=== PATIENT | female | born 1960 | race Caucasian/White ===

== ENCOUNTER 2021-11-21 12:22 | Emergency (ER) | payer MEDICARE, BC, SELFPAY ==
[2021-11-21 12:34] VITALS: BP 110/63; PULSE 63; RESP 16; TEMP 36.3; O2SAT 98; BMI 22.2
--- NOTE | 2021-11-21 13:24 | CRLHL7_ITS ---
For Patients: As a result of the Century Cures Act, medical imaging exams and procedure reports are released immediately into your electronic medical record. You may view this report before your referring provider. If you have questions, please contact your health care provider. Indication: Trauma. Technique: Left foot, 3 views. Comparison: None. Findings: Bones: Nondisplaced oblique fracture through the proximal 4th phalanx. No apparent extension to the articular surfaces. Joint spaces: Unremarkable. Soft tissues: Soft tissue swelling surrounding the fracture site.. Impression: Oblique nondisplaced fracture of the 4th proximal phalanx. Dictated by Lela Edmond MD @ 11/21/2021 2:02:26 PM (Electronically Signed)
--- NOTE | 2021-11-21 13:29 | ED.GENADULT ---
HPI - General Adult General Time Seen by Provider: 13:30 Date Seen: 11/21/21 Chief complaint: Extremity Pain/Injury, Lower Stated complaint: poss broken left foot Time Seen by Provider: 11/21/21 12:24 Source: patient Mode of arrival: ambulatory Limitations: no limitations History of Present Illness HPI narrative: Patient is a 61-year-old female who ran in to a wheelchair wheel with her left foot. Has some pain in her toes 2nd 3rd and 4th, but mostly in her distal top of her foot. This happened a couple hours ago. Presents to the ED for evaluation. No other injuries. No history of foot injury Related Data Home Medications Medication Instructions Recorded Confirmed clobetasol 0.05 % topical ointment TOPICAL 11/21/21 diclofenac sodium 1 % topical gel TOPICAL 11/21/21 estradiol 0.01% (0.1 mg/gram) VAGINAL 11/21/21 vaginal cream estradiol 0.5 mg tablet mg 11/21/21 liothyronine 5 mcg tablet mcg 11/21/21 trazodone 50 mg tablet mg 11/21/21 Allergies Allergy/AdvReac Type Severity Reaction Status Date / Time goldshots Allergy Severe Anaphylaxis Uncoded 11/21/21 12:52 Review of Systems Status of ROS: Reports: other Narrative: Negative for foot injury, open wound, nonhealing, skin problems. PFSH PFSH Social History Smoking Status: Never smoker Do you use any of these nicotine containing products: None Second hand tobacco smoke exposure: No How often do you have a drink containing alcohol: monthly or less How many standard drinks containing alcohol do you have on a typical day: 1 or 2 How often do you have six or more drinks on one occasion: Never AUDIT-C Alcohol total score: 1 Non-prescribed substance use: denies use service: No Exam Narrative: Exam Narrative: Objective: Patient has some mild tenderness over 2nd 3rd and 4th toe on the left no open wounds no bruising some mild tenderness over the dorsum of her foot., range of motion of the ankle is normal Const: Vital Signs, click to edit/add: Vital Signs - 24 hr 11/21/21 12:34 Temperature 97.3 F L Pulse Rate [Left R adial] 63 Respiratory Rate 16 Blood Pressure [Le ft Upper Arm] 110/63 Pulse Oximetry 98 Course Course Hospital Course: X-ray left foot Vital Signs Vital signs: Initial Vital Signs Temperature 97.3 F L 11/21/21 12:34 Temperature Source Temporal Artery Scan 11/21/21 12:34 Pulse Rate 63 11/21/21 12:34 Pulse Rhythm 11/21/21 12:34 Respiratory Rate 16 11/21/21 12:34 Blood Pressure 110/63 11/21/21 12:34 Blood Pressure Mean 78 11/21/21 12:34 Blood Pressure Position Sitting 11/21/21 12:34 Pulse Oximetry 98 11/21/21 12:34 Oxygen Delivery Method 11/21/21 12:34 Vital Signs Temperature 97.3 F L 11/21/21 12:34 Pulse Rate 63 11/21/21 12:34 Respiratory Rate 16 11/21/21 12:34 Blood Pressure 110/63 11/21/21 12:34 Pulse Oximetry 98 11/21/21 12:34 Temperature 97.3 F L 11/21/21 12:34 Pulse Rate 63 11/21/21 12:34 Respiratory Rate 16 11/21/21 12:34 Blood Pressure 110/63 11/21/21 12:34 Pulse Oximetry 98 11/21/21 12:34 Medical Decision Making MDM Narrative Medical decision making narrative: The patient has an x-ray that by my read shows a 4th proximal phalangeal fracture oblique. Nondisplaced. Would recommend crutches, firm soled shoe, recheck with primary care within the next week. Ortho referral as needed. Advil and Tylenol as needed Discharge Plan Discharge Clinical Impression: Foot injury, Closed fracture of phalanx of foot Patient Disposition: Home, Self-Care Condition: Stable Instructions: Crutch Instructions (ED), Toe Fracture (ED) Additional Instructions: Crutch walking as necessary, icing the affected area 2 to 3 times a day, Advil and Tylenol as needed, recheck with primary care in the next 5-7 days Activity Level: Light activity and Use Crutches Discharge Diet: Regular Prescriptions: No Action trazodone 50 mg tablet 0RF liothyronine 5 mcg tablet 0RF estradiol 0.5 mg tablet 0RF clobetasol 0.05 % ointment TOPICAL 0RF estradiol 0.01 % (0.1 mg/gram) cream VAGINAL 0RF diclofenac sodium 1 % gel TOPICAL 0RF Follow Up/Referrals: Nivia Bruno MD [Primary Care Provider] - Stand Alone Forms: [place] [employer] Info Instructions
[2021-11-21 14:42] LABS: SARS PCR* Negative SARS-CoV-2 (Negative)
== END 2021-11-21 14:32 | disposition home or self-care (01) ==
PROVIDERS: Emergency Provider Family Medicine; PCP Family Medicine
DX: S92.515A Nondisplaced fracture of proximal phalanx of left lesser toe(s), initial encounter for closed fracture (principal); W31.89XA Contact with other specified machinery, initial encounter
CPT/HCPCS: 73630; 87635; 99283

== ENCOUNTER 2021-11-27 11:08 | Outpatient (CLI) | payer MEDICARE, BC, SELFPAY | END 2021-11-27 11:09 | disposition home or self-care (01) | PROVIDERS: PCP Family Medicine; Visit Provider Family Medicine | DX: M51.36 Other intervertebral disc degeneration, lumbar region (principal); M54.16 Radiculopathy, lumbar region | CPT/HCPCS: 62323; J0702; Q9966 ==

== ENCOUNTER 2021-12-07 17:05 | Inpatient (IN) | payer MEDICARE, BC, SELFPAY ==
[2021-12-07 17:17] VITALS: BP 107/68; PULSE 85; RESP 18; TEMP 36.1; O2SAT 100; BMI 22.2
--- NOTE | 2021-12-07 17:29 | ED_ITS ---
HPI - General Adult General Time Seen by Provider: 17:29 Date Seen: 12/07/21 Chief complaint: Nausea/Vomiting Stated complaint: weakness Time Seen by Provider: 12/07/21 17:10 Source: patient History of Present Illness HPI narrative: Juliette is a 61-year-old female past medical history includes depression anxiety, chronic pain syndrome, fibromyalgia, C diff and diverticulitis, constipation, rheumatoid arthritis presents emerged department via private car with nausea vomiting. Patient states that 2 nights ago she developed some increased diarrhea, 4-5 times, watery nonbloody, as well as left lower quadrant abdominal pain, pain is been constant nonradiating, her oral intake has decreased due to this and she has become more weak, she denies any urinary complaints. Denies any fevers or chills, no upper respiratory complaints. She did vomit an hour and a half ago. Pain is 5/10. Constant dull and feels like her diverticulitis in the past. He has not taken anything for it. Due to the worsening weakness she presents emerged department. Related Data Home Medications Medication Instructions Recorded Confirmed clobetasol 0.05 % topical ointment 1 applic topical .qod 11/21/21 12/07/21 estradiol 0.5 mg tablet 0.5 mg PO DAILY 11/21/21 12/07/21 liothyronine 5 mcg tablet 5 mcg PO .B.i.d. 11/21/21 12/07/21 trazodone 50 mg tablet 50 mg PO HS 11/21/21 12/07/21 lorazepam 0.5 mg tablet 0.5 mg PO Q12H PRN 12/08/21 12/08/21 melatonin 3 mg capsule 9 mg PO HS 12/08/21 12/08/21 sertraline 25 mg tablet 25 mg PO Q24H 12/08/21 12/08/21 Previous Rx's Medication Instructions Recorded Lactobacillus acidophilus 0.5 mg 1 tab PO TIDWM 90 days #90 tabs 12/10/21 (100 million cell) tablet hydromorphone 2 mg tablet 2 mg PO Q4H PRN 5 days #30 tabs 12/10/21 ondansetron 4 mg disintegrating 4 mg PO Q6H PRN nausea and 12/10/21 tablet vomiting #10 tabs Allergies Allergy/AdvReac Type Severity Reaction Status Date / Time auranofin Allergy Verified 11/27/21 11:42 cat dander Allergy Verified 11/27/21 11:42 Gadolinium-Containing Allergy Verified 11/27/21 11:43 Contrast Medi gluten Allergy Verified 11/27/21 11:42 gold keratinate Allergy Verified 11/27/21 11:42 gold sodium thiomalate Allergy Verified 11/27/21 11:42 lactose Allergy Verified 11/27/21 11:42 Opioids - Morphine Analogues Allergy Verified 11/27/21 11:42 goldshots Allergy Severe Anaphylaxis Uncoded 11/21/21 12:52 Review of Systems Status of ROS: Reports: 10 or more systems reviewed and unremarkable except as noted in History and below [facility] Medical History (Updated 12/18/21 @ 00:01 by ) Anxiety Chronic fatigue syndrome Depression Diverticulitis of intestine with abscess History of Clostridioides difficile colitis History of femur fracture Hypothyroidism Insomnia Juvenile rheumatoid arthritis Left elbow pain Migraines Osteoporosis Sarcoidosis Sensorineural hearing loss (SNHL) of both ears Sigmoid diverticulitis Surgical History (Updated 12/09/21 @ 10:53 by Patricia Myles MD) History of bilateral knee arthroplasty History of hysterectomy History of repair of rotator cuff History of tonsillectomy History of total hip arthroplasty S/P hammer toe correction Family History (Updated 12/09/21 @ 10:53 by Patricia Myles MD) Father High blood pressure Hyperlipidemia Mother High blood pressure Hyperlipidemia Sister Seizure disorder Social History (Updated 12/07/21 @ 23:34 by Regan Mo MD) Narrative: She lives alone in [place]. 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 She does not smoke. She drinks alcohol about once a month. She uses no recreational drugs. She does have a history of chemical dependency. Healthcare power of night monitor is her sister Denise. Code status is full. Highest level of school completed/degree received: Master's degree Smoking Status: Never smoker Do you use any of these nicotine containing products: None Second hand tobacco smoke exposure: No How often do you have a drink containing alcohol: monthly or less How many standard drinks containing alcohol do you have on a typical day: 1 or 2 How often do you have six or more drinks on one occasion: Never AUDIT-C Alcohol total score: 1 Non-prescribed substance use: denies use Caffeine: Yes (coffee 3x weekly) service: No Exam Narrative: Exam Narrative: General: Nontoxic in appearance, no apparent distress HEENT: Pupils equal round reactive to light, extraocular muscles intact Lungs: Clear to auscultation bilaterally Heart: S1-S2, normal sinus rhythm Abdomen: Soft, she has tenderness to palpation in the left lower quadrant, she has no rebound or guarding, bowel sounds normal Extremities: +5 strength upper and lower extremities Neuro: Alert awake and oriented x3 Const: Vital Signs, click to edit/add: Vital Signs - 24 hr 12/07/21 17:17 Temperature 96.9 F L Pulse Rate [Pulse Oximeter] 85 Respiratory Rate 18 Blood Pressure [Ri ght Upper Arm] 107/68 Pulse Oximetry 100 Course Course Hospital Course: 5:30PM: AIDET, vitals are stable at this time, workup will include IV peripheral, 0.9 normal saline bolus, 4 mg IV Zofran, 50 mg IV Toradol for her nausea and pain, will obtain CBC, CRP, CMP and lipase, will await lab results to see if further imaging will be obtained, patient was in agreement. Differential diagnosis include but not limited to viral gastroenteritis, COVID, food poisoning, gastritis, pancreatitis hepatitis diverticulitis, cholecystitis appendicitis diverticulitis, irritable bowel syndrome as well as other etiologies Reevaluation(s) Reevaluation #1: Patient updated on her lab results, COVID test negative, CBC did not show any leukocytosis however did show increased neutrophils 91.8% and neutrophil number 8.9, CRP elevated some 7.8, concerning for infection, metabolic panel otherwise within normal limits, lipase negative. Once CT results of C diff toxin will give her dose of ceftriaxone 1 g and 500 mg IV Flagyl for suspected diverticulitis based on exam and labs, may consider CT imaging. patient was in agreement, pain has been controlled. Time: 19:26 Reevaluation #2: Will obtain CT abdomen pelvis with IV contrast rule out diverticulitis, discussed risks involved, patient has had previous CT's, plan was to to empirically treat with oral antibiotics based on her previous history and lab findings. Pain has been controlled. Patient to receive 0.5 mg IV Dilaudid for her ongoing pain. Time: 20:18 Reevaluation #3: Patient updated on her imaging results: CT of the abdomen shows new prominent diverticulitis of the mid sigmoid colon with a 1.1 centimeter diverticular abscess projecting laterally. No sign of perforation of the abscess. Stable severe sigmoid diverticulosis with no additional diverticulitis. Again seen are changes of hysterectomy. CT of the abdomen shows resolution of the previously seen minimal residual inflammatory changes of diverticulitis previously seen involving the superior descending colon. No change in moderate diverticulosis of the left colon. New moderate T12 compression fracture. Due to findings and ongoing pain plan to admit for inpatient cares, patient was in agreement. Call made to Dr. Mo hospitalist on-call and he accepts care of the patient [facility] [place] [facility]. Vital Signs Vital signs: Initial Vital Signs Temperature 96.9 F L 12/07/21 17:17 Temperature Source Temporal Artery Scan 12/07/21 17:17 Pulse Rate 85 12/07/21 17:17 Respiratory Rate 18 12/07/21 17:17 Blood Pressure 107/68 12/07/21 17:17 Blood Pressure Mean 81 12/07/21 17:17 Blood Pressure Position Supine 12/07/21 17:17 Pulse Oximetry 100 12/07/21 17:17 Oxygen Delivery Method 12/07/21 17:17 Vital Signs Temperature 96.9 F L 12/07/21 17:17 Pulse Rate 85 12/07/21 17:17 Respiratory Rate 18 12/07/21 17:17 Blood Pressure 107/68 12/07/21 17:17 Pulse Oximetry 100 12/07/21 17:17 Oxygen Delivery Method 12/07/21 17:17 Temperature 98.2 F 12/10/21 15:00 Pulse Rate 78 12/10/21 15:00 Respiratory Rate 18 12/10/21 15:00 Blood Pressure 105/1 L 12/10/21 15:00 Pulse Oximetry 99 12/10/21 15:00 Oxygen Delivery Method 12/10/21 15:00 Medical Decision Making Lab Data Labs: Lab Results 12/07/21 12/07/21 12/07/21 Range/Units 18:05 18:05 18:05 WBC 9.70 (4.50-11.00) K/uL RBC 5.07 (4.00-5.20) m/uL Hgb 15.3 (12.0-16.0) gm/dL Hct 46.1 (33.0-51.0) % MCV 91 (80-100) fL MCH 30 (26-34) pg MCHC 33 (32-36) gm/dL RDW Coeff of Chuck 12.6 (11.5-15.5) % Plt Count 200 (140-440) K/uL Neut % (Auto) 91.8 H (42.0-72.0) % Lymph % (Auto) 4.4 L (20-44) % Hitchcock % (Auto) 2.9 (0.0-11.0) % Eos % (Auto) 0.6 (0.0-7.0) % Baso % (Auto) 0.1 (0.0-3.0) % Neut # (Auto) 8.90 H (1.7-7.0) K/uL Lymph # (Auto) 0.40 L (0.90-2.90) K/uL Hitchcock # (Auto) 0.30 (0.00-0.90) K/UL Eos # (Auto) 0.06 (0.00-0.50) K/uL Baso # (Auto) 0.01 (0.00-0.30) K/uL Abs Immat Gran (auto) 0.02 (0.00-0.30) K/uL Sodium 137 (135-149) mmol/L Potassium 3.7 (3.6-5.1) mmol/L Chloride 109 (96-114) mmol/L Carbon Dioxide 21 (20-32) mmol/L BUN 17 (7-30) mg/dL Creatinine 0.7 (0.5-1.5) mg/dL Estimated Creat Clear 60.96 Estimated GFR 98 ml/min Glucose 127 H (60-115) mg/dL Calcium 8.3 L (8.4-10.6) mg/dL Total Bilirubin 0.6 (0.1-1.5) mg/dL AST 27 (12-35) U/L ALT 22 (4-35) U/L Alkaline Phosphatase 81 (40-150) U/L C-Reactive Protein 7.8 H (0.5-1.0) mg/dL Total Protein 6.8 (6.0-8.3) g/dL Albumin 3.8 (3.3-5.0) g/dL Lipase 62 (23-300) U/L Stl C.difficile Tox PCR (Negative) St C. diff Tox Epid 027 (Negative) SARS-CoV-2 (PCR) Negative SARS-CoV-2 (Negative) 12/07/21 Range/Units 18:05 WBC (4.50-11.00) K/uL RBC (4.00-5.20) m/uL Hgb (12.0-16.0) gm/dL Hct (33.0-51.0) % MCV (80-100) fL MCH (26-34) pg MCHC (32-36) gm/dL RDW Coeff of Chuck (11.5-15.5) % Plt Count (140-440) K/uL Neut % (Auto) (42.0-72.0) % Lymph % (Auto) (20-44) % Hitchcock % (Auto) (0.0-11.0) % Eos % (Auto) (0.0-7.0) % Baso % (Auto) (0.0-3.0) % Neut # (Auto) (1.7-7.0) K/uL Lymph # (Auto) (0.90-2.90) K/uL Hitchcock # (Auto) (0.00-0.90) K/UL Eos # (Auto) (0.00-0.50) K/uL Baso # (Auto) (0.00-0.30) K/uL Abs Immat Gran (auto) (0.00-0.30) K/uL Sodium (135-149) mmol/L Potassium (3.6-5.1) mmol/L Chloride (96-114) mmol/L Carbon Dioxide (20-32) mmol/L BUN (7-30) mg/dL Creatinine (0.5-1.5) mg/dL Estimated Creat Clear Estimated GFR ml/min Glucose (60-115) mg/dL Calcium (8.4-10.6) mg/dL Total Bilirubin (0.1-1.5) mg/dL AST (12-35) U/L ALT (4-35) U/L Alkaline Phosphatase (40-150) U/L C-Reactive Protein (0.5-1.0) mg/dL Total Protein (6.0-8.3) g/dL Albumin (3.3-5.0) g/dL Lipase (23-300) U/L Stl C.difficile Tox PCR Negative (Negative) St C. diff Tox Epid 027 Presumptive Negative (Negative) SARS-CoV-2 (PCR) (Negative) Discharge Plan Discharge Clinical Impression: Diverticulitis of intestine with abscess, Closed T12 fracture Condition: Stable Activity Level: No Restrictions and Activity as Tolerated Discharge Diet: Low Fiber Diet Detail: For next 2 weeks, low fiber diet. 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 Prescriptions: New hydromorphone 2 mg Tablet 2 mg PO Q4H PRN5 Days Qty: 30 0RF Lactobacillus acidophilus 0.5 mg (100 million cell) Tablet 1 tab PO TIDWM 90 Days Qty: 90 0RF ondansetron 4 mg tablet,disintegrating 4 mg PO Q6H PRN (Reason: nausea and vomiting) Qty: 10 0RF Continued trazodone 50 mg tablet 50 mg PO HS liothyronine 5 mcg tablet 5 mcg PO .B.i.d. estradiol 0.5 mg tablet 0.5 mg PO DAILY clobetasol 0.05 % ointment 1 applic TOPICAL .qod lorazepam 0.5 mg tablet 0.5 mg PO Q12H PRN melatonin 3 mg capsule 9 mg PO HS sertraline 25 mg tablet 25 mg PO Q24H Follow Up/Referrals: Nivia Bruno MD [Primary Care Provider] -
[2021-12-07] MEDS: 0.9 % SODIUM CHLORIDE 1000 ml 1,000 ML IV (18:10)
[2021-12-07] MEDS: ONDANSETRON 2 MG/ML inj 4 MG IVP (18:11)
[2021-12-07] MEDS: KETOROLAC 15 MG/ML inj IVP (18:12)
[2021-12-07 18:20] LABS: Basophils Absolute Auto 0.01 K/uL (0.00-0.30); Basophils Percent Auto 0.1 % (0.0-3.0); Eosinophils Absolute Auto 0.06 K/uL (0.00-0.50); Eosinophils Percent Auto 0.6 % (0.0-7.0); Hematocrit 46.1 % (33.0-51.0); Hemoglobin* 15.3 gm/dL (12.0-16.0); Immature Granulocytes Abs Auto 0.02 K/uL (0.00-0.30); Lymphocytes Percent Auto 4.4 % (20-44); Mean Corpuscular HGB Conc 33 gm/dL (32-36); Mean Corpuscular Hemoglobin 30 pg (26-34); Mean Corpuscular Volume 91 fL (80-100); Monocytes Percent Auto 2.9 % (0.0-11.0); Neutrophils Percent Auto 91.8 % (42.0-72.0); Platelet Count* 200 K/uL (140-440); RDW Coefficient of Variation % 12.6 % (11.5-15.5); Red Blood Count 5.07 m/uL (4.00-5.20)
--- NOTE | 2021-12-07 18:28 | PC.NURSE ---
pt has had 2 foul smelling stools since arrival, no vomiting
[2021-12-07 18:29] LABS: Slide Review Reflex No
[2021-12-07 19:05] LABS: Albumin* 3.8 g/dL (3.3-5.0); Chloride* 109 mmol/L (96-114); Sodium* 137 mmol/L (135-149)
[2021-12-07 19:06] LABS: Potassium* 3.7 mmol/L (3.6-5.1)
[2021-12-07 19:07] LABS: Creatinine* 0.7 mg/dL (0.5-1.5); Est. Creatinine Clearance* 60.96; Estimated Glomerular Filt Rate 98 ml/min
[2021-12-07 19:08] LABS: Alanine Aminotransferase* 22 U/L (4-35); Alkaline Phosphatase* 81 U/L (40-150); Aspartate Amino Transferase* 27 U/L (12-35); Bilirubin Total* 0.6 mg/dL (0.1-1.5); Blood Urea Nitrogen* 17 mg/dL (7-30); Calcium* 8.3 mg/dL (8.4-10.6); Carbon Dioxide* 21 mmol/L (20-32); Glucose* 127 mg/dL (60-115); Lipase* 62 U/L (23-300); Total Protein* 6.8 g/dL (6.0-8.3)
[2021-12-07 19:11] LABS: C Reactive Protein* 7.8 mg/dL (0.5-1.0)
[2021-12-07 19:19] LABS: SARS PCR* Negative SARS-CoV-2 (Negative)
[2021-12-07] MEDS: metroNIDAZOLE 500 MG/100 ML PIGGYBACK IVPB (19:47)
[2021-12-07] MEDS: cefTRIAXone 1 GM in 0.9 % SODIUM CHLORIDE Mini-bag 100 ML IVPB (19:49)
--- NOTE | 2021-12-07 20:06 | CRLHL7_ITS ---
For Patients: As a result of the Century Cures Act, medical imaging exams and procedure reports are released immediately into your electronic medical record. You may view this report before your referring provider. If you have questions, please contact your health care provider. INDICATION: Left lower quadrant pain. COMPARISON: CT of the abdomen and pelvis from 06/09/2020. TECHNIQUE: CT examination of the abdomen and pelvis was performed with the uneventful intravenous administration of 74 cc of Isovue 370 while 3 mm thick axial sections were obtained from the lung bases through the pubic symphysis. Oral contrast was not administered. Please note that all CT scans at this facility use dose modulation, iterative reconstruction, and/or weight-based dosing when appropriate to reduce radiation dose to as low as reasonably achievable. FINDINGS: In the abdomen, the liver, spleen, pancreas, and adrenals are normal in appearance. Again seen is the 2.4 centimeters cyst in the lower pole of the left kidney. A few tiny cortical cysts are again seen in both kidneys. The kidneys are otherwise normal in appearance. The gallbladder is normal in appearance. The abdominal aorta is normal in caliber with no sign of dilatation. There is no sign of retroperitoneal mass or adenopathy. The stomach, loops of small bowel, and right colon in the abdomen are normal in appearance. There is stable moderate diverticulosis of the colon in the splenic flexure and of the descending colon. There is complete resolution of previously seen mild inflammatory changes of the superior descending colon from previously seen minimal residual diverticulitis. In the pelvis, the appendix is nonvisualized, but there is no sign of an inflammatory process in the area of the appendix. There is new prominent inflammatory stranding of the midportion of the sigmoid colon with a small abscess projecting laterally measuring 1.1 centimeters in diameter on axial image 112 series 2. This is consistent with severe diverticulitis with a small diverticular abscess. There is no sign free fluid or extraluminal gas to suggest more perforation. Again seen is severe diverticulosis of the sigmoid colon. The loops of small bowel and rectum in the pelvis are normal in appearance. Examination of the urinary bladder and inferior pelvis is limited by prominent streak artifacts from a right total hip prosthesis. The uterus is again seen to be absent and the adnexal regions are normal in appearance. The urinary bladder is normal in appearance. There is no sign of pelvic or inguinal mass or adenopathy. There is no sign of free air or free fluid in the abdomen or pelvis. There are small triangular areas of scarring from previous inflammatory disease in the anterior inferior right middle lobe and the lateral left lower lobe at the lung base. There is moderate scoliosis of the superior lumbar spine convex towards the right. There is a new moderate T12 compression fracture. Again seen is severe L4-5 disc degenerative disease related to the scoliosis. The components of a right total hip prosthesis remain in anatomic alignment with no sign of fracture, loosening, or dislocation. There is no sign of fracture of the [place] osseous structures. IMPRESSION: CT of the abdomen shows new prominent diverticulitis of the mid sigmoid colon with a 1.1 centimeter diverticular abscess projecting laterally. No sign of perforation of the abscess. Stable severe sigmoid diverticulosis with no additional diverticulitis. Again seen are changes of hysterectomy. CT of the abdomen shows resolution of the previously seen minimal residual inflammatory changes of diverticulitis previously seen involving the superior descending colon. No change in moderate diverticulosis of the left colon. New moderate T12 compression fracture. Please note that all CT scans at this facility use dose modulation, iterative reconstruction, and/or weight-based dosing when appropriate to reduce radiation dose to as low as reasonably achievable. Dictated by Franky Perrin MD @ 12/07/2021 9:28:12 PM (Electronically Signed)
[2021-12-07 20:56] LABS: C.Difficile Negative (Negative); CDIFFEPI 027 Presumptive Negative (Negative)
[2021-12-07] MEDS: HYDROmorphone 0.5 mg/0.5 ml inj IVP (21:28)
[2021-12-07 22:16] VITALS: BP 124/84; PULSE 85; RESP 18; O2SAT 98
--- NOTE | 2021-12-07 22:27 | W.PC.EDHO ---
Primary Language: Preferred Language: Orientation Status: [X] Alert & Oriented [] Slight Confusion [] Known Dx Dementia Transfers By: [X] Assist of 1 - independent [] Assist of 2 [] Lift Active Medications Generic Name Dose Route Start Last Admin Trade Name Freq PRN Reason Stop Dose Admin Ondansetron HCl 4 mg 12/07/21 17:28 12/07/21 18:11 Ondansetron 2 Mg/Ml Inj IVP 4 mg ONCE PRN Administration Discontinued Medications Generic Name Dose Route Start Last Admin Trade Name Freq PRN Reason Stop Dose Admin Hydromorphone HCl 0.5 mg 12/07/21 21:21 12/07/21 21:28 Hydromorphone 0.5 Mg/0.5 Ml Inj IVP 12/07/21 21:22 0.5 mg ONCE ONE Administration Sodium Chloride 1,000 mls @ 1,000 mls/hr 12/07/21 17:20 12/07/21 20:26 0.9 % Sodium Chloride 1000 Ml IV 12/07/21 18:19 Infused .Q1H SHANNA Infusion Ceftriaxone Sodium 1 gm/ 100 mls @ 200 mls/hr 12/07/21 19:25 12/07/21 20:26 Sodium Chloride IVPB 12/07/21 19:26 Infused ONCE ONE Infusion Ketorolac Tromethamine 15 mg 12/07/21 17:28 12/07/21 18:12 Ketorolac 15 Mg/Ml Inj IVP 12/07/21 17:29 15 mg ONCE ONE Administration Metronidazole 500 mg 12/07/21 19:25 12/07/21 19:47 Metronidazole 500 Mg/100 Ml Piggyback IVPB 12/07/21 19:26 500 mg ONCE ONE Administration Description of Symptoms ED Triage Present Problem c/o of feeling cold, then seating. vomitting and Description diarrhea. symptoms started yesterday. states feels similar to diverticulitis. Pain Pain Description [Left Lower Cramping Abdomen] Pain Intensity [Left Lower 6 Abdomen] Pain Intensity [Left Lower 7 Abdomen] Pain Intensity 3 Pain Intensity 7 Pain Intensity 7 Pain Intensity 4 Pain Intensity 6 Pain Intensity 6 Pain Scale Used [Left Lower Numeric (1 - 10) Abdomen] Pain Scale Used [Left Lower Numeric (1 - 10) Abdomen] Pain Scale Used Numeric (1 - 10) Pain Scale Used Numeric (1 - 10) Pain Scale Used Numeric (1 - 10) Pain Scale Used Numeric (1 - 10) Pain Scale Used Numeric (1 - 10) Pain Scale Used Numeric (1 - 10) IV Insertion/Site Date of IV Line Insertion [ 12/07/21 Right Antecubital] Oxygen Administration Pulse Oximetry 98 Pulse Oximetry 100 Oxygen Delivery Method Room Air Oxygen Delivery Method Room Air
--- NOTE | 2021-12-07 22:35 | PC.NURSE ---
Report to YASMIN Pinedo on M/S
[2021-12-07 23:00] VITALS: PULSE 82; RESP 16
[2021-12-07 23:16] VITALS: BP 119/71; PULSE 82; RESP 16; TEMP 36.9; O2SAT 99; BMI 23.0
[2021-12-07 23:22] VITALS: BP 119/71; PULSE 82; RESP 16; TEMP 36.9; O2SAT 99
--- NOTE | 2021-12-07 23:28 | P.IMHP_ITS ---
Hospitalist- H&P: HPI History of Present Illness Date Seen: 12/07/21 Chief complaint: weakness Narrative: Juliette Brown is a 61 year old female admitted through the emergency department with 2 day history of left lower quadrant abdominal pain. Patient has a history of recurrent sigmoid diverticulitis. She tells me she has had 7 episodes of sigmoid diverticulitis and 2 hospitalizations for sigmoid diverticulitis. Today CT scan shows that she has a 1.1 cm sigmoid abscess as well. No previous history of abscess with diverticulitis. She has not had a fever. She has had diarrhea. She did have 1 emesis this morning. She reports her appetite is markedly decreased. No urinary problems. CT scan incidentally showed a T12 compression fracture that appeared relatively recent. Patient is not had any recent injury and is not having any pain in that area. She has been diagnosed with osteopenia. Review of Systems Narrative: She reports she has otherwise been feeling well except for the last 2 days of illness as above. No other recent illness. No respiratory illness. No cardiac problems. She has had lifelong juvenile rheumatoid arthritis for which she is not currently on treatment. She has also been diagnosed with pulmonary sarcoidosis which is relatively quiescent and also not currently being treated. 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 [facility] Medical History (Updated 12/07/21 @ 23:38 by Regan Mo MD) Anxiety Chronic fatigue syndrome Depression History of Clostridioides difficile colitis History of femur fracture Hypothyroidism Insomnia Juvenile rheumatoid arthritis Left elbow pain Migraines Osteoporosis Sarcoidosis Sensorineural hearing loss (SNHL) of both ears Sigmoid diverticulitis Surgical History (Updated 12/07/21 @ 23:37 by Regan Mo MD) History of bilateral knee arthroplasty History of hysterectomy History of repair of rotator cuff History of tonsillectomy History of total hip arthroplasty Family History (Updated 12/07/21 @ 23:33 by Regan Mo MD) Father High blood pressure Hyperlipidemia Mother High blood pressure Hyperlipidemia Sister Seizure disorder Social History (Updated 12/07/21 @ 23:34 by Regan Mo MD) Narrative: She lives alone in [place]. 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 She does not smoke. She drinks alcohol about once a month. She uses no recreational drugs. She does have a history of chemical dependency. Healthcare power of deputy prosecuting attorney is her sister Denise. Code status is full. Smoking Status: Never smoker Do you use any of these nicotine containing products: None Second hand tobacco smoke exposure: No How often do you have a drink containing alcohol: monthly or less How many standard drinks containing alcohol do you have on a typical day: 1 or 2 How often do you have six or more drinks on one occasion: Never AUDIT-C Alcohol total score: 1 Non-prescribed substance use: denies use service: No Meds Home Medications and Allergies Home Medications Medication Instructions Recorded Confirmed Type clobetasol 0.05 % topical ointment 1 applic TOPICAL .qod 11/21/21 12/07/21 History diclofenac sodium 1 % topical gel TOPICAL 11/21/21 History estradiol 0.01% (0.1 mg/gram) VAGINAL 11/21/21 History vaginal cream estradiol 0.5 mg tablet 0.5 mg PO DAILY 11/21/21 12/07/21 History liothyronine 5 mcg tablet 5 mcg PO .B.i.d. 11/21/21 12/07/21 History trazodone 50 mg tablet 50 mg PO HS 11/21/21 12/07/21 History Allergies Allergy/AdvReac Type Severity Reaction Status Date / Time auranofin Allergy Verified 11/27/21 11:42 cat dander Allergy Verified 11/27/21 11:42 Gadolinium-Containing Allergy Verified 11/27/21 11:43 Contrast Medi gluten Allergy Verified 11/27/21 11:42 gold keratinate Allergy Verified 11/27/21 11:42 gold sodium thiomalate Allergy Verified 11/27/21 11:42 lactose Allergy Verified 11/27/21 11:42 Opioids - Morphine Analogues Allergy Verified 11/27/21 11:42 goldshots Allergy Severe Anaphylaxis Uncoded 11/21/21 12:52 Exam Narrative: Exam Narrative: She is alert and appears in no distress. Eyes are normal. Oropharynx is normal. Neck is supple without mass or adenopathy. Respirations are clear to auscultation. She has no tenderness with palpation or percussion over her T12 vertebrae. No evidence of trauma. Cardiovascular: S1, S2, regular rate and rhythm. No murmur gallop or rub. Abdomen: Bowel sounds active. Abdomen is soft. She has mild diffuse tenderness and moderate left lower quadrant tenderness. No peritonitis. No mass. External genitalia normal. Extremities with intact pulses and sensation. No edema. No rash. Const: Vital Signs, click to edit/add: Vital Signs - 24 hr 12/07/21 17:17 12/07/21 22:16 Temperature 96.9 F L Pulse Rate [Pulse Oximeter] 85 85 Respiratory Rate 18 18 Blood Pressure [Ri ght Upper Arm] 107/68 124/84 Pulse Oximetry 100 98 Documenting provider has reviewed patient's vital signs: yes Hospitalist - H&P: Result Labs Labs: Short CBC 12/07/21 Range/Units 18:05 WBC 9.70 (4.50-11.00) K/uL Hgb 15.3 (12.0-16.0) gm/dL Hct 46.1 (33.0-51.0) % Plt Count 200 (140-440) K/uL BMP 12/07/21 18:05 Sodium 137 Potassium 3.7 Chloride 109 Carbon Dioxide 21 BUN 17 Creatinine 0.7 Glucose 127 H Calcium 8.3 L Liver Function 12/07/21 Range/Units 18:05 Total Bilirubin 0.6 (0.1-1.5) mg/dL AST 27 (12-35) U/L ALT 22 (4-35) U/L Alkaline Phosphatase 81 (40-150) U/L Albumin 3.8 (3.3-5.0) g/dL Imaging CT scan - abdomen: Radiologist's impression: CT of abdomen and pelvis shows prominent findings of sigmoid diverticulitis with a small diverticular abscess of 1.1 cm. No free fluid. Incidentally noted is a new moderate T12 compression fracture. Assessment and Plan Assessment and plan (1) Diverticulitis of intestine with abscess: Problem comment: 7th episode of diverticulitis. Now with perforation and abscess. Surgical consult. With this many recurrences patient is likely to have ongoing recurrences. IV ertapenem inpatient followed by outpatient when clinically improved. Status: Acute (2) Closed T12 fracture: Status: Acute Assessment and Plan: Radiographically appears new but clinically not painful or with recent injury. Raises concerns about osteoporosis.
[2021-12-08] MEDS: TRAZODONE HCL 50 MG TABLET PO ×2 (00:30→21:10)
[2021-12-08] MEDS: MELATONIN 3 MG TABLET 9 MG PO ×2 (00:34→21:11)
[2021-12-08] MEDS: HYDROmorphone 2 MG TABLET PO ×4 (00:35→21:11)
[2021-12-08] MEDS: ERTAPENEM 1 GM in 0.9 % SODIUM CHLORIDE Mini-bag 100 ML IVPB ×2 (00:40→23:05)
[2021-12-08 03:10] VITALS: BP 116/55; PULSE 79; RESP 18; TEMP 37.2; O2SAT 95
--- NOTE | 2021-12-08 06:57 | PC.NURSE ---
END OF SHIFT NOTE: PT PLEASANT AND COOPERATIVE. AMBULATES INDEPENDENTLY. RIGHT AC IV DC?D. NEW #22 GAUGE IV START TO LEFT FOREARM. PT RATES LLQ PAIN 3-6/10 WITH RELIEF FROM?PRN DILAUDID. FIRST DOSE OF INVANZ ABX GIVEN. PT APPEARED ANXIOUS WITH HOSPITALIZATION ADMISSION AND WAS TEARFUL AT TIMES. THERAPEUTIC COMMUNICATION PROVIDED WITH PT. PT CALM AND THANKFUL. PT SLEPT WELL THROUGH NIGHT.
[2021-12-08 07:00] VITALS: BP 118/53; PULSE 71; RESP 18; TEMP 36.7; O2SAT 98
[2021-12-08 07:36] LABS: Basophils Percent Auto 0.2 % (0.0-3.0); Eosinophils Percent Auto 2.3 % (0.0-7.0); Hematocrit 35.6 % (33.0-51.0); Hemoglobin* 11.8 gm/dL (12.0-16.0); Immature Granulocytes Abs Auto 0.01 K/uL (0.00-0.30); Lymphocytes Percent Auto 13.8 % (20-44); Mean Corpuscular HGB Conc 33 gm/dL (32-36); Mean Corpuscular Hemoglobin 30 pg (26-34); Mean Corpuscular Volume 91 fL (80-100); Monocytes Percent Auto 6.3 % (0.0-11.0); Neutrophils Percent Auto 77.2 % (42.0-72.0); Platelet Count* 161 K/uL (140-440); Red Blood Count 3.92 m/uL (4.00-5.20); White Blood Count* 4.29 K/uL (4.50-11.00)
[2021-12-08 07:38] LABS: Slide Review Reflex No
[2021-12-08] MEDS: LACTOBACILLUS ACIDOPHILUS 1 TABLET 1 TAB PO ×3 (07:47→17:53)
[2021-12-08] MEDS: ONDANSETRON 2 MG/ML inj 4 MG IVP (07:48)
[2021-12-08] MEDS: SERTRALINE 50 MG TABLET 25 MG PO (07:48)
[2021-12-08 07:49] LABS: Chloride* 111 mmol/L (96-114)
[2021-12-08 07:50] LABS: Potassium* 3.6 mmol/L (3.6-5.1); Sodium* 137 mmol/L (135-149)
[2021-12-08 07:52] LABS: Creatinine* 0.7 mg/dL (0.5-1.5); Est. Creatinine Clearance* 60.96; Estimated Glomerular Filt Rate 98 ml/min
[2021-12-08 07:53] LABS: Blood Urea Nitrogen* 16 mg/dL (7-30); Calcium* 8.3 mg/dL (8.4-10.6); Carbon Dioxide* 22 mmol/L (20-32); Glucose* 109 mg/dL (60-115)
[2021-12-08 07:56] LABS: C Reactive Protein* 7.2 mg/dL (0.5-1.0)
[2021-12-08] MEDS: estradioL 1 MG TABLET 0.5 MG PO (09:47)
[2021-12-08] MEDS: LORazepam 0.5 MG TABLET PO (09:57)
[2021-12-08 11:00] VITALS: BP 124/60; PULSE 78; RESP 18; TEMP 36.6; O2SAT 96
[2021-12-08] MEDS: ACETAMINOPHEN 325 MG TABLET 650 MG PO (13:37)
[2021-12-08] MEDS: POTASSIUM BICARB 25 MEQ EFFERVESCENT TAB PO (13:50)
[2021-12-08] MEDS: 0.9 % SODIUM CHLORIDE 1000 ml 1,000 ML 125 ML IV (13:51)
--- NOTE | 2021-12-08 14:42 | PC.NURSE ---
Shift NOte: Pt a/o and able to verbalize her needs. Moving well independently. VSS and LS COA. Afebrile. Rates abdominal pain 4-6/10, Dilaudid PO given PRN. Pt also c/o of headache, PRN Tylenol given as well as aromatherapy patch, ice pack, and darkened room. Increased anxiety and ongoing nausea this morning despite Zofran IVP, PRN Ativan 0.5mg given PO. Pt has denied wretching or vomiting at this time. NS initiated 125ml/hr and pt encouraged to increase sips of clear fluids as tolerated.
[2021-12-08 15:00] VITALS: BP 118/79; PULSE 71; RESP 18; TEMP 36.9; O2SAT 97
--- NOTE | 2021-12-08 15:58 | P.IMPN_ITS ---
Progress Note: A&P Assessment and plan (1) Diverticulitis of intestine with abscess: Problem details: 7th episode of diverticulitis. Now with perforation and abscess. Surgical consult. With this many recurrences patient is likely to have ongoing recurrences. IV ertapenem inpatient followed by outpatient when clinically improved. Status: Acute Assessment and Plan: Continue with daily IV ertapenem. Continue with IV and oral opioid analgesics p.r.n.. I hesitate to add a nonsteroidal inflammatory medication at this time. Consider doing so for condition remains stable. Patient agreeable to eventual surgical treatment of this. She recumbent herself to the surgical intervention when it is feasible. (2) Closed T12 fracture: Status: Acute Assessment and Plan: Will need outpatient assessments and interventions per her primary care physician. (3) Anemia: Status: Acute Assessment and Plan: Continue to monitor for now. I suspect part of this is related to a dehydrated state on presentation has since improved. (4) Leukopenia: Status: Acute Assessment and Plan: Etiology not yet determined. Continue to monitor. (5) History of Clostridioides difficile colitis: Status: Acute Assessment and Plan: Continue with probiotic use while in hospital and likely for awhile hereafter. (6) Osteoporosis: Problem details: T12 compression fracture without injury November 2021 Status: Acute Assessment and Plan: Again will need to see primary care physician hereafter. (7) Sensorineural hearing loss (SNHL) of both ears: Problem details: Right ear deaf Status: Acute Assessment and Plan: Be mindful of this. I attempt to speak with her mainly on her left side. She appears to understand and interact appropriately. Plan Reviewed with patient. She expresses understanding. Answer questions satisfaction. Encourage her to ambulate. Time Spent With Patient Total time spent: 30 minutes. Subjective Time Seen by Provider: 08:30 Date Seen: 12/08/21 Interval history: Pain is only slightly improved. Still requiring IV opioids. Still has nausea but no longer has vomiting. Tolerating sips of clear liquids at best. No fever. Admittedly anxious. She tells me that she has been advised to have a partial colon resection in previously due to recurrent diverticulitis. She is fearful that this abscess may still perforate. She does not want to have an ostomy if at all possible. Denies back pain. Recalls falling about 6 weeks ago. No other injuries since then. Exam Narrative: Exam Narrative: Alert, oriented to self, place, time, situation. Articulate. Cooperative. Friendly. Mood and affect are congruent. Lungs are clear to auscultation. Heart tones with regular rhythm. Abdomen with active bowel sounds, soft, with subjective tenderness in the right lower quadrant. No rebound. No guarding. No CVA tenderness. Extremities with no obvious edema. Independent with transfers, station, and gait. No tremor, asterixis, or ataxia. Const: Vital Signs, click to edit/add: Vital Signs - 24 hr 12/07/21 17:17 12/07/21 22:16 12/07/21 23:00 Temperature 96.9 F L Pulse Rate [Pulse Oximeter] 85 85 82 Respiratory Rate 18 18 16 Blood Pressure [Ri ght Arm] Blood Pressure [Ri ght Upper Arm] 107/68 124/84 Pulse Oximetry 100 98 12/07/21 23:16 12/07/21 23:22 12/08/21 03:10 Temperature 98.4 F 98.4 F 98.9 F Pulse Rate [Pulse Oximeter] 82 82 79 Respiratory Rate 16 16 18 Blood Pressure [Ri ght Arm] 119/71 119/71 116/55 L Blood Pressure [Ri ght Upper Arm] Pulse Oximetry 99 99 95 12/08/21 07:00 12/08/21 11:00 Temperature 98.1 F 97.8 F Pulse Rate [Pulse Oximeter] 71 78 Respiratory Rate 18 18 Blood Pressure [Ri ght Arm] 118/53 L 124/60 Blood Pressure [Ri ght Upper Arm] Pulse Oximetry 98 96 Documenting provider has reviewed patient's vital signs: yes Labs Labs: Laboratory Results - last 24 hr 12/07/21 12/07/21 12/07/21 18:05 18:05 18:05 WBC 9.70 RBC 5.07 Hgb 15.3 Hct 46.1 MCV 91 MCH 30 MCHC 33 RDW Coeff of Chuck 12.6 Plt Count 200 Neut % (Auto) 91.8 H Lymph % (Auto) 4.4 L Mckenzie % (Auto) 2.9 Eos % (Auto) 0.6 Baso % (Auto) 0.1 Neut # (Auto) 8.90 H Lymph # (Auto) 0.40 L Mckenzie # (Auto) 0.30 Eos # (Auto) 0.06 Baso # (Auto) 0.01 Abs Immat Gran (auto) 0.02 Sodium 137 Potassium 3.7 Chloride 109 Carbon Dioxide 21 BUN 17 Creatinine 0.7 Estimated Creat Clear 60.96 Estimated GFR 98 Glucose 127 H Calcium 8.3 L Total Bilirubin 0.6 AST 27 ALT 22 Alkaline Phosphatase 81 C-Reactive Protein 7.8 H Total Protein 6.8 Albumin 3.8 Lipase 62 Stl C.difficile Tox PCR St C. diff Tox Epid 027 SARS-CoV-2 (PCR) Negative SARS-CoV-2 12/07/21 12/08/21 12/08/21 18:05 06:45 06:45 WBC 4.29 L RBC 3.92 L Hgb 11.8 L Hct 35.6 MCV 91 MCH 30 MCHC 33 RDW Coeff of Chuck 12.0 Plt Count 161 Neut % (Auto) 77.2 H Lymph % (Auto) 13.8 L Mckenzie % (Auto) 6.3 Eos % (Auto) 2.3 Baso % (Auto) 0.2 Neut # (Auto) 3.30 Lymph # (Auto) 0.60 L Mckenzie # (Auto) 0.30 Eos # (Auto) 0.10 Baso # (Auto) 0.00 Abs Immat Gran (auto) 0.01 Sodium 137 Potassium 3.6 Chloride 111 Carbon Dioxide 22 BUN 16 Creatinine 0.7 Estimated Creat Clear 60.96 Estimated GFR 98 Glucose 109 Calcium 8.3 L Total Bilirubin AST ALT Alkaline Phosphatase C-Reactive Protein 7.2 H Total Protein Albumin Lipase Stl C.difficile Tox PCR Negative St C. diff Tox Epid 027 Presumptive Negative SARS-CoV-2 (PCR)
[2021-12-08 19:45] VITALS: BP 127/53; PULSE 71; RESP 18; TEMP 36.7; O2SAT 98
[2021-12-08 23:00] VITALS: BP 111/48; PULSE 64; RESP 16; TEMP 36.8; O2SAT 96
[2021-12-09] VITALS (7 sets, daily range): BP systolic 104–126; BP diastolic 47–73; PULSE 61–74; RESP 12–18; TEMP 36.3–36.9; O2SAT 94–99
--- NOTE | 2021-12-09 06:23 | PC.NURSE ---
END OF SHIFT NOTE: PT PLEASANT AND COOPERATIVE. DENIES CHEST PAIN, SOB, N/V. PT HAS COMPLETE HEARING LOSS TO RIGHT EAR AND IS [place] TO LEFT. PT TENDS TO SLEEP ON THE LEFT SIDE COVERING LEFT EAR, REQUIRING A GENTLE SHAKE TO AROUSE. AMBULATES INDEPENDENTLY. USES CALL LIGHT APPROPRIATELY. A/O. PT REPORTS PAIN 0-2/10 TO LLQ.?2xBM THIS SHIFT.
[2021-12-09] MEDS: ACETAMINOPHEN 325 MG TABLET 650 MG PO (07:04)
[2021-12-09 07:17] LABS: Basophils Percent Auto 0.2 % (0.0-3.0); Eosinophils Percent Auto 3.6 % (0.0-7.0); Hematocrit 38.1 % (33.0-51.0); Hemoglobin* 12.5 gm/dL (12.0-16.0); Immature Granulocytes Abs Auto 0.01 K/uL (0.00-0.30); Lymphocytes Percent Auto 27.1 % (20-44); Mean Corpuscular HGB Conc 33 gm/dL (32-36); Mean Corpuscular Hemoglobin 30 pg (26-34); Mean Corpuscular Volume 91 fL (80-100); Monocytes Percent Auto 8.5 % (0.0-11.0); Neutrophils Percent Auto 60.4 % (42.0-72.0); Platelet Count* 191 K/uL (140-440); RDW Coefficient of Variation % 11.9 % (11.5-15.5); Red Blood Count 4.19 m/uL (4.00-5.20); White Blood Count* 4.13 K/uL (4.50-11.00)
[2021-12-09 07:18] LABS: Slide Review Reflex No
[2021-12-09 07:33] LABS: Immature Reticulocyte Fraction 5.8 % (3.0-15.9); Reticulocyte Hemoglobin Equivi 26.4 pg (29.0-35.0); Reticulocyte Percent 1.1 % (0.5-2.0); Reticulocytes Absolute 0.05 # (0.03-0.08)
[2021-12-09] MEDS: LORazepam 0.5 MG TABLET PO (07:38)
[2021-12-09] MEDS: LACTOBACILLUS ACIDOPHILUS 1 TABLET 1 TAB PO ×3 (07:38→17:49)
[2021-12-09 07:39] LABS: Albumin* 3.6 g/dL (3.3-5.0); Chloride* 107 mmol/L (96-114); Iron* 46 ug/dL (37-170); Sodium* 138 mmol/L (135-149)
[2021-12-09 07:40] LABS: Potassium* 3.9 mmol/L (3.6-5.1)
[2021-12-09 07:42] LABS: Creatinine* 0.7 mg/dL (0.5-1.5); Est. Creatinine Clearance* 60.96; Estimated Glomerular Filt Rate 98 ml/min
[2021-12-09 07:43] LABS: Alanine Aminotransferase* 27 U/L (4-35); Alkaline Phosphatase* 72 U/L (40-150); Aspartate Amino Transferase* 33 U/L (12-35); Bilirubin Direct* 0.1 mg/dL (0.0-0.5); Bilirubin Total* 0.1 mg/dL (0.1-1.5); Blood Urea Nitrogen* 10 mg/dL (7-30); Calcium* 8.7 mg/dL (8.4-10.6); Carbon Dioxide* 25 mmol/L (20-32); Glucose* 111 mg/dL (60-115); Total Protein* 6.6 g/dL (6.0-8.3)
[2021-12-09 07:46] LABS: C Reactive Protein* 4.1 mg/dL (0.5-1.0)
[2021-12-09 07:49] LABS: Percent Iron Saturation 17 % (20-50); Total Iron Binding Capacity 272 ug/dL (265-497)
[2021-12-09] MEDS: SERTRALINE 50 MG TABLET 25 MG PO (09:17)
[2021-12-09] MEDS: estradioL 1 MG TABLET 0.5 MG PO (09:18)
[2021-12-09] MEDS: ONDANSETRON 2 MG/ML inj 4 MG IVP (09:19)
--- NOTE | 2021-12-09 10:28 | CRLHL7_ITS ---
For Patients: As a result of the Cures Act, medical imaging exams and procedure reports are released immediately into your electronic medical record. You may view this report before your referring provider. If you have questions, please contact your health care provider. INDICATION: Line placement. IMPRESSION: Ultrasound imaging provided for the procedure performed by PICC nurse. Please see procedure notes for discussion. Right basilic PICC placement reported. Dictated by Facundo Jimenez MD @ 12/09/2021 2:05:23 PM (Electronically Signed)
--- NOTE | 2021-12-09 10:45 | PM.GSCN ---
History of Present Illness Consult details Consult date: 12/09/21 Narrative: The patient is a 61-year-old female who presented to the emergency department 2 nights ago with severe left lower quadrant pain. She has a history of multiple episodes of diverticulitis and she states that this is the worst episode she has had so far. She has not had a fever but she has had nausea and vomiting. No urinary symptoms such as dysuria or pneumaturia. She takes a fiber pill to have bowel movements daily. She did not have a bowel movement initially since the pain began however today she had 1. She has a history of diverticulitis episodes in our system 7 previous times ranging back as far as 2004. She did have a small perforation which was contained in 2019. She has had multiple CT scans per year for abdominal pain though not all have shown diverticulitis. She developed C difficile colitis after femur surgery I believe in 2018. Interestingly she had a couple of episodes of diverticulitis around that time though she states that the C diff came from the femur surgery. She has had colonoscopies multiple times. Her initial colonoscopy many years ago did show 1 polyp that she has had normal colonoscopies in 2012 2014 and 2018. She has previously seen a colorectal surgeon Dr. Ceron who advised her years ago to have surgery, however she is very afraid of the thought of a stoma and therefore has postpone surgery. She states that today she feels slightly worse than yesterday however she thinks it is because she did not get IV pain meds. n has been tolerating a clear diet. She states that her pain is worse with activity. She also had some nausea this morning and they had difficulty getting her Zofran because she had a difficult IV start. Review of Systems Status of ROS: Reports: 10 or more systems reviewed and unremarkable except as noted in History and below [facility] Medical History (Updated 12/08/21 @ 16:00 by Richi Seo MD) Anxiety Chronic fatigue syndrome Depression History of Clostridioides difficile colitis History of femur fracture Hypothyroidism Insomnia Juvenile rheumatoid arthritis Left elbow pain Migraines Osteoporosis Sarcoidosis Sensorineural hearing loss (SNHL) of both ears Sigmoid diverticulitis Surgical History (Updated 12/09/21 @ 10:53 by Patricia Myles MD) History of bilateral knee arthroplasty History of hysterectomy History of repair of rotator cuff History of tonsillectomy History of total hip arthroplasty S/P hammer toe correction Family History (Updated 12/09/21 @ 10:53 by Patricia Myles MD) Father High blood pressure Hyperlipidemia Mother High blood pressure Hyperlipidemia Sister Seizure disorder Social History (Updated 12/07/21 @ 23:34 by Regan Mo MD) Narrative: She lives alone in [place]. 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 She does not smoke. She drinks alcohol about once a month. She uses no recreational drugs. She does have a history of chemical dependency. Healthcare power of mergers and acquisitions attorney is her sister Denise. Code status is full. Highest level of school completed/degree received: Master's degree Smoking Status: Never smoker Do you use any of these nicotine containing products: None Second hand tobacco smoke exposure: No How often do you have a drink containing alcohol: monthly or less How many standard drinks containing alcohol do you have on a typical day: 1 or 2 How often do you have six or more drinks on one occasion: Never AUDIT-C Alcohol total score: 1 Non-prescribed substance use: denies use Caffeine: Yes (coffee 3x weekly) service: No Meds Home Medications and Allergies Home Medications Medication Instructions Recorded Confirmed Type clobetasol 0.05 % topical ointment 1 applic TOPICAL .qod 11/21/21 12/07/21 History estradiol 0.5 mg tablet 0.5 mg PO DAILY 11/21/21 12/07/21 History liothyronine 5 mcg tablet 5 mcg PO .B.i.d. 11/21/21 12/07/21 History trazodone 50 mg tablet 50 mg PO HS 11/21/21 12/07/21 History lorazepam 0.5 mg tablet 0.5 mg PO Q12H PRN 12/08/21 12/08/21 History melatonin 3 mg capsule 9 mg PO HS 12/08/21 12/08/21 History sertraline 25 mg tablet 25 mg PO Q24H 12/08/21 12/08/21 History Allergies Allergy/AdvReac Type Severity Reaction Status Date / Time auranofin Allergy Verified 11/27/21 11:42 cat dander Allergy Verified 11/27/21 11:42 Gadolinium-Containing Allergy Verified 11/27/21 11:43 Contrast Medi gluten Allergy Verified 11/27/21 11:42 gold keratinate Allergy Verified 11/27/21 11:42 gold sodium thiomalate Allergy Verified 11/27/21 11:42 lactose Allergy Verified 11/27/21 11:42 Opioids - Morphine Analogues Allergy Verified 11/27/21 11:42 goldshots Allergy Severe Anaphylaxis Uncoded 11/21/21 12:52 Exam Narrative: Exam Narrative: General appearance: Alert, cooperative, and in no distress Eyes: PERRLA, eye lids clear, and sclera white HENT Head: Normocephalic Ears: External ears normal Pulmonary: Breathing nonlabored on room air Cardiovascular Heart: Regular rate Extremities: warm and well perfused Gastrointestinal Abdominal: No scars. No hernias. Very mildly tender to palpation in the left lower quadrant without guarding or rebound. Musculoskeletal: Extremities: Upper: Both upper extremities have normal joint range of motion and intact strength. Skin: Normal skin color, texture, and turgor. No rashes or lesions. Neurologic: No focal deficits Psychiatric: Alert, oriented, cooperative, normal affect. Const: Vital Signs, click to edit/add: Vital Signs - 24 hr 12/08/21 11:00 12/08/21 15:00 12/08/21 19:45 Temperature 97.8 F 98.4 F 98.1 F Pulse Rate [Pulse Oximeter] 78 71 71 Respiratory Rate 18 18 18 Blood Pressure [Ri ght Arm] 124/60 118/79 127/53 L Pulse Oximetry 96 97 98 12/08/21 23:00 12/09/21 03:10 12/09/21 07:00 Temperature 98.3 F 98.3 F 97.9 F Pulse Rate [Pulse Oximeter] 64 61 61 Respiratory Rate 16 16 14 Blood Pressure [Ri ght Arm] 111/48 L 104/47 L 116/59 L Pulse Oximetry 96 94 97 Results Labs Labs: Abnormal lab results 12/09/21 12/09/21 12/09/21 Range/Units 06:52 06:52 06:52 WBC 4.13 L (4.50-11.00) K/uL Retic Hgb Equivalent 26.4 L (29.0-35.0) pg % Saturation (20-50) % C-Reactive Protein 4.1 H (0.5-1.0) mg/dL 12/09/21 Range/Units 06:52 WBC (4.50-11.00) K/uL Retic Hgb Equivalent (29.0-35.0) pg % Saturation 17 L (20-50) % C-Reactive Protein (0.5-1.0) mg/dL Diabetes panel 12/09/21 Range/Units 06:52 Sodium 138 (135-149) mmol/L Potassium 3.9 (3.6-5.1) mmol/L Chloride 107 (96-114) mmol/L Carbon Dioxide 25 (20-32) mmol/L BUN 10 (7-30) mg/dL Creatinine 0.7 (0.5-1.5) mg/dL Glucose 111 (60-115) mg/dL Calcium 8.7 (8.4-10.6) mg/dL AST 33 (12-35) U/L ALT 27 (4-35) U/L Alkaline Phosphatase 72 (40-150) U/L Total Protein 6.6 (6.0-8.3) g/dL Albumin 3.6 (3.3-5.0) g/dL Calcium panel 12/09/21 Range/Units 06:52 Calcium 8.7 (8.4-10.6) mg/dL Albumin 3.6 (3.3-5.0) g/dL Pituitary panel 12/09/21 Range/Units 06:52 Sodium 138 (135-149) mmol/L Potassium 3.9 (3.6-5.1) mmol/L Chloride 107 (96-114) mmol/L Carbon Dioxide 25 (20-32) mmol/L BUN 10 (7-30) mg/dL Creatinine 0.7 (0.5-1.5) mg/dL Glucose 111 (60-115) mg/dL Calcium 8.7 (8.4-10.6) mg/dL Adrenal panel 12/09/21 Range/Units 06:52 Sodium 138 (135-149) mmol/L Potassium 3.9 (3.6-5.1) mmol/L Chloride 107 (96-114) mmol/L Carbon Dioxide 25 (20-32) mmol/L BUN 10 (7-30) mg/dL Creatinine 0.7 (0.5-1.5) mg/dL Glucose 111 (60-115) mg/dL Calcium 8.7 (8.4-10.6) mg/dL Total Bilirubin 0.1 (0.1-1.5) mg/dL AST 33 (12-35) U/L ALT 27 (4-35) U/L Alkaline Phosphatase 72 (40-150) U/L Total Protein 6.6 (6.0-8.3) g/dL Albumin 3.6 (3.3-5.0) g/dL All other labs normal. Imaging CT scan - pelvis: report reviewed and image reviewed (Diagnostic Imaging Report Patient: Juliette Brown MMR#: [id number]: 9Acct:[id number]: EDService Date: 12/07/21Attending Dr: Ordering Physician: Noah Nix M.D. Date of Service: 12/07/21 Procedure(s): CT abdomen pelvis w con Accession Number(s): [id number] cc: Noah Nix) Assessment and Plan Assessment and plan (1) Diverticulitis of intestine with abscess: Problem comment: 7th episode of diverticulitis. Now with perforation and abscess. Surgical consult. With this many recurrences patient is likely to have ongoing recurrences. IV ertapenem inpatient followed by outpatient when clinically improved. Status: Acute (2) Closed T12 fracture: Status: Acute (3) Anemia: Status: Acute (4) Leukopenia: Status: Acute (5) History of Clostridioides difficile colitis: Status: Acute (6) Osteoporosis: Problem comment: T12 compression fracture without injury November 2021 Status: Acute (7) Sensorineural hearing loss (SNHL) of both ears: Problem comment: Right ear deaf Status: Acute Plan The patient is a 61-year-old female with at least 8 episodes of diverticulitis, 2 of them perforated, now with a small abscess and also a history of Clostridium difficile colitis. Clinically she appears to be improving though she does state she has a bit more pain today. She has seen a colorectal surgeon who recommended surgery in the past. She and I discussed that I also recommended she undergo sigmoidectomy because of her history. We discussed that the goal is to avoid emergency surgery and stoma - and for this reason I recommend cooling down the colon with IV antibiotics and proceeding with elective surgery in 2-4 weeks depending on her symptoms and improvement. She has had multiple colonoscopies, most recently in 2019 which was normal. I think for this reason she does not necessarily need a repeat colonoscopy before undergoing surgery. She would prefer to return to see Dr. Ceron for surgery. I recommend that she follow up with him in 1-2 weeks after discharge. I also advised her to continue on a bland diet until her pain is completely gone. I told her that we do perform colon surgery here in [place] would be available to see her if she so desired. In the meantime, she will discharge home on IV ertapenem. A PICC line is going to be placed because of her history of difficult IV start. I explained that she is at risk for recurrent C diff infection which can complicate the situation, so this is all the more reason to remove the diseased portion of her colon. She is agreeable with this plan.
[2021-12-09] MEDS: HYDROCORTISONE 2.5% CREAM 1 APPLIC TOPICAL (12:11)
--- NOTE | 2021-12-09 13:31 | CRLHL7_ITS ---
For Patients: As a result of the Cures Act, medical imaging exams and procedure reports are released immediately into your electronic medical record. You may view this report before your referring provider. If you have questions, please contact your health care provider. INDICATION: PICC line placement. FINDINGS: A single portable chest x-ray shows a right-sided PICC line with the distal tip likely extending into the left brachiocephalic vein. Normal cardiac silhouette. Mildly tortuous aorta. The lungs show no focal pulmonary opacities. Sharp pleural margins. No pneumothorax. IMPRESSION: Right-sided PICC line with the distal tip likely extending into the left brachiocephalic vein. This should be retracted approximately 2-3 cm and a repeat chest x-ray performed to evaluate for more appropriate positioning. Dictated by Kameron David MD @ 12/09/2021 2:12:24 PM Dictated by: Kameron David MD @ 12/09/2021 14:12:34 (Electronically Signed)
--- NOTE | 2021-12-09 13:44 | CRLHL7_ITS ---
For Patients: As a result of the Cures Act, medical imaging exams and procedure reports are released immediately into your electronic medical record. You may view this report before your referring provider. If you have questions, please contact your health care provider. INDICATION: PICC line adjustment. COMPARISON: Chest x-ray dated 09 December 2021 at 1353 hours. FINDINGS: A single portable chest x-ray shows a right-sided PICC line with the distal tip overlying the RA-SVC junction. Normal cardiac silhouette. Mildly tortuous aorta. The lungs show no focal pulmonary opacities. Sharp pleural margins. No pneumothorax. IMPRESSION: Right-sided PICC line readjusted with the distal tip now located over the RA-SVC junction. Dictated by Kameron David MD @ 12/09/2021 2:17:08 PM Dictated by: Kameron David MD @ 12/09/2021 14:17:14 (Electronically Signed)
--- NOTE | 2021-12-09 14:39 | PC.NURSE ---
End of shift: Patient pleasant and cooperative. Patient vitally stable, lungs clear, BS WNL, Anesthesia inserted an IV in right forearm, then PICC nurse removed it. Valved-PICC inserted in right upper arm, C/D/I. Patient independent in room. Patient tolerating liquid diet, urinating, and has had 5 small loose stools. Patient given sitz bath and med for hemorrhoid pain. Zophran and ativan given once this shift. LLQ of abdomen is more firm then right.
[2021-12-09 19:38] LABS: C.Difficile Negative (Negative); CDIFFEPI 027 PRESUMPTIVE NEGATIVE (Negative)
--- NOTE | 2021-12-09 19:38 | PC.NURSE ---
End of shift-- Pt was pleasant and cooperative, alert and oriented. VSS and pt is afebrile. SPO2 maintained >90% on RA. She denied any pain aside from insertion site pain r/t Picc line. LS CTA. Pt has denied nausea and ate a clear liquid diet but has had several small liquid stools this evening. was notified and Cdiff sample was sent to lab. Pt c/o discomfort r/t hemorrhoids and was given a ryley bottle, aloe and tucks pads to try. Report to YASMIN Pinedo.
[2021-12-09] MEDS: TRAZODONE HCL 50 MG TABLET PO (21:58)
[2021-12-09] MEDS: MELATONIN 3 MG TABLET 9 MG PO (21:59)
[2021-12-09] MEDS: ERTAPENEM 1 GM in 0.9 % SODIUM CHLORIDE Mini-bag 100 ML IVPB (23:26)
[2021-12-10 03:00] VITALS: BP 100/52; PULSE 58; RESP 16; TEMP 36.9; O2SAT 98
[2021-12-10] MEDS: ACETAMINOPHEN 325 MG TABLET 650 MG PO (05:45)
[2021-12-10] MEDS: ONDANSETRON 2 MG/ML inj 4 MG IVP (05:45)
[2021-12-10 07:00] VITALS: BP 114/82; PULSE 64; RESP 18; TEMP 36.8; O2SAT 98
[2021-12-10 07:37] LABS: Basophils Percent Auto 0.2 % (0.0-3.0); Eosinophils Percent Auto 2.1 % (0.0-7.0); Hematocrit 35.9 % (33.0-51.0); Hemoglobin* 12.1 gm/dL (12.0-16.0); Immature Granulocytes Abs Auto 0.01 K/uL (0.00-0.30); Lymphocytes Percent Auto 23.3 % (20-44); Mean Corpuscular HGB Conc 34 gm/dL (32-36); Mean Corpuscular Hemoglobin 30 pg (26-34); Mean Corpuscular Volume 89 fL (80-100); Monocytes Percent Auto 6.6 % (0.0-11.0); Neutrophils Percent Auto 67.6 % (42.0-72.0); Platelet Count* 184 K/uL (140-440); RDW Coefficient of Variation % 11.6 % (11.5-15.5); Red Blood Count 4.02 m/uL (4.00-5.20); White Blood Count* 4.38 K/uL (4.50-11.00)
[2021-12-10 07:47] LABS: Slide Review Reflex No
[2021-12-10 07:49] LABS: Chloride* 107 mmol/L (96-114); Potassium* 3.9 mmol/L (3.6-5.1); Sodium* 136 mmol/L (135-149)
[2021-12-10 07:51] LABS: Creatinine* 0.7 mg/dL (0.5-1.5); Est. Creatinine Clearance* 60.96; Estimated Glomerular Filt Rate 98 ml/min
[2021-12-10 07:52] LABS: Blood Urea Nitrogen* 8 mg/dL (7-30); Carbon Dioxide* 27 mmol/L (20-32); Glucose* 116 mg/dL (60-115)
[2021-12-10 07:53] LABS: Calcium* 8.9 mg/dL (8.4-10.6)
[2021-12-10 07:55] LABS: C Reactive Protein* 2.1 mg/dL (0.5-1.0)
--- NOTE | 2021-12-10 08:22 | PC.NURSE ---
END OF SHIFT NOTE: PT PLEASANT AND COOPERATIVE. AMBULATES INDEPENDENTLY. VSS ON RA. PT DENIES CHEST PAIN AND SOB. PT RATED RECTUM DISCOMFORT (D/T MULTIPLE BM'S AND HEMORRHOID) 4/10 THAT WAS RELIEVED WITH A SITZ BATH. C DIFF RESULTS NEGATIVE. PT HAS COMPLETE LOSS OF HEARING IN RIGHT EAR AND IS TRIBE IN LEFT. PT C/O HEADACHE AND NAUSEA THIS AM THAT WAS RELIEVED WITH ACETAMINOPHEN AND ZOFRAN. LSCTA.
[2021-12-10] MEDS: SERTRALINE 50 MG TABLET 25 MG PO (09:01)
[2021-12-10] MEDS: estradioL 1 MG TABLET 0.5 MG PO (09:02)
[2021-12-10] MEDS: HYDROCORTISONE 2.5% CREAM 1 APPLIC TOPICAL (09:02)
[2021-12-10] MEDS: LACTOBACILLUS ACIDOPHILUS 1 TABLET 1 TAB PO ×2 (09:02→11:38)
[2021-12-10 11:00] VITALS: BP 121/71; PULSE 76; RESP 18; TEMP 36.7; O2SAT 99
--- NOTE | 2021-12-10 13:59 | NUTR.NU ---
RDN with verbal MD order for nutrition consult related to diverticulitis. Patient agreed to receive diet education related to diverticulitis without designated caregiver present. Per Patient, patient may be having surgery (possible sigmoidectomy) in the near future. She has seen a colorectal surgeon in the past. Patient was provided diet education on a low fiber diet. Discussed foods to include and foods to avoid until MD recommends advancing to high fiber diet. Recommended patient follow a low-fiber diet for 1-2 weeks until her follow-up appointment. Education also provided on gradually increasing fiber and following a high fiber diet (25-35 grams/day) long-term. Recommended patient to not advance diet to a high-fiber diet until a follow-up with her MD.? Verbal and written information as well as sample menus provided on both diets from AND [facility].?Patient verbalized understanding.? RDN's contact information was provided and patient was encouraged to contact RDN with questions.
[2021-12-10 15:00] VITALS: BP 105/1; PULSE 78; RESP 18; TEMP 36.8; O2SAT 99
[2021-12-10] MEDS: ERTAPENEM 1 GM in 0.9 % SODIUM CHLORIDE Mini-bag 100 ML IVPB (16:08)
--- NOTE | 2021-12-10 16:09 | P.DS_ITS ---
DS: Providers Provider Time Seen by Provider: 14:00 Date Seen: 12/10/21 Date of admission: 12/07/21 22:14 Primary care physician: Nivia Bruno MD Admitting Clinician: Noah Nix MD Consults: 12/07/21 23:22 Consult to Physician [CONS] Routine Comment: Consulting Provider: Patricia Myles Has provider been notified: No Attending Physician on discharge: Richi Seo MD Date of Discharge: 12/10/21 DS: Diagnosis Discharge Diagnosis (1) Abscess of sigmoid colon due to diverticulitis: Status: Acute (2) Diverticulitis of intestine with abscess: Status: Acute Problem details: 7th episode of diverticulitis. Now with perforation and abscess. Surgical consult. With this many recurrences patient is likely to have ongoing recurrences. IV ertapenem inpatient followed by outpatient when clinically improved. (3) Diverticulosis of colon: Status: Acute (4) Poor intravenous access: Status: Acute (5) PICC (peripherally inserted central catheter) in place: Status: Acute (6) Osteoporosis: Status: Acute Problem details: T12 compression fracture without injury November 2021 (7) Leukopenia: Status: Acute (8) Anemia: Status: Acute (9) Closed T12 fracture: Status: Acute (10) History of Clostridioides difficile colitis: Status: Acute (11) Sensorineural hearing loss (SNHL) of both ears: Status: Acute Problem details: Right ear deaf DS: Summary Hospital Course Hospital Course: Juliette Brown is a 61 year old female admitted through the emergency department with 2 day history of left lower quadrant abdominal pain.? Patient has a history of recurrent sigmoid diverticulitis.? She tells me she has had 7 episodes of sigmoid diverticulitis and 2 hospitalizations for sigmoid diverticulitis.? Today CT scan shows that she has a 1.1 cm sigmoid abscess as well.? No previous history of abscess with diverticulitis.? She has not had a fever.? She has had diarrhea.? She did have 1 emesis this morning.? She reports her appetite is markedly decreased.? No urinary problems. CT scan incidentally showed a T12 compression fracture that appeared relatively recent.? Patient is not had any recent injury and is not having any pain in that area.? She has been diagnosed with osteopenia. Treated with ertapenem 1 g IV daily while in hospital. For a while was on IV fluids with sips and chips orally only. Over time we were able to advance her diet. Had nausea and abdominal pain. Treated these with analgesics and antiemetics. For a while was not able to tolerate oral meds and thus gave IV meds. Over time we were able to transition over to oral meds. With supportive cares her ability to eat and drink improved. Pain improved. Status at Discharge Functional status at discharge: independent ambulation Overall status at discharge: patient is progressing back to baseline Time Spent with Patient Time attestation: Total time spent providing and/or coordinating discharge services: Time spent: Greater than 30 minutes Exam Narrative: Exam Narrative: Less anxious. Alert. Oriented to self, place, time, situation. Mood and affect are congruent. Lungs clear to auscultation. Heart tones with regular rhythm. Abdomen is benign. Active bowel sounds. Soft. Nontender. Extremities without edema. Independent transfers, station, and gait. No tremor, asterixis, or ataxia. Skin is warm, dry, intact. Const: Vital Signs, click to edit/add: Vital Signs - 24 hr 12/09/21 16:18 12/09/21 20:00 12/09/21 23:00 Temperature 98.4 F Pulse Rate [Pulse Oximeter] 70 64 62 Respiratory Rate 16 18 18 Blood Pressure [Ri t Arm] 116/55 L Pulse Oximetry 98 Oxygen Delivery Me thod Room Air 12/09/21 23:00 12/10/21 03:00 12/10/21 07:00 Temperature 98.0 F 98.4 F Pulse Rate [Pulse Oximeter] 62 58 L 64 Respiratory Rate 18 16 18 [facility] 121/73 100/52 L Pulse Oximetry 99 98 Oxygen Delivery Ut thod Room Air Room Air 12/10/21 07:00 12/10/21 11:00 12/10/21 15:00 Temperature 98.2 F 98.0 F Pulse Rate [Pulse Oximeter] 64 76 78 Respiratory Rate 18 18 18 Blood Pressure [facility]] 114/82 121/71 Pulse Oximetry 98 [facility] Room Air 12/10/21 15:00 Temperature 98.2 F Pulse Rate [Pulse Oximeter] 78 Respiratory Rate 18 Blood Pressure [Ri t Arm] 105/1 L Pulse Oximetry 99 Oxygen Delivery Me thod Room Air Documenting provider has reviewed patient's vital signs: yes DS: Data Data Completed and Pending Labs on day of discharge: Labs from last 24 hours 12/10/21 12/10/21 12/09/21 07:25 07:25 18:42 WBC 4.38 L RBC 4.02 Hgb 12.1 Hct 35.9 MCV 89 MCH 30 MCHC 34 RDW Coeff of Chuck 11.6 Plt Count 184 Neut % (Auto) 67.6 Lymph % (Auto) 23.3 [place] % (Auto) 6.6 Eos % (Auto) 2.1 Baso % (Auto) 0.2 Neut # (Auto) 3.00 Lymph # (Auto) 1.00 [place] # (Auto) 0.30 Eos # (Auto) 0.10 Baso # (Auto) 0.00 Abs Immat Gran (auto) 0.01 Sodium 136 Potassium 3.9 Chloride 107 Carbon Dioxide 27 BUN 8 Creatinine 0.7 Estimated Creat Clear 60.96 Estimated GFR 98 Glucose 116 H Calcium 8.9 C-Reactive Protein 2.1 H Stl C.difficile Tox PCR Negative St C. diff Tox Epid [address] scan - abdomen: Attestation: I have reviewed the pertinent imaging results. Radiologist's impression: CT of the abdomen shows new prominent diverticulitis of the mid sigmoid colon with a 1.1 centimeter diverticular abscess projecting laterally. No sign of perforation of the abscess. Stable severe sigmoid diverticulosis with no additional diverticulitis. Again seen are changes of hysterectomy. CT of the abdomen shows resolution of the previously seen minimal residual inflammatory changes of diverticulitis previously seen involving the superior descending colon. No change in moderate diverticulosis of the left colon. New moderate T12 compression fracture. Discharge Plan Discharge Disposition: Home, Self-Care Date of Admission: 12/07/21 22:14 Attending Provider on Discharge: Richi Seo Consulting Providers: Patricia Myles Primary Care Provider: Nivia Bruno Condition: Stable Anticipated Discharge Date/Time: 12/10/21 17:30 Discharge Medications: New hydromorphone 2 mg Tablet 2 mg PO Q4H PRN5 Days Qty: 30 0RF Lactobacillus acidophilus 0.5 mg (100 million cell) Tablet 1 tab PO TIDWM 90 Days Qty: 90 0RF ertapenem 1 gram recon soln 1 g IV DAILY 10 Days Qty: 10 0RF ondansetron 4 mg tablet,disintegrating 4 mg PO Q6H PRN (Reason: nausea and vomiting) Qty: 10 0RF Continued trazodone 50 mg tablet 50 mg PO HS liothyronine 5 mcg tablet 5 mcg PO .B.i.d. estradiol 0.5 mg tablet 0.5 mg PO DAILY clobetasol 0.05 % ointment 1 applic TOPICAL .qod lorazepam 0.5 mg tablet 0.5 mg PO Q12H PRN melatonin 3 mg capsule 9 mg PO HS sertraline 25 mg tablet 25 mg PO Q24H Discharge Orders: Discharge Order (Routine); Ordered 12/10/21 Ordered By: Richi Seo Patient Education: Hydromorphone (By mouth), Ondansetron (By mouth) (Zofran, Zofran ODT, Zuplenz), Ertapenem (By injection), Probiotic (By mouth) (Acidophilus Probiotic Blend, Culturelle,..., Diverticulitis Diet (GEN), Perforated Bowel (GEN), How to Care for Your PICC (Peripherally Inserted Central Catheter) (GEN) Activity Restrictions/Additional Instructions: 1. Daily infusion of ertapenem 1 gram IV; 2. PICC cares; 3. follow-up with primary care physician in next week, regarding diverticulitis and new T12 compression fracture; 4. follow-up with your colorectal surgeon in next 1-3 weeks - you need to set up this appointment; 5. Probiotic (need not be the lactobacillus acidophilus written for on your behalf, could be other brand but follow directions) for next 3 months minimum; Activity Level: No Restrictions and Activity as Tolerated Discharge Diet: Low Fiber Diet Detail: For next 2 weeks, low fiber diet. Work with senior technical specialist. Follow Up Appointments: Nivia Bruno MD [Primary Care Provider] - 12/18/21 12:45 am Forms: [employer] App Info Instructions
[2021-12-26 10:47] LABS: Adenovirus PCR Not Detected; Astrovirus PCR Not Detected; Campylobacter PCR Not Detected; Cdiff Toxin A/B PCR Not Detected; Cryptosporidium PCR Not Detected; Cyclospora cayetanensis PCR Not Detected; Entamoeba histolytica PCR Not Detected; Enteroaggregative E coli PCR Not Detected; Enteropathogenic E coli PCR Detected; Enterotoxigenic E coli PCR Not Detected; Giardia lamblia PCR Not Detected; Norovirus Gi/GII PCR Detected; Plesiomonas shig PCR Not Detected; Rotavirus A PCR Not Detected; Salmonella PCR Not Detected; Sapovirus PCR Not Detected; Shiga toxin E coli PCR Not Detected; Shigella/Enteroinvasive E coli Not Detected; Vibrio PCR Not Detected; Vibrio cholerae PCR Not Detected; Yersinia enterocolitica PCR Not Detected
== END 2021-12-10 16:45 | disposition home or self-care (01) | DRG 392 ==
LOC: ED 21:17 → MEDSURG 22:15
PROVIDERS: Family Medicine; Internal Medicine; Admitting Provider Student in an Organized Health Care Education/Training Program; Emergency Provider Student in an Organized Health Care Education/Training Program; PCP Family Medicine; Visit Provider Student in an Organized Health Care Education/Training Program
DX: K57.20 Diverticulitis of large intestine with perforation and abscess without bleeding (principal); M80.88XA Other osteoporosis with current pathological fracture, vertebra(e), initial encounter for fracture; F41.9 Anxiety disorder, unspecified; F32.A Depression, unspecified; E03.9 Hypothyroidism, unspecified; R53.82 Chronic fatigue, unspecified; D64.9 Anemia, unspecified; D72.819 Decreased white blood cell count, unspecified; E86.0 Dehydration; H91.91 Unspecified hearing loss, right ear
CPT/HCPCS: 36415; 36573; 74177; 76937; 80048; 80053; 80076; 83540; 83550; 83690; 85025; 85045; 86140; 87493; 87505; 87506; 87635; 99283; 99284; A9270; C1751; J0696; J1170; J1335; J1885; J2405; J7030; Q9967; S0030

== ENCOUNTER 2021-12-20 14:30 | Outpatient (RCR) | payer MEDICARE, BC, SELFPAY ==
[2021-12-11 15:11] VITALS: BP 94/59; PULSE 73; RESP 16; TEMP 36.5; O2SAT 96
[2021-12-11] MEDS: ERTAPENEM 1 GM inj IVPB (15:23)
[2021-12-12] MEDS: ERTAPENEM 1 GM inj IVPB (14:48)
[2021-12-12] MEDS: SODIUM CHLORIDE 0.9 % (FLUSH) 10 ML SYRINGE IVF (15:41)
[2021-12-12] MEDS: 0.9 % SODIUM CHLORIDE 250 ml IV (15:41)
[2021-12-13 14:51] VITALS: BP 106/69; PULSE 74; RESP 16; TEMP 36.8; O2SAT 99
[2021-12-13] MEDS: SODIUM CHLORIDE 0.9 % (FLUSH) 10 ML SYRINGE IVF (15:13)
[2021-12-13] MEDS: 0.9 % SODIUM CHLORIDE 250 ml IV (15:13)
[2021-12-13] MEDS: ERTAPENEM 1 GM inj IVPB (15:13)
[2021-12-14 14:49] VITALS: BP 107/67; PULSE 71; RESP 16; TEMP 36.3; O2SAT 96
[2021-12-14] MEDS: ERTAPENEM 1 GM inj IVPB (15:09)
--- NOTE | 2021-12-14 16:01 | ONC.NURNOTE ---
patient states lost wrist band in [place]. Ertepenum checked by Kameron HOFFMAN [facility]
[2021-12-15] MEDS: ERTAPENEM 1 GM inj IVPB (14:28)
[2021-12-15] MEDS: 0.9 % SODIUM CHLORIDE 250 ml IV (14:28)
[2021-12-16 14:15] VITALS: BP 116/60; PULSE 70; RESP 16; TEMP 36.6; O2SAT 99
[2021-12-16] MEDS: ERTAPENEM 1 GM inj IVPB (14:18)
[2021-12-16] MEDS: 0.9 % SODIUM CHLORIDE 250 ml IV (14:19)
[2021-12-16] MEDS: SODIUM CHLORIDE 0.9 % (FLUSH) 10 ML SYRINGE IVF ×2 (14:23→15:05)
[2021-12-17 14:45] VITALS: BP 101/67; PULSE 65; RESP 16; TEMP 36.1; O2SAT 97
[2021-12-17] MEDS: ERTAPENEM 1 GM in 0.9 % SODIUM CHLORIDE Mini-bag 100 ML IVPB (15:07)
[2021-12-18 14:45] VITALS: BP 107/66; PULSE 68; RESP 16; TEMP 36.2; O2SAT 99
[2021-12-18] MEDS: ERTAPENEM 1 GM in 0.9 % SODIUM CHLORIDE Mini-bag 100 ML IVPB (15:10)
[2021-12-18] MEDS: 0.9 % SODIUM CHLORIDE 250 ml IV (15:11)
[2021-12-19 15:50] VITALS: BP 113/72; PULSE 75; RESP 16; TEMP 36.4; O2SAT 98
[2021-12-19] MEDS: ERTAPENEM 1 GM in 0.9 % SODIUM CHLORIDE Mini-bag 100 ML IVPB (16:01)
[2021-12-19] MEDS: 0.9 % SODIUM CHLORIDE 250 ml IV (16:48)
[2021-12-19] MEDS: SODIUM CHLORIDE 0.9 % (FLUSH) 10 ML SYRINGE IVF (16:49)
[2021-12-20 15:44] VITALS: BP 111/64; PULSE 76; RESP 16; TEMP 37.1; O2SAT 98
[2021-12-20] MEDS: ERTAPENEM 1 GM in 0.9 % SODIUM CHLORIDE Mini-bag 100 ML IVPB (15:46)
[2021-12-20] MEDS: 0.9 % SODIUM CHLORIDE 250 ml IV (15:47)
[2021-12-20] MEDS: SODIUM CHLORIDE 0.9 % (FLUSH) 10 ML SYRINGE IVF (15:47)
--- NOTE | 2021-12-26 15:14 | ONC.NURNOTE ---
Patient here for PICC DC. Tolerated removal well and instructed on avoiding submersion of area, heavy lifting, and to keep dressing in place for next 24 hours. Patient understanding of this and what to do if site becomes red, swollen, or starts bleeding.
== END 2022-06-09 23:59 | disposition home or self-care (01) ==
LOC: CCIC 14:30
PROVIDERS: PCP Family Medicine; Referring Provider Internal Medicine; Visit Provider Internal Medicine
DX: K57.20 Diverticulitis of large intestine with perforation and abscess without bleeding (principal)
CPT/HCPCS: 36589; 96365; 96374; 97110; 97140; 97165; 97535; 99211; A4221; J1335; J7050

== ENCOUNTER 2022-01-17 12:26 | Emergency (ER) | payer MEDICARE, BC, SELFPAY ==
[2022-01-17 12:41] VITALS: BP 119/66; PULSE 91; RESP 16; TEMP 36.2; O2SAT 96; BMI 22.2
--- NOTE | 2022-01-17 13:07 | ED.GENADULT ---
HPI - General Adult General Time Seen by Provider: 13:08 Date Seen: 01/17/22 Chief complaint: Weakness Stated complaint: Fatigue, dizzy Time Seen by Provider: 01/17/22 12:46 Source: patient, RN notes reviewed and old records reviewed Mode of arrival: ambulatory Limitations: no limitations History of Present Illness HPI narrative: Patient is a very pleasant 61-year-old female coming and with concern of weakness and fatigue that has been present for almost a week now. She has had some mild generalized headache with it. No sore throat she has felt some generalized body aches. No cough or cold symptoms, no abdominal symptoms. No nausea vomiting or diarrhea. She does have a history of C difficile colitis but no abdominal symptoms supporting that with these current issues. She also had a recent episode of diverticulitis with perforation for which she was hospitalized earlier this summer. That has resolved in she will be getting her follow-up colonoscopy on the with a colorectal specialist out of the [facility]. Again she has had no abdominal pain. She has had no documented fevers but has felt chills at times. She had a follow-up CT scan showing resolution of the diverticulitis as well. She notes she had some mild anemia H she is concerned about that. She also is hypothyroid and is concerned that her thyroid level maybe off, endorses that thyroid levels have not been checked any time recently. She is worried about COVID. She does have lichen sclerosis and note some chronic irritation but no vaginal discharge. She did wonder if there could be yeast issues. She is having absolutely no vaginal discharge. I reviewed with her that yeast has a discharged with it and characteristic 1. She is using her topical steroid. No definite known ill contacts. She called the clinic to get in but could not get in for 6 days. She states that she has a lightheaded feeling like she is weak. Is not a spinning sensation. Related Data Home Medications Medication Instructions Recorded Confirmed clobetasol 0.05 % topical ointment 1 applic topical .qod 11/21/21 12/07/21 estradiol 0.5 mg tablet 0.5 mg PO DAILY 11/21/21 12/07/21 liothyronine 5 mcg tablet 5 mcg PO .B.i.d. 11/21/21 12/07/21 trazodone 50 mg tablet 50 mg PO HS 11/21/21 12/07/21 lorazepam 0.5 mg tablet 0.5 mg PO Q12H PRN 12/08/21 12/08/21 melatonin 3 mg capsule 9 mg PO HS 12/08/21 12/08/21 sertraline 25 mg tablet 25 mg PO Q24H 12/08/21 12/08/21 Previous Rx's Medication Instructions Recorded Lactobacillus acidophilus 0.5 mg 1 tab PO TIDWM 90 days #90 tabs 12/10/21 (100 million cell) tablet hydromorphone 2 mg tablet 2 mg PO Q4H PRN 5 days #30 tabs 12/10/21 ondansetron 4 mg disintegrating 4 mg PO Q6H PRN nausea and 12/10/21 tablet vomiting #10 tabs Allergies Allergy/AdvReac Type Severity Reaction Status Date / Time auranofin Allergy Verified 11/27/21 11:42 cat dander Allergy Verified 11/27/21 11:42 Gadolinium-Containing Allergy Verified 11/27/21 11:43 Contrast Medi gluten Allergy Verified 11/27/21 11:42 gold keratinate Allergy Verified 11/27/21 11:42 gold sodium thiomalate Allergy Verified 11/27/21 11:42 lactose Allergy Verified 11/27/21 11:42 Opioids - Morphine Analogues Allergy Verified 11/27/21 11:42 goldshots Allergy Severe Anaphylaxis Uncoded 11/21/21 12:52 Review of Systems Status of ROS: Reports: 10 or more systems reviewed and unremarkable except as noted in History and below PFSH PFSH Medical History Anxiety Chronic fatigue syndrome Depression Diverticulitis of intestine with abscess History of Clostridioides difficile colitis History of femur fracture Hypothyroidism Insomnia Juvenile rheumatoid arthritis Left elbow pain Migraines Osteoporosis Sarcoidosis Sensorineural hearing loss (SNHL) of both ears Sigmoid diverticulitis Surgical History History of bilateral knee arthroplasty History of hysterectomy History of repair of rotator cuff History of tonsillectomy History of total hip arthroplasty S/P hammer toe correction Family History Father High blood pressure Hyperlipidemia Mother High blood pressure Hyperlipidemia Sister Seizure disorder Social History Narrative: She lives alone in [place]. 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 She does not smoke. She drinks alcohol about once a month. She uses no recreational drugs. She does have a history of chemical dependency. Healthcare power of trade mark attorney is her sister Denise. Code status is full. Highest level of school completed/degree received: Master's degree Smoking Status: Never smoker Do you use any of these nicotine containing products: None Second hand tobacco smoke exposure: No How often do you have a drink containing alcohol: monthly or less How many standard drinks containing alcohol do you have on a typical day: 1 or 2 How often do you have six or more drinks on one occasion: Never AUDIT-C Alcohol total score: 1 Non-prescribed substance use: denies use Caffeine: Yes (coffee 3x weekly) service: No Exam Const: Vital Signs, click to edit/add: Vital Signs - 24 hr 01/17/22 12:41 Temperature 97.2 F L Pulse Rate [Pulse Oximeter] 91 Respiratory Rate 16 Blood Pressure [Ri ght Upper Arm] 119/66 Pulse Oximetry 96 Oxygen Delivery Me thod Room Air Documenting provider has reviewed patient's vital signs: yes Common normals: no apparent distress, average body habitus, oriented x3, no limitations, healthy appearing and alert General appearance: cooperative, comfortable, well kempt and anxious (Seems very mildly anxious but definitely pleasant) HENMT: Common normals: normocephalic, head/scalp atraumatic, hearing grossly normal bilaterally, external ears normal, EAC's normal, external nose normal, nasal mucous membranes and turbinates normal, moist oral mucous membranes, oropharynx normal, dentition normal and gingiva normal Head and scalp: normocephalic and atraumatic Nose: external nose normal and nasal mucous membranes and turbinates normal External ear: external ears normal External auditory canal: EAC's normal Eye: Common normals: PERRL, EOMs intact bilaterally, conjunctivae normal and no scleral icterus Conjunctiva: conjunctiva(e) normal Pupil: PERRL Neck & C-Spine: Common normals: full ROM, no lymphadenopathy, supple, no meningeal signs, no JVD and thyroid normal Thyroid: thyroid normal Resp: Common normals: normal respiratory effort, no retractions, no use of accessory muscles and clear to auscultation bilaterally Auscultation: clear to auscultation bilaterally Cardio: Common normals: no JVD, regular rate, regular rhythm, S1 normal heart sound, S2 normal heart sound, no gallops, no clicks, no murmurs and no rub Rate: regular rate Rhythm: regular rhythm Heart sounds: S1 normal and S2 normal GI: Common normals: Normal to inspection, nondistended, normoactive bowel sounds present, soft to palpation, non-tender, no hepatosplenomegaly, no masses and no bruits Palpation: soft and no hepatosplenomegaly Extremity: Common normals: normal to inspection, full ROM, normal capillary refill, no joint enlargement, no clubbing, cyanosis or edema, no calf tenderness and no pedal edema Other: As I was examining patient, she pointed out 3 small bruises along her lower medial tibia that were more yellowish to greenish in resolving. She states she did not know how she got those. She states she has maybe had some calf tenderness on that side. I note no swelling or edema. Neuro: Common normals: oriented x3, CN's II-XII intact bilaterally, moves all extremities, no focal motor deficits, no sensory deficits noted and gait normal Sensorium/orientation: alert Meningeal signs: no meningeal signs Speech: speech normal Psych: Appearance: well kempt Course Course Hospital Course: We will check full complement of labs including urinalysis. This time I do not see any indication for any imaging but will re-evaluate that pending the labs. Patient is hemodynamically stable. Certainly will test her for COVID as well. Reevaluation(s) Reevaluation #1: Reviewed that labs are essentially normal up to this point pending urinalysis and TSH with reflex to T4 if needed. Her C reactive protein and D-dimer normal. Her CBC and hemoglobin are normal. We reviewed that even did a troponin which was negative. She had a sodium of 133 which is just minimally low. Reviewed with her that this would not be enough to make her significantly symptomatic. She states she starting to feel a bit nauseated in requested some saline. She had told me she had been drinking quite well prior. We will initiate 500 mL normal saline and 4 mg IV Zofran. Time: 14:34 Vital Signs Vital signs: Initial Vital Signs Temperature 97.2 F L 01/17/22 12:41 Temperature Source Temporal Artery Scan 01/17/22 12:41 Pulse Rate 91 01/17/22 12:41 Pulse Rhythm 01/17/22 12:41 Respiratory Rate 16 01/17/22 12:41 Blood Pressure 119/66 01/17/22 12:41 Blood Pressure Mean 83 01/17/22 12:41 Pulse Oximetry 96 01/17/22 12:41 Oxygen Delivery Method 01/17/22 12:41 Vital Signs Temperature 97.2 F L 01/17/22 12:41 Pulse Rate 91 01/17/22 12:41 Respiratory Rate 16 01/17/22 12:41 Blood Pressure 119/66 01/17/22 12:41 Pulse Oximetry 96 01/17/22 12:41 Oxygen Delivery Method 01/17/22 12:41 Temperature 97.2 F L 01/17/22 12:41 Pulse Rate 91 01/17/22 12:41 Respiratory Rate 16 01/17/22 12:41 Blood Pressure 119/66 01/17/22 12:41 Pulse Oximetry 96 01/17/22 12:41 Oxygen Delivery Method 01/17/22 12:41 Medical Decision Making Lab Data Lab results reviewed: Yes I reviewed the patient's lab results Lab results narrative: Did review normal urinalysis and TSH prior to discharge. We will let her know if the urine culture does grow anything. Labs: Lab Results 01/17/22 01/17/22 01/17/22 Range/Units 13:10 13:25 13:25 WBC 5.40 (4.50-11.00) K/uL RBC 4.59 (4.00-5.20) m/uL Hgb 13.6 (12.0-16.0) gm/dL Hct 40.2 (33.0-51.0) % MCV 88 (80-100) fL MCH 30 (26-34) pg MCHC 34 (32-36) gm/dL RDW Coeff of Chuck 11.5 (11.5-15.5) % Plt Count 208 (140-440) K/uL Neut % (Auto) 71.4 (42.0-72.0) % Lymph % (Auto) 20.4 (20-44) % [place] % (Auto) 6.5 (0.0-11.0) % Eos % (Auto) 1.1 (0.0-7.0) % Baso % (Auto) 0.6 (0.0-3.0) % Neut # (Auto) 3.86 (1.7-7.0) K/uL Lymph # (Auto) 1.10 (0.90-2.90) K/uL [place] # (Auto) 0.40 (0.00-0.90) K/UL Eos # (Auto) 0.06 (0.00-0.50) K/uL Baso # (Auto) 0.03 (0.00-0.30) K/uL Abs Immat Gran (auto) 0.00 (0.00-0.30) K/uL D-Dimer Quant (PE/DVT) 0.28 (0.00-0.50) ug/ml Sodium (135-149) mmol/L Potassium (3.6-5.1) mmol/L Chloride (96-114) mmol/L Carbon Dioxide (20-32) mmol/L BUN (7-30) mg/dL Creatinine (0.5-1.5) mg/dL Estimated Creat Clear Estimated GFR ml/min Glucose (60-115) mg/dL Calcium (8.4-10.6) mg/dL Total Bilirubin (0.1-1.5) mg/dL AST (12-35) U/L ALT (4-35) U/L Alkaline Phosphatase (40-150) U/L Troponin I (0.01-0.04) ng/mL C-Reactive Protein (0.5-1.0) mg/dL Total Protein (6.0-8.3) g/dL Albumin (3.3-5.0) g/dL TSH (0.270-4.200) uIU/mL Urine Color Yellow (Yellow) Urine Appearance Clear (Clear) Urine pH 5.5 (5.0-8.5) Ur Specific [place] 1.015 (1.000-1.030) Urine Protein Negative (Negative) Urine Glucose (UA) Negative (Negative) Urine Ketones Negative (Negative) Urine Blood Negative (Negative) Urine Nitrite Negative (Negative) Urine Bilirubin Negative (Negative) Urine Urobilinogen 0.2 (0.2-1.0) Ur Leukocyte Esterase Trace A (Negative) Urine RBC 0-2 (0-2) Urine WBC 0-2 (0-5) Ur Squamous Epith Cells Few (None-Few) Urine Bacteria Few A (None) SARS-CoV-2 (PCR) (Negative) 01/17/22 01/17/22 01/17/22 Range/Units 13:25 13:25 13:25 WBC (4.50-11.00) K/uL RBC (4.00-5.20) m/uL Hgb (12.0-16.0) gm/dL Hct (33.0-51.0) % MCV (80-100) fL MCH (26-34) pg MCHC (32-36) gm/dL RDW Coeff of Chuck (11.5-15.5) % Plt Count (140-440) K/uL Neut % (Auto) (42.0-72.0) % Lymph % (Auto) (20-44) % [place] % (Auto) (0.0-11.0) % Eos % (Auto) (0.0-7.0) % Baso % (Auto) (0.0-3.0) % Neut # (Auto) (1.7-7.0) K/uL Lymph # (Auto) (0.90-2.90) K/uL [place] # (Auto) (0.00-0.90) K/UL Eos # (Auto) (0.00-0.50) K/uL Baso # (Auto) (0.00-0.30) K/uL Abs Immat Gran (auto) (0.00-0.30) K/uL D-Dimer Quant (PE/DVT) (0.00-0.50) ug/ml Sodium 133 L (135-149) mmol/L Potassium 4.3 (3.6-5.1) mmol/L Chloride 101 (96-114) mmol/L Carbon Dioxide 25 (20-32) mmol/L BUN 16 (7-30) mg/dL Creatinine 0.7 (0.5-1.5) mg/dL Estimated Creat Clear 60.96 Estimated GFR 98 ml/min Glucose 116 H (60-115) mg/dL Calcium 9.1 (8.4-10.6) mg/dL Total Bilirubin 0.3 (0.1-1.5) mg/dL AST 27 (12-35) U/L ALT 14 (4-35) U/L Alkaline Phosphatase 65 (40-150) U/L Troponin I < 0.01 L (0.01-0.04) ng/mL C-Reactive Protein < 0.5 L (0.5-1.0) mg/dL Total Protein 7.0 (6.0-8.3) g/dL Albumin 4.4 (3.3-5.0) g/dL TSH (0.270-4.200) uIU/mL Urine Color (Yellow) Urine Appearance (Clear) Urine pH (5.0-8.5) Ur Specific [place] (1.000-1.030) Urine Protein (Negative) Urine Glucose (UA) (Negative) Urine Ketones (Negative) Urine Blood (Negative) Urine Nitrite (Negative) Urine Bilirubin (Negative) Urine Urobilinogen (0.2-1.0) Ur Leukocyte Esterase (Negative) Urine RBC (0-2) Urine WBC (0-5) Ur Squamous Epith Cells (None-Few) Urine Bacteria (None) SARS-CoV-2 (PCR) Negative SARS-CoV-2 (Negative) 01/17/22 Range/Units 13:25 WBC (4.50-11.00) K/uL RBC (4.00-5.20) m/uL Hgb (12.0-16.0) gm/dL Hct (33.0-51.0) % MCV (80-100) fL MCH (26-34) pg MCHC (32-36) gm/dL RDW Coeff of Chuck (11.5-15.5) % Plt Count (140-440) K/uL Neut % (Auto) (42.0-72.0) % Lymph % (Auto) (20-44) % [place] % (Auto) (0.0-11.0) % Eos % (Auto) (0.0-7.0) % Baso % (Auto) (0.0-3.0) % Neut # (Auto) (1.7-7.0) K/uL Lymph # (Auto) (0.90-2.90) K/uL [place] # (Auto) (0.00-0.90) K/UL Eos # (Auto) (0.00-0.50) K/uL Baso # (Auto) (0.00-0.30) K/uL Abs Immat Gran (auto) (0.00-0.30) K/uL D-Dimer Quant (PE/DVT) (0.00-0.50) ug/ml Sodium (135-149) mmol/L Potassium (3.6-5.1) mmol/L Chloride (96-114) mmol/L Carbon Dioxide (20-32) mmol/L BUN (7-30) mg/dL Creatinine (0.5-1.5) mg/dL Estimated Creat Clear Estimated GFR ml/min Glucose (60-115) mg/dL Calcium (8.4-10.6) mg/dL Total Bilirubin (0.1-1.5) mg/dL AST (12-35) U/L ALT (4-35) U/L Alkaline Phosphatase (40-150) U/L Troponin I (0.01-0.04) ng/mL C-Reactive Protein (0.5-1.0) mg/dL Total Protein (6.0-8.3) g/dL Albumin (3.3-5.0) g/dL TSH 0.566 (0.270-4.200) uIU/mL Urine Color (Yellow) Urine Appearance (Clear) Urine pH (5.0-8.5) Ur Specific [place] (1.000-1.030) Urine Protein (Negative) Urine Glucose (UA) (Negative) Urine Ketones (Negative) Urine Blood (Negative) Urine Nitrite (Negative) Urine Bilirubin (Negative) Urine Urobilinogen (0.2-1.0) Ur Leukocyte Esterase (Negative) Urine RBC (0-2) Urine WBC (0-5) Ur Squamous Epith Cells (None-Few) Urine Bacteria (None) SARS-CoV-2 (PCR) (Negative) Discharge Plan Discharge Clinical Impression: Weakness Patient Disposition: Home, Self-Care Condition: Stable Instructions: Weakness (ED) Additional Instructions: We will contact you if the urine culture should grow any bacteria but the urinalysis does not definitively suggest any infection. Need to schedule follow-up with your primary care provider. I can find nothing clinically emergent to intervene upon at this time. If at any point you are worsening, develops specific concerning symptoms, do recommend re-evaluation. Activity Level: Activity as Tolerated Prescriptions: No Action trazodone 50 mg tablet 50 mg PO HS liothyronine 5 mcg tablet 5 mcg PO .B.i.d. estradiol 0.5 mg tablet 0.5 mg PO DAILY clobetasol 0.05 % ointment 1 applic TOPICAL .qod lorazepam 0.5 mg tablet 0.5 mg PO Q12H PRN melatonin 3 mg capsule 9 mg PO HS sertraline 25 mg tablet 25 mg PO Q24H hydromorphone 2 mg Tablet 2 mg PO Q4H PRN5 Days Qty: 30 0RF Lactobacillus acidophilus 0.5 mg (100 million cell) Tablet 1 tab PO TIDWM 90 Days Qty: 90 0RF ondansetron 4 mg tablet,disintegrating 4 mg PO Q6H PRN (Reason: nausea and vomiting) Qty: 10 0RF Follow Up/Referrals: Nivia Bruno MD [Primary Care Provider] - Stand Alone Forms: [facility] [place] Info Instructions
[2022-01-17 13:51] LABS: Basophils Absolute Auto 0.03 K/uL (0.00-0.30); Basophils Percent Auto 0.6 % (0.0-3.0); Eosinophils Absolute Auto 0.06 K/uL (0.00-0.50); Eosinophils Percent Auto 1.1 % (0.0-7.0); Hematocrit 40.2 % (33.0-51.0); Hemoglobin* 13.6 gm/dL (12.0-16.0); Lymphocytes Percent Auto 20.4 % (20-44); Mean Corpuscular HGB Conc 34 gm/dL (32-36); Mean Corpuscular Hemoglobin 30 pg (26-34); Mean Corpuscular Volume 88 fL (80-100); Monocytes Percent Auto 6.5 % (0.0-11.0); Neutrophils Absolute Auto 3.86 K/uL (1.7-7.0); Neutrophils Percent Auto 71.4 % (42.0-72.0); Platelet Count* 208 K/uL (140-440); RDW Coefficient of Variation % 11.5 % (11.5-15.5); Red Blood Count 4.59 m/uL (4.00-5.20)
[2022-01-17 13:58] LABS: Slide Review Reflex No
[2022-01-17 14:04] LABS: Appearance Urine Clear (Clear); Bilirubin Urine Negative (Negative); Blood Urine Negative (Negative); Color Urine Yellow (Yellow); Glucose Urine Negative (Negative); Ketones Urine Negative (Negative); Leukocyte Esterase Urine Trace (Negative); Nitrite Urine Negative (Negative); Protein Urine Negative (Negative); Specific Gravity Urine 1.015 (1.000-1.030); Urobilinogen Urine 0.2 (0.2-1.0); pH Urine 5.5 (5.0-8.5)
[2022-01-17 14:04] LABS: Albumin* 4.4 g/dL (3.3-5.0); Chloride* 101 mmol/L (96-114); Sodium* 133 mmol/L (135-149)
[2022-01-17 14:05] LABS: D Dimer Quantitative* 0.28 ug/ml (0.00-0.50); Potassium* 4.3 mmol/L (3.6-5.1)
[2022-01-17 14:06] LABS: Creatinine* 0.7 mg/dL (0.5-1.5); Est. Creatinine Clearance* 60.96; Estimated Glomerular Filt Rate 98 ml/min
[2022-01-17 14:07] LABS: Alanine Aminotransferase* 14 U/L (4-35); Alkaline Phosphatase* 65 U/L (40-150); Aspartate Amino Transferase* 27 U/L (12-35); Bilirubin Total* 0.3 mg/dL (0.1-1.5); Blood Urea Nitrogen* 16 mg/dL (7-30); Carbon Dioxide* 25 mmol/L (20-32)
[2022-01-17 14:08] LABS: Calcium* 9.1 mg/dL (8.4-10.6); Glucose* 116 mg/dL (60-115)
[2022-01-17 14:19] LABS: Troponin I* < 0.01 ng/mL (0.01-0.04)
[2022-01-17 14:20] LABS: C Reactive Protein* < 0.5 mg/dL (0.5-1.0)
[2022-01-17 14:21] LABS: SARS PCR* Negative SARS-CoV-2 (Negative)
[2022-01-17 14:42] LABS: RBC Urine 0-2 (0-2); WBC Urine 0-2 (0-5)
[2022-01-17 14:43] LABS: Bacteria Urine Few; Squamous Epithelial Cell Urine Few (None-Few)
[2022-01-17] MEDS: ONDANSETRON 2 MG/ML inj 4 MG IVP (14:51)
[2022-01-17] MEDS: 0.9 % SODIUM CHLORIDE 500 ML 500 ML IV (14:51)
[2022-01-17 15:28] LABS: TSH With Reflex to FT4* 0.566 uIU/mL (0.270-4.200)
== END 2022-01-17 16:17 | disposition home or self-care (01) ==
PROVIDERS: Emergency Provider Family Medicine; PCP Family Medicine
DX: R53.1 Weakness (principal)
CPT/HCPCS: 36415; 80053; 81001; 84443; 84484; 85025; 85379; 86140; 87086; 87635; 96374; 97140; 99284; J2405; J7120

== ENCOUNTER 2022-01-27 13:25 | Emergency (ER) | payer MEDICARE, BC, SELFPAY ==
[2022-01-27 13:42] VITALS: BP 99/62; PULSE 68; RESP 18; TEMP 35.8; O2SAT 97; BMI 21.4
--- NOTE | 2022-01-27 14:07 | ED_ITS ---
HPI - Abdominal Pain General Chief Complaint: Abdominal Pain Stated Complaint: GI problems Time Seen by Provider: 01/27/22 13:48 History of Present Illness HPI narrative: Juliette is a 61-year-old female patient with a recent (3wks prior) perforated bowel and subsequent abscess that presents to the emergency department for complaints of abdominal pain while completing her prep for colonoscopy. The patient states that for the last 4 days she has completed a low-fiber diet, as directed, and was to begin her actual GoLYTELY prep in the a.m.; however, she has developed increasing left-sided abdominal pain similar to her previous perforated bowel and she was advised by her primary care provider to present the emergency department for evaluation with CT. She describes the pain as stabbing and aching. The patient denies vomiting but reports nausea, denies diarrhea or constipation. She reports her last bowel movement was normal for her, and not soft or diarrhea. The patient denies chest pain, shortness a breath, or significant cough. The patient denies fever, chills, or sweats. She has taken no medications prior to arrival for abdominal pain. She has taken no medications for nausea prior to arrival. In addition, the patient reports left lower extremity cramping associated with recent prep. She denies numbness, tingling, or weakness. Related Data Home Medications Medication Instructions Recorded Confirmed clobetasol 0.05 % topical ointment 1 applic topical .qod 11/21/21 12/07/21 estradiol 0.5 mg tablet 0.5 mg PO DAILY 11/21/21 01/27/22 liothyronine 5 mcg tablet 5 mcg PO .B.i.d. 11/21/21 01/27/22 trazodone 50 mg tablet 50 mg PO HS 11/21/21 01/27/22 lorazepam 0.5 mg tablet 0.5 mg PO Q12H PRN 12/08/21 01/27/22 melatonin 3 mg capsule 9 mg PO HS 12/08/21 01/27/22 sertraline 25 mg tablet 25 mg PO Q24H 12/08/21 01/27/22 buspirone 10 mg tablet mg 01/27/22 fluconazole 150 mg tablet mg 01/27/22 prednisolone acetate 1 % eye drp 01/27/22 drops,suspension sertraline 50 mg tablet mg 01/27/22 Previous Rx's Medication Instructions Recorded Lactobacillus acidophilus 0.5 mg 1 tab PO TIDWM 90 days #90 tabs 12/10/21 (100 million cell) tablet hydromorphone 2 mg tablet 2 mg PO Q4H PRN 5 days #30 tabs 12/10/21 ondansetron 4 mg disintegrating 4 mg PO Q6H PRN nausea and 12/10/21 tablet vomiting #10 tabs cephalexin 500 mg capsule 500 mg PO TID #15 caps 01/27/22 Allergies Allergy/AdvReac Type Severity Reaction Status Date / Time auranofin Allergy Verified 01/27/22 13:52 cat dander Allergy Verified 01/27/22 13:52 Gadolinium-Containing Allergy Verified 01/27/22 13:52 Contrast Medi gluten Allergy Verified 01/27/22 13:52 gold keratinate Allergy Verified 01/27/22 13:52 gold sodium thiomalate Allergy Verified 01/27/22 13:52 lactose Allergy Verified 01/27/22 13:52 Opioids - Morphine Analogues Allergy Verified 01/27/22 13:52 goldshots Allergy Severe Anaphylaxis Uncoded 11/21/21 12:52 Review of Systems Const Denies: fever, chills, fatigue or malaise ENMT Denies: throat pain or difficulty swallowing Cardio Denies: chest pain or shortness of breath with exertion Resp Denies: shortness of breath or cough GI Reports: abdominal pain, nausea and bloating; Denies: vomiting, heartburn, diarrhea, constipation, belching, excessive passing of gas, difficulty swallowing, feeling full early, change in bowel habits or blood in stool Denies: painful urination, urinary frequency, urinary urgency or blood in urine Musculo Reports: muscle cramps Endo Denies: excessive urination or fatigue [facility] Medical History Anxiety Chronic fatigue syndrome Depression Diverticulitis of intestine with abscess History of Clostridioides difficile colitis History of femur fracture Hypothyroidism Insomnia Juvenile rheumatoid arthritis Left elbow pain Migraines Osteoporosis Sarcoidosis Sensorineural hearing loss (SNHL) of both ears Sigmoid diverticulitis Surgical History History of bilateral knee arthroplasty History of hysterectomy History of repair of rotator cuff History of tonsillectomy History of total hip arthroplasty S/P hammer toe correction Family History Father High blood pressure Hyperlipidemia Mother High blood pressure Hyperlipidemia Sister Seizure disorder Social History Narrative: She lives alone in [place]. 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 She does not smoke. She drinks alcohol about once a month. She uses no recreational drugs. She does have a history of chemical dependency. Healthcare power of criminal defense attorney is her sister Denise. Code status is full. Highest level of school completed/degree received: Master's degree Smoking Status: Never smoker Do you use any of these nicotine containing products: None Second hand tobacco smoke exposure: No How often do you have a drink containing alcohol: monthly or less How many standard drinks containing alcohol do you have on a typical day: 1 or 2 How often do you have six or more drinks on one occasion: Never AUDIT-C Alcohol total score: 1 Non-prescribed substance use: denies use Caffeine: Yes (coffee 3x weekly) service: No Exam Const: Vital Signs, click to edit/add: Vital Signs - 24 hr 01/27/22 13:42 01/27/22 16:08 Temperature 96.5 F L Pulse Rate [Right Pulse Oximeter] 68 61 Respiratory Rate 18 18 Blood Pressure [Ri ght Upper Arm] 99/62 104/57 L Pulse Oximetry 97 99 Oxygen Delivery Me thod Room Air Room Air Documenting provider has reviewed patient's vital signs: yes Common normals: no apparent distress, oriented x3, no limitations, healthy appearing, alert and well nourished General appearance: cooperative, comfortable and well developed; not in distress Orientation/consciousness: Yes awake, Yes oriented to person, Yes oriented to place and Yes oriented to time HENMT: Common normals: normocephalic and head/scalp atraumatic Head and scalp: normocephalic and atraumatic Face and sinus: normal facial exam (limited by masking) Eye: Common normals: EOMs intact bilaterally General eye: normal appearance of both eyes Resp: Common normals: normal respiratory effort, no retractions, no use of accessory muscles and clear to auscultation bilaterally Effort & inspection: able to speak in complete sentences Auscultation: clear to auscultation bilaterally Cardio: Common normals: regular rate, regular rhythm, S1 normal heart sound, S2 normal heart sound, no gallops, no clicks and no murmurs Rate: regular rate Rhythm: regular rhythm Heart sounds: S1 normal and S2 normal GI: Common normals: Normal to inspection, nondistended, normoactive bowel sounds present and soft to palpation Palpation: soft and tender (diffusely, worse on left abdomen) : Common normals: no CVA tenderness Bladder/kidney exam: no CVA tenderness Back & Pelvis: Common normals: no CVA tenderness Extremity: Common normals: normal to inspection, full ROM and no clubbing, cyanosis or edema Neuro: Common normals: oriented x3, CN's II-XII intact bilaterally, moves all extremities, no focal motor deficits and no sensory deficits noted Sensorium/orientation: awake, alert, oriented to person, oriented to place and oriented to time Gait (neuro): normal gait Sensory exam: double simultaneous stimulation for sensation normal Motor exam: no movement abnormalities noted Psych: Common normals: mental status grossly normal, thought process normal and speech normal Appearance: grossly normal Attitude: calm Speech: normal speech Thought process: normal thought process Thought content: normal thought content Attention/concentration: attention grossly intact Memory/cognition: memory grossly intact Insight: insight good Judgement: judgment good Skin: Common normals: no rashes or lesions noted General skin exam: no rashes or lesions noted Course Course Hospital Course: Juliette presented to the ED for abdominal pain while preparing for a colonoscopy in light of the recent perforated bowel and subsequent abscess. She denied fever, chills, or sweats. Her vital signs were normal on arrival. While uncomfortable appearing, she did not appear toxic. Laboratory studies and imaging were ordered. The patient was offered Toradol for pain and Zofran for nausea. She reported improvement in symptoms with this treatment. She was also offered 1 L of IV fluid to assist with hydration. Reevaluation(s) Reevaluation #1: Patient reports no significant change in symptoms. Patient's vital signs have remained stable. The results were discussed, and the patient verbalized understanding. Antibiotics have been offered to the patient and sent to the pharmacy on her behalf. Time: 16:10 Vital Signs Vital signs: Initial Vital Signs Temperature 96.5 F L 01/27/22 13:42 Temperature Source Temporal Artery Scan 01/27/22 13:42 Pulse Rate 68 01/27/22 13:42 Respiratory Rate 18 01/27/22 13:42 Blood Pressure 99/62 01/27/22 13:42 Blood Pressure Mean 74 01/27/22 13:42 Blood Pressure Position Sitting 01/27/22 13:42 Pulse Oximetry 97 01/27/22 13:42 Oxygen Delivery Method 01/27/22 13:42 Vital Signs Temperature 96.5 F L 01/27/22 13:42 Pulse Rate 68 01/27/22 13:42 Respiratory Rate 18 01/27/22 13:42 Blood Pressure 99/62 01/27/22 13:42 Pulse Oximetry 97 01/27/22 13:42 Oxygen Delivery Method 01/27/22 13:42 Temperature 96.5 F L 01/27/22 13:42 Pulse Rate 61 01/27/22 16:08 Respiratory Rate 18 01/27/22 16:08 Blood Pressure 104/57 L 01/27/22 16:08 Pulse Oximetry 99 01/27/22 16:08 Oxygen Delivery Method 01/27/22 16:08 MDM - Abdominal Pain MDM Narrative Medical decision making narrative: During the evaluation of this patient consider multiple differential diagnosis considerations. The life-threatening differential diagnoses considered include: Appendicitis, aortic aneurysm, mesenteric ischemia, bowel perforation, volv ulus, and bowel obstruction. Other differential diagnoses include but are not limited to: Inflammatory bowel disease, cholecystitis, pancreatitis, hepatitis, gastritis, GERD, diverticulitis, peptic ulcer disease, pyelonephritis/UTI, renal colic/stone, diseases of the genitourinary system and reproductive system, as well as the other etiologies. Medical Records Attestation: I reviewed the patient's medical records. Lab Data Attestation: I reviewed the patient's lab results. Labs: Lab Results 01/27/22 01/27/22 01/27/22 Range/Units 14:35 14:35 14:35 WBC 4.72 (4.50-11.00) K/uL RBC 4.67 (4.00-5.20) m/uL Hgb 13.9 (12.0-16.0) gm/dL Hct 41.1 (33.0-51.0) % MCV 88 (80-100) fL MCH 30 (26-34) pg MCHC 34 (32-36) gm/dL RDW Coeff of Chuck 11.6 (11.5-15.5) % Plt Count 212 (140-440) K/uL Neut % (Auto) 70.6 (42.0-72.0) % Lymph % (Auto) 21.6 (20-44) % Saunders % (Auto) 6.4 (0.0-11.0) % Eos % (Auto) 0.6 (0.0-7.0) % Baso % (Auto) 0.4 (0.0-3.0) % Neut # (Auto) 3.33 (1.7-7.0) K/uL Lymph # (Auto) 1.02 (0.90-2.90) K/uL Saunders # (Auto) 0.30 (0.00-0.90) K/UL Eos # (Auto) 0.03 (0.00-0.50) K/uL Baso # (Auto) 0.02 (0.00-0.30) K/uL Abs Immat Gran (auto) 0.02 (0.00-0.30) K/uL Sodium 136 (135-149) mmol/L Potassium 4.6 (3.6-5.1) mmol/L Chloride 102 (96-114) mmol/L Carbon Dioxide 24 (20-32) mmol/L BUN 13 (7-30) mg/dL Creatinine 0.7 (0.5-1.5) mg/dL Estimated Creat Clear 60.56 Estimated GFR 98 ml/min Glucose 111 (60-115) mg/dL Lactate (0.5-1.9) mmol/L Calcium 9.4 (8.4-10.6) mg/dL Magnesium 2.0 (1.5-2.6) mg/dL Total Bilirubin 0.4 (0.1-1.5) mg/dL AST 25 (12-35) U/L ALT 17 (4-35) U/L Alkaline Phosphatase 68 (40-150) U/L Total Protein 7.5 (6.0-8.3) g/dL Albumin 4.6 (3.3-5.0) g/dL Urine Color Yellow (Yellow) Urine Appearance Clear (Clear) Urine pH 6.0 (5.0-8.5) Ur Specific [place] 1.020 (1.000-1.030) Urine Protein Negative (Negative) Urine Glucose (UA) Negative (Negative) Urine Ketones 3+ A (Negative) Urine Blood Trace-intact A (Negative) Urine Nitrite Negative (Negative) Urine Bilirubin Negative (Negative) Urine Urobilinogen 0.2 (0.2-1.0) Ur Leukocyte Esterase 2+ A (Negative) Urine RBC 0-2 (0-2) Urine WBC 0-2 (0-5) Urine WBC Clumps None (None) Ur Squamous Epith Cells Moderate A (None-Few) Urine Bacteria Few A (None) 01/27/22 Range/Units 14:35 WBC (4.50-11.00) K/uL RBC (4.00-5.20) m/uL Hgb (12.0-16.0) gm/dL Hct (33.0-51.0) % MCV (80-100) fL MCH (26-34) pg MCHC (32-36) gm/dL RDW Coeff of Chuck (11.5-15.5) % Plt Count (140-440) K/uL Neut % (Auto) (42.0-72.0) % Lymph % (Auto) (20-44) % Saunders % (Auto) (0.0-11.0) % Eos % (Auto) (0.0-7.0) % Baso % (Auto) (0.0-3.0) % Neut # (Auto) (1.7-7.0) K/uL Lymph # (Auto) (0.90-2.90) K/uL Saunders # (Auto) (0.00-0.90) K/UL Eos # (Auto) (0.00-0.50) K/uL Baso # (Auto) (0.00-0.30) K/uL Abs Immat Gran (auto) (0.00-0.30) K/uL Sodium (135-149) mmol/L Potassium (3.6-5.1) mmol/L Chloride (96-114) mmol/L Carbon Dioxide (20-32) mmol/L BUN (7-30) mg/dL Creatinine (0.5-1.5) mg/dL Estimated Creat Clear Estimated GFR ml/min Glucose (60-115) mg/dL Lactate 1.4 (0.5-1.9) mmol/L Calcium (8.4-10.6) mg/dL Magnesium (1.5-2.6) mg/dL Total Bilirubin (0.1-1.5) mg/dL AST (12-35) U/L ALT (4-35) U/L Alkaline Phosphatase (40-150) U/L Total Protein (6.0-8.3) g/dL Albumin (3.3-5.0) g/dL Urine Color (Yellow) Urine Appearance (Clear) Urine pH (5.0-8.5) Ur Specific [place] (1.000-1.030) Urine Protein (Negative) Urine Glucose (UA) (Negative) Urine Ketones (Negative) Urine Blood (Negative) Urine Nitrite (Negative) Urine Bilirubin (Negative) Urine Urobilinogen (0.2-1.0) Ur Leukocyte Esterase (Negative) Urine RBC (0-2) Urine WBC (0-5) Urine WBC Clumps (None) Ur Squamous Epith Cells (None-Few) Urine Bacteria (None) Imaging Data CT scan - abdomen: Attestation: I have reviewed the pertinent imaging results. Radiologist's impression: Colonic diverticulosis. No evidence for acute diverticulitis. Previously seen diverticular abscess has resolved. No obstruction. No sign of mass or inflammation. Discharge Plan Discharge Clinical Impression: Diverticulosis of colon, Asymptomatic bacteriuria Condition: Stable Instructions: Diverticulosis (ED) Additional Instructions: Thank you for choosing [facility] for your care today. Allow perineum to air as tolerated, (ex. nothing at bedtime). Take antibiotic as prescribed. See orders. Consider cranberry juice or cranberry supplement to assist with symptom control and recurrent UTIs. Consider OTC AZO or Urogesic Blue to assist with symptoms. I recommend calling primary care for follow-up in the next 7-10 days. Continue colonoscopy prep, as tolerated. If new or worsening symptoms develop or you have any concerns in the meantime, please call your primary care clinic or return to the ER for re-evaluation. Activity Level: No Restrictions and Activity as Tolerated Discharge Diet: Regular Diet Detail: Increase clear fluids and electrolyte replacement while colon prepping. Prescriptions: New cephalexin 500 mg capsule 500 mg PO TID Qty: 15 0RF No Action trazodone 50 mg tablet 50 mg PO HS liothyronine 5 mcg tablet 5 mcg PO .B.i.d. estradiol 0.5 mg tablet 0.5 mg PO DAILY clobetasol 0.05 % ointment 1 applic TOPICAL .qod lorazepam 0.5 mg tablet 0.5 mg PO Q12H PRN melatonin 3 mg capsule 9 mg PO HS sertraline 25 mg tablet 25 mg PO Q24H hydromorphone 2 mg Tablet 2 mg PO Q4H PRN5 Days Qty: 30 0RF Lactobacillus acidophilus 0.5 mg (100 million cell) Tablet 1 tab PO TIDWM 90 Days Qty: 90 0RF ondansetron 4 mg tablet,disintegrating 4 mg PO Q6H PRN (Reason: nausea and vomiting) Qty: 10 0RF fluconazole 150 mg tablet prednisolone acetate 1 % drops,suspension buspirone 10 mg tablet sertraline 50 mg tablet Follow Up/Referrals: Nivia Bruno MD [Primary Care Provider] - Stand Alone Forms: [facility] Info Instructions
--- NOTE | 2022-01-27 14:12 | CRLHL7_ITS ---
For Patients: As a result of the Century Cures Act, medical imaging exams and procedure reports are released immediately into your electronic medical record. You may view this report before your referring provider. If you have questions, please contact your health care provider. INDICATION: Abdominal pain, recent perf TECHNIQUE: CT abdomen and pelvis acquired with 71 mL Isovue 370 IV contrast. COMPARISON: 12/07/[address], 05/22/[address] FINDINGS: Lower chest: Several bilateral lung nodules are unchanged from 2018. Liver: Unremarkable. Normal in size and attenuation. No masses. Gallbladder and bile ducts: Unremarkable. No stones or inflammation. No biliary dilatation. Pancreas: Unremarkable. No mass or inflammation. Spleen: Unremarkable. Normal in size. No masses. Adrenal glands: Unremarkable. No nodules. Kidneys: Bilateral cysts. No solid masses, stones, or hydronephrosis. GI tract: Colonic diverticulosis. No evidence for acute diverticulitis. Previously seen diverticular abscess has resolved. No obstruction. No sign of mass or inflammation. Vasculature: Unremarkable. Mesenteric arteries are patent. Lymph nodes: No lymphadenopathy. Omentum/Peritoneum/Abdominal Wall: Unremarkable. No sign of mass or infiltration. No free air or significant free fluid. Pelvis: Partially obscured by beam hardening artifact but otherwise unremarkable. Bones: Right total hip arthroplasty. Chronic T12 compression fracture. IMPRESSION: No acute findings. Dictated by Tavo Cobos MD @ 01/27/2022 3:24:41 PM Please note that all CT scans at this facility use dose modulation, iterative reconstruction, and/or weight-based dosing when appropriate to reduce radiation dose to as low as reasonably achievable. Dictated by: Tavo Cobos MD @ 01/27/2022 15:24:47 (Electronically Signed)
[2022-01-27 14:46] LABS: Basophils Absolute Auto 0.02 K/uL (0.00-0.30); Basophils Percent Auto 0.4 % (0.0-3.0); Eosinophils Absolute Auto 0.03 K/uL (0.00-0.50); Eosinophils Percent Auto 0.6 % (0.0-7.0); Hematocrit 41.1 % (33.0-51.0); Hemoglobin* 13.9 gm/dL (12.0-16.0); Immature Granulocytes Abs Auto 0.02 K/uL (0.00-0.30); Lactate* 1.4 mmol/L (0.5-1.9); Lymphocytes Absolute Auto 1.02 K/uL (0.90-2.90); Lymphocytes Percent Auto 21.6 % (20-44); Mean Corpuscular HGB Conc 34 gm/dL (32-36); Mean Corpuscular Hemoglobin 30 pg (26-34); Mean Corpuscular Volume 88 fL (80-100); Monocytes Percent Auto 6.4 % (0.0-11.0); Neutrophils Absolute Auto 3.33 K/uL (1.7-7.0); Neutrophils Percent Auto 70.6 % (42.0-72.0); Platelet Count* 212 K/uL (140-440); RDW Coefficient of Variation % 11.6 % (11.5-15.5); Red Blood Count 4.67 m/uL (4.00-5.20); White Blood Count* 4.72 K/uL (4.50-11.00)
[2022-01-27 14:51] LABS: Appearance Urine Clear (Clear); Bilirubin Urine Negative (Negative); Blood Urine Trace-intact (Negative); Color Urine Yellow (Yellow); Glucose Urine Negative (Negative); Ketones Urine 3+ (Negative); Leukocyte Esterase Urine 2+ (Negative); Nitrite Urine Negative (Negative); Protein Urine Negative (Negative); Urobilinogen Urine 0.2 (0.2-1.0)
[2022-01-27 15:01] LABS: Slide Review Reflex No
[2022-01-27 15:04] LABS: Albumin* 4.6 g/dL (3.3-5.0); Chloride* 102 mmol/L (96-114)
[2022-01-27 15:05] LABS: Potassium* 4.6 mmol/L (3.6-5.1); Sodium* 136 mmol/L (135-149)
[2022-01-27 15:07] LABS: Alkaline Phosphatase* 68 U/L (40-150); Aspartate Amino Transferase* 25 U/L (12-35); Bilirubin Total* 0.4 mg/dL (0.1-1.5); Blood Urea Nitrogen* 13 mg/dL (7-30); Carbon Dioxide* 24 mmol/L (20-32); Creatinine* 0.7 mg/dL (0.5-1.5); Est. Creatinine Clearance* 60.56; Estimated Glomerular Filt Rate 98 ml/min; Total Protein* 7.5 g/dL (6.0-8.3)
[2022-01-27 15:08] LABS: Alanine Aminotransferase* 17 U/L (4-35); Calcium* 9.4 mg/dL (8.4-10.6); Glucose* 111 mg/dL (60-115)
[2022-01-27 15:15] LABS: RBC Urine 0-2 (0-2); WBC Urine 0-2 (0-5)
[2022-01-27 15:16] LABS: Bacteria Urine Few; Squamous Epithelial Cell Urine Moderate (None-Few)
[2022-01-27] MEDS: 0.9 % SODIUM CHLORIDE 1000 ml 1,000 ML IV (16:01)
[2022-01-27] MEDS: KETOROLAC 15 MG/ML inj IVP (16:04)
[2022-01-27] MEDS: ONDANSETRON 2 MG/ML inj 4 MG IVP (16:06)
[2022-01-27 16:08] VITALS: BP 104/57; PULSE 61; RESP 18; O2SAT 99
[2022-01-27] MEDS: cephALEXin 500 MG CAPSULE PO (17:31)
--- NOTE | 2022-01-27 18:09 | ED.NURSE ---
dr antoine did speak to emani about plan. she answered all of sara' questions.
== END 2022-01-27 17:35 | disposition home or self-care (01) ==
PROVIDERS: Emergency Provider Family Medicine; PCP Family Medicine
DX: K57.92 Diverticulitis of intestine, part unspecified, without perforation or abscess without bleeding (principal); R82.71 Bacteriuria
CPT/HCPCS: 36415; 74177; 80053; 81003; 81015; 83605; 83735; 85025; 87086; 96374; 96375; 99284; 99285; A9270; J1885; J2405; J7030; Q9967

== ENCOUNTER 2022-03-16 13:32 | Outpatient (CLI) | payer MEDICARE, BC, SELFPAY ==
[2022-03-17 15:00] LABS: Chlamydia DNA Amplified* NOT DETECTED (No Detected); GC DNA Amplified* NOT DETECTED (No Detected)
== END 2022-03-16 13:33 | disposition home or self-care (01) ==
PROVIDERS: PCP Family Medicine; Visit Provider Registered Nurse
DX: N89.8 Other specified noninflammatory disorders of vagina (principal); R35.0 Frequency of micturition
CPT/HCPCS: 87086; 87186; 87491; 87591

== ENCOUNTER 2022-03-22 10:00 | Outpatient (RCR) | payer MEDICARE, BC, SELFPAY | END 2022-07-03 13:48 | disposition home or self-care (01) | PROVIDERS: PCP Family Medicine; Visit Provider Family Medicine | DX: M79.604 Pain in right leg (principal); Z51.89 Encounter for other specified aftercare | CPT/HCPCS: 97035; 97110; 97140; 97165; 97535 ==

== ENCOUNTER 2022-06-10 13:03 | Outpatient (CLI) | payer MEDICARE, BC, SELFPAY | END 2022-06-10 13:04 | disposition home or self-care (01) | PROVIDERS: PCP Family Medicine; Visit Provider Obstetrics & Gynecology | DX: R39.15 Urgency of urination (principal); N89.8 Other specified noninflammatory disorders of vagina; R10.9 Unspecified abdominal pain | CPT/HCPCS: 87086 ==

== ENCOUNTER 2022-06-24 16:52 | Emergency (ER) | payer MEDICARE, BC, SELFPAY ==
[2022-06-24 16:56] VITALS: BP 114/60; PULSE 82; RESP 16; TEMP 36; O2SAT 96; BMI 19.5
--- NOTE | 2022-06-24 18:12 | ED_ITS ---
HPI - General Adult General Date Seen: 06/24/22 Chief complaint: Abdominal Pain Stated complaint: Sore Throat, Abdominal Pain Time Seen by Provider: 06/24/22 17:55 Source: patient Mode of arrival: ambulatory Limitations: no limitations History of Present Illness HPI narrative: Patient is a 62-year-old female who presents here with multiple complaints including mild abdominal discomfort, sore throat, overall achiness, weakness, fatigue, live in ongoing for the past few days, she tells me that she has the big date tomorrow, would like to be well for this. She has been exposed to COVID also strep throat. Also requesting to have her thyroid levels checked. Denies a fevers chills nausea vomiting she has recently undergone surgery for diverticulitis with robotic laparoscopic assisted surgery up in the [facility]. She has recovered well from that. Not taking any current medications, no nausea vomiting, no diarrhea, maybe a little bit of dysuria frequency. Treatments prior to arrival: none Related Data Home Medications Medication Instructions Recorded Confirmed clobetasol 0.05 % topical ointment 1 applic topical .qod 11/21/21 06/10/22 estradiol 0.5 mg tablet 0.5 mg PO DAILY 11/21/21 06/10/22 liothyronine 5 mcg tablet 5 mcg PO .B.i.d. 11/21/21 06/10/22 trazodone 50 mg tablet 50 mg PO HS 11/21/21 06/10/22 lorazepam 0.5 mg tablet 0.5 mg PO Q12H PRN 12/08/21 06/10/22 melatonin 3 mg capsule 9 mg PO HS 12/08/21 06/10/22 buspirone 10 mg tablet mg 01/27/22 06/10/22 fluconazole 150 mg tablet mg 01/27/22 03/16/22 prednisolone acetate 1 % eye drp 01/27/22 06/10/22 drops,suspension sertraline 25 mg tablet 100 mg PO Q24H 06/10/22 06/10/22 Previous Rx's Medication Instructions Recorded Lactobacillus acidophilus 0.5 mg 1 tab PO TIDWM 90 days #90 tabs 12/10/21 (100 million cell) tablet hydromorphone 2 mg tablet 2 mg PO Q4H PRN 5 days #30 tabs 12/10/21 ondansetron 4 mg disintegrating 4 mg PO Q6H PRN nausea and 12/10/21 tablet vomiting #10 tabs fluconazole 150 mg tablet 150 mg PO Q3D 2 doses #2 tabs 03/16/22 clobetasol 0.05 % topical ointment 1 applic topical ONCE #15 grams 06/10/22 estradiol 10 mcg vaginal tablet 10 mcg vaginal 2XW #24 tabs 06/10/22 (Yuvafem) Allergies Allergy/AdvReac Type Severity Reaction Status Date / Time auranofin Allergy Verified 06/24/22 16:59 cat dander Allergy Verified 06/24/22 16:59 Gadolinium-Containing Allergy Verified 06/24/22 16:59 Contrast Medi gluten Allergy Verified 06/24/22 16:59 gold keratinate Allergy Verified 06/24/22 16:59 gold sodium thiomalate Allergy Verified 06/24/22 16:59 lactose Allergy Verified 06/24/22 16:59 Opioids - Morphine Analogues Allergy Verified 06/24/22 16:59 goldshots Allergy Severe Anaphylaxis Uncoded 06/10/22 12:56 Review of Systems Status of ROS: Reports: 10 or more systems reviewed and unremarkable except as noted in History and below [facility] Medical History Abscess of sigmoid colon due to diverticulitis Anxiety Chronic fatigue syndrome Depression Diverticulitis of intestine with abscess History of Clostridioides difficile colitis History of Clostridioides difficile infection History of diverticulitis of colon (05/09/11) History of femur fracture History of hypothyroidism Hypothyroidism Insomnia Juvenile rheumatoid arthritis Left elbow pain Migraines Osteoporosis Sarcoidosis Sensorineural hearing loss (SNHL) of both ears Sigmoid diverticulitis Surgical History History of bilateral knee arthroplasty History of repair of rotator cuff History of tonsillectomy History of total hip arthroplasty History of total knee replacement S/P hammer toe correction Family History Father High blood pressure Hyperlipidemia Mother High blood pressure Hyperlipidemia Sister Seizure disorder Social History Narrative: She lives alone in [place]. 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 She does not smoke. She drinks alcohol about once a month. She uses no recreational drugs. She does have a history of chemical dependency. Healthcare power of personal injury attorney is her sister Denise. Code status is full. Are you following a special diet: Yes (no gluten, lactose intolerent) Highest level of school completed/degree received: Master's degree Smoking Status: Never smoker Do you use any of these nicotine containing products: None Second hand tobacco smoke exposure: No How often do you have a drink containing alcohol: never How often do you have six or more drinks on one occasion: Never AUDIT-C Alcohol total score: 0 Non-prescribed substance use: denies use Caffeine: Yes (coffee 3x weekly) Are you now , , , , never or living with a partner: Social isolation score (0-1 are the most socially isolated patients): 0 Are you currently sexually active: No service: No Exam Narrative: Exam Narrative: Patient is seen in room 4 she is in no apparent distress, Patient is speaking normally, no problem with slurring words, oriented x3. Head eyes ears nose and throat exam show equal pupils, no scleral icterus, extraocular muscles are normal, no facial droop, speech is normal, trachea normal and midline. Throat shows mild redness, no tonsillar enlargement however. Thyroid normal midline palpable not enlarged. Chest shows symmetrical rise bilaterally, normal auscultation with no wheezes, no increased work of breathing, no overt bruising or lesions seen, no tenderness is noted on auscultation. Heart sounds normal with no S3-S4 no murmurs clicks or gallops. Abdomen shows no obvious masses or hepatosplenomegaly, no organomegaly, bowel sounds are normal in all quadrants. No tenderness is noted also in all quadrants. Upper and lower extremities show normal power, normal range of motion, pulses are normal, sensations normal, fine motor movements are normal, pelvis is stable to rocking. Cervical spine shows normal range of motion, and palpably not tender. Thoracic spine shows normal range of motion, and palpably not tender, lumbar spine shows no tenderness to palpation percussion and is otherwise normal range of motion. Skin shows no rashes, petechiae or eccymosis. Const: Vital Signs, click to edit/add: Vital Signs - 24 hr 06/24/22 16:56 Temperature 96.8 F L Pulse Rate [Pulse Oximeter] 82 Respiratory Rate 16 Blood Pressure [Ri ght Upper Arm] 114/60 Pulse Oximetry 96 Oxygen Delivery Me thod Room Air Documenting provider has reviewed patient's vital signs: yes Course Course Hospital Course: I went back in and discussed with the patient that her lab tests were all normal, she does not have a UTI in her triple screen and strep test were negative, she is very happy with this Vital Signs Vital signs: Initial Vital Signs Temperature 96.8 F L 06/24/22 16:56 Temperature Source Temporal Artery Scan 06/24/22 16:56 Pulse Rate 82 06/24/22 16:56 Pulse Rhythm 06/24/22 16:56 Pulse Strength 3+ Normal 06/24/22 16:56 Respiratory Rate 16 06/24/22 16:56 Blood Pressure 114/60 06/24/22 16:56 Blood Pressure Mean 78 06/24/22 16:56 Blood Pressure Position Sitting 06/24/22 16:56 Pulse Oximetry 96 06/24/22 16:56 Oxygen Delivery Method 06/24/22 16:56 Vital Signs Temperature 96.8 F L 06/24/22 16:56 Pulse Rate 82 06/24/22 16:56 Respiratory Rate 16 06/24/22 16:56 Blood Pressure 114/60 06/24/22 16:56 Pulse Oximetry 96 06/24/22 16:56 Oxygen Delivery Method 06/24/22 16:56 Temperature 96.8 F L 06/24/22 16:56 Pulse Rate 82 06/24/22 16:56 Respiratory Rate 16 06/24/22 16:56 Blood Pressure 114/60 06/24/22 16:56 Pulse Oximetry 96 06/24/22 16:56 Oxygen Delivery Method 06/24/22 16:56 Medical Decision Making MDM Narrative Medical decision making narrative: Life-threatening differential diagnosis considered include stroke, coronary artery disease, pneumonia, and heart failure. Other differential diagnosis include but are not limited to electrolyte imbalances, anemia, medication reactions, and urinary tract infection We will go ahead do UA, strep swab, and triple screen, she asked me to do thyroid studies explained to her that I do not have expertise in the thyroid studies that is not an emergent evaluation here in the ER. I recommend she see primary care for this. Lab Data Lab results reviewed: Yes I reviewed the patient's lab results Labs: Lab Results 06/24/22 06/24/22 06/24/22 Range/Units 17:54 18:06 18:06 Urine Color Yellow (Yellow) Urine Appearance Clear (Clear) Urine pH 5.0 (5.0-8.5) Ur Specific [place] 1.015 (1.000-1.030) Urine Protein Negative (Negative) Urine Glucose (UA) Negative (Negative) Urine Ketones Negative (Negative) Urine Blood Negative (Negative) Urine Nitrite Negative (Negative) Urine Bilirubin Negative (Negative) Urine Urobilinogen 0.2 (0.2-1.0) Ur Leukocyte Esterase Negative (Negative) Urine RBC 0-2 (0-2) Urine WBC 0-2 (0-5) Ur Squamous Epith Cells None (None-Few) Urine Bacteria None (None) SARS-CoV-2 (PCR) Negative SARS-CoV-2 (Negative) Influenza Type A (PCR) Negative PCR FLU A (Negative) Influenza Type B (PCR) Negative PCR FLU B (Negative) RSV (PCR) Negative PCR RSV (Negative) Group A Strep DNA NOT DETECTED (Not Detectd) Discharge Plan Discharge Clinical Impression: Acute sore throat, Abdominal pain Patient Disposition: Home, Self-Care Condition: Stable Instructions: Upper Respiratory Infection (DC), Abdominal Pain (ED) Additional Instructions: Continue to monitor, your test results are all negative, this is reassuring, increasing fever abdominal pain nausea vomiting should come back and be seen, Prescriptions: No Action fluconazole 150 mg tablet 150 mg PO Q3D Qty: 2 0RF Rx Instructions: may repeat second dose 72 hrs after first dose if symptoms persist estradiol [Yuvafem] 10 mcg tablet 10 mcg vaginal 2XW Qty: 24 3RF clobetasol 0.05 % ointment 1 applic topical ONCE Qty: 15 3RF Rx Instructions: Apply as needed to affected area trazodone 50 mg tablet 50 mg PO HS liothyronine 5 mcg tablet 5 mcg PO .B.i.d. estradiol 0.5 mg tablet 0.5 mg PO DAILY clobetasol 0.05 % ointment 1 applic TOPICAL .qod lorazepam 0.5 mg tablet 0.5 mg PO Q12H PRN melatonin 3 mg capsule 9 mg PO HS hydromorphone 2 mg Tablet 2 mg PO Q4H PRN5 Days Qty: 30 0RF Lactobacillus acidophilus 0.5 mg (100 million cell) Tablet 1 tab PO TIDWM 90 Days Qty: 90 0RF ondansetron 4 mg tablet,disintegrating 4 mg PO Q6H PRN (Reason: nausea and vomiting) Qty: 10 0RF sertraline 25 mg tablet 100 mg PO Q24H fluconazole 150 mg tablet prednisolone acetate 1 % drops,suspension buspirone 10 mg tablet Follow Up/Referrals: Nivia Bruno MD [Primary Care Provider] - Stand Alone Forms: FoodText Info Instructions
[2022-06-24 18:18] LABS: Appearance Urine Clear (Clear); Bilirubin Urine Negative (Negative); Blood Urine Negative (Negative); Color Urine Yellow (Yellow); Glucose Urine Negative (Negative); Ketones Urine Negative (Negative); Leukocyte Esterase Urine Negative (Negative); Nitrite Urine Negative (Negative); Protein Urine Negative (Negative); Specific Gravity Urine 1.015 (1.000-1.030); Urobilinogen Urine 0.2 (0.2-1.0)
[2022-06-24 18:48] LABS: RBC Urine 0-2 (0-2); WBC Urine 0-2 (0-5)
[2022-06-24 18:59] LABS: Strep A DNA Probe* NOT DETECTED (Not Detectd)
[2022-06-24 19:09] LABS: PCR FLU A Negative PCR FLU A (Negative); PCR FLU B Negative PCR FLU B (Negative); PCR RSV Negative PCR RSV (Negative)
[2022-06-24 19:19] LABS: SARS PCR* Negative SARS-CoV-2 (Negative)
== END 2022-06-24 20:12 | disposition home or self-care (01) ==
PROVIDERS: Emergency Provider Family Medicine; PCP Family Medicine
DX: J02.9 Acute pharyngitis, unspecified (principal); R10.9 Unspecified abdominal pain
CPT/HCPCS: 81001; 87502; 87634; 87635; 87651; 99283; 99284

== ENCOUNTER 2022-07-09 13:38 | Emergency (ER) | payer MEDICARE, BC, SELFPAY ==
[2022-07-09 13:43] VITALS: BP 106/73; PULSE 68; RESP 20; TEMP 36.4; O2SAT 97; BMI 19.9
--- NOTE | 2022-07-09 13:54 | ED.GENADULT ---
HPI - General Adult General Time Seen by Provider: 13:54 Date Seen: 07/09/22 Chief complaint: Neck Injury/Pain Stated complaint: Fell , neck/pain pain Time Seen by Provider: 07/09/22 13:53 Source: patient and RN notes reviewed Mode of arrival: ambulatory Limitations: no limitations History of Present Illness HPI narrative: Juliette is a 62-year-old female coming into the ER with concern of a fall that happened last , today is Friday. She is complaining of neck pain, pain throughout her whole back, pain in her right femur area and a bruise below the left knee. She states the knee does feel a bit funny with walking, she has had a history of a knee replacement years ago. She has plating in her right femur. She has been able to walk. She notes she was initially moving a recliner to clean under it, lost her balance and fell. She complained of inner thigh pain bilaterally, she states she hurts through the chest in into both arms. She has a headache now. She notes that she had a fractured thoracic spine that sounds like it was compression fracture last year, did not know that that it happened until about 2 months later. She states she tried to call Dr. Mijares and left him a message. She thinks he might be here doing injections or might be at [place] at the [facility]. She is wondering if we can see if he has here. I did indeed talk to him. Staff in same-day was able to get a hold of him and he did call me back. I reviewed my plan regarding patient's care. He had no further concerns. Patient and I discussed her back complaints. Reviewed with her that there was nothing in her history that was indicating she needed an emergent MRI. Doing CT scans on all of these body parts is significant radiation in we did review that. She states she was unaware of the amount of radiation that CT scans imposed. I reviewed with her that we really needed to use CT judiciously. She really wants a CT of her neck. She does not feel that it is necessary on her lower back. I think that is reasonable given the history she has provided me. After I had seen patient, she did talk to nursing staff and request the viral triple swab. I am not aware of her being symptomatic, she did not bring this up to me at all. I will order this for her. Related Data Home Medications Medication Instructions Recorded Confirmed clobetasol 0.05 % topical ointment 1 applic topical .qod 11/21/21 07/09/22 estradiol 0.5 mg tablet 0.5 mg PO DAILY 11/21/21 07/09/22 liothyronine 5 mcg tablet 5 mcg PO .B.i.d. 11/21/21 07/09/22 trazodone 50 mg tablet 50 mg PO HS 11/21/21 07/09/22 lorazepam 0.5 mg tablet 0.5 mg PO Q12H PRN 12/08/21 07/09/22 melatonin 3 mg capsule 9 mg PO HS 12/08/21 07/09/22 buspirone 10 mg tablet mg 01/27/22 06/10/22 fluconazole 150 mg tablet mg 01/27/22 03/16/22 prednisolone acetate 1 % eye drp 01/27/22 06/10/22 drops,suspension sertraline 25 mg tablet 100 mg PO Q24H 06/10/22 07/09/22 Previous Rx's Medication Instructions Recorded Lactobacillus acidophilus 0.5 mg 1 tab PO TIDWM 90 days #90 tabs 12/10/21 (100 million cell) tablet hydromorphone 2 mg tablet 2 mg PO Q4H PRN 5 days #30 tabs 12/10/21 ondansetron 4 mg disintegrating 4 mg PO Q6H PRN nausea and 12/10/21 tablet vomiting #10 tabs fluconazole 150 mg tablet 150 mg PO Q3D 2 doses #2 tabs 03/16/22 clobetasol 0.05 % topical ointment 1 applic topical ONCE #15 grams 06/10/22 estradiol 10 mcg vaginal tablet 10 mcg vaginal 2XW #24 tabs 06/10/22 (Yuvafem) Allergies Allergy/AdvReac Type Severity Reaction Status Date / Time auranofin Allergy Verified 06/24/22 16:59 cat dander Allergy Verified 06/24/22 16:59 Gadolinium-Containing Allergy Verified 06/24/22 16:59 Contrast Medi gluten Allergy Verified 06/24/22 16:59 gold keratinate Allergy Verified 06/24/22 16:59 gold sodium thiomalate Allergy Verified 06/24/22 16:59 lactose Allergy Verified 06/24/22 16:59 Opioids - Morphine Analogues Allergy Verified 06/24/22 16:59 goldshots Allergy Severe Anaphylaxis Uncoded 06/10/22 12:56 Review of Systems Status of ROS: Reports: 6 or more systems reviewed and unremarkable except as noted in History and below [facility] Medical History Abscess of sigmoid colon due to diverticulitis Anxiety Chronic fatigue syndrome Depression Diverticulitis of intestine with abscess History of Clostridioides difficile colitis History of Clostridioides difficile infection History of diverticulitis of colon (05/09/11) History of femur fracture History of hypothyroidism Hypothyroidism Insomnia Juvenile rheumatoid arthritis Left elbow pain Migraines Osteoporosis Sarcoidosis Sensorineural hearing loss (SNHL) of both ears Sigmoid diverticulitis Surgical History History of bilateral knee arthroplasty History of repair of rotator cuff History of tonsillectomy History of total hip arthroplasty History of total knee replacement S/P hammer toe correction Family History Father High blood pressure Hyperlipidemia Mother High blood pressure Hyperlipidemia Sister Seizure disorder Social History Narrative: She lives alone in [place]. 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 She does not smoke. She drinks alcohol about once a month. She uses no recreational drugs. She does have a history of chemical dependency. Healthcare power of criminal attorney is her sister Denise. Code status is full. Are you following a special diet: Yes (no gluten, lactose intolerent) Highest level of school completed/degree received: Master's degree Smoking Status: Never smoker Do you use any of these nicotine containing products: None Second hand tobacco smoke exposure: No How often do you have a drink containing alcohol: never How often do you have six or more drinks on one occasion: Never AUDIT-C Alcohol total score: 0 Non-prescribed substance use: denies use Caffeine: Yes (coffee 3x weekly) Are you now , , , , never or living with a partner: Social isolation score (0-1 are the most socially isolated patients): 0 Are you currently sexually active: No service: No Exam Const: Vital Signs, click to edit/add: Vital Signs - 24 hr 02/28/23 13:43 Temperature 97.6 F Pulse Rate [Right Pulse Oximeter] 68 Respiratory Rate 20 Blood Pressure [Le ft Upper Arm] 106/73 Pulse Oximetry 97 Oxygen Delivery Me thod Room Air Documenting provider has reviewed patient's vital signs: yes Common normals: no apparent distress, average body habitus, oriented x3, no limitations, healthy appearing and alert General appearance: cooperative, comfortable, well kempt, well developed and anxious HENMT: Common normals: normocephalic, head/scalp atraumatic, hearing grossly normal bilaterally and external ears normal Head and scalp: normocephalic and atraumatic External ear: external ears normal Eye: Common normals: PERRL, EOMs intact bilaterally, conjunctivae normal and no scleral icterus Conjunctiva: conjunctiva(e) normal Pupil: PERRL Neck & C-Spine: Common normals: full ROM, no lymphadenopathy, supple, no meningeal signs, no JVD and thyroid normal Thyroid: thyroid normal Other: Neck is supple but patient complains of midline tenderness throughout her neck, paraspinous regions as well. She states it feels like whiplash. Chest: Common normals: inspection of chest normal and palpation of chest normal Resp: Common normals: normal respiratory effort, no retractions, no use of accessory muscles and clear to auscultation bilaterally Auscultation: clear to auscultation bilaterally Cardio: Common normals: no JVD, regular rate, regular rhythm, S1 normal heart sound, S2 normal heart sound, no gallops, no clicks and no murmurs Rate: regular rate Rhythm: regular rhythm Heart sounds: S1 normal and S2 normal GI: Common normals: Normal to inspection, nondistended, normoactive bowel sounds present, soft to palpation, non-tender, no hepatosplenomegaly and no masses Palpation: soft and no hepatosplenomegaly Back & Pelvis: Common normals: thoracic and lumbar spine normal to inspection and thoraco-lumbar ROM normal Other: Complains of pain midline throughout her whole spine. Extremity: Common normals: normal to inspection, full ROM, normal capillary refill, no clubbing, cyanosis or edema, no calf tenderness and no pedal edema Other: Has midline scar that is well healed over the left knee. Surgical scars over the right femur that are well healed. There is a bruise noted inferiorly and laterally just below the knee joint line on the left side. There may be some suprapatellar swelling but I do not feel any joint line swelling. Patient ambulated in. I do not see any ecchymosis or abnormality on exam of her right femur/thigh. Neuro: [place] Coma Scale: document GCS findings [place] coma scale eye opening: Spontaneous (4) [place] coma scale verbal response: Orientated (5) Filomena coma scale motor response: Obey commands (6) Filomena coma scale total score: 15 Common normals: oriented x3, CN's II-XII intact bilaterally, moves all extremities and no focal motor deficits Sensorium/orientation: alert Meningeal signs: no meningeal signs Speech: speech normal Psych: Appearance: well kempt Course Course Hospital Course: Have discussed imaging. Have settled on cervical spine CT with this patient. We will x-ray her left knee and her right femur. We are going to x-ray her spine for her with a thoracic and lumbar spine. There is nothing really to indicate a point tenderness over her back that would necessitate advanced imaging at this time. Again if had the discussion with her about imaging with CT and the radiation. I do feel that imaging with plain films would be sufficient but she is quite concerned about her neck, thus have acquiesced and will be ordering a CT of her neck. Will do the triple swab as she has requested. We have discussed compression fractures of the spine sometimes do not show up immediately and it actually can take time for the vertebral body to compress down, she is aware of this as it sounds like this happened to her with her prior compression fracture. At this time, patient is stable. Will await imaging results to rule out any fracture, update any needed imaging if we do find anything. Reevaluation(s) Reevaluation #1: Reviewed no acute findings on her imaging. There is certainly arthritis throughout her neck and spine. The knee is a contusion. No concern for any breakdown of her plating of her right femur. No fractures were noted. Time: 16:12 Vital Signs Vital signs: Initial Vital Signs Temperature 97.6 F 07/09/22 13:43 Temperature Source Temporal Artery Scan 07/09/22 13:43 Pulse Rate 68 07/09/22 13:43 Pulse Rhythm 07/09/22 13:43 Pulse Strength 2+ Slightly Diminished 07/09/22 13:43 Respiratory Rate 20 07/09/22 13:43 Blood Pressure 106/73 07/09/22 13:43 Blood Pressure Mean 84 07/09/22 13:43 Blood Pressure Position Sitting 07/09/22 13:43 Pulse Oximetry 97 07/09/22 13:43 Oxygen Delivery Method 07/09/22 13:43 Vital Signs Temperature 97.6 F 07/09/22 13:43 Pulse Rate 68 07/09/22 13:43 Respiratory Rate 20 07/09/22 13:43 Blood Pressure 106/73 07/09/22 13:43 Pulse Oximetry 97 07/09/22 13:43 Oxygen Delivery Method 07/09/22 13:43 Temperature 97.6 F 07/09/22 13:43 Pulse Rate 68 07/09/22 13:43 Respiratory Rate 20 07/09/22 13:43 Blood Pressure 106/73 07/09/22 13:43 Pulse Oximetry 97 07/09/22 13:43 Oxygen Delivery Method 07/09/22 13:43 Medical Decision Making Lab Data Labs: Lab Results 07/09/22 Range/Units 14:12 SARS-CoV-2 (PCR) Negative SARS-CoV-2 (Negative) Influenza Type A (PCR) Negative PCR FLU A (Negative) Influenza Type B (PCR) Negative PCR FLU B (Negative) RSV (PCR) Negative PCR RSV (Negative) Imaging Data CT cervical spine: Attestation: I have reviewed the pertinent imaging results. Radiologist's impression: Patient: JULIETTE CEJA Facility:?[facility] Patient ID:?[id number] Site Patient ID:?[id number]. Site :?1960 Study:?CT Spine Cervical W/O-07/09/2022 2:27:52 PM Ordering Physician:?Aileen Oakes Final Report: INDICATION: Trauma. TECHNIQUE: CT cervical spine without contrast. COMPARISON: None. FINDINGS: Vertebrae: Alignment is normal. There are no fractures or suspicious bony lesions. Discs and facet joints: There are diffuse degenerative changes in the disc spaces and facet joints. Extraspinal findings: Biapical scarring. Paraspinous soft tissues are unremarkable. IMPRESSION: 1. No sign of acute injury. 2. Multilevel degenerative spondylosis. Please note that all CT scans at this facility use dose modulation, iterative reconstruction, and/or weight-based dosing when appropriate to reduce radiation dose to as low as reasonably achievable. Dictated by Noah Dickson MD @ 07/09/2022 3:13:19 PM (Electronic Signature) X-ray thoracic spine: Attestation: I have reviewed the pertinent imaging results. Radiologist's impression: Patient: JULIETTE CEJA Facility:?[facility] Patient ID:?[id number] Site Patient ID:?[id number]. Site :?1960 Study:?XRay Spine Thoracic 2 VIEWS-07/09/2022 2:59:47 PM Ordering Physician:?Aileen Oakes Final Report: Indication: Injury Technique: Two views of the thoracic spine were acquired Comparison: None Findings: No traumatic appearing malalignment. Moderate degenerative changes diffusely. Shallow scoliosis. No visible acute fracture, dislocation or destructive process Impression: Moderate degenerative changes diffusely. Scoliosis. No visible acute fracture, dislocation or destructive process. Dictated by Booker Toth MD @ 07/09/2022 3:44:23 PM (Electronic Signature) X-ray lumbar spine: Attestation: I have reviewed the pertinent imaging results. Radiologist's impression: Patient: JULIETTE CEJA Facility:?[facility] Patient ID:?[id number] Site Patient ID:?[id number]. Site :?1960 Study:?XRay Spine Lumbar 2 VIEWS-07/09/2022 3:09:43 PM Ordering Physician:?Aileen Oakes Final Report: Indication: Fall, pain Comparison: None available. Technique: AP and lateral views lumbar spine were obtained. Findings: The lumbar vertebral body heights are grossly maintained with straightening of the normal cervical lordosis. There is no significant spondylolisthesis. There is S shaped scoliotic deformity of the AP alignment. There is moderate degenerative disc disease and moderate facet arthrosis. The soft tissues are unremarkable. Impression: Moderate degenerative changes of the lumbar spine without acute osseous abnormality. Dictated by Colt Scales MD @ 07/09/2022 3:58:47 PM (Electronic Signature) X-ray left knee: Attestation: I have reviewed the pertinent imaging results. My impression: No acute fracture my preliminary read. Radiologist's impression: Patient: JULIETTE CEJA Facility:?[facility] Patient ID:?[id number] Site Patient ID:?[id number]. Site :?1960 Study:?XRay Knee Left 2 VIEWS-07/09/2022 3:03:21 PM Ordering Physician:Ese Oakes Final Report: Indication: Trauma. Technique: Left knee, 2 views. Comparison: None. Findings/Impression: Bones: Alignment is normal. No fractures or bone lesions. No sign of acute injury. Joint spaces: Left knee arthroplasty without complication. Soft tissues: Unremarkable. Dictated by Noah Dickson MD @ 07/09/2022 3:44:01 PM (Electronic Signature) X-ray right femur: Attestation: I have reviewed the pertinent imaging results. My impression: No acute fracture on prelimary review. Radiologist's impression: Patient: JULIETTE CEJA Facility:?[facility] Patient ID:?[id number] Site Patient ID:?[id number]. Site :?1960 Study:?XRay Extremity Right 2 VIEWS FEMUR-07/09/2022 3:04:20 PM Ordering Physician:?Aileen Oakes Final Report: Indication: Trauma. Technique: Right femur, 5 views. Comparison: None. Findings/Impression: Bones: Alignment is normal. No fractures or bone lesions. No sign of acute injury. Joint spaces: Right hip arthroplasty with femoral plate and screw fixation and partial visualization of right knee arthroplasty without acute complication. Soft tissues: Unremarkable. Dictated by Noah Dickson MD @ 07/09/2022 3:45:44 PM (Electronic Signature) Critical Care Time Critical Care Time Critical Care Time: No Discharge Plan Discharge Clinical Impression: Back pain, Muscle strain of right thigh, Fall, Cervical strain, acute, Contusion of left knee Patient Disposition: Home, Self-Care Condition: Stable Instructions: Cervical Strain (ED), Contusion in Adults (ED), Back Pain (ED) Additional Instructions: Can follow-up with your primary or Dr. Mijares as needed. Tylenol and ibuprofen per bottle directions as needed for pain control. Prescriptions: No Action fluconazole 150 mg tablet 150 mg PO Q3D Qty: 2 0RF Rx Instructions: may repeat second dose 72 hrs after first dose if symptoms persist estradiol [Yuvafem] 10 mcg tablet 10 mcg vaginal 2XW Qty: 24 3RF clobetasol 0.05 % ointment 1 applic topical ONCE Qty: 15 3RF Rx Instructions: Apply as needed to affected area trazodone 50 mg tablet 50 mg PO HS liothyronine 5 mcg tablet 5 mcg PO .B.i.d. estradiol 0.5 mg tablet 0.5 mg PO DAILY clobetasol 0.05 % ointment 1 applic TOPICAL .qod lorazepam 0.5 mg tablet 0.5 mg PO Q12H PRN melatonin 3 mg capsule 9 mg PO HS hydromorphone 2 mg Tablet 2 mg PO Q4H PRN5 Days Qty: 30 0RF Lactobacillus acidophilus 0.5 mg (100 million cell) Tablet 1 tab PO TIDWM 90 Days Qty: 90 0RF ondansetron 4 mg tablet,disintegrating 4 mg PO Q6H PRN (Reason: nausea and vomiting) Qty: 10 0RF sertraline 25 mg tablet 100 mg PO Q24H fluconazole 150 mg tablet prednisolone acetate 1 % drops,suspension buspirone 10 mg tablet Follow Up/Referrals: Nivia Bruno MD [Primary Care Provider] - Stand Alone Forms: [facility] Info Instructions
--- NOTE | 2022-07-09 14:07 | CRLHL7_ITS ---
For Patients: As a result of the Cures Act, medical imaging exams and procedure reports are released immediately into your electronic medical record. You may view this report before your referring provider. If you have questions, please contact your health care provider. Indication: Injury Technique: Two views of the thoracic spine were acquired Comparison: None Findings: No traumatic appearing malalignment. Moderate degenerative changes diffusely. Shallow scoliosis. No visible acute fracture, dislocation or destructive process Impression: Moderate degenerative changes diffusely. Scoliosis. No visible acute fracture, dislocation or destructive process. Dictated by Booker Toth MD @ 07/09/2022 3:44:23 PM (Electronically Signed)
--- NOTE | 2022-07-09 14:07 | CRLHL7_ITS ---
For Patients: As a result of the Cures Act, medical imaging exams and procedure reports are released immediately into your electronic medical record. You may view this report before your referring provider. If you have questions, please contact your health care provider. INDICATION: Trauma. TECHNIQUE: CT cervical spine without contrast. COMPARISON: None. FINDINGS: Vertebrae: Alignment is normal. There are no fractures or suspicious bony lesions. Discs and facet joints: There are diffuse degenerative changes in the disc spaces and facet joints. Extraspinal findings: Biapical scarring. Paraspinous soft tissues are unremarkable. IMPRESSION: 1. No sign of acute injury. 2. Multilevel degenerative spondylosis. Please note that all CT scans at this facility use dose modulation, iterative reconstruction, and/or weight-based dosing when appropriate to reduce radiation dose to as low as reasonably achievable. Dictated by Noah Dickson MD @ 07/09/2022 3:13:19 PM (Electronically Signed)
--- NOTE | 2022-07-09 14:07 | CRLHL7_ITS ---
For Patients: As a result of the Cures Act, medical imaging exams and procedure reports are released immediately into your electronic medical record. You may view this report before your referring provider. If you have questions, please contact your health care provider. Indication: Trauma. Technique: Left knee, 2 views. Comparison: None. Findings/Impression: Bones: Alignment is normal. No fractures or bone lesions. No sign of acute injury. Joint spaces: Left knee arthroplasty without complication. Soft tissues: Unremarkable. Dictated by Noah Dickson MD @ 07/09/2022 3:44:01 PM (Electronically Signed)
--- NOTE | 2022-07-09 14:07 | CRLHL7_ITS ---
For Patients: As a result of the Century Cures Act, medical imaging exams and procedure reports are released immediately into your electronic medical record. You may view this report before your referring provider. If you have questions, please contact your health care provider. Indication: Fall, pain Comparison: None available. Technique: AP and lateral views lumbar spine were obtained. Findings: The lumbar vertebral body heights are grossly maintained with straightening of the normal cervical lordosis. There is no significant spondylolisthesis. There is S shaped scoliotic deformity of the AP alignment. There is moderate degenerative disc disease and moderate facet arthrosis. The soft tissues are unremarkable. Impression: Moderate degenerative changes of the lumbar spine without acute osseous abnormality. Dictated by Colt Scales MD @ 07/09/2022 3:58:47 PM (Electronically Signed)
--- NOTE | 2022-07-09 14:07 | CRLHL7_ITS ---
For Patients: As a result of the Cures Act, medical imaging exams and procedure reports are released immediately into your electronic medical record. You may view this report before your referring provider. If you have questions, please contact your health care provider. Indication: Trauma. Technique: Right femur, 5 views. Comparison: None. Findings/Impression: Bones: Alignment is normal. No fractures or bone lesions. No sign of acute injury. Joint spaces: Right hip arthroplasty with femoral plate and screw fixation and partial visualization of right knee arthroplasty without acute complication. Soft tissues: Unremarkable. Dictated by Noah Dickson MD @ 07/09/2022 3:45:44 PM (Electronically Signed)
[2022-07-09 14:57] LABS: PCR FLU A Negative PCR FLU A (Negative); PCR FLU B Negative PCR FLU B (Negative); PCR RSV Negative PCR RSV (Negative)
[2022-07-09 15:10] LABS: SARS PCR* Negative SARS-CoV-2 (Negative)
[2022-07-09] MEDS: KETOROLAC 30 MG/ML inj IM (15:43)
== END 2022-07-09 16:25 | disposition home or self-care (01) ==
PROVIDERS: Emergency Provider Family Medicine; PCP Family Medicine
DX: S76.919A Strain of unspecified muscles, fascia and tendons at thigh level, unspecified thigh, initial encounter (principal); S16.1XXA Strain of muscle, fascia and tendon at neck level, initial encounter; S80.02XA Contusion of left knee, initial encounter; M54.9 Dorsalgia, unspecified; W18.39XA Other fall on same level, initial encounter
CPT/HCPCS: 72070; 72100; 72125; 73552; 73560; 87502; 87634; 87635; 96372; 99284; 99285; J1885

== ENCOUNTER 2022-08-05 11:27 | Outpatient (CLI) | payer MEDICARE, BC, SELFPAY | END 2022-08-05 11:28 | disposition home or self-care (01) | PROVIDERS: PCP Family Medicine; Visit Provider Obstetrics & Gynecology | DX: R68.89 Other general symptoms and signs (principal); N89.8 Other specified noninflammatory disorders of vagina; D64.9 Anemia, unspecified | CPT/HCPCS: 84439; 84443; 84481 ==

== ENCOUNTER 2022-08-20 18:29 | Emergency (ER) | payer MEDICARE, BC, SELFPAY ==
[2022-08-20 18:33] VITALS: BP 113/71; PULSE 77; RESP 20; TEMP 36.7; O2SAT 97; BMI 21.4
--- NOTE | 2022-08-20 19:04 | CRLHL7_ITS ---
For Patients: As a result of the Century Cures Act, medical imaging exams and procedure reports are released immediately into your electronic medical record. You may view this report before your referring provider. If you have questions, please contact your health care provider. INDICATION: TECHNIQUE: Ultrasound venous duplex right lower extremity. COMPARISON: None. FINDINGS: The right common femoral, superficial femoral, deep femoral, popliteal, posterior tibial, and greater saphenous veins are fully compressible with normal waveforms. The contralateral left common femoral artery is fully compressible with normal waveform. No masses evident. IMPRESSION: Normal ultrasound of the right lower extremity veins. Dictated by: Walter Bill MD @ 08/20/2022 19:57:20 (Electronically Signed)
--- NOTE | 2022-08-20 19:05 | ED_ITS ---
HPI - General Adult General Chief complaint: Fever Stated complaint: Wants to be tested for covid Time Seen by Provider: 08/20/22 18:32 History of Present Illness HPI narrative: This 62-year-old female comes in reporting generalized malaise including fever, ear pain, congestion, and pain in her right calf. These symptoms started 2 days ago. She states that she wants to be tested for COVID. She does not report any cough or shortness of breath. She states that her temperature is normally 97 and she measured a temperature over 99. She reports a constant pain in her right calf but there is no sign of swelling. She does not have a prior history of DVT. She does have a remote history of femur fracture in that right leg that was repaired surgically. Related Data Home Medications Medication Instructions Recorded Confirmed clobetasol 0.05 % topical ointment 1 applic topical .qod 11/21/21 08/01/22 liothyronine 5 mcg tablet 5 mcg PO .B.i.d. 11/21/21 08/05/22 trazodone 50 mg tablet 50 mg PO HS 11/21/21 08/05/22 lorazepam 0.5 mg tablet 0.5 mg PO Q12H PRN 12/08/21 08/05/22 melatonin 3 mg capsule 9 mg PO HS 12/08/21 08/05/22 buspirone 10 mg tablet mg 01/27/22 08/05/22 sertraline 25 mg tablet 100 mg PO Q24H 06/10/22 08/05/22 Previous Rx's Medication Instructions Recorded Lactobacillus acidophilus 0.5 mg 1 tab PO TIDWM 90 days #90 tabs 12/10/21 (100 million cell) tablet hydromorphone 2 mg tablet 2 mg PO Q4H PRN 5 days #30 tabs 12/10/21 ondansetron 4 mg disintegrating 4 mg PO Q6H PRN nausea and 12/10/21 tablet vomiting #10 tabs clobetasol 0.05 % topical ointment 1 applic topical ONCE #15 grams 06/10/22 estradiol 10 mcg vaginal tablet 10 mcg vaginal 2XW #24 tabs 06/10/22 (Yuvafem) ondansetron 4 mg oral soluble film 4 mg PO Q6H PRN nausea and 08/01/22 vomiting #30 ea fluconazole 200 mg tablet 200 mg PO Q3D #2 tabs 08/04/22 (Diflucan) ketorolac 10 mg tablet 10 mg PO Q8H 5 days #15 tabs 08/20/22 Allergies Allergy/AdvReac Type Severity Reaction Status Date / Time auranofin Allergy Verified 08/01/22 13:04 cat dander Allergy Verified 08/01/22 13:04 Gadolinium-Containing Allergy Verified 08/01/22 13:04 Contrast Medi gluten Allergy Verified 08/01/22 13:04 gold keratinate Allergy Verified 08/01/22 13:04 gold sodium thiomalate Allergy Verified 08/01/22 13:04 lactose Allergy Verified 08/01/22 13:04 Opioids - Morphine Analogues Allergy Verified 08/01/22 13:04 goldshots Allergy Severe Anaphylaxis Uncoded 08/01/22 13:04 Review of Systems Status of ROS: Reports: 10 or more systems reviewed and unremarkable except as noted in History and below Narrative: Constitutional: No fevers, no weight gain or loss. Eyes: No discharge. No vision changes. HENT: She reports bilateral ear pain and states that she has had some surgeries to her ears in the past. Cardiovascular: No chest pain, no palpitations. Respiratory: No shortness of breath, no wheezes, no cough. Gastrointestinal: No abdominal pain, no vomiting. She has had some diarrhea. Genitourinary: No dysuria, no hematuria. Musculoskeletal: Normal range of motion. Skin: No rashes, no pruritis. Neurological: No dizziness, weakness, sensory change, speech change. Endo/Heme/Allergies: No bruising or bleeding. No polydipsia. Pysch: no suicidality, no anxiety, no insomnia. All other systems reviewed and are negative. [facility] Medical History (Updated 08/20/22 @ 20:19 by Adam Josue MD) Abscess of sigmoid colon due to diverticulitis ?K57.20 - Diverticulitis of large intestine with perforation and abscess without bleeding (ICD-10) Anxiety ?F41.9 - Anxiety disorder, unspecified (ICD-10) AOM (acute otitis media) ?H66.90 - Otitis media, unspecified, unspecified ear (ICD-10) Chronic fatigue syndrome ?R53.82 - Chronic fatigue, unspecified (ICD-10) Depression ?F32.A - Depression, unspecified (ICD-10) Diverticulitis of intestine with abscess ?K57.80 - Diverticulitis of intestine, part unspecified, with perforation and abscess without bleeding (ICD-10) History of Clostridioides difficile colitis ?Z86.19 - Personal history of other infectious and parasitic diseases (ICD- 10) History of Clostridioides difficile infection ?Z86.19 - Personal history of other infectious and parasitic diseases (ICD- 10) History of diverticulitis of colon (05/09/11) ?Z87.19 - Personal history of other diseases of the digestive system (ICD-10) History of femur fracture ?Z87.81 - Personal history of (healed) traumatic fracture (ICD-10) History of hypothyroidism ?Z86.39 - Personal history of other endocrine, nutritional and metabolic disease (ICD-10) Hypothyroidism ?E03.9 - Hypothyroidism, unspecified (ICD-10) Insomnia ?G47.00 - Insomnia, unspecified (ICD-10) 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 - Unspecified juvenile rheumatoid arthritis of unspecified site (ICD- 10) Left elbow pain ?M25.522 - Pain in left elbow (ICD-10) Migraines ?G43.909 - Migraine, unspecified, not intractable, without status migrainosus (ICD-10) Nausea ?R11.0 - Nausea (ICD-10) Osteoporosis ?M81.0 - Age-related osteoporosis without current pathological fracture (ICD- 10) Sarcoidosis ?D86.9 - Sarcoidosis, unspecified (ICD-10) Sensorineural hearing loss (SNHL) of both ears ?H90.3 - Sensorineural hearing loss, bilateral (ICD-10) Sigmoid diverticulitis ?K57.32 - Diverticulitis of large intestine without perforation or abscess without bleeding (ICD-10) UTI (urinary tract infection) ?N39.0 - Urinary tract infection, site not specified (ICD-10) Yeast infection ?B37.9 - Candidiasis, unspecified (ICD-10) Surgical History History of bilateral knee arthroplasty ?Z96.653 - Presence of artificial knee joint, bilateral (ICD-10) History of repair of rotator cuff ?Z98.890 - Other specified postprocedural states (ICD-10) History of tonsillectomy ?Z90.89 - Acquired absence of other organs (ICD-10) History of total hip arthroplasty ?Z96.649 - Presence of unspecified artificial hip joint (ICD-10) History of total knee replacement ?Z96.659 - Presence of unspecified artificial knee joint (ICD-10) S/P hammer toe correction ?Z98.890 - Other specified postprocedural states (ICD-10) ?Z87.39 - Personal history of other diseases of the musculoskeletal system and connective tissue (ICD-10) Family History Father High blood pressure Hyperlipidemia Mother High blood pressure Hyperlipidemia Sister Seizure disorder Social History Narrative: She lives alone in [place]. 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 She does not smoke. She drinks alcohol about once a month. She uses no recreational drugs. She does have a history of chemical dependency. Healthcare power of nuclear radiologist is her sister Denise. Code status is full. Are you following a special diet: Yes (no gluten, lactose intolerent) Highest level of school completed/degree received: Master's degree Smoking Status: Former smoker Do you use any of these nicotine containing products: None Second hand tobacco smoke exposure: No How often do you have a drink containing alcohol: never How often do you have six or more drinks on one occasion: Never AUDIT-C Alcohol total score: 0 Non-prescribed substance use: denies use Caffeine: Yes (coffee 3x weekly) Are you now , , , , never or living with a partner: Social isolation score (0-1 are the most socially isolated patients): 0 Are you currently sexually active: No service: No Exam Narrative: Exam Narrative: Constitutional: Well-developed, well-nourished, no acute distress. HEENT: Normocephalic, atraumatic. Neck: Normal range of motion. Nontender. Supple. Heart: Regular. No murmurs. Normal rate. Intact distal pulses. Lungs: Clear to auscultation. No chest discomfort. No wheezes, rhonchi, or rales. Abdomen: Normal bowel sounds. Nontender. No rebound tenderness. Genitalia: Deferred. Back: No midline tenderness. Normal range of motion. Extremities: Normal range of motion. No injury. Pain in the right calf without sign of erythema or swelling. Skin: Intact. No rash. Warm. No erythema or pallor. Neurologic: No altered sensation. No weakness. Alert and oriented. Psychiatric: No suicidality. No anxiety or depression. No insomnia. Nursing notes and vitals signs are reviewed. Const: Vital Signs, click to edit/add: Vital Signs - 24 hr 08/20/22 18:33 Temperature 98.0 F Pulse Rate [Right Pulse Oximeter] 77 Respiratory Rate 20 Blood Pressure [Ri ght Upper Arm] 113/71 Pulse Oximetry 97 Oxygen Delivery Me thod Room Air Course Vital Signs Vital signs: Initial Vital Signs Temperature 98.0 F 08/20/22 18:33 Temperature Source Temporal Artery Scan 08/20/22 18:33 Pulse Rate 77 08/20/22 18:33 Respiratory Rate 20 08/20/22 18:33 Blood Pressure 113/71 08/20/22 18:33 Blood Pressure Mean 85 08/20/22 18:33 Blood Pressure Position Sitting 08/20/22 18:33 Pulse Oximetry 97 08/20/22 18:33 Oxygen Delivery Method Room Air 08/20/22 18:33 Vital Signs Temperature 98.0 F 08/20/22 18:33 Pulse Rate 77 08/20/22 18:33 Respiratory Rate 20 08/20/22 18:33 Blood Pressure 113/71 08/20/22 18:33 Pulse Oximetry 97 08/20/22 18:33 Oxygen Delivery Method Room Air 08/20/22 18:33 Temperature 98.0 F 08/20/22 18:33 Pulse Rate 77 08/20/22 18:33 Respiratory Rate 20 08/20/22 18:33 Blood Pressure 113/71 08/20/22 18:33 Pulse Oximetry 97 08/20/22 18:33 Oxygen Delivery Method Room Air 08/20/22 18:33 Medical Decision Making MDM Narrative Medical decision making narrative: This patient comes in with a stated concern of having COVID. A nasal swab re turns negative for COVID, influenza, and RSV. Additionally she was reporting pain in her right calf region. An ultrasound of the right lower extremity shows no sign of DVT. This was also very reassuring to the patient. She is okay to be discharged home. She did receive an intramuscular injection of Toradol 30 mg. Prescription for Toradol as also provided to her pharmacy. Lab Data Labs: Lab Results 08/20/22 Range/Units 18:37 SARS-CoV-2 (PCR) Negative SARS-CoV-2 (Negative) Influenza Type A (PCR) Negative PCR FLU A (Negative) Influenza Type B (PCR) Negative PCR FLU B (Negative) RSV (PCR) Negative PCR RSV (Negative) Discharge Plan Discharge Clinical Impression: Acute leg pain, Diarrhea Patient Disposition: Home, Self-Care Condition: Stable Additional Instructions: Take medication as needed and indicated. Follow up with MD or return if worsening. Prescriptions: New ketorolac 10 mg tablet 10 mg PO Q8H 5 Days Qty: 15 0RF No Action estradiol [Yuvafem] 10 mcg tablet 10 mcg vaginal 2XW Qty: 24 3RF clobetasol 0.05 % ointment 1 applic topical ONCE Qty: 15 3RF Rx Instructions: Apply as needed to affected area trazodone 50 mg tablet 50 mg PO HS liothyronine 5 mcg tablet 5 mcg PO .B.i.d. clobetasol 0.05 % ointment 1 applic TOPICAL .qod lorazepam 0.5 mg tablet 0.5 mg PO Q12H PRN melatonin 3 mg capsule 9 mg PO HS hydromorphone 2 mg Tablet 2 mg PO Q4H PRN5 Days Qty: 30 0RF Lactobacillus acidophilus 0.5 mg (100 million cell) Tablet 1 tab PO TIDWM 90 Days Qty: 90 0RF ondansetron 4 mg tablet,disintegrating 4 mg PO Q6H PRN (Reason: nausea and vomiting) Qty: 10 0RF sertraline 25 mg tablet 100 mg PO Q24H buspirone 10 mg tablet ondansetron 4 mg film 4 mg PO Q6H PRN (Reason: nausea and vomiting) Qty: 30 0RF fluconazole [Diflucan] 200 mg tablet 200 mg PO Q3D Qty: 2 0RF Follow Up/Referrals: Nivia Bruno MD [Primary Care Provider] - Stand Alone Forms: [facility] Info Instructions
--- OUTSIDE RECORDS SUMMARY | 2022-08-20 19:14 | XMS_ITS | Continuity of Care Document ---
Author Name Unknown Organization [facility] Address [address] [address] [place] [address] Care Team Providers Care Civil Engineer Land Development Name Role Phone [place], [place] Unavailable Unav ailable Procedures Procedure Date Colono Pt Doc Pt W/o Advance Directives Directive Yes / No Effective Date File Name No Information Encounters Encounter Description Practice Location Reason(s) For Visit Diagnoses Date Provider Providers Copied on Encounter [facility], [address] [address], [place], [place], [id number], [facility] No Information [facility]. [address] [address], [place], [place], [id number], . tel:[phone] Referring Provider: Dav Farnsworth MD P, [address] [facility] [address], [place], [address]. tel:[phone] Family History Family Member Type Diagnosis Age At Onset No Information Payers Payer name Insurance type Covered libertarian ID Authoriza tion(s) No Information Social History Type Description Quantity Date Captured Comments Sex Female Smoking Status No Information Chief Complaint And Reason For Visit No Information Reason For Referral Reason For Referral No Information Plan Of Treatment Date Type Action Status No Information History Of Present Illness Encounter Date Complaint History Of Prese nt Illness No Information Functional Status Date Functional Assessmen t No Information Instructions Date Instruction Additional Infor mation No Information Assessments Type Assessment Date No Information Patient Care Teams Name Effective Dates (start - stop) Status Members No Information
--- OUTSIDE RECORDS SUMMARY | 2022-08-20 19:14 | XMS_ITS | Continuity of Care Document ---
Author Name Unknown Organization [facility] rosa maria Address [address] [place] [address] Phone Care Team Providers Care Personal Chef Name Role Phone Will MD LARSON, Leif Unavailable Unavailabl e Allergies, Adverse Reactions, Alerts Substance Reaction Status Criticality GOLD TRIBROMIDE Active No Informati on Medications Medication Instructions Dosage Effective Dates (start - stop) Status Comments MyoCalm 25 mg-50 mg-20 mg tablet - Active melatonin 10 mg tablet - Active Tylenol 325 mg tablet take 2 tablet by o ral route every 6 hours as needed 650 MG - Active Dilaudid 2 mg tablet take 1 tablet prn. - Active Estrace 0.01% (0.1 mg/gram) vaginal cream insert (1G) by vaginal route every week 1 G - Active clobetasol 0.05 % topical cream apply by topical route 2 times every day a thin layer to the affected area(s) 0.00 - Active buspirone 10 mg tablet take 1 tablet by oral route 2 times every day 10 MG - Active trazodone 50 mg tablet - Active Procedures Procedure Date Drug Urine Toxology With Chromatography OFFICE/OUTPATIENT VISIT, NEW PT-FOCUSED HLTH RISK ASSMT OFFICE/OUTPATIENT VISIT, NEW Advance Directives Directive Yes / No Effective Date File Name No Information Encounters Encounter Description Practice Location Reason(s) For Visit Diagnoses Date Provider Providers Copied on Encounter [facility], [address] [place] [address], [id number] , [place] tel:[phone] [facility] No Information 2 Will Leif. [address] [place], [id number] , [place]. tel:[phone] [facility], [address] [place] [address] [place], [id number] , [place] tel:[phone] [facility] [place] No Information 1 Nolan Gilberto. [address] [place], [id number] , [place]. tel:[phone] OFFICE/OUTPA TIENT VISIT, [facility], [address] [place], [place] [address], [id number] , [place] tel:[phone] [facility] Leg Pain (chief complaint) Encounter for therapeutic drug level monitoringLong term (current) use of opiate analgesicLow back pain, unspecifiedPain in left shoulderEncounter for screening for other disorderCausalgia of right lower limb 1 Nolan Gilberto. [address] [place], [id number] , [place]. tel:[phone] Referring Provider: Leif Walsh, [address] [place] [address] [place], [address] . tel:[phone] OFFICE/OUTPA TIENT VISIT, [facility], [address] [place], [place] [address], [id number] , [place] [phone] [facility] back and hip pain (chief complaint) LumbagoCervicalgia -201 [address] [place] [address] [place] [place], [id number] , [place]. tel:[phone] Referring Provider: Leif Walsh, [address] [place] [address] [place], [address] . tel:[phone] Family History Family Member Type Diagnosis Age At Onset Father Problem (finding) back issues Payers Payer name Insurance type Covered constitution party ID Maci hampton(s) Medicare MB [id number] Social History Type Description Quantity Date Captured Comments Alcohol Use Details Unknown Caffeine Use Details Unknown Tobacco Use Status No Information Smoking Status No Information Sex Female Chief Complaint And Reason For Visit No Information Reason For Referral Reason For Referral No Information Plan Of Treatment Date Type Action Status Goal ALT (SGPT). Due on due Goal UDT. Due on due Goal OARS. Due on due Goal Review Allergy List. Due on due Goal PHQ-9. Due on du e Goal Update Social History. Due o n due Goal Medication Reconciliation. D ue on due Goal Height. Due on d ue Goal BARGAIN TABLE CLERK Paperwork. Due on due Goal Order Annual PT. Due on due Goal FLEET SALES ASSOCIATE Scanned. Due on due Goal Creatinine. Due on 15 due Goal AST (SGOT). Due on due Goal Weight. Due on d ue Goal Tobacco Use. Due on due Goal AST (SGOT). Due on 15 due Goal Creatinine. Due on due Goal FLEET SALES ASSOCIATE Scanned. Due on due Goal Order Annual PT. Due on due Goal BARGAIN TABLE CLERK Paperwork. Due on due Goal ALT (SGPT). Due on 15 due Goal UDT. Due on due Goal OARS. Due on due Goal AST (SGOT). Due on due Goal OARS. Due on due Goal Creatinine. Due on due Goal BARGAIN TABLE CLERK Paperwork. Due on due Goal FLEET SALES ASSOCIATE Scanned. Due on due Goal ALT (SGPT). Due on due Goal UDT. Due on due Goal Order Annual PT. Due on due Goal Tobacco Use. Due on due Goal Weight. Due on d ue Goal Height. Due on d ue Goal Medication Reconciliation. D ue on due Goal Update Social History. Due o n due Goal PHQ-9. Due on du e Goal Review Allergy List. Due on due Goal Review Allergy List. Due on due Goal PHQ-9. Due on du e Goal Update Social History. Due o n due Goal Medication Reconciliation. D ue on due Goal Height. Due on d ue Goal Weight. Due on d ue Goal Tobacco Use. Due on due History Of Present Illness Encounter Date Complaint History Of Prese nt Illness Leg Pain (comments) Mrs. Brown is a pleasant 60 y/o woman here for initial consult for right thigh and hip pain referred by Dr. Tobias Martin through [facility]. This pain began after falling on ice and fracturing her R femur in 2018. [facility] did her initial trauma surgery at the time. Dr. Martin then completed bone grafting on her right femur recently and believes that her new femur hardware may be irritating her R hip hardware from a hip replacement in 1995. Denies any leg numbness or tingling and endorses swelling in her R thigh. She is following up at [place] when she is able to schedule. Pain is described as aching and stiff. Pain averages 7/10.In addition, she c/o neck and lower back pain that she believes is linked to a difference in leg lengths. Denies any lower back surgeries. 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 She has tried PT for her right hip without relief in the past. Lumbar ESIs have provided her with 2 weeks of pain relief before. She has never had an RFA. Long hx of other MSK issues, including BL TKA's and left shoulder surgery.Currently managed on Lorazepam 0.5mg and last filled a Dilaudid 2mg QID RX on 05/08/[address] Mijares at [facility]. She takes 1-2 Dilaudid per month.Mrs. Brown is interested in pain management and medical cannabis certification through [facility]. No other concerns today. Leg Pain Duration: chroni c. Severity level is 7. It occurs constantly. Location: right thigh and hip. The pain is aching. The pain is aggravated by bending, lifting, movement, sitting, walking, standing, housework, stairs and running. The pain is relieved by heat, ice, massage, pain/RX meds, physical therapy, rest and stretching. Functional Status Date Functional Assessmen t No Information Instructions Date Instruction Additional Infor mation Continue current medication Reviewed medications New medication is prescribed Follow exercise program Depression Screen Oswestry Score Assessments Type Assessment Date No Information Patient Care Teams Name Effective Dates (start - stop) Status Members No Information
--- OUTSIDE RECORDS SUMMARY | 2022-08-20 19:14 | XMS_ITS | Continuity of Care Document ---
Author Name Unknown Organization [facility] Address [address] [address] [place] [address] Phone Care Team Providers Care Host Hostess Name Role Phone Tavia Horne Unavailable Unavailable [...] CRS Charges Telephone E&M III 21-30 Min MD SUSU CRS Charges CRS Charges Ugi Endo; W/bx 1/mx Level Iv-surg Path Gross/micro 14 Level Iv-surg Path Gross/micro 14 Offic/outpt E&m Estab Mod-hi 2 14 1036F [id number] Colonoscopy Flex; Dx (jan Pro) 13 CRS Charges Colonoscopy Flex; Dx (jan) 08 Colon W/submucosal Inject Colonoscopy Flex; W/remov Offic Cons New/estab Mod- Advance Directives Directive Yes / No Effective Date File Name No Information Encounters Encounter Description Practice Location Reason(s) For Visit Diagnoses Date Provider Providers Copied on Encounter [facility] JENNIFER GUERRERO [address] [address], [place], [id number], [place] tel:[phone] [facility] No Information Edstrchantal Squires. [address] [facility], [facility] [address], [place], [place], [id number], [place]. tel:[phone] [facility] CES[place] [address] [address], [place], [id number], [place] tel:[phone] [facility] Diverticulosis of colon (without mention of hemorrhage)Dvr tclos of lg int w/o perforation or abscess w/o bleeding No Information Referring Provider: Referral Self. [facility] JENNIFER GUERRERO [address] [address], [place], [id number], [place] tel:[phone] [facility] No Information Aug-2 5-202 2 No Information Telephone E&M III 21-30 Min SUSU [facility], [address] [address], [place], [id number], [place] tel:[phone] [facility] GI Symptoms or Concerns (chief complaint) Diverticulitis 2 Edstrom [facility] Squires. [address] [facility], [facility] [address], [place], [id number], [place]. tel:[phone] Referring Provider: Referral Self. [facility], [address] [address], [place], [address], [place] tel:[phone] [facility] No Information 2 Link MD Null. [address] [facility] [address], [place], [place], [address], [place]. tel:[phone] [facility], [address] [address], [place], [address], [place] tel:[phone] [facility] Diverticulosis of colon (without mention of hemorrhage)Per pinky history of colonic polypsDvtrcli of lg int w/o perforation or abscess w/o bleedingDvrtcl os of lg int w/o perforation or abscess w/o bleedingPerson al history of colonic polyps 0 9 No Information Referring Provider: Nivia Bruno MD, [address] [place] [address], [address]. tel:[phone] [facility], [address] [address], [facility] [place], [address], [place] tel:[phone] [facility] History of colon polypsDivertic ular disease of large intestineDvtrc li of lg int w/o perforation or abscess w/o bleedingDvrtcl os of lg int w/o perforation or abscess w/o bleedingPerson al history of colonic polyps 5 Javad Demarco. [address] [facility], [address], [place], [address], [place]. tel:[phone] Referring Provider: Heladio Martins MD, [address] [place] [address], [address]. tel:[phone] [facility], [address] [address], [place], [address], [place] tel:[phone] [facility] 4 Tatiana Ray. [address] [place] [address], [place] [address], [place], [place], [id number], [place]. tel:[phone] [facility], [address] [address], [place], [address], [place] tel:[phone] [facility] Hiatal HerniaPolyp-in chalo/rect/stom- unc BehLUQ PainGastric Polyp-benignGa stric Polyp-benignLU Q PainHiatal Hernia 4 Nelson Ferris. [address] [place] [address], [id number], [place]. tel:[phone] Referring Provider: Heladio Martins MD, [address] [place] [address], [address]. tel:[phone] [facility], [address] [address], [place], [address], [place] tel:[phone] [facility] Pain 4 Tatiana Ray. [address] [place] [address], [id number], [place]. tel:[phone] Referring Provider: Heladio Martins MD, [address] [place] [address], [address]. tel:[phone] Offic/outpt E&m Estab Mod-hi 2 [facility], [address] [address], [place], [address], [place] tel:[phone] [facility] LUQ PainDiarrhea 4 Tatiana Ray. [address] [place] [address], [id number], [place]. tel:[phone] Referring Provider: Heladio Martins MD, [address] [place] [address], [address]. tel:[phone] [facility], [address] [address], [place], [id number], [place] tel:[phone] [facility] Diverticulosis Of ColonHx Of Digest Disease NecDiverticulo sis Of ColonHx Of Digest Disease Nec 3 No Information Referring Provider: Heladio Martins MD, [address] [place] [address], [place], [address]. tel:[phone] [facility], [address] [address], [place], [id number], [place] tel:[phone] [facility] Diverticulosis Of ColonDiverticu litis Of ColonDiverticu litis Of Colon 2 No Information Referring Provider: Heladio Martins MD, [address] [place] [address], [place], [address]. tel:[phone] [facility], [address] [address], [place], [id number], [place] tel:[phone] [facility] Colon Cancer ScreeningPerso nal History Colon PolypsDivertic ulosis Of Colon 8 No Information Referring Provider: Daniel Griffin, [address] [place] [address], [place], [address]. tel:[phone] [facility], [address] [address], [place], [id number], [place] tel:[phone] [facility] Personal history colon polyps 6 No Information Offic Cons New/estab [facility], [address] [address], [place], [address], [place] tel:[phone] [facility] Diverticulosis Of ColonPolyp-int es/rect/stom-u nc beh 6 [...] Covered libertarian ID Authoriza tion(s) Medicare NGS MB [id number] [facility] Medicare Supplement BL [id number] Social History Type Description Quantity Date Captured [...] Present Illness Encounter Date Complaint History Of Preschuckie nt Illness GI Symptoms or Concerns This [...] 5 years ago, she was hospitalized at [facility] at which time there was evidence of [...] CT findings and fairly recent colonoscopy in 2019. Related to Diverticulitis Diverticulosis/Diverticulitis Re lated to [...]
[2022-08-20 19:56] LABS: PCR FLU A Negative PCR FLU A (Negative); PCR FLU B Negative PCR FLU B (Negative); PCR RSV Negative PCR RSV (Negative)
[2022-08-20 19:58] LABS: SARS PCR* Negative SARS-CoV-2 (Negative)
[2022-08-20] MEDS: KETOROLAC 30 MG/ML inj IM (20:58)
== END 2022-08-20 22:05 | disposition home or self-care (01) ==
PROVIDERS: Emergency Provider Emergency Medicine Emergency Medical Services; PCP Family Medicine
DX: R50.9 Fever, unspecified (principal); M79.661 Pain in right lower leg; R19.7 Diarrhea, unspecified
CPT/HCPCS: 87631; 93971; 96372; 99284; J1885

== ENCOUNTER 2022-10-10 10:17 | Outpatient (RCR) | payer OTHER, SELFPAY | END 2023-10-10 16:18 | disposition home or self-care (01) | LOC: MOW 10:17 | PROVIDERS: PCP Family Medicine; Visit Provider Family Medicine | DX: Z76.0 Encounter for issue of repeat prescription (principal) | CPT/HCPCS: S5170 ==

== ENCOUNTER 2022-11-19 17:46 | Emergency (ER) | payer MEDICARE, BC, SELFPAY ==
[2022-11-19 17:50] VITALS: BP 121/75; PULSE 67; RESP 16; TEMP 36.8; O2SAT 97; BMI 20.7
[2022-11-19 18:20] LABS: Appearance Urine Slightly Cloudy (Clear); Bilirubin Urine Negative (Negative); Blood Urine Negative (Negative); Color Urine Yellow (Yellow); Glucose Urine Negative (Negative); Ketones Urine Negative (Negative); Leukocyte Esterase Urine Trace (Negative); Nitrite Urine Negative (Negative); Protein Urine Negative (Negative); Specific Gravity Urine 1.025 (1.000-1.030); Urobilinogen Urine 0.2 (0.2-1.0)
[2022-11-19 18:47] LABS: Squamous Epithelial Cell Urine Few (None-Few)
--- NOTE | 2022-11-19 20:20 | ED.GENADULT ---
HPI - General Adult General Date Seen: 11/19/22 Chief complaint: Urogenital Problems, Female Stated complaint: Possible UTI Time Seen by Provider: 11/19/22 18:52 Source: patient Mode of arrival: ambulatory Limitations: no limitations History of Present Illness HPI narrative: Patient is a 62-year-old female who comes in with a two or three day history of dysuria, feeling of incomplete emptying, and urinary frequency. She tried to get into the clinic and was told that there is no one who can see her at the [facility] this week. She has a history of urinary tract infections, lichen sclerosis of the vulva, and frequent yeast infections. She has had minimal vaginal discharge and has chronic itching. No fevers or chills. No nausea, vomiting. Related Data Home Medications Medication Instructions Recorded Confirmed clobetasol 0.05 % topical ointment 1 applic topical .qod 11/21/21 09/17/22 liothyronine 5 mcg tablet 5 mcg PO .B.i.d. 11/21/21 11/19/22 trazodone 50 mg tablet 50 mg PO HS 11/21/21 11/19/22 lorazepam 0.5 mg tablet 0.5 mg PO Q12H PRN 12/08/21 11/19/22 melatonin 3 mg capsule 9 mg PO HS 12/08/21 11/19/22 buspirone 10 mg tablet 10 mg 01/27/22 09/17/22 escitalopram oxalate 10 mg tablet 10 mg PO DAILY 11/19/22 11/19/22 (Lexapro) Previous Rx's Medication Instructions Recorded Lactobacillus acidophilus 0.5 mg 1 tab PO TIDWM 90 days #90 tabs 12/10/21 (100 million cell) tablet hydromorphone 2 mg tablet 2 mg PO Q4H PRN 5 days #30 tabs 12/10/21 ondansetron 4 mg disintegrating 4 mg PO Q6H PRN nausea and 12/10/21 tablet vomiting #10 tabs clobetasol 0.05 % topical ointment 1 applic topical ONCE #15 grams 06/10/22 estradiol 10 mcg vaginal tablet 10 mcg vaginal 2XW #24 tabs 06/10/22 (Yuvafem) ondansetron 4 mg oral soluble film 4 mg PO Q6H PRN nausea and 08/01/22 vomiting #30 ea fluconazole 200 mg tablet 200 mg PO Q3D #2 tabs 08/04/22 (Diflucan) fluconazole 200 mg tablet 200 mg PO Q72H #2 tabs 09/14/22 (Diflucan) fluconazole 150 mg tablet 150 mg PO Q3D 2 doses #2 tabs 11/19/22 (Diflucan) sulfamethoxazole 800 1 tab PO BID #14 tabs 11/19/22 mg-trimethoprim 160 mg tablet (Bactrim DS) Allergies Allergy/AdvReac Type Severity Reaction Status Date / Time auranofin Allergy Verified 11/19/22 17:56 cat dander Allergy Verified 11/19/22 17:56 Gadolinium-Containing Allergy Verified 11/19/22 17:56 Contrast Medi gluten Allergy Verified 11/19/22 17:56 gold keratinate Allergy Verified 11/19/22 17:56 gold sodium thiomalate Allergy Verified 11/19/22 17:56 lactose Allergy Verified 11/19/22 17:56 Opioids - Morphine Analogues Allergy Verified 11/19/22 17:56 goldshots Allergy Severe Anaphylaxis Uncoded 09/17/22 14:35 Review of Systems Narrative: Review of systems is outlined above otherwise noted to be negative. [facility] Medical History (Updated 11/19/22 @ 19:23 by Walter Hargrove MD) History of Clostridioides difficile colitis ?Z86.19 - Personal history of other infectious and parasitic diseases (ICD-10) Yeast infection ?B37.9 - Candidiasis, unspecified (ICD-10) History of hypothyroidism ?Z86.39 - Personal history of other endocrine, nutritional and metabolic disease (ICD-10) History of diverticulitis of colon (05/09/11) ?Z87.19 - Personal history of other diseases of the digestive system (ICD-10) History of Clostridioides difficile infection ?Z86.19 - Personal history of other infectious and parasitic diseases (ICD-10) Abscess of sigmoid colon due to diverticulitis ?K57.20 - Diverticulitis of large intestine with perforation and abscess without bleeding (ICD-10) Osteoporosis ?M81.0 - Age-related osteoporosis without current pathological fracture (ICD-10) Sigmoid diverticulitis ?K57.32 - Diverticulitis of large intestine without perforation or abscess without bleeding (ICD-10) History of femur fracture ?Z87.81 - Personal history of (healed) traumatic fracture (ICD-10) Insomnia ?G47.00 - Insomnia, unspecified (ICD-10) Anxiety ?F41.9 - Anxiety disorder, unspecified (ICD-10) Sarcoidosis ?D86.9 - Sarcoidosis, unspecified (ICD-10) Hypothyroidism ?E03.9 - Hypothyroidism, unspecified (ICD-10) Sensorineural hearing loss (SNHL) of both ears ?H90.3 - Sensorineural hearing loss, bilateral (ICD-10) Depression ?F32.A - Depression, unspecified (ICD-10) Chronic fatigue syndrome ?R53.82 - Chronic fatigue, unspecified (ICD-10) 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 - Unspecified juvenile rheumatoid arthritis of unspecified site (ICD-10) Migraines ?G43.909 - Migraine, unspecified, not intractable, without status migrainosus (ICD-10) Diverticulitis of intestine with abscess ?K57.80 - Diverticulitis of intestine, part unspecified, with perforation and abscess without bleeding (ICD-10) Surgical History History of total knee replacement ?Z96.659 - Presence of unspecified artificial knee joint (ICD-10) S/P hammer toe correction ?Z98.890 - Other specified postprocedural states (ICD-10) ?Z87.39 - Personal history of other diseases of the musculoskeletal system and connective tissue (ICD-10) History of repair of rotator cuff ?Z98.890 - Other specified postprocedural states (ICD-10) History of tonsillectomy ?Z90.89 - Acquired absence of other organs (ICD-10) History of total hip arthroplasty ?Z96.649 - Presence of unspecified artificial hip joint (ICD-10) History of bilateral knee arthroplasty ?Z96.653 - Presence of artificial knee joint, bilateral (ICD-10) Family History Father High blood pressure Hyperlipidemia Mother High blood pressure Hyperlipidemia Sister Seizure disorder Social History Narrative: She lives alone in [place]. 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 She does not smoke. She drinks alcohol about once a month. She uses no recreational drugs. She does have a history of chemical dependency. Healthcare power of real estate attorney is her sister Denise. Code status is full. Are you following a special diet: Yes (no gluten, lactose intolerent) Highest level of school completed/degree received: Master's degree Smoking Status: Never smoker Do you use any of these nicotine containing products: None Second hand tobacco smoke exposure: No How often do you have a drink containing alcohol: never How often do you have six or more drinks on one occasion: Never AUDIT-C Alcohol total score: 0 Non-prescribed substance use: denies use Caffeine: Yes (coffee 3x weekly) Are you now , , , , never or living with a partner: Social isolation score (0-1 are the most socially isolated patients): 0 Are you currently sexually active: No service: No Exam Narrative: Exam Narrative: Vitals noted. HEENT: Conjunctiva clear. Neck is supple without adenopathy. Lungs: Clear to auscultation in all palmer. No wheezes, rales, rhonchi. Heart: Regular rate and rhythm without murmur. Abdomen: Soft and nontender. No guarding, rigidity, rebound. Bowel sounds are normal. No palpable masses. No CVA or suprapubic tenderness. Extremities: No cyanosis or edema. Good distal pulses. Neurologic: Awake, alert, fully oriented. Neurologic exam is nonfocal. Const: Vital Signs, click to edit/add: Vital Signs - 24 hr 11/19/22 17:50 Temperature 98.3 F Pulse Rate [Pulse Oximeter] 67 Respiratory Rate 16 Blood Pressure [Ri ght Upper Arm] 121/75 Pulse Oximetry 97 Oxygen Delivery Me thod Room Air Course Course Hospital Course: Patient was seen and examined. Her urinalysis was done prior to me seeing her. She specifically requested Dr. Layne and was disappointed that her shift had ended. She declines pelvic exam and I do not believe she really needs one with her history. Her UA is mildly positive with 2-5 red cells and 5-10 white cells. Culture is pending. I chose to treat her. Vital Signs Vital signs: Initial Vital Signs Temperature 98.3 F 11/19/22 17:50 Temperature Source Temporal Artery Scan 11/19/22 17:50 Pulse Rate 67 11/19/22 17:50 Pulse Rhythm Regular 07/11/23 17:50 Pulse Strength 3+ Normal 11/19/22 17:50 Respiratory Rate 16 11/19/22 17:50 Blood Pressure 121/75 11/19/22 17:50 Blood Pressure Mean 90 11/19/22 17:50 Blood Pressure Position Sitting 11/19/22 17:50 Pulse Oximetry 97 11/19/22 17:50 Oxygen Delivery Method Room Air 11/19/22 17:50 Vital Signs Temperature 98.3 F 11/19/22 17:50 Pulse Rate 67 11/19/22 17:50 Respiratory Rate 16 11/19/22 17:50 Blood Pressure 121/75 11/19/22 17:50 Pulse Oximetry 97 11/19/22 17:50 Oxygen Delivery Method Room Air 11/19/22 17:50 Temperature 98.3 F 11/19/22 17:50 Pulse Rate 67 11/19/22 17:50 Respiratory Rate 16 11/19/22 17:50 Blood Pressure 121/75 11/19/22 17:50 Pulse Oximetry 97 11/19/22 17:50 Oxygen Delivery Method Room Air 11/19/22 17:50 Medical Decision Making Lab Data Labs: Lab Results 11/19/22 Range/Units 17:59 Urine Color Yellow (Yellow) Urine Appearance Slightly Cloudy A (Clear) Urine pH 5.0 (5.0-8.5) Ur Specific [place] 1.025 (1.000-1.030) Urine Protein Negative (Negative) Urine Glucose (UA) Negative (Negative) Urine Ketones Negative (Negative) Urine Blood Negative (Negative) Urine Nitrite Negative (Negative) Urine Bilirubin Negative (Negative) Urine Urobilinogen 0.2 (0.2-1.0) Ur Leukocyte Esterase Trace A (Negative) Urine RBC 2-5 A (0-2) Urine WBC 5-10 A (0-5) Ur Squamous Epith Cells Few (None-Few) Urine Bacteria None (None) Discharge Plan Discharge Clinical Impression: Urinary tract infection, Lichen sclerosus et atrophicus of the vulva, Yeast infection Patient Disposition: Home, Self-Care Condition: Stable Additional Instructions: Push fluids, Bactrim DS one tablet twice daily for seven days. Take Diflucan 150 mg on Friday and repeat after antibiotics are completed. Follow-up in the clinic if worsening or not improving. Prescriptions: New fluconazole [Diflucan] 150 mg tablet 150 mg PO Q3D Qty: 2 0RF sulfamethoxazole-trimethoprim [Bactrim DS] 800-160 mg tablet 1 tab PO BID Qty: 14 0RF No Action estradiol [Yuvafem] 10 mcg tablet 10 mcg vaginal 2XW Qty: 24 3RF clobetasol 0.05 % ointment 1 applic topical ONCE Qty: 15 3RF Rx Instructions: Apply as needed to affected area fluconazole [Diflucan] 200 mg tablet 200 mg PO Q72H Qty: 2 0RF trazodone 50 mg tablet 50 mg PO HS liothyronine 5 mcg tablet 5 mcg PO .B.i.d. clobetasol 0.05 % ointment 1 applic TOPICAL .qod lorazepam 0.5 mg tablet 0.5 mg PO Q12H PRN melatonin 3 mg capsule 9 mg PO HS hydromorphone 2 mg Tablet 2 mg PO Q4H PRN5 Days Qty: 30 0RF Lactobacillus acidophilus 0.5 mg (100 million cell) Tablet 1 tab PO TIDWM 90 Days Qty: 90 0RF ondansetron 4 mg tablet,disintegrating 4 mg PO Q6H PRN (Reason: nausea and vomiting) Qty: 10 0RF buspirone 10 mg tablet 10 mg escitalopram oxalate [Lexapro] 10 mg tablet 10 mg PO DAILY ondansetron 4 mg film 4 mg PO Q6H PRN (Reason: nausea and vomiting) Qty: 30 0RF fluconazole [Diflucan] 200 mg tablet 200 mg PO Q3D Qty: 2 0RF Follow Up/Referrals: Nivia Bruno MD [Primary Care Provider] - Stand Alone Forms: [facility] Info Instructions
== END 2022-11-19 19:44 | disposition home or self-care (01) ==
LOC: ED 19:38
PROVIDERS: Emergency Provider Family Medicine; PCP Family Medicine
DX: L90.0 Lichen sclerosus et atrophicus (principal); N39.0 Urinary tract infection, site not specified; B37.9 Candidiasis, unspecified
CPT/HCPCS: 81003; 81015; 87086; 99282; 99283; A9270

== ENCOUNTER 2022-12-07 15:21 | Emergency (ER) | payer MEDICARE, BC, SELFPAY ==
[2022-12-07 15:35] VITALS: BP 103/75; PULSE 75; RESP 18; TEMP 36.3; O2SAT 97; BMI 20.7
--- OUTSIDE RECORDS SUMMARY | 2022-12-07 16:05 | XMS_ITS | Continuity of Care Document ---
Author Name Unknown Organization [facility] Address [address] [address] [place] [address] Care Team Providers Care Director Sanitation Bureau Name Role Phone [place], [place] Unavailable Unav ailable Procedures Procedure Date Colono Pt Doc Pt W/o Advance Directives Directive Yes / No Effective Date File Name No Information Encounters Encounter Description Practice Location Reason(s) For Visit Diagnoses Date Provider Providers Copied on Encounter [facility], [address] [address], [place], [place], [id number], [facility] No Information [facility]. [address] [address], [place], [place], [address], . tel:[phone] Referring Provider: [place], [address] [facility] [address], [place], [address]. tel:[phone] Family History Family Member Type Diagnosis Age At Onset No Information Payers Payer name Insurance type Covered alliance party ID Authoriza tion(s) No Information Social [...]
--- OUTSIDE RECORDS SUMMARY | 2022-12-07 16:05 | XMS_ITS | Continuity of Care Document ---
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 [address] [facility], [facility] [address], [place], [place], [id number], [place]. tel:[phone] [facility] [employer] [facility] CESAR [address] [address], [place], [id number], [place] tel:[phone] [facility] Diverticulosis of colon (without mention of hemorrhage)Dvr tclos of lg int w/o perforation or abscess w/o bleeding No Information Referring Provider: Referral Self. [facility] [employer] [facility] JENNIFER GUERRERO [address] [address], [place], [id number], [place] tel:[phone] [facility] No Information Aug-2 5-202 2 No Information Telephone E&M III 21-30 Min SUSU [facility], [address] [address], [place], [id number], [place] tel:[phone] [facility] GI Symptoms or Concerns (chief complaint) Diverticulitis 2 Edstrom [facility] Squires. [address] [facility], [facility] [address], [place], [id number], [place]. tel:[phone] Referring Provider: Referral Self. [facility], [address] [address], [place], [id number], [place] tel:[phone] [facility] No Information 2 Link MD Null. [address] [facility] [address], [place], [place], [id number], [place]. tel:[phone] [facility], [address] [address], [place], [id number], [place] tel:[phone] [facility] Diverticulosis of colon (without mention of hemorrhage)Per pinky history of colonic polypsDvtrcli of lg int w/o perforation or abscess w/o bleedingDvrtcl os of lg int w/o perforation or abscess w/o bleedingPerson al history of colonic polyps 0 9 No Information Referring Provider: Nivia Bruno MD, [address] [place] [address], [address]. tel:[phone] [facility], [address] [address], [facility] [place], [id number], [place] tel:[phone] [facility] History of colon polypsDivertic ular disease of large intestineDvtrc li of lg int w/o perforation or abscess w/o bleedingDvrtcl os of lg int w/o perforation or abscess w/o bleedingPerson al history of colonic polyps 5 Javad Demarco. [address] [facility], [address], [place], [address], [place]. tel:[phone] Referring Provider: Heladio Martins MD, [address] [place] [address], [address]. tel:[phone] [facility], [address] [address], [place], [id number], [place] tel:[phone] [facility] LUQ Pain 4 Tatiana Ray. [address] [place] [address], [place] [address], [place], [place], [id number], [place]. tel:[phone] [facility], [address] [address], [place], [id number], [place] tel:[phone] [facility] Hiatal HerniaPolyp-in chalo/rect/stom- unc BehLUQ PainGastric Polyp-benignGa stric Polyp-benignLU Q PainHiatal Hernia 4 Nelson Ferris. [address] [place] [address], [id number], [place]. tel:[phone] Referring Provider: Heladio Martins MD, [address] [place] [address], [address]. tel:[phone] [facility], [address] [address], [place], [id number], [place] tel:[phone] [facility] Pain 4 Tatiana Ray. [address] [place] [address], [id number], [place]. tel:[phone] Referring Provider: Heladio Martins MD, [address] [place] [address], [address]. tel:[phone] Offic/outpt E&m Estab Mod-hi 2 [facility], [address] [address], [place], [id number], [place] tel:[phone] [facility] LUQ PainDiarrhea 4 Tatiana Ray. [address] [place] [address], [id number], [place]. tel:[phone] Referring Provider: Heladio Martins MD, [address] [place] [address], [address]. tel:[phone] [facility], [address] [address], [place], [id number], [place] tel:[phone] [facility] Diverticulosis Of ColonHx Of Digest Disease NecDiverticulo sis Of ColonHx Of Digest Disease Nec 3 No Information Referring Provider: Heladio Martins MD, [address] [place] [address], [place], [address]. tel:[phone] [facility], [address] [address], [place], [id number], [place] tel:[phone] [facility] Diverticulosis Of ColonDiverticu litis Of ColonDiverticu litis Of Colon 2 No Information Referring Provider: Heladio Martins MD, [address] [place] [address], [place], [address]. tel:[phone] [facility], [address] [address], [place], [id number], [place] tel:[phone] [facility] Colon Cancer ScreeningPerso nal History Colon PolypsDivertic ulosis Of Colon 8 No Information Referring Provider: Daniel Griffin, [address] [place] [address], [place], [address]. tel:[phone] [facility], [address] [address], [place], [id number], [place] tel:[phone] [facility] Personal history colon polyps 6 No Information Offic Cons New/estab [facility], [address] [address], [place], [id number], [place] tel:[phone] [facility] Diverticulosis Of ColonPolyp-int es/rect/stom-u nc beh 6 [...] Registry Payers Payer name Insurance type Covered democrat ID Authoriza tion(s) Medicare NGS MB [id number] [facility] Medicare Supplement BL [id number] Social History Type Description Quantity Date Captured [...] 5 years ago, she was hospitalized at [facility] at which time there was evidence [...]
--- OUTSIDE RECORDS SUMMARY | 2022-12-07 16:05 | XMS_ITS | Continuity of Care Document ---
Author Name Unknown Organization [facility] rosa maria Address [address] [place] [address] Phone Care Team Providers Care Ratings Analyst Name Role Phone Will MD LARSON, Leif Unavailable Unavailabl e Allergies, Adverse Reactions, Alerts Substance Reaction Status Criticality GOLD TRIBROMIDE Active No Informati on Medications Medication Instructions Dosage Effective Dates (start - stop) Status Comments buspirone 10 mg tablet take 1 tablet by oral route 2 times every day 10 MG - Active clobetasol 0.05 % topical cream apply by topical route 2 times every day a thin layer to the affected area(s) 0.00 - Active Estrace 0.01% (0.1 mg/gram) vaginal cream insert (1G) by vaginal route every week 1 G - Active Dilaudid 2 mg tablet take 1 tablet prn. - Active Tylenol 325 mg tablet take 2 tablet by o ral route every 6 hours as needed 650 MG - Active melatonin 10 mg tablet - Active MyoCalm 25 mg-50 mg-20 mg tablet - Active trazodone 50 mg tablet - Active Procedures Procedure Date Drug Urine Toxology With Chromatography OFFICE/OUTPATIENT VISIT, NEW PT-FOCUSED HLTH RISK ASSMT OFFICE/OUTPATIENT VISIT, NEW Advance Directives Directive Yes / No Effective Date File Name No Information Encounters Encounter Description Practice Location Reason(s) For Visit Diagnoses Date Provider Providers Copied on Encounter [facility], [address] [place] [address] [place], [place], [id number] , [place] tel:[phone] [facility] No Information 2 Will Leif. [address] [place], [id number] , [place]. tel:[phone] [facility], [address] [place] [address] [place], [place], [id number] , [place] tel: [phone] [facility] [place] No Information 1 Nolan Gilberto. [facility], [address], [place], [address], [place]. tel:[phone] OFFICE/OUTPA TIENT VISIT, [facility], [address] [place] [address] [place], [place], [id number] , [place] tel: [phone] [facility] Leg Pain (chief complaint) Encounter for therapeutic drug level monitoringLong term (current) use of opiate analgesicLow back pain, unspecifiedPain in left shoulderEncounter for screening for other disorderCausalgia of right lower limb 1 Nolan Gilberto. [facility], [address], [place], [address], [place]. tel:[phone] Referring Provider: Leif Walsh, [address] [place] [address] [place], [address] . tel:[phone] OFFICE/OUTPA TIENT VISIT, [facility], [address] [place] [address] [place], [place], [id number] , [place] [phone] [facility] back and hip pain (chief complaint) LumbagoCervicalgia -201 4 Scout Ortiz. [address] [place] [address] [place], [id number] , [place]. [phone] Referring Provider: Leif Walsh, [address] [place] [address] [place], [address] . tel:[phone] Family History Family Member Type Diagnosis Age At Onset Father Problem (finding) back issues Payers Payer name Insurance type Covered democrat ID Maci hampton(s) Medicare MB [id number] Social History Type Description Quantity Date Captured Comments Alcohol Use Details Unknown Caffeine Use Details Unknown Tobacco Use Status No Information Smoking Status No Information Sex Female Chief Complaint And Reason For Visit No Information Reason For Referral Reason For Referral No Information Plan Of Treatment Date Type Action Status Goal AST (SGOT). Due on due Goal Creatinine. Due on due Goal COMMUNITY RELATIONS MANAGER Scanned. Due on due Goal Order Annual PT. Due on due Goal CIGAR PATCHER Paperwork. Due on due Goal ALT (SGPT). [...] Goal AST (SGOT). Due on due Goal Creatinine. Due on due Goal COMMUNITY RELATIONS MANAGER Scanned. Due on due Goal Order Annual PT. Due on due Goal CIGAR PATCHER Paperwork. Due on due Goal ALT (SGPT). Due on due Goal UDT. Due on due Goal OARS. Due on due Goal Order Annual PT. Due on due Goal UDT. Due on due Goal ALT (SGPT). Due on due Goal COMMUNITY RELATIONS MANAGER Scanned. Due on due Goal CIGAR PATCHER Paperwork. Due on due Goal Creatinine. Due on due Goal OARS. Due on due Goal AST (SGOT). Due on due Goal Review Allergy List. Due on due Goal PHQ-9. Due on du e Goal Update Social History. Due o n due Goal Medication Reconciliation. D ue on due Goal Height. Due on d ue Goal Weight. Due on d ue Goal Tobacco Use. Due on due Goal Review Allergy List. Due on due Goal PHQ-9. Due on du e Goal Update Social History. Due o n due Goal Medication Reconciliation. D ue on due Goal Height. Due on d ue Goal Weight. Due on d ue Goal Tobacco Use. Due on due History Of Present Illness Encounter Date Complaint History Of Prese nt Illness Leg Pain Duration: chroni c. Severity level is 7. It occurs constantly. Location: right thigh and hip. The pain is aching. The pain is aggravated by bending, lifting, movement, sitting, walking, standing, housework, stairs and running. The pain is relieved by heat, ice, massage, pain/RX meds, physical therapy, rest and stretching. Leg Pain (comments) Mrs. Brown is a pleasant 60 y/o woman here for initial consult for right thigh and hip pain referred by Dr. Tobias Martin through [facility]. This pain began after falling on ice and fracturing her R femur in 2018. [facility] did her initial trauma surgery at the time. Dr. Martin then completed bone grafting on her right femur recently and believes that her new femur hardware may be irritating her R hip hardware from a hip replacement in 1995. Denies any leg numbness or tingling and endorses swelling in her R thigh. She is following up at [facility] when she is able to schedule. Pain is described as aching and stiff. Pain averages 7/10.In addition, she c/o neck and lower back pain that she believes is linked to a difference in leg lengths. Denies any lower back surgeries. Further carries a fdc dx of fibromyalgia. She has tried PT [...] RX on 05/08/[address] Mijares at [facility]. She takes 1-2 Dilaudid per month.Mrs. Brown is interested in pain management and medical cannabis certification through [facility]. No other concerns today. Functional Status Date Functional Assessmen t No Information Instructions Date Instruction Additional Infor mation Continue current medication Reviewed medications New medication is prescribed Follow exercise program Depression Screen Oswestry Score Assessments Type Assessment Date No Information Patient Care Teams Name Effective Dates (start - stop) Status Members No Information
--- NOTE | 2022-12-07 16:16 | ED_ITS ---
HPI - Nausea/Vomiting/Diarrhea General Date Seen: 12/07/22 Chief complaint: Diarrhea Stated complaint: Possible C Diff Time Seen by Provider: 12/07/22 15:39 Source: patient Mode of arrival: ambulatory Limitations: no limitations History of Present Illness HPI Narrative: Patient is a very nice 62-year-old female who presents here with diarrhea, she has had approximately 8 episodes today of diarrhea, she has a little bit of left upper abdominal tenderness, gurgling feeling throughout her abdomen. She notes that she is nauseous but has not vomited, this does feel and smell like her previous C diff she has had in the past. She was on antibiotics for UTI a few weeks ago. Denies any blood in her stool, she has had no fevers or chills, has a normal temperature. MD elicited complaint: nausea Onset (ago): day(s) Description of diarrhea: watery and loose Associated nausea: Yes Associated abdominal pain: Yes Location of pain: LUQ Radiation: does not radiate Pain consistency: colicky Severity: moderate Quality: cramping Relieving factors: bowel movement Context: recent antibiotic use Treatment prior to arrival: none Related Data Home Medications Medication Instructions Recorded Confirmed clobetasol 0.05 % topical ointment 1 applic topical .qod 11/21/21 11/21/22 liothyronine 5 mcg tablet 5 mcg PO .B.i.d. 11/21/21 11/21/22 trazodone 50 mg tablet 50 mg PO HS 11/21/21 11/21/22 lorazepam 0.5 mg tablet 0.5 mg PO Q12H PRN 12/08/21 11/21/22 melatonin 3 mg capsule 9 mg PO HS 12/08/21 11/21/22 buspirone 10 mg tablet 10 mg 01/27/22 11/21/22 escitalopram oxalate 10 mg tablet 10 mg PO DAILY 11/19/22 11/21/22 (Lexapro) Previous Rx's Medication Instructions Recorded Lactobacillus acidophilus 0.5 mg 1 tab PO TIDWM 90 days #90 tabs 12/10/21 (100 million cell) tablet hydromorphone 2 mg tablet 2 mg PO Q4H PRN 5 days #30 tabs 12/10/21 ondansetron 4 mg disintegrating 4 mg PO Q6H PRN nausea and 12/10/21 tablet vomiting #10 tabs clobetasol 0.05 % topical ointment 1 applic topical ONCE #15 grams 06/10/22 estradiol 10 mcg vaginal tablet 10 mcg vaginal 2XW #24 tabs 06/10/22 (Yuvafem) ondansetron 4 mg oral soluble film 4 mg PO Q6H PRN nausea and 08/01/22 vomiting #30 ea fluconazole 200 mg tablet 200 mg PO Q3D #2 tabs 08/04/22 (Diflucan) fluconazole 200 mg tablet 200 mg PO Q72H #2 tabs 09/14/22 (Diflucan) fluconazole 150 mg tablet 150 mg PO Q3D 2 doses #2 tabs 11/19/22 (Diflucan) sulfamethoxazole 800 1 tab PO BID #14 tabs 11/19/22 mg-trimethoprim 160 mg tablet (Bactrim DS) Allergies Allergy/AdvReac Type Severity Reaction Status Date / Time auranofin Allergy Verified 11/21/22 17:24 cat dander Allergy Verified 11/21/22 17:24 Gadolinium-Containing Allergy Verified 11/21/22 17:24 Contrast Medi gluten Allergy Verified 11/21/22 17:24 gold keratinate Allergy Verified 11/21/22 17:24 gold sodium thiomalate Allergy Verified 11/21/22 17:24 lactose Allergy Verified 11/21/22 17:24 Opioids - Morphine Analogues Allergy Verified 11/21/22 17:24 goldshots Allergy Severe Anaphylaxis Uncoded 11/21/22 17:24 Review of Systems Status of ROS: Reports: 10 or more systems reviewed and unremarkable except as noted in History and below GI: Reports: nausea PFSH PFSH Medical History Vulvovaginitis ?N76.0 - Acute vaginitis (ICD-10) History of Clostridioides difficile colitis ?Z86.19 - Personal history of other infectious and parasitic diseases (ICD- 10) Yeast infection ?B37.9 - Candidiasis, unspecified (ICD-10) History of hypothyroidism ?Z86.39 - Personal history of other endocrine, nutritional and metabolic disease (ICD-10) History of diverticulitis of colon (05/09/11) ?Z87.19 - Personal history of other diseases of the digestive system (ICD-10) History of Clostridioides difficile infection ?Z86.19 - Personal history of other infectious and parasitic diseases (ICD- 10) Abscess of sigmoid colon due to diverticulitis ?K57.20 - Diverticulitis of large intestine with perforation and abscess without bleeding (ICD-10) Osteoporosis ?M81.0 - Age-related osteoporosis without current pathological fracture (ICD- 10) Sigmoid diverticulitis ?K57.32 - Diverticulitis of large intestine without perforation or abscess without bleeding (ICD-10) History of femur fracture ?Z87.81 - Personal history of (healed) traumatic fracture (ICD-10) Insomnia ?G47.00 - Insomnia, unspecified (ICD-10) Anxiety ?F41.9 - Anxiety disorder, unspecified (ICD-10) Sarcoidosis ?D86.9 - Sarcoidosis, unspecified (ICD-10) Hypothyroidism ?E03.9 - Hypothyroidism, unspecified (ICD-10) Sensorineural hearing loss (SNHL) of both ears ?H90.3 - Sensorineural hearing loss, bilateral (ICD-10) Depression ?F32.A - Depression, unspecified (ICD-10) Chronic fatigue syndrome ?R53.82 - Chronic fatigue, unspecified (ICD-10) 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 - Unspecified juvenile rheumatoid arthritis of unspecified site (ICD- 10) Migraines ?G43.909 - Migraine, unspecified, not intractable, without status migrainosus (ICD-10) Diverticulitis of intestine with abscess ?K57.80 - Diverticulitis of intestine, part unspecified, with perforation and abscess without bleeding (ICD-10) Surgical History History of total knee replacement ?Z96.659 - Presence of unspecified artificial knee joint (ICD-10) S/P hammer toe correction ?Z98.890 - Other specified postprocedural states (ICD-10) ?Z87.39 - Personal history of other diseases of the musculoskeletal system and connective tissue (ICD-10) History of repair of rotator cuff ?Z98.890 - Other specified postprocedural states (ICD-10) History of tonsillectomy ?Z90.89 - Acquired absence of other organs (ICD-10) History of total hip arthroplasty ?Z96.649 - Presence of unspecified artificial hip joint (ICD-10) History of bilateral knee arthroplasty ?Z96.653 - Presence of artificial knee joint, bilateral (ICD-10) Family History Father High blood pressure Hyperlipidemia Mother High blood pressure Hyperlipidemia Sister Seizure disorder Social History Narrative: She lives alone in [place]. 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 She does not smoke. She drinks alcohol about once a month. She uses no recreational drugs. She does have a history of chemical dependency. Healthcare power of privacy attorney is her sister Denise. Code status is full. Are you following a special diet: Yes (no gluten, lactose intolerent) Highest level of school completed/degree received: Master's degree Smoking Status: Never smoker Do you use any of these nicotine containing products: None Second hand tobacco smoke exposure: No How often do you have a drink containing alcohol: never How often do you have six or more drinks on one occasion: Never AUDIT-C Alcohol total score: 0 Non-prescribed substance use: denies use Caffeine: Yes (coffee 3x weekly) Are you now , , , , never or living with a partner: Social isolation score (0-1 are the most socially isolated patients): 0 Are you currently sexually active: No service: No Exam Narrative: Exam Narrative: Patient is seen in room 6 she appears to be in no apparent distress, moving her extremities normally. Pupils equal round reactive to light, little bit pale, oropharynx is slightly dry, neck is supple, no meningismus. Chest is good air entry bilaterally with no wheezing crackles noted, heart sounds are normal, her abdomen is soft, with these bowel sounds throughout all, there is no peritoneal signs no CVA tenderness, skin reveals no petechiae rashes neurologically intact moving all extremities independently and well. Const: Vital Signs, click to edit/add: Vital Signs - 24 hr 12/07/22 15:35 Temperature 97.4 F L Pulse Rate [Right Pulse Oximeter] 75 Respiratory Rate 18 Blood Pressure [Ri ght Upper Arm] 103/75 Pulse Oximetry 97 Oxygen Delivery Me thod Room Air Course Course Hospital Course: Discussed with the patient, I would use Pepto-Bismol also, rest fluids and brat diet, Zofran, we will culture the the diarrhea, increasing fevers chills abdominal pain or vomiting should prompt re-evaluation, or a hematochezia. I reviewed her laboratory tests, I do note that in the past she has been mildly leukopenic in the past, Vital Signs Vital signs: Initial Vital Signs Temperature 97.4 F L 12/07/22 15:35 Temperature Source Temporal Artery Scan 12/07/22 15:35 Pulse Rate 75 12/07/22 15:35 Respiratory Rate 18 12/07/22 15:35 Blood Pressure 103/75 12/07/22 15:35 Blood Pressure Mean 84 12/07/22 15:35 Blood Pressure Position Sitting 12/07/22 15:35 Pulse Oximetry 97 12/07/22 15:35 Oxygen Delivery Method Room Air 12/07/22 15:35 Vital Signs Temperature 97.4 F L 12/07/22 15:35 Pulse Rate 75 12/07/22 15:35 Respiratory Rate 18 12/07/22 15:35 Blood Pressure 103/75 12/07/22 15:35 Pulse Oximetry 97 12/07/22 15:35 Oxygen Delivery Method Room Air 12/07/22 15:35 Temperature 97.4 F L 12/07/22 15:35 Pulse Rate 75 12/07/22 15:35 Respiratory Rate 18 12/07/22 15:35 Blood Pressure 103/75 12/07/22 15:35 Pulse Oximetry 97 12/07/22 15:35 Oxygen Delivery Method Room Air 12/07/22 15:35 MDM - Nausea/Vomiting/Diarrhea MDM Narrative Medical decision making narrative: During the evaluation of this patient I considered multiple differential nicolas gnosis including life-threatening differentials which are appendicitis, aortic aneurysm, mesenteric ischemia, bowel perforation, ectopic , volvulus and bowel obstruction, other differential diagnosis include but are not limited to inflammatory bowel disease, cholecystitis, pancreatitis, hepatitis, gastritis, GERD, diverticulitis, peptic ulcer disease, pyelonephritis/UTI, renal colic/stone, pelvic inflammatory disease, cervicitis, endometritis, intrauterine , dysfunctional uterine bleeding, ovarian cyst/torsion, spontaneous as well as other etiologies Differential Diagnosis Differential diagnosis: Likely traveler's diarrhea, food poisoning, gastroenteritis, clostridium difficile infection, drug-induced nausea and vomiting and dehydration Medical Records Attestation: I reviewed the patient's medical records. Lab Data Attestation: I reviewed the patient's lab results. Labs: Lab Results 12/07/22 12/07/22 Range/Units 16:10 16:29 WBC 3.32 L (4.50-11.00) K/uL RBC 4.36 (4.00-5.20) m/uL Hgb 13.3 (12.0-16.0) gm/dL Hct 39.7 (33.0-51.0) % MCV 91 (80-100) fL MCH 31 (26-34) pg MCHC 34 (32-36) gm/dL RDW Coeff of Chuck 11.7 (11.5-15.5) % Plt Count 171 (140-440) K/uL Neut % (Auto) 64.8 (42.0-72.0) % Lymph % (Auto) 22.3 (20-44) % Pacific % (Auto) 9.6 (0.0-11.0) % Eos % (Auto) 2.7 (0.0-7.0) % Baso % (Auto) 0.3 (0.0-3.0) % Neut # (Auto) 2.20 (1.7-7.0) K/uL Lymph # (Auto) 0.70 L (0.90-2.90) K/uL Pacific # (Auto) 0.30 (0.00-0.90) K/UL Eos # (Auto) 0.10 (0.00-0.50) K/uL Baso # (Auto) 0.00 (0.00-0.30) K/uL Abs Immat Gran (auto) 0.00 (0.00-0.30) K/uL Imm/Tot Granulo (auto) 0.3 % Sodium 136 (135-149) mmol/L Potassium 3.9 (3.6-5.1) mmol/L Chloride 104 (96-114) mmol/L Carbon Dioxide 22 (20-32) mmol/L BUN 10 (7-30) mg/dL Creatinine 0.7 (0.5-1.5) mg/dL Estimated Creat Clear 57.73 Estimated GFR 97 ml/min Glucose 113 (60-115) mg/dL Lactate 1.2 (0.5-1.9) mmol/L Calcium 8.4 (8.4-10.6) mg/dL Stl C. diff Tox B Gene Negative (Negative) Stl C. diff [id number] PRESUMPTIVE NEGATIVE (Negative) Discharge Plan Discharge Clinical Impression: Gastroenteritis, Leukocytopenia, unspecified Patient Disposition: Home, Self-Care Condition: Improved Instructions: Gastroenteritis (ED), Acute Diarrhea (ED), Enteritis (ED) Additional Instructions: Home rest use of fluids, Zofran for nausea and this as the nice side effective decreasing your stools. Also suggest Pepto-Bismol, 3 times a day, this will also help it, is the treatment of choice in the developing world. Return here if blood in her stools, worsening abdominal pain fevers, we will do a culture of your stool. Continue with brat diet Activity Level: Light activity Prescriptions: No Action estradiol [Yuvafem] 10 mcg tablet 10 mcg vaginal 2XW Qty: 24 3RF clobetasol 0.05 % ointment 1 applic topical ONCE Qty: 15 3RF Rx Instructions: Apply as needed to affected area fluconazole [Diflucan] 200 mg tablet 200 mg PO Q72H Qty: 2 0RF trazodone 50 mg tablet 50 mg PO HS liothyronine 5 mcg tablet 5 mcg PO .B.i.d. clobetasol 0.05 % ointment 1 applic TOPICAL .qod lorazepam 0.5 mg tablet 0.5 mg PO Q12H PRN melatonin 3 mg capsule 9 mg PO HS hydromorphone 2 mg Tablet 2 mg PO Q4H PRN5 Days Qty: 30 0RF Lactobacillus acidophilus 0.5 mg (100 million cell) Tablet 1 tab PO TIDWM 90 Days Qty: 90 0RF ondansetron 4 mg tablet,disintegrating 4 mg PO Q6H PRN (Reason: nausea and vomiting) Qty: 10 0RF buspirone 10 mg tablet 10 mg escitalopram oxalate [Lexapro] 10 mg tablet 10 mg PO DAILY fluconazole [Diflucan] 150 mg tablet 150 mg PO Q3D Qty: 2 0RF sulfamethoxazole-trimethoprim [Bactrim DS] 800-160 mg tablet 1 tab PO BID Qty: 14 0RF ondansetron 4 mg film 4 mg PO Q6H PRN (Reason: nausea and vomiting) Qty: 30 0RF fluconazole [Diflucan] 200 mg tablet 200 mg PO Q3D Qty: 2 0RF Follow Up/Referrals: Nivia Bruno MD [Primary Care Provider] - Stand Alone Forms: Parental Health Info Instructions
[2022-12-07] MEDS: 0.9 % SODIUM CHLORIDE 1000 ml 1,000 ML IV (16:30)
[2022-12-07] MEDS: ONDANSETRON 2 MG/ML inj 4 MG IVP (16:30)
[2022-12-07 16:34] LABS: Lactate* 1.2 mmol/L (0.5-1.9)
[2022-12-07 16:35] LABS: Basophils Percent Auto 0.3 % (0.0-3.0); Eosinophils Percent Auto 2.7 % (0.0-7.0); Hematocrit 39.7 % (33.0-51.0); Hemoglobin* 13.3 gm/dL (12.0-16.0); Immature Granulocytes Pct Auto 0.3 %; Lymphocytes Percent Auto 22.3 % (20-44); Mean Corpuscular HGB Conc 34 gm/dL (32-36); Mean Corpuscular Hemoglobin 31 pg (26-34); Mean Corpuscular Volume 91 fL (80-100); Monocytes Percent Auto 9.6 % (0.0-11.0); Neutrophils Percent Auto 64.8 % (42.0-72.0); Platelet Count* 171 K/uL (140-440); RDW Coefficient of Variation % 11.7 % (11.5-15.5); Red Blood Count 4.36 m/uL (4.00-5.20); White Blood Count* 3.32 K/uL (4.50-11.00)
[2022-12-07 16:41] LABS: Slide Review Reflex No
[2022-12-07 16:48] LABS: Chloride* 104 mmol/L (96-114); Potassium* 3.9 mmol/L (3.6-5.1); Sodium* 136 mmol/L (135-149)
[2022-12-07 16:51] LABS: Blood Urea Nitrogen* 10 mg/dL (7-30); Calcium* 8.4 mg/dL (8.4-10.6); Carbon Dioxide* 22 mmol/L (20-32); Creatinine* 0.7 mg/dL (0.5-1.5); Est. Creatinine Clearance* 57.73; Estimated Glomerular Filt Rate 97 ml/min; Glucose* 113 mg/dL (60-115)
[2022-12-07] MEDS: KETOROLAC 30 MG/ML inj 15 MG IVP (17:09)
[2022-12-07] MEDS: LORazepam 2 MG/ML inj 0.5 MG IVP (17:09)
[2022-12-07 17:20] LABS: C.Difficile Negative (Negative); CDIFFEPI 027 PRESUMPTIVE NEGATIVE (Negative)
== END 2022-12-07 18:25 | disposition home or self-care (01) ==
PROVIDERS: Emergency Provider Family Medicine; PCP Family Medicine
DX: K52.9 Noninfective gastroenteritis and colitis, unspecified (principal); D72.819 Decreased white blood cell count, unspecified
CPT/HCPCS: 36415; 80048; 83605; 85025; 87045; 87046; 87427; 87493; 96374; 96375; 99283; 99284; J1885; J2060; J2405; J7030

== ENCOUNTER 2022-12-12 18:28 | Emergency (ER) | payer MEDICARE, BC, SELFPAY ==
[2022-12-12 18:33] VITALS: BP 125/69; PULSE 74; RESP 18; TEMP 36.4; O2SAT 98; BMI 20.7
[2022-12-12 19:02] LABS: Basophils Absolute Auto 0.02 K/uL (0.00-0.30); Basophils Percent Auto 0.3 % (0.0-3.0); Eosinophils Absolute Auto 0.06 K/uL (0.00-0.50); Hematocrit 40.1 % (33.0-51.0); Hemoglobin* 13.6 gm/dL (12.0-16.0); Immature Granulocytes Abs Auto 0.01 K/uL (0.00-0.30); Immature Granulocytes Pct Auto 0.2 %; Lymphocytes Absolute Auto 1.66 K/uL (0.90-2.90); Lymphocytes Percent Auto 27.3 % (20-44); Mean Corpuscular HGB Conc 34 gm/dL (32-36); Mean Corpuscular Hemoglobin 31 pg (26-34); Mean Corpuscular Volume 90 fL (80-100); Monocytes Percent Auto 5.6 % (0.0-11.0); Neutrophils Absolute Auto 3.99 K/uL (1.7-7.0); Neutrophils Percent Auto 65.6 % (42.0-72.0); Platelet Count* 239 K/uL (140-440); RDW Coefficient of Variation % 11.8 % (11.5-15.5); Red Blood Count 4.46 m/uL (4.00-5.20); White Blood Count* 6.08 K/uL (4.50-11.00)
--- NOTE | 2022-12-12 19:03 | ED_ITS ---
HPI - General Adult General Date Seen: 12/12/22 Chief complaint: Diarrhea Stated complaint: diarrhea Time Seen by Provider: 12/12/22 18:33 Source: patient Mode of arrival: ambulatory Limitations: no limitations History of Present Illness HPI narrative: Patient is a 62-year-old woman who was seen here 4 days ago with diarrhea, labs were unremarkable and she was diagnosed with gastroenteritis. She did have stool studies sent at that time and those all returned and are all negative including C diff. she reports ongoing difficulty with diarrhea. She says she had a formed stool earlier but then had 4 bouts of watery stools. No blood. She has some crampy left upper quadrant pain. No fevers or chills. No urinary symptoms. She has a history multiple episodes of diverticulitis, most recently last November the which time she had a small abscess. She tells me that she had 10 in of bowel removed in April. Related Data Home Medications Medication Instructions Recorded Confirmed clobetasol 0.05 % topical ointment 1 applic topical .qod 11/21/21 11/21/22 liothyronine 5 mcg tablet 5 mcg PO .B.i.d. 11/21/21 11/21/22 trazodone 50 mg tablet 50 mg PO HS 11/21/21 11/21/22 lorazepam 0.5 mg tablet 0.5 mg PO Q12H PRN 12/08/21 11/21/22 melatonin 3 mg capsule 9 mg PO HS 12/08/21 11/21/22 buspirone 10 mg tablet 10 mg 01/27/22 11/21/22 escitalopram oxalate 10 mg tablet 10 mg PO DAILY 11/19/22 11/21/22 (Lexapro) Previous Rx's Medication Instructions Recorded Lactobacillus acidophilus 0.5 mg 1 tab PO TIDWM 90 days #90 tabs 12/10/21 (100 million cell) tablet hydromorphone 2 mg tablet 2 mg PO Q4H PRN 5 days #30 tabs 12/10/21 ondansetron 4 mg disintegrating 4 mg PO Q6H PRN nausea and 12/10/21 tablet vomiting #10 tabs clobetasol 0.05 % topical ointment 1 applic topical ONCE #15 grams 06/10/22 estradiol 10 mcg vaginal tablet 10 mcg vaginal 2XW #24 tabs 06/10/22 (Yuvafem) ondansetron 4 mg oral soluble film 4 mg PO Q6H PRN nausea and 08/01/22 vomiting #30 ea fluconazole 200 mg tablet 200 mg PO Q3D #2 tabs 08/04/22 (Diflucan) fluconazole 200 mg tablet 200 mg PO Q72H #2 tabs 09/14/22 (Diflucan) fluconazole 150 mg tablet 150 mg PO Q3D 2 doses #2 tabs 11/19/22 (Diflucan) sulfamethoxazole 800 1 tab PO BID #14 tabs 11/19/22 mg-trimethoprim 160 mg tablet (Bactrim DS) diphenoxylate-atropine 2.5 1 tab PO DAILY #7 tabs 12/12/22 mg-0.025 mg tablet (Lomotil) Allergies Allergy/AdvReac Type Severity Reaction Status Date / Time auranofin Allergy Verified 12/12/22 19:49 cat dander Allergy Verified 12/12/22 19:49 Gadolinium-Containing Allergy Verified 12/12/22 19:49 Contrast Medi gluten Allergy Verified 12/12/22 19:49 gold keratinate Allergy Verified 12/12/22 19:49 gold sodium thiomalate Allergy Verified 12/12/22 19:49 lactose Allergy Verified 12/12/22 19:49 Opioids - Morphine Analogues Allergy Verified 12/12/22 19:49 goldshots Allergy Severe Anaphylaxis Uncoded 12/12/22 19:49 Review of Systems Status of ROS: Reports: 10 or more systems reviewed and unremarkable except as noted in History and below [facility] Medical History Vulvovaginitis ?N76.0 - Acute vaginitis (ICD-10) History of Clostridioides difficile colitis ?Z86.19 - Personal history of other infectious and parasitic diseases (ICD- 10) Yeast infection ?B37.9 - Candidiasis, unspecified (ICD-10) History of hypothyroidism ?Z86.39 - Personal history of other endocrine, nutritional and metabolic disease (ICD-10) History of diverticulitis of colon (05/09/11) ?Z87.19 - Personal history of other diseases of the digestive system (ICD-10) History of Clostridioides difficile infection ?Z86.19 - Personal history of other infectious and parasitic diseases (ICD- 10) Abscess of sigmoid colon due to diverticulitis ?K57.20 - Diverticulitis of large intestine with perforation and abscess without bleeding (ICD-10) Osteoporosis ?M81.0 - Age-related osteoporosis without current pathological fracture (ICD- 10) Sigmoid diverticulitis ?K57.32 - Diverticulitis of large intestine without perforation or abscess without bleeding (ICD-10) History of femur fracture ?Z87.81 - Personal history of (healed) traumatic fracture (ICD-10) Insomnia ?G47.00 - Insomnia, unspecified (ICD-10) Anxiety ?F41.9 - Anxiety disorder, unspecified (ICD-10) Sarcoidosis ?D86.9 - Sarcoidosis, unspecified (ICD-10) Hypothyroidism ?E03.9 - Hypothyroidism, unspecified (ICD-10) Sensorineural hearing loss (SNHL) of both ears ?H90.3 - Sensorineural hearing loss, bilateral (ICD-10) Depression ?F32.A - Depression, unspecified (ICD-10) Chronic fatigue syndrome ?R53.82 - Chronic fatigue, unspecified (ICD-10) 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 - Unspecified juvenile rheumatoid arthritis of unspecified site (ICD- 10) Migraines ?G43.909 - Migraine, unspecified, not intractable, without status migrainosus (ICD-10) Diverticulitis of intestine with abscess ?K57.80 - Diverticulitis of intestine, part unspecified, with perforation and abscess without bleeding (ICD-10) Surgical History History of total knee replacement ?Z96.659 - Presence of unspecified artificial knee joint (ICD-10) S/P hammer toe correction ?Z98.890 - Other specified postprocedural states (ICD-10) ?Z87.39 - Personal history of other diseases of the musculoskeletal system and connective tissue (ICD-10) History of repair of rotator cuff ?Z98.890 - Other specified postprocedural states (ICD-10) History of tonsillectomy ?Z90.89 - Acquired absence of other organs (ICD-10) History of total hip arthroplasty ?Z96.649 - Presence of unspecified artificial hip joint (ICD-10) History of bilateral knee arthroplasty ?Z96.653 - Presence of artificial knee joint, bilateral (ICD-10) Family History Father High blood pressure Hyperlipidemia Mother High blood pressure Hyperlipidemia Sister Seizure disorder Social History Narrative: She lives alone in [place]. 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 She does not smoke. She drinks alcohol about once a month. She uses no recreational drugs. She does have a history of chemical dependency. Healthcare power of traffic law attorney is her sister Denise. Code status is full. Are you following a special diet: Yes (no gluten, lactose intolerent) Highest level of school completed/degree received: Master's degree Smoking Status: Never smoker Do you use any of these nicotine containing products: None Second hand tobacco smoke exposure: No How often do you have a drink containing alcohol: never How often do you have six or more drinks on one occasion: Never AUDIT-C Alcohol total score: 0 Non-prescribed substance use: denies use Caffeine: Yes (coffee 3x weekly) Are you now , , , , never or living with a partner: Social isolation score (0-1 are the most socially isolated patients): 0 Are you currently sexually active: No service: No Exam Narrative: Exam Narrative: Vital signs as noted above. In general, an alert, well-appearing patient. Head: Normocephalic, atraumatic. Eyes: Pupils are equal reactive. Extraocular movements are full. Conjunctivae are normal. ENT: Mucous membranes are moist. Throat is normal. Neck: Supple without lymphadenopathy. Heart: Regular rate and rhythm. No murmur or rub. Lungs: Clear bilaterally. No increased work of breathing, crackles or wheezes. Abdomen: Soft and nondistended. Mild left-sided tenderness without rebound guarding or rigidity. Extremities: Well perfused. No edema. No calf tenderness. Pulses intact. Neurologic: Patient is alert and oriented to person and place. Speech is fluent. Face is symmetric. Moves all extremities equally. Affect: Anxious Skin: Warm and dry. Well perfused. Const: Vital Signs, click to edit/add: Vital Signs - 24 hr 12/12/22 18:33 Temperature 97.5 F L Pulse Rate [Right Pulse Oximeter] 74 Respiratory Rate 18 Blood Pressure [Ri ght Upper Arm] 125/69 Pulse Oximetry 98 Oxygen Delivery Me thod Room Air Documenting provider has reviewed patient's vital signs: yes Course Course Hospital Course: My initial plan was to check labs, given nonbloody watery diarrhea for 4 days without significant progression, I thought that if her labs looked okay she probably did not warrant imaging. However, review of her records shows that her labs really were all normal a year ago when she had diverticulitis with an abscess. Her risk for diverticulitis should be lowered status post her surgery, but I think in the interest of completeness will do a CT scan to make sure there are no changes suggestive of diverticulitis with complication. Otherwise, I have reviewed most of her visits over the past year as well as previous imaging and labs. Labs were normal 4 days ago and remain normal today with a CBC showing white count of 6 and hemoglobin of 13.6, sodium 135, potassium 3.9. COVID is pending. COVID negative, CT of the abdomen and pelvis by my review did not show any obvious diverticulitis. Final radiology read is a postsurgical changes of partial sigmoidectomy but no obstruction, diverticulitis or other acute findings. She has some chronic findings such as renal cysts. She did request something for anxiety here, had 0.5 mg of Ativan IV. She takes Ativan at home. I have prescribed Lomotil, recommend primary care follow-up and consideration of GI if not improving by next week. For acute worsening, bloody stools, fever, vomiting etcetera return to the emergency department. Vital Signs Vital signs: Initial Vital Signs Temperature 97.5 F L 12/12/22 18:33 Temperature Source Temporal Artery Scan 12/12/22 18:33 Pulse Rate 74 12/12/22 18:33 Respiratory Rate 18 12/12/22 18:33 Blood Pressure 125/69 12/12/22 18:33 Blood Pressure Mean 87 12/12/22 18:33 Blood Pressure Position Sitting 12/12/22 18:33 Pulse Oximetry 98 12/12/22 18:33 Oxygen Delivery Method Room Air 12/12/22 18:33 Vital Signs Temperature 97.5 F L 12/12/22 18:33 Pulse Rate 74 12/12/22 18:33 Respiratory Rate 18 12/12/22 18:33 Blood Pressure 125/69 12/12/22 18:33 Pulse Oximetry 98 12/12/22 18:33 Oxygen Delivery Method Room Air 12/12/22 18:33 Temperature 97.5 F L 12/12/22 18:33 Pulse Rate 74 12/12/22 18:33 Respiratory Rate 18 12/12/22 18:33 Blood Pressure 125/69 12/12/22 18:33 Pulse Oximetry 98 12/12/22 18:33 Oxygen Delivery Method Room Air 12/12/22 18:33 Medical Decision Making Lab Data Labs: Lab Results 12/12/22 12/12/22 Range/Units 18:55 18:56 WBC 6.08 (4.50-11.00) K/uL RBC 4.46 (4.00-5.20) m/uL Hgb 13.6 (12.0-16.0) gm/dL Hct 40.1 (33.0-51.0) % MCV 90 (80-100) fL MCH 31 (26-34) pg MCHC 34 (32-36) gm/dL RDW Coeff of Chuck 11.8 (11.5-15.5) % Plt Count 239 (140-440) K/uL Neut % (Auto) 65.6 (42.0-72.0) % Lymph % (Auto) 27.3 (20-44) % [place] % (Auto) 5.6 (0.0-11.0) % Eos % (Auto) 1.0 (0.0-7.0) % Baso % (Auto) 0.3 (0.0-3.0) % Neut # (Auto) 3.99 (1.7-7.0) K/uL Lymph # (Auto) 1.66 (0.90-2.90) K/uL [place] # (Auto) 0.30 (0.00-0.90) K/UL Eos # (Auto) 0.06 (0.00-0.50) K/uL Baso # (Auto) 0.02 (0.00-0.30) K/uL Abs Immat Gran (auto) 0.01 (0.00-0.30) K/uL Imm/Tot Granulo (auto) 0.2 % Sodium 135 (135-149) mmol/L Potassium 3.9 (3.6-5.1) mmol/L Chloride 100 (96-114) mmol/L Carbon Dioxide 27 (20-32) mmol/L BUN 19 (7-30) mg/dL Creatinine 0.8 (0.5-1.5) mg/dL Estimated Creat Clear 57.73 Estimated GFR 83 ml/min Glucose 106 (60-115) mg/dL Calcium 9.3 (8.4-10.6) mg/dL SARS-CoV-2 (PCR) Negative SARS-CoV-2 (Negative) Discharge Plan Discharge Clinical Impression: Diarrhea Patient Disposition: Home, Self-Care Condition: Stable Instructions: Acute Diarrhea (ED) Additional Instructions: Lomotil as prescribed. [place] diet, ibuprofen or Tylenol if needed. Primary care follow-up next week if symptoms do not resolve. All of your stool testing is in fact back and negative, including the stool culture that was sent to [place]. Prescriptions: New diphenoxylate-atropine [Lomotil] 2.5-0.025 mg tablet 1 tab PO DAILY Qty: 7 0RF No Action estradiol [Yuvafem] 10 mcg tablet 10 mcg vaginal 2XW Qty: 24 3RF clobetasol 0.05 % ointment 1 applic topical ONCE Qty: 15 3RF Rx Instructions: Apply as needed to affected area fluconazole [Diflucan] 200 mg tablet 200 mg PO Q72H Qty: 2 0RF trazodone 50 mg tablet 50 mg PO HS liothyronine 5 mcg tablet 5 mcg PO .B.i.d. clobetasol 0.05 % ointment 1 applic TOPICAL .qod lorazepam 0.5 mg tablet 0.5 mg PO Q12H PRN melatonin 3 mg capsule 9 mg PO HS hydromorphone 2 mg Tablet 2 mg PO Q4H PRN5 Days Qty: 30 0RF Lactobacillus acidophilus 0.5 mg (100 million cell) Tablet 1 tab PO TIDWM 90 Days Qty: 90 0RF ondansetron 4 mg tablet,disintegrating 4 mg PO Q6H PRN (Reason: nausea and vomiting) Qty: 10 0RF buspirone 10 mg tablet 10 mg escitalopram oxalate [Lexapro] 10 mg tablet 10 mg PO DAILY fluconazole [Diflucan] 150 mg tablet 150 mg PO Q3D Qty: 2 0RF sulfamethoxazole-trimethoprim [Bactrim DS] 800-160 mg tablet 1 tab PO BID Qty: 14 0RF ondansetron 4 mg film 4 mg PO Q6H PRN (Reason: nausea and vomiting) Qty: 30 0RF fluconazole [Diflucan] 200 mg tablet 200 mg PO Q3D Qty: 2 0RF Follow Up/Referrals: Nivia [place] MD [Primary Care Provider] - Stand Alone Forms: [facility] Info Instructions
[2022-12-12 19:06] LABS: Slide Review Reflex No
--- NOTE | 2022-12-12 19:09 | CRLHL7_ITS ---
For Patients: As a result of the Century Cures Act, medical imaging exams and procedure reports are released immediately into your electronic medical record. You may view this report before your referring provider. If you have questions, please contact your health care provider. INDICATION: Abdominal pain. Diarrhea. TECHNIQUE: CT abdomen and pelvis acquired with 69 mL Isovue 370 contrast. COMPARISON: Multiple priors, most recent CT abdomen/pelvis dated 01/27/2022 FINDINGS: Lower chest: Subcentimeter calcified granuloma in the right middle lobe, unchanged. Stable 0.4 cm slightly spiculated perifissural nodule along the right lower lobe. No focal consolidation. Liver: No suspicious focal hepatic lesion. Gallbladder and bile ducts: Unremarkable. Pancreas: Unremarkable. Spleen: Unremarkable. Adrenal glands: Unremarkable. Kidneys: Kidneys enhance symmetrically, without hydronephrosis. Stable left renal cyst. Addition too small to characterize hypodense bilateral renal lesions are noted. Retroperitoneum: No lymphadenopathy. Bowel and mesentery: Postsurgical changes of partial sigmoidectomy. Bowel is not obstructed. Scattered colonic diverticulosis, without evidence of acute diverticulitis. No significant ascites. No definite pneumoperitoneum. Bladder: Grossly unremarkable. Reproductive organs: Not well seen secondary to extensive streak artifact. No large adnexal mass. Pelvic lymph nodes: No definite lymphadenopathy. Vessels: Few scattered atherosclerotic calcifications. Abdominal wall: No acute abdominal wall abnormality. Bones: Right hip arthroplasty. Multilevel degenerative changes of the spine. No suspicious/aggressive focal osseous lesion. IMPRESSION: 1. Postsurgical changes of partial sigmoidectomy. No evidence of bowel obstruction. Scattered colonic diverticulosis, without evidence of acute diverticulitis. 2. Numerous stable incidental findings as above. Please note that all CT scans at this facility use dose modulation, iterative reconstruction, and/or weight-based dosing when appropriate to reduce radiation dose to as low as reasonably achievable. Dictated by Christian Mas MD @ 12/12/2022 9:24:03 PM (Electronically Signed)
[2022-12-12] MEDS: DIPHENOXYLATE-ATROP 2.5-0.025 TABLET 1 TAB PO (19:13)
[2022-12-12 19:19] LABS: Chloride* 100 mmol/L (96-114); Potassium* 3.9 mmol/L (3.6-5.1); Sodium* 135 mmol/L (135-149)
[2022-12-12 19:22] LABS: Blood Urea Nitrogen* 19 mg/dL (7-30); Calcium* 9.3 mg/dL (8.4-10.6); Carbon Dioxide* 27 mmol/L (20-32); Creatinine* 0.8 mg/dL (0.5-1.5); Est. Creatinine Clearance* 57.73; Estimated Glomerular Filt Rate 83 ml/min; Glucose* 106 mg/dL (60-115)
[2022-12-12 19:34] LABS: SARS PCR* Negative SARS-CoV-2 (Negative)
[2022-12-12] MEDS: 0.9 % SODIUM CHLORIDE 1000 ml 1,000 ML IV (20:01)
[2022-12-12] MEDS: LORazepam 2 MG/ML inj 0.5 MG IVP (20:32)
[2022-12-12 21:42] VITALS: BP 118/73; PULSE 69; RESP 16; TEMP 36.7; O2SAT 98
== END 2022-12-12 21:43 | disposition home or self-care (01) ==
PROVIDERS: Emergency Provider Emergency Medicine; PCP Family Medicine
DX: R19.7 Diarrhea, unspecified (principal)
CPT/HCPCS: 36415; 74177; 80048; 85025; 87635; 96374; 99284; A9270; J2060; J7030; Q9967

== ENCOUNTER 2023-01-17 13:44 | Outpatient (CLI) | payer MEDICARE, BC, SELFPAY ==
--- NOTE | 2023-01-17 13:45 | MR_ITS ---
[address] [address] Phone:?[phone] Fax:?[phone] Referring Physician Information: Facundo Mijares M.D. [address] [facility] [address] Phone:?[phone] Fax:?[phone] Patient:Sophia Brown D.O.B:?1960 Sex:?Female Phone:?[phone] [facility] MRN:?[id number] Exam Date:?01/17/2023 EXAM: MRI of the RIGHT SHOULDER, without contrast CLINICAL: Chronic right shoulder pain. COMPARISONS: None available. TECHNICAL: Multiplanar multisequence MRI of the right shoulder was obtained. SEDATION: None. CONTRAST: None. FINDINGS: Rotator cuff: Supraspinatus/Infraspinatus: There is full-thickness tearing throughout the entire distal supraspinatus tendon extending into the anterior distal infraspinatus tendon with retraction of torn tendon fibers to the level of the glenoid. Mild to moderate fatty atrophy of the retracted supraspinatus muscle belly. Minimal fatty atrophy of the infraspinatus muscle. Teres minor: No tendinosis, tear or atrophy. Subscapularis: Mild to moderate tendinosis of the distal tendon without significant tendon tear. No significant fatty atrophy of the muscle belly. Bursae: Subacromial-subdeltoid: No significant bursal fluid. Subcoracoid: No significant bursal fluid. Coracoacromial arch: Acromion morphology: Type II. No os acromiale. Acromiohumeral space: Markedly narrowed with superior humeral head migration. Coracohumeral space: Within normal limits. Biceps tendon, long head: Mild tendinosis of the intra-articular tendon. No significant tendon tear or displacement. Glenohumeral joint: Physiologic volume of joint fluid. Articular cartilage: There is high-grade/full-thickness chondral loss involving the inferomedial humeral head with a small segment of high-grade/full-thickness chondral loss involving the anterosuperior glenoid. Capsule: No convincing evidence of capsular thickening or injury. Labrum: Attenuation and degenerative changes throughout the glenoid labrum. No perilabral cyst identified. Bones: No suspicious marrow signal alteration, fracture or dislocation. There is mild degenerative peripheral marginal spurring involving the glenohumeral joint with mild subchondral cystic change involving the inferomedial humeral head. Acromioclavicular joint: Mild changes of arthrosis. No AC joint injury/widening. IMPRESSION: 1. Full-thickness tearing throughout the entire distal supraspinatus tendon extending into the anterior distal infraspinatus tendon with retraction of torn tendon fibers to the level of the glenoid. Mild to moderate fatty atrophy of the retracted supraspinatus muscle belly. 2. Mild to moderate tendinosis of the distal subscapularis tendon. 3. Mild tendinosis of the intra-articular long head biceps tendon. 4. Attenuation and degenerative changes throughout the glenoid labrum. 5. High-grade/full-thickness chondral loss involving the inferomedial humeral head with a small segment of high-grade/full-thickness chondral loss involving the anterosuperior glenoid. Mild osseous changes of glenohumeral osteoarthritis 6. Mild AC joint arthrosis. [facility] Electronically signed on 01/17/2023 5:15:00 PM by Volodymyr Springer D.O.
--- OUTSIDE RECORDS SUMMARY | 2023-01-17 13:47 | XMS_ITS | Continuity of Care Document ---
Author Name Unknown Organization [facility] rosa maria Address [address] [place] [address] Phone Care Team Providers Care Monkey Breeder Name Role Phone Will MD LARSON, Leif [...] Diagnoses Date Provider Providers Copied on Encounter [facility], [address] [place] [address] [place], [place], [id number] , [place] tel:[phone] [facility] No Information 2 Will Leif. [address] [place], [id number] , [place]. tel:[phone] [facility], [address] [place] [address] [place], [place], [id number] , [place] tel: [phone] [facility] [place] No Information 1 Nolan Gilberto. [facility], [address], [place], [address], [place]. tel:[phone] OFFICE/OUTPA TIENT VISIT, [facility], [address] [place] [address] [place], [place], [id number] , [place] tel: [phone] [facility] Leg Pain (chief complaint) Encounter for therapeutic drug level monitoringLong term (current) use of opiate analgesicLow back pain, unspecifiedPain in left shoulderEncounter for screening for other disorderCausalgia of right lower limb 1 Nolan Gilberto. [facility], [address], [place], [address], [place]. tel:[phone] Referring Provider: Leif Walsh, [address] [place] [address] [place], [address] . tel:[phone] OFFICE/OUTPA TIENT VISIT, [facility], [address] [place] [address] [place], [place], [id number] , [place] [phone] [facility] back and hip pain (chief complaint) LumbagoCervicalgia -201 4 Scout Ortiz. [address] [place] [address] [place], [id number] , [place]. [phone] Referring Provider: Leif Walsh, [address] [place] [address] [place], [address] . tel:[phone] Family History Family Member Type Diagnosis Age At Onset Father Problem (finding) back issues Payers Payer name Insurance type Covered constitution party ID Maci hampton(s) Medicare MB [id number] Social History Type Description Quantity Date Captured [...] Goal Height. Due on d ue Goal CARTON MARKER MACHINE Paperwork. Due on due Goal Order Annual PT. Due on due Goal RELIABILITY ENGINEER Scanned. Due on due Goal Creatinine. Due on due Goal AST (SGOT). Due on due Goal Weight. Due on d ue Goal Tobacco Use. Due on due Goal AST (SGOT). Due on due Goal Creatinine. Due on due Goal RELIABILITY ENGINEER Scanned. Due on due Goal Order Annual PT. Due on due Goal CARTON MARKER MACHINE Paperwork. Due on due Goal ALT (SGPT). Due on due Goal UDT. Due on due Goal OARS. Due on due Goal AST (SGOT). Due on due Goal OARS. Due on due Goal Creatinine. Due on due Goal CARTON MARKER MACHINE Paperwork. Due on due Goal RELIABILITY ENGINEER Scanned. Due on due Goal ALT (SGPT). [...] pain referred by Dr. Tobias Martin through [facility]. This pain began after falling on ice and fracturing her R femur in 2018. [facility] did her initial trauma surgery at the time. Dr. Martin then completed bone grafting on her right femur recently and believes that her new femur hardware may be irritating her R hip hardware from a hip replacement in 1995. Denies any leg numbness or tingling and endorses swelling in her R thigh. She is following up at [place] when she is able to schedule. Pain is described as aching and stiff. Pain averages 7/10.In addition, she c/o neck and lower back pain that she believes is linked to a difference in leg lengths. Denies any lower back surgeries. Further carries a buttermaker dx of fibromyalgia. She has tried PT [...]
== END 2023-01-17 13:45 | disposition home or self-care (01) ==
LOC: MRI 13:45
PROVIDERS: PCP Family Medicine; Visit Provider Family Medicine
DX: M25.511 Pain in right shoulder (principal); M75.51 Bursitis of right shoulder; M75.101 Unspecified rotator cuff tear or rupture of right shoulder, not specified as traumatic; M19.011 Primary osteoarthritis, right shoulder
CPT/HCPCS: 73221

== ENCOUNTER 2023-02-11 08:13 | Outpatient (CLI) | payer MEDICARE, BC, SELFPAY | END 2023-02-11 08:14 | disposition home or self-care (01) | LOC: INJ CL 08:14 | PROVIDERS: PCP Family Medicine; Visit Provider Family Medicine | DX: M54.16 Radiculopathy, lumbar region (principal); M51.36 Other intervertebral disc degeneration, lumbar region | CPT/HCPCS: 62323; J1100; Q9966 ==

== ENCOUNTER 2023-02-17 14:08 | Outpatient (CLI) | payer MEDICARE, BC, SELFPAY | END 2023-02-17 14:09 | disposition home or self-care (01) | LOC: NFLDREF 02-19 12:52 | PROVIDERS: PCP Family Medicine; Referring Provider Family Medicine; Visit Provider Nurse Practitioner Family | DX: R30.0 Dysuria (principal); N39.0 Urinary tract infection, site not specified | CPT/HCPCS: 87086; 87186 ==

== ENCOUNTER 2023-02-21 14:51 | Outpatient (CLI) | payer MEDICARE, BC, SELFPAY ==
--- OUTSIDE RECORDS SUMMARY | 2023-02-22 03:44 | XMS_ITS | Continuity of Care Document ---
Author Name Unknown Organization [facility] Address [address] [address] [place] [address] Care Team Providers Care Rope Tier Name Role Phone [place], [place] Unavailable Unav ailable Procedures Procedure Date Colono Pt Doc Pt W/o Advance Directives Directive Yes / No Effective Date File Name No Information Encounters Encounter Description Practice Location Reason(s) For Visit Diagnoses Date Provider Providers Copied on Encounter [facility], [address] [address], [place], [place], [id number], [facility] No Information [facility]. [address] [address], [place], [place], [id number], . tel:[phone] Referring Provider: Dav Farnsworth MD [address], [address] [facility] [address], [place], [address]. tel:[phone] Family History Family Member Type Diagnosis Age [...]
--- OUTSIDE RECORDS SUMMARY | 2023-02-22 03:44 | XMS_ITS | Continuity of Care Document ---
Author Name Unknown Organization [facility] rosa maria Address [address] [place] [address] Phone Care Team Providers Care Senior Windows Systems Engineer Name Role Phone Will MD LARSON, Leif [...] Diagnoses Date Provider Providers Copied on Encounter [facility], [address] [place] [address] [place], [place], [id number] , [place] tel:[phone] [facility] No Information 2 Will Leif. [address] [place], [id number] , [place]. tel:[phone] [facility], [address] [place] [address] [place], [place], [id number] , [place] tel: [phone] [facility] [place] No Information 1 Nolan Gilberto. [facility], [address], [place], [address], [place]. tel:[phone] OFFICE/OUTPA TIENT VISIT, [facility], [address] [place] [address] [place], [place], [id number] , [place] tel: [phone] [facility] Leg Pain (chief complaint) Encounter for therapeutic drug level monitoringLong term (current) use of opiate analgesicLow back pain, unspecifiedPain in left shoulderEncounter for screening for other disorderCausalgia of right lower limb 1 Nolan Gilberto. [facility], [address], [place], [address], [place]. tel:[phone] Referring Provider: Leif Walsh, [address] [place] [address] [place], [address] . tel:[phone] OFFICE/OUTPA TIENT VISIT, [facility], [address] [place] [address] [place], [id number] , [place] [phone] [facility] back and hip pain (chief complaint) LumbagoCervicalgia -201 4 Scout Ortiz. [address] [place] [address] [place], [id number] , [place]. [phone] Referring Provider: Leif Walsh, [address] [place] [address] [place], [address] . tel:[phone] Family History Family Member Type Diagnosis Age At Onset Father Problem (finding) back issues Payers Payer name Insurance type Covered constitution party ID Maci hampton(s) Medicare MB [id number] Social History Type Description Quantity Date Captured Comments Alcohol Use Details Unknown Caffeine Use Details Unknown Tobacco Use Status No Information Smoking Status No Information Sex Female Chief Complaint And Reason For Visit No Information Reason For Referral Reason For Referral No Information Plan Of Treatment Date Type Action Status Goal AST (SGOT). Due on due Goal Creatinine. Due on due Goal RECREATION INSTRUCTOR Scanned. Due on due Goal Order Annual PT. Due on due Goal FISHER TERRAPIN Paperwork. Due on due Goal ALT (SGPT). [...] due Goal Creatinine. Due on due Goal RECREATION INSTRUCTOR Scanned. Due on due Goal Order Annual PT. Due on due Goal FISHER TERRAPIN Paperwork. Due on due Goal ALT (SGPT). Due on due Goal UDT. Due on due Goal OARS. Due on due Goal Order Annual PT. Due on due Goal UDT. Due on due Goal ALT (SGPT). Due on due Goal RECREATION INSTRUCTOR Scanned. Due on due Goal FISHER TERRAPIN Paperwork. Due on due Goal Creatinine. Due [...] pain referred by Dr. Tobias Martin through [facility]. This pain began after falling on ice and fracturing her R femur in 2018. [facility] did her initial trauma surgery at the time. Dr. Martin then completed bone grafting on her right femur recently and believes that her new femur hardware may be irritating her R hip hardware from a hip replacement in 1995. Denies any leg numbness or tingling and endorses swelling in her R thigh. She is following up at [place] when she is able to schedule. Pain is described as aching and stiff. Pain averages 7/10.In addition, she c/o neck and lower back pain that she believes is linked to a difference in leg lengths. Denies any lower back surgeries. Further carries a mcc dx of fibromyalgia. She has tried PT [...] RX on 05/08/[address] Mijares at [facility]. She takes 1-2 Dilaudid per month.Mrs. Brown is interested in pain management and medical cannabis certification through [facility]. No other concerns today. Functional Status Date Functional Assessmen t No Information Instructions Date Instruction Additional Infor mation Continue current medication Reviewed medications New medication is prescribed Follow exercise program Depression Screen Oswestry Score Assessments Type Assessment Date No Information Patient Care Teams Name Effective Dates (start - stop) Status Members No Information
--- OUTSIDE RECORDS SUMMARY | 2023-02-22 03:44 | XMS_ITS | Continuity of Care Document ---
Author Name Unknown Organization [facility] Address [address] [address] [place] [address] Phone Care Team Providers Care Vessel Liner Name Role Phone Tavia Horne Unavailable Unavailable [...] Diagnoses Date Provider Providers Copied on Encounter [facility] [address] [address], [place], [id number], [place] tel:[phone] [facility] No Information Edstrchantal Squires. [address] [facility], [facility] [address], [place], [place], [id number], [place]. tel:[phone] [facility] [address] [address], [place], [id number], [place] tel:[phone] [facility] Diverticulosis of colon (without mention of hemorrhage)Dvr tclos of lg int w/o perforation or abscess w/o bleeding No Information Referring Provider: Referral Self. [facility] [address] [address], [place], [id number], [place] tel:[phone] [facility] No Information Aug-2 5-202 2 No Information Telephone E&M III 21-30 Min SUSU [facility], [address] [address], [place], [id number], [place] tel:[phone] [facility] GI Symptoms or Concerns (chief complaint) Diverticulitis 2 Edstrom [facility] Squires. [address] [facility], [facility] [address], [place], [id number], [place]. tel:[phone] Referring Provider: Referral Self. [facility], [address] [address], [place], [address], [place] tel:[phone] [facility] No Information 2 Link MD Null. [address] [facility] [address], [place], [place], [id number], [place]. tel:[phone] [facility], [address] [address], [place], [address], [place] tel:[phone] [facility] Diverticulosis of colon (without mention of hemorrhage)Per pinky history of colonic polypsDvtrcli of lg int w/o perforation or abscess w/o bleedingDvrtcl os of lg int w/o perforation or abscess w/o bleedingPerson al history of colonic polyps 0 9 No Information Referring Provider: Nivia Bruno MD, [address] [place] [address], [address]. tel:[phone] [facility], [address] [address], [place], [address], [place] tel:[phone] [facility] History of colon polypsDivertic ular disease of large intestineDvtrc li of lg int w/o perforation or abscess w/o bleedingDvrtcl os of lg int w/o perforation or abscess w/o bleedingPerson al history of colonic polyps 5 Javad Demarco. [address] [facility], [address], [place], [address], [place]. tel:[phone] Referring Provider: Heladio Martins MD, [address] [place] [address], [address]. tel:[phone] [facility], [address] [address], [place], [id number], [place] tel:[phone] [facility] Pain 4 Tatiana Ray. [address] [place] [address], [place] [address], [place], [place], [id number], [place]. tel:[phone] [facility], [address] [address], [place], [id number], [place] tel:[phone] [facility] Hiatal HerniaPolyp-in chalo/rect/stom- unc BehLUQ PainGastric Polyp-benignGa stric Polyp-benignLU Q PainHiatal Hernia 4 Nelson Ferris. [address] [place] [address], [id number], [place]. tel:[phone] Referring Provider: Heladio Martins MD, [address] [place] [address], [address]. tel:[phone] [facility], [address] [address], [place], [id number], [place] tel:[phone] [facility] Pain 4 Tatiana Ray. [address] [place] [address], [id number], [place]. tel:[phone] Referring Provider: Heladio Martins MD, [address] [place] [address], [address]. tel:[phone] Offic/outpt E&m Estab Mod-hi 2 [facility], [address] [address], [place], [id number], [place] tel:[phone] [facility] LUQ PainDiarrhea 4 Tatiana Ray. [address] [place] [address], [id number], [place]. tel:[phone] Referring Provider: Heladio Martins MD, [address] [place] [address], [address]. tel:[phone] [facility], [address] [address], [place], [id number], [place] tel:[phone] [facility] Diverticulosis Of ColonHx Of Digest Disease NecDiverticulo sis Of ColonHx Of Digest Disease Nec 3 No Information Referring Provider: Heladio Martins MD, [address] [place] [address], [place], [address]. tel:[phone] [facility], [address] [address], [place], [id number], [place] tel:[phone] [facility] Diverticulosis Of ColonDiverticu litis Of ColonDiverticu litis Of Colon 2 No Information Referring Provider: Heladio Martins MD, [address] [place] [address], [place], [address]. tel:[phone] [facility], [address] [address], [place], [id number], [place] tel:[phone] [facility] Colon Cancer ScreeningPerso nal History Colon PolypsDivertic ulosis Of Colon 8 No Information Referring Provider: Daniel Griffin, [address] [place] [address], [place], [address]. tel:[phone] [facility], [address] [address], [place], [address], [place] tel:[phone] [facility] Personal history colon polyps 6 No Information Offic Cons New/estab [facility], [address] [address], [place], [address], [place] tel:[phone] [facility] Diverticulosis Of ColonPolyp-int es/rect/stom-u nc beh 6 [...] libertarian ID Authoriza tion(s) Medicare NGS MB [id number] [facility] Medicare Supplement BL [id number] Social History Type Description Quantity Date Captured [...] Present Illness Encounter Date Complaint History Of Suzanne nt Illness GI Symptoms or Concerns This [...] 5 years ago, she was hospitalized at [facility] at which time there was evidence of [...] recent colonoscopy in 2019. Related to Diverticulitis Colon Cancer Prevention Related to Diverticulosis of colon (without mention of hemorrhage) High Fiber Diet Related to Diver ticulosis of colon (without mention of hemorrhage) Diverticulosis/Diverticulitis Re lated to Diverticulosis of colon [...]
== END 2023-02-21 14:52 | disposition home or self-care (01) ==
LOC: NFLDREF 02-22 03:42
PROVIDERS: PCP Family Medicine; Referring Provider Family Medicine; Visit Provider Physician Assistant
DX: R30.0 Dysuria (principal); J06.9 Acute upper respiratory infection, unspecified; N39.0 Urinary tract infection, site not specified
CPT/HCPCS: 87086

== ENCOUNTER 2023-04-04 12:03 | Outpatient (CLI) | payer MEDICARE, BC, SELFPAY | END 2023-04-04 12:04 | disposition home or self-care (01) | LOC: NFLDREF 04-06 06:51 | PROVIDERS: PCP Family Medicine; Referring Provider Family Medicine; Visit Provider Nurse Practitioner Family | DX: R39.15 Urgency of urination (principal) | CPT/HCPCS: 87086 ==

== ENCOUNTER 2023-04-07 14:05 | Emergency (ER) | payer MEDICARE, BC, SELFPAY ==
[2023-04-07 14:54] VITALS: BP 114/69; PULSE 75; RESP 16; TEMP 36.6; O2SAT 97; BMI 22.8
[2023-04-07 15:31] LABS: Appearance Urine Clear (Clear); Bilirubin Urine Negative (Negative); Blood Urine Negative (Negative); Color Urine Yellow (Yellow); Glucose Urine Negative (Negative); Ketones Urine Negative (Negative); Leukocyte Esterase Urine Trace (Negative); Nitrite Urine Negative (Negative); Protein Urine Negative (Negative); Specific Gravity Urine 1.015 (1.000-1.030); Urobilinogen Urine 0.2 (0.2-1.0); pH Urine 7.5 (5.0-8.5)
[2023-04-07 15:49] LABS: Amorphous Sediment Urine Few; Bacteria Urine Few; Squamous Epithelial Cell Urine Few (None-Few)
[2023-04-07 15:55] LABS: Strep A DNA Probe* NOT DETECTED (Not Detectd)
[2023-04-07 15:59] LABS: PCR FLU A Negative PCR FLU A (Negative); PCR FLU B Negative PCR FLU B (Negative); PCR RSV Negative PCR RSV (Negative)
[2023-04-07 16:14] LABS: SARS PCR* Negative SARS-CoV-2 (Negative)
--- NOTE | 2023-04-07 16:47 | ED_ITS ---
HPI - General Adult General Chief complaint: Unspecified Complaint, Adult Stated complaint: influenza, sore throat Time Seen by Provider: 04/07/23 16:14 History of Present Illness HPI narrative: This 62-year-old female comes in reporting sore throat and dysuria symptoms. She states that she was seen in urgent care 3 days ago at which time testing was positive for influenza B. She has been taking Tamiflu as prescribed. At that time she also had a urinalysis done and a culture returned with greater than 100,000 colonies of mixed beckie gram-positive organism. She continues to have dysuria symptoms. She does report a productive cough occasionally. She states that she has history of pulmonary sarcoidosis but does not report any shortness of breath. She arrives with normal vital signs. Related Data Home Medications Medication Instructions Recorded Confirmed clobetasol 0.05 % topical ointment 1 applic topical .qod 11/21/21 04/04/23 liothyronine 5 mcg tablet 5 mcg PO .B.i.d. 11/21/21 04/04/23 lorazepam 0.5 mg tablet 0.5 mg PO Q12H PRN 12/08/21 04/04/23 melatonin 3 mg capsule 9 mg PO HS 12/08/21 04/04/23 trazodone 50 mg tablet 100 mg PO QHS PRN 01/17/23 04/04/23 buspirone 15 mg tablet 15 mg PO BID 03/25/23 04/04/23 cyclosporine 0.05 % eye drops in a drp ophthalmic (eye) 03/25/23 04/04/23 dropperette escitalopram oxalate 10 mg tablet 15 mg PO DAILY 03/25/23 04/04/23 (Lexapro) lidocaine HCl 2 % mucosal solution PO 03/25/23 04/04/23 (Lidocaine Viscous) propranolol 20 mg tablet 20 mg PO BID 03/25/23 04/04/23 tretinoin 0.025 % topical cream 1 applic topical QPM 03/25/23 04/04/23 valacyclovir 1 gram tablet 1,000 mg PO 3XD 03/25/23 04/04/23 varenicline 0.03 mg/spray nasal intranasal 03/25/23 04/04/23 spray (Tyrvaya) Previous Rx's Medication Instructions Recorded Lactobacillus acidophilus 0.5 mg 1 tab PO TIDWM 90 days #90 tabs 08/01/22 (100 million cell) tablet hydromorphone 2 mg tablet 2 mg PO Q4H PRN 5 days #30 tabs 12/10/21 ondansetron 4 mg disintegrating 4 mg PO Q6H PRN nausea and 12/10/21 tablet vomiting #10 tabs estradiol 10 mcg vaginal tablet 10 mcg vaginal 2XW #24 tabs 06/10/22 (Yuvafem) Magic Mouthwash 5 ml PO Q4-6H #120 mL 01/17/23 (Lidocaine/Benadryl/Maalox) 120 mL suspension albuterol sulfate 90 mcg/actuation 2 puff inhalation Q4-6H PRN 03/05/23 aerosol inhaler shortness of breath or wheezing #8.5 grams triamcinolone acetonide 0.025 % 1 applic topical BID #15 grams 03/25/23 topical cream oseltamivir 75 mg capsule 75 mg PO BID 5 days #10 caps 04/04/23 cephalexin 500 mg capsule 500 mg PO TID 7 days #21 caps 04/07/23 Allergies Allergy/AdvReac Type Severity Reaction Status Date / Time auranofin Allergy Verified 04/04/23 14:32 cat dander Allergy Verified 04/04/23 14:32 Gadolinium-Containing Allergy Verified 04/04/23 14:32 Contrast Medi gluten Allergy Verified 04/04/23 14:32 gold keratinate Allergy Verified 04/04/23 14:32 gold sodium thiomalate Allergy Verified 04/04/23 14:32 lactose Allergy Verified 04/04/23 14:32 Opioids - Morphine Analogues Allergy Verified 04/04/23 14:32 goldshots Allergy Severe Anaphylaxis Uncoded 04/04/23 14:32 Review of Systems Status of ROS: Reports: 10 or more systems reviewed and unremarkable except as noted in History and below Narrative: Constitutional: No fevers, no weight gain or loss. Eyes: No discharge. No vision changes. HENT: No congestion, no ear pain. She reports a sore throat. Cardiovascular: No chest pain, no palpitations. Respiratory: No shortness of breath, no wheezes. Cough which is occasionally productive. Gastrointestinal: No abdominal pain, no vomiting, no diarrhea. Genitourinary: She reports darker colored odorous urine. Musculoskeletal: Normal range of motion. Skin: No rashes, no pruritis. Neurological: No dizziness, weakness, sensory change, speech change. Endo/Heme/Allergies: No bruising or bleeding. No polydipsia. Pysch: no suicidality, no anxiety, no insomnia. All other systems reviewed and are negative. [facility] Medical History (Updated 04/07/23 @ 16:52 by Adam Josue MD) Herpes zoster ?B02.9 - Zoster without complications (ICD-10) Diverticulitis ?K57.92 - Diverticulitis of intestine, part unspecified, without perforation or abscess without bleeding (ICD-10) Closed T12 fracture ?S22.089A - Unspecified fracture of T11-T12 vertebra, initial encounter for closed fracture (ICD-10) History of Clostridioides difficile colitis ?Z86.19 - Personal history of other infectious and parasitic diseases (ICD- 10) History of hypothyroidism ?Z86.39 - Personal history of other endocrine, nutritional and metabolic disease (ICD-10) History of diverticulitis of colon (05/09/11) ?Z87.19 - Personal history of other diseases of the digestive system (ICD-10) History of Clostridioides difficile infection ?Z86.19 - Personal history of other infectious and parasitic diseases (ICD-1 0) Abscess of sigmoid colon due to diverticulitis ?K57.20 - Diverticulitis of large intestine with perforation and abscess without bleeding (ICD-10) Osteoporosis ?M81.0 - Age-related osteoporosis without current pathological fracture (ICD- 10) Sigmoid diverticulitis ?K57.32 - Diverticulitis of large intestine without perforation or abscess without bleeding (ICD-10) History of femur fracture ?Z87.81 - Personal history of (healed) traumatic fracture (ICD-10) Insomnia ?G47.00 - Insomnia, unspecified (ICD-10) Anxiety ?F41.9 - Anxiety disorder, unspecified (ICD-10) Sarcoidosis ?D86.9 - Sarcoidosis, unspecified (ICD-10) Hypothyroidism ?E03.9 - Hypothyroidism, unspecified (ICD-10) Sensorineural hearing loss (SNHL) of both ears ?H90.3 - Sensorineural hearing loss, bilateral (ICD-10) Depression ?F32.A - Depression, unspecified (ICD-10) Chronic fatigue syndrome ?R53.82 - Chronic fatigue, unspecified (ICD-10) 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 - Unspecified juvenile rheumatoid arthritis of unspecified site (ICD- 10) Migraines ?G43.909 - Migraine, unspecified, not intractable, without status migrainosus (ICD-10) Diverticulitis of intestine with abscess ?K57.80 - Diverticulitis of intestine, part unspecified, with perforation and abscess without bleeding (ICD-10) Surgical History History of total knee replacement ?Z96.659 - Presence of unspecified artificial knee joint (ICD-10) S/P hammer toe correction ?Z98.890 - Other specified postprocedural states (ICD-10) ?Z87.39 - Personal history of other diseases of the musculoskeletal system and connective tissue (ICD-10) History of repair of rotator cuff ?Z98.890 - Other specified postprocedural states (ICD-10) History of tonsillectomy ?Z90.89 - Acquired absence of other organs (ICD-10) History of total hip arthroplasty ?Z96.649 - Presence of unspecified artificial hip joint (ICD-10) History of bilateral knee arthroplasty ?Z96.653 - Presence of artificial knee joint, bilateral (ICD-10) Family History Father High blood pressure Hyperlipidemia Mother High blood pressure Hyperlipidemia Sister Seizure disorder Social History Narrative: She lives alone in [place]. 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 She does not smoke. She drinks alcohol about once a month. She uses no recreational drugs. She does have a history of chemical dependency. Healthcare power of city attorney is her sister Denise. Code status is full. Are you following a special diet: Yes (no gluten, lactose intolerent) Highest level of school completed/degree received: Master's degree Smoking Status: Never smoker Do you use any of these nicotine containing products: None Second hand tobacco smoke exposure: No How often do you have a drink containing alcohol: never How often do you have six or more drinks on one occasion: Never AUDIT-C Alcohol total score: 0 Non-prescribed substance use: denies use Caffeine: Yes (coffee 3x weekly) Are you now , , , , never or living with a partner: Social isolation score (0-1 are the most socially isolated patients): 0 Are you currently sexually active: No service: No Exam Narrative: Exam Narrative: Constitutional: Well-developed, well-nourished, no acute distress. HEENT: Normocephalic, atraumatic. Oropharynx has erythema without exudate or tonsillar hypertrophy. Tympanic membranes appear normal bilaterally. Neck: Normal range of motion. Nontender. Supple. Heart: Regular. No murmurs. Normal rate. Intact distal pulses. Lungs: Clear to auscultation. No chest discomfort. No wheezes, rhonchi, or rales. Abdomen: Normal bowel sounds. Nontender. No rebound tenderness. Genitalia: Deferred. Back: No midline tenderness. Normal range of motion. Extremities: Normal range of motion. No injury. Skin: Intact. No rash. Warm. No erythema or pallor. Neurologic: No altered sensation. No weakness. Alert and oriented. Psychiatric: No suicidality. No anxiety or depression. No insomnia. Nursing notes and vitals signs are reviewed. Const: Vital Signs, click to edit/add: Vital Signs - 24 hr 04/07/23 14:54 Temperature 97.9 F Pulse Rate [Right Pulse Oximeter] 75 Respiratory Rate 16 Blood Pressure [Ri ght Upper Arm] 114/69 Pulse Oximetry 97 Oxygen Delivery Me thod Room Air Course Vital Signs Vital signs: Initial Vital Signs Temperature 97.9 F 04/07/23 14:54 Temperature Source Temporal Artery Scan 04/07/23 14:54 Pulse Rate 75 04/07/23 14:54 Pulse Rhythm Regular 04/07/23 14:54 Respiratory Rate 16 04/07/23 14:54 Blood Pressure 114/69 04/07/23 14:54 Blood Pressure Mean 84 04/07/23 14:54 Blood Pressure Position Sitting 04/07/23 14:54 Pulse Oximetry 97 04/07/23 14:54 Oxygen Delivery Method Room Air 04/07/23 14:54 Vital Signs Temperature 97.9 F 04/07/23 14:54 Pulse Rate 75 04/07/23 14:54 Respiratory Rate 16 04/07/23 14:54 Blood Pressure 114/69 04/07/23 14:54 Pulse Oximetry 97 04/07/23 14:54 Oxygen Delivery Method Room Air 04/07/23 14:54 Temperature 97.9 F 04/07/23 14:54 Pulse Rate 75 04/07/23 14:54 Respiratory Rate 16 04/07/23 14:54 Blood Pressure 114/69 04/07/23 14:54 Pulse Oximetry 97 04/07/23 14:54 Oxygen Delivery Method Room Air 04/07/23 14:54 Medical Decision Making MDM Narrative Medical decision making narrative: This patient is a 62-year-old woman who to comes in with the above-stated symptoms. Nasal pharyngeal swab returns negative for COVID, influenza, and RSV. She was positive for influenza B 3 days ago at urgent care and is currently taking Tamiflu. Urinalysis today does show evidence of urinary tract infection. Her lungs sound normal and her vital signs are all in normal range. I did discuss lab and imaging options which the patient declined in a process of shared decision making. She did receive an intramuscular injection of dexamethasone 10 mg and a prescription for Keflex. Lab Data Labs: Lab Results 04/07/23 04/07/23 04/07/23 Range/Units 14:44 14:45 14:50 Urine Color Yellow (Yellow) Urine Appearance Clear (Clear) Urine pH 7.5 (5.0-8.5) Ur Specific Ophelia 1.015 (1.000-1.030) Urine Protein Negative (Negative) Urine Glucose (UA) Negative (Negative) Urine Ketones Negative (Negative) Urine Blood Negative (Negative) Urine Nitrite Negative (Negative) Urine Bilirubin Negative (Negative) Urine Urobilinogen 0.2 (0.2-1.0) Ur Leukocyte Esterase Trace A (Negative) Urine RBC 2-5 A (0-2) Urine WBC 10-25 A (0-5) Ur Squamous Epith Cells Few (None-Few) Amorphous Sediment Few A (None) Urine Bacteria Few A (None) SARS-CoV-2 (PCR) Negative SARS-CoV-2 (Negative) Influenza Type A (PCR) Negative PCR FLU A (Negative) Influenza Type B (PCR) Negative PCR FLU B (Negative) RSV (PCR) Negative PCR RSV (Negative) Group A Strep DNA NOT DETECTED (Not Detectd) Discharge Plan Discharge Clinical Impression: Urinary tract infection, Acute upper respiratory infection Patient Disposition: Home, Self-Care Condition: Stable Additional Instructions: Take medication as prescribed. Follow up with MD return if worsening symptoms happen. Prescriptions: New cephalexin 500 mg capsule 500 mg PO TID 7 Days Qty: 21 0RF No Action estradiol [Yuvafem] 10 mcg tablet 10 mcg vaginal 2XW Qty: 24 3RF trazodone 50 mg tablet 100 mg PO QHS PRN Magic Mouthwash (Lidocaine/Benadryl/Maalox) 120 mL suspension 5 ml PO Q4-6H Qty: 120 0RF Rx Instructions: Lidocaine Viscous 2 % mucosal solution 40 mL; Maalox 200 mg-200 mg-20 mg/5 mL oral suspension 40 mL; Benadryl 12.5 mg/5 mL oral elixir 40 mL; Per 120 mL SWISH AND SPIT. MAY COMPOUND IF FIRST PRODUCT IS NOT AVAILABLE. Tyrvaya 0.03 mg/spray spray, metered, non-aerosol intranasal Patient Comments: [NO ORIGINAL SIG] cyclosporine 0.05 % dropperette ophthalmic (eye) lidocaine HCl [Lidocaine Viscous] 2 % solution PO tretinoin 0.025 % cream 1 applic topical QPM buspirone 15 mg tablet 15 mg PO BID propranolol 20 mg tablet 20 mg PO BID valacyclovir 1 gram tablet 1,000 mg PO 3XD triamcinolone acetonide 0.025 % cream 1 applic topical BID Qty: 15 0RF Rx Instructions: Apply small amount to affected area albuterol sulfate 90 mcg/actuation HFA aerosol inhaler 2 puff inhalation Q4-6H PRN (Reason: shortness of breath or wheezing) Qty: 8.5 0RF oseltamivir 75 mg capsule 75 mg PO BID 5 Days Qty: 10 0RF liothyronine 5 mcg tablet 5 mcg PO .B.i.d. clobetasol 0.05 % ointment 1 applic TOPICAL .qod lorazepam 0.5 mg tablet 0.5 mg PO Q12H PRN melatonin 3 mg capsule 9 mg PO HS hydromorphone 2 mg Tablet 2 mg PO Q4H PRN5 Days Qty: 30 0RF Lactobacillus acidophilus 0.5 mg (100 million cell) Tablet 1 tab PO TIDWM 90 Days Qty: 90 0RF ondansetron 4 mg tablet,disintegrating 4 mg PO Q6H PRN (Reason: nausea and vomiting) Qty: 10 0RF escitalopram oxalate [Lexapro] 10 mg tablet 15 mg PO DAILY Follow Up/Referrals: Nivia Bruno MD [Primary Care Provider] - Stand Alone Forms: [facility] Info Instructions
[2023-04-07] MEDS: dexAMETHasone 10 MG/ML inj IM (16:53)
--- OUTSIDE RECORDS SUMMARY | 2023-04-07 17:02 | XMS_ITS | Continuity of Care Document ---
Author Name Unknown Organization [facility] Address [address] [place] [address] Phone Care Team Providers Care Exercise Instruct Name Role Phone Sanchez Lay MD Unavailable Unavailable Advance Directives Directive Yes / No Effective Date File Name No Information Encounters Encounter Description Practice Location Reason(s) For Visit Diagnoses Date Provider Providers Copied on Encounter [facility], [address], [place], [address], [place] tel:[phone] [facility], No Information Rosanne Bradford. [facility] [address], [place], [address], [place]. tel:[phone] Family History Family Member Type Diagnosis Age [...]
[2023-04-07 17:08] VITALS: BP 114/69; PULSE 75; RESP 16; TEMP 36.6
== END 2023-04-07 17:09 | disposition home or self-care (01) ==
LOC: ED 16:59
PROVIDERS: Emergency Provider Emergency Medicine Emergency Medical Services; PCP Family Medicine
DX: J06.9 Acute upper respiratory infection, unspecified (principal); N39.0 Urinary tract infection, site not specified
CPT/HCPCS: 81001; 87086; 87631; 87651; 96372; 99283; 99284; J1100

== ENCOUNTER 2023-08-18 13:04 | Outpatient (CLI) | payer MEDICARE, BC, SELFPAY ==
--- NOTE | 2023-08-18 | MR_ITS ---
Patient: JULITA CEJA Facility:?[facility] Patient ID:?[id number] Site Patient ID:?[id number]. Site :?1960 Study:?MRI-Neck Angio MRA W/O-08/18/2023 4:48:55 PM Ordering Physician:LINDA BINGHAM Final Report: Indication: Facial twitching Technique: Hdor-ha-rlybpi MRA of the neck with 3D MIP reconstructions provided. All measurements are based on NASCET criteria. Comparison: No prior studies available for comparison at this institution. Findings: The origins of the cervical arteries were not imaged. The remainder of the visualized cervical carotids and vertebral arteries are unremarkable. Specifically, no evidence of high grade stenosis, proximal occlusion, aneurysm, dissection, or vascular malformation. Impression: Unremarkable MRA of the neck as far as visualized. Dictated by Walter Verma MD @ 08/19/2023 11:22:10 AM Signed by:?Walter Verma MD @08/19/2023 11:22:10 AM (Electronic Signature)
--- NOTE | 2023-08-18 13:00 | MR_ITS ---
Patient: JULITA CEJA Facility:?[facility] Patient ID:?[id number] Site Patient ID:?[id number]. Site :?1960 Study:?MRI-Head MRA W/O-08/18/2023 4:47:27 PM Ordering Physician:?LINDA WOLFE Final Report: Indication: Facial twitching Technique: 3D [id number] MR angiogram of the [id number] with 3-dimensional MIP projections were submitted. Comparison: No prior studies available for comparison at this institution. Findings: The visualized first and second order intracranial vessels are unremarkable. No occlusion/filling defect or acquired arterial stenosis identified. No aneurysm or vascular malformation seen. Impression: No evidence of proximal arterial occlusion, aneurysm, dissection, or vascular malformation. Dictated by Walter Verma MD @ 08/19/2023 11:18:53 AM Signed by:?Walter Verma MD @08/19/2023 11:18:53 AM (Electronic Signature)
--- NOTE | 2023-08-18 14:30 | MR_ITS ---
Patient: JULITA CEJA Facility:?[facility] Patient ID:?[id number] Site Patient ID:?[id number]. Site :?1960 Study:?MRI-TMJ-08/18/2023 4:49:51 PM Ordering Physician:LINDA BINGHAM Final Report: INDICATION: Facial twitching. COMPARISON: None. TECHNIQUE: Obliques sagittal open and closed mouth views, oblique coronal and axial localizers of the temporomandibular joints. FINDINGS: Right: Somewhat flattened gracile spurred mandibular condyle with anterior displaced fibro cartilaginous disc in the closed mouth position. There may be some partial tearing in the undersurface at the anterior meniscal homologue. No effusion. Normal anterior excursion with open mouth view. Disc remains anteriorly dislocated. Left: Normal mandibular condyle. Somewhat indistinct and small fibro cartilaginous disc appropriately opposed between condyle and eminence in both the open and closed mouth view. No effusion. IMPRESSION: Chronic moderately prominent right TMJ osteoarthritis. Anterior dislocation of disc in open and closed mouth position. No significant abnormality left joint. Dictated by Facundo Jimenez MD @ 08/19/2023 11:33:23 AM Signed by:?Facundo Jimenez MD @08/19/2023 11:33:23 AM (Electronic Signature)
--- NOTE | 2023-08-18 14:30 | MR_ITS ---
Patient: JULITA CEJA Facility:?[facility] Patient ID:?[id number] Site Patient ID:?[id number]. Site :?1960 Study:?MRI-Head W/O-08/18/2023 4:46:02 PM Ordering Physician:?LINDA WOLFE Final Report: Indication: Facial twitching. Technique: Noncontrast sagittal T1 weighted, axial FLAIR, axial T2 weighted, and axial diffusion weighted sequences are provided. Comparison: MRI 10/15/2022 Findings: The ventricles, sulci and gyri are normal size, shape and contour for age. The midline structures are centrally located with no evidence of shift. There are no suspicious intra or extra-axial fluid collections. No region of restricted diffusion. Expected flow voids in the cavernous carotids and basilar artery. Impression: Unremarkable noncontrast MRI of the head. No significant changes compared to the 10/15/2022 exam. Dictated by Walter Verma MD @ 08/19/2023 11:16:40 AM Signed by:?Walter Verma MD @08/19/2023 11:16:40 AM (Electronic Signature)
== END 2023-08-18 13:05 | disposition home or self-care (01) ==
PROVIDERS: PCP Family Medicine; Visit Provider Psychiatry & Neurology Neurology
DX: G51.4 Facial myokymia (principal); M19.09 Primary osteoarthritis, other specified site; M26.601 Right temporomandibular joint disorder, unspecified; G47.61 Periodic limb movement disorder; G47.9 Sleep disorder, unspecified; M08.00 Unspecified juvenile rheumatoid arthritis of unspecified site; M62.838 Other muscle spasm; R53.83 Other fatigue
CPT/HCPCS: 70336; 70544; 70547; 70551

== ENCOUNTER 2023-08-18 15:06 | Outpatient (CLI) | payer MEDICARE, BC, SELFPAY ==
--- OUTSIDE RECORDS SUMMARY | 2023-08-18 15:11 | XMS_ITS | Clinical Summary ---
Author Name Unknown Organization [facility] Address [address] [place] [address] Care Team Providers Care Animal Park Code Enforcement Officer Name Role Phone Needs Pcp, Assignment Primary Care Provider [phone] Source Comments You are receiving this document as you are listed as the primary care provider,follow-up provider, or the patient has been referred to you for consultation.This is in compliance with the Medicare and[facility] EHR Incentive Program,which states Providers who transition their patient to another setting of careor provider of care or refers their patient to another provider of care shouldprovide summary care record for each transition of care or referral. [facility]1RP Media Allergies Active Allergy Reactions Criticality Noted Date Comments Auranofin 12/10/1999 PN: LW Reaction: gold shots-hives Gadolinium Other, see comments 12/10/1999 Other reaction(s): Other (see comments) PN: LW CM1: CONTRAST- nka Reaction : PN: LW CM1: CONTRAST- nka Reaction : Other Anaphylaxis High 12/10/1999 PN: LW Other1: -nka Allergy to Gold Shots Review Food Intolerance 12/10/1999 Gluten sensitive not, intolerant. Medications Medication Sig Dispensed Refills Start Date End Date Status omega-3 fatty acids (FISH OIL) 1000 MG capsuleIndications :supplement Take 1 Capsule by mouth daily. Indications: supplement 90 capsule 0 10/24/2011 Active aspirin 325 MG tabletIndications: clot prevention Take 325 mg by mouth daily. Indications: clot prevention Active busPIRone (BUSPAR) 10 MG tabletIndications: Anxiety Disorder Take 20 mg by mouth two times a day. Indications: Anxiety Disorder Active ALBUterol 1.25 mg/3 mL (ACCUNEB) 1.25 MG/3ML nebulizer solutionIndication s:lung health Inhale 1.25 mg every 6 hours as needed for Wheezing. Indications: lung health Active ALBUterol sulfate HFA 108 (90 Base) MCG/ACT inhaler Inhale 1-2 Puffs every 4 hours as needed for Wheezing. Active Multiple Minerals-Vitamins (CALCIUM-MAGNESIUM -ZINC-D3) TABSIndications:simental pplement Take 1 Tablet by mouth daily. Indications: supplement Active cholecalciferol (VITAMIN D3) 25 MCG (1000 UT) tabletIndications: supplement Take 1,000 Units by mouth daily. Indications: supplement Active DULoxetine (CYMBALTA) 60 MG capsuleIndications :Generalized Anxiety Disorder Take 60 mg by mouth two times a day. Indications: Generalized Anxiety Disorder Active ferrous sulfate 325 (65 Fe) MG tabletIndications: Iron Deficiency Anemia Take 325 mg by mouth daily with breakfast. Indications: Anemia From Inadequate Iron in the Body Active multivitamin with minerals tabletIndications: supplement Take 1 Tablet by mouth daily. Indications: supplement Active traZODone (DESYREL) 50 MG tabletIndications: Insomnia Take 100 mg by mouth daily at bedtime. Indications: Trouble Sleeping Active melatonin 5 MG tabletIndications: Insomnia Take 10 mg by mouth daily at bedtime. Indications: Trouble Sleeping Active sodium chloride (OCEAN) 0.65 % nasal solution Place 1 [place] into both nostrils every 2 hours as needed for Congestion. Active bacitracin-polymyx in b (POLYSPORIN) [id number] UNIT/GM ointmentIndication s:dry nose Apply topically two times a day. To nares Indications: dry nose Active tretinoin (RETIN-A) 0.025 % creamIndications:s kin damage Apply topically daily at bedtime. Indications: skin damage Active lidocaine (ASPERCREAM) 4 % patch Apply 2 Patches to skin daily. Leave on for up to 12 hours in a 24 hour period, then remove. 07/10/2019 Active Abaloparatide (TYMLOS) 3120 MCG/1.56ML SOPN Inject 80 mcg subcutaneously daily. This medication is on HOLD. 3 Pen 3 07/18/2019 Active acetaminophen (TYLENOL) 325 MG tablet Take 2 Tablets by mouth every 6 hours as needed for Pain. Maximum acetaminophen dose is 4000 mg in 24 hours 07/18/2019 Active HYDROmorphone (DILAUDID) 2 MG tablet Take 1 Tablet by mouth every 4 hours as needed for Pain. 20 Tablet 07/18/2019 Active lactobacillus (FLORANEX) PACK packetIndications: gut health Take 1 Packet by mouth three times a day with meals. Or similar probiotic Indications: gut health 07/18/2019 Active LORazepam (ATIVAN) 0.5 MG tabletIndications: Anxiety Take 1 Tablet by mouth every 6 hours as needed for Anxiety. Indications: Feeling Anxious 10 Tablet 07/18/2019 Active polyethylene glycol (MIRALAX) packet Take 1 Packet by mouth daily as needed for Constipation. 07/18/2019 Active psyllium powder (METAMUCIL) 58.12 % packetIndications: regularity Take 1 Packet by mouth daily. Indications: regularity 07/19/2019 Active senna (SENOKOT) 8.6 MG tabletIndications: Constipation Take 1 Tablet by mouth two times daily as needed for Constipation. Indications: Constipation 30 Tablet 07/18/2019 Active TYMLOS 3120 MCG/1.56ML SOPN Inject 80mcg subcutaneously once daily 3 Pen 3 06/15/2020 Active testosterone 0.2 % in aquaphor Apply to affected area qhs 30 g 3 06/28/2020 Active betamethasone dipropionate (DIPROLENE AF) 0.05 % AUGMENTED ointment Apply to affected area q am 50 g 2 06/28/2020 Active Active Problems Problem Noted Date Diagnosed Date Clostridium difficile colitis 07/16/2019 Chronic fatigue syndrome 07/07/2019 Fibromyalgia 07/07/2019 Drug dependence, in remission 07/07/2019 Hyperlipidemia 07/07/2019 Migraine without intractable migraine 07/07/2019 Temporomandibular joint disorder 07/07/2019 Plantar fascial fibromatosis 07/07/2019 Sensorineural hearing loss, bilateral 07/07/2019 S/P bone graft 07/07/2019 Overview: S/p bone grafting to a 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 Overview: LW Onset: 1970s ; Arthritis Juvenile Rheumatoid Chronic Resolved Problems Problem Noted Date Diagnosed Date Resolved Date Diarrhea 07/15/2019 07/17/2019 Immunizations Name Administration Dates Next Due Flu Vac Preserv Free (3+yrs) 02/18/2007 Influenza, Unspecified Formulation 02/22/2003 Social History Tobacco Use Types Packs/Day Years Used Date Smoking Tobacco: Former Smokeless Tobacco: Never Alcohol Use Standard Drinks/Week Comments No 0 (1 standard drink = 0.6 oz pur e alcohol) Sex and Gender Information Value Date Recorded Sex Assigned at Not on file Gender Identity Not on file Sexual Orientation Not on file Last Filed Vital Signs Vital Sign Reading Time Taken Comments Blood Pressure 121/55 07/20/2019 8:09 AM CDT Pulse 65 07/20/2019 8:09 AM CDT Temperature 36.6 ??C (97.8 ??F) 07/20/2019 8:09 AM CD T Respiratory Rate 18 07/20/2019 8:09 AM CDT Oxygen Saturation 96% 07/20/2019 8:09 AM CDT Inhaled Oxygen Concentration - - Weight 66.1 kg (145 lb 12.8 oz) 07/16/2019 9:00 PM CABLE BRAIDER Height 172.7 cm (5' 8) 07/15/2019 9:30 PM CABLE BRAIDER Body Mass Index 22.17 07/15/2019 9:30 PM CABLE BRAIDER Plan of Treatment Health Maintenance Due Date Last Done Comments Cervical Cancer Screening Due 1959 Colon Cancer Screening Plan Due 1960 Medicare Annual Wellness Visit 1960 Cholesterol 2004 Mammogram 05/09/2021 05/09/2020, 08/11, 10/27/2007, Additional history exists COVID-19 Vaccine ( season) 2023 02/21/2021, 08/09/2020, 07/19/2020 Influenza (#1) 2023 02/24/2020, 01/11, 05/21/2012, Additional history exists DTaP/Tdap/Td (5 - Tdap) 05/31/2026 05/31/19, 09/30/2005, 09/30/2005, Additional history exists HepA Aged Out 04/27/2008 No longer eligi ble based on patient's age to complete this topic Pneumococcal Aged Out 07/11/2009, 03/12, 12/10/2001 No longer eligible based on patient's age to complete this topic HIV Screening (Preventive Services) Completed 08/25/2018, 06/01/2018 Hep C Screening (Preventive Services) Completed 08/25/2018 Zoster/Shingles Completed 08/28/2020, 05/11/2020 HepB Aged Out No longer eligi ble based on patient's age to complete this topic Hib Aged Out No longer eligi ble based on patient's age to complete this topic IPV (Polio) Aged Out No longer eligi ble based on patient's age to complete this topic MCV4 Aged Out No longer eligi ble based on patient's age to complete this topic Medical Devices Implanted Type Area Ed Teacher Device Identifier Shelf Expiration Date Model / Serial / Lot Chip Canc Crouton 30cc - [id number] Implanted:Qty: 1 on 07/07/2019 by Tobias Martin MD at [facility] DEVICE Right: LEG [employer] - [employer] 06/30/2023 [id number] / [id number] / [id number] Chip Canc Crouton 30cc - [id number] Implanted:Qty: 1 on 07/07/2019 by Tobias Martin MD at [facility] DEVICE Right: LEG Medtronic - [employer] 06/30/2023 [id number] / [id number] / [id number] Procedures Procedure Name Priority Date/Time Associated Diagnosis Comments HIV 1/2 AG/AB 4TH GEN Routine 08/25/2018 11:24 AM CDT Multiple joint pain HEPATITIS C ANTIBODY, WITH REFLEX Routine 08/25/2018 11:24 AM CDT Multiple joint pain RADEX FNGR MINIMUM 2 VIEWS 11/18/1995 12:00 AM CDT Finger Injury Nos Fx Phalanx, Hand Nos-Close from Last 3 Months or Most Recently Relevant to Health Maintenance Results * HIV 1/2 Ag/Ab 4th Generation (08/25/2018 11:24 AM CDT) HIV 1/2 Antigen/Antib jorje (4th generation) Negative (Non Reactive) Negative (Non Reactive) 08/25/2018 4:34 PM CDT [facility] Comment:HIV-1 p24 Antigen an d HIV-1/HIV-2 Antibody not detected Blood Venipuncture / Unknown 08/25/2018 11:24 AM CDT 08/25/2018 11:24 AM CDT Carin Rainey MD [facility] [address] * HCAB - Hepatitis C Virus Paula with Reflex In-House (08/25/2018 11:24 AM CDT) Hepatitis C Antibody Negative (Non Reactive) Negative (Non Reactive) 08/25/2018 4:34 PM CDT [facility] Comment:Antibodies to HCV no t detected. Does not exclude the possiblity of exposure to HCV. 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
--- OUTSIDE RECORDS SUMMARY | 2023-08-18 15:11 | XMS_ITS | Continuity of Care Document ---
Author Name Unknown Address [address] [place] [address] Phone [phone] Organization [facility] Address [address] [place] [address] Assessment No assessment recorded. Plan of Treatment Reminders Order Date Submit Date Provider Last Modified By Organization Details Last Modified Time Details Appointments None recorded. Lab urinalysi s, dipstick 2023 024 [facility], [address], [place], [address], 13:07:01 Referral pelvic floor therapy referral 2023 024 [facility], [address], [place], [address], 08:14:59 Procedures None recorded. Surgeries None recorded. Imaging None recorded. Medication Orders None recorded. Patient TargetsNo targets recorded. Patient InstructionsNo instructions recorded. Reason for Referral Pelvic Floor Therapy Referra l for Urgent desire to urinate Referring Physician: Nancy Troncoso, Urology, Encounter Date: 06/17/2023 Results Created Date Observation Date Name Description Value Unit Range Abnormal Flag LastModifiedBy Organization Detail LastModifiedTime 06/17/1906/17/2023 urina lysis , dipst ick Color-Status Yellow Not Available [facility] [address], [place], [address], 06/17/2023 12:42:43 06/17/19 24 06/17/2023 urina lysis , dipst ick Clarity-Stat us Clear Not Available [facility] [address], [place], [address], 06/17/2023 12:42:43 06/17/19 24 06/17/2023 urina lysis , dipst ick Glucose-Stat us Negati ve Not Available [facility] [address], [place], [address], 06/17/2023 12:42:43 06/17/19 24 06/17/2023 urina lysis , dipst ick Bilirubin-St atus Negati ve Not Available [facility] [address], [place], [address], 06/17/2023 12:42:43 06/17/19 24 06/17/2023 urina lysis , dipst ick Ketones-Stat us Negati ve Not Available [facility] [address], [place], [address], 06/17/2023 12:42:43 06/17/19 24 06/17/2023 urina lysis , dipst ick Sp [place]-Stat us 1.020 Not Available [facility] [address], [place], [address], 06/17/2023 12:42:43 06/17/19 24 06/17/2023 urina lysis , dipst ick pH-Status 5.5 Not Available [facility] [address], [place], [address], 06/17/2023 12:42:43 06/17/19 24 06/17/2023 urina lysis , dipst ick Urobilinogen -Status 0.2 Not Available [facility] [address], [place], [address], 06/17/2023 12:42:43 06/17/19 24 06/17/2023 urina lysis , dipst ick Nitrates-Sta tus negati ve Not Available [facility] [address], [place], [address], 06/17/2023 12:42:43 06/17/19 24 06/17/2023 urina lysis , dipst ick Blood-Status Negati ve Not Available [facility] [address], [place], [address], 06/17/2023 12:42:43 06/17/19 24 06/17/2023 urina lysis , dipst ick Leuko-Status Trace Not Available [facility] [address], [place], [address], 06/17/2023 12:42:43 06/17/19 24 06/17/2023 urina lysis , dipst ick Specimen Type Voided Not Available [facility] [address], [place], [address], 06/17/2023 12:42:43 06/17/19 24 06/17/2023 urina lysis , dipst ick Performed by Nelli Al RN Not Available [facility] [address], [place], [address], 06/17/2023 12:42:43 Result Notes None recorded. Procedures Surgical History Date Name Laterality Status Provider Name and Address Organization Details Recorded Time 06/17/19 24 CystoscopyFemale completed David Rowland PA-C [address] [place] [address],[address], [place], [address], [facility] 06/17/2023 13:01:47 06/17/19 24 Bladder Scan completed Nelli silva [facility] 06/17/2023 12:47:55 Imaging Results None recorded. Procedure Notes None recorded. Medical Equipment None Reported. Allergies Allergen ID Allergen Name Allergen Category Reaction Reaction Severity Criticality Documentation Date Start Date Code Code System Note Provider Name and Address Organization Details Recorded Time 704307 auranofin medicatio n Not available Not available Not available 06/17/2023 1227 RxNorm Nelli silva [facility] 4 12:24:03 993810 cat dander environme nt Not available Not available Not available 06/17/2023 Nelli silva [facility] 4 12:24:08 812567 Gadoliniu m compound (substanc e) medicatio n Not available Not available Not available 06/17/2023 79401 5005 SNOMED Nelli silva [facility] 4 12:24:19 672439 wheat gluten extract food Not available Not available Not available 06/17/2023 96484 81 RxNorm Nelli silva [facility] 4 12:24:26 373577 gold keratinat e Not available Not available Not available Not available 06/17/2023 39194 RxNorm Nelli silva [facility] 4 12:24:36 017284 Substance with morphinan structure and opioid receptor agonist mechanism of action (substanc e) medicatio n Not available Not available Not available 06/17/2023 87741 9000 SNOMED Nelli silva [facility] 4 12:24:43 Medications Name Sig Start Date Stop Date Status Note LastModified by Organization Details LastModified Time amoxicillin 500 mg capsule active Not Available Not Available Not Available fluconazole 100 mg tablet active Not Available Not Availabl e Not Available trazodone 50 mg tablet Take 1 tablet every day by oral route. active Not Available Not Available No t Available fosfomycin tromethamine 3 gram oral packet active Not Available Not Available Not Available Lidocaine Viscous 2 % mucosal solution active Not Available Not Available Not Available fluconazole 150 mg tablet active Not Available Not Availabl e Not Available valacyclovir 1 gram tablet active Not Available Not Availabl e Not Available tretinoin 0.025 % topical cream active Not Available Not Availabl e Not Available fluconazole 200 mg tablet active Not Available Not Availabl e Not Available sumatriptan 25 mg tablet active Not Available Not Available Not Available sertraline 100 mg tablet active Not Available Not Availabl e Not Available diphenoxylate -atropine 2.5 mg-0.025 mg tablet active Not Available Not Available Not Available sulfamethoxaz ole 800 mg-trimethopr im 160 mg tablet active Not Available Not Available Not Available liothyronine 5 mcg tablet active Not Available Not Available Not Available triamcinolone acetonide 0.1 % topical cream active Not Available Not Available Not Available hydromorphone 2 mg tablet active Not Available Not Available Not Available lorazepam 0.5 mg tablet active Not Available Not Available No t Available triamcinolone acetonide 0.025 % topical cream active Not Available Not Availabl e Not Available cephalexin 500 mg capsule active Not Available Not Available Not Available erythromycin 5 mg/gram (0.5 %) eye ointment APPLY TOPICALLY TO EACH EYE AT BEDTIME DIRECTED FOR 1 MONTH* active Not Available Not Available No t Available oseltamivir 75 mg capsule active Not Available Not Availabl e Not Available neomycin-poly myxin-dexamet h 3.5 mg/mL-10,000 unit/mL-0.1% eye drops active Not Available Not Available No t Available lidocaine 5 % topical patch active Not Available Not Availabl e Not Available polymyxin B sulfate 10,000 unit-trimetho prim 1 mg/mL eye drops active Not Available Not Available No t Available hydrocortison e 2.5 % topical cream active Not Available Not Availabl e Not Available mupirocin 2 % topical ointment active Not Available Not Available Not Available clobetasol 0.05 % topical ointment active Not Available Not Available Not Available albuterol sulfate HFA 90 mcg/actuation aerosol inhaler active Not Available Not Available Not Available propranolol 20 mg tablet active Not Available Not Available Not Available ondansetron 4 mg disintegratin g tablet active Not Available Not Available Not Available fluticasone propionate 50 mcg/actuation nasal spray,suspens ion active Not Available Not Available Not Available buspirone 15 mg tablet active Not Available Not Available No t Available tobramycin 0.3 %-dexamethaso ne 0.1 % eye drops,suspens ion active Not Available Not Available Not Available Estrace 0.01% (0.1 mg/gram) vaginal cream Insert by vaginal route. active Not Available Not Available No t Available escitalopram 10 mg tablet active Not Available Not Available Not Available cyclosporine 0.05 % eye drops in a dropperette active Not Available Not Available Not Available sertraline active Not Available Not Av ailable Not Available melatonin active Not Available Not [place] ilable Not Available liothyronine active Not Available Not Available Not Available buspirone active Not Available Not [place] ilable Not Available ondansetron active Not Available Not A vailable Not Available lactobacillus acido-bifido- globulin protein 15 billion cell-170 mg cap Take by oral route. active Not Available Not Available No t Available Yuvafem 10 mcg vaginal tablet active Not Available Not Available Not Available clobetasol 0.05 % foam-emollien t combo no.65 cream, topical pack active Not Available Not Available Not Available Tyrvaya 0.03 mg/spray nasal spray active Not Available Not Available Not Available Paxlovid 300 mg (150 mg x 2)-100 mg tablets in a dose pack active Not Available Not Available No t Available Vitals Date Recorded Body height Body mass index (BMI) Body weight Provider Name and Address Organization Details Last Updated DateTime 06/17/2023 172.72 cm 20.4 kg/m2 68604.38 g GAGAN[facility]EP S[facility] 06/17/2023 12:26:06 Social History None recorded. Functional Status None recorded. Mental Status None recorded. Family History Nothing Reported. Medical History No medical history recorded. Gynecological HistoryNo gynecological history recorded. Obstetrics History GPAL:G 0 P 0 0 0 0 Past Encounters Encounter ID Performer Location Encounter Start Date Encounter Closed Date Diagnosis/Indication Diagnosis SNOMED-CT Code [id number] Nancy Troncoso MD [facility] [address] [address] 06/17/2023 11:59:35 06/18/2023 10:35:23 Urgent desire to urinate 11536299 Recurrent urinary tract infection 982691690 Vaginal dryness 55673661 Health Concerns Section Related Observation LastModified by Organization Detai ls LastModified Time None Recorded Concern Status LastModified by Organization Details LastModified Time None Recorded Payers Encounter Date Sequence Insurance Name Policy Number Policy Duval Covered Member ID Duval Member ID Guarantor Name 06/17/2023 1 [place]: [employer] Juliette Brown [id number] Juliette Brown 06/17/2023 2 [place] [id number] Juliette Brown [id number] Juliette Brown Notes Date Note Type Note Provider Name and Address Organization Details Recorded Time 06/17/2023 text/html HPI Notes: 63 YO F here to establish care for lichens sclerosis, OAB Previously followed by PF for OAB. She has tried: -Oxybutynin- minimal improvement -Myrbetriq- side effect of dry eyes -urethral dilation She notes that feels feels likes she has to void all the time. She has urgency to go the the bathroom. She has had her urine tested several times in the past couple of months, typically with mixed urogenital growth. She has been noting some vaginal burning and worse with voiding. Patient is currently prescribed estrace and clobetasol, just recently started these. She has a lot PMHx: depression, C-Diff, chronic fatigue, diverticulitis, ulcerative colitis, vaginal candidiasis, polyarticular juvenile RA, HLD UC: 04/07/22: Mitchell S E.coli >100k 02/19/23: enterobacter >100k R tp cefazolin treated with fosfomycin- then bactrim DS for 10 days 02/23/23: <50k mixed 04/06/23: 100k mixed gram positive beckie 04/09/23: <50k mixed 11/21/22 <50k mixed gram positive beckie 02/2023: Enterococcus UA: Without signs of infection PVR: 3 cc Pelvic: Vaginal dryness and atrophy, some skin changes around the vaginal introitus that could be consistent with lichen sclerosis, no POP Cysto: Normal Nancy Troncoso MD [address] [place] [address],[address], [place], [address], [facility] 06/17/2023 13:59:27 OBGyn Episode No OBEpisode recorded.
--- OUTSIDE RECORDS SUMMARY | 2023-08-18 15:11 | XMS_ITS | Encounter Summary ---
Author Name Unknown Organization [place] Address [facility]ly [facility] [address] Care Team Providers Care Sole Splitter Name Role Phone Heladio Martins MD Primary Care Provider Kelsi Glez MD Unavailable [phone] Nivia Bruno MD Primary Care Provider [phone] Encounter Details Date Type Department Care Team (Latest Contact Info) Description 03/06/2021 [facility] Treatment Plan [facility] [address] [place] [phone] Dav Tierney MD [address] [place] [address] Megan Ruiz, SHANNON Major depressive disorder, recurrent episode, severe (H) (Primary Dx) Social History Tobacco Use Types Packs/Day Years Used Date Smoking Tobacco: Never Smokeless Tobacco: Never Alcohol Use Standard Drinks/Week Comments No 0 (1 standard drink = 0.6 oz pur e alcohol) PHQ-2 Answer Date Recorded PHQ-2 Score 6 03/06/2021 Sex and Gender Information Value Date Recorded Sex Assigned at Not on file Gender Identity Not on file Sexual Orientation Not on file COVID-19 Exposure Response Date Recorded In the last month, have you been in contact with someone who was confirmed or suspected to have Coronavirus / COVID-19? No / Unsure 02/15/2021 1:08 PM CDT documented as of this encounter Plan of Treatment Not on file documented as of this encounter Visit Diagnoses Diagnosis Major depressive disorder, recurrent episode, severe (H)- Primary Major depressive disorder, recurrent episode, severe, without mention of psychotic behavior documented in this encounter Additional Health Concerns Assessment Noted Time PHQ-9 Depression Total Score: 21 021 12:28 PM CDT documented as of this encounter Care Teams Sole Splitter Relationship Specialty Start Date End Date Heladio Martins MD PCP - General Internal Medicine 03/05/16 03/21/21 Nivia Bruno MD [address] [place] [address] PCP - General 03/22/21 Kelsi Handy MD [address] [place] [address] Assigned OBGYN Provider 04/23/20 3 documented as of this encounter
--- OUTSIDE RECORDS SUMMARY | 2023-08-18 15:11 | XMS_ITS | Encounter Summary ---
Author Name Unknown Organization [facility] Address [address] [place] [address] Care Team Providers Care Portfolio Architect Name Role Phone Needs Pcp, Assignment Primary Care Provider [phone] Encounter Details Date Type Department Care Team (Late st Contact Info) Description 07/16/2019 Lab Requisition [facility] [address] [facility]. [place], [place] [id number] Lul Hunter MD [address] [place], [place] [id number] Encounter for surgical aftercare following surgery on the sense organs Social History Tobacco Use Types Packs/Day Years Used Date Smoking Tobacco: Former Smokeless Tobacco: Never Alcohol Use Standard Drinks/Week Comments No 0 (1 standard drink = 0.6 oz pur e alcohol) Sex and Gender Information Value Date Recorded Sex Assigned at Not on file Gender Identity Not on file Sexual Orientation Not on file documented as of this encounter Plan of Treatment Not on file documented as of this encounter Visit Diagnoses Diagnosis Encounter for surgical aftercare following surgery on the sense organs documented in this encounter Care Teams Portfolio Architect Relationship Specialty Start Date End Date Needs Pcp, Bertha DE PAZ [place], [place] [address] PCP - General 02/28/21 documented as of this encounter
--- OUTSIDE RECORDS SUMMARY | 2023-08-18 15:11 | XMS_ITS | Encounter Summary ---
Author Name Unknown Organization [place] Address [address] [place] [address] Care Team Providers Care Ash Conveyor Operator Name Role Phone Kelsi Handy MD Unavailable [phone] Nivia Bruno MD Primary Care Provider [phone] Encounter Details Date Type Department Care Team ([facility] st Contact Info) Description 06/13/2021 Telephone [facility] Intake [address] [place] [address] Generic, Behavioral Intake, Social History Tobacco Use Types Packs/Day Years Used Date Smoking Tobacco: Never Smokeless Tobacco: Never Alcohol Use Standard Drinks/Week Comments No 0 (1 standard drink = 0.6 oz pur e alcohol) PHQ-2 Answer Date Recorded PHQ-2 Score 2 06/13/2021 Sex and Gender Information Value Date Recorded Sex Assigned at Not on file Gender Identity Not on file Sexual Orientation Not on file documented as of this encounter Miscellaneous Notes * Telephone Encounter - Rafael Cota - 06/29/2021 12:06 PM CST ----- Message from KETTY Lynn sent at 06/29/2021 11:41 AM GREENS LABORER ----- Regarding: new start Clinic 1 on 07/05 Scheduling Request Patient Name: Juliette Brown Location of programmin+ Start Date: June Group: Clinic 1 on at 1:00 to 3:00PM Attending Provider (MD): 12 Number of visits to be scheduled: 12 Duration of Appointment in minutes: 120 min Visit Type: Zoom - [id number] Additional notes: NS LABORER * Telephone Encounter - Jen Serrano - 06/13/2021 9:38 AM CST ----- Message from SHANNON Warner sent at 06/13/2021 9:12 AM GREENS LABORER ----- Regarding: add appointment Scheduling Request Patient Name: ?? Location of programming: [facility] 55+ Start Date:06/13/21 Group ([facility]xxxx[facility] on #days of the week# at #start time to end time#): 55+ B1 M,W,F 1-4pm Provider (name of MD): Niall Number of visits to be scheduled: 1 Duration of Appointment in minutes: 180 mins Visit Type (Robert - 5692 / Zoom - 3957 / In-person or Treatment - 870) :2657-zoom Additional notes: NS LABORER documented in this encounter Plan of Treatment Not on file documented as of this encounter Visit Diagnoses Not on filedocumented in this encounter Additional Health Concerns Assessment Noted Time PHQ-9 Depression Total Score: 7 06/14/19 22 10:59 AM GREENS LABORER documented as of this encounter Care Teams Ash Conveyor Operator Relationship Specialty Start Date End Date Nivia Bruno MD [address] [place] [address] PCP - General 03/22/21 Kelsi Handy MD [address] [address] Assigned OBGYN Provider 04/23/20 3 documented as of this encounter
--- OUTSIDE RECORDS SUMMARY | 2023-08-18 15:11 | XMS_ITS | Encounter Summary ---
Author Name Unknown Organization [place] Address [facility] [place] [address] Care Team Providers Care Backhoe Operator Name Role Phone Heladio Martins MD Primary Care Provider UnaKelsi Hummel MD Unavailable [phone] Nivia Bruno MD Primary Care Provider [phone] Reason for Visit * Reason Onset Date Comments MH/CD Inpatient 04/15/2016 Encounter Details Date Type Department Care Team ([facility] st Contact Info) Description 04/15/2016 Telephone [facility] Intake [address] [place] [address] Generic, Behavioral Intake, MD MH/CD Inpatient Social History Tobacco Use Types Packs/Day Years Used Date Smoking Tobacco: Never Assessed Sex and Gender Information Value Date Recorded Sex Assigned at Not on file Gender Identity Not on file Sexual Orientation Not on file documented as of this encounter Miscellaneous Notes * Telephone Encounter - Andressa Fine - 04/15/2016 8:22 PM CST S: Dr. Clark called with report; requesting admit on pt referred in by OP therapist due to fleetingSI with thoughts to jump off of a bridge or stab self B: hx dx of depression and anxiety; per ED physician, pt denies hx of suicide attempts; pt was reportedly referred in by OP therapist due to increasing thoughts of self harm; pt states she has visions of ways to harm herself and describes the visions to be either herself jumping off of a bridge or stabbing self; pt states that she has had sleep difficulty, decreased appetite and has not been leaving the house due to increased anxiety and panic; pt has an OP therapist, but states the therapy has not been helping recently due to her increase in symptoms; pt denies use of substances A: pt currently in ED, awaiting labs for medical clearance; per ED physician, pt has hx of hypothyroidism, rheumatoid arthritis and issues with her joints; voluntary/cooperative-pt agrees to sign self in; utox negative for all substances R: intake awaiting a call back from Dr. Clark/ED with medical clearance Per Dr. Clark, pt has been medically cleared for admission (Dr. Clark will write orders, as it is after 10pm); unit notified ICATION DESIGNER documented in this encounter Plan of Treatment Not on file documented as of this encounter Visit Diagnoses Not on filedocumented in this encounter Care Teams Backhoe Operator Relationship Specialty Start Date End Date Heladio Martins MD PCP - General Internal Medicine 03/05/16 03/21/21 Nivia Bruno MD [address] [place] [address] PCP - General 03/22/21 Kelsi Handy MD [address] [place] [address] Assigned OBGYN Provider 04/23/20 3 documented as of this encounter
--- OUTSIDE RECORDS SUMMARY | 2023-08-18 15:11 | XMS_ITS | Referral Summary ---
Author Name Unknown Organization [facility] Address [address] [place] [address] Care Team Providers Care Artificial Pearl Maker Name Role Phone Nivia Bruno MD Primary Care Provider [phone] Allergies Active Allergy Reactions Criticality Noted Date Comments Gold Anaphylaxis High 04/15/2016 As treatment for RA Medications Medication Sig Dispensed Refills Start Date End Date Status cholecalciferol (VITAMIN D-[address]) 1000 UNITS TABS Take 1,000 Units by mouth 0 06/10/2011 Active lidocaine (LIDODERM) 5 % Patch 1 patch 0 10/17/2015 Active melatonin 3 MG tablet Take 3 mg by mouth 0 Active Multiple Vitamin (MULTI-VITAMINS) TABS Take 1 tablet by mouth 0 07/22/2014 Active Quentin-3 1000 MG CAPS 0 04/02/2016 Acti ve Saline (SODIUM CHLORIDE) 0.65 % SOLN Morris 1 spray in nostril 0 01/28/2015 Active traZODone (DESYREL) 50 MG tablet Take 50 mg by mouth 0 04/02/2016 Active clobetasol (TEMOVATE) 0.05 % external ointmentIndications: Lichen sclerosus Apply a thin layer to affected area twice a week. 60 g 1 02/15/2021 Active estradiol (ESTRACE VAGINAL) 0.1 MG/GM vaginal creamIndications:Atr ophic vaginitis 1 gm pv nightly at bedtime for 2 weeks, then twice a week at bedtime for maintenance. 42.5 g 6 02/15/2021 Active busPIRone (BUSPAR) 10 MG tablet Take 10 mg by mouth 2 times daily 0 07/05/2020 Active 5-Hydroxytryptophan (5-HTP) 100 MG CAPS Take 100 mg by mouth 2 times daily 0 Active sertraline (ZOLOFT) 50 MG tablet Take 50 mg by mouth daily 0 Active LORazepam (ATIVAN) 0.5 MG tabletIndications:Se pelletier episode of recurrent major depressive disorder, without psychotic features (H),Anxiety Take 1 tablet (0.5 mg) by mouth 2 times daily as needed for anxiety 30 tablet 1 05/14/2021 Active melatonin 5 MG tablet Take 10 mg by mouth 0 Active Active Problems Problem Noted Date Diagnosed Date Major depressive disorder, recurrent episode, se liyah 03/21/2021 Chronic fatigue syndrome 09/07/2016 Drug dependence, in remission 09/07/2016 Severe episode of recurrent major depressive disorder, without psychotic features 09/07/2016 Migraine without status migrainosus, not intract able 09/07/2016 Osteoarthritis 09/07/2016 Plantar fascial fibromatosis 09/07/2016 Sensorineural hearing loss (SNHL) of both ears 0 09/07/2016 Temporomandibular joint disorder 09/07/2016 Generalized anxiety disorder 06/12/2016 Hearing loss 06/12/2016 Depression 04/16/2016 Degeneration of intervertebral disc of lumbosacr al region 05/26/2014 Lichen sclerosus et atrophicus of the vulva 02/09 Multiple pulmonary nodules 01/18/2013 Conjunctivitis 06/06/2011 Leukopenia 06/30/2009 Vitamin D deficiency 06/30/2009 Candidiasis of vagina 03/07/2009 Hypothyroidism 12/01/2008 Major depressive disorder with single episode Muscle pain 02/18/2007 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 Overview: Overview: LW Onset: 1970s Social History Tobacco Use Types Packs/Day Years Used Date Smoking Tobacco: Never Smokeless Tobacco: Never Tobacco Cessation:Counseling Given: No Alcohol Use Standard Drinks/Week Comments No 0 (1 standard drink = 0.6 oz pur e alcohol) PHQ-2 Answer Date Recorded PHQ-2 Score 2 06/13/2021 Adolescent Education Answer Date Record ed Getting School Help Needed Not on file 02/02 Sex and Gender Information Value Date Recorded Sex Assigned at Not on file Gender Identity Not on file Sexual Orientation Not on file Last Filed Vital Signs Vital Sign Reading Time Taken Comments Blood Pressure 122/64 02/15/2021 1:17 PM CDT Pulse 69 09/07/2016 3:44 PM CDT Temperature 36.8 ??C (98.2 ??F) 02/15/2021 1:17 PM CD T Respiratory Rate 16 09/07/2016 3:44 PM CDT Oxygen Saturation 99% 09/07/2016 3:44 PM CDT Inhaled Oxygen Concentration - - Weight 64.4 kg (142 lb) 02/15/2021 1:17 PM CDT Height 175.3 cm (5' 9) 02/15/2021 1:17 PM CDT Body Mass Index 20.97 02/15/2021 1:17 PM CDT Plan of Treatment Not on file Advance Directives For more information, please contact: [phone] Latest Code Status on File Code Status Date Activated Date Inactivated Comments Full Code 04/16/2016 1:58 AM 04/22/2016 3:55 PM Care Teams Artificial Pearl Maker Relationship Specialty Start Date End Date Nivia Bruno MD PCP - General 03/22/21
--- OUTSIDE RECORDS SUMMARY | 2023-08-18 15:11 | XMS_ITS | Clinical Summary ---
Author Name Unknown Organization [facility] Address [place], [place] [address] Care Team Providers Care Well Cleaner Name Role Phone Nivia Bruno MD Primary Care Provider Lisa Thakur RN Unavailable [phone] Judie Carreno PharmD Unavailable [phone] Allergies Active Allergy Reactions Criticality Noted Date Comments Auranofin *Unknown High 12/10/1999 PN: LW Reaction: ??gold shots-hives Other reaction(s): hives Cat Dander *Unknown - Childhood Rxn 12/10/1999 Gluten sensitive not, intolerant. Gadolinium-Containing Contrast Media *Unknown 12/10/1999 PN: LW CM1: CONTRAST- nka Reaction : Gluten GI Upset 10/22/2019 Gold Keratinate Anaphylaxis High 04/15/2016 As treatment for RA Gold Sodium Thiomalate Anaphylaxis High 06/28/2011 gold shot Lactose GI Upset High 12/10/1999 Gluten sensitive not, intolerant. Other reaction(s): GI upset Opioids - Morphine Analogues Anaphylaxis High 12/10/1999 PN: LW Other1: -nka Allergy to Gold Shots Unlisted Allergen (Include Detail In Comments) Anaphylaxis High Allergy to Gold Shots Tramadol *Unknown 03/26/2022 Medications Medication Sig Dispensed Refills Start Date End Date Status albuterol HFA 90 mcg/actuation inhaler Inhale 2 Puffs by mouth every 4 hours if needed. 0 07/29/19 20 Active clobetasol 0.05% (TEMOVATE 0.05% OINTMENT) 0.05 % ointmentIndication s:Lichen sclerosus Apply topically to affected area(s) two times daily. As needed to lichen sclerosus in vaginal area. 120 g 1 06/26/19 23 Active lidocaine 5 % topical patchIndications:L umbar radiculopathy Apply on dry, clean, hairless skin. Apply 1 patch to painful area of skin for up to to 12 hours within 24 hour period. 30 Patch 1 02/12/20 23 Active LORazepam (ATIVAN) 0.5 mg tabIndications:KATY (generalized anxiety disorder) Take 1 Tablet (0.5 mg) by mouth 2 times daily if needed for Anxiety. 90 day supply provided, will not fill early. 180 Tablet 1 04/11/20 23 Active valACYclovir (VALTREX) 1 gram tabletIndications: Genital herpes simplex, unspecified site Take 1 Tablet (1 g) by mouth three times daily. Tid X 7 Days 21 Tablet 04/17/20 23 Active HYDROmorphone (DILAUDID) 2 mg tabletIndications: Acute postoperative pain Take 0.5 Tablets (1 mg) by mouth every 6 hours if needed for Pain. 12 Tablet 05/15/19 24 Active hydrocortisone 2.5% creamIndications:H emorrhoids, external Apply topically to affected area(s) two times daily. 30 g 05/29/19 24 Active acetaminophen SR (Tylenol Arthritis Pain) 650 mg Extended-Release tabletIndications: Chronic polyarticular juvenile rheumatoid arthritis (HC) Take 1 Tablet (650 mg) by mouth every 8 hours. Max acetaminophen dose: 4000mg in 24 hrs. 270 Tablet 3 05/29/19 24 Active Additional Information Patient taking differently:650 mg Oral Q 8H,Max acetaminophen dose: 4000mg in 24 hrs. 1 in morning and 1 at night, Reported on 06/25/2023 naloxone (Narcan) 4 mg/actuation nasal sprayIndications:A t risk for injury due to substance overdose Inhale 1 [place] into affected nostril(s) each time if needed for Patient Diff To Arouse or Resp Rate < 8 / min. Additional doses may be given every 2 to 3 minutes until emergency medical assistance arrives. 2 Each 05/29/19 24 Active tobramycin-dexAMET Hasone (TOBRADEX) 0.3%-0.1% opthalmic suspensionIndicati ons:Myokymia Place 1 Drop into both eyes four times daily. 05/29/19 24 Active estradioL (VAGIFEM) 10 mcg tab vaginal tabletIndications: Vaginal candidiasis Insert 1 Tablet (10 mcg) into the vagina every Friday and . 05/29/19 24 Active progesterone micronized (PROMETRIUM) 100 mg capsuleIndications :Vaginal candidiasis Take 1 Capsule (100 mg) by mouth at bedtime. 05/29/19 24 Active Shower ChairIndications:C hronic polyarticular juvenile rheumatoid arthritis (HC) For home use. 1 Each 06/04/19 24 Active escitalopram oxalate (LEXAPRO) 20 mg tabletIndications: KATY (generalized anxiety disorder),Severe episode of recurrent major depressive disorder, without psychotic features (HC) Take 1 Tablet (20 mg) by mouth every morning. 90 Tablet 06/24/19 24 Active medication order composerIndication s:Fibromyalgia [facility] Calcium Citrate, 250 mg 1x/day Metagenics, Magnesium L-Threonate, 1-2x/day Natural Factor, Activated Charcoal, PRN Nik, NAC, 500 mg 2x/day Nik Boswelia Phytosome, 350 mg 1-2x/day Estefania, Reservatrol 150 mg, 3x/day Orthomollecular, Fiber Plus Capsules, 3-4x/week Pure Encapsulations, Probio Mood, 1 at bedtime Orthomolecular Ortho biotic - daytime Theralac Pro (blend of lacto / bifido probiotic) Pure Encaps, PureGenomics Multivitamin, 1x/day Pure Encaps, Circumasorb, 2x/day Vital Nutrienets, Melatonin 10 mg, 1 at bedtime Vitamin D w/ k2 5000 IUs daily Quicksilver, Liposomal NANNETTE, PRN Dos Bio, Anxious, PRN (homeopathic remedy) Enzymedica, Apple Cider Vinegar - temporarily ran out [place] 3 fatty acids (brand unknown) Body Balance BodyBio Enzymedica Digest Gold - 1 capsule prior to meals Nik NAC - 1 capsule twice a day 06/25/19 24 Active liothyronine (CYTOMEL) 5 mcg tabletIndications: Hypothyroidism, unspecified type Take 1 tablet (5 mcg) by mouth two times daily. 180 Tablet 1 07/09/19 24 Active rosuvastatin (CRESTOR) 10 mg tabletIndications: Hyperlipidemia, unspecified hyperlipidemia type Take 1 Tablet (10 mg) by mouth at bedtime. 90 Tablet 3 07/22/19 24 Active busPIRone (BUSPAR) 15 mg tabletIndications: KATY (generalized anxiety disorder) Take 1.3333 Tablets (20 mg) by mouth two times daily. 241 Tablet 1 07/29/19 24 Active rOPINIRole (REQUIP) 0.25 mg tabletIndications: Restless leg syndrome Take 0.25mg by mouth 2-3 hours before bedtime. 30 Tablet 08/06/19 24 Active traZODone (DESYREL) 50 mg tabletIndications: Primary insomnia TAKE 1 TO 2 TABLETS (50-100 MG) BY MOUTH AT BEDTIME NEEDED FOR SLEEP 180 Tablet 08/11/19 24 Active traZODone (DESYREL) 50 mg tabletIndications: Primary insomnia Take 1-2 Tablets (50-100 mg) by mouth at bedtime if needed for Sleep. 180 Tablet 1 07/04/19 23 024 Discontinued busPIRone (BUSPAR) 15 mg tabletIndications: KATY (generalized anxiety disorder) Take 1 Tablet (15 mg) by mouth two times daily. 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 difficile colitis 07/21/2019 Femur fracture, right 07/21/2019 Sarcoidosis, lung 06/01/2019 Closed supracondylar fracture of right femur Pulmonary nodules 05/23/2017 Overview: On [facility] at [facility] . Recommend follow up. Stable on chest CT 05/2019 Degeneration of lumbar or lumbosacral interverte bral disc 05/26/2014 Lichen sclerosus et atrophicus of the vulva 02/09 Vitamin D deficiency 06/30/2009 Vaginal candidiasis 03/07/2009 Diverticulitis of Colon 03/07/2009 Unspecified hypothyroidism 12/01/2008 Migraine NOS/not intrcbl Polyarticular juvenile rheum atoid arthritis, chronic or unspecified Osteoarth NOS-unspec Major depressive disorder, recurrent episode, mo derate Sensorineural Hearing Loss, Bilateral Temporomandibular joint disorders, unspecified Chronic fatigue syndrome Other and unspecified hyperlipidemia Plantar fascial fibromatosis KATY (generalized anxiety disorder) Severe episode of recurrent major depressive disorder, without psychotic features Resolved Problems Problem Noted Date Diagnosed Date Resolved Date Controlled substance agreement signed 10/11/2016 04/22/2022 Overview: Signed 04/23/16 Dr. 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 3 Dysthymic disorder 11/26/2007 6 Unspecified drug dependence, in remission 01/25/2022 Encounters Date Type Department Care Team Description 08/15/2023 2:00 PM CDT Procedure Only [facility] [address] [place] [address] Tyler Parson L Ac Acupuncture 08/15/2023 Telephone [facility] [address] [place] [address] Nivia Bruno MD LETTER REQUEST (Massage ) 08/15/2023 Travel 08/15/2023 Telephone [facility] [address] [address] Norberto Pretty MD Referral (For MRA neck and MRI for Head) 08/14/2023 Patient Outreach [facility] [address] [place] [address] Judie Carreno, Zoraida Pharmacist Medication Management (Statin reaction) 08/14/2023 Telephone [facility] [place] [facility] [address] [place] [address] Norberto Pretty MD Medication Management (gadolinium/) 08/14/2023 Telephone [facility] [address] [place] [address] Regan Urias MD Questions (Gadolinium Allergy) 08/12/2023 1:00 PM CDT Phone Office Visit [facility] [address] [place] [phone] Keiko Downs, [facility] Individual Therapy; Phone Visit 08/12/2023 Orders Only [address] [address] Nivia Bruno MD Outside Order (Ordered by Booker Jewell ) 08/12/2023 Patient Outreach [facility] Care Management - Advanced Care Team [address] [place] [address] Lisa Thakur, leather tacker Management (Care Coordination) 08/12/2023 Travel 08/11/2023 Telephone [facility] [address] [place] [address] Freda Serrano MD Medication Management 08/11/[address] [address] Freda Serrano MD Refill Request (Trazodone) 08/08/2023 1:30 PM CDT Procedure Only [address] [address] Tyler Parson L Ac Acupuncture 08/08/2023 Travel 08/06/2023 11:30 AM CDT Pharmacist Medication Management [facility] [address] [place] [address] Judie Carreno PharmD Pharmacist Medication Management (CMR follow-up - ACT patient - drowsiness) 08/06/2023 Travel 08/05/2023 2:00 PM CDT Patient Outreach [facility] Care Management - Advanced Care Team [address] [place] [address] Lisa Thakur RN Complex Care Management (Follow up Outreach) 08/01/2023 3:20 PM CDT Ancillary Procedure [facility] [address] [facility] [place] [address] 08/01/2023 2:00 PM CDT Procedure Only [facility] [address] [facility] [place] [address] Tyler Parson L Ac Acupuncture 08/01/2023 Travel 07/30/2023 1:00 PM CDT Office Visit [facility] [place] [facility] [address] [place] [address] Norberto Pretty MD Consult (Facial twitching Ref: Dr. Bruno /Labs 05/16/23) 07/30/2023 Travel 07/29/2023 11:30 AM CDT Phone Office Visit [facility] [address] [facility] [place] [phone] Keiko Downs LICSW Individual Therapy; Phone Visit 07/29/2023 10:15 AM CDT Phone Office Visit [address] [place] [address] Freda Serrano MD Telehealth; Medication Management 07/29/2023 Telephone [facility] [address] [facility] [place] [address] Freda Serrano MD Error-please disregard 07/29/2023 Travel 07/25/2023 1:30 PM CDT Procedure [place] [address] [place] [address] Tyler Parson L Ac Acupuncture 07/25/2023 Travel 07/22/[address] [place] [phone] Keiko Downs LICSW Questions (Pt looking to speak with Provider directly.) 07/22/[address] [place] [address] Nivia Bruno MD Error-please disregard 07/22/2023 Travel 07/18/2023 2:00 PM BENCH LATHE OPERATOR Procedure Only [facility] [address] [facility] [place] [address] Tyler Parson L Ac Acupuncture 07/18/2023 Travel 07/17/2023 2:00 PM BENCH LATHE OPERATOR Patient Outreach [facility] Care Management - Advanced Care Team [facility] [place] [address] Lisa Thakur leather tacker Management (Follow up Outreach) 07/17/2023 Telephone [facility] [address] [facility] [place] [address] Nivia Bruno MD Medication Management 07/15/2023 1:00 PM BENCH LATHE OPERATOR Phone Office Visit [facility] [address] [facility] [place] [address] Keiko Downs AUTOMATIC CAR WASH ATTENDANT Individual Therapy; Phone Visit 07/15/2023 Travel 07/11/2023 1:00 PM BENCH LATHE OPERATOR Procedure Only [facility] [address] [place] [address] Tyler Parson L Ac Acupuncture 07/11/2023 Travel 07/09/2023 Orders Only [facility] [address] [facility] [place] [address] Jyoti Sellers PA <No scans attached> 07/08/2023 1:00 PM BENCH LATHE OPERATOR Phone Office Visit [facility] [address] [place] [address] Keiko Downs [employer] W[employer] ATTENDANT Individual Therapy; Phone Visit 07/08/2023 11:45 AM BENCH LATHE OPERATOR Orders Only [facility] [address] [facility] [place] [address] Lab, [facility] 07/08/2023 10:25 AM BENCH LATHE OPERATOR Office Visit [facility] [address] [facility] [place] [address] Nivia Bruno MD Eye Problem (twitching) 07/08/2023 Travel 07/04/2023 2:30 PM BENCH LATHE OPERATOR Patient Outreach [facility] Care Management - Advanced Care Team [address] [place] [address] Lisa Thakur, leather tacker Management (Follow up Outreach) 07/02/2023 Telephone [facility] [address] [place] [address] Nivia Bruno MD Questions (appointment ) 07/02/2023 Telephone [facility] [address] [place] [address] Nivia Bruno MD Lab (Orders for complete metabolic panel) 07/01/2023 11:15 AM BENCH LATHE OPERATOR Phone Office Visit [facility] [address] [place] [address] Keiko Downs, [facility] Individual Therapy; Phone Visit 07/01/2023 Telephone [facility] [address] [place] [address] Nivia Bruno MD RETURNING CALL (UNABLE TO REACH CLINICAL STAFF) 07/01/2023 Travel 06/27/2023 3:00 PM BENCH LATHE OPERATOR Pharmacist Medication Management [facility] [address] [place] [address] Judie Carreno PharmD Pharmacist Medication Management (CMR follow-up - ACT patient - medication questions) 06/27/2023 1:30 PM BENCH LATHE OPERATOR Procedure Only [facility] [address] [place] [address] Tyler Parson L Ac Acupuncture 06/27/2023 Travel 06/26/2023 1:30 PM BENCH LATHE OPERATOR Patient Outreach [facility] Care Management - Advanced Care Team [address] [place] [address] Tosha Mcguire LSW Complex Care Management (SW f/u) 06/25/2023 11:00 AM BENCH LATHE OPERATOR Office Visit [facility] [address] [place] [address] Jyoti Sellers PA Follow Up 06/25/2023 Travel 06/24/2023 11:15 AM BENCH LATHE OPERATOR Phone Office Visit [facility] [address] [place] [address] Keiko Downs, [facility] Individual Therapy; Phone Visit 06/24/2023 10:15 AM BENCH LATHE OPERATOR Phone Office Visit [facility] [address] [place] [address] Freda Serrano MD Medication Management; Telehealth 06/24/2023 Travel 06/23/2023 Refill [facility] [address] [place] [address] Freda Serrano MD Refill Request (busPIRone (BUSPAR) 15 mg tablet) 06/19/2023 1:30 PM BENCH LATHE OPERATOR Patient Outreach [facility] Care Management - Advanced Care Team [address] [place] [address] Lisa Thakur, leather tacker Management (Follow Up Outreach) 06/18/2023 Patient Outreach [facility] [address] [place] [address] Judie Carreno, Zoraida Pharmacist Medication Management (Patient call - unknown reason) 06/18/[address] [address] Nivia Bruno MD Refill Request (LIOTHYRONINE SODIUM 5MCG TABS) 06/14/[address] [address] Nivia Bruno MD Appointment Request 06/13/2023 1:30 PM BENCH LATHE OPERATOR Pharmacist Medication Management [address] [address] Judie Carreno PharmD Pharmacist Medication Management (CMR follow-up - ACT patient - pain/MH) 06/13/2023 Travel 06/12/2023 1:30 PM BENCH LATHE OPERATOR Patient Outreach [facility] Care Management - Advanced Care Team [address] [place] [phone] Tosha Mcguire LSW Complex Care Management (SW f/u) 06/11/2023 Telephone [facility] [address] [place] [address] Facundo Mijares MD Questions (COVID-19 shot today?) 06/10/2023 11:15 AM BENCH LATHE OPERATOR Phone Office Visit [facility] [address] [place] [address] Keiko Downs, [facility] Individual Therapy; Phone Visit 06/10/2023 Travel 06/09/2023 Telephone [facility] [address] [place] [address] Nivia Bruno MD Results 06/06/2023 2:00 PM BENCH LATHE OPERATOR Procedure Only [facility] [address] [place] [address] Tyler Parson L Ac 06/06/2023 1:10 PM BENCH LATHE OPERATOR Office Visit [address] [address] Nivia Bruno MD Follow Up (Facial twitching - continues x1 month) 06/06/2023 Travel 06/02/2023 1:00 PM BENCH LATHE OPERATOR Patient Outreach [facility] Care [facility] - Advanced Care Team [address] [place] [address] Tosha Mcguire LSW Complex Care Management (SW f/u) 05/30/2023 9:00 AM BENCH LATHE OPERATOR Procedure Only [facility] [address] [place] [address] Facundo Mijares MD Procedure (Ultrasound guided left elbow in... 05/30/2023 Travel 05/28/2023 2:00 PM BENCH LATHE OPERATOR Pharmacist Medication Management [facility] [address] [place] [address] Judie Carreno, Zoraida Pharmacist Medication Management (CMR initial - ACT patient) 05/28/2023 Patient Outreach [facility] Care [facility] - Advanced Care Team [address] [place] [address] Lisa Thakur, leather tacker Management (Care Coordination) 05/27/2023 11:15 AM BENCH LATHE OPERATOR Phone Office Visit [facility] [address] [place] [phone] Keiko Downs [facility] Individual Therapy; Phone Visit 05/27/2023 Telephone [facility] [place] [facility] [address] [facility] [place] [address] Norberto Pretty MD Referral 05/27/2023 Travel 05/26/2023 Telephone [facility] [address] [place] [address] Nivia Bruno MD Letter 05/22/2023 Patient Outreach [facility] Care Management - Advanced Care Team [facility] [place], [place] [phone] Lisa Thakur leather tacker Management (Engagement Outreach) 05/20/2023 11:15 AM BENCH LATHE OPERATOR Phone Office Visit [facility] [address] [place] [phone] Keiko Downs [facility] Individual Therapy; Phone Visit 05/20/2023 Travel from Last 3 Months Immunizations Name Administration Dates Next Due COVID-19 vaccine (Pfizer-Bio NTech 30mcg/0.3mL) 12YO+ TOMER-SUCROSE PF MDV 08/21/2021 COVID-19 vaccine (Pfizer-Bio NTech 30mcg/0.3mL) PFMDV 08/09/2020,07/19/2020 DTaP 09/30/2005 Hepatitis A (Adult) 04/27/2008 Hepatitis B (Adult) 03/03/2002,08/11/2001,2001 Influenza Virus, Unspecified 02/18/2007,02/23/20 03 Influenza, IIV3 (Age 6-35 mos) 02/07/2014,2010 Influenza, IIV3 (Age >=3 years) 05/21/19 13,04/28/2010,01/30/2009,2007,09/30/2005,03/11/2005,02/23/2004 Influenza, IIV4 03/16/2022,03/27/2021,02/24/2020 MMR 09/24/1999 Pneumococcal Poly,23-Valent (Pneumovax) 03/25/2017,07/11/2009,03/25/2007,2001 Tdap 05/31/2016,09/30/2005 Tuberculin (PPD) 12/16/2008 Typhoid (injectable) 04/27/2008 Zoster (Shingrix-RZV, recombinant) 08/28/2020, Family History Medical History Relation Name Comments Good Health Brother 6 Good Health Brother 7 Hyperlipidemia Father Hypertension Father Cancer-breast Maternal Aunt Hyperlipidemia Mother Hypertension Mother Cancer-breast Paternal Aunt Seizures Sister 4 Good Health Sister 5 Anesthesia Malignant Hyperthermia No Family History Blood Disease No Family History Cancer-ovarian No Family History Relation Name Status Comments Brother 1 Alive Brother 2 Alive Brother 3 Alive Brother 4 Alive Brother 5 (Age 26) suicide Brother 6 Brother 7 Father Alive Maternal Aunt Mother Alive Paternal Aunt Sister 1 Alive Sister 2 Alive Sister 3 Alive Sister 4 Sister 5 Social History Tobacco Use Types Packs/Day Years Used Date Smoking Tobacco: Never Smokeless Tobacco: Never Tobacco Cessation:Counseling Given: Yes Alcohol Use Standard Drinks/Week Comments No 0 (1 standard drink = 0.6 oz pur e alcohol) hx chemical dependency PHQ-2 Answer Date Recorded PHQ-2 TOTAL SCORE 5 07/29/2023 Social Connections Answer Date Recorded Frequency of Communication with Friends and Fami ly 4 01/27/2023 Financial Resource Strain Answer Date R ecorded Difficulty of Paying Living Expenses 3 01/27/2023 Difficulty of Paying Living Expenses Not on file 01/27/2023 Food Insecurity Answer Date Recorded Worried About Running Out of Food in the Last Ye ar 2 01/27/2023 Transportation Needs Answer Date Record ed Lack of Transportation (Medical) 1 01/27/2023 Housing Stability Answer Date Recorded Unable to Pay for Housing in the Last Year 1 01/27/2023 Sex and Gender Information Value Date Recorded Sex Assigned at Not on file Gender Identity Not on file Sexual Orientation Not on file Obstetrics History Para Term AB IAB SAB Ectopic Multiple Livin g Live Births 2 0 Date Outcome GA Total Labor Labor/2nd/3rd Weight Sex Delivery Anes PTL Venita A1 A5 Name Cl in Last Filed Vital Signs Vital Sign Reading Time Taken Comments Blood Pressure 107/72 07/30/2023 1:06 PM CDT Pulse 71 07/30/2023 1:06 PM CDT Temperature 36.8 ??C (98.2 ??F) 05/30/2023 9:06 AM CS T Respiratory Rate 16 04/01/2022 3:21 PM BENCH LATHE OPERATOR Oxygen Saturation 98% 07/30/2023 1:06 PM CDT Inhaled Oxygen Concentration - - Weight 70.1 kg (154 lb 8 oz) 07/30/2023 1:06 PM CDT Height 174 cm (5' 8.5) 04/14/2023 2:10 PM BENCH LATHE OPERATOR Body Mass Index 23.15 04/14/2023 2:10 PM BENCH LATHE OPERATOR Plan of Treatment Upcoming Encounters Date Type Department Care Team (Late st Contact Info) Description 08/19/2023 1:00 PM CDT Phone Office Visit [facility] [address] [place] [phone] Keiko Downs LICSW [address] [place] [address] 08/20/2023 1:00 PM CDT Pharmacist Medication Management [address] [address] Judie Carreno, PharmD [address] [place] [address] 08/21/2023 3:40 PM CDT Office Visit [address] [address] Nivia Bruno MD [address] [place] [address] 08/22/2023 2:00 PM CDT Procedure Only [facility] [address] [place] [address] Tyler Parson L Ac [address] [place] [address] 08/27/2023 1:00 PM CDT Office Visit [facility] [address] [place] [address] Jyoti Sellers PA [address] [place] [address] 08/28/2023 3:00 PM CDT Patient Outreach [facility] Care Management - Advanced Care Team [address] [place] [address] Lisa Thakur, RN [address] [place] [address] 08/29/2023 2:00 PM CDT Procedure Only [facility] [address] [place] [address] yTler Parson L Ac [address] [place] [address] 09/02/2023 1:00 PM CDT Phone Office Visit [facility] [address] [place] [phone] Keiko Downs [facility] [address] [place] [address] 09/09/2023 1:00 PM CDT Phone Office Visit [facility] [address] [place] [phone] Keiko Downs [facility] [address] [place] [address] 09/15/2023 12:45 PM CDT Telemedicine [facility] [address] [place] [address] Freda Serrano MD [address] [place] [address] 09/16/2023 1:00 PM CDT Phone Office Visit [facility] [address] [facility] [place] [address] Keiko Downs LICSW [address] [place] [address] 09/16/2023 3:40 PM CDT Office Visit [facility] [place] [facility] [address] [place] [address] Norberto Pretty MD [address] [place] [address] 09/23/2023 1:00 PM CDT Phone Office Visit [facility] [address] [place] [address] Keiko Downs LICSW [address] [place] [address] 09/30/2023 11:30 AM CDT Phone Office Visit [facility] [address] [place] [address] Keiko Downs LICSW [address] [place] [address] 10/07/2023 1:00 PM CDT Phone Office Visit [facility] [address] [place] [address] Keiko Downs LICSW [address] [place] [address] 10/14/2023 1:00 PM CDT Phone Office Visit [facility] [address] [place] [phone] Keiko Downs LICSW [address] [place] [address] 10/21/2023 1:00 PM CDT Phone Office Visit [facility] [address] [facility] [place] [phone] Keiko Downs [employer]OMATIC CAR WASH ATTENDANT [address] [facility] [place] [address] 10/22/2023 1:00 PM CDT Office Visit [facility] [address] [place] [address] Jyoti Sellers PA [address] [place] [address] 10/28/2023 11:30 AM CDT Phone Office Visit [facility] [address] [facility] [place] [phone] Keiko Downs AUTOMATIC CAR WASH ATTENDANT [address] [place] [address] 11/04/2023 1:00 PM CDT Phone Office Visit [facility] [address] [facility] [place] [address] Keiko Downs [facility] [address] [place] [address] 11/11/2023 1:00 PM CDT Phone Office Visit [facility] [address] [place] [address] Keiko Downs AUTOMATIC CAR WASH ATTENDANT [address] [place] [address] 11/18/2023 1:00 PM CDT Phone Office Visit [facility] [address] [place] [address] Keiko Downs LICSW [address] [place] [address] 11/25/2023 11:30 AM CDT Phone Office Visit [facility] [address] [facility] [place] [phone] Keiko Downs [facility] [address] [facility] [place] [address] 12/02/2023 1:00 PM CDT Phone Office Visit [facility] [address] [place] [phone] Keiko Downs [facility] [address] [place] [address] 12/03/2023 1:00 PM CDT Office Visit [facility] [address] [place] [address] Jyoti Sellers PA [address] [place] [address] 12/09/2023 1:00 PM CDT Phone Office Visit [facility] [address] [place] [phone] Keiko Downs [facility] [address] [place] [address] Health Maintenance Due Date Last Done Comments Influenza for age 50-64 01/11/2024 03/16/20, 03/27/2021, 02/24/2020, Additional history exists BMI (ht and wt on same day) for age 18+ 04/14/2024 04/14/2023, 06/06/2022, 03/26/2022, Additional history exists Depression screening for age 12+ 07/31/2024 08/01/2023, 07/30/2023, 07/29/2023, Additional history exists Mammogram for age 45-75 07/31/2024 08/01/19, 05/13/2022, 05/10/2021, Additional history exists Pap test for age 21-65 10/04/2025 3, 10/04/2022, 09/30/2017, Additional history exists Tetanus booster 05/31/2026 05/31/2016, 09/30/2005 Lipids for age 45-75 07/08/2028 07/08/2023, 09/04/2021, 02/24/2020, Additional history exists Colonoscopy through age 75 01/29/203201/28, 08/12/2018, 08/12/2018, Additional history exists Tdap Completed 05/31/2016, 09/30/2005 Pneumococcal series for age 6-64 Aged Out 03/25/2017, 07/11/2009, 03/25/2007, Additional history exists No longer eligible based on patient's age to complete this topic Hepatitis C screening for age 18-79 Completed 09/30/2017, 04/02/2016 HIV for age 15-65 Completed 06/01/2018, , 08/28/2015, Additional history exists Zoster (shingles) series for age 50+ Completed 08/28/2020, 05/11/2020 COVID-19 vaccine series Completed 06/11/19 24, 08/21/2021, 02/21/2021, Additional history exists Procedures Procedure Name Priority Date/Time Associated Diagnosis Comments ACUPUNCTURE PLAN OF CARE Routine 08/15/2023 2:54 PM CDT Other low back pain ACUPUNCTURE PLAN OF CARE Routine 08/11/2023 2:54 PM CDT Other low back pain XR MAMMO EVA BILAT SCREEN Routine 08/01/2023 3:29 PM CDT Visit for screening mammogram ACUPUNCTURE PLAN OF CARE Routine 08/01/2023 3:22 PM CDT Other low back pain ACUPUNCTURE PLAN OF CARE Routine 07/25/2023 3:29 PM CDT Other low back pain ACUPUNCTURE PLAN OF CARE Routine 07/18/2023 2:32 PM BENCH LATHE OPERATOR Other low back pain ACUPUNCTURE PLAN OF CARE Routine 07/11/2023 3:12 PM BENCH LATHE OPERATOR Other low back pain LIPID PANEL W REFLEX MEASURED LDL Routine 07/08/2023 12:07 PM BENCH LATHE OPERATOR Hyperlipidemia, unspecified hyperlipidemia type COMP METABOLIC PANEL Routine 07/08/2023 12:07 PM BENCH LATHE OPERATOR Facial twitching TSH Routine 07/08/2023 12:07 PM BENCH LATHE OPERATOR History of hypothyroidism T4,FREE Routine 07/08/2023 12:07 PM BENCH LATHE OPERATOR History of hypothyroidism T3,FREE Routine 07/08/2023 12:07 PM BENCH LATHE OPERATOR History of hypothyroidism ACUPUNCTURE PLAN OF CARE Routine 06/27/2023 3:05 PM BENCH LATHE OPERATOR Other low back pain ACUPUNCTURE PLAN OF CARE Routine 06/06/2023 3:05 PM BENCH LATHE OPERATOR Other low back pain TRICHOMONAS, CARMELO, AND BACTERIAL VAGINOSIS BY JUAN Routine 06/06/2023 1:32 PM BENCH LATHE OPERATOR Dysuria UA W/ SEDIMENT EXAM REFLEXED PER CRITERIA Routine 06/06/2023 1:32 PM BENCH LATHE OPERATOR Dysuria BEDSIDE US STUDY ARCHIVE Routine 05/30/2023 11:54 AM BENCH LATHE OPERATOR Chronic polyarticular juvenile rheumatoid arthritis (HC) Effusion of elbow joint, left Left elbow pain HPV THIN PREP Routine 10/04/2022 1:31 PM CDT Pap smear for cervical cancer screening SCAN-COLONOSCOPY 01/28/2022 1:00 PM CDT ANTI HIV 1/2 Routine 06/01/2018 4:02 PM BENCH LATHE OPERATOR Exposure to STD ANTI HCV Routine 09/30/2017 5:38 PM CDT STD exposure from Last 3 Months or Most Recently Relevant to Health Maintenance Results * XR MAMMO EVA BILAT SCREEN (08/01/2023 3:29 PM CDT) Anatomical Region Laterality Modality BREASTS, Breast Left, Breast Right Bilateral Mammography Impressions 08/04/2023 12:37 PM CDT ??There is no radiographic evidence for malignancy. ??Recommend annual mammograms. MAMMOGRAM ASSESSMENT: ??ACR 1 Negative PATIENTS: You will also receive a letter with your examination results in an easy to read format. ??If you have questions about your results, please contact your referring provider. Narrative 08/04/2023 12:37 PM CDT For Patients: As a result of the 21st Century Cures Act, medical imaging exams and procedure reports are released immediately into your electronic medical record. You may view this report before your referring provider. If you have questions, please contact your health care provider. XR MAMMO EVA BILAT SCREEN [[id number]] CLINICAL HISTORY: ??This is an asymptomatic 63 y.o. patient. INDICATION FOR EXAM: Mammogram Screening. TECHNIQUE: CC & MLO views were obtained. ??This study was evaluated with the assistance of Computer-Aided Detection. Breast Tomosynthesis was used in interpretation. COMPARISON FILM: Yes 05/13/22 [facility] 05/10/21 [facility] FINDINGS: ??The breasts have scattered areas of fibroglandular density. There are no dominant masses, suspicious micro calcifications or areas of architectural distortion. Nivia Bruno MD MAMMO * (ABNORMAL) LIPID PANEL W REFLEX MEASURED LDL (07/08/2023 12:07 PM BENCH LATHE OPERATOR) CHOLESTEROL,TOTAL 285(H) 100 - 199 mg/dL 07/08/2023 9:55 PM [facility] Comment: Cholesterol, Total Reference Ranges Desirable <200 mg/dL Borderline 200-239 mg/dL High >=240 mg/dL TRIGLYCERIDES 97 <150 mg/dL 07/08/2023 9:55 PM [facility] HDL CHOLESTEROL 76 >40 mg/dL 9:55 PM BENCH LATHE OPERATOR [facility] NON-HDL CHOLESTEROL 209(H) <145 mg/dl 07/08/2023 9:55 PM [facility] CHOL/HDL RATIO 3.75 <4.50 07/08/2023 9:55 PM [facility] LDL CHOLESTEROL 190(H) <=130 mg/dL 07/08/2023 9:55 PM [facility] VLDL CHOLESTEROL 19 <=30 mg/dL 07/08/2023 9:55 PM [facility] PROVIDER ORDERED STATUS RANDOM 07/08/2023 9:55 PM BENCH LATHE OPERATOR [facility] Blood BLOOD SPECIMEN / Unknown Venipuncture / Unknown 07/08/2023 12:07 PM BENCH LATHE OPERATOR 07/08/2023 12:07 PM BENCH LATHE OPERATOR Nivia Bruno MD CHEMISTRY Performing Organization Address [facility] Co de Phone Number [facility] [address] [address], [place] * TSH (07/08/2023 12:07 PM BENCH LATHE OPERATOR) TSH 1.26 0.27 - 4.20 uIU/mL 07/08/2023 9:55 PM BENCH LATHE OPERATOR [facility] Blood BLOOD SPECIMEN / Unknown Venipuncture / Unknown 07/08/2023 12:07 PM BENCH LATHE OPERATOR 07/08/2023 12:07 PM BENCH LATHE OPERATOR Narrative [facility] - 07/08/2023 9:55 PM BENCH LATHE OPERATOR In Adults, TSH values between 5.00 and 10.00 uIU/ml do not necessarily indicate the presence of Hypothyroidism. Correlation with clinical findings such as presence of goiter and/or Thyroperoxidase (TPO) Antibody may be helpful. For more information please refer to DAVID 2004; 291: 228-238. Jyoti GUERRERO CHEMISTRY Performing Organization Address [facility] Co de Phone Number [facility] [address] [phone], [place] * T3,FREE (07/08/2023 12:07 PM BENCH LATHE OPERATOR) T3,FREE 3.32 2.00 - 4.40 pg/mL 07/08/2023 9:55 PM BENCH LATHE OPERATOR [facility] Blood BLOOD SPECIMEN / Unknown Venipuncture / Unknown 07/08/2023 12:07 PM BENCH LATHE OPERATOR 07/08/2023 12:07 PM BENCH LATHE OPERATOR Jyoti GUERRERO CHEMISTRY Performing Organization Address City/[facility]/ZIP Co de Phone Number [facility] [address] [place] [phone], [place] * T4,FREE (07/08/2023 12:07 PM BENCH LATHE OPERATOR) T4,FREE 1.17 0.93 - 1.70 ng/dL 07/08/2023 9:55 PM BENCH LATHE OPERATOR [facility] Blood BLOOD SPECIMEN / Unknown Venipuncture / Unknown 07/08/2023 12:07 PM BENCH LATHE OPERATOR 07/08/2023 12:07 PM BENCH LATHE OPERATOR Jyoti GUERRERO CHEMISTRY [facility] [address] [place] [address], [place] * (ABNORMAL) COMP METABOLIC PANEL (07/08/2023 12:07 PM BENCH LATHE OPERATOR) SODIUM 138 136 - 145 mmol/L 07/08/2023 9:55 PM [facility] POTASSIUM 4.4 3.5 - 5.1 mmol/L 07/08/2023 9:55 PM [facility] CHLORIDE 101 98 - 107 mmol/L 07/08/2023 9:55 PM [facility] CO2,TOTAL 26 22 - 29 mmol/L 07/08/2023 9:55 PM [facility] ANION GAP 11 5 - 18 07/08/2023 9:55 PM [facility] GLUCOSE 100(H) 70 - 99 mg/dL 07/08/2023 9:55 PM [facility] CALCIUM 9.5 8.8 - 10.2 mg/dL 07/08/2023 9:55 PM [facility] BUN 18 8 - 23 mg/dL 07/08/2023 9:55 PM [facility] CREATININE 0.83 0.50 - 0.90 mg/dL 07/08/2023 9:55 PM [facility] BUN/CREAT RATIO 22(H) 10 - 20 9:55 PM BENCH LATHE OPERATOR [facility] eGFR 79(L) >90 mL/min/1.7 3m2 07/08/2023 9:55 PM BENCH LATHE OPERATOR [facility] Comment:As of 2021, eG FR is calculated by the CKD-EPI creatinine equation without race adjustment. ??eGFR can be influenced by muscle mass, exercise, and diet. ??The reported eGFR is an estimation only and is only applicable if the renal function is stable. ALBUMIN 4.7 4.0 - 4.9 g/dL 07/08/2023 9:55 PM BENCH LATHE OPERATOR [facility] PROTEIN,TOTAL 6.9 6.0 - 8.0 g/dL 07/08/2023 9:55 PM BENCH LATHE OPERATOR [facility] BILIRUBIN,TOTAL 0.4 0.0 - 1.2 mg/dL 07/08/2023 9:55 PM BENCH LATHE OPERATOR [facility] ALK PHOSPHATASE 60 35 - 104 IU/L 07/08/2023 9:55 PM BENCH LATHE OPERATOR [facility] ALT (SGPT) 25 10 - 35 IU/L 07/08/2023 9:55 PM BENCH LATHE OPERATOR [facility] AST (SGOT) 27 10 - 35 IU/L 07/08/2023 9:55 PM [facility] Blood BLOOD SPECIMEN / Unknown Venipuncture / Unknown 07/08/2023 12:07 PM BENCH LATHE OPERATOR 07/08/2023 12:07 PM BENCH LATHE OPERATOR Nivia Bruno MD CHEMISTRY [facility] [address] [place] [address], * TRICHOMONAS, CARMELO, AND BACTERIAL VAGINOSIS BY JUAN (06/06/2023 1:32 PM BENCH LATHE OPERATOR) CARMELO SPECIES Negative Negative 10:34 AM BENCH LATHE OPERATOR [facility] CARMELO GLABRATA Negative Negative 06/07/2023 10:34 AM BENCH LATHE OPERATOR [facility] TRICHOMONAS VVA Negative Negative 10:34 AM BENCH LATHE OPERATOR [facility] BACTERIAL VAGINOSIS Negative Negative 06/07/2023 10:34 AM BENCH LATHE OPERATOR [facility] Other VAGINAL SWAB / Unknown Non-Blood / Unknown 06/06/2023 1:32 PM BENCH LATHE OPERATOR 06/06/2023 2:13 PM BENCH LATHE OPERATOR Nivia Bruno MD [facility]Y [facility] [address] [place] [address], [place] * (ABNORMAL) UA W/ SEDIMENT EXAM REFLEXED PER CRITERIA (06/06/2023 1:32 PM BENCH LATHE OPERATOR) COLOR Yellow Yellow Color 06/06/2023 2:17 PM BENCH LATHE OPERATOR [facility] CLARITY Clear Clear Clarity 06/06/2023 2:17 PM BENCH LATHE OPERATOR [facility] SPECIFIC GRAVITY,URINE 1.020 1.010, 1.015, 1.020, 1.025 06/06/2023 2:17 PM BENCH LATHE OPERATOR [facility] PH,URINE 5.5 6.0, 7.0, 8.0, 5.5, 6.5, 7.5, 8.5 06/06/2023 2:17 PM BENCH LATHE OPERATOR [facility] UROBILINOGEN, QUALITATIVE Normal Normal EU/dl 06/06/2023 2:17 PM BENCH LATHE OPERATOR [facility] PROTEIN, URINE Negative Negative mg/dL 06/06/2023 2:17 PM BENCH LATHE OPERATOR [facility] GLUCOSE, URINE Negative Negative mg/dL 06/06/2023 2:17 PM BENCH LATHE OPERATOR [facility] KETONES,URINE Trace(A) Negative mg/dL 06/06/2023 2:17 PM BENCH LATHE OPERATOR [facility] BILIRUBIN,URI NE Negative Negative 06/06/2023 2:17 PM BENCH LATHE OPERATOR [facility] OCCULT BLOOD,URINE Negative Negative 06/06/2023 2:17 PM BENCH LATHE OPERATOR [facility] NITRITE Negative Negative 06/06/2023 2:17 PM BENCH LATHE OPERATOR [facility] LEUKOCYTE ESTERASE Negative Negative 06/06/2023 2:17 PM BENCH LATHE OPERATOR [facility] Urine URINE SPECIMEN / Unknown Non-Blood / Unknown 06/06/2023 1:32 PM BENCH LATHE OPERATOR 06/06/2023 2:13 PM BENCH LATHE OPERATOR Nivia Bruno MD URINE [facility] [address] [place] [address], [place] [phone] * BEDSIDE US STUDY ARCHIVE (05/30/2023 11:54 AM BENCH LATHE OPERATOR) Narrative Maureen Martinez - 05/30/2023 11:54 AM BENCH LATHE OPERATOR The patient was seen for ultrasound guided injection by Dr. Facundo Mijares. Ultrasound was not used for diagnostic purposes, but to guide the needle placement and document the position of the injection. ?? See patient's EPIC encounter for the detail of the procedure; see SUSANNA for saved images of the injection. Facundo Mijares MD PROCEDURE ORD * HPV HIGH RISK (10/04/2022 1:31 PM CDT) TYPE 16 Negative Negative 10/10/2022 4:40 PM CDT [facility] TYPE 18 Negative Negative 10/10/2022 4:40 PM CDT [facility] OTHER HIGH RISK TYPES Negative Negative 10/10/2022 4:40 PM CDT [facility] Other (Cervical) Non-Blood / Unknown 10/04/2022 1:31 PM CDT 10/08/2022 2:11 PM CDT Narrative [facility] - 10/10/2022 4:40 PM CDT HPV types 16, 18, 31, 33, 35, 39, 45, 51, 52, 56, 58, 59, 66 and 68 DNA were undetectable or below the pre-set threshold. Methodology: [employer] [facility] 4800 HPV Test Nivia Bruno MD MICROBIOLOGY [facility] [address] [place] [address], [place] * SCAN-COLONOSCOPY (01/28/2022 1:00 PM CDT) Narrative Procedure Note Edison Ceron MD - 01/28/2022 12:02 PM CDT [facility] [address], [address], [place] [address] Patient Name: Juliette Brown Gender: Female Exam Date: 01/28/2022 Visit Number: [id number] Age: 61 Years 9 Months Date of : 1960 Attending MD: Edison Ceron MD Medical Record#: [id number] ----- Procedure: Colonoscopy Indications: Recent history of diverticulitis Referring MD: Referral Self Primary MD: Nivia Bruno MD Medications: Intra Procedure Medications: Patient received monitored anesthesia care. Complications: No immediate complications Procedure: An examination of the heart and lungs was performed and found to be withinacceptable limits. The patient was therefore deemed a reasonablecandidate for endoscopy and monitored anesthesia care. The risks and benefits of the procedure were explained to the patient.After obtaining informed consent, the patient received monitoredanesthesia care and I passed the scope without difficulty via the rectum to the cecum. The appendiceal orificeand ic valve were identified. The scope was retroflexed during theexamination The quality of the prep was excellent (Miralax/Gatorade/2tablets Bisacodyl/Magnesium Citrate). This was a complete examination throughout the entire colon. WDT=6 Findings: Diverticulosis. Location: - descending colon. Description: moderate.Size: medium. Quantity: many. No inflammation present. Remainder of the exam is normal. Impression: Diverticulosis of colon (without mention of hemorrhage) Plan Recommendation Comments: Will go forward with plans for surgery Electronically signed by: Edison Ceron MD 01/28/2022 Medications: Medication Dose Sig Description PRN Status PRN Reason Comments CALCIUM & MAGNESIUM CARBONATE UNKNOWN take 2 tablet by oral route asneeded or as directed. Not to exceed 24 tablets in 24hrs N taking asdirected buspirone 5 mg tablet 5 mg take 2 tablet by oral route every day Ntaking as directed buspirone 7.5 mg tablet 7.5 mg take 1 tablet by oral route every day Ntaking as directed cephalexin UNKNOWN take 1 capsule by oral route every 6 hours N takingas directed estradiol 0.5 mg tablet 0.5 mg take 1 tablet by oral route every day days1-21 N taking as directed liothyronine 5 mcg tablet 5 mcg take 2 tablet by oral route 2 times everyday N taking as directed lorazepam 0.5 mg tablet 0.5 mg take 1 tablet by ORAL route every day asneeded as needed Y taking as directed OMEGA-3 FISH OIL UNKNOWN take 1 - 2 Tablet by Oral route every day Ntaking as directed sertraline 25 mg tablet 25 mg take 1 Tablet by oral route every day Ntaking as directed trazodone 50 mg tablet 50 mg take 1 Tablet by oral route every day atbedtime N taking as directed Vitamin D-3 1,000 unit Chewable Tab 25 mcg (1,000 unit) take 1 Tablet byOral route every day N taking as directed fiber 2 gram chewable tablet 2 gram take as directed N taking as directed Allergies: Medication Name Ingredient Reaction Comment Unknown Medication Anaphylactic shock Gold Shots- rheumatoid arthritismed Vital Signs: Date Time Systolic Diastolic Height Weight BMI 01/28/2022 1236 PM 120 57 68 in 144.01 21.90 Race: White Ethnicity: Not or Preferred Language: [place] Rican cc: Nivia Bruno MD [facility] [phone] Edison Ceron MD OTHER * ANTI HIV 1/2 (06/01/2018 4:02 PM BENCH LATHE OPERATOR) HIV-1/HIV-2 ANTIBODY Non-Reacti ve Non-Reacti ve 06/01/2018 8:08 PM BENCH LATHE OPERATOR [facility] Comment:HIV-1 p24 and HIV-1/ HIV-2 Ab not detected. Blood BLOOD SPECIMEN / Unknown Venipuncture / Unknown 06/01/2018 4:02 PM BENCH LATHE OPERATOR 06/01/2018 4:02 PM BENCH LATHE OPERATOR Nivia Bruno MD [facility] [address] * ANTI HCV (09/30/2017 5:38 PM CDT) HEPATITIS C ANTIBODY Non-React mathieu Non-React mathieu 10/01/2017 2:41 PM CDT [facility] Comment:Antibodies to HCV no t detected; does not exclude the possibility of exposure to HCV. Blood BLOOD SPECIMEN / Unknown Venipuncture / Unknown 09/30/2017 5:38 PM CDT 09/30/2017 5:38 PM CDT Kourtney GUERRERO [facility]S [facility] [address] from Last 3 Months or Most Recently Relevant to Health Maintenance Advance Directives Documents on File Type Date Recorded Patient Packaging Line Attendant Expl anation Healthcare Directive 04/01/2022 022 * Full Code (Latest Code Status on File) Date Activated Date Inactivated Comments 03/29/2022 6:19 AM 04/01/2022 6:39 PM Question Answer Comments Code Status Discussion: Reviewed Preferences * Full Code Date Activated Date Inactivated Comments 03/28/2022 10:24 AM 03/29/2022 6:19 AM Question Answer Comments Code Status Discussion: Unable to Assess Preferences, Provider to review later * Full Code Date Activated Date Inactivated Comments 01/23/2015 11:48 PM 01/28/2015 4:41 PM * Full Code Date Activated Date Inactivated Comments 03/23/2014 11:22 PM 03/25/2014 5:29 PM * Full Code Date Activated Date Inactivated Comments 06/04/2011 6:43 PM 06/10/2011 6:41 PM Care Teams Well Cleaner Relationship Specialty Start Date End Date Nivia Bruno MD [address] [place] [address] PCP - General Family Practice 07/01/19 Lisa Thakur, RN [address] [place] [address] Complex Care Management Registered Nurse 05/20/23 Judie Carreno, PharmD [address] [place] [address] Pharmacist Medication Management Pharmacology 05/28/23 05/28/25
--- OUTSIDE RECORDS SUMMARY | 2023-08-18 15:11 | XMS_ITS | Clinical Summary ---
Author Name Unknown Organization [facility] Address [address] [place] [address] Care Team Providers Care Credit Collections Rep Name Role Phone Nivia Bruno MD Primary Care Provider [phone] Allergies Active Allergy Reactions Criticality Noted Date [...] 1 tablet by mouth 0 07/22/2014 Active Scio-3 1000 MG CAPS 0 04/02/2016 Acti ve Saline (SODIUM CHLORIDE) 0.65 % SOLN Forgan 1 spray in nostril 0 01/28/2015 Active [...] 02/15/2021 1:17 PM CDT Plan of Treatment Health Maintenance Due Date Last Done Comments ADVANCE CARE PLANNING 1960 ANNUAL REVIEW OF HM ORDERS 1960 CT COLONOGRAPHY 1960 DEPRESSION ACTION PLAN 1960 FIT 1960 FLEX SIG 1960 sDNA (Cologuard) 1960 COLONOSCOPY 1969 COLORECTAL CANCER SCREENING 1969 HIV SCREENING 1974 HEPATITIS C SCREENING 1977 MEDICARE ANNUAL WELLNESS VISIT 1977 PAP 1980 LIPID 1999 HEPATITIS A IMMUNIZATION (2 of 2 - Risk 2-dose series) 10/26/2008 04/27/2008 RSV VACCINE ( & 60+) (1 - 1-dose 60+ series) 2019 GLUCOSE 06/23/2020 06/23/2017, 04/15/2016 PHQ-9 12/11/2021 06/13/2021, 12/0 10/2020, 03/21/2021, Additional history exists COVID-19 Vaccine ( - 2022-24 season) 2023 02/21/2021, 08/09/2020, 07/19/2020 INFLUENZA VACCINE (#1) 2023 , 02/24/2020, 02/07/2014, Additional history exists MAMMO SCREENING 05/10/2023 05/10/2021 DTAP/TDAP/TD IMMUNIZATION (6 - Td or Tdap) 05/31/2026 05/31/2016, 05/31/2016, 09/30/2005, Additional history exists Pneumococcal Vaccine: Pediatrics (0 to 5 Years) and At-Risk Patients (6 to 64 Years) Aged Out 07/11/2009, 03/25/2007, 12/10/2001 No longer eligible based on patient's age to complete this topic ZOSTER IMMUNIZATION Completed 08/28/2020, 0 HPV IMMUNIZATION Aged Out No longer e ligible based on patient's age to complete this topic IPV IMMUNIZATION Aged Out No longer e ligible based on patient's age to complete this topic MENINGITIS IMMUNIZATION Aged Out No l onger eligible based on patient's age to complete this topic RSV MONOCLONAL ANTIBODY Aged Out No l onger eligible based on patient's age to complete this topic Advance Directives For more information, please contact: [phone] Latest Code Status on File Code Status Date Activated Date Inactivated Comments Full Code 04/16/2016 1:58 AM 04/22/2016 3:55 PM Care Teams Credit Collections Rep Relationship Specialty Start Date End Date Nivia Bruno MD PCP - General 03/22/21
--- OUTSIDE RECORDS SUMMARY | 2023-08-18 15:11 | XMS_ITS | Encounter Summary ---
Author Name Unknown Organization [facility] Address [address], [place] [address] Care Team Providers Care Cinema Operator Name Role Phone Needs Pcp, Assignment Primary Care Provider [phone] Reason for Visit * Auth/Cert Specialty Diagnoses / Procedures Referred By Contac t Referred To Contact Diagnoses Diarrhea of presumed infectious origin Fibromyalgia Diarrhea of presumed infectious origin Fibromyalgia Diarrhea of presumed infectious origin Fibromyalgia Referral ID Status Reason Start Date Expiration Date Visits Re quested Visits Authorized [id number] 1 1 Encounter Details Date Type Department Care Team (Latest Contact Info) Description 07/15/2019 Lab Requisition [facility] [address] [facility] [place] [address] Lul Hunter MD [address] [place] [address] Enterocolitis due to Clostridium difficile, not specified as recurrent Social History Tobacco Use Types Packs/Day Years [...] on file documented as of this encounter Procedures Procedure Name Priority Date/Time Associated Diagnosis Comments C.DIFFICILE TOXIN,MOLECULAR DETECTION Routine 07/15/2019 10:00 PM BALANCER SCALE Enterocolitis due to Clostridium difficile, not specified as recurrent documented in this encounter Results * (ABNORMAL) C.Difficile Toxin,Molecular Detection, (07/15/2019 10:00 PM BALANCER SCALE) C.difficile by PCR Detected( A) Not Detected 07/15/2019 11:30 PM BALANCER SCALE [facility] Stool Non-blood Collection / Unknown 07/15/2019 10:00 PM BALANCER SCALE 07/15/2019 10:24 PM BALANCER SCALE Narrative [facility] - 07/15/2019 11:30 PM BALANCER SCALE Methodology: Qualitative real-time PCR assay to detect the Clostridium difficile toxin B gene. Lul Hunter MD LAB_1 [facility] [address] [place], [place] [address] documented in this encounter Visit Diagnoses Diagnosis Enterocolitis due to Clostridium difficile, not specified as recurrent documented in this encounter Care Teams Cinema Operator Relationship Specialty Start Date End Date Needs Pcp, [place] [address] PCP - General 02/28/21 documented as of this encounter
--- OUTSIDE RECORDS SUMMARY | 2023-08-18 15:11 | XMS_ITS | Encounter Summary ---
Author Name Unknown Organization [facility] Address [address], [place] [address] Care Team Providers Care Flash Developer Name Role Phone Needs Pcp, Assignment Primary Care Provider [phone] Encounter Details Date Type Department Care Team (Late st Contact Info) Description 07/12/2019 Lab Requisition [facility] [address] [place] [address] Lul Hunter MD [address] [place] [place], [place] [id number] Encounter for surgical aftercare following surgery on the nervous system Social History Tobacco Use Types Packs/Day Years [...] Procedure Name Priority Date/Time Associated Diagnosis Comments BASIC METABOLIC PANEL Routine 07/13/2019 7:00 AM PHLEBOTOMY COORDINATOR Encounter for surgical aftercare following surgery on the nervous system COMPLETE BLOOD COUNT-NO DIFF Routine 07/13/2019 7:00 AM PHLEBOTOMY COORDINATOR Encounter for surgical aftercare following surgery on the nervous system documented in this encounter Results * (ABNORMAL) Basic Metabolic Panel (07/13/2019 7:00 AM PHLEBOTOMY COORDINATOR) Sodium 136 136 - 145 mmol/L 07/13/2019 12:35 PM PHLEBOTOMY COORDINATOR [facility] Potassium 4.7 3.5 - 5.1 mmol/L 07/13/2019 12:35 PM PHLEBOTOMY COORDINATOR [facility] Chloride 100 98 - 109 mmol/L 07/13/2019 12:35 PM PHLEBOTOMY COORDINATOR [facility] CO2 27 20 - 29 mmol/L 07/13/2019 12:35 PM PHLEBOTOMY COORDINATOR [facility] Anion Gap 9 7 - 16 mmol/L 07/13/2019 12:35 PM PHLEBOTOMY COORDINATOR [facility] Calcium 9.2 8.4 - 10.4 mg/dL 07/13/2019 12:35 PM PHLEBOTOMY COORDINATOR [facility] BUN 18 7 - 26 mg/dL 07/13/2019 12:35 PM PHLEBOTOMY COORDINATOR [facility] Creatinine 0.76 0.55 - 1.02 mg/dL 07/13/2019 12:35 PM PHLEBOTOMY COORDINATOR [facility] GFR, Estimated >60 >60 mL/min/1.7 3m2 07/13/2019 12:35 PM PHLEBOTOMY COORDINATOR [facility] GFR, Est If >60 >60 mL/min/1.7 3m2 07/13/2019 12:35 PM PHLEBOTOMY COORDINATOR [facility] Glucose 105(H) 70 - 100 mg/dL 07/13/2019 12:35 PM PHLEBOTOMY COORDINATOR [facility] Comment:The given reference range is for the fasting state. Non-fasting reference range for glucose is 70 - 180 mg/dL. Hours Fasting Unknown 07/13/2019 12:35 PM PHLEBOTOMY COORDINATOR [facility] Blood Venipuncture / Unknown 07/13/2019 7:00 AM PHLEBOTOMY COORDINATOR 07/13/2019 10:40 AM PHLEBOTOMY COORDINATOR Lul Hunter MD LAB_1 [facility] [address] * (ABNORMAL) Complete Blood Count-No Diff (07/13/2019 7:00 AM PHLEBOTOMY COORDINATOR) Pathologist [facility] WBC 4.7 3.5 - 10.5 x10(9)/L 07/13/2019 11:17 AM PHLEBOTOMY COORDINATOR [facility] RBC 3.19(L) 3.90 - 5.03 x10(12)/L 07/13/2019 11:17 AM PHLEBOTOMY COORDINATOR [facility] Hemoglobin 10.1(L) 12.0 - 15.5 g/dL 07/13/2019 11:17 AM PHLEBOTOMY COORDINATOR [facility] HCT 31.2(L) 34.9 - 44.5 % 07/13/2019 11:17 AM PHLEBOTOMY COORDINATOR [facility] MCV 97.8 80.0 - 100.0 fL 07/13/2019 11:17 AM PHLEBOTOMY COORDINATOR [facility] MCH 31.7 27.6 - 33.3 pg 07/13/2019 11:17 AM PHLEBOTOMY COORDINATOR [facility] MCHC 32.4 31.5 - 35.2 g/dL 07/13/2019 11:17 AM PHLEBOTOMY COORDINATOR [facility] RDW 11.7(L) 11.9 - 15.5 % 07/13/2019 11:17 AM PHLEBOTOMY COORDINATOR [facility] Platelets 221 150 - 450 x10(9)/L 07/13/2019 11:17 AM PHLEBOTOMY COORDINATOR [facility] Automated NRBC 0 <=0 /100 WBC 07/13/2019 11:17 AM PHLEBOTOMY COORDINATOR [facility] Blood Venipuncture / Unknown 07/13/2019 7:00 AM PHLEBOTOMY COORDINATOR 07/13/2019 10:44 AM PHLEBOTOMY COORDINATOR Lul Hunter MD LAB_1 Performing Organization Address City/State/[facility] Co de Phone Number [facility] [address] documented in this encounter Visit Diagnoses Diagnosis Encounter for surgical aftercare following surgery on the nervous system documented in this encounter Care Teams Flash Developer Relationship Specialty Start Date [place] [address] PCP - General 02/28/21 documented as of this encounter
--- OUTSIDE RECORDS SUMMARY | 2023-08-18 15:11 | XMS_ITS | Encounter Summary ---
Author Name Unknown Organization [facility] Address [facility] [facility] [place] [address] Care Team Providers Care After School Program Assistant Name Role Phone Kelsi Handy MD Unavailable [phone] Nivia Bruno MD Primary Care Provider [phone] Encounter Details Date Type Department Care Team ([facility] Contact Info) Description 09/25/2021 Telephone [facility] Intake [address] [place] [phone] Generic, Behavioral Intake, Social History Tobacco Use [...] * Telephone Encounter - Rafael Cota - 09/25/2021 12:00 PM CDT ----- Message from SHANNON Warner sent at 09/25/2021 11:03 AM CDT ----- Regarding: add appointment Scheduling Request Patient Name: ?? Location of programming: [facility] Start Date: 09/27/21 Group (BHxxxxx on #days of the week# at #start time to end time#): 55+ clinic 1 Provider (name of MD):krery Number of visits to be scheduled: 1 Duration of Appointment in minutes: 120 mins Visit Type (Robert - 7281 / Zoom - 4225 / In-person or Treatment - 870) :zoom 2657 Additional notes: documented in this encounter Plan of Treatment Not on file documented as of this encounter Visit Diagnoses Not on filedocumented in this encounter Additional Health Concerns Assessment Noted Time PHQ-9 Depression Total Score: 7 06/14/19 22 10:59 AM INPUT OUTPUT CLERK documented as of this encounter Care Teams After School Program Assistant Relationship Specialty Start Date End Date Nivia Bruno MD [address] [place] [address] PCP - General 03/22/21 Kelsi Handy MD [address] [place] [address] Assigned OBGYN Provider 04/23/20 3 documented as of this encounter
--- OUTSIDE RECORDS SUMMARY | 2023-08-18 15:11 | XMS_ITS | Encounter Summary ---
Author Name Unknown Organization [facility] Address [address] [place] [address] Care Team Providers Care Perch Machine Inspector Name Role Phone Heladio Martins MD Primary Care Provider UnaKelsi Hummel MD Unavailable [phone] Nivia Bruno MD Primary Care Provider [phone] Encounter Details Date Type Department Care Team ([facility] Contact Info) Description 03/07/2021 [facility] Health Intake [address] [place] [phone] Generic, Behavioral Intake, Social History Tobacco Use [...] PM CDT documented as of this encounter Miscellaneous Notes * Telephone Encounter - Jen Serrano - 03/08/2021 11:44 AM CDT ----- Message from KETTY Lynn sent at 03/08/2021 11:29 AM CDT ----- Regarding: RE: Schedule for PHP on Friday Scheduling Request - Please remove appts for PHP program (below request). Will be starting in 55+ program instead. Patient Name: Juliette Brown Location of programmin= Start Date: March Group: BH b1 on Friday, Friday, and Friday at 1:00 to 4:00 Attending Provider (): kerry Number of visits to be scheduled: 36 Duration of Appointment in minutes: 180 min Visit Type: Zoom - 2657 Additional notes: ----- Message ----- From: Hanna Koenig LICSW Sent: 03/06/2021 7:37 PM CDT To: Cheyanne Santana [facility], Quentin Hagan, # Subject: Schedule for PHP on Friday Scheduling Request Patient Name: Juliette Brown Location of programming: [facility] Start Date: 03/12 Group: [id number] 9am to 3pm Attending Provider (MD): Trent Number of visits to be scheduled: 50 Duration of Appointment in minutes: 360 Visit Type: Zoom - 2654 Additional notes: Patient is currently in PHP at [facility]. She has Medicare and BCBS. Please check ifinsurance will cover another PHP program. Patient was given [employer] phone number. * Telephone Encounter - Jen Serrano - 03/07/2021 7:50 AM CDT ----- Message from KETTY Rollins sent at 03/06/2021 7:37 PM CDT ----- Regarding: Schedule for PHP on Friday Scheduling Request Patient Name: Juliette Brown Location of programming: [facility] Start Date: 03/12 Group: [id number] 9am to 3pm Attending Provider (): Vine Number of visits to be scheduled: 50 Duration of Appointment in minutes: 360 Visit Type: Zoom - 2657 Additional notes: Patient is currently in PHP at [facility]. She has Medicare and BCBS. Please check ifinsurance will cover another PHP program. Patient was given [employer] phone number. documented in this encounter Plan of Treatment Not on file documented as of this encounter Visit Diagnoses Not on filedocumented in this encounter Additional Health Concerns Assessment Noted Time PHQ-9 Depression Total Score: 21 021 12:28 PM CDT documented as of this encounter Care Teams Perch Machine Inspector Relationship Specialty Start Date End Date Heladio Martins MD PCP - General Internal Medicine 03/05/16 03/21/21 Nivia Bruno MD [address] [place] [address] PCP - General 03/22/21 Kelsi Handy MD [address] [place] [address] Assigned OBGYN Provider 04/23/20 3 documented as of this encounter
[2023-08-18 15:30] LABS: Basophils Percent Auto 0.4 % (0.0-3.0); Eosinophils Percent Auto 0.8 % (0.0-7.0); Hematocrit 42.3 % (33.0-51.0); Immature Granulocytes Pct Auto 0.2 %; Lymphocytes Percent Auto 17.6 % (20-44); Mean Corpuscular HGB Conc 33 gm/dL (32-36); Mean Corpuscular Hemoglobin 31 pg (26-34); Mean Corpuscular Volume 93 fL (80-100); Monocytes Percent Auto 5.5 % (0.0-11.0); Neutrophils Percent Auto 75.5 % (42.0-72.0); Platelet Count* 233 K/uL (140-440); Red Blood Count 4.56 m/uL (4.00-5.20); White Blood Count* 8.92 K/uL (4.50-11.00)
[2023-08-18 15:31] LABS: Basophils Absolute Auto 0.04 K/uL (0.00-0.30); Eosinophils Absolute Auto 0.07 K/uL (0.00-0.50); Immature Granulocytes Abs Auto 0.02 K/uL (0.00-0.30)
[2023-08-18 15:45] LABS: Slide Review Reflex No
[2023-08-18 16:24] LABS: Aspartate Amino Transferase* 28 U/L (12-35); Creatinine* 0.8 mg/dL (0.5-1.5); Estimated Glomerular Filt Rate 82 ml/min
[2023-08-18 16:53] LABS: C Reactive Protein* < 0.5 mg/dL (0.5-1.0)
[2023-08-18 17:22] LABS: Erythrocyte SedimentationRate* 8 mm/hr (2-20)
== END 2023-08-18 15:07 | disposition home or self-care (01) ==
PROVIDERS: PCP Family Medicine; Visit Provider Physician Assistant
DX: M08.00 Unspecified juvenile rheumatoid arthritis of unspecified site (principal)
CPT/HCPCS: 36415; 82565; 84450; 85025; 85651; 86140

== ENCOUNTER 2023-09-14 15:55 | Emergency (ER) | payer MEDICARE, BC, SELFPAY ==
[2023-09-14 16:00] VITALS: BP 109/65; PULSE 81; RESP 18; TEMP 36.4; O2SAT 97; BMI 22.2
--- NOTE | 2023-09-14 17:48 | XR_ITS ---
Patient: JULITA CJEA Facility:?[facility] Patient ID:?[id number] Site Patient ID:?[id number]. Site :?[id number] Study:?XRay-Extremity Left Foot-09/14/2023 6:39:59 PM Ordering Physician:?Dav Chaves Final Report: Indication: Trauma. Technique: Left foot, 3 views. Comparison: None. Findings/Impression: Bones: Alignment is normal. No displaced fractures or bone lesions. Joint spaces: Unremarkable. Soft tissues: Unremarkable. Dictated by Noah Dickson MD @ 09/14/2023 6:55:03 PM Signed by:?Noah Dickson MD @09/14/2023 6:55:03 PM (Electronic Signature)
--- NOTE | 2023-09-14 19:31 | ED.GENADULT ---
HPI - General Adult General Date Seen: 09/14/23 Chief complaint: Extremity Pain/Injury, Lower Stated complaint: pain in L foot Time Seen by Provider: 09/14/23 19:24 History of Present Illness HPI narrative: Pleasant 63-year-old female presenting to the ER today for left foot pain and concerned that she may have broken her foot yesterday. She is doing some exercise yesterday including heel raises where she pushes off from the ground on her toes to lift her heels up. No other injury or fall. After that she went to go [facility], her grandson is a musician. She was there to attend [employer]. She had do a lot of brisk walking around the campus and noted a lot of pain at the base of the 5th metatarsal on the lateral side of her left foot yesterday. She was worried it was broken because it was so painful. It is still painful today. No bruising or swelling. No associated numbness or tingling. Because of the amount of pain she is having she came to the ER to make sure was not broken. Related Data Home Medications Medication Instructions Recorded Confirmed clobetasol 0.05 % topical ointment 1 applic topical .qod 11/21/21 08/29/23 liothyronine 5 mcg tablet 5 mcg PO .B.i.d. 11/21/21 08/29/23 lorazepam 0.5 mg tablet 0.5 mg PO Q12H PRN 12/08/21 08/29/23 melatonin 3 mg capsule 9 mg PO HS 12/08/21 08/29/23 trazodone 50 mg tablet 100 mg PO QHS PRN 01/17/23 08/29/23 buspirone 15 mg tablet 15 mg PO BID 03/25/23 08/29/23 cyclosporine 0.05 % eye drops in a drp ophthalmic (eye) 03/25/23 08/29/23 dropperette escitalopram oxalate 10 mg tablet 15 mg PO DAILY 03/25/23 08/29/23 (Lexapro) lidocaine HCl 2 % mucosal solution PO 03/25/23 08/29/23 (Lidocaine Viscous) propranolol 20 mg tablet 20 mg PO BID 03/25/23 08/29/23 tretinoin 0.025 % topical cream 1 applic topical QPM 03/25/23 08/29/23 valacyclovir 1 gram tablet 1,000 mg PO 3XD 03/25/23 08/29/23 varenicline 0.03 mg/spray nasal intranasal 03/25/23 08/29/23 spray (Tyrvaya) Magic Mouthwash 5 ml PO Q4-6H PRN 08/29/23 (Lidocaine/Benadryl/Maalox) 120 mL suspension Previous Rx's Medication Instructions Recorded Lactobacillus acidophilus 0.5 mg 1 tab PO TIDWM 90 days #90 tabs 12/10/21 (100 million cell) tablet hydromorphone 2 mg tablet 2 mg PO Q4H PRN 5 days #30 tabs 12/10/21 ondansetron 4 mg disintegrating 4 mg PO Q6H PRN nausea and 12/10/21 tablet vomiting #10 tabs albuterol sulfate 90 mcg/actuation 2 puff inhalation Q4-6H PRN 03/05/23 aerosol inhaler shortness of breath or wheezing #8.5 grams triamcinolone acetonide 0.025 % 1 applic topical BID #15 grams 03/25/23 topical cream estradiol 10 mcg vaginal tablet 10 mcg vaginal 2XW #24 tabs 09/10/23 (Yuvafem) Allergies Allergy/AdvReac Type Severity Reaction Status Date / Time auranofin Allergy Verified 08/29/23 14:51 cat dander Allergy Verified 08/29/23 14:51 Gadolinium-Containing Allergy Verified 08/29/23 14:51 Contrast Medi gluten Allergy Verified 08/29/23 14:51 gold keratinate Allergy Verified 08/29/23 14:51 gold sodium thiomalate Allergy Verified 08/29/23 14:51 lactose Allergy Verified 08/29/23 14:51 Opioids - Morphine Analogues Allergy Verified 08/29/23 14:51 goldshots Allergy Severe Anaphylaxis Uncoded 08/29/23 14:51 PFS PFSH Medical History Herpes zoster ?B02.9 - Zoster without complications (ICD-10) Diverticulitis ?K57.92 - Diverticulitis of intestine, part unspecified, without perforation or abscess without bleeding (ICD-10) Closed T12 fracture ?S22.089A - Unspecified fracture of T11-T12 vertebra, initial encounter for closed fracture (ICD-10) History of Clostridioides difficile colitis ?Z86.19 - Personal history of other infectious and parasitic diseases (ICD-10) History of hypothyroidism ?Z86.39 - Personal history of other endocrine, nutritional and metabolic disease (ICD-10) History of diverticulitis of colon (05/09/11) ?Z87.19 - Personal history of other diseases of the digestive system (ICD-10) History of Clostridioides difficile infection ?Z86.19 - Personal history of other infectious and parasitic diseases (ICD-10) Abscess of sigmoid colon due to diverticulitis ?K57.20 - Diverticulitis of large intestine with perforation and abscess without bleeding (ICD-10) Osteoporosis ?M81.0 - Age-related osteoporosis without current pathological fracture (ICD-10) Sigmoid diverticulitis ?K57.32 - Diverticulitis of large intestine without perforation or abscess without bleeding (ICD-10) History of femur fracture ?Z87.81 - Personal history of (healed) traumatic fracture (ICD-10) Insomnia ?G47.00 - Insomnia, unspecified (ICD-10) Anxiety ?F41.9 - Anxiety disorder, unspecified (ICD-10) Sarcoidosis ?D86.9 - Sarcoidosis, unspecified (ICD-10) Hypothyroidism ?E03.9 - Hypothyroidism, unspecified (ICD-10) Sensorineural hearing loss (SNHL) of both ears ?H90.3 - Sensorineural hearing loss, bilateral (ICD-10) Depression ?F32.A - Depression, unspecified (ICD-10) Chronic fatigue syndrome ?R53.82 - Chronic fatigue, unspecified (ICD-10) 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 - Unspecified juvenile rheumatoid arthritis of unspecified site (ICD-10) Migraines ?G43.909 - Migraine, unspecified, not intractable, without status migrainosus (ICD-10) Diverticulitis of intestine with abscess ?K57.80 - Diverticulitis of intestine, part unspecified, with perforation and abscess without bleeding (ICD-10) Surgical History History of total knee replacement ?Z96.659 - Presence of unspecified artificial knee joint (ICD-10) S/P hammer toe correction ?Z98.890 - Other specified postprocedural states (ICD-10) ?Z87.39 - Personal history of other diseases of the musculoskeletal system and connective tissue (ICD-10) History of repair of rotator cuff ?Z98.890 - Other specified postprocedural states (ICD-10) History of tonsillectomy ?Z90.89 - Acquired absence of other organs (ICD-10) History of total hip arthroplasty ?Z96.649 - Presence of unspecified artificial hip joint (ICD-10) History of bilateral knee arthroplasty ?Z96.653 - Presence of artificial knee joint, bilateral (ICD-10) Family History Father High blood pressure Hyperlipidemia Mother High blood pressure Hyperlipidemia Sister Seizure disorder Social History Narrative: She lives alone in [place]. 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 She does not smoke. She drinks alcohol about once a month. She uses no recreational drugs. She does have a history of chemical dependency. Healthcare power of cylinder sander operator is her sister Denise. Code status is full. Are you following a special diet: Yes (no gluten, lactose intolerent) Highest level of school completed/degree received: Master's degree Smoking Status: Never smoker Do you use any of these nicotine containing products: None Second hand tobacco smoke exposure: No How often do you have a drink containing alcohol: never How often do you have six or more drinks on one occasion: Never AUDIT-C Alcohol total score: 0 Non-prescribed substance use: denies use Caffeine: Yes (coffee 3x weekly) Are you now , , , , never or living with a partner: Social isolation score (0-1 are the most socially isolated patients): 0 Are you currently sexually active: No service: No Exam Narrative: Exam Narrative: Constitutional: Appears well-developed and well-nourished. Polite. Non-toxic appearing. HENT: Head: Atraumatic. No signs of injury. Nose: No nasal discharge. Mouth/Throat: Mucous membranes are moist. Pharynx is normal. Tonsils symmetric. Uvula midline. Airway patent. Eyes: Conjunctivae normal and EOM are normal. Pupils are equal, round, and reactive to light. Right eye exhibits no discharge. Left eye exhibits no discharge. No icterus. Neck: Normal range of motion. Neck supple. No adenopathy. No stridor. Cardiovascular: Normal rate and regular rhythm. No murmur heard. No murmurs, rubs, or gallops. Brisk capillary refill Pulmonary/Chest: Effort normal. No stridor. No respiratory distress. No wheezes.No rhonchi. No rales. No retractions. Abdominal: Soft. Bowel sounds are normal. No distension. No mass. There is no tenderness. There is no rebound and no guarding. Musculoskeletal: Upper extremities and right lower extremity are normal. Left lower extremity: Hip, thigh, knee, lower leg, tibia, fibula are nontender. Ankle medial malleolus and lateral malleolus are nontender. Foot: Normal inspection. No tenderness of the heel calcaneus or hindfoot. She is tender over the 5th metatarsal in particular the proximal and. No tenderness over the medial aspect of the midfoot or over the arch. Forefoot and toes are nontender. Neurological: Alert. Normal strength. No cranial nerve deficit or sensory deficit. Coordination normal. GCS eye subscore is 4. GCS verbal subscore is 5. GCS motor subscore is 6. Skin: Skin is warm. No rash noted. Const: Vital Signs, click to edit/add: Vital Signs - 24 hr 09/14/23 16:00 09/14/23 20:09 09/14/23 20:11 Temperature 97.6 F 97.6 F 97.6 F Pulse Rate [Right Pulse Oximeter] 81 85 85 Respiratory Rate 18 18 18 Blood Pressure [Ri t Upper Arm] 109/65 115/68 115/68 Pulse Oximetry 97 97 Oxygen Delivery Me thod Room Air Room Air Course Vital Signs Vital signs: Initial Vital Signs Temperature 97.6 F 09/14/23 16:00 Temperature Source Temporal Artery Scan 09/14/23 16:00 Pulse Rate 81 09/14/23 16:00 Pulse Rhythm Regular 09/14/23 16:00 Pulse Strength 3+ Normal 09/14/23 16:00 Respiratory Rate 18 09/14/23 16:00 Blood Pressure 109/65 09/14/23 16:00 Blood Pressure Mean 79 09/14/23 16:00 Blood Pressure Position Sitting 09/14/23 16:00 Pulse Oximetry 97 09/14/23 16:00 Oxygen Delivery Method Room Air 09/14/23 16:00 Vital Signs Temperature 97.6 F 09/14/23 16:00 Pulse Rate 81 09/14/23 16:00 Respiratory Rate 18 09/14/23 16:00 Blood Pressure 109/65 09/14/23 16:00 Pulse Oximetry 97 09/14/23 16:00 Oxygen Delivery Method Room Air 09/14/23 16:00 Temperature 97.6 F 09/14/23 20:11 Pulse Rate 85 09/14/23 20:11 Respiratory Rate 18 09/14/23 20:11 Blood Pressure 115/68 09/14/23 20:11 Pulse Oximetry 97 09/14/23 20:09 Oxygen Delivery Method Room Air 09/14/23 20:09 Medical Decision Making MDM Narrative Medical decision making narrative: Pleasant 63-year-old female presenting to the ER today today for left foot pain affecting her lateral foot at the base of the 5th metatarsal that began yesterday if she did exercises with he heel raises up on her toes and got worse while she was walking briskly yesterday afternoon. She was concern for fracture. X-rays are obtained and are fortunately negative for any fracture. No evidence for Dominguez or dancer fracture at this time. No evidence for Lisfranc joint injury. She is neurovascularly intact in the foot. Discussed with the patient that is this is possibly a soft tissue injury such as to the tendons or ligaments attaching to her 5th metatarsal. Will place into a cam boot and put her on crutches to mobilize and give that foot a chance to rest. She will arrange close outpatient follow-up with the orthopedic clinic within 2-3 days. Precautions for return to the ER reviewed. Questions answered. She will treat the pain with [id number] medications. Fortunately no other injuries on the remainder of her exam. Imaging Data X-ray left foot: Attestation: I have reviewed the pertinent imaging results. Radiologist's impression: Findings/Impression: Bones: Alignment is normal. No displaced fractures or bone lesions. Joint spaces: Unremarkable. Soft tissues: Unremarkable. Discharge Plan Discharge Clinical Impression: Acute pain of left foot Patient Disposition: Home, Self-Care Condition: Stable Instructions: Foot Sprain (ED) Additional Instructions: As we discussed, please use Tylenol or ibuprofen if needed for pain. Try to keep your foot elevated at the level of your heart when possible. Use an ice pack for 20 minutes every 2-3 hours for the next couple of days (but not at night while you are sleeping). Where the foot braces/boot and use crutches to help keep weight off of your left foot to keep it from bending when you walk. Please follow-up with the [facility] for re-evaluation within the next 3-4 days. You can call [phone] tomorrow to arrange an ER follow-up appointment. If you have any problems, please come back to the ER right away to be rechecked. Prescriptions: No Action trazodone 50 mg tablet 100 mg PO QHS PRN Tyrvaya 0.03 mg/spray spray, metered, non-aerosol intranasal Patient Comments: [NO ORIGINAL SIG] cyclosporine 0.05 % dropperette ophthalmic (eye) lidocaine HCl [Lidocaine Viscous] 2 % solution PO tretinoin 0.025 % cream 1 applic topical QPM buspirone 15 mg tablet 15 mg PO BID propranolol 20 mg tablet 20 mg PO BID valacyclovir 1 gram tablet 1,000 mg PO 3XD triamcinolone acetonide 0.025 % cream 1 applic topical BID Qty: 15 0RF Rx Instructions: Apply small amount to affected area albuterol sulfate 90 mcg/actuation HFA aerosol inhaler 2 puff inhalation Q4-6H PRN (Reason: shortness of breath or wheezing) Qty: 8.5 0RF Magic Mouthwash (Lidocaine/Benadryl/Maalox) 120 mL suspension 5 ml PO Q4-6H PRN Rx Instructions: Lidocaine Viscous 2 % mucosal solution 40 mL; Maalox 200 mg-200 mg-20 mg/5 mL oral suspension 40 mL; Benadryl 12.5 mg/5 mL oral elixir 40 mL; Per 120 mL SWISH AND SPIT. MAY COMPOUND IF FIRST PRODUCT IS NOT AVAILABLE. liothyronine 5 mcg tablet 5 mcg PO .B.i.d. clobetasol 0.05 % ointment 1 applic TOPICAL .qod lorazepam 0.5 mg tablet 0.5 mg PO Q12H PRN melatonin 3 mg capsule 9 mg PO HS hydromorphone 2 mg Tablet 2 mg PO Q4H PRN5 Days Qty: 30 0RF Lactobacillus acidophilus 0.5 mg (100 million cell) Tablet 1 tab PO TIDWM 90 Days Qty: 90 0RF ondansetron 4 mg tablet,disintegrating 4 mg PO Q6H PRN (Reason: nausea and vomiting) Qty: 10 0RF escitalopram oxalate [Lexapro] 10 mg tablet 15 mg PO DAILY estradiol [Yuvafem] 10 mcg tablet 10 mcg vaginal 2XW Qty: 24 3RF Follow Up/Referrals: Nivia Bruno MD [Primary Care Provider] - Stand Alone Forms: Happy Inspector Info Instructions
--- OUTSIDE RECORDS SUMMARY | 2023-09-14 19:58 | XMS_ITS | Continuity of Care Document ---
Author Name Unknown Organization [facility] Address [address] [address] [place] [address] Phone Care Team Providers Care Research Methodologist Name Role Phone Tavia Horne Unavailable Unavailable [...] Provider Providers Copied on Encounter [facility] JENNIFER GUERRERO [address] [address], [place], [id number], [place] tel:[phone] [facility] No Information Edstrchantal Squires. [address] [facility], [facility] [address], [place], [place], [id number], [place]. tel:[phone] [facility] CESAR [address] [address], [place], [id number], [place] tel:[phone] [facility] Diverticulosis of colon (without mention of hemorrhage)Dvr tclos of lg int w/o perforation or abscess w/o bleeding No Information Referring Provider: Referral Self, USE FOR SELF REFERRALS. [facility] CES[place] [address] [address], [place], [id number], [place] tel:[phone] [facility] No Information 2 No Information Telephone E&M III 21-30 Min SUSU [facility], [address] [address], [place], [place], [id number], [place] tel:[phone] [facility] GI Symptoms or Concerns (chief complaint) Diverticulitis 2 Edstrom CESAR Squires. [address] [facility], [facility] [address], [place], [id number], [place]. tel:[phone] Referring Provider: Referral Self, USE FOR SELF REFERRALS. [facility], [address] [address], [place], [place], [id number], [place] tel:[phone] [facility] No Information 2 Link MD Null. [address] [facility] [address], [place], [id number], [place]. tel:[phone] [facility], [address] [address], [place], [id number], [place] tel:[phone] [facility] Diverticulosis of colon (without mention of hemorrhage)Per pinky history of colonic polypsDvtrcli of lg int w/o perforation or abscess w/o bleedingDvrtcl os of lg int w/o perforation or abscess w/o bleedingPerson al history of colonic polyps Aug-0 9 No Information Referring Provider: Nivia Bruno MD, [address] [place] [address], [address]. tel:[phone] [facility], [address] [address], [place], [id number], [place] tel:[phone] [facility] History of colon polypsDivertic ular disease of large intestineDvtrc li of lg int w/o perforation or abscess w/o bleedingDvrtcl os of lg int w/o perforation or abscess w/o bleedingPerson al history of colonic polyps - 5 No Information Referring Provider: Heladio Martins MD, [address] [place] [address], [address]. tel:[phone] [facility] Ind[facility], [address] [address], [place], [id number], [place] tel:[phone] [facility] LUQ Pain 4 Tatiana Ray. [address] [place] [address], [id number], [place]. tel:[phone] [facility], [address] [address], [place], [id number], [place] tel:[phone] [facility] Hiatal HerniaPolyp-in chalo/rect/stom- unc BehLUQ PainGastric Polyp-benignGa stric Polyp-benignLU Q PainHiatal Hernia 4 Nelson Ferris. [address] [place] [address], [id number], [place]. tel:[phone] Referring Provider: Heladio Martins MD, [address] [place] [address], [address]. tel:[phone] [facility], [address] [address], [facility] [place], [id number], [place] tel:[phone] [facility] LUQ Pain 4 Tatiana Ray. [address] [place] [address], [id number], [place]. tel:[phone] Referring Provider: Heladio Martins MD, [address] [place] [address], [address]. tel:[phone] Offic/outpt E&m Estab Mod-hi 2 [facility], [address] [address], [place], [place], [id number], [place] tel:[phone] [facility] LUQ PainDiarrhea 4 Tatiana Ray. [address] [place] [address], [id number], [place]. tel:[phone] Referring Provider: Heladio Martins MD, [address] [place] [address], [address]. tel:[phone] [facility] [place], [address] [address], [place], [id number], [place] tel:[phone] [facility] Diverticulosis Of ColonHx Of Digest Disease NecDiverticulo sis Of ColonHx Of Digest Disease Nec 3 No Information Referring Provider: Heladio Martins MD, [address] [place] [address], [place], [address]. tel:[phone] [facility], [address] [address], [place], [id number], [place] tel:[phone] [facility] Diverticulosis Of ColonDiverticu litis Of ColonDiverticu litis Of Colon 2 No Information Referring Provider: Heladio Martins MD, [address] [place] [address], [place], [address]. tel:[phone] [facility] CESAR, [address] [address], [place], [id number], [place] tel:[phone] [facility] Colon Cancer ScreeningPerso nal History Colon PolypsDivertic ulosis Of Colon 8 No Information Referring Provider: Daniel Griffin, [address] [place] [address], [place], [address]. tel:[phone] [facility], [address] [address], [place], [id number], [place] tel:[phone] [facility] Personal history colon polyps 6 No Information Offic Cons [facility], [address] [address], [place], [id number], [place] tel:[phone] [facility] Diverticulosis Of ColonPolyp-int es/rect/stom-u nc beh 6 [...] Registry Payers Payer name Insurance type Covered alliance party ID Authoriza tion(s) Medicare [facility] [id number] Blue Cross Medicare Supplement [id number] Social History Type Description Quantity Date Captured [...] 5 years ago, she was hospitalized at [facility] at which time there was evidence [...]
--- OUTSIDE RECORDS SUMMARY | 2023-09-14 19:58 | XMS_ITS | Continuity of Care Document ---
Author Name Unknown Organization [facility] Address [address] [place] [address] Phone Care Team Providers Care Sheep Sorter Name Role Phone Sanchez Lay MD Unavailable Unavailable Advance Directives Directive Yes / No Effective Date File Name No Information Encounters Encounter Description Practice Location Reason(s) For Visit Diagnoses Date Provider Providers Copied on Encounter [facility], [address], [place], [address], [place] tel:[phone] [facility], No Information Rosanne Bradford. [facility] [address], [place], [address], [place]. tel:[phone] Family History Family Member Type Diagnosis Age [...]
--- OUTSIDE RECORDS SUMMARY | 2023-09-14 19:58 | XMS_ITS | Continuity of Care Document ---
Author Name Unknown Organization [facility] rosa maria Address [address] [facility] [place] [address] Phone Care Team Providers Care Ecommerce Marketing Specialist Name Role Phone Will MD LARSON, Leif [...] Provider Providers Copied on Encounter [facility], [address] [place], [place] [address], [place], [id number] , [place] tel:[phone] [facility] No Information 2 Will Leif. [address] [place], [id number] , [place]. tel:[phone] [facility], [address] [place] [address] [place], [place], [id number] , [place] tel: [phone] [facility] No Information 1 Nolan Gilberto. [facility], [address], [place], [address], [place]. tel:[phone] OFFICE/OUTPA TIENT VISIT, [facility], [address] [place] [address] [place], [place], [id number] , [place] tel: [phone] [facility] Leg Pain (chief complaint) Encounter for therapeutic drug level monitoringLong term (current) use of opiate analgesicLow back pain, unspecifiedPain in left shoulderEncounter for screening for other disorderCausalgia of right lower limb 1 Nolan Gilberto. [facility], [address], [place], [address], [place]. tel:[phone] Referring Provider: Leif Walsh, [address] [place] [address] [place], [address] . tel:[phone] OFFICE/OUTPA TIENT VISIT, [facility], [address] [place] [address] [place], [place], [id number] , [place] [phone] [facility] back and hip pain (chief complaint) LumbagoCervicalgia -201 4 Scout Ortiz. [address] [place] [address] [address] [place], [id number] , [place]. [phone] Referring Provider: Leif Walsh, [address] [place] [address] [place], [address] . tel:[phone] Family History Family Member Type Diagnosis Age At Onset Father Problem (finding) back issues Payers Payer name Insurance type Covered libertarian ID Maci hampton(s) Medicare MB [id number] Social History Type Description Quantity Date Captured Comments Alcohol Use Details Unknown Caffeine Use Details Unknown Tobacco Use Status No Information Smoking Status No Information Sex Female Chief Complaint And Reason For Visit No Information Reason For Referral Reason For Referral No Information Plan Of Treatment Date Type Action Status Goal Order Annual PT. Due on due Goal Update Social History. Due o n due Goal ALT (SGPT). Due on due Goal OARS. Due on due Goal AST (SGOT). Due on due Goal Medication Reconciliation. D ue on due Goal PHQ-9. Due on du e Goal Height. Due on d ue Goal UDT. Due on due Goal LINING CLEANER Scanned. Due on due Goal Review Allergy List. Due on due Goal Creatinine. Due on due Goal CLAMP OPERATOR Paperwork. Due on due Goal Weight. Due on d ue Goal Tobacco Use. Due on due Goal AST (SGOT). Due on due Goal Creatinine. Due on due Goal LINING CLEANER Scanned. Due on due Goal Order Annual PT. Due on due Goal CLAMP OPERATOR Paperwork. Due on due Goal ALT (SGPT). Due on due Goal UDT. Due on due Goal OARS. Due on due Goal Order Annual PT. Due on due Goal UDT. Due on due Goal ALT (SGPT). Due on due Goal LINING CLEANER Scanned. Due on due Goal CLAMP OPERATOR Paperwork. Due on due Goal Creatinine. Due on due Goal OARS. Due on due Goal AST (SGOT). Due on due Goal Weight. Due on d ue Goal Height. Due on d ue Goal Tobacco Use. Due on due Goal PHQ-9. Due on du e Goal Update Social History. Due o n due Goal Medication Reconciliation. D ue on due Goal Review Allergy List. Due [...] pain referred by Dr. Tobias Martin through [facility]. This pain began after falling on ice and fracturing her R femur in 2018. [facility] did her initial trauma surgery at the time. Dr. Martin then completed bone grafting on her right femur recently and believes that her new femur hardware may be irritating her R hip hardware from a hip replacement in 1995. Denies any leg numbness or tingling and endorses swelling in her R thigh. She is following up at [place] when she is able to schedule. Pain is described as aching and stiff. Pain averages 7/10.In addition, she c/o neck and lower back pain that she believes is linked to a difference in leg lengths. Denies any lower back surgeries. Further carries a retirement dx of fibromyalgia. She has tried PT [...] RX on 05/08/[address] Mijares at [facility]. She takes 1-2 Dilaudid per month.Mrs. Brown is interested in pain management and medical cannabis certification through [facility]. No other concerns today. Functional Status Date Functional Assessmen t No Information Instructions Date Instruction Additional Infor mation Continue current medication Reviewed medications New medication is prescribed Follow exercise program Depression Screen Oswestry Score Assessments Type Assessment Date No Information Patient Care Teams Name Effective Dates (start - stop) Status Members No Information
--- OUTSIDE RECORDS SUMMARY | 2023-09-14 19:58 | XMS_ITS | Continuity of Care Document ---
Author Name Unknown Organization [facility] Address [address] [address] [place] [address] Care Team Providers Care Wool Fleece Grader Name Role Phone [place], [place] Unavailable Unav ailable Procedures Procedure Date Colono Pt Doc Pt W/o Advance Directives Directive Yes / No Effective Date File Name No Information Encounters Encounter Description Practice Location Reason(s) For Visit Diagnoses Date Provider Providers Copied on Encounter [facility], [address] [address], [place], [place], [id number], [facility] No Information [facility]. [address] [address], [place], [place], [id number], . tel:[phone] Family History Family Member Type Diagnosis Age [...]
--- OUTSIDE RECORDS SUMMARY | 2023-09-14 19:59 | XMS_ITS | Encounter Summary ---
Author Name Unknown Organization [facility] Address [facility] [place] [address] Care Team Providers Care Project Scheduler Name Role Phone Heladio Martins MD Primary Care Provider Kelsi Glez MD Unavailable [phone] Nivia Bruno MD Primary Care Provider [phone] Encounter Details Date Type Department Care Team (Latest Contact Info) Description 03/06/2021 [facility] Treatment Plan [facility] [address] [place] [phone] Dav Tiereny MD [address] [place] [address] Megan Ruiz, SHANNON Major depressive [...] documented as of this encounter Care Teams Project Scheduler Relationship Specialty Start Date End Date Heladio Martins MD PCP - General Internal Medicine 03/05/16 03/21/21 Nivia Bruno MD [address] [place] [address] PCP - General 03/22/21 Kelsi Handy MD [address] [place] [address] Assigned OBGYN Provider 04/23/20 3 documented as of this encounter
--- OUTSIDE RECORDS SUMMARY | 2023-09-14 19:59 | XMS_ITS | Encounter Summary ---
Author Name Unknown Organization [place] Address [facility] [place] [address] Care Team Providers Care Mandarin Tutor Name Role Phone Kelsi Handy MD Unavailable [phone] Nivia Bruno MD Primary Care Provider [phone] Encounter Details Date Type Department Care Team ([facility] Contact Info) Description 09/25/2021 Telephone [facility] Behavioral Health Intake [address] [place] [phone] Generic, Behavioral Intake, Social History Tobacco Use [...] Patient Name: ?? Location of programming: [facility] Start Date: 09/27/21 Group (BHxxxxx on #days of the week# at #start time to end time#): 55+ clinic 1 Provider (name of MD):kerry Number of visits to be scheduled: 1 Duration of Appointment in minutes: 120 mins Visit Type (Robert - 8254 / Zoom - 3024 / In-person or Treatment - 870) :zoom 2657 Additional notes: documented in this encounter Plan of Treatment Not on file documented as of this encounter Visit Diagnoses Not on filedocumented in this encounter Additional Health Concerns Assessment Noted Time PHQ-9 Depression Total Score: 7 06/14/19 22 10:59 AM ORTHODONTIST ASSISTANT documented as of this encounter Care Teams Mandarin Tutor Relationship Specialty Start Date End Date Nivia Bruno MD [address] [place] [address] PCP - General 03/22/21 Kelsi Handy MD [address] [place] [address] Assigned OBGYN Provider 04/23/20 3 documented as of this encounter
--- OUTSIDE RECORDS SUMMARY | 2023-09-14 19:59 | XMS_ITS | Encounter Summary ---
Author Name Unknown Organization [facility] Address [address] [address] Care Team Providers Care Tool Grinder Set Up Operator Gear Name Role Phone Needs Pcp, Assignment Primary Care Provider [phone] Encounter Details Date Type Department Care Team (Late st Contact Info) Description 07/12/2019 Lab Requisition [facility] [address] [place] [place] [address] Lul Hunter MD [address] [place] [address] Encounter for surgical aftercare following surgery on [...] as of this encounter Plan of Treatment Upcoming Encounters Date Type Department Care Team (Late st Contact Info) Description 09/24/2023 12:45 PM CDT Appointment [facility] [address] [place] [address] Leif Stewart PA-C [address] [facility] [place] [address] documented as of this encounter Procedures Procedure Name Priority Date/Time Associated Diagnosis Comments BASIC METABOLIC PANEL Routine 07/13/2019 7:00 AM BEVELING AND EDGING MACHINE OPERATOR Encounter for surgical aftercare following surgery on the nervous system COMPLETE BLOOD COUNT-NO DIFF Routine 07/13/2019 7:00 AM BEVELING AND EDGING MACHINE OPERATOR Encounter for surgical aftercare following surgery on the nervous system documented in this encounter Results * (ABNORMAL) Basic Metabolic Panel (07/13/2019 7:00 AM BEVELING AND EDGING MACHINE OPERATOR) Sodium 136 136 - 145 mmol/L 07/13/2019 12:35 PM BEVELING AND EDGING MACHINE OPERATOR [facility] Potassium 4.7 3.5 - 5.1 mmol/L 07/13/2019 12:35 PM BEVELING AND EDGING MACHINE OPERATOR [facility] Chloride 100 98 - 109 mmol/L 07/13/2019 12:35 PM BEVELING AND EDGING MACHINE OPERATOR [facility] CO2 27 20 - 29 mmol/L 07/13/2019 12:35 PM BEVELING AND EDGING MACHINE OPERATOR [facility] Anion Gap 9 7 - 16 mmol/L 07/13/2019 12:35 PM BEVELING AND EDGING MACHINE OPERATOR [facility] Calcium 9.2 8.4 - 10.4 mg/dL 07/13/2019 12:35 PM BEVELING AND EDGING MACHINE OPERATOR [facility] BUN 18 7 - 26 mg/dL 07/13/2019 12:35 PM BEVELING AND EDGING MACHINE OPERATOR [facility] Creatinine 0.76 0.55 - 1.02 mg/dL 07/13/2019 12:35 PM BEVELING AND EDGING MACHINE OPERATOR [facility] GFR, Estimated >60 >60 mL/min/1.7 3m2 07/13/2019 12:35 PM BEVELING AND EDGING MACHINE OPERATOR [facility] GFR, Est If >60 >60 mL/min/1.7 3m2 07/13/2019 12:35 PM BEVELING AND EDGING MACHINE OPERATOR [facility] Glucose 105(H) 70 - 100 mg/dL 07/13/2019 12:35 PM BEVELING AND EDGING MACHINE OPERATOR [facility] Comment:The given reference range is for the fasting state. Non-fasting reference range for glucose is 70 - 180 mg/dL. Hours Fasting Unknown 07/13/2019 12:35 PM BEVELING AND EDGING MACHINE OPERATOR [facility] Blood Venipuncture / Unknown 07/13/2019 7:00 AM BEVELING AND EDGING MACHINE OPERATOR 07/13/2019 10:40 AM BEVELING AND EDGING MACHINE OPERATOR Lul Hunter MD [facility] [address] [place], [place] [address] * (ABNORMAL) Complete Blood Count-No Diff (07/13/2019 7:00 AM BEVELING AND EDGING MACHINE OPERATOR) WBC 4.7 3.5 - 10.5 x10(9)/L 07/13/2019 11:17 AM BEVELING AND EDGING MACHINE OPERATOR [facility] RBC 3.19(L) 3.90 - 5.03 x10(12)/L 07/13/2019 11:17 AM BEVELING AND EDGING MACHINE OPERATOR [facility] Hemoglobin 10.1(L) 12.0 - 15.5 g/dL 07/13/2019 11:17 AM BEVELING AND EDGING MACHINE OPERATOR [facility] HCT 31.2(L) 34.9 - 44.5 % 07/13/2019 11:17 AM BEVELING AND EDGING MACHINE OPERATOR [facility] MCV 97.8 80.0 - 100.0 fL 07/13/2019 11:17 AM BEVELING AND EDGING MACHINE OPERATOR [facility] MCH 31.7 27.6 - 33.3 pg 07/13/2019 11:17 AM BEVELING AND EDGING MACHINE OPERATOR [facility] MCHC 32.4 31.5 - 35.2 g/dL 07/13/2019 11:17 AM BEVELING AND EDGING MACHINE OPERATOR [facility] RDW 11.7(L) 11.9 - 15.5 % 07/13/2019 11:17 AM BEVELING AND EDGING MACHINE OPERATOR [facility] Platelets 221 150 - 450 x10(9)/L 07/13/2019 11:17 AM BEVELING AND EDGING MACHINE OPERATOR [facility] Automated NRBC 0 <=0 /100 WBC 07/13/2019 11:17 AM BEVELING AND EDGING MACHINE OPERATOR [facility] Blood Venipuncture / Unknown 07/13/2019 7:00 AM BEVELING AND EDGING MACHINE OPERATOR 07/13/2019 10:44 AM BEVELING AND EDGING MACHINE OPERATOR Lul Hunter MD [facility] [address] [place] [address], [facility] documented in this encounter Visit Diagnoses Diagnosis Encounter for surgical aftercare following surgery on the nervous system documented in this encounter Care Teams Tool Grinder Set Up Operator Gear Relationship Specialty Start Date End Date [place] [address] PCP - General 02/28/21 documented as of this encounter
--- OUTSIDE RECORDS SUMMARY | 2023-09-14 19:59 | XMS_ITS | Encounter Summary ---
Author Name Unknown Organization [facility] Address [address] [place] [address] Care Team Providers Care Repairer Shoe Sticks Name Role Phone Needs Pcp, Assignment Primary Care Provider [phone] Reason for Visit * Auth/Cert Specialty Diagnoses / Procedures Referred By Contac t Referred To Contact Diagnoses Diarrhea of presumed infectious origin Fibromyalgia Diarrhea of presumed infectious origin Fibromyalgia Diarrhea of presumed infectious origin Fibromyalgia Referral ID Status Reason Start Date Expiration Date Visits Re quested Visits Authorized [id number] 1 1 Encounter Details Date Type Department Care Team (Latest Contact Info) Description 07/15/2019 Lab Requisition [facility] [address] [facility] [place] [address] Lul Hunter MD [address] [place] [address] Enterocolitis due to Clostridium difficile, not specified [...] Info) Description 09/24/2023 12:45 PM CDT Appointment [facility] [address] [place] [address] Leif Stewart PA-C [address] [facility] [place], [place] [address] documented as of this encounter Procedures Procedure Name Priority Date/Time Associated Diagnosis Comments C.DIFFICILE TOXIN,MOLECULAR DETECTION Routine 07/15/2019 10:00 PM NEGATIVE CHECKER Enterocolitis due to Clostridium difficile, not specified as recurrent documented in this encounter Results * (ABNORMAL) C.Difficile Toxin,Molecular Detection, (07/15/2019 10:00 PM NEGATIVE CHECKER) C.difficile by PCR Detected( A) Not Detected 07/15/2019 11:30 PM NEGATIVE CHECKER [facility] Stool Non-blood Collection / Unknown 07/15/2019 10:00 PM NEGATIVE CHECKER 07/15/2019 10:24 PM NEGATIVE CHECKER Narrative [facility] - 07/15/2019 11:30 PM NEGATIVE CHECKER Methodology: Qualitative real-time PCR assay to detect the Clostridium difficile toxin B gene. Lul Hunter MD LAB[facility]1 [facility] [address] [place] [address], [facility] documented in this encounter Visit Diagnoses Diagnosis Enterocolitis due to Clostridium difficile, not specified as recurrent documented in this encounter Care Teams Repairer Shoe Sticks Relationship Specialty Start Date End Date Needs PcpBertha [facility] [place] [address] PCP - General 02/28/21 documented as of this encounter
--- OUTSIDE RECORDS SUMMARY | 2023-09-14 19:59 | XMS_ITS | Encounter Summary ---
Author Name Unknown Organization [facility] Address [address] [place] [address] Care Team Providers Care Weather Observer Name Role Phone Kelsi Handy MD Unavailable [phone] Nivia Bruno MD Primary Care Provider [phone] Encounter Details Date Type Department Care Team ([facility] st Contact Info) Description 06/13/2021 Telephone [facility] Behavioral Health Intake [address] [place] [phone] Generic, Behavioral Intake, Social History Tobacco Use [...] KETTY Lynn sent at 06/29/2021 11:41 AM METAL BURNISHER ----- Regarding: new start Clinic 1 on 07/05 Scheduling Request Patient Name: Juliette Brown Location of programmin+ Start Date: June Group: Clinic 1 on at 1:00 to 3:00PM Attending Provider (MD): 12 Number of visits to be scheduled: 12 Duration of Appointment in minutes: 120 min Visit Type: Zoom - 2657 Additional notes: L BURNISHER * Telephone Encounter - Jen Serrano - 06/13/2021 9:38 AM CST ----- Message from SHANNON Warner sent at 06/13/2021 9:12 AM METAL BURNISHER ----- Regarding: add appointment Scheduling Request Patient Name: ?? Location of programming: [facility] 55+ Start Date:06/13/21 Group (BHxxxxx on #days of the week# at #start time to end time#): 55+ B1 M,W,F 1-4pm Provider (name of MD): Niall Number of visits to be scheduled: 1 Duration of Appointment in minutes: 180 mins Visit Type (Robert - 6292 / Zoom - 8967 / In-person or Treatment - 870) :2657-zoom Additional notes: L BURNISHER documented in this encounter Plan of Treatment Not on file documented as of this encounter Visit Diagnoses Not on filedocumented in this encounter Additional Health Concerns Assessment Noted Time PHQ-9 Depression Total Score: 7 06/14/19 22 10:59 AM METAL BURNISHER documented as of this encounter Care Teams Weather Observer Relationship Specialty Start Date End Date Nivia Bruno MD [address] [place] [address] PCP - General 03/22/21 Kelsi Handy MD [address] [place] [address] Assigned OBGYN Provider 04/23/20 3 documented as of this encounter
--- OUTSIDE RECORDS SUMMARY | 2023-09-14 19:59 | XMS_ITS | Encounter Summary ---
Author Name Unknown Organization [facility] Address [address] [place] [address] Care Team Providers Care Asphalt Plant Operator Name Role Phone Needs Pcp, Assignment Primary Care Provider [phone] Reason for Visit * Reason Comments QUESTIONS, GENERAL Encounter Details Date Type Department Care Team (Late st Contact Info) Description 09/03/2023 Telephone [facility] [address] [facility] [place] [address] Leif Stewart PA-C [address] [facility] [address] [place] [id number] QUESTIONS, GENERAL Social History Tobacco Use Types Packs/Day Years Used Date Smoking Tobacco: Former Smokeless Tobacco: Never Alcohol Use Standard Drinks/Week Comments No 0 (1 standard drink = 0.6 oz pur e alcohol) Sex and Gender Information Value Date Recorded Sex Assigned at Not on file Gender Identity Not on file Sexual Orientation Not on file documented as of this encounter Nursing Notes * Veronica Espinoza RN - 09/04/2023 1:13 PM CDT Spoke to patient. She was unable to have her DEXA scan as it has not been two years. She is rescheduled for 09/21. Moved appointment to 09/23 and she will have imaging pushed. No further questions. * Veronica Espinoza RN - 09/03/2023 12:33 PM CDT Last office 06/14/2019. 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 She is having a DEXA scan completed on 09/02 which she will have pushed over. She also had a steroid injection into her shoulder this morning, and wants to know if that will skew the results of the DEXA or if itis recommended that she reschedule. Consult scheduled with Lief for 09/09. Will route to Leif regarding DEXA/steroid question. * Amy Mckeon - 09/03/2023 11:53 AM CDT GENERAL QUESTIONS How may we help you today? Patient requesting a call back from providers care team. Describe your symptoms/concerns: Patient would like a call back to discuss DEXA scan orders, and ifpatient is able to receive orders or if they will need to reestablish care. No additional information was provided to health science writer. Please advise. Have you been seen for this recently?: No If we are unable to reach you can we leave a detailed message on your voicemail? Yes If we are unable to reach you can we send you a message in [email or web address]? Yes [Accounting Support Specialist/Manager Inside: Relay to patient; We make every effort to get back to you sameday, however it may take 1-2 business days depending on the nature of the communication.] documented in this encounter Plan of Treatment Upcoming Encounters Date Type Department Care Team (Late st Contact Info) Description 09/24/2023 12:45 PM CDT Appointment [facility] [address] [place], [place] [address] Leif Stewart PA-C [address] [facility] [place] [id number] documented as of this encounter Visit Diagnoses Not on filedocumented in this encounter Care Teams Asphalt Plant Operator Relationship Specialty Start Date End Date Needs Pcp, [place] [address] PCP - General 02/28/21 documented as of this encounter
--- OUTSIDE RECORDS SUMMARY | 2023-09-14 19:59 | XMS_ITS | Clinical Summary ---
Author Name Unknown Organization [place] Address [address] [place] [id number] Care Team Providers Care Organ Pipe Finisher Name Role Phone Nivia Bruno MD Primary Care Provider [phone] Allergies Active Allergy Reactions Criticality Noted Date Comments Gold Anaphylaxis High 04/15/2016 As treatment for RA Medications Medication Sig Dispensed Refills Start Date End Date Status cholecalciferol (VITAMIN D-[address]) 1000 UNITS TABS Take 1,000 Units by mouth 06/10/2011 Active lidocaine (LIDODERM) 5 % Patch 1 patch 10/17/2015 Active melatonin 3 MG tablet Take 3 mg by mouth Active Multiple Vitamin (MULTI-VITAMINS) TABS Take 1 tablet by mouth 07/22/2014 Active Raymond-3 1000 MG CAPS 04/02/2016 Acti ve Saline (SODIUM CHLORIDE) 0.65 % SOLN [place] 1 spray in nostril 01/28/2015 Active traZODone (DESYREL) 50 MG tablet Take 50 mg by mouth 04/02/2016 Active clobetasol (TEMOVATE) 0.05 % external [...] 10 mg by mouth 2 times daily 07/05/2020 Active 5-Hydroxytryptophan (5-HTP) 100 MG CAPS Take 100 mg by mouth 2 times daily Active sertraline (ZOLOFT) 50 MG tablet Take 50 mg by mouth daily Active LORazepam (ATIVAN) 0.5 MG tabletIndications:Se liyah episode of recurrent major depressive disorder, without psychotic features (H),Anxiety Take 1 tablet (0.5 mg) by mouth 2 times daily as needed for anxiety 30 tablet 1 05/14/2021 Active melatonin 5 MG tablet Take 10 mg by mouth Active Active Problems Problem Noted Date Diagnosed [...] 03/21/2021, Additional history exists COVID-19 Vaccine ( season) 2023 02/21/2021, 08/09/2020, 07/19/2020 MAMMO SCREENING 05/10/2023 05/10/2021 INFLUENZA VACCINE (Season Ended) 2024 03/27/2021, 02/24/2020, 02/07/2014, Additional history exists DTAP/TDAP/TD IMMUNIZATION (6 - Td or Tdap) [...] on patient's age to complete this topic Procedures Procedure Name Priority Date/Time Associated Diagnosis Comments BASIC METABOLIC PANEL Routine 06/23/2017 6:00 AM [facility] AFF HEMOGRAM/PLATELET Routine 01/08/1999 1:14 PM CDT Clifford Prince Temporal Lobe (H) Chemotherapy Session from Last 3 Months or Most Recently Relevant to Health Maintenance Results * Basic metabolic panel (06/23/2017 6:00 AM [facility]) Sodium 139 136 - 145 mmol/L 06/23/2017 10:13 AM [facility] Potassium 4.2 3.5 - 5.0 mmol/L 06/23/2017 10:13 AM [facility] Chloride 103 98 - 107 mmol/L 06/23/2017 10:13 AM [facility] Carbon Dioxide (CO2) 29 22 - 31 mmol/L 06/23/2017 10:13 AM [facility] Anion Gap 7 5 - 18 mmol/L 06/23/2017 10:13 AM [facility] Glucose 105 70 - 125 mg/dL 06/23/2017 10:13 AM [facility] Calcium 9.4 8.5 - 10.5 mg/dL 06/23/2017 10:13 AM [facility] Urea Nitrogen 16 8 - 22 mg/dL 06/23/2017 10:13 AM [facility] Creatinine 0.69 0.60 - 1.10 mg/dL 06/23/2017 10:13 AM [facility] GFR Estimate If Black >60 >60 mL/min/1.7 3m2 06/23/2017 10:13 AM [facility] GFR Estimate >60 >60 mL/min/1.7 2 06/23/2017 10:13 AM [facility] Blood specimen (specimen) STRUCTURE OF LEFT UPPER LIMB / Unknown Venipuncture / Unknown 06/23/2017 6:00 AM [facility] 06/23/2017 9:50 AM [facility] Narrative [facility] - 06/23/2017 10:13 AM [facility] Fasting Glucose reference range is 70-99 mg/dL per [place] [employer] (ADA) guidelines. Rosmery Simpson MD LAB - BLOOD ORDER KAYLEN Performing Organization Address [facility] Co de Phone Number [facility] [id number] [place] [address] LABORATORY [address] [address] * (ABNORMAL) HEMOGRAM W/ PLATELET COUNT (01/08/1999 1:14 PM CDT) WBC 2.6(A) 4.3 - 11 Thousand/CU. MM [facility] RBC Count 4.14(A) 4.2 - 5.4 Thousand/CU. MM [facility] Hemoglobin 12.5 12 - 16 G/DL [facility] Hematocrit 36.3(A) 38 - 47 Percent [facility] MCV 87.7 82 - 100 FL [facility] MCH 30.2 26 - 33 PG [facility] MCHC 34.4 31 - 36 PERCENT [facility] Platelet Count 79.0(A) 150 - 375 Thousand/CU. MM [facility] Whole blood specimen (specimen) 01/08/1999 1:14 PM CDT Mar Reyes MD LABORATORY Performing Organization Address City/[facility]/ZIP Co de Phone Number [facility] from Last 3 Months or Most Recently Relevant to Health Maintenance Advance Directives For more information, please contact: [phone] * Full Code (Latest Code Status on File) Date Activated Date Inactivated Comments 04/16/2016 1:58 AM 04/22/2016 3:55 PM Care Teams Organ Pipe Finisher Relationship Specialty Start Date End Date Nivia Bruno MD PCP - General 03/22/21
--- OUTSIDE RECORDS SUMMARY | 2023-09-14 19:59 | XMS_ITS | Clinical Summary ---
Author Name Unknown Organization [employer] Address [place], [place] [address] Care Team Providers Care Day Care Assistant Name Role Phone Nivia Bruno MD Primary Care Provider Lisa Thakur RN Unavailable [phone] Judie Carreno PharmD Unavailable [phone] Allergies Active Allergy Reactions Criticality Noted Date [...] hours if needed. 0 07/29/19 20 Active lidocaine 5 % topical patchIndications:L umbar [...] injury due to substance overdose Inhale 1 [place] into affected nostril(s) each time if needed [...] Apple Cider Vinegar - temporarily ran out [place] 3 fatty acids (brand unknown) Body Balance [...] daily. 241 Tablet 1 07/29/19 24 Active traZODone (DESYREL) 50 mg tabletIndications: Primary insomnia TAKE 1 TO 2 TABLETS (50-100 MG) BY MOUTH AT BEDTIME NEEDED FOR SLEEP 180 Tablet 08/11/19 24 Active cyclobenzaprine (FLEXERIL) 5 mg tablet Take 2.5 mg by mouth at bedtime if needed for Muscle Spasm. 08/11/19 24 Active clobetasol 0.05% (TEMOVATE 0.05% OINTMENT) 0.05 % ointmentIndication s:Lichen sclerosus APPLY TOPICALLY TO AFFECTED AREA(S)TWO TIMES DAILY NEEDED TO LICHEN SCLEROSUS IN VAGINAL AREA. 60 g 08/25/19 24 Active clobetasol 0.05% (TEMOVATE 0.05% OINTMENT) 0.05 % ointmentIndication s:Lichen sclerosus Apply topically to affected area(s) two times daily. As needed to lichen sclerosus in vaginal area. 120 g 1 06/26/19 23 024 Discontinued rOPINIRole (REQUIP) 0.25 mg tabletIndications: Restless leg syndrome Take 0.25mg by mouth 2-3 hours before bedtime. 30 Tablet 08/06/19 24 024 Discontinued(*M ed complete/Regime n complete/Level of care change) Hospital, Clinic, or Other Facility Administered Medication Ordered Dose Route Frequency Start Date End Date Status betamethasone acet,sod phos 12 mg injection (CELESTONE SOLUSPAN)Indications:Chron ic right shoulder pain,Bursitis of right shoulder,Nontraumatic complete tear of right rotator cuff 12 mg IArtic ONE TIME 09/03/2023 09/03/2023 Ended Active Problems Problem Noted Date Diagnosed Date [...] Pulmonary nodules 05/23/2017 Overview: On CT at hospital . Recommend follow up. Stable on chest [...] Encounters Date Type Department Care Team Description 09/12/2023 2:00 PM CDT Procedure Only [facility] [address] [facility] [place] [address] Tyler Parson L Ac Acupuncture 09/12/2023 Travel 09/09/2023 1:00 PM CDT Phone Office Visit [facility] [place] [address] Keiko Downs, AGRICULTURAL EXTENSION SPECIALIST Individual Therapy; Phone Visit 09/09/2023 Travel 09/05/2023 1:30 PM CDT Procedure Only [facility] [address] [place] [address] Tyler Parson L Ac Acupuncture 09/05/2023 Travel 09/04/2023 Patient Outreach [facility] - Advanced Care Team [address] [place] [address] Lisa Thakur, algology teacher Management (Care Coordination) 09/03/2023 8:10 AM CDT Procedure Only [facility] [address] [place] [address] Facundo Mijares MD Procedure (Right shoulder subacromial and ... 09/03/2023 Telephone [facility] [address] [place] [address] Nivia Bruno MD Questions (RECLASSIFYING DXA SCAN) 09/03/2023 Patient Outreach [address] [address] Judie Carreno PharmD Pharmacist Medication Management (Returning Call/Voicemail) 09/03/2023 Travel 09/02/2023 1:00 PM CDT Phone Office Visit [facility] [address] [place] [address] Keiko Downs, AGRICULTURAL EXTENSION SPECIALIST Individual Therapy; Phone Visit 09/02/2023 Telephone [facility] [address] [place] [phone] Booker Lloyd MD CALL BACK 09/02/2023 Telephone [facility] [address] [place] [phone] Booker Lloyd MD Questions 09/02/2023 Telephone [facility] [address] [place] [address] Facundo Mijares MD Questions 09/01/2023 11:30 AM CDT Pharmacist Medication Management [address] [address] Judie Carreno PharmD Pharmacist Medication Management (CMR follow-up - [facility] patient - RLS/Mood) 09/01/2023 Travel 08/29/2023 2:00 PM CDT Procedure Only [facility] [address] [facility] [place] [address] Tyler Parson L Ac Acupuncture (NO TREATMENT TODAY. ) 08/29/2023 Travel 08/29/2023 Patient Outreach [facility] [address] [place] [address] Judie Carreno PharmD Pharmacist Medication Management (Lexapro questions - reschedule appointment) 08/28/2023 3:00 PM CDT Patient Outreach [facility] - Advanced Care Team [address] [place] [address] Lisa Thakur algology teacher Management (Follow up Outreach) 08/27/2023 Telephone [facility] [address] [place] [address] Facundo Mijares MD CALL BACK (right shoulder cortisone injection) 08/22/2023 2:00 PM CDT Procedure Only [facility] [address] [place] [address] Tyler Parson L Ac Acupuncture 08/22/2023 Orders Only [facility] Scanner 1 scan: (1-Ord) INCOMING RECORDS-MRI, [facility], 08/22/2023 08/22/2023 Refill [facility] [address] [place] [address] Nivia Bruno MD Refill Request (Clobetasol 0.05%) 08/22/2023 Travel 08/22/2023 Orders Only [facility] [place] [address] [place] [phone] Nivia Bruno MD 2 scans: (2-Ord) [place], HEAD/BRAIN WO CONTRAST, 08/18/2023 08/21/2023 3:40 PM CDT Office Visit [facility] [address] [place] [address] Nivia Bruno MD Urinary Problem (Urgency and frequency, 3 days); Referral 08/20/2023 1:00 PM CDT Pharmacist Medication Management [facility] [address] [place] [address] Judie Carreno PharmD Pharmacist Medication Management (CMR follow-up - [facility] patient - neuro) 08/20/2023 Travel 08/19/2023 1:00 PM CDT Phone Office Visit [facility] [address] [place] [address] Keiko Downs, [facility] Individual Therapy; Phone Visit; Trmt Plan 08/19/2023 Travel 08/18/2023 Orders Only [facility] Scanner 1 scan: (1-Ord) [facility], ANGIO NECK WO CON, 08/18/2023 08/18/2023 Orders Only [facility] Scanner 1 scan: (1-Ord) [place], TMJ WO CONTRAST, 08/18/2023 08/15/2023 2:00 PM CDT Procedure Only [facility] [address] [place] [address] Tyler Parson L Ac Acupuncture 08/15/2023 Telephone [facility] [address] [place] [address] Nivia Bruno MD LETTER REQUEST (Massage ) 08/15/2023 Travel 08/15/2023 Telephone [facility] [place] [address] [phone] Norberto Pretty MD Referral (For MRA neck and MRI for Head) 08/14/2023 Patient Outreach [place] [address] [place] [address] Judie Carreno PharmD Pharmacist Medication Management (Statin reaction) 08/14/2023 Telephone [facility] [place] [facility] [address] [place] [address] Norberto Pretty MD Medication Management (gadolinium/) 08/14/2023 Telephone [facility] [address] [place] [address] Regan Urias MD Questions (Gadolinium Allergy) 08/12/2023 1:00 PM CDT Phone Office Visit [facility] [address] [place] [address] Keiko Downs, [facility] Individual Therapy; Phone Visit 08/12/2023 Orders Only [address] [address] Nivia Bruno MD Outside Order (Ordered by Booker Jewell ) 08/12/2023 Patient Outreach [facility] - [facility] Care Team [address] [place] [address] Lisa Thakur algology teacher Management (Care Coordination) 08/12/2023 Travel 08/11/[address] [address] Freda Serrano MD Medication Management 08/11/[address] [address] Freda Serrano MD Refill Request (Trazodone) 08/08/2023 1:30 PM CDT Procedure Only [address] [address] Tyler Parson L Ac Acupuncture 08/08/2023 Travel 08/06/2023 11:30 AM CDT Pharmacist Medication Management [facility] [address] [place] [address] Judie Carreno PharmD Pharmacist Medication Management (CMR follow-up - [facility] patient - drowsiness) 08/06/2023 Travel 08/05/2023 2:00 PM CDT Patient Outreach [facility] Care Team [address] [place] [address] Lisa Thakur algology teacher Management (Follow up Outreach) 08/01/2023 3:20 PM CDT Ancillary Procedure [facility] [address] [place] [address] 08/01/2023 2:00 PM CDT Procedure Only [facility] [address] [place] [address] yTler Parson L Ac Acupuncture 08/01/2023 Travel 07/30/2023 1:00 PM CDT Office Visit [facility] [place] [facility] [address] [facility] [address] Norberto Pretty MD Consult (Facial twitching Ref: Dr. Bruno /Labs 05/16/23) 07/30/2023 Travel 07/29/2023 11:30 AM CDT Phone Office Visit [facility] [place] [phone] Keiko Downs [facility] Individual Therapy; Phone Visit 07/29/2023 10:15 AM CDT Phone Office Visit [facility] [place] [address] Freda Serrano MD Telehealth; Medication Management 07/29/2023 Telephone [place] [address] [facility] [place] [address] Freda Serrano MD Error-please disregard 07/29/2023 Travel 07/25/2023 1:30 PM CDT Procedure Only [facility] [address] [facility] [place] [address] Tyler Parson L Ac Acupuncture 07/25/2023 Travel 07/22/2023 Telephone [facility] [address] [facility] [place] [phone] Keiko Downs [facility] Questions (Pt looking to speak with Provider directly.) 07/22/2023 Telephone [facility] [place] [address] Nivia Bruno MD Error-please disregard 07/22/2023 Travel 07/18/2023 2:00 PM AG SERVICE MANAGER Procedure Only [facility] [address] [facility] [address] Tyler Parson L Ac Acupuncture 07/18/2023 Travel 07/17/2023 2:00 PM AG SERVICE MANAGER Patient Outreach [facility] - Advanced Care Team [address] [place] [address] Lisa Thakur, algology teacher Management (Follow up Outreach) 07/17/2023 Telephone [facility] [address] [facility] [address] Nivia Bruno MD Medication Management 07/15/2023 1:00 PM AG SERVICE MANAGER Phone Office Visit [facility] [address] [facility] [phone] Keiko Downs AGRICULTURAL EXTENSION SPECIALIST Individual Therapy; Phone Visit 07/15/2023 Travel 07/11/2023 1:00 PM AG SERVICE MANAGER Procedure Only [facility] [address] [facility] [address] Tyler Parson L Ac Acupuncture 07/11/2023 Travel 07/09/2023 Orders Only [facility] [address] [place] [address] Jyoti Sellers PA <No scans attached> 07/08/2023 1:00 PM AG SERVICE MANAGER Phone Office Visit [facility] [address] [facility] [phone] Keiko Downs AGRICULTURAL EXTENSION SPECIALIST Individual Therapy; Phone Visit 07/08/2023 11:45 AM AG SERVICE MANAGER Orders Only [facility] [address] [facility] [address] Lab, [facility] 07/08/2023 10:25 AM AG SERVICE MANAGER Office Visit [facility] [address] [facility] [address] Nivia Bruno MD Eye Problem (twitching) 07/08/2023 Travel 07/04/2023 2:30 PM AG SERVICE MANAGER Patient Outreach [facility] - Advanced Care Team [address] [place] [address] Lisa Thakur, algology teacher Management (Follow up Outreach) 07/02/2023 Telephone [facility] [address] [place] [address] Nivia Bruno MD Questions (appointment ) 07/02/2023 Telephone [facility] [address] [place] [address] Nivia Bruno MD Lab (Orders for complete metabolic panel) 07/01/2023 11:15 AM AG SERVICE MANAGER Phone Office Visit [address] [phone] Keiko Downs, [facility] Individual Therapy; Phone Visit 07/01/2023 Telephone [facility] [address] [place] [address] Nivia Bruno MD RETURNING CALL (UNABLE TO REACH CLINICAL STAFF) 07/01/2023 Travel 06/27/2023 3:00 PM AG SERVICE MANAGER Pharmacist Medication Management [address] [address] Judie Carreno, Zoraida Pharmacist Medication Management (CMR follow-up - ACT patient - medication questions) 06/27/2023 1:30 PM AG SERVICE MANAGER Procedure Only [address] [address] Tyler Parson L Ac Acupuncture 06/27/2023 Travel 06/26/2023 1:30 PM AG SERVICE MANAGER Patient Outreach [facility] - [facility] Care Team [address] [place] [address] Tosha Mcguire LSW Complex Care Management (SW f/u) 06/25/2023 11:00 AM AG SERVICE MANAGER Office Visit [address] [address] Jyoti Sellers PA Follow Up 06/25/2023 Travel 06/24/2023 11:15 AM AG SERVICE MANAGER Phone Office Visit [address] [phone] Keiko Downs, [facility] Individual Therapy; Phone Visit 06/24/2023 10:15 AM AG SERVICE MANAGER Phone Office Visit [facility] [address] [place] [address] Freda Serrano MD Medication Management; Telehealth 06/24/2023 Travel 06/23/2023 Refill [facility] [address] [place] [address] Freda Serrano MD Refill Request (busPIRone (BUSPAR) 15 mg tablet) 06/19/2023 1:30 PM AG SERVICE MANAGER Patient Outreach [facility] - [facility] Care Team [address] [place] [address] Lisa Thakur, algology teacher Management (Follow Up Outreach) 06/18/2023 Patient Outreach [facility] [address] [place] [address] Judie Carreno, PharmD Pharmacist Medication Management (Patient call - unknown reason) 06/18/2023 Refill [facility] [address] [place] [address] Nivia Bruno MD Refill Request (LIOTHYRONINE SODIUM 5MCG TABS) from Last 3 Months Immunizations Name Administration Dates Next Due COVID-19 vaccine (Pfizer-Bio NTech 30mcg/0.3mL) 12YO+ TOMER-SUCROSE PF, MDV 08/21/2021 COVID-19 vaccine (Pfizer-Bio NTech 30mcg/0.3mL) PF, MDV 08/09/2020,07/19/2020 DTaP 09/30/2005 Hepatitis A (Adult) 04/27/2008 [...] Sign Reading Time Taken Comments Blood Pressure 101/66 09/03/2023 8:33 AM CDT Pulse 95 09/03/2023 8:33 AM CDT Temperature 36.4 ??C (97.6 ??F) 09/03/2023 8:33 AM CD T Respiratory Rate 16 04/01/2022 3:21 PM AG SERVICE MANAGER Oxygen Saturation 99% 09/03/2023 8:33 AM CDT Inhaled Oxygen Concentration - - Weight 70.6 kg (155 lb 9.6 oz) 08/21/2023 3:55 P M CDT Height 174 cm (5' 8.5) 04/14/2023 2:10 PM AG SERVICE MANAGER Body Mass Index 23.31 04/14/2023 2:10 PM AG SERVICE MANAGER Plan of Treatment Upcoming Encounters Date Type Department Care Team (Late st Contact Info) Description 09/15/2023 12:45 PM CDT Telemedicine [facility] [address] [place] [address] Freda Serrano MD [address] [place] [address] 09/16/2023 1:00 PM CDT Phone Office Visit [facility] [address] [place] [phone] Keiko Downs, [facility] [address] [place] [address] 09/16/2023 3:40 PM CDT Office Visit [facility] [place] [facility] [address] [place] [address] Norberto Pretty MD [address] [place] [address] 09/18/2023 1:00 PM CDT Patient Outreach [facility] - [facility] Team [address] [place] [phone] Lisa Thakur, RN [address] [place] [address] 09/19/2023 2:00 PM CDT Procedure Only [facility] [address] [facility] [place] [address] Tyler Parson L Ac [address] [place] [address] 09/22/2023 11:30 AM CDT Ancillary Procedure [facility] [address] [place] [address] 09/22/2023 2:00 PM CDT Pharmacist Medication Management [address] [address] Judie Carreno PharmD [address] [place] [address] 09/23/2023 1:00 PM CDT Phone Office Visit [facility] [address] [place] [phone] Keiko Downs LICSW [address] [place] [address] 09/25/2023 2:00 PM CDT Procedure Only [facility] [address] [place] [address] Tyler Parson L Ac [address] [place] [address] 09/30/2023 11:30 AM CDT Phone Office Visit [facility] [address] [place] [phone] Keiko Downs LICSW [address] [place] [address] 10/03/2023 2:00 PM CDT Procedure Only [facility] [address] [facility] [place] [address] Tyler Parson L Ac [address] [place] [address] 10/07/2023 1:00 PM CDT Phone Office Visit [facility] [address] [place] [phone] Keiko Downs LICSW [address] [place] [address] 10/10/2023 2:00 PM CDT Procedure Only [facility] [address] [place] [address] Tyler Parson L Ac [address] [place] [address] 10/14/2023 1:00 PM CDT Phone Office Visit [facility] [address] [place] [phone] Keiko Downs AGRICULTURAL EXTENSION SPECIALIST [address] [place] [address] 10/21/2023 11:30 AM CDT Phone Office Visit [facility] [address] [place] [address] Keiko Downs AGRICULTURAL EXTENSION SPECIALIST [address] [place] [address] 10/22/2023 1:00 PM CDT Office Visit [facility] [address] [place] [address] Jyoti Sellers PA [address] [place] [address] 10/28/2023 11:30 AM CDT Phone Office Visit [facility] [address] [facility] [place] [address] Keiko Downs LICSW [address] [place] [address] 11/04/2023 1:00 PM CDT Phone Office Visit [facility] [address] [place] [address] Keiko Downs LICSW [address] [place] [address] 11/10/2023 11:00 AM CDT Office Visit [facility] [address] [place] [address] Jyoti Sellers PA [address] [place] [address] 11/11/2023 1:00 PM CDT Phone Office Visit [facility] [address] [place] [address] Keiko Downs LICSW [address] [place] [address] 11/18/2023 1:00 PM CDT Phone Office Visit [facility] [address] [place] [address] Keiko Downs LICSW [address] [place] [address] 11/25/2023 11:30 AM CDT Phone Office Visit [facility] [address] [place] [address] Keiko Downs LICSW [address] [place] [address] 12/02/2023 1:00 PM CDT Phone Office Visit [facility] [address] [place] [phone] Keiko Downs [facility] [address] [place] [address] 12/03/2023 1:00 PM CDT Office Visit [facility] [address] [place] [address] Jyoti Sellers PA [address] [place] [address] 12/09/2023 1:00 PM CDT Phone Office Visit [facility] [address] [place] [phone] Keiko Downs [facility] [address] [place] [address] Health Maintenance Due Date Last Done Comments Influenza for age 50-64 01/11/2024 03/16/20, 03/27/2021, 02/24/2020, Additional history exists BMI (ht and wt on same day) for age 18+ 04/14/2024 04/14/2023, 06/06/2022, 03/26/2022, Additional history exists Depression screening for age 12+ 07/31/2024 08/01/2023, 07/30/2023, 07/29/2023, Additional history exists Mammogram for age 45-75 07/31/2024 08/01/19 24, 05/13/2022, 05/10/2021, Additional history exists Pap test for age 21-65 10/04/2025 , 10/04/2022, 09/30/2017, Additional history exists Tetanus booster [...] Completed 08/28/2020, 05/11/2020 COVID-19 vaccine series Completed 06/11/19, 08/21/2021, 02/21/2021, Additional history exists Procedures Procedure Name Priority Date/Time Associated Diagnosis Comments ACUPUNCTURE PLAN OF CARE Routine 09/12/2023 2:29 PM CDT Other low back pain ACUPUNCTURE PLAN OF CARE Routine 09/12/2023 12:34 PM CDT Other low back pain BEDSIDE US STUDY ARCHIVE Routine 09/03/2023 2:23 PM CDT Chronic right shoulder pain Bursitis of right shoulder Nontraumatic complete tear of right rotator cuff ACUPUNCTURE PLAN OF CARE Routine 08/22/2023 3:34 PM CDT Other low back pain SCAN CORRESP-IMAGING 08/22/2023 12:00 AM CDT URINE CULTURE Add On 08/21/2023 3:53 PM CDT Pain with urination URINALYSIS MICROSCOPIC Routine 3:53 PM CDT Pain with urination UA W/ SEDIMENT EXAM REFLEXED PER CRITERIA Routine 08/21/2023 3:53 PM CDT Pain with urination SCAN-ANGIOGRAM 08/18/2023 12:00 AM CDT SCAN-MRI INTERPRETATION 08/18/2023 12:00 AM CDT MR ANGIO STROKE HEAD WO AND NECK WO AND MR BRAIN WO Routine 08/18/2023 12:00 AM CDT Facial twitching ACUPUNCTURE PLAN OF CARE Routine 08/15/2023 2:54 [...] PLAN OF CARE Routine 07/18/2023 2:32 PM AG SERVICE MANAGER Other low back pain ACUPUNCTURE PLAN OF CARE Routine 07/11/2023 3:12 PM AG SERVICE MANAGER Other low back pain LIPID PANEL W REFLEX MEASURED LDL Routine 07/08/2023 12:07 PM AG SERVICE MANAGER Hyperlipidemia, unspecified hyperlipidemia type COMP METABOLIC PANEL Routine 07/08/2023 12:07 PM AG SERVICE MANAGER Facial twitching TSH Routine 07/08/2023 12:07 PM AG SERVICE MANAGER History of hypothyroidism T4,FREE Routine 07/08/2023 12:07 PM AG SERVICE MANAGER History of hypothyroidism T3,FREE Routine 07/08/2023 12:07 PM AG SERVICE MANAGER History of hypothyroidism ACUPUNCTURE PLAN OF CARE Routine 06/27/2023 3:05 PM AG SERVICE MANAGER Other low back pain HPV THIN PREP Routine 10/04/2022 1:31 PM CDT Pap smear for cervical cancer screening SCAN-COLONOSCOPY 01/28/2022 1:00 PM CDT ANTI HIV 1/2 Routine 06/01/2018 4:02 PM AG SERVICE MANAGER Exposure to STD ANTI HCV Routine 09/30/2017 5:38 PM CDT STD exposure from Last 3 Months or Most Recently Relevant to Health Maintenance Results * [facility] STUDY ARCHIVE (09/03/2023 2:23 PM CDT) Narrative [place] - 09/03/2023 2:23 PM CDT The patient was seen for ultrasound guided injection by Dr. Facundo Mijares. Ultrasound was not used for diagnostic purposes, but to guide the needle placement and document the position of the injection. ?? See patient's EPIC encounter for the detail of the procedure; see SUSANNA for saved images of the injection. Facundo Mijares MD PROCEDURE ORD * SCAN CORRESP-IMAGING (08/22/2023 12:00 AM CDT) Anatomical Region Laterality Modality Other Scanner OTHER * URINALYSIS MICROSCOPIC (08/21/2023 3:53 PM CDT) RBC None Seen 0-2, None Seen /HPF 08/21/2023 3:58 PM CDT [facility] WBC 0-2 0-2, 3-5, None Seen /HPF 08/21/2023 3:58 PM CDT [facility] BACTERIA Few None Seen, Rare, Few Bacteria/ HPF 08/21/2023 3:58 PM CDT [facility] EPITHELIAL CELLS Few None Seen, Few Epi/HPF 08/21/2023 3:58 PM CDT [facility] Urine URINE SPECIMEN / Unknown Non-Blood / Unknown 08/21/2023 3:53 PM CDT 08/21/2023 3:53 PM CDT Nivia Bruno MD URINE [facility] [address] [place] [address], [place] [phone] * URINE CULTURE (08/21/2023 3:53 PM CDT) CULTURE 10-50,000 CFU/mL of multiple organisms, probable contaminants 08/23/2023 1:34 PM CDT [facility] Urine URINE SPECIMEN / Unknown Non-Blood / Unknown 08/21/2023 3:53 PM CDT 08/21/2023 3:53 PM CDT Nivia Bruno MD MICROBIOLOGY [facility] [address] [place] [address], [place] * (ABNORMAL) UA W/ SEDIMENT EXAM REFLEXED PER CRITERIA (08/21/2023 3:53 PM CDT) COLOR Yellow Yellow Color 08/21/2023 3:58 PM CDT [facility] CLARITY Clear Clear Clarity 08/21/2023 3:58 PM CDT [facility] SPECIFIC GRAVITY,URINE 1.015 1.010, 1.015, 1.020, 1.025 08/21/2023 3:58 PM CDT [facility] PH,URINE 5.0(A) 6.0, 7.0, 8.0, 5.5, 6.5, 7.5, 8.5 08/21/2023 3:58 PM CDT [facility] UROBILINOGEN, QUALITATIVE Normal Normal EU/dl 08/21/2023 3:58 PM CDT [facility] PROTEIN, URINE Negative Negative mg/dL 08/21/2023 3:58 PM CDT [facility] GLUCOSE, URINE Negative Negative mg/dL 08/21/2023 3:58 PM CDT [facility] KETONES,URINE Negative Negative mg/dL 08/21/2023 3:58 PM CDT [facility] BILIRUBIN,URI NE Negative Negative 08/21/2023 3:58 PM CDT [facility] OCCULT BLOOD,URINE Negative Negative 08/21/2023 3:58 PM CDT [facility] NITRITE Negative Negative 08/21/2023 3:58 PM CDT [facility] LEUKOCYTE ESTERASE Trace(A) Negative 08/21/2023 3:58 PM CDT [facility] Urine URINE SPECIMEN / Unknown Non-Blood / Unknown 08/21/2023 3:53 PM CDT 08/21/2023 3:53 PM CDT Nivia Bruno MD URINE [facility] [address] [place] [address], * MR ANGIO STROKE HEAD WO AND NECK WO AND MR BRAIN WO (08/18/2023 12:00 AM CDT) Anatomical Region Laterality Modality BRAIN, HEAD Magnetic Resonan ce Nivia Bruno MD MR * SCAN-ANGIOGRAM (08/18/2023 12:00 AM CDT) Anatomical Region Laterality Modality Other Scanner OTHER * SCAN-MRI INTERPRETATION (08/18/2023 12:00 AM CDT) Anatomical Region Laterality Modality Other Scanner OTHER * XR MAMMO EVA BILAT SCREEN (08/01/2023 [...] For Patients: As a result of the Century Cures Act, medical imaging exams and procedure reports are released immediately into your electronic medical record. You may view this report before your referring provider. If you have questions, please contact your health care provider. XR MAMMO EVA BILAT SCREEN [[id number]] CLINICAL HISTORY: ??This is an asymptomatic 63 y.o. patient. INDICATION FOR EXAM: Mammogram Screening. TECHNIQUE: CC & MLO views were obtained. ??This study was evaluated with the assistance of Computer-Aided Detection. Breast Tomosynthesis was used in interpretation. COMPARISON FILM: Yes 05/13/22 [facility] 05/10/21 [facility] FINDINGS: ??The breasts have scattered areas of fibroglandular density. There are no dominant masses, suspicious micro calcifications or areas of architectural distortion. Nivia Bruno MD MAMMO * (ABNORMAL) LIPID PANEL W REFLEX MEASURED LDL (07/08/2023 12:07 PM AG SERVICE MANAGER) CHOLESTEROL,TOTAL 285(H) 100 - 199 mg/dL 07/08/2023 9:55 PM AG SERVICE MANAGER [facility] Comment: Cholesterol, Total Reference Ranges Desirable <200 mg/dL Borderline 200-239 mg/dL High >=240 mg/dL TRIGLYCERIDES 97 <150 mg/dL 07/08/2023 9:55 PM AG SERVICE MANAGER [facility] HDL CHOLESTEROL 76 >40 mg/dL 9:55 PM AG SERVICE MANAGER [facility] NON-HDL CHOLESTEROL 209(H) <145 mg/dl 07/08/2023 9:55 PM AG SERVICE MANAGER [facility] CHOL/HDL RATIO 3.75 <4.50 07/08/2023 9:55 PM AG SERVICE MANAGER [facility] LDL CHOLESTEROL 190(H) <=130 mg/dL 07/08/2023 9:55 PM AG SERVICE MANAGER [facility] VLDL CHOLESTEROL 19 <=30 mg/dL 07/08/2023 9:55 PM AG SERVICE MANAGER [facility] PROVIDER ORDERED STATUS RANDOM 07/08/2023 9:55 PM [facility] Blood BLOOD SPECIMEN / Unknown Venipuncture / Unknown 07/08/2023 12:07 PM AG SERVICE MANAGER 07/08/2023 12:07 PM AG SERVICE MANAGER Nivia Bruno MD CHEMISTRY [facility] [address] [place] [address], * TSH (07/08/2023 12:07 PM AG SERVICE MANAGER) TSH 1.26 0.27 - 4.20 uIU/mL 07/08/2023 9:55 PM AG SERVICE MANAGER [facility] Blood BLOOD SPECIMEN / Unknown Venipuncture / Unknown 07/08/2023 12:07 PM AG SERVICE MANAGER 07/08/2023 12:07 PM AG SERVICE MANAGER Narrative [facility] - 07/08/2023 9:55 PM AG SERVICE MANAGER In Adults, TSH values between 5.00 and 10.00 uIU/ml do not necessarily indicate the presence of Hypothyroidism. Correlation with clinical findings such as presence of goiter and/or Thyroperoxidase (TPO) Antibody may be helpful. For more information please refer to DAVID 2004; 291: 228-238. Jyoti GUERRERO CHEMISTRY Performing Organization Address City/[facility]/ZIP Co de Phone Number [facility] [address] [place] [address], * T3,FREE (07/08/2023 12:07 PM AG SERVICE MANAGER) T3,FREE 3.32 2.00 - 4.40 pg/mL 07/08/2023 9:55 PM AG SERVICE MANAGER [facility] Blood BLOOD SPECIMEN / Unknown Venipuncture / Unknown 07/08/2023 12:07 PM AG SERVICE MANAGER 07/08/2023 12:07 PM AG SERVICE MANAGER Jyoti GUERRERO CHEMISTRY Performing Organization Address [facility] Co de Phone Number [facility] [address] [place] [address], [place] * T4,FREE (07/08/2023 12:07 PM AG SERVICE MANAGER) T4,FREE 1.17 0.93 - 1.70 ng/dL 07/08/2023 9:55 PM AG SERVICE MANAGER [facility] Blood BLOOD SPECIMEN / Unknown Venipuncture / Unknown 07/08/2023 12:07 PM AG SERVICE MANAGER 07/08/2023 12:07 PM AG SERVICE MANAGER Jyoti GUERRERO CHEMISTRY Performing Organization Address [facility] Co de Phone Number [facility] [address] [place] [address], [place] * (ABNORMAL) COMP METABOLIC PANEL (07/08/2023 12:07 PM [facility]) SODIUM 138 136 - 145 mmol/L 07/08/2023 9:55 PM [facility] POTASSIUM 4.4 3.5 - 5.1 mmol/L 07/08/2023 9:55 PM [facility] CHLORIDE 101 98 - 107 mmol/L 07/08/2023 9:55 PM [facility] CO2,TOTAL 26 22 - 29 mmol/L 07/08/2023 9:55 PM [facility] ANION GAP 11 5 - 18 07/08/2023 9:55 PM [facility] GLUCOSE 100(H) 70 - 99 mg/dL 07/08/2023 9:55 PM [facility] CALCIUM 9.5 8.8 - 10.2 mg/dL 07/08/2023 9:55 PM [facility] BUN 18 8 - 23 mg/dL 07/08/2023 9:55 PM [facility] CREATININE 0.83 0.50 - 0.90 mg/dL 07/08/2023 9:55 PM [facility] BUN/CREAT RATIO 22(H) 10 - 20 9:55 PM [facility] eGFR 79(L) >90 mL/min/1.7 3m2 07/08/2023 9:55 PM [facility] Comment:As of 2021, eG FR is calculated by the CKD-EPI creatinine equation without race adjustment. ??eGFR can be influenced by muscle mass, exercise, and diet. ??The reported eGFR is an estimation only and is only applicable if the renal function is stable. ALBUMIN 4.7 4.0 - 4.9 g/dL 07/08/2023 9:55 PM [facility] PROTEIN,TOTAL 6.9 6.0 - 8.0 g/dL 07/08/2023 9:55 PM [facility] BILIRUBIN,TOTAL 0.4 0.0 - 1.2 mg/dL 07/08/2023 9:55 PM AG SERVICE MANAGER [facility] ALK PHOSPHATASE 60 35 - 104 IU/L 07/08/2023 9:55 PM AG SERVICE MANAGER [facility] ALT (SGPT) 25 10 - 35 IU/L 07/08/2023 9:55 PM AG SERVICE MANAGER [facility] AST (SGOT) 27 10 - 35 IU/L 07/08/2023 9:55 PM AG SERVICE MANAGER [facility] Blood BLOOD SPECIMEN / Unknown Venipuncture / Unknown 07/08/2023 12:07 PM AG SERVICE MANAGER 07/08/2023 12:07 PM AG SERVICE MANAGER Nivia Bruno MD CHEMISTRY Performing Organization Address [facility]/ZIP Co de Phone Number [facility] [address] [place] [address], [place] * HPV HIGH RISK (10/04/2022 1:31 PM CDT) TYPE 16 Negative Negative 10/10/2022 4:40 PM CDT [facility] TYPE 18 Negative Negative 10/10/2022 4:40 PM CDT [facility] OTHER HIGH RISK TYPES Negative Negative 10/10/2022 4:40 PM CDT [facility] Other (Cervical) Non-Blood / Unknown 10/04/2022 1:31 PM CDT 10/08/2022 2:11 PM CDT Narrative [facility] - 10/10/2022 4:40 PM CDT HPV types 16, 18, 31, 33, 35, 39, 45, 51, 52, 56, 58, 59, 66 and 68 DNA were undetectable or below the pre-set threshold. Methodology: [employer] 4800 HPV Test Nivia Bruno MD MICROBIOLOGY Performing Organization Address City/[facility]/ZIP Co de Phone Number [facility] [address] [place] [address], [place] * SCAN-COLONOSCOPY (01/28/2022 1:00 PM CDT) Narrative Procedure Note Edison Ceron MD - 01/28/2022 12:02 PM CDT [facility] [address], [address], [place] [address] Patient Name: Juliette Brown Gender: Female Exam Date: 01/28/2022 Visit Number: [id number] Age: 61 Years 9 Months Date of : 1960 Attending MD: Edison Ceron MD Medical Record#: [id number] ----- Procedure: Colonoscopy Indications: Recent history of [...] Race: White Ethnicity: Not or Preferred Language: Azeri cc: Nivia Bruno MD [facility] [phone] Edison Ceron MD OTHER * ANTI HIV 1/2 (06/01/2018 4:02 PM AG SERVICE MANAGER) HIV-1/HIV-2 ANTIBODY Non-Reacti ve Non-Reacti ve 06/01/2018 8:08 PM AG SERVICE MANAGER [facility] Comment:HIV-1 p24 and HIV-1/ HIV-2 Ab not detected. Blood BLOOD SPECIMEN / Unknown Venipuncture / Unknown 06/01/2018 4:02 PM AG SERVICE MANAGER 06/01/2018 4:02 PM AG SERVICE MANAGER Nivia Bruno MD [facility] [address] * ANTI HCV (09/30/2017 5:38 PM CDT) HEPATITIS C ANTIBODY Non-React mathieu Non-React mathieu 10/01/2017 2:41 PM CDT [facility] Comment:Antibodies to HCV no t detected; does not exclude the possibility of exposure to HCV. Blood BLOOD SPECIMEN / Unknown Venipuncture / Unknown 09/30/2017 5:38 PM CDT 09/30/2017 5:38 PM CDT Kourtney GUERRERO SEND OUTS [facility] [address] from Last 3 Months or Most Recently Relevant to Health Maintenance Advance Directives Documents on File Type Date Recorded Patient Hospital Monitor Expl anation Healthcare Directive 04/01/2022 022 * [...] 6:43 PM 06/10/2011 6:41 PM Care Teams Day Care Assistant Relationship Specialty Start Date End Date Nivia Bruno MD [address] [place] [address] PCP - General Family Practice 07/01/19 Lisa Thakur, RN [address] [place] [address] Complex Care Management Registered Nurse 05/20/23 Judie Carreno, AugustaD [address] [place] [address] Pharmacist Medication Management Pharmacology 05/28/23 05/28/25
--- OUTSIDE RECORDS SUMMARY | 2023-09-14 19:59 | XMS_ITS | Encounter Summary ---
Author Name Unknown Organization [place] Address [address] [place] [address] Care Team Providers Care Sales And Marketing Vice President Name Role Phone Heladio Martins MD Primary Care Provider UnaKelsi Hummel MD Unavailable [phone] Nivia Bruno MD Primary Care Provider Encounter Details Date Type Department Care Team ([facility] Contact Info) Description 03/07/2021 [facility] Behavioral Health Intake [address] [place] [phone] Generic, Behavioral Intake, Social History Tobacco Use [...] 03/06/2021 7:37 PM CDT To: Cheyanne Santana [facility], Quentin Hagan, # Subject: Schedule for PHP on Friday Scheduling Request Patient Name: Juliette Brown Location of programming: [facility] Start Date: 03/12 Group: [id number] 9am to 3pm Attending Provider (MD): Trent Number of visits to be scheduled: 50 Duration of Appointment in minutes: 360 Visit Type: Zoom - [phone] Additional notes: Patient is currently in PHP at [facility]. She has Medicare and BCBS. Please check ifinsurance will cover another PHP program. Patient was given [employer] phone number. * Telephone Encounter - Jen Serrano - 03/07/2021 7:50 AM CDT ----- Message from KETTY Rollins sent at 03/06/2021 7:37 PM CDT ----- Regarding: Schedule for PHP on Friday Scheduling Request Patient Name: Juliette Brown Location of programming: [facility] Start Date: 03/12 Group: [id number] 9am to 3pm Attending Provider (): Vine Number of visits to be scheduled: 50 Duration of Appointment in minutes: 360 Visit Type: Zoom - [phone] Additional notes: Patient is currently in PHP at [facility]. She has Medicare and BCBS. Please check ifinsurance will cover another PHP program. Patient was given [employer] phone number. documented in this encounter Plan of Treatment Not on file documented as of this encounter Visit Diagnoses Not on filedocumented in this encounter Additional Health Concerns Assessment Noted Time PHQ-9 Depression Total Score: 21 021 12:28 PM CDT documented as of this encounter Care Teams Sales And Marketing Vice President Relationship Specialty Start Date End Date Heladio Martins MD PCP - General Internal Medicine 03/05/16 03/21/21 Nivia Bruno MD [address] [place] [address] PCP - General 03/22/21 Kelsi Handy MD [address] [place] [address] Assigned OBGYN Provider 04/23/20 3 documented as of this encounter
--- OUTSIDE RECORDS SUMMARY | 2023-09-14 19:59 | XMS_ITS | Referral Summary ---
Author Name Unknown Organization [place] Address [address] [place] [address] Care Team Providers Care Conveyor Operator Name Role Phone Nivia Bruno MD Primary Care Provider Allergies Active Allergy Reactions Criticality Noted Date [...] Take 1 tablet by mouth 07/22/2014 Active [place]-3 1000 MG CAPS 04/02/2016 Acti ve Saline (SODIUM CHLORIDE) 0.65 % SOLN [place] 1 spray in nostril 01/28/2015 Active traZODone [...] CDT Plan of Treatment Not on file Procedures Procedure Name Priority Date/Time Associated Diagnosis Comments BASIC METABOLIC PANEL Routine 06/23/2017 6:00 AM TITLE OFFICER ZZCL AFF HEMOGRAM/PLATELET Routine 01/08/1999 1:14 PM CDT Mal[facility] Prince Temporal Lobe (H) Chemotherapy Session from Last 3 Months or Most Recently Relevant to Health Maintenance Results * Basic metabolic panel (06/23/2017 6:00 AM TITLE OFFICER) Sodium 139 136 - 145 mmol/L 06/23/2017 10:13 AM [facility] Potassium 4.2 3.5 - 5.0 mmol/L 06/23/2017 10:13 AM [facility] Chloride 103 98 - 107 mmol/L 06/23/2017 10:13 AM [facility] Carbon Dioxide (CO2) 29 22 - 31 mmol/L 06/23/2017 10:13 AM [facility] Anion Gap 7 5 - 18 mmol/L 06/23/2017 10:13 AM [facility] Glucose 105 70 - 125 mg/dL 06/23/2017 10:13 AM [facility] Calcium 9.4 8.5 - 10.5 mg/dL 06/23/2017 10:13 AM [facility] Urea Nitrogen 16 8 - 22 mg/dL 06/23/2017 10:13 AM TITLE OFFICER [facility] Creatinine 0.69 0.60 - 1.10 mg/dL 06/23/2017 10:13 AM TITLE OFFICER [facility] GFR Estimate If Black >60 >60 mL/min/1.7 3m2 06/23/2017 10:13 AM [facility] GFR Estimate >60 >60 mL/min/1.7 3m2 06/23/2017 10:13 AM [facility] Blood specimen (specimen) STRUCTURE OF LEFT UPPER LIMB / Unknown Venipuncture / Unknown 06/23/2017 6:00 AM TITLE OFFICER 06/23/2017 9:50 AM TITLE OFFICER Narrative [facility] - 06/23/2017 10:13 AM TITLE OFFICER Fasting Glucose reference range is 70-99 mg/dL per Citizen [place] Diabetes Association (ADA) guidelines. Rosmery Simpson MD LAB - BLOOD ORDER KAYLEN Performing Organization Address [facility] Co de Phone Number [facility] [id number] [place] [address] LAB[address] [address] * (ABNORMAL) HEMOGRAM W/ PLATELET COUNT (01/08/1999 [...] Mar Reyes MD LABORATORY Performing Organization Address City/[facility]/ZIP Co de Phone Number [facility] from Last 3 Months or Most Recently Relevant to Health Maintenance Advance Directives For more information, please contact: [phone] * Full Code (Latest Code Status on File) Date Activated Date Inactivated Comments 04/16/2016 1:58 AM 04/22/2016 3:55 PM Care Teams Conveyor Operator Relationship Specialty Start Date End Date Nivia Bruno MD PCP - General 03/22/21
--- OUTSIDE RECORDS SUMMARY | 2023-09-14 19:59 | XMS_ITS | Encounter Summary ---
Author Name Unknown Organization [facility] Address [address] [address] Care Team Providers Care Distance Learning Program Coordinator Name Role Phone Needs Pcp, Assignment Primary Care Provider [phone] Encounter Details Date Type Department Care Team (Late st Contact Info) Description 07/16/2019 Lab Requisition [facility] [address] [facility] [place] [address] Lul Hunter MD [address] [place], [place] [id number] Encounter for surgical aftercare following surgery on [...] PM CDT Appointment [facility] [address] [place] [address] Leif Stewart PA-C [address] [facility] [place] [address] documented as of this encounter Visit Diagnoses Diagnosis Encounter for surgical aftercare following surgery on the sense organs documented in this encounter Care Teams Distance Learning Program Coordinator Relationship Specialty Start Date End Date Needs Pcp, [place] [address] PCP - General 02/28/21 documented as of this encounter
--- OUTSIDE RECORDS SUMMARY | 2023-09-14 19:59 | XMS_ITS | Encounter Summary ---
Author Name Unknown Organization [place] Address [facility] [place] [address] Care Team Providers Care Channel Worker Name Role Phone Heladio Martins MD Primary Care Provider UnaKelsi Hummel MD Unavailable [phone] Nivia Bruno MD Primary Care Provider [phone] Reason for Visit * Reason Onset Date Comments MH/CD Inpatient 04/15/2016 Encounter Details Date Type Department Care Team ([facility] st Contact Info) Description 04/15/2016 Telephone [facility] Behavioral Health Intake [address] [place] [address] Generic, Behavioral Intake, MD MH/CD Inpatient Social [...] has been medically cleared for admission (Dr. lCark will write orders, as it is after 10pm); unit notified OMETALLURGICAL ENGINEER documented in this encounter Plan of Treatment Not on file documented as of this encounter Visit Diagnoses Not on filedocumented in this encounter Care Teams Channel Worker Relationship Specialty Start Date End Date Heladio Martins MD PCP - General Internal Medicine 03/05/16 03/21/21 Nivia Bruno MD [address] [place] [address] PCP - General 03/22/21 Kelsi Handy MD [address] [place] [address] Assigned OBGYN Provider 04/23/20 3 documented as of this encounter
--- OUTSIDE RECORDS SUMMARY | 2023-09-14 19:59 | XMS_ITS | Clinical Summary ---
Author Name Unknown Organization [facility] Address [address] [place] [address] Care Team Providers Care Chemical Weigher Name Role Phone Needs Pcp, Assignment Primary Care Provider [phone] Source Comments You are receiving this document as you are listed as the primary care provider,follow-up provider, or the patient has been referred to you for consultation.This is in compliance with the Medicare andRegional Medical Centercaid EHR Incentive Program,which states Providers who transition their patient to another setting of careor provider of care or refers their patient to another provider of care shouldprovide summary care record for each transition of care or referral. [facility] [employer] Allergies Active Allergy Reactions Criticality Noted [...] (OCEAN) 0.65 % nasal solution Place 1 Lambert into both nostrils every 2 hours as needed for Congestion. Active bacitracin-polymyx in b (POLYSPORIN) [id number] UNIT/GM ointmentIndication s:dry nose Apply topically two [...] Overview: Added automatically from request for surgery [id number] Sarcoidosis, lung 06/01/2019 Recurrent major depressive disorder [...] Diagnosed Date Resolved Date Diarrhea 07/15/2019 07/17/2019 Encounters Date Type Department Care Team Description 09/03/2023 Telephone [facility] [address] [place] [address] Leif Stewart PA-C QUESTIONS, GENERAL from Last 3 Months Immunizations Name Administration Dates Next Due Flu [...] (145 lb 12.8 oz) 07/16/2019 9:00 PM SAMPLE FINISHER Height 172.7 cm (5' 8) 07/15/2019 9:30 PM SAMPLE FINISHER Body Mass Index 22.17 07/15/2019 9:30 PM SAMPLE FINISHER Plan of Treatment Upcoming Encounters Date Type Department Care Team (Late st Contact Info) Description 09/24/2023 12:45 PM CDT Appointment [facility] [address] [facility] [place] [address] Leif Stewart PA-C [address] [facility] [place] [address] Health Maintenance Due Date Last Done Comments Cervical Cancer Screening Due 1960 Colon Cancer Screening Plan Due 1960 Medicare Annual Wellness Visit 1960 Cholesterol 2004 Mammogram 05/09/2021 05/09/2020, 08/11, 10/27/2007, Additional history exists COVID-19 Vaccine ( season) 2023 02/21/2021, 08/09/2020, 07/19/2020 Influenza (Season Ended) 2024 020, 02/07/2014, 05/21/2012, Additional history exists DTaP/Tdap/Td (5 - Tdap) 05/31/2026 05/31/19 17, 09/30/2005, 09/30/2005, Additional history exists HepA Aged [...] this topic Medical Devices Implanted Type Area Travel Registered Nurse Pacu Device Identifier Shelf Expiration Date Model / Serial / Lot Chip Canc Crouton 30cc - [id number] Implanted:Qty: 1 on 07/07/2019 by Tobias Martin MD at [facility] DEVICE Right: LEG [employer] - [employer] 06/30/2023 [id number] / [id number] / [id number] Chip Canc Crouton 30cc - [id number] Implanted:Qty: 1 on 07/07/2019 by Tobias Martin MD at [facility] DEVICE Right: LEG [employer] - [employer] 06/30/2023 [id number] / [id number] / [id number] Procedures Procedure Name Priority Date/Time [...] Negative (Non Reactive) 08/25/2018 4:34 PM CDT [facility] Comment:HIV-1 p24 Antigen an d HIV-1/HIV-2 Antibody not detected Blood Venipuncture / Unknown 08/25/2018 11:24 AM CDT 08/25/2018 11:24 AM CDT Carin Rainey MD LAB_1 Performing Organization Address City/[facility]/ZIP Co de Phone Number [facility] [address] [place], [place] [address] * HCAB - Hepatitis C Virus Paula with Reflex In-House (08/25/2018 11:24 AM CDT) Hepatitis C Antibody Negative (Non Reactive) Negative (Non Reactive) 08/25/2018 4:34 PM CDT [facility] Comment:Antibodies to HCV no t detected. Does not exclude the possiblity of exposure to HCV. Blood Venipuncture / Unknown 08/25/2018 11:24 AM CDT 08/25/2018 11:24 AM CDT Carin Rainey MD LAB_1 Performing Organization Address [facility] Co de Phone Number [facility] [address] [place], [place] [address] from Last 3 Months or Most Recently Relevant to Health Maintenance Advance Directives Documents on File Type Date Recorded Patient Assembly Technician Expl anation HEALTHCARE DIRECTIVE 07/10/2019 ADVANCE D DIRECTIVE 07/10/2019 * Full Code (Latest Code Status on File) Date Activated Date Inactivated Comments 07/15/2019 9:18 PM 07/20/2019 4:20 PM * Full Code Date Activated Date Inactivated Comments 07/07/2019 4:33 PM 07/10/2019 6:22 PM Care Teams Chemical Weigher Relationship Specialty Start Date End Date Needs Pcp, [place] [address] PCP - General 02/28/21
--- OUTSIDE RECORDS SUMMARY | 2023-09-14 20:00 | XMS_ITS | Continuity of Care Document ---
Author Name Unknown Address [address] [place] [address] Phone [phone] Organization [facility] Address [address] [place] [address] Assessment No assessment recorded. Plan of Treatment Reminders Order Date Submit Date Provider Last Modified By Organization Details Last Modified Time Details Appointments None recorded. Lab urinalysi s, dipstick 2023 024 [facility], [address], [place], [address], 13:07:01 Referral pelvic floor therapy referral 2023 024 [facility], [address], [place], [address], 08:14:59 Procedures None recorded. Surgeries None recorded. [...] Available [facility] [address], [place], [address], 06/17/2023 12:42:43 06/17/19 24 06/17/2023 urina lysis , dipst ick Clarity-Stat us Clear Not Available [facility] [address], [place], [address], 06/17/2023 12:42:43 06/17/19 24 06/17/2023 urina lysis , dipst ick Glucose-Stat us Negati ve Not Available [facility] [address], [place], [address], 06/17/2023 12:42:43 06/17/19 24 06/17/2023 urina lysis , dipst ick Bilirubin-St atus Negati ve Not Available [facility] [address], [place], [address], 06/17/2023 12:42:43 06/17/19 24 06/17/2023 urina lysis , dipst ick Ketones-Stat us Negati ve Not Available [facility] [address], [place], [address], 06/17/2023 12:42:43 06/17/19 24 06/17/2023 urina lysis , dipst ick Sp [place]-Stat us 1.020 Not Available [facility] [address], [place], [address], 06/17/2023 12:42:43 06/17/19 24 06/17/2023 urina lysis , dipst ick pH-Status 5.5 Not Available [facility] [address], [place], [address], 06/17/2023 12:42:43 06/17/19 24 06/17/2023 urina lysis , dipst ick Urobilinogen -Status 0.2 Not Available [facility] [address], [place], [address], 06/17/2023 12:42:43 06/17/19 24 06/17/2023 urina lysis , dipst ick Nitrates-Sta tus negati ve Not Available [facility] [address], [place], [address], 06/17/2023 12:42:43 06/17/19 24 06/17/2023 urina lysis , dipst ick Blood-Status Negati ve Not Available [facility] [address], [place], [address], 06/17/2023 12:42:43 06/17/19 24 06/17/2023 urina lysis , dipst ick Leuko-Status Trace Not Available [facility] [address], [place], [address], 06/17/2023 12:42:43 06/17/19 24 06/17/2023 urina lysis , dipst ick Specimen Type Voided Not Available [facility] [address], [place], [address], 06/17/2023 12:42:43 06/17/19 24 06/17/2023 urina lysis , dipst ick Performed by Nelli Al RN Not Available [facility] [address], [place], [address], 06/17/2023 12:42:43 Result Notes None recorded. Procedures Surgical History Date Name Laterality Status Provider Name and Address Organization Details Recorded Time 06/17/19 24 CystoscopyFemale completed David Rowland PA-C [address] [place] [address],[address], [place], [address], [facility] 06/17/2023 13:01:47 06/17/19 24 Bladder Scan completed Nelli silva [facility] 06/17/2023 12:47:55 Imaging Results None recorded. Procedure Notes None recorded. Medical Equipment None Reported. Allergies Allergen ID Allergen Name Allergen Category Reaction Reaction Severity Criticality Documentation Date Start Date Code Code System Note Provider Name and Address Organization Details Recorded Time 428680 auranofin medicatio n Not available Not available Not available 06/17/2023 1227 RxNorm Nelli silva [facility] 4 12:24:03 673208 cat dander environme nt Not available Not available Not available 06/17/2023 Nelli silva [facility] 4 12:24:08 415944 Gadoliniu m compound (substanc e) medicatio n Not available Not available Not available 06/17/2023 60064 5005 SNOMED Nelli silva [facility] 4 12:24:19 025729 wheat gluten extract food Not available Not available Not available 06/17/2023 25957 81 RxNorm Nelli silva [facility] 4 12:24:26 154474 gold keratinat e Not available Not available Not available Not available 06/17/2023 47115 RxNorm Nelli silva [facility] 4 12:24:36 368342 Substance with morphinan structure and opioid receptor agonist mechanism of action (substanc e) medicatio n Not available Not available Not available 06/17/2023 65554 9000 SNOMED Nelli silva [facility] 4 12:24:43 Medications Name Sig [...] Updated DateTime 06/17/2023 172.72 cm 20.4 kg/m2 03365.38 g GAGANDEEP [facility] 06/17/2023 12:26:06 Social History None recorded. Functional Status None recorded. Mental Status None recorded. Family History Nothing Reported. Medical History No medical history recorded. Gynecological HistoryNo gynecological history recorded. Obstetrics History GPAL:G 0 P 0 0 0 0 Past Encounters Encounter ID Performer Location Encounter Start Date Encounter Closed Date Diagnosis/Indication Diagnosis SNOMED-CT Code [id number] Nancy Troncoso MD [facility] [address] [facility] [place] [address] 06/17/2023 11:59:35 06/18/2023 10:35:23 Urgent desire to urinate 36766050 Recurrent urinary tract infection 191539352 Vaginal dryness 61039568 Health Concerns Section Related Observation LastModified by Organization Detai ls LastModified Time None Recorded Concern Status LastModified by Organization Details LastModified Time None Recorded Payers Encounter Date Sequence Insurance Name Policy Number Policy Duval Covered Member ID Duval Member ID Guarantor Name 06/17/2023 1 [place] [employer] Juliette Brown [id number] Juliette Brown 06/17/2023 2 [place] [id number] Juliette Brown [id number] Juliette Brown Notes Date Note Type Note [...] no POP Cysto: Normal Nancy Troncoso MD [address] [place] [address],[address], [place], [address], [facility] 06/17/2023 13:59:27 OBGyn Episode No OBEpisode recorded.
[2023-09-14 20:09] VITALS: BP 115/68; PULSE 85; RESP 18; TEMP 36.4; O2SAT 97
[2023-09-14 20:11] VITALS: BP 115/68; PULSE 85; RESP 18; TEMP 36.4
== END 2023-09-14 20:11 | disposition home or self-care (01) ==
LOC: ED 19:56
PROVIDERS: Emergency Provider Emergency Medicine; PCP Family Medicine
DX: M79.672 Pain in left foot (principal)
CPT/HCPCS: 73630; 99282; 99283

== ENCOUNTER 2023-10-11 14:37 | Outpatient (RCR) | payer OTHER, SELFPAY | END 2024-10-10 10:20 | disposition home or self-care (01) | LOC: MOW 14:37 | PROVIDERS: PCP Family Medicine; Visit Provider Family Medicine | DX: Z76.0 Encounter for issue of repeat prescription (principal) | CPT/HCPCS: S5170 ==

== ENCOUNTER 2023-11-04 15:51 | Outpatient (CLI) | payer MEDICARE, BC, SELFPAY ==
--- OUTSIDE RECORDS SUMMARY | 2023-11-04 15:55 | XMS_ITS | Continuity of Care Document ---
Author Organization [facility] Address [address] [place] [address] Phone Care Team Providers Care Diathermy Equipment Repairer Name Role Phone Sanchez Lay MD Unavailable Unavailable Advance Directives Directive Yes / No Effective Date File Name No Information Encounters Encounter Description Practice Location Reason(s) For Visit Diagnoses Date Provider Providers Copied on Encounter [facility], [address], [place], [address], [place] tel:[phone] [facility], No Information Rosanne Bradford. [facility] [address], [place], [address], [place]. tel:[phone] Family History Family Member Type Diagnosis Age [...]
--- OUTSIDE RECORDS SUMMARY | 2023-11-04 15:57 | XMS_ITS | Encounter Summary ---
Author Organization [facility] Address [address] [place] [address] Care Team Providers Care Gas Well Drilling Manager Name Role Phone Needs Pcp, Assignment Primary Care Provider [phone] Reason for Visit * Reason Comments Follow-up, NOS Entered automaticall y based on patient selection in [facility]. Encounter Details Date Type Department Care Team (Late st Contact Info) Description 10/08/2023 2:15 PM CDT E-Visit [facility] [address] [place] [address] Leif Stewart PA-C [address] [place] [address] [place] [address] Chief Comp: Follow-up, NOS Social History Tobacco Use Types Packs/Day Years Used Date Smoking Tobacco: Former Smokeless Tobacco: Never Alcohol Use Standard Drinks/Week Comments No 0 (1 standard drink = 0.6 oz pur e alcohol) Sex and Gender Information Value Date Recorded Sex Assigned at Not on file Gender Identity Not on file Sexual Orientation Not on file documented as of this encounter Nursing Notes * Padmini Hancock RN - 10/09/2023 4:14 PM CDT Sending to Leif to address one of patient's mychart questions: Please let me know which of the 2 options would build my bone faster, (especially where I need it most; did you say my spine?), Prolia or Reclast? Also, can I have the infusion at the [facility]? Their telephone # is . Thank you for your time. Kind Regards, Juliette documented in this encounter Plan of Treatment Not on file documented as of this encounter Visit Diagnoses Not on filedocumented in this encounter Care Teams Gas Well Drilling Manager Relationship Specialty Start Date End Date Needs Pcp, [place] [address] PCP - General 02/28/21 documented as of this encounter
--- OUTSIDE RECORDS SUMMARY | 2023-11-04 15:57 | XMS_ITS | Clinical Summary ---
Author Organization [facility] Address [address] [place] [address] Care Team Providers Care Wheelchair Rental Clerk Name Role Phone Nivia Bruno MD Primary [...] Take 1 tablet by mouth 07/22/2014 Active [place]-3 1000 MG CAPS 04/02/2016 Acti ve Saline (SODIUM CHLORIDE) 0.65 % SOLN [place] 1 spray in nostril 01/28/2015 Active traZODone [...] BASIC METABOLIC PANEL Routine 06/23/2017 6:00 AM LICENSED PESTICIDE APPLICATOR from Last 3 Months or Most Recently Relevant to Health Maintenance Results * Basic metabolic panel (06/23/2017 6:00 AM LICENSED PESTICIDE APPLICATOR) Sodium 139 136 - 145 mmol/L 06/23/2017 10:13 AM [facility] Potassium 4.2 3.5 - 5.0 mmol/L 06/23/2017 10:13 AM [facility] Chloride 103 98 - 107 mmol/L 06/23/2017 10:13 AM [facility] Carbon Dioxide (CO2) 29 22 - 31 mmol/L 06/23/2017 10:13 AM [facility] Anion Gap 7 5 - 18 mmol/L 06/23/2017 10:13 AM [facility] Glucose 105 70 - 125 mg/dL 06/23/2017 10:13 AM [facility] Calcium 9.4 8.5 - 10.5 mg/dL 06/23/2017 10:13 AM [facility] Urea Nitrogen 16 8 - 22 mg/dL 06/23/2017 10:13 AM [facility] Creatinine 0.69 0.60 - 1.10 mg/dL 06/23/2017 10:13 AM [facility] GFR Estimate If Black >60 >60 mL/min/1.7 3m2 06/23/2017 10:13 AM LICENSED PESTICIDE APPLICATOR [facility] GFR Estimate >60 >60 mL/min/1.7 [facility] 06/23/2017 10:13 AM [facility] Blood specimen (specimen) STRUCTURE OF LEFT UPPER LIMB / Unknown Venipuncture / Unknown 06/23/2017 6:00 AM LICENSED PESTICIDE APPLICATOR 06/23/2017 9:50 AM LICENSED PESTICIDE APPLICATOR Narrative [facility] - 06/23/2017 10:13 AM LICENSED PESTICIDE APPLICATOR Fasting Glucose reference range is 70-99 mg/dL per [place] Diabetes [employer] (ADA) guidelines. Rosmery Simpson MD LAB - BLOOD ORDER [facility] [address] [address], [facility] [address] [address] from Last 3 Months or Most Recently Relevant to Health Maintenance Advance Directives For more information, please contact: [phone] * Full Code (Latest Code Status on File) Date Activated Date Inactivated Comments 04/16/2016 1:58 AM 04/22/2016 3:55 PM Care Teams Wheelchair Rental Clerk Relationship Specialty Start Date End Date Nivia Bruno MD [facility] - General 03/22/21
--- OUTSIDE RECORDS SUMMARY | 2023-11-04 15:57 | XMS_ITS | Encounter Summary ---
Author Organization [facility] Address [address] [place] [address] Care Team Providers Care Shot Grinder Operator Name Role Phone Needs Pcp, Assignment Primary Care Provider [phone] Encounter Details Date Type Department Care Team (Latest Contact Info) Description 10/08/2023 Orders Only HIM DEPARTMENT Provider, [place] [address] Social History Tobacco Use Types Packs/Day Years [...] Procedure Name Priority Date/Time Associated Diagnosis Comments BONE DENSITY 10/08/2023 documented in this encounter Results * BONE DENSITY (10/08/2023) Anatomical Region Laterality Modality Other Interface Provider DUMMY/OTHER/AR documented in this encounter Visit Diagnoses Not on filedocumented in this encounter Care Teams Shot Grinder Operator Relationship Specialty Start Date End Date Needs Pcp, [place] [address] PCP - General 02/28/21 documented as of this encounter
--- OUTSIDE RECORDS SUMMARY | 2023-11-04 15:57 | XMS_ITS | Clinical Summary ---
Author Organization [employer] [facility] Address [place], [place] [address] Care Team Providers Care Cleat Layer Name Role Phone Nivia Bruno MD Primary Care Provider Judie Carreno PharmD Unavailable [phone] Allergies Active Allergy Reactions Criticality Noted Date Comments Auranofin *Unknown,Other - Describe In Comment Field High 12/10/1999 PN: LW Reaction: ??gold shots-hives Other reaction(s): hives Cat Dander *Unknown - Childhood Rxn,Other - Describe In Comment Field 12/10/1999 Gluten sensitive not, intolerant. Gadolinium-Containing Contrast Media *Unknown,Other - Describe In Comment Field 12/10/1999 PN: LW CM1: CONTRAST- nka Reaction : Gluten GI Upset,Other - Describe In Comment Field 10/22/2019 Gold Keratinate Anaphylaxis,Other - Describe In Comment Field High 04/15/2016 As treatment for RA Gold Sodium Thiomalate Anaphylaxis High 06/28/2011 gold shot Lactose GI Upset High 12/10/1999 Gluten sensitive not, intolerant. Other reaction(s): GI upset Opioids - Morphine Analogues Anaphylaxis,Other - Describe In Comment Field High 12/10/1999 PN: LW Other1: -nka Allergy to Gold Shots Tramadol *Unknown 03/26/2022 Unlisted Allergen (Include Detail In Comments) Anaphylaxis High 04/04/2023 Allergy to Gold Shots Medications Medication Sig Dispensed Refills Start Date End Date Status albuterol HFA 90 mcg/actuation inhaler Inhale 2 Puffs by mouth every 4 hours if needed. 0 07/29/19 Active lidocaine 5 % topical patchIndications:L umbar radiculopathy Apply on dry, clean, hairless skin. Apply 1 patch to painful area of skin for up to to 12 hours within 24 hour period. 30 Patch 1 02/12/20 Active LORazepam (ATIVAN) 0.5 mg tabIndications:KATY (generalized anxiety disorder) Take 1 Tablet (0.5 mg) by mouth 2 times daily if needed for Anxiety. 90 day supply provided, will not fill early. 180 Tablet 1 04/11/20 Active Additional Information Patient taking differently:0.5 mg Oral BID PRN, Anxiety, 90 day supply provided, will not fill early.Pt stated tapering off of medication, Reported on 10/24/2023 valACYclovir (VALTREX) 1 gram tabletIndications: Genital herpes simplex, unspecified site Take 1 Tablet (1 g) by mouth three times daily. Tid X 7 Days 21 Tablet 04/17/20 Active hydrocortisone 2.5% creamIndications:H emorrhoids, external Apply topically to affected area(s) two times daily. 30 g 05/29/19 24 Active acetaminophen SR (Tylenol Arthritis Pain) 650 mg Extended-Release tabletIndications: Chronic polyarticular juvenile rheumatoid arthritis (HC) Take 1 Tablet (650 mg) by mouth every 8 hours. Max acetaminophen dose: 4000mg in 24 hrs. 270 Tablet 3 05/29/19 Active Additional Information Patient taking differently:650 mg Oral Q 8H,Max acetaminophen dose: 4000mg in 24 hrs. 1 in morning and 1 at night, Reported on 06/25/2023 naloxone (Narcan) 4 mg/actuation nasal sprayIndications:A t risk for injury due to substance overdose Inhale 1 [place] into affected nostril(s) each time if needed [...] every Friday and . 05/29/19 24 Active Shower ChairIndications:C hronic polyarticular juvenile rheumatoid arthritis (HC) For home use. 1 Each 06/04/19 24 Active Additional Information Patient not taking.Reported on 11/04/2023 rosuvastatin (CRESTOR) 10 mg tabletIndications: Hyperlipidemia, unspecified hyperlipidemia type Take 1 Tablet (10 mg) by mouth at bedtime. 90 Tablet 3 07/22/19 24 Active cyclobenzaprine (FLEXERIL) 5 mg tablet Take 5 mg by mouth at bedtime if needed for Muscle Spasm. 08/11/19 24 Active clobetasol 0.05% (TEMOVATE 0.05% OINTMENT) 0.05 % ointmentIndication s:Lichen sclerosus APPLY TOPICALLY TO AFFECTED AREA(S)TWO TIMES DAILY NEEDED TO LICHEN SCLEROSUS IN VAGINAL AREA. 60 g 08/25/19 24 Active busPIRone (BUSPAR) 15 mg tabletIndications: KATY (generalized anxiety disorder) Take 1 Tablet (15 mg) by mouth two times daily. 180 Tablet 1 09/15/19 24 Active meloxicam 15 mg tabletIndications: Osteoarthritis, unspecified osteoarthritis type, unspecified site Take 1 Tablet (15 mg) by mouth once daily. 30 Tablet 09/26/19 24 Active liothyronine (CYTOMEL) 5 mcg tabletIndications: Hypothyroidism, unspecified type Take 1 tablet (5 mcg) by mouth two times daily. 180 Tablet 1 10/08/19 24 Active progesterone micronized (PROMETRIUM) 100 mg capsuleIndications :Postmenopausal,Ho rmone replacement therapy Take 1 Capsule (100 mg) by mouth at bedtime. 90 Capsule 10/13/19 24 Active HYDROmorphone (DILAUDID) 2 mg tabletIndications: Blunt trauma of right thigh, initial encounter Take 0.5 Tablets (1 mg) by mouth every 6 hours if needed for Pain. 12 Tablet 10/15/19 24 Active medication order composerIndication s:Fibromyalgia [facility] Calcium Citrate, 250 mg 1x/day Metagenics, Magnesium L-Threonate, 1-2x/day Natural Factor, Activated Charcoal, PRN Nik, NAC, 500 mg 2x/day Nik Boswelia Phytosome, 350 mg 1-2x/day Estefania, Reservatrol 150 mg, 2x/day Orthomolecular, Fiber Plus Capsules, 3-4x/week Pure Encapsulations, Probio Mood, 1 capsules HS Pure Encaps, PureGenomics Multivitamin, 1x/day Pure Encaps, Circumasorb, 2x/day Vital Nutrients, Melatonin 10 mg HS Quicksilver, Liposomal NANNETTE, PRN Dos Bio, Anxious, PRN (homeopathic remedy) Dos Bio, Headache PRN (homeopathic remedy) Enzymedica, Apple Cider Vinegar - PRN NN Ultimate Peebles-3 - daily Body Bio Balance Oil (omega-3/omega-6 blend) - 2 capsules daily Body Bio PC - daily BodyBio Tudca - daily 10/22/19 24 Active vilazodone (VIIBRYD) 10 mg tabletIndications: Severe episode of recurrent major depressive disorder, without psychotic features (HC),KATY (generalized anxiety disorder) Take 1 Tablet (10 mg) by mouth once daily. Take for 7 days, then increase to 20 mg tablet. 7 Tablet 10/24/19 24 Active vilazodone 20 mg tabletIndications: Severe episode of recurrent major depressive disorder, without psychotic features (HC),KATY (generalized anxiety disorder) Take 1 Tablet (20 mg) by mouth once daily. 30 Tablet 10/24/19 24 Active triamcinolone 0.1% (KENALOG IN ORABASE) 0.1 % pasteIndications:S ore of lip Apply small amount to the upper lip once a day before bed for the next few weeks. 5 g 10/30/19 24 Active traZODone (DESYREL) 50 mg tabletIndications: Primary insomnia TAKE 1 TO 2 TABLETS (50-100 MG) BY MOUTH AT BEDTIME NEEDED FOR SLEEP 180 Tablet 11/04/19 24 Active HYDROmorphone (DILAUDID) 2 mg tabletIndications: Acute postoperative pain Take 0.5 Tablets (1 mg) by mouth every 6 hours if needed for Pain. 12 Tablet 05/15/19 24 024 Discontinued(Re order (E-cancel not sent)) progesterone micronized (PROMETRIUM) 100 mg capsuleIndications :Vaginal candidiasis Take 1 Capsule (100 mg) by mouth at bedtime. 05/29/19 24 024 Discontinued(Re order (E-cancel not sent)) escitalopram oxalate (LEXAPRO) 20 mg tabletIndications: KATY (generalized anxiety disorder),Severe episode of recurrent major depressive disorder, without psychotic features (HC) Take 1 Tablet (20 mg) by mouth every morning. 90 Tablet 06/24/19 24 024 Discontinued medication order composerIndication s:Fibromyalgia [facility] Calcium [...] Apple Cider Vinegar - temporarily ran out Peebles 3 fatty acids (brand unknown) Body Balance BodyBio Enzymedica Digest Gold - 1 capsule prior to meals Nik NAC - 1 capsule twice a day 06/25/19 24 024 Discontinued(*M edication adjustment) liothyronine (CYTOMEL) 5 mcg tabletIndications: Hypothyroidism, unspecified type Take 1 tablet (5 mcg) by mouth two times daily. 180 Tablet 1 07/09/19 24 024 Discontinued(Re order (E-cancel not sent)) traZODone (DESYREL) 50 mg tabletIndications: Primary insomnia TAKE 1 TO 2 TABLETS (50-100 MG) BY MOUTH AT BEDTIME NEEDED FOR SLEEP 180 Tablet 08/11/19 024 Discontinued(Re order (E-cancel not sent)) escitalopram oxalate (LEXAPRO) 20 mg tabletIndications: KATY (generalized anxiety disorder),Severe episode of recurrent major depressive disorder, without psychotic features (HC) TAKE ONE TABLET BY MOUTH EVERY MORNING 30 Tablet 10/18/19 24 024 Discontinued(*M ed complete/Regime n complete/Level of care change) Active Problems Problem Noted Date Diagnosed Date Other specified disorders of carbohydrate metabo lism [...] Problem Noted Date Diagnosed Date Resolved Date 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 3 Dysthymic disorder 11/26/2007 6 Unspecified drug dependence, in remission 01/25/2022 Encounters Date Type Department Care Team Description 11/04/2023 1:00 PM CDT Phone Office Visit [facility] [address] [place] [address] Keiko Downs [facility] Individual Therapy; Phone Visit 11/04/2023 11:15 AM CDT Phone Office Visit [facility] [address] [place] [address] Freda Serrano MD Phone Visit; Follow Up 11/04/2023 Travel 10/31/2023 Travel 10/30/2023 10:40 AM CDT Office Visit [facility] [address] [place] [phone] Tomas Mckeon MD Consult (Sore on inside on mouth. upper lips. Nasal congestion. Deviated septum) 10/29/2023 3:30 PM CDT Pharmacist Medication Management [facility] [address] [place] [address] Judie Carreno PharmD Pharmacist Medication Management ([facility] follow-up - [facility] patient - pain/MH) 10/29/2023 Travel 10/28/2023 11:30 AM CDT Phone Office Visit [facility] [address] [place] [address] Keiko Downs [facility] Individual Therapy; Phone Visit 10/28/2023 Travel 10/24/2023 11:15 AM CDT Phone Office Visit [facility] [address] [place] [address] Freda Serrano MD Follow Up; Phone Visit 10/24/2023 Travel 10/22/2023 11:05 AM CDT Office Visit [facility] [address] [place] [address] Kourtney Cherry PA Mouth/Lip Problem 10/22/2023 10:00 AM CDT Phone Office Visit [facility] [address] [place] [address] Jyoti Sellers PA Phone Visit; Follow Up (Labs, medication ) 10/22/2023 Travel 10/22/[address] [address] Jyoti Sellers PA Appointment (Cancellation note per patient) 10/21/2023 11:30 AM CDT Phone Office Visit [address] [phone] Keiko Downs, [facility] Individual Therapy; Phone Visit 10/21/2023 Travel 10/17/2023 2:30 PM CDT Procedure Only [address] [address] Tyler Parson L Ac Acupuncture 10/17/2023 10:30 AM CDT Pharmacist Medication Management [address] [address] Judie Carreno PharmD Pharmacist Medication Management ([facility] follow-up - [facility] patient - phone visit) 10/17/2023 Patient Outreach [address] [address] Aubree Nuñez, RN Primary RN Care Management (FCM referral ) 10/16/[address] [address] Judie Carreno PharmD Medication Management 10/16/2023 Travel 10/16/[address] [address] Freda Serrano MD Refill Request (Escitalopram Oxalate) 10/15/2023 1:45 PM CDT Ancillary Procedure [address] [address] 10/15/2023 1:00 PM CDT Office Visit [address] [address] Facundo Mijares MD Follow Up (Fell a week ago-pain right shoulder and right leg pain) 10/14/2023 1:00 PM CDT Phone Office Visit [facility] [address] [place] [phone] Kieko Downs LICSW Individual Therapy; Phone Visit 10/14/2023 Travel 10/13/2023 Telephone [facility] [address] [place] [address] Facundo Mijares MD Error-please disregard (as soon as possible); Appointment Request 10/10/2023 2:00 PM CDT Procedure Only [facility] [address] [place] [address] Tyler Parson L Ac Acupuncture 10/10/2023 Travel 10/09/2023 Refill [facility] [address] [place] [address] Nivia Bruno MD Refill Request 10/09/2023 Patient Outreach [facility] Management - Care Management Navigation/[facility] [address] [place] [address] Kulwant Palmer Care Management Intake (Engagement Outreach/) 10/08/2023 Patient Outreach [facility] [address] [place] [address] Judie Carreno, Zoraida Pharmacist Medication Management (Medication refills) 10/07/2023 2:30 PM CDT Patient Outreach [facility] Care Management - Advanced Care Team [address] [place] [address] Lisa Thakur, clinical psychiatrist Management (Transition) 10/07/2023 1:00 PM CDT Phone Office Visit [facility] [address] [place] [address] Keiko Downs LICSW Individual Therapy; Phone Visit 10/07/2023 Travel 10/03/2023 3:32 PM CDT - 10/03/2023 11:59 PM CDT Hospital Encounter [facility] [address] [place] [address] Nivia Burno MD Pain in left lower leg 10/03/2023 2:00 PM CDT Procedure Only [facility] [address] [place] [address] Tyler Parson L Ac 10/03/2023 11:15 AM CDT Office Visit [facility] [address] [place] [address] Nivia Bruno MD Ankle Injury (hurt ankle - wondering about the veins/worried about DVT); Derm Problem (itchy under breasts/) 10/03/2023 Telephone [facility] [address] [place] [address] Nivia Bruno MD Results (no DVT in leg) 10/03/2023 Travel 10/01/2023 Telephone [facility] [address] [place] [address] Freda Serrano MD DONNY 10/01/2023 Telephone [facility] [address] [place] [address] Nivia Bruno MD Appointment (PROLIA SHOT ) 09/30/2023 11:30 AM CDT Phone Office Visit [facility] [address] [place] [address] Keiko Downs, [facility] Individual Therapy; Phone Visit 09/30/2023 Nurse Triage [address] [address] Nivia Bruno MD Results (DEXA) 09/30/2023 Telephone [facility] [address] [place] [address] Nivia Bruno MD Imaging (RESULTS) 09/30/2023 Travel 09/26/2023 11:30 AM CDT Pharmacist Medication Management [facility] [address] [place] [address] Judie Carreno PharmD Pharmacist Medication Management ([facility] follow-up - [facility] patient - pain) 09/26/2023 9:00 AM CDT Office Visit [facility] [address] [facility] [address] Facundo Mijares MD Consult (Left ankle pain started 09/13/2023 after doing pool heel raises/) 09/26/2023 Travel 09/25/2023 2:00 PM CDT Procedure Only [facility] [address] [facility] [place] [address] Tyler Parson L Ac Acupuncture 09/24/2023 2:00 PM CDT Ancillary Procedure [facility] [address] [place] [address] 09/24/2023 Patient Outreach [facility] Care Management - Advanced Care Team [address] [place] [address] Dana Benitez Medication Management (R/S NO SHOW CMR) 09/24/2023 Travel 09/23/2023 1:00 PM CDT Phone Office Visit [facility] [address] [place] [phone] Keiko Downs ATTENDING PATHOLOGIST Individual Therapy; Phone Visit 09/23/2023 Travel 09/19/2023 2:00 PM CDT Procedure Only [facility] [address] [place] [address] Tyler Parson L Ac Acupuncture 09/19/2023 Travel 09/18/2023 1:00 PM CDT Patient Outreach [facility] - Advanced Care Team [address] [place] [address] Lisa Thakur, clinical psychiatrist Management (Follow up Outreach/JUDITH) 09/16/2023 3:40 PM CDT Office Visit [facility] [place] [facility] [address] [facility] [place] [address] Norberto Pretty MD Follow Up (Follow up after MRI ) 09/16/2023 1:00 PM CDT Phone Office Visit [facility] [address] [place] [phone] Keiko Downs ATTENDING PATHOLOGIST Individual Therapy; Phone Visit 09/15/2023 12:45 PM CDT Phone Office Visit [facility] [address] [place] [address] Freda Serrano MD Medication Management (Things are going okay, always cold wants to discuss); Phone Visit 09/15/2023 Telephone [facility] [address] [place] [address] Nivia Bruno MD Concerns 09/15/2023 Telephone [facility] [address] [place] [address] Facundo Mijares MD Questions 09/15/2023 Travel 09/15/2023 Telephone [facility] [address] [place] [address] Freda Serrano MD Appointment 09/14/2023 Orders Only [facility] Scanner 1 scan: (1-Ord) [facility], 09/14/2023 09/12/2023 2:00 PM CDT Procedure Only [facility] [address] [place] [address] Tyler Parson L Ac Acupuncture 09/12/2023 Travel 09/09/2023 1:00 PM CDT Phone Office Visit [facility] [place] [address] Keiko Downs [facility] Individual Therapy; Phone Visit 09/09/2023 Travel 09/05/2023 1:30 PM CDT Procedure Only [facility] [address] [place] [address] Tyler Parson L Ac Acupuncture 09/05/2023 Travel 09/04/2023 Patient Outreach [facility] Care Management - Advanced Care Team [facility] [place], [place] [phone] Lisa Thakur, clinical psychiatrist Management (Care Coordination) 09/03/2023 8:10 AM CDT Procedure Only [facility] [address] [place] [address] Facundo Mijares MD Procedure (Right shoulder subacromial and ... 09/03/2023 Telephone [facility] [address] [place] [address] Nivia Bruno MD Questions (RECLASSIFYING DXA SCAN) 09/03/2023 Patient Outreach [address] [address] Judie Carreno PharmD Pharmacist Medication Management (Returning Call/Voicemail) 09/03/2023 Travel 09/02/2023 1:00 PM CDT Phone Office Visit [facility] [address] [place] [address] Keiko Downs, [facility] Individual Therapy; Phone Visit 09/02/2023 Telephone [facility] [address] [place] [address] Booker Lloyd MD CALL BACK 09/02/2023 Telephone [facility] [address] [place] [address] Booker Lloyd MD Questions 09/02/2023 Telephone [facility] [address] [place] [address] Facundo Mijares MD Questions 09/01/2023 11:30 AM CDT Pharmacist Medication Management [address] [address] Judie Carreno, Zoraida Pharmacist Medication Management ([facility] follow-up - [facility] patient - RLS/Mood) 09/01/2023 Travel 08/29/2023 2:00 PM CDT Procedure Only [facility] [address] [place] [address] Tyler Parson L Ac Acupuncture (NO TREATMENT TODAY. ) 08/29/2023 Travel 08/29/2023 Patient Outreach [address] [address] Judie Carreno PharmD Pharmacist Medication Management (Lexapro questions - reschedule appointment) 08/28/2023 3:00 PM CDT Patient Outreach [facility] Care Management - Advanced Care Team [address] [place] [address] Lisa Thakur clinical psychiatrist Management (Follow up Outreach) 08/27/[address] [address] Facundo Mijares MD CALL BACK (right shoulder cortisone injection) 08/22/2023 2:00 PM CDT Procedure Only [address] [address] Tyler Parson L Ac Acupuncture 08/22/2023 Orders Only [facility] Scanner 1 scan: (1-Ord) INCOMING RECORDS-MRI, [facility], 08/22/2023 08/22/[address] [address] Nivia Bruno MD Refill Request (Clobetasol 0.05%) 08/22/2023 Travel 08/22/2023 Orders Only [facility] [place] [address] [facility] [address] [place] [address] Nivia Bruno MD 2 scans: (2-Ord) [place], HEAD/BRAIN WO CONTRAST, 08/18/2023 08/21/2023 3:40 PM CDT Office Visit [facility] [address] [place] [address] Nivia Bruno MD Urinary Problem (Urgency and frequency, 3 days); Referral 08/20/2023 1:00 PM CDT Pharmacist Medication Management [address] [address] Judie Carreno PharmD Pharmacist Medication Management ([facility] follow-up - [facility] patient - neuro) 08/20/2023 Travel 08/19/2023 1:00 PM CDT Phone Office Visit [facility] [address] [place] [address] Keiko Downs [facility] Individual Therapy; Phone Visit; Trmt Plan 08/19/2023 Travel 08/18/2023 Orders Only [facility] Scanner 1 scan: (1-Ord) [facility], ANGIO NECK WO CON, 08/18/2023 08/18/2023 Orders Only [facility] Scanner 1 scan: (1-Ord) [place], TMJ WO CONTRAST, 08/18/2023 08/15/2023 2:00 PM CDT Procedure Only [facility] [address] [place] [address] Tyler Parson L Ac Acupuncture 08/15/2023 Telephone [facility] [address] [place] [address] Nivia Bruno MD LETTER REQUEST (Massage ) 08/15/2023 Travel 08/15/2023 Telephone [facility] [place] [address] [phone] Norberto Pretty MD Referral (For MRA neck and MRI for Head) 08/14/2023 Patient Outreach [facility] [address] [place] [address] Judie Carreno, Zoraida Pharmacist Medication Management (Statin reaction) 08/14/2023 Telephone [facility] [place] [facility] [address] [place] [address] Norberto Pretty MD Medication Management (gadolinium/) 08/14/2023 Telephone [facility] [address] [place], [place] [phone] Regan Urias MD Questions (Gadolinium Allergy) 08/12/2023 1:00 PM CDT Phone Office Visit [facility] [address] [place] [phone] Keiko Downs [facility] Individual Therapy; Phone Visit 08/12/2023 Orders Only [facility] [address] [place] [address] Nivia Bruno MD Outside Order (Ordered by Booker Jewell ) 08/12/2023 Patient Outreach [facility] Care Management - Advanced Care Team [address] [place] [address] Lisa Thakur, clinical psychiatrist Management (Care Coordination) 08/12/2023 Travel 08/11/2023 Telephone [facility] [address] [place] [address] Freda Serrano MD Medication Management 08/11/2023 Refill [facility] [address] [place] [address] Freda Serrano MD Refill Request (Trazodone) 08/08/2023 1:30 PM CDT Procedure Only [facility] [address] [place] [address] Tyler Parson L Ac Acupuncture 08/08/2023 Travel 08/06/2023 11:30 AM CDT Pharmacist Medication Management [facility] [address] [place] [address] Judie Carreno, Zoraida Pharmacist Medication Management ([facility] follow-up - [facility] patient - drowsiness) 08/06/2023 Travel 08/05/2023 2:00 PM CDT Patient Outreach [facility] - Advanced Care Team [address] [place] [id number] Lisa Thakur, clinical psychiatrist Management (Follow up Outreach) from Last 3 Months Immunizations Name Administration [...] PHQ-2 Answer Date Recorded PHQ-2 TOTAL SCORE 4 11/04/2023 Social Connections Answer Date Recorded Frequency of [...] Outcome GA Total Labor Labor/2nd/3rd Weight Sex Type Anes PTL Venita A1 A5 Name Clin Last Filed Vital Signs Vital Sign Reading Time Taken Comments Blood Pressure 139/80 10/22/2023 11:16 AM CDT Pulse 117 10/22/2023 11:16 AM CDT Temperature 36.4 ??C (97.6 ??F) 09/03/2023 8:33 AM CD T Respiratory Rate 16 04/01/2022 3:21 PM [facility] Oxygen Saturation 95% 10/22/2023 11:16 AM CDT Inhaled Oxygen Concentration - - Weight 73.5 kg (162 lb) 10/03/2023 11:27 AM CDT Height 174 cm (5' 8.5) 04/14/2023 2:10 PM [facility] Body Mass Index 24.27 04/14/2023 2:10 PM [facility] Plan of Treatment Upcoming Encounters Date Type Department Care Team (Late st Contact Info) Description 11/07/2023 1:00 PM CDT Procedure Only [facility] [address] [place] [address] Tyler Parson L Ac [address] [place] [address] 11/10/2023 11:00 AM CDT Office Visit [facility] [address] [place] [address] Jyoti Sellers PA [address] [place] [address] 11/11/2023 1:00 PM CDT Phone Office Visit [facility] [address] [place] [phone] Keiko Downs LICSW [address] [place] [address] 11/17/2023 1:45 PM CDT Phone Office Visit [facility] [address] [place] [address] Freda Serrano MD [address] [place] [address] 11/18/2023 1:00 PM CDT Phone Office Visit [facility] [address] [place] [phone] Keiko Downs ATTENDING PATHOLOGIST [address] [place] [address] 11/19/2023 2:00 PM CDT Pharmacist Medication Management [facility] [address] [place] [address] Judie Carreno, PharmD [address] [place] [address] 11/21/2023 1:00 PM CDT Procedure Only [facility] [address] [place] [address] Tyler Parson L Ac [address] [place] [address] 11/25/2023 11:30 AM CDT Phone Office Visit [facility] [address] [place] [phone] Keiko Downs ATTENDING PATHOLOGIST [address] [place] [address] 11/28/2023 2:30 PM CDT Procedure Only [facility] [address] [place] [address] Tyler Parson L Ac [address] [place] [address] 12/02/2023 1:00 PM CDT Phone Office Visit [facility] [address] [place] [phone] Keiko Downs ATTENDING PATHOLOGIST [address] [place] [address] 12/03/2023 1:00 PM CDT Office Visit [facility] [address] [place] [address] Jyoti Sellers PA [address] [place] [address] 12/05/2023 1:00 PM CDT Procedure Only [facility] [address] [place] [address] Tyler Parson L Ac [address] [place] [address] 12/09/2023 1:00 PM CDT Phone Office Visit [facility] [address] [place] [phone] Keiko Downs ATTENDING PATHOLOGIST [address] [place] [address] 12/12/2023 2:00 PM CDT Procedure Only [facility] [address] [place] [address] Tyler Parson L Ac [address] [place] [address] 12/18/2023 2:00 PM CDT Procedure Only [facility] [address] [place] [address] Tyler Parson L Ac [address] [place] [address] 12/26/2023 2:00 PM CDT Procedure Only [facility] [address] [place] [address] Tyler Parson, L Ac [address] [place] [address] 01/02/2024 2:00 PM CDT Procedure Only [facility] [address] [place] [address] Tyler Parson L Ac [address] [place] [address] 01/09/2024 1:00 PM CDT Procedure Only [facility] [address] [place], [place] [address] Tyler Parson, [place] Ac [address] [place] [address] Health Maintenance Due Date Last Done Comments Influenza for age 50-64 01/11/2024 03/16/20, 03/27/2021, 02/24/2020, Additional history exists BMI (ht and wt on same day) for age 18+ 04/14/2024 04/14/2023, 06/06/2022, 03/26/2022, Additional history exists Mammogram for age 45-75 07/31/2024 08/01/19, 05/13/2022, 05/10/2021, Additional history exists Depression screening for age 12+ 11/03/2024 11/04/2023, 11/04/2023, 10/24/2023, Additional history exists Pap test for age [...] Diagnosis Comments ACUPUNCTURE PLAN OF CARE Routine 10/17/2023 3:18 PM CDT Other low back pain XR FEMUR 2 VIEWS RIGHT Routine 2:15 PM CDT Blunt trauma of right thigh, initial encounter SCAN CORRESP-LABORATORY RESULTS 10/14/2023 6:49 AM CDT ACUPUNCTURE PLAN OF CARE Routine 10/10/2023 2:55 PM CDT Other low back pain US VENOUS LOWER EXTREMITY LEFT STAT 10/03/2023 4:35 PM CDT Pain in left lower leg ACUPUNCTURE PLAN OF CARE Routine 10/03/2023 3:22 PM CDT Other low back pain ACUPUNCTURE PLAN OF CARE Routine 09/25/2023 4:07 PM CDT Other low back pain XR DXA BONE DENSITY 2 SITES AXIAL Routine 09/24/2023 2:28 PM CDT Osteopenia, unspecified location Menopause ACUPUNCTURE PLAN OF CARE Routine 09/19/2023 3:20 PM CDT Other low back pain SCAN-RADIOLOGY REPORT 09/14/2023 12:00 AM CDT ACUPUNCTURE PLAN OF CARE Routine 09/12/2023 2:29 [...] 3:29 PM CDT Visit for screening mammogram LIPID PANEL W REFLEX MEASURED LDL Routine 07/08/2023 12:07 PM [employer] Hyperlipidemia, unspecified hyperlipidemia type HPV THIN PREP Routine 10/04/2022 1:31 PM CDT Pap smear for cervical cancer screening SCAN-COLONOSCOPY 01/28/2022 1:00 PM CDT ANTI HIV 1/2 Routine 06/01/2018 4:02 PM [employer] Exposure to STD ANTI HCV Routine 09/30/2017 5:38 PM CDT STD exposure from Last 3 Months or Most Recently Relevant to Health Maintenance Results * XR FEMUR 2 VIEWS RIGHT (10/15/2023 2:15 PM CDT) Anatomical Region Laterality Modality FEMURS, FEMUR R Computed Radiogr aphy 10/16/2023 2:54 PM CDT Narrative 10/16/2023 2:54 PM CDT For Patients: ??As a result of the Cures Act, medical imaging exams and procedure reports are released immediately into your electronic medical record. ??You may view this report before your referring provider. ??If you have questions, please contact your health care provider. Indication: Trauma Technique: Two views right femur Comparison: None Findings: Right femoral hardware intact including right total hip arthroplasty hardware and right total knee arthroplasty hardware. Long fixation plate hardware along the femoral cortex also appears intact. No dislocation or acute fracture. Cerclage wire about the proximal femur is intact. Impression: No sign of acute injury. Dictated by Walter Haji MD @ 10/16/2023 2:54:18 PM (Electronically Signed) Procedure Note Walter Haji MD - 10/16/2023 For Patients: As a result of the Cures Act, medical imagingexams and procedure reports are released immediately into your electronicmedical record. You may view this report before your referring provider.If you have questions, please contact your health care provider. Indication: Trauma Technique: Two views right femur Comparison: None Findings: Right femoral hardware intact including right total hip arthroplastyhardware and right total knee arthroplasty hardware. Long fixation platehardware along the femoral cortex also appears intact. No dislocation oracute fracture. Cerclage wire about the proximal femur is intact. Impression: No sign of acute injury. Dictated by Walter Haji MD @ 10/16/2023 2:54:18 PM (Electronically Signed) Facundo Mijares MD GENERAL IMAGING * SCAN CORRESP-LABORATORY RESULTS (10/14/2023 6:49 AM CDT) Narrative 10/14/2023 6:49 AM CDT Ordered by an unspecified provider. Other Clinical Staff OTHER * US VENOUS LOWER EXTREMITY LEFT (10/03/2023 4:35 PM CDT) Anatomical Region Laterality Modality LEGS, LEG L, Abdomen Ultrasound 10/03/2023 4:52 PM CDT Narrative 10/03/2023 4:52 PM CDT For Patients: ??As a result of the Cures Act, medical imaging exams and procedure reports are released immediately into your electronic medical record. ??You may view this report before your referring provider. ??If you have questions, please contact your health care provider. Indication: Left leg pain Technique: Ultrasound venous lower extremity left utilizing grayscale, color flow and duplex Doppler techniques Comparison: None Findings: Sonographic evaluation of the venous system of the left lower extremity from the common femoral through the greater saphenous, femoral, popliteal and calf veins demonstrates no echogenic debris, normal color flow, normal duplex Doppler augmented waveforms and normal compressibility. No popliteal cyst. Two images of the left ankle at the area of pain demonstrates no superficial cysts or masses. Impression: Negative study. Dictated by Power Aleman MD @ 10/03/2023 4:52:56 PM (Electronically Signed) Procedure Note Power Aleman MD - 10/03/2023 For Patients: As a result of the Cures Act, medical imagingexams and procedure reports are released immediately into your electronicmedical record. You may view this report before your referring provider.If you have questions, please contact your health care provider. Indication: Left leg pain Technique: Ultrasound venous lower extremity left utilizing grayscale, color flow andduplex Doppler techniques Comparison: None Findings: Sonographic evaluation of the venous system of the left lower extremityfrom the common femoral through the greater saphenous, femoral, poplitealand calf veins demonstrates no echogenic debris, normal color flow, normalduplex Doppler augmented waveforms and normal compressibility. Nopopliteal cyst. Two images of the left ankle at the area of paindemonstrates no superficial cysts or masses. Impression: Negative study. Dictated by Power Aleman MD @ 10/03/2023 4:52:56 PM (Electronically Signed) Nivia Bruno MD [place] * (ABNORMAL) XR DXA BONE DENSITY 2 SITES AXIAL (09/24/2023 2:28 PM CDT) Anatomical Region Laterality Modality Spine, HIPS, HIPL, HIPR Other Impressions 09/30/2023 1:49 PM CDT Osteopenia. RECOMMENDATIONS: The National Osteoporosis Foundation recommends pharmacologic treatment for patients with T-scores of -2.5 or less, patients with prior history of fragility fractures, or patients with 10-year probability of greater than 3% at hips or greater than 20% of suffering major osteoporotic fractures. Recommend continued optimization of calcium and vitamin D intake through dietary means and/or supplementation and regular exercise. Consider pharmacologic therapy for osteopenia with increased fracture risk. Follow-up bone density reading in 2 years if therapy initiated to assess therapeutic efficacy. Ann Jay PA-C [facility] 09/30/2023 Narrative 09/30/2023 1:49 PM CDT For Patients: Results are automatically released to your [employer] account once available, in compliance with federal regulations. This means that you may see your results before your provider has had a chance to review them. Please allow 2-3 business days for your provider to comment on the results. XR DXA Bone Mineral Density (BMD) EXAM LOCATION: [address] [address] PATIENT NAME: Juliette Brown DATE OF : 1960 EXAM DATE: 09/24/2023 REQUESTING PROVIDER: Nivia Bruno MD GENDER AT : female HEIGHT: 5' 8.5 (04/14/2023) WEIGHT: ??158 lb 14.4 oz (09/16/2023) MENOPAUSAL STATUS: Postmenopausal RACE/ETHNICITY: White RISK FACTORS: Family History of Osteoporosis, Family History of Hip Fracture (parental), History of Fragility Fracture (at a major site), Rheumatoid Arthritis, and White Race CURRENT MEDICATION FOR BONE LOSS: NONE INDICATION: Follow-up of existing osteopenia and Menopause COMPARISON DATE(S): 2021 DXA scans are compared to prior studies for a patient only when the two (or more) studies were performed on the same scanner. It is not possible to compare data generated on one scanner to data from another because there are not standards in DXA equipment. This applies even if the two scanners are made by the same car pick up driver. PROCEDURE: Dual-energy x-ray absorptiometry performed with routine technique. Reporting is completed in the form of a T-score. The T-score represents the standard deviation from peak bone mass based on young healthy adult. A Z-score is used for diagnosis in premenopausal women, and for men under the age of 50. FINDINGS: RESULT LUMBAR SPINE L1 - L4 BMD: 0.990 g/cm2 T-Score: - 1.6 Z-Score: - 0.3 Change from prior in 2021: ??Decrease 0.1%. RESULTS FEMUR Left femoral neck BMD: 0.860 g/cm2 T-Score: - 1.3 Z-Score: + 0.0 Change from prior in 2021: ??Increase 1.5%. Left hip BMD: 0.778 g/cm2 T-Score: - 1.8 Z-Score: - 0.9 Change from prior in 2021: ??Increase 1.6%. WHO criteria: Normal: T-score at or above -1 SD Osteopenia: T-score between -1.1 and -2.4 SD Osteoporosis: T-score at or below -2.5 SD FRAX RISK CALCULATION (USED FOR OSTEOPENIA ONLY): 10-year probability of major osteoporotic fracture: 26.7%. 10-year probability of hip fracture: 3.2%. Nivia Bruno MD DEXA * SCAN-RADIOLOGY REPORT (09/14/2023 12:00 AM CDT) Anatomical Region Laterality Modality Other Scanner OTHER * BEDSIDE US STUDY ARCHIVE (09/03/2023 2:23 PM CDT) Narrative [...] None Seen /HPF 08/21/2023 3:58 PM CDT [facility] WBC 0-2 0-2, 3-5, None Seen /HPF 08/21/2023 3:58 PM CDT [facility] BACTERIA Few None Seen, Rare, Few Bacteria/ HPF 08/21/2023 3:58 PM CDT [facility] EPITHELIAL CELLS Few None Seen, Few Epi/HPF 08/21/2023 3:58 PM CDT [facility] Urine URINE SPECIMEN / Unknown Non-Blood / Unknown 08/21/2023 3:53 PM CDT 08/21/2023 3:53 PM CDT Nivia Bruno MD URINE Performing Organization Address City/[facility]/ZIP Co de Phone Number [facility] [address] [place] [address], * URINE CULTURE (08/21/2023 3:53 PM CDT) CULTURE 10-50,000 CFU/mL of multiple organisms, probable contaminants 08/23/2023 1:34 PM CDT [facility] Urine URINE SPECIMEN / Unknown Non-Blood / Unknown 08/21/2023 3:53 PM CDT 08/21/2023 3:53 PM CDT Nivia Bruno MD MICROBIOLOGY [facility] [address] [place] [address], [place] * (ABNORMAL) UA W/ SEDIMENT EXAM REFLEXED PER CRITERIA (08/21/2023 3:53 PM CDT) COLOR Yellow Yellow Color 08/21/2023 3:58 PM CDT [facility] CLARITY Clear Clear Clarity 08/21/2023 3:58 PM CDT [facility] SPECIFIC GRAVITY,URINE 1.015 1.010, 1.015, 1.020, 1.025 08/21/2023 3:58 PM CDT [facility] PH,URINE 5.0(A) 6.0, 7.0, 8.0, 5.5, 6.5, 7.5, 8.5 08/21/2023 3:58 PM CDT [facility] UROBILINOGEN, QUALITATIVE Normal Normal EU/dl 08/21/2023 3:58 PM CDT [facility] PROTEIN, URINE Negative Negative mg/dL 08/21/2023 3:58 PM CDT [facility] GLUCOSE, URINE Negative Negative mg/dL 08/21/2023 3:58 PM CDT [facility] KETONES,URINE Negative Negative mg/dL 08/21/2023 3:58 PM CDT [facility] BILIRUBIN,URI NE Negative Negative 08/21/2023 3:58 PM CDT [facility] OCCULT BLOOD,URINE Negative Negative 08/21/2023 3:58 PM CDT [facility] NITRITE Negative Negative 08/21/2023 3:58 PM CDT [facility] LEUKOCYTE ESTERASE Trace(A) Negative 08/21/2023 3:58 PM CDT [facility] Urine URINE SPECIMEN / Unknown Non-Blood / Unknown 08/21/2023 3:53 PM CDT 08/21/2023 3:53 PM CDT Nivia Bruno MD URINE [facility] [address] [place] [address], [place] [phone] * MR ANGIO STROKE HEAD WO AND [...] care provider. XR MAMMO EVA BILAT SCREEN [[id number]] CLINICAL HISTORY: ??This is an asymptomatic 63 y.o. patient. INDICATION FOR EXAM: Mammogram Screening. TECHNIQUE: CC & MLO views were obtained. ??This study was evaluated with the assistance of Computer-Aided Detection. Breast Tomosynthesis was used in interpretation. COMPARISON FILM: Yes 05/13/22 [facility] 05/10/21 [facility] FINDINGS: ??The breasts have scattered areas of fibroglandular density. There are no dominant masses, suspicious micro calcifications or areas of architectural distortion. Nivia Bruno MD MAMMO * (ABNORMAL) LIPID PANEL W REFLEX MEASURED LDL (07/08/2023 12:07 PM [employer] [facility]) CHOLESTEROL,TOTAL 285(H) 100 - 199 mg/dL 07/08/2023 9:55 PM [employer] [facility] Comment: Cholesterol, Total Reference Ranges Desirable <200 mg/dL Borderline 200-239 mg/dL High >=240 mg/dL TRIGLYCERIDES 97 <150 mg/dL 07/08/2023 9:55 PM [employer] [employer] [facility] HDL CHOLESTEROL 76 >40 mg/dL 9:55 PM [employer] NON-HDL CHOLESTEROL 209(H) <145 mg/dl 07/08/2023 9:55 PM [employer] CHOL/HDL RATIO 3.75 <4.50 07/08/2023 9:55 PM [employer] LDL CHOLESTEROL 190(H) <=130 mg/dL 07/08/2023 9:55 PM [employer] VLDL CHOLESTEROL 19 <=30 mg/dL 07/08/2023 9:55 PM [employer] PROVIDER ORDERED STATUS RANDOM 07/08/2023 9:55 PM [employer] Blood BLOOD SPECIMEN / Unknown Venipuncture / Unknown 07/08/2023 12:07 PM [employer] 07/08/2023 12:07 PM [employer] Nivia Bruon MD CHEMISTRY [facility] [address] [place] [id number] * HPV HIGH RISK (10/04/2022 1:31 PM CDT) TYPE 16 Negative Negative 10/10/2022 4:40 PM CDT [facility] TYPE 18 Negative Negative 10/10/2022 4:40 PM CDT [facility] OTHER HIGH RISK TYPES Negative Negative 10/10/2022 4:40 PM CDT [facility] Other (Cervical) Non-Blood / Unknown 10/04/2022 1:31 PM CDT 10/08/2022 2:11 PM CDT Narrative [facility] - 10/10/2022 4:40 PM CDT HPV types 16, 18, 31, 33, 35, 39, 45, 51, 52, 56, 58, 59, 66 and 68 DNA were undetectable or below the pre-set threshold. Methodology: Jacek Karen 4800 HPV Test Nivia Bruno MD MICROBIOLOGY [facility] [address] [place] [address], [place] * SCAN-COLONOSCOPY (01/28/2022 1:00 PM CDT) Narrative Procedure Note Edison Ceron MD - 01/28/2022 12:02 PM CDT [facility] [address], [address], [place] [address] Patient Name: Juliette Brown Gender: Female Exam Date: 01/28/2022 Visit Number: [id number] Age: 61 Years 9 Months Date of : 1960 Attending MD: Edison Ceron MD Medical Record#: [id number] ----- Procedure: Colonoscopy Indications: Recent history of [...] Race: White Ethnicity: Not or Preferred Language: South African cc: Nivia Bruno MD [facility] [phone] Edison Ceron MD OTHER * ANTI HIV 1/2 (06/01/2018 4:02 PM [employer]) HIV-1/HIV-2 ANTIBODY Non-Reacti ve Non-Reacti ve 06/01/2018 8:08 PM [employer] Comment:HIV-1 p24 and HIV-1/ HIV-2 Ab not detected. Blood BLOOD SPECIMEN / Unknown Venipuncture / Unknown 06/01/2018 4:02 PM [employer] 06/01/2018 4:02 PM [employer] Nivia Bruno MD SEND [facility]S [facility] [address] [place] [address], * ANTI HCV (09/30/2017 5:38 PM CDT) HEPATITIS C ANTIBODY Non-React mathieu Non-React mathieu 10/01/2017 2:41 PM CDT [facility] Comment:Antibodies to HCV no t detected; does not exclude the possibility of exposure to HCV. Blood BLOOD SPECIMEN / Unknown Venipuncture / Unknown 09/30/2017 5:38 PM CDT 09/30/2017 5:38 PM CDT Kourtney GUERRERO [facility] 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
--- OUTSIDE RECORDS SUMMARY | 2023-11-04 15:57 | XMS_ITS | Encounter Summary ---
Author Organization [facility] Address [address] [place] [address]. [place] [address] Care Team Providers Care Database Administration Manager Name Role Phone Kelsi Handy MD Unavailable [phone] Nivia Bruno MD Primary Care Provider [phone] Encounter Details Date Type Department Care Team ([facility] Contact Info) Description 09/25/2021 Telephone [facility] Intake [address] [place] [address] Generic, Behavioral Intake, Social History [...] Patient Name: ?? Location of programming: [facility] Start Date: 09/27/21 Group (BHxxxxx on #days of the week# at #start time to end time#): 55+ clinic 1 Provider (name of MD):kerry Number of visits to be scheduled: 1 Duration of Appointment in minutes: 120 mins Visit Type (Robert - [phone] / Zoom - [phone] / In-person or Treatment - 870) :zoom [phone] Additional notes: documented in this encounter Plan of Treatment Not on file documented as of this encounter Visit Diagnoses Not on filedocumented in this encounter Additional Health Concerns Assessment Noted Time PHQ-9 Depression Total Score: 7 06/14/19 22 10:59 AM SOFTWARE 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
--- OUTSIDE RECORDS SUMMARY | 2023-11-04 15:57 | XMS_ITS | Clinical Summary ---
Author Organization [facility] Address [address] [place] [address] Care Team Providers Care Home Based Assistant Name Role Phone Needs Pcp, Assignment Primary Care Provider [phone] Source Comments You are receiving this document as you are listed as the primary care provider,follow-up provider, or the patient has been referred to you for consultation.This is in compliance with the Medicare and[facility] EHR Incentive Program,which states Providers who transition their patient to another setting of careor provider of care or refers their patient to another provider of care shouldprovide summary care record for each transition of care or referral. Channel Intellect Allergies Active Allergy Reactions Criticality Noted Date [...] (OCEAN) 0.65 % nasal solution Place 1 Haynes into both nostrils every 2 hours as needed for Congestion. Active bacitracin-polymyx in b (POLYSPORIN) [id number] UNIT/GM ointmentIndication s:dry nose Apply topically two [...] Overview: Added automatically from request for surgery [id number] Sarcoidosis, lung 06/01/2019 Recurrent major depressive disorder [...] Encounters Date Type Department Care Team Description 10/08/2023 2:15 PM CDT E-Visit [address] [address] Leif Stewart PA-C Chief Comp: Follow-up, NOS 10/08/2023 Orders Only HIM DEPARTMENT Provider, MD Kane 10/01/2023 12:45 PM CDT Office Visit [address] [address] Leif Stewart PA-C Age-related osteoporosis without current pathological fracture (HRC) (Primary Dx) 09/03/[address] [address] Leif Stewart PA-C QUESTIONS, GENERAL from Last [...] (145 lb 12.8 oz) 07/16/2019 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 Height 172.7 cm (5' 8) 07/15/2019 9:30 PM 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 Body Mass Index 22.17 07/15/2019 9:30 PM 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 Plan of Treatment Health Maintenance Due Date Last Done Comments Cervical Cancer Screening Due 1959 Colon Cancer Screening Plan Due 1960 Medicare Annual Wellness Visit 1960 Cholesterol 2004 Influenza (Season Ended) 2024 022, 03/27/2021, 02/24/2020, Additional history exists Mammogram 07/31/2024 08/01/2023, 06/2022, 05/10/2021, Additional history exists DTaP/Tdap/Td (4 - Tdap) 05/31/2026 05/31/19 17, 09/30/2005, 09/30/2005 HepA Aged Out 04/27/2008 No longer eligi ble based on patient's age to complete this topic Pneumococcal Aged Out 03/25/2017, 06/2009, 07/11/2009, Additional history exists No longer eligible based on patient's age to complete this topic HIV Screening (Preventive Services) Completed 08/25/2018, 06/01/2018 Hep C Screening (Preventive Services) Completed 08/25/2018 Zoster/Shingles Completed 08/28/2020, 05/11/2020 COVID-19 Vaccine Completed 06/11/2023, 04/2022, 02/21/2021, Additional history exists HepB Aged Out No longer eligi ble [...] this topic Medical Devices Implanted Type Area Central Lab Technician Device Identifier Shelf Expiration Date Model / Serial / Lot Chip Canc Crouton 30cc - [id number] Implanted:Qty: 1 on 07/07/2019 by Tobias Martin MD at [facility] DEVICE Right: LEG [employer] - [employer] 06/30/2023 [id number] / [id number] / [id number] Chip Canc Crouton 30cc - [id number] Implanted:Qty: 1 on 07/07/2019 by Tobias Martin MD at [facility] DEVICE Right: LEG [employer] - [employer] 06/30/2023 [id number] / [id number] / [id number] Procedures Procedure Name Priority Date/Time Associated Diagnosis Comments BONE DENSITY 10/08/2023 MM MAMMOGRAM SCREENING BILAT W 3D EVA W CAD Routine 08/01/2023 3:29 PM CDT HIV 1/2 AG/AB 4TH GEN Routine 08/25/2018 11:24 AM CDT Multiple joint pain HEPATITIS C ANTIBODY, WITH REFLEX Routine 08/25/2018 11:24 AM CDT Multiple joint pain from Last 3 Months or Most Recently Relevant to Health Maintenance Results * BONE DENSITY (10/08/2023) Anatomical Region Laterality Modality Other Interface Provider DUMMY/OTHER/AR * HIV 1/2 Ag/Ab 4th Generation (08/25/2018 11:24 AM CDT) HIV 1/2 Antigen/Antib jorje (4th generation) Negative (Non Reactive) Negative (Non Reactive) 08/25/2018 4:34 PM CDT [facility] Comment:HIV-1 p24 Antigen an d HIV-1/HIV-2 Antibody not detected Blood Venipuncture / Unknown 08/25/2018 11:24 AM CDT 08/25/2018 11:24 AM CDT Carin Rainey MD LAB_1 Performing Organization Address City/[facility] Co de Phone Number [facility] [place], [place] [phone] [place] [address] * HCAB - Hepatitis C Virus Paula with Reflex In-House (08/25/2018 11:24 AM CDT) Hepatitis C Antibody Negative (Non Reactive) Negative (Non Reactive) 08/25/2018 4:34 PM CDT [facility] Comment:Antibodies to HCV no t detected. Does not exclude the possiblity of exposure to HCV. Blood Venipuncture / Unknown 08/25/2018 11:24 AM CDT 08/25/2018 11:24 AM CDT Carin Rainey MD LAB_1 Performing Organization Address 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
--- OUTSIDE RECORDS SUMMARY | 2023-11-04 15:57 | XMS_ITS | Encounter Summary ---
Author Organization [place] Address [facility] [place] [address] Care Team Providers Care Manager Store Name Role Phone Heladio Martins MD Primary Care Provider Kelsi Glez MD Unavailable [phone] Nivia Bruno MD Primary Care Provider [phone] Encounter Details Date Type Department Care Team (Latest Contact Info) Description 03/06/2021 [facility] Treatment Plan [facility] [address] [place] [phone] Dav Tierney MD [address] [place] [address] Megan Ruiz, SHANNON Major depressive [...] documented as of this encounter Care Teams Manager Store Relationship Specialty Start Date End Date Heladio Martins MD PCP - General Internal Medicine 03/05/16 03/21/21 Nivia Bruno MD [address] [facility] [place] [address] PCP - General 03/22/21 Kelsi Handy MD [address] [place] [address] Assigned OBGYN Provider 04/23/20 3 documented as of this encounter
--- OUTSIDE RECORDS SUMMARY | 2023-11-04 15:57 | XMS_ITS | Encounter Summary ---
Author Organization [employer] Address [address] [place] [address] Care Team Providers Care Dimensional Inspector Name Role Phone Heladio Martins MD Primary Care Provider Kelsi Glez MD Unavailable [phone] Nivia Bruno MD Primary Care Provider [phone] Encounter Details Date Type Department Care Team ([facility] Contact Info) Description 03/07/2021 [facility] Health Intake [address] [place] [phone] Generic, Behavioral Intake, Social History Tobacco Use [...] program (below request). Will be starting in + program instead. Patient Name: Juliette Brown Location [...] 03/06/2021 7:37 PM CDT To: Cheyanne Santana [facility], Quentin Hagan, # Subject: Schedule for PHP on Friday Scheduling Request Patient Name: Juliette Brown Location of programming: [facility] Start Date: 03/12 Group: [id number] 9am to 3pm Attending Provider (): Trent Number of visits to be scheduled: 50 Duration of Appointment in minutes: 360 Visit Type: Zoom - 2651 Additional notes: Patient is currently in PHP at [facility]. She has Medicare and BCBS. Please check ifinsurance will cover another PHP program. Patient was given [employer] phone number. * Telephone Encounter - Jen Serrano - 03/07/2021 7:50 AM CDT ----- Message from KETTY Rollins sent at 03/06/2021 7:37 PM CDT ----- Regarding: Schedule for PHP on Friday Scheduling Request Patient Name: Juliette Brown Location of programming: [facility] Start Date: 03/12 Group: [id number] 9am to 3pm Attending Provider (): Cristianoe Number of visits to be scheduled: 50 Duration of Appointment in minutes: 360 Visit Type: Zoom - 2657 Additional notes: Patient is currently in PHP at [facility]. She has Medicare and BCBS. Please check ifinsurance will cover another PHP program. Patient was given [employer] phone number. documented in this encounter Plan of Treatment Not on file documented as of this encounter Visit Diagnoses Not on filedocumented in this encounter Additional Health Concerns Assessment Noted Time PHQ-9 Depression Total Score: 21 021 12:28 PM CDT documented as of this encounter Care Teams Dimensional Inspector Relationship Specialty Start Date End Date Heladio Martins MD PCP - General Internal Medicine 03/05/16 03/21/21 Nivia Bruno MD [address] [facility] [place] [address] PCP - General 03/22/21 Kelsi Handy MD [address] [place] [address] Assigned OBGYN Provider 04/23/20 3 documented as of this encounter
--- OUTSIDE RECORDS SUMMARY | 2023-11-04 15:57 | XMS_ITS | Referral Summary ---
Author Organization [place] Address [address] [place] [address] Care Team Providers Care Print Shop Stenographer Name Role Phone Nivia Bruno MD Primary Care Provider [phone] Allergies Active Allergy Reactions Criticality Noted Date [...] Take 1 tablet by mouth 07/22/2014 Active Mozelle-3 1000 MG CAPS 04/02/2016 Acti ve Saline (SODIUM CHLORIDE) 0.65 % SOLN [place] 1 spray in nostril 01/28/2015 Active traZODone [...] BASIC METABOLIC PANEL Routine 06/23/2017 6:00 AM TRAINING AND DEVELOPMENT OFFICER from Last 3 Months or Most Recently Relevant to Health Maintenance Results * Basic metabolic panel (06/23/2017 6:00 AM TRAINING AND DEVELOPMENT OFFICER) Sodium 139 136 - 145 mmol/L 06/23/2017 10:13 AM [facility] Potassium 4.2 3.5 - 5.0 mmol/L 06/23/2017 10:13 AM [facility] Chloride 103 98 - 107 mmol/L 06/23/2017 10:13 AM [facility] Carbon Dioxide (CO2) 29 22 - 31 mmol/L 06/23/2017 10:13 AM [facility] Anion Gap 7 5 - 18 mmol/L 06/23/2017 10:13 AM [facility] Glucose 105 70 - 125 mg/dL 06/23/2017 10:13 AM [facility] Calcium 9.4 8.5 - 10.5 mg/dL 06/23/2017 10:13 AM [facility] Urea Nitrogen 16 8 - 22 mg/dL 06/23/2017 10:13 AM [facility] Creatinine 0.69 0.60 - 1.10 mg/dL 06/23/2017 10:13 AM [facility] GFR Estimate If Black >60 >60 mL/min/1.7 3m2 06/23/2017 10:13 AM TRAINING AND DEVELOPMENT OFFICER [facility] GFR Estimate >60 >60 mL/min/1.7 2 06/23/2017 10:13 AM [facility] Blood specimen (specimen) STRUCTURE OF LEFT UPPER LIMB / Unknown Venipuncture / Unknown 06/23/2017 6:00 AM TRAINING AND DEVELOPMENT OFFICER 06/23/2017 9:50 AM TRAINING AND DEVELOPMENT OFFICER Narrative [facility] - 06/23/2017 10:13 AM TRAINING AND DEVELOPMENT OFFICER Fasting Glucose reference range is 70-99 mg/dL per [place] Diabetes Association (ADA) guidelines. Rosmery Simpson MD LAB - BLOOD ORDER [facility] [address] [address], [facility] [address] [address] from Last 3 Months or Most Recently Relevant to Health Maintenance Advance Directives For more information, please contact: [phone] * Full Code (Latest Code Status on File) Date Activated Date Inactivated Comments 04/16/2016 1:58 AM 04/22/2016 3:55 PM Care Teams Print Shop Stenographer Relationship Specialty Start Date End Date Nivia Bruno MD [facility] - General 03/22/21
--- OUTSIDE RECORDS SUMMARY | 2023-11-04 15:57 | XMS_ITS | Encounter Summary ---
Author Organization [place] Address [address] [place] [address] Care Team Providers Care Elevator Operator Service Name Role Phone Kelsi Handy MD Unavailable [phone] Nivia Bruno MD Primary Care Provider [phone] Encounter Details Date Type Department Care Team ([facility] Contact Info) Description 06/13/2021 Telephone [facility] Behavioral Health Intake [address] [place] [address] Generic, Behavioral Intake, Social History [...] KETTY Lynn sent at 06/29/2021 11:41 AM AGRICULTURE INSTRUCTOR ----- Regarding: new start Clinic 1 on 07/05 Scheduling Request Patient Name: Juliette Brown Location of programmin+ Start Date: June Group: Clinic 1 on at 1:00 to 3:00PM Attending Provider (MD): 12 Number of visits to be scheduled: 12 Duration of Appointment in minutes: 120 min Visit Type: Zoom - 2657 Additional notes: CULTURE INSTRUCTOR * Telephone Encounter - Jen Serrano - 06/13/2021 9:38 AM CST ----- Message from SHANNON Warner sent at 06/13/2021 9:12 AM AGRICULTURE INSTRUCTOR ----- Regarding: add appointment Scheduling Request Patient Name: ?? Location of programming: [facility] 55+ Start Date:06/13/21 Group (BHxxxxx on #days of the week# at #start time to end time#): 55+ B1 M,W,F 1-4pm Provider (name of MD): iNall Number of visits to be scheduled: 1 Duration of Appointment in minutes: 180 mins Visit Type (Robert - 2922 / Zoom - 0817 / In-person or Treatment - 870) :2657-zoom Additional notes: CULTURE INSTRUCTOR documented in this encounter Plan of Treatment Not on file documented as of this encounter Visit Diagnoses Not on filedocumented in this encounter Additional Health Concerns Assessment Noted Time PHQ-9 Depression Total Score: 7 06/14/19 22 10:59 AM AGRICULTURE INSTRUCTOR documented as of this encounter Care Teams Elevator Operator Service Relationship Specialty Start Date End Date Nivia Bruno MD [address] [place] [address] PCP - General 03/22/21 Kelsi Handy MD [address] [place] [address] Assigned OBGYN Provider 04/23/20 3 documented as of this encounter
--- OUTSIDE RECORDS SUMMARY | 2023-11-04 15:57 | XMS_ITS | Encounter Summary ---
Author Organization [place] Address [address] [place] [address] Care Team Providers Care [facility] Name Role Phone Heladio Martins MD Primary Care Provider Klesi Glez MD Unavailable [phone] Nivia Bruno MD Primary Care Provider [phone] Reason for Visit * Reason Onset Date Comments MH/CD Inpatient 04/15/2016 Encounter Details Date Type Department Care Team ([facility] Contact Info) Description 04/15/2016 Telephone [facility] Behavioral Health Intake [address] [place] [address] Generic, Behavioral Intake, MD MH/CD Inpatient Social [...] as it is after 10pm); unit notified USE PLANNER documented in this encounter Plan of Treatment Not on file documented as of this encounter Visit Diagnoses Not on filedocumented in this encounter Care Teams [facility] Relationship Specialty Start Date End Date Heladio Martins MD PCP - General Internal Medicine 03/05/16 03/21/21 Nivia Bruno MD [address] [place] [address] PCP - General 03/22/21 Kelsi Handy MD [address] [place] [address] Assigned OBGYN Provider 04/23/20 3 documented as of this encounter
--- OUTSIDE RECORDS SUMMARY | 2023-11-04 15:58 | XMS_ITS | Encounter Summary ---
Author Organization [employer] Address [address], [place] [address] Care Team Providers Care Park Attendant Name Role Phone Needs Pcp, Assignment Primary Care Provider [phone] Reason for Visit * Reason Comments QUESTIONS, GENERAL Encounter Details Date Type Department Care Team (Late st Contact Info) Description 09/03/2023 Telephone [facility] [address] [place] [address] Leif Stewart PA-C [address] [facility] [place] [address] QUESTIONS, GENERAL Social History Tobacco Use Types [...] recommended that she reschedule. Consult scheduled with Leif for 09/09. Will route to Leif regarding [...] care. No additional information was provided to property underwriter. Please advise. Have you been seen for this recently?: No If we are unable to reach you can we leave a detailed message on your voicemail? Yes If we are unable to reach you can we send you a message in Meda[place]? Yes [Sew Out Operator/Whey Department Operator: Relay to patient; We make every effort to get back to you sameday, however it may take 1-2 business days depending on the nature of the communication.] documented in this encounter Plan of Treatment Not on file documented as of this encounter Visit Diagnoses Not on filedocumented in this encounter Care Teams Park Attendant Relationship Specialty Start Date End Date Needs Pcp, [place] [address] PCP - General 02/28/21 documented as of this encounter
--- OUTSIDE RECORDS SUMMARY | 2023-11-04 15:58 | XMS_ITS | Encounter Summary ---
Author Organization [facility] Address [address] [place] [address] Care Team Providers Care Sole Tacker Name Role Phone Needs Pcp, Assignment Primary Care Provider [phone] Encounter Details Date Type Department Care Team (Late st Contact Info) Description 07/16/2019 Lab Requisition [facility] [address] [facility] [place], [place] [address] Lul Hunter MD [address] [place], [place] [id number] Encounter for surgical aftercare following surgery on [...] organs documented in this encounter Care Teams Sole Tacker Relationship Specialty Start Date End Date Needs Pcp, Bertha [facility] [place] [address] PCP - General 02/28/21 documented as of this encounter
--- OUTSIDE RECORDS SUMMARY | 2023-11-04 15:58 | XMS_ITS | Encounter Summary ---
Author Organization [employer] Address [address] [address] Care Team Providers Care Shower Screen Installer Name Role Phone Needs Pcp, Assignment Primary Care Provider [phone] Encounter Details Date Type Department Care Team (Late st Contact Info) Description 07/12/2019 Lab Requisition [facility] [address] [facility] [place] [address] Lul Hunter MD [address] [place], [place] [id number] Encounter for surgical aftercare following surgery on [...] BASIC METABOLIC PANEL Routine 07/13/2019 7:00 AM SURVEY RESEARCH PROFESSOR Encounter for surgical aftercare following surgery on the nervous system COMPLETE BLOOD COUNT-NO DIFF Routine 07/13/2019 7:00 AM SURVEY RESEARCH PROFESSOR Encounter for surgical aftercare following surgery on the nervous system documented in this encounter Results * (ABNORMAL) Basic Metabolic Panel (07/13/2019 7:00 AM SURVEY RESEARCH PROFESSOR) Sodium 136 136 - 145 mmol/L 07/13/2019 12:35 PM SURVEY RESEARCH PROFESSOR [facility] Potassium 4.7 3.5 - 5.1 mmol/L 07/13/2019 12:35 PM SURVEY RESEARCH PROFESSOR [facility] Chloride 100 98 - 109 mmol/L 07/13/2019 12:35 PM SURVEY RESEARCH PROFESSOR [facility] CO2 27 20 - 29 mmol/L 07/13/2019 12:35 PM SURVEY RESEARCH PROFESSOR [facility] Anion Gap 9 7 - 16 mmol/L 07/13/2019 12:35 PM SURVEY RESEARCH PROFESSOR [facility] Calcium 9.2 8.4 - 10.4 mg/dL 07/13/2019 12:35 PM SURVEY RESEARCH PROFESSOR [facility] BUN 18 7 - 26 mg/dL 07/13/2019 12:35 PM SURVEY RESEARCH PROFESSOR [facility] Creatinine 0.76 0.55 - 1.02 mg/dL 07/13/2019 12:35 PM SURVEY RESEARCH PROFESSOR [facility] GFR, Estimated >60 >60 mL/min/1.7 3m2 07/13/2019 12:35 PM SURVEY RESEARCH PROFESSOR [facility] GFR, Est If >60 >60 mL/min/1.7 3m2 07/13/2019 12:35 PM SURVEY RESEARCH PROFESSOR [facility] Glucose 105(H) 70 - 100 mg/dL 07/13/2019 12:35 PM SURVEY RESEARCH PROFESSOR [facility] Comment:The given reference range is for the fasting state. Non-fasting reference range for glucose is 70 - 180 mg/dL. Hours Fasting Unknown 07/13/2019 12:35 PM SURVEY RESEARCH PROFESSOR [facility] Blood Venipuncture / Unknown 07/13/2019 7:00 AM SURVEY RESEARCH PROFESSOR 07/13/2019 10:40 AM SURVEY RESEARCH PROFESSOR Lul Hunter MD LAB_1 [facility] [address] * (ABNORMAL) Complete Blood Count-No Diff (07/13/2019 7:00 AM SURVEY RESEARCH PROFESSOR) WBC 4.7 3.5 - 10.5 x10(9)/L 07/13/2019 11:17 AM SURVEY RESEARCH PROFESSOR [facility] RBC 3.19(L) 3.90 - 5.03 x10(12)/L 07/13/2019 11:17 AM SURVEY RESEARCH PROFESSOR [facility] Hemoglobin 10.1(L) 12.0 - 15.5 g/dL 07/13/2019 11:17 AM SURVEY RESEARCH PROFESSOR [facility] HCT 31.2(L) 34.9 - 44.5 % 07/13/2019 11:17 AM SURVEY RESEARCH PROFESSOR [facility] MCV 97.8 80.0 - 100.0 fL 07/13/2019 11:17 AM SURVEY RESEARCH PROFESSOR [facility] MCH 31.7 27.6 - 33.3 pg 07/13/2019 11:17 AM SURVEY RESEARCH PROFESSOR [facility] MCHC 32.4 31.5 - 35.2 g/dL 07/13/2019 11:17 AM SURVEY RESEARCH PROFESSOR [facility] RDW 11.7(L) 11.9 - 15.5 % 07/13/2019 11:17 AM SURVEY RESEARCH PROFESSOR [facility] Platelets 221 150 - 450 x10(9)/L 07/13/2019 11:17 AM SURVEY RESEARCH PROFESSOR [facility] Automated NRBC 0 <=0 /100 WBC 07/13/2019 11:17 AM SURVEY RESEARCH PROFESSOR [facility] Blood Venipuncture / Unknown 07/13/2019 7:00 AM SURVEY RESEARCH PROFESSOR 07/13/2019 10:44 AM SURVEY RESEARCH PROFESSOR Lul Hunter MD LAB_1 Performing Organization Address City/State/[facility] Co de Phone Number [facility] [address] [place] [address], [facility] documented in this encounter Visit Diagnoses Diagnosis Encounter for surgical aftercare following surgery on the nervous system documented in this encounter Care Teams Shower Screen Installer Relationship Specialty Start Date End [place] [address] PCP - General 02/28/21 documented as of this encounter
--- OUTSIDE RECORDS SUMMARY | 2023-11-04 15:58 | XMS_ITS | Encounter Summary ---
Author Organization [facility] Address [address], [place] [address] Care Team Providers Care Library Circulation Department Chief Name Role Phone Needs Pcp, Assignment Primary Care Provider [phone] Reason for Visit * Auth/Cert Specialty Diagnoses / Procedures Referred By Contac t Referred To Contact Diagnoses Diarrhea of presumed infectious origin Fibromyalgia Diarrhea of presumed infectious origin Fibromyalgia Diarrhea of presumed infectious origin Fibromyalgia Referral ID Status Reason Start Date Expiration Date Visits Re quested Visits Authorized [id number] 1 1 Encounter Details Date Type Department Care Team (Latest Contact Info) Description 07/15/2019 Lab Requisition [facility] [address] [facility] [place] [address] Lul Hunter MD [address] [place], [place] [id number] Enterocolitis due to Clostridium difficile, not specified [...] C.DIFFICILE TOXIN,MOLECULAR DETECTION Routine 07/15/2019 10:00 PM [facility] Enterocolitis due to Clostridium difficile, not specified as recurrent documented in this encounter Results * (ABNORMAL) C.Difficile Toxin,Molecular Detection, (07/15/2019 10:00 PM SP[facility] TR[facility]) C.difficile by PCR Detected( A) Not Detected 07/15/2019 11:30 PM [facility] Stool Non-blood Collection / Unknown 07/15/2019 10:00 PM [facility] 07/15/2019 10:24 PM [facility] Narrative [facility] - 07/15/2019 11:30 PM [facility] Methodology: Qualitative real-time PCR assay to detect the Clostridium difficile toxin B gene. Lul Hunter MD LAB_1 [facility] [address] [place], [place] [id number] [place] [address] documented in this encounter Visit Diagnoses Diagnosis Enterocolitis due to Clostridium difficile, not specified as recurrent documented in this encounter Care Teams Library Circulation Department Chief Relationship Specialty Start Date End Date Needs Pcp, [place] [address] PCP - General 02/28/21 documented as of this encounter
--- OUTSIDE RECORDS SUMMARY | 2023-11-04 15:58 | XMS_ITS | Encounter Summary ---
Author Organization [email or web address] Address [address] [place] [id number] Care Team Providers Care Motion Picture Printer Name Role Phone Needs Pcp, Assignment Primary Care Provider [phone] Reason for Visit * Reason Comments CONSULT Encounter Details Date Type Department Care Team (Late st Contact Info) Description 10/01/2023 12:45 PM CDT Office Visit [facility] [address] [place] [address] Leif Stewart PA-C [address] [place], [place] [address] [address] Age-related osteoporosis without current pathological fracture (HRC) (Primary Dx) Social History Tobacco Use Types Packs/Day Years Used Date Smoking Tobacco: Former Smokeless Tobacco: Never Alcohol Use Standard Drinks/Week Comments No 0 (1 standard drink = 0.6 oz pur e alcohol) Sex and Gender Information Value Date Recorded Sex Assigned at Not on file Gender Identity Not on file Sexual Orientation Not on file documented as of this encounter Patient Instructions * Patient Instructions* Leif Stewart PA-C - 10/01/2023 12:45 PM CDT Bisphosphonate Treatment Protocol What are Bisphosphonates and how do they work? Bisphosphonates are a common group of medications used to treat osteoporosis. They come in many forms, including a once-weekly pill (Fosamax, Boniva, Actonel), once-monthly pill (Boniva), or a once-yearly IV infusion (Reclast). To understand how bisphosphonates work, remember that bone is a living tissue that undergoes a continual process of breakdown and repair. As we age, our bones are broken down at a faster rate than they can be rebuilt. This causes bone to weaken. Bisphosphonates slow the action of your bone breakdown cells (called osteoclasts). This allows yourbone building cells (called osteoblasts) to build stronger bones over time. How Effective are Bisphosphonates at Building Bone Density and Preventing Broken Bones? Bone Density Average 3-year bone density improvement while taking oral and IV bisphosphonates is between +6 to +8% at the spine and +4 to +6% at the hip. Fracture Prevention Oral bisphosphonates (Fosamax) lower your risk of spine fractures by approximately 50% and hip fractures by 30-40%. IV bisphosphonates (Reclast) lower your risk of spine fractures by 70% and hip fractures by 41%. Possible Side Effects Associated with Bisphosphonates Oral Bisphosphonates (Fosamax, Actonel, Boniva) The overall number of reported side effects in those taking oral bisphosphonates was comparable to those taking placebo (calcium and vitamin D only) in clinical trials. Possible side effects include GI upset, muscle or body aches, and low calcium levels (hypocalcemia). Atypical femur fractures (AFF) have been reported in those taking bisphosphonates. The risk is exceptionally rare but will increase with longer use of the medication. Risk factors which predispose toAFF include limb deformity (bowed legs), rheumatoid arthritis, taking oral steroids, and ethnicity. Your risk of an AFF while on treatment is: Less than 2 years of medication: 1-2 per 100,000 More than 8 years of medication: 113 per 100,000 Osteonecrosis of the jaw (ONJ) has also been reported in those taking bisphosphonates. Risk factorsinclude a history of radiation therapy to the neck/jaw region and dental extractions/jaw surgery while on treatment. The risk of ONJ is estimated to be between 1 in 10,000 to 1 in 100,000 while taking oral bisphosphonates. IV Bisphosphonates (Reclast) Reclast has been linked to body aches and flu-like symptoms for 1-2 days following the first infusion. I recommend taking 500mg - 1000mg of acetaminophen (Tylenol) three times per day on the day before your infusion, the day of your infusion, and the day after your infusion. This will reduce your risk of this possible side effect. After your Initial Visit Insurance Prior Authorization Most insurance companies do not require prior authorization for bisphosphonates which come in pill form, including Fosamax, Boniva, and Actonel. Your insurance company may require prior authorization for the once-yearly IV infusion called Reclast. An order for Reclast will be sent to a local infusion center and the prior authorization processwill be completed by infusion center staff. You will be contacted by infusion center staff to schedule your infusion once the medication is approved. I recommend that you contact your insurance to verify your [id number] expense for all medications, as it may vary between insurance providers. Bone Density I recommend that you have an up-to-date bone density (DXA) scan prior to starting a bisphosphonate.This will serve as your baseline bone density and it will be used for comparison in the future to determine how effective the medication is working. Nutrition I recommend that you consume a well-balanced diet that is rich in whole foods. You should limit processed foods, caffeine, and carbonated beverages. Calcium: 1200mg daily through food and supplements. Vitamin D: 8301-7619 IU daily Exercise Aerobic Exercise: Work your way up to 2-3 hours of moderate intensity aerobic exercise each week. Balance Exercise: Incorporate 10-15 minutes of balance exercises several days per week. Consider standing on one foot while brushing your teeth or washing dishes. You can close your eyes to make the exercise more challenging. Yoga and Randy Chi are also great for balance. Weightbearing Exercise: Progressive resistance strength training is the most effective type of exercise to preserve bone strength. I recommend a free program sponsored by [facility] called Too Fit to Fracture. You can access their recommendations in written and video format online. Infusion Day Diet, Supplements, and Medications You do not need to adjust your daily routine on the day of your infusion. Feel free to eat a regular diet and take your usual medications and nutritional supplements. I recommend taking 500mg - 1000mg of acetaminophen (Tylenol) three times per day on the day before your infusion, the day of your infusion, and the day after your infusion. This will reduce your riskof side effects associated with the infusion. Clothing Since Reclast is administered via an IV in your arm, be sure to wear loose fitting clothing that allows for easy access. Activity Following the Injection You will not have any activity restrictions following your infusion. You may experience soreness atthe infusion site for the 1-2 days following the infusion. Consider placing an ice pack on the infusion site or taking [id number] pain relievers such as acetaminophen as detailed above. Long-Term Care While Taking Bisphosphonates Office Visits 3 Months: You should schedule your first follow up office visit 3 months after starting a new bisphosphonate medication. At this visit, we will update your medical history, discuss your tolerance of the medication, and order updated blood tests. Yearly: You should follow up once yearly while taking a bisphosphonate. At these visits, we will review your medical history, discuss any recent injuries or falls, discuss your tolerance of the medication, and place an order for updated labs and/or bone density scans. Lab Tests 5-7 days: If you have stage 4 or 5 kidney disease, I recommend rechecking certain labs 5-7 days after you start the medication. 3 months: I recommend that everyone taking a bisphosphonate gets updated blood tests 3 months afterstarting a bisphosphonate. Typical lab tests will include a basic metabolic panel (BMP) and vitaminD. Other lab tests may be needed depending on your medical history. Yearly: I recommend that everyone taking a bisphosphonate gets updated blood tests once-yearly to monitor your tolerance of the medication. Typical lab tests will include a basic metabolic panel (BMP) and vitamin D. Other lab tests may be needed depending on your medical history. Bone Density Scans 1 year: I recommend that you get an updated bone density scan 1 year after starting a new medication. A successful outcome for this scan would be stable or improved bone density numbers. If there is a significant decline in your bone density, we may consider different treatment options. Every 1-2 years: After your initial follow up bone density scan, you will have a bone density scan every 1-2 years while on long-term treatment with a bisphosphonate to monitor your progress. Discontinuation of Bisphosphonates Research indicates that bisphosphonates are safe and effective when taken for a defined period of time. I recommend taking oral bisphosphonates (Fosamax) for 3- 5 years and IV bisphosphonates (Reclast) for 3 years. Taking the medication for longer periods is unlikely to add any additional benefit and may increase your risk of developing side effects. You may be able to stop taking the medication sooner if you significantly lower your risk of suffering a broken bone. Common treatment goals include no fractures over a 3-year period while taking themedication and a bone density T- score greater than -2.0 at all skeletal sites. It is safe to stop taking your medication abruptly. The medication will continue to protect your bones even after it is discontinued, and your bone density should remain stable for several years. It is important to continue to follow up once yearly after you discontinue the medication for re-evaluation. If you have a significant decline in bone density or have a broken bone, treatment may need to be restarted. documented in this encounter Progress Notes * Leif Stewart PA-C - 10/01/2023 12:45 PM CDT Images from the original note were not included. [facility]- Follow-Up Note Leif Stewart PA-C History of Present Illness Juliette Brown is a 63 y.o. old female who returns for re-evaluation of their bone health. - Last evaluated on 06/14/19 Treatment History Past Treatment: -- Boniva x 3 months -- Abaloparatide: briefly in 2020 -- Prolia x 2 years ([id number]) managed through [facility] Current Treatment: -- Prolia Treatment Duration: 2021-current Tolerance to Medication: No reported side effects Fracture History: hip (ryley-prosthetic), supracondylar femur Current Level of Activity and Fall Risk Current Level of Physical Activity/Weight Bearing Exercise: Not active (walking less than a mile a day). Falls Since Last Visit: None Use of Ambulatory Aid: No Assistive Device Nutrition Calcium Intake: At least 1200 mg daily Vitamin D Intake: At least 800IU daily Relevant Medical History: Juvenile RA Thyroid disease Relevant Medications: SSRI Prednisone-- 5 years 10mg daily Additional Osteoporosis Risk Factors: Social History Tobacco Use Smoking status: Former Smokeless tobacco: Never Substance Use Topics Alcohol use: No Medical History: Patient Active Problem List Diagnosis Major depressive disorder, single episode (HRC) Myalgia Chronic polyarticular juvenile rheumatoid arthritis (HRC) Multiple pulmonary nodules Hearing loss Anxiety (HRC) 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 Chronic fatigue syndrome Controlled substance agreement signed Degeneration of lumbar or lumbosacral intervertebral disc (HRC) Depression Diverticulitis of colon Fibromyalgia Drug dependence, in remission (HRC) Hyperlipidemia (HRC) Leukopenia (HRC) Lichen sclerosus et atrophicus of the vulva Migraine without intractable migraine Temporomandibular joint disorder Osteopenia Plantar fascial fibromatosis Sarcoidosis, lung (HRC) Sensorineural hearing loss, bilateral Hypothyroidism (HRC) Vitamin D deficiency (HRC) Recurrent major depressive disorder (HRC) S/P bone graft Clostridium difficile colitis Medications: Outpatient Medications Prior to Visit Medication Sig Dispense Refill Abaloparatide (TYMLOS) 3120 MCG/1.56ML SOPN Inject 80 mcg subcutaneously daily. This medication is on HOLD. 3 Pen 3 acetaminophen (TYLENOL) 325 MG tablet Take 2 Tablets by mouth every 6 hours as needed for Pain. Maximum acetaminophen dose is 4000 mg in 24 hours ALBUterol 1.25 mg/3 mL (ACCUNEB) 1.25 MG/3ML nebulizer solution Inhale 1.25 mg every 6 hours as needed for Wheezing. Indications: lung health ALBUterol sulfate HFA 108 (90 Base) MCG/ACT inhaler Inhale 1-2 Puffs every 4 hours as needed for Wheezing. aspirin 325 MG tablet Take 325 mg by mouth daily. Indications: clot prevention bacitracin-polymyxin b (POLYSPORIN) [id number] UNIT/GM ointment Apply topically two times a day. To nares Indications: dry nose betamethasone dipropionate (DIPROLENE AF) 0.05 % AUGMENTED ointment Apply to affected area q am 50 g 2 busPIRone (BUSPAR) 10 MG tablet Take 20 mg by mouth two times a day. Indications: Anxiety Disorder cholecalciferol (VITAMIN D3) 25 MCG (1000 UT) tablet Take 1,000 Units by mouth daily. Indications: supplement DULoxetine (CYMBALTA) 60 MG capsule Take 60 mg by mouth two times a day. Indications: Generalized Anxiety Disorder ferrous sulfate 325 (65 Fe) MG tablet Take 325 mg by mouth daily with breakfast. Indications: Anemia From Inadequate Iron in the Body HYDROmorphone (DILAUDID) 2 MG tablet Take 1 Tablet by mouth every 4 hours as needed for Pain. 20 Tablet 0 lactobacillus (FLORANEX) PACK packet Take 1 Packet by mouth three times a day with meals. Or similar probiotic Indications: gut health lidocaine (ASPERCREAM) 4 % patch Apply 2 Patches to skin daily. Leave on for up to 12 hours in a 24hour period, then remove. LORazepam (ATIVAN) 0.5 MG tablet Take 1 Tablet by mouth every 6 hours as needed for Anxiety. Indications: Feeling Anxious 10 Tablet 0 melatonin 5 MG tablet Take 10 mg by mouth daily at bedtime. Indications: Trouble Sleeping Multiple Minerals-Vitamins (LOJLVFL-WEHSBXCTZ-DSIE-D3) TABS Take 1 Tablet by mouth daily. Indications: supplement multivitamin with minerals tablet Take 1 Tablet by mouth daily. Indications: supplement omega-3 fatty acids (FISH OIL) 1000 MG capsule Take 1 Capsule by mouth daily. Indications: supplement 90 capsule 0 polyethylene glycol (MIRALAX) packet Take 1 Packet by mouth daily as needed for Constipation. psyllium powder (METAMUCIL) 58.12 % packet Take 1 Packet by mouth daily. Indications: regularity senna (SENOKOT) 8.6 MG tablet Take 1 Tablet by mouth two times daily as needed for Constipation. Indications: Constipation 30 Tablet 0 sodium chloride (OCEAN) 0.65 % nasal solution Place 1 [place] into both nostrils every 2 hours as needed for Congestion. testosterone 0.2 % in aquaphor Apply to affected area qhs 30 g 3 traZODone (DESYREL) 50 MG tablet Take 100 mg by mouth daily at bedtime. Indications: Trouble Sleeping tretinoin (RETIN-A) 0.025 % cream Apply topically daily at bedtime. Indications: skin damage TYMLOS 3120 MCG/1.56ML SOPN Inject 80mcg subcutaneously once daily 3 Pen 3 No facility-administered medications prior to visit. Review of Systems A complete review of systems was performed and is negative except as state above in the HPI. Physical Examination There were no vitals taken for this visit. GENERAL APPEARANCE: Alert and cooperative, appears the stated age. No acute distress. HEAD: Normocephalic. EYES: Vision intact to the written word. EARS: Hearing intact to the spoken word. CARDIAC: All 4 extremities appear warm and well perfused. LUNGS: No respiratory distress, no audible wheezing. NEUROLOGICAL: No focal nerve deficit. SKIN: Skin normal color, texture and turgor with no lesions. PSYCHIATRIC: Mood and affect are within normal limits. MUSCULOSKELETAL: -- No joint erythema. -- Ambulates with slow gait, uses no assistive device. -- Lower extremity deformity: none -- Spine alignment: Normal. Fall Risk Assessment Timed Up and Go: Not performed Imaging & Laboratory DXA Results (09/24/23) RESULT LUMBAR SPINE L1 - L4 BMD: 0.990 g/cm2 T-Score: - 1.6 Z-Score: - 0.3 Change from prior in 2021: Decrease 0.1%. RESULTS FEMUR Left femoral neck BMD: 0.860 g/cm2 T-Score: - 1.3 Z-Score: + 0.0 Change from prior in 2021: Increase 1.5%. Left hip BMD: 0.778 g/cm2 T-Score: - 1.8 Z-Score: - 0.9 Change from prior in 2021: Increase 1.6%. FRAX RISK CALCULATION (USED FOR OSTEOPENIA ONLY): 10-year probability of major osteoporotic fracture: 26.7%. 10-year probability of hip fracture: 3.2%. DXA Results- 11/2017 Lumbar T-score: -1.8 Total Hip T-score: -1.8 FRAX score: 21.4%/1.5% TBS: 1.313 (partially degraded) Pertinent Lab Results: Vitamin D, 25-OH, Total Date Value Ref Range Status 06/14/2019 91 (H) 30 - 80 ng/mL Final Intact PTH Date Value Ref Range Status 06/14/2019 48 10 - 100 pg/mL Final Calcium Date Value Ref Range Status 07/17/2019 8.5 8.4 - 10.4 mg/dL Final Hemoglobin Date Value Ref Range Status 07/15/2019 10.1 (L) 12.0 - 15.5 g/dL Final Creatinine Date Value Ref Range Status 07/18/2019 0.79 0.55 - 1.02 mg/dL Final GFR, Estimated Date Value Ref Range Status 07/18/2019 >60 >60 mL/min/1.73m2 Final GFR, Est If Date Value Ref Range Status 07/18/2019 >60 >60 mL/min/1.73m2 Final TSH, Reflex Date Value Ref Range Status 06/14/2019 0.65 0.30 - 4.50 uIU/mL Final Alkaline Phosphatase Date Value Ref Range Status 06/14/2019 66 40 - 150 U/L Final Procedure Report No procedure performed. Assessment & Plan 1) Clinical osteoporosis We reviewed the results of her most recent bone density scan. Bone density is stable compared to 2021. She has been on Prolia since that time. She has no longer taking oral steroids. No recent fractures. We discussed her treatment plan moving forward. We could either continue with Prolia or consider transitioning to Reclast for consolidation of bone mass. If she were to consider Reclast, I would recommend yearly bone density scans and monitoring bone turnover markers throughout that timeframe to ensure stability of bone mass. She will confirm when her last Prolia injection was and we will plan future treatments once that information is available. General recommendations for healthy bones and fracture prevention: Regular physical activity-- including aerobic, strengthening, and balance exercises. Calcium (1200mg daily) and Vitamin D (2000 IU daily) through diet and/or supplements. Avoid tobacco Moderation of alcohol consumption (not to exceed 2 alcoholic beverages daily) Orders entered at this office visit Lab(s): none- CTX when we transition to Reclast Imaging: reviewed DXA Medication(s): Prolia vs. Reclast Follow-Up: 3 months Leif Stewart PA-C 09/28/2023, 4:07 PM (This note was created using speech-recognition software and may contain unintended word substitutions) documented in this encounter Plan of Treatment Not on file documented as of this encounter Visit Diagnoses Diagnosis Age-related osteoporosis without current pathological fracture (HRC)- Primary Senile osteoporosis documented in this encounter Care Teams Motion Picture Printer Relationship Specialty Start Date End Date Needs Pcp, [place] [address] PCP - General 02/28/21 documented as of this encounter
[2023-11-04 22:27] LABS: Chlamydia DNA Amplified* NOT DETECTED (No Detected); GC DNA Amplified* NOT DETECTED (No Detected)
== END 2023-11-04 15:52 | disposition home or self-care (01) ==
PROVIDERS: PCP Family Medicine; Visit Provider Obstetrics & Gynecology
DX: A60.00 Herpesviral infection of urogenital system, unspecified (principal); Z11.3 Encounter for screening for infections with a predominantly sexual mode of transmission; E03.9 Hypothyroidism, unspecified
CPT/HCPCS: 84443; 86592; 86703; 86706; 86803; 87340; 87491; 87591

== ENCOUNTER 2023-11-11 18:57 | Emergency (ER) | payer MEDICARE, BC, SELFPAY ==
[2023-11-11 19:03] VITALS: BP 112/72; PULSE 79; RESP 20; TEMP 36.4; O2SAT 97; BMI 23.9
--- NOTE | 2023-11-11 19:19 | ED_ITS ---
HPI - General Adult General Chief complaint: Weakness Stated complaint: Diarrhea x3 days, black stools, feels unwell Time Seen by Provider: 11/11/23 19:00 History of Present Illness HPI narrative: This 63-year-old female comes in reporting 3 days of watery diarrhea. She has not had any fevers, or vomiting. She does report a headache. She states that she feels some generalized weakness and fatigue but not any lightheadedness. She states that the diarrhea was brown colored until today when it turned more black colored. She states that she did take Pepto-Bismol last night. She reports some brief episodes of crampy abdominal pain but nothing significant. She has not been on any recent antibiotic treatment and has not had any recent travel or exposure to infection. Related Data Home Medications ?Medication ?Instructions ?Recorded ?Confirmed clobetasol 0.05 % topical ointment 1 applic topical .qod 11/21/21 11/10/23 liothyronine 5 mcg tablet 5 mcg PO .B.i.d. 11/21/21 11/10/23 lorazepam 0.5 mg tablet 0.5 mg PO Q12H PRN 12/08/21 11/10/23 melatonin 3 mg capsule 9 mg PO HS 12/08/21 11/10/23 trazodone 50 mg tablet 100 mg PO QHS PRN 01/17/23 11/10/23 buspirone 15 mg tablet 15 mg PO BID 03/25/23 11/10/23 cyclosporine 0.05 % eye drops in a drp ophthalmic (eye) 03/25/23 11/10/23 dropperette escitalopram oxalate 10 mg tablet 15 mg PO DAILY 03/25/23 11/10/23 (Lexapro) lidocaine HCl 2 % mucosal solution PO 03/25/23 11/10/23 (Lidocaine Viscous) tretinoin 0.025 % topical cream 1 applic topical QPM 03/25/23 11/10/23 valacyclovir 1 gram tablet 1,000 mg PO 3XD 03/25/23 11/10/23 varenicline 0.03 mg/spray nasal intranasal 03/25/23 11/10/23 spray (Tyrvaya) cyclobenzaprine 5 mg tablet 5 mg PO QPM PRN 09/17/23 11/10/23 vilazodone 10 mg tablet 10 mg PO DAILY 11/04/23 11/10/23 vilazodone 20 mg tablet 20 mg PO DAILY 11/10/23 11/10/23 Previous Rx's ?Medication ?Instructions ?Recorded Lactobacillus acidophilus 0.5 mg 1 tab PO TIDWM 90 days #90 tabs 12/10/21 (100 million cell) tablet hydromorphone 2 mg tablet 2 mg PO Q4H PRN 5 days #30 tabs 12/10/21 ondansetron 4 mg disintegrating 4 mg PO Q6H PRN nausea and 12/10/21 tablet vomiting #10 tabs albuterol sulfate 90 mcg/actuation 2 puff inhalation Q4-6H PRN 03/05/23 aerosol inhaler shortness of breath or wheezing #8.5 grams triamcinolone acetonide 0.025 % 1 applic topical BID #15 grams 03/25/23 topical cream estradiol 10 mcg vaginal tablet 10 mcg vaginal 2XW #24 tabs 11/04/23 (Yuvafem) estradiol 1 mg tablet 0.5 mg (1/2 x 1 mg) PO QDAY #45 11/05/23 tabs diphenoxylate-atropine 2.5 1 tab PO DAILY #10 tabs 11/11/23 mg-0.025 mg tablet (Lomotil) ketorolac 10 mg tablet 10 mg PO Q8H 5 days #15 tabs 11/11/23 ondansetron HCl 4 mg tablet 4 mg PO Q6H #10 tabs 11/11/23 Allergies Allergy/AdvReac Type Severity Reaction Status Date / Time auranofin Allergy Verified 11/10/23 14:49 cat dander Allergy Verified 11/10/23 14:49 Gadolinium-Containing Allergy Verified 11/10/23 14:49 Contrast Medi gluten Allergy Verified 11/10/23 14:49 gold keratinate Allergy Verified 11/10/23 14:49 gold sodium thiomalate Allergy Verified 11/10/23 14:49 lactose Allergy Verified 11/10/23 14:49 Opioids - Morphine Analogues Allergy Verified 11/10/23 14:49 goldshots Allergy Severe Anaphylaxis Uncoded 11/10/23 14:49 Review of Systems Status of ROS: Reports: 10 or more systems reviewed and unremarkable except as noted in History and below Narrative: Constitutional: No fevers, no weight gain or loss. Eyes: No discharge. No vision changes. HENT: No congestion, no sore throat, no ear pain. Cardiovascular: No chest pain, no palpitations. Respiratory: No shortness of breath, no wheezes, no cough. Gastrointestinal: Diarrhea with nausea but no vomiting. Occasions of abdominal discomfort. Genitourinary: No dysuria, no hematuria. Musculoskeletal: Normal range of motion. Skin: No rashes, no pruritis. Neurological: No dizziness, weakness, sensory change, speech change. Endo/Heme/Allergies: No bruising or bleeding. No polydipsia. Pysch: no suicidality, no anxiety, no insomnia. All other systems reviewed and are negative. [facility] Medical History Herpes zoster ?B02.9 - Zoster without complications (ICD-10) Diverticulitis ?K57.92 - Diverticulitis of intestine, part unspecified, without perforation or abscess without bleeding (ICD-10) Closed T12 fracture ?S22.089A - Unspecified fracture of T11-T12 vertebra, initial encounter for closed fracture (ICD-10) History of Clostridioides difficile colitis ?Z86.19 - Personal history of other infectious and parasitic diseases (ICD- 10) History of hypothyroidism ?Z86.39 - Personal history of other endocrine, nutritional and metabolic disease (ICD-10) History of diverticulitis of colon (05/09/11) ?Z87.19 - Personal history of other diseases of the digestive system (ICD-10) History of Clostridioides difficile infection ?Z86.19 - Personal history of other infectious and parasitic diseases (ICD- 10) Abscess of sigmoid colon due to diverticulitis ?K57.20 - Diverticulitis of large intestine with perforation and abscess without bleeding (ICD-10) Osteoporosis ?M81.0 - Age-related osteoporosis without current pathological fracture (ICD- 10) Sigmoid diverticulitis ?K57.32 - Diverticulitis of large intestine without perforation or abscess without bleeding (ICD-10) History of femur fracture ?Z87.81 - Personal history of (healed) traumatic fracture (ICD-10) Insomnia ?G47.00 - Insomnia, unspecified (ICD-10) Anxiety ?F41.9 - Anxiety disorder, unspecified (ICD-10) Sarcoidosis ?D86.9 - Sarcoidosis, unspecified (ICD-10) Hypothyroidism ?E03.9 - Hypothyroidism, unspecified (ICD-10) Sensorineural hearing loss (SNHL) of both ears ?H90.3 - Sensorineural hearing loss, bilateral (ICD-10) Depression ?F32.A - Depression, unspecified (ICD-10) Chronic fatigue syndrome ?R53.82 - Chronic fatigue, unspecified (ICD-10) 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 - Unspecified juvenile rheumatoid arthritis of unspecified site (ICD- 10) Migraines ?G43.909 - Migraine, unspecified, not intractable, without status migrainosus (ICD-10) Diverticulitis of intestine with abscess ?K57.80 - Diverticulitis of intestine, part unspecified, with perforation and abscess without bleeding (ICD-10) Surgical History History of total knee replacement ?Z96.659 - Presence of unspecified artificial knee joint (ICD-10) S/P hammer toe correction ?Z98.890 - Other specified postprocedural states (ICD-10) ?Z87.39 - Personal history of other diseases of the musculoskeletal system and connective tissue (ICD-10) History of repair of rotator cuff ?Z98.890 - Other specified postprocedural states (ICD-10) History of tonsillectomy ?Z90.89 - Acquired absence of other organs (ICD-10) History of total hip arthroplasty ?Z96.649 - Presence of unspecified artificial hip joint (ICD-10) History of bilateral knee arthroplasty ?Z96.653 - Presence of artificial knee joint, bilateral (ICD-10) Family History Father High blood pressure Hyperlipidemia Mother High blood pressure Hyperlipidemia Sister Seizure disorder Social History Narrative: She lives alone in [place]. 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 She does not smoke. She drinks alcohol about once a month. She uses no recreational drugs. She does have a history of chemical dependency. Healthcare power of staff attorney is her sister Denise. Code status is full. Are you following a special diet: Yes (no gluten, lactose intolerent) Highest level of school completed/degree received: Master's degree Smoking Status: Never smoker Do you use any of these nicotine containing products: None Second hand tobacco smoke exposure: No How often do you have a drink containing alcohol: never How often do you have six or more drinks on one occasion: Never AUDIT-C Alcohol total score: 0 Non-prescribed substance use: denies use Caffeine: Yes (coffee 3x weekly) Are you now , , , , never or living with a partner: Social isolation score (0-1 are the most socially isolated patients): 0 Are you currently sexually active: No service: No Exam Narrative: Exam Narrative: Constitutional: Well-developed, well-nourished, no acute distress. HEENT: Normocephalic, atraumatic. Neck: Normal range of motion. Nontender. Supple. Heart: Regular. No murmurs. Normal rate. Intact distal pulses. Lungs: Clear to auscultation. No chest discomfort. No wheezes, rhonchi, or rales. Abdomen: Normal bowel sounds. Mild tenderness in the lower abdomen. No rebound tenderness. Genitalia: Deferred. Back: No midline tenderness. Normal range of motion. Extremities: Normal range of motion. No injury. Skin: Intact. No rash. Warm. No erythema or pallor. Neurologic: No altered sensation. No weakness. Alert and oriented. Psychiatric: No suicidality. No anxiety or depression. No insomnia. Nursing notes and vitals signs are reviewed. Const: Vital Signs, click to edit/add: Vital Signs - 24 hr 11/11/23 19:03 Temperature 97.6 F Pulse Rate [Pulse Oximeter] 79 Respiratory Rate 20 Blood Pressure [Ri ght Upper Arm] 112/72 Pulse Oximetry 97 Oxygen Delivery Me thod Room Air Course Vital Signs Vital signs: Initial Vital Signs Temperature 97.6 F 11/11/23 19:03 Temperature Source Temporal Artery Scan 11/11/23 19:03 Pulse Rate 79 11/11/23 19:03 Pulse Rhythm Regular 11/11/23 19:03 Respiratory Rate 20 11/11/23 19:03 Blood Pressure 112/72 11/11/23 19:03 Blood Pressure Mean 85 11/11/23 19:03 Blood Pressure Position Sitting 11/11/23 19:03 Pulse Oximetry 97 11/11/23 19:03 Oxygen Delivery Method Room Air 11/11/23 19:03 Vital Signs Temperature 97.6 F 11/11/23 19:03 Pulse Rate 79 11/11/23 19:03 Respiratory Rate 20 11/11/23 19:03 Blood Pressure 112/72 11/11/23 19:03 Pulse Oximetry 97 11/11/23 19:03 Oxygen Delivery Method Room Air 11/11/23 19:03 Temperature 97.6 F 11/11/23 19:03 Pulse Rate 79 11/11/23 19:03 Respiratory Rate 20 11/11/23 19:03 Blood Pressure 112/72 11/11/23 19:03 Pulse Oximetry 97 11/11/23 19:03 Oxygen Delivery Method Room Air 11/11/23 19:03 Medications Administered Medications: Discontinued Medications Generic Name Dose Route Start Last Admin Trade Name Freq PRN Reason Stop Dose Admin Sodium Chloride 1,000 mls @ 1,000 mls/hr 11/11/23 19:30 11/11/23 19:34 0.9 % Sodium Chloride 1000 Ml IV 11/11/23 20:29 1,000 mls/hr .Q1H SHANNA Administration Ketorolac Tromethamine 15 mg 11/11/23 19:26 11/11/23 19:34 Ketorolac 15 Mg/Ml Inj IVP 11/11/23 19:27 15 mg ONCE ONE Administration Ondansetron HCl 4 mg 11/11/23 19:22 11/11/23 19:34 Ondansetron 2 Mg/Ml Inj IVP 11/11/23 19:23 4 mg ONCE ONE Administration Medical Decision Making [facility] Narrative Medical decision making narrative: This patient comes in room with diarrhea for 3 days and reports feeling of being weak. An IV was established where she received a L of normal saline, Zofran 4 mg, and Toradol 15 mg. She is feeling better with these treatments. Labs returned with normal results. This was reassuring to the patient. She is okay to be discharged home. She did receive a dose of Imodium here and I did provide prescriptions for Lomotil, Zofran, and Toradol. Lab Data Labs: Lab Results 11/11/23 Range/Units 19:31 WBC 4.62 (4.50-11.00) K/uL RBC 4.17 (4.00-5.20) m/uL Hgb 12.9 (12.0-16.0) gm/dL Hct 38.4 (33.0-51.0) % MCV 92 (80-100) fL MCH 31 (26-34) pg MCHC 34 (32-36) gm/dL RDW Coeff of Chuck 11.2 L (11.5-15.5) % Plt Count 210 (140-440) K/uL Neut % (Auto) 62.6 (42.0-72.0) % Lymph % (Auto) 26.2 (20-44) % [place] % (Auto) 7.1 (0.0-11.0) % Eos % (Auto) 3.5 (0.0-7.0) % Baso % (Auto) 0.6 (0.0-3.0) % Neut # (Auto) 2.89 (1.7-7.0) K/uL Lymph # (Auto) 1.21 (0.90-2.90) K/uL [place] # (Auto) 0.30 (0.00-0.90) K/UL Eos # (Auto) 0.16 (0.00-0.50) K/uL Baso # (Auto) 0.03 (0.00-0.30) K/uL Abs Immat Gran (auto) 0.00 (0.00-0.30) K/uL Imm/Tot Granulo (auto) 0.0 % Sodium 135 (135-149) mmol/L Potassium 3.9 (3.6-5.1) mmol/L Chloride 106 (96-114) mmol/L Carbon Dioxide 20 (20-32) mmol/L Anion Gap 9 (7-15) mEq/L BUN 20 (7-30) mg/dL Creatinine 0.8 (0.5-1.5) mg/dL Estimated Creat Clear 59.40 Estimated GFR 82 ml/min Glucose 106 (60-115) mg/dL Calcium 8.8 (8.4-10.6) mg/dL C-Reactive Protein 0.5 (0.5-1.0) mg/dL Discharge Plan Discharge Clinical Impression: Gastroenteritis Patient Disposition: Home, Self-Care Condition: Stable Additional Instructions: And take fluids and increase diet as tolerated. Use medicines as needed and directed. Follow up with MD return if worsening. Prescriptions: New diphenoxylate-atropine [Lomotil] 2.5-0.025 mg tablet 1 tab PO DAILY Qty: 10 0RF ketorolac 10 mg tablet 10 mg PO Q8H 5 Days Qty: 15 0RF ondansetron HCl 4 mg tablet 4 mg PO Q6H Qty: 10 0RF No Action trazodone 50 mg tablet 100 mg PO QHS PRN Tyrvaya 0.03 mg/spray spray, metered, non-aerosol intranasal Patient Comments: [NO ORIGINAL SIG] cyclosporine 0.05 % dropperette ophthalmic (eye) lidocaine HCl [Lidocaine Viscous] 2 % solution PO tretinoin 0.025 % cream 1 applic topical QPM buspirone 15 mg tablet 15 mg PO BID valacyclovir 1 gram tablet 1,000 mg PO 3XD triamcinolone acetonide 0.025 % cream 1 applic topical BID Qty: 15 0RF Rx Instructions: Apply small amount to affected area cyclobenzaprine 5 mg tablet 5 mg PO QPM PRN vilazodone 20 mg tablet 20 mg PO DAILY albuterol sulfate 90 mcg/actuation HFA aerosol inhaler 2 puff inhalation Q4-6H PRN (Reason: shortness of breath or wheezing) Qty: 8.5 0RF vilazodone 10 mg tablet 10 mg PO DAILY estradiol [Yuvafem] 10 mcg tablet 10 mcg vaginal 2XW Qty: 24 3RF liothyronine 5 mcg tablet 5 mcg PO .B.i.d. clobetasol 0.05 % ointment 1 applic TOPICAL .qod lorazepam 0.5 mg tablet 0.5 mg PO Q12H PRN melatonin 3 mg capsule 9 mg PO HS hydromorphone 2 mg Tablet 2 mg PO Q4H PRN5 Days Qty: 30 0RF Lactobacillus acidophilus 0.5 mg (100 million cell) Tablet 1 tab PO TIDWM 90 Days Qty: 90 0RF ondansetron 4 mg tablet,disintegrating 4 mg PO Q6H PRN (Reason: nausea and vomiting) Qty: 10 0RF escitalopram oxalate [Lexapro] 10 mg tablet 15 mg PO DAILY estradiol 1 mg tablet 0.5 mg PO QDAY Qty: 45 3RF Rx Instructions: Take 1/2 tab (0.5 mg) daily. Follow Up/Referrals: Nivia Bruno MD [Primary Care Provider] - Stand Alone Forms: [facility] Info Instructions
--- OUTSIDE RECORDS SUMMARY | 2023-11-11 19:29 | XMS_ITS | Continuity of Care Document ---
Author Organization [facility] Address [address] [address] [place] [address] Care Team Providers Care Joy Loader Name Role Phone [place], [place] Unavailable Unav ailable Procedures Procedure Date Colono Pt Doc Pt W/o Advance Directives Directive Yes / No Effective Date File Name No Information Encounters Encounter Description Practice Location Reason(s) For Visit Diagnoses Date Provider Providers Copied on Encounter [facility], [address] [address], [place], [place], [id number], [facility] [place] No Information [facility]. [address] [address], [place], [place], [id number], . tel:[phone] Family History Family Member Type Diagnosis Age [...]
--- OUTSIDE RECORDS SUMMARY | 2023-11-11 19:29 | XMS_ITS | Continuity of Care Document ---
Author Organization [facility] Address [address] [place] [address] Phone Care Team Providers Care Paper Mill Supervisor Name Role Phone Sanchez Lay MD Unavailable Unavailable Advance Directives Directive Yes / No Effective Date File Name No Information Encounters Encounter Description Practice Location Reason(s) For Visit Diagnoses Date Provider Providers Copied on Encounter [facility], [address], [place], [address], [place] tel:[phone] [facility], No Information Rosanne Bradford. [facility] [address], [place], [address], [place]. tel:[phone] Family History Family Member Type Diagnosis Age [...]
--- OUTSIDE RECORDS SUMMARY | 2023-11-11 19:29 | XMS_ITS | Continuity of Care Document ---
Author Organization [facility] Address [address] [address] [place] [address] Phone Care Team Providers Care Shoe Salesman Name Role Phone Tavia Horne Unavailable Unavailable [...] Diagnoses Date Provider Providers Copied on Encounter [facility] [facility] [address] [address], [place], [id number], [place] tel:[phone] [facility] No Information Edstrchantal Squires. [address] [facility] [facility] [address], [place], [place], [id number], [place]. tel:[phone] [facility] [employer] CESAR [address] [address], [place], [id number], [place] tel:[phone] [facility] Diverticulosis of colon (without mention of hemorrhage)Dvr tclos of lg int w/o perforation or abscess w/o bleeding No Information Referring Provider: Referral Self, USE FOR SELF REFERRALS. [facility] [employer] JENN[address]ER GUERR[address] [address], [place], [id number], [place] tel:[phone] [facility] No Information 2 No Information Telephone E&M III 21-30 Min SUSU [facility], [address] [address], [place], [place], [id number], [place] tel:[phone] [facility] GI Symptoms or Concerns (chief complaint) Diverticulitis 2 Edstrom [facility] Squires. [address] [facility] [address], [place], [id number], [place]. tel:[phone] Referring Provider: Referral Self, USE FOR SELF REFERRALS. [facility], [address] [address], [place], [place], [address], [place] tel:[phone] [facility] No Information 2 Link MD Null. [address] [facility] [address], [place], [id number], [place]. tel:[phone] [facility], [address] [address], [place], [id number], [place] tel:[phone] [facility] Diverticulosis of colon (without mention of hemorrhage)Per pinky history of colonic polypsDvtrcli of lg int w/o perforation or abscess w/o bleedingDvrtcl os of lg int w/o perforation or abscess w/o bleedingPerson al history of colonic polyps Aug-0 9 No Information Referring Provider: Nivia Bruno MD, [address] [place] [address], [address]. tel:[phone] [facility], [address] [address], [place], [id number], [place] tel:[phone] [facility] History of colon polypsDivertic ular disease of large intestineDvtrc li of lg int w/o perforation or abscess w/o bleedingDvrtcl os of lg int w/o perforation or abscess w/o bleedingPerson al history of colonic polyps - 5 No Information Referring Provider: Heladio Martins MD, [address] [place] [address], [address]. tel:[phone] [facility] [employer] [facility], [address] [address], [place], [address], [place] tel:[phone] [facility] LUQ Pain 4 Tatiana Ray. [address] [place] [address], [id number], [place]. tel:[phone] [facility], [address] [address], [place], [id number], [place] tel:[phone] [facility] Hiatal HerniaPolyp-in chalo/rect/stom- unc BehLUQ PainGastric Polyp-benignGa stric Polyp-benignLU Q PainHiatal Hernia 4 Nelson Ferris. [address] [place] [address], [id number], [place]. tel:[phone] Referring Provider: Heladio Martins MD, [address] [place] [address], [address]. tel:[phone] [facility], [address] [address], [facility] [place], [id number], [place] tel:[phone] [facility] LUQ Pain 4 Tatiana Ray. [address] [place] [address], [id number], [place]. tel:[phone] Referring Provider: Heladio Martins MD, [address] [place] [address], [address]. tel:[phone] Offic/outpt E&m Estab Mod-hi 2 [facility], [address] [address], [facility] [place], [address], [place] tel:[phone] [facility] LUQ PainDiarrhea 4 Tatiana Ray. [address] [place] [address], [id number], [place]. tel:[phone] Referring Provider: Heladio Martins MD, [address] [place] [address], [address]. tel:[phone] [facility], [address] [address], [facility] [place], [id number], [place] tel:[phone] [facility] Diverticulosis Of ColonHx Of Digest Disease NecDiverticulo sis Of ColonHx Of Digest Disease Nec 3 No Information Referring Provider: Heladio Martins MD, [address] [place] [address], [place], [address]. tel:[phone] [facility], [address] [address], [place], [id number], [place] tel:[phone] [facility] Diverticulosis Of ColonDiverticu litis Of ColonDiverticu litis Of Colon 2 No Information Referring Provider: Heladio Martins MD, [address] [place] [address], [place], [address]. tel:[phone] [facility], [address] [address], [place], [id number], [place] tel:[phone] [facility] Colon Cancer ScreeningPerso nal History Colon PolypsDivertic ulosis Of Colon 8 No Information Referring Provider: Daniel Griffin, [address] [place] [address], [place], [address]. tel:[phone] [facility], [address] [address], [place], [address], [place] tel:[phone] [facility] Personal history colon polyps 6 No Information Offic Cons New/estab [facility], [address] [address], [place], [id number], [place] tel:[phone] [facility] Diverticulosis Of ColonPolyp-int [...] Registry Payers Payer name Insurance type Covered republican ID Authoriza tion(s) Medicare NGS [id number] Blue Cross Medicare Supplement [id number] Social History Type Description Quantity Date Captured [...] years ago, she was hospitalized at [facility] at which time there was evidence [...]
--- OUTSIDE RECORDS SUMMARY | 2023-11-11 19:30 | XMS_ITS | Encounter Summary ---
Author Organization [facility] Address [address] [place] [address] Care Team Providers Care Operations Systems Specialist Name Role Phone Heladio Martins MD Primary Care Provider Kelsi Glez MD Unavailable [phone] Nivia Bruno MD Primary Care Provider [phone] Encounter Details Date Type Department Care Team ([facility] Contact Info) Description 03/07/2021 [facility] Intake [address] [place] [id number] Generic, Behavioral Intake, Social History Tobacco Use [...] 03/06/2021 7:37 PM CDT To: Cheyanne Santana [facility], Quentin Hagan, # Subject: Schedule for PHP on Friday Scheduling Request Patient Name: Juliette Brown Location of programming: [facility] Start Date: 03/12 Group: [id number] 9am to 3pm Attending Provider (): Trent Number of visits to be scheduled: 50 Duration of Appointment in minutes: 360 Visit Type: Zoom - 2650 Additional notes: Patient is currently in PHP at [facility]. She has Medicare and BCBS. Please check ifinsurance will cover another PHP program. Patient was given [employer] phone number. * Telephone Encounter - Jen Serrano - 03/07/2021 7:50 AM CDT ----- Message from KETTY Rollins sent at 03/06/2021 7:37 PM CDT ----- Regarding: Schedule for PHP on Friday Scheduling Request Patient Name: Juliette Brown Location of programming: [facility] Start Date: 03/12 Group: [id number] 9am to 3pm Attending Provider (): Cristianoe Number of visits to be scheduled: 50 Duration of Appointment in minutes: 360 Visit Type: Zoom - 2657 Additional notes: Patient is currently in PHP at [facility]. She has Medicare and BCBS. Please check ifinsurance will cover another PHP program. Patient was given [employer] phone number. documented in this encounter Plan of Treatment Not on file documented as of this encounter Visit Diagnoses Not on filedocumented in this encounter Additional Health Concerns Assessment Noted Time PHQ-9 Depression Total Score: 21 021 12:28 PM CDT documented as of this encounter Care Teams Operations Systems Specialist Relationship Specialty Start Date End Date Heladio Martins MD PCP - General Internal Medicine 03/05/16 03/21/21 Nivia Bruno MD [address] [facility] [place] [address] PCP - General 03/22/21 Kelsi Handy MD [address] [place] [address] Assigned OBGYN Provider 04/23/20 3 documented as of this encounter
--- OUTSIDE RECORDS SUMMARY | 2023-11-11 19:30 | XMS_ITS | Encounter Summary ---
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 Location of programming: [facility] 55+ Start Date:06/13/21 Group ([facility] on #days of the week# at #start time to end time#): 55+ B1 M,W,F 1-4pm Provider (name of MD): Niall Number of visits to be scheduled: 1 Duration of Appointment in minutes: 180 mins Visit Type (Robert - 9462 / Zoom - 6587 / In-person or Treatment - 870) :2657-zoom Additional notes: TRUCK OPERATOR documented in this encounter Plan of Treatment Not on file documented as of this encounter Visit Diagnoses Not on filedocumented in this encounter Additional Health Concerns Assessment Noted Time PHQ-9 Depression Total Score: 7 06/14/19 22 10:59 AM LIVE TRUCK OPERATOR documented as of this encounter Care Teams Residence Life Director Relationship Specialty Start Date End Date Nivia Bruno MD [address] [place] [address] PCP - General 03/22/21 Kelsi Handy MD [address] [place] [address] Assigned OBGYN Provider 04/23/20 3 documented as of this encounter
--- OUTSIDE RECORDS SUMMARY | 2023-11-11 19:30 | XMS_ITS | Encounter Summary ---
Author Organization [facility] Address [address], [place] [address] Care Team Providers Care Hot Plate Plywood Press Feeder Name Role Phone Needs Pcp, Assignment Primary Care Provider [phone] Reason for Visit * Reason Comments QUESTIONS, GENERAL Encounter Details Date Type Department Care Team (Late st Contact Info) Description 09/03/2023 Telephone [facility] [address] [place] [address] Leif Stewart PA-C [address] [place] [address] QUESTIONS, GENERAL Social History Tobacco Use Types [...] care. No additional information was provided to global technical writer. Please advise. Have you been seen for this recently?: No If we are unable to reach you can we leave a detailed message on your voicemail? Yes If we are unable to reach you can we send you a message in [employer]? Yes [Guitar Repair Technician/Ct Technician: Relay to patient; We make every effort to get back to you sameday, however it may take 1-2 business days depending on the nature of the communication.] documented in this encounter Plan of Treatment Not on file documented as of this encounter Visit Diagnoses Not on filedocumented in this encounter Care Teams Hot Plate Plywood Press Feeder Relationship Specialty Start Date End Date Needs Pcp, [place] [address] PCP - General 02/28/21 documented as of this encounter
--- OUTSIDE RECORDS SUMMARY | 2023-11-11 19:30 | XMS_ITS | Clinical Summary ---
Author Organization [employer] [facility] [employer] [facility] Address [place], [place] [address] Care Team Providers Care Hands Hanger Name Role Phone Nivia Bruno MD Primary Care Provider [phone] Judie Carreno PharmD Unavailable [phone] Allergies Active Allergy Reactions Criticality Noted Date [...] injury due to substance overdose Inhale 1 Maria Stein into affected nostril(s) each time if needed [...] home use. 1 Each 06/04/19 24 Active rosuvastatin (CRESTOR) 10 mg tabletIndications: [...] for Pain. 12 Tablet 10/15/19 24 Active vilazodone 20 mg tabletIndications: Severe [...] FOR SLEEP 180 Tablet 11/04/19 24 Active medication order composerIndication s:Fibromyalgia [facility] Calcium Citrate, 250 mg 1x/day Metagenics, Magnesium L-Threonate, 1-2x/day Natural Factor, Activated Charcoal, PRN Nik, NAC, 500 mg 2x/day Nik Boswelia Phytosome, 350 mg 1-2x/day Estefania, Reservatrol 150 mg, 2x/day Orthomolecular, Fiber Plus Capsules, 3-4x/week Pure Encapsulations, Probio Mood, 1 capsules HS Pure Encaps, PureGenomics Multivitamin - not currently taking Pure Encaps, Circumasorb, 2x/day Vital Nutrients, Melatonin 10 mg - not currently taking Quicksilver, Liposomal NANNETTE, PRN Dos Bio, Anxious, PRN (homeopathic remedy) Dos Bio, Headache PRN (homeopathic remedy) Enzymedica, Apple Cider Vinegar - PRN NN Ultimate Denton-3 - daily Body Bio Balance Oil (omega-3/omega-6 blend) - 2 capsules daily Body Bio PC - daily BodyBio Tudca - daily 11/10/19 24 Active HYDROmorphone (DILAUDID) 2 mg tabletIndications: [...] Apple Cider Vinegar - temporarily ran out Denton 3 fatty acids (brand unknown) Body Balance BodyBio Enzymedica Digest Gold - 1 capsule prior to meals Nik NAC - 1 capsule twice a day 06/25/19 24 024 Discontinued(*M edication adjustment) traZODone (DESYREL) 50 mg tabletIndications: Primary insomnia TAKE 1 TO 2 TABLETS (50-100 MG) BY MOUTH AT BEDTIME NEEDED FOR SLEEP 180 Tablet 08/11/19 24 024 Discontinued(Re order (E-cancel not sent)) escitalopram oxalate (LEXAPRO) 20 mg tabletIndications: KATY (generalized anxiety disorder),Severe episode of recurrent major depressive disorder, without psychotic features (HC) TAKE ONE TABLET BY MOUTH EVERY MORNING 30 Tablet 10/18/19 24 024 Discontinued(*M ed complete/Regime n complete/Level of care change) medication order composerIndication s:Fibromyalgia [facility] Calcium [...] Apple Cider Vinegar - PRN NN Ultimate Denton-3 - daily Body Bio Balance Oil (omega-3/omega-6 blend) - 2 capsules daily Body Bio PC - daily BodyBio Tudca - daily 10/22/19 24 024 Discontinued(*M edication adjustment) vilazodone (VIIBRYD) 10 mg tabletIndications: Severe episode of recurrent major depressive disorder, without psychotic features (HC),KATY (generalized anxiety disorder) Take 1 Tablet (10 mg) by mouth once daily. Take for 7 days, then increase to 20 mg tablet. 7 Tablet 10/24/19 24 024 Discontinued(*P atient states no longer taking) Active Problems Problem Noted Date Diagnosed Date [...] Encounters Date Type Department Care Team Description 11/11/2023 1:00 PM CDT Phone Office Visit [facility] [address] [place] [phone] Keiko Downs, [facility] Individual Therapy; Phone Visit 11/10/2023 11:00 AM CDT Office Visit [facility] [address] [place] [address] Jyoti Sellers PA Follow Up (UTI, new plan) 11/10/2023 Travel 11/07/2023 1:00 PM CDT Procedure Only [facility] [address] [place] [address] Tyler Parson L Ac Acupuncture 11/07/2023 Travel 11/05/2023 Lab Requisition [facility] [phone] Corine Guillaume MD 11/04/2023 1:00 PM CDT Phone Office Visit [facility] [address] [place] [phone] Keiko Downs [facility] Individual Therapy; Phone Visit 11/04/2023 11:15 AM CDT Phone Office Visit [facility] [address] [place] [address] Freda Serrano MD Phone Visit; Follow Up 11/04/2023 Travel 10/31/2023 2:30 PM CDT Procedure Only [facility] [address] [place] [address] Tyler Parson L Ac Acupuncture 10/31/2023 Travel 10/30/2023 10:40 AM CDT Office Visit [facility] [address] [place] [phone] Tomas Mckeon MD Consult (Sore on inside on mouth. upper lips. Nasal congestion. Deviated septum) 10/29/2023 3:30 PM CDT Pharmacist Medication Management [address] [address] Judie Carreno PharmD Pharmacist Medication Management ([facility] follow-up - [facility] patient - pain/MH) 10/29/2023 Travel 10/28/2023 11:30 AM CDT Phone Office Visit [facility] [address] [place] [address] Keiko Downs, [facility] Individual Therapy; Phone Visit 10/28/2023 Travel 10/24/2023 11:15 AM CDT Phone Office Visit [facility] [address] [place] [address] Freda Serrano MD Follow Up; Phone Visit 10/24/2023 Travel 10/22/2023 11:05 AM CDT Office Visit [facility] [address] [place] [address] Kourtney Cherry PA Mouth/Lip Problem 10/22/2023 10:00 AM CDT Phone Office Visit [address] [address] Jyoti Sellers PA Phone Visit; Follow Up (Labs, medication ) 10/22/2023 Travel 10/22/[address] [address] Jyoti Sellers PA Appointment (Cancellation note per patient) 10/21/2023 11:30 AM CDT Phone Office Visit [facility] [address] [facility] [phone] Keiko Downs [facility] Individual Therapy; Phone Visit 10/21/2023 Travel 10/17/2023 2:30 PM CDT Procedure Only [address] [address] Tyler Parson L Ac Acupuncture 10/17/2023 10:30 AM CDT Pharmacist Medication Management [address] [address] Judie Carreno PharmD Pharmacist Medication Management ([facility] follow-up - [facility] patient - phone visit) 10/17/2023 Patient Outreach [address] [address] Aubree Nuñez, YASMIN Primary RN Care Management (FCM referral ) 10/16/[address] [address] Judie Carreno PharmD Medication Management 10/16/2023 Travel 10/16/[address] [address] Freda Serrano MD Refill Request (Escitalopram Oxalate) 10/15/2023 1:45 PM CDT Ancillary Procedure [address] [address] 10/15/2023 1:00 PM CDT Office Visit [address] [address] Facundo Mijares MD Follow Up (Fell a week ago-pain right shoulder and right leg pain) 10/14/2023 1:00 PM CDT Phone Office Visit [address] [phone] Keiko Downs [facility] Individual Therapy; Phone Visit 10/14/2023 Travel 10/13/2023 Telephone [facility] [address] [place] [address] Facundo Mijares MD Error-please disregard (as soon as possible); Appointment Request 10/10/2023 2:00 PM CDT Procedure Only [facility] [address] [place] [address] Tyler Parson L Ac Acupuncture 10/10/2023 Travel 10/09/2023 Refill [facility] [address] [place] [address] Nivia Bruno MD Refill Request 10/09/2023 Patient Outreach [facility] - Care Management Navigation/[facility] [address] [place] [address] Kulwant Palmer Care Management Intake (Engagement Outreach/) 10/08/2023 Patient Outreach [facility] [address] [place] [address] Judie Carreno PharmD Pharmacist Medication Management (Medication refills) 10/07/2023 2:30 PM CDT Patient Outreach [facility] Care [facility] - Advanced Care Team [address] [place] [address] Lisa Thakur, mule spinner Management (Transition) 10/07/2023 1:00 PM CDT Phone Office Visit [facility] [address] [place] [address] eKiko Downs, [employer] Individual Therapy; Phone Visit 10/07/2023 Travel 10/03/2023 3:32 PM CDT - 10/03/2023 11:59 PM CDT Hospital Encounter [facility] [address] [place] [address] Nivia Bruno MD Pain in left lower leg 10/03/2023 2:00 PM CDT Procedure Only [facility] [address] [place] [address] Tyler Parson L Ac 10/03/2023 11:15 AM CDT Office Visit [facility] [address] [place] [address] Nivia Bruno MD Ankle Injury (hurt ankle - wondering about the veins/worried about DVT); Derm Problem (itchy under breasts/) 10/03/2023 Telephone [facility] [address] [place] [address] Nivia Bruno MD Results (no DVT in leg) 10/03/2023 Travel 10/01/2023 Telephone [facility] [address] [place] [address] Freda Serrano MD DONNY 10/01/2023 Telephone [facility] [address] [place] [address] Nivia Bruno MD Appointment (PROLIA SHOT ) 09/30/2023 11:30 AM CDT Phone Office Visit [address] [phone] Keiko Downs, [facility] Individual Therapy; Phone Visit 09/30/2023 Nurse Triage [address] [address] Nivia Bruno MD Results (DEXA) 09/30/[address] [address] Nivia Bruno MD Imaging (RESULTS) 09/30/2023 Travel 09/26/2023 11:30 AM CDT Pharmacist Medication Management [address] [address] Judie Carreno, Zoraida Pharmacist Medication Management ([facility] follow-up - [facility] patient - pain) 09/26/2023 9:00 AM CDT Office Visit [facility] [address] [place] [address] Facundo Mijares MD Consult (Left ankle pain started 09/13/2023 after doing pool heel raises/) 09/26/2023 Travel 09/25/2023 2:00 PM CDT Procedure Only [facility] [address] [place] [address] Tyler Parson L Ac Acupuncture 09/24/2023 2:00 PM CDT Ancillary Procedure [facility] [address] [place] [address] 09/24/2023 Patient Outreach [facility] - Advanced Care Team [address] [place] [address] Dana Benitez Medication Management (R/S NO SHOW CMR) 09/24/2023 Travel 09/23/2023 1:00 PM CDT Phone Office Visit [facility] [address] [place] [phone] Keiko Downs, [employer] SOFTWARE ENGINE[employer] Individual Therapy; Phone Visit 09/23/2023 Travel 09/19/2023 2:00 PM CDT Procedure Only [facility] [address] [place] [address] Tyler Parson L Ac Acupuncture 09/19/2023 Travel 09/18/2023 1:00 PM CDT Patient Outreach [facility] - Advanced Care Team [address] [place] [address] Lisa Thakur, mule spinner Management (Follow up Outreach/JUDITH) 09/16/2023 3:40 PM CDT Office Visit [facility] [place] [facility] [address] [place] [address] Norberto Pretty MD Follow Up (Follow up after MRI ) 09/16/2023 1:00 PM CDT Phone Office Visit [facility] [address] [place] [phone] Keiko Downs [employer] Individual Therapy; Phone Visit 09/15/2023 12:45 PM CDT Phone Office Visit [facility] [address] [place] [address] Freda Serrano MD Medication Management (Things are going okay, always cold wants to discuss); Phone Visit 09/15/2023 Telephone [facility] [address] [place] [address] Nivia Bruno MD Concerns 09/15/2023 Telephone [facility] [address] [place] [address] Facundo Mijares MD Questions 09/15/2023 Travel 09/15/2023 Telephone [facility] [address] [place] [address] Freda Serrano MD Appointment 09/14/2023 Orders Only [facility] Scanner 1 scan: (1-Ord) [facility], 09/14/2023 09/12/2023 2:00 PM CDT Procedure Only [facility] [address] [place] [address] Tyler Parson L Ac Acupuncture 09/12/2023 Travel 09/09/2023 1:00 PM CDT Phone Office Visit [facility] [address] [place] [address] Keiko Downs, [facility] Individual Therapy; Phone Visit 09/09/2023 Travel 09/05/2023 1:30 PM CDT Procedure Only [facility] [address] [place] [address] Tyler Parson L Ac Acupuncture 09/05/2023 Travel 09/04/2023 Patient Outreach [facility] Care Management - Advanced Care Team [address] [place] [address] Lisa Thakur, mule spinner Management (Care Coordination) 09/03/2023 8:10 AM CDT Procedure Only [facility] [address] [place] [address] Facundo Mijares MD Procedure (Right shoulder subacromial and ... 09/03/2023 Telephone [facility] [address] [place] [address] Nivia Bruno MD Questions (RECLASSIFYING DXA SCAN) 09/03/2023 Patient Outreach [address] [address] Judie Carreno PharmD Pharmacist Medication Management (Returning Call/Voicemail) 09/03/2023 Travel 09/02/2023 1:00 PM CDT Phone Office Visit [facility] [address] [place] [address] Keiko Downs, [facility] Individual Therapy; Phone Visit 09/02/2023 Telephone [facility] [address] [phone] Booker Lloyd MD CALL BACK 09/02/2023 Telephone [facility] [address] [phone] Booker Lloyd MD Questions 09/02/2023 Telephone [facility] [address] [place] [address] Facundo Mijares MD Questions 09/01/2023 11:30 AM CDT Pharmacist Medication Management [address] [address] Judie Carreno PharmD Pharmacist Medication Management ([facility] follow-up - [facility] patient - RLS/Mood) 09/01/2023 Travel 08/29/2023 2:00 PM CDT Procedure Only [facility] [address] [place] [address] Tyler Parson L Ac Acupuncture (NO TREATMENT TODAY. ) 08/29/2023 Travel 08/29/2023 Patient Outreach [address] [address] Judie Carreno, Zoraida Pharmacist Medication Management (Lexapro questions - reschedule appointment) 08/28/2023 3:00 PM CDT Patient Outreach [facility] Care Management - Advanced Care Team [address] [place] [address] Lisa Thakur, mule spinner Management (Follow up Outreach) 08/27/[address] [address] Facundo Mijares MD CALL BACK (right shoulder cortisone injection) 08/22/2023 2:00 PM CDT Procedure Only [address] [address] Tyler Parson L Ac Acupuncture 08/22/2023 Orders Only [facility] Scanner 1 scan: (1-Ord) INCOMING RECORDS-MRI, [facility], 08/22/2023 08/22/[address] [address] Nivia Bruno MD Refill Request (Clobetasol 0.05%) 08/22/2023 Travel 08/22/2023 Orders Only [facility] [place] [address] [place] [address] Nivia Bruno MD 2 scans: (2-Ord) [place], HEAD/BRAIN WO CONTRAST, 08/18/2023 08/21/2023 3:40 PM CDT Office Visit [address] [address] Nivia Bruno MD Urinary Problem (Urgency and frequency, 3 days); Referral 08/20/2023 1:00 PM CDT Pharmacist Medication Management [address] [address] Judie Carreno PharmD Pharmacist Medication Management ([facility] follow-up - [facility] patient - neuro) 08/20/2023 Travel 08/19/2023 1:00 PM CDT Phone Office Visit [facility] [address] [place] [address] Keiko Downs [facility] Individual Therapy; Phone Visit; Trmt Plan 08/19/2023 Travel 08/18/2023 Orders Only [facility] Scanner 1 scan: (1-Ord) [facility], ANGIO NECK WO CON, 08/18/2023 08/18/2023 Orders Only [facility] Scanner 1 scan: (1-Ord) [place], TMJ WO CONTRAST, 08/18/2023 08/15/2023 2:00 PM CDT Procedure Only [facility] [address] [place] [address] Tyler Parson L Ac Acupuncture 08/15/2023 Telephone [facility] [address] [place] [address] Nivia Bruno MD LETTER REQUEST (Massage ) 08/15/2023 Travel 08/15/2023 Telephone [facility] [address] [phone] Norberto Pretty MD Referral (For MRA neck and MRI for Head) 08/14/2023 Patient Outreach [facility] [address] [place] [address] Judie Carreno, AugustaD Pharmacist Medication Management (Statin reaction) 08/14/2023 Telephone [facility] [address] [place] [address] Norberto Pretty MD Medication Management (gadolinium/) 08/14/2023 Telephone [facility] [address] [place], [place] [phone] Regan Urias MD Questions (Gadolinium Allergy) 08/12/2023 1:00 PM CDT Phone Office Visit [facility] [address] [place] [phone] Keiko Downs, [facility] Individual Therapy; Phone Visit 08/12/2023 Orders Only [facility] [address] [place] [address] Nivia Bruno MD Outside Order (Ordered by Booker Jewell ) 08/12/2023 Patient Out[address] [facility] Care Management - Advanced Care Team [address] [place] [address] Lisa Thakur mule spinner Management (Care Coordination) 08/12/2023 Travel from Last 3 Months Immunizations Name [...] Sign Reading Time Taken Comments Blood Pressure 100/70 11/10/2023 11:17 AM CDT Pulse 80 11/10/2023 11:17 AM CDT Temperature 36.4 ??C (97.6 ??F) 09/03/2023 8:33 AM CD T Respiratory Rate 16 04/01/2022 3:21 PM CREDIT RISK ASSOCIATE Oxygen Saturation 95% 10/22/2023 11:16 AM CDT Inhaled Oxygen Concentration - - Weight 73.5 kg (162 lb) 10/03/2023 11:27 AM CDT Height 174 cm (5' 8.5) 04/14/2023 2:10 PM CREDIT RISK ASSOCIATE Body Mass Index 24.27 04/14/2023 2:10 PM CREDIT RISK ASSOCIATE Plan of Treatment Upcoming Encounters Date Type Department Care Team (Late st Contact Info) Description 11/17/2023 1:45 PM CDT Phone Office Visit [facility] [address] [facility] [address] Freda Serrano MD [address] [facility] [address] 11/18/2023 1:00 PM CDT Phone Office Visit [facility] [address] [facility] [phone] Keiko Downs [facility] [address] [place] [address] 11/19/2023 2:00 PM CDT Pharmacist Medication Management [address] [address] Judie Carreno, AugustaD [address] [place] [address] [place] [address] 11/19/2023 3:00 PM CDT Office Visit [facility] [address] [place] [address] Jyoti Sellers PA [address] [place] [address] 11/21/2023 1:00 PM CDT Procedure Only [address] [address] Tyler Parson L Ac [address] [place] [address] 11/25/2023 11:30 AM CDT Phone Office Visit [facility] [address] [place] [phone] Keiko Downs [facility] [address] [place] [address] 11/28/2023 2:30 PM CDT Procedure Only [facility] [address] [place] [address] Tyler Parson L Ac [address] [place] [address] 12/02/2023 1:00 PM CDT Phone Office Visit [facility] [address] [facility] [address] Keiko Downs LICSW [address] [facility] [address] 12/03/2023 1:00 PM CDT Office Visit [facility] [address] [facility] [address] Jyoti Sellers PA [address] [place] [address] 12/05/2023 1:00 PM CDT Procedure Only [facility] [address] [place] [address] Tyler Parson L Ac [address] [place] [address] 12/09/2023 1:00 PM CDT Phone Office Visit [facility] [address] [facility] [place] [phone] Keiko Downs LICSW [address] [place] [address] 12/12/2023 2:00 PM CDT Procedure Only [facility] [address] [place] [address] Tyler Parson L Ac [address] [place] [address] 12/18/2023 2:00 PM CDT Procedure Only [facility] [address] [place] [address] Tyler Parson L Ac [address] [place] [address] 12/26/2023 2:00 PM CDT Procedure Only [facility] [address] [place] [address] Tyler Parson L Ac [address] [place] [address] 01/02/2024 2:00 PM CDT Procedure Only [facility] [address] [place] [address] Tyler Parson L Ac [address] [place] [address] 01/09/2024 1:00 PM CDT Procedure Only [facility] [address] [place] [address] Tyler Parson L Ac [address] [place] [address] Health Maintenance Due Date Last Done Comments Influenza for age 50-64 01/11/2024 03/16/20, 03/27/2021, 02/24/2020, Additional history exists BMI (ht and wt on same day) for age 18+ 04/14/2024 04/14/2023, 06/06/2022, 03/26/2022, Additional history exists Mammogram for age 45-75 07/31/2024 08/01/19 24, 05/13/2022, 05/10/2021, Additional history exists Depression screening for age 12+ 11/09/2024 11/10/2023, 11/07/2023, 11/04/2023, Additional history exists Tetanus booster 05/31/2026 05/31/2016, 09/30/2005 Pap test for age 21-65 11/03/2026 , 10/04/2022, 10/04/2022, Additional history exists Lipids for age 45-75 07/08/2028 07/08/2023, 09/04/2021, [...] Diagnosis Comments ACUPUNCTURE PLAN OF CARE Routine 11/07/2023 1:27 PM CDT Other low back pain ACUPUNCTURE PLAN OF CARE Routine 11/06/2023 4:24 PM CDT Other low back pain LAB TRACKING EVENT Routine 11/04/2023 3: 50 PM CDT HPV THIN PREP Routine 11/04/2023 3:50 PM CDT ACUPUNCTURE PLAN OF CARE Routine 10/17/2023 3:18 [...] REFLEX MEASURED LDL Routine 07/08/2023 12:07 PM CREDIT RISK ASSOCIATE Hyperlipidemia, unspecified hyperlipidemia type SCAN-COLONOSCOPY 01/28/2022 1:00 PM CDT ANTI HIV 1/2 Routine 06/01/2018 4:02 PM CREDIT RISK ASSOCIATE Exposure to STD ANTI HCV Routine 09/30/2017 5:38 PM CDT STD exposure from Last 3 Months or Most Recently Relevant to Health Maintenance Results * LAB TRACKING EVENT (11/04/2023 3:50 PM CDT) Other (Other) Client Collect / Unknown 11/04/2023 3:50 PM CDT 11/05/2023 4:31 PM CDT Corine Guillaume MD LAB BILL ONLY Performing Organization Address [facility] Co de Phone Number [facility] [address] [place] [address], * HPV HIGH RISK (11/04/2023 3:50 PM CDT) TYPE 16 Negative Negative 11/07/2023 4:00 PM CDT [facility] TYPE 18 Negative Negative 11/07/2023 4:00 PM CDT [facility] OTHER HIGH RISK TYPES Negative Negative 11/07/2023 4:00 PM CDT [facility] Other (Cervical) 11/04/2023 3:50 PM CDT 11/06/2023 9:26 AM CDT Narrative [facility] - 11/07/2023 4:00 PM CDT HPV types 16, 18, 31, 33, 35, 39, 45, 51, 52, 56, 58, 59, 66 and 68 DNA were undetectable or below the pre-set threshold. Methodology: Jacek Karen 4800 HPV Test Corine Guillaume MD MICROBIOLOGY Performing Organization Address [facility] Co de Phone Number [facility] [address] [place] [address], * XR FEMUR 2 VIEWS RIGHT (10/15/2023 [...] 4:52:56 PM (Electronically Signed) Nivia Bruno MD * (ABNORMAL) XR DXA BONE DENSITY 2 [...] to assess therapeutic efficacy. Ann Jay PA-C [facility] 09/30/2023 Narrative 09/30/2023 1:49 PM CDT For Patients: Results are automatically released to your [facility] ([employer]) account once available, in compliance with federal regulations. This means that you may see your results before your provider has had a chance to review them. Please allow 2-3 business days for your provider to comment on the results. XR DXA Bone Mineral Density (BMD) EXAM LOCATION: [address] [address] PATIENT NAME: Juliette Brown DATE OF : [...] two scanners are made by the same informatica mdm developer. PROCEDURE: Dual-energy x-ray absorptiometry performed with routine [...] (09/03/2023 2:23 PM CDT) Narrative [facility] [place] [facility] - 09/03/2023 2:23 PM CDT The patient [...] None Seen /HPF 08/21/2023 3:58 PM CDT [facility] WBC 0-2 0-2, 3-5, None Seen /HPF 08/21/2023 3:58 PM CDT [facility] BACTERIA Few None Seen, Rare, Few Bacteria/ HPF 08/21/2023 3:58 PM CDT [facility] EPITHELIAL CELLS Few None Seen, Few Epi/HPF 08/21/2023 3:58 PM CDT [facility] Urine URINE SPECIMEN / Unknown Non-Blood / Unknown 08/21/2023 3:53 PM CDT 08/21/2023 3:53 PM CDT Nivia Bruno MD URINE Performing Organization Address [facility]/ZIP Co de Phone Number [facility] [address] [place] [address], [place] [phone] * URINE CULTURE (08/21/2023 3:53 PM CDT) CULTURE 10-50,000 CFU/mL of multiple organisms, probable contaminants 08/23/2023 1:34 PM CDT [facility] Urine URINE SPECIMEN / Unknown Non-Blood / Unknown 08/21/2023 3:53 PM CDT 08/21/2023 3:53 PM CDT Nivia Bruno MD MICRO[facility]OLOGY [facility] [address] [place] [address], [place] * (ABNORMAL) UA W/ SEDIMENT EXAM REFLEXED PER CRITERIA (08/21/2023 3:53 PM CDT) COLOR Yellow Yellow Color 08/21/2023 3:58 PM CDT [facility] CLARITY Clear Clear Clarity 08/21/2023 3:58 PM CDT [facility] SPECIFIC GRAVITY,URINE 1.015 1.010, 1.015, 1.020, 1.025 08/21/2023 3:58 PM CDT [facility] PH,URINE 5.0(A) 6.0, 7.0, 8.0, 5.5, 6.5, 7.5, 8.5 08/21/2023 3:58 PM CDT [facility] UROBILINOGEN, QUALITATIVE Normal Normal EU/dl 08/21/2023 3:58 PM CDT [facility] PROTEIN, URINE Negative Negative mg/dL 08/21/2023 3:58 PM CDT [facility] GLUCOSE, URINE Negative Negative mg/dL 08/21/2023 3:58 PM CDT [facility] KETONES,URINE Negative Negative mg/dL 08/21/2023 3:58 PM CDT [facility] BILIRUBIN,URI NE Negative Negative 08/21/2023 3:58 PM CDT [facility] OCCULT BLOOD,URINE Negative Negative 08/21/2023 3:58 PM CDT [facility] NITRITE Negative Negative 08/21/2023 3:58 PM CDT [facility] LEUKOCYTE ESTERASE Trace(A) Negative 08/21/2023 3:58 PM CDT [facility] Urine URINE SPECIMEN / Unknown Non-Blood / Unknown 08/21/2023 3:53 PM CDT 08/21/2023 3:53 PM CDT Nivia Bruno MD URINE [facility] [address] [place] [address], * MR ANGIO STROKE HEAD WO AND [...] care provider. XR MAMMO EVA BILAT SCREEN [[id number]] CLINICAL HISTORY: ??This is an asymptomatic 63 y.o. patient. INDICATION FOR EXAM: Mammogram Screening. TECHNIQUE: CC & MLO views were obtained. ??This study was evaluated with the assistance of Computer-Aided Detection. Breast Tomosynthesis was used in interpretation. COMPARISON FILM: Yes 05/13/22 [employer] 05/10/21 [employer] FINDINGS: ??The breasts have scattered areas of fibroglandular density. There are no dominant masses, suspicious micro calcifications or areas of architectural distortion. Nivia Bruno MD MAMMO * (ABNORMAL) LIPID PANEL W REFLEX MEASURED LDL (07/08/2023 12:07 PM CREDIT RISK ASSOCIATE) CHOLESTEROL,TOTAL 285(H) 100 - 199 mg/dL 07/08/2023 9:55 PM CREDIT RISK ASSOCIATE [facility] Comment: Cholesterol, Total Reference Ranges Desirable <200 mg/dL Borderline 200-239 mg/dL High >=240 mg/dL TRIGLYCERIDES 97 <150 mg/dL 07/08/2023 9:55 PM CREDIT RISK ASSOCIATE [facility] HDL CHOLESTEROL 76 >40 mg/dL 9:55 PM [facility] NON-HDL CHOLESTEROL 209(H) <145 mg/dl 07/08/2023 9:55 PM [facility] CHOL/HDL RATIO 3.75 <4.50 07/08/2023 9:55 PM [facility] LDL CHOLESTEROL 190(H) <=130 mg/dL 07/08/2023 9:55 PM [facility] VLDL CHOLESTEROL 19 <=30 mg/dL 07/08/2023 9:55 PM [facility] PROVIDER ORDERED STATUS RANDOM 07/08/2023 9:55 PM [facility] Blood BLOOD SPECIMEN / Unknown Venipuncture / Unknown 07/08/2023 12:07 PM CREDIT RISK ASSOCIATE 07/08/2023 12:07 PM CREDIT RISK ASSOCIATE Nivia Bruno MD CHEMISTRY [facility] [address] [place] [address], * SCAN-COLONOSCOPY (01/28/2022 1:00 PM CDT) Narrative Procedure Note Edison Ceron MD - 01/28/2022 12:02 PM CDT [facility] [address], [address], [place] [address] Patient Name: Juliette Brown Gender: Female Exam Date: 01/28/2022 Visit Number: [id number] Age: 61 Years 9 Months Date of : 1960 Attending MD: Edison Ceron MD Medical Record#: [id number] ----- Procedure: Colonoscopy Indications: Recent history of [...] Race: White Ethnicity: Not or Preferred Language: Sami cc: Nivia Bruno MD [facility] [phone] Edison Ceron MD OTHER * ANTI HIV 1/2 (06/01/2018 4:02 PM CREDIT RISK ASSOCIATE) Pathologist [facility] HIV-1/HIV-2 ANTIBODY Non-Reacti ve Non-Reacti ve 06/01/2018 8:08 PM CREDIT RISK ASSOCIATE [facility] Comment:HIV-1 p24 and HIV-1/ HIV-2 Ab not detected. Blood BLOOD SPECIMEN / Unknown Venipuncture / Unknown 06/01/2018 4:02 PM CREDIT RISK ASSOCIATE 06/01/2018 4:02 PM CREDIT RISK ASSOCIATE Nivia Bruno MD [facility] [address] [place] [address], * ANTI HCV (09/30/2017 5:38 PM CDT) Pathologist [facility] HEPATITIS C ANTIBODY Non-React mathieu Non-React mathieu 10/01/2017 2:41 PM CDT [facility] Comment:Antibodies to HCV no t detected; does not exclude the possibility of exposure to HCV. Blood BLOOD SPECIMEN / Unknown Venipuncture / Unknown 09/30/2017 5:38 PM CDT 09/30/2017 5:38 PM CDT Kourtney GUERRERO [facility] [address] [place] [address], from Last 3 Months or Most Recently Relevant to Health Maintenance Advance Directives Documents on File Type Date Recorded Patient Manager Fixed Income Expl anation Healthcare Directive 04/01/2022 022 * [...] 6:43 PM 06/10/2011 6:41 PM Care Teams Hands Hanger Relationship Specialty Start Date End Date Nivia Bruno MD [address] [place] [address] PCP - General Family Practice 07/01/19 Judie Carreno, AugustaD [address] [place] [address] Pharmacist Medication Management Pharmacology 05/28/23 05/28/25
--- OUTSIDE RECORDS SUMMARY | 2023-11-11 19:30 | XMS_ITS | Encounter Summary ---
Author Organization [facility] Address [address] [place] [address] Care Team Providers Care Belt Notcher Name Role Phone Needs Pcp, Assignment Primary Care Provider [phone] Encounter Details Date Type Department Care Team (Late st Contact Info) Description 07/16/2019 Lab Requisition [facility] [address] [facility]. [place], [place] [address] Lul Hunter MD [address] [place], [place] [id number] Encounter for surgical aftercare following surgery on [...] organs documented in this encounter Care Teams Belt Notcher Relationship Specialty Start Date End Date Needs Pcp, Bertha DE [facility]Z [facility] [place], [place] [address] PCP - General 02/28/21 documented as of this encounter
--- OUTSIDE RECORDS SUMMARY | 2023-11-11 19:30 | XMS_ITS | Encounter Summary ---
Author Organization [place] Address [facility] [place] [address] Care Team Providers Care Waste Handling Technician Name Role Phone Heladio Martins MD Primary Care Provider Kelsi Glez MD Unavailable [phone] Nivia Bruno MD Primary Care Provider [phone] Encounter Details Date Type Department Care Team (Latest Contact Info) Description 03/06/2021 [facility] Treatment Plan [facility] [address] [place] [phone] Dav Tierney MD [address] [place] [address] Megan Ruiz, SHANNON Major depressive [...] documented as of this encounter Care Teams Waste Handling Technician Relationship Specialty Start Date End Date Heladio Martins MD PCP - General Internal Medicine 03/05/16 03/21/21 Nivia Bruno MD [address] [facility] [place] [address] PCP - General 03/22/21 Kelsi Handy MD [address] [place] [address] Assigned OBGYN Provider 04/23/20 3 documented as of this encounter
--- OUTSIDE RECORDS SUMMARY | 2023-11-11 19:30 | XMS_ITS | Referral Summary ---
Author Organization [place] Address [address] [place] [address] Care Team Providers Care Glass Handler Name Role Phone Nivia Bruno MD Primary Care Provider [phone] Allergies Active Allergy Reactions Criticality Noted Date [...] Take 1 tablet by mouth 07/22/2014 Active [place]-3 1000 MG CAPS 04/02/2016 Acti ve Saline (SODIUM CHLORIDE) 0.65 % SOLN [place] 1 spray in nostril 01/28/2015 Active traZODone [...] BASIC METABOLIC PANEL Routine 06/23/2017 6:00 AM SENIOR IT BUSINESS ANALYST from Last 3 Months or Most Recently Relevant to Health Maintenance Results * Basic metabolic panel (06/23/2017 6:00 AM SENIOR IT BUSINESS ANALYST) Sodium 139 136 - 145 mmol/L 06/23/2017 10:13 AM [facility] Potassium 4.2 3.5 - 5.0 mmol/L 06/23/2017 10:13 AM [facility] Chloride 103 98 - 107 mmol/L 06/23/2017 10:13 AM [facility] Carbon Dioxide (CO2) 29 22 - 31 mmol/L 06/23/2017 10:13 AM [facility] Anion Gap 7 5 - 18 mmol/L 06/23/2017 10:13 AM [facility] Glucose 105 70 - 125 mg/dL 06/23/2017 10:13 AM [facility] Calcium 9.4 8.5 - 10.5 mg/dL 06/23/2017 10:[address] [facility] Urea Nitrogen 16 8 - 22 mg/dL 06/23/2017 10:13 AM [facility] Creatinine 0.69 0.60 - 1.10 mg/dL 06/23/2017 10:13 AM [facility] GFR Estimate If Black >60 >60 mL/min/1.7 3m2 06/23/2017 10:13 AM SENIOR IT BUSINESS ANALYST [facility] GFR Estimate >60 >60 mL/min/1.7 2 06/23/2017 10:13 AM [facility] Blood specimen (specimen) STRUCTURE OF LEFT UPPER LIMB / Unknown Venipuncture / Unknown 06/23/2017 6:00 AM SENIOR IT BUSINESS ANALYST 06/23/2017 9:50 AM SENIOR IT BUSINESS ANALYST Narrative [facility] - 06/23/2017 10:13 AM SENIOR IT BUSINESS ANALYST Fasting Glucose reference range is 70-99 mg/dL per [place] Diabetes Association (ADA) guidelines. Rosmery Simpson MD LAB - BLOOD ORDER [facility] [address] [address], [facility] [address] [address] from Last 3 Months or Most Recently Relevant to Health Maintenance Advance Directives For more information, please contact: [phone] * Full Code (Latest Code Status on File) Date Activated Date Inactivated Comments 04/16/2016 1:58 AM 04/22/2016 3:55 PM Care Teams Glass Handler Relationship Specialty Start Date End Date Nivia Bruno MD [facility] - General 03/22/21
--- OUTSIDE RECORDS SUMMARY | 2023-11-11 19:30 | XMS_ITS | Encounter Summary ---
Author Organization [employer] Address [address] [place] [address] Care Team Providers Care Commission Sales Associate Name Role Phone Needs Pcp, Assignment Primary Care Provider [phone] Reason for Visit * Reason Comments Follow-up, NOS Entered automaticall y based on patient selection in [facility]. Encounter Details Date Type Department Care Team (Late st Contact Info) Description 10/08/2023 2:15 PM CDT E-Visit [facility] [address] [place] [address] Leif Stewart PA-C [address] [place] [address] [place] [address] Chief Comp: Follow-up, NOS Social History Tobacco [...] can I have the infusion at the [facility]? Their telephone # is . Thank you for your time. Kind Regards, Juliette documented in this encounter Plan of Treatment Not on file documented as of this encounter Visit Diagnoses Not on filedocumented in this encounter Care Teams Commission Sales Associate Relationship Specialty Start Date End Date Needs Pcp, [place] [address] PCP - General 02/28/21 documented as of this encounter
--- OUTSIDE RECORDS SUMMARY | 2023-11-11 19:30 | XMS_ITS | Encounter Summary ---
Author Organization [place] Address [address] [place] [address] Care Team Providers Care Fourdrinier Machine Tender Name Role Phone Heladio Martins MD Primary Care Provider Kelsi Glez MD Unavailable [phone] Nivia Bruno MD Primary Care Provider [phone] Reason for Visit * Reason Onset Date Comments MH/CD Inpatient 04/15/2016 Encounter Details Date Type Department Care Team ([facility] Contact Info) Description 04/15/2016 Telephone [facility] Behavioral Health Intake [address] [place] [address] Generic, Behavioral Intake, MD MH/CD Inpatient Social History Tobacco Use Types Packs/Day Years Used Date Smoking Tobacco: Never Assessed Sex and Gender Information Value Date Recorded Sex Assigned at Not on file Gender Identity Not on file Sexual Orientation Not on file documented as of this encounter Miscellaneous Notes * Telephone Encounter - nAdressa Fine - 04/15/2016 8:22 PM CST S: [...] as it is after 10pm); unit notified HANA ARCHITECT documented in this encounter Plan of Treatment Not on file documented as of this encounter Visit Diagnoses Not on filedocumented in this encounter Care Teams Fourdrinier Machine Tender Relationship Specialty Start Date End Date Heladio Martins MD PCP - General Internal Medicine 03/05/16 03/21/21 Nivia Bruno MD [address] [place] [address] PCP - General 03/22/21 Kelsi Handy MD [address] [place] [place] [address] Assigned OBGYN Provider 04/23/20 3 documented as of this encounter
--- OUTSIDE RECORDS SUMMARY | 2023-11-11 19:30 | XMS_ITS | Encounter Summary ---
Author Organization [place] Address [address] [place] [address]. [place] [address] Care Team Providers Care Carton Wrapper Name Role Phone Kelsi Handy MD Unavailable [phone] Nivia Bruno MD Primary Care Provider [phone] Encounter Details Date Type Department Care Team ([facility] Contact Info) Description 09/25/2021 Telephone [facility] Behavioral Health Intake [address] [place] [address] Generic, Behavioral Intake, Social History [...] Patient Name: ?? Location of programming: [facility] Start Date: 09/27/21 Group (BHxxxxx on #days of the week# at #start time to end time#): 55+ clinic 1 Provider (name of MD):kerry Number of visits to be scheduled: 1 Duration of Appointment in minutes: 120 mins Visit Type (Robert - 4001 / Zoom - 2650 / In-person or Treatment - 870) :zoom 2657 Additional notes: documented in this encounter Plan of Treatment Not on file documented as of this encounter Visit Diagnoses Not on filedocumented in this encounter Additional Health Concerns Assessment Noted Time PHQ-9 Depression Total Score: 7 06/14/19 22 10:59 AM [facility] TEACHER documented as of this encounter Care Teams Carton Wrapper Relationship Specialty Start Date End Date Nivia Bruno MD [address] [place] [address] PCP - General 03/22/21 Kelsi Handy MD [address] [place] [address] Assigned OBGYN Provider 04/23/20 3 documented as of this encounter
--- OUTSIDE RECORDS SUMMARY | 2023-11-11 19:30 | XMS_ITS | Encounter Summary ---
Author Organization [employer] Address [address] [place] [address] Care Team Providers Care Loom Repairer Name Role Phone Needs Pcp, Assignment Primary Care Provider [phone] Reason for Visit * Reason Comments CONSULT Encounter Details Date Type Department Care Team (Late st Contact Info) Description 10/01/2023 12:45 PM CDT Office Visit [facility] [address] [place] [address] Leif Stewart PA-C [address] [place], [place] [address] [address] Age-related osteoporosis without current pathological fracture (HRC) [...] you contact your insurance to verify your vip-qk-jrxbzp expense for all medications, as it may [...] daily through food and supplements. Vitamin D: 6335-3649 IU daily Exercise Aerobic Exercise: Work your [...] pack on the infusion site or taking fkae-bgh-ydlpkxk pain relievers such as acetaminophen as detailed [...] in 2020 -- Prolia x 2 years ([id number]) managed through [facility] Current Treatment: -- Prolia Treatment Duration: 2021-current [...] daily. Indications: clot prevention bacitracin-polymyxin b (POLYSPORIN) 500-22182 UNIT/GM ointment Apply topically two times a [...] at bedtime. Indications: Trouble Sleeping Multiple Minerals-Vitamins ([id number]) TABS Take 1 Tablet by mouth daily. [...] (OCEAN) 0.65 % nasal solution Place 1 Mark into both nostrils every 2 hours as [...] osteoporosis documented in this encounter Care Teams Loom Repairer Relationship Specialty Start Date End Date Needs Pcp, [place] [address] PCP - General 02/28/21 documented as of this encounter
--- OUTSIDE RECORDS SUMMARY | 2023-11-11 19:30 | XMS_ITS | Clinical Summary ---
Author Organization [facility] Address [address] [place] [address] Care Team Providers Care Mailroom Personnel Name Role Phone Needs Pcp, Assignment Primary Care Provider [phone] Source Comments You are receiving this document as you are listed as the primary care provider,follow-up provider, or the patient has been referred to you for consultation.This is in compliance with the Medicare andHigh[facility] District Hospitalcaid EHR Incentive Program,which states Providers who transition their patient to another setting of careor provider of care or refers their patient to another provider of care shouldprovide summary care record for each transition of care or referral. [employer] Allergies Active Allergy Reactions Criticality Noted Date [...] (OCEAN) 0.65 % nasal solution Place 1 [place] into both nostrils every 2 hours as needed for Congestion. Active bacitracin-polymyx in b (POLYSPORIN) 500-52719 UNIT/GM ointmentIndication s:dry nose Apply topically two [...] Overview: Added automatically from request for surgery [id number] Sarcoidosis, lung 06/01/2019 Recurrent major depressive disorder [...] Team Description 10/08/2023 2:15 PM CDT E-Visit [address] [address] Leif Stewart PA-C Chief Comp: Follow-up, NOS 10/08/2023 Orders Only HIM DEPARTMENT Provider, MD [place] 10/01/2023 12:45 PM CDT Office Visit [address] [address] Leif Stewart PA-C Age-related osteoporosis without current pathological fracture (HRC) (Primary Dx) 09/03/[address] [address] Leif Stewart PA-C QUESTIONS, GENERAL from Last [...] (145 lb 12.8 oz) 07/16/2019 9:00 PM INVOICE MACHINE OPERATOR Height 172.7 cm (5' 8) 07/15/2019 9:30 PM INVOICE MACHINE OPERATOR Body Mass Index 22.17 07/15/2019 9:30 PM INVOICE MACHINE OPERATOR Plan of Treatment Health Maintenance [...] this topic Medical Devices Implanted Type Area Flexo Press Operator Device Identifier Shelf Expiration Date Model / Serial / Lot Chip Canc Crouton 30cc - [id number] Implanted:Qty: 1 on 07/07/2019 by Tobias Martin MD at [facility] DEVICE Right: LEG [employer] 06/30/2023 [id number] / [id number] / [id number] Chip Canc Crouton 30cc - [id number] Implanted:Qty: 1 on 07/07/2019 by Tobias Martin MD at [facility] DEVICE Right: LEG [employer] 06/30/2023 [id number] / [id number] / [id number] Procedures Procedure Name Priority Date/Time [...] Negative (Non Reactive) 08/25/2018 4:34 PM CDT [facility] Comment:HIV-1 p24 Antigen an d HIV-1/HIV-2 Antibody not detected Blood Venipuncture / Unknown 08/25/2018 11:24 AM CDT 08/25/2018 11:24 AM CDT Carin Rainey MD LAB_1 Performing Organization Address City/[facility] Co de Phone Number [facility] [place], [place] [phone] [place] [address] * HCAB - Hepatitis C Virus Paula with Reflex In-House (08/25/2018 11:24 AM CDT) Hepatitis C Antibody Negative (Non Reactive) Negative (Non Reactive) 08/25/2018 4:34 PM CDT [facility] Comment:Antibodies to HCV no t detected. Does not exclude the possiblity of exposure to HCV. Blood Venipuncture / Unknown 08/25/2018 11:24 AM CDT 08/25/2018 11:24 AM CDT Carin Rainey MD LAB_1 Performing Organization Address [facility] de Phone Number [facility] [address] [place] [phone] [place] [address] from Last 3 Months or Most Recently Relevant to Health Maintenance Advance Directives Documents on File Type Date Recorded Patient Front Office Manager Expl anation HEALTHCARE DIRECTIVE 07/10/2019 ADVANCE D DIRECTIVE 07/10/2019 * Full Code (Latest Code Status on File) Date Activated Date Inactivated Comments 07/15/2019 9:18 PM 07/20/2019 4:20 PM * Full Code Date Activated Date Inactivated Comments 07/07/2019 4:33 PM 07/10/2019 6:22 PM Care Teams Mailroom Personnel Relationship Specialty Start Date End Date Needs Pcp, [place] [address] PCP - General 02/28/21
--- OUTSIDE RECORDS SUMMARY | 2023-11-11 19:30 | XMS_ITS | Encounter Summary ---
Author Organization [facility] Address [address], [place] [address] Care Team Providers Care Hurricane Tracker Name Role Phone Needs Pcp, Assignment Primary Care Provider [phone] Encounter Details Date Type Department Care Team (Late st Contact Info) Description 07/12/2019 Lab Requisition [facility] [address] [facility] [place] [address] Lul Hunter MD [address] [place], [place] [id number] Encounter for surgical aftercare following surgery on [...] BASIC METABOLIC PANEL Routine 07/13/2019 7:00 AM EMPLOYEE ADVISER Encounter for surgical aftercare following surgery on the nervous system COMPLETE BLOOD COUNT-NO DIFF Routine 07/13/2019 7:00 AM EMPLOYEE ADVISER Encounter for surgical aftercare following surgery on the nervous system documented in this encounter Results * (ABNORMAL) Basic Metabolic Panel (07/13/2019 7:00 AM EMPLOYEE ADVISER) Sodium 136 136 - 145 mmol/L 07/13/2019 12:35 PM EMPLOYEE ADVISER [facility] Potassium 4.7 3.5 - 5.1 mmol/L 07/13/2019 12:35 PM EMPLOYEE ADVISER [facility] Chloride 100 98 - 109 mmol/L 07/13/2019 12:35 PM EMPLOYEE ADVISER [facility] CO2 27 20 - 29 mmol/L 07/13/2019 12:35 PM EMPLOYEE ADVISER [facility] Anion Gap 9 7 - 16 mmol/L 07/13/2019 12:35 PM EMPLOYEE ADVISER [facility] Calcium 9.2 8.4 - 10.4 mg/dL 07/13/2019 12:35 PM EMPLOYEE ADVISER [facility] BUN 18 7 - 26 mg/dL 07/13/2019 12:35 PM EMPLOYEE ADVISER [facility] Creatinine 0.76 0.55 - 1.02 mg/dL 07/13/2019 12:35 PM EMPLOYEE ADVISER [facility] GFR, Estimated >60 >60 mL/min/1.7 3m2 07/13/2019 12:35 PM EMPLOYEE ADVISER [facility] GFR, Est If >60 >60 mL/min/1.7 3m2 07/13/2019 12:35 PM EMPLOYEE ADVISER [facility] Glucose 105(H) 70 - 100 mg/dL 07/13/2019 12:35 PM EMPLOYEE ADVISER [facility] Comment:The given reference range is for the fasting state. Non-fasting reference range for glucose is 70 - 180 mg/dL. Hours Fasting Unknown 07/13/2019 12:35 PM EMPLOYEE ADVISER [facility] Blood Venipuncture / Unknown 07/13/2019 7:00 AM EMPLOYEE ADVISER 07/13/2019 10:40 AM EMPLOYEE ADVISER Lul Hunter MD LAB_1 [facility] [address] * (ABNORMAL) Complete Blood Count-No Diff (07/13/2019 7:00 AM EMPLOYEE ADVISER) WBC 4.7 3.5 - 10.5 x10(9)/L 07/13/2019 11:17 AM EMPLOYEE ADVISER [facility] RBC 3.19(L) 3.90 - 5.03 x10(12)/L 07/13/2019 11:17 AM EMPLOYEE ADVISER [facility] Hemoglobin 10.1(L) 12.0 - 15.5 g/dL 07/13/2019 11:17 AM EMPLOYEE ADVISER [facility] HCT 31.2(L) 34.9 - 44.5 % 07/13/2019 11:17 AM EMPLOYEE ADVISER [facility] MCV 97.8 80.0 - 100.0 fL 07/13/2019 11:17 AM EMPLOYEE ADVISER [facility] MCH 31.7 27.6 - 33.3 pg 07/13/2019 11:17 AM EMPLOYEE ADVISER [facility] MCHC 32.4 31.5 - 35.2 g/dL 07/13/2019 11:17 AM EMPLOYEE ADVISER [facility] RDW 11.7(L) 11.9 - 15.5 % 07/13/2019 11:17 AM EMPLOYEE ADVISER [facility] Platelets 221 150 - 450 x10(9)/L 07/13/2019 11:17 AM EMPLOYEE ADVISER [facility] Automated NRBC 0 <=0 /100 WBC 07/13/2019 11:17 AM EMPLOYEE ADVISER [facility] Blood Venipuncture / Unknown 07/13/2019 7:00 AM EMPLOYEE ADVISER 07/13/2019 10:44 AM EMPLOYEE ADVISER Lul Hunter MD LAB_1 Performing Organization Address City/State/[facility] Co de Phone Number [facility] [address] [place] [address], [facility] documented in this encounter Visit Diagnoses Diagnosis Encounter for surgical aftercare following surgery on the nervous system documented in this encounter Care Teams Hurricane Tracker Relationship Specialty Start Date End [place] [address] PCP - General 02/28/21 documented as of this encounter
--- OUTSIDE RECORDS SUMMARY | 2023-11-11 19:30 | XMS_ITS | Clinical Summary ---
Author Organization [place] [facility] Address [address] [place] [address] Care Team Providers Care Waste Water Or Water Plant Operator Name Role Phone Nivia Bruno MD Primary Care Provider [phone] Allergies Active Allergy Reactions Criticality Noted Date [...] Take 1 tablet by mouth 07/22/2014 Active [place]-3 1000 MG CAPS 04/02/2016 Acti ve Saline (SODIUM CHLORIDE) 0.65 % SOLN Bloomingrose 1 spray in nostril 01/28/2015 Active traZODone [...] 10/2020, 03/21/2021, Additional history exists COVID-19 Vaccine (2022- season) 2023 02/21/2021, 08/09/2020, 07/19/2020 MAMMO SCREENING 05/10/2023 05/10/2021 INFLUENZA VACCINE (#1) 2024 , 02/24/2020, 02/07/2014, Additional history exists DTAP/TDAP/TD IMMUNIZATION [...] METABOLIC PANEL Routine 06/23/2017 6:00 AM SENIOR DESIGN ENGINEERING SPECIALIST from Last 3 Months or Most Recently Relevant to Health Maintenance Results * Basic metabolic panel (06/23/2017 6:00 AM SENIOR DESIGN ENGINEERING SPECIALIST) Sodium 139 136 - 145 mmol/L 06/23/2017 10:13 AM [facility] Potassium 4.2 3.5 - 5.0 mmol/L 06/23/2017 10:13 AM [facility] Chloride 103 98 - 107 mmol/L 06/23/2017 10:13 AM [facility] Carbon Dioxide (CO2) 29 22 - 31 mmol/L 06/23/2017 10:13 AM [facility] Anion Gap 7 5 - 18 mmol/L 06/23/2017 10:13 AM [facility] Glucose 105 70 - 125 mg/dL 06/23/2017 10:13 AM [facility] Calcium 9.4 8.5 - 10.5 mg/dL 06/23/2017 10:13 AM [facility] Urea Nitrogen 16 8 - 22 mg/dL 06/23/2017 10:13 AM [facility] Creatinine 0.69 0.60 - 1.10 mg/dL 06/23/2017 10:13 AM [facility] GFR Estimate If Black >60 >60 mL/min/1.7 3m2 06/23/2017 10:13 AM SENIOR DESIGN ENGINEERING SPECIALIST [facility] GFR Estimate >60 >60 mL/min/1.7 [facility] 06/23/2017 10:13 AM [facility] Blood specimen (specimen) STRUCTURE OF LEFT UPPER LIMB / Unknown Venipuncture / Unknown 06/23/2017 6:00 AM SENIOR DESIGN ENGINEERING SPECIALIST 06/23/2017 9:50 AM SENIOR DESIGN ENGINEERING SPECIALIST Narrative [facility] - 06/23/2017 10:13 AM SENIOR DESIGN ENGINEERING SPECIALIST Fasting Glucose reference range is 70-99 mg/dL per [place] Diabetes Association (ADA) guidelines. Rosmery Simpson MD LAB - BLOOD ORDER [facility] [address] [address], [facility] [address] [address] from Last 3 Months or Most Recently Relevant to Health Maintenance Advance Directives For more information, please contact: [phone] * Full Code (Latest Code Status on File) Date Activated Date Inactivated Comments 04/16/2016 1:58 AM 04/22/2016 3:55 PM Care Teams Waste Water Or Water Plant Operator Relationship Specialty Start Date End Date Nivia Bruno MD [facility] - General 03/22/21
--- OUTSIDE RECORDS SUMMARY | 2023-11-11 19:30 | XMS_ITS | Encounter Summary ---
Author [facility] Address [address] [address] Care Team Providers Care Director Of Strategic Programs Name Role Phone Needs Pcp, Assignment Primary Care Provider [phone] Reason for Visit * Auth/Cert Specialty Diagnoses / Procedures Referred By Contac t Referred To Contact Diagnoses Diarrhea of presumed infectious origin Fibromyalgia Diarrhea of presumed infectious origin Fibromyalgia Diarrhea of presumed infectious origin Fibromyalgia Referral ID Status Reason Start Date Expiration Date Visits Re quested Visits Authorized [id number] 1 1 Encounter Details Date Type Department Care Team (Latest Contact Info) Description 07/15/2019 Lab Requisition [facility] [address] [place] [address] Lul Hunter MD [address] [place], [place] [id number] Enterocolitis due to Clostridium difficile, not specified [...] C.DIFFICILE TOXIN,MOLECULAR DETECTION Routine 07/15/2019 10:00 PM DOUBLER HELPER Enterocolitis due to Clostridium difficile, not specified as recurrent documented in this encounter Results * (ABNORMAL) C.Difficile Toxin,Molecular Detection, (07/15/2019 10:00 PM DOUBLER HELPER) C.difficile by PCR Detected( A) Not Detected 07/15/2019 11:30 PM DOUBLER HELPER [facility] Stool Non-blood Collection / Unknown 07/15/2019 10:00 PM DOUBLER HELPER 07/15/2019 10:24 PM DOUBLER HELPER Narrative [facility] - 07/15/2019 11:30 PM DOUBLER HELPER Methodology: Qualitative real-time PCR assay to detect the Clostridium difficile toxin B gene. Lul Hunter MD LAB_1 [facility] [address] [place], [place] [id number] [place] [address] documented in this encounter Visit Diagnoses Diagnosis Enterocolitis due to Clostridium difficile, not specified as recurrent documented in this encounter Care Teams Director Of Strategic Programs Relationship Specialty Start Date End Date Needs Pcp, [place] [address] PCP - General 02/28/21 documented as of this encounter
--- OUTSIDE RECORDS SUMMARY | 2023-11-11 19:30 | XMS_ITS | Encounter Summary ---
Author Organization [facility] Address [address] [place] [address] Care Team Providers Care Prism Inspector Name Role Phone Needs Pcp, Assignment Primary Care Provider [phone] Encounter Details Date Type Department Care Team (Latest Contact Info) Description 10/08/2023 Orders Only HIM DEPARTMENT Provider, [place] [address] Social History Tobacco Use Types Packs/Day Years [...] on filedocumented in this encounter Care Teams Prism Inspector Relationship Specialty Start Date End Date Needs Pcp, [place] [address] PCP - General 02/28/21 documented as of this encounter
[2023-11-11] MEDS: ONDANSETRON 2 MG/ML inj 4 MG IVP (19:34)
[2023-11-11] MEDS: KETOROLAC 15 MG/ML inj IVP (19:34)
[2023-11-11] MEDS: 0.9 % SODIUM CHLORIDE 1000 ml 1,000 ML IV (19:34)
[2023-11-11 19:54] LABS: Basophils Absolute Auto 0.03 K/uL (0.00-0.30); Basophils Percent Auto 0.6 % (0.0-3.0); Eosinophils Absolute Auto 0.16 K/uL (0.00-0.50); Eosinophils Percent Auto 3.5 % (0.0-7.0); Hematocrit 38.4 % (33.0-51.0); Hemoglobin* 12.9 gm/dL (12.0-16.0); Lymphocytes Absolute Auto 1.21 K/uL (0.90-2.90); Lymphocytes Percent Auto 26.2 % (20-44); Mean Corpuscular HGB Conc 34 gm/dL (32-36); Mean Corpuscular Hemoglobin 31 pg (26-34); Mean Corpuscular Volume 92 fL (80-100); Monocytes Percent Auto 7.1 % (0.0-11.0); Neutrophils Absolute Auto 2.89 K/uL (1.7-7.0); Neutrophils Percent Auto 62.6 % (42.0-72.0); Platelet Count* 210 K/uL (140-440); RDW Coefficient of Variation % 11.2 % (11.5-15.5); Red Blood Count 4.17 m/uL (4.00-5.20); White Blood Count* 4.62 K/uL (4.50-11.00)
[2023-11-11 20:08] LABS: Slide Review Reflex No
[2023-11-11 20:14] LABS: Chloride* 106 mmol/L (96-114); Sodium* 135 mmol/L (135-149)
[2023-11-11 20:15] LABS: Potassium* 3.9 mmol/L (3.6-5.1)
[2023-11-11 20:17] LABS: Creatinine* 0.8 mg/dL (0.5-1.5); Estimated Glomerular Filt Rate 82 ml/min
[2023-11-11 20:18] LABS: Anion Gap 9 mEq/L (7-15); Blood Urea Nitrogen* 20 mg/dL (7-30); Calcium* 8.8 mg/dL (8.4-10.6); Carbon Dioxide* 20 mmol/L (20-32); Glucose* 106 mg/dL (60-115)
[2023-11-11 20:21] LABS: C Reactive Protein* 0.5 mg/dL (0.5-1.0)
[2023-11-11] MEDS: LOPERAMIDE HCL 2 MG CAPSULE 4 MG PO (20:43)
== END 2023-11-11 20:50 | disposition home or self-care (01) ==
PROVIDERS: Emergency Provider Emergency Medicine Emergency Medical Services; PCP Family Medicine
DX: K52.9 Noninfective gastroenteritis and colitis, unspecified (principal)
CPT/HCPCS: 36415; 80048; 85025; 86140; 96374; 96375; 99284; A9270; J1885; J2405; J7030

== ENCOUNTER 2023-11-28 13:00 | Outpatient (RCR) | payer MEDICARE, BC, SELFPAY | END 2024-03-27 23:59 | disposition home or self-care (01) | PROVIDERS: PCP Family Medicine; Visit Provider Physician Assistant | DX: R39.15 Urgency of urination (principal); R10.2 Pelvic and perineal pain; R27.8 Other lack of coordination; Z51.89 Encounter for other specified aftercare | CPT/HCPCS: 97140; 97163; 97535 ==

== ENCOUNTER 2023-12-04 08:32 | Outpatient (CLI) | payer MEDICARE, BC, SELFPAY ==
--- NOTE | 2023-12-04 08:30 | CRLHL7_ITS ---
For Patients: As a result of the Century Cures Act, medical imaging exams and procedure reports are released immediately into your electronic medical record. You may view this report before your referring provider. If you have questions, please contact your health care provider. Indication: Trauma, right total hip arthroplasty Technique: Three-phase nuclear medicine bone scan of the hips per protocol after the intravenous administration of 25.7 millicuries technetium 99 M MDP Comparison: Right femoral radiographs October 15, 2023 Findings: Flow: Prompt and symmetric bilaterally. Blood pool: No abnormal focal uptake. Delayed: Minimal increased cortical uptake throughout the visualized right femur. Degenerative type uptake within the left hip. Relative photopenia within bilateral knees/bilateral knee arthroplasties with increased uptake within the right patella. Impression: Negative three-phase bone scan to the right hip. Dictated by Power Aleman MD @ 12/09/2023 4:03:11 PM (Electronically Signed)
--- OUTSIDE RECORDS SUMMARY | 2023-12-04 08:35 | XMS_ITS | Continuity of Care Document ---
Author Organization [facility] Address [address] [place] [address] Phone Care Team Providers Care Head Chopper Name Role Phone Sanchez Lay MD Unavailable Unavailable Advance Directives Directive Yes / No Effective Date File Name No Information Encounters Encounter Description Practice Location Reason(s) For Visit Diagnoses Date Provider Providers Copied on Encounter [facility], [address], [place], [address], [place] tel:[phone] [facility], No Information Rosanne Bradford. [facility] [address], [place], [address], [place]. tel:[phone] Family History Family Member Type Diagnosis Age [...]
--- OUTSIDE RECORDS SUMMARY | 2023-12-04 08:35 | XMS_ITS | Continuity of Care Document ---
Author Organization [facility] rosa maria Address [address] [facility] [place] [address] Phone Care Team Providers Care Food Mobile Driver Name Role Phone Will MD LARSON, Leif [...] Diagnoses Date Provider Providers Copied on Encounter [facility], [address] [place] [address] Keyona [place], [id number] , [place] tel:[phone] [facility] No Information 2 Will Leif. [address] [facility] [place], [id number] , [place]. tel:[phone] [facility], [address] [facility] [place]ona [place], [id number] , [place] tel:[phone] [facility] [place] No Information 1 Nolan Gilberto. [facility], [address], [place], [address], [place]. [phone] OFFICE/OUTPA TIENT VISIT, [facility], [address] [facility] [place]ona [place], [id number] , [place] tel:[phone] [facility] Leg Pain (chief complaint) Encounter for therapeutic drug level monitoringLong term (current) use of opiate analgesicLow back pain, unspecifiedPain in left shoulderEncounter for screening for other disorderCausalgia of right lower limb 1 Nolan Gilberto. [employer], [address], [place], [address], [place]. [phone] Referring Provider: Leif Walsh, [address] [facility] [place], [address] . tel:[phone] OFFICE/OUTPA TIENT VISIT, [facility], [address] [place] [address] Keyona [place], [id number] , [place] [phone] [facility] back and hip pain (chief complaint) LumbagoCervicalgia [address]. [address] [facility] [place], [id number] , [place]. [phone] Referring Provider: Leif Walsh, [address] [facility] [place], [address] . tel:[phone] Family History Family Member Type Diagnosis Age At Onset Father Problem (finding) back issues Payers Payer name Insurance type Covered democrat ID Authorlisa hampton(s) Medicare MB [id number] Social History Type Description Quantity Date Captured [...] Goal Height. Due on d ue Goal MANAGER FUNCTIONAL Paperwork. Due on due Goal Order Annual PT. Due on due Goal PLACEMENT OFFICER Scanned. Due on due Goal Creatinine. Due on 15 due Goal AST (SGOT). Due on due Goal Weight. Due on d ue Goal Tobacco Use. Due on due Goal AST (SGOT). Due on 15 due Goal Creatinine. Due on due Goal PLACEMENT OFFICER Scanned. Due on due Goal Order Annual PT. Due on due Goal MANAGER FUNCTIONAL Paperwork. Due on due Goal ALT (SGPT). Due on 15 due Goal UDT. Due on due Goal OARS. Due on due Goal AST (SGOT). Due on due Goal OARS. Due on due Goal Creatinine. Due on due Goal MANAGER FUNCTIONAL Paperwork. Due on due Goal PLACEMENT OFFICER Scanned. Due on due Goal ALT (SGPT). [...] pain referred by Dr. Tobias Martin through [facility]. This pain began after falling on ice and fracturing her R femur in 2017. [facility] did her initial trauma surgery at the time. Dr. Martin then completed bone grafting on her right femur recently and believes that her new femur hardware may be irritating her R hip hardware from a hip replacement in 1995. Denies any leg numbness or tingling and endorses swelling in her R thigh. She is following up at [facility] when she is able to schedule. Pain is described as aching and stiff. Pain averages 7/10.In addition, she c/o neck and lower back pain that she believes is linked to a difference in leg lengths. Denies any lower back surgeries. Further carries a correction dx of fibromyalgia. She has tried PT [...] RX on 05/08/[address] Mijares at [facility]. She takes 1-2 Dilaudid per month.Mrs. Brown is interested in pain management and medical cannabis certification through [facility]. No other concerns today. Leg Pain Duration: [...]
--- OUTSIDE RECORDS SUMMARY | 2023-12-04 08:37 | XMS_ITS | Encounter Summary ---
Author Organization [facility] Address [address] [place] [address] Care Team Providers Care Photonics Technician Name Role Phone Needs Pcp, Assignment Primary Care Provider [phone] Encounter Details Date Type Department Care Team (Latest Contact Info) Description 10/08/2023 Orders Only HIM DEPARTMENT Provider, [place] [address] Social History Tobacco Use Types Packs/Day Years [...] on filedocumented in this encounter Care Teams Photonics Technician Relationship Specialty Start Date End Date Needs Pcp, [place] [address] PCP - General 02/28/21 documented as of this encounter
--- OUTSIDE RECORDS SUMMARY | 2023-12-04 08:37 | XMS_ITS | Clinical Summary ---
Author Organization [employer] [facility] [employer] Address [place], [place] [address] Care Team Providers Care Fluid Jet Cutter Operator Name Role Phone Nivia Bruno MD Primary Care Provider Judie Carreno PharmD Unavailable Allergies Active Allergy Reactions Criticality Noted Date [...] mouth every 4 hours if needed. 0 0 Active LORazepam (ATIVAN) 0.5 mg tabIndications:KATY (generalized anxiety disorder) Take 1 Tablet (0.5 mg) by mouth 2 times daily if needed for Anxiety. 90 day supply provided, will not fill early. 180 Tablet 1 3 Active Additional Information Patient taking differently:0.5 mg Oral BID PRN, Anxiety, 90 day supply provided, will not fill early.Pt stated tapering off of medication, Reported on 10/24/2023 valACYclovir (VALTREX) 1 gram tabletIndications:G enital herpes simplex, unspecified site Take 1 Tablet (1 g) by mouth three times daily. Tid X 7 Days 21 Tablet 3 Active hydrocortisone 2.5% creamIndications:He morrhoids, external Apply topically to affected area(s) two times daily. 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 Max acetaminophen dose: 4000mg in 24 hrs. 270 Tablet 3 4 Active Additional Information Patient taking differently:650 mg Oral Q 8H,Max acetaminophen dose: 4000mg in 24 hrs. 1 in morning and 1 at night, Reported on 06/25/2023 naloxone (Narcan) 4 mg/actuation nasal sprayIndications:At risk for injury due to substance overdose Inhale 1 Weldon into affected nostril(s) each time if needed for Patient Diff To Arouse or Resp Rate < 8 / min. Additional doses may be given every 2 to 3 minutes until emergency medical assistance arrives. 2 Each 4 Active tobramycin-dexAMETH asone (TOBRADEX) 0.3%-0.1% opthalmic suspensionIndicatio ns:Myokymia Place 1 Drop into both eyes four times daily. 4 Active estradioL (VAGIFEM) 10 mcg tab vaginal tabletIndications:V aginal candidiasis Insert 1 Tablet (10 mcg) into the vagina every Friday and . 4 Active Shower ChairIndications:Ch ronic polyarticular juvenile rheumatoid arthritis (HC) For home use. 1 Each 4 Active rosuvastatin (CRESTOR) 10 mg tabletIndications:H yperlipidemia, unspecified hyperlipidemia type Take 1 Tablet (10 mg) by mouth at bedtime. 90 Tablet 3 4 Active cyclobenzaprine (FLEXERIL) 5 mg tablet Take 5 mg by mouth at bedtime if needed for Muscle Spasm. 4 Active clobetasol 0.05% (TEMOVATE 0.05% OINTMENT) 0.05 % ointmentIndications :Lichen sclerosus APPLY TOPICALLY TO AFFECTED AREA(S)TWO TIMES DAILY NEEDED TO LICHEN SCLEROSUS IN VAGINAL AREA. 60 g 4 Active busPIRone (BUSPAR) 15 mg tabletIndications:G AD (generalized anxiety disorder) Take 1 Tablet (15 mg) by mouth two times daily. 180 Tablet 1 4 Active meloxicam 15 mg tabletIndications:O steoarthritis, unspecified osteoarthritis type, unspecified site Take 1 Tablet (15 mg) by mouth once daily. 30 Tablet 4 Active liothyronine (CYTOMEL) 5 mcg tabletIndications:H ypothyroidism, unspecified type Take 1 tablet (5 mcg) by mouth two times daily. 180 Tablet 1 4 Active progesterone micronized (PROMETRIUM) 100 mg capsuleIndications: Postmenopausal,Horm one replacement therapy Take 1 Capsule (100 mg) by mouth at bedtime. 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 30 Tablet 4 Active triamcinolone 0.1% (KENALOG IN ORABASE) 0.1 % pasteIndications:So re of lip Apply small amount to the upper lip once a day before bed for the next few weeks. 5 g 4 Active traZODone (DESYREL) 50 mg tabletIndications:P rimary insomnia TAKE 1 TO 2 TABLETS (50-100 MG) BY MOUTH AT BEDTIME NEEDED FOR SLEEP 180 Tablet 4 Active medication order composerIndications :Fibromyalgia [facility] Calcium Citrate, 250 mg 1x/day [...] Apple Cider Vinegar - PRN NN Ultimate Naples-3 - daily Body Bio Balance Oil (omega-3/omega-6 blend) - 2 capsules daily Body Bio PC - daily BodyBio Tudca - daily 4 Active HYDROmorphone (DILAUDID) 2 mg tabletIndications:B mc trauma of right thigh, subsequent encounter Take 0.5 Tablets (1 mg) by mouth every 6 hours if needed for Pain. 12 Tablet 4 Active lidocaine 5 % topical patchIndications:Kylie mbar radiculopathy Apply on dry, clean, hairless skin. Apply 1 patch to painful area of skin for up to to 12 hours within 24 hour period. 30 Patch 1 4 Active lidocaine 5 % topical patchIndications:Kylie mbar radiculopathy Apply on dry, clean, hairless skin. Apply 1 patch to painful area of skin for up to to 12 hours within 24 hour period. 30 Patch 1 3 11/19/19 24 Discontinu ed(Reorder (E-cancel not sent)) HYDROmorphone (DILAUDID) 2 mg tabletIndications:B mc trauma of right thigh, initial encounter Take 0.5 Tablets (1 mg) by mouth every 6 hours if needed for Pain. 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 Take for 7 days, then increase to 20 mg tablet. 7 Tablet 4 11/10/19 24 Discontinu ed(*Patien t states no longer taking) Active Problems Problem [...] Encounters Date Type Department Care Team Description 12/02/2023 1:00 PM CDT Phone Office Visit [facility] [address] [place] [address] Keiko Downs, [facility] Individual Therapy; Phone Visit 12/02/2023 Travel 12/01/2023 Telephone [facility] [address] [place] [address] Facundo Mijares MD FYI 11/28/2023 2:00 PM CDT Procedure Only [facility] [address] [place] [address] Tyler Parson L Ac Acupuncture 11/27/2023 11:05 AM CDT Office Visit [facility] [address] [place] [address] Kourtney Cherry PA UTI (Or Yeast Infection) 11/27/2023 Telephone [facility] [address] [place] [address] Facundo Mijares MD Questions 11/27/2023 Travel 11/25/2023 11:30 AM CDT Phone Office Visit [facility] [address] [address] Keiko Downs EXECUTIVE BUSINESS COACH Individual Therapy; Phone Visit 11/25/2023 Travel 11/24/2023 Telephone [facility] [address] [place] [address] Facundo Mijares MD Prior Authorization (lidocaine 5 % topical patch (APPROVED 11/24/2023- Until Further Notice)) 11/19/2023 4:00 PM CDT Office Visit [facility] [address] [place] [address] Facundo Mijares MD Musculoskeletal Problem (Follow Up Right Leg Pain ) 11/19/2023 2:00 PM CDT Pharmacist Medication Management [address] [place] [address] Judie Carreno, AugustaD Pharmacist Medication Management ([facility] follow-up - [facility] patient - pain/depression treatment) 11/19/2023 Travel 11/18/2023 1:00 PM CDT Phone Office Visit [facility] [address] [place] [phone] Keiko Downs EXECUTIVE BUSINESS COACH Individual Therapy; Phone Visit 11/18/[address] [address] Facundo Mijares MD Appointment Request 11/17/2023 1:45 PM CDT Phone Office Visit [address] [address] Freda Serrano MD Phone Visit; Medication Management (Not doing very well today, Has MONTALVO, ) 11/17/2023 Travel 11/11/2023 1:00 PM CDT Phone Office Visit [address] [address] Keiko Downs [facility] Individual Therapy; Phone Visit 11/10/2023 11:00 AM CDT Office Visit [facility] [address] [place] [address] Jyoti Sellers PA Follow Up (UTI, new plan) 11/10/2023 Travel 11/07/2023 1:00 PM CDT Procedure Only [facility] [address] [place] [address] Tyler Parson L Ac Acupuncture 11/07/2023 Travel 11/05/2023 Lab Requisition [facility] [phone] Corine Guillaume MD 11/04/2023 1:00 PM CDT Phone Office Visit [facility] [address] [place] [address] Keiko Downs [facility] Individual Therapy; Phone Visit 11/04/2023 11:15 AM CDT Phone Office Visit [facility] [address] [place] [address] Freda Serrano MD Phone Visit; Follow Up 11/04/2023 Travel 10/31/2023 2:30 PM CDT Procedure Only [facility] [address] [place] [address] Tyler Parson L Ac Acupuncture 10/31/2023 Travel 10/30/2023 10:40 AM CDT Office Visit [facility] [address] [place] [phone] Tomas Mckeon MD Consult (Sore on inside on mouth. upper lips. Nasal congestion. Deviated septum) 10/29/2023 3:30 PM CDT Pharmacist Medication Management [facility] [address] [place] [address] Judie Carreno PharmD Pharmacist Medication Management ([facility] follow-up - [facility] patient - pain/MH) 10/29/2023 Travel 10/28/2023 11:30 AM CDT Phone Office Visit [facility] [address] [place] [address] Keiko Downs [facility] Individual Therapy; Phone Visit 10/28/2023 Travel 10/24/2023 11:15 AM CDT Phone Office Visit [facility] [address] [place] [address] Freda Serrano MD Follow Up; Phone Visit 10/24/2023 Travel 10/22/2023 11:05 AM CDT Office Visit [facility] [address] [place] [address] Kourtney Cherry PA Mouth/Lip Problem 10/22/2023 10:00 AM CDT Phone Office [place] [address] Jyoti Sellers PA Phone Visit; Follow Up (Labs, medication ) 10/22/2023 Travel 10/22/2023 Telephone [facility] [address] [place] [address] Jyoti Sellers PA Appointment (Cancellation note per patient) 10/21/2023 11:30 AM CDT Phone Office [place] [address] Keiko Downs [facility] Individual Therapy; Phone Visit 10/21/2023 Travel 10/17/2023 2:30 PM CDT Procedure Only [facility] [address] [place] [address] Tyler Parson L Ac Acupuncture 10/17/2023 10:30 AM CDT Pharmacist Medication Management [address] [address] Judie Carreno PharmD Pharmacist Medication Management ([facility] follow-up - [facility] patient - phone visit) 10/17/2023 Patient Outreach [facility] [address] [place] [address] Aubree Nuñez, RN Primary RN Care Management (FCM referral ) 10/16/[address] [address] Judie Carreno, AugustaD Medication Management 10/16/2023 Travel 10/16/2023 Refill [facility] [address] [place] [address] Freda Serrano MD Refill Request (Escitalopram Oxalate) 10/15/2023 1:45 PM CDT Ancillary Procedure [facility] [address] [place] [address] 10/15/2023 1:00 PM CDT Office Visit [facility] [address] [place] [address] Facundo Mijares MD Follow Up (Fell a week ago-pain right shoulder and right leg pain) 10/14/2023 1:00 PM CDT Phone Office Visit [facility] [address] [place] [address] Keiko Downs, [facility] Individual Therapy; Phone Visit 10/14/2023 Travel 10/13/2023 Telephone [facility] [address] [place] [address] Facundo Mijares MD Error-please disregard (as soon as possible); Appointment Request 10/10/2023 2:00 PM CDT Procedure Only [facility] [address] [place] [address] Tyler Parson L Ac Acupuncture 10/10/2023 Travel 10/09/2023 Refill [facility] [address] [place] [address] Nivia Bruno MD Refill Request 10/09/2023 Patient Outreach [facility] Care Management - Care Management Navigation/[facility] [address] [place], [place] [phone] Kulwant Palmer Care Management Intake (Engagement Outreach/) 10/08/2023 Patient Outreach [address] [place] [address] Judie Carreno PharmD Pharmacist Medication Management (Medication refills) 10/07/2023 2:30 PM CDT Patient Outreach [facility] Care Management - Advanced Care Team [address] [place] [address] Lisa Thakur, environmental health officer Management (Transition) 10/07/2023 1:00 PM CDT Phone Office Visit [facility] [address] [place] [address] Keiko Downs, [facility] Individual Therapy; Phone Visit 10/07/2023 Travel 10/03/2023 3:32 PM CDT - 10/03/2023 11:59 PM CDT Hospital Encounter [facility] [address] [place] [address] Nivia Bruno MD Pain in left lower leg 10/03/2023 2:00 PM CDT Procedure Only [facility] [address] [place] [address] Tyler Parson L Ac 10/03/2023 11:15 AM CDT Office Visit [facility] [address] [place] [address] Nivia Bruno MD Ankle Injury (hurt ankle - wondering about the veins/worried about DVT); Derm Problem (itchy under breasts/) 10/03/2023 Telephone [facility] [address] [place] [address] Nivia Bruno MD Results (no DVT in leg) 10/03/2023 Travel 10/01/2023 Telephone [facility] [address] [place] [address] Freda Serrano MD DONNY 10/01/2023 Telephone [facility] [address] [place] [address] Nivia Bruno MD Appointment (PROLIA SHOT ) 09/30/2023 11:30 AM CDT Phone Office Visit [facility] [address] [facility] [phone] Keiko Downs LICSW Individual Therapy; Phone Visit 09/30/2023 Nurse Triage [facility] [address] [facility] [address] Nivia Bruno MD Results (DEXA) 09/30/2023 Telephone [facility] [address] [place] [address] Nivia Bruno MD Imaging (RESULTS) 09/30/2023 Travel 09/26/2023 11:30 AM CDT Pharmacist Medication Management [facility] [address] [place] [address] Judie Carreno PharmD Pharmacist Medication Management ([facility] follow-up - [facility] patient - pain) 09/26/2023 9:00 AM CDT Office Visit [facility] [address] [place] [address] Facundo Mijares MD Consult (Left ankle pain started 09/13/2023 after doing pool heel raises/) 09/26/2023 Travel 09/25/2023 2:00 PM CDT Procedure Only [facility] [address] [place] [address] Tyler Parson L Ac Acupuncture 09/24/2023 2:00 PM CDT Ancillary Procedure [facility] [address] [place] [address] 09/24/2023 Patient Outreach [facility] Care Management - Advanced Care Team [address] [place], [place] [id number] Dana Benitez Medication Management (R/S NO SHOW CMR) 09/24/2023 Travel 09/23/2023 1:00 PM CDT Phone Office Visit [facility] [address] [facility] [address] Keiko Downs LICSW Individual Therapy; Phone Visit 09/23/2023 Travel 09/19/2023 2:00 PM CDT Procedure Only [facility] [address] [place] [address] Tyler Parson L Ac Acupuncture 09/19/2023 Travel 09/18/2023 1:00 PM CDT Patient Outreach [facility] Care Management - Advanced Care Team [address] [place] [address] Lisa Thakur, environmental health officer Management (Follow up Outreach/JUDITH) 09/16/2023 3:40 PM CDT Office Visit [facility] [address] [facility] [address] [place] [address] Norberto Pretty MD Follow Up (Follow up after MRI ) 09/16/2023 1:00 PM CDT Phone Office Visit [facility] [address] [place] [address] Keiko Downs, [facility] Individual Therapy; Phone Visit 09/15/2023 12:45 PM CDT Phone Office Visit [facility] [address] [place] [address] Freda Serrano MD Medication Management (Things are going okay, always cold wants to discuss); Phone Visit 09/15/2023 Telephone [facility] [address] [place] [address] Nivia Bruno MD Concerns 09/15/2023 Telephone [facility] [address] [place] [address] Facundo Mijares MD Questions 09/15/2023 Travel 09/15/2023 Telephone [facility] [address] [place] [address] Freda Serrano MD Appointment 09/14/2023 Orders Only [facility] Scanner 1 scan: (1-Ord) ZENIA AVILA , 09/14/2023 09/12/2023 2:00 PM CDT Procedure Only [facility] [address] [place] [address] Tyler Parson L Ac Acupuncture 09/12/2023 Travel 09/09/2023 1:00 PM CDT Phone Office Visit [facility] [address] [place] [address] Keiko Downs, [facility] Individual Therapy; Phone Visit 09/09/2023 Travel 09/05/2023 1:30 PM CDT Procedure Only [facility] [address] [place] [address] Tyler Parson L Ac Acupuncture 09/05/2023 Travel 09/04/2023 Patient Outreach [facility] Care Management - Advanced Care Team [address] [place] [address] Lisa Thakur, environmental health officer Management (Care Coordination) from Last 3 Months Immunizations Name Administration [...] Answer Date Recorded PHQ-2 TOTAL SCORE 4 11/17/2023 Social Connections Answer Date Recorded Frequency of [...] Sign Reading Time Taken Comments Blood Pressure 107/74 11/27/2023 11:21 AM CDT Pulse 89 11/27/2023 11:21 AM CDT Temperature 36.7 ??C (98.1 ??F) 11/27/2023 11:22 AM C DT Respiratory Rate 16 04/01/2022 3:21 PM LOSS CONTROL REPRESENTATIVE Oxygen Saturation 97% 11/27/2023 11:21 AM CDT Inhaled Oxygen Concentration - - Weight 74.6 kg (164 lb 8 oz) 11/19/2023 4:05 PM CDT Height 174 cm (5' 8.5) 04/14/2023 2:10 PM LOSS CONTROL REPRESENTATIVE Body Mass Index 24.65 04/14/2023 2:10 PM LOSS CONTROL REPRESENTATIVE Plan of Treatment Upcoming Encounters Date Type Department Care Team (Late st Contact Info) Description 12/05/2023 1:00 PM CDT Procedure Only [facility] [address] [place] [address] Tyler Parson L Ac [address] [place] [address] 12/09/2023 1:00 PM CDT Phone Office Visit [facility] [address] [place] [address] Keiko Downs EXECUTIVE BUSINESS COACH [address] [place] [address] 12/12/2023 11:15 AM CDT Phone Office Visit [facility] [address] [place] [address] Freda Serrano MD [address] [place] [address] 12/12/2023 2:00 PM CDT Procedure Only [facility] [address] [place] [address] Tyler Parson L Ac [address] [place] [address] 12/17/2023 9:00 AM CDT Procedure Only [facility] [address] [place] [address] Facundo Mijares MD [address] [place] [address] 12/17/2023 2:30 PM CDT Pharmacist Medication Management [facility] [address] [place] [address] Judie Carreno, PharmD [address] [facility] [place]ae [address] 12/18/2023 2:00 PM CDT Procedure Only [facility] [address] [place] [address] Tyler Parson L Ac [address] [place] [address] 12/26/2023 2:00 PM CDT Procedure Only [facility] [address] [place] [address] Tyler Parson L Ac [address] [place] [address] 01/02/2024 2:00 PM CDT Procedure Only [facility] [address] [place] [address] Tyler Parson L Ac [address] [place] [address] 01/09/2024 1:00 PM CDT Procedure Only [address] [address] Tyler Parson L Ac [address] [place] [address] Health Maintenance Due Date Last Done Comments Influenza for age 50-64 01/11/2024 03/16/20, 03/27/2021, 02/24/2020, Additional history exists BMI (ht and wt on same day) for age 18+ 04/14/2024 04/14/2023, 06/06/2022, 03/26/2022, Additional history exists Mammogram for age 45-75 07/31/2024 08/01/19 24, 05/13/2022, 05/10/2021, Additional history exists Depression screening for age 12+ 11/18/2024 11/19/2023, 11/19/2023, 11/19/2023, Additional history exists Tetanus booster 05/31/2026 05/31/2016, 09/30/2005 Pap test for age 21-65 11/03/2026 , 11/04/2023, 10/04/2022, Additional history exists Lipids for age [...] Diagnosis Comments ACUPUNCTURE PLAN OF CARE Routine 11/28/2023 3:20 PM CDT Other low back pain TRICHOMONAS, CARMELO, AND BACTERIAL VAGINOSIS BY JUAN Routine 11/27/2023 11:30 AM CDT Vaginal irritation UA W/ SEDIMENT EXAM REFLEXED PER CRITERIA Routine 11/27/2023 11:15 AM CDT Vaginal irritation ACUPUNCTURE PLAN OF CARE Routine 11/07/2023 1:27 PM CDT Other low back pain ACUPUNCTURE PLAN OF CARE Routine 11/06/2023 4:24 PM CDT Other low back pain LAB TRACKING EVENT Routine 11/04/2023 3: 50 PM CDT GENERAL PRODUCTION WORKER THIN PREP PAP SCREEN IMAGED Routine 11/04/2023 3:50 PM CDT HPV THIN PREP Routine 11/04/2023 3:50 PM CDT ACUPUNCTURE PLAN OF CARE Routine 10/17/2023 3:18 PM CDT Other low back pain XR FEMUR 2 VIEWS RIGHT Routine 10/15/2023 2:15 PM CDT Blunt trauma of right [...] 12:34 PM CDT Other low back pain XR MAMMO EVA BILAT SCREEN Routine 08/01/2023 3:29 PM CDT Visit for screening mammogram LIPID PANEL W REFLEX MEASURED LDL Routine 07/08/2023 12:07 PM LOSS CONTROL REPRESENTATIVE Hyperlipidemia, unspecified hyperlipidemia type SCAN-COLONOSCOPY 01/28/2022 1:00 PM CDT ANTI HIV 1/2 Routine 06/01/2018 4:02 PM LOSS CONTROL REPRESENTATIVE Exposure to STD ANTI HCV Routine 09/30/2017 5:38 PM CDT STD exposure from Last 3 Months or Most Recently Relevant to Health Maintenance Results * TRICHOMONAS, CARMELO, AND BACTERIAL VAGINOSIS BY JUAN (11/27/2023 11:30 AM CDT) CARMELO SPECIES Negative Negative 3:30 AM CDT [facility] TRAL [facility]ORAT[facility] CARMELO GLABRATA Negative Negative 11/28/2023 3:30 AM CDT [facility] TRA LABORATORY TRICHOMONAS VVA Negative Negative 4 3:30 AM CDT [facility] BACTERIAL VAGINOSIS Negative Negative 11/28/2023 3:30 AM CDT [facility] Other VAGINAL SWAB / Unknown Non-Blood / Unknown 11/27/2023 11:30 AM CDT 11/27/2023 1:35 PM CDT [facility] [address] [place] [address], * (ABNORMAL) UA W/ SEDIMENT EXAM REFLEXED PER CRITERIA (11/27/2023 11:15 AM CDT) COLOR Yellow Yellow Color 11/27/2023 11:23 AM CDT [facility] CLARITY Clear Clear Clarity 11/27/2023 11:23 AM CDT [facility] SPECIFIC GRAVITY,URINE 1.015 1.010, 1.015, 1.020, 1.025 11/27/2023 11:23 AM CDT [facility] PH,URINE 5.0(A) 6.0, 7.0, 8.0, 5.5, 6.5, 7.5, 8.5 11/27/2023 11:23 AM CDT [facility] UROBILINOGEN, QUALITATIVE Normal Normal EU/dl 11/27/2023 11:23 AM CDT [facility] PROTEIN, URINE Negative Negative mg/dL 11/27/2023 11:23 AM CDT [facility] GLUCOSE, URINE Negative Negative mg/dL 11/27/2023 11:23 AM CDT [facility] KETONES,URINE Negative Negative mg/dL 11/27/2023 11:23 AM CDT [facility] BILIRUBIN,URI NE Negative Negative 11/27/2023 11:23 AM CDT [facility] OCCULT BLOOD,URINE Negative Negative 11/27/2023 11:23 AM CDT [facility] NITRITE Negative Negative 11/27/2023 11:23 AM CDT [facility] LEUKOCYTE ESTERASE Negative Negative 11/27/2023 11:23 AM CDT [facility] Urine URINE SPECIMEN / Unknown Non-Blood / Unknown 11/27/2023 11:15 AM CDT 11/27/2023 11:20 AM CDT Kourtney GUERRERO URINE Performing Organization Address [facility]/ZIP Co de Phone Number [facility] [address] [place] [address], * LAB TRACKING EVENT (11/04/2023 3:50 PM CDT) Other (Other) Client Collect / Unknown 11/04/2023 3:50 PM CDT 11/05/2023 4:31 PM CDT Corine Guillaume MD LAB BILL ONLY Performing Organization Address City/[facility]/ZIP Co de Phone Number [facility] [address] [place] [address], * GENERAL PRODUCTION WORKER THIN PREP PAP SCREEN IMAGED (11/04/2023 3:50 PM CDT) Case Report Gynecologic Cytology Report ? Case: [id number] ? Authorizing Provider: ??Corine Guillaume MD ?Collected: ? 11/04/2023 1550 ? Ordering Location: ? [facility] ?Received: ?11/06/2023 0926 ? First Screen: ?Kathy Stephens ? Specimen: ?GENERAL PRODUCTION WORKER ThinPrep Vial Screening, Cervical ? 11/12/2023 1:05 PM CDT [facility] [employer] [facility] ENTRAL LABORATORY INTERPRETATION/ RESULT NEGATIVE FOR INTRAEPITHELIAL LESION OR MALIGNANCY (NIL) (none) 11/12/2023 1:05 PM CDT [facility] ENTRMA LABORATORY IMEN ADEQUACY Satisfactory for evaluation Endocervical component present 11/12/2023 1:05 PM CDT [facility] ENTRAL LABORATORY HPV REQUEST HPV and PAP 11/12/2023 1:05 PM CDT [facility] ENTRAL [facility] Last Pap Date 11/12/2023 1:05 PM CDT [facility] Comment:09/2017 Last Pap Result NIL 1:05 PM CDT [facility] EN[facility] Abnormal Pap or [place] Bx in last 5 years No 11/12/2023 1:05 PM CDT [facility] ENTRAL LABORATORY Menstrual Status Postmenopausal 11/12/2023 1:05 PM CDT [facility] ENTRAL LABORATORY [place] Bx Done Today No 11/12/2023 1:05 PM CDT [facility] Additional Information 11/12/2023 1:05 PM CDT [facility] Comment: Interpreted at [facility] - [address] [facility] [address], [place] [address] Automated Review Successful 11/12/2023 1:05 PM CDT [facility] Comment:Specimen processed s uccessfully by automated java application developer device, ThinPrep Imaging System, [employer] ANCILLARY TESTING GENERAL PRODUCTION WORKER HPV Ordered, Please see separate report 11/12/2023 1:05 PM CDT [facility] Note The pap test is a screening technique, not a diagnostic procedure. It is used primarily to screen for squamous cancers and precursor lesions. Published studies have shown that it is subject to both false negative and false positive results. The pap test should not be used as the sole means to diagnose or exclude pre-malignant and malignant lesions. 11/12/2023 1:05 PM CDT [facility] Other (Cervical) 11/04/2023 3:50 PM CDT 11/06/2023 9:26 AM CDT Corine Guillaume MD PATHOLOGY/CYTOLOGY [facility] [address] [place] [address], * HPV HIGH RISK (11/04/2023 3:50 PM CDT) TYPE 16 Negative Negative 11/07/2023 4:00 PM CDT [facility] TRAL LABORATORY TYPE 18 Negative Negative 11/07/2023 4:00 PM CDT [facility] TRAL LABORATORY OTHER HIGH RISK TYPES Negative Negative 11/07/2023 4:00 PM CDT [facility] Other (Cervical) 11/04/2023 3:50 PM CDT 11/06/2023 9:[address] [facility] - 11/07/2023 4:00 PM CDT HPV types 16, 18, 31, 33, 35, 39, 45, 51, 52, 56, 58, 59, 66 and 68 DNA were undetectable or below the pre-set threshold. Methodology: Jacek Karen 4800 HPV Test Corine Guillaume MD MICROBIOLOGY [facility]TRAL LABORATORY [address] [place] [address], [place] * XR FEMUR 2 VIEWS RIGHT (10/15/2023 [...] to assess therapeutic efficacy. Ann Jay PA-C [facility] 09/30/2023 Narrative 09/30/2023 1:49 PM CDT For Patients: Results are automatically released to your [facility] account once available, in compliance with federal regulations. This means that you may see your results before your provider has had a chance to review them. Please allow 2-3 business days for your provider to comment on the results. XR DXA Bone Mineral Density (BMD) EXAM LOCATION: [address] [address] PATIENT NAME: Juliette Brown DATE OF : [...] two scanners are made by the same magazine worker. PROCEDURE: Dual-energy x-ray absorptiometry performed with routine [...] care provider. XR MAMMO EVA BILAT SCREEN [[id number]] CLINICAL HISTORY: ??This is an asymptomatic 63 y.o. patient. INDICATION FOR EXAM: Mammogram Screening. TECHNIQUE: CC & MLO views were obtained. ??This study was evaluated with the assistance of Computer-Aided Detection. Breast Tomosynthesis was used in interpretation. COMPARISON FILM: Yes 05/13/22 [facility] 05/10/21 [facility] FINDINGS: ??The breasts have scattered areas of fibroglandular density. There are no dominant masses, suspicious micro calcifications or areas of architectural distortion. Nivia Bruno MD MAMMO * (ABNORMAL) LIPID PANEL W REFLEX MEASURED LDL (07/08/2023 12:07 PM LOSS CONTROL REPRESENTATIVE) CHOLESTEROL,TOTAL 285(H) 100 - 199 mg/dL 07/08/2023 9:55 PM [facility] TRAL LABORATORY Comment: Cholesterol, Total Reference Ranges Desirable <200 mg/dL Borderline 200-239 mg/dL High >=240 mg/dL TRIGLYCERIDES 97 <150 mg/dL 07/08/2023 9:55 PM LOSS CONTROL REPRESENTATIVE [facility] HDL CHOLESTEROL 76 >40 mg/dL 9:55 PM [facility] TRAL LABORATORY NON-HDL CHOLESTEROL 209(H) <145 mg/dl 07/08/2023 9:55 PM [facility] TRAL LABORATORY CHOL/HDL RATIO 3.75 <4.50 07/08/2023 9:55 PM [facility] TRAL LABORATORY LDL CHOLESTEROL 190(H) <=130 mg/dL 07/08/2023 9:55 PM [facility] TRAL LABORATORY VLDL CHOLESTEROL 19 <=30 mg/dL 07/08/2023 9:55 PM LOSS CONTROL REPRESENTATIVE [facility] TRAL LABORATORY PROVIDER ORDERED STATUS RANDOM 07/08/2023 9:55 PM LOSS CONTROL REPRESENTATIVE [facility] TRAL LABORATORY Blood BLOOD SPECIMEN / Unknown Venipuncture / Unknown 07/08/2023 12:07 PM LOSS CONTROL REPRESENTATIVE 07/08/2023 12:07 PM LOSS CONTROL REPRESENTATIVE Nivia Bruno MD CHEMISTRY [facility] [address] [place] [address], * SCAN-COLONOSCOPY (01/28/2022 1:00 PM CDT) Narrative Procedure Note Edison Ceron MD - 01/28/2022 12:02 PM CDT [facility] [address], [address], [place] [address] Patient Name: Juliette Brown Gender: Female Exam Date: 01/28/2022 Visit Number: [id number] Age: 61 Years 9 Months Date of : 1960 Attending MD: Edison Ceron MD Medical Record#: [id number] ----- Procedure: Colonoscopy Indications: Recent history of [...] Race: White Ethnicity: Not or Preferred Language: Malay cc: Nivia Bruno MD [facility] [phone] Edison Ceron MD OTHER * ANTI HIV 1/2 (06/01/2018 4:02 PM LOSS CONTROL REPRESENTATIVE) HIV-1/HIV-2 ANTIBODY Non-Reacti ve Non-Reacti ve 06/01/2018 8:08 PM LOSS CONTROL REPRESENTATIVE [facility] TRAL LABORATORY Comment:HIV-1 p24 and HIV-1/ HIV-2 Ab not detected. Blood BLOOD SPECIMEN / Unknown Venipuncture / Unknown 06/01/2018 4:02 PM LOSS CONTROL REPRESENTATIVE 06/01/2018 4:02 PM LOSS CONTROL REPRESENTATIVE Nivia Bruno MD SEND OUTS Performing Organization Address City/State/[facility] Co de Phone Number [facility] [address] [place] [address], * ANTI HCV (09/30/2017 5:38 PM CDT) HEPATITIS C ANTIBODY Non-React mathieu Non-React mathieu 10/01/2017 2:41 PM CDT [facility] TRAL LABORATORY Comment:Antibodies to HCV no t detected; does not exclude the possibility of exposure to HCV. Blood BLOOD SPECIMEN / Unknown Venipuncture / Unknown 09/30/2017 5:38 PM CDT 09/30/2017 5:38 PM CDT Kourtney GUERRERO SEND OUTS [facility] [address] [place] [address], from Last 3 Months or Most Recently Relevant to Health Maintenance Advance Directives Documents on File Type Date Recorded Patient Drapery Cutter Expl anation Healthcare Directive 04/01/2022 022 * [...] 6:43 PM 06/10/2011 6:41 PM Care Teams Fluid Jet Cutter Operator Relationship Specialty Start Date End Date [place] [address] PCP - General Family Practice 07/01/19 Judie Carreno PharmD [address] [place] [address] [place] [address] Pharmacist Medication Management Pharmacology 05/28/23 05/28/25
--- OUTSIDE RECORDS SUMMARY | 2023-12-04 08:37 | XMS_ITS | Encounter Summary ---
Author Organization [employer] Address [address] [place] [address] Care Team Providers Care Sales Advisory Manager Name Role Phone Needs Pcp, Assignment Primary Care Provider [phone] Reason for Visit * Reason Comments CONSULT Encounter Details Date Type Department Care Team (Late st Contact Info) Description 10/01/2023 12:45 PM CDT Office Visit [facility] [address] [place] [address] Leif Stewart PA-C [address] [place], [place] [address] [address] Age-related osteoporosis without current pathological fracture (HRC) [...] you contact your insurance to verify your dja-vo-jbltra expense for all medications, as it may [...] daily through food and supplements. Vitamin D: 8108-0472 IU daily Exercise Aerobic Exercise: Work your [...] pack on the infusion site or taking ofit-zwf-ugqefos pain relievers such as acetaminophen as detailed [...] in 2020 -- Prolia x 2 years ([id number]) managed through [facility] Current Treatment: -- Prolia Treatment Duration: 2021-current [...] daily. Indications: clot prevention bacitracin-polymyxin b (POLYSPORIN) [id number] UNIT/GM ointment Apply topically two times a [...] at bedtime. Indications: Trouble Sleeping Multiple Minerals-Vitamins (FOOEDSR-NESVQVSOM-VTFZ-D3) TABS Take 1 Tablet by mouth daily. [...] (OCEAN) 0.65 % nasal solution Place [address] [place] into both nostrils every 2 hours as [...] osteoporosis documented in this encounter Care Teams Sales Advisory Manager Relationship Specialty Start Date End Date Needs Pcp, [place] [address] PCP - General 02/28/21 documented as of this encounter
--- OUTSIDE RECORDS SUMMARY | 2023-12-04 08:37 | XMS_ITS | Referral Summary ---
Author Organization [employer] Address [address] [place] [address] Care Team Providers Care Cranberry Sorter Name Role Phone Nivia Bruno MD Primary Care Provider [phone] Allergies Active Allergy Reactions Criticality Noted Date [...] Take 1 tablet by mouth 07/22/2014 Active [place]-3 1000 MG CAPS 04/02/2016 Acti ve Saline (SODIUM CHLORIDE) 0.65 % SOLN [place] 1 spray in nostril 01/28/2015 Active traZODone [...] BASIC METABOLIC PANEL Routine 06/23/2017 6:00 AM COMBO WELDER from Last 3 Months or Most Recently Relevant to Health Maintenance Results * Basic metabolic panel (06/23/2017 6:00 AM COMBO WELDER) Sodium 139 136 - 145 mmol/L 06/23/2017 10:13 AM [facility] Potassium 4.2 3.5 - 5.0 mmol/L 06/23/2017 10:13 AM [facility] Chloride 103 98 - 107 mmol/L 06/23/2017 10:13 AM [facility] Carbon Dioxide (CO2) 29 22 - 31 mmol/L 06/23/2017 10:13 AM [facility] Anion Gap 7 5 - 18 mmol/L 06/23/2017 10:13 AM [facility] Glucose 105 70 - 125 mg/dL 06/23/2017 10:13 AM [facility] Calcium 9.4 8.5 - 10.5 mg/dL 06/23/2017 10:[address] [facility] Urea Nitrogen 16 8 - 22 mg/dL 06/23/2017 10:13 AM [facility] Creatinine 0.69 0.60 - 1.10 mg/dL 06/23/2017 10:13 AM [facility] GFR Estimate If Black >60 >60 mL/min/1.7 3m2 06/23/2017 10:13 AM COMBO WELDER [facility] GFR Estimate >60 >60 mL/min/1.7 2 06/23/2017 10:13 AM [facility] Blood specimen (specimen) STRUCTURE OF LEFT UPPER LIMB / Unknown Venipuncture / Unknown 06/23/2017 6:00 AM COMBO WELDER 06/23/2017 9:50 AM COMBO WELDER Narrative [facility] - 06/23/2017 10:13 AM COMBO WELDER Fasting Glucose reference range is 70-99 mg/dL per [place] Diabetes Association (ADA) guidelines. Rosmery Simpson MD LAB - BLOOD ORDER [facility] [address] [address], [facility] [address] [address] from Last 3 Months or Most Recently Relevant to Health Maintenance Advance Directives For more information, please contact: [phone] * Full Code (Latest Code Status on File) Date Activated Date Inactivated Comments 04/16/2016 1:58 AM 04/22/2016 3:55 PM Care Teams Cranberry Sorter Relationship Specialty Start Date End Date Nivia Bruno MD [facility] - General 03/22/21
--- OUTSIDE RECORDS SUMMARY | 2023-12-04 08:37 | XMS_ITS | Clinical Summary ---
Author Organization [facility] Address [address] [place] [address] Care Team Providers Care Test Center Administrator Name Role Phone Needs Pcp, Assignment Primary Care Provider [phone] Source Comments You are receiving this document as you are listed as the primary care provider,follow-up provider, or the patient has been referred to you for consultation.This is in compliance with the Medicare andSt. [facility] Hospital[facility] EHR Incentive Program,which states Providers who transition their patient to another setting of careor provider of care or refers their patient to another provider of care shouldprovide summary care record for each transition of care or referral. [employer] Allergies Active Allergy Reactions Criticality Noted Date [...] (OCEAN) 0.65 % nasal solution Place 1 [place] into both nostrils every 2 hours as needed for Congestion. Active bacitracin-polymyx in b (POLYSPORIN) [id number] UNIT/GM ointmentIndication s:dry nose Apply topically two [...] Overview: Added automatically from request for surgery [id number] Sarcoidosis, lung 06/01/2019 Recurrent major depressive disorder 06/05/2018 Osteopenia 11/20/2017 Overview: Right periprosthetic femur fracture 2018 Controlled substance agreement signed 10/11/2016 Overview: Overview: Signed 04/23/16 Dr. Freda Serrano / psychiatry/hc Hearing loss 06/12/2016 Anxiety 06/12/2016 Depression 04/16/2016 [...] Team Description 10/08/2023 2:15 PM CDT E-Visit [address] [address] Leif Stewart PA-C Chief Comp: Follow-up, NOS 10/08/2023 Orders Only HIM DEPARTMENT Provider, MD Kane 10/01/2023 12:45 PM CDT Office Visit [address] [address] Leif Stewart PA-C Age-related osteoporosis without current pathological fracture (HRC) (Primary Dx) from Last 3 Months Immunizations Name Administration [...] (145 lb 12.8 oz) 07/16/2019 9:00 PM GEODETIC SURVEYOR Height 172.7 cm (5' 8) 07/15/2019 9:30 PM GEODETIC SURVEYOR Body Mass Index 22.17 07/15/2019 9:30 PM GEODETIC SURVEYOR Plan of Treatment Health Maintenance Due Date Last Done Comments Cervical Cancer Screening Due 1960 Colon Cancer Screening Plan Due 1960 Medicare Annual Wellness Visit 1960 Cholesterol 2004 Influenza (#1) 2024 03/16/2022, 03/12, 02/24/2020, Additional history exists Mammogram 07/31/2024 08/01/2023, [...] this topic Medical Devices Implanted Type Area Drafter Directional Survey Device Identifier Shelf Expiration Date Model / Serial / Lot Chip Canc Crouton 30cc - [id number] Implanted:Qty: 1 on 07/07/2019 by Tobias Martin MD at [facility] DEVICE Right: LEG [employer] - [employer] 06/30/2023 [id number] / [id number] / [id number] Chip Canc Crouton 30cc - [id number] Implanted:Qty: 1 on 07/07/2019 by Tobias Martin MD at [facility] [employer] DEVICE Right: LEG [employer] - [employer] 06/30/2023 [id number] / [id number] / [id number] Procedures Procedure Name Priority Date/Time [...] Negative (Non Reactive) 08/25/2018 4:34 PM CDT [facility] Comment:HIV-1 p24 Antigen an d HIV-1/HIV-2 Antibody not detected Blood Venipuncture / Unknown 08/25/2018 11:24 AM CDT 08/25/2018 11:24 AM CDT aCrin Rainey MD LAB_1 [facility] [address] [place], [place] [address] * HCAB - Hepatitis C Virus Paula with Reflex In-House (08/25/2018 11:24 AM CDT) Pathologist [facility] Hepatitis C Antibody Negative (Non Reactive) Negative (Non Reactive) 08/25/2018 4:34 PM CDT [facility] Comment:Antibodies to HCV no t detected. Does not exclude the possiblity of exposure to HCV. Blood Venipuncture / Unknown 08/25/2018 11:24 AM CDT 08/25/2018 11:24 AM CDT Carin Rainey MD LAB_1 Performing Organization Address [facility] de Phone Number [facility] [address] [place], [place] [address] from Last 3 Months or Most Recently Relevant to Health Maintenance Advance Directives Documents on File Type Date Recorded Patient Driver Expl anation HEALTHCARE DIRECTIVE 07/10/2019 ADVANCE D DIRECTIVE 07/10/2019 * Full Code (Latest Code Status on File) Date Activated Date Inactivated Comments 07/15/2019 9:18 PM 07/20/2019 4:20 PM * Full Code Date Activated Date Inactivated Comments 07/07/2019 4:33 PM 07/10/2019 6:22 PM Care Teams Test Center Administrator Relationship Specialty Start Date End Date Needs Pcp, [place] [address] PCP - General 02/28/21
--- OUTSIDE RECORDS SUMMARY | 2023-12-04 08:37 | XMS_ITS | Encounter Summary ---
Author Organization [employer] Address [address], [place] [address] Care Team Providers Care Transit Coach Operator Name Role Phone Needs Pcp, Assignment Primary Care Provider [phone] Reason for Visit * Reason Comments QUESTIONS, GENERAL Encounter Details Date Type Department Care Team (Late st Contact Info) Description 09/03/2023 Telephone [facility] [address] [place] [address] Leif Stewart PA-C [address] [facility] [place] [address] QUESTIONS, GENERAL Social History Tobacco Use Types [...] care. No additional information was provided to scientific writer. Please advise. Have you been seen for this recently?: No If we are unable to reach you can we leave a detailed message on your voicemail? Yes If we are unable to reach you can we send you a message in [employer] - Financial Reconciliation? Yes [Audio Tape Librarian/Patent Examiner: Relay to patient; We make every effort to get back to you sameday, however it may take 1-2 business days depending on the nature of the communication.] documented in this encounter Plan of Treatment Not on file documented as of this encounter Visit Diagnoses Not on filedocumented in this encounter Care Teams Transit Coach Operator Relationship Specialty Start Date End Date Needs Pcp, [place] [address] PCP - General 02/28/21 documented as of this encounter
--- OUTSIDE RECORDS SUMMARY | 2023-12-04 08:37 | XMS_ITS | Encounter Summary ---
Author Organization [place] Address [facility] [place] [address] Care Team Providers Care Ortho Rn Name Role Phone Heladio Martins MD Primary Care Provider Kelsi Glez MD Unavailable [phone] Nivia Bruno MD Primary Care Provider Encounter Details Date Type Department Care Team (Latest Contact Info) Description 03/06/2021 [facility] Treatment Plan [facility] [address] [place] [phone] Dav Tierney MD [address] [place] [address] Megan Ruiz, SHANNON Major depressive [...] documented as of this encounter Care Teams Ortho Rn Relationship Specialty Start Date End Date Heladio Martins MD PCP - General Internal Medicine 03/05/16 03/21/21 Nivia Bruno MD [address] [facility] [place] [address] PCP - General 03/22/21 Kelsi Handy MD [address] [place] [address] Assigned OBGYN Provider 04/23/20 3 documented as of this encounter
--- OUTSIDE RECORDS SUMMARY | 2023-12-04 08:37 | XMS_ITS | Encounter Summary ---
Author Organization [place] Address [address] [place] [address]. [place] [address] Care Team Providers Care Acoustical Installer Name Role Phone Kelsi Handy MD Unavailable [phone] Nivia Bruno MD Primary Care Provider [phone] Encounter Details Date Type Department Care Team ([facility] Contact Info) Description 09/25/2021 Telephone [facility] Behavioral Health Intake [address] [place] [address] Generic, Behavioral Intake, Social History [...] Patient Name: ?? Location of programming: [facility] Start Date: 09/27/21 Group (BHxxxxx on #days of the week# at #start time to end time#): 55+ clinic 1 Provider (name of MD):kerry Number of visits to be scheduled: 1 Duration of Appointment in minutes: 120 mins Visit Type (Robert - 0580 / Zoom - 2659 / In-person or Treatment - 870) :zoom 2657 Additional notes: documented in this encounter Plan of Treatment Not on file documented as of this encounter Visit Diagnoses Not on filedocumented in this encounter Additional Health Concerns Assessment Noted Time PHQ-9 Depression Total Score: 7 06/14/19 22 10:59 AM WEB SERVICES MANAGER documented as of this encounter Care Teams Acoustical Installer Relationship Specialty Start Date End Date Nivia Bruno MD [address] [place] [address] PCP - General 03/22/21 Kelsi Handy MD [address] [place] [address] Assigned OBGYN Provider 04/23/20 3 documented as of this encounter
--- OUTSIDE RECORDS SUMMARY | 2023-12-04 08:37 | XMS_ITS | Encounter Summary ---
Author Organization [employer] Address [address] [place] [address] Care Team Providers Care Steward/Stewardess Tourist Class Name Role Phone Needs Pcp, Assignment Primary Care Provider [phone] Reason for Visit * Reason Comments Follow-up, NOS Entered automaticall y based on patient selection in [employer]. Encounter Details Date Type Department Care Team (Late st Contact Info) Description 10/08/2023 2:15 PM CDT E-Visit [facility] [address] [place] [address] Leif Stewart PA-C [address] [place] [address] [place] [address] Chief Comp: Follow-up, NOS Social History Tobacco [...] can I have the infusion at the [facility]? Their telephone # is . Thank you for your time. Kind Regards, Juliette documented in this encounter Plan of Treatment Not on file documented as of this encounter Visit Diagnoses Not on filedocumented in this encounter Care Teams Steward/Stewardess Tourist Class Relationship Specialty Start Date End Date Needs Pcp, [place] [address] PCP - General 02/28/21 documented as of this encounter
--- OUTSIDE RECORDS SUMMARY | 2023-12-04 08:37 | XMS_ITS | Encounter Summary ---
Author Organization [facility] Address [address] [place] [address] Care Team Providers Care Medical Clerical Assistant Name Role Phone Needs Pcp, Assignment Primary Care Provider [phone] Encounter Details Date Type Department Care Team (Late st Contact Info) Description 07/16/2019 Lab Requisition [facility] [address] [facility] [place], [place] [address] Lul Hunter MD [address] [place], [place] [id number] Encounter for surgical aftercare following surgery on [...] organs documented in this encounter Care Teams Medical Clerical Assistant Relationship Specialty Start Date End Date Needs Pcp, [facility] [place] [place] [address] PCP - General 02/28/21 documented as of this encounter
--- OUTSIDE RECORDS SUMMARY | 2023-12-04 08:37 | XMS_ITS | Encounter Summary ---
Author Organization [employer] Address [address] [place] [address] Care Team Providers Care Network Operations Center Engineer Name Role Phone Heladio Martins MD Primary Care Provider Kelsi Glez MD Unavailable [phone] Nivia Bruno MD Primary Care Provider [phone] Reason for Visit * Reason Onset Date Comments MH/CD Inpatient 04/15/2016 Encounter Details Date Type Department Care Team ([facility] Contact Info) Description 04/15/2016 Telephone [facility] Behavioral Health Intake [address] [place] [address] Generic, Behavioral Intake, MD MH/CD Inpatient Social [...] as it is after 10pm); unit notified DAMAGE APPRAISER documented in this encounter Plan of Treatment Not on file documented as of this encounter Visit Diagnoses Not on filedocumented in this encounter Care Teams Network Operations Center Engineer Relationship Specialty Start Date End Date Heladio Martins MD PCP - General Internal Medicine 03/05/16 03/21/21 Nivia Bruno MD [address] [place] [address] PCP - General 03/22/21 Kelsi Handy MD [address] [place] [address] Assigned OBGYN Provider 04/23/20 3 documented as of this encounter
--- OUTSIDE RECORDS SUMMARY | 2023-12-04 08:37 | XMS_ITS | Encounter Summary ---
Author Organization [facility] Address [address] [address] Care Team Providers Care Tile Designer Name Role Phone Needs Pcp, Assignment Primary Care Provider [phone] Encounter Details Date Type Department Care Team (Late st Contact Info) Description 07/12/2019 Lab Requisition [facility] [address] [facility] [place] [address] Lul Hunter MD [address] [place], [place] [id number] Encounter for surgical aftercare following surgery on [...] BASIC METABOLIC PANEL Routine 07/13/2019 7:00 AM MANAGER OF PRODUCT Encounter for surgical aftercare following surgery on the nervous system COMPLETE BLOOD COUNT-NO DIFF Routine 07/13/2019 7:00 AM MANAGER OF PRODUCT Encounter for surgical aftercare following surgery on the nervous system documented in this encounter Results * (ABNORMAL) Basic Metabolic Panel (07/13/2019 7:00 AM MANAGER OF PRODUCT) Sodium 136 136 - 145 mmol/L 07/13/2019 12:35 PM MANAGER OF PRODUCT [facility] Potassium 4.7 3.5 - 5.1 mmol/L 07/13/2019 12:35 PM MANAGER OF PRODUCT [facility] Chloride 100 98 - 109 mmol/L 07/13/2019 12:35 PM MANAGER OF PRODUCT [facility] CO2 27 20 - 29 mmol/L 07/13/2019 12:35 PM MANAGER OF PRODUCT [facility] Anion Gap 9 7 - 16 mmol/L 07/13/2019 12:35 PM MANAGER OF PRODUCT [facility] Calcium 9.2 8.4 - 10.4 mg/dL 07/13/2019 12:35 PM MANAGER OF PRODUCT [facility] BUN 18 7 - 26 mg/dL 07/13/2019 12:35 PM MANAGER OF PRODUCT [facility] Creatinine 0.76 0.55 - 1.02 mg/dL 07/13/2019 12:35 PM MANAGER OF PRODUCT [facility] GFR, Estimated >60 >60 mL/min/1.7 3m2 07/13/2019 12:35 PM MANAGER OF PRODUCT [facility] GFR, Est If >60 >60 mL/min/1.7 3m2 07/13/2019 12:35 PM MANAGER OF PRODUCT [facility] Glucose 105(H) 70 - 100 mg/dL 07/13/2019 12:35 PM MANAGER OF PRODUCT [facility] Comment:The given reference range is for the fasting state. Non-fasting reference range for glucose is 70 - 180 mg/dL. Hours Fasting Unknown 07/13/2019 12:35 PM MANAGER OF PRODUCT [facility] Blood Venipuncture / Unknown 07/13/2019 7:00 AM MANAGER OF PRODUCT 07/13/2019 10:40 AM MANAGER OF PRODUCT Lul Hunter MD LAB_1 [facility] [address] * (ABNORMAL) Complete Blood Count-No Diff (07/13/2019 7:00 AM MANAGER OF PRODUCT) WBC 4.7 3.5 - 10.5 x10(9)/L 07/13/2019 11:17 AM MANAGER OF PRODUCT [facility] RBC 3.19(L) 3.90 - 5.03 x10(12)/L 07/13/2019 11:17 AM MANAGER OF PRODUCT [facility] Hemoglobin 10.1(L) 12.0 - 15.5 g/dL 07/13/2019 11:17 AM MANAGER OF PRODUCT [facility] HCT 31.2(L) 34.9 - 44.5 % 07/13/2019 11:17 AM MANAGER OF PRODUCT [facility] MCV 97.8 80.0 - 100.0 fL 07/13/2019 11:17 AM MANAGER OF PRODUCT [facility] MCH 31.7 27.6 - 33.3 pg 07/13/2019 11:17 AM MANAGER OF PRODUCT [facility] MCHC 32.4 31.5 - 35.2 g/dL 07/13/2019 11:17 AM MANAGER OF PRODUCT [facility] RDW 11.7(L) 11.9 - 15.5 % 07/13/2019 11:17 AM MANAGER OF PRODUCT [facility] Platelets 221 150 - 450 x10(9)/L 07/13/2019 11:17 AM MANAGER OF PRODUCT [facility] Automated NRBC 0 <=0 /100 WBC 07/13/2019 11:17 AM MANAGER OF PRODUCT [facility] Blood Venipuncture / Unknown 07/13/2019 7:00 AM MANAGER OF PRODUCT 07/13/2019 10:44 AM MANAGER OF PRODUCT Lul Hunter MD LAB_1 Performing Organization Address City/State/[facility] Co de Phone Number [facility] [address] [place] [address], [facility] documented in this encounter Visit Diagnoses Diagnosis Encounter for surgical aftercare following surgery on the nervous system documented in this encounter Care Teams Tile Designer Relationship Specialty Start Date [place] [address] PCP - General 02/28/21 documented as of this encounter
--- OUTSIDE RECORDS SUMMARY | 2023-12-04 08:37 | XMS_ITS | Encounter Summary ---
Author Organization [facility] Address [address] [address] Care Team Providers Care Parts Cataloger Name Role Phone Needs Pcp, Assignment Primary Care Provider [phone] Reason for Visit * Auth/Cert Specialty Diagnoses / Procedures Referred By Contac t Referred To Contact Diagnoses Diarrhea of presumed infectious origin Fibromyalgia Diarrhea of presumed infectious origin Fibromyalgia Diarrhea of presumed infectious origin Fibromyalgia Referral ID Status Reason Start Date Expiration Date Visits Re quested Visits Authorized [id number] 1 1 Encounter Details Date Type Department Care Team (Latest Contact Info) Description 07/15/2019 Lab Requisition [facility] [address] [facility] [place] [address] Lul Hunter MD [address] [place], [place] [id number] Enterocolitis due to Clostridium difficile, not specified [...] C.DIFFICILE TOXIN,MOLECULAR DETECTION Routine 07/15/2019 10:00 PM MANAGER COMMUNITY DEVELOPMENT Enterocolitis due to Clostridium difficile, not specified as recurrent documented in this encounter Results * (ABNORMAL) C.Difficile Toxin,Molecular Detection, (07/15/2019 10:00 PM MANAGER COMMUNITY DEVELOPMENT) C.difficile by PCR Detected( A) Not Detected 07/15/2019 11:30 PM MANAGER COMMUNITY DEVELOPMENT [facility] Stool Non-blood Collection / Unknown 07/15/2019 10:00 PM MANAGER COMMUNITY DEVELOPMENT 07/15/2019 10:24 PM MANAGER COMMUNITY DEVELOPMENT Narrative [facility] - 07/15/2019 11:30 PM MANAGER COMMUNITY DEVELOPMENT Methodology: Qualitative real-time PCR assay to detect the Clostridium difficile toxin B gene. Lul Hunter MD LAB_1 [facility] [address] [place], [place] [address] [place] [address] documented in this encounter Visit Diagnoses Diagnosis Enterocolitis due to Clostridium difficile, not specified as recurrent documented in this encounter Care Teams Parts Cataloger Relationship Specialty Start Date End Date Needs Pcp, [place] [address] PCP - General 02/28/21 documented as of this encounter
--- OUTSIDE RECORDS SUMMARY | 2023-12-04 08:37 | XMS_ITS | Encounter Summary ---
Author Organization [facility] Address [address] [place] [address] Care Team Providers Care Color Room Attendant Name Role Phone Kelsi Handy MD Unavailable [phone] Nivia Bruno MD Primary Care Provider [phone] Encounter Details Date Type Department Care Team ([facility] Contact Info) Description 06/13/2021 Telephone [facility] Behavioral Health Intake [address] [place] [address] Generic, Behavioral Intake, Social History [...] KETTY Lynn sent at 06/29/2021 11:41 AM RADIO TECHNICIAN ----- Regarding: new start Clinic 1 on 07/05 Scheduling Request Patient Name: Juliette Brown Location of programmin+ Start Date: June Group: Clinic 1 on at 1:00 to 3:00PM Attending Provider (MD): 12 Number of visits to be scheduled: 12 Duration of Appointment in minutes: 120 min Visit Type: Zoom - [id number] Additional notes: O TECHNICIAN * Telephone Encounter - Jen Serrano - 06/13/2021 9:38 AM CST ----- Message from SHANNON Warner sent at 06/13/2021 9:12 AM RADIO TECHNICIAN ----- Regarding: add appointment Scheduling Request Patient Name: ?? Location of programming: [facility] 55+ Start Date:06/13/21 Group (BHxxxxx on #days of the week# at #start time to end time#): 55+ B1 M,W,F 1-4pm Provider (name of MD): Niall Number of visits to be scheduled: 1 Duration of Appointment in minutes: 180 mins Visit Type (Robert - 1242 / Zoom - 7147 / In-person or Treatment - 870) :2657-zoom Additional notes: O TECHNICIAN documented in this encounter Plan of Treatment Not on file documented as of this encounter Visit Diagnoses Not on filedocumented in this encounter Additional Health Concerns Assessment Noted Time PHQ-9 Depression Total Score: 7 06/14/19 22 10:59 AM RADIO TECHNICIAN documented as of this encounter Care Teams Color Room Attendant Relationship Specialty Start Date End Date Nivia Bruno MD [address] [place] [address] PCP - General 03/22/21 Kelsi Handy MD [address] [place] [address] Assigned OBGYN Provider 04/23/20 3 documented as of this encounter
--- OUTSIDE RECORDS SUMMARY | 2023-12-04 08:37 | XMS_ITS | Clinical Summary ---
Author Organization [facility] Address [address] [place] [address] Care Team Providers Care Veneer Sheet Repairer Name Role Phone Nivia Bruno MD Primary Care Provider [phone] Allergies Active Allergy Reactions Criticality Noted Date [...] Take 1 tablet by mouth 07/22/2014 Active [place]-3 1000 MG CAPS 04/02/2016 Acti ve Saline (SODIUM CHLORIDE) 0.65 % SOLN [place] 1 spray in nostril 01/28/2015 Active traZODone [...] BASIC METABOLIC PANEL Routine 06/23/2017 6:00 AM AUDIO/VISUAL MANAGER from Last 3 Months or Most Recently Relevant to Health Maintenance Results * Basic metabolic panel (06/23/2017 6:00 AM AUDIO/VISUAL MANAGER) Sodium 139 136 - 145 mmol/L 06/23/2017 10:13 AM [facility] Potassium 4.2 3.5 - 5.0 mmol/L 06/23/2017 10:13 AM [facility] Chloride 103 98 - 107 mmol/L 06/23/2017 10:13 AM [facility] Carbon Dioxide (CO2) 29 22 - 31 mmol/L 06/23/2017 10:13 AM [facility] Anion Gap 7 5 - 18 mmol/L 06/23/2017 10:13 AM [facility] Glucose 105 70 - 125 mg/dL 06/23/2017 10:13 AM [facility] Calcium 9.4 8.5 - 10.5 mg/dL 06/23/2017 10:13 AM [facility] Urea Nitrogen 16 8 - 22 mg/dL 06/23/2017 10:13 AM [facility] Creatinine 0.69 0.60 - 1.10 mg/dL 06/23/2017 10:13 AM [facility] GFR Estimate If Black >60 >60 mL/min/1.7 3m2 06/23/2017 10:13 AM AUDIO/VISUAL MANAGER [facility] GFR Estimate >60 >60 mL/min/1.7 [facility] [place] 06/23/2017 10:13 AM [facility] Blood specimen (specimen) STRUCTURE OF LEFT UPPER LIMB / Unknown Venipuncture / Unknown 06/23/2017 6:00 AM AUDIO/VISUAL MANAGER 06/23/2017 9:50 AM AUDIO/VISUAL MANAGER Narrative [facility] - 06/23/2017 10:13 AM AUDIO/VISUAL MANAGER Fasting Glucose reference range is 70-99 mg/dL per [place] [employer] Diabetes Association (ADA) guidelines. Rosmery Simpson MD LAB - BLOOD ORDER [facility] [address] [address], [facility] [address] [address] from Last 3 Months or Most Recently Relevant to Health Maintenance Advance Directives For more information, please contact: [phone] * Full Code (Latest Code Status on File) Date Activated Date Inactivated Comments 04/16/2016 1:58 AM 04/22/2016 3:55 PM Care Teams Veneer Sheet Repairer Relationship Specialty Start Date End Date Nivia Bruno MD [facility] - General 03/22/21
--- OUTSIDE RECORDS SUMMARY | 2023-12-04 08:37 | XMS_ITS | Encounter Summary ---
Author Organization [facility] Address [address] [place] [address] Care Team Providers Care Pulmonary Disease Specialist Name Role Phone Heladio Martins MD Primary Care Provider Kelsi Glez MD Unavailable [phone] Nivia Bruno MD Primary Care Provider Encounter Details Date Type Department Care Team ([facility] Contact Info) Description 03/07/2021 [facility] Behavioral Health Intake [address] [place] [phone] Generic, Behavioral Intake, Social History Tobacco Use [...] PM CDT To: Cheyanne Santana [facility], Quentin Hagan, # Subject: Schedule for PHP on Friday Scheduling Request Patient Name: Juliette Brown Location of programming: [facility] Start Date: 03/12 Group: [id number] 9am to 3pm Attending Provider (): Trent Number of visits to be scheduled: 50 Duration of Appointment in minutes: 360 Visit Type: Zoom - 2650 Additional notes: Patient is currently in PHP at [facility]. She has Medicare and BCBS. Please check ifinsurance will cover another PHP program. Patient was given [employer] phone number. * Telephone Encounter - Jen Serrano - 03/07/2021 7:50 AM CDT ----- Message from KETTY Rollins sent at 03/06/2021 7:37 PM CDT ----- Regarding: Schedule for PHP on Friday Scheduling Request Patient Name: Juliette Brown Location of programming: [facility] Start Date: 03/12 Group: [id number] 9am to 3pm Attending Provider (): Cristianoe Number of visits to be scheduled: 50 Duration of Appointment in minutes: 360 Visit Type: Zoom - 2657 Additional notes: Patient is currently in PHP at [facility]. She has Medicare and BCBS. Please check ifinsurance will cover another PHP program. Patient was given [employer] phone number. documented in this encounter Plan of Treatment Not on file documented as of this encounter Visit Diagnoses Not on filedocumented in this encounter Additional Health Concerns Assessment Noted Time PHQ-9 Depression Total Score: 21 021 12:28 PM CDT documented as of this encounter Care Teams Pulmonary Disease Specialist Relationship Specialty Start Date End Date Heladio Martins MD PCP - General Internal Medicine 03/05/16 03/21/21 Nivia Bruno MD [address] [facility] [place] [address] PCP - General 03/22/21 Kelsi Handy MD [address] [place] [address] Assigned OBGYN Provider 04/23/20 3 documented as of this encounter
== END 2023-12-04 08:33 | disposition home or self-care (01) ==
LOC: NM 08:33
PROVIDERS: PCP Family Medicine; Visit Provider Family Medicine
DX: M79.651 Pain in right thigh (principal); S79.821A Other specified injuries of right thigh, initial encounter; Z96.649 Presence of unspecified artificial hip joint; Z96.651 Presence of right artificial knee joint
CPT/HCPCS: 78315; A9503

== ENCOUNTER 2023-12-26 20:31 | Emergency (ER) | payer MEDICARE, BC, SELFPAY ==
--- OUTSIDE RECORDS SUMMARY | 2023-12-26 20:34 | XMS_ITS | Encounter Summary ---
Author Organization [facility] Address [address] [place] [address] Care Team Providers Care Recreation Teacher Name Role Phone Heladio Martins MD Primary Care Provider Kelsi Glez MD Unavailable [phone] Nivia Bruno MD Primary Care Provider [phone] Reason for Visit * Reason Onset Date Comments MH/CD Inpatient 04/15/2016 Encounter Details Date Type Department Care Team ([facility] Contact Info) Description 04/15/2016 Telephone [facility] Behavioral Health Intake [address] [place] [address] Generic, Behavioral Intake, MD MH/CD Inpatient Social [...] as it is after 10pm); unit notified [facility] [facility] documented in this encounter Plan of Treatment Not on file documented as of this encounter Visit Diagnoses Not on filedocumented in this encounter Care Teams Recreation Teacher Relationship Specialty Start Date End Date Heladio Martins MD PCP - General Internal Medicine 03/05/16 03/21/21 Nivia Bruno MD [address] [place] [address] PCP - General 03/22/21 Kelsi Handy MD [address] [place] [address] Assigned OBGYN Provider 04/23/20 3 documented as of this encounter
--- OUTSIDE RECORDS SUMMARY | 2023-12-26 20:34 | XMS_ITS | Clinical Summary ---
Author Organization [facility] Address [place], [place] [address] Care Team Providers Care Farmworker Rice Name Role Phone Nivia Bruno MD Primary Care Provider [phone] Judie Carreno PharmD Unavailable [phone] Allergies Active Allergy Reactions Criticality Noted Date [...] hours if needed. 0 07/29/19 20 Active LORazepam (ATIVAN) 0.5 mg tabIndications:KATY (generalized anxiety disorder) Take 1 Tablet (0.5 mg) by mouth 2 times daily if needed for Anxiety. 90 day supply provided, will not fill early. 180 Tablet 1 04/11/20 23 Active Additional Information Patient taking differently:0.5 mg Oral BID PRN, Anxiety, 90 day supply provided, will not fill early.Pt stated tapering off of medication, Reported on 10/24/2023 valACYclovir (VALTREX) 1 gram tabletIndications: Genital herpes simplex, unspecified site Take 1 Tablet (1 g) by mouth three times daily. Tid X 7 Days 21 Tablet 04/17/20 23 Active hydrocortisone 2.5% creamIndications:H emorrhoids, external Apply [...] injury due to substance overdose Inhale 1 [place] into affected nostril(s) each time if needed for Patient Diff To Arouse or Resp Rate < 8 / min. Additional doses may be given every 2 to 3 minutes until emergency medical assistance arrives. 2 Each 05/29/19 24 Active estradioL (VAGIFEM) 10 mcg tab vaginal tabletIndications: Vaginal candidiasis Insert 1 Tablet (10 mcg) into the vagina every Friday and . 05/29/19 24 Active cyclobenzaprine (FLEXERIL) 5 mg tablet [...] daily. 180 Tablet 1 09/15/19 24 Active liothyronine (CYTOMEL) 5 mcg tabletIndications: Hypothyroidism, unspecified type Take 1 tablet (5 mcg) by mouth two times daily. 180 Tablet 1 10/08/19 24 Active progesterone micronized (PROMETRIUM) 100 mg capsuleIndications :Postmenopausal,Ho rmone replacement therapy Take 1 Capsule (100 mg) by mouth at bedtime. 90 Capsule 10/13/19 24 Active triamcinolone 0.1% (KENALOG IN ORABASE) [...] Apple Cider Vinegar - PRN NN Ultimate Sawyer-3 - daily Body Bio Balance Oil (omega-3/omega-6 blend) - 2 capsules daily Body Bio PC - daily BodyBio Tudca - daily 11/10/19 24 Active HYDROmorphone (DILAUDID) 2 mg tabletIndications: Blunt trauma of right thigh, subsequent encounter Take 0.5 Tablets (1 mg) by mouth every 6 hours if needed for Pain. 12 Tablet 11/19/19 24 Active lidocaine 5 % topical patchIndications:L umbar radiculopathy Apply on dry, clean, hairless skin. Apply 1 patch to painful area of skin for up to to 12 hours within 24 hour period. 30 Patch 1 11/19/19 24 Active vilazodone 20 mg tabletIndications: Severe episode of recurrent major depressive disorder, without psychotic features (HC),KATY (generalized anxiety disorder) TAKE 1 TABLET (20 MG) BY MOUTH ONCE DAILY. 90 Tablet 12/11/19 24 Active tobramycin-dexAMET Hasone (TOBRADEX) 0.3%-0.1% opthalmic suspensionIndicati ons:Myokymia Place 1 Drop into both eyes four times daily. Not taking. 05/29/19 24 024 Discontinued(*M ed complete/Regime n complete/Level of care change) Shower ChairIndications:C hronic polyarticular juvenile rheumatoid arthritis (HC) For home use. 1 Each 06/04/19 24 024 Discontinued(*M ed complete/Regime n complete/Level of care change) rosuvastatin (CRESTOR) 10 mg tabletIndications: Hyperlipidemia, unspecified hyperlipidemia type Take 1 Tablet (10 mg) by mouth at bedtime. 90 Tablet 3 07/22/19 24 024 Discontinued(*M ed complete/Regime n complete/Level of care change) meloxicam 15 mg tabletIndications: Osteoarthritis, unspecified osteoarthritis type, unspecified site Take 1 Tablet (15 mg) by mouth once daily. 30 Tablet 09/26/19 24 024 Discontinued(*M ed complete/Regime n complete/Level of care change) vilazodone 20 mg tabletIndications: Severe episode of recurrent major depressive disorder, without psychotic features (HC),KATY (generalized anxiety disorder) Take 1 Tablet (20 mg) by mouth once daily. 30 Tablet 10/24/19 24 024 Discontinued Hospital, Clinic, or Other Facility Administered Medication Ordered Dose Route Frequency Start Date End Date Status triamcinolone acetonide (KENALOG) injection 80 mgIndications:Effusion of elbow joint, left,Left elbow pain 80 mg IArtic ONE TIME 12/17/2023 12/17/2023 Ended ketorolac 30 mg injection (TORADOL)Indications:Effus ion of elbow joint, left,Left elbow pain 30 mg IArtic ONE TIME 12/17/2023 12/17/2023 Ende d Active Problems Problem Noted Date Diagnosed Date [...] Encounters Date Type Department Care Team Description 12/26/2023 2:00 PM CDT Procedure Only [facility] [address] [facility] [place] [address] Tyler Parson L Ac Acupuncture 12/26/2023 Travel 12/23/2023 1:00 PM CDT Phone Office Visit [facility] [address] [place] [address] Keiko Downs [employer] Individual Therapy; Phone Visit 12/23/2023 Travel 12/17/2023 2:30 PM CDT Pharmacist Medication Management [facility] [address] [place] [address] Judie Carreno PharmD Pharmacist Medication Management ([facility] follow-up - [facility] patient - depression/pain) 12/17/2023 9:00 AM CDT Procedure Only [facility] [address] [place] [address] Facundo Mijares MD Procedure (Ultrasound guided injection lef... 12/16/2023 1:00 PM CDT Phone Office Visit [facility] [address] [facility] [address] Keiko Downs [employer] Individual Therapy; Phone Visit 12/16/2023 Travel 12/12/2023 2:00 PM CDT Procedure Only [facility] [address] [place] [address] Tyler Parson L Ac Acupuncture 12/12/2023 11:15 AM CDT Phone Office Visit [address] [address] Freda Serrano MD Follow Up 12/12/2023 Travel 12/10/2023 Refill [facility] [address] [place] [address] Freda Serrano MD Refill Request (Vilazodone) 12/10/2023 Orders Only [facility] [address] [place] [address] Facundo Mijares MD 1 scan: (1-Ord) [facility] BONE 3 PHASE, 12/04/2023 12/09/2023 1:00 PM CDT Phone Office Visit [facility] [place] [address] Keiko Downs, [facility] Individual Therapy; Phone Visit 12/09/2023 Telephone [facility] [place] [address] Facundo Mijares MD Questions 12/09/2023 Travel 12/02/2023 1:00 PM CDT Phone Office Visit [facility] [place] [address] Keiko Downs [facility] Individual Therapy; Phone Visit 12/02/2023 Travel 12/01/2023 Telephone [facility] [place] [address] Facundo Mijares MD FYI 11/28/2023 2:00 PM CDT Procedure Only [facility] [address] [place] [address] Tyler Parson L Ac Acupuncture 11/27/2023 11:05 AM CDT Office Visit [facility] [place] [address] Kourtney Cherry PA UTI (Or Yeast Infection) 11/27/2023 Telephone [facility] [place] [address] Facundo Mijares MD Questions 11/27/2023 Travel 11/25/2023 11:30 AM CDT Phone Office Visit [facility] [address] [place] [address] Keiko Downs [facility] Individual Therapy; Phone Visit 11/25/2023 Travel 11/24/2023 Telephone [facility] [address] [place] [address] Facundo Mijares MD Prior Authorization (lidocaine 5 % topical patch (APPROVED 11/24/2023- Until Further Notice)) 11/19/2023 4:00 PM CDT Office Visit [facility] [address] [place] [address] Facundo Mijares MD Musculoskeletal Problem (Follow Up Right Leg Pain ) 11/19/2023 2:00 PM CDT Pharmacist Medication Management [facility] [address] [place] [address] Judie Carreno, AugustaD Pharmacist Medication Management ([facility] follow-up - [facility] patient - pain/depression treatment) 11/19/2023 Travel 11/18/2023 1:00 PM CDT Phone Office Visit [address] [phone] Keiko Downs [facility] Individual Therapy; Phone Visit 11/18/[address] [address] Facundo Mijares MD Appointment Request 11/17/2023 1:45 PM CDT Phone Office Visit [address] [address] Freda Serrano MD Phone Visit; Medication Management (Not doing very well today, Has MONTALVO, ) 11/17/2023 Travel 11/11/2023 1:00 PM CDT Phone Office Visit [address] [address] Keiko Downs [employer] Individual Therapy; Phone Visit 11/10/2023 11:00 AM CDT Office Visit [address] [address] Jyoti Sellers PA Follow Up (UTI, new plan) 11/10/2023 Travel 11/07/2023 1:00 PM CDT Procedure Only [address] [place] [address] Tyler Parson L Ac Acupuncture 11/07/2023 Travel 11/05/2023 Lab Requisition [facility] [phone] Corine Guillaume MD 11/04/2023 1:00 PM CDT Phone Office Visit [facility] [address] [place] [address] Keiko Downs [facility] Individual Therapy; Phone Visit 11/04/2023 11:15 AM CDT Phone Office Visit [facility] [address] [place] [address] Freda Serrano MD Phone Visit; Follow Up 11/04/2023 Travel 10/31/2023 2:30 PM CDT Procedure Only [facility] [address] [place] [address] Tyler Parson L Ac Acupuncture 10/31/2023 Travel 10/30/2023 10:40 AM CDT Office Visit [facility] [address] [place] [phone] Tomas Mckeon MD Consult (Sore on inside on mouth. upper lips. Nasal congestion. Deviated septum) 10/29/2023 3:30 PM CDT Pharmacist Medication Management [facility] [address] [place] [address] Judie Carreno PharmD Pharmacist Medication Management ([facility] follow-up - [facility] patient - pain/MH) 10/29/2023 Travel 10/28/2023 11:30 AM CDT Phone Office Visit [facility] [address] [place] [phone] Keiko Downs [facility] Individual Therapy; Phone Visit 10/28/2023 Travel 10/24/2023 11:15 AM CDT Phone Office Visit [facility] [address] [place] [address] Freda Serrano MD Follow Up; Phone Visit 10/24/2023 Travel 10/22/2023 11:05 AM CDT Office Visit [facility] [address] [place] [address] Kourtney Cherry PA Mouth/Lip Problem 10/22/2023 10:00 AM CDT Phone Office Visit [facility] [address] [place] [address] Jyoti Sellers PA Phone Visit; Follow Up (Labs, medication ) 10/22/2023 Travel 10/22/[address] [address] Jyoti Sellers PA Appointment (Cancellation note per patient) 10/21/2023 11:30 AM CDT Phone Office Visit [address] [address] Keiko Downs, [facility] Individual Therapy; Phone Visit 10/21/2023 Travel 10/17/2023 2:30 PM CDT Procedure Only [address] [address] Tyler Parson L Ac Acupuncture 10/17/2023 10:30 AM CDT Pharmacist Medication Management [address] [address] Judie Carreno PharmD Pharmacist Medication Management ([facility] follow-up - [facility] patient - phone visit) 10/17/2023 Patient Outreach [address] [address] Aubree Nuñez, YASMIN Primary RN Care Management (FCM referral ) 10/16/[address] [address] Judie Carreno PharmD Medication Management 10/16/2023 Travel 10/16/[address] [address] Freda Serrano MD Refill Request (Escitalopram Oxalate) 10/15/2023 1:45 PM CDT Ancillary Procedure [facility] [address] [place] [address] 10/15/2023 1:00 PM CDT Office Visit [facility] [address] [place] [address] Facundo Mijares MD Follow Up (Fell a week ago-pain right shoulder and right leg pain) 10/14/2023 1:00 PM CDT Phone Office Visit [facility] [address] [place] [address] Keiko Downs, [employer] Individual Therapy; Phone Visit 10/14/2023 Travel 10/13/2023 Telephone [facility] [address] [place] [address] Facundo Mijares MD Error-please disregard (as soon as possible); Appointment Request 10/10/2023 2:00 PM CDT Procedure Only [facility] [address] [place] [address] Tyler Parson L Ac Acupuncture 10/10/2023 Travel 10/09/2023 Refill [facility] [address] [place] [address] Nivia Bruno MD Refill Request 10/09/2023 Patient Outreach [facility] - Care Management Navigation/[facility] [address] [place] [address] Kulwant Palmer Care Management Intake (Engagement Outreach/) 10/08/2023 Patient Outreach [facility] [address] [place] [address] Judie Carreno, AugustaD Pharmacist Medication Management (Medication refills) 10/07/2023 2:30 PM CDT Patient Outreach [facility] Care Management - Advanced Care Team [address] [place] [address] Lisa Thakur, claims consultant Management (Transition) 10/07/2023 1:00 PM CDT Phone Office Visit [facility] [address] [place] [address] Keiko Downs [facility] Individual Therapy; Phone Visit 10/07/2023 Travel 10/03/2023 3:32 PM CDT - 10/03/2023 11:59 PM CDT Hospital Encounter [facility] [address] [place] [address] Nivia Bruno MD Pain in left lower leg 10/03/2023 2:00 PM CDT Procedure Only [facility] [address] [place] [address] Tyler Parson L Ac 10/03/2023 11:15 AM CDT Office Visit [facility] [address] [place] [address] Nivia Bruno MD Ankle Injury (hurt ankle - wondering about the veins/worried about DVT); Derm Problem (itchy under breasts/) 10/03/2023 Telephone [facility] [address] [place] [address] Nivia Bruno MD Results (no DVT in leg) 10/03/2023 Travel 10/01/2023 Telephone [facility] [address] [place] [address] Freda Serrano MD DONNY 10/01/2023 Telephone [facility] [address] [place] [address] Nivia Bruno MD Appointment (PROLIA SHOT ) 09/30/2023 11:30 AM CDT Phone Office Visit [facility] [address] [place] [phone] Keiko Downs [facility] Individual Therapy; Phone Visit 09/30/2023 Nurse Triage [facility] [address] [place] [address] Nivia Bruno MD Results (DEXA) 09/30/2023 Telephone [facility] [address] [place] [address] Nivia Bruno MD Imaging (RESULTS) 09/30/2023 Travel 09/26/2023 11:30 AM CDT Pharmacist Medication Management [facility] [address] [place] [address] Judie Carreno PharmD Pharmacist Medication Management ([facility] follow-up - [facility] patient - pain) 09/26/2023 9:00 AM CDT Office Visit [facility] [address] [place] [address] Facundo Mijares MD Consult (Left ankle pain started 09/13/2023 after doing pool heel raises/) 09/26/2023 Travel 09/25/2023 2:00 PM CDT Procedure Only [facility] [address] [place] [address] Tyler Parson L Ac Acupuncture from Last 3 Months Immunizations Name Administration [...] PHQ-2 Answer Date Recorded PHQ-2 TOTAL SCORE 2 12/12/2023 Social Connections Answer Date Recorded Frequency of [...] Sign Reading Time Taken Comments Blood Pressure 93/67 12/17/2023 9:09 AM CDT Pulse 68 12/17/2023 9:09 AM CDT Temperature 36.7 ??C (98.1 ??F) 12/17/2023 9:09 AM CD T Respiratory Rate 16 04/01/2022 3:21 PM UNDER TRIMMER Oxygen Saturation 97% 12/17/2023 9:09 AM CDT Inhaled Oxygen Concentration - - Weight 74.6 kg (164 lb 8 oz) 11/19/2023 4:05 PM CDT Height 174 cm (5' 8.5) 04/14/2023 2:10 PM UNDER TRIMMER Body Mass Index 24.65 04/14/2023 2:10 PM UNDER TRIMMER Plan of Treatment Upcoming Encounters Date Type Department Care Team (Late st Contact Info) Description 01/06/2024 1:00 PM CDT Phone Office Visit [facility] [address] [place] [phone] Keiko Downs LICSW [address] [place] [address] 01/16/2024 1:00 PM CDT Procedure Only [address] [address] Tyler Parson L Ac [address] [place] [address] 01/21/2024 2:00 PM CDT Pharmacist Medication Management [address] [address] Judie Carreno, PharmD [address] [place] [address] 01/23/2024 1:00 PM CDT Procedure Only [address] [address] Tyler Parson L Ac [address] [place] [address] 01/30/2024 1:00 PM CDT Procedure Only [facility] [address] [place] [address] Tyler Parson L Ac [address] [facility] [place] [address] 02/06/2024 11:00 AM CDT Procedure Only [facility] [address] [place] [address] Tyler Parson L Ac [address] [facility] [place] [address] 02/13/2024 1:00 PM CDT Procedure Only [facility] [address] [place] [address] Tyler Parson L Ac [address] [facility] [place] [address] 02/27/2024 1:00 PM CDT Procedure Only [facility] [address] [place] [address] Tyler Parson L Ac [address] [facility] [place] [address] 03/05/2024 11:00 AM CDT Procedure Only [facility] [address] [place] [address] Tyler Parson L Ac [address] [place] [address] 03/12/2024 11:15 AM CDT Phone Office Visit [facility] [address] [place] [address] Freda Serrano MD [address] [place] [address] 03/12/2024 1:00 PM CDT Procedure Only [facility] [address] [place] [address] Tyler Parson L Ac [address] [facility] [place] [address] 03/19/2024 10:30 AM UNDER TRIMMER Procedure Only [facility] [address] [place] [address] Tyler Parson, [place] Ac [address] [facility] [place] [address] 03/26/2024 1:00 PM UNDER TRIMMER Procedure Only [facility] [address] [place] [address] Tyler Parson L Ac [address] [facility] [place] [address] 04/02/2024 1:00 PM UNDER TRIMMER Procedure Only [facility] [address] [place] [address] Tyler Parson L Ac [address] [facility] [place] [address] 04/07/2024 10:00 AM UNDER TRIMMER Procedure Only [facility] [address] [place] [address] Tyler Parson L Ac [address] [facility] [place] [address] 04/12/2024 2:00 PM UNDER TRIMMER Procedure Only [facility] [address] [place] [address] Tyler Parson L Ac [address] [facility] [place] [address] 04/23/2024 1:00 PM UNDER TRIMMER Procedure Only [facility] [address] [place] [address] Tyler Parson L Ac [address] [place] [address] 04/30/2024 1:00 PM UNDER TRIMMER Procedure Only [facility] [address] [place] [address] Tyler Parson L Ac [address] [place] [address] 05/07/2024 1:00 PM UNDER TRIMMER Procedure Only [facility] [address] [place] [address] Tyler Parson L Ac [address] [place] [place] [address] Health Maintenance Due Date Last Done Comments Influenza for age 50-64 01/11/2024 03/16/20, 03/27/2021, 02/24/2020, Additional history exists BMI (ht and wt on same day) for age 18+ 04/14/2024 04/14/2023, 06/06/2022, 03/26/2022, Additional history exists Mammogram for age 45-75 07/31/2024 08/01/19 24, 05/13/2022, 05/10/2021, Additional history exists Depression screening for age 12+ 12/11/2024 12/12/2023, 12/12/2023, 11/19/2023, Additional history exists Tetanus booster 05/31/2026 05/31/2016, 09/30/2005 Pap test for age 21-65 11/03/2026 4, 11/04/2023, 10/04/2022, Additional history exists Lipids for [...] Diagnosis Comments ACUPUNCTURE PLAN OF CARE Routine 12/26/2023 2:15 PM CDT Other low back pain BEDSIDE US STUDY ARCHIVE Routine 12/17/2023 10:43 AM CDT Effusion of elbow joint, left Left elbow pain ACUPUNCTURE PLAN OF CARE Routine 12/12/2023 2:02 PM CDT Other low back pain ACUPUNCTURE PLAN OF CARE Routine 12/05/2023 9:45 AM CDT Other low back pain ACUPUNCTURE PLAN OF CARE Routine 12/05/2023 9:45 AM CDT Other low back pain ACUPUNCTURE PLAN OF CARE Routine 12/05/2023 9:45 AM CDT Other low back pain ACUPUNCTURE PLAN OF CARE Routine 12/05/2023 9:45 AM CDT Other low back pain ACUPUNCTURE PLAN OF CARE Routine 12/05/2023 9:45 AM CDT Other low back pain ACUPUNCTURE PLAN OF CARE Routine 12/05/2023 9:45 AM CDT Other low back pain ACUPUNCTURE PLAN OF CARE Routine 12/05/2023 9:45 AM CDT Other low back pain ACUPUNCTURE PLAN OF CARE Routine 12/05/2023 9:45 AM CDT Other low back pain ACUPUNCTURE PLAN OF CARE Routine 12/05/2023 9:45 AM CDT Other low back pain ACUPUNCTURE PLAN OF CARE Routine 12/05/2023 9:45 AM CDT Other low back pain ACUPUNCTURE PLAN OF CARE Routine 12/05/2023 9:45 AM CDT Other low back pain ACUPUNCTURE PLAN OF CARE Routine 12/05/2023 9:45 AM CDT Other low back pain ACUPUNCTURE PLAN OF CARE Routine 12/05/2023 9:45 AM CDT Other low back pain ACUPUNCTURE PLAN OF CARE Routine 12/05/2023 9:45 AM CDT Other low back pain ACUPUNCTURE PLAN OF CARE Routine 12/05/2023 9:45 AM CDT Other low back pain ACUPUNCTURE PLAN OF CARE Routine 12/05/2023 9:45 AM CDT Other low back pain ACUPUNCTURE PLAN OF CARE Routine 12/05/2023 9:45 AM CDT Other low back pain ACUPUNCTURE PLAN OF CARE Routine 12/05/2023 9:45 AM CDT Other low back pain ACUPUNCTURE PLAN OF CARE Routine 12/05/2023 9:45 AM CDT Other low back pain ACUPUNCTURE PLAN OF CARE Routine 12/05/2023 9:45 AM CDT Other low back pain ACUPUNCTURE PLAN OF CARE Routine 12/05/2023 9:45 AM CDT Other low back pain NM BONE SCAN 3 PHASE Routine 12/04/2023 12:00 AM CDT Blunt trauma of right thigh, subsequent encounter Right thigh pain 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 ACUPUNCTURE PLAN OF CARE Routine 11/28/2023 3:20 [...] EVENT Routine 11/04/2023 3: 50 PM CDT ADDRESSING MACHINE OPERATOR THIN PREP PAP SCREEN IMAGED Routine 11/04/2023 [...] REFLEX MEASURED LDL Routine 07/08/2023 12:07 PM UNDER TRIMMER Hyperlipidemia, unspecified hyperlipidemia type SCAN-COLONOSCOPY 01/28/2022 1:00 PM CDT ANTI HIV 1/2 Routine 06/01/2018 4:02 PM UNDER TRIMMER Exposure to STD ANTI HCV Routine 09/30/2017 5:38 PM CDT STD exposure from Last 3 Months or Most Recently Relevant to Health Maintenance Results * BEDSIDE US STUDY ARCHIVE (12/17/2023 10:43 AM CDT) Narrative Maureen Martinez - 12/17/2023 10:43 AM CDT The patient was seen for ultrasound guided injection by Dr. Facundo Mijares. Ultrasound was not used for diagnostic purposes, but to guide the needle placement and document the position of the injection. ?? See patient's EPIC encounter for the detail of the procedure; see SUSANNA for saved images of the injection. Facundo Mijares MD PROCEDURE ORD * NM BONE SCAN 3 PHASE (12/04/2023 12:00 AM CDT) Anatomical Region Laterality Modality SKELETON Other Facundo Mijares MD NM * TRICHOMONAS, CARMELO, AND BACTERIAL VAGINOSIS BY JUAN (11/27/2023 11:30 AM CDT) CARMELO SPECIES Negative Negative 4 3:30 AM CDT [facility] CARMELO GLABRATA Negative Negative 11/28/2023 3:30 AM CDT [facility] TRICHOMONAS VVA Negative Negative 4 3:30 AM CDT [facility] BACTERIAL VAGINOSIS Negative Negative 11/28/2023 3:30 AM CDT [facility] Other VAGINAL SWAB / Unknown Non-Blood / Unknown 11/27/2023 11:30 AM CDT 11/27/2023 1:35 PM CDT Kourtney GUERRERO MICROBIOLOGY [facility] [address] [place] [address], [place] * (ABNORMAL) UA W/ SEDIMENT EXAM REFLEXED PER CRITERIA (11/27/2023 11:15 AM CDT) COLOR Yellow Yellow Color 11/27/2023 11:23 AM CDT [facility] CLARITY Clear Clear Clarity 11/27/2023 11:23 AM CDT [facility] SPECIFIC GRAVITY,URINE 1.015 1.010, 1.015, 1.020, 1.025 11/27/2023 11:23 AM CDT [facility] PH,URINE 5.0(A) 6.0, 7.0, 8.0, 5.5, 6.5, 7.5, 8.5 11/27/2023 11:23 AM CDT [facility] UROBILINOGEN, QUALITATIVE Normal Normal EU/dl 11/27/2023 11:23 AM CDT [facility] PROTEIN, URINE Negative Negative mg/dL 11/27/2023 11:23 AM CDT [facility] GLUCOSE, URINE Negative Negative mg/dL 11/27/2023 11:23 AM CDT [facility] KETONES,URINE Negative Negative mg/dL 11/27/2023 11:23 AM CDT [facility] BILIRUBIN,URI NE Negative Negative 11/27/2023 11:23 AM CDT [facility] OCCULT BLOOD,URINE Negative Negative 11/27/2023 11:23 AM CDT [facility] NITRITE Negative Negative 11/27/2023 11:23 AM CDT [facility] LEUKOCYTE ESTERASE Negative Negative 11/27/2023 11:23 AM CDT [facility] Urine URINE SPECIMEN / Unknown Non-Blood / Unknown 11/27/2023 11:15 AM CDT 11/27/2023 11:20 AM CDT Kourtney GUERRERO URINE [facility] [address] [place] [address], * LAB TRACKING EVENT (11/04/2023 3:50 PM CDT) Other (Other) Client Collect / Unknown 11/04/2023 3:50 PM CDT 11/05/2023 4:31 PM CDT Corine Guillaume MD LAB BILL ONLY [facility] [address] [place] [address], * ADDRESSING MACHINE OPERATOR THIN PREP PAP SCREEN IMAGED (11/04/2023 3:50 PM CDT) Case Report Gynecologic Cytology Report ? Case: [id number] ? Authorizing Provider: ??Corine Guillaume MD ?Collected: ? 11/04/2023 1550 ? Ordering Location: ? [facility] ?Received: ?11/06/2023 0926 ? First Screen: ?Kathy Stephens ? Specimen: ?ADDRESSING MACHINE OPERATOR ThinPrep Vial Screening, Cervical ? 11/12/2023 1:05 PM CDT [facility] INTERPRETATION/ RESULT NEGATIVE FOR INTRAEPITHELIAL LESION OR MALIGNANCY (NIL) (none) 11/12/2023 1:05 PM CDT [facility] IMEN ADEQUACY Satisfactory for evaluation Endocervical component present 11/12/2023 1:05 PM CDT [facility] HPV REQUEST HPV and PAP 11/12/2023 1:05 PM CDT [facility] Last Pap Date 11/12/2023 1:05 PM CDT [facility] Comment:09/2017 Last Pap Result NIL 1:05 PM CDT [facility] Abnormal Pap or Hubert Bx in last 5 years No 11/12/2023 1:05 PM CDT [facility] Menstrual Status Postmenopausal 11/12/2023 1:05 PM CDT [facility] Hubert Bx Done Today No 11/12/2023 1:05 PM CDT [facility] Additional Information 11/12/2023 1:05 PM CDT [facility] Comment: Interpreted at [facility] - [address], [place] [address] Automated Review Successful 11/12/2023 1:05 PM CDT [facility] Comment:Specimen processed s uccessfully by automated marine structural welder device, ThinPrep Imaging System, [employer] ANCILLARY TESTING ADDRESSING MACHINE OPERATOR HPV Ordered, Please see separate report 11/12/2023 1:05 PM CDT [facility] Note The pap test is a [...] and malignant lesions. 11/12/2023 1:05 PM CDT [facility] Other (Cervical) 11/04/2023 3:50 PM CDT 11/06/2023 9:26 AM CDT Corine Guillaume MD PATHOLOGY/CYTOLOGY Performing Organization Address [facility] Co de Phone Number [facility] [address] [place] [address], [place] * HPV HIGH RISK (11/04/2023 3:50 PM CDT) TYPE 16 Negative Negative 11/07/2023 4:00 PM CDT [facility] TYPE 18 Negative Negative 11/07/2023 4:00 PM CDT [facility] OTHER HIGH RISK TYPES Negative Negative 11/07/2023 4:00 PM CDT [facility] Other (Cervical) 11/04/2023 3:50 PM CDT 11/06/2023 9:26 AM CDT Narrative [facility] - 11/07/2023 4:00 PM CDT HPV types 16, 18, 31, 33, 35, 39, 45, 51, 52, 56, 58, 59, 66 and 68 DNA were undetectable or below the pre-set threshold. Methodology: Jacek Karen 4800 HPV Test Corine Guillaume MD MICROBIOLOGY Performing Organization Address [facility] Co de Phone Number [facility] [address] [address], [place] * XR FEMUR 2 VIEWS RIGHT [...] (Electronically Signed) Nivia Bruno MD [place] * XR MAMMO EVA BILAT SCREEN (08/01/2023 [...] contact your health care provider. XR MAMMO EAV BILAT SCREEN [[id number]] CLINICAL HISTORY: ??This is an asymptomatic 63 y.o. patient. INDICATION FOR EXAM: Mammogram Screening. TECHNIQUE: CC & MLO views were obtained. ??This study was evaluated with the assistance of Computer-Aided Detection. Breast Tomosynthesis was used in interpretation. COMPARISON FILM: Yes 05/13/22 [facility] 05/10/21 [facility] FINDINGS: ??The breasts have scattered areas of fibroglandular density. There are no dominant masses, suspicious micro calcifications or areas of architectural distortion. Nivia Bruno MD MAMMO * (ABNORMAL) LIPID PANEL W REFLEX MEASURED LDL (07/08/2023 12:07 PM UNDER TRIMMER) CHOLESTEROL,TOTAL 285(H) 100 - 199 mg/dL 07/08/2023 9:55 PM UNDER TRIMMER [facility] Comment: Cholesterol, Total Reference Ranges Desirable <200 mg/dL Borderline 200-239 mg/dL High >=240 mg/dL TRIGLYCERIDES 97 <150 mg/dL 07/08/2023 9:55 PM UNDER TRIMMER [facility] HDL CHOLESTEROL 76 >40 mg/dL 9:55 PM UNDER TRIMMER [facility] NON-HDL CHOLESTEROL 209(H) <145 mg/dl 07/08/2023 9:55 PM UNDER TRIMMER [facility] CHOL/HDL RATIO 3.75 <4.50 07/08/2023 9:55 PM UNDER TRIMMER [facility] LDL CHOLESTEROL 190(H) <=130 mg/dL 07/08/2023 9:55 PM [facility] VLDL CHOLESTEROL 19 <=30 mg/dL 07/08/2023 9:55 PM [facility] PROVIDER ORDERED STATUS RANDOM 07/08/2023 9:55 PM [facility] Blood BLOOD SPECIMEN / Unknown Venipuncture / Unknown 07/08/2023 12:07 PM UNDER TRIMMER 07/08/2023 12:07 PM [facility] Nivia Bruno MD CHEMISTRY [facility] [address] [place] [address], [place] * SCAN-COLONOSCOPY (01/28/2022 1:00 PM CDT) Narrative Procedure Note Edison Ceron MD - 01/28/2022 12:02 PM CDT [facility] [address], [address], [place] [address] Patient Name: Juliette Brown Gender: Female Exam Date: 01/28/2022 Visit Number: [id number] Age: 61 Years 9 Months Date of : 1960 Attending MD: Edison Ceron MD Medical Record#: [id number] ----- Procedure: Colonoscopy Indications: Recent history of [...] Race: White Ethnicity: Not or Preferred Language: Salvadorean cc: Nivia Bruno MD [facility] [phone] Edison Ceron MD OTHER * ANTI HIV 1/2 (06/01/2018 4:02 PM UNDER TRIMMER) HIV-1/HIV-2 ANTIBODY Non-Reacti ve Non-Reacti ve 06/01/2018 8:08 PM UNDER TRIMMER [facility] Comment:HIV-1 p24 and HIV-1/ HIV-2 Ab not detected. Blood BLOOD SPECIMEN / Unknown Venipuncture / Unknown 06/01/2018 4:02 PM UNDER TRIMMER 06/01/2018 4:02 PM UNDER TRIMMER Nivia Bruno MD SEND OUTS [facility] [address] [place] [address], * ANTI HCV (09/30/2017 5:38 PM CDT) HEPATITIS C ANTIBODY Non-React mathieu Non-React mathieu 10/01/2017 2:41 PM CDT [facility] Comment:Antibodies to HCV no t detected; does not exclude the possibility of exposure to HCV. Blood BLOOD SPECIMEN / Unknown Venipuncture / Unknown 09/30/2017 5:38 PM CDT 09/30/2017 5:38 PM CDT Kourtney GUERRERO SEND OUTS [facility] [address] [place] [address], from Last 3 Months or Most Recently Relevant to Health Maintenance Advance Directives Documents on File Type Date Recorded Patient Lay Up Operator Expl anation Healthcare Directive 04/01/2022 022 * [...] 6:43 PM 06/10/2011 6:41 PM Care Teams Farmworker Rice Relationship Specialty Start Date End Date Nivia Bruno MD [address] [place] [address] PCP - General Family Practice 07/01/19 Judie Carreno, Zoraida [address] [place] [address] [address] [address] Pharmacist Medication Management Pharmacology 05/28/23 05/28/25
--- OUTSIDE RECORDS SUMMARY | 2023-12-26 20:34 | XMS_ITS | Clinical Summary ---
Author Organization [employer] [facility] [facility] Address [address] [place] [address] Care Team Providers Care Tile Ditcher Name Role Phone Needs Pcp, Assignment Primary Care Provider [phone] Source Comments You are receiving this document as you are listed as the primary care provider,follow-up provider, or the patient has been referred to you for consultation.This is in compliance with the Medicare andOhiohealth Hardin Memorial Hospitalcaid EHR Incentive Program,which states Providers who transition their patient to another setting of careor provider of care or refers their patient to another provider of care shouldprovide summary care record for each transition of care or referral. [employer] Allergies Active Allergy Reactions Criticality Noted Date [...] (OCEAN) 0.65 % nasal solution Place 1 [place] into both nostrils every 2 hours as needed for Congestion. 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 Overview (01/01/2017): LW Onset: 1970s ; Arthritis Juvenile Rheumatoid Chronic Resolved Problems Problem Noted Date Diagnosed Date Resolved Date Diarrhea 07/15/2019 07/17/2019 Encounters Date Type Department Care Team Description 10/08/2023 2:15 PM CDT E-Visit [address] [address] Leif Stewart PA-C Chief Comp: Follow-up, NOS 10/08/2023 Orders Only HIM DEPARTMENT Provider, MD Kane 10/01/2023 12:45 PM CDT Office Visit [address] [address] Leif Stewart PA-C Age-related osteoporosis without current [...] (145 lb 12.8 oz) 07/16/2019 9:00 PM KETTLE FIRER Height 172.7 cm (5' 8) 07/15/2019 9:30 PM KETTLE FIRER Body Mass Index 22.17 07/15/2019 9:30 PM KETTLE FIRER Plan of Treatment Health Maintenance Due Date [...] this topic Medical Devices Implanted Type Area Catering Administrative Assistant Device Identifier Shelf Expiration Date Model / Serial / Lot Chip Canc Crouton 30cc - [id number] Implanted:Qty: 1 on 07/07/2019 by Tobias Martin MD at [facility] DEVICE Right: LEG [employer] - [employer] 06/30/2023 [id number] / [id number] / [id number] Chip Canc Crouton 30cc - [id number] Implanted:Qty: 1 on 07/07/2019 by Tobias Martin MD at [facility] DEVICE Right: LEG [employer] - [employer] 06/30/2023 [id number] / [id number] / [id number] Procedures Procedure Name Priority Date/Time Associated Diagnosis Comments BONE DENSITY 10/08/2023 HIV 1/2 AG/AB 4TH GEN Routine 08/25/2018 11:24 AM CDT Multiple joint pain HEPATITIS C ANTIBODY, WITH REFLEX Routine 08/25/2018 11:24 AM CDT Multiple joint pain MM MAMMOGRAM SCREENING BILAT W CAD Routine 10/27/2007 2:51 PM CDT from Last 3 Months or Most Recently Relevant to Health Maintenance Results * BONE DENSITY (10/08/2023) Anatomical Region Laterality Modality Other Interface Provider DUMMY/OTHER/AR * HIV 1/2 Ag/Ab 4th Generation (08/25/2018 11:24 AM CDT) HIV 1/2 Antigen/Antib jorje (4th generation) Negative (Non Reactive) Negative (Non Reactive) 08/25/2018 4:34 PM CDT [facility] Comment:HIV-1 p24 Antigen an d HIV-1/HIV-2 Antibody not detected Blood Venipuncture / Unknown 08/25/2018 11:24 AM CDT 08/25/2018 11:24 AM CDT Carin Rainey MD LAB_1 Performing Organization Address [facility] Co de Phone Number [facility] [address] * HCAB - Hepatitis C Virus Paula with Reflex In-House (08/25/2018 11:24 AM CDT) Hepatitis C Antibody Negative (Non Reactive) Negative (Non Reactive) 08/25/2018 4:34 PM CDT [facility] Comment:Antibodies to HCV no t detected. Does not exclude the possiblity of exposure to HCV. Blood Venipuncture / Unknown 08/25/2018 11:24 AM CDT 08/25/2018 11:24 AM CDT Carin Rainey MD LAB_1 Performing Organization Address [facility] de Phone Number [facility] [address] [place] [address] * MM Mammogram Screening Bilat W CAD (10/27/2007 2:51 PM CDT) Anatomical Region Laterality Modality Breast Bilateral Mammography Impressions 10/29/2007 3:15 PM CDT : BILATERAL BREASTS - Category 1 Negative, no evidence of malignancy. Normal interval follow-up is recommended in 12 months. OVERALL ASSESSMENT - NEGATIVE END OF IMPRESSION Dictating LUL BRADY MD Narrative 10/29/2007 3:15 PM CDT Comparison is made to films from 07/27/2005 (bilateral). ??There is no significant interval change. Bilateral Breast Findings: The breasts are heterogeneously dense. This may lower the sensitivity of mammography. ??No significant masses, calcifications or other abnormalities are seen. Procedure Note Lul Monteiro - 07/19/2016 Comparison is made to films from 07/27/2005 (bilateral). There is no significant interval change. Bilateral Breast Findings: The breasts are heterogeneously dense. This may lower the sensitivity of mammography. No significant masses, calcifications or other abnormalities are seen. IMPRESSION : BILATERAL BREASTS - Category 1 Negative, no evidence of malignancy. Normal interval follow-up is recommended in 12 months. OVERALL ASSESSMENT - NEGATIVE END OF IMPRESSION Dictating LUL BRADY MD Lizzy Chun DO RAD [facility] from Last 3 Months or Most Recently Relevant to Health Maintenance Advance Directives Documents on File Type Date Recorded Patient Solidworks Drafter Expl anation HEALTHCARE DIRECTIVE 07/10/2019 ADVANCE D DIRECTIVE 07/10/2019 * Full Code (Latest Code Status on File) Date Activated Date Inactivated Comments 07/15/2019 9:18 PM 07/20/2019 4:20 PM * Full Code Date Activated Date Inactivated Comments 07/07/2019 4:33 PM 07/10/2019 6:22 PM Care Teams Tile Ditcher Relationship Specialty Start Date End Date Needs Pcp, [place] [address] PCP - General 02/28/21
--- OUTSIDE RECORDS SUMMARY | 2023-12-26 20:34 | XMS_ITS | Encounter Summary ---
Author Organization [facility] Address [address] [place] [address]. [place] [address] Care Team Providers Care Manager Surgical Name Role Phone Kelsi Handy MD Unavailable [phone] Nivia Bruno MD Primary Care Provider [phone] Encounter Details Date Type Department Care Team ([facility] Contact Info) Description 09/25/2021 Telephone [facility] Behavior[facility] Health Intake [address] [place] [address] Generic, Behavioral Intake, Social History [...] Patient Name: ?? Location of programming: [facility] Start Date: 09/27/21 Group (BHxxxxx on #days of the week# at #start time to end time#): 55+ clinic 1 Provider (name of MD):kerry Number of visits to be scheduled: 1 Duration of Appointment in minutes: 120 mins Visit Type (Robert - 0411 / Zoom - 2652 / In-person or Treatment - 870) :zoom 2657 Additional notes: documented in this encounter Plan of Treatment Not on file documented as of this encounter Visit Diagnoses Not on filedocumented in this encounter Additional Health Concerns Assessment Noted Time PHQ-9 Depression Total Score: 7 06/14/19 22 10:59 AM MEDICAL RECORDS ASSISTANT documented as of this encounter Care Teams Manager Surgical Relationship Specialty Start Date End Date Nivia Bruno MD [address] [place] [address] PCP - General 03/22/21 Kelsi Handy MD [address] [place] [address] Assigned OBGYN Provider 04/23/20 3 documented as of this encounter
--- OUTSIDE RECORDS SUMMARY | 2023-12-26 20:34 | XMS_ITS | Encounter Summary ---
Author Organization [employer] Address [address] [address] Care Team Providers Care Instructional Technology Coach Name Role Phone Needs Pcp, Assignment Primary Care Provider [phone] Encounter Details Date Type Department Care Team (Late st Contact Info) Description 07/12/2019 Lab Requisition [facility] [address] [facility] [place] [place] [address] Lul Hunter MD [address] [place], [place] [id number] Encounter for surgical aftercare following surgery on [...] BASIC METABOLIC PANEL Routine 07/13/2019 7:00 AM REMELTER Encounter for surgical aftercare following surgery on the nervous system COMPLETE BLOOD COUNT-NO DIFF Routine 07/13/2019 7:00 AM REMELTER Encounter for surgical aftercare following surgery on the nervous system documented in this encounter Results * (ABNORMAL) Basic Metabolic Panel (07/13/2019 7:00 AM REMELTER) Sodium 136 136 - 145 mmol/L 07/13/2019 12:35 PM REMELTER [facility] Potassium 4.7 3.5 - 5.1 mmol/L 07/13/2019 12:35 PM REMELTER [facility] Chloride 100 98 - 109 mmol/L 07/13/2019 12:35 PM REMELTER [facility] CO2 27 20 - 29 mmol/L 07/13/2019 12:35 PM REMELTER [facility] Anion Gap 9 7 - 16 mmol/L 07/13/2019 12:35 PM REMELTER [facility] Calcium 9.2 8.4 - 10.4 mg/dL 07/13/2019 12:35 PM REMELTER [facility] BUN 18 7 - 26 mg/dL 07/13/2019 12:35 PM REMELTER [facility] Creatinine 0.76 0.55 - 1.02 mg/dL 07/13/2019 12:35 PM REMELTER [facility] GFR, Estimated >60 >60 mL/min/1.7 3m2 07/13/2019 12:35 PM REMELTER [facility] GFR, Est If >60 >60 mL/min/1.7 3m2 07/13/2019 12:35 PM REMELTER [facility] Glucose 105(H) 70 - 100 mg/dL 07/13/2019 12:35 PM REMELTER [facility] Comment:The given reference range is for the fasting state. Non-fasting reference range for glucose is 70 - 180 mg/dL. Hours Fasting Unknown 07/13/2019 12:35 PM REMELTER [facility] Blood Venipuncture / Unknown 07/13/2019 7:00 AM REMELTER 07/13/2019 10:40 AM REMELTER Lul Hunter MD LAB_1 [facility] [address] * (ABNORMAL) Complete Blood Count-No Diff (07/13/2019 7:00 AM REMELTER) WBC 4.7 3.5 - 10.5 x10(9)/L 07/13/2019 11:17 AM REMELTER [facility] RBC 3.19(L) 3.90 - 5.03 x10(12)/L 07/13/2019 11:17 AM REMELTER [facility] Hemoglobin 10.1(L) 12.0 - 15.5 g/dL 07/13/2019 11:17 AM REMELTER [facility] HCT 31.2(L) 34.9 - 44.5 % 07/13/2019 11:17 AM REMELTER [facility] MCV 97.8 80.0 - 100.0 fL 07/13/2019 11:17 AM REMELTER [facility] MCH 31.7 27.6 - 33.3 pg 07/13/2019 11:17 AM REMELTER [facility] MCHC 32.4 31.5 - 35.2 g/dL 07/13/2019 11:17 AM REMELTER [facility] RDW 11.7(L) 11.9 - 15.5 % 07/13/2019 11:17 AM REMELTER [facility] Platelets 221 150 - 450 x10(9)/L 07/13/2019 11:17 AM REMELTER [facility] Automated NRBC 0 <=0 /100 WBC 07/13/2019 11:17 AM REMELTER [facility] Blood Venipuncture / Unknown 07/13/2019 7:00 AM REMELTER 07/13/2019 10:44 AM REMELTER Lul Hunter MD LAB_1 Performing Organization Address City/State/[facility] Co de Phone Number [facility] [address] [place] [address], [facility] documented in this encounter Visit Diagnoses Diagnosis Encounter for surgical aftercare following surgery on the nervous system documented in this encounter Care Teams Instructional Technology Coach Relationship Specialty Start Date End [place] [address] PCP - General 02/28/21 documented as of this encounter
--- OUTSIDE RECORDS SUMMARY | 2023-12-26 20:34 | XMS_ITS | Encounter Summary ---
Author Organization [facility] Address [address], [place] [address] Care Team Providers Care Home Health Caregiver Name Role Phone Needs Pcp, Assignment Primary Care Provider [phone] Reason for Visit * Auth/Cert Specialty Diagnoses / Procedures Referred By Contac t Referred To Contact Diagnoses Diarrhea of presumed infectious origin Fibromyalgia Diarrhea of presumed infectious origin Fibromyalgia Diarrhea of presumed infectious origin Fibromyalgia Referral ID Status Reason Start Date Expiration Date Visits Re quested Visits Authorized [id number] 1 1 Encounter Details Date Type Department Care Team (Latest Contact Info) Description 07/15/2019 Lab Requisition [facility] [address] [facility] [place] [address] Lul Hunter MD [address] [place], [place] [id number] Enterocolitis due to Clostridium difficile, not specified [...] C.DIFFICILE TOXIN,MOLECULAR DETECTION Routine 07/15/2019 10:00 PM WHARF TENDER HELPER Enterocolitis due to Clostridium difficile, not specified as recurrent documented in this encounter Results * (ABNORMAL) C.Difficile Toxin,Molecular Detection, (07/15/2019 10:00 PM WHARF TENDER HELPER) C.difficile by PCR Detected( A) Not Detected 07/15/2019 11:30 PM WHARF TENDER HELPER [facility] Stool Non-blood Collection / Unknown 07/15/2019 10:00 PM WHARF TENDER HELPER 07/15/2019 10:24 PM WHARF TENDER HELPER Narrative [facility] - 07/15/2019 11:30 PM WHARF TENDER HELPER Methodology: Qualitative real-time PCR assay to detect the Clostridium difficile toxin B gene. Lul Hunter MD LAB_1 [facility] [address] [place], [place] [address] [place] [address] documented in this encounter Visit Diagnoses Diagnosis Enterocolitis due to Clostridium difficile, not specified as recurrent documented in this encounter Care Teams Home Health Caregiver Relationship Specialty Start Date End Date Needs Pcp, [place] [address] PCP - General 02/28/21 documented as of this encounter
--- OUTSIDE RECORDS SUMMARY | 2023-12-26 20:34 | XMS_ITS | Encounter Summary ---
Author Organization [place] Address [facility] [place] [address] Care Team Providers Care Engineering Technician Parking Name Role Phone Heladio Martins MD Primary Care Provider Kelsi Glez MD Unavailable [phone] Nivia Bruno MD Primary Care Provider [phone] Encounter Details Date Type Department Care Team (Latest Contact Info) Description 03/06/2021 [facility] Treatment Plan [facility] [address] [place] [phone] Dav Tierney MD [address] [place] [address] Megan Ruiz, SHANNON Major depressive [...] documented as of this encounter Care Teams Engineering Technician Parking Relationship Specialty Start Date End Date Heladio Martins MD PCP - General Internal Medicine 03/05/16 03/21/21 Nivia Bruno MD [address] [facility] [place] [address] PCP - General 03/22/21 Kelsi Handy MD [address] [place] [address] Assigned OBGYN Provider 04/23/20 3 documented as of this encounter
--- OUTSIDE RECORDS SUMMARY | 2023-12-26 20:34 | XMS_ITS | Encounter Summary ---
Author Organization [facility] Address [address] [place] [address] Care Team Providers Care Underwater Roboticist Name Role Phone Needs Pcp, Assignment Primary Care Provider [phone] Encounter Details Date Type Department Care Team (Late st Contact Info) Description 07/16/2019 Lab Requisition [facility] [address] [facility]. [place], [place] [id number] Lul Hunter MD [address] [place], [place] [id number] Encounter for surgical aftercare following surgery on [...] organs documented in this encounter Care Teams Underwater Roboticist Relationship Specialty Start Date End Date Needs Pcp, Bretha [facility]Z [facility], [place] [address] PCP - General 02/28/21 documented as of this encounter
--- OUTSIDE RECORDS SUMMARY | 2023-12-26 20:34 | XMS_ITS | Clinical Summary ---
Author Organization [place] Address [address] [place] [address] Care Team Providers Care Shake Out Worker Name Role Phone Nivia Bruno MD Primary Care Provider [phone] Allergies Active Allergy Reactions Criticality Noted Date [...] Take 1 tablet by mouth 07/22/2014 Active [place]-3 1000 MG CAPS 04/02/2016 Acti ve Saline (SODIUM CHLORIDE) 0.65 % SOLN [place] 1 spray in nostril 01/28/2015 Active traZODone [...] BASIC METABOLIC PANEL Routine 06/23/2017 6:00 AM PIE FILLING MIXER from Last 3 Months or Most Recently Relevant to Health Maintenance Results * Basic metabolic panel (06/23/2017 6:00 AM PIE FILLING MIXER) Sodium 139 136 - 145 mmol/L 06/23/2017 10:13 AM [facility] Potassium 4.2 3.5 - 5.0 mmol/L 06/23/2017 10:13 AM [facility] Chloride 103 98 - 107 mmol/L 06/23/2017 10:13 AM [facility] Carbon Dioxide (CO2) 29 22 - 31 mmol/L 06/23/2017 10:13 AM [facility] Anion Gap 7 5 - 18 mmol/L 06/23/2017 10:13 AM [facility] Glucose 105 70 - 125 mg/dL 06/23/2017 10:13 AM [facility] Calcium 9.4 8.5 - 10.5 mg/dL 06/23/2017 10:13 AM [facility] Urea Nitrogen 16 8 - 22 mg/dL 06/23/2017 10:13 AM [facility] Creatinine 0.69 0.60 - 1.10 mg/dL 06/23/2017 10:13 AM [facility] GFR Estimate If Black >60 >60 mL/min/1.7 3m2 06/23/2017 10:13 AM PIE FILLING MIXER [facility] GFR Estimate >60 >60 mL/min/1.7 [facility] 06/23/2017 10:13 AM [facility] Blood specimen (specimen) STRUCTURE OF LEFT UPPER LIMB / Unknown Venipuncture / Unknown 06/23/2017 6:00 AM PIE FILLING MIXER 06/23/2017 9:50 AM PIE FILLING MIXER Narrative [facility] - 06/23/2017 10:13 AM PIE FILLING MIXER Fasting Glucose reference range is 70-99 mg/dL per [place] Diabetes Association (ADA) guidelines. Rosmery Simpson MD LAB - BLOOD ORDER [facility] [address] [place] [address], [facility] [address] [address] from Last 3 Months or Most Recently Relevant to Health Maintenance Advance Directives For more information, please contact: [phone] * Full Code (Latest Code Status on File) Date Activated Date Inactivated Comments 04/16/2016 1:58 AM 04/22/2016 3:55 PM Care Teams Shake Out Worker Relationship Specialty Start Date End Date Nivia Bruno MD [facility] - General 03/22/21
--- OUTSIDE RECORDS SUMMARY | 2023-12-26 20:34 | XMS_ITS | Referral Summary ---
Author Organization [place] Address [address] [place] [address] Care Team Providers Care Shipper Name Role Phone Nivia Bruno MD Primary Care Provider [phone] Allergies Active Allergy Reactions Criticality Noted Date [...] Take 1 tablet by mouth 07/22/2014 Active [place]-3 1000 MG CAPS 04/02/2016 Acti ve Saline (SODIUM CHLORIDE) 0.65 % SOLN [place] 1 spray in nostril 01/28/2015 Active traZODone [...] BASIC METABOLIC PANEL Routine 06/23/2017 6:00 AM HEALTH INSURANCE SALES AGENT from Last 3 Months or Most Recently Relevant to Health Maintenance Results * Basic metabolic panel (06/23/2017 6:00 AM HEALTH INSURANCE SALES AGENT) Sodium 139 136 - 145 mmol/L 06/23/2017 10:[address] [facility] Potassium 4.2 3.5 - 5.0 mmol/L 06/23/2017 10:[address] [facility] Chloride 103 98 - 107 mmol/L 06/23/2017 10:[address] [facility] Carbon Dioxide (CO2) 29 22 - 31 mmol/L 06/23/2017 10:[address] [facility] Anion Gap 7 5 - 18 mmol/L 06/23/2017 10:[address] [facility] Glucose 105 70 - 125 mg/dL 06/23/2017 10:[address] [facility] Calcium 9.4 8.5 - 10.5 mg/dL 06/23/2017 10:13 AM [facility] Urea Nitrogen 16 8 - 22 mg/dL 06/23/2017 10:[address] [facility] Creatinine 0.69 0.60 - 1.10 mg/dL 06/23/2017 10:[address] [facility] GFR Estimate If Black >60 >60 mL/min/1.7 3m2 06/23/2017 10:13 AM HEALTH INSURANCE SALES AGENT [facility] GFR Estimate >60 >60 mL/min/1.7 2 06/23/2017 10:[address] [facility] Blood specimen (specimen) STRUCTURE OF LEFT UPPER LIMB / Unknown Venipuncture / Unknown 06/23/2017 6:00 AM HEALTH INSURANCE SALES AGENT 06/23/2017 9:50 AM HEALTH INSURANCE SALES AGENT Narrative [facility] - 06/23/2017 10:13 AM HEALTH INSURANCE SALES AGENT Fasting Glucose reference range is 70-99 mg/dL per [place] Diabetes Association (ADA) guidelines. Rosmery Simpson MD LAB - BLOOD ORDER [facility] [address] [address], [facility] [address] [address] from Last 3 Months or Most Recently Relevant to Health Maintenance Advance Directives For more information, please contact: [phone] * Full Code (Latest Code Status on File) Date Activated Date Inactivated Comments 04/16/2016 1:58 AM 04/22/2016 3:55 PM Care Teams Shipper Relationship Specialty Start Date End Date Nivia Bruno MD PCP - General 03/22/21
--- OUTSIDE RECORDS SUMMARY | 2023-12-26 20:34 | XMS_ITS | Encounter Summary ---
Author Organization [place] Address [address] [place] [address] Care Team Providers Care Sql Consultant Name Role Phone Kelsi Handy MD Unavailable [phone] Nivia Bruno MD Primary Care Provider [phone] Encounter Details Date Type Department Care Team ([facility] Contact Info) Description 06/13/2021 Telephone [facility] Behavioral Health Intake [address] [place] [address] Generic, Behavioral Intake, Social History [...] KETTY Lynn sent at 06/29/2021 11:41 AM TOOL ANALYST ----- Regarding: new start Clinic 1 on 07/05 Scheduling Request Patient Name: Juliette Brown Location of programmin+ Start Date: June Group: Clinic 1 on at 1:00 to 3:00PM Attending Provider (MD): 12 Number of visits to be scheduled: 12 Duration of Appointment in minutes: 120 min Visit Type: Zoom - 2657 Additional notes: ANALYST * Telephone Encounter - Jen Serrano - 06/13/2021 9:38 AM CST ----- Message from SHANNON Warner sent at 06/13/2021 9:12 AM TOOL ANALYST ----- Regarding: add appointment Scheduling Request Patient Name: ?? Location of programming: [facility] 55+ Start Date:06/13/21 Group (BHxxxxx on #days of the week# at #start time to end time#): 55+ B1 M,W,F 1-4pm Provider (name of MD): Niall Number of visits to be scheduled: 1 Duration of Appointment in minutes: 180 mins Visit Type (Robert - 8552 / Zoom - 9787 / In-person or Treatment - 870) :2657-zoom Additional notes: ANALYST documented in this encounter Plan of Treatment Not on file documented as of this encounter Visit Diagnoses Not on filedocumented in this encounter Additional Health Concerns Assessment Noted Time PHQ-9 Depression Total Score: 7 06/14/19 22 10:59 AM TOOL ANALYST documented as of this encounter Care Teams Sql Consultant Relationship Specialty Start Date End Date Nivia Bruno MD [address] [place] [address] PCP - General 03/22/21 Kelsi Handy MD [address] [place] [address] Assigned OBGYN Provider 04/23/20 3 documented as of this encounter
--- OUTSIDE RECORDS SUMMARY | 2023-12-26 20:34 | XMS_ITS | Encounter Summary ---
Author Organization [place] Address [address] [place] [address] Care Team Providers Care Vacuum Drier Tender Name Role Phone Heladio Martins MD Primary Care Provider Kelsi Glez MD Unavailable [phone] Nivia Bruno MD Primary Care Provider [phone] Encounter Details Date Type Department Care Team ([facility] Contact Info) Description 03/07/2021 [facility] Behavioral Health Intake [address] [place] [phone] Generic, Behavioral Intake, Social History Tobacco Use [...] 03/06/2021 7:37 PM CDT To: Cheyanne Santana [facility], Quentin Hagan, # Subject: Schedule for PHP on Friday Scheduling Request Patient Name: Juliette Brown Location of programming: [facility] Start Date: 03/12 Group: [id number] 9am to 3pm Attending Provider (): Trent Number of visits to be scheduled: 50 Duration of Appointment in minutes: 360 Visit Type: Zoom - 2653 Additional notes: Patient is currently in PHP at [facility]. She has Medicare and BCBS. Please check ifinsurance will cover another PHP program. Patient was given [facility] phone number. * Telephone Encounter - Jen Serrano - 03/07/2021 7:50 AM CDT ----- Message from KETTY Rollins sent at 03/06/2021 7:37 PM CDT ----- Regarding: Schedule for PHP on Friday Scheduling Request Patient Name: Juliette Brown Location of programming: [facility] Start Date: 03/12 Group: [id number] 9am to 3pm Attending Provider (): Cristianoe Number of visits to be scheduled: 50 Duration of Appointment in minutes: 360 Visit Type: Zoom - 2657 Additional notes: Patient is currently in PHP at [facility]. She has Medicare and BCBS. Please check ifinsurance will cover another PHP program. Patient was given [facility] phone number. documented in this encounter Plan of Treatment Not on file documented as of this encounter Visit Diagnoses Not on filedocumented in this encounter Additional Health Concerns Assessment Noted Time PHQ-9 Depression Total Score: 21 021 12:28 PM CDT documented as of this encounter Care Teams Vacuum Drier Tender Relationship Specialty Start Date End Date Heladio Martins MD PCP - General Internal Medicine 03/05/16 03/21/21 Nivia Bruno MD [address] [facility] [place] [place] [address] PCP - General 03/22/21 Kelsi Handy MD [address] [place] [address] Assigned OBGYN Provider 04/23/20 3 documented as of this encounter
--- OUTSIDE RECORDS SUMMARY | 2023-12-26 20:34 | XMS_ITS | Encounter Summary ---
Author Organization [place] Address [address] [place] [address] Care Team Providers Care Shactor Name Role Phone Needs Pcp, Assignment Primary Care Provider [phone] Encounter Details Date Type Department Care Team (Latest Contact Info) Description 10/08/2023 Orders Only HIM DEPARTMENT Provider, [place] [address] Social History Tobacco Use Types Packs/Day Years [...] on filedocumented in this encounter Care Teams Shactor Relationship Specialty Start Date End Date Needs Pcp, [place] [address] PCP - General 02/28/21 documented as of this encounter
--- OUTSIDE RECORDS SUMMARY | 2023-12-26 20:34 | XMS_ITS | Encounter Summary ---
Author Organization [employer] Address [address] [place] [address] Care Team Providers Care Design Engineering Intern Name Role Phone Needs Pcp, Assignment Primary Care Provider [phone] Reason for Visit * Reason Comments Follow-up, NOS Entered automaticall y based on patient selection in [employer]. Encounter Details Date Type Department Care Team (Late st Contact Info) Description 10/08/2023 2:15 PM CDT E-Visit [facility] [address] [place] [address] Leif Stewart PA-C [address] [place] [address] [place] [address] Chief Comp: Follow-up, NOS Social History Tobacco [...] can I have the infusion at the [facility]? Their telephone # is . Thank you for your time. Kind Regards, Juliette documented in this encounter Plan of Treatment Not on file documented as of this encounter Visit Diagnoses Not on filedocumented in this encounter Care Teams Design Engineering Intern Relationship Specialty Start Date End Date Needs Pcp, [place] [address] PCP - General 02/28/21 documented as of this encounter
--- OUTSIDE RECORDS SUMMARY | 2023-12-26 20:34 | XMS_ITS | Encounter Summary ---
Author Organization [employer] Address [address] [address] Care Team Providers Care Pump Stitcher Name Role Phone Needs Pcp, Assignment Primary Care Provider [phone] Reason for Visit * Reason Comments CONSULT Encounter Details Date Type Department Care Team (Late st Contact Info) Description 10/01/2023 12:45 PM CDT Office Visit [facility] [address] [place] [address] Leif Stewart PA-C [address] [place], [place] [address] [address] Age-related osteoporosis without current pathological fracture (HRC) [...] you contact your insurance to verify your fdj-sm-vtudia expense for all medications, as it may [...] daily through food and supplements. Vitamin D: 3949-4557 IU daily Exercise Aerobic Exercise: Work your [...] pack on the infusion site or taking hicl-bsj-crjuvic pain relievers such as acetaminophen as detailed [...] in 2020 -- Prolia x 2 years (4236-1705) managed through [facility] Current Treatment: -- Prolia Treatment Duration: 2021-current [...] daily. Indications: clot prevention bacitracin-polymyxin b (POLYSPORIN) 500-13815 UNIT/GM ointment Apply topically two times a [...] at bedtime. Indications: Trouble Sleeping Multiple Minerals-Vitamins (FQMOZZG-WHPXXILER-PNEL-D3) TABS Take 1 Tablet by mouth daily. [...] (OCEAN) 0.65 % nasal solution Place 1 [place] into both nostrils every 2 hours as [...] osteoporosis documented in this encounter Care Teams Pump Stitcher Relationship Specialty Start Date End Date Needs Pcp, [place] [address] PCP - General 02/28/21 documented as of this encounter
[2023-12-26 20:35] VITALS: BP 133/76; PULSE 75; RESP 18; TEMP 36.2; O2SAT 97; BMI 23.6
--- NOTE | 2023-12-26 21:28 | CRLHL7_ITS ---
For Patients: As a result of the Century Cures Act, medical imaging exams and procedure reports are released immediately into your electronic medical record. You may view this report before your referring provider. If you have questions, please contact your health care provider. Indication: Left upper quadrant pain, previous partial colectomy Technique: CT through the abdomen and pelvis following 79 mL Isovue 370 IV contrast Comparison: CT abdomen pelvis dated 12/12/2022 Findings: Lower chest: No acute abnormality appreciated. Scattered small pulmonary nodules appear unchanged from prior examination. Bibasilar atelectasis and/or scarring. Hepatobiliary: No significant parenchymal abnormality is appreciated. Spleen: Unremarkable. Pancreas: No acute abnormality appreciated. Adrenal glands: No acute abnormality appreciated. Kidneys: No significant parenchymal abnormality appreciated. No visualized calculi. No hydronephrosis. Bowel: No obstruction. Postoperative changes from partial colectomy. No focal perienteric or pericolonic stranding is appreciated. Vascular: Calcified atherosclerotic plaque. Lymph nodes: No gross lymphadenopathy. Peritoneum: No free air. No free fluid. : No acute abnormality appreciated. Soft tissues: No acute abnormality appreciated. Bones: No acute fracture. No lytic or blastic lesion. Right hip replacement. Impression: No acute abnormality appreciated. Please note that all CT scans at this facility use dose modulation, iterative reconstruction, and/or weight-based dosing when appropriate to reduce radiation dose to as low as reasonably achievable. Dictated by Ra Dai MD @ 12/26/2023 11:25:40 PM (Electronically Signed)
--- NOTE | 2023-12-26 21:34 | ED.ABDPAIN ---
HPI - Abdominal Pain General Date Seen: 12/26/23 Chief Complaint: Abdominal Pain Stated Complaint: Upper L abdominal pain Time Seen by Provider: 12/26/23 21:22 Source: patient Mode of arrival: ambulatory Limitations: no limitations History of Present Illness HPI narrative: Patient is a 63-year-old female presenting to the emergency department for left upper quadrant abdominal pain. She states symptoms started today after she ate around noon. States she ate a normal lunch at that time. Has had some nausea but no vomiting. Did take Zofran prior to arrival in nausea since gone away. Describes as a sharp pain in left upper quadrant of her abdomen. Pain does not seem to radiate anywhere. Denies any flank pain at this time. Is concerned because she had a previous partial colectomy and is concerned she could have some new abdominal issues. The colectomy was due to diverticulitis. She also notes today she has been passing several things stools that are abnormal for her. Denies fevers, chest pain, shortness of breath, headache, lightheadedness, dysuria. Describes the pain as a sharp 8/10 pain. Related Data Home Medications ?Medication ?Instructions ?Recorded ?Confirmed clobetasol 0.05 % topical ointment 1 applic topical .qod 11/21/21 11/10/23 liothyronine 5 mcg tablet 5 mcg PO .B.i.d. 11/21/21 11/10/23 lorazepam 0.5 mg tablet 0.5 mg PO Q12H PRN 12/08/21 11/10/23 melatonin 3 mg capsule 9 mg PO HS 12/08/21 11/10/23 trazodone 50 mg tablet 100 mg PO QHS PRN 01/17/23 11/10/23 buspirone 15 mg tablet 15 mg PO BID 03/25/23 11/10/23 cyclosporine 0.05 % eye drops in a drp ophthalmic (eye) 03/25/23 11/10/23 dropperette escitalopram oxalate 10 mg tablet 15 mg PO DAILY 03/25/23 11/10/23 (Lexapro) lidocaine HCl 2 % mucosal solution PO 03/25/23 11/10/23 (Lidocaine Viscous) tretinoin 0.025 % topical cream 1 applic topical QPM 03/25/23 11/10/23 valacyclovir 1 gram tablet 1,000 mg PO 3XD 03/25/23 11/10/23 varenicline 0.03 mg/spray nasal intranasal 03/25/23 11/10/23 spray (Tyrvaya) cyclobenzaprine 5 mg tablet 5 mg PO QPM PRN 09/17/23 11/10/23 vilazodone 10 mg tablet 10 mg PO DAILY 11/04/23 11/10/23 vilazodone 20 mg tablet 20 mg PO DAILY 11/10/23 11/10/23 Previous Rx's ?Medication ?Instructions ?Recorded Lactobacillus acidophilus 0.5 mg 1 tab PO TIDWM 90 days #90 tabs 12/10/21 (100 million cell) tablet hydromorphone 2 mg tablet 2 mg PO Q4H PRN 5 days #30 tabs 12/10/21 ondansetron 4 mg disintegrating 4 mg PO Q6H PRN nausea and 12/10/21 tablet vomiting #10 tabs albuterol sulfate 90 mcg/actuation 2 puff inhalation Q4-6H PRN 03/05/23 aerosol inhaler shortness of breath or wheezing #8.5 grams triamcinolone acetonide 0.025 % 1 applic topical BID #15 grams 03/25/23 topical cream estradiol 10 mcg vaginal tablet 10 mcg vaginal 2XW #24 tabs 11/04/23 (Yuvafem) estradiol 1 mg tablet 0.5 mg (1/2 x 1 mg) PO QDAY #45 11/05/23 tabs diphenoxylate-atropine 2.5 1 tab PO DAILY #10 tabs 11/11/23 mg-0.025 mg tablet (Lomotil) ketorolac 10 mg tablet 10 mg PO Q8H 5 days #15 tabs 11/11/23 ondansetron HCl 4 mg tablet 4 mg PO Q6H #10 tabs 11/11/23 Allergies Allergy/AdvReac Type Severity Reaction Status Date / Time auranofin Allergy Verified 11/10/23 14:49 cat dander Allergy Verified 11/10/23 14:49 Gadolinium-Containing Allergy Verified 11/10/23 14:49 Contrast Medi gluten Allergy Verified 11/10/23 14:49 gold keratinate Allergy Verified 11/10/23 14:49 gold sodium thiomalate Allergy Verified 11/10/23 14:49 lactose Allergy Verified 11/10/23 14:49 Opioids - Morphine Analogues Allergy Verified 11/10/23 14:49 goldshots Allergy Severe Anaphylaxis Uncoded 11/10/23 14:49 Review of Systems Status of ROS Reports: 10 or more systems reviewed and unremarkable except as noted in History and below PFSH [facility] Medical History Herpes zoster ?B02.9 - Zoster without complications (ICD-10) Diverticulitis ?K57.92 - Diverticulitis of intestine, part unspecified, without perforation or abscess without bleeding (ICD-10) Closed T12 fracture ?S22.089A - Unspecified fracture of T11-T12 vertebra, initial encounter for closed fracture (ICD-10) History of Clostridioides difficile colitis ?Z86.19 - Personal history of other infectious and parasitic diseases (ICD-10) History of hypothyroidism ?Z86.39 - Personal history of other endocrine, nutritional and metabolic disease (ICD-10) History of diverticulitis of colon (05/09/11) ?Z87.19 - Personal history of other diseases of the digestive system (ICD-10) History of Clostridioides difficile infection ?Z86.19 - Personal history of other infectious and parasitic diseases (ICD-10) Abscess of sigmoid colon due to diverticulitis ?K57.20 - Diverticulitis of large intestine with perforation and abscess without bleeding (ICD-10) Osteoporosis ?M81.0 - Age-related osteoporosis without current pathological fracture (ICD-10) Sigmoid diverticulitis ?K57.32 - Diverticulitis of large intestine without perforation or abscess without bleeding (ICD-10) History of femur fracture ?Z87.81 - Personal history of (healed) traumatic fracture (ICD-10) Insomnia ?G47.00 - Insomnia, unspecified (ICD-10) Anxiety ?F41.9 - Anxiety disorder, unspecified (ICD-10) Sarcoidosis ?D86.9 - Sarcoidosis, unspecified (ICD-10) Hypothyroidism ?E03.9 - Hypothyroidism, unspecified (ICD-10) Sensorineural hearing loss (SNHL) of both ears ?H90.3 - Sensorineural hearing loss, bilateral (ICD-10) Depression ?F32.A - Depression, unspecified (ICD-10) Chronic fatigue syndrome ?R53.82 - Chronic fatigue, unspecified (ICD-10) 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 - Unspecified juvenile rheumatoid arthritis of unspecified site (ICD-10) Migraines ?G43.909 - Migraine, unspecified, not intractable, without status migrainosus (ICD-10) Diverticulitis of intestine with abscess ?K57.80 - Diverticulitis of intestine, part unspecified, with perforation and abscess without bleeding (ICD-10) Surgical History History of total knee replacement ?Z96.659 - Presence of unspecified artificial knee joint (ICD-10) S/P hammer toe correction ?Z98.890 - Other specified postprocedural states (ICD-10) ?Z87.39 - Personal history of other diseases of the musculoskeletal system and connective tissue (ICD-10) History of repair of rotator cuff ?Z98.890 - Other specified postprocedural states (ICD-10) History of tonsillectomy ?Z90.89 - Acquired absence of other organs (ICD-10) History of total hip arthroplasty ?Z96.649 - Presence of unspecified artificial hip joint (ICD-10) History of bilateral knee arthroplasty ?Z96.653 - Presence of artificial knee joint, bilateral (ICD-10) Family History Father High blood pressure Hyperlipidemia Mother High blood pressure Hyperlipidemia Sister Seizure disorder Social History Narrative: She lives alone in [place]. 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 She does not smoke. She drinks alcohol about once a month. She uses no recreational drugs. She does have a history of chemical dependency. Healthcare power of regulatory attorney is her sister Denise. Code status is full. Are you following a special diet: Yes (no gluten, lactose intolerent) Highest level of school completed/degree received: Master's degree Smoking Status: Never smoker Do you use any of these nicotine containing products: None Second hand tobacco smoke exposure: No How often do you have a drink containing alcohol: never How often do you have six or more drinks on one occasion: Never AUDIT-C Alcohol total score: 0 Non-prescribed substance use: denies use Caffeine: Yes (coffee 3x weekly) Are you now , , , , never or living with a partner: Social isolation score (0-1 are the most socially isolated patients): 0 Are you currently sexually active: No service: No Exam Narrative: Exam Narrative: Const: Well-nourished, Well-developed, in mild distress Eyes: PERRL, no conjunctival injection, and symmetrical lids HENT: Atraumatic external nose and ears. Moist mucous membranes. Neck: Symmetric, trachea midline, No thyromegaly. CVS: RRR, No murmurs or gallops. Peripheral pulses 2+ and equal in all extremities RESP: Unlabored respiratory effort. Clear to auscultation bilaterally. GI: Left upper quadrant abdominal tenderness, Nondistended, No rebound or guarding. No CVA tenderness MSK:Extremities w/o deformity, Normal Active ROM Skin: Warm, Dry. No rashes or lesions. Neuro: Normal Muscle tone, No focal neurological deficits. Psych: Awake, Alert, & Oriented x3. Appropriate mood and affect. Const: Vital Signs, click to edit/add: Vital Signs - 24 hr 12/26/23 20:35 Temperature 97.1 F L Pulse Rate [Right Pulse Oximeter] 75 Respiratory Rate 18 Blood Pressure [Ri ght Upper Arm] 133/76 Pulse Oximetry 97 Oxygen Delivery Me thod Room Air Course Vital Signs Vital signs: Initial Vital Signs Temperature 97.1 F L 12/26/23 20:35 Temperature Source Temporal Artery Scan 12/26/23 20:35 Pulse Rate 75 12/26/23 20:35 Pulse Rhythm Regular 12/26/23 20:35 Respiratory Rate 18 12/26/23 20:35 Blood Pressure 133/76 12/26/23 20:35 Blood Pressure Mean 95 12/26/23 20:35 Pulse Oximetry 97 12/26/23 20:35 Oxygen Delivery Method Room Air 12/26/23 20:35 Vital Signs Temperature 97.1 F L 12/26/23 20:35 Pulse Rate 75 12/26/23 20:35 Respiratory Rate 18 12/26/23 20:35 Blood Pressure 133/76 12/26/23 20:35 Pulse Oximetry 97 12/26/23 20:35 Oxygen Delivery Method Room Air 12/26/23 20:35 Temperature 97.1 F L 12/26/23 20:35 Pulse Rate 75 12/26/23 20:35 Respiratory Rate 18 12/26/23 20:35 Blood Pressure 133/76 12/26/23 20:35 Pulse Oximetry 97 12/26/23 20:35 Oxygen Delivery Method Room Air 12/26/23 20:35 Medications Administered Medications: Discontinued Medications Generic Name Dose Route Start Last Admin Trade Name [place] PRN Reason Stop Dose Admin Hydromorphone HCl 0.5 mg 12/26/23 22:49 12/26/23 23:18 Hydromorphone 0.5 Mg/0.5 Ml Inj IVP 12/26/23 22:50 0.5 mg ONCE ONE Administration Ketorolac Tromethamine 15 mg 12/26/23 21:28 12/26/23 22:20 Ketorolac 15 Mg/Ml Inj IVP 12/26/23 21:29 15 mg ONCE ONE Administration MDM - Abdominal Pain MDM Narrative Medical decision making narrative: Patient is 63-year-old female presenting for left upper quadrant abdominal tenderness. We do a CT scan to look for signs of splenic issues, nephrolithiasis, SBO, pancreatitis or other acute intra-abdominal issues. Will order a CBC, CMP, lipase, urinalysis, magnesium. Toradol given for pain. Lab work all returned showing no concerning abnormalities. Troponin EKG showed no concerning abnormalities. I do not believe a repeat troponin is necessary at this time. Did give her a barrier cream for her anal pain. She states it is from wiping so much. Also give her a dose of Dilaudid since that is when she takes at home for her chronic pain. She is feeling better after this lot it. CT scan reviewed myself the Yannick shows no concerning abnormalities. She does states she is feeling a little bit dehydrated though so I will give rate. Normal saline prior to discharge. Lipases tiny bit elevated at 3 away but is not we criteria pancreatitis. She is otherwise doing well I do not know exactly was causing her pain but I do not see any emergent issues. She will be discharged she is agreeable to this plan. Lab Data Labs: Lab Results 12/26/23 12/26/23 12/26/23 Range/Units 21:29 21:30 21:40 WBC 8.36 (4.50-11.00) K/uL RBC 4.44 (4.00-5.20) m/uL Hgb 13.5 (12.0-16.0) gm/dL Hct 40.7 (33.0-51.0) % MCV 92 (80-100) fL MCH 30 (26-34) pg MCHC 33 (32-36) gm/dL RDW Coeff of Chuck 11.4 L (11.5-15.5) % Plt Count 237 (140-440) K/uL Neut % (Auto) 74.6 H (42.0-72.0) % Lymph % (Auto) 17.9 L (20-44) % [place]as % (Auto) 6.7 (0.0-11.0) % Eos % (Auto) 0.4 (0.0-7.0) % Baso % (Auto) 0.0 (0.0-3.0) % Neut # (Auto) 6.20 (1.7-7.0) K/uL Lymph # (Auto) 1.50 (0.90-2.90) K/uL [place] # (Auto) 0.60 (0.00-0.90) K/UL Eos # (Auto) 0.03 (0.00-0.50) K/uL Baso # (Auto) 0.00 (0.00-0.30) K/uL Abs Immat Gran (auto) 0.03 (0.00-0.30) K/uL Imm/Tot Granulo (auto) 0.4 % Sodium 133 L (135-149) mmol/L Potassium 4.5 (3.6-5.1) mmol/L Chloride 104 (96-114) mmol/L Carbon Dioxide 23 (20-32) mmol/L Anion Gap 6 L (7-15) mEq/L BUN 22 (7-30) mg/dL Creatinine 0.8 (0.5-1.5) mg/dL Estimated Creat Clear 59.40 Estimated GFR 82 ml/min Glucose 115 (60-115) mg/dL Calcium 9.1 (8.4-10.6) mg/dL Magnesium 2.4 (1.5-2.6) mg/dL Total Bilirubin (0.1-1.5) mg/dL AST (12-35) U/L ALT (4-35) U/L Alkaline Phosphatase (40-150) U/L Total Protein (6.0-8.3) g/dL Albumin (3.3-5.0) g/dL Lipase (23-300) U/L Urine Color (Yellow) Urine Appearance (Clear) Urine pH (5.0-8.5) Ur Specific Greene (1.000-1.030) Urine Protein (Negative) Urine Glucose (UA) (Negative) Urine Ketones (Negative) Urine Blood (Negative) Urine Nitrite (Negative) Urine Bilirubin (Negative) Urine Urobilinogen (0.2-1.0) Ur Leukocyte Esterase (Negative) Urine RBC (0-2) Urine WBC (0-5) Ur Squamous Epith Cells (None-Few) Urine Bacteria (None) POC Creatinine 0.8 (0.6-1.3) mg/dl POC Troponin I 0.00 L (0.01-0.04) ng/ml 12/26/23 12/26/23 Range/Units 21:40 21:40 WBC (4.50-11.00) K/uL RBC (4.00-5.20) m/uL Hgb (12.0-16.0) gm/dL Hct (33.0-51.0) % MCV (80-100) fL MCH (26-34) pg MCHC (32-36) gm/dL RDW Coeff of Chuck (11.5-15.5) % Plt Count (140-440) K/uL Neut % (Auto) (42.0-72.0) % Lymph % (Auto) (20-44) % [place] % (Auto) (0.0-11.0) % Eos % (Auto) (0.0-7.0) % Baso % (Auto) (0.0-3.0) % Neut # (Auto) (1.7-7.0) K/uL Lymph # (Auto) (0.90-2.90) K/uL [place] # (Auto) (0.00-0.90) K/UL Eos # (Auto) (0.00-0.50) K/uL Baso # (Auto) (0.00-0.30) K/uL Abs Immat Gran (auto) (0.00-0.30) K/uL Imm/Tot Granulo (auto) % Sodium (135-149) mmol/L Potassium (3.6-5.1) mmol/L Chloride (96-114) mmol/L Carbon Dioxide (20-32) mmol/L Anion Gap (7-15) mEq/L BUN (7-30) mg/dL Creatinine (0.5-1.5) mg/dL Estimated Creat Clear Estimated GFR ml/min Glucose (60-115) mg/dL Calcium (8.4-10.6) mg/dL Magnesium Cancelled (1.5-2.6) mg/dL Total Bilirubin 0.4 (0.1-1.5) mg/dL AST 28 (12-35) U/L ALT 17 (4-35) U/L Alkaline Phosphatase 49 (40-150) U/L Total Protein 7.2 (6.0-8.3) g/dL Albumin 4.5 (3.3-5.0) g/dL Lipase 308 H Cancelled (23-300) U/L Urine Color Yellow (Yellow) Urine Appearance Clear (Clear) Urine pH 5.5 (5.0-8.5) Ur Specific Greene 1.020 (1.000-1.030) Urine Protein Negative (Negative) Urine Glucose (UA) Negative (Negative) Urine Ketones Negative (Negative) Urine Blood Negative (Negative) Urine Nitrite Negative (Negative) Urine Bilirubin Negative (Negative) Urine Urobilinogen 0.2 (0.2-1.0) Ur Leukocyte Esterase Negative (Negative) Urine RBC 0-2 (0-2) Urine WBC 2-5 (0-5) Ur Squamous Epith Cells Moderate A (None-Few) Urine Bacteria None (None) POC Creatinine (0.6-1.3) mg/dl POC Troponin I (0.01-0.04) ng/ml Imaging Data CT scan lumbar spine: Attestation: I have reviewed the pertinent imaging results. Radiologist's impression: No acute abnormality appreciated. Please note that all CT scans at this facility use dose modulation, iterative reconstruction, and/or weight-based dosing when appropriate to reduce radiation dose to as low as reasonably achievable. Dictated by Ra Dai MD @ 12/26/2023 11:25:40 PM ECG Data Attestation: I personally reviewed and interpreted this ECG as follows: Prior ECG tracings: not available for review Interpretation: Normal sinus rhythm with rate of 63 beats per minute, normal intervals, normal axis, no ST or T-wave abnormalities Discharge Plan Discharge Clinical Impression: Abdominal pain Qualifiers: Abdominal location: left upper quadrant Qualified Code(s): R10.12 - Left upper quadrant pain Patient Disposition: Home, Self-Care Condition: Improved Instructions: Abdominal Pain (ED) Additional Instructions: I am not sure what is causing abdominal pain at this time but is not appear to be any emergent issues. Continue take her home pain medication to return to emergency department for new worsening symptoms. Prescriptions: No Action trazodone 50 mg tablet 100 mg PO QHS PRN Tyrvaya 0.03 mg/spray spray, metered, non-aerosol intranasal Patient Comments: [NO ORIGINAL SIG] cyclosporine 0.05 % dropperette ophthalmic (eye) lidocaine HCl [Lidocaine Viscous] 2 % solution PO tretinoin 0.025 % cream 1 applic topical QPM buspirone 15 mg tablet 15 mg PO BID valacyclovir 1 gram tablet 1,000 mg PO 3XD triamcinolone acetonide 0.025 % cream 1 applic topical BID Qty: 15 0RF Rx Instructions: Apply small amount to affected area cyclobenzaprine 5 mg tablet 5 mg PO QPM PRN vilazodone 20 mg tablet 20 mg PO DAILY albuterol sulfate 90 mcg/actuation HFA aerosol inhaler 2 puff inhalation Q4-6H PRN (Reason: shortness of breath or wheezing) Qty: 8.5 0RF vilazodone 10 mg tablet 10 mg PO DAILY estradiol [Yuvafem] 10 mcg tablet 10 mcg vaginal 2XW Qty: 24 3RF diphenoxylate-atropine [Lomotil] 2.5-0.025 mg tablet 1 tab PO DAILY Qty: 10 0RF ketorolac 10 mg tablet 10 mg PO Q8H 5 Days Qty: 15 0RF ondansetron HCl 4 mg tablet 4 mg PO Q6H Qty: 10 0RF liothyronine 5 mcg tablet 5 mcg PO .B.i.d. clobetasol 0.05 % ointment 1 applic TOPICAL .qod lorazepam 0.5 mg tablet 0.5 mg PO Q12H PRN melatonin 3 mg capsule 9 mg PO HS hydromorphone 2 mg Tablet 2 mg PO Q4H PRN5 Days Qty: 30 0RF Lactobacillus acidophilus 0.5 mg (100 million cell) Tablet 1 tab PO TIDWM 90 Days Qty: 90 0RF ondansetron 4 mg tablet,disintegrating 4 mg PO Q6H PRN (Reason: nausea and vomiting) Qty: 10 0RF escitalopram oxalate [Lexapro] 10 mg tablet 15 mg PO DAILY estradiol 1 mg tablet 0.5 mg PO QDAY Qty: 45 3RF Rx Instructions: Take 1/2 tab (0.5 mg) daily. Follow Up/Referrals: Nivia Bruno MD [Primary Care Provider] - Stand Alone Forms: Home Leasing Info Instructions
--- OUTSIDE RECORDS SUMMARY | 2023-12-26 21:40 | XMS_ITS | Referral Summary ---
Author Organization [facility] Address [address] [place] [id number] Care Team Providers Care Radio Frequency Engineer Name Role Phone Nivia Bruno MD Primary Care Provider [phone] Allergies Active Allergy Reactions Criticality Noted Date [...] Take 1 tablet by mouth 07/22/2014 Active Olean-3 1000 MG CAPS 04/02/2016 Acti ve Saline (SODIUM CHLORIDE) 0.65 % SOLN Diamond 1 spray in nostril 01/28/2015 Active traZODone [...] BASIC METABOLIC PANEL Routine 06/23/2017 6:00 AM [facility] from Last 3 Months or Most Recently Relevant to Health Maintenance Results * Basic metabolic panel (06/23/2017 6:00 AM [facility]) Sodium 139 136 - 145 mmol/L 06/23/2017 10:13 AM [facility] Potassium 4.2 3.5 - 5.0 mmol/L 06/23/2017 10:13 AM [facility] Chloride 103 98 - 107 mmol/L 06/23/2017 10:13 AM [facility] Carbon Dioxide (CO2) 29 22 - 31 mmol/L 06/23/2017 10:13 AM [facility] Anion Gap 7 5 - 18 mmol/L 06/23/2017 10:13 AM [facility] Glucose 105 70 - 125 mg/dL 06/23/2017 10:13 AM [facility] Calcium 9.4 8.5 - 10.5 mg/dL 06/23/2017 10:13 AM [facility] Urea Nitrogen 16 8 - 22 mg/dL 06/23/2017 10:13 AM [facility] Creatinine 0.69 0.60 - 1.10 mg/dL 06/23/2017 10:13 AM [facility] GFR Estimate If Black >60 >60 mL/min/1.7 3m2 06/23/2017 10:13 AM [facility] GFR Estimate >60 >60 mL/min/1.7 2 06/23/2017 10:13 AM [facility] Blood specimen (specimen) STRUCTURE OF LEFT UPPER LIMB / Unknown Venipuncture / Unknown 06/23/2017 6:00 AM [facility] 06/23/2017 9:50 AM [facility] Narrative [facility] - 06/23/2017 10:13 AM [facility] Fasting Glucose reference range is 70-99 mg/dL per [place] [employer] (ADA) guidelines. Rosmery Simpson MD LAB - BLOOD ORDER [facility] [address] [address], [facility] [address] [address] from Last 3 Months or Most Recently Relevant to Health Maintenance Advance Directives For more information, please contact: [phone] * Full Code (Latest Code Status on File) Date Activated Date Inactivated Comments 04/16/2016 1:58 AM 04/22/2016 3:55 PM Care Teams Radio Frequency Engineer Relationship Specialty Start Date End Date Nivia Bruno MD PCP - General 03/22/21
--- OUTSIDE RECORDS SUMMARY | 2023-12-26 21:40 | XMS_ITS | Encounter Summary ---
Author Organization [facility] Address [address] [place] [address] Care Team Providers Care Information Security Associate Name Role Phone Kelsi Handy MD Unavailable [phone] Nivia Bruno MD Primary Care Provider Encounter Details Date Type Department Care Team ([facility] Contact Info) Description 06/13/2021 Telephone [facility] Intake [address] [place] [address] Generic, Behavioral Intake, Social History [...] KETTY Lynn sent at 06/29/2021 11:41 AM FRONT END APPLICATION DEVELOPER ----- Regarding: new start Clinic 1 on 07/05 Scheduling Request Patient Name: Juliette Brown Location of programmin[facility] Start Date: June Group: Clinic 1 on at 1:00 to 3:00PM Attending Provider (MD): 12 Number of visits to be scheduled: 12 Duration of Appointment in minutes: 120 min Visit Type: Zoom - [id number] Additional notes: T END APPLICATION DEVELOPER * Telephone Encounter - Jen Serrano - 06/13/2021 9:38 AM CST ----- Message from SHANNON Warner sent at 06/13/2021 9:12 AM FRONT END APPLICATION DEVELOPER ----- Regarding: add appointment Scheduling Request Patient Name: ?? Location of programming: [facility] 55+ Start Date:06/13/21 Group ([facility] on #days of the week# at #start time to end time#): 55+ B1 M,W,F 1-4pm Provider (name of MD): Niall Number of visits to be scheduled: 1 Duration of Appointment in minutes: 180 mins Visit Type (Robert - 1172 / Zoom - 2397 / In-person or Treatment - 870) :2657-zoom Additional notes: T END APPLICATION DEVELOPER documented in this encounter Plan of Treatment Not on file documented as of this encounter Visit Diagnoses Not on filedocumented in this encounter Additional Health Concerns Assessment Noted Time PHQ-9 Depression Total Score: 7 06/14/19 22 10:59 AM FRONT END APPLICATION DEVELOPER documented as of this encounter Care Teams Information Security Associate Relationship Specialty Start Date End Date Nivia Bruno MD [address] [place] [address] PCP - General 03/22/21 Kelsi Handy MD [address] [place] [address] Assigned OBGYN Provider 04/23/20 3 documented as of this encounter
--- OUTSIDE RECORDS SUMMARY | 2023-12-26 21:40 | XMS_ITS | Clinical Summary ---
Author Organization [facility] Address [place], [place] [address] Care Team Providers Care Religious Education Director Name Role Phone Nivia Bruno MD Primary Care Provider [phone] Judie Carreno PharmD Unavailable [phone] Allergies Active Allergy Reactions Criticality Noted Date [...] injury due to substance overdose Inhale 1 [place] into affected nostril(s) each time if needed [...] Apple Cider Vinegar - PRN NN Ultimate [place]-3 - daily Body Bio Balance Oil (omega-3/omega-6 [...] Description 12/26/2023 2:00 PM CDT Procedure Only [facility] [address] [facility] [place] [address] Tyler Parson L Ac Acupuncture 12/26/2023 Travel 12/23/2023 1:00 PM CDT Phone Office Visit [facility] [address] [place] [address] Keiko Downs [employer] Individual Therapy; Phone Visit 12/23/2023 Travel 12/17/2023 2:30 PM CDT Pharmacist Medication Management [facility] [place] [address] Judie Carreno PharmD Pharmacist Medication Management ([facility] follow-up - [facility] patient - depression/pain) 12/17/2023 9:00 AM CDT Procedure Only [facility] [address] [place] [address] Facundo Mijares MD Procedure (Ultrasound guided injection lef... 12/16/2023 1:00 PM CDT Phone Office Visit [facility] [address] [facility] [place] [address] Keiko Downs [employer] Individual Therapy; Phone Visit 12/16/2023 Travel 12/12/2023 2:00 PM CDT Procedure Only [facility] [address] [place] [address] Tyler Parson L Ac Acupuncture 12/12/2023 11:15 AM CDT Phone Office Visit [address] [address] Freda Serrano MD Follow Up 12/12/2023 Travel 12/10/2023 Refill [facility] [address] [place] [address] Freda Serrano MD Refill Request (Vilazodone) 12/10/2023 Orders Only [facility] [place] [facility] [address] Facundo Mijares MD 1 scan: (1-Ord) [facility] [place] BONE 3 PHASE, 12/04/2023 12/09/2023 1:00 PM CDT Phone Office Visit [facility] [place] [address] Keiko Downs, [facility] Individual Therapy; Phone Visit 12/09/2023 Telephone [facility] [place] [address] Facundo Mijares MD Questions 12/09/2023 Travel 12/02/2023 1:00 PM CDT Phone Office Visit [facility] [place] [address] Keiko Downs [facility] Individual Therapy; Phone Visit 12/02/2023 Travel 12/01/2023 Telephone [facility] [place] [address] Facundo Mijares MD FYI 11/28/2023 2:00 PM CDT Procedure Only [facility] [address] [facility] [place] [address] Tyler Parson L Ac Acupuncture 11/27/2023 11:05 AM CDT Office Visit [facility] [address] [place] [address] Kourtney Cherry PA UTI (Or Yeast Infection) 11/27/2023 Telephone [facility] [address] [facility] [place] [address] Facundo Mijares MD Questions 11/27/2023 Travel 11/25/2023 11:30 AM CDT Phone Office Visit [facility] [address] [facility] [place] [address] Keiko Downs [facility] Individual Therapy; Phone Visit 11/25/2023 Travel 11/24/2023 Telephone [facility] [address] [place] [address] Facundo Mijares MD Prior Authorization (lidocaine 5 % topical patch (APPROVED 11/24/2023- Until Further Notice)) 11/19/2023 4:00 PM CDT Office Visit [facility] [address] [place] [address] Facundo Mijares MD Musculoskeletal Problem (Follow Up Right Leg Pain ) 11/19/2023 2:00 PM CDT Pharmacist Medication Management [facility] [address] [place] [address] Judie Carreon, AugustaD Pharmacist Medication Management ([facility] follow-up - [facility] patient - pain/depression treatment) 11/19/2023 Travel 11/18/2023 1:00 PM CDT Phone Office Visit [address] [phone] Keiko Downs [facility] Individual Therapy; Phone Visit 11/18/[address] [address] Facundo Mijares MD Appointment Request 11/17/2023 1:45 PM CDT Phone Office Visit [address] [address] Freda Serrano MD Phone Visit; Medication Management (Not doing very well today, Has MONTALVO, ) 11/17/2023 Travel 11/11/2023 1:00 PM CDT Phone Office Visit [address] [phone] Keiko Downs [employer] Individual Therapy; Phone Visit 11/10/2023 11:00 AM CDT Office Visit [address] [address] Jyoti Sellers PA Follow Up (UTI, new plan) 11/10/2023 Travel 11/07/2023 1:00 PM CDT Procedure Only [address] [place] [address] Tyler Parson L Ac Acupuncture 11/07/2023 Travel 11/05/2023 Lab Requisition [facility] [phone] Corine Guillaume MD 11/04/2023 1:00 PM CDT Phone Office Visit [facility] [address] [place] [address] Keiko Downs [facility] Individual Therapy; Phone Visit 11/04/2023 11:15 AM CDT Phone Office Visit [facility] [address] [place] [address] Freda Serrano MD Phone Visit; Follow Up 11/04/2023 Travel 10/31/2023 2:30 PM CDT Procedure Only [facility] [address] [place] [address] Tyler Parson L Ac Acupuncture 10/31/2023 Travel 10/30/2023 10:40 AM CDT Office Visit [facility] [address] [place] [phone] Tomas Mckeon MD Consult (Sore on inside on mouth. upper lips. Nasal congestion. Deviated septum) 10/29/2023 3:30 PM CDT Pharmacist Medication Management [facility] [address] [place] [address] Judie Carreno PharmD Pharmacist Medication Management ([facility] follow-up - [facility] patient - pain/MH) 10/29/2023 Travel 10/28/2023 11:30 AM CDT Phone Office Visit [facility] [address] [place] [phone] Keiko Downs [facility] Individual Therapy; Phone Visit 10/28/2023 Travel 10/24/2023 11:15 AM CDT Phone Office Visit [facility] [address] [place] [address] Freda Serrano MD Follow Up; Phone Visit 10/24/2023 Travel 10/22/2023 11:05 AM CDT Office Visit [facility] [address] [place] [address] Kourtney Cherry PA Mouth/Lip Problem 10/22/2023 10:00 AM CDT Phone Office Visit [facility] [address] [place] [address] Jyoti Sellers PA Phone Visit; Follow Up (Labs, medication ) 10/22/2023 Travel 10/22/[address] [address] Jyoti Sellers PA Appointment (Cancellation note per patient) 10/21/2023 11:30 AM CDT Phone Office Visit [address] [address] Keiko Downs, [facility] Individual Therapy; Phone Visit 10/21/2023 Travel 10/17/2023 2:30 PM CDT Procedure Only [address] [address] Tyler Parson L Ac Acupuncture 10/17/2023 10:30 AM CDT Pharmacist Medication Management [address] [address] Judie Carreno PharmD Pharmacist Medication Management ([facility] follow-up - [facility] patient - phone visit) 10/17/2023 Patient Outreach [address] [address] Aubree Nuñez, YASMIN Primary RN Care Management (FCM referral ) 10/16/[address] [address] Judie Carreno PharmD Medication Management 10/16/2023 Travel 10/16/[address] [address] Freda Serrano MD Refill Request (Escitalopram Oxalate) 10/15/2023 1:45 PM CDT Ancillary Procedure [facility] [address] [place] [address] 10/15/2023 1:00 PM CDT Office Visit [facility] [address] [place] [address] Facundo Mijares MD Follow Up (Fell a week ago-pain right shoulder and right leg pain) 10/14/2023 1:00 PM CDT Phone Office Visit [facility] [address] [place] [address] Keiko Downs, [employer] Individual Therapy; Phone Visit 10/14/2023 Travel 10/13/2023 Telephone [facility] [address] [place] [address] Facundo Mijares MD Error-please disregard (as soon as possible); Appointment Request 10/10/2023 2:00 PM CDT Procedure Only [facility] [address] [place] [address] Tyler Parson L Ac Acupuncture 10/10/2023 Travel 10/09/2023 Refill [facility] [address] [place] [address] Nivia Bruno MD Refill Request 10/09/2023 Patient Outreach [facility] - Care Management Navigation/[facility] [address] [place] [address] Kulwant Palmer Care Management Intake (Engagement Outreach/) 10/08/[address] [facility] [address] [place] [address] Judie Carreno, AugustaD Pharmacist Medication Management (Medication refills) 10/07/2023 2:30 PM CDT Patient Outreach [facility] - Advanced Care Team [address] [place] [address] Lisa Thakur, leather grainer Management (Transition) 10/07/2023 1:00 PM CDT Phone Office Visit [facility] [address] [place] [address] Keiko Downs [facility] Individual Therapy; Phone Visit 10/07/2023 Travel 10/03/2023 3:32 PM CDT - 10/03/2023 11:59 PM CDT Hospital Encounter [facility] [address] [place] [address] Nivia Bruno MD Pain in left lower leg 10/03/2023 2:00 PM CDT Procedure Only [facility] [address] [place] [address] Tyler Parson L Ac 10/03/2023 11:15 AM CDT Office Visit [facility] [address] [place] [address] Nivia Bruno MD Ankle Injury (hurt ankle - wondering about the veins/worried about DVT); Derm Problem (itchy under breasts/) 10/03/2023 Telephone [facility] [address] [place] [address] Nivia Bruno MD Results (no DVT in leg) 10/03/2023 Travel 10/01/2023 Telephone [facility] [address] [place] [address] Freda Serrano MD DONNY 10/01/2023 Telephone [facility] [address] [place] [address] Nivia Bruno MD Appointment (PROLIA SHOT ) 09/30/2023 11:30 AM CDT Phone Office Visit [facility] [address] [place] [phone] Keiko Downs [facility] Individual Therapy; Phone Visit 09/30/2023 Nurse Triage [facility] [address] [place] [address] Nivia Bruno MD Results (DEXA) 09/30/2023 Telephone [facility] [address] [place] [address] Nivia Bruno MD Imaging (RESULTS) 09/30/2023 Travel 09/26/2023 11:30 AM CDT Pharmacist Medication Management [facility] [address] [place] [address] Judie Carreno PharmD Pharmacist Medication Management ([facility] follow-up - [facility] patient - pain) 09/26/2023 9:00 AM CDT Office Visit [facility] [address] [place] [address] Facundo Mijares MD Consult (Left ankle pain started 09/13/2023 after doing pool heel raises/) 09/26/2023 Travel 09/25/2023 2:00 PM CDT Procedure Only [facility] [address] [place] [address] Tyler Parson L Ac Acupuncture from Last [...] T Respiratory Rate 16 04/01/2022 3:21 PM WET FINISHER WOOL Oxygen Saturation 97% 12/17/2023 9:09 AM CDT Inhaled Oxygen Concentration - - Weight 74.6 kg (164 lb 8 oz) 11/19/2023 4:05 PM CDT Height 174 cm (5' 8.5) 04/14/2023 2:10 PM W[employer] FINISHER WOOL Body Mass Index 24.65 04/14/2023 2:10 PM W[employer] FINISHER WOOL Plan of Treatment Upcoming Encounters Date Type Department Care Team (Late st Contact Info) Description 01/06/2024 1:00 PM CDT Phone Office Visit [facility] [address] [place] [phone] Keiko Downs LICSW [address] [place] [address] 01/16/2024 1:00 PM CDT Procedure Only [address] [address] Tyler Parson L Ac [address] [place] [address] 01/21/2024 2:00 PM CDT Pharmacist Medication Management [address] [address] Judie Carreno, PharmD [address] [place] [address] 01/23/2024 1:00 PM CDT Procedure Only [address] [address] Tyler Parson L Ac [address] [place] [address] 01/30/2024 1:00 PM CDT Procedure Only [facility] [address] [place] [address] Tyler Parson L Ac [address] [facility] [address] 02/06/2024 11:00 AM CDT Procedure Only [facility] [place] [address] Tyler Parson L Ac [address] [facility] [address] 02/13/2024 1:00 PM CDT Procedure Only [facility] [address] [place] [address] Tyler Parson L Ac [address] [facility] [address] 02/27/2024 1:00 PM CDT Procedure Only [facility] [address] [place] [address] Tyler Parson L Ac [address] [facility] [place] [address] 03/05/2024 11:00 AM CDT Procedure Only [facility] [address] [place] [address] Tyler Parson L Ac [address] [place] [address] 03/12/2024 11:15 AM CDT Phone Office Visit [facility] [address] [place] [address] Fread Serrano MD [address] [place] [address] 03/12/2024 1:00 PM CDT Procedure Only [facility] [address] [place] [address] Tyler Parson L Ac [address] [facility] [place] [address] 03/19/2024 10:30 AM WET FINISHER WOOL Procedure Only [facility] [address] [facility] [place] [address] Tyler Parson, [place] Ac [address] [facility] [place] [address] 03/26/2024 1:00 PM WET FINISHER WOOL Procedure Only [facility] [address] [place] [address] Tyler Parson L Ac [address] [facility] [address] 04/02/2024 1:00 PM WET FINISHER WOOL Procedure Only [facility] [address] [place] [address] Tyler Parson L Ac [address] [facility] [place] [address] 04/07/2024 10:00 AM WET FINISHER WOOL Procedure Only [facility] [address] [place] [address] Tyler Parson L Ac [address] [facility] [place] [address] 04/12/2024 2:00 PM WET FINISHER WOOL Procedure Only [facility] [address] [place] [address] Tyler Parson L Ac [address] [facility] [place] [address] 04/23/2024 1:00 PM W[employer] FINISHER WOOL Procedure Only [facility] [address] [place] [address] Tyler Parson L Ac [address] [place] [address] 04/30/2024 1:00 PM WET FINISHER WOOL Procedure Only [facility] [address] [place] [address] Tyler Parson L Ac [address] [place] [address] 05/07/2024 1:00 PM WET FINISHER WOOL Procedure Only [facility] [address] [place] [address] Tyler Parson L Ac [address] [place] [address] Health Maintenance Due Date Last Done Comments [...] EVENT Routine 11/04/2023 3: 50 PM CDT INDUSTRIAL ENERGY ENGINEER THIN PREP PAP SCREEN IMAGED Routine 11/04/2023 [...] REFLEX MEASURED LDL Routine 07/08/2023 12:07 PM [employer] Hyperlipidemia, unspecified hyperlipidemia type SCAN-COLONOSCOPY 01/28/2022 1:00 PM CDT ANTI HIV 1/2 Routine 06/01/2018 4:02 PM [employer] Exposure to STD ANTI HCV Routine 09/30/2017 [...] SPECIES Negative Negative 4 3:30 AM CDT [facility] CARMELO GLABRATA Negative Negative 11/28/2023 3:30 AM CDT [facility] TRICHOMONAS VVA Negative Negative 4 3:30 AM CDT [facility] BACTERIAL VAGINOSIS Negative Negative 11/28/2023 3:[address] [facility] Other VAGINAL SWAB / Unknown Non-Blood / Unknown 11/27/2023 11:30 AM CDT 11/27/2023 1:35 PM CDT Kourtney GUERRERO MICROBIOLOGY [facility] [address] [place] [address], [place] * (ABNORMAL) UA W/ SEDIMENT EXAM REFLEXED PER CRITERIA (11/27/2023 11:15 AM CDT) COLOR Yellow Yellow Color 11/27/2023 11:23 AM CDT [facility] CLARITY Clear Clear Clarity 11/27/2023 11:23 AM CDT [facility] SPECIFIC GRAVITY,URINE 1.015 1.010, 1.015, 1.020, 1.025 11/27/2023 11:23 AM CDT [facility] PH,URINE 5.0(A) 6.0, 7.0, 8.0, 5.5, 6.5, 7.5, 8.5 11/27/2023 11:23 AM CDT [facility] UROBILINOGEN, QUALITATIVE Normal Normal EU/dl 11/27/2023 11:23 AM CDT [facility] PROTEIN, URINE Negative Negative mg/dL 11/27/2023 11:23 AM CDT [facility] GLUCOSE, URINE Negative Negative mg/dL 11/27/2023 11:23 AM CDT [facility] KETONES,URINE Negative Negative mg/dL 11/27/2023 11:23 AM CDT [facility] BILIRUBIN,URI NE Negative Negative 11/27/2023 11:23 AM CDT [facility] OCCULT BLOOD,URINE Negative Negative 11/27/2023 11:23 AM CDT [facility] NITRITE Negative Negative 11/27/2023 11:23 AM CDT [facility] LEUKOCYTE ESTERASE Negative Negative 11/27/2023 11:23 AM CDT [facility] Urine URINE SPECIMEN / Unknown Non-Blood / Unknown 11/27/2023 11:15 AM CDT 11/27/2023 11:20 AM CDT Kourtney GUERRERO URINE [facility] [address] [place] [address], * LAB TRACKING EVENT (11/04/2023 3:50 PM CDT) Other (Other) Client Collect / Unknown 11/04/2023 3:50 PM CDT 11/05/2023 4:31 PM CDT Corine Guillaume MD LAB BILL ONLY [facility] [address] [place] [address], * INDUSTRIAL ENERGY ENGINEER THIN PREP PAP SCREEN IMAGED (11/04/2023 3:50 PM CDT) Case Report Gynecologic Cytology Report ? Case: [id number] ? Authorizing Provider: ??Corine Guillaume MD ?Collected: ? 11/04/2023 1550 ? Ordering Location: ? [facility] ?Received: ?11/06/2023 0926 ? First Screen: ?Kathy Stephens ? Specimen: ?INDUSTRIAL ENERGY ENGINEER ThinPrep Vial Screening, Cervical ? 11/12/2023 1:05 PM CDT [facility] INTERPRETATION/ RESULT NEGATIVE FOR INTRAEPITHELIAL LESION OR MALIGNANCY (NIL) (none) 11/12/2023 1:05 PM CDT [facility] IMEN ADEQUACY Satisfactory for evaluation Endocervical component present 11/12/2023 1:05 PM CDT [facility] HPV REQUEST HPV and PAP 11/12/2023 1:05 PM CDT [facility] Last Pap Date 11/12/2023 1:05 PM CDT [facility] Comment:09/2017 Last Pap Result NIL 1:05 PM CDT [facility] Abnormal Pap or Hyden Bx in last 5 years No 11/12/2023 1:05 PM CDT [facility] Menstrual Status Postmenopausal 11/12/2023 1:05 PM CDT [facility] Hyden Bx Done Today No 11/12/2023 1:05 PM CDT [facility] Additional Information 11/12/2023 1:05 PM CDT [facility] Comment: Interpreted at [facility] Central Laboratory - [address], [place] [address] Automated Review Successful 11/12/2023 1:05 PM CDT [facility] Comment:Specimen processed s uccessfully by automated solidworks drafter device, ThinPrep Imaging System, [employer] ANCILLARY TESTING INDUSTRIAL ENERGY ENGINEER HPV Ordered, Please see separate report 11/12/2023 1:05 PM CDT [facility] Note The pap test is a [...] and malignant lesions. 11/12/2023 1:05 PM CDT [facility] Other (Cervical) 11/04/2023 3:50 PM CDT 11/06/2023 9:26 AM CDT Corine Guillaume MD PATHOLOGY/CYTOLOGY Performing Organization Address [facility] Co de Phone Number [facility] [address] [place] [address], [place] * HPV HIGH RISK (11/04/2023 3:50 PM CDT) TYPE 16 Negative Negative 11/07/2023 4:00 PM CDT [facility] TYPE 18 Negative Negative 11/07/2023 4:00 PM CDT [facility] OTHER HIGH RISK TYPES Negative Negative 11/07/2023 4:[address] [facility] Other (Cervical) 11/04/2023 3:50 PM CDT 11/06/2023 9:26 AM CDT Narrative [facility] - 11/07/2023 4:00 PM CDT HPV types 16, 18, 31, 33, 35, 39, 45, 51, 52, 56, 58, 59, 66 and 68 DNA were undetectable or below the pre-set threshold. Methodology: Jacek Karen 4800 HPV Test Corine Guillaume MD MICROBIOLOGY Performing Organization Address [facility] Co de Phone Number [facility] [address] [address], [place] * XR FEMUR 2 VIEWS RIGHT [...] care provider. XR MAMMO EVA BILAT SCREEN [[id number]] CLINICAL HISTORY: ??This is an asymptomatic 63 y.o. patient. INDICATION FOR EXAM: Mammogram Screening. TECHNIQUE: CC & MLO views were obtained. ??This study was evaluated with the assistance of Computer-Aided Detection. Breast Tomosynthesis was used in interpretation. COMPARISON FILM: Yes 05/13/22 [facility] 05/10/21 [facility] FINDINGS: ??The breasts have scattered areas of fibroglandular density. There are no dominant masses, suspicious micro calcifications or areas of architectural distortion. Nivia Bruno MD MAMMO * (ABNORMAL) LIPID PANEL W REFLEX MEASURED LDL (07/08/2023 12:07 PM WET FINISHER WOOL) CHOLESTEROL,TOTAL 285(H) 100 - 199 mg/dL 07/08/2023 9:55 PM WET FINISHER WOOL [facility] Comment: Cholesterol, Total Reference Ranges Desirable <200 mg/dL Borderline 200-239 mg/dL High >=240 mg/dL TRIGLYCERIDES 97 <150 mg/dL 07/08/2023 9:55 PM WET FINISHER WOOL [facility] HDL CHOLESTEROL 76 >40 mg/dL 9:55 PM WET FINISHER WOOL [facility] NON-HDL CHOLESTEROL 209(H) <145 mg/dl 07/08/2023 9:55 PM WET FINISHER WOOL [facility] CHOL/HDL RATIO 3.75 <4.50 07/08/2023 9:55 PM WET FINISHER WOOL [facility] LDL CHOLESTEROL 190(H) <=130 mg/dL 07/08/2023 9:55 PM [facility] VLDL CHOLESTEROL 19 <=30 mg/dL 07/08/2023 9:55 PM [facility] PROVIDER ORDERED STATUS RANDOM 07/08/2023 9:55 PM [facility] Blood BLOOD SPECIMEN / Unknown Venipuncture / Unknown 07/08/2023 12:07 PM WET FINISHER WOOL 07/08/2023 12:07 PM [email or web address] Nivia Bruno MD CHEMISTRY [facility] [address] [place] [address], [place] * SCAN-COLONOSCOPY (01/28/2022 1:00 PM CDT) Narrative Procedure Note Edison Ceron MD - 01/28/2022 12:02 PM CDT [facility] [address], [address], [place] [address] Patient Name: Juliette Brown Gender: Female Exam Date: 01/28/2022 Visit Number: [id number] Age: 61 Years 9 Months Date of : 1960 Attending MD: Edison Ceron MD Medical Record#: [id number] ----- Procedure: Colonoscopy Indications: Recent history of [...] Race: White Ethnicity: Not or Preferred Language: Greek cc: Nivia Bruno MD [facility] [phone] Edison Ceron MD OTHER * ANTI HIV 1/2 (06/01/2018 4:02 PM WET FINISHER WOOL) HIV-1/HIV-2 ANTIBODY Non-Reacti ve Non-Reacti ve 06/01/2018 8:08 PM WET FINISHER WOOL [facility] Comment:HIV-1 p24 and HIV-1/ HIV-2 Ab not detected. Blood BLOOD SPECIMEN / Unknown Venipuncture / Unknown 06/01/2018 4:02 PM WET FINISHER WOOL 06/01/2018 4:02 PM WET FINISHER WOOL Nivia Bruno MD SEND OUTS [facility] [address] [place] [address], * ANTI HCV (09/30/2017 5:38 PM CDT) HEPATITIS C ANTIBODY Non-React mathieu Non-React mathieu 10/01/2017 2:41 PM CDT [facility] Comment:Antibodies to HCV no t detected; does not exclude the possibility of exposure to HCV. Blood BLOOD SPECIMEN / Unknown Venipuncture / Unknown 09/30/2017 5:38 PM CDT 09/30/2017 5:38 PM CDT Kourtney GUERRERO SEND OUTS [facility] LAB[facility]ATORY [address] [place] [address], from Last 3 Months or Most Recently Relevant to Health Maintenance Advance Directives Documents on File Type Date Recorded Patient Fixed Route Operator Expl anation Healthcare Directive 04/01/2022 022 [...] 6:43 PM 06/10/2011 6:41 PM Care Teams Religious Education Director Relationship Specialty Start Date End Date Nivia Bruno MD [address] [place] [address] PCP - General Family Practice 07/01/19 Judie Carreno, Zoraida [address] [place] [address] [place] [address] Pharmacist Medication Management Pharmacology 05/28/23 05/28/25
--- OUTSIDE RECORDS SUMMARY | 2023-12-26 21:40 | XMS_ITS | Encounter Summary ---
Author Organization [facility] Address [address] [place] [address]. [place] [address] Care Team Providers Care Graphic Art Sales Representative Name Role Phone Kelsi Handy MD Unavailable [phone] Nivia Bruno MD Primary Care Provider [phone] Encounter Details Date Type Department Care Team ([facility] Contact Info) Description 09/25/2021 Telephone [facility] Behavioral Health Intake [address] [place] [address] Generic, Behavioral Intake, Social History [...] minutes: 120 mins Visit Type (Robert - 8280 / Zoom - 2656 / In-person or Treatment - 870) :zoom 2657 Additional notes: documented in this encounter Plan of Treatment Not on file documented as of this encounter Visit Diagnoses Not on filedocumented in this encounter Additional Health Concerns Assessment Noted Time PHQ-9 Depression Total Score: 7 06/14/19 22 10:59 AM COMPRESSOR HOUSE OPERATOR documented as of this encounter Care Teams Graphic Art Sales Representative Relationship Specialty Start Date End Date iNvia Bruno MD [address] [place] [address] PCP - General 03/22/21 Kelsi Handy MD [address] [place] [address] Assigned OBGYN Provider 04/23/20 3 documented as of this encounter
--- OUTSIDE RECORDS SUMMARY | 2023-12-26 21:40 | XMS_ITS | Clinical Summary ---
Author Organization [facility] Address [address] [place] [address] Care Team Providers Care Heat Set Operator Name Role Phone Nivia Bruno MD Primary Care Provider [phone] Allergies Active Allergy Reactions Criticality Noted Date [...] Take 1 tablet by mouth 07/22/2014 Active Queens[place]-3 1000 MG CAPS 04/02/2016 Acti ve Saline (SODIUM CHLORIDE) 0.65 % SOLN Wild Rose 1 spray in nostril 01/28/2015 Active traZODone [...] BASIC METABOLIC PANEL Routine 06/23/2017 6:00 AM PRACTICAL MINISTRIES PROFESSOR from Last 3 Months or Most Recently Relevant to Health Maintenance Results * Basic metabolic panel (06/23/2017 6:00 AM PRACTICAL MINISTRIES PROFESSOR) Sodium 139 136 - 145 mmol/L 06/23/2017 10:13 AM [facility] Potassium 4.2 3.5 - 5.0 mmol/L 06/23/2017 10:13 AM [facility] Chloride 103 98 - 107 mmol/L 06/23/2017 10:13 AM [facility] Carbon Dioxide (CO2) 29 22 - 31 mmol/L 06/23/2017 10:13 AM [facility] Anion Gap 7 5 - 18 mmol/L 06/23/2017 10:13 AM [facility] Glucose 105 70 - 125 mg/dL 06/23/2017 10:13 AM [facility] Calcium 9.4 8.5 - 10.5 mg/dL 06/23/2017 10:13 AM [facility] Urea Nitrogen 16 8 - 22 mg/dL 06/23/2017 10:13 AM [facility] Creatinine 0.69 0.60 - 1.10 mg/dL 06/23/2017 10:13 AM [facility] GFR Estimate If Black >60 >60 mL/min/1.7 3m2 06/23/2017 10:13 AM PRACTICAL MINISTRIES PROFESSOR [facility] GFR Estimate >60 >60 mL/min/1.7 [facility] 06/23/2017 10:13 AM [facility] Blood specimen (specimen) STRUCTURE OF LEFT UPPER LIMB / Unknown Venipuncture / Unknown 06/23/2017 6:00 AM PRACTICAL MINISTRIES PROFESSOR 06/23/2017 9:50 AM PRACTICAL MINISTRIES PROFESSOR Narrative [facility] - 06/23/2017 10:13 AM PRACTICAL MINISTRIES PROFESSOR Fasting Glucose reference range is 70-99 mg/dL per [place] Diabetes Association (ADA) guidelines. Rosmery Simpson MD LAB - BLOOD ORDER [facility] [address] [place] [address], [facility] [address] [address] from Last 3 Months or Most Recently Relevant to Health Maintenance Advance Directives For more information, please contact: [phone] * Full Code (Latest Code Status on File) Date Activated Date Inactivated Comments 04/16/2016 1:58 AM 04/22/2016 3:55 PM Care Teams Heat Set Operator Relationship Specialty Start Date End Date Nivia Bruno MD [facility] - General 03/22/21
--- OUTSIDE RECORDS SUMMARY | 2023-12-26 21:40 | XMS_ITS | Encounter Summary ---
Author Organization [facility] Address [address] [place] [address] Care Team Providers Care Freelance Photographer Name Role Phone Heladio Martins MD Primary Care Provider Kelsi Glez MD Unavailable [phone] Nivia Bruno MD Primary Care Provider [phone] Encounter Details Date Type Department Care Team ([facility] Contact Info) Description 03/07/2021 [facility] Behavioral Health Intake [address] [place] [phone] Generic, Behavioral Intake, Social History Tobacco Use [...] 03/06/2021 7:37 PM CDT To: Cheyanne Santana [facility], Quentin Hagan, # Subject: Schedule for PHP on Friday Scheduling Request Patient Name: Juliette Brown Location of programming: [facility] Start Date: 03/12 Group: [id number] 9am to 3pm Attending Provider (): Trent Number of visits to be scheduled: 50 Duration of Appointment in minutes: 360 Visit Type: Zoom - 2652 Additional notes: Patient is currently in PHP at [facility]. She has Medicare and BCBS. Please check ifinsurance will cover another PHP program. Patient was given [employer] phone number. * Telephone Encounter - Jen Serrano - 03/07/2021 7:50 AM CDT ----- Message from KETTY Rollins sent at 03/06/2021 7:37 PM CDT ----- Regarding: Schedule for PHP on Friday Scheduling Request Patient Name: Juliette Brown Location of programming: [facility] Start Date: 03/12 Group: [id number] 9am to 3pm Attending Provider (): Cristianoe Number of visits to be scheduled: 50 Duration of Appointment in minutes: 360 Visit Type: Zoom - 2657 Additional notes: Patient is currently in PHP at [facility]. She has Medicare and BCBS. Please check ifinsurance will cover another PHP program. Patient was given [employer] phone number. documented in this encounter Plan of Treatment Not on file documented as of this encounter Visit Diagnoses Not on filedocumented in this encounter Additional Health Concerns Assessment Noted Time PHQ-9 Depression Total Score: 21 021 12:28 PM CDT documented as of this encounter Care Teams Freelance Photographer Relationship Specialty Start Date End Date Heladio Martins MD PCP - General Internal Medicine 03/05/16 03/21/21 Nivia Bruno MD [address] [facility] [place] [address] PCP - General 03/22/21 Kelsi Handy MD [address] [place] [address] Assigned OBGYN Provider 04/23/20 3 documented as of this encounter
--- OUTSIDE RECORDS SUMMARY | 2023-12-26 21:41 | XMS_ITS | Encounter Summary ---
Author Organization [facility] Address [address], [place] [address] Care Team Providers Care Donor Technician Name Role Phone Needs Pcp, Assignment Primary Care Provider [phone] Encounter Details Date Type Department Care Team (Late st Contact Info) Description 07/12/2019 Lab Requisition [facility] [address] [place] [address] Lul Hunter MD [address] [place], [place] [id number] Encounter for surgical aftercare following surgery on [...] BASIC METABOLIC PANEL Routine 07/13/2019 7:00 AM COMMERCIAL HELICOPTER PILOT Encounter for surgical aftercare following surgery on the nervous system COMPLETE BLOOD COUNT-NO DIFF Routine 07/13/2019 7:00 AM COMMERCIAL HELICOPTER PILOT Encounter for surgical aftercare following surgery on the nervous system documented in this encounter Results * (ABNORMAL) Basic Metabolic Panel (07/13/2019 7:00 AM COMMERCIAL HELICOPTER PILOT) Sodium 136 136 - 145 mmol/L 07/13/2019 12:35 PM COMMERCIAL HELICOPTER PILOT [facility] Potassium 4.7 3.5 - 5.1 mmol/L 07/13/2019 12:35 PM COMMERCIAL HELICOPTER PILOT [facility] Chloride 100 98 - 109 mmol/L 07/13/2019 12:35 PM COMMERCIAL HELICOPTER PILOT [facility] CO2 27 20 - 29 mmol/L 07/13/2019 12:35 PM COMMERCIAL HELICOPTER PILOT [facility] Anion Gap 9 7 - 16 mmol/L 07/13/2019 12:35 PM COMMERCIAL HELICOPTER PILOT [facility] Calcium 9.2 8.4 - 10.4 mg/dL 07/13/2019 12:35 PM COMMERCIAL HELICOPTER PILOT [facility] BUN 18 7 - 26 mg/dL 07/13/2019 12:35 PM COMMERCIAL HELICOPTER PILOT [facility] Creatinine 0.76 0.55 - 1.02 mg/dL 07/13/2019 12:35 PM COMMERCIAL HELICOPTER PILOT [facility] GFR, Estimated >60 >60 mL/min/1.7 3m2 07/13/2019 12:35 PM COMMERCIAL HELICOPTER PILOT [facility] GFR, Est If >60 >60 mL/min/1.7 3m2 07/13/2019 12:35 PM COMMERCIAL HELICOPTER PILOT [facility] Glucose 105(H) 70 - 100 mg/dL 07/13/2019 12:35 PM COMMERCIAL HELICOPTER PILOT [facility] Comment:The given reference range is for the fasting state. Non-fasting reference range for glucose is 70 - 180 mg/dL. Hours Fasting Unknown 07/13/2019 12:35 PM COMMERCIAL HELICOPTER PILOT [facility] Blood Venipuncture / Unknown 07/13/2019 7:00 AM COMMERCIAL HELICOPTER PILOT 07/13/2019 10:40 AM COMMERCIAL HELICOPTER PILOT Lul Hunter MD LAB_1 [facility] [address] * (ABNORMAL) Complete Blood Count-No Diff (07/13/2019 7:00 AM COMMERCIAL HELICOPTER PILOT) WBC 4.7 3.5 - 10.5 x10(9)/L 07/13/2019 11:17 AM COMMERCIAL HELICOPTER PILOT [facility] RBC 3.19(L) 3.90 - 5.03 x10(12)/L 07/13/2019 11:17 AM COMMERCIAL HELICOPTER PILOT [facility] Hemoglobin 10.1(L) 12.0 - 15.5 g/dL 07/13/2019 11:17 AM COMMERCIAL HELICOPTER PILOT [facility] HCT 31.2(L) 34.9 - 44.5 % 07/13/2019 11:17 AM COMMERCIAL HELICOPTER PILOT [facility] MCV 97.8 80.0 - 100.0 fL 07/13/2019 11:17 AM COMMERCIAL HELICOPTER PILOT [facility] MCH 31.7 27.6 - 33.3 pg 07/13/2019 11:17 AM COMMERCIAL HELICOPTER PILOT [facility] MCHC 32.4 31.5 - 35.2 g/dL 07/13/2019 11:17 AM COMMERCIAL HELICOPTER PILOT [facility] RDW 11.7(L) 11.9 - 15.5 % 07/13/2019 11:17 AM COMMERCIAL HELICOPTER PILOT [facility] Platelets 221 150 - 450 x10(9)/L 07/13/2019 11:17 AM COMMERCIAL HELICOPTER PILOT [facility] Automated NRBC 0 <=0 /100 WBC 07/13/2019 11:17 AM COMMERCIAL HELICOPTER PILOT [facility] Blood Venipuncture / Unknown 07/13/2019 7:00 AM COMMERCIAL HELICOPTER PILOT 07/13/2019 10:44 AM COMMERCIAL HELICOPTER PILOT Lul Hunter MD LAB_1 Performing Organization Address City/State/[facility] Co de Phone Number [facility] [address] [place] [address], [facility] documented in this encounter Visit Diagnoses Diagnosis Encounter for surgical aftercare following surgery on the nervous system documented in this encounter Care Teams Donor Technician Relationship Specialty Start Date [place] [address] PCP - General 02/28/21 documented as of this encounter
--- OUTSIDE RECORDS SUMMARY | 2023-12-26 21:41 | XMS_ITS | Encounter Summary ---
Author Organization [facility] Address [address] [address] Care Team Providers Care Operating Room Scheduler Name Role Phone Needs Pcp, Assignment Primary Care Provider [phone] Reason for Visit * Reason Comments CONSULT Encounter Details Date Type Department Care Team (Late st Contact Info) Description 10/01/2023 12:45 PM CDT Office Visit [facility] [address] [place] [address] Leif Stewart PA-C [address] [place], [place] [address] [address] Age-related osteoporosis without current pathological fracture (HRC) [...] you contact your insurance to verify your [id number] expense for all medications, as it may [...] daily through food and supplements. Vitamin D: 4595-8597 IU daily Exercise Aerobic Exercise: Work your [...] pack on the infusion site or taking bowt-axe-sllpfuk pain relievers such as acetaminophen as detailed [...] documented in this encounter Progress Notes * eLif Stewart PA-C - 10/01/2023 12:45 PM CDT [...] in 2020 -- Prolia x 2 years (2535-8851) managed through [facility] Current Treatment: -- Prolia Treatment Duration: 2021-current [...] daily. Indications: clot prevention bacitracin-polymyxin b (POLYSPORIN) 500-49558 UNIT/GM ointment Apply topically two times a [...] at bedtime. Indications: Trouble Sleeping Multiple Minerals-Vitamins ([id number]-D3) TABS Take 1 Tablet by mouth daily. [...] (OCEAN) 0.65 % nasal solution Place 1 [place] into both nostrils every 2 hours as [...] osteoporosis documented in this encounter Care Teams Operating Room Scheduler Relationship Specialty Start Date End Date Needs Pcp, [place] [address] PCP - General 02/28/21 documented as of this encounter
--- OUTSIDE RECORDS SUMMARY | 2023-12-26 21:41 | XMS_ITS | Clinical Summary ---
Author Organization [facility] Address [address] [place] [address] Care Team Providers Care Link Fabric Machine Operator Name Role Phone Needs Pcp, Assignment Primary Care Provider [phone] Source Comments You are receiving this document as you are listed as the primary care provider,follow-up provider, or the patient has been referred to you for consultation.This is in compliance with the Medicare andGood Sam[facility] Hospitalcaid EHR Incentive Program,which states Providers who transition their patient to another setting of careor provider of care or refers their patient to another provider of care shouldprovide summary care record for each transition of care or referral. [facility] Allergies Active Allergy Reactions Criticality Noted Date [...] (OCEAN) 0.65 % nasal solution Place 1 [place] into both nostrils every 2 hours as needed for Congestion. Active bacitracin-polymyx in b (POLYSPORIN) 500-90870 UNIT/GM ointmentIndication s:dry nose Apply topically two [...] (06/14/2019): Added automatically from request for surgery [id number] Sarcoidosis, lung 06/01/2019 Recurrent major depressive disorder [...] Team Description 10/08/2023 2:15 PM CDT E-Visit [address] [address] Leif Stewart PA-C Chief Comp: Follow-up, NOS 10/08/2023 Orders Only HIM DEPARTMENT Provider, MD Kane 10/01/2023 12:45 PM CDT Office Visit [address] [address] Leif Stewart PA-C Age-related osteoporosis without current [...] (145 lb 12.8 oz) 07/16/2019 9:00 PM STRATEGIC ALLIANCES MANAGER Height 172.7 cm (5' 8) 07/15/2019 9:30 PM STRATEGIC ALLIANCES MANAGER Body Mass Index 22.17 07/15/2019 9:30 PM STRATEGIC ALLIANCES MANAGER Plan of Treatment Health Maintenance Due Date [...] this topic Medical Devices Implanted Type Area Event Planner Device Identifier Shelf Expiration Date Model / Serial / Lot Chip Canc Crouton 30cc - [id number] Implanted:Qty: 1 on 07/07/2019 by Tobias Martin MD at [facility] DEVICE Right: LEG [employer] - [employer] 06/30/2023 [id number] / [id number] / [id number] Chip Canc Crouton 30cc - [id number] Implanted:Qty: 1 on 07/07/2019 by Tobias Martin MD at [facility] DEVICE Right: LEG [employer] - [employer] 06/30/2023 [id number] / [id number] / [id number] Procedures Procedure Name Priority Date/Time [...] Negative (Non Reactive) 08/25/2018 4:34 PM CDT [facility] Comment:HIV-1 p24 Antigen an d HIV-1/HIV-2 Antibody not detected Blood Venipuncture / Unknown 08/25/2018 11:24 AM CDT 08/25/2018 11:24 AM CDT Carin Rainey MD LAB_1 Performing Organization Address [facility] Co de Phone Number [facility] [address] * HCAB - Hepatitis C Virus Paula with Reflex In-House (08/25/2018 11:24 AM CDT) Hepatitis C Antibody Negative (Non Reactive) Negative (Non Reactive) 08/25/2018 4:34 PM CDT [facility] Comment:Antibodies to HCV no t detected. Does not exclude the possiblity of exposure to HCV. Blood Venipuncture / Unknown 08/25/2018 11:24 AM CDT 08/25/2018 11:24 AM CDT Carin Rainey MD LAB_1 Performing Organization Address [facility] de Phone Number [facility] [address] [place] [address] * MM Mammogram Screening Bilat W CAD [...] Documents on File Type Date Recorded Patient Skilled Nursing Facilities Professional Expl anation HEALTHCARE DIRECTIVE 07/10/2019 ADVANCE D DIRECTIVE 07/10/2019 * Full Code (Latest Code Status on File) Date Activated Date Inactivated Comments 07/15/2019 9:18 PM 07/20/2019 4:20 PM * Full Code Date Activated Date Inactivated Comments 07/07/2019 4:33 PM 07/10/2019 6:22 PM Care Teams Link Fabric Machine Operator Relationship Specialty Start Date End Date Needs Pcp, [place] [address] PCP - General 02/28/21
--- OUTSIDE RECORDS SUMMARY | 2023-12-26 21:41 | XMS_ITS | Encounter Summary ---
Author Organization [facility] Address [address] [place] [address] Care Team Providers Care Hydraulic Punch Press Operator Name Role Phone Heladio Martins MD Primary Care Provider Kelsi Glez MD Unavailable [phone] Nivia Bruno MD Primary Care Provider [phone] Reason for Visit * Reason Onset Date Comments MH/CD Inpatient 04/15/2016 Encounter Details Date Type Department Care Team ([facility] Contact Info) Description 04/15/2016 Telephone [facility] Behavioral Health Intake [address] [place] [address] Generic, Behavioral Intake, MD MH/CD Inpatient Social [...] as it is after 10pm); unit notified A DECORATOR documented in this encounter Plan of Treatment Not on file documented as of this encounter Visit Diagnoses Not on filedocumented in this encounter Care Teams Hydraulic Punch Press Operator Relationship Specialty Start Date End Date Heladio Martins MD PCP - General Internal Medicine 03/05/16 03/21/21 Nivia Bruno MD [address] [place] [address] PCP - General 03/22/21 Kelsi Handy MD [address] [place] [address] Assigned OBGYN Provider 04/23/20 3 documented as of this encounter
--- OUTSIDE RECORDS SUMMARY | 2023-12-26 21:41 | XMS_ITS | Encounter Summary ---
Author Organization [facility] Address [address], [place] [address] Care Team Providers Care Debeaker Name Role Phone Needs Pcp, Assignment Primary Care Provider [phone] Reason for Visit * Auth/Cert Specialty Diagnoses / Procedures Referred By Contac t Referred To Contact Diagnoses Diarrhea of presumed infectious origin Fibromyalgia Diarrhea of presumed infectious origin Fibromyalgia Diarrhea of presumed infectious origin Fibromyalgia Referral ID Status Reason Start Date Expiration Date Visits Re quested Visits Authorized [id number] 1 1 Encounter Details Date Type Department Care Team (Latest Contact Info) Description 07/15/2019 Lab Requisition [facility] [address] [facility] [place] [address] Lul Hunter MD [address] [place], [place] [id number] Enterocolitis due to Clostridium difficile, not specified [...] C.DIFFICILE TOXIN,MOLECULAR DETECTION Routine 07/15/2019 10:00 PM ENERGY CROP FARMER Enterocolitis due to Clostridium difficile, not specified as recurrent documented in this encounter Results * (ABNORMAL) C.Difficile Toxin,Molecular Detection, (07/15/2019 10:00 PM ENERGY CROP FARMER) C.difficile by PCR Detected( A) Not Detected 07/15/2019 11:30 PM ENERGY CROP FARMER [facility] Stool Non-blood Collection / Unknown 07/15/2019 10:00 PM ENERGY CROP FARMER 07/15/2019 10:24 PM ENERGY CROP FARMER Narrative [facility] - 07/15/2019 11:30 PM ENERGY CROP FARMER Methodology: Qualitative real-time PCR assay to detect the Clostridium difficile toxin B gene. Lul Hunter MD LAB_1 [facility] [address] [place], [place] [address] [place] [address] documented in this encounter Visit Diagnoses Diagnosis Enterocolitis due to Clostridium difficile, not specified as recurrent documented in this encounter Care Teams Debeaker Relationship Specialty Start Date End Date Needs Pcp, [place] [address] PCP - General 02/28/21 documented as of this encounter
--- OUTSIDE RECORDS SUMMARY | 2023-12-26 21:41 | XMS_ITS | Encounter Summary ---
Author Organization [facility] Address [address] [place] [address] Care Team Providers Care Concrete Pipe Making Machine Operator Name Role Phone Needs Pcp, Assignment Primary Care Provider [phone] Encounter Details Date Type Department Care Team (Latest Contact Info) Description 10/08/2023 Orders Only HIM DEPARTMENT Provider, [place] [address] Social History Tobacco Use Types Packs/Day Years [...] on filedocumented in this encounter Care Teams Concrete Pipe Making Machine Operator Relationship Specialty Start Date End Date Needs Pcp, [place] [address] PCP - General 02/28/21 documented as of this encounter
--- OUTSIDE RECORDS SUMMARY | 2023-12-26 21:41 | XMS_ITS | Encounter Summary ---
Author Organization [facility] Address [facility] [place] [address] Care Team Providers Care Blasting Contract Man Name Role Phone Heladio Martins MD Primary Care Provider Kelsi Glez MD Unavailable [phone] Nivia Bruno MD Primary Care Provider [phone] Encounter Details Date Type Department Care Team (Latest Contact Info) Description 03/06/2021 [facility] Treatment Plan [facility] [address] [place] [phone] Dav Tierney MD [address] [place] [address] Megan uRiz, SHANNON Major depressive disorder, recurrent episode, severe [...] documented as of this encounter Care Teams Blasting Contract Man Relationship Specialty Start Date End Date Heladio Martins MD PCP - General Internal Medicine 03/05/16 03/21/21 Nivia Bruno MD [address] [facility] [address] PCP - General 03/22/21 Kelsi Handy MD [address] [place] [address] Assigned OBGYN Provider 04/23/20 3 documented as of this encounter
--- OUTSIDE RECORDS SUMMARY | 2023-12-26 21:41 | XMS_ITS | Encounter Summary ---
Author Organization [employer] Address [address] [place] [address] Care Team Providers Care Orthopedics Teacher Name Role Phone Needs Pcp, Assignment Primary Care Provider [phone] Reason for Visit * Reason Comments Follow-up, NOS Entered automaticall y based on patient selection in [facility] [employer]. Encounter Details Date Type Department Care Team (Late st Contact Info) Description 10/08/2023 2:15 PM CDT E-Visit [facility] [address] [place] [address] Leif Stewart PA-C [address] [place] [address] [place] [address] Chief Comp: Follow-up, NOS Social History Tobacco [...] can I have the infusion at the [facility]? Their telephone # is . Thank you for your time. Kind Regards, Juliette documented in this encounter Plan of Treatment Not on file documented as of this encounter Visit Diagnoses Not on filedocumented in this encounter Care Teams Orthopedics Teacher Relationship Specialty Start Date End Date Needs Pcp, [place] [address] PCP - General 02/28/21 documented as of this encounter
--- OUTSIDE RECORDS SUMMARY | 2023-12-26 21:41 | XMS_ITS | Encounter Summary ---
Author Organization [facility] Address [address] [place] [address] Care Team Providers Care Felt Hat Pouncing Operator Hand Name Role Phone Needs Pcp, Assignment Primary Care Provider [phone] Encounter Details Date Type Department Care Team (Late st Contact Info) Description 07/16/2019 Lab Requisition [facility] [address] [facility]. [place], [place] [id number] Lul Hunter MD [address] [place], [place] [id number] Encounter for surgical aftercare following surgery on [...] organs documented in this encounter Care Teams Felt Hat Pouncing Operator Hand Relationship Specialty Start Date End Date Needs Pcp, [facility] [place], [place] [id number] PCP - General 02/28/21 documented as of this encounter
[2023-12-26 21:51] LABS: Creatinine, Point-of-Care* 0.8 mg/dl (0.6-1.3)
[2023-12-26 21:52] LABS: Eosinophils Absolute Auto 0.03 K/uL (0.00-0.50); Eosinophils Percent Auto 0.4 % (0.0-7.0); Hematocrit 40.7 % (33.0-51.0); Hemoglobin* 13.5 gm/dL (12.0-16.0); Immature Granulocytes Abs Auto 0.03 K/uL (0.00-0.30); Immature Granulocytes Pct Auto 0.4 %; Lymphocytes Percent Auto 17.9 % (20-44); Mean Corpuscular HGB Conc 33 gm/dL (32-36); Mean Corpuscular Hemoglobin 30 pg (26-34); Mean Corpuscular Volume 92 fL (80-100); Monocytes Percent Auto 6.7 % (0.0-11.0); Neutrophils Percent Auto 74.6 % (42.0-72.0); Platelet Count* 237 K/uL (140-440); RDW Coefficient of Variation % 11.4 % (11.5-15.5); Red Blood Count 4.44 m/uL (4.00-5.20); White Blood Count* 8.36 K/uL (4.50-11.00)
[2023-12-26 21:54] LABS: Appearance Urine Clear (Clear); Bilirubin Urine Negative (Negative); Blood Urine Negative (Negative); Color Urine Yellow (Yellow); Glucose Urine Negative (Negative); Ketones Urine Negative (Negative); Leukocyte Esterase Urine Negative (Negative); Nitrite Urine Negative (Negative); Protein Urine Negative (Negative); Urobilinogen Urine 0.2 (0.2-1.0); pH Urine 5.5 (5.0-8.5)
[2023-12-26 21:55] LABS: Slide Review Reflex No
[2023-12-26 21:59] LABS: RBC Urine 0-2 (0-2); Squamous Epithelial Cell Urine Moderate (None-Few)
[2023-12-26 22:03] LABS: Albumin* 4.5 g/dL (3.3-5.0); Chloride* 104 mmol/L (96-114); Potassium* 4.5 mmol/L (3.6-5.1); Sodium* 133 mmol/L (135-149)
[2023-12-26 22:05] LABS: Anion Gap 6 mEq/L (7-15); Bilirubin Total* 0.4 mg/dL (0.1-1.5); Carbon Dioxide* 23 mmol/L (20-32); Creatinine* 0.8 mg/dL (0.5-1.5); Estimated Glomerular Filt Rate 82 ml/min
[2023-12-26 22:06] LABS: Alanine Aminotransferase* 17 U/L (4-35); Alkaline Phosphatase* 49 U/L (40-150); Aspartate Amino Transferase* 28 U/L (12-35); Blood Urea Nitrogen* 22 mg/dL (7-30); Calcium* 9.1 mg/dL (8.4-10.6); Glucose* 115 mg/dL (60-115); Lipase* 308 U/L (23-300); Magnesium* 2.4 mg/dL (1.5-2.6); Total Protein* 7.2 g/dL (6.0-8.3)
[2023-12-26] MEDS: KETOROLAC 15 MG/ML inj IVP (22:20)
[2023-12-26] MEDS: HYDROmorphone 0.5 mg/0.5 ml inj IVP (23:18)
[2023-12-26] MEDS: 0.9 % SODIUM CHLORIDE 1000 ml 1,000 ML IV (23:39)
== END 2023-12-27 00:30 | disposition home or self-care (01) ==
PROVIDERS: Emergency Provider Student in an Organized Health Care Education/Training Program; PCP Family Medicine
DX: R10.12 Left upper quadrant pain (principal)
CPT/HCPCS: 36415; 74177; 80053; 81001; 82565; 83690; 83735; 84484; 85025; 96374; 96375; 99283; 99284; A9270; J1170; J1885; J7030; Q9967

== ENCOUNTER 2024-01-04 14:34 | Outpatient (CLI) | payer MEDICARE, BC, SELFPAY ==
--- OUTSIDE RECORDS SUMMARY | 2024-01-09 00:08 | XMS_ITS | Clinical Summary ---
Author Organization [facility] Address [address] [place] [address] Care Team Providers Care Autocad Designer Name Role Phone Nivia Bruno MD Primary Care Provider [phone] Allergies Active Allergy Reactions Criticality Noted Date [...] Take 1 tablet by mouth 07/22/2014 Active Ames-3 1000 MG CAPS 04/02/2016 Acti ve Saline (SODIUM CHLORIDE) 0.65 % SOLN [place] 1 spray in nostril 01/28/2015 Active traZODone [...] Risk 2-dose series) 10/26/2008 04/27/2008 RSV VACCINE (1 - 1-dose 60+ series) 2019 GLUCOSE 06/23/2020 06/23/2017, 04/15/2016 PHQ-9 12/11/2021 06/13/2021, 12/10/2020, 03/21/2021, Additional history exists COVID-19 Vaccine ( [...] BASIC METABOLIC PANEL Routine 06/23/2017 6:00 AM CAN PILER from Last 3 Months or Most Recently Relevant to Health Maintenance Results * Basic metabolic panel (06/23/2017 6:00 AM CAN PILER) Sodium 139 136 - 145 mmol/L 06/23/2017 10:13 AM [facility] Potassium 4.2 3.5 - 5.0 mmol/L 06/23/2017 10:13 AM [facility] Chloride 103 98 - 107 mmol/L 06/23/2017 10:13 AM [facility] Carbon Dioxide (CO2) 29 22 - 31 mmol/L 06/23/2017 10:13 AM [facility] Anion Gap 7 5 - 18 mmol/L 06/23/2017 10:13 AM [facility] Glucose 105 70 - 125 mg/dL 06/23/2017 10:13 AM [facility] Calcium 9.4 8.5 - 10.5 mg/dL 06/23/2017 10:13 AM [facility] Urea Nitrogen 16 8 - 22 mg/dL 06/23/2017 10:13 AM [facility] Creatinine 0.69 0.60 - 1.10 mg/dL 06/23/2017 10:13 AM [facility] GFR Estimate If Black >60 >60 mL/min/1.7 3m2 06/23/2017 10:13 AM [facility] GFR Estimate >60 >60 mL/min/1.7 3m2 06/23/2017 10:13 AM [facility] Blood specimen (specimen) STRUCTURE OF LEFT UPPER LIMB / Unknown Venipuncture / Unknown 06/23/2017 6:00 AM [facility] PILER 06/23/2017 9:50 AM [facility] PILER Narrative [facility] - 06/23/2017 10:13 AM [facility] PILER Fasting Glucose reference range is 70-99 mg/dL per [place] Diabetes Association (ADA) guidelines. Rosmery Simpson MD LAB - BLOOD ORDER [facility] [address] [place] [id number], [facility] [address] [place] [phone] from Last 3 Months or Most Recently Relevant to Health Maintenance Advance Directives For more information, please contact: [phone] * Full Code (Latest Code Status on File) Date Activated Date Inactivated Comments 04/16/2016 1:58 AM 04/22/2016 3:55 PM Care Teams Autocad Designer Relationship Specialty Start Date End Date Nivia Bruno MD PCP - General 03/22/21
--- OUTSIDE RECORDS SUMMARY | 2024-01-09 00:08 | XMS_ITS | Encounter Summary ---
Author Organization [facility] Address [address] [place] [address]. [place] [address] Care Team Providers Care Spa Receptionist Name Role Phone Kelsi Handy MD Unavailable [phone] Nivia Bruno MD Primary Care Provider [phone] Encounter Details Date Type Department Care Team ([facility] Contact Info) Description 09/25/2021 Telephone [facility] Behavioral Health Intake [address] [place] [address] Generic, Behavioral Intake, Social History [...] Patient Name: ?? Location of programming: [facility] Start Date: 09/27/21 Group (BHxxxxx on #days of the week# at #start time to end time#): 55+ clinic 1 Provider (name of MD):kerry Number of visits to be scheduled: 1 Duration of Appointment in minutes: 120 mins Visit Type (Robert - 0414 / Zoom - 2656 / In-person or Treatment - 870) :zoom 2657 Additional notes: documented in this encounter Plan of Treatment Not on file documented as of this encounter Visit Diagnoses Not on filedocumented in this encounter Additional Health Concerns Assessment Noted Time PHQ-9 Depression Total Score: 7 06/14/19 22 10:59 AM PRINTED CIRCUIT DESIGNER documented as of this encounter Care Teams Spa Receptionist Relationship Specialty Start Date End Date Nivia Bruno MD [address] [place] [address] PCP - General 03/22/21 Kelsi Handy MD [address] [place] [address] Assigned OBGYN Provider 04/23/20 3 documented as of this encounter
--- OUTSIDE RECORDS SUMMARY | 2024-01-09 00:08 | XMS_ITS | Encounter Summary ---
Author Organization [facility] Address [address] [place] [address] Care Team Providers Care Entry Level Software Developer Name Role Phone Kelsi Handy MD Unavailable [phone] Nivia Bruno MD Primary Care Provider [phone] Encounter Details Date Type Department [facility] Description 06/13/2021 Telephone [facility] Behavioral Health Intake [address] [place] [address] Generic, Behavioral Intake, Social History [...] KETTY Lynn sent at 06/29/2021 11:41 AM LABELING MACHINE OPERATOR ----- Regarding: new start Clinic 1 on 07/05 Scheduling Request Patient Name: Juliette Brown Location of programmin+ Start Date: June Group: Clinic 1 on at 1:00 to 3:00PM Attending Provider (MD): 12 Number of visits to be scheduled: 12 Duration of Appointment in minutes: 120 min Visit Type: Zoom - 2657 Additional notes: LING MACHINE OPERATOR * Telephone Encounter - Jen Serrano - 06/13/2021 9:38 AM CST ----- Message from SHANNON Warner sent at 06/13/2021 9:12 AM LABELING MACHINE OPERATOR ----- Regarding: add appointment Scheduling Request Patient Name: ?? Location of programming: [facility] 55+ Start Date:06/13/21 Group (BHxxxxx on #days of the week# at #start time to end time#): 55+ B1 M,W,F 1-4pm Provider (name of MD): Niall Number of visits to be scheduled: 1 Duration of Appointment in minutes: 180 mins Visit Type (Robert - 6682 / Zoom - 5577 / In-person or Treatment - 870) :2657-zoom Additional notes: LING MACHINE OPERATOR documented in this encounter Plan of Treatment Not on file documented as of this encounter Visit Diagnoses Not on filedocumented in this encounter Additional Health Concerns Assessment Noted Time PHQ-9 Depression Total Score: 7 06/14/19 22 10:59 AM LABELING MACHINE OPERATOR documented as of this encounter Care Teams Entry Level Software Developer Relationship Specialty Start Date End Date Nivia Bruno MD [address] [place] [address] PCP - General 03/22/21 Kelsi Handy MD [address] [place] [address] Assigned OBGYN Provider 04/23/20 3 documented as of this encounter
--- OUTSIDE RECORDS SUMMARY | 2024-01-09 00:08 | XMS_ITS | Clinical Summary ---
Author Organization [facility] Address [place], [place] [address] Care Team Providers Care Research Group Director Name Role Phone Nivia Bruno MD Primary Care Provider Judie Carreno PharmD Unavailable [phone] Allergies Active Allergy Reactions Criticality Noted Date [...] injury due to substance overdose Inhale 1 [place] into affected nostril(s) each time if needed [...] Apple Cider Vinegar - PRN NN Ultimate [facility]-3 - daily Body Bio Balance Oil (omega-3/omega-6 [...] Encounters Date Type Department Care Team Description 01/06/2024 1:00 PM CDT Phone Office Visit [facility] [address] [place] [address] Keiko Downs LICSW Individual Therapy; Phone Visit 01/06/2024 Orders Only [facility] Scanner 1 scan: (1-Ord) SWITCH[place], PELVIC TRANSVAGINAL, 01/06/2024 01/06/2024 Travel 12/26/2023 2:00 PM CDT Procedure Only [facility] [address] [place] [address] Tyler Parson L Ac Acupuncture 12/26/2023 Orders Only [facility] Scanner 1 scan: (1-Ord) [facility], ABDOMEN AND PELVIS W/CONTRAST, 12/26/2023 12/26/2023 Travel 12/23/2023 1:00 PM CDT Phone Office Visit [facility] [address] [place] [address] Keiko Downs LICSW Individual Therapy; Phone Visit 12/23/2023 Travel 12/17/2023 2:30 PM CDT Pharmacist Medication Management [facility] [address] [place] [address] Judie Carreno, PharmD Pharmacist Medication Management ([facility] follow-up - [facility] patient - depression/pain) 12/17/2023 9:00 AM CDT Procedure Only [facility] [address] [place] [address] Facundo Mijares MD Procedure (Ultrasound guided injection lef... 12/16/2023 1:00 PM CDT Phone Office Visit [facility] [address] [place] [address] Keiko Downs LICSW Individual Therapy; Phone Visit 12/16/2023 Travel 12/12/2023 2:00 PM CDT Procedure Only [facility] [address] [place] [address] Tyler Parson L Ac Acupuncture 12/12/2023 11:15 AM CDT Phone Office Visit [facility] [address] [place] [address] Freda Serrano MD Follow Up 12/12/2023 Travel 12/10/2023 Refill [facility] [place] [address] Freda Serrano MD Refill Request (Vilazodone) 12/10/2023 Orders Only [facility] [place] [address] Facundo Mijares MD 1 scan: (1-Ord) [place], [place] BONE 3 PHASE, 12/04/2023 12/09/2023 1:00 PM CDT Phone Office Visit [facility] [place] [address] Keiko Downs [facility] Individual Therapy; Phone Visit 12/09/2023 Telephone [facility] [place] [address] Facundo Mijares MD Questions 12/09/2023 Travel 12/02/2023 1:00 PM CDT Phone Office Visit [facility] [place] [address] Keiko Downs [facility] Individual Therapy; Phone Visit 12/02/2023 Travel 12/01/2023 Telephone [facility] [place] [address] Facundo Mijares MD FYI 11/28/2023 2:00 PM CDT Procedure Only [facility] [address] [place] [address] Tyler Parson L Ac Acupuncture 11/27/2023 11:05 AM CDT Office Visit [facility] [place] [address] Kourtney Cherry PA UTI (Or Yeast Infection) 11/27/2023 Telephone [facility] [address] [place] [address] Facundo Mijares MD Questions 11/27/2023 Travel 11/25/2023 11:30 AM CDT Phone Office Visit [facility] [address] [place] [address] Keiko Downs [facility] Individual Therapy; Phone Visit 11/25/2023 Travel 11/24/[address] [address] Facundo Mijares MD Prior Authorization (lidocaine 5 % topical patch (APPROVED 11/24/2023- Until Further Notice)) 11/19/2023 4:00 PM CDT Office Visit [address] [address] Facundo Mijares MD Musculoskeletal Problem (Follow Up Right Leg Pain ) 11/19/2023 2:00 PM CDT Pharmacist Medication Management [address] [address] Judie Carreno, AugustaD Pharmacist Medication Management ([facility] follow-up - [facility] patient - pain/depression treatment) 11/19/2023 Travel 11/18/2023 1:00 PM CDT Phone Office Visit [address] [address] Keiko Downs [facility] Individual Therapy; Phone Visit 11/18/[address] [address] Facundo Mijares MD Appointment Request 11/17/2023 1:45 PM CDT Phone Office Visit [address] [address] Freda Serrano MD Phone Visit; Medication Management (Not doing very well today, Has MONTALVO, ) 11/17/2023 Travel 11/11/2023 1:00 PM CDT Phone Office Visit [facility] [address] [place] [address] Keiko Downs [facility] Individual Therapy; Phone Visit 11/10/2023 11:00 AM CDT Office Visit [facility] [address] [place] [address] Jyoti Sellers PA Follow Up (UTI, new plan) 11/10/2023 Travel 11/07/2023 1:00 PM CDT Procedure Only [facility] [address] [place] [address] Tyler Parson L Ac Acupuncture 11/07/2023 Travel 11/05/2023 Lab Requisition [facility] [phone] Corine Guillaume MD 11/04/2023 1:00 PM CDT Phone Office Visit [facility] [address] [place] [address] Keiko Downs [facility] Individual Therapy; Phone Visit 11/04/2023 11:15 AM CDT Phone Office Visit [facility] [address] [place] [address] Freda Serrano MD Phone Visit; Follow Up 11/04/2023 Travel 10/31/2023 2:30 PM CDT Procedure Only [facility] [address] [place] [address] Tyler Parson L Ac Acupuncture 10/31/2023 Travel 10/30/2023 10:40 AM CDT Office Visit [facility] [address] [address] [place] [phone] Tomas Mckeon MD Consult (Sore on inside on mouth. upper lips. Nasal congestion. Deviated septum) 10/29/2023 3:30 PM CDT Pharmacist Medication Management [facility] [address] [place] [address] Judie Carreno, Zoraida Pharmacist Medication Management ([facility] follow-up - [facility] patient - pain/MH) 10/29/2023 Travel 10/28/2023 11:30 AM CDT Phone Office Visit [facility] [address] [place] [address] Keiko Downs, [facility] Individual Therapy; Phone Visit 10/28/2023 Travel 10/24/2023 11:15 AM CDT Phone Office Visit [facility] [address] [place] [address] Freda Serrano MD Follow Up; Phone Visit 10/24/2023 Travel 10/22/2023 11:05 AM CDT Office Visit [facility] [address] [place] [address] Kourtney Cherry PA Mouth/Lip Problem 10/22/2023 10:00 AM CDT Phone Office Visit [facility] [address] [place] [address] Jyoti Sellers PA Phone Visit; Follow Up (Labs, medication ) 10/22/2023 Travel 10/22/2023 Telephone [facility] [address] [place] [address] Jyoti Sellers PA Appointment (Cancellation note per patient) 10/21/2023 11:30 AM CDT Phone Office Visit [facility] [address] [place] [address] Keiko Downs [facility] Individual Therapy; Phone Visit 10/21/2023 Travel 10/17/2023 2:30 PM CDT Procedure Only [facility] [address] [place] [address] Tyler Parson L Ac Acupuncture 10/17/2023 10:30 AM CDT Pharmacist Medication Management [facility] [address] [place] [address] Judie Carreno, Zoraida Pharmacist Medication Management ([facility] follow-up - [facility] patient - phone visit) 10/17/2023 Patient Outreach [facility] [address] [place] [address] Aubree Nuñez, RN Primary RN Care Management ([facility] referral ) 10/16/[address] [address] Judie Carreno PharmD Medication Management 10/16/2023 Travel 10/16/2023 Refill [facility] [address] [place] [address] Freda Serrano MD Refill Request (Escitalopram Oxalate) 10/15/2023 1:45 PM CDT Ancillary Procedure [address] [address] 10/15/2023 1:00 PM CDT Office Visit [address] [address] Facundo Mijares MD Follow Up (Fell a week ago-pain right shoulder and right leg pain) 10/14/2023 1:00 PM CDT Phone Office Visit [address] [phone] Keiko Downs, [facility] Individual Therapy; Phone Visit 10/14/2023 Travel 10/13/[address] [address] Facundo Mijares MD Error-please disregard (as soon as possible); Appointment Request 10/10/2023 2:00 PM CDT Procedure Only [address] [address] Tyler Parson L Ac Acupuncture 10/10/2023 Travel 10/09/2023 Refill [facility] [address] [place] [address] Nivia Bruno MD Refill Request 10/09/2023 Patient Outreach [facility] Care Management - Care Management Navigation/[facility] [place] [address] Kulwant Palmer Care Management Intake (Engagement Outreach/) from Last 3 Months Immunizations Name Administration Dates Next Due COVID-19 vaccine (Pfizer-Bio NTech 30mcg/0.3mL) 12YO+ TOMER-SUCROSE PF, MDV 08/21/2021 COVID-19 vaccine (Pfizer-Bio NTech 30mcg/0.3mL) PF, MDV 08/09/2020,07/19/2020 DTaP 09/30/2005 Hepatitis A (Adult) 04/27/2008 Hepatitis B (Adult) 03/03/2002,08/11/2001,2001 Influenza Virus, Unspecified 02/18/2007,02/23/20 Influenza, IIV3 (Age 6-35 mos) 02/07/2014,2010 Influenza, [...] T Respiratory Rate 16 04/01/2022 3:21 PM PROGRAM MANAGER SLP Oxygen Saturation 97% 12/17/2023 9:09 AM CDT Inhaled Oxygen Concentration - - Weight 74.6 kg (164 lb 8 oz) 11/19/2023 4:05 PM CDT Height 174 cm (5' 8.5) 04/14/2023 2:10 PM PROGRAM MANAGER SLP Body Mass Index 24.65 04/14/2023 2:10 PM PROGRAM MANAGER SLP Plan of Treatment Upcoming Encounters Date Type Department Care Team (Late st Contact Info) Description 01/13/2024 1:45 PM CDT Phone Office Visit [facility] [address] [place] [phone] Keiko Downs, [facility] [address] [place] [address] 01/16/2024 1:00 PM CDT Procedure Only [facility] [address] [place] [address] Tyler Parson L Ac [address] [facility] [place] [address] 01/21/2024 2:00 PM CDT Pharmacist Medication Management [facility] [address] [place] [address] Judie Carreno, PharmD [address] [place] [address] [place] [address] 01/23/2024 1:00 PM CDT Procedure Only [facility] [address] [place] [address] Tyler Parson L Ac [address] [place] [address] 01/30/2024 1:00 PM CDT Procedure Only [facility] [address] [place] [address] Tyler Parson L Ac [address] [place] [address] 02/06/2024 11:00 AM CDT Procedure Only [facility] [address] [place] [address] Tyler Parson L Ac [address] [place] [address] 02/13/2024 1:00 PM CDT Procedure Only [facility] [address] [place] [address] Tyler Parson L Ac [address] [place] [address] 02/27/2024 1:00 PM CDT Procedure Only [facility] [address] [place] [address] Tyler Parson L Ac [address] [facility] [place] [address] 03/05/2024 11:00 AM CDT Procedure Only [facility] [address] [place] [address] Tyler Parson L Ac [address] [facility] [place] [address] 03/12/2024 11:15 AM CDT Phone Office Visit [facility] [address] [place] [address] Freda Serrano MD [address] [place] [address] 03/12/2024 1:00 PM CDT Procedure Only [facility] [address] [place] [address] Tyler Parson L Ac [address] [facility] [place] [address] 03/19/2024 10:30 AM PROGRAM MANAGER SLP Procedure Only [facility] [address] [place] [address] Tyler Parson L Ac [address] [place] [address] 03/26/2024 1:00 PM PROGRAM MANAGER SLP Procedure Only [facility] [address] [place] [address] Tyler Parson L Ac [address] [place] [address] 04/02/2024 1:00 PM PROGRAM MANAGER SLP Procedure Only [facility] [address] [place] [address] Tyler Parson L Ac [address] [facility] [address] 04/07/2024 10:00 AM PROGRAM MANAGER SLP Procedure Only [facility] [address] [place] [address] Tyler Parson L Ac [address] [facility] [place] [address] 04/12/2024 2:00 PM PROGRAM MANAGER SLP Procedure Only [facility] [address] [place] [address] Tyler Parson L Ac [address] [facility] [place] [address] 04/23/2024 1:00 PM PROGRAM MANAGER SLP Procedure Only [facility] [address] [place] [address] Tyler Parson L Ac [address] [facility] [place] [address] 04/30/2024 1:00 PM PROGRAM MANAGER SLP Procedure Only [facility] [address] [place] [address] Tyler Parson L Ac [address] [place] [address] 05/07/2024 1:00 PM PROGRAM MANAGER SLP Procedure Only [facility] [address] [place] [address] Tyler Parson L Ac [address] [place] [address] Health Maintenance Due Date Last Done Comments Influenza for age 50-64 01/11/2024 03/16/20 22, 03/27/2021, 02/24/2020, Additional history exists BMI (ht [...] Procedure Name Priority Date/Time Associated Diagnosis Comments SCAN-ULTRASOUND REPORT 12:00 AM CDT ACUPUNCTURE PLAN OF CARE Routine 12/26/2023 2:15 PM CDT Other low back pain SCAN-CT INTERPRETATION 12:00 AM CDT BEDSIDE US STUDY ARCHIVE Routine 12/17/2023 10:43 [...] EVENT Routine 11/04/2023 3: 50 PM CDT STUD BEEF CATTLE 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 THIN PREP PAP SCREEN IMAGED Routine 11/04/2023 [...] 2:55 PM CDT Other low back pain XR MAMMO EVA BILAT SCREEN Routine 08/01/2023 3:29 PM CDT Visit for screening mammogram LIPID PANEL W REFLEX MEASURED LDL Routine 07/08/2023 12:07 PM PROGRAM MANAGER SLP Hyperlipidemia, unspecified hyperlipidemia type SCAN-COLONOSCOPY 01/28/2022 1:00 PM CDT ANTI HIV 1/2 Routine 06/01/2018 4:02 PM PROGRAM MANAGER SLP Exposure to STD ANTI HCV Routine 09/30/2017 5:38 PM CDT STD exposure from Last 3 Months or Most Recently Relevant to Health Maintenance Results * SCAN-ULTRASOUND REPORT (01/06/2024 12:00 AM CDT) Anatomical Region Laterality Modality Other Scanner OTHER * SCAN-CT INTERPRETATION (12/26/2023 12:00 AM CDT) Anatomical Region Laterality Modality Other Scanner OTHER * BEDSIDE US STUDY ARCHIVE (12/17/2023 10:43 AM CDT) Narrative Maureen Martinez David - 12/17/2023 10:43 AM CDT The patient [...] SPECIES Negative Negative 4 3:30 AM CDT [facility] CARMELO GLABRATA Negative Negative 11/28/2023 3:30 AM CDT [facility] [employer] TRICHOMONAS VVA Negative Negative 4 3:30 AM CDT [facility] BACTERIAL VAGINOSIS Negative Negative 11/28/2023 3:30 AM CDT [facility] Other VAGINAL SWAB / Unknown Non-Blood / Unknown 11/27/2023 11:30 AM CDT 11/27/2023 1:35 PM CDT Kourtney GUERRERO MICROBIOLOGY [facility] [address] [place] [address], * (ABNORMAL) UA W/ SEDIMENT EXAM REFLEXED PER CRITERIA (11/27/2023 11:15 AM CDT) COLOR Yellow Yellow Color 11/27/2023 11:23 AM CDT [facility] CLARITY Clear Clear Clarity 11/27/2023 11:23 AM CDT [facility] SPECIFIC GRAVITY,URINE 1.015 1.010, 1.015, 1.020, 1.025 11/27/2023 11:23 AM CDT [facility] PH,URINE 5.0(A) 6.0, 7.0, 8.0, 5.5, 6.5, 7.5, 8.5 11/27/2023 11:23 AM CDT [facility] UROBILINOGEN, QUALITATIVE Normal Normal EU/dl 11/27/2023 11:23 AM CDT [facility] PROTEIN, URINE Negative Negative mg/dL 11/27/2023 11:23 AM CDT [facility] GLUCOSE, URINE Negative Negative mg/dL 11/27/2023 11:23 AM CDT [facility] KETONES,URINE Negative Negative mg/dL 11/27/2023 11:23 AM CDT [facility] BILIRUBIN,URI NE Negative Negative 11/27/2023 11:23 AM CDT [facility] OCCULT BLOOD,URINE Negative Negative 11/27/2023 11:23 AM CDT [facility] NITRITE Negative Negative 11/27/2023 11:23 AM CDT [facility] LEUKOCYTE ESTERASE Negative Negative 11/27/2023 11:23 AM CDT [facility] Urine URINE SPECIMEN / Unknown Non-Blood / Unknown 11/27/2023 11:15 AM CDT 11/27/2023 11:20 AM CDT Kourtney Lisa Conway PA URINE [facility] [address] [place] [address], * LAB TRACKING EVENT (11/04/2023 3:50 PM CDT) Other (Other) Client Collect / Unknown 11/04/2023 3:50 PM CDT 11/05/2023 4:31 PM CDT Corine Guillaume MD LAB BILL ONLY [facility] [address] [place] [address], * STUD BEEF CATTLE FARMER THIN PREP PAP SCREEN IMAGED (11/04/2023 3:50 PM CDT) Case Report Gynecologic Cytology Report ? Case: [id number] ? Authorizing Provider: ??Corine Guillaume MD ?Collected: ? 11/04/2023 1550 ? Ordering Location: ? [facility] ?Received: ?11/06/2023 0926 ? First Screen: ?Kathy Stephens ? Specimen: ?STUD BEEF CATTLE FARMER ThinPrep Vial Screening, Cervical ? 11/12/2023 1:05 PM CDT [facility] INTERPRETATION/ RESULT NEGATIVE FOR INTRAEPITHELIAL LESION OR MALIGNANCY (NIL) (none) 11/12/2023 1:05 PM CDT [facility] IMEN ADEQUACY Satisfactory for evaluation Endocervical component present 11/12/2023 1:05 PM CDT [facility] HPV REQUEST HPV and PAP 11/12/2023 1:05 PM CDT [facility] Last Pap Date 11/12/2023 1:05 PM CDT [facility] Comment:09/2017 Last Pap Result NIL 1:05 PM CDT [facility] Abnormal Pap or [place] Bx in last 5 years No 11/12/2023 1:05 PM CDT [facility] Menstrual Status Postmenopausal 11/12/2023 1:05 PM CDT [facility] [place] Bx Done Today No 11/12/2023 1:05 PM CDT [facility] Additional Information 11/12/2023 1:05 PM CDT [facility] Comment: Interpreted at [facility] - [address], [place] [address] Automated Review Successful 11/12/2023 1:05 PM T [facility] Comment:Specimen processed s uccessfully by automated belt loop maker device, ThinPrep Imaging System, [employer] ANCILLARY TESTING STUD BEEF CATTLE FARMER HPV Ordered, Please see separate report 11/12/2023 1:05 PM CDT [facility] Note The pap test is [...] and malignant lesions. 11/12/2023 1:05 PM CDT [facility] Other (Cervical) 11/04/2023 3:50 PM CDT 11/06/2023 9:26 AM CDT Corine Guillaume MD PATHOLOGY/CYTOLOGY Performing Organization Address [facility] [employer] de Phone Number [facility] [address] [place] [address], * HPV HIGH RISK (11/04/2023 3:50 PM CDT) TYPE 16 Negative Negative 11/07/2023 4:00 PM CDT [facility] TYPE 18 Negative Negative 11/07/2023 4:00 PM CDT [facility] OTHER HIGH RISK TYPES Negative Negative 11/07/2023 4:00 PM CDT [facility] Other (Cervical) 11/04/2023 3:50 PM CDT 11/06/2023 9:26 AM CDT Narrative [facility] - 11/07/2023 4:00 PM CDT HPV types 16, 18, 31, 33, 35, 39, 45, 51, 52, 56, 58, 59, 66 and 68 DNA were undetectable or below the pre-set threshold. Methodology: Jacek Karen 4800 HPV Test Corine Guillaume MD MICROBIOLOGY Performing Organization Address [facility] [employer] de Phone Number [facility] [address] [place] [address], * XR FEMUR 2 VIEWS RIGHT (10/15/2023 [...] unspecified provider. Other Clinical Staff OTHER * XR MAMMO EVA BILAT SCREEN [...] care provider. XR MAMMO EVA BILAT SCREEN [[id number]] CLINICAL HISTORY: ??This is an asymptomatic 63 y.o. patient. INDICATION FOR EXAM: Mammogram Screening. TECHNIQUE: CC & MLO views were obtained. ??This study was evaluated with the assistance of Computer-Aided Detection. Breast Tomosynthesis was used in interpretation. COMPARISON FILM: Yes 05/13/22 [facility] 05/10/21 [facility] FINDINGS: ??The breasts have scattered areas of fibroglandular density. There are no dominant masses, suspicious micro calcifications or areas of architectural distortion. Nivia Bruno MD MAMMO * (ABNORMAL) LIPID PANEL W REFLEX MEASURED LDL (07/08/2023 12:07 PM PROGRAM MANAGER SLP) CHOLESTEROL,TOTAL 285(H) 100 - 199 mg/dL 07/08/2023 9:55 PM [facility] Comment: Cholesterol, Total Reference Ranges Desirable <200 mg/dL Borderline 200-239 mg/dL High >=240 mg/dL TRIGLYCERIDES 97 <150 mg/dL 07/08/2023 9:55 PM [facility] HDL CHOLESTEROL 76 >40 mg/dL 9:55 PM [facility] NON-HDL CHOLESTEROL 209(H) <145 mg/dl 07/08/2023 9:55 PM [facility] CHOL/HDL RATIO 3.75 <4.50 07/08/2023 9:55 PM [facility] LDL CHOLESTEROL 190(H) <=130 mg/dL 07/08/2023 9:55 PM [facility] VLDL CHOLESTEROL 19 <=30 mg/dL 07/08/2023 9:55 PM [facility] PROVIDER ORDERED STATUS RANDOM 07/08/2023 9:55 PM [facility] Blood BLOOD SPECIMEN / Unknown Venipuncture / Unknown 07/08/2023 12:07 PM PROGRAM MANAGER SLP 07/08/2023 12:07 PM PROGRAM MANAGER SLP Nivia Bruno MD [facility] [address] [place] [address], [place] * SCAN-COLONOSCOPY (01/28/2022 1:00 PM CDT) Narrative Procedure Note Edison Ceron MD - 01/28/2022 12:02 PM CDT [facility] [address], [address], [place] [address] Patient Name: Juliette Brown Gender: Female Exam Date: 01/28/2022 Visit Number: [id number] Age: 61 Years 9 Months Date of : 1960 Attending MD: Edison Ceron MD Medical Record#: [id number] ----- Procedure: Colonoscopy Indications: Recent history of [...] Race: White Ethnicity: Not or Preferred Language: Tajik cc: Nivia Bruno MD [facility] [phone] Edison Ceron MD OTHER * ANTI HIV 1/2 (06/01/2018 4:02 PM PROGRAM MANAGER SLP) HIV-1/HIV-2 ANTIBODY Non-Reacti ve Non-Reacti ve 06/01/2018 8:08 PM PROGRAM MANAGER SLP [facility] Comment:HIV-1 p24 and HIV-1/ HIV-2 Ab not detected. Blood BLOOD SPECIMEN / Unknown Venipuncture / Unknown 06/01/2018 4:02 PM PROGRAM MANAGER SLP 06/01/2018 4:02 PM PROGRAM MANAGER SLP Nivia Bruno MD [facility] [address] [place] [address], * ANTI HCV (09/30/2017 5:38 PM CDT) HEPATITIS C ANTIBODY Non-React mathieu Non-React mathieu 10/01/2017 2:41 PM CDT [facility] Comment:Antibodies to HCV no t detected; does not exclude the possibility of exposure to HCV. Blood BLOOD SPECIMEN / Unknown Venipuncture / Unknown 09/30/2017 5:38 PM CDT 09/30/2017 5:38 PM CDT Kourtney GUERRERO [facility] 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
--- OUTSIDE RECORDS SUMMARY | 2024-01-09 00:08 | XMS_ITS | Referral Summary ---
Author Organization [facility] Address [address] [place] [address] Care Team Providers Care Stuffed Casing Tier Name Role Phone Nivia Bruno MD Primary Care Provider [phone] Allergies Active Allergy Reactions Criticality Noted Date [...] Take 1 tablet by mouth 07/22/2014 Active [place]-3 1000 MG CAPS 04/02/2016 Acti ve Saline [...] BASIC METABOLIC PANEL Routine 06/23/2017 6:00 AM ADJUNCT FACULTY INSTRUCTOR from Last 3 Months or Most Recently Relevant to Health Maintenance Results * Basic metabolic panel (06/23/2017 6:00 AM ADJUNCT FACULTY INSTRUCTOR) Sodium 139 136 - 145 mmol/L 06/23/2017 10:13 AM [facility] Potassium 4.2 3.5 - 5.0 mmol/L 06/23/2017 10:13 AM [facility] Chloride 103 98 - 107 mmol/L 06/23/2017 10:13 AM [facility] Carbon Dioxide (CO2) 29 22 - 31 mmol/L 06/23/2017 10:13 AM [facility] Anion Gap 7 5 - 18 mmol/L 06/23/2017 10:13 AM [facility] Glucose 105 70 - 125 mg/dL 06/23/2017 10:13 AM [facility] Calcium 9.4 8.5 - 10.5 mg/dL 06/23/2017 10:13 AM [facility] Urea Nitrogen 16 8 - 22 mg/dL 06/23/2017 10:13 AM [facility] Creatinine 0.69 0.60 - 1.10 mg/dL 06/23/2017 10:13 AM [facility] GFR Estimate If Black >60 >60 mL/min/1.7 3m2 06/23/2017 10:13 AM ADJUNCT FACULTY INSTRUCTOR [facility] GFR Estimate >60 >60 mL/min/1.7 2 06/23/2017 10:13 AM [facility] Blood specimen (specimen) STRUCTURE OF LEFT UPPER LIMB / Unknown Venipuncture / Unknown 06/23/2017 6:00 AM ADJUNCT FACULTY INSTRUCTOR 06/23/2017 9:50 AM ADJUNCT FACULTY INSTRUCTOR Narrative [facility] - 06/23/2017 10:13 AM ADJUNCT FACULTY INSTRUCTOR Fasting Glucose reference range is 70-99 mg/dL per [place] Diabetes Association (ADA) guidelines. Rosmery Simpson MD LAB - BLOOD ORDER [facility] [address] [address], [facility] [address] [address] from Last 3 Months or Most Recently Relevant to Health Maintenance Advance Directives For more information, please contact: [phone] * Full Code (Latest Code Status on File) Date Activated Date Inactivated Comments 04/16/2016 1:58 AM 04/22/2016 3:55 PM Care Teams Stuffed Casing Tier Relationship Specialty Start Date End Date Nivia Bruno MD PCP - General 03/22/21
--- OUTSIDE RECORDS SUMMARY | 2024-01-09 00:09 | XMS_ITS | Encounter Summary ---
Author Organization [facility] Address [address] [address] Care Team Providers Care Quantitative Research Analyst Name Role Phone Needs Pcp, Assignment Primary Care Provider [phone] Encounter Details Date Type Department Care Team (Late st Contact Info) Description 07/12/2019 Lab Requisition [facility] [address] [facility] [place] [address] Lul Hunter MD [address] [place], [place] [id number] Encounter for surgical aftercare following surgery on [...] BASIC METABOLIC PANEL Routine 07/13/2019 7:00 AM PRODUCTION ASSOCIATE Encounter for surgical aftercare following surgery on the nervous system COMPLETE BLOOD COUNT-NO DIFF Routine 07/13/2019 7:00 AM PRODUCTION ASSOCIATE Encounter for surgical aftercare following surgery on the nervous system documented in this encounter Results * (ABNORMAL) Basic Metabolic Panel (07/13/2019 7:00 AM PRODUCTION ASSOCIATE) Sodium 136 136 - 145 mmol/L 07/13/2019 12:35 PM PRODUCTION ASSOCIATE [facility] Potassium 4.7 3.5 - 5.1 mmol/L 07/13/2019 12:35 PM PRODUCTION ASSOCIATE [facility] Chloride 100 98 - 109 mmol/L 07/13/2019 12:35 PM PRODUCTION ASSOCIATE [facility] CO2 27 20 - 29 mmol/L 07/13/2019 12:35 PM PRODUCTION ASSOCIATE [facility] Anion Gap 9 7 - 16 mmol/L 07/13/2019 12:35 PM PRODUCTION ASSOCIATE [facility] Calcium 9.2 8.4 - 10.4 mg/dL 07/13/2019 12:35 PM PRODUCTION ASSOCIATE [facility] BUN 18 7 - 26 mg/dL 07/13/2019 12:35 PM PRODUCTION ASSOCIATE [facility] Creatinine 0.76 0.55 - 1.02 mg/dL 07/13/2019 12:35 PM PRODUCTION ASSOCIATE [facility] GFR, Estimated >60 >60 mL/min/1.7 3m2 07/13/2019 12:35 PM PRODUCTION ASSOCIATE [facility] GFR, Est If >60 >60 mL/min/1.7 3m2 07/13/2019 12:35 PM PRODUCTION ASSOCIATE [facility] Glucose 105(H) 70 - 100 mg/dL 07/13/2019 12:35 PM PRODUCTION ASSOCIATE [facility] Comment:The given reference range is for the fasting state. Non-fasting reference range for glucose is 70 - 180 mg/dL. Hours Fasting Unknown 07/13/2019 12:35 PM PRODUCTION ASSOCIATE [facility] Blood Venipuncture / Unknown 07/13/2019 7:00 AM PRODUCTION ASSOCIATE 07/13/2019 10:40 AM PRODUCTION ASSOCIATE Lul Hunter MD LAB_1 [facility] [address] * (ABNORMAL) Complete Blood Count-No Diff (07/13/2019 7:00 AM PRODUCTION ASSOCIATE) WBC 4.7 3.5 - 10.5 x10(9)/L 07/13/2019 11:17 AM PRODUCTION ASSOCIATE [facility] RBC 3.19(L) 3.90 - 5.03 x10(12)/L 07/13/2019 11:17 AM PRODUCTION ASSOCIATE [facility] Hemoglobin 10.1(L) 12.0 - 15.5 g/dL 07/13/2019 11:17 AM PRODUCTION ASSOCIATE [facility] HCT 31.2(L) 34.9 - 44.5 % 07/13/2019 11:17 AM PRODUCTION ASSOCIATE [facility] MCV 97.8 80.0 - 100.0 fL 07/13/2019 11:17 AM PRODUCTION ASSOCIATE [facility] MCH 31.7 27.6 - 33.3 pg 07/13/2019 11:17 AM PRODUCTION ASSOCIATE [facility] MCHC 32.4 31.5 - 35.2 g/dL 07/13/2019 11:17 AM PRODUCTION ASSOCIATE [facility] RDW 11.7(L) 11.9 - 15.5 % 07/13/2019 11:17 AM PRODUCTION ASSOCIATE [facility] Platelets 221 150 - 450 x10(9)/L 07/13/2019 11:17 AM PRODUCTION ASSOCIATE [facility] Automated NRBC 0 <=0 /100 WBC 07/13/2019 11:17 AM PRODUCTION ASSOCIATE [facility] Blood Venipuncture / Unknown 07/13/2019 7:00 AM PRODUCTION ASSOCIATE 07/13/2019 10:44 AM PRODUCTION ASSOCIATE Lul Hunter MD LAB_1 Performing Organization Address City/State/[facility] Co de Phone Number [facility] [address] [place] [address], [facility] documented in this encounter Visit Diagnoses Diagnosis Encounter for surgical aftercare following surgery on the nervous system documented in this encounter Care Teams Quantitative Research Analyst Relationship Specialty Start Date End Date [place] [address] PCP - General 02/28/21 documented as of this encounter
--- OUTSIDE RECORDS SUMMARY | 2024-01-09 00:09 | XMS_ITS | Encounter Summary ---
Author Organization [facility] Address [address] [place] [address] Care Team Providers Care Paragliding Instructor Name Role Phone Needs Pcp, Assignment Primary Care Provider [phone] Reason for Visit * Reason Comments CONSULT Encounter Details Date Type Department Care Team (Late st Contact Info) Description 10/01/2023 12:45 PM CDT Office Visit [facility] [address] [place] [address] Leif Stewart PA-C [address] [place], [place] [address] [address] Age-related osteoporosis without current pathological fracture (HRC) [...] you contact your insurance to verify your rzq-gh-ipzbzu expense for all medications, as it may [...] daily through food and supplements. Vitamin D: 2912-4733 IU daily Exercise Aerobic Exercise: Work your [...] pack on the infusion site or taking hito-dvu-ebunzwx pain relievers such as acetaminophen as detailed [...] in 2020 -- Prolia x 2 years ([id number]) managed through [facility] Current Treatment: -- Prolia Treatment Duration: 2021-current [...] daily. Indications: clot prevention bacitracin-polymyxin b (POLYSPORIN) 500-82353 UNIT/GM ointment Apply topically two times a [...] at bedtime. Indications: Trouble Sleeping Multiple Minerals-Vitamins ([id number]) TABS Take 1 Tablet by mouth daily. [...] (OCEAN) 0.65 % nasal solution Place [address] [place] into both nostrils every 2 hours as [...] osteoporosis documented in this encounter Care Teams Paragliding Instructor Relationship Specialty Start Date End Date Needs Pcp, [place] [address] PCP - General 02/28/21 documented as of this encounter
--- OUTSIDE RECORDS SUMMARY | 2024-01-09 00:09 | XMS_ITS | Clinical Summary ---
Author Organization [facility] Address [address] [place] [address] Care Team Providers Care Health Professional Name Role Phone Needs Pcp, Assignment Primary Care Provider [phone] Source Comments You are receiving this document as you are listed as the primary care provider,follow-up provider, or the patient has been referred to you for consultation.This is in compliance with the Medicare and[facility] EHR Incentive Program,which states Providers who transition their patient to another setting of careor provider of care or refers their patient to another provider of care shouldprovide summary care record for each transition of care or referral. [id number] Allergies Active Allergy Reactions Criticality Noted Date [...] (OCEAN) 0.65 % nasal solution Place [address] [place] into both nostrils every 2 hours as needed for Congestion. Active bacitracin-polymyx in b (POLYSPORIN) 500-26661 UNIT/GM ointmentIndication s:dry nose Apply topically two [...] (06/14/2019): Added automatically from request for surgery [id number] Sarcoidosis, lung 06/01/2019 Recurrent major depressive disorder [...] (145 lb 12.8 oz) 07/16/2019 9:00 PM KITCHEN STEWARD Height 172.7 cm (5' 8) 07/15/2019 9:30 PM KITCHEN STEWARD Body Mass Index 22.17 07/15/2019 9:30 PM KITCHEN STEWARD Plan of Treatment Health Maintenance Due Date [...] this topic Medical Devices Implanted Type Area Mva Operator Device Identifier Shelf Expiration Date Model / Serial / Lot Chip Jesusita Faria 30cc - [id number] Implanted:Qty: 1 on 07/07/2019 by Tobias Martin MD at [facility] DEVICE Right: LEG [employer] - [employer] 06/30/2023 [id number] / [id number] / [id number] Chip Cankelvin Faria 30cc - [id number] Implanted:Qty: 1 on 07/07/2019 by Tobias Martin MD at [facility] DEVICE Right: LEG [employer] - [employer] 06/30/2023 [id number] / [id number] / [id number] Procedures Procedure Name Priority Date/Time [...] 11:24 AM CDT Carin Rainey MD [facility] [address] * HCAB - Hepatitis C Virus Paula with Reflex In-House (08/25/2018 11:24 AM CDT) Hepatitis C Antibody Negative (Non Reactive) Negative (Non Reactive) 08/25/2018 4:34 PM CDT [facility] Comment:Antibodies to HCV no t detected. Does not exclude the possiblity of exposure to HCV. Blood Venipuncture / Unknown 08/25/2018 11:24 AM CDT 08/25/2018 11:24 AM CDT Carin Rainey MD [facility] [address] [employer] [place], [place] [address] * MM Mammogram Screening Bilat W CAD [...] OF IMPRESSION Dictating LUL BRADY MD Lizzy MORENO CORNELIO from Last 3 Months or Most Recently Relevant to Health Maintenance Advance Directives Documents on File Type Date Recorded Patient Graphic Editor Expl anation HEALTHCARE DIRECTIVE 07/10/2019 ADVANCE D DIRECTIVE 07/10/2019 * Full Code (Latest Code Status on File) Date Activated Date Inactivated Comments 07/15/2019 9:18 PM 07/20/2019 4:20 PM * Full Code Date Activated Date Inactivated Comments 07/07/2019 4:33 PM 07/10/2019 6:22 PM Care Teams Health Professional Relationship Specialty Start Date End Date Needs Pcp, [place] [address] PCP - General 02/28/21
--- OUTSIDE RECORDS SUMMARY | 2024-01-09 00:09 | XMS_ITS | Encounter Summary ---
Author Organization [facility] Address [address] [place] [address] Care Team Providers Care Workforce Planning Analyst Name Role Phone Heladio Martins MD Primary Care Provider Kelsi Glez MD Unavailable [phone] Nivia Bruno MD Primary Care Provider [phone] Encounter Details Date Type Department Care Team ([facility] Contact Info) Description 03/07/2021 [facility] Behavioral Health Intake [address] [place] [id number] Generic, Behavioral Intake, Social History Tobacco Use [...] 03/06/2021 7:37 PM CDT To: Cheyanne Santana [facility], Quentin Hagan, # Subject: Schedule for PHP on Friday Scheduling Request Patient Name: Juliette Brown Location of programming: [facility] Start Date: 03/12 Group: [id number] 9am to 3pm Attending Provider (): Trent Number of visits to be scheduled: 50 Duration of Appointment in minutes: 360 Visit Type: Zoom - [phone] Additional notes: Patient is currently in PHP at [facility]. She has Medicare and BCBS. Please check ifinsurance will cover another PHP program. Patient was given [employer] phone number. * Telephone Encounter - Jen Serrano - 03/07/2021 7:50 AM CDT ----- Message from KETTY Rollins sent at 03/06/2021 7:37 PM CDT ----- Regarding: Schedule for PHP on Friday Scheduling Request Patient Name: Juliette Brown Location of programming: [facility] Start Date: 03/12 Group: [id number] 9am to 3pm Attending Provider (): Cristianoe Number of visits to be scheduled: 50 Duration of Appointment in minutes: 360 Visit Type: Zoom - 2657 Additional notes: Patient is currently in PHP at [facility]. She has Medicare and BCBS. Please check ifinsurance will cover another PHP program. Patient was given [employer] phone number. documented in this encounter Plan of Treatment Not on file documented as of this encounter Visit Diagnoses Not on filedocumented in this encounter Additional Health Concerns Assessment Noted Time PHQ-9 Depression Total Score: 21 021 12:28 PM CDT documented as of this encounter Care Teams Workforce Planning Analyst Relationship Specialty Start Date End Date Heladio Martins MD PCP - General Internal Medicine 03/05/16 03/21/21 Nivia Bruno MD [address] [facility] [place] [address] PCP - General 03/22/21 Kelsi Handy MD [address] [place] [address] Assigned OBGYN Provider 04/23/20 3 documented as of this encounter
--- OUTSIDE RECORDS SUMMARY | 2024-01-09 00:09 | XMS_ITS | Encounter Summary ---
Author Organization [facility] Address [address] [place] [address] Care Team Providers Care Transport Medic Name Role Phone Needs Pcp, Assignment Primary Care Provider [phone] Encounter Details Date Type Department Care Team (Late st Contact Info) Description 07/16/2019 Lab Requisition [facility] [address] [place] [facility]. [place], [place] [address] Lul Hunter MD [address] [place], [place] [id number] Encounter for surgical aftercare following surgery on [...] organs documented in this encounter Care Teams Transport Medic Relationship Specialty Start Date End Date Needs Pcp, [place]tha [place] [facility], [place] [address] PCP - General 02/28/21 documented as of this encounter
--- OUTSIDE RECORDS SUMMARY | 2024-01-09 00:09 | XMS_ITS | Encounter Summary ---
Author Organization [facility] Address [address] [place] [address] Care Team Providers Care Bus System Operator Name Role Phone Needs Pcp, Assignment Primary Care Provider [phone] Encounter Details Date Type Department Care Team (Latest Contact Info) Description 10/08/2023 Orders Only HIM DEPARTMENT Provider, [place] [address] Social History Tobacco Use Types Packs/Day Years [...] on filedocumented in this encounter Care Teams Bus System Operator Relationship Specialty Start Date End Date Needs Pcp, [place] [address] PCP - General 02/28/21 documented as of this encounter
--- OUTSIDE RECORDS SUMMARY | 2024-01-09 00:09 | XMS_ITS | Encounter Summary ---
Author Organization [facility] Address [address] [place] [address] Care Team Providers Care Fiber Worker Name Role Phone Needs Pcp, Assignment Primary Care Provider [phone] Reason for Visit * Reason Comments Follow-up, NOS Entered automaticall y based on patient selection in [facility] [employer]. Encounter Details Date Type Department Care Team (Late st Contact Info) Description 10/08/2023 2:15 PM CDT E-Visit [facility] [address] [place] [address] Leif Stewart PA-C [address] [place] [address] [place] [address] Chief Comp: Follow-up, NOS Social History Tobacco [...] can I have the infusion at the [facility]? Their telephone # is . Thank you for your time. Kind Regards, Juliette documented in this encounter Plan of Treatment Not on file documented as of this encounter Visit Diagnoses Not on filedocumented in this encounter Care Teams Fiber Worker Relationship Specialty Start Date End Date Needs Pcp, [place] [address] PCP - General 02/28/21 documented as of this encounter
--- OUTSIDE RECORDS SUMMARY | 2024-01-09 00:09 | XMS_ITS | Encounter Summary ---
Author Organization [email or web address] Address [address], [place] [address] Care Team Providers Care Patient Representative Name Role Phone Needs Pcp, Assignment Primary Care Provider [phone] Reason for Visit * Auth/Cert Specialty Diagnoses / Procedures Referred By Contac t Referred To Contact Diagnoses Diarrhea of presumed infectious origin Fibromyalgia Diarrhea of presumed infectious origin Fibromyalgia Diarrhea of presumed infectious origin Fibromyalgia Referral ID Status Reason Start Date Expiration Date Visits Re quested Visits Authorized [id number] 1 1 Encounter Details Date Type Department Care Team (Latest Contact Info) Description 07/15/2019 Lab Requisition [facility] [address] [facility] [address] Lul Hunter MD [address] [place], [place] [id number] Enterocolitis due to Clostridium difficile, not specified [...] C.DIFFICILE TOXIN,MOLECULAR DETECTION Routine 07/15/2019 10:00 PM SQL DATABASE ADMINISTRATOR Enterocolitis due to Clostridium difficile, not specified as recurrent documented in this encounter Results * (ABNORMAL) C.Difficile Toxin,Molecular Detection, (07/15/2019 10:00 PM SQL DATABASE ADMINISTRATOR) C.difficile by PCR Detected( A) Not Detected 07/15/2019 11:30 PM SQL DATABASE ADMINISTRATOR [facility] Stool Non-blood Collection / Unknown 07/15/2019 10:00 PM SQL DATABASE ADMINISTRATOR 07/15/2019 10:24 PM SQL DATABASE ADMINISTRATOR Narrative [facility] - 07/15/2019 11:30 PM SQL DATABASE ADMINISTRATOR Methodology: Qualitative real-time PCR assay to detect the Clostridium difficile toxin B gene. Lul Hunter MD LAB_1 [facility] [address] [place], [place] [address] [place] [address] documented in this encounter Visit Diagnoses Diagnosis Enterocolitis due to Clostridium difficile, not specified as recurrent documented in this encounter Care Teams Patient Representative Relationship Specialty Start Date End Date Needs Pcp, [place] [address] PCP - General 02/28/21 documented as of this encounter
--- OUTSIDE RECORDS SUMMARY | 2024-01-09 00:09 | XMS_ITS | Encounter Summary ---
Author Organization [facility] Address [address] [place] [address] Care Team Providers Care Steno Typist Name Role Phone Heladio Martins MD Primary Care Provider Kelsi Glez MD Unavailable [phone] Nivia Bruno MD Primary Care Provider [phone] Reason for Visit * Reason Onset Date Comments MH/CD Inpatient 04/15/2016 Encounter Details Date Type Department Care Team ([facility] Contact Info) Description 04/15/2016 Telephone [facility] Behavioral Health Intake [address] [place] [address] Generic, Behavioral Intake, MD MH/CD Inpatient Social [...] as it is after 10pm); unit notified CH ADJUSTER documented in this encounter Plan of Treatment Not on file documented as of this encounter Visit Diagnoses Not on filedocumented in this encounter Care Teams Steno Typist Relationship Specialty Start Date End Date Heladio Martins MD PCP - General Internal Medicine 03/05/16 03/21/21 Nivia Bruno MD [address] [place] [address] PCP - General 03/22/21 Kelsi Handy MD [address] [place] [place] [address] Assigned OBGYN Provider 04/23/20 3 documented as of this encounter
--- OUTSIDE RECORDS SUMMARY | 2024-01-09 00:09 | XMS_ITS | Encounter Summary ---
Author Organization [facility] Address [facility] [place] [address] Care Team Providers Care Uniform Room Attendant Name Role Phone Heladio Martins MD Primary Care Provider Kelsi Glez MD Unavailable [phone] Nivia Bruno MD Primary Care Provider [phone] Encounter Details Date Type Department Care Team (Latest Contact Info) Description 03/06/2021 [facility] Treatment Plan [facility] [address] [place] [phone] Dav Tierney MD [address] [place] [address] Megan Ruiz, SHANNON Major depressive [...] documented as of this encounter Care Teams Uniform Room Attendant Relationship Specialty Start Date End Date Heladio Martins MD PCP - General Internal Medicine 03/05/16 03/21/21 Nivia Bruno MD [address] [facility] [place] [address] PCP - General 03/22/21 Kelsi Handy MD [address] [place] [address] Assigned OBGYN Provider 04/23/20 3 documented as of this encounter
== END 2024-01-04 14:35 | disposition home or self-care (01) ==
LOC: NFLDREF 01-09 00:05
PROVIDERS: PCP Family Medicine; Referring Provider Family Medicine; Visit Provider Nurse Practitioner Family
DX: N93.9 Abnormal uterine and vaginal bleeding, unspecified (principal); Z20.822 Contact with and (suspected) exposure to COVID-19
CPT/HCPCS: 87086

== ENCOUNTER 2024-01-06 11:31 | Outpatient (CLI) | payer MEDICARE, BC, SELFPAY ==
--- NOTE | 2024-01-06 11:15 | CRLHL7_ITS ---
For Patients: As a result of the Century Cures Act, medical imaging exams and procedure reports are released immediately into your electronic medical record. You may view this report before your referring provider. If you have questions, please contact your health care provider. INDICATION: Post menopausal bleeding. TECHNIQUE: Transvaginal pelvic ultrasound. Grayscale and color Doppler images. FINDINGS: Uterus is anteverted and measures 5.6 x 2.1 x 3.6 cm. Endometrium measures approximately 4 mm in thickness. The margins of the endometrium are irregular and there is a tiny amount of fluid within the fundus. Right ovary appears normal. Left ovary is not visible. No adnexal mass or free fluid. IMPRESSION: Endometrial stripe thickness within normal limits however endometrial margin is somewhat irregular. Consider further evaluation with hysteroscopy and/or biopsy. Dictated by Tavo Cobos MD @ 01/07/2024 11:22:30 AM (Electronically Signed)
== END 2024-01-06 11:32 | disposition home or self-care (01) ==
LOC: US 11:31
PROVIDERS: PCP Family Medicine; Visit Provider Obstetrics & Gynecology
DX: N95.0 Postmenopausal bleeding (principal)
CPT/HCPCS: 76830

== ENCOUNTER 2024-02-04 13:47 | Emergency (ER) | payer MEDICARE, BC, SELFPAY ==
[2024-02-04] VITALS (7 sets, daily range): BP systolic 120–122; BP diastolic 61–69; PULSE 61–80; RESP 16–18; TEMP 36.4–36.8; O2SAT 97–100; BMI 23.6
--- NOTE | 2024-02-04 16:25 | ED_ITS ---
HPI - General Adult General Date Seen: 02/04/24 Chief complaint: Unspecified Complaint, Adult Stated complaint: muscle cramping in legs Time Seen by Provider: 02/04/24 15:53 Source: patient Mode of arrival: ambulatory Limitations: no limitations History of Present Illness HPI narrative: Patient is a 63-year-old woman who says she has body aches for the past 2 days. She says she [place] the zoo on [place] and ?over did it. She reports a history of rheumatoid arthritis, not currently under any treatment. She uses Tylenol, she also has her a narcotic medication at home that she takes as needed, Dilaudid according to her med list. She denies other systemic symptoms, has not had fevers or specific joint pains. No rashes, vomiting, diarrhea, a little bit of congestion, no cough or difficulty breathing. No chest pain or palpitations. She says that she has been taking Tylenol and Advil, she has also taken some of her Dilaudid, but continues to have diffuse body aches. She has not done a COVID test at home. She says that she was talking to the person who does her hair and they said that she should go get her lactic level checked. She is concerned about possible dehydration. Denies tobacco alcohol use, denies other substances. Other medical history and medications reviewed. Related Data Home Medications ?Medication ?Instructions ?Recorded ?Confirmed clobetasol 0.05 % topical ointment 1 applic topical .qod 11/21/21 02/04/24 liothyronine 5 mcg tablet 5 mcg PO .B.i.d. 11/21/21 02/04/24 lorazepam 0.5 mg tablet 0.5 mg PO Q12H PRN 12/08/21 02/04/24 melatonin 3 mg capsule 9 mg PO HS 12/08/21 02/04/24 trazodone 50 mg tablet 100 mg PO QHS PRN 01/17/23 02/04/24 buspirone 15 mg tablet 15 mg PO BID 03/25/23 02/04/24 cyclosporine 0.05 % eye drops in a drp ophthalmic (eye) 03/25/23 01/09/24 dropperette lidocaine HCl 2 % mucosal solution PO 03/25/23 01/09/24 (Lidocaine Viscous) tretinoin 0.025 % topical cream 1 applic topical QPM 03/25/23 02/04/24 valacyclovir 1 gram tablet 1,000 mg PO 3XD 03/25/23 02/04/24 varenicline 0.03 mg/spray nasal intranasal 03/25/23 01/09/24 spray (Tyrvaya) cyclobenzaprine 5 mg tablet 5 mg PO QPM PRN 09/17/23 02/04/24 vilazodone 20 mg tablet 20 mg PO DAILY 11/10/23 02/04/24 rosuvastatin 5 mg tablet 5 mg PO DAILY 02/04/24 02/04/24 Previous Rx's ?Medication ?Instructions ?Recorded Lactobacillus acidophilus 0.5 mg 1 tab PO TIDWM 90 days #90 tabs 12/10/21 (100 million cell) tablet hydromorphone 2 mg tablet 2 mg PO Q4H PRN 5 days #30 tabs 12/10/21 albuterol sulfate 90 mcg/actuation 2 puff inhalation Q4-6H PRN 03/05/23 aerosol inhaler shortness of breath or wheezing #8.5 grams triamcinolone acetonide 0.025 % 1 applic topical BID #15 grams 03/25/23 topical cream estradiol 10 mcg vaginal tablet 10 mcg vaginal 2XW #24 tabs 11/04/23 (Yuvafem) estradiol 1 mg tablet 0.5 mg (1/2 x 1 mg) PO QDAY #45 11/05/23 tabs diphenoxylate-atropine 2.5 1 tab PO DAILY #10 tabs 11/11/23 mg-0.025 mg tablet (Lomotil) ondansetron HCl 4 mg tablet 4 mg PO Q6H #10 tabs 11/11/23 Allergies Allergy/AdvReac Type Severity Reaction Status Date / Time auranofin Allergy Verified 01/09/24 11:25 cat dander Allergy Verified 01/09/24 11:25 Gadolinium-Containing Allergy Verified 01/09/24 11:25 Contrast Medi gluten Allergy Verified 01/09/24 11:25 gold keratinate Allergy Verified 01/09/24 11:25 gold sodium thiomalate Allergy Verified 01/09/24 11:25 lactose Allergy Verified 01/09/24 11:25 Opioids - Morphine Analogues Allergy Verified 01/09/24 11:25 goldshots Allergy Severe Anaphylaxis Uncoded 01/09/24 11:25 Review of Systems Status of ROS: Reports: 10 or more systems reviewed and unremarkable except as noted in History and below [facility] Medical History Herpes zoster ?B02.9 - Zoster without complications (ICD-10) Diverticulitis ?K57.92 - Diverticulitis of intestine, part unspecified, without perforation or abscess without bleeding (ICD-10) Closed T12 fracture ?S22.089A - Unspecified fracture of T11-T12 vertebra, initial encounter for closed fracture (ICD-10) History of Clostridioides difficile colitis ?Z86.19 - Personal history of other infectious and parasitic diseases (ICD- 10) History of hypothyroidism ?Z86.39 - Personal history of other endocrine, nutritional and metabolic disease (ICD-10) History of diverticulitis of colon (05/09/11) ?Z87.19 - Personal history of other diseases of the digestive system (ICD-10) History of Clostridioides difficile infection ?Z86.19 - Personal history of other infectious and parasitic diseases (ICD- 10) Abscess of sigmoid colon due to diverticulitis ?K57.20 - Diverticulitis of large intestine with perforation and abscess without bleeding (ICD-10) Osteoporosis ?M81.0 - Age-related osteoporosis without current pathological fracture (ICD-10) Sigmoid diverticulitis ?K57.32 - Diverticulitis of large intestine without perforation or abscess without bleeding (ICD-10) History of femur fracture ?Z87.81 - Personal history of (healed) traumatic fracture (ICD-10) Insomnia ?G47.00 - Insomnia, unspecified (ICD-10) Anxiety ?F41.9 - Anxiety disorder, unspecified (ICD-10) Sarcoidosis ?D86.9 - Sarcoidosis, unspecified (ICD-10) Hypothyroidism ?E03.9 - Hypothyroidism, unspecified (ICD-10) Sensorineural hearing loss (SNHL) of both ears ?H90.3 - Sensorineural hearing loss, bilateral (ICD-10) Depression ?F32.A - Depression, unspecified (ICD-10) Chronic fatigue syndrome ?R53.82 - Chronic fatigue, unspecified (ICD-10) 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 - Unspecified juvenile rheumatoid arthritis of unspecified site (ICD- 10) Migraines ?G43.909 - Migraine, unspecified, not intractable, without status migrainosus (ICD-10) Diverticulitis of intestine with abscess ?K57.80 - Diverticulitis of intestine, part unspecified, with perforation and abscess without bleeding (ICD-10) Surgical History History of total knee replacement ?Z96.659 - Presence of unspecified artificial knee joint (ICD-10) S/P hammer toe correction ?Z98.890 - Other specified postprocedural states (ICD-10) ?Z87.39 - Personal history of other diseases of the musculoskeletal system and connective tissue (ICD-10) History of repair of rotator cuff ?Z98.890 - Other specified postprocedural states (ICD-10) History of tonsillectomy ?Z90.89 - Acquired absence of other organs (ICD-10) History of total hip arthroplasty ?Z96.649 - Presence of unspecified artificial hip joint (ICD-10) History of bilateral knee arthroplasty ?Z96.653 - Presence of artificial knee joint, bilateral (ICD-10) Family History Father High blood pressure Hyperlipidemia Mother High blood pressure Hyperlipidemia Sister Seizure disorder Social History Narrative: She lives alone in [place]. 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 She does not smoke. She drinks alcohol about once a month. She uses no recreational drugs. She does have a history of chemical dependency. Healthcare power of tax associate attorney is her sister Denise. Code status is full. Are you following a special diet: Yes (no gluten, lactose intolerent) Highest level of school completed/degree received: Master's degree Smoking Status: Never smoker Do you use any of these nicotine containing products: None Second hand tobacco smoke exposure: No How often do you have a drink containing alcohol: never How often do you have six or more drinks on one occasion: Never AUDIT-C Alcohol total score: 0 Non-prescribed substance use: denies use Caffeine: Yes (coffee 3x weekly) Are you now , , , , never or living with a partner: Social isolation score (0-1 are the most socially isolated patients): 0 Are you currently sexually active: No service: No Exam Narrative: Exam Narrative: Vital signs as noted above. In general, an alert, well-appearing patient. Head: Normocephalic, atraumatic. Eyes: Pupils are equal reactive. Extraocular movements are full. Conjunctivae are normal. ENT: Mucous membranes are moist. Throat is normal. Neck: Supple without lymphadenopathy. Heart: Regular rate and rhythm. No murmur or rub. Lungs: Clear bilaterally. No increased work of breathing, crackles or wheezes. Abdomen: Soft and nontender. No organomegaly. Extremities: Well perfused. No edema. No calf tenderness. Pulses intact. Joints are normal without erythema or effusion. Neurologic: Patient is alert and oriented to person and place. Speech is fluent. Face is symmetric. Moves all extremities equally. Affect: Normal. Skin: Warm and dry. Well perfused. No rashes. Const: Vital Signs, click to edit/add: Vital Signs - 24 hr 02/04/24 14:19 Temperature 97.6 F Pulse Rate [Right Pulse Oximeter] 80 Respiratory Rate 18 Blood Pressure [Ri ght Upper Arm] 120/66 Pulse Oximetry 97 Oxygen Delivery Me thod Room Air Course Course ED Course: Patient presents with subjective body aches without any objective findings on exam. She does have a history of rheumatoid arthritis, by her report she sees a document processor at [place] annually, seen in the past month or 2 and no specific treatment regimen was recommended. I do not see any evidence of active joint inflammation today. Will check a COVID, check a CBC and inflammatory markers. She is very worried about her lactate level and dehydration, will give her some fluids, Toradol, and check a lactate. Does not appear significantly dehydrated on clinical assessment. Labs are reassuring. CBC, CRP, sed rate, lactate all normal. Metabolic panel is notable for a sodium of 134. Remainder normal. COVID, influenza and RSV are negative. She received 2 L normal saline here. Discussed that symptoms may be viral, no evidence of other acute process at this time based on exam and labs. Recommend supportive care, ibuprofen and/or Tylenol, hydration. Primary care follow-up if not improving over the next 7-10 days. Return any time for acute worsening or new symptoms. Vital Signs Vital signs: Initial Vital Signs Temperature 97.6 F 02/04/24 14:19 Temperature Source Temporal Artery Scan 02/04/24 14:19 Pulse Rate 80 02/04/24 14:19 Respiratory Rate 18 02/04/24 14:19 Blood Pressure 120/66 02/04/24 14:19 Blood Pressure Mean 84 02/04/24 14:19 Blood Pressure Position Sitting 02/04/24 14:19 Pulse Oximetry 97 02/04/24 14:19 Oxygen Delivery Method Room Air 02/04/24 14:19 Vital Signs Temperature 97.6 F 02/04/24 14:19 Pulse Rate 80 02/04/24 14:19 Respiratory Rate 18 02/04/24 14:19 Blood Pressure 120/66 02/04/24 14:19 Pulse Oximetry 97 02/04/24 14:19 Oxygen Delivery Method Room Air 02/04/24 14:19 Temperature 97.6 F 02/04/24 14:19 Pulse Rate 80 02/04/24 14:19 Respiratory Rate 18 02/04/24 14:19 Blood Pressure 120/66 02/04/24 14:19 Pulse Oximetry 97 02/04/24 14:19 Oxygen Delivery Method Room Air 02/04/24 14:19 Medications Administered Medications: Discontinued Medications Generic Name Dose Route Start Last Admin Trade Name Freq PRN Reason Stop Dose Admin Sodium Chloride 1,000 mls @ 1,000 mls/hr 02/04/24 16:15 02/04/24 16:50 0.9 % Sodium Chloride 1000 Ml IV 02/04/24 17:14 1,000 mls/hr .Q1H SHANNA Administration Ketorolac Tromethamine 15 mg 02/04/24 16:06 02/04/24 16:50 Ketorolac 15 Mg/Ml Inj IVP 02/04/24 16:07 15 mg ONCE ONE Administration Medical Decision Making Lab Data Labs: Lab Results 02/04/24 02/04/24 Range/Units 16:25 16:55 WBC 4.89 (4.50-11.00) K/uL RBC 4.18 (4.00-5.20) m/uL Hgb 12.9 (12.0-16.0) gm/dL Hct 38.9 (33.0-51.0) % MCV 93 (80-100) fL MCH 31 (26-34) pg MCHC 33 (32-36) gm/dL RDW Coeff of Chuck 11.8 (11.5-15.5) % Plt Count 198 (140-440) K/uL Neut % (Auto) 64.6 (42.0-72.0) % Lymph % (Auto) 26.6 (20-44) % Wilkes % (Auto) 7.0 (0.0-11.0) % Eos % (Auto) 1.4 (0.0-7.0) % Baso % (Auto) 0.2 (0.0-3.0) % Neut # (Auto) 3.16 (1.7-7.0) K/uL Lymph # (Auto) 1.30 (0.90-2.90) K/uL Wilkes # (Auto) 0.30 (0.00-0.90) K/UL Eos # (Auto) 0.07 (0.00-0.50) K/uL Baso # (Auto) 0.01 (0.00-0.30) K/uL Abs Immat Gran (auto) 0.01 (0.00-0.30) K/uL Imm/Tot Granulo (auto) 0.2 % ESR 8 (2-20) mm/hr Sodium 134 L (135-149) mmol/L Potassium 4.3 (3.6-5.1) mmol/L Chloride 102 (96-114) mmol/L Carbon Dioxide 27 (20-32) mmol/L Anion Gap 5 L (7-15) mEq/L BUN 20 (7-30) mg/dL Creatinine 0.8 (0.5-1.5) mg/dL Estimated Creat Clear 59.40 Estimated GFR 82 ml/min Glucose 107 (60-115) mg/dL Lactate 0.8 (0.5-1.9) mmol/L Calcium 9.0 (8.4-10.6) mg/dL C-Reactive Protein < 0.5 L (0.5-1.0) mg/dL SARS-CoV-2 (PCR) Negative SARS-CoV-2 (Negative) Influenza Type A (PCR) Negative PCR FLU A (Negative) Influenza Type B (PCR) Negative PCR FLU B (Negative) RSV (PCR) Negative PCR RSV (Negative) Discharge Plan Discharge Clinical Impression: Myalgia Patient Disposition: Home, Self-Care Condition: Stable Instructions: Musculoskeletal Pain (ED) Additional Instructions: Your lab work today is all normal including inflammatory markers and lactate as well as blood counts. Your viral swab does not show evidence of COVID, influenza, or Rsv, but it is possible that your muscle aches are related to a different viral syndrome. For now, would recommend that you continue your current medications, see your primary doctor if not improving over the next 7-10 days. Return any time for significant worsening. Prescriptions: No Action trazodone 50 mg tablet 100 mg PO QHS PRN Tyrvaya 0.03 mg/spray spray, metered, non-aerosol intranasal Patient Comments: [NO ORIGINAL SIG] cyclosporine 0.05 % dropperette ophthalmic (eye) lidocaine HCl [Lidocaine Viscous] 2 % solution PO tretinoin 0.025 % cream 1 applic topical QPM buspirone 15 mg tablet 15 mg PO BID valacyclovir 1 gram tablet 1,000 mg PO 3XD triamcinolone acetonide 0.025 % cream 1 applic topical BID Qty: 15 0RF Rx Instructions: Apply small amount to affected area cyclobenzaprine 5 mg tablet 5 mg PO QPM PRN vilazodone 20 mg tablet 20 mg PO DAILY albuterol sulfate 90 mcg/actuation HFA aerosol inhaler 2 puff inhalation Q4-6H PRN (Reason: shortness of breath or wheezing) Qty: 8.5 0RF estradiol [Yuvafem] 10 mcg tablet 10 mcg vaginal 2XW Qty: 24 3RF diphenoxylate-atropine [Lomotil] 2.5-0.025 mg tablet 1 tab PO DAILY Qty: 10 0RF ondansetron HCl 4 mg tablet 4 mg PO Q6H Qty: 10 0RF rosuvastatin 5 mg tablet 5 mg PO DAILY liothyronine 5 mcg tablet 5 mcg PO .B.i.d. clobetasol 0.05 % ointment 1 applic TOPICAL .qod lorazepam 0.5 mg tablet 0.5 mg PO Q12H PRN melatonin 3 mg capsule 9 mg PO HS hydromorphone 2 mg Tablet 2 mg PO Q4H PRN5 Days Qty: 30 0RF Lactobacillus acidophilus 0.5 mg (100 million cell) Tablet 1 tab PO TIDWM 90 Days Qty: 90 0RF estradiol 1 mg tablet 0.5 mg PO QDAY Qty: 45 3RF Rx Instructions: Take 1/2 tab (0.5 mg) daily. Follow Up/Referrals: Nivia Bruno MD [Primary Care Provider] - Stand Alone Forms: [employer] Info Instructions
[2024-02-04 16:29] LABS: Lactate Sepsis w/Reflex* 0.8 mmol/L (0.5-1.9)
[2024-02-04 16:38] LABS: Basophils Absolute Auto 0.01 K/uL (0.00-0.30); Basophils Percent Auto 0.2 % (0.0-3.0); Eosinophils Absolute Auto 0.07 K/uL (0.00-0.50); Eosinophils Percent Auto 1.4 % (0.0-7.0); Hematocrit 38.9 % (33.0-51.0); Hemoglobin* 12.9 gm/dL (12.0-16.0); Immature Granulocytes Abs Auto 0.01 K/uL (0.00-0.30); Immature Granulocytes Pct Auto 0.2 %; Lymphocytes Percent Auto 26.6 % (20-44); Mean Corpuscular HGB Conc 33 gm/dL (32-36); Mean Corpuscular Hemoglobin 31 pg (26-34); Mean Corpuscular Volume 93 fL (80-100); Neutrophils Absolute Auto 3.16 K/uL (1.7-7.0); Neutrophils Percent Auto 64.6 % (42.0-72.0); Platelet Count* 198 K/uL (140-440); RDW Coefficient of Variation % 11.8 % (11.5-15.5); Red Blood Count 4.18 m/uL (4.00-5.20); White Blood Count* 4.89 K/uL (4.50-11.00)
[2024-02-04 16:39] LABS: Slide Review Reflex No
[2024-02-04 16:49] LABS: Chloride* 102 mmol/L (96-114); Potassium* 4.3 mmol/L (3.6-5.1); Sodium* 134 mmol/L (135-149)
[2024-02-04] MEDS: 0.9 % SODIUM CHLORIDE 1000 ml 1,000 ML IV (16:50)
[2024-02-04] MEDS: KETOROLAC 15 MG/ML inj IVP (16:50)
[2024-02-04 16:51] LABS: Creatinine* 0.8 mg/dL (0.5-1.5); Estimated Glomerular Filt Rate 82 ml/min
[2024-02-04 16:52] LABS: Anion Gap 5 mEq/L (7-15); Blood Urea Nitrogen* 20 mg/dL (7-30); Carbon Dioxide* 27 mmol/L (20-32); Glucose* 107 mg/dL (60-115)
[2024-02-04 17:05] LABS: C Reactive Protein* < 0.5 mg/dL (0.5-1.0)
--- OUTSIDE RECORDS SUMMARY | 2024-02-04 17:21 | XMS_ITS | Continuity of Care Document ---
Author Organization [facility] Address [address] [address] [place] [address] Phone Care Team Providers Care Buggy Driver Name Role Phone Tavia Horne Unavailable Unavailable [...] Diagnoses Date Provider Providers Copied on Encounter [facility] J[address]ER [address] [address], [place], [id number], [place] tel:[phone] [facility] No Information Edstrchantal Squires. [address] [facility], [facility] [address], [place], [place], [id number], [place]. tel:[phone] [facility] CESAR [address] [address], [place], [id number], [place] tel:[phone] [facility] Diverticulosis of colon (without mention of hemorrhage)Dvr tclos of lg int w/o perforation or abscess w/o bleeding No Information Referring Provider: Referral Self, USE FOR SELF REFERRALS. [facility] JENN[address]ER [address] [address], [place], [id number], [place] tel:[phone] [facility] No Information 2 No Information Telephone E&M III 21-30 Min SUSU [facility], [address] [address], [place], [place], [id number], [place] tel:[phone] [facility] GI Symptoms or Concerns (chief complaint) Diverticulitis 2 Edstrom CESAR Squires. [address] [facility] [address], [place], [id number], [place]. tel:[phone] Referring Provider: Referral Self, USE FOR SELF REFERRALS. [facility], [address] [address], [place], [place], [id number], [place] tel:[phone] [facility] No Information 2 Link MD Null. [address] [facility] [address], [place], [id number], [place]. tel:[phone] [facility], [address] [address], [place], [address], [place] tel:[phone] [facility] Diverticulosis of colon (without mention of hemorrhage)Per pinky history of colonic polypsDvtrcli of lg int w/o perforation or abscess w/o bleedingDvrtcl os of lg int w/o perforation or abscess w/o bleedingPerson al history of colonic polyps Aug-0 9 No Information Referring Provider: Nivia Bruno MD, [address] [place] [address], [address]. tel:[phone] [facility], [address] [address], [place], [place], [id number], [place] tel:[phone] [facility] History of colon polypsDivertic ular disease of large intestineDvtrc li of lg int w/o perforation or abscess w/o bleedingDvrtcl os of lg int w/o perforation or abscess w/o bleedingPerson al history of colonic polyps - 5 No Information Referring Provider: Heladio Martins MD, [address] [place] [address], [address]. tel:[phone] [facility], [address] [address], [place], [id number], [place] tel:[phone] [facility] LUQ Pain 4 Tatiana Ray. [address] [place] [address], [id number], [place]. tel:[phone] [facility], [address] [address], [place], [id number], [place] tel:[phone] [facility] Hiatal HerniaPolyp-in chalo/rect/stom- unc BehLUQ PainGastric Polyp-benignGa stric Polyp-benignLU Q PainHiatal Hernia 4 Nelson Ferris. [address] [place] [address], [id number], [place]. tel:[phone] Referring Provider: Heladio Martins MD, [address] [place] [address], [address]. tel:[phone] [facility], [address] [address], [facility] [place], [id number], [place] tel:[phone] [facility] LUQ Pain 4 Tatiana Ray. [address] [place] [address], [id number], [place]. tel:[phone] Referring Provider: Heladio Martins MD, [address] [place] [address], [address]. tel:[phone] Offic/outpt E&m Estab Mod-hi 2 [facility], [address] [address], [facility], [address], [place] tel:[phone] [facility] LUQ PainDiarrhea 4 Tatiana Ray. [address] [place] [address], [id number], [place]. tel:[phone] Referring Provider: Heladio Martins MD, [address] [place] [address], [address]. tel:[phone] [facility], [address] [address], [facility], [id number], [place] tel:[phone] [facility] Diverticulosis Of ColonHx Of Digest Disease NecDiverticulo sis Of ColonHx Of Digest Disease Nec 3 No Information Referring Provider: Heladio Martins MD, [address] [place] [address], [place], [address]. tel:[phone] [facility], [address] [address], [place], [id number], [place] tel:[phone] [facility] Diverticulosis Of ColonDiverticu litis Of ColonDiverticu litis Of Colon 2 No Information Referring Provider: Heladio Martins MD, [address] [place] [address], [place], [address]. tel:[phone] [facility] CESAR, [address] [address], [place], [id number], [place] tel:[phone] [facility] Colon Cancer ScreeningPerso nal History Colon PolypsDivertic ulosis Of Colon 8 No Information Referring Provider: Daniel Griffin, [address] [place] [address], [place], [address]. tel:[phone] [facility], [address] [address], [place], [id number], [place] tel:[phone] [facility] Personal history colon polyps 6 No Information Offic Cons New/estab [facility], [address] [address], [place], [id number], [place] tel:[phone] [facility] Diverticulosis Of ColonPolyp-int es/rect/stom-u nc beh 6 [...] Covered republican ID Authoriza tion(s) Medicare NGS [id number] Blue Cross Medicare Supplement [id number] Social History Type Description Quantity Date Captured [...] years ago, she was hospitalized at [facility] at which time there was evidence [...]
--- OUTSIDE RECORDS SUMMARY | 2024-02-04 17:21 | XMS_ITS | Continuity of Care Document ---
Author Organization [facility] Address [address] [place] [address] Phone Care Team Providers Care Global Lead Name Role Phone Sanchez Lay MD Unavailable Unavailable Advance Directives Directive Yes / No Effective Date File Name No Information Encounters Encounter Description Practice Location Reason(s) For Visit Diagnoses Date Provider Providers Copied on Encounter [facility], [address], [place], [address], [place] tel:[phone] [facility], No Information Rosanne Bradford. [facility] [address], [place], [address], [place]. tel:[phone] Family History Family Member Type Diagnosis Age [...]
--- OUTSIDE RECORDS SUMMARY | 2024-02-04 17:21 | XMS_ITS | Continuity of Care Document ---
Author Organization [facility] Address [address] [address] [place] [address] Care Team Providers Care Home Aid Name Role Phone [place], [place] Unavailable Unav ailable Procedures Procedure Date Colono Pt Doc Pt W/o Advance Directives Directive Yes / No Effective Date File Name No Information Encounters Encounter Description Practice Location Reason(s) For Visit Diagnoses Date Provider Providers Copied on Encounter [facility], [address] [address], [place], [place], [id number], [facility] [place] [facility] No Information [facility]. [address] [address], [place], [place], [id number], . tel:[phone] Family History Family Member Type Diagnosis Age [...]
--- OUTSIDE RECORDS SUMMARY | 2024-02-04 17:22 | XMS_ITS | Encounter Summary ---
Author Organization [employer] Address [address] [place] [address] Care Team Providers Care Furnace Puncher Name Role Phone Heladio Martins MD Primary Care Provider Kelsi Glez MD Unavailable [phone] Nivia Bruno MD Primary Care Provider [phone] Encounter Details Date Type Department Care Team ([facility] Contact Info) Description 03/07/2021 [facility] Behavioral Health Intake [address] [place] [id number] Generic, Behavioral Intake, Social History Tobacco Use [...] 03/06/2021 7:37 PM CDT To: Cheyanne Santana [facility], Quentin Hagan, # Subject: Schedule for PHP on Friday Scheduling Request Patient Name: Juliette Brown Location of programming: [facility] Start Date: 03/12 Group: [id number] 9am to 3pm Attending Provider (): Trent Number of visits to be scheduled: 50 Duration of Appointment in minutes: 360 Visit Type: Zoom - [phone] Additional notes: Patient is currently in PHP at [facility]. She has Medicare and BCBS. Please check ifinsurance will cover another PHP program. Patient was given orangutrans phone number. * Telephone Encounter - Jen Serrano - 03/07/2021 7:50 AM CDT ----- Message from KETTY Rollins sent at 03/06/2021 7:37 PM CDT ----- Regarding: Schedule for PHP on Friday Scheduling Request Patient Name: Juliette Brown Location of programming: [facility] Start Date: 03/12 Group: [id number] 9am to 3pm Attending Provider (): Cristianoe Number of visits to be scheduled: 50 Duration of Appointment in minutes: 360 Visit Type: Zoom - [phone] Additional notes: Patient is currently in PHP at [facility]. She has Medicare and BCBS. Please check ifinsurance will cover another PHP program. Patient was given orangutrans phone number. documented in this encounter Plan of Treatment Not on file documented as of this encounter Visit Diagnoses Not on filedocumented in this encounter Additional Health Concerns Assessment Noted Time PHQ-9 Depression Total Score: 21 021 12:28 PM CDT documented as of this encounter Care Teams Furnace Puncher Relationship Specialty Start Date End Date Heladio Martins MD PCP - General Internal Medicine 03/05/16 03/21/21 Nivia Bruno MD [address] [facility] [place] [address] PCP - General 03/22/21 Kelsi Handy MD [address] [place] [address] Assigned OBGYN Provider 04/23/20 3 documented as of this encounter
--- OUTSIDE RECORDS SUMMARY | 2024-02-04 17:22 | XMS_ITS | Encounter Summary ---
Author Organization [employer] Address [address], [place] [address] Care Team Providers Care Money Laundering Investigator Name Role Phone Needs Pcp, Assignment Primary Care Provider [phone] Encounter Details Date Type Department Care Team (Late st Contact Info) Description 07/12/2019 [facility] [address] [place] [address] Lul Hunter MD [address] [place], [place] [id number] Encounter for surgical aftercare following surgery on [...] BASIC METABOLIC PANEL Routine 07/13/2019 7:00 AM CLINICAL LAB ASSISTANT Encounter for surgical aftercare following surgery on the nervous system COMPLETE BLOOD COUNT-NO DIFF Routine 07/13/2019 7:00 AM CLINICAL LAB ASSISTANT Encounter for surgical aftercare following surgery on the nervous system documented in this encounter Results * (ABNORMAL) Basic Metabolic Panel (07/13/2019 7:00 AM CLINICAL LAB ASSISTANT) Sodium 136 136 - 145 mmol/L 07/13/2019 12:35 PM CLINICAL LAB ASSISTANT [facility] Potassium 4.7 3.5 - 5.1 mmol/L 07/13/2019 12:35 PM CLINICAL LAB ASSISTANT [facility] Chloride 100 98 - 109 mmol/L 07/13/2019 12:35 PM CLINICAL LAB ASSISTANT [facility] CO2 27 20 - 29 mmol/L 07/13/2019 12:35 PM CLINICAL LAB ASSISTANT [facility] Anion Gap 9 7 - 16 mmol/L 07/13/2019 12:35 PM CLINICAL LAB ASSISTANT [facility] Calcium 9.2 8.4 - 10.4 mg/dL 07/13/2019 12:35 PM CLINICAL LAB ASSISTANT [facility] BUN 18 7 - 26 mg/dL 07/13/2019 12:35 PM CLINICAL LAB ASSISTANT [facility] Creatinine 0.76 0.55 - 1.02 mg/dL 07/13/2019 12:35 PM CLINICAL LAB ASSISTANT [facility] GFR, Estimated >60 >60 mL/min/1.7 3m2 07/13/2019 12:35 PM CLINICAL LAB ASSISTANT [facility] GFR, Est If >60 >60 mL/min/1.7 3m2 07/13/2019 12:35 PM CLINICAL LAB ASSISTANT [facility] Glucose 105(H) 70 - 100 mg/dL 07/13/2019 12:35 PM CLINICAL LAB ASSISTANT [facility] Comment:The given reference range is for the fasting state. Non-fasting reference range for glucose is 70 - 180 mg/dL. Hours Fasting Unknown 07/13/2019 12:35 PM CLINICAL LAB ASSISTANT [facility] Blood Venipuncture / Unknown 07/13/2019 7:00 AM CLINICAL LAB ASSISTANT 07/13/2019 10:40 AM CLINICAL LAB ASSISTANT Lul Hunter MD LAB_1 [facility] [address] * (ABNORMAL) Complete Blood Count-No Diff (07/13/2019 7:00 AM CLINICAL LAB ASSISTANT) WBC 4.7 3.5 - 10.5 x10(9)/L 07/13/2019 11:17 AM CLINICAL LAB ASSISTANT [facility] RBC 3.19(L) 3.90 - 5.03 x10(12)/L 07/13/2019 11:17 AM CLINICAL LAB ASSISTANT [facility] Hemoglobin 10.1(L) 12.0 - 15.5 g/dL 07/13/2019 11:17 AM CLINICAL LAB ASSISTANT [facility] HCT 31.2(L) 34.9 - 44.5 % 07/13/2019 11:17 AM CLINICAL LAB ASSISTANT [facility] MCV 97.8 80.0 - 100.0 fL 07/13/2019 11:17 AM CLINICAL LAB ASSISTANT [facility] MCH 31.7 27.6 - 33.3 pg 07/13/2019 11:17 AM CLINICAL LAB ASSISTANT [facility] MCHC 32.4 31.5 - 35.2 g/dL 07/13/2019 11:17 AM CLINICAL LAB ASSISTANT [facility] RDW 11.7(L) 11.9 - 15.5 % 07/13/2019 11:17 AM CLINICAL LAB ASSISTANT [facility] Platelets 221 150 - 450 x10(9)/L 07/13/2019 11:17 AM CLINICAL LAB ASSISTANT [facility] Automated NRBC 0 <=0 /100 WBC 07/13/2019 11:17 AM CLINICAL LAB ASSISTANT [facility] Blood Venipuncture / Unknown 07/13/2019 7:00 AM CLINICAL LAB ASSISTANT 07/13/2019 10:44 AM CLINICAL LAB ASSISTANT Lul Hunter MD LAB_1 Performing Organization Address City/State/[facility] Co de Phone Number [facility] [address] [place] [address], [facility] documented in this encounter Visit Diagnoses Diagnosis Encounter for surgical aftercare following surgery on the nervous system documented in this encounter Care Teams Money Laundering Investigator Relationship Specialty Start Date [place] [address] PCP - General 02/28/21 documented as of this encounter
--- OUTSIDE RECORDS SUMMARY | 2024-02-04 17:22 | XMS_ITS | Clinical Summary ---
Author Organization [facility] Address [address] [place] [address] Care Team Providers Care Army Senior Officer Name Role Phone Needs Pcp, Assignment Primary Care Provider [phone] Source Comments You are receiving this document as you are listed as the primary care provider,follow-up provider, or the patient has been referred to you for consultation.This is in compliance with the Medicare and[facility] EHR Incentive Program,which states Providers who transition their patient to another setting of careor provider of care or refers their patient to another provider of care shouldprovide summary care record for each transition of care or referral. [employer] Allergies Active Allergy Reactions Criticality Noted Date [...] (OCEAN) 0.65 % nasal solution Place 1 Newell into both nostrils every 2 hours as needed for Congestion. 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 [employer] Height 172.7 cm (5' 8) 07/15/2019 9:30 PM TOY ASSEMBLER [employer] Body Mass Index 22.17 07/15/2019 9:30 PM TOY ASSEMBLER WOOD Plan of Treatment Health Maintenance Due Date Last Done Comments Cervical Cancer Screening Due 1960 Colon Cancer Screening Plan Due 1960 Medicare Annual Wellness Visit 1960 Cholesterol 2004 COVID-19 Vaccine ( season) 2024 06/11/2023, 08/21/2021, 02/21/2021, Additional history exists Influenza (#1) 2024 03/16/2022, 03/12, 02/24/2020, Additional history exists Mammogram 07/31/2024 08/01/2023, 06/2022, 05/10/2021, Additional history exists DTaP/Tdap/Td (4 - Tdap) 05/31/2026 05/31/19 17, 09/30/2005, 09/30/2005 RSV (1 - 1-dose 75+ series) 2034 HepA Aged Out 04/27/2008 No longer eligi [...] this topic Medical Devices Implanted Type Area Showplace Manager Device Identifier Shelf Expiration Date Model / Serial / Lot Chip Canc Crouton 30cc - [id number] Implanted:Qty: 1 on 07/07/2019 by Tobias Martin MD at [facility] DEVICE Right: LEG [employer] - [employer] 06/30/2023 [id number] / [id number] / [id number] Chip Canc Crouton 30cc - [id number] Implanted:Qty: 1 on 07/07/2019 by Tobias Martin MD at [facility] DEVICE Right: LEG [employer] - [employer] 06/30/2023 [id number] / [id number] / [id number] Procedures Procedure Name Priority Date/Time [...] Ag/Ab 4th Generation (08/25/2018 11:24 AM CDT) Pathologist [facility] HIV 1/2 Antigen/Antib jorje (4th generation) Negative (Non Reactive) Negative (Non Reactive) 08/25/2018 4:34 PM CDT [facility] Comment:HIV-1 p24 Antigen an d HIV-1/HIV-2 Antibody not detected Blood Venipuncture / Unknown 08/25/2018 11:24 AM CDT 08/25/2018 11:24 AM CDT Carin Rainey MD LAB_1 [facility] [address] * HCAB - Hepatitis C Virus Paula with Reflex In-House (08/25/2018 11:24 AM CDT) Hepatitis C Antibody Negative (Non Reactive) Negative (Non Reactive) 08/25/2018 4:34 PM CDT [facility] Comment:Antibodies to HCV no t detected. Does not exclude the possiblity of exposure to HCV. Blood Venipuncture / Unknown 08/25/2018 11:24 AM CDT 08/25/2018 11:24 AM CDT Carin Rainey MD LAB_1 [facility] [address] * MM Mammogram Screening Bilat W CAD [...] Documents on File Type Date Recorded Patient Bioinformaticist Expl anation HEALTHCARE DIRECTIVE 07/10/2019 ADVANCE D DIRECTIVE 07/10/2019 * Full Code (Latest Code Status on File) Date Activated Date Inactivated Comments 07/15/2019 9:18 PM 07/20/2019 4:20 PM * Full Code Date Activated Date Inactivated Comments 07/07/2019 4:33 PM 07/10/2019 6:22 PM Care Teams Army Senior Officer Relationship Specialty Start Date [place] [address] PCP - General 02/28/21
--- OUTSIDE RECORDS SUMMARY | 2024-02-04 17:22 | XMS_ITS | Continuity of Care Document ---
Author Organization [facility] Address [address] [address] [place] [address] Care Team Providers Care River Guide Name Role Phone [place], [place] Unavailable Unav ailable Procedures Procedure Date Colono Pt Doc Pt W/o Advance Directives Directive Yes / No Effective Date File Name No Information Encounters Encounter Description Practice Location Reason(s) For Visit Diagnoses Date Provider Providers Copied on Encounter [facility], [address] [address], [place], [place], [id number], [facility] No Information [facility]. [address] [address], [place], [place], [id number], . tel:[phone] Family History Family Member Type Diagnosis Age [...]
--- OUTSIDE RECORDS SUMMARY | 2024-02-04 17:22 | XMS_ITS | Encounter Summary ---
Author Organization [facility] Address [address], [place] [address] Care Team Providers Care Smearer Name Role Phone Needs Pcp, Assignment Primary Care Provider [phone] Encounter Details Date Type Department Care Team (Late st Contact Info) Description 07/16/2019 Lab [facility] [address] [facility]. [place], [place] [address] Lul Hunter MD [address] [place], [place] [phone] Encounter for surgical aftercare following surgery on [...] organs documented in this encounter Care Teams Smearer Relationship Specialty Start Date End Date Needs Pcp, Bertha [facility] [place] [address] PCP - General 02/28/21 documented as of this encounter
--- OUTSIDE RECORDS SUMMARY | 2024-02-04 17:22 | XMS_ITS | Clinical Summary ---
Author Organization [facility] Address [place], [place] [address] Care Team Providers Care Patient Access Coordinator Name Role Phone Nivia Bruno MD Primary Care Provider Judie Carreno PharmD Unavailable [phone] Allergies Active Allergy Reactions Criticality Noted Date [...] X 7 Days 21 Tablet 3 Active acetaminophen SR (Tylenol Arthritis Pain) 650 [...] injury due to substance overdose Inhale 1 [place] into affected nostril(s) each time if needed for Patient Diff To Arouse or Resp Rate < 8 / min. Additional doses may be given every 2 to 3 minutes until emergency medical assistance arrives. 2 Each 4 Active estradioL (VAGIFEM) 10 mcg tab vaginal tabletIndications: Vaginal candidiasis Insert 1 Tablet (10 mcg) into the vagina every Friday and . 4 Active cyclobenzaprine (FLEXERIL) 5 mg tablet Take 5 mg by mouth at bedtime if needed for Muscle Spasm. 4 Active clobetasol 0.05% (TEMOVATE 0.05% OINTMENT) 0.05 % ointmentIndication s:Lichen sclerosus APPLY TOPICALLY TO AFFECTED AREA(S)TWO TIMES DAILY NEEDED TO LICHEN SCLEROSUS IN VAGINAL AREA. 60 g 4 Active busPIRone (BUSPAR) 15 mg tabletIndications: KATY (generalized anxiety disorder) Take 1 Tablet (15 mg) by mouth two times daily. 180 Tablet 1 4 Active liothyronine (CYTOMEL) 5 mcg tabletIndications: Hypothyroidism, unspecified type Take 1 tablet (5 mcg) by mouth two times daily. 180 Tablet 1 4 Active progesterone micronized (PROMETRIUM) 100 mg capsuleIndications :Postmenopausal,Ho rmone replacement therapy Take 1 Capsule (100 mg) by mouth at bedtime. 90 Capsule 4 Active triamcinolone 0.1% (KENALOG IN ORABASE) 0.1 % pasteIndications:S ore of lip Apply small amount to the upper lip once a day before bed for the next few weeks. 5 g 4 Active traZODone (DESYREL) 50 mg tabletIndications: Primary insomnia TAKE 1 TO 2 TABLETS (50-100 MG) BY MOUTH AT BEDTIME NEEDED FOR SLEEP 180 Tablet 4 Active medication order composerIndication s:Fibromyalgia Robb Labs [...] Apple Cider Vinegar - PRN NN Ultimate [place]-3 - daily Body Bio Balance Oil (omega-3/omega-6 blend) - 2 capsules daily Body Bio PC - daily BodyBio Tudca - daily 4 Active HYDROmorphone (DILAUDID) 2 mg tabletIndications: Blunt trauma of right thigh, subsequent encounter Take 0.5 Tablets (1 mg) by mouth every 6 hours if needed for Pain. 12 Tablet 4 Active lidocaine 5 % topical patchIndications:L umbar radiculopathy Apply on dry, clean, hairless skin. Apply 1 patch to painful area of skin for up to to 12 hours within 24 hour period. 30 Patch 1 4 Active vilazodone 20 mg tabletIndications: Severe episode of recurrent major depressive disorder, without psychotic features (HC),KATY (generalized anxiety disorder) TAKE 1 TABLET (20 MG) BY MOUTH ONCE DAILY. 90 Tablet 4 Active hydrocortisone 2.5 % creamIndications:H emorrhoids, external Apply topically to affected area(s) two times daily. 30 g 4 Active ketoconazole 2 % creamIndications:V aginal irritation Apply topically to affected area(s) two times daily. 60 g 4 Active nystatin 100,000 unit/gram creamIndications:Y east vaginitis Apply topically to affected area(s) two times daily. 30 g 4 Active doxycycline 100 mg capsule Take 100 mg by mouth two times daily. 4 Active estradioL (VAGIFEM) 10 mcg tab vaginal tablet As directed. 4 Active estradioL (ESTRACE) 1 mg tablet 4 Active SUMAtriptan (IMITREX) 25 mg tabletIndications: Hx of migraines Take 1 Tablet (25 mg) by mouth 2 times daily if needed for Migraine (Repeat in 2 hours prn, maximum of 2 doses in 1 day.). 9 Tablet 2 4 Active rosuvastatin (CRESTOR) 5 mg tabletIndications: Calcified atheromatous plaque Take 1 Tablet (5 mg) by mouth at bedtime. 90 Tablet 3 4 Active aspirin (ECOTRIN) 81 mg enteric coated tabletIndications: Calcified atheromatous plaque Take 1 Tablet (81 mg) by mouth once daily with a meal. 100 Tablet 3 4 Active hydrocortisone 2.5% creamIndications:H emorrhoids, external Apply topically to affected area(s) two times daily. 30 g 4 01/15/20 24 Discontinue d(Reorder (E-cancel not sent)) fluconazole (DIFLUCAN) 150 mg tabletIndications: Yeast vaginitis Take 1 Tablet (150 mg) by mouth one time for 1 dose. 1 Tablet 4 01/16/20 24 SUMAtriptan (IMITREX) 25 mg tablet Take 25 mg by mouth 2 times daily if needed for Migraine. 4 01/22/20 24 Discontinue d(Reorder (E-cancel not sent)) fluconazole (Diflucan) 150 mg tabletIndications: Yeast vaginitis Take 1 Tablet (150 mg) by mouth one time for 1 dose. 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 difficile colitis 07/21/2019 Femur fracture, right 07/21/2019 Sarcoidosis, lung 06/01/2019 Closed supracondylar fracture of right femur Pulmonary nodules 05/23/2017 Overview (02/24/2020): On CT at hospital . Recommend follow [...] 10/03/2023 Controlled substance agreement signed 10/11/2016 04/22/2022 Overview (10/11/2016): Signed 04/23/16 Dr. 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 3 Dysthymic disorder 11/26/2007 6 Unspecified drug dependence, in remission 01/25/2022 Encounters Date Type Department Care Team Description 01/30/2024 1:00 PM CDT Procedure Only [facility] [address] [place] [address] Tyler Parson L Ac Acupuncture 01/30/2024 Travel 01/27/2024 1:00 PM CDT Phone Office Visit [facility] [place] [phone] Keiko Downs, [facility] Individual Therapy; Phone Visit 01/27/2024 Travel 01/25/2024 Orders Only [facility] [address] [place] [address] Jyoti Sellers PA <No scans attached> 01/23/2024 1:00 PM CDT Procedure Only [facility] [address] [place] [address] Tyler Parson L Ac Acupuncture 01/22/2024 12:45 PM CDT Orders [place] [address] [place] [address] Lab, [place] Outside Order (Ordered by Amrita Jewell) 01/22/2024 10:25 AM CDT Office Visit [facility] [place] [address] Nivia Bruno MD Follow Up 01/22/2024 Orders Only [facility] [address] [place] [address] Nivia Bruno MD <No scans attached> 01/22/2024 Travel 01/21/2024 1:30 PM CDT Pharmacist Medication Management [facility] [address] [place] [address] Judie Carreno PharmD Pharmacist Medication Management ([facility] follow-up - [facility] patient - pain/depression management) 01/20/2024 1:45 PM CDT Phone Office Visit [facility] [address] [place] [phone] Keiko Downs, [facility] Individual Therapy; Phone Visit 01/20/2024 Telephone [facility] [address] [place] [address] Judie Carreno PharmD Questions (doxycycline) 01/20/2024 Travel 01/16/2024 1:00 PM CDT Procedure Only [facility] [address] [place] [address] Tyler Parson L Ac Acupuncture 01/15/2024 11:05 AM CDT Office Visit [facility] [address] [place] [address] Kourtney Cherry PA Vaginal Problem 01/15/2024 Telephone [facility] [address] [place] [address] Kourtney Cherry PA Results 01/15/2024 Travel 01/13/2024 1:45 PM CDT Phone Office Visit [facility] [address] [place] [phone] Keiko Downs, [facility] Individual Therapy; Phone Visit 01/13/2024 Travel 01/13/2024 Lab Requisition 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 Individual Therapy; Phone Visit 01/06/2024 Orders Only [facility] Scanner 1 scan: (1-Ord) [place], PELVIC TRANSVAGINAL, 01/06/2024 01/06/2024 Travel 12/26/2023 2:00 PM CDT Procedure Only [facility] [address] [place] [address] Tyler Parson L Ac Acupuncture 12/26/2023 Orders Only [facility] Scanner 1 scan: (1-Ord) [facility], ABDOMEN AND PELVIS W/CONTRAST, 12/26/2023 12/26/2023 Travel 12/23/2023 1:00 PM CDT Phone Office Visit [facility] [address] [place] [address] Keiko Downs 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 Individual Therapy; Phone Visit 12/16/2023 Travel 12/12/2023 2:00 PM CDT Procedure Only [facility] [address] [place] [address] Tyler Parson L Ac Acupuncture 12/12/2023 11:15 AM CDT Phone Office Visit [facility] [address] [place] [address] Freda Serrano MD Follow Up 12/12/2023 Travel 12/10/2023 Refill [facility] [address] [facility] [place] [address] Freda Serrano MD Refill Request (Vilazodone) 12/10/2023 Orders Only [facility] [address] [facility] [place] [address] Facundo Mijares MD 1 scan: (1-Ord) [facility], [place] BONE 3 PHASE, 12/04/2023 12/09/2023 1:00 PM CDT Phone Office Visit [facility] [address] Keiko Downs, [facility] Individual Therapy; Phone Visit 12/09/2023 Telephone [facility] [address] Facundo Mijares MD Questions 12/09/2023 Travel 12/02/2023 1:00 PM CDT Phone Office Visit [facility] [address] [facility] [place] [address] Keiko Downs, [facility] Individual Therapy; Phone Visit 12/02/2023 Travel 12/01/2023 Telephone [facility] [address] [place] [address] Facundo Mijares MD FYI 11/28/2023 2:00 PM CDT Procedure Only [facility] [address] [place] [address] Tyler Parson L Ac Acupuncture 11/27/2023 11:05 AM CDT Office Visit [facility] [address] [place] [address] Kourtney Cherry PA UTI (Or Yeast Infection) 11/27/2023 Telephone [facility] [address] [place] [address] Facundo Mijares MD Questions 11/27/2023 Travel 11/25/2023 11:30 AM CDT Phone Office Visit [facility] [address] [place] [address] Keiko Downs [facility] Individual Therapy; Phone Visit 11/25/2023 Travel 11/24/2023 Telephone [facility] [address] [place] [address] Facundo Mijares MD Prior Authorization (lidocaine 5 % topical patch (APPROVED 11/24/2023- Until Further Notice)) 11/19/2023 4:00 PM CDT Office Visit [facility] [address] [place] [address] Facundo Mijares MD Musculoskeletal Problem (Follow Up Right Leg Pain ) 11/19/2023 2:00 PM CDT Pharmacist Medication Management [facility] [address] [place] [address] Judie Carreno, Augusta[place] Pharmacist Medication Management ([facility] follow-up - [facility] patient - pain/depression treatment) 11/19/2023 Travel 11/18/2023 1:00 PM CDT Phone Office Visit [facility] [address] [place] [phone] Keiko Downs [facility] Individual Therapy; Phone Visit 11/18/2023 Telephone [facility] [address] [place] [address] Facundo Mijares MD Appointment Request 11/17/2023 1:45 PM CDT Phone Office Visit [facility] [address] [place] [address] Freda Serrano MD Phone Visit; Medication Management (Not doing very well today, Has MONTALVO, ) 11/17/2023 Travel 11/11/2023 1:00 PM CDT Phone Office Visit [facility] [address] [place] [address] Keiko Downs [facility] Individual Therapy; Phone Visit 11/10/2023 11:00 AM CDT Office Visit [facility] [address] [place] [address] Jyoti Sellers PA Follow Up (UTI, new plan) 11/10/2023 Travel 11/07/2023 1:00 PM CDT Procedure Only [facility] [address] [place] [address] Tyler Parson L Ac Acupuncture 11/07/2023 Travel 11/05/2023 Lab Requisition [facility] [phone] Corine Guillaume MD 11/04/2023 1:00 PM CDT Phone Office Visit [facility] [address] [place] [phone] Keiko Downs, [facility] Individual Therapy; Phone Visit 11/04/2023 11:15 AM CDT Phone Office Visit [facility] [address] [place] [address] Freda Serrano MD Phone Visit; Follow Up 11/04/2023 Travel from Last 3 Months Immunizations Name [...] Sign Reading Time Taken Comments Blood Pressure 120/82 01/22/2024 10:51 AM CDT Pulse 86 01/22/2024 10:51 AM CDT Temperature 36.9 ??C (98.4 ??F) 01/15/2024 11:11 AM C DT Respiratory Rate 16 04/01/2022 3:21 PM SALES PRODUCT SPECIALIST Oxygen Saturation 98% 01/22/2024 10:51 AM CDT Inhaled Oxygen Concentration - - Weight 74.1 kg (163 lb 6.4 oz) 01/22/2024 10:51 AM CDT Height 174 cm (5' 8.5) 04/14/2023 2:10 PM SALES PRODUCT SPECIALIST Body Mass Index 24.48 04/14/2023 2:10 PM SALES PRODUCT SPECIALIST Plan of Treatment Upcoming Encounters Date Type Department Care Team (Late st Contact Info) Description 02/06/2024 11:00 AM CDT Procedure Only [facility] [address] [place] [address] Tyler Parson L Ac [address] [place] [address] 02/10/2024 1:00 PM CDT Phone Office Visit [facility] [place] [phone] Keiko Downs LICSW [address] [facility] [address] 02/13/2024 10:15 AM CDT Orders Only [facility] [place] [address] Lab, [place] 02/13/2024 1:00 PM CDT Procedure Only [facility] [address] [place] [address] Tyler Parson L Ac [address] [place] [address] 02/17/2024 1:00 PM CDT Phone Office Visit [facility] [place] [phone] Keiko Dowsn LICSW [address] [place] [address] 02/25/2024 2:00 PM CDT Pharmacist Medication Management [facility] [address] [place] [address] Judie Carreno, PharmD [address] [facility] [place] [address] 02/27/2024 1:00 PM CDT Procedure Only [facility] [address] [place] [address] Tyler Parson L Ac [address] [place] [address] 03/02/2024 1:00 PM CDT Phone Office Visit [facility] [address] [place] [phone] Keiko Downs LICSW [address] [place] [address] 03/05/2024 11:00 AM CDT Procedure Only [facility] [address] [place] [address] Tyler Parson L Ac [address] [place] [address] 03/09/2024 1:00 PM CDT Phone Office Visit [facility] [address] [place] [phone] Keiko Downs LICSW [address] [place] [address] 03/12/2024 11:15 AM CDT Phone Office Visit [facility] [address] [place] [address] Freda Serrano MD [address] [place] [address] 03/12/2024 1:00 PM CDT Procedure Only [facility] [address] [facility] [address] Tyler Parson L Ac [address] [place] [address] 03/19/2024 10:30 AM SALES PRODUCT SPECIALIST Procedure Only [facility] [address] [place] [address] Tyler Parson L Ac [address] [facility] [address] 03/19/2024 11:30 AM SALES PRODUCT SPECIALIST Office Visit [facility] at [address] [phone] Walter Bourne MD [address] [address] 03/26/2024 1:00 PM SALES PRODUCT SPECIALIST Procedure Only [facility] [address] [facility] [place] [address] Tyler Parson L Ac [address] [place] [address] 04/02/2024 1:00 PM SALES PRODUCT SPECIALIST Procedure Only [facility] [address] [facility] [address] Tyler Parson L Ac [address] [place] [address] 04/07/2024 10:00 AM SALES PRODUCT SPECIALIST Procedure Only [facility] [address] [facility] [place] [address] Tyler Parson L Ac [address] [place] [address] 04/12/2024 2:00 PM SALES PRODUCT SPECIALIST Procedure Only [facility] [address] [place] [address] Tyler Parson, L Ac [address] [place] [address] 04/23/2024 1:00 PM SALES PRODUCT SPECIALIST Procedure Only [facility] [address] [place] [address] Tyler Parson, L Ac [address] [facility] [place] [address] 04/30/2024 1:00 PM SALES PRODUCT SPECIALIST Procedure Only [facility] [address] [place] [address] Tyler Parson, L Ac [address] [facility] [place] [address] 05/07/2024 1:00 PM SALES PRODUCT SPECIALIST Procedure Only [facility] [address] [place] [address] Tyler Parson, L Ac [address] [facility] [facility] [address] Health Maintenance Due Date Last Done Comments COVID-19 vaccine series (2023- season) 2024 06/11/2023, 08/21/2021, 02/21/2021, Additional history exists Influenza for age 50-64 01/11/2024 03/16/20, 03/27/2021, [...] series for age 50+ Completed 08/28/2020, 05/11/2020 Procedures Procedure Name Priority Date/Time Associated Diagnosis Comments ACUPUNCTURE PLAN OF CARE Routine 01/30/2024 1:07 PM CDT Other low back pain ACUPUNCTURE PLAN OF CARE Routine 01/23/2024 1:06 PM CDT Other low back pain CBC WITH AUTO DIFFERENTIAL Routine 01/22/2024 12:26 PM CDT Monoarticular juvenile rheumatoid arthritis (HC) SEDIMENTATION RATE Routine 01/22/2024 12 :26 PM CDT Monoarticular juvenile rheumatoid arthritis (HC) CREATININE Routine 01/22/2024 12:26 PM CDT Monoarticular juvenile rheumatoid arthritis (HC) C-REACTIVE PROTEIN Routine 01/22/2024 12 :26 PM CDT Monoarticular juvenile rheumatoid arthritis (HC) CBC WITH AUTO DIFFERENTIAL Routine 01/22/2024 12:26 PM CDT Monoarticular juvenile rheumatoid arthritis (HC) ACUPUNCTURE PLAN OF CARE Routine 01/16/2024 1:05 PM CDT Other low back pain UA W/ SEDIMENT EXAM REFLEXED PER CRITERIA Routine 01/15/2024 11:30 AM CDT Vaginal irritation TRICHOMONAS, CARMELO, AND BACTERIAL VAGINOSIS BY JUAN Routine 01/15/2024 11:25 AM CDT Vaginal irritation LAB TRACKING EVENT Routine 01/09/2024 12 :00 PM CDT PATH TISSUE EXAM Routine 01/09/2024 12:0 0 PM CDT SCAN-OPERATIVE/PROCEDU RE REPORT 01/09/2024 12:00 AM CDT SCAN-ULTRASOUND REPORT 12:00 AM CDT ACUPUNCTURE PLAN [...] EVENT Routine 11/04/2023 3: 50 PM CDT CONTACT WORKER LITHOGRAPHY THIN PREP PAP SCREEN IMAGED Routine 11/04/2023 3:50 PM CDT HPV HIGH RISK Routine 11/04/2023 3:50 PM CDT XR MAMMO EVA BILAT SCREEN Routine 08/01/2023 3:29 PM CDT Visit for screening mammogram LIPID PANEL W REFLEX MEASURED LDL Routine 07/08/2023 12:07 PM SALES PRODUCT SPECIALIST Hyperlipidemia, unspecified hyperlipidemia type SCAN-COLONOSCOPY 01/28/2022 1:00 PM CDT ANTI HIV 1/2 Routine 06/01/2018 4:02 PM SALES PRODUCT SPECIALIST Exposure to STD ANTI HCV Routine 09/30/2017 5:38 PM CDT STD exposure from Last 3 Months or Most Recently Relevant to Health Maintenance Results * SEDIMENTATION RATE (01/22/2024 12:26 PM CDT) SEDIMENTATION RATE 6 <30 mm/hr 2023 12:37 AM CDT [facility] Blood BLOOD SPECIMEN / Unknown Venipuncture / Unknown 01/22/2024 12:26 PM CDT 01/22/2024 12:27 PM CDT Nivia Bruno MD [facility] [address] [place] [id number], * CBC WITH AUTO DIFFERENTIAL (01/22/2024 12:26 PM CDT) WHITE BLOOD COUNT 5.0 4.5 - 11.0 thou/cu mm 01/22/2024 12:31 PM CDT [facility] RED BLOOD COUNT 4.73 4.00 - 5.20 mil/cu mm 01/22/2024 12:31 PM CDT [facility] HEMOGLOBIN 14.9 12.0 - 16.0 g/dL 01/22/2024 12:31 PM CDT [facility] HEMATOCRIT 44.0 33.0 - 51.0 % 01/22/2024 12:31 PM CDT [facility] MCV 93 80 - 100 fL 01/22/2024 12:31 PM CDT [facility] MCH 31.5 26.0 - 34.0 pg 01/22/2024 12:31 PM CDT [facility] MCHC 33.9 32.0 - 36.0 g/dL 01/22/2024 12:31 PM CDT [facility] RDW 12.3 11.5 - 15.5 % 01/22/2024 12:31 PM CDT [facility] PLATELET COUNT 260 140 - 440 thou/cu mm 01/22/2024 12:31 PM CDT [facility] MPV 9.4 6.5 - 11.0 fL 01/22/2024 12:31 PM CDT [facility] % NEUT 66.8 % 01/22/2024 12:31 PM CDT [facility] % LYMPH 24.2 % 01/22/2024 12:31 PM CDT [facility] % MONO 7.4 % 01/22/2024 12:31 PM CDT [facility] % EOS 1.2 % 01/22/2024 12:31 PM CDT [facility] % BASO 0.4 % 01/22/2024 12:31 PM CDT [facility] ABSOLUTE NEUTROPHILS 3.3 1.7 - 7.0 thou/cu mm 01/22/2024 12:31 PM CDT [facility] ABSOLUTE LYMPHOCYTES 1.2 0.9 - 2.9 thou/cu mm 01/22/2024 12:31 PM CDT [facility] ABSOLUTE MONOCYTES 0.4 <0.9 thou/cu mm 01/22/2024 12:31 PM CDT [facility] ABSOLUTE EOSINOPHILS 0.1 <0.5 thou/cu mm 01/22/2024 12:31 PM CDT [facility] ABSOLUTE BASOPHILS 0.0 <0.3 thou/cu mm 01/22/2024 12:31 PM CDT [facility] Blood BLOOD SPECIMEN / Unknown Venipuncture / Unknown 01/22/2024 12:26 PM CDT 01/22/2024 12:27 PM CDT Narrative [facility] - 01/22/2024 12:31 PM CDT This testing was ordered by an outside provider. The provider who placed this order has reviewed and approved it for completion by the lab, but is not involved in this patient's care related to the ordering of this lab. The lab will provide the testing results for CDF, CRP, Creat and ESR, to the outside ordering provider, Booker Jewell at fax number [phone], for that provider to inform and arrange appropriate follow up with the patient. Denise Pacheco MLT ([facility]).................... ??01/22/2024 ?? 12:24 PM Nivia Bruno MD HEMATOLOGY Performing Organization Address [facility] Co de Phone Number [facility] [address] [place] [address], * (ABNORMAL) CREATININE (01/22/2024 12:26 PM CDT) eGFR 77(L) >90 mL/min/1.7 3m2 01/23/2024 4:00 AM CDT [facility] Comment:As of 2021, eG FR is calculated by the CKD-EPI creatinine equation without race adjustment. ??eGFR can be influenced by muscle mass, exercise, and diet. ??The reported eGFR is an estimation only and is only applicable if the renal function is stable. CREATININE 0.85 0.50 - 0.90 mg/dL 01/23/2024 4:00 AM CDT [facility] Blood BLOOD SPECIMEN / Unknown Venipuncture / Unknown 01/22/2024 12:26 PM CDT 01/22/2024 12:27 PM CDT Nivia Bruno MD CHEMISTRY Performing Organization Address [facility]/ZIP Co de Phone Number [facility] [address] [place] [address], [place] * C-REACTIVE PROTEIN (01/22/2024 12:26 PM CDT) C-REACTIVE PROTEIN <0.3 <0.5 mg/dL 01/23/2024 4:01 AM CDT [facility] Blood BLOOD SPECIMEN / Unknown Venipuncture / Unknown 01/22/2024 12:26 PM CDT 01/22/2024 12:27 PM CDT Nivia Bruno MD CHEMISTRY [facility] [address] [place] [address], [place] * UA W/ SEDIMENT EXAM REFLEXED PER CRITERIA (01/15/2024 11:30 AM CDT) Only the most recent of2 resultswithin the time period is included. COLOR Yellow Yellow Color 01/15/2024 12:03 PM CDT [facility] CLARITY Clear Clear Clarity 01/15/2024 12:03 PM CDT [facility] SPECIFIC GRAVITY,URINE 1.020 1.010, 1.015, 1.020, 1.025 01/15/2024 12:03 PM CDT [facility] PH,URINE 6.0 6.0, 7.0, 8.0, 5.5, 6.5, 7.5, 8.5 01/15/2024 12:03 PM CDT [facility] UROBILINOGEN, QUALITATIVE Normal Normal EU/dl 01/15/2024 12:03 PM CDT [facility] PROTEIN, URINE Negative Negative mg/dL 01/15/2024 12:03 PM CDT [facility] GLUCOSE, URINE Negative Negative mg/dL 01/15/2024 12:03 PM CDT [facility] KETONES,URINE Negative Negative mg/dL 01/15/2024 12:03 PM CDT [facility] BILIRUBIN,URI NE Negative Negative 01/15/2024 12:03 PM CDT [facility] OCCULT BLOOD,URINE Negative Negative 01/15/2024 12:03 PM CDT [facility] NITRITE Negative Negative 01/15/2024 12:03 PM CDT [facility] LEUKOCYTE ESTERASE Negative Negative 01/15/2024 12:03 PM CDT [facility] Urine URINE SPECIMEN / Unknown Non-Blood / Unknown 01/15/2024 11:30 AM CDT 01/15/2024 12:00 PM CDT Kourtney GUERRERO URINE [facility] [address] [place] [address], * (ABNORMAL) TRICHOMONAS, CARMELO, AND BACTERIAL VAGINOSIS BY JUAN (01/15/2024 11:25 AM CDT) Only the most recent of2 resultswithin the time period is included. CARMELO SPECIES Positive(A) Negative 01/15/20 9:05 PM CDT [facility] CARMELO GLABRATA Negative Negative 01/15/2024 9:05 PM CDT [facility] TRICHOMONAS VVA Negative Negative 9:05 PM CDT [facility] BACTERIAL VAGINOSIS Negative Negative 01/15/2024 9:05 PM CDT [facility] Other VAGINAL SWAB / Unknown Non-Blood / Unknown 01/15/2024 11:25 AM CDT 01/15/2024 11:50 AM CDT Kourtney GUERRERO MICROBIOLOGY [facility] [address] [place] [address], * LAB TRACKING EVENT (01/09/2024 12:00 PM CDT) Only the most recent of2 resultswithin the time period is included. Other (Other) Client Collect / Unknown 01/09/2024 12:00 PM CDT 01/13/2024 3:27 PM CDT Quita Vance PA-C LAB BILL ONLY [facility] [address] [place] [address], * PATH TISSUE EXAM (01/09/2024 12:00 PM CDT) Case Report Pathology Report ?Case: [id number] ? Authorizing Provider: ??Quita Vance PA-C ?Collected: ? 01/09/2024 1200 ? Ordering Location: ? [facility] ?Received: ?01/13/2024 1656 ? Pathologist: ? Nelli Aj MD ? Specimen: ?Endometrial Biopsy ? 01/15/2024 10:18 AM CDT [facility] Final Diagnosis A) ENDOMETRIUM, BIOPSY: 1. Scant fragments of proliferative endometrium with chronic endometritis and focal breakdown 2. Negative for hyperplasia, atypia, and malignancy 3. See comment 01/15/2024 10:18 AM CDT [facility] Comment Chronic endometritis in a non-obstetric patient may be due to a variety of causes, including infections (Chlamydia trachomatis, Mycoplasma spp, CMV, HSV, and others), response to a foreign body (such as an intrauterine device), or pelvic radiotherapy. Chronic endometritis occasionally occurs in background endometrium of patients with submucosal leiomyomas or endometrial polyps; removal of the lesion usually resolves the inflammatory response. Despite the wide spectrum of etiologies, more than a third of cases of chronic endometritis are idiopathic. Additionally, the clinical history is listed as menorrhagia in a 63-year-old patient. ??Please correlate with menopausal status and any history of hormone replacement therapy. ??In a postmenopausal patient not taking estrogen replacement therapy, the presence of proliferative endometrium could indicate a hyperestrogenic state (such as due to peripheral estrogen production in obesity, rare ovarian conditions/neoplas ms, other causes). ?? 01/15/2024 10:18 AM T [facility] Clinical Information Menorrhagia 01/15/2024 10:18 AM T [facility] Hoods [facility] Gross Description A) Received in formalin, labeled with the patient's name and date of , is a 0.2 x 0.7 x 0.2 cm aggregate of pink-quigley mucosa admixed with clotted blood and mucous. The specimen is entirely submitted in 1 cassette. TLF 01/13/2024 01/15/2024 10:18 AM T [facility] Microscopic Description The final diagnosis is based on microscopic examination of appropriate sections of all specimens. 01/15/2024 10:18 AM T [facility] Additional Information Interpreted at [facility] [employer] [facility], Central Laboratory - [address] [address] 01/15/2024 10:18 AM T [facility] [employer]s [facility] Other (Endometrial Biopsy) 01/09/2024 12:00 PM CDT 01/13/2024 4:56 PM CDT Quita Vance PA-C PATHOLOGY/CYTOLOGY [facility] [address] [place] [address], [place] * SCAN-OPERATIVE/PROCEDURE REPORT (01/09/2024 12:00 AM CDT) Scanner OTHER * SCAN-ULTRASOUND REPORT (01/06/2024 12:00 AM CDT) [...] SKELETON Other Facundo Mijares MD [place] * CONTACT WORKER LITHOGRAPHY THIN PREP PAP SCREEN IMAGED (11/04/2023 3:50 PM CDT) Case Report Gynecologic Cytology Report ? Case: [id number] ? Authorizing Provider: ??Corine Guillaume MD ?Collected: ? 11/04/2023 1550 ? Ordering Location: ? [facility] ?Received: ?11/06/2023 0926 ? First Screen: ?Kathy Stephens ? Specimen: ?CONTACT WORKER LITHOGRAPHY ThinPrep Vial Screening, Cervical ? 11/12/2023 1:05 PM CDT [facility] INTERPRETATION/ RESULT NEGATIVE FOR INTRAEPITHELIAL LESION OR MALIGNANCY (NIL) (none) 11/12/2023 1:05 PM CDT [facility] IMEN ADEQUACY Satisfactory for evaluation Endocervical component present 11/12/2023 1:05 PM CDT [facility] HPV REQUEST HPV and PAP 11/12/2023 1:05 PM CDT [facility] Last Pap Date 11/12/2023 1:05 PM CDT [facility] Comment:09/2017 Last Pap Result NIL 1:05 PM CDT [facility] Abnormal Pap or [place] Bx in last 5 years No 11/12/2023 1:05 PM CDT [facility] Menstrual Status Postmenopausal 11/12/2023 1:05 PM CDT [facility] [place] Bx Done Today No 11/12/2023 1:05 PM CDT [facility] Additional Information 11/12/2023 1:05 PM CDT [facility] Comment: Interpreted at [facility], Central Laboratory - [address], [place] [address] Automated Review Successful 11/12/2023 1:05 PM CDT [facility] Comment:Specimen processed s uccessfully by automated machinist class b device, ThinPrep Imaging System, [employer] ANCILLARY TESTING CONTACT WORKER LITHOGRAPHY HPV Ordered, Please see separate report 11/12/2023 1:05 PM CDT [facility] Note The pap test is [...] and malignant lesions. 11/12/2023 1:05 PM CDT [facility] Other (Cervical) 11/04/2023 3:50 PM CDT 11/06/2023 9:26 AM CDT Corine Guillaume MD PATHOLOGY/CYTOLOGY [facility] [address] [place] [address], * HPV HIGH RISK (11/04/2023 3:50 PM CDT) TYPE 16 Negative Negative 11/07/2023 4:00 PM CDT [facility] TYPE 18 Negative Negative 11/07/2023 4:00 PM CDT [facility] OTHER HIGH RISK TYPES Negative Negative 11/07/2023 4:00 PM CDT [facility] Other (Cervical) 11/04/2023 3:50 PM CDT 11/06/2023 9:26 AM CDT Narrative [facility] - 11/07/2023 4:00 PM CDT HPV types 16, 18, 31, 33, 35, 39, 45, 51, 52, 56, 58, 59, 66 and 68 DNA were undetectable or below the pre-set threshold. Methodology: Jacek Karen 4800 HPV Test Corine Guillaume MD MICROBIOLOGY [facility] [address] [place] [address], [place] * XR MAMMO EVA BILAT SCREEN [...] care provider. XR MAMMO EVA BILAT SCREEN [[id number]] CLINICAL HISTORY: ??This is an asymptomatic 63 y.o. patient. INDICATION FOR EXAM: Mammogram Screening. TECHNIQUE: CC & MLO views were obtained. ??This study was evaluated with the assistance of Computer-Aided Detection. Breast Tomosynthesis was used in interpretation. COMPARISON FILM: Yes [facility]/13/22 [facility] 05[facility]10[facility]21 [facility] FINDINGS: ??The breasts have scattered areas of fibroglandular density. There are no dominant masses, suspicious micro calcifications or areas of architectural distortion. Nivia Bruno MD MAMMO * (ABNORMAL) LIPID PANEL W REFLEX MEASURED LDL (07/08/2023 12:07 PM SALES PRODUCT SPECIALIST) CHOLESTEROL,TOTAL 285(H) 100 - 199 mg/dL 07/08/2023 9:55 PM SALES PRODUCT SPECIALIST [facility] Comment: Cholesterol, Total Reference Ranges Desirable <200 mg/dL Borderline 200-239 mg/dL High >=240 mg/dL TRIGLYCERIDES 97 <150 mg/dL 07/08/2023 9:55 PM SALES PRODUCT SPECIALIST [facility] HDL CHOLESTEROL 76 >40 mg/dL 9:55 PM [facility] NON-HDL CHOLESTEROL 209(H) <145 mg/dl 07/08/2023 9:55 PM [facility] CHOL/HDL RATIO 3.75 <4.50 07/08/2023 9:55 PM [facility] LDL CHOLESTEROL 190(H) <=130 mg/dL 07/08/2023 9:55 PM [facility] VLDL CHOLESTEROL 19 <=30 mg/dL 07/08/2023 9:55 PM [facility] PROVIDER ORDERED STATUS RANDOM 07/08/2023 9:55 PM [facility] Blood BLOOD SPECIMEN / Unknown Venipuncture / Unknown 07/08/2023 12:07 PM SALES PRODUCT SPECIALIST 07/08/2023 12:07 PM SALES PRODUCT SPECIALIST Nivia Bruno MD CHEMISTRY [facility] [address] [place] [address], * SCAN-COLONOSCOPY (01/28/2022 1:00 PM CDT) Narrative Procedure Note Edison Ceron MD - 01/28/2022 12:02 PM CDT [facility] [address], [address], [place] [address] Patient Name: Juliette Brown Gender: Female Exam Date: 01/28/2022 Visit Number: [id number] Age: 61 Years 9 Months Date of : 1960 Attending MD: Edison Ceron MD Medical Record#: [id number] ----- Procedure: Colonoscopy Indications: Recent history of [...] Race: White Ethnicity: Not or Preferred Language: Finnish cc: Nivia Bruno MD [facility] [phone] Edison Ceron MD OTHER * ANTI HIV 1/2 (06/01/2018 4:02 PM SALES PRODUCT SPECIALIST) Pathologist [facility] HIV-1/HIV-2 ANTIBODY Non-Reacti ve Non-Reacti ve 06/01/2018 8:08 PM SALES PRODUCT SPECIALIST [facility] Comment:HIV-1 p24 and HIV-1/ HIV-2 Ab not detected. Blood BLOOD SPECIMEN / Unknown Venipuncture / Unknown 06/01/2018 4:02 PM SALES PRODUCT SPECIALIST 06/01/2018 4:02 PM SALES PRODUCT SPECIALIST Nivia Bruno MD [facility] [address] [place] [address], * ANTI HCV (09/30/2017 5:38 PM CDT) Pathologist [facility] HEPATITIS C ANTIBODY Non-React mathieu Non-React mathieu 10/01/2017 2:41 PM CDT [facility] Comment:Antibodies to HCV no t detected; does not exclude the possibility of exposure to HCV. Blood BLOOD SPECIMEN / Unknown Venipuncture / Unknown 09/30/2017 5:38 PM CDT 09/30/2017 5:38 PM CDT Kourtney GUERRERO SEND OUTS [facility] [address] [place] [address], from Last 3 Months or Most Recently Relevant to Health Maintenance Advance Directives Documents on File Type Date Recorded Patient [employer] Expl anation Healthcare Directive 04/01/2022 022 * [...] 6:43 PM 06/10/2011 6:41 PM Care Teams Patient Access Coordinator Relationship Specialty Start Date End Date Nivia Bruno MD [address] [place] [address] PCP - General Family Practice 07/01/19 Judie Carreno, Zoraida [address] [place], [place] [address] [address] Pharmacist Medication Management Pharmacology 05/28/23 05/28/25
--- OUTSIDE RECORDS SUMMARY | 2024-02-04 17:22 | XMS_ITS | Encounter Summary ---
Author Organization [facility] Address [address] [place] [address] Care Team Providers Care Professor Of Voice Name Role Phone Heladio Martins MD Primary Care Provider Kelsi Glez MD Unavailable [phone] Nivia Bruno MD Primary Care Provider [phone] Reason for Visit * Reason Onset Date Comments MH/CD Inpatient 04/15/2016 Encounter Details Date Type Department Care Team ([facility] Contact Info) Description 04/15/2016 Telephone [facility] Behavioral Health Intake [address] [place] [address] Generic, Behavioral Intake, MD MH/CD Inpatient Social [...] as it is after 10pm); unit notified E OILER documented in this encounter Plan of Treatment Not on file documented as of this encounter Visit Diagnoses Not on filedocumented in this encounter Care Teams Professor Of Voice Relationship Specialty Start Date End Date Heladio Martins MD PCP - General Internal Medicine 03/05/16 03/21/21 Nivia Bruno MD [address] [place] [address] PCP - General 03/22/21 Kelsi Handy MD [address] [place] [address] Assigned OBGYN Provider 04/23/20 3 documented as of this encounter
--- OUTSIDE RECORDS SUMMARY | 2024-02-04 17:22 | XMS_ITS | Encounter Summary ---
Author Organization [facility] Address [address] [place] [address] Care Team Providers Care Interlacer Name Role Phone Kelsi Handy MD Unavailable [phone] Nivia Bruno MD Primary Care Provider [phone] Encounter Details Date Type Department Care Team ([facility] Contact Info) Description 06/13/2021 Telephone [facility] Behavioral Health Intake [address] [place] [address] Generic, Behavioral Intake, Social History [...] KETTY Lynn sent at 06/29/2021 11:41 AM LEGAL BILLING ANALYST ----- Regarding: new start Clinic 1 on 07/05 Scheduling Request Patient Name: Juliette Brown Location of programmin+ Start Date: June Group: Clinic 1 on at 1:00 to 3:00PM Attending Provider (MD): 12 Number of visits to be scheduled: 12 Duration of Appointment in minutes: 120 min Visit Type: Zoom - [id number] Additional notes: L BILLING ANALYST * Telephone Encounter - Jen Serrano - 06/13/2021 9:38 AM CST ----- Message from SHANNON Warner sent at 06/13/2021 9:12 AM LEGAL BILLING ANALYST ----- Regarding: add appointment Scheduling Request Patient Name: ?? Location of programming: [facility] 55+ Start Date:06/13/21 Group (BHxxxxx on #days of the week# at #start time to end time#): 55+ B1 M,W,F 1-4pm Provider (name of MD): Niall Number of visits to be scheduled: 1 Duration of Appointment in minutes: 180 mins Visit Type (Robert - 4102 / Zoom - 6437 / In-person or Treatment - 870) :2657-zoom Additional notes: L BILLING ANALYST documented in this encounter Plan of Treatment Not on file documented as of this encounter Visit Diagnoses Not on filedocumented in this encounter Additional Health Concerns Assessment Noted Time PHQ-9 Depression Total Score: 7 06/14/19 22 10:59 AM LEGAL BILLING ANALYST documented as of this encounter Care Teams Interlacer Relationship Specialty Start Date End Date Nivia Bruno MD [address] [place] [address] PCP - General 03/22/21 Kelsi Handy MD [address] [place] [address] Assigned OBGYN Provider 04/23/20 3 documented as of this encounter
--- OUTSIDE RECORDS SUMMARY | 2024-02-04 17:22 | XMS_ITS | Encounter Summary ---
Author Organization [facility] Address [address] [place] [address] Care Team Providers Care Family And Consumer Sciences Professor Name Role Phone Needs Pcp, Assignment Primary Care Provider [phone] Reason for Visit * Auth/Cert Specialty Diagnoses / Procedures Referred By Contac t Referred To Contact Diagnoses Diarrhea of presumed infectious origin Fibromyalgia Diarrhea of presumed infectious origin Fibromyalgia Diarrhea of presumed infectious origin Fibromyalgia Referral ID Status Reason Start Date Expiration Date Visits Re quested Visits Authorized [id number] 1 1 Encounter Details Date Type Department Care Team (Latest Contact Info) Description 07/15/2019 Lab Requisition [facility] [address] [place] [address] Lul Hunter MD [address] [place], [place] [id number] Enterocolitis due to Clostridium difficile, not specified [...] C.DIFFICILE TOXIN,MOLECULAR DETECTION Routine 07/15/2019 10:00 PM BRAINER Enterocolitis due to Clostridium difficile, not specified as recurrent documented in this encounter Results * (ABNORMAL) C.Difficile Toxin,Molecular Detection, (07/15/2019 10:00 PM BRAINER) C.difficile by PCR Detected( A) Not Detected 07/15/2019 11:30 PM BRAINER [facility] Stool Non-blood Collection / Unknown 07/15/2019 10:00 PM BRAINER 07/15/2019 10:24 PM BRAINER Narrative [facility] - 07/15/2019 11:30 PM BRAINER Methodology: Qualitative real-time PCR assay to detect the Clostridium difficile toxin B gene. Lul Hunter MD LAB_1 [facility] [address] [place], [place] [address] [place] [address] documented in this encounter Visit Diagnoses Diagnosis Enterocolitis due to Clostridium difficile, not specified as recurrent documented in this encounter Care Teams Family And Consumer Sciences Professor Relationship Specialty Start Date End Date Needs Pcp, [place] [address] PCP - General 02/28/21 documented as of this encounter
--- OUTSIDE RECORDS SUMMARY | 2024-02-04 17:22 | XMS_ITS | Clinical Summary ---
Author Organization [facility] Address [address] [place] [address] Care Team Providers Care Business Objects Analyst Name Role Phone Nivia Bruno MD Primary Care Provider [phone] Allergies Active Allergy Reactions Criticality Noted Date [...] Take 1 tablet by mouth 07/22/2014 Active [place]-3 1000 MG CAPS 04/02/2016 Acti ve Saline (SODIUM CHLORIDE) 0.65 % SOLN Chloride 1 spray in nostril 01/28/2015 Active traZODone [...] of recurrent major depressive disorder, without psychotic features,Anxiety Take 1 tablet (0.5 mg) by mouth [...] 2 - Risk 2-dose series) 10/26/2008 04/27/2008 TSH W/FREE T4 REFLEX 06/23/2018 06/23/2017, 04/15/20 16 GLUCOSE 06/23/2020 06/23/2017, 04/15/2016 PHQ-9 12/11/2021 06/13/2021, 12/0 10/2020, 03/21/2021, Additional history exists MAMMO SCREENING 05/10/2023 05/10/2021 COVID-19 Vaccine ( season) 2024 02/21/2021, 08/09/2020, 07/19/2020 INFLUENZA VACCINE (#1) 2024 , 02/24/2020, 02/07/2014, Additional history exists DTAP/TDAP/TD IMMUNIZATION (6 - Td or Tdap) 05/31/2026 05/31/2016, 05/31/2016, 09/30/2005, Additional history exists RSV VACCINE (1 - 1-dose 75+ series) 2034 Pneumococcal Vaccine: Pediatrics (0 to 5 Years) [...] BASIC METABOLIC PANEL Routine 06/23/2017 6:00 AM RISK COMPLIANCE ANALYST TSH Routine 06/23/2017 6:00 AM RISK COMPLIANCE ANALYST from Last 3 Months or Most Recently Relevant to Health Maintenance Results * TSH (06/23/2017 6:00 AM RISK COMPLIANCE ANALYST) TSH 2.31 0.30 - 5.00 uIU/mL 06/23/2017 10:31 AM RISK COMPLIANCE ANALYST [facility] Blood specimen (specimen) STRUCTURE OF LEFT UPPER LIMB / Unknown Venipuncture / Unknown 06/23/2017 6:00 AM RISK COMPLIANCE ANALYST 06/23/2017 9:50 AM RISK COMPLIANCE ANALYST Rosmery Simpson MD LAB - BLOOD ORDER KAYLEN Performing Organization Address City/State/[facility] Co de Phone Number [facility] [address] [address], [facility] [address] [address] * Basic metabolic panel (06/23/2017 6:00 AM RISK COMPLIANCE ANALYST) Sodium 139 136 - 145 mmol/L 06/23/2017 10:13 AM RISK COMPLIANCE ANALYST [facility] Potassium 4.2 3.5 - 5.0 mmol/L 06/23/2017 10:13 AM RISK COMPLIANCE ANALYST [facility] Chloride 103 98 - 107 mmol/L 06/23/2017 10:13 AM RISK COMPLIANCE ANALYST [facility] Carbon Dioxide (CO2) 29 22 - 31 mmol/L 06/23/2017 10:13 AM [facility] Anion Gap 7 5 - 18 mmol/L 06/23/2017 10:13 AM [facility] Glucose 105 70 - 125 mg/dL 06/23/2017 10:13 AM [facility] Calcium 9.4 8.5 - 10.5 mg/dL 06/23/2017 10:13 AM [facility] Urea Nitrogen 16 8 - 22 mg/dL 06/23/2017 10:13 AM [facility] Creatinine 0.69 0.60 - 1.10 mg/dL 06/23/2017 10:13 AM [facility] GFR Estimate If Black >60 >60 mL/min/1.7 3m2 06/23/2017 10:13 AM [facility] GFR Estimate >60 >60 mL/min/1.7 3m2 06/23/2017 10:13 AM [facility] Blood specimen (specimen) STRUCTURE OF LEFT UPPER LIMB / Unknown Venipuncture / Unknown 06/23/2017 6:00 AM RISK COMPLIANCE ANALYST 06/23/2017 9:50 AM RISK COMPLIANCE ANALYST Narrative [facility] - 06/23/2017 10:13 AM [facility] Fasting Glucose reference range is 70-99 mg/dL per [place] Diabetes [employer] (ADA) guidelines. Rosmery Simpson MD LAB - BLOOD ORDER KAYLEN [facility] [address] [place] [address], [facility] [address] [place] [address] from Last 3 Months or Most Recently Relevant to Health Maintenance Advance Directives For more information, please contact: [phone] * Full Code (Latest Code Status on File) Date Activated Date Inactivated Comments 04/16/2016 1:58 AM 04/22/2016 3:55 PM Care Teams Business Objects Analyst Relationship Specialty Start Date End Date Nivia Bruno MD PCP - General 03/22/21
--- OUTSIDE RECORDS SUMMARY | 2024-02-04 17:22 | XMS_ITS | Encounter Summary ---
Author Organization [place] Address [address] [place] [address]. [place] [address] Care Team Providers Care Superintendent Ammunition Storage Name Role Phone Kelsi Handy MD Unavailable [phone] Nivia Bruno MD Primary Care Provider [phone] Encounter Details Date Type Department Care Team ([facility] Contact Info) Description 09/25/2021 Telephone [facility] Behavioral Health Intake [address] [place] [address] Generic, Behavioral Intake, Social History [...] Patient Name: ?? Location of programming: [facility] Start Date: 09/27/21 Group (BHxxxxx on #days of the week# at #start time to end time#): 55+ clinic 1 Provider (name of MD):kerry Number of visits to be scheduled: 1 Duration of Appointment in minutes: 120 mins Visit Type (Robert - 6239 / Zoom - 2651 / In-person or Treatment - 870) :zoom 2657 Additional notes: documented in this encounter Plan of Treatment Not on file documented as of this encounter Visit Diagnoses Not on filedocumented in this encounter Additional Health Concerns Assessment Noted Time PHQ-9 Depression Total Score: 7 06/14/19 22 10:59 AM MANAGER DATABASE documented as of this encounter Care Teams Superintendent Ammunition Storage Relationship Specialty Start Date End Date Nivia Bruno MD [address] [place] [address] PCP - General 03/22/21 Kelsi Handy MD [address] [place] [address] Assigned OBGYN Provider 04/23/20 3 documented as of this encounter
--- OUTSIDE RECORDS SUMMARY | 2024-02-04 17:22 | XMS_ITS | Encounter Summary ---
Author Organization [place] Address [facility] [place] [address] Care Team Providers Care Hog Cooler Name Role Phone Heladio Martins MD Primary Care Provider Kelsi Glez MD Unavailable [phone] Nivia Bruno MD Primary Care Provider [phone] Encounter Details Date Type Department Care Team (Latest Contact Info) Description 03/06/2021 [facility] Treatment Plan [facility] [address] [place] [phone] Dav Tierney MD [address] [place] [address] Megan Ruiz, SHANNON Major depressive [...] Diagnoses Diagnosis Major depressive disorder, recurrent episode, severe- Primary Major depressive disorder, recurrent episode, severe, without mention of psychotic behavior documented in this encounter Additional Health Concerns Assessment Noted Time PHQ-9 Depression Total Score: 21 021 12:28 PM CDT documented as of this encounter Care Teams Hog Cooler Relationship Specialty Start Date End Date Heladio Martins MD PCP - General Internal Medicine 03/05/16 03/21/21 Nivia Bruno MD [address] [place] [address] PCP - General 03/22/21 Kelsi Handy MD [address] [place] [address] Assigned OBGYN Provider 04/23/20 3 documented as of this encounter
--- OUTSIDE RECORDS SUMMARY | 2024-02-04 17:22 | XMS_ITS | Referral Summary ---
Author Organization [place] Address [address] [place] [address] Care Team Providers Care Acetone Recovery Worker Name Role Phone Nivia Bruno MD Primary Care Provider [phone] Allergies Active Allergy Reactions Criticality Noted Date [...] Take 1 tablet by mouth 07/22/2014 Active [place]-3 1000 MG CAPS 04/02/2016 Acti ve Saline (SODIUM CHLORIDE) 0.65 % SOLN [place] 1 spray in nostril 01/28/2015 Active traZODone [...] daily Active LORazepam (ATIVAN) 0.5 MG tabletIndications:Se ilyah episode of recurrent major depressive disorder, without [...] BASIC METABOLIC PANEL Routine 06/23/2017 6:00 AM ELECTION SUPERVISOR TSH Routine 06/23/2017 6:00 AM ELECTION SUPERVISOR from Last 3 Months or Most Recently Relevant to Health Maintenance Results * TSH (06/23/2017 6:00 AM ELECTION SUPERVISOR) TSH 2.31 0.30 - 5.00 uIU/mL 06/23/2017 10:31 AM ELECTION SUPERVISOR [facility] Blood specimen (specimen) STRUCTURE OF LEFT UPPER LIMB / Unknown Venipuncture / Unknown 06/23/2017 6:00 AM ELECTION SUPERVISOR 06/23/2017 9:50 AM ELECTION SUPERVISOR Rosmery Simpson MD LAB - BLOOD ORDER KAYLEN Performing Organization Address City/State/[facility] Co de Phone Number [facility] [address] [place] [address], [facility] [address] [address] * Basic metabolic panel (06/23/2017 6:00 AM ELECTION SUPERVISOR) Sodium 139 136 - 145 mmol/L 06/23/2017 10:13 AM ELECTION SUPERVISOR [facility] Potassium 4.2 3.5 - 5.0 mmol/L 06/23/2017 10:13 AM [facility] Chloride 103 98 - 107 mmol/L 06/23/2017 10:13 AM [facility] Carbon Dioxide (CO2) 29 22 - 31 mmol/L 06/23/2017 10:13 AM [facility] Anion Gap 7 5 - 18 mmol/L 06/23/2017 10:13 AM [facility] Glucose 105 70 - 125 mg/dL 06/23/2017 10:13 AM [facility] Calcium 9.4 8.5 - 10.5 mg/dL 06/23/2017 10:13 AM [facility] Urea Nitrogen 16 8 - 22 mg/dL 06/23/2017 10:13 AM [facility] Creatinine 0.69 0.60 - 1.10 mg/dL 06/23/2017 10:13 AM [facility] GFR Estimate If Black >60 >60 mL/min/1.7 3m2 06/23/2017 10:13 AM [facility] GFR Estimate >60 >60 mL/min/1.7 3m2 06/23/2017 10:13 AM [facility] Blood specimen (specimen) STRUCTURE OF LEFT UPPER LIMB / Unknown Venipuncture / Unknown 06/23/2017 6:00 AM ELECTION SUPERVISOR 06/23/2017 9:50 AM ELECTION SUPERVISOR Narrative [facility] - 06/23/2017 10:13 AM ELECTION SUPERVISOR Fasting Glucose reference range is 70-99 mg/dL per [place] [employer] (ADA) guidelines. Rosmery Simpson MD LAB - BLOOD ORDER KAYLEN [facility] [address] [place] [address], [facility] [address] [place] [address] from Last 3 Months or Most Recently Relevant to Health Maintenance Advance Directives For more information, please contact: [phone] * Full Code (Latest Code Status on File) Date Activated Date Inactivated Comments 04/16/2016 1:58 AM 04/22/2016 3:55 PM Care Teams Acetone Recovery Worker Relationship Specialty Start Date End Date Nivia Bruno MD PCP - General 03/22/21
--- OUTSIDE RECORDS SUMMARY | 2024-02-04 17:23 | XMS_ITS | Continuity of Care Document ---
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 [address] [facility], [facility] [address], [place], [place], [id number], [place]. tel:[phone] [facility] CESAR [address] [address], [place], [id number], [place] tel:[phone] [facility] Diverticulosis of colon (without mention of hemorrhage)Dvr tclos of lg int w/o perforation or abscess w/o bleeding No Information Referring Provider: Referral Self, USE FOR SELF REFERRALS. [facility] JENN[address]ER [address] [address], [place], [id number], [place] tel:[phone] [facility] No Information 2 No Information Telephone E&M III 21-30 Min SUSU [facility], [address] [address], [place], [id number], [place] tel:[phone] [facility] GI Symptoms or Concerns (chief complaint) Diverticulitis 2 [employer] CES[facility] Squires. [address] [facility] [address], [place], [id number], [place]. tel:[phone] Referring Provider: Referral Self, USE FOR SELF REFERRALS. [facility], [address] [address], [place], [place], [id number], [place] tel:[phone] [facility] No Information 2 Link MD Null. [address] [facility] [address], [place], [id number], [place]. tel:[phone] [facility], [address] [address], [place], [id number], [place] tel:[phone] [facility] Diverticulosis of colon (without mention of hemorrhage)Per pinky history of colonic polypsDvtrcli of lg int w/o perforation or abscess w/o bleedingDvrtcl os of lg int w/o perforation or abscess w/o bleedingPerson al history of colonic polyps Aug-0 9 No Information Referring Provider: Nivia Bruno MD, [address] [place] [address], [address]. tel:[phone] [facility], [address] [address], [place], [id number], [place] tel:[phone] [facility] History of colon polypsDivertic ular disease of large intestineDvtrc li of lg int w/o perforation or abscess w/o bleedingDvrtcl os of lg int w/o perforation or abscess w/o bleedingPerson al history of colonic polyps - 5 No Information Referring Provider: Heladio Martins MD, [address] [place] [address], [address]. tel:[phone] [facility] [employer] [facility], [address] [address], [place], [id number], [place] tel:[phone] [facility] LUQ Pain 4 Tatiana Ray. [address] [place] [address], [id number], [place]. tel:[phone] [facility], [address] [address], [place], [id number], [place] tel:[phone] [facility] Hiatal HerniaPolyp-in chalo/rect/stom- unc BehLUQ PainGastric Polyp-benignGa stric Polyp-benignLU Q PainHiatal Hernia 4 Nelson Ferris. [address] [place] [address], [id number], [place]. tel:[phone] Referring Provider: Heladio Martins MD, [address] [place] [address], [address]. tel:[phone] [facility], [address] [address], [facility], [place], [id number], [place] tel:[phone] [facility] LUQ Pain 4 Tatiana Ray. [address] [place] [address], [id number], [place]. tel:[phone] Referring Provider: Heladio Martins MD, [address] [place] [address], [address]. tel:[phone] Offic/outpt E&m Estab Mod-hi 2 [facility], [address] [address], [facility], [id number], [place] tel:[phone] [facility] LUQ PainDiarrhea 4 Tatiana Ray. [address] [place] [address], [id number], [place]. tel:[phone] Referring Provider: Heladio Martins MD, [address] [place] [address], [address]. tel:[phone] [facility], [address] [address], [facility], [id number], [place] tel:[phone] [facility] Diverticulosis Of ColonHx Of Digest Disease NecDiverticulo sis Of ColonHx Of Digest Disease Nec 3 No Information Referring Provider: Heladio Martins MD, [address] [place] [address], [place], [address]. tel:[phone] [facility], [address] [address], [place], [place], [id number], [place] tel:[phone] [facility] Diverticulosis Of ColonDiverticu litis Of ColonDiverticu litis Of Colon 2 No Information Referring Provider: Heladio Martins MD, [address] [place] [address], [place], [address]. tel:[phone] [facility] CESAR, [address] [address], [place], [id number], [place] tel:[phone] [facility] Colon Cancer ScreeningPerso nal History Colon PolypsDivertic ulosis Of Colon 8 No Information Referring Provider: Daniel Griffin, [address] [place] [address], [place], [address]. tel:[phone] [facility], [address] [address], [place], [id number], [place] tel:[phone] [facility] Personal history colon polyps 6 No Information Offic Cons New/estab [facility], [address] [address], [place], [id number], [place] tel:[phone] [facility] Diverticulosis Of ColonPolyp-int es/rect/stom-u nc [...] Covered democrat ID Authoriza tion(s) Medicare NGS [id number] Blue Cross Medicare Supplement [id number] Social History Type Description Quantity Date Captured [...] 5 years ago, she was hospitalized at [facility] at which time there was evidence [...]
--- OUTSIDE RECORDS SUMMARY | 2024-02-04 17:23 | XMS_ITS | Continuity of Care Document ---
Author Organization [facility] Address [address] [place] [address] Phone Care Team Providers Care Lawn And Garden Technician Name Role Phone Sanchez Lay MD Unavailable Unavailable Advance Directives Directive Yes / No Effective Date File Name No Information Encounters Encounter Description Practice Location Reason(s) For Visit Diagnoses Date Provider Providers Copied on Encounter [facility], [address], [place], [address], [place] tel:[phone] [facility], No Information Rosanne Bradford. [facility] [address], [place], [address], [place]. tel:[phone] Family History Family Member Type Diagnosis Age [...]
[2024-02-04 17:43] LABS: Erythrocyte SedimentationRate* 8 mm/hr (2-20)
[2024-02-04 17:49] LABS: PCR FLU A Negative PCR FLU A (Negative); PCR FLU B Negative PCR FLU B (Negative); PCR RSV Negative PCR RSV (Negative); SARS PCR* Negative SARS-CoV-2 (Negative)
== END 2024-02-04 18:17 | disposition home or self-care (01) ==
PROVIDERS: Emergency Provider Emergency Medicine; PCP Family Medicine
DX: M79.10 Myalgia, unspecified site (principal)
CPT/HCPCS: 36415; 80048; 83605; 85025; 85651; 86140; 87631; 96374; 99283; 99284; J1885; J7030

== ENCOUNTER 2024-04-10 17:00 | Emergency (ER) | payer MEDICARE, BC, SELFPAY ==
[2024-04-10 17:24] VITALS: BP 136/77; PULSE 87; RESP 18; TEMP 36.8; O2SAT 97; BMI 27.4
--- NOTE | 2024-04-10 17:26 | ED_ITS ---
HPI - General Adult General Chief complaint: Unspecified Complaint, Adult Stated complaint: accidental ingestion of plant insectcide Time Seen by Provider: 04/10/24 17:17 History of Present Illness HPI narrative: Patient had house insecticide in clear water bottle and she accidently drank a medium sip. Poision control was contacted who advise patient will be fine though may have stomach irritation. Recommend drinking milk and water to ease this. 64-year-old woman presenting to the emergency department following a concern of an ingestion of household insecticide. He had it in what looks to be a labeled water bottle and accidentally took a sip. Presenting here for for evaluation and advice. No shortness of breath. Feeling discomfort in her throat. Also nauseated. We have contacted poison controlled on arrival. Reviewing substance noting there are no concerns beyond mild stomach irritation. Related Data Home Medications ?Medication ?Instructions ?Recorded ?Confirmed clobetasol 0.05 % topical ointment 1 applic topical .qod 11/21/21 02/06/24 liothyronine 5 mcg tablet 5 mcg PO .B.i.d. 11/21/21 02/06/24 lorazepam 0.5 mg tablet 0.5 mg PO Q12H PRN 12/08/21 02/06/24 melatonin 3 mg capsule 9 mg PO HS 12/08/21 02/06/24 trazodone 50 mg tablet 100 mg PO QHS PRN 01/17/23 02/06/24 buspirone 15 mg tablet 15 mg PO BID 03/25/23 02/06/24 cyclosporine 0.05 % eye drops in a drp ophthalmic (eye) 03/25/23 02/06/24 dropperette lidocaine HCl 2 % mucosal solution PO 03/25/23 02/06/24 (Lidocaine Viscous) tretinoin 0.025 % topical cream 1 applic topical QPM 03/25/23 02/06/24 valacyclovir 1 gram tablet 1,000 mg PO 3XD 03/25/23 02/06/24 varenicline 0.03 mg/spray nasal intranasal 03/25/23 02/06/24 spray (Tyrvaya) cyclobenzaprine 5 mg tablet 5 mg PO QPM PRN 09/17/23 02/06/24 vilazodone 20 mg tablet 20 mg PO DAILY 11/10/23 02/06/24 rosuvastatin 5 mg tablet 5 mg PO DAILY 02/04/24 02/06/24 Previous Rx's ?Medication ?Instructions ?Recorded Lactobacillus acidophilus 0.5 mg 1 tab PO TIDWM 90 days #90 tabs 12/10/21 (100 million cell) tablet hydromorphone 2 mg tablet 2 mg PO Q4H PRN 5 days #30 tabs 12/10/21 albuterol sulfate 90 mcg/actuation 2 puff inhalation Q4-6H PRN 03/05/23 aerosol inhaler shortness of breath or wheezing #8.5 grams triamcinolone acetonide 0.025 % 1 applic topical BID #15 grams 03/25/23 topical cream estradiol 10 mcg vaginal tablet 10 mcg vaginal 2XW #24 tabs 11/04/23 (Yuvafem) estradiol 1 mg tablet 0.5 mg (1/2 x 1 mg) PO QDAY #45 11/05/23 tabs ondansetron HCl 4 mg tablet 4 mg PO Q6H #10 tabs 11/11/23 fluconazole 150 mg tablet 150 mg PO Q3D 2 doses #2 tabs 02/06/24 Allergies Allergy/AdvReac Type Severity Reaction Status Date / Time auranofin Allergy Verified 01/09/24 11:25 cat dander Allergy Verified 01/09/24 11:25 Gadolinium-Containing Allergy Verified 01/09/24 11:25 Contrast Medi gluten Allergy Verified 01/09/24 11:25 gold keratinate Allergy Verified 01/09/24 11:25 gold sodium thiomalate Allergy Verified 01/09/24 11:25 ketamine Allergy Verified 02/06/24 16:42 lactose Allergy Verified 01/09/24 11:25 Opioids - Morphine Analogues Allergy Verified 01/09/24 11:25 goldshots Allergy Severe Anaphylaxis Uncoded 01/09/24 11:25 Review of Systems Status of ROS: Reports: 6 or more systems reviewed and unremarkable except as noted in History and below [facility] Medical History Herpes zoster ?B02.9 - Zoster without complications (ICD-10) Diverticulitis ?K57.92 - Diverticulitis of intestine, part unspecified, without perforation or abscess without bleeding (ICD-10) Closed T12 fracture ?S22.089A - Unspecified fracture of T11-T12 vertebra, initial encounter for closed fracture (ICD-10) History of Clostridioides difficile colitis ?Z86.19 - Personal history of other infectious and parasitic diseases (ICD- 10) History of hypothyroidism ?Z86.39 - Personal history of other endocrine, nutritional and metabolic disease (ICD-10) History of diverticulitis of colon (05/09/11) ?Z87.19 - Personal history of other diseases of the digestive system (ICD-10) History of Clostridioides difficile infection ?Z86.19 - Personal history of other infectious and parasitic diseases (ICD- 10) Abscess of sigmoid colon due to diverticulitis ?K57.20 - Diverticulitis of large intestine with perforation and abscess without bleeding (ICD-10) Osteoporosis ?M81.0 - Age-related osteoporosis without current pathological fracture (ICD- 10) Sigmoid diverticulitis ?K57.32 - Diverticulitis of large intestine without perforation or abscess without bleeding (ICD-10) History of femur fracture ?Z87.81 - Personal history of (healed) traumatic fracture (ICD-10) Insomnia ?G47.00 - Insomnia, unspecified (ICD-10) Anxiety ?F41.9 - Anxiety disorder, unspecified (ICD-10) Sarcoidosis ?D86.9 - Sarcoidosis, unspecified (ICD-10) Hypothyroidism ?E03.9 - Hypothyroidism, unspecified (ICD-10) Sensorineural hearing loss (SNHL) of both ears ?H90.3 - Sensorineural hearing loss, bilateral (ICD-10) Depression ?F32.A - Depression, unspecified (ICD-10) Chronic fatigue syndrome ?R53.82 - Chronic fatigue, unspecified (ICD-10) 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 - Unspecified juvenile rheumatoid arthritis of unspecified site (ICD- 10) Migraines ?G43.909 - Migraine, unspecified, not intractable, without status migrainosus (ICD-10) Diverticulitis of intestine with abscess ?K57.80 - Diverticulitis of intestine, part unspecified, with perforation and abscess without bleeding (ICD-10) Surgical History History of total knee replacement ?Z96.659 - Presence of unspecified artificial knee joint (ICD-10) S/P hammer toe correction ?Z98.890 - Other specified postprocedural states (ICD-10) ?Z87.39 - Personal history of other diseases of the musculoskeletal system and connective tissue (ICD-10) History of repair of rotator cuff ?Z98.890 - Other specified postprocedural states (ICD-10) History of tonsillectomy ?Z90.89 - Acquired absence of other organs (ICD-10) History of total hip arthroplasty ?Z96.649 - Presence of unspecified artificial hip joint (ICD-10) History of bilateral knee arthroplasty ?Z96.653 - Presence of artificial knee joint, bilateral (ICD-10) Family History Father High blood pressure Hyperlipidemia Mother High blood pressure Hyperlipidemia Sister Seizure disorder Social History Narrative: She lives alone in [place]. 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 She does not smoke. She drinks alcohol about once a month. She uses no recreational drugs. She does have a history of chemical dependency. Healthcare power of gas operator is her sister Denise. Code status is full. Are you following a special diet: Yes (no gluten, lactose intolerent) Highest level of school completed/degree received: Master's degree Smoking Status: Never smoker Do you use any of these nicotine containing products: None Second hand tobacco smoke exposure: No How often do you have a drink containing alcohol: monthly or less AUDIT-C Alcohol total score: 1 Non-prescribed substance use: denies use Caffeine: Yes (coffee 3x weekly) Are you now , , , , never or living with a partner: Social isolation score (0-1 are the most socially isolated patients): 0 Are you currently sexually active: No service: No Exam Narrative: Exam Narrative: Pleasant. NAD other than appears moderately anxious. Breathing easily. There is no stridor. Oropharynx is without inflammatory change or any lesions. Lungs are clear. Heart in regular rate and rhythm. Abdomen soft and nontender. Const: Documenting provider has reviewed patient's vital signs: yes Course Vital Signs Vital signs: Initial Vital Signs Temperature 98.3 F 04/10/24 17:24 Temperature Source Temporal Artery Scan 04/10/24 17:24 Pulse Rate 87 04/10/24 17:24 Respiratory Rate 18 04/10/24 17:24 Blood Pressure 136/77 04/10/24 17:24 Blood Pressure Mean 96 04/10/24 17:24 Pulse Oximetry 97 04/10/24 17:24 Oxygen Delivery Method Room Air 04/10/24 17:24 Vital Signs Temperature 98.3 F 04/10/24 17:24 Pulse Rate 87 04/10/24 17:24 Respiratory Rate 18 04/10/24 17:24 Blood Pressure 136/77 04/10/24 17:24 Pulse Oximetry 97 04/10/24 17:24 Oxygen Delivery Method Room Air 04/10/24 17:24 Temperature 98.3 F 04/10/24 17:24 Pulse Rate 83 04/10/24 17:48 Respiratory Rate 16 04/10/24 17:48 Blood Pressure 136/77 04/10/24 17:24 Pulse Oximetry 100 04/10/24 17:48 Oxygen Delivery Method Room Air 04/10/24 17:48 Medications Administered Medications: Discontinued Medications Generic Name Dose Route Start Last Admin Trade Name Freq PRN Reason Stop Dose Admin Lidocaine/Aluminum/Magnesium/Simeth 30 ml 04/10/24 17:34 04/10/24 17:43 Gi Cocktail (Visc Lido/Antacid) 30 Ml PO 04/10/24 17:35 30 ml ONCE ONE Administration Ondansetron HCl 4 mg 04/10/24 18:06 04/10/24 18:24 Ondansetron Odt 4 Mg Tab PO 04/10/24 18:07 4 mg ONCE ONE Administration Medical Decision Making MDM Narrative Medical decision making narrative: As noted have consulted with poison Control. Does appear to be of mild effect. Ingested minimal. Did offer Zofran and GI cocktail. Stable to improved during the time of monitoring in the emergency department See patient discharge plan for further discussion Medical Records Medical records reviewed: Yes I reviewed the patient's medical records Discharge Plan Discharge Clinical Impression: Ingestion of toxin Patient Disposition: Home, Self-Care Condition: Stable Additional Instructions: focus on smaller frequent fluid intake. Would probably be good to eat something. For further irritation a would consider taking more liquid antacid/anti-gas or some milk. I do not think you need to worry about this. Of course return for increasing sensation of throat tightness, any indication of difficulty breathing Prescriptions: No Action trazodone 50 mg tablet 100 mg PO QHS PRN Tyrvaya 0.03 mg/spray spray, metered, non-aerosol intranasal Patient Comments: [NO ORIGINAL SIG] cyclosporine 0.05 % dropperette ophthalmic (eye) lidocaine HCl [Lidocaine Viscous] 2 % solution PO tretinoin 0.025 % cream 1 applic topical QPM buspirone 15 mg tablet 15 mg PO BID valacyclovir 1 gram tablet 1,000 mg PO 3XD triamcinolone acetonide 0.025 % cream 1 applic topical BID Qty: 15 0RF Rx Instructions: Apply small amount to affected area cyclobenzaprine 5 mg tablet 5 mg PO QPM PRN vilazodone 20 mg tablet 20 mg PO DAILY fluconazole 150 mg tablet 150 mg PO Q3D Qty: 2 0RF Rx Instructions: may repeat second dose 72 hrs after first dose if symptoms persist albuterol sulfate 90 mcg/actuation HFA aerosol inhaler 2 puff inhalation Q4-6H PRN (Reason: shortness of breath or wheezing) Qty: 8.5 0RF estradiol [Yuvafem] 10 mcg tablet 10 mcg vaginal 2XW Qty: 24 3RF ondansetron HCl 4 mg tablet 4 mg PO Q6H Qty: 10 0RF rosuvastatin 5 mg tablet 5 mg PO DAILY liothyronine 5 mcg tablet 5 mcg PO .B.i.d. clobetasol 0.05 % ointment 1 applic TOPICAL .qod lorazepam 0.5 mg tablet 0.5 mg PO Q12H PRN melatonin 3 mg capsule 9 mg PO HS hydromorphone 2 mg Tablet 2 mg PO Q4H PRN5 Days Qty: 30 0RF Lactobacillus acidophilus 0.5 mg (100 million cell) Tablet 1 tab PO TIDWM 90 Days Qty: 90 0RF estradiol 1 mg tablet 0.5 mg PO QDAY Qty: 45 3RF Rx Instructions: Take 1/2 tab (0.5 mg) daily. Follow Up/Referrals: Nivia Bruno MD [Primary Care Provider] - Stand Alone Forms: [facility] Info Instructions
[2024-04-10] MEDS: GI COCKTAIL (VISC LIDO/ANTACID) 30 ML PO (17:43)
--- OUTSIDE RECORDS SUMMARY | 2024-04-10 17:43 | XMS_ITS | Clinical Summary ---
Author Organization [facility] Address [place], [place] [address] Care Team Providers Care After School Coordinator Name Role Phone Nivia Bruno MD Primary Care Provider Judie Carreno PharmD Unavailable [phone] Allergies Active Allergy Reactions Criticality Noted Date Comments Auranofin *Unknown,Other - Describe In Comment Field High 12/10/1999 PN: LW Reaction: gold shots-hives Other reaction(s): hives Cat Dander *Unknown [...] mouth every 4 hours if needed. 0 07/29/2019 Active LORazepam (ATIVAN) 0.5 mg tabIndications:KATY (generalized anxiety disorder) Take 1 Tablet (0.5 mg) by mouth 2 times daily if needed for Anxiety. 90 day supply provided, will not fill early. 180 Tablet 1 2023 Active Additional Information Patient taking differently:0.5 mg Oral BID PRN, Anxiety, 90 day supply provided, will not fill early.Pt stated tapering off of medication, Reported on 10/24/2023 valACYclovir (VALTREX) 1 gram tabletIndications:G enital herpes simplex, unspecified site Take 1 Tablet (1 g) by mouth three times daily. 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 Max acetaminophen dose: 4000mg in 24 hrs. 270 Tablet 3 05/29/2023 Active Additional Information Patient taking differently:650 mg Oral Q 8H,Max acetaminophen dose: 4000mg in 24 hrs. 1 in morning and 1 at night, Reported on 06/25/2023 naloxone (Narcan) 4 mg/actuation nasal sprayIndications:At risk for injury due to substance overdose Inhale 1 Kenton into affected nostril(s) each time if needed for Patient Diff To Arouse or Resp Rate < 8 / min. Additional doses may be given every 2 to 3 minutes until emergency medical assistance arrives. 2 Each 05/29/2023 Active estradioL (VAGIFEM) 10 mcg tab vaginal tabletIndications:V aginal candidiasis Insert 1 Tablet (10 mcg) into the vagina every Friday and . 05/29/2023 Active cyclobenzaprine (FLEXERIL) 5 mg tablet Take 5 mg by mouth at bedtime if needed for Muscle Spasm. 08/11/2023 Active clobetasol 0.05% (TEMOVATE 0.05% OINTMENT) 0.05 % ointmentIndications :Lichen sclerosus APPLY TOPICALLY TO AFFECTED AREA(S)TWO TIMES DAILY NEEDED TO LICHEN SCLEROSUS IN VAGINAL AREA. 60 g 08/25/2023 Active busPIRone (BUSPAR) 15 mg tabletIndications:G AD (generalized anxiety disorder) Take 1 Tablet (15 mg) by mouth two times daily. 180 Tablet 1 09/15/2023 Active liothyronine (CYTOMEL) 5 mcg tabletIndications:H ypothyroidism, unspecified type Take 1 tablet (5 mcg) by mouth two times daily. 180 Tablet 1 10/08/2023 Active progesterone micronized (PROMETRIUM) 100 mg capsuleIndications: Postmenopausal,Horm one replacement therapy Take 1 Capsule (100 mg) by mouth at bedtime. 90 Capsule 10/13/2023 Active triamcinolone 0.1% (KENALOG IN ORABASE) 0.1 % pasteIndications:So re of lip Apply small amount to the upper lip once a day before bed for the next few weeks. 5 g 10/30/2023 Active medication order composerIndications :Fibromyalgia Robb Labs [...] Apple Cider Vinegar - PRN NN Ultimate Hondo-3 - daily Body Bio Balance Oil (omega-3/omega-6 blend) - 2 capsules daily Body Bio PC - daily BodyBio Tudca - daily 11/10/2023 Active HYDROmorphone (DILAUDID) 2 mg tabletIndications:B mc trauma of right thigh, subsequent encounter Take 0.5 Tablets (1 mg) by mouth every 6 hours if needed for Pain. 12 Tablet 11/19/2023 Active lidocaine 5 % topical patchIndications:Kylie brar radiculopathy Apply on dry, clean, hairless skin. Apply 1 patch to painful area of skin for up to to 12 hours within 24 hour period. 30 Patch 1 11/19/2023 Active hydrocortisone 2.5 % creamIndications:He morrhoids, external Apply topically to affected area(s) two times daily. 30 g 01/15/2024 Active ketoconazole 2 % creamIndications:Va ginal irritation Apply topically to affected area(s) two times daily. 60 g 01/15/2024 Active nystatin 100,000 unit/gram creamIndications:Ye ast vaginitis Apply topically to affected area(s) two times daily. 30 g 01/16/2024 Active doxycycline 100 mg capsule Take 100 mg by mouth two times daily. 01/16/2024 Active estradioL (VAGIFEM) 10 mcg tab vaginal tablet As directed. 11/04/2023 Active estradioL (ESTRACE) 1 mg tablet 11/05/2023 Active SUMAtriptan (IMITREX) 25 mg tabletIndications:H x of migraines Take 1 Tablet (25 mg) by mouth 2 times daily if needed for Migraine (Repeat in 2 hours prn, maximum of 2 doses in 1 day.). 9 Tablet 2 01/22/2024 Active rosuvastatin (CRESTOR) 5 mg tabletIndications:C alcified atheromatous plaque Take 1 Tablet (5 mg) by mouth at bedtime. 90 Tablet 3 01/22/2024 Active aspirin (ECOTRIN) 81 mg enteric coated tabletIndications:C alcified atheromatous plaque Take 1 Tablet (81 mg) by mouth once daily with a meal. 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 90 Tablet 02/20/2024 Active traZODone (DESYREL) 50 mg tabletIndications:P rimary insomnia TAKE 1 TO 2 TABLETS (50 - 100 MG) BY MOUTH AT BEDTIME NEEDED FOR SLEEP. 180 Tablet 02/20/2024 Active Hospital, Clinic, or Other Facility Administered Medication Ordered Dose Route Frequency Start Date End Date Status zoledronic acid in mannitol & water (RECLAST) 5 mg/100 mL pgbk 100 mLIndications:Osteopenia, unspecified location 100 mL IV ONE TIME 03/26/2024 03/27/2024 Ende d Active Problems Problem Noted Date [...] (10/11/2016): Signed 04/23/16 Dr. 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 3 Dysthymic disorder 11/26/2007 6 Unspecified drug dependence, in remission 01/25/2022 Encounters Date Type Department Care Team Description 04/06/2024 1:00 PM FOREIGN COLLECTION CLERK Phone Office Visit [facility] [address] [facility] [phone] Keiko Downs [facility] Individual Therapy; Phone Visit 04/06/2024 Travel 03/30/2024 2:00 PM FOREIGN COLLECTION CLERK Phone Office Visit [facility] [address] [facility] [phone] Keiko Downs [facility] Individual Therapy; Phone Visit 03/30/2024 Travel 03/29/2024 Telephone [facility] [address] [place] [address] Nivia Bruno MD Infusion Therapy 03/26/2024 1:00 PM FOREIGN COLLECTION CLERK Procedure Only [facility] [address] [facility] [place] [address] Tyler Parson L Ac Acupuncture 03/26/2024 Travel 03/24/2024 2:00 PM FOREIGN COLLECTION CLERK Pharmacist Medication Management [facility] [address] [facility] [place] [address] Judie Carreno PharmD Pharmacist Medication Management ([facility] follow-up - [facility] patient - pain/depression/ost eopenia treatment) 03/23/2024 1:00 PM FOREIGN COLLECTION CLERK Phone Office Visit [facility] [address] [facility] [phone] Keiko Downs [facility] Individual Therapy; Phone Visit 03/23/2024 Travel 03/19/2024 10:30 AM FOREIGN COLLECTION CLERK Procedure Only [facility] [address] [facility] [place] [address] Tyler Parson L Ac Acupuncture 03/19/[address] [place] [address] Walter Bourne MD Appointment Request 03/19/2024 Travel 03/16/2024 2:00 PM FOREIGN COLLECTION CLERK Phone Office Visit [facility] [address] [place] [phone] Keiko Downs [facility] Individual Therapy; Phone Visit 03/16/2024 Travel 03/12/2024 Telephone [facility] [address] [place] [address] Nivia Bruno MD Question for provider 03/09/2024 1:00 PM CDT Phone Office Visit [facility] [address] [place] [address] Keiko Downs [employer] Individual Therapy; Phone Visit 03/09/2024 Travel 03/02/2024 1:00 PM CDT Phone Office Visit [facility] [address] [place] [address] Keiko Downs [facility] Individual Therapy; [facility]/02/[facility]24 Travel 02/27/2024 1:00 PM CDT Procedure Only [facility] [address] [place] [address] Tyler Parson L Ac Acupuncture 02/27/2024 Travel 02/25/2024 2:00 PM CDT Pharmacist Medication Management [facility] [address] [place] [address] Judie Carreno, Zoraida Pharmacist Medication Management ([facility] follow-up - [facility] patient - pain/depression treatment) 02/25/2024 11:00 AM CDT Phone Office Visit [facility] [address] [place] [address] Keiko Downs [employer] Individual Therapy; Phone Visit 02/25/2024 Travel 02/20/2024 Refill [facility] [address] [place] [address] Freda Serrano MD Refill Request (Vilazodone, Trazodone) 02/17/2024 1:00 PM CDT Phone Office Visit [facility] [address] [place] [address] Keiko Downs [facility] Individual Therapy; Phone Visit 02/17/2024 Travel 02/13/2024 1:00 PM CDT Procedure Only [facility] [address] [facility] [place] [address] Tyler Parson L Ac Acupuncture 02/13/2024 Travel 02/11/2024 Telephone [facility] [address] [place] [address] Facundo Mijares MD RETURN CALL 02/10/2024 1:00 PM CDT Phone Office Visit [facility] [address] [place] [phone] Keiko Downs [facility] Individual Therapy; Phone Visit 02/10/2024 Travel 02/06/2024 11:00 AM CDT Procedure Only [facility] [address] [place] [address] Tyler Parson L Ac Acupuncture 02/06/2024 Telephone [facility] [address] [place] [address] Nivia Bruno MD Lab (ORDERS MAYBE NEEDED) 02/06/2024 Travel 01/30/2024 1:00 PM CDT Procedure Only [facility] [place] [address] Tyler Parson L Ac Acupuncture 01/30/2024 Travel 01/27/2024 1:00 PM CDT Phone Office Visit [facility] [address] [place] [address] Keiko Downs [facility] Individual Therapy; Phone Visit 01/27/2024 Travel 01/25/2024 Orders Only [facility] [place] [address] Jyoti Sellers PA <No scans attached> 01/23/2024 1:00 PM CDT Procedure Only [facility] [address] [place] [address] Tyler Parson L Ac Acupuncture 01/22/2024 12:45 PM CDT Orders Only [address] [address] Lab, [place] Outside Order (Ordered by Amrita Jewell) 01/22/2024 10:25 AM CDT Office Visit [address] [address] Nivia Bruno MD Follow Up 01/22/2024 Orders Only [address] [address] Nivia Bruno MD <No scans attached> 01/22/2024 Travel 01/21/2024 1:30 PM CDT Pharmacist Medication Management [address] [address] Judie Carreno PharmD Pharmacist Medication Management ([facility] follow-up - [facility] patient - pain/depression management) 01/20/2024 1:45 PM CDT Phone Office Visit [address] [phone] Keiko Downs, [facility] Individual Therapy; Phone Visit 01/20/[address] [address] Judie Carreno PharmD Questions (doxycycline) 01/20/2024 Travel 01/16/2024 1:00 PM CDT Procedure Only [address] [address] Tyler Parson L Ac Acupuncture 01/15/2024 11:05 AM CDT Office Visit [address] [address] Kourtney Cherry PA Vaginal Problem 01/15/[address] [address] Kourtney Cherry PA Results 01/15/2024 Travel 01/13/2024 1:45 PM CDT Phone Office Visit [address] [facility] [phone] Keiko Downs, [facility] Individual Therapy; Phone Visit 01/13/2024 Travel 01/13/2024 Lab Requisition [facility] [phone] Quita Vance PA-C 01/09/2024 Orders Only [facility] Scanner 1 scan: (1-Ord) [place], ENDOMETRIAL BIOPSY, 01/09/2024 from Last 3 Months Immunizations Name Administration [...] 2 12/12/2023 Social Connections Answer Date Recorded Do you often feel lonely or isolated from those around you? 4 06/04/2023 Financial Resource Strain Answer Date R ecorded Difficulty of Paying Living Expenses 3 01/27/2023 Difficulty of Paying Living Expenses Not on file 01/27/2023 Food Insecurity Answer Date Recorded Do you worry your food will run out before you are able to buy more? 2 06/04/2023 Transportation Needs Answer Date Record ed Does lack of transportation keep you from medica l appointments? 1 06/04/2023 Does lack of transportation keep you from work, meetings or getting things that you need? 1 06/04/2023 Housing Stability Answer Date Recorded What is your housing situation today? 1 06/04/2023 Sex and Gender Information Value Date Recorded [...] 86 01/22/2024 10:51 AM CDT Temperature 36.9 C (98.4 F) 01/15/2024 11:11 AM CDT Respiratory Rate 16 04/01/2022 3:21 PM FOREIGN COLLECTION CLERK Oxygen Saturation 98% 01/22/2024 10:51 AM CDT Inhaled Oxygen Concentration - - Weight 74.1 kg (163 lb 6.4 oz) 01/22/2024 10:51 AM CDT Height 174 cm (5' 8.5) 04/14/2023 2:10 PM FOREIGN COLLECTION CLERK Body Mass Index 24.48 04/14/2023 2:10 PM FOREIGN COLLECTION CLERK Plan of Treatment Upcoming Encounters Date Type Department Care Team (Late st Contact Info) Description 04/13/2024 1:00 PM FOREIGN COLLECTION CLERK Phone Office Visit [facility] [address] [place] [phone] Keiko Downs LICSW [address] [place] [address] 04/15/2024 2:00 PM FOREIGN COLLECTION CLERK Procedure Only [facility] [place] [address] Tyler Parson L Ac [address] [place] [address] 04/19/2024 2:00 PM FOREIGN COLLECTION CLERK Office Visit [facility] [place] [address] Jyoti Sellers PA [address] [place] [address] 04/20/2024 1:00 PM FOREIGN COLLECTION CLERK Phone Office Visit [facility] [address] [facility] [place] [phone] Keiko Downs [employer] [address] [place] [address] 04/28/2024 11:00 AM FOREIGN COLLECTION CLERK Nurse/Clinic Staff Only [address] [address] 04/30/2024 1:00 PM FOREIGN COLLECTION CLERK Procedure Only [address] [address] Tyler Parson L Ac [address] [place] [address] 05/10/2024 2:15 PM FOREIGN COLLECTION CLERK Phone Office Visit [facility] [address] [place] [address] Freda Serrano MD [address] [place] [address] 06/04/2024 11:30 AM FOREIGN COLLECTION CLERK Office Visit [facility] [address] [place] [address] [place] [address] [place] [address] [place] [address] Health Maintenance Due Date Last Done Comments COVID-19 vaccine series ( season) 2024 06/11/2023, 08/21/2021, 02/21/2021, Additional [...] Diagnosis Comments ACUPUNCTURE PLAN OF CARE Routine 03/26/2024 2:27 PM FOREIGN COLLECTION CLERK Other low back pain ACUPUNCTURE PLAN OF CARE Routine 03/19/2024 12:40 PM FOREIGN COLLECTION CLERK Other low back pain ACUPUNCTURE PLAN OF CARE Routine 02/27/2024 1:11 PM CDT Other low back pain ACUPUNCTURE PLAN OF CARE Routine 02/13/2024 1:06 PM CDT Other low back pain ACUPUNCTURE PLAN OF CARE Routine 02/06/2024 12:40 PM CDT Other low back pain ACUPUNCTURE PLAN OF CARE Routine 01/30/2024 1:07 [...] EXAM Routine 01/09/2024 12:0 0 PM CDT SCAN-OPERATIVE/PROCED URE REPORT 01/09/2024 12:00 AM CDT HPV HIGH RISK Routine 11/04/2023 3:50 PM CDT XR MAMMO EVA BILAT SCREEN Routine 08/01/2023 3:29 PM CDT Visit for screening mammogram LIPID PANEL W REFLEX MEASURED LDL Routine 07/08/2023 12:07 PM FOREIGN COLLECTION CLERK Hyperlipidemia, unspecified hyperlipidemia type SCAN-COLONOSCOPY 01/28/2022 1:00 PM CDT ANTI HIV 1/2 Routine 06/01/2018 4:02 PM FOREIGN COLLECTION CLERK Exposure to STD ANTI HCV Routine 09/30/2017 5:38 PM CDT STD exposure from Last 3 Months or Most Recently Relevant to Health Maintenance Results * SEDIMENTATION RATE (01/22/2024 12:26 PM CDT) SEDIMENTATION RATE 6 <30 mm/hr 2023 12:37 AM CDT [facility] Blood BLOOD SPECIMEN / Unknown Venipuncture / Unknown 01/22/2024 12:26 PM CDT 01/22/2024 12:27 PM CDT Nivia Bruno MD HEMATOLOGY [facility] [address] [place] [address], * CBC WITH AUTO DIFFERENTIAL (01/22/2024 12:26 PM CDT) [facility] WHITE BLOOD COUNT 5.0 4.5 - 11.0 thou/cu mm 01/22/2024 12:31 PM CDT [facility] RED BLOOD COUNT 4.73 4.00 - 5.20 mil/cu mm 01/22/2024 12:31 PM CDT [facility] HEMOGLOBIN 14.9 12.0 - 16.0 g/dL 01/22/2024 12:31 PM CDT [facility] HEMATOCRIT 44.0 33.0 - 51.0 % 01/22/2024 12:31 PM CDT [facility] MCV 93 80 - 100 fL 01/22/2024 12:31 PM CDT [facility] MCH 31.5 26.0 - 34.0 pg 01/22/2024 12:31 PM CDT [facility] MCHC 33.9 32.0 - 36.0 g/dL 01/22/2024 12:31 PM CDT [facility] RDW 12.3 11.5 - 15.5 % 01/22/2024 12:31 PM CDT [facility] PLATELET COUNT 260 140 - 440 thou/cu mm 01/22/2024 12:31 PM CDT [facility] MPV 9.4 6.5 - 11.0 fL 01/22/2024 12:31 PM CDT [facility] % NEUT 66.8 % 01/22/2024 12:31 PM CDT [facility] % LYMPH 24.2 % 01/22/2024 12:31 PM CDT [facility] % MONO 7.4 % 01/22/2024 12:31 PM CDT [facility] % EOS 1.2 % 01/22/2024 12:31 PM CDT [facility] % BASO 0.4 % 01/22/2024 12:31 PM CDT [facility] ABSOLUTE NEUTROPHILS 3.3 1.7 - 7.0 thou/cu mm 01/22/2024 12:31 PM CDT [facility] ABSOLUTE LYMPHOCYTES 1.2 0.9 - 2.9 thou/cu mm 01/22/2024 12:31 PM CDT [facility] ABSOLUTE MONOCYTES 0.4 <0.9 thou/cu mm 01/22/2024 12:31 PM CDT [facility] ABSOLUTE EOSINOPHILS 0.1 <0.5 thou/cu mm 01/22/2024 12:31 PM CDT [facility] ABSOLUTE BASOPHILS 0.0 <0.3 thou/cu mm 01/22/2024 12:31 PM CDT [facility] Blood BLOOD SPECIMEN / Unknown Venipuncture / Unknown 01/22/2024 12:26 PM CDT 01/22/2024 12:27 PM CDT Narrative [facility] - 01/22/2024 12:31 PM CDT This testing [...] ordering provider, Booker Jewell at fax number [phone], for that provider to inform and arrange appropriate follow up with the patient. CARMEN LauraT (ASCP).................... 01/22/2024 12:24 PM Nivia Bruno MD HEMATOLOGY [facility] [address] [place] [address], * (ABNORMAL) CREATININE (01/22/2024 12:26 PM CDT) eGFR 77(L) >90 mL/min/1.7 3m2 01/23/2024 4:00 AM CDT [facility] Comment:As of 2021, eG FR is calculated by the CKD-EPI creatinine equation without race adjustment. eGFR can be influenced by muscle mass, exercise, and diet. The reported eGFR is an estimation only and is only applicable if the renal function is stable. CREATININE 0.85 0.50 - 0.90 mg/dL 01/23/2024 4:00 AM CDT [facility] Blood BLOOD SPECIMEN / Unknown Venipuncture / Unknown 01/22/2024 12:26 PM CDT 01/22/2024 12:27 PM CDT Nivia Bruno MD CHEMISTRY Performing Organization Address [facility]/ZIP Co de Phone Number [facility] [address] [place] [address], * C-REACTIVE PROTEIN (01/22/2024 12:26 PM CDT) C-REACTIVE PROTEIN <0.3 <0.5 mg/dL 01/23/2024 4:01 AM CDT [facility] Blood BLOOD SPECIMEN / Unknown Venipuncture / Unknown 01/22/2024 12:26 PM CDT 01/22/2024 12:27 PM CDT Nivia Bruno MD CHEMISTRY Performing Organization Address [facility] Co de Phone Number [facility] [address] [place] [address], * UA W/ SEDIMENT EXAM REFLEXED PER CRITERIA (01/15/2024 11:30 AM CDT) COLOR Yellow Yellow Color 01/15/2024 12:03 PM CDT [facility] CLARITY Clear Clear Clarity 01/15/2024 12:03 PM CDT [facility] SPECIFIC GRAVITY,URINE 1.020 1.010, 1.015, 1.020, 1.025 01/15/2024 12:03 PM CDT [facility] PH,URINE 6.0 6.0, 7.0, 8.0, 5.5, 6.5, 7.5, 8.5 01/15/2024 12:03 PM CDT [facility] UROBILINOGEN, QUALITATIVE Normal Normal EU/dl 01/15/2024 12:03 PM CDT [facility] PROTEIN, URINE Negative Negative mg/dL 01/15/2024 12:03 PM CDT [facility] GLUCOSE, URINE Negative Negative mg/dL 01/15/2024 12:03 PM CDT [facility] KETONES,URINE Negative Negative mg/dL 01/15/2024 12:03 PM CDT [facility] BILIRUBIN,URI NE Negative Negative 01/15/2024 12:03 PM CDT [facility] OCCULT BLOOD,URINE Negative Negative 01/15/2024 12:03 PM CDT [facility] NITRITE Negative Negative 01/15/2024 12:03 PM CDT [facility] LEUKOCYTE ESTERASE Negative Negative 01/15/2024 12:03 PM CDT [facility] Urine URINE SPECIMEN / Unknown Non-Blood / Unknown 01/15/2024 11:30 AM CDT 01/15/2024 12:00 PM CDT Kourtney GUERRERO URINE Performing Organization Address City/[facility]/ZIP [place] [address], * (ABNORMAL) TRICHOMONAS, CARMELO, AND BACTERIAL VAGINOSIS BY JUAN (01/15/2024 11:25 AM CDT) CARMELO SPECIES Positive(A) Negative 01/15/20 9:05 PM CDT [facility] CARMELO GLABRATA Negative Negative 01/15/2024 9:05 PM CDT [facility] TRICHOMONAS VVA Negative Negative 9:05 PM CDT [facility] BACTERIAL VAGINOSIS Negative Negative 01/15/2024 9:05 PM CDT [facility] Other VAGINAL SWAB / Unknown Non-Blood / Unknown 01/15/2024 11:25 AM CDT 01/15/2024 11:50 AM CDT Kourtney GUERRERO MICROBIOLOGY [facility] [address] [place] [address], [place] * LAB TRACKING EVENT (01/09/2024 12:00 PM CDT) Other (Other) Client Collect / Unknown 01/09/2024 12:00 PM CDT 01/13/2024 3:27 PM CDT Quita Vance PA-C LAB BILL ONLY [facility] [address] [place] [address], [place] * PATH TISSUE EXAM (01/09/2024 12:00 PM CDT) Case Report Pathology Report Case: [id number] Authorizing Provider: Quita Vance PA-C Collected: 01/09/2024 1200 Ordering Location: [facility] Received: 01/13/2024 1650 Pathologist: Nelli Aj MD Specimen: Endometrial Biopsy 01/15/2024 10:18 AM CDT [facility] Final Diagnosis A) ENDOMETRIUM, BIOPSY: 1. Scant fragments of proliferative endometrium with chronic endometritis and focal breakdown 2. Negative for hyperplasia, atypia, and malignancy 3. See comment 01/15/2024 10:18 AM CDT [facility] [employer] ENTRAL LABORATORY Comment Chronic endometritis in a [...] listed as menorrhagia in a 63-year-old patient. Please correlate with menopausal status and any history of hormone replacement therapy. In a postmenopausal patient not taking estrogen replacement therapy, the presence of proliferative endometrium could indicate a hyperestrogenic state (such as due to peripheral estrogen production in obesity, rare ovarian conditions/neoplas ms, other causes). 01/15/2024 10:18 AM CDT [facility] Clinical Information Menorrhagia 01/15/2024 10:18 AM CDT [facility] Gross Description A) Received in formalin, labeled with the patient's name and date of , is a 0.2 x 0.7 x 0.2 cm aggregate of pink-quigley mucosa admixed with clotted blood and mucous. The specimen is entirely submitted in 1 cassette. TLF 01/13/2024 01/15/2024 10:18 AM CDT [facility] Microscopic Description The final diagnosis is based on microscopic examination of appropriate sections of all specimens. 01/15/2024 10:18 AM CDT [facility] Additional Information Interpreted at [facility] - [address] [facility] [address] [address] 01/15/2024 10:18 AM CDT [facility] Other (Endometrial Biopsy) 01/09/2024 12:00 PM CDT 01/13/2024 4:56 PM CDT Quita Vance PA-C PATHOLOGY/CYTOLOGY [facility] [address] [place] [address], * SCAN-OPERATIVE/PROCEDURE REPORT (01/09/2024 12:00 AM CDT) Scanner OTHER * HPV HIGH RISK (11/04/2023 3:50 PM CDT) TYPE 16 Negative Negative 11/07/2023 4:00 PM CDT [facility] TYPE 18 Negative Negative 11/07/2023 4:00 PM CDT [facility] OTHER HIGH RISK TYPES Negative Negative 11/07/2023 4:00 PM CDT [facility] Other (Cervical) 11/04/2023 3:50 PM CDT 11/06/2023 9:26 AM CDT Narrative [facility] - 11/07/2023 4:00 PM CDT HPV types 16, 18, 31, 33, 35, 39, 45, 51, 52, 56, 58, 59, 66 and 68 DNA were undetectable or below the pre-set threshold. Methodology: Jacek Karen 4800 HPV Test Corine Guillaume MD MICROBIOLOGY [facility] [address] [place] [address], * XR MAMMO EVA BILAT SCREEN (08/01/2023 3:29 PM CDT) Anatomical Region Laterality Modality BREASTS, Breast Left, Breast Right Bilateral Mammography Impressions 08/04/2023 12:37 PM CDT There is no radiographic evidence for malignancy. Recommend annual mammograms. MAMMOGRAM ASSESSMENT: ACR 1 Negative PATIENTS: You will also receive a letter with your examination results in an easy to read format. If you have questions about your results, please [...] care provider. XR MAMMO EVA BILAT SCREEN [[id number]] CLINICAL HISTORY: This is an asymptomatic 63 y.o. patient. INDICATION FOR EXAM: Mammogram Screening. TECHNIQUE: CC & MLO views were obtained. This study was evaluated with the assistance of Computer-Aided Detection. Breast Tomosynthesis was used in interpretation. COMPARISON FILM: Yes 05/13/22 [facility]10[facility]21 [facility] FINDINGS: The breasts have scattered areas of fibroglandular density. There are no dominant masses, suspicious micro calcifications or areas of architectural distortion. Nivia Bruno MD MAMMO * (ABNORMAL) LIPID PANEL W REFLEX MEASURED LDL (07/08/2023 12:07 PM FOREIGN COLLECTION CLERK) CHOLESTEROL,TOTAL 285(H) 100 - 199 mg/dL 07/08/2023 9:55 PM FOREIGN COLLECTION CLERK [facility] Comment: Cholesterol, Total Reference Ranges Desirable <200 mg/dL Borderline 200-239 mg/dL High >=240 mg/dL TRIGLYCERIDES 97 <150 mg/dL 07/08/2023 9:55 PM FOREIGN COLLECTION CLERK [facility] HDL CHOLESTEROL 76 >40 mg/dL 9:55 PM FOREIGN COLLECTION CLERK [facility] NON-HDL CHOLESTEROL 209(H) <145 mg/dl 07/08/2023 9:55 PM FOREIGN COLLECTION CLERK [facility] CHOL/HDL RATIO 3.75 <4.50 07/08/2023 9:55 PM FOREIGN COLLECTION CLERK [facility] LDL CHOLESTEROL 190(H) <=130 mg/dL 07/08/2023 9:55 PM FOREIGN COLLECTION CLERK [facility] VLDL CHOLESTEROL 19 <=30 mg/dL 07/08/2023 9:55 PM [facility] PROVIDER ORDERED STATUS RANDOM 07/08/2023 9:55 PM [facility] Blood BLOOD SPECIMEN / Unknown Venipuncture / Unknown 07/08/2023 12:07 PM FOREIGN COLLECTION CLERK 07/08/2023 12:07 PM FOREIGN COLLECTION CLERK Nivia Bruno MD CHEMISTRY [facility] [address] [place] [address], * SCAN-COLONOSCOPY (01/28/2022 1:00 PM CDT) Narrative Procedure Note Edison Ceron MD - 01/28/2022 12:02 PM CDT [facility] [address], [address], [place] [address] Patient Name: Juliette Brown Gender: Female Exam Date: 01/28/2022 Visit Number: [id number] Age: 61 Years 9 Months Date of : 1960 Attending MD: Edison Ceron MD Medical Record#: [id number] ----- Procedure: Colonoscopy Indications: Recent history of [...] Race: White Ethnicity: Not or Preferred Language: [place] Islander cc: Nivia Bruno MD [facility] [phone] Edison Ceron MD OTHER * ANTI HIV 1/2 (06/01/2018 4:02 PM FOREIGN COLLECTION CLERK) HIV-1/HIV-2 ANTIBODY Non-Reacti ve Non-Reacti ve 06/01/2018 8:08 PM FOREIGN COLLECTION CLERK [facility] Comment:HIV-1 p24 and HIV-1/ HIV-2 Ab not detected. Blood BLOOD SPECIMEN / Unknown Venipuncture / Unknown 06/01/2018 4:02 PM FOREIGN COLLECTION CLERK 06/01/2018 4:02 PM FOREIGN COLLECTION CLERK Nivia Bruno MD [email or web address] [address] [place] [address], * ANTI HCV (09/30/2017 5:38 PM CDT) HEPATITIS C ANTIBODY Non-React mathieu Non-React mathieu 10/01/2017 2:41 PM CDT [email or web address] Comment:Antibodies to HCV no t detected; does not exclude the possibility of exposure to HCV. Blood BLOOD SPECIMEN / Unknown Venipuncture / Unknown 09/30/2017 5:38 PM CDT 09/30/2017 5:38 PM CDT Kourtney GUERRERO [facility] [address] [place] [address], from Last 3 Months or Most Recently Relevant to Health Maintenance Advance Directives Documents on File Type Date Recorded Patient Mica Spreader Expl anation Healthcare Directive 04/01/2022 022 * [...] 6:43 PM 06/10/2011 6:41 PM Care Teams After School Coordinator Relationship Specialty Start Date End Date Nivia Bruno MD [address] [place] [address] PCP - General Family Practice 07/01/19 Judie Carreno PharmD [address] [place] [address] Pharmacist Medication Management Pharmacology 05/28/23 05/28/25
--- OUTSIDE RECORDS SUMMARY | 2024-04-10 17:43 | XMS_ITS | Referral Summary ---
Author Organization [facility] Address [address] [place] [address] Care Team Providers Care Purse Framer Name Role Phone Nivia Bruno MD Primary Care Provider [phone] Allergies Active Allergy Reactions Criticality Noted Date Comments Gold Anaphylaxis High 04/15/2016 As treatment for RA Medications * This document contains information received from the source organization and may not represent a complete record from that organization. cholecalciferol (VITAMIN D-[address]) 1000 UNITS TABS Take 1,000 Units by mouth 06/10/2011 Active lidocaine (LIDODERM) 5 % Patch 1 patch 10/17/2015 Active melatonin 3 MG tablet Take 3 mg by mouth Active Multiple Vitamin (MULTI-VITAMINS ) TABS Take 1 tablet by mouth 07/22/2014 Active [place]-3 1000 MG CAPS 04/02/2016 Active Saline (SODIUM CHLORIDE) 0.65 % SOLN [place] 1 spray in nostril 01/28/2015 Active traZODone (DESYREL) 50 MG tablet Take 50 mg by mouth 04/02/2016 Active clobetasol (TEMOVATE) 0.05 % external ointmentIndicat ions:Lichen sclerosus Apply a thin layer to affected area twice a week. 60 g 1 02/15/2021 Active estradiol (ESTRACE VAGINAL) 0.1 MG/GM vaginal creamIndication s:Atrophic vaginitis 1 gm pv nightly at bedtime for 2 weeks, then twice a week at bedtime for maintenance. 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 Overview (09/07/2016): Overview: LW Onset: Social History Tobacco Use Types Packs/Day Years Used Date Smoking Tobacco: Never Smokeless Tobacco: Never Tobacco Cessation:Counseling Given: No Alcohol Use Standard Drinks/Week Comments No 0 (1 standard drink = 0.6 oz pur e alcohol) PHQ-2 Answer Date Recorded PHQ-2 Score 2 06/13/2021 Adolescent Education Answer Date Record ed Getting School Help Needed Not on file 02/02 Comments No Sex and Gender Information Value Date Recorded Sex Assigned at Not on file Legal Sex Female 3:16 AM 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 Gender Identity Not on file Sexual Orientation Not on file Last Filed Vital Signs Vital Sign Reading Time Taken Comments Blood Pressure 122/64 02/15/2021 1:17 PM CDT Pulse 69 09/07/2016 3:44 PM CDT Temperature 36.8 C (98.2 F) 02/15/2021 1:17 PM CDT Respiratory Rate 16 09/07/2016 3:44 PM CDT [...] BASIC METABOLIC PANEL Routine 06/23/2017 6:00 AM 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 TSH Routine 06/23/2017 6:00 AM 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 from Last 3 Months or Most Recently Relevant to Health Maintenance Results * TSH (06/23/2017 6:00 AM 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) TSH 2.31 0.30 - 5.00 uIU/mL 06/23/2017 10:31 AM 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 [facility] Blood specimen (specimen) STRUCTURE OF LEFT UPPER LIMB / Unknown Venipuncture / Unknown 06/23/2017 6:00 AM 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 06/23/2017 9:50 AM 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 us Rosmery Simpson MD LAB - BLOOD ORDERABLES Fi nal Result [facility] [address] [place] [address], [facility] [address] [place] [address] * Basic metabolic panel (06/23/2017 6:00 AM 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) Sodium 139 136 - 145 mmol/L 06/23/2017 10:13 AM 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 [facility] Potassium 4.2 3.5 - 5.0 mmol/L 06/23/2017 10:13 AM [facility] Chloride 103 98 - 107 mmol/L 06/23/2017 10:13 AM [facility] Carbon Dioxide (CO2) 29 22 - 31 mmol/L 06/23/2017 10:13 AM [facility] Anion Gap 7 5 - 18 mmol/L 06/23/2017 10:13 AM [facility] Glucose 105 70 - 125 mg/dL 06/23/2017 10:13 AM [facility] Calcium 9.4 8.5 - 10.5 mg/dL 06/23/2017 10:13 AM [facility] Urea Nitrogen 16 8 - 22 mg/dL 06/23/2017 10:13 AM [facility] Creatinine 0.69 0.60 - 1.10 mg/dL 06/23/2017 10:13 AM [facility] GFR Estimate If Black >60 >60 mL/min/1.7 3m2 06/23/2017 10:13 AM [facility] GFR Estimate >60 >60 mL/min/1.7 3m2 06/23/2017 10:13 AM [facility] Blood specimen (specimen) STRUCTURE OF LEFT UPPER LIMB / Unknown Venipuncture / Unknown 06/23/2017 6:00 AM [facility] 06/23/2017 9:50 AM [facility] Narrative [facility] - 06/23/2017 10:13 AM [facility] Fasting Glucose reference range is 70-99 mg/dL per [place] Diabetes Association (ADA) guidelines. Rosmery Simpson MD LAB - BLOOD ORDERABLES Fi nal Result [facility] [address] [place] [address], [facility] [address] [place] [address] from Last 3 Months or Most Recently Relevant to [place] [address] [place] [address] [place] Advance Directives For more information, please contact: [phone] * Full Code (Latest Code Status on File) Date Activated Date Inactivated Comments 04/16/2016 1:58 AM 04/22/2016 3:55 PM Care Teams Purse Framer Relationship Specialty Start Date End Date Nivia Bruno MD PCP - General 03/22/21
--- OUTSIDE RECORDS SUMMARY | 2024-04-10 17:43 | XMS_ITS | Clinical Summary ---
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 Gender Identity Not on file Sexual Orientation [...] 12/11/2021 06/13/2021, 12/10/2020, 03/21/2021, Additional history exists MAMMO SCREENING 05/10/2023 [...] BASIC METABOLIC PANEL Routine 06/23/2017 6:00 AM SOFTWARE ARCHITECT TSH Routine 06/23/2017 6:00 AM SOFTWARE ARCHITECT from Last 3 Months or Most Recently Relevant to Health Maintenance Results * TSH (06/23/2017 6:00 AM SOFTWARE ARCHITECT) TSH 2.31 0.30 - 5.00 uIU/mL 06/23/2017 10:31 AM SOFTWARE ARCHITECT [facility] Blood specimen (specimen) STRUCTURE OF LEFT UPPER LIMB / Unknown Venipuncture / Unknown 06/23/2017 6:00 AM SOFTWARE ARCHITECT 06/23/2017 9:50 AM SOFTWARE ARCHITECT us Rosmery Simpson MD LAB - BLOOD ORDERABLES Fi nal Result [facility] [address] [place] [address], [facility] [address] [place] [address] * Basic metabolic panel (06/23/2017 6:00 AM SOFTWARE ARCHITECT) Sodium 139 136 - 145 mmol/L 06/23/2017 10:13 AM SOFTWARE ARCHITECT [facility] Potassium 4.2 3.5 - 5.0 mmol/L 06/23/2017 10:13 AM [facility] Chloride 103 98 - 107 mmol/L 06/23/2017 10:13 AM [facility] Carbon Dioxide (CO2) 29 22 - 31 mmol/L 06/23/2017 10:13 AM [facility] Anion Gap 7 5 - 18 mmol/L 06/23/2017 10:13 AM [facility] Glucose 105 70 - 125 mg/dL 06/23/2017 10:13 AM [facility] Calcium 9.4 8.5 - 10.5 mg/dL 06/23/2017 10:13 AM [facility] Urea Nitrogen 16 8 - 22 mg/dL 06/23/2017 10:13 AM [facility] Creatinine 0.69 0.60 - 1.10 mg/dL 06/23/2017 10:13 AM [facility] GFR Estimate If Black >60 >60 mL/min/1.7 3m2 06/23/2017 10:13 AM [facility] GFR Estimate >60 >60 mL/min/1.7 3m2 06/23/2017 10:13 AM [facility] Blood specimen (specimen) STRUCTURE OF LEFT UPPER LIMB / Unknown Venipuncture / Unknown 06/23/2017 6:00 AM SOFTWARE ARCHITECT 06/23/2017 9:50 AM SOFTWARE ARCHITECT Narrative [facility] - 06/23/2017 10:[address] [facility] Fasting Glucose reference range is 70-99 mg/dL per [place] Diabetes Association (ADA) guidelines. Rosmery Simpson MD LAB - BLOOD ORDERABLES Fi nal Result [facility] [address] [place] [address], [facility] [address] [place] [address] from Last 3 Months or Most Recently Relevant to [place] [address] [place] [address] [place] Advance Directives For more information, please contact: [phone] * Full Code (Latest Code Status on File) Date Activated Date Inactivated Comments 04/16/2016 1:58 AM 04/22/2016 3:55 PM Care Teams Clinical Program Manager Relationship Specialty Start Date End Date Nivia Bruno MD PCP - General 03/22/21
--- OUTSIDE RECORDS SUMMARY | 2024-04-10 17:44 | XMS_ITS | Encounter Summary ---
Author Organization [facility] Address [address], [place] [address] Care Team Providers Care Vending Supervisor Name Role Phone Needs Pcp, Assignment Primary Care Provider [phone] Reason for Visit * Auth/Cert Specialty Diagnoses / Procedures Referred By Contac t Referred To Contact Diagnoses Diarrhea of presumed infectious origin Fibromyalgia Diarrhea of presumed infectious origin Fibromyalgia Diarrhea of presumed infectious origin Fibromyalgia Referral ID Status Reason Start Date Expiration Date Visits Re quested Visits Authorized [id number] 1 1 Encounter Details Date Type Department Care Team (Latest Contact Info) Description 07/15/2019 Lab Requisition [facility] [address] [facility] [place] [address] Lul Hunter MD [address] [place], [place] [id number] Enterocolitis due to Clostridium difficile, not specified [...] C.DIFFICILE TOXIN,MOLECULAR DETECTION Routine 07/15/2019 10:00 PM BILINGUAL OPERATOR Enterocolitis due to Clostridium difficile, not specified as recurrent documented in this encounter Results * (ABNORMAL) C.Difficile Toxin,Molecular Detection, (07/15/2019 10:00 PM BILINGUAL OPERATOR) C.difficile by PCR Detected( A) Not Detected 07/15/2019 11:30 PM BILINGUAL OPERATOR [facility] Stool Non-blood Collection / Unknown 07/15/2019 10:00 PM BILINGUAL OPERATOR 07/15/2019 10:24 PM BILINGUAL OPERATOR Narrative [facility] - 07/15/2019 11:30 PM BILINGUAL OPERATOR Methodology: Qualitative real-time PCR assay to detect the Clostridium difficile toxin B gene. Lul Hunter MD LAB_1 [facility] [address] [place], [place] [address] [place] [address] documented in this encounter Visit Diagnoses Diagnosis Enterocolitis due to Clostridium difficile, not specified as recurrent documented in this encounter Care Teams Vending Supervisor Relationship Specialty Start Date End Date Needs Pcp, [place] [address] PCP - General 02/28/21 documented as of this encounter
--- OUTSIDE RECORDS SUMMARY | 2024-04-10 17:44 | XMS_ITS | Encounter Summary ---
Author Organization [facility] Address [address] [place] [address] Care Team Providers Care Fur Sewer Name Role Phone Heladio Martins MD Primary Care Provider Kelsi Glez MD Unavailable [phone] Nivia Bruno MD Primary Care Provider [phone] Reason for Visit * Reason Onset Date Comments MH/CD Inpatient 04/15/2016 Encounter Details Date Type Department Care Team ([facility] Contact Info) Description 04/15/2016 Telephone [facility] Intake [address] [place] [address] Generic, Behavioral Intake, MD MH/CD Inpatient Social History Tobacco Use Types Packs/Day Years Used Date Smoking Tobacco: Never Assessed Comments Unknown Sex and Gender Information Value Date Recorded Sex Assigned at Not on file Legal Sex Female 3:16 AM HEAD HOST/HOSTESS Gender Identity Not on file Sexual Orientation [...] as it is after 10pm); unit notified HOST/HOSTESS HOST/HOSTESS documented in this encounter Plan of Treatment Not on file documented as of this encounter Visit Diagnoses Not on filedocumented in this encounter Care Teams Fur Sewer Relationship Specialty Start Date End Date Heladio Martins MD PCP - General Internal Medicine 03/05/16 03/21/21 Nivia Bruno MD [address] [place] [address] PCP - General 03/22/21 Kelsi Handy MD [address] [place] [address] Assigned OBGYN Provider 04/23/20 3 documented as of this encounter
--- OUTSIDE RECORDS SUMMARY | 2024-04-10 17:44 | XMS_ITS | Encounter Summary ---
Author Organization [facility] Address [facility] [place] [place] [address] Care Team Providers Care Emergency Room Tech Name Role Phone Heladio Martins MD Primary Care Provider Kelsi Glez MD Unavailable [phone] Nivia Bruno MD Primary Care Provider Encounter Details Date Type Department Care Team (Latest Contact Info) Description 03/06/2021 [facility] Treatment Plan [facility] [address] [place] [phone] Dav Tierney MD [address] [place] [address] Megan Ruiz, SHANNON Major depressive disorder, recurrent episode, severe (H) (Primary Dx) Social History Tobacco Use Types Packs/Day Years Used Date Smoking Tobacco: Never Smokeless Tobacco: Never Alcohol Use Standard Drinks/Week Comments No 0 (1 standard drink = 0.6 oz pur e alcohol) PHQ-2 Answer Date Recorded PHQ-2 Score 6 03/06/2021 Comments No Sex and Gender Information Value Date Recorded Sex Assigned at Not on file Legal Sex Female 3:16 AM POKER PROP PLAYER Gender Identity Not on file Sexual Orientation [...] documented as of this encounter Care Teams Emergency Room Tech Relationship Specialty Start Date End Date Heladio Martins MD PCP - General Internal Medicine 03/05/16 03/21/21 Nivia Bruno MD [address] [facility] [place] [address] PCP - General 03/22/21 Kelsi Handy MD [address] [place] [facility] [place] [address] Assigned OBGYN Provider 04/23/20 3 documented as of this encounter
--- OUTSIDE RECORDS SUMMARY | 2024-04-10 17:44 | XMS_ITS | Encounter Summary ---
Author Organization [facility] Address [address] [place] [address] Care Team Providers Care Garnishment Specialist Name Role Phone Needs Pcp, Assignment Primary Care Provider [phone] Encounter Details Date Type Department Care Team (Late st Contact Info) Description 07/16/2019 Lab Requisition [facility] [address] [facility] [place], [place] [address] Lul Hunter MD [address] [place], [place] [id number] Encounter for surgical aftercare following surgery on [...] organs documented in this encounter Care Teams Garnishment Specialist Relationship Specialty Start Date End Date Needs Pcp, Bertha [facility] [place] [place] [address] PCP - General 02/28/21 documented as of this encounter
--- OUTSIDE RECORDS SUMMARY | 2024-04-10 17:44 | XMS_ITS | Encounter Summary ---
Author Organization [place] Address [address] [place] [address] Care Team Providers Care Bicycle Fitter Name Role Phone Heladio Martins MD Primary Care Provider Kelsi Glez MD Unavailable [phone] Nivia Bruno MD Primary Care Provider [phone] Encounter Details Date Type Department Care Team ([facility] Contact Info) Description 03/07/2021 [facility] Behavioral Health Intake [address] [place] [phone] Generic, Behavioral Intake, Social History Tobacco Use Types Packs/Day Years Used Date Smoking Tobacco: Never Smokeless Tobacco: Never Alcohol Use Standard Drinks/Week Comments No 0 (1 standard drink = 0.6 oz pur e alcohol) PHQ-2 Answer Date Recorded PHQ-2 Score 6 03/06/2021 Comments No Sex and Gender Information Value Date Recorded Sex Assigned at Not on file Legal 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 She has Medicare and BCBS. Please check ifinsurance will cover another PHP program. Patient was given [employer] phone number. * Telephone Encounter - Jen Serrano - 03/07/2021 7:50 AM CDT ----- Message from KETTY Rollins sent at 03/06/2021 7:37 PM CDT ----- Regarding: Schedule for PHP on Friday Scheduling Request Patient Name: Juliette Brown Location of programming: [facility] Start Date: 03/12 Group: [id number] 9am to 3pm Attending Provider (): Vine Number of visits to be scheduled: 50 Duration of Appointment in minutes: 360 Visit Type: Zoom - 2657 Additional notes: Patient is currently in PHP at [facility]. She has Medicare and BCBS. Please check ifinsurance will cover another PHP program. Patient was given [employer] phone number. documented in this encounter Plan of Treatment Not on file documented as of this encounter Visit Diagnoses Not on filedocumented in this encounter Additional Health Concerns Assessment Noted Time PHQ-9 Depression Total Score: 21 021 12:28 PM CDT documented as of this encounter Care Teams Bicycle Fitter Relationship Specialty Start Date End Date Heladio Martins MD PCP - General Internal Medicine 03/05/16 03/21/21 Nivia Bruno MD [address] [place] [address] PCP - General 03/22/21 Kelsi Handy MD [address] [place] [address] Assigned OBGYN Provider 04/23/20 3 documented as of this encounter
--- OUTSIDE RECORDS SUMMARY | 2024-04-10 17:44 | XMS_ITS | Encounter Summary ---
Author Organization [place] Address [address] [place] [address] Care Team Providers Care Call Center Nurse Name Role Phone Kelsi Handy MD Unavailable [phone] Nivia Bruno MD Primary Care Provider [phone] Encounter Details Date Type Department Care Team ([facility] Contact Info) Description 09/25/2021 Telephone [facility] Behavioral Health Intake [address] [place] [phone] Generic, Behavioral Intake, Social History Tobacco Use Types Packs/Day Years Used Date Smoking Tobacco: Never Smokeless Tobacco: Never Alcohol Use Standard Drinks/Week Comments No 0 (1 standard drink = 0.6 oz pur e alcohol) PHQ-2 Answer Date Recorded PHQ-2 Score 2 06/13/2021 Comments No Sex and Gender Information Value Date Recorded Sex Assigned at Not on file Legal Sex Female 3:16 AM CONDENSER OPERATOR Gender Identity Not on file Sexual Orientation Not on file documented as of this encounter Miscellaneous Notes * Telephone Encounter - Rafael Cota - 09/25/2021 12:00 PM CDT ----- Message from SHANNON Warner sent at 09/25/2021 11:03 AM CDT ----- Regarding: add appointment Scheduling Request Patient Name: ?? Location of programming: [facility] Start Date: 09/27/21 Group (BHxxxxx on #days of the week# at #start time to end time#): 55+ clinic 1 Provider (name of MD):kerry Number of visits to be scheduled: 1 Duration of Appointment in minutes: 120 mins Visit Type (Amwell - 0912 / Zoom - 2657 / In-person or Treatment - 870) :zoom 2657 Additional notes: documented in this encounter Plan of Treatment Not on file documented as of this encounter Visit Diagnoses Not on filedocumented in this encounter Additional Health Concerns Assessment Noted Time PHQ-9 Depression Total Score: 7 06/14/19 22 10:59 AM CONDENSER OPERATOR documented as of this encounter Care Teams Call Center Nurse Relationship Specialty Start Date End Date Nivia Bruno MD [address] [place] [address] PCP - General 03/22/21 Kelsi Handy MD [address] [place] [address] Assigned OBGYN Provider 04/23/20 3 documented as of this encounter
--- OUTSIDE RECORDS SUMMARY | 2024-04-10 17:44 | XMS_ITS | Encounter Summary ---
Author Organization [facility] Address [address] [address] Care Team Providers Care Consultative Sales Associate Name Role Phone Needs Pcp, Assignment Primary Care Provider [phone] Encounter Details Date Type Department Care Team (Late st Contact Info) Description 07/12/2019 Lab Requisition [facility] [address] [facility] [place] [address] Lul Hunter MD [address] [place], [place] [phone] Encounter for surgical aftercare following surgery on [...] BASIC METABOLIC PANEL Routine 07/13/2019 7:00 AM CREDIT COLLECTIONS MANAGER Encounter for surgical aftercare following surgery on the nervous system COMPLETE BLOOD COUNT-NO DIFF Routine 07/13/2019 7:00 AM CREDIT COLLECTIONS MANAGER Encounter for surgical aftercare following surgery on the nervous system documented in this encounter Results * (ABNORMAL) Basic Metabolic Panel (07/13/2019 7:00 AM CREDIT COLLECTIONS MANAGER) Sodium 136 136 - 145 mmol/L 07/13/2019 12:35 PM CREDIT COLLECTIONS MANAGER [facility] Potassium 4.7 3.5 - 5.1 mmol/L 07/13/2019 12:35 PM CREDIT COLLECTIONS MANAGER [facility] Chloride 100 98 - 109 mmol/L 07/13/2019 12:35 PM CREDIT COLLECTIONS MANAGER [facility] CO2 27 20 - 29 mmol/L 07/13/2019 12:35 PM CREDIT COLLECTIONS MANAGER [facility] Anion Gap 9 7 - 16 mmol/L 07/13/2019 12:35 PM CREDIT COLLECTIONS MANAGER [facility] Calcium 9.2 8.4 - 10.4 mg/dL 07/13/2019 12:35 PM CREDIT COLLECTIONS MANAGER [facility] BUN 18 7 - 26 mg/dL 07/13/2019 12:35 PM CREDIT COLLECTIONS MANAGER [facility] Creatinine 0.76 0.55 - 1.02 mg/dL 07/13/2019 12:35 PM CREDIT COLLECTIONS MANAGER [facility] GFR, Estimated >60 >60 mL/min/1.7 3m2 07/13/2019 12:35 PM CREDIT COLLECTIONS MANAGER [facility] GFR, Est If >60 >60 mL/min/1.7 3m2 07/13/2019 12:35 PM CREDIT COLLECTIONS MANAGER [facility] Glucose 105(H) 70 - 100 mg/dL 07/13/2019 12:35 PM CREDIT COLLECTIONS MANAGER [facility] Comment:The given reference range is for the fasting state. Non-fasting reference range for glucose is 70 - 180 mg/dL. Hours Fasting Unknown 07/13/2019 12:35 PM CREDIT COLLECTIONS MANAGER [facility] Blood Venipuncture / Unknown 07/13/2019 7:00 AM CREDIT COLLECTIONS MANAGER 07/13/2019 10:40 AM CREDIT COLLECTIONS MANAGER Lul Hunter MD LAB_1 [facility] [address] * (ABNORMAL) Complete Blood Count-No Diff (07/13/2019 7:00 AM CREDIT COLLECTIONS MANAGER) WBC 4.7 3.5 - 10.5 x10(9)/L 07/13/2019 11:17 AM CREDIT COLLECTIONS MANAGER [facility] RBC 3.19(L) 3.90 - 5.03 x10(12)/L 07/13/2019 11:17 AM CREDIT COLLECTIONS MANAGER [facility] Hemoglobin 10.1(L) 12.0 - 15.5 g/dL 07/13/2019 11:17 AM CREDIT COLLECTIONS MANAGER [facility] HCT 31.2(L) 34.9 - 44.5 % 07/13/2019 11:17 AM CREDIT COLLECTIONS MANAGER [facility] MCV 97.8 80.0 - 100.0 fL 07/13/2019 11:17 AM CREDIT COLLECTIONS MANAGER [facility] MCH 31.7 27.6 - 33.3 pg 07/13/2019 11:17 AM CREDIT COLLECTIONS MANAGER [facility] MCHC 32.4 31.5 - 35.2 g/dL 07/13/2019 11:17 AM CREDIT COLLECTIONS MANAGER [facility] RDW 11.7(L) 11.9 - 15.5 % 07/13/2019 11:17 AM CREDIT COLLECTIONS MANAGER [facility] Platelets 221 150 - 450 x10(9)/L 07/13/2019 11:17 AM CREDIT COLLECTIONS MANAGER [facility] Automated NRBC 0 <=0 /100 WBC 07/13/2019 11:17 AM CREDIT COLLECTIONS MANAGER [facility] Blood Venipuncture / Unknown 07/13/2019 7:00 AM CREDIT COLLECTIONS MANAGER 07/13/2019 10:44 AM CREDIT COLLECTIONS MANAGER Lul Hunter MD LAB_1 Performing Organization Address City/State/[facility] Co de Phone Number [facility] [address] [place] [address], [facility] documented in this encounter Visit Diagnoses Diagnosis Encounter for surgical aftercare following surgery on the nervous system documented in this encounter Care Teams Consultative Sales Associate Relationship Specialty Start Date End [place] [address] PCP - General 02/28/21 documented as of this encounter
--- OUTSIDE RECORDS SUMMARY | 2024-04-10 17:44 | XMS_ITS | Clinical Summary ---
Author Organization [email or web address] Address [address] [place] [address] Care Team Providers Care Child Support Case Officer Name Role Phone Needs Pcp, Assignment Primary Care Provider [phone] Source Comments You are receiving this document as you are listed as the primary care provider,follow-up provider, or the patient has been referred to you for consultation.This is in compliance with the Medicare and[facility] EHR Incentive Program,which states Providers who transition their patient to another setting of careor provider of care or refers their patient to another provider of care shouldprovide summary care record for each transition of care or referral. [employer] Allergies Active Allergy Reactions Criticality Noted Date [...] (OCEAN) 0.65 % nasal solution Place 1 Morgan into both nostrils every 2 hours as needed for Congestion. Active bacitracin-polymyx in b (POLYSPORIN) [id number] UNIT/GM ointmentIndication s:dry nose Apply topically two [...] (06/14/2019): Added automatically from request for surgery [id number] Sarcoidosis, lung 06/01/2019 Recurrent major depressive disorder [...] 65 07/20/2019 8:09 AM CDT Temperature 36.6 C (97.8 F) 07/20/2019 8:09 AM CDT Respiratory Rate 18 07/20/2019 8:09 AM CDT Oxygen Saturation 96% 07/20/2019 8:09 AM CDT Inhaled Oxygen Concentration - - Weight 66.1 kg (145 lb 12.8 oz) 07/16/2019 9:00 PM PHYSICIAN ASSISTANT CERTIFIED Height 172.7 cm (5' 8) 07/15/2019 9:30 PM PHYSICIAN ASSISTANT CERTIFIED Body Mass Index 22.17 07/15/2019 9:30 PM PHYSICIAN ASSISTANT CERTIFIED Plan of Treatment Health Maintenance Due Date [...] on patient's age to complete this topic Infant RSV Aged Out No longer eligi ble based on patient's age to complete this topic MCV4 Aged Out No longer eligi ble based on patient's age to complete this topic Medical Devices Implanted Type Area Milk And Cream Grader Device Identifier Shelf Expiration Date Model / Serial / Lot Chip Canc Dinor[place]on 30cc - [id number] Implanted:Qty: 1 on 07/07/2019 by Tobias Martin MD at [facility] DEVICE Right: LEG [employer] - [employer] 06/30/2023 [id number] / [id number] / [id number] Chip Canc Dinor[place]uton 30cc - [id number] Implanted:Qty: 1 on 07/07/2019 by Tobias Martin MD at [facility] DEVICE Right: LEG [employer] - [employer] 06/30/2023 [id number] / [id number] / [id number] Procedures Procedure Name Priority Date/Time [...] Negative (Non Reactive) 08/25/2018 4:34 PM CDT [facility] Comment:HIV-1 p24 Antigen an d HIV-1/HIV-2 Antibody not detected Blood Venipuncture / Unknown 08/25/2018 11:24 AM CDT 08/25/2018 11:24 AM CDT Carin Rainey MD LAB_1 [facility] [address] [place] [address], [facility] * HCAB - Hepatitis C Virus Paula with Reflex In-House (08/25/2018 11:24 AM CDT) Hepatitis C Antibody Negative (Non Reactive) Negative (Non Reactive) 08/25/2018 4:34 PM CDT [facility] Comment:Antibodies to HCV no t detected. Does not exclude the possiblity of exposure to HCV. 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
--- OUTSIDE RECORDS SUMMARY | 2024-04-10 17:44 | XMS_ITS | Encounter Summary ---
Author Organization [place] Address [address] [place] [address] Care Team Providers Care Director Marketing Analytics Name Role Phone Kelsi Handy MD Unavailable [phone] Nivia Bruno MD Primary Care Provider [phone] Encounter Details Date Type Department Care Team ([facility] Contact Info) Description 06/13/2021 Telephone [facility] Behavioral Health Intake [address] [place] [phone] Generic, Behavioral Intake, Social History Tobacco Use Types Packs/Day Years Used Date Smoking Tobacco: Never Smokeless Tobacco: Never Alcohol Use Standard Drinks/Week Comments No 0 (1 standard drink = 0.6 oz pur e alcohol) PHQ-2 Answer Date Recorded PHQ-2 Score 2 06/13/2021 Comments No Sex and Gender Information Value Date Recorded Sex Assigned at Not on file Legal Sex Female 3:16 AM EXPERIENCE PLANNING STRATEGIST Gender Identity Not on file Sexual Orientation Not on file documented as of this encounter Miscellaneous Notes * Telephone Encounter - Rafael Cota - 06/29/2021 12:06 PM CST ----- Message from KETTY Lynn sent at 06/29/2021 11:41 AM EXPERIENCE PLANNING STRATEGIST ----- Regarding: new start Clinic 1 on 07/05 Scheduling Request Patient Name: Juliette Brown Location of programmin+ Start Date: June Group: Clinic 1 on at 1:00 to 3:00PM Attending Provider (MD): 12 Number of visits to be scheduled: 12 Duration of Appointment in minutes: 120 min Visit Type: Zoom - 2657 Additional notes: RIENCE PLANNING STRATEGIST * Telephone Encounter - Jen Serrano - 06/13/2021 9:38 AM CST ----- Message from SHANNON Warner sent at 06/13/2021 9:12 AM EXPERIENCE PLANNING STRATEGIST ----- Regarding: add appointment Scheduling Request Patient Name: ?? Location of programming: [facility] 55+ Start Date:06/13/21 Group (BHxxxxx on #days of the week# at #start time to end time#): 55+ B1 M,W,F 1-4pm Provider (name of MD): Niall Number of visits to be scheduled: 1 Duration of Appointment in minutes: 180 mins Visit Type (Amwell - 2702 / Zoom - 2657 / In-person or Treatment - 870) :2657-zoom Additional notes: RIENCE PLANNING STRATEGIST documented in this encounter Plan of Treatment Not on file documented as of this encounter Visit Diagnoses Not on filedocumented in this encounter Additional Health Concerns Assessment Noted Time PHQ-9 Depression Total Score: 7 06/14/19 22 10:59 AM EXPERIENCE PLANNING STRATEGIST documented as of this encounter Care Teams Director Marketing Analytics Relationship Specialty Start Date End Date Nivia Bruno MD [address] [place] [address] PCP - General 03/22/21 Kelsi Handy MD [address] [place] [address] Assigned OBGYN Provider 04/23/20 3 documented as of this encounter
[2024-04-10 17:48] VITALS: PULSE 83; RESP 16; O2SAT 100
[2024-04-10] MEDS: ONDANSETRON ODT 4 MG TAB PO (18:24)
--- NOTE | 2024-04-10 18:41 | ED.NURSE ---
Pt left three necklaces under bed at time of discharge, one cross and two crystal. Fire Medic did call and number available did not connect with Pt. Necklaces are labeled with Pt name and left at ER clinical support nurse.
== END 2024-04-10 18:34 | disposition home or self-care (01) ==
PROVIDERS: Emergency Provider Family Medicine; PCP Family Medicine
DX: T60.91XA Toxic effect of unspecified pesticide, accidental (unintentional), initial encounter (principal)
CPT/HCPCS: 99283; 99284; A9270

== ENCOUNTER 2024-05-12 15:35 | Outpatient (REF) | payer MEDICARE, BC, SELFPAY ==
[2024-05-12 16:48] LABS: Chloride* 102 mmol/L (96-114); Potassium* 3.9 mmol/L (3.6-5.1); Sodium* 135 mmol/L (135-149)
[2024-05-12 16:51] LABS: Anion Gap 7 mEq/L (7-15); Blood Urea Nitrogen* 21 mg/dL (7-30); Carbon Dioxide* 26 mmol/L (20-32); Creatinine* 0.9 mg/dL (0.5-1.5); Estimated Glomerular Filt Rate 71 ml/min; Glucose* 90 mg/dL (60-115)
[2024-05-12 16:52] LABS: Calcium* 9.3 mg/dL (8.4-10.6)
== END 2024-05-12 15:36 | disposition home or self-care (01) ==
LOC: NPINS 15:35
PROVIDERS: PCP Family Medicine; Visit Provider Family Medicine
DX: N17.9 Acute kidney failure, unspecified (principal); M85.80 Other specified disorders of bone density and structure, unspecified site
CPT/HCPCS: 80048

== ENCOUNTER 2024-05-14 13:00 | Outpatient (RCR) | payer MEDICARE, BC, SELFPAY ==
--- OUTSIDE RECORDS SUMMARY | 2024-04-30 14:03 | XMS_ITS | Data Portability ---
Author Organization [place] [facility] [place] [facility], [facility] Address [address] [facility] [address] [place] [address] Assessment No assessment recorded. Plan of Treatment Reminders Order Date Submit Date Provider Last Modified By Organization Details Last Modified Time Details Appointments None recorded. Lab urinalysi s, dipstick 2023 024 [facility], [address], [place], [address], 13:07:01 Referral pelvic floor therapy referral 2023 024 [facility], [address], [place], [address], 08:14:59 Procedures None recorded. Surgeries None recorded. Imaging None recorded. Medication Orders None recorded. Patient TargetsNo targets recorded. Patient InstructionsNo instructions recorded. Reason for Referral Pelvic Floor Therapy Referra l for Urgent desire to urinate Referring Physician: Nancy Troncoso, Urology, Encounter Date: 06/17/2023 Results Created Date Observation Date Name Description Value Unit Range Abnormal Flag Note LastModifiedBy Organization Detail LastModifiedTime 06/17/1906/17/2023 urina lysis , dipst ick Color-Status Yellow Not Available [facility] [address], [place], [address], 06/17/2023 12:42:43 06/17/19 24 06/17/2023 urina lysis , dipst ick Clarity-Stat us Clear Not Available [facility] [address], [place], [address], 06/17/2023 12:42:43 06/17/19 24 06/17/2023 urina lysis , dipst ick Glucose-Stat us Negati ve Not Available [facility] [address], [place], [address], 06/17/2023 12:42:43 06/17/19 24 06/17/2023 urina lysis , dipst ick Bilirubin-St atus Negati ve Not Available [facility] [address], [place], [address], 06/17/2023 12:42:43 06/17/19 24 06/17/2023 urina lysis , dipst ick Ketones-Stat us Negati ve Not Available [facility] [address], [place], [address], 06/17/2023 12:42:43 06/17/19 24 06/17/2023 urina lysis , dipst ick Sp Morton-Stat us 1.020 Not Available [facility] [address], [place], [address], 06/17/2023 12:42:43 06/17/19 24 06/17/2023 urina lysis , dipst ick pH-Status 5.5 Not Available [facility] [address], [place], [address], 06/17/2023 12:42:43 06/17/19 24 06/17/2023 urina lysis , dipst ick Urobilinogen -Status 0.2 Not Available [facility] [address], [place], [address], 06/17/2023 12:42:43 06/17/19 24 06/17/2023 urina lysis , dipst ick Nitrates-Sta tus negati ve Not Available [facility] [address], [place], [address], 06/17/2023 12:42:43 06/17/19 24 06/17/2023 urina lysis , dipst ick Blood-Status Negati ve Not Available [facility] [address], [place], [address], 06/17/2023 12:42:43 06/17/19 24 06/17/2023 urina lysis , dipst ick Leuko-Status Trace Not Available [facility] [address], [place], [address], 06/17/2023 12:42:43 06/17/19 24 06/17/2023 urina lysis , dipst ick Specimen Type Voided Not Available [facility] [address], [place], [address], 06/17/2023 12:42:43 06/17/19 24 06/17/2023 urina lysis , dipst ick Performed by Nelli Al RN Not Available [facility] [address], [place], [address], 06/17/2023 12:42:43 Result Notes None recorded. Procedures Surgical History Date Name Laterality Status Provider Name and Address Organization Details Recorded Time 06/17/19 24 CystoscopyFemale completed David Rowland PA-C [address] [place] [address],[address], [address], [facility] 06/17/2023 13:01:47 06/17/19 24 Bladder Scan completed Nelli Al [facility] 06/17/2023 12:47:55 Imaging Results None recorded. Procedure Notes None recorded. Medical Equipment None Reported. Allergies Allergen ID Allergen Name Allergen Category Reaction Reaction Severity Criticality Documentation Date Start Date Code Code System Note Provider Name and Address Organization Details Recorded Time [id number] 5117381v2 2824e auranofin medicatio n Not available Not available Not available 06/17/2023 1227 RxNorm Not Available Not Available Not Available [id number] 397536480 1561739w4 2824e cat dander environme nt Not available Not available Not available 06/17/2023 35684 UNK Not Available Not Available Not Available [id number] 822792916 8911131c9 2824e Product containin g gadoliniu m and/or gadoliniu m compound (product) medicatio n Not available Not available Not available 06/17/2023 11450 3008 SNOMED Not Available Not Available Not Available [id number] 057965002 6147252w6 2824e wheat gluten extract food Not available Not available Not available 06/17/2023 87279 81 RxNorm Not Available Not Available Not Available [id number] 935866680 9329365w7 2824e gold keratinat e Not available Not available Not available Not available 06/17/2023 14924 RxNorm Not Available Not Available Not Available [id number] 753788806 9756519q6 2824e Substance with morphinan structure and opioid receptor agonist mechanism of action (substanc e) medicatio n Not available Not available Not available 06/17/2023 99626 9000 SNOMED Not Available Not Available Not Available Medications Name Sig Start Date Stop Date [...] Updated DateTime 06/17/2023 172.72 cm 20.4 kg/m2 60496.38 g Nelli Al [facility] 06/17/2023 12:26:06 Social History None recorded. Functional Status None recorded. Mental Status None recorded. Family History Nothing Reported. Medical History No medical history recorded. Gynecological HistoryNo gynecological history recorded. Obstetrics History GPAL:G 0 P 0 0 0 0 Past Encounters Encounter ID Performer Location Encounter Start Date Encounter Closed Date Diagnosis/Indication Diagnosis SNOMED-CT Code Diagnosis ICD10 Code [id number] Nancy Troncoso MD [facility] [address] [place] [address] 06/17/2023 11:59:35 06/18/2023 10:35:23 Urgent desire to urinate 55416631 R39.15 Recurrent urinary tract infection 817514530 N39.0 Vaginal dryness 87573621 N89.8 Health Concerns Section Related Observation LastModified by Organization Detai ls LastModified Time None Recorded Concern Status LastModified by Organization Details LastModified Time None Recorded Advance Directives Directive None Recorded Payers Encounter Date Sequence Insurance Name Policy Number Policy Duval Covered Member ID Duval Member ID Guarantor Name 06/17/2023 1 [place] [employer] Juliette Brown [id number] Juliette Brown 06/17/2023 2 [place] [id number] Juliette Brown [id number] Juliette Brown Notes Date Note Type Note Provider Name and Address Organization Details Recorded Time 06/17/2023 text/html 63 YO F here to establish care for lichens sclerosis, OAB Previously followed by PF for OAB. She has tried:-Oxybutynin- minimal improvement-Myrbetr iq- side effect of dry eyes-urethral dilation She notes that feels feels likes [...] colitis, vaginal candidiasis, polyarticular juvenile RA, HLD UC:04/07/22: [place] S E.coli >100k1: enterobacter >100k R tp cefazolin treated with fosfomycin- then bactrim DS for 10 days02/23/23: <50k mixed04/06/23: 100k mixed gram positive flora04/09/23: <50k mixed11/21/22 <50k mixed gram positive flora02/2023: Enterococcus UA: Without signs of infectionPVR: 3 ccPelvic: Vaginal dryness and atrophy, some skin changes around the vaginal introitus that could be consistent with lichen sclerosis, no POPCysto: Normal Nancy Troncoso MD [address] [place] [address],[address], [place], [address], [facility] 06/17/2023 13:59:27 OBGyn Episode No OBEpisode recorded.
== END 2024-09-11 23:59 | disposition home or self-care (01) ==
PROVIDERS: PCP Family Medicine; Visit Provider Family Medicine
DX: M08.3 Juvenile rheumatoid polyarthritis (seronegative) (principal); M25.511 Pain in right shoulder; M51.36 Other intervertebral disc degeneration, lumbar region; M76.891 Other specified enthesopathies of right lower limb, excluding foot; Z96.649 Presence of unspecified artificial hip joint; M76.31 Iliotibial band syndrome, right leg; Z51.89 Encounter for other specified aftercare
CPT/HCPCS: 97035; 97110; 97140; 97163; 97535

== ENCOUNTER 2024-06-23 09:57 | Outpatient (CLI) | payer MEDICARE, BC, SELFPAY | END 2024-06-23 09:58 | disposition home or self-care (01) | LOC: RAD 09:58 | PROVIDERS: PCP Family Medicine; Visit Provider Family Medicine | DX: R60.0 Localized edema (principal) | CPT/HCPCS: 93306 ==

== ENCOUNTER 2024-06-29 16:02 | Emergency (ER) | payer MEDICARE, BC, SELFPAY ==
--- OUTSIDE RECORDS SUMMARY | 2024-06-29 16:04 | XMS_ITS | Encounter Summary ---
Author Organization [facility] Address [address] [place] [address] Care Team Providers Care Regulatory Consultant Name Role Phone Heladio Martins MD Primary Care Provider Kelsi Glez MD Unavailable [phone] Nivia Bruno MD Primary Care Provider [phone] Encounter Details Date Type Department Care Team ([facility] Contact Info) Description 03/07/2021 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 She has Medicare and BCBS. Please check ifinsurance will cover another PHP program. Patient was given [employer] phone number. * Telephone Encounter - Jen Serrano - 03/07/2021 7:50 AM CDT ----- Message from KETTY Rollins sent at 03/06/2021 7:37 PM CDT ----- Regarding: Schedule for PHP on Friday Scheduling Request Patient Name: Juliette Brown Location of programming: [facility] Start Date: 03/12 Group: [id number] 9am to 3pm Attending Provider (): Vine Number of visits to be scheduled: 50 Duration of Appointment in minutes: 360 Visit Type: Zoom - 2657 Additional notes: Patient is currently in PHP at [facility]. She has Medicare and BCBS. Please check ifinsurance will cover another PHP program. Patient was given [employer] phone number. documented in this encounter Plan of Treatment Not on file documented as of this encounter Visit Diagnoses Not on filedocumented in this encounter Additional Health Concerns Assessment Noted Time PHQ-9 Depression Total Score: 21 021 12:28 PM CDT documented as of this encounter Care Teams Regulatory Consultant Relationship Specialty Start Date End Date Heladio Martins MD PCP - General Internal Medicine 03/05/16 03/21/21 Nivia Bruno MD [address] [place] [address] PCP - General 03/22/21 Kelsi Handy MD [address] [place] [address] Assigned OBGYN Provider 04/23/20 3 documented as of this encounter
--- OUTSIDE RECORDS SUMMARY | 2024-06-29 16:04 | XMS_ITS | Encounter Summary ---
Author Organization [facility] Address [address] [place] [address] Care Team Providers Care Pizzamaker Name Role Phone Heladio Martins MD Primary Care Provider Kelsi Glez MD Unavailable [phone] Nivia Bruno MD Primary Care Provider [phone] Reason for Visit * Reason Onset Date Comments MH/CD Inpatient 04/15/2016 Encounter Details Date Type Department Care Team ([facility] Contact Info) Description 04/15/2016 Telephone [facility] Behavioral Health Intake [address] [place] [address] Generic, Behavioral Intake, MD MH/CD Inpatient Social History Tobacco Use Types Packs/Day Years Used Date Smoking Tobacco: Never Assessed Comments Unknown Sex and Gender Information Value Date Recorded Sex Assigned at Not on file Legal 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
--- OUTSIDE RECORDS SUMMARY | 2024-06-29 16:04 | XMS_ITS | Encounter Summary ---
Author Organization [facility] Address [address] [place] [address] Care Team Providers Care Invasive Physician Name Role Phone Kelsi Handy MD Unavailable [phone] Nivia Bruno MD Primary Care Provider [phone] Encounter Details Date Type Department Care Team ([facility] Contact Info) Description 09/25/2021 Telephone [facility] Behavioral Health Intake [address] [place] [phone] Generic, Behavioral Intake, Social History Tobacco Use Types Packs/Day Years Used Date Smoking Tobacco: Never Smokeless Tobacco: Never Alcohol Use Standard Drinks/Week Comments No 0 (1 standard drink = 0.6 oz pur e alcohol) PHQ-2 Answer Date Recorded PHQ-2 Score 2 06/13/2021 Comments No Sex and Gender Information Value Date Recorded Sex Assigned at Not on file Legal Sex Female 3:16 AM CERTIFIED PHARMACY TECH Gender Identity Not on file Sexual Orientation Not on file documented as of this encounter Miscellaneous Notes * Telephone Encounter - Rafael Cota - 09/25/2021 12:00 PM CDT ----- Message from SHANNON Warner sent at 09/25/2021 11:03 AM CDT ----- Regarding: add appointment Scheduling Request Patient Name: ?? Location of programming: [facility] Start Date: 09/27/21 Group (BHxxxxx on #days of the week# at #start time to end time#): 55+ clinic 1 Provider (name of MD):kerry Number of visits to be scheduled: 1 Duration of Appointment in minutes: 120 mins Visit Type (Amwell - 9902 / Zoom - 2657 / In-person or Treatment - 870) :zoom 2657 Additional notes: documented in this encounter Plan of Treatment Not on file documented as of this encounter Visit Diagnoses Not on filedocumented in this encounter Additional Health Concerns Assessment Noted Time PHQ-9 Depression Total Score: 7 06/14/19 22 10:59 AM CERTIFIED PHARMACY TECH documented as of this encounter Care Teams Invasive Physician Relationship Specialty Start Date End Date Nivia Bruno MD [address] [place] [address] PCP - General 03/22/21 Kelsi Handy MD [address] [place] [address] Assigned OBGYN Provider 04/23/20 3 documented as of this encounter
--- OUTSIDE RECORDS SUMMARY | 2024-06-29 16:04 | XMS_ITS | Data Portability ---
Author Organization [place] [facility], [facility] Address [address] [place] [address] Assessment No assessment recorded. Plan of Treatment Reminders Order Date Submit Date Provider Last Modified By Organization Details Last Modified Time Details Appointments None recorded. Lab urinalysi s, dipstick 2023 024 [email or web address], [address], [place], [address], 13:07:01 Referral pelvic floor therapy referral 2023 024 [facility], [address], [place], [address], 08:14:59 Procedures None recorded. Surgeries None recorded. [...] Available [facility] [address], [place], [address], 06/17/2023 12:42:43 06/17/19 24 06/17/2023 urina lysis , dipst ick Clarity-Stat us Clear Not Available [facility] [address], [place], [address], 06/17/2023 12:42:43 06/17/19 24 06/17/2023 urina lysis , dipst ick Glucose-Stat us Negati ve Not Available [facility] [address], [place], [address], 06/17/2023 12:42:43 06/17/19 24 06/17/2023 urina lysis , dipst ick Bilirubin-St atus Negati ve Not Available [facility] [address], [place], [address], 06/17/2023 12:42:43 06/17/19 24 06/17/2023 urina lysis , dipst ick Ketones-Stat us Negati ve Not Available [facility] [address], [place], [address], 06/17/2023 12:42:43 06/17/19 24 06/17/2023 urina lysis , dipst ick Sp La Jose-Stat us 1.020 Not Available [facility] [address], [place], [address], 06/17/2023 12:42:43 06/17/19 24 06/17/2023 urina lysis , dipst ick pH-Status 5.5 Not Available [facility] [address], [place], [address], 06/17/2023 12:42:43 06/17/19 24 06/17/2023 urina lysis , dipst ick Urobilinogen -Status 0.2 Not Available [facility] [address], [place], [address], 06/17/2023 12:42:43 06/17/19 24 06/17/2023 urina lysis , dipst ick Nitrates-Sta tus negati ve Not Available [facility] [address], [place], [address], 06/17/2023 12:42:43 06/17/19 24 06/17/2023 urina lysis , dipst ick Blood-Status Negati ve Not Available [facility] [address], [place], [address], 06/17/2023 12:42:43 06/17/19 24 06/17/2023 urina lysis , dipst ick Leuko-Status Trace Not Available [facility] [address], [place], [address], 06/17/2023 12:42:43 06/17/19 24 06/17/2023 urina lysis , dipst ick Specimen Type Voided Not Available [facility] [address], [place], [address], 06/17/2023 12:42:43 06/17/19 24 06/17/2023 urina lysis , dipst ick Performed by Nelli Al RN Not Available [facility] [address], [place], [address], 06/17/2023 12:42:43 Result Notes None recorded. Procedures Surgical History Date Name Laterality Status Provider Name and Address Organization Details Recorded Time 06/17/19 24 CystoscopyFemale completed David Rowland PA-C [address] [place] [address],[address], [address], [facility] 06/17/2023 13:01:47 06/17/19 24 Bladder Scan completed Nelli Al [facility] 06/17/2023 12:47:55 Imaging Results None recorded. Procedure Notes None recorded. Medical Equipment None Reported. Allergies Allergen ID Allergen Name Allergen Category Reaction Reaction Severity Criticality Documentation Date Start Date Code Code System Note Provider Name and Address Organization Details Recorded Time 943930 auranofin medicatio n Not available Not available Not available 06/17/2023 1227 RxNorm Not Available Not Available Not Available 664482 cat dander environme nt Not available Not available Not available 06/17/2023 81453 UNK Not Available Not Available Not Available 907478 Product containin g gadoliniu m and/or gadoliniu m compound (product) medicatio n Not available Not available Not available 06/17/2023 56806 3008 SNOMED Not Available Not Available Not Available 351354 wheat gluten extract food Not available Not available Not available 06/17/2023 52591 81 RxNorm Not Available Not Available Not Available 824196 gold keratinat e Not available Not available Not available Not available 06/17/2023 67932 RxNorm Not Available Not Available Not Available 661201 Substance with morphinan structure and opioid receptor agonist mechanism of action (substanc e) medicatio n Not available Not available Not available 06/17/2023 51847 9000 SNOMED Not Available Not Available Not [...] Updated DateTime 06/17/2023 172.72 cm 20.4 kg/m2 01918.38 g Nelli Al [facility] 06/17/2023 12:26:06 Social History None recorded. Functional Status None recorded. Mental Status None recorded. Family History Nothing Reported. Medical History No medical history recorded. Gynecological HistoryNo gynecological history recorded. Obstetrics History GPAL:G 0 P 0 0 0 0 Past Encounters Encounter ID Performer Location Encounter Start Date Encounter Closed Date Diagnosis/Indication Diagnosis SNOMED-CT Code Diagnosis ICD10 Code Diagnosis Note [id number] Nancy Troncoso MD [facility] [address] [place] [address] 06/17/2023 11:59:35 06/18/2023 10:35:23 Urgent desire to urinate 24205597 R39.15 I went over treatment options for OAB including diet modificati on, biofeedbac k, medication s. We woudl start with diet modificati on and PT for incontinen ce. She has concerns about side effects of the medication s Recurrent urinary tract infection 839607690 N39.0 Last UTI was in the fall 2022; treat as they happen I stressed importance of obtaining UC at the time of UTI symptoms only to guide the correct Abx choice. Vaginal dryness 76596929 N89.8 continue clobetasol and estrogen vaginashe is following at [facility] for her lichen sclerosis Health Concerns Section Related Observation LastModified by Organization Detai ls LastModified Time None Recorded Concern Status LastModified by Organization Details LastModified Time None Recorded Advance Directives Directive None Recorded Payers Encounter Date Sequence Insurance Name Policy Number Policy Duval Covered Member ID Duval Member ID Guarantor Name 06/17/2023 1 [place] [employer] Juliette Brown [id number] Juliette Brown 06/17/2023 2 [place] [id number] Juliette Brown [id number] Juliette Brown Notes Date Note Type Note [...] sclerosis, no POPCysto: Normal Nancy Troncoso MD [address], [place], [address], [facility] 06/17/2023 13:59:27 OBGyn Episode No OBEpisode recorded.
--- OUTSIDE RECORDS SUMMARY | 2024-06-29 16:04 | XMS_ITS | Clinical Summary ---
Author Organization [place] Address [address] [place] [address] Care Team Providers Care Order Schedule Clerk Name Role Phone Nivia Bruno MD Primary Care Provider [phone] Allergies Active Allergy Reactions Criticality Noted Date [...] Take 1 tablet by mouth 07/22/2014 Active [place]-3 1000 MG CAPS 04/02/2016 Active Saline (SODIUM CHLORIDE) 0.65 % SOLN [place] 1 spray in nostril 01/28/2015 Active traZODone [...] on file Legal Sex Female 3:16 AM JUDGE Gender Identity Not on file Sexual Orientation [...] CT COLONOGRAPHY 1959 DEPRESSION ACTION PLAN 1959 DEXA 1959 FIT 1959 FLEX SIG 1959 sDNA (Cologuard) 1959 COLONOSCOPY 1969 COLORECTAL CANCER SCREENING 1969 HIV SCREENING 1974 HEPATITIS C SCREENING 1977 LIPID 1999 HEPATITIS A IMMUNIZATION (2 of 2 - Risk 2-dose series) 10/26/2008 04/27/2008 Pneumococcal Vaccine: 50+ Years (3 of 3 - PCV20 or PCV21) 07/11/2014 07/11/2009, 03/25/2007, 12/10/2001 TSH W/FREE T4 REFLEX 06/23/2018 06/23/2017, 04/15/20 16 GLUCOSE 06/23/2020 06/23/2017, 04/15/2016 PHQ-9 12/11/2021 06/13/2021, 12/0 10/2020, 03/21/2021, Additional history exists MAMMO SCREENING 05/10/2023 05/10/2021 COVID-19 Vaccine ( season) 2024 02/21/2021, 08/09/2020, 07/19/2020 INFLUENZA VACCINE (#1) 2024 , 02/24/2020, 02/07/2014, Additional history exists FALL RISK ASSESSMENT 2024 MEDICARE ANNUAL WELLNESS VISIT 2024 DTAP/TDAP/TD IMMUNIZATION (6 - Td or Tdap) 05/31/2026 05/31/2016, 05/31/2016, 09/30/2005, Additional history exists RSV VACCINE (1 - 1-dose 75+ series) 2034 ZOSTER IMMUNIZATION Completed 08/28/2020, 0 HPV IMMUNIZATION Aged Out No longer e ligible based on patient's age to complete this topic MENINGITIS IMMUNIZATION Aged Out No l onger eligible based on patient's age to complete this topic Procedures Procedure Name Priority Date/Time Associated Diagnosis Comments BASIC METABOLIC PANEL Routine 06/23/2017 6:00 AM JUDGE TSH Routine 06/23/2017 6:00 AM JUDGE from Last 3 Months or Most Recently Relevant to Health Maintenance Results * TSH (06/23/2017 6:00 AM JUDGE) TSH 2.31 0.30 - 5.00 uIU/mL 06/23/2017 10:31 AM JUDGE [facility] Blood specimen (specimen) STRUCTURE OF LEFT UPPER LIMB / Unknown Venipuncture / Unknown 06/23/2017 6:00 AM JUDGE 06/23/2017 9:50 AM JUDGE Rosmery Simpson MD LAB - BLOOD ORDERABLES Fi nal Result [facility] [address] [place] [address], [facility] [address] [place] [address] * Basic metabolic panel (06/23/2017 6:00 AM JUDGE) Sodium 139 136 - 145 mmol/L 06/23/2017 10:13 AM JUDGE [facility] Potassium 4.2 3.5 - 5.0 mmol/L 06/23/2017 10:13 AM JUDGE [facility] Chloride 103 98 - 107 mmol/L 06/23/2017 10:13 AM [facility] Carbon Dioxide (CO2) 29 22 - 31 mmol/L 06/23/2017 10:13 AM [facility] Anion Gap 7 5 - 18 mmol/L 06/23/2017 10:13 AM [facility] Glucose 105 70 - 125 mg/dL 06/23/2017 10:13 AM [facility] Calcium 9.4 8.5 - 10.5 mg/dL 06/23/2017 10:13 AM [facility] Urea Nitrogen 16 8 - 22 mg/dL 06/23/2017 10:13 AM [facility] Creatinine 0.69 0.60 - 1.10 mg/dL 06/23/2017 10:13 AM [facility] GFR Estimate If Black >60 >60 mL/min/1.7 3m2 06/23/2017 10:13 AM [facility] GFR Estimate >60 >60 mL/min/1.7 3m2 06/23/2017 10:13 AM [facility] Blood specimen (specimen) STRUCTURE OF LEFT UPPER LIMB / Unknown Venipuncture / Unknown 06/23/2017 6:00 AM [facility] 06/23/2017 9:50 AM [facility] Narrative [facility] - 06/23/2017 10:13 AM [facility] Fasting Glucose reference range is 70-99 mg/dL per [place] Diabetes [employer] (ADA) guidelines. Rosmery Simpson MD LAB - BLOOD ORDERABLES Fi nal Result [facility] [address] [place] [address], [facility] [address] [place] [address] from Last 3 Months or Most Recently Relevant to [place] [address] MEDICARE [place] [address] [place] [id number] [place] Advance Directives For more information, please contact: [phone] * Full Code (Latest Code Status on File) Date Activated Date Inactivated Comments 04/16/2016 1:58 AM 04/22/2016 3:55 PM Care Teams Order Schedule Clerk Relationship Specialty Start Date End Date Nivia Bruno MD PCP - General 03/22/21
--- OUTSIDE RECORDS SUMMARY | 2024-06-29 16:04 | XMS_ITS | Clinical Summary ---
Author Organization [facility] Address [address] [place] [address] , [address] [place] [address] Phone Care Team Providers Care Woolen Suiting Shrinker Name Role Phone [facility] [place] Unavailable Unava ilable Conditions or Problems Problem Name Problem Code Onset Date Status Entry Date Provider Comment Standard Description Annotate Myalgia of auxiliary muscles, head and neck 11834824 (SNOMED CT) 06/27 Active 06/27 Jina Johnson DNP,LONG DISTANCE OPERATOR,CN P Muscle pain Hemifacial spasm R 36349641 (SNOMED CT) 08/10 Active 08/10 Norberto Miller Jr, MD Hemifacial spasm Facial pain, atypical 99853808 (SNOMED CT) 08/10 Active 08/10 Norberto Miller Jr, MD Atypical facial pain 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), right 35502925 (SNOMED CT) 08/10 Active 08/10 Norberto Miller Jr, MD Arthritis of temporomandibul ar joint Cervical spasm 74838777 (SNOMED CT) 08/10 Active 08/10 Norberto Miller Jr, MD Muscle spasm of head and/or neck Juvenile rheumatoid arthritis 410928463 (SNOMED CT) 08/10 Active 08/10 Norberto Miller Jr, MD Juvenile idiopathic arthritis Sleep disturbance (mild UARS; AHI 0.2; RDI 6.1; jose 85%; supine related) G47.9 (ICD-10-CM ) 09/04 Resolved 09/04 Norberto Miller Jr, MD Sleep disorder, unspecified Periodic limb movement disorder (2020: moderate; 15/hr; most w/arousals- -->2022: 13/hr) G47.61 (ICD-10-CM ) 11/01 Active 11/03 Norberto Miller Jr, MD Periodic limb movement disorder Sleep disturbance (mild UARS; AHI 0.2; RDI 6.1; jose 85%; supine related) G47.9 (ICD-10-CM ) 09/04 Removed 09/04 Norberto Miller Jr, MD Sleep disorder, unspecified Periodic limb movement disorder (moderate; 15/hr; most w/arousals) 337525175 (SNOMED CT) 11/01 Inactive 11/03 Norberto Miller Jr, MD Periodic limb movement disorder 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 (ICD-10-CM ) 09/20 Active 09/20 Norberto Miller Jr, MD Sleep disorder, unspecified Fatigue 70971726 (SNOMED CT) 09/20 Active 09/20 Norberto Miller Jr, MD Fatigue Paresthesia of bilateral legs 98280853 (SNOMED CT) 11/10 Active 11/10 Regan Santiago MD Paresthesia Anxiety, generalized F41.1 (ICD-10-CM ) 01/17 Active 01/17 Jesika Diallo PhD Generalized anxiety disorder Restless leg syndrome (PLMS 15/hr) G25.81 (ICD-10-CM ) 09/04 Active 09/04 Norberto Miller Jr, MD Restless legs syndrome Sleep disturbance , nos 99543574 (SNOMED CT) 09/04 Inactive 09/04 Norberto Miller Jr, MD Dyssomnia 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 (ICD-10-CM ) 09/04 Active 09/04 Norberto Miller Jr, MD Insomnia, unspecified Snoring 25988148 (SNOMED CT) 09/04 Active 09/04 Norberto Miller Jr, MD Snoring Restless leg syndrome 58259518 (SNOMED CT) 09/04 Inactive 09/04 Norberto Miller Jr, MD Restless legs 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 (ICD-10-CM ) 09/04 Active 09/04 Norberto Miller Jr, MD Abnormal level of blood mineral traumatic brain injury, initial encounter S06.309A (ICD-10-CM ) 08/02 Active 08/07 Zuleyma Ly 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, initial encounter Hypothyroid ism 71127786 (SNOMED CT) 08/02 Active 08/07 Zuleyma Ly Hypothyroidism depression 11930977 (SNOMED CT) 08/02 Active 08/07 Zuleyma Ly Depressive disorder Memory problems R41.3 (ICD-10-CM ) 08/02 Active 08/07 Zuleyma Ly Other amnesia Medications Medication Instructions Start Date Stop Date Generic Name NDC Provider ESCITALOPRAM OXALATE 20 MG TABS 12/10 escitalopram oxalate 68117264605 Norberto Miller Jr, MD LORAZEPAM 0.5 MG TABS 12/10 lorazepam 96235982930 Norberto Miller Jr, MD TRETINOIN 0.025 % CREA 12/10 tretinoin 44948458502 Norberto Miller Jr, MD MELATONIN 10 MG TABS 1 by mouth every night 12/10 melatonin-lemon balm leaf extr 86698675404 Norberto Miller Jr, MD TRIAMCINOLONE ACETONIDE 0.1 % CREA 12/10 triamcinolone acetonide 15849760908 Norberto Miller Jr, MD SUMATRIPTAN SUCCINATE 25 MG TABS 12/10 sumatriptan succinate 56848494207 Norberto Miller Jr, MD BUSPIRONE HCL 15 MG TABS 12/10 buspirone 83661606804 Norberto Miller Jr, MD DIPHENOXYLATE-ATRO PINE 2.5-0.025 MG TABS 12/10 diphenoxylate-atr opine 53405430555 Norberto Miller Jr, MD TYRVAYA 0.03 MG/ACT SOLN 12/10 varenicline 64527555050 Norberto Miller Jr, MD ESCITALOPRAM OXALATE 10 MG TABS 12/10 escitalopram oxalate 76803122057 Norberto Miller Jr, MD LIDOCAINE VISCOUS HCL 2 % SOLN 12/10 lidocaine hcl 37233267079 Norberto Miller Jr, MD LIOTHYRONINE SODIUM 5 MCG TABS 12/10 liothyronine 38422065642 Norberto Miller Jr, MD HYDROMORPHONE HCL 2 MG TABS 12/10 hydromorphone 06017696393 Norberto Miller Jr, MD ROPINIROLE HCL 0.25 MG TABS 12/10 ropinirole 13991225103 Norberto Miller Jr, MD POLYMYXIN B-TRIMETHOPRIM 69615-3.1 UNIT/ML-% SOLN 12/10 polymyxin b sulf-trimethoprim 55586090391 Norberto Miller Jr, MD YUVAFEM 10 MCG TABS 12/10 estradiol 31656961104 Norberto Miller Jr, MD SULFAMETHOXAZOLE-T RIMETHOPRIM 800-160 MG TABS 12/10 sulfamethoxazole- trimethoprim 41414127447 Norberto Miller Jr, MD VALACYCLOVIR HCL 1 GM TABS 12/10 valacyclovir 89645637527 Norberto Miller Jr, MD LIDOCAINE 5 % PTCH lidocaine 06354966400 Norberto Miller Jr, MD TRIAMCINOLONE ACETONIDE 0.1 % PSTE triamcinolone acetonide 26484397166 Norberto Miller Jr, MD PROGESTERONE 100 MG CAPS TAKE ONE CAPSULE BY MOUTH AT BEDTIME* progesterone micronized 22868161163 Norberto Miller Jr, MD ESTRADIOL 1 MG TABS estradiol 03199291299 Norberto Miller Jr, MD DIPHENOXYLATE-ATRO PINE 2.5-0.025 MG TABS diphenoxylate-at r opine 10029170827 Norberto Miller Jr, MD LIOTHYRONINE SODIUM 5 MCG TABS liothyronine 02898918406 Norberto Miller Jr, MD MELOXICAM 15 MG TABS meloxicam 34253576874 Norberto Miller Jr, MD ONDANSETRON HCL 4 MG TABS ondansetron hcl 74709003045 Norberto Miller Jr, MD AMOXICILLIN 500 MG CAPS amoxicillin 25615033228 Norberto Miller Jr, MD HYDROMORPHONE HCL 2 MG TABS hydromorphone 94551534306 Norberto Miller Jr, MD YUVAFEM 10 MCG TABS estradiol 76272785099 Norberto Miller Jr, MD VILAZODONE HCL 20 MG TABS vilazodone 24424216286 Norberto Miller Jr, MD VILAZODONE HCL 10 MG TABS vilazodone 20335784585 Norberto Miller Jr, MD ESCITALOPRAM OXALATE 20 MG TABS escitalopram oxalate 03471063455 Norberto Miller Jr, MD BUSPIRONE HCL 15 MG TABS buspirone 54264032745 Norberto Miller Jr, MD TRAZODONE HCL 50 MG TABS trazodone 50030273828 Norberto Miller Jr, MD PREDNISONE 20 MG TABS prednisone 58361927392 Norberto Miller Jr, MD PROPRANOLOL HCL 20 MG TABS 08/10 propranolol 57212351273 Norberto Miller Jr, MD HYDROMORPHONE HCL 2 MG TABS 12/10 hydromorphone 79863302078 Norberto Miller Jr, MD ROPINIROLE HCL 0.25 MG TABS 12/10 ropinirole 33688722864 Norberto Miller Jr, MD ESCITALOPRAM OXALATE 20 MG TABS 12/10 escitalopram oxalate 41890862550 Norberto Miller Jr, MD TYRVAYA 0.03 MG/ACT SOLN 12/10 varenicline 56128495120 Norberto Miller Jr, MD YUVAFEM 10 MCG TABS 12/10 estradiol 92406521638 Norberto Miller Jr, MD CYCLOBENZAPRINE HCL 5 MG TABS Take 1/2-1 tablet by mouth every night at bedtime as directed start with 1/2 tab cyclobenzaprine 65605376742 Norberto Miller Jr, MD ESCITALOPRAM OXALATE 10 MG TABS 12/23 escitalopram oxalate 49845050925 Norberto Miller Jr, MD DULOXETINE HCL 30 MG CPEP 1 every morning 12/23 duloxetine 73100876233 Norberto Miller Jr, MD BUSPIRONE HCL 5 MG TABS 1 twice a day 12/23 buspirone 87874350323 Norberto Miller Jr, MD MELATONIN 10 MG TABS 1 by mouth every night 12/10 melatonin-lemon balm leaf extr 51089167740 Norberto Miller Jr, MD TRAZODONE HCL 50 MG TABS Prescribed by Family 12/23 TRAZODONE HCL Norberto Miller Jr, MD BUSPIRONE HCL 15 MG TABS 12/10 buspirone 64947918479 Norberto Miller Jr, MD ESCITALOPRAM OXALATE 10 MG TABS 12/10 escitalopram oxalate 78301590010 Norberto Miller Jr, MD LORAZEPAM 0.5 MG TABS 12/10 lorazepam 18952043761 Norberto Miller Jr, MD TRIAMCINOLONE ACETONIDE 0.1 % CREA 12/10 triamcinolone acetonide 19599896138 Norberto Miller Jr, MD SULFAMETHOXAZOLE-T RIMETHOPRIM 800-160 MG TABS 12/10 sulfamethoxazole- trimethoprim 53246082097 Norberto Miller Jr, MD PROPRANOLOL HCL 20 MG TABS 08/10 propranolol 22291190318 Norberto Miller Jr, MD LIOTHYRONINE SODIUM 5 MCG TABS 12/10 liothyronine 62377667812 Norberto Miller Jr, MD POLYMYXIN B-TRIMETHOPRIM 52710-0.1 UNIT/ML-% SOLN 12/10 polymyxin b sulf-trimethoprim 91524605567 Norberto Miller Jr, MD DIPHENOXYLATE-ATRO PINE 2.5-0.025 MG TABS 12/10 diphenoxylate-atr opine 23983926289 Norberto Miller Jr, MD LIDOCAINE VISCOUS HCL 2 % SOLN 12/10 lidocaine hcl 00350875783 Norberto Miller Jr, MD TRETINOIN 0.025 % CREA 12/10 tretinoin 41478902037 Norberto Miller Jr, MD SUMATRIPTAN SUCCINATE 25 MG TABS 12/10 sumatriptan succinate 28482578960 Norberto Miller Jr, MD VALACYCLOVIR HCL 1 GM TABS 12/10 valacyclovir 42014912940 Norberto Miller Jr, MD ESCITALOPRAM OXALATE 10 MG TABS 12/23 escitalopram oxalate 49938621567 Belle Jimenez PA-C MELATONIN 10 MG TABS 1 orally QHS 12/23 MELATONIN 32999746106 Norberto Miller Jr, MD CLOBETASOL PROPIONATE 0.05 % CREA Prescribed by Family SALAZAR 09/20 CLOBETASOL PROPIONATE 43592425903 Norberto Miller Jr, MD BETAMETHASONE VALERATE 0.1 % LOTN Prescribed by Family SALAZAR 09/20 BETAMETHASONE VALERATE 48852447167 Norberto Miller Jr, MD CEFUROXIME AXETIL 500 MG TABS Prescribed by Family SALAZAR 09/20 CEFUROXIME AXETIL 29416533470 Norberto Miller Jr, MD ARMOUR THYROID 30 MG TABS Prescribed by Family SALAZAR 09/20 THYROID 82791265223 Norberto Miller Jr, MD SERTRALINE HCL 100 MG TABS Prescribed by Family SALAZAR 09/20 SERTRALINE HCL 33219938569 Norberto Miller Jr, MD WELLBUTRIN XL 150 MG [id number] Prescribed by Family SALAZAR 09/20 BUPROPION HCL 21185159386 Norberto Miller Jr, MD DULOXETINE HCL 30 MG CPEP 1 QAM 12/23 DULOXETINE HCL 04407446084 Norberto Miller Jr, MD BUSPIRONE HCL 5 MG TABS 1 BID 12/23 BUSPIRONE HCL 87357772189 Norberto Miller Jr, MD GABAPENTIN 300 MG CAPS Prescribed by Family SALAZAR GABAPENTIN 51609795684 Norberto Miller Jr, MD CEFUROXIME AXETIL 500 MG TABS Prescribed by Family SALAZAR 08/24 CEFUROXIME AXETIL 99114309851 Zuleyma Cameron ARMOUR THYROID 30 MG TABS Prescribed by Family SALAZAR 09/20 THYROID 38545956114 Zuleyma Cameron GABAPENTIN 300 MG CAPS Prescribed by Family SALAZAR 08/24 GABAPENTIN 89424659661 Zuleyma Cameron SERTRALINE HCL 100 MG TABS Prescribed by Family SALAZAR 09/20 SERTRALINE HCL 50138958298 Zuleyma Cameron WELLBUTRIN XL 150 MG [id number] Prescribed by Family SALAZAR 09/20 BUPROPION HCL 87158078713 Zuleyma Cameron TRAZODONE HCL 50 MG TABS Prescribed by Family SALAZAR 12/23 TRAZODONE HCL 62710703506 Zuleyma Cameron BETAMETHASONE VALERATE 0.1 % LOTN Prescribed by Family SALAZAR 08/24 BETAMETHASONE VALERATE 81587293194 Zuleyma Ly CLOBETASOL PROPIONATE 0.05 % CREA Prescribed by Family SALAZAR 08/24 CLOBETASOL PROPIONATE 15161429047 Zuleyma Cameron Medications Administered No information available. Allergies, Adverse Reactions, Alerts Allergy Name Reaction Description Start Date Severity Statu s Provider GABAPENTIN Worse restlessness; sweats Severe Active Norberto Miller Jr, MD GOLD SALTS Critical Active Norberto wright Jr, MD Results Date Name Value Unit Range Flag Description Internal Other: Authorizatio n - OBS PTSTAUTHDT Done PT Ольга arvizu Authorization Date Lab Report: FERRITIN---44 FERRITIN 44 ng/mL 10-232 N Ferritin [Mass/volume] in Serum or Plasma Internal Other: Authorizatio n - 2016 - OBS HIECONSENT y N Consent To Release information to the [facility] ([facility]) Telemedicine: NTEL NSLE SMOK STATUS former smoker Tob acco smoking status Telemedicine: SUSU FTEL FSLE; MRI review; cont cyclobenz; TMJ eval;Rheum p fax MEDS REVIEW Done Documenta tion of current medications (procedure) Plan of Care Type Date Detail Referral Dental Device Re ferral Pending order Occipital Nerve Block and Trigger Point Injections Pending order Occipital Nerve Block and Trigger Point Injections Pending Order exclud ed from report: Pending order Follow up SUSU te lemedicine Pending Order exclud ed from report: Pending order Follow up SUSU te lemedicine Pending order Patient Instruct ions Pending order Insomnia Handout Pending order Sleep Hygiene Ti ps Handout Pending order Patient Instruct ions Pending order Patient Instruct ions Pending order Other Referral Pending order Instructions for Staff Pending order Other Radiology Pending order Occipital Nerve Block and Trigger Point Injections Pending order Follow up Extend ed telemedicine Pending order Patient Instruct ions Pending order Follow up Sleep SUSU telemedicine Pending order Insomnia Handout Pending order Sleep Hygiene Ti ps Handout Pending order Patient Instruct ions Pending order Pain Clinic Pending order Psychiatry Refer ral Pending order Other Referral Pending order Patient Instruct ions Pending order Lyme Total Ab w/ Reflex (reflex to Western Blot) Pending order TSH Pending order Vitamin B12 Pending order Vitamin D 25 Hyd slim Pending order Patient Instruct ions Pending order Other Referral Pending order Psychology Refer ral Pending order Overnight PSG - Sleep Study Overnight Pending order 2 weeks Actigrap hy Watch w/ Sleep Journals (Call Sleep Lab) Pending order Ferritin Serum Pending order Instructions for Staff Pending order Telemedicine Fol low up Pending order Other Handout Pending order Ferritin Serum Pending order Instructions for Staff Pending order Patient Instruct ions Pending order Patient Instruct ions Pending order Telemedicine Fol low up Pending order Sleep Study - AP NA Pending order Other Referral Pending order T4 Pending order TSH Pending order Vitamin B12 Pending order T3 Free Pending order ALT (SGPT) Pending order Ammonia Pending order KELLEY Pending order AST (SGOT) Pending order Basic Metabolic Panel (8) Pending order CBC no Diff/ Ivonne telet Pending order ESR (Sedimentati on Rate) Pending order Hemoglobin A1C Pending order Lyme Total Ab w/ Reflex (reflex to Western Blot) Pending order Rheumatoid (RA) Factor Pending order Sjogren's Ab - S SA/SSB (ANTI-Ro/ANTI-La) Pending order Vitamin B1 (Thia mine) Pending order Vitamin D 25 Hyd slim Pending order Ferritin Serum Pending order Vitamin B12 Pending order Other Test Pending order Patient Instruct ions Pending order Follow up Pending order Ferritin Serum Pending Order exclud ed from report: Pending order Follow up Pending Order exclud ed from report: Pending order Follow up Pending Order exclud ed from report: Pending order Follow up Pending order Other Test Pending order Patient Instruct ions Pending order Ferritin Serum Pending order Other Test Pending order Follow up Pending order Other Test Pending order Other Referral Pending order Follow up Pending order Other Referral Procedures Code Procedure Name Date Entry Date 57034/41208/39909&53 Occipital Nerve Blo ck and Trigger Point Injections CPT-81861 Trigger point inj (3+ musc) CPT-J1100 Dexamethasone -- 10 mg 04/26 ORDERS Follow up SUSU telemedicine 2 ORDERS Dental Device Referral 12/10 ORDERS Sleep Hygiene Tips Handout 2 ORDERS Insomnia Handout ORDERS Patient Instructions ORDERS Patient Instructions ORDERS Patient Instructions [id number]-[id number] Other Referral ORDERS Instructions for Staff 09/02 ORDERS Follow up Sleep [facility]USU telemedicine ORDERS Patient Instructions CPT-91144 Trigger point inj (3+ musc) CPT-J1100 Dexamethasone -- 10 mg 08/10 [id number] Other Radiology 94823/53874/12421&53 Occipital Nerve Blo ck and Trigger Point Injections ORDERS Follow up Extended telemedicine 1 ORDERS Patient Instructions SCT-[id number] Other Referral [facility]-[id number] Psychiatry Referral ORDERS Pain Clinic ORDERS Insomnia Handout ORDERS Sleep Hygiene Tips Handout 2 ORDERS Patient Instructions CPT-49697 PSG, 4+ parameters w / tech - 6yrs or older (26943) ORDERS Vitamin B12 ORDERS Vitamin D 25 Hydroxy ORDERS Patient Instructions SCT-[id number] Other Referral SCT-[id number] Psychology Referral ORDERS Instructions for Staff 11/28 ORDERS Lyme Total Ab w/Refl ex (reflex to Western Blot) ORDERS TSH ORDERS 2 weeks Actigraphy W atch w/ Sleep Journals (Call Sleep Lab) ORDERS Ferritin Serum ORDERS Overnight PSG - Sleep Study Overnight 07/17/19 ORDERS Telemedicine Follow up 11/08 ORDERS Ferritin Serum [facility]-[id number] Documentation of current medicatio ns ORDERS Other Handout ORDERS Patient Instructions ORDERS Patient Instructions ORDERS Instructions for Staff 11/08 ORDERS Telemedicine Follow up 09/20 CPT-27476 PSG, 4+ parameters w / tech - 6yrs or older (81167) ORDERS Sleep Study - APNA 2 SCT-[id number] Documentation of current medicatio ns ORDERS T4 SCT-[id number] Other Referral ORDERS Lyme Total Ab w/Refl ex (reflex to Western Blot) ORDERS Rheumatoid (RA) Factor 09/20 ORDERS Sjogren's Ab - SSA/SSB (ANTI-Ro/ANTI-La) ORDERS Vitamin B1 (Thiamine) 09/20 ORDERS Vitamin D 25 Hydroxy ORDERS ALT (SGPT) ORDERS Ammonia ORDERS KELLEY ORDERS AST (SGOT) ORDERS Basic Metabolic Panel (8) 20 30/09/11 ORDERS CBC no Diff/ Platelet 09/20 ORDERS ESR (Sedimentation Rate) 202 05/16/11 ORDERS Hemoglobin A1C ORDERS TSH ORDERS Vitamin B12 ORDERS T3 Free CPT-97560 Nerve Conduction 7-8 studies CPT-95280 EMG with NCS (5+ muscles) - 1 limb 11/10 SCT-[id number] Documentation of current medicatio ns ORDERS Ferritin Serum ORDERS Patient Instructions ORDERS Other Test ORDERS Follow up ORDERS Vitamin B12 CPT-00657 Neuropsych assmnt w/ prov 4 hr CPT-3251718 Neuropsych assmnt w/ tech 3 hr ORDERS Follow up ORDERS Patient Instructions SCT-[id number] Documentation of current medicatio ns ORDERS Follow up ORDERS Patient Instructions SCT-[id number] Other Test CPT-20416 PSG, 4+ parameters w / tech - 6yrs or older (42739) CPT-24741 MRI Brain W/O SCT-[id number] Documentation of current medicatio ns SCT-792324787 Other Test SCT-[id number] Documentation of current medicatio ns ORDERS Ferritin Serum SCT-697352216 Other Referral ORDERS Follow up SCT-625415759 Other Test SCT-870591865 Other Referral SCT-[id number] Documentation of current medicatio ns Vital Signs Date Name Value Unit Description Height 69 [in_us] height E&M BMI (Body Mass Index) 22.23 kg/m2 Bod y Mass Index (Ratio) Respiratory Rate 16 /min respirat ory rate E&M Weight Measured 150 [lb_av] weight E& M Weight Measured 68.18 kg weight in kilograms E&M BP Diastolic 70 mm[Hg] blood pressu re, diastolic BP Systolic 98 mm[Hg] blood pressur e, systolic Heart Rate 96 /min pulse rate Immunizations No information available. Advance Directives No information available.
--- OUTSIDE RECORDS SUMMARY | 2024-06-29 16:04 | XMS_ITS | Encounter Summary ---
Author Organization [place] Address [facility] [place] [address] Care Team Providers Care Candy Counter Clerk Name Role Phone Heladio Martins MD Primary Care Provider Kelsi Glez MD Unavailable [phone] Nivia Bruno MD Primary Care Provider [phone] Encounter Details Date Type Department Care Team (Latest Contact Info) Description 03/06/2021 [facility] Treatment Plan [facility] [address] [place] [phone] Dav Tierney MD [address] [place] [address] Megan Ruiz, SHANNON Major depressive [...] on file Legal Sex Female 3:16 AM CHEESE WEIGHER Gender Identity Not on file Sexual Orientation [...] documented as of this encounter Care Teams Candy Counter Clerk Relationship Specialty Start Date End Date Heladio Martins MD PCP - General Internal Medicine 03/05/16 03/21/21 Nivia Bruno MD [address] [facility] [place] [address] PCP - General 03/22/21 Kelsi Handy MD [address] [place] [address] Assigned OBGYN Provider 04/23/20 3 documented as of this encounter
--- OUTSIDE RECORDS SUMMARY | 2024-06-29 16:04 | XMS_ITS | Encounter Summary ---
Author Organization [facility] Address [address], [place] [address] Care Team Providers Care Assistant Professor Of Criminal Justice Name Role Phone Needs Pcp, Assignment Primary Care Provider [phone] Reason for Visit * Auth/Cert Specialty Diagnoses / Procedures Referred By Contac t Referred To Contact Diagnoses Diarrhea of presumed infectious origin Fibromyalgia Diarrhea of presumed infectious origin Fibromyalgia Diarrhea of presumed infectious origin Fibromyalgia Referral ID Status Reason Start Date Expiration Date Visits Re quested Visits Authorized [id number] 1 1 Encounter Details Date Type Department Care Team (Latest Contact Info) Description 07/15/2019 Lab Requisition [facility] [address] [place] [address] Lul Hunter MD [address] [place], [place] [id number] Enterocolitis due to Clostridium difficile, not specified as recurrent Social History Tobacco Use Types Packs/Day Years Used Date Smoking Tobacco: Former Smokeless Tobacco: Never Alcohol Use Standard Drinks/Week Comments No 0 (1 standard drink = 0.6 oz pur e alcohol) Comments No Sex and Gender Information Value Date Recorded Sex Assigned at Not on file Legal Sex Female 11:07 AM CDT Gender Identity Not on file Sexual Orientation Not on file documented as of this encounter Plan of Treatment Not on file documented as of this encounter Procedures Procedure Name Priority Date/Time Associated Diagnosis Comments C.DIFFICILE TOXIN,MOLECULAR DETECTION Routine 07/15/2019 10:00 PM ROUTE DELIVERY DRIVER Enterocolitis due to Clostridium difficile, not specified as recurrent documented in this encounter Results * (ABNORMAL) C.Difficile Toxin,Molecular Detection, (07/15/2019 10:00 PM ROUTE DELIVERY DRIVER) C.difficile Detected(A ) Not Detected 07/15/2019 11:30 PM ROUTE DELIVERY DRIVER [facility] Stool Non-blood Collection / Unknown 07/15/2019 10:00 PM ROUTE DELIVERY DRIVER 07/15/2019 10:24 PM ROUTE DELIVERY DRIVER Narrative [facility] - 07/15/2019 11:30 PM ROUTE DELIVERY DRIVER Methodology: Qualitative real-time PCR assay to detect the Clostridium difficile toxin B gene. us Lul Hunter MD LAB_1 Final Result [facility] [address] [place] [address], [facility] documented in this encounter Visit Diagnoses Diagnosis Enterocolitis due to Clostridium difficile, not specified as recurrent documented in this encounter Care Teams Assistant Professor Of Criminal Justice Relationship Specialty Start Date End Date Needs Pcp, [place] [address] PCP - General 02/28/21 documented as of this encounter
--- OUTSIDE RECORDS SUMMARY | 2024-06-29 16:04 | XMS_ITS | Encounter Summary ---
Author Organization [facility] Address [address] [place] [address] Care Team Providers Care Agricultural Specialist Name Role Phone Needs Pcp, Assignment Primary Care Provider [phone] Encounter Details Date Type Department Care Team (Late st Contact Info) Description 07/16/2019 Lab Requisition [facility] [address] [facility]. [place], [place] [address] Lul Hunter MD [address] [place], [place] [id number] Encounter for surgical aftercare following surgery on [...] organs documented in this encounter Care Teams Agricultural Specialist Relationship Specialty Start Date End Date Needs Pcp, [place] [address] PCP - General 02/28/21 documented as of this encounter
--- OUTSIDE RECORDS SUMMARY | 2024-06-29 16:04 | XMS_ITS | Encounter Summary ---
Author Organization [facility] Address [address] [place] [address] Care Team Providers Care Six Sigma Project Manager Name Role Phone Kelsi Handy MD Unavailable [phone] Nivia Bruno MD Primary Care Provider [phone] Encounter Details Date Type Department Care Team ([facility] Contact Info) Description 06/13/2021 Telephone [facility] Intake [address] [place] [id number] Generic, Behavioral Intake, Social History Tobacco Use Types Packs/Day Years Used Date Smoking Tobacco: Never Smokeless Tobacco: Never Alcohol Use Standard Drinks/Week Comments No 0 (1 standard drink = 0.6 oz pur e alcohol) PHQ-2 Answer Date Recorded PHQ-2 Score 2 06/13/2021 Comments No Sex and Gender Information Value Date Recorded Sex Assigned at Not on file Legal Sex Female 3:16 AM RAILWAY SIGNAL ELECTRICIAN Gender Identity Not on file Sexual Orientation Not on file documented as of this encounter Miscellaneous Notes * Telephone Encounter - Rafael Cota - 06/29/2021 12:06 PM CST ----- Message from KETTY Lynn sent at 06/29/2021 11:41 AM RAILWAY SIGNAL ELECTRICIAN ----- Regarding: new start Clinic 1 on 07/05 Scheduling Request Patient Name: Juliette Brown Location of programmin+ Start Date: June Group: Clinic 1 on at 1:00 to 3:00PM Attending Provider (MD): 12 Number of visits to be scheduled: 12 Duration of Appointment in minutes: 120 min Visit Type: Zoom - 2657 Additional notes: WAY SIGNAL ELECTRICIAN * Telephone Encounter - Jen Serrano - 06/13/2021 9:38 AM CST ----- Message from SHANNON Warner sent at 06/13/2021 9:12 AM RAILWAY SIGNAL ELECTRICIAN ----- Regarding: add appointment Scheduling Request Patient Name: ?? Location of programming: [facility] 55+ Start Date:06/13/21 Group (BHxxxxx on #days of the week# at #start time to end time#): 55+ B1 M,W,F 1-4pm Provider (name of MD): Niall Number of visits to be scheduled: 1 Duration of Appointment in minutes: 180 mins Visit Type (Amwell - 2702 / Zoom - 2657 / In-person or Treatment - 870) :2657-zoom Additional notes: WAY SIGNAL ELECTRICIAN documented in this encounter Plan of Treatment Not on file documented as of this encounter Visit Diagnoses Not on filedocumented in this encounter Additional Health Concerns Assessment Noted Time PHQ-9 Depression Total Score: 7 06/14/19 22 10:59 AM RAILWAY SIGNAL ELECTRICIAN documented as of this encounter Care Teams Six Sigma Project Manager Relationship Specialty Start Date End Date Nivia Bruno MD [address] [place] [address] PCP - General 03/22/21 Kelsi Handy MD [address] [place] [address] Assigned OBGYN Provider 04/23/20 3 documented as of this encounter
--- OUTSIDE RECORDS SUMMARY | 2024-06-29 16:04 | XMS_ITS | Encounter Summary ---
[facility] Address [address], [place] [address] Care Team Providers Care Marketing Proposal Coordinator Name Role Phone Needs Pcp, Assignment Primary Care Provider [phone] Encounter Details Date Type Department Care Team (Late st Contact Info) Description 07/12/2019 Lab Requisition [facility] [address] [facility] [place] [address] Lul Hunter MD [address] [place], [place] [id number] Encounter for surgical aftercare following surgery on [...] BASIC METABOLIC PANEL Routine 07/13/2019 7:00 AM BREAKER MACHINE OPERATOR Encounter for surgical aftercare following surgery on the nervous system COMPLETE BLOOD COUNT-NO DIFF Routine 07/13/2019 7:00 AM BREAKER MACHINE OPERATOR Encounter for surgical aftercare following surgery on the nervous system documented in this encounter Results * (ABNORMAL) Basic Metabolic Panel (07/13/2019 7:00 AM BREAKER MACHINE OPERATOR) Sodium 136 136 - 145 mmol/L 07/13/2019 12:35 PM BREAKER MACHINE OPERATOR [facility] Potassium 4.7 3.5 - 5.1 mmol/L 07/13/2019 12:35 PM BREAKER MACHINE OPERATOR [facility] Chloride 100 98 - 109 mmol/L 07/13/2019 12:35 PM BREAKER MACHINE OPERATOR [facility] CO2 27 20 - 29 mmol/L 07/13/2019 12:35 PM BREAKER MACHINE OPERATOR [facility] Anion Gap 9 7 - 16 mmol/L 07/13/2019 12:35 PM BREAKER MACHINE OPERATOR [facility] Calcium 9.2 8.4 - 10.4 mg/dL 07/13/2019 12:35 PM BREAKER MACHINE OPERATOR [facility] BUN 18 7 - 26 mg/dL 07/13/2019 12:35 PM BREAKER MACHINE OPERATOR [facility] Creatinine 0.76 0.55 - 1.02 mg/dL 07/13/2019 12:35 PM BREAKER MACHINE OPERATOR [facility] GFR, Estimated >60 >60 mL/min/1.7 3m2 07/13/2019 12:35 PM BREAKER MACHINE OPERATOR [facility] GFR, Est If >60 >60 mL/min/1.7 3m2 07/13/2019 12:35 PM BREAKER MACHINE OPERATOR [facility] Glucose 105(H) 70 - 100 mg/dL 07/13/2019 12:35 PM BREAKER MACHINE OPERATOR [facility] Comment:The given reference range is for the fasting state. Non-fasting reference range for glucose is 70 - 180 mg/dL. Hours Fasting Unknown 07/13/2019 12:35 PM BREAKER MACHINE OPERATOR [facility] Blood Venipuncture / Unknown 07/13/2019 7:00 AM BREAKER MACHINE OPERATOR 07/13/2019 10:40 AM BREAKER MACHINE OPERATOR us Lul Hunter MD LAB_1 Final Result [facility] [address] * (ABNORMAL) Complete Blood Count-No Diff (07/13/2019 7:00 AM BREAKER MACHINE OPERATOR) WBC 4.7 3.5 - 10.5 x10(9)/L 07/13/2019 11:17 AM BREAKER MACHINE OPERATOR [facility] RBC 3.19(L) 3.90 - 5.03 x10(12)/L 07/13/2019 11:17 AM BREAKER MACHINE OPERATOR [facility] Hemoglobin 10.1(L) 12.0 - 15.5 g/dL 07/13/2019 11:17 AM BREAKER MACHINE OPERATOR [facility] HCT 31.2(L) 34.9 - 44.5 % 07/13/2019 11:17 AM BREAKER MACHINE OPERATOR [facility] MCV 97.8 80.0 - 100.0 fL 07/13/2019 11:17 AM BREAKER MACHINE OPERATOR [facility] MCH 31.7 27.6 - 33.3 pg 07/13/2019 11:17 AM BREAKER MACHINE OPERATOR [facility] MCHC 32.4 31.5 - 35.2 g/dL 07/13/2019 11:17 AM BREAKER MACHINE OPERATOR [facility] RDW 11.7(L) 11.9 - 15.5 % 07/13/2019 11:17 AM BREAKER MACHINE OPERATOR [facility] Platelets 221 150 - 450 x10(9)/L 07/13/2019 11:17 AM BREAKER MACHINE OPERATOR [facility] Automated NRBC 0 <=0 /100 WBC 07/13/2019 11:17 AM BREAKER MACHINE OPERATOR [facility] Blood Venipuncture / Unknown 07/13/2019 7:00 AM BREAKER MACHINE OPERATOR 07/13/2019 10:44 AM BREAKER MACHINE OPERATOR us Lul Hunter MD LAB_1 Final Result Performing Organization Address City/State/[facility] Co de Phone Number [facility] [address] [place] [address], [facility] documented in this encounter Visit Diagnoses Diagnosis Encounter for surgical aftercare following surgery on the nervous system documented in this encounter Care Teams Marketing Proposal Coordinator Relationship Specialty Start Date End [place] [address] PCP - General 02/28/21 documented as of this encounter
--- OUTSIDE RECORDS SUMMARY | 2024-06-29 16:04 | XMS_ITS | Clinical Summary ---
Author Organization [facility] Address [address] [place] [address] Care Team Providers Care Remote Operations Producer Name Role Phone Needs Pcp, Assignment Primary Care Provider [phone] Source Comments You are receiving this document as you are listed as the primary care provider,follow-up provider, or the patient has been referred to you for consultation.This is in compliance with the Medicare and[facility] EHR Incentive Program,which states Providers who transition their patient to another setting of careor provider of care or refers their patient to another provider of care shouldprovide summary care record for each transition of care or referral. [facility] Allergies Active Allergy Reactions Criticality Noted Date Comments Auranofin 12/10/1999 PN: LW Reaction: gold shots-hives Gadolinium Other, see comments 12/10/1999 Other reaction(s): Other (see comments) PN: LW CM1: CONTRAST- nka Reaction : PN: LW CM1: CONTRAST- nka Reaction : Other Anaphylaxis High 12/10/1999 PN: LW Other1: -nka Allergy to Gold Shots Review Food Intolerance 12/10/1999 Gluten sensitive not, intolerant. Medications * This document contains information received from the source organization and may not represent a complete record from that organization. omega-3 fatty acids (FISH OIL) 1000 MG capsuleIndicatio ns:supplement Take 1 Capsule by mouth daily. Indications: supplement 90 capsule 0 10/24/19 12 Active aspirin 325 MG tabletIndication s:clot prevention Take 325 mg by mouth daily. Indications: clot prevention Active busPIRone (BUSPAR) 10 MG tabletIndication s:Anxiety Disorder Take 20 mg by mouth two times a day. Indications: Anxiety Disorder Active ALBUterol 1.25 mg/3 mL (ACCUNEB) 1.25 MG/3ML nebulizer solutionIndicati ons:lung health Inhale 1.25 mg every 6 hours as needed for Wheezing. Indications: lung health Active ALBUterol sulfate HFA 108 (90 Base) MCG/ACT inhaler Inhale 1-2 Puffs every 4 hours as needed for Wheezing. Active Multiple Minerals-Vitamin s (CALCIUM-MAGNESI UM-ZINC-D3) TABSIndications: supplement Take 1 Tablet by mouth daily. Indications: supplement Active cholecalciferol (VITAMIN D3) 25 MCG (1000 UT) tabletIndication s:supplement Take 1,000 Units by mouth daily. Indications: supplement Active DULoxetine (CYMBALTA) 60 MG capsuleIndicatio ns:Generalized Anxiety Disorder Take 60 mg by mouth two times a day. Indications: Generalized Anxiety Disorder Active ferrous sulfate 325 (65 Fe) MG tabletIndication s:Iron Deficiency Anemia Take 325 mg by mouth daily with breakfast. Indications: Anemia From Inadequate Iron in the Body Active multivitamin with minerals tabletIndication s:supplement Take 1 Tablet by mouth daily. Indications: supplement Active traZODone (DESYREL) 50 MG tabletIndication s:Insomnia Take 100 mg by mouth daily at bedtime. Indications: Trouble Sleeping Active melatonin 5 MG tabletIndication s:Insomnia Take 10 mg by mouth daily at bedtime. Indications: Trouble Sleeping Active sodium chloride (OCEAN) 0.65 % nasal solution Place 1 Ladd into both nostrils every 2 hours as needed for Congestion. Active bacitracin-polym yxin b (POLYSPORIN) [id number] UNIT/GM ointmentIndicati ons:dry nose Apply topically two times a day. To nares Indications: dry nose Active tretinoin (RETIN-A) 0.025 % creamIndications :skin damage Apply topically daily at bedtime. Indications: skin damage Active lidocaine (ASPERCREAM) 4 % patch Apply 2 Patches to skin daily. Leave on for up to 12 hours in a 24 hour period, then remove. 07/10/19 20 Active Abaloparatide (TYMLOS) 3120 MCG/1.56ML SOPN Inject 80 mcg subcutaneously daily. This medication is on HOLD. 3 Pen 3 07/18/19 20 Active acetaminophen (TYLENOL) 325 MG tablet Take 2 Tablets by mouth every 6 hours as needed for Pain. Maximum acetaminophen dose is 4000 mg in 24 hours 07/18/19 20 Active HYDROmorphone (DILAUDID) 2 MG tablet Take 1 Tablet by mouth every 4 hours as needed for Pain. 20 Tablet 07/18/19 20 Active lactobacillus (FLORANEX) PACK packetIndication s:gut health Take 1 Packet by mouth three times a day with meals. Or similar probiotic Indications: gut health 07/18/19 20 Active LORazepam (ATIVAN) 0.5 MG tabletIndication s:Anxiety Take 1 Tablet by mouth every 6 hours as needed for Anxiety. Indications: Feeling Anxious 10 Tablet 07/18/19 20 Active polyethylene glycol (MIRALAX) packet Take 1 Packet by mouth daily as needed for Constipation. 07/18/19 20 Active psyllium powder (METAMUCIL) 58.12 % packetIndication s:regularity Take 1 Packet by mouth daily. Indications: regularity 07/19/19 20 Active senna (SENOKOT) 8.6 MG tabletIndication s:Constipation Take 1 Tablet by mouth two times daily as needed for Constipation. Indications: Constipation 30 Tablet 07/18/19 20 Active TYMLOS 3120 MCG/1.56ML SOPN Inject 80mcg subcutaneously once daily 3 Pen 3 06/15/19 21 Active testosterone 0.2 % in aquaphor Apply to affected area qhs 30 g 3 06/28/19 21 Active betamethasone dipropionate (DIPROLENE AF) 0.05 % AUGMENTED ointment Apply to affected area q am 50 g 2 06/28/19 21 Active Active Problems Problem Noted Date Diagnosed [...] (06/14/2019): Added automatically from request for surgery [id number] Sarcoidosis, lung 06/01/2019 Recurrent major depressive disorder [...] Date Resolved Date Diarrhea 07/15/2019 07/17/2019 Immunizations Immunization Administration Dates Next Due Flu Vac Preserv [...] (145 lb 12.8 oz) 07/16/2019 9:00 PM EMERGENCY OPERATOR Height 172.7 cm (5' 8) 07/15/2019 9:30 PM EMERGENCY OPERATOR Body Mass Index 22.17 07/15/2019 9:30 PM EMERGENCY OPERATOR Plan of Treatment Health Maintenance Due Date Last Done Comments Cervical Cancer Screening Due 1960 Colon Cancer Screening Plan Due 1960 Medicare Annual Wellness Visit 1960 Cholesterol 2004 Pneumococcal 50+ Yrs (2 of 2 - PCV) 03/25/2018 03/25/2017, 07/11/2009, 07/11/2009, Additional history exists COVID-19 Vaccine ( season) 2024 06/11/2023, 08/21/2021, 02/21/2021, Additional history exists Influenza (#1) 2024 03/16/2022, 03/12, 02/24/2020, Additional history exists Mammogram 07/31/2024 08/01/2023, 06/2022, 05/10/2021, Additional history exists DTaP/Tdap/Td (4 - Tdap) 05/31/2026 05/31/19 17, 09/30/2005, 09/30/2005 RSV (1 - 1-dose 75+ series) 2034 HepA Aged Out 04/27/2008 No longer eligi ble based on patient's age to complete this topic Hep C Screening (Preventive Services) Completed 08/25/2018 [...] on patient's age to complete this topic Meningococcal B Aged Out No longer el igible based on patient's age to complete this topic Medical Devices Implanted Type Area Striker Out Device Identifier Shelf Expiration Date Model / Serial / Lot Chip Canc Crouton 30cc - [id number] Implanted:Qty: 1 on 07/07/2019 by Tobias Martin MD at [facility] DEVICE Right: LEG [employer] - [employer] 06/30/2023 [id number] / [id number] / [id number] Chip Canc Crouton 30cc - [id number] Implanted:Qty: 1 on 07/07/2019 by Tobias Martin MD at [facility] DEVICE Right: LEG [employer] - [employer] 06/30/2023 [id number] / [id number] / [id number] Procedures Procedure Name Priority Date/Time Associated Diagnosis Comments HEPATITIS C ANTIBODY, WITH REFLEX Routine 08/25/2018 11:24 AM CDT Multiple joint pain MM MAMMOGRAM SCREENING BILAT W CAD Routine 10/27/2007 2:51 PM CDT from Last 3 Months or Most Recently Relevant to Health Maintenance Results * HCAB - Hepatitis C Virus Paula with Reflex In-House (08/25/2018 11:24 AM CDT) Hepatitis C Antibody Negative (Non Reactive) Negative (Non Reactive) 08/25/2018 4:34 PM CDT [facility] Comment:Antibodies to HCV no t detected. Does not exclude the possiblity of exposure to HCV. Blood Venipuncture / Unknown 08/25/2018 11:24 AM CDT 08/25/2018 11:24 AM CDT us Carin Rianey MD LAB_1 Final Resul t [facility] [address] [place] [address], [place] * MM Mammogram Screening Bilat W CAD [...] BRADY MD Lizzy Chun DO RAD CORNELIO Final Resu lt from Last 3 Months or Most Recently Relevant to Health Maintenance Insurance [facility] [address] [facility] [place] [address] MEDICARE BCBS MEDICARE SUPPLEMENT [place] [id number] MEDICARE BCBS MEDICARE SUPPLEMENT Advance Directives Documents on File Type Date Recorded Patient Pinball Machine Repairer Expl anation HEALTHCARE DIRECTIVE 07/10/2019 ADVANCE D DIRECTIVE 07/10/2019 * Full Code (Latest Code Status on File) Date Activated Date Inactivated Comments 07/15/2019 9:18 PM 07/20/2019 4:20 PM * Full Code Date Activated Date Inactivated Comments 07/07/2019 4:33 PM 07/10/2019 6:22 PM Care Teams Remote Operations Producer Relationship Specialty Start Date End Date Needs Pcp, [place] [address] PCP - General 02/28/21
[2024-06-29 16:05] VITALS: BP 139/77; PULSE 89; RESP 18; TEMP 36.2; O2SAT 97; BMI 26.6
--- NOTE | 2024-06-29 17:18 | ED.PSYCH ---
HPI - Psych General Date Seen: 06/29/24 Chief Complaint: Psychiatric Problem/Disorder Stated Complaint: Thinks she has bugs inside her Time Seen by Provider: 06/29/24 16:04 Source: patient Mode of arrival: ambulatory Limitations: no limitations History of Present Illness HPI Narrative: patient is a 64-year-old female presenting to emergency department. Because she believe she has bugs throughout her body. She states she seeing bugs come out of her anus and has multiple pieces the tape that a covered in bugs. She also states she has she phoned worms and has multiple bug bites throughout her body. Is claiming that her pant legs are currently covered in bugs and she had a tick that was embedded in her right wrist that she had to dig out. States this happened after she got andrade from a local flower shop. She also states she ingested bugs from her coffee pot. Related Data Home Medications ?Medication ?Instructions ?Recorded ?Confirmed clobetasol 0.05 % topical ointment 1 applic topical .qod 11/21/21 02/06/24 liothyronine 5 mcg tablet 5 mcg PO .B.i.d. 11/21/21 02/06/24 lorazepam 0.5 mg tablet 0.5 mg PO Q12H PRN 12/08/21 02/06/24 melatonin 3 mg capsule 9 mg PO HS 12/08/21 02/06/24 trazodone 50 mg tablet 100 mg PO QHS PRN 01/17/23 02/06/24 buspirone 15 mg tablet 15 mg PO BID 03/25/23 02/06/24 cyclosporine 0.05 % eye drops in a drp ophthalmic (eye) 03/25/23 02/06/24 dropperette lidocaine HCl 2 % mucosal solution PO 03/25/23 02/06/24 (Lidocaine Viscous) tretinoin 0.025 % topical cream 1 applic topical QPM 03/25/23 02/06/24 valacyclovir 1 gram tablet 1,000 mg PO 3XD 03/25/23 02/06/24 varenicline tartrate 0.03 mg/spray intranasal 03/25/23 02/06/24 metered nasal spray (Tyrvaya) cyclobenzaprine 5 mg tablet 5 mg PO QPM PRN 09/17/23 02/06/24 vilazodone 20 mg tablet 20 mg PO DAILY 11/10/23 02/06/24 rosuvastatin 5 mg tablet 5 mg PO DAILY 02/04/24 02/06/24 Previous Rx's ?Medication ?Instructions ?Recorded Lactobacillus acidophilus 0.5 mg 1 tab PO TIDWM 90 days #90 tabs 12/10/21 (100 million cell) tablet hydromorphone 2 mg tablet 2 mg PO Q4H PRN 5 days #30 tabs 12/10/21 albuterol sulfate 90 mcg/actuation 2 puff inhalation Q4-6H PRN 03/05/23 aerosol inhaler shortness of breath or wheezing #8.5 grams triamcinolone acetonide 0.025 % 1 applic topical BID #15 grams 03/25/23 topical cream estradiol 10 mcg vaginal tablet 10 mcg vaginal 2XW #24 tabs 11/04/23 (Yuvafem) estradiol 1 mg tablet 0.5 mg (1/2 x 1 mg) PO QDAY #45 11/05/23 tabs ondansetron HCl 4 mg tablet 4 mg PO Q6H #10 tabs 11/11/23 fluconazole 150 mg tablet 150 mg PO Q3D 2 doses #2 tabs 02/06/24 progesterone micronized 100 mg 100 mg PO QHS #90 caps 04/27/24 capsule Allergies Allergy/AdvReac Type Severity Reaction Status Date / Time auranofin Allergy Verified 01/09/24 11:25 cat dander Allergy Verified 01/09/24 11:25 Gadolinium-Containing Allergy Verified 01/09/24 11:25 Contrast Medi gluten Allergy Verified 01/09/24 11:25 gold keratinate Allergy Verified 01/09/24 11:25 gold sodium thiomalate Allergy Verified 01/09/24 11:25 ketamine Allergy Verified 02/06/24 16:42 lactose Allergy Verified 01/09/24 11:25 Opioids - Morphine Analogues Allergy Verified 01/09/24 11:25 goldshots Allergy Severe Anaphylaxis Uncoded 01/09/24 11:25 Review of Systems Narrative: Pertinent systems reviewed and were negative unless stated in HPI PFSH PFS Medical History Herpes zoster ?B02.9 - Zoster without complications (ICD-10) Diverticulitis ?K57.92 - Diverticulitis of intestine, part unspecified, without perforation or abscess without bleeding (ICD-10) Closed T12 fracture ?S22.089A - Unspecified fracture of T11-T12 vertebra, initial encounter for closed fracture (ICD-10) History of Clostridioides difficile colitis ?Z86.19 - Personal history of other infectious and parasitic diseases (ICD-10) History of hypothyroidism ?Z86.39 - Personal history of other endocrine, nutritional and metabolic disease (ICD-10) History of diverticulitis of colon (05/09/11) ?Z87.19 - Personal history of other diseases of the digestive system (ICD-10) History of Clostridioides difficile infection ?Z86.19 - Personal history of other infectious and parasitic diseases (ICD-10) Abscess of sigmoid colon due to diverticulitis ?K57.20 - Diverticulitis of large intestine with perforation and abscess without bleeding (ICD-10) Osteoporosis ?M81.0 - Age-related osteoporosis without current pathological fracture (ICD-10) Sigmoid diverticulitis ?K57.32 - Diverticulitis of large intestine without perforation or abscess without bleeding (ICD-10) History of femur fracture ?Z87.81 - Personal history of (healed) traumatic fracture (ICD-10) Insomnia ?G47.00 - Insomnia, unspecified (ICD-10) Anxiety ?F41.9 - Anxiety disorder, unspecified (ICD-10) Sarcoidosis ?D86.9 - Sarcoidosis, unspecified (ICD-10) Hypothyroidism ?E03.9 - Hypothyroidism, unspecified (ICD-10) Sensorineural hearing loss (SNHL) of both ears ?H90.3 - Sensorineural hearing loss, bilateral (ICD-10) Depression ?F32.A - Depression, unspecified (ICD-10) Chronic fatigue syndrome ?R53.82 - Chronic fatigue, unspecified (ICD-10) 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 - Unspecified juvenile rheumatoid arthritis of unspecified site (ICD-10) Migraines ?G43.909 - Migraine, unspecified, not intractable, without status migrainosus (ICD-10) Diverticulitis of intestine with abscess ?K57.80 - Diverticulitis of intestine, part unspecified, with perforation and abscess without bleeding (ICD-10) Surgical History History of total knee replacement ?Z96.659 - Presence of unspecified artificial knee joint (ICD-10) S/P hammer toe correction ?Z98.890 - Other specified postprocedural states (ICD-10) ?Z87.39 - Personal history of other diseases of the musculoskeletal system and connective tissue (ICD-10) History of repair of rotator cuff ?Z98.890 - Other specified postprocedural states (ICD-10) History of tonsillectomy ?Z90.89 - Acquired absence of other organs (ICD-10) History of total hip arthroplasty ?Z96.649 - Presence of unspecified artificial hip joint (ICD-10) History of bilateral knee arthroplasty ?Z96.653 - Presence of artificial knee joint, bilateral (ICD-10) Family History Father High blood pressure Hyperlipidemia Mother High blood pressure Hyperlipidemia Sister Seizure disorder Social History Narrative: She lives alone in [place]. 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 She does not smoke. She drinks alcohol about once a month. She uses no recreational drugs. She does have a history of chemical dependency. Healthcare power of home performance consultant is her sister Denise. Code status is full. Are you following a special diet: Yes (no gluten, lactose intolerent) Highest level of school completed/degree received: Master's degree Smoking Status: Never smoker Do you use any of these nicotine containing products: None Second hand tobacco smoke exposure: No How often do you have a drink containing alcohol: monthly or less AUDIT-C Alcohol total score: 1 Non-prescribed substance use: denies use Caffeine: Yes (coffee 3x weekly) Are you now , , , , never or living with a partner: Social isolation score (0-1 are the most socially isolated patients): 0 Are you currently sexually active: No service: No Exam Narrative: Exam Narrative: Const: Well-nourished, Well-developed, in No distress Eyes: PERRL, no conjunctival injection, and symmetrical lids HENT: Atraumatic external nose and ears. Moist mucous membranes. Neck: Symmetric, trachea midline, No thyromegaly. CVS: RRR, No murmurs or gallops. Peripheral pulses 2+ and equal in all extremities RESP: Unlabored respiratory effort. Clear to auscultation bilaterally. GI: Nontender/Nondistended, No rebound or guarding. MSK:Extremities w/o deformity, Normal Active ROM Skin: has a lesion to right wrist that appears like she dug the skin out and a scratch to her left chest. Neuro: Normal Muscle tone, No focal neurological deficits. Psych: Awake, Alert, & Oriented x3. Const: Vital Signs, click to edit/add: Vital Signs - 24 hr 06/29/24 16:05 Temperature 97.2 F L Pulse Rate [Right Pulse Oximeter] 89 Respiratory Rate 18 Blood Pressure [Ri ght Upper Arm] 139/77 Pulse Oximetry 97 Oxygen Delivery Me thod Room Air Course Vital Signs Vital signs: Initial Vital Signs Temperature 97.2 F L 06/29/24 16:05 Temperature Source Temporal Artery Scan 06/29/24 16:05 Pulse Rate 89 06/29/24 16:05 Pulse Rhythm Regular 06/29/24 16:05 Pulse Strength 3+ Normal 06/29/24 16:05 Respiratory Rate 18 06/29/24 16:05 Blood Pressure 139/77 06/29/24 16:05 Blood Pressure Mean 97 06/29/24 16:05 Blood Pressure Position Sitting 06/29/24 16:05 Pulse Oximetry 97 06/29/24 16:05 Oxygen Delivery Method Room Air 06/29/24 16:05 Vital Signs Temperature 97.2 F L 06/29/24 16:05 Pulse Rate 89 06/29/24 16:05 Respiratory Rate 18 06/29/24 16:05 Blood Pressure 139/77 06/29/24 16:05 Pulse Oximetry 97 06/29/24 16:05 Oxygen Delivery Method Room Air 06/29/24 16:05 Temperature 97.2 F L 06/29/24 16:05 Pulse Rate 89 06/29/24 16:05 Respiratory Rate 18 06/29/24 16:05 Blood Pressure 139/77 06/29/24 16:05 Pulse Oximetry 97 06/29/24 16:05 Oxygen Delivery Method Room Air 06/29/24 16:05 MDM - Psych MDM Narrative Medical decision making narrative: patient is a 64-year-old female presenting for concerns that she has bugs throughout her body. She showed me a bagel with a worm which appears to be a small clear plastic tube. She also states she has buttocks on toilet paper she has. Me and nurse both did not see any bugs. Everything she is Saint is a but appears to just be dust. She states her pant legs are covered in white bugs currently but this appears to be just lint. I do believe this is most likely a psychiatric issue when I informed her of this she became very aggressive toward me and upset. She states she is not crazy and this is all bugs and she needs her stools tested. We will do a stool sample since she did provide 1 for us to look for ova and parasites but I informed her this will take a few days to return. At this time she is not open to speaking to Psychiatry Or to be started on medication. She is not appear to be a threat to herself or others I do not believe she is admittable. She will be discharged Discharge Plan Discharge Clinical Impression: Fear of parasites Patient Disposition: Home, Self-Care Condition: Stable Additional Instructions: the results of your stool sample will return in 2-3 days. We will call you back if the results are positive. Prescriptions: No Action trazodone 50 mg tablet 100 mg PO QHS PRN Tyrvaya 0.03 mg/spray spray, metered, non-aerosol intranasal Patient Comments: [NO ORIGINAL SIG] cyclosporine 0.05 % dropperette ophthalmic (eye) lidocaine HCl [Lidocaine Viscous] 2 % solution PO tretinoin 0.025 % cream 1 applic topical QPM buspirone 15 mg tablet 15 mg PO BID valacyclovir 1 gram tablet 1,000 mg PO 3XD triamcinolone acetonide 0.025 % cream 1 applic topical BID Qty: 15 0RF Rx Instructions: Apply small amount to affected area cyclobenzaprine 5 mg tablet 5 mg PO QPM PRN vilazodone 20 mg tablet 20 mg PO DAILY fluconazole 150 mg tablet 150 mg PO Q3D Qty: 2 0RF Rx Instructions: may repeat second dose 72 hrs after first dose if symptoms persist albuterol sulfate 90 mcg/actuation HFA aerosol inhaler 2 puff inhalation Q4-6H PRN (Reason: shortness of breath or wheezing) Qty: 8.5 0RF estradiol [Yuvafem] 10 mcg tablet 10 mcg vaginal 2XW Qty: 24 3RF ondansetron HCl 4 mg tablet 4 mg PO Q6H Qty: 10 0RF rosuvastatin 5 mg tablet 5 mg PO DAILY liothyronine 5 mcg tablet 5 mcg PO .B.i.d. clobetasol 0.05 % ointment 1 applic TOPICAL .qod lorazepam 0.5 mg tablet 0.5 mg PO Q12H PRN melatonin 3 mg capsule 9 mg PO HS hydromorphone 2 mg Tablet 2 mg PO Q4H PRN5 Days Qty: 30 0RF Lactobacillus acidophilus 0.5 mg (100 million cell) Tablet 1 tab PO TIDWM 90 Days Qty: 90 0RF estradiol 1 mg tablet 0.5 mg PO QDAY Qty: 45 3RF Rx Instructions: Take 1/2 tab (0.5 mg) daily. progesterone micronized 100 mg capsule 100 mg PO QHS Qty: 90 2RF Follow Up/Referrals: Nivia Bruno MD [Primary Care Provider] - Stand Alone Forms: MyHealth Info Instructions
--- OUTSIDE RECORDS SUMMARY | 2024-06-29 17:23 | XMS_ITS | Encounter Summary ---
Author Organization [facility] Address [address] [place] [id number] Care Team Providers Care Fine Arts Instructor Name Role Phone Kelsi Handy MD Unavailable [phone] Nivia Bruno MD Primary Care Provider [phone] Encounter Details Date Type Department Care Team ([facility] Contact Info) Description 09/25/2021 Telephone [facility] Behavioral Health Intake [address] [place] [phone] Generic, Behavioral Intake, Social History Tobacco Use Types Packs/Day Years Used Date Smoking Tobacco: Never Smokeless Tobacco: Never Alcohol Use Standard Drinks/Week Comments No 0 (1 standard drink = 0.6 oz pur e alcohol) PHQ-2 Answer Date Recorded PHQ-2 Score 2 06/13/2021 Comments No Sex and Gender Information Value Date Recorded Sex Assigned at Not on file Legal Sex Female 3:16 AM LIBRARY CUSTOMER SERVICE CLERK Gender Identity Not on file Sexual Orientation Not on file documented as of this encounter Miscellaneous Notes * Telephone Encounter - Rafael Cota - 09/25/2021 12:00 PM CDT ----- Message from SHANNON Warner sent at 09/25/2021 11:03 AM CDT ----- Regarding: add appointment Scheduling Request Patient Name: ?? Location of programming: [facility] Start Date: 09/27/21 Group (BHxxxxx on #days of the week# at #start time to end time#): 55+ clinic 1 Provider (name of MD):kerry Number of visits to be scheduled: 1 Duration of Appointment in minutes: 120 mins Visit Type (Amwell - 9152 / Zoom - 2657 / In-person or Treatment - 870) :zoom 2657 Additional notes: documented in this encounter Plan of Treatment Not on file documented as of this encounter Visit Diagnoses Not on filedocumented in this encounter Additional Health Concerns Assessment Noted Time PHQ-9 Depression Total Score: 7 06/14/19 22 10:59 AM LIBRARY CUSTOMER SERVICE CLERK documented as of this encounter Care Teams Fine Arts Instructor Relationship Specialty Start Date End Date Nivia Bruno MD [address] [place] [address] PCP - General 03/22/21 Kelsi Handy MD [address] [place] [address] Assigned OBGYN Provider 04/23/20 3 documented as of this encounter
--- OUTSIDE RECORDS SUMMARY | 2024-06-29 17:23 | XMS_ITS | Encounter Summary ---
Author Organization [facility] Address [address], [place] [address] Care Team Providers Care Rn Transitional Care Name Role Phone Needs Pcp, Assignment Primary Care Provider [phone] Encounter Details Date Type Department Care Team (Late st Contact Info) Description 07/12/2019 Lab Requisition [facility] [address] [facility] [place] [address] Lul Hunter MD [address] [place], [place] [id number] Encounter for surgical aftercare following surgery on [...] BASIC METABOLIC PANEL Routine 07/13/2019 7:00 AM SAND CASTER APPRENTICE Encounter for surgical aftercare following surgery on the nervous system COMPLETE BLOOD COUNT-NO DIFF Routine 07/13/2019 7:00 AM SAND CASTER APPRENTICE Encounter for surgical aftercare following surgery on the nervous system documented in this encounter Results * (ABNORMAL) Basic Metabolic Panel (07/13/2019 7:00 AM SAND CASTER APPRENTICE) Sodium 136 136 - 145 mmol/L 07/13/2019 12:35 PM SAND CASTER APPRENTICE [facility] Potassium 4.7 3.5 - 5.1 mmol/L 07/13/2019 12:35 PM SAND CASTER APPRENTICE [facility] Chloride 100 98 - 109 mmol/L 07/13/2019 12:35 PM SAND CASTER APPRENTICE [facility] CO2 27 20 - 29 mmol/L 07/13/2019 12:35 PM SAND CASTER APPRENTICE [facility] Anion Gap 9 7 - 16 mmol/L 07/13/2019 12:35 PM SAND CASTER APPRENTICE [facility] Calcium 9.2 8.4 - 10.4 mg/dL 07/13/2019 12:35 PM SAND CASTER APPRENTICE [facility] BUN 18 7 - 26 mg/dL 07/13/2019 12:35 PM SAND CASTER APPRENTICE [facility] Creatinine 0.76 0.55 - 1.02 mg/dL 07/13/2019 12:35 PM SAND CASTER APPRENTICE [facility] GFR, Estimated >60 >60 mL/min/1.7 3m2 07/13/2019 12:35 PM SAND CASTER APPRENTICE [facility] GFR, Est If >60 >60 mL/min/1.7 3m2 07/13/2019 12:35 PM SAND CASTER APPRENTICE [facility] Glucose 105(H) 70 - 100 mg/dL 07/13/2019 12:35 PM SAND CASTER APPRENTICE [facility] Comment:The given reference range is for the fasting state. Non-fasting reference range for glucose is 70 - 180 mg/dL. Hours Fasting Unknown 07/13/2019 12:35 PM SAND CASTER APPRENTICE [facility] Blood Venipuncture / Unknown 07/13/2019 7:00 AM SAND CASTER APPRENTICE 07/13/2019 10:40 AM SAND CASTER APPRENTICE us Lul Hunter MD LAB_1 Final Result [facility] [address] * (ABNORMAL) Complete Blood Count-No Diff (07/13/2019 7:00 AM SAND CASTER APPRENTICE) WBC 4.7 3.5 - 10.5 x10(9)/L 07/13/2019 11:17 AM SAND CASTER APPRENTICE [facility] RBC 3.19(L) 3.90 - 5.03 x10(12)/L 07/13/2019 11:17 AM SAND CASTER APPRENTICE [facility] Hemoglobin 10.1(L) 12.0 - 15.5 g/dL 07/13/2019 11:17 AM SAND CASTER APPRENTICE [facility] HCT 31.2(L) 34.9 - 44.5 % 07/13/2019 11:17 AM SAND CASTER APPRENTICE [facility] MCV 97.8 80.0 - 100.0 fL 07/13/2019 11:17 AM SAND CASTER APPRENTICE [facility] MCH 31.7 27.6 - 33.3 pg 07/13/2019 11:17 AM SAND CASTER APPRENTICE [facility] MCHC 32.4 31.5 - 35.2 g/dL 07/13/2019 11:17 AM SAND CASTER APPRENTICE [facility] RDW 11.7(L) 11.9 - 15.5 % 07/13/2019 11:17 AM SAND CASTER APPRENTICE [facility] Platelets 221 150 - 450 x10(9)/L 07/13/2019 11:17 AM SAND CASTER APPRENTICE [facility] Automated NRBC 0 <=0 /100 WBC 07/13/2019 11:17 AM SAND CASTER APPRENTICE [facility] Blood Venipuncture / Unknown 07/13/2019 7:00 AM SAND CASTER APPRENTICE 07/13/2019 10:44 AM SAND CASTER APPRENTICE us Lul Hunter MD LAB_1 Final Result Performing Organization Address City/State/[facility] Co de Phone Number [facility] [address] [place] [address], [facility] documented in this encounter Visit Diagnoses Diagnosis Encounter for surgical aftercare following surgery on the nervous system documented in this encounter Care Teams Rn Transitional Care Relationship Specialty Start Date End [place] [address] PCP - General 02/28/21 documented as of this encounter
--- OUTSIDE RECORDS SUMMARY | 2024-06-29 17:23 | XMS_ITS | Encounter Summary ---
Author Organization [facility] Address [address] [place] [address] Care Team Providers Care Data Entry Machine Operator Name Role Phone Kelsi Handy MD Unavailable [phone] Nivia Bruno MD Primary Care Provider [phone] Encounter Details Date Type Department Care Team ([facility] Contact Info) Description 06/13/2021 Telephone [facility] Behavioral Health Intake [address] [place] [phone] Generic, Behavioral Intake, Social History Tobacco Use Types Packs/Day Years Used Date Smoking Tobacco: Never Smokeless Tobacco: Never Alcohol Use Standard Drinks/Week Comments No 0 (1 standard drink = 0.6 oz pur e alcohol) PHQ-2 Answer Date Recorded PHQ-2 Score 2 06/13/2021 Comments No Sex and Gender Information Value Date Recorded Sex Assigned at Not on file Legal Sex Female 3:16 AM GLUE SPECIALTY SUPERVISOR Gender Identity Not on file Sexual Orientation Not on file documented as of this encounter Miscellaneous Notes * Telephone Encounter - Rafael Cota - 06/29/2021 12:06 PM CST ----- Message from KETTY Lynn sent at 06/29/2021 11:41 AM GLUE SPECIALTY SUPERVISOR ----- Regarding: new start Clinic 1 on 07/05 Scheduling Request Patient Name: Juliette Brown Location of programmin+ Start Date: June Group: Clinic 1 on at 1:00 to 3:00PM Attending Provider (MD): 12 Number of visits to be scheduled: 12 Duration of Appointment in minutes: 120 min Visit Type: Zoom - 2657 Additional notes: SPECIALTY SUPERVISOR * Telephone Encounter - Jen Serrano - 06/13/2021 9:38 AM CST ----- Message from SHANNON Warner sent at 06/13/2021 9:12 AM GLUE SPECIALTY SUPERVISOR ----- Regarding: add appointment Scheduling Request Patient Name: ?? Location of programming: [facility] 55+ Start Date:06/13/21 Group (BHxxxxx on #days of the week# at #start time to end time#): 55+ B1 M,W,F 1-4pm Provider (name of MD): Niall Number of visits to be scheduled: 1 Duration of Appointment in minutes: 180 mins Visit Type (Amwell - 2702 / Zoom - 2657 / In-person or Treatment - 870) :2657-zoom Additional notes: SPECIALTY SUPERVISOR documented in this encounter Plan of Treatment Not on file documented as of this encounter Visit Diagnoses Not on filedocumented in this encounter Additional Health Concerns Assessment Noted Time PHQ-9 Depression Total Score: 7 06/14/19 22 10:59 AM GLUE SPECIALTY SUPERVISOR documented as of this encounter Care Teams Data Entry Machine Operator Relationship Specialty Start Date End Date Nivia Bruno MD [address] [place] [address] PCP - General 03/22/21 Kelsi Handy MD [address] [place] [address] Assigned OBGYN Provider 04/23/20 3 documented as of this encounter
--- OUTSIDE RECORDS SUMMARY | 2024-06-29 17:23 | XMS_ITS | Clinical Summary ---
Author Organization [facility] Address [address] [place] [address] Care Team Providers Care Hospital Insurance Representative Name Role Phone Needs Pcp, Assignment Primary Care Provider [phone] Source Comments You are receiving this document as you are listed as the primary care provider,follow-up provider, or the patient has been referred to you for consultation.This is in compliance with the Medicare and[facility] EHR Incentive Program,which states Providers who transition their patient to another setting of careor provider of care or refers their patient to another provider of care shouldprovide summary care record for each transition of care or referral. [facility] Allergies Active Allergy Reactions Criticality Noted Date [...] (OCEAN) 0.65 % nasal solution Place 1 [place] into both nostrils every 2 hours as needed for Congestion. Active bacitracin-polym yxin b (POLYSPORIN) 500-12846 UNIT/GM ointmentIndicati ons:dry nose Apply topically two [...] (06/14/2019): Added automatically from request for surgery [id number] Sarcoidosis, lung 06/01/2019 Recurrent major depressive disorder [...] (145 lb 12.8 oz) 07/16/2019 9:00 PM TILE ERECTOR Height 172.7 cm (5' 8) 07/15/2019 9:30 PM TILE ERECTOR Body Mass Index 22.17 07/15/2019 9:30 PM TILE ERECTOR Plan of Treatment Health Maintenance Due Date [...] this topic Medical Devices Implanted Type Area Ring Sorter Device Identifier Shelf Expiration Date Model / Serial / Lot Chip Canc Crouton 30cc - [id number] Implanted:Qty: 1 on 07/07/2019 by Tobias Martin MD at [facility] DEVICE Right: LEG Medtronic - [employer] 06/30/2023 [id number] / [id number] / [id number] Chip Canc Crouton 30cc - [id number] Implanted:Qty: 1 on 07/07/2019 by Tobias Martin MD at [facility] DEVICE Right: LEG [employer]tr[employer] - [employer] 06/30/2023 [id number] / [id number] / [id number] Procedures Procedure Name Priority Date/Time [...] Negative (Non Reactive) 08/25/2018 4:34 PM CDT [facility] Comment:Antibodies to HCV no t detected. Does not exclude the possiblity of exposure to HCV. Blood Venipuncture / Unknown 08/25/2018 11:24 AM CDT 08/25/2018 11:24 AM CDT us Carin Raniey MD LAB_1 Final Resul t [facility] [address] [place] [address], [place] * MM Mammogram Screening Bilat W [...] Recently Relevant to Health Maintenance Insurance [facility] [place] [address] MEDICARE [facility] [place] [address] MEDICARE BCBS MEDICARE SUPPLEMENT [place] [address] MEDICARE BCBS MEDICARE SUPPLEMENT Advance Directives Documents on File Type Date Recorded Patient Airframe Design Engineer Expl anation HEALTHCARE DIRECTIVE 07/10/2019 ADVANCE D DIRECTIVE 07/10/2019 * Full Code (Latest Code Status on File) Date Activated Date Inactivated Comments 07/15/2019 9:18 PM 07/20/2019 4:20 PM * Full Code Date Activated Date Inactivated Comments 07/07/2019 4:33 PM 07/10/2019 6:22 PM Care Teams Hospital Insurance Representative Relationship Specialty Start Date End Date Needs Pcp, [place] [address] PCP - General 02/28/21
--- OUTSIDE RECORDS SUMMARY | 2024-06-29 17:23 | XMS_ITS | Clinical Summary ---
Author Organization [facility] Address [address] [place] [address] , [address] [place] [address] Phone Care Team Providers Care Boiler Setter Name Role Phone [facility] Unavailable Unava ilable Conditions or Problems Problem Name Problem Code Onset Date Status Entry Date Provider Comment Standard Description Annotate Myalgia of auxiliary muscles, head and neck 27643025 (SNOMED CT) 06/27 Active 06/27 Jina Johnson DNP,JACQUARD CARD CUTTER,CN P Muscle pain Hemifacial spasm R 91855707 (SNOMED CT) 08/10 Active 08/10 Norberto Miller Jr, MD Hemifacial spasm Facial pain, atypical 76667037 (SNOMED CT) 08/10 Active 08/10 Norberto Miller Jr, MD Atypical facial pain 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), right 13373003 (SNOMED CT) 08/10 Active 08/10 Norberto Miller Jr, MD Arthritis of temporomandibul ar joint Cervical spasm 84667464 (SNOMED CT) 08/10 Active 08/10 Norberto Miller Jr, MD Muscle spasm of head and/or neck Juvenile rheumatoid arthritis 856537771 (SNOMED CT) 08/10 Active 08/10 Norberto Miller [...] limb movement disorder (moderate; 15/hr; most w/arousals) 533175154 (SNOMED CT) 11/01 Inactive 11/03 Norberto Miller Jr, MD Periodic limb movement disorder 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 (ICD-10-CM ) 09/20 Active 09/20 Norberto Miller Jr, MD Sleep disorder, unspecified Fatigue 37277179 (SNOMED CT) 09/20 Active 09/20 Norberto Miller Jr, MD Fatigue Paresthesia of bilateral legs 55355765 (SNOMED CT) 11/10 Active 11/10 Regan Santiago MD Paresthesia Anxiety, generalized F41.1 (ICD-10-CM ) 01/17 Active 01/17 Jesika Diallo PhD Generalized anxiety disorder Restless leg syndrome (PLMS 15/hr) G25.81 (ICD-10-CM ) 09/04 Active 09/04 Norberto Miller Jr, MD Restless legs syndrome Sleep disturbance , nos 01499778 (SNOMED CT) 09/04 Inactive 09/04 Norberto Miller Jr, MD Dyssomnia 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 (ICD-10-CM ) 09/04 Active 09/04 Norberto Miller Jr, MD Insomnia, unspecified Snoring 79527408 (SNOMED CT) 09/04 Active 09/04 Norberto Miller Jr, MD Snoring Restless leg syndrome 16067967 (SNOMED CT) 09/04 Inactive 09/04 Norberto Miller Jr, MD Restless legs 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 (ICD-10-CM ) 09/04 Active 09/04 Norberto Miller Jr, MD Abnormal level of blood mineral traumatic brain injury, initial encounter S06.309A (ICD-10-CM ) 08/02 Active 08/07 Zuleyma Ly 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, initial encounter Hypothyroid ism 66498108 (SNOMED CT) 08/02 Active 08/07 Zuleyma Ly Hypothyroidism depression 53001211 (SNOMED CT) 08/02 Active 08/07 Zuleyma Ly Depressive disorder Memory problems R41.3 (ICD-10-CM ) 08/02 Active 08/07 Zuleyma Ly Other amnesia Medications Medication Instructions Start Date Stop Date Generic Name NDC Provider ESCITALOPRAM OXALATE 20 MG TABS 12/10 escitalopram oxalate 71964209709 Norberto Miller Jr, MD LORAZEPAM 0.5 MG TABS 12/10 lorazepam 22130754318 Norberto Miller Jr, MD TRETINOIN 0.025 % CREA 12/10 tretinoin 92120558709 Norberto Miller Jr, MD MELATONIN 10 MG TABS 1 by mouth every night 12/10 melatonin-lemon balm leaf extr 45455199952 Norberto Miller Jr, MD TRIAMCINOLONE ACETONIDE 0.1 % CREA 12/10 triamcinolone acetonide 79838171433 Norberto Miller Jr, MD SUMATRIPTAN SUCCINATE 25 MG TABS 12/10 sumatriptan succinate 50961361673 Norberto Miller Jr, MD BUSPIRONE HCL 15 MG TABS 12/10 buspirone 22439811046 Norberto Miller Jr, MD DIPHENOXYLATE-ATRO PINE 2.5-0.025 MG TABS 12/10 diphenoxylate-atr opine 98587987595 Norberto Miller Jr, MD TYRVAYA 0.03 MG/ACT SOLN 12/10 varenicline 79267134208 Norberto Miller Jr, MD ESCITALOPRAM OXALATE 10 MG TABS 12/10 escitalopram oxalate 27215990015 Norberto Miller Jr, MD LIDOCAINE VISCOUS HCL 2 % SOLN 12/10 lidocaine hcl 64550107946 Norberto Miller Jr, MD LIOTHYRONINE SODIUM 5 MCG TABS 12/10 liothyronine 04986838003 Norberto Miller Jr, MD HYDROMORPHONE HCL 2 MG TABS 12/10 hydromorphone 64252138704 Norberto Miller Jr, MD ROPINIROLE HCL 0.25 MG TABS 12/10 ropinirole 81497191557 Norberto Miller Jr, MD POLYMYXIN B-TRIMETHOPRIM 11962-0.1 UNIT/ML-% SOLN 12/10 polymyxin b sulf-trimethoprim 39873395339 Norberto Miller Jr, MD YUVAFEM 10 MCG TABS 12/10 estradiol 31925584196 Norberto Miller Jr, MD SULFAMETHOXAZOLE-T RIMETHOPRIM 800-160 MG TABS 12/10 sulfamethoxazole- trimethoprim 36227152496 Norberto Miller Jr, MD VALACYCLOVIR HCL 1 GM TABS 12/10 valacyclovir 62866958935 Norberto Miller Jr, MD LIDOCAINE 5 % PTCH lidocaine 63498314230 Norberto Miller Jr, MD TRIAMCINOLONE ACETONIDE 0.1 % PSTE triamcinolone acetonide 25441721774 Norberto Miller Jr, MD PROGESTERONE 100 MG CAPS TAKE ONE CAPSULE BY MOUTH AT BEDTIME* progesterone micronized 58061439285 Norberto Miller Jr, MD ESTRADIOL 1 MG TABS estradiol 79108847014 Norberto Miller Jr, MD DIPHENOXYLATE-ATRO PINE 2.5-0.025 MG TABS diphenoxylate-at r opine 02499657758 Norberto Miller Jr, MD LIOTHYRONINE SODIUM 5 MCG TABS liothyronine 65837687562 Norberto Miller Jr, MD MELOXICAM 15 MG TABS meloxicam 67074965402 Norberto Miller Jr, MD ONDANSETRON HCL 4 MG TABS ondansetron hcl 44599429218 Norberto Miller Jr, MD AMOXICILLIN 500 MG CAPS amoxicillin 40470014434 Norberto Miller Jr, MD HYDROMORPHONE HCL 2 MG TABS hydromorphone 32102637133 Norberto Miller Jr, MD YUVAFEM 10 MCG TABS estradiol 06452462661 Norberto Miller Jr, MD VILAZODONE HCL 20 MG TABS vilazodone 47435060781 Norberto Miller Jr, MD VILAZODONE HCL 10 MG TABS vilazodone 30230460698 Norberto Miller Jr, MD ESCITALOPRAM OXALATE 20 MG TABS escitalopram oxalate 19467293143 Norberto Miller Jr, MD BUSPIRONE HCL 15 MG TABS buspirone 45841851572 Norberto Miller Jr, MD TRAZODONE HCL 50 MG TABS trazodone 52843176529 Norberto Miller Jr, MD PREDNISONE 20 MG TABS prednisone 65389105790 Norberto Miller Jr, MD PROPRANOLOL HCL 20 MG TABS 08/10 propranolol 15218422936 Norberto Miller Jr, MD HYDROMORPHONE HCL 2 MG TABS 12/10 hydromorphone 67441193543 Norberto Miller Jr, MD ROPINIROLE HCL 0.25 MG TABS 12/10 ropinirole 25307072659 Norberto Miller Jr, MD ESCITALOPRAM OXALATE 20 MG TABS 12/10 escitalopram oxalate 60685823137 Norberto Miller Jr, MD TYRVAYA 0.03 MG/ACT SOLN 12/10 varenicline 25798540203 Norberto Miller Jr, MD YUVAFEM 10 MCG TABS 12/10 estradiol 13503784049 Norberto Miller Jr, MD CYCLOBENZAPRINE HCL 5 MG TABS Take 1/2-1 tablet by mouth every night at bedtime as directed start with 1/2 tab cyclobenzaprine 13062412154 Norberto Miller Jr, MD ESCITALOPRAM OXALATE 10 MG TABS 12/23 escitalopram oxalate 42791938833 Norberto Miller Jr, MD DULOXETINE HCL 30 MG CPEP 1 every morning 12/23 duloxetine 27775289061 Norberto Miller Jr, MD BUSPIRONE HCL 5 MG TABS 1 twice a day 12/23 buspirone 07496607333 Norberto Miller Jr, MD MELATONIN 10 MG TABS 1 by mouth every night 12/10 melatonin-lemon balm leaf extr 46825979189 Norberto Miller Jr, MD TRAZODONE HCL 50 MG TABS Prescribed by Family 12/23 TRAZODONE HCL Norberto Miller Jr, MD BUSPIRONE HCL 15 MG TABS 12/10 buspirone 95902446774 Norberto Miller Jr, MD ESCITALOPRAM OXALATE 10 MG TABS 12/10 escitalopram oxalate 77735719235 Norberto Miller Jr, MD LORAZEPAM 0.5 MG TABS 12/10 lorazepam 77653601131 Norberto Miller Jr, MD TRIAMCINOLONE ACETONIDE 0.1 % CREA 12/10 triamcinolone acetonide 99574524445 Norberto Miller Jr, MD SULFAMETHOXAZOLE-T RIMETHOPRIM 800-160 MG TABS 12/10 sulfamethoxazole- trimethoprim 45029888685 Norberto Miller Jr, MD PROPRANOLOL HCL 20 MG TABS 08/10 propranolol 67263901786 Norberto Miller Jr, MD LIOTHYRONINE SODIUM 5 MCG TABS 12/10 liothyronine 99234647786 Norberto Miller Jr, MD POLYMYXIN B-TRIMETHOPRIM 20425-8.1 UNIT/ML-% SOLN 12/10 polymyxin b sulf-trimethoprim 00586126702 Norberto Miller Jr, MD DIPHENOXYLATE-ATRO PINE 2.5-0.025 MG TABS 12/10 diphenoxylate-atr opine 27594934002 Norberto Miller Jr, MD LIDOCAINE VISCOUS HCL 2 % SOLN 12/10 lidocaine hcl 94873396358 Norberto Miller Jr, MD TRETINOIN 0.025 % CREA 12/10 tretinoin 42171938846 Norberto Miller Jr, MD SUMATRIPTAN SUCCINATE 25 MG TABS 12/10 sumatriptan succinate 26158004922 Norberto Miller Jr, MD VALACYCLOVIR HCL 1 GM TABS 12/10 valacyclovir 07479171423 Norberto Miller Jr, MD ESCITALOPRAM OXALATE 10 MG TABS 12/23 escitalopram oxalate 29162280139 Belle Jimenez PA-C MELATONIN 10 MG TABS 1 orally QHS 12/23 MELATONIN 39677945747 Norberto Miller Jr, MD CLOBETASOL PROPIONATE 0.05 % CREA Prescribed by Family SALAZAR 09/20 CLOBETASOL PROPIONATE 78399292706 Norberto Miller Jr, MD BETAMETHASONE VALERATE 0.1 % LOTN Prescribed by Family SALAZAR 09/20 BETAMETHASONE VALERATE 42694031919 Norberto Miller Jr, MD CEFUROXIME AXETIL 500 MG TABS Prescribed by Family SALAZAR 09/20 CEFUROXIME AXETIL 44757027144 Norberto Miller Jr, MD ARMOUR THYROID 30 MG TABS Prescribed by Family SALAZAR 09/20 THYROID 37537723724 Norberto Miller Jr, MD SERTRALINE HCL 100 MG TABS Prescribed by Family SALAZAR 09/20 SERTRALINE HCL 46061639627 Norberto Miller Jr, MD WELLBUTRIN XL 150 MG [id number] Prescribed by Family SALAZAR 09/20 BUPROPION HCL 00163324757 Norberto Miller Jr, MD DULOXETINE HCL 30 MG CPEP 1 QAM 12/23 DULOXETINE HCL 36274343039 Norberto Miller Jr, MD BUSPIRONE HCL 5 MG TABS 1 BID 12/23 BUSPIRONE HCL 40033751209 Norberto Miller Jr, MD GABAPENTIN 300 MG CAPS Prescribed by Family SALAZAR GABAPENTIN 34431801335 Norberto Miller Jr, MD CEFUROXIME AXETIL 500 MG TABS Prescribed by Family SALAZAR 08/24 CEFUROXIME AXETIL 15407464050 Zuleyma Cameron ARMOUR THYROID 30 MG TABS Prescribed by Family SALAZAR 09/20 THYROID 38315961641 Zuleyma Cameron GABAPENTIN 300 MG CAPS Prescribed by Family SALAZAR 08/24 GABAPENTIN 08556786404 Zuleyma Cameron SERTRALINE HCL 100 MG TABS Prescribed by Family SALAZAR 09/20 SERTRALINE HCL 11771687657 Zuleyma Cameron WELLBUTRIN XL 150 MG [id number] Prescribed by Family SALAZAR 09/20 BUPROPION HCL 52023143305 Zuleyma Cameron TRAZODONE HCL 50 MG TABS Prescribed by Family SALAZAR 12/23 TRAZODONE HCL 98850859369 Zuleyma Cameron BETAMETHASONE VALERATE 0.1 % LOTN Prescribed by Family SALAZAR 08/24 BETAMETHASONE VALERATE 26625372175 Zuleyma Ly CLOBETASOL PROPIONATE 0.05 % CREA Prescribed by Family SALAZAR 08/24 CLOBETASOL PROPIONATE 25768957663 Zuleyma Cameron Medications Administered No information available. [...] Procedures Code Procedure Name Date Entry Date 62534/32746/67338&53 Occipital Nerve Blo ck and Trigger Point Injections CPT-42486 Trigger point inj (3+ musc) CPT-J1100 Dexamethasone -- 10 mg 04/26 ORDERS Follow up [facility] telemedicine 2 ORDERS Dental Device Referral 12/10 ORDERS Sleep Hygiene Tips Handout 2 ORDERS Insomnia Handout ORDERS Patient Instructions ORDERS Patient Instructions ORDERS Patient Instructions SCT-[id number] Other Referral ORDERS Instructions for Staff 09/02 ORDERS Follow up Sleep [facility] telemedicine ORDERS Patient Instructions CPT-29803 Trigger point inj (3+ musc) CPT-J1100 Dexamethasone -- 10 mg 08/10 [id number] Other Radiology 62178/32225/62861&53 Occipital Nerve Blo ck and Trigger Point Injections ORDERS Follow up Extended telemedicine 1 ORDERS Patient Instructions SCT-[id number] Other Referral [facility]-[id number] Psychiatry Referral ORDERS Pain Clinic ORDERS Insomnia Handout ORDERS Sleep Hygiene Tips Handout 2 ORDERS Patient Instructions CPT-77526 PSG, 4+ parameters w / tech - 6yrs or older (18123) ORDERS Vitamin B12 ORDERS Vitamin D 25 Hydroxy ORDERS Patient Instructions SCT-[id number] Other Referral SCT-[id number] Psychology Referral ORDERS Instructions for Staff 11/28 ORDERS Lyme Total Ab w/Refl ex (reflex to Western Blot) ORDERS TSH ORDERS 2 weeks Actigraphy W atch w/ Sleep Journals (Call Sleep Lab) ORDERS Ferritin Serum ORDERS Overnight PSG - Sleep Study Overnight 07/17/19 ORDERS Telemedicine Follow up 11/08 ORDERS Ferritin Serum [facility]-[id number] Documentation of current medicatio ns ORDERS Other Handout ORDERS Patient Instructions ORDERS Patient Instructions ORDERS Instructions for Staff 11/08 ORDERS Telemedicine Follow up 09/20 CPT-27740 PSG, 4+ parameters w / tech - 6yrs or older (90102) ORDERS Sleep Study - [facility] 2 SCT-[id number] Documentation of current medicatio ns ORDERS T4 SCT-409534539 Other Referral ORDERS Lyme Total Ab w/Refl [...] TSH ORDERS Vitamin B12 ORDERS T3 Free CPT-11695 Nerve Conduction 7-8 studies CPT-18676 EMG with NCS (5+ muscles) - 1 limb 11/10 SCT-[id number] Documentation of current medicatio ns ORDERS Ferritin Serum ORDERS Patient Instructions ORDERS Other Test ORDERS Follow up ORDERS Vitamin B12 CPT-70045 Neuropsych assmnt w/ prov 4 hr CPT-0325784 Neuropsych assmnt w/ tech 3 hr ORDERS Follow up ORDERS Patient Instructions SCT-[id number] Documentation of current medicatio ns ORDERS Follow up ORDERS Patient Instructions SCT-[id number] Other Test CPT-51754 PSG, 4+ parameters w / tech - 6yrs or older (03350) CPT-95972 MRI Brain W/O SCT-[id number] Documentation of current medicatio ns SCT-439923632 Other Test SCT-[id number] Documentation of current medicatio ns ORDERS Ferritin Serum SCT-[id number] Other Referral ORDERS Follow up SCT-790432307 Other Test SCT-327868715 Other Referral SCT-[id number] Documentation of current medicatio ns Vital Signs [...]
--- OUTSIDE RECORDS SUMMARY | 2024-06-29 17:23 | XMS_ITS | Encounter Summary ---
Author Organization [facility] Address Formerly [facility], [facility] [place] [address] Care Team Providers Care Glove Presser Name Role Phone Heladio Martins MD Primary Care Provider Kelsi Glez MD Unavailable Nivia Bruno MD Primary Care Provider [phone] Encounter Details Date Type Department Care Team (Latest Contact Info) Description 03/06/2021 [facility] Treatment Plan [facility] [address] [place] [phone] Dav Tierney MD [address] [place] [address] Megan Ruiz, SHANNON Major depressive [...] on file Legal Sex Female 3:16 AM COMMERCIAL DESIGNER Gender Identity Not on file Sexual Orientation [...] documented as of this encounter Care Teams Glove Presser Relationship Specialty Start Date End Date Heladio Martins MD PCP - General Internal Medicine 03/05/16 03/21/21 Nivia Bruno MD [address] [place] [address] PCP - General 03/22/21 Kelsi Handy MD [address] [place] [address] Assigned OBGYN Provider 04/23/20 3 documented as of this encounter
--- OUTSIDE RECORDS SUMMARY | 2024-06-29 17:23 | XMS_ITS | Encounter Summary ---
Author Organization [facility] Address [address] [place] [address] Care Team Providers Care Paper Making Machine Operator Name Role Phone Heladio Martins MD Primary Care Provider Kelsi Glez MD Unavailable Nivia Bruno MD Primary Care Provider [phone] Encounter Details Date Type Department Care Team ([facility] Contact Info) Description 03/07/2021 [facility] Behavioral Health Intake [address] [place] [phone] Generic, Behavioral Intake, Social History Tobacco Use Types Packs/Day Years Used Date Smoking Tobacco: Never Smokeless Tobacco: Never Alcohol Use Standard Drinks/Week Comments No 0 (1 standard drink = 0.6 oz pur e alcohol) PHQ-2 Answer Date Recorded PHQ-2 Score 6 03/06/2021 Comments No Sex and Gender Information Value Date Recorded Sex Assigned at Not on file Legal Sex Female 3:16 AM PATIENT REGISTRATION REP Gender Identity Not on file Sexual Orientation [...] 03/06/2021 7:37 PM CDT To: Cheyanne Santana [facility], Quentin Hagan, # Subject: Schedule for PHP on Friday Scheduling Request Patient Name: Juliette Brown Location of programming: [facility] Start Date: 03/12 Group: [id number] 9am to 3pm Attending Provider (): Trent Number of visits to be scheduled: 50 Duration of Appointment in minutes: 360 Visit Type: Zoom - [phone] Additional notes: Patient is currently in PHP at [facility]. She has Medicare and BCBS. Please check ifinsurance will cover another PHP program. Patient was given [employer] phone number. * Telephone Encounter - Jen Serrano - 03/07/2021 7:50 AM CDT ----- Message from KETTY Rollins sent at 03/06/2021 7:37 PM CDT ----- Regarding: Schedule for PHP on Friday Scheduling Request Patient Name: Juliette Brown Location of programming: [facility] Start Date: 03/12 Group: [id number] 9am to 3pm Attending Provider (): Vine Number of visits to be scheduled: 50 Duration of Appointment in minutes: 360 Visit Type: Zoom - [phone] Additional notes: Patient is currently in PHP at [facility]. She has Medicare and BCBS. Please check ifinsurance will cover another PHP program. Patient was given [employer] phone number. documented in this encounter Plan of Treatment Not on file documented as of this encounter Visit Diagnoses Not on filedocumented in this encounter Additional Health Concerns Assessment Noted Time PHQ-9 Depression Total Score: 21 021 12:28 PM CDT documented as of this encounter Care Teams Paper Making Machine Operator Relationship Specialty Start Date End Date Heladio Martins MD PCP - General Internal Medicine 03/05/16 03/21/21 Nivia Bruno MD [address] [place] [address] PCP - General 03/22/21 Kelsi Handy MD [address] [place] [address] Assigned OBGYN Provider 04/23/20 3 documented as of this encounter
--- OUTSIDE RECORDS SUMMARY | 2024-06-29 17:23 | XMS_ITS | Clinical Summary ---
Author Organization [facility] Address [address] [place] [address] Care Team Providers Care Activities Director Scouting Name Role Phone Nivia Bruno MD Primary Care Provider [phone] Allergies Active Allergy Reactions Criticality Noted Date [...] Take 1 tablet by mouth 07/22/2014 Active [place]-3 1000 MG CAPS 04/02/2016 Active Saline (SODIUM CHLORIDE) 0.65 % SOLN [place] 1 spray in nostril 01/28/2015 Active traZODone [...] on file Legal Sex Female 3:16 AM ROUNDER AND BACKER Gender Identity Not on file Sexual Orientation [...] BASIC METABOLIC PANEL Routine 06/23/2017 6:00 AM ROUNDER AND BACKER TSH Routine 06/23/2017 6:00 AM ROUNDER AND BACKER from Last 3 Months or Most Recently Relevant to Health Maintenance Results * TSH (06/23/2017 6:00 AM ROUNDER AND BACKER) TSH 2.31 0.30 - 5.00 uIU/mL 06/23/2017 10:31 AM ROUNDER AND BACKER [facility] Blood specimen (specimen) STRUCTURE OF LEFT UPPER LIMB / Unknown Venipuncture / Unknown 06/23/2017 6:00 AM ROUNDER AND BACKER 06/23/2017 9:50 AM ROUNDER AND BACKER Rosmery Simpson MD LAB - BLOOD ORDERABLES Fi nal Result [facility] [address] [place] [address], [facility] [address] [place] [address] * Basic metabolic panel (06/23/2017 6:00 AM ROUNDER AND BACKER) Sodium 139 136 - 145 mmol/L 06/23/2017 10:13 AM ROUNDER AND BACKER [facility] Potassium 4.2 3.5 - 5.0 mmol/L 06/23/2017 10:13 AM ROUNDER AND BACKER [facility] Chloride 103 [...] 8.5 - 10.5 mg/dL 06/23/2017 10:13 AM [facility] Urea Nitrogen 16 8 - 22 mg/dL 06/23/2017 10:13 AM [facility] Creatinine 0.69 0.60 - 1.10 mg/dL 06/23/2017 10:13 AM [facility] GFR Estimate If Black >60 >60 mL/min/1.7 3m2 06/23/2017 10:13 AM [facility] GFR Estimate >60 >60 mL/min/1.7 3m2 06/23/2017 10:13 AM [facility] Blood specimen (specimen) STRUCTURE OF LEFT UPPER LIMB / Unknown Venipuncture / Unknown 06/23/2017 6:00 AM [facility] 06/23/2017 9:50 AM [facility] Narrative [facility] - 06/23/2017 10:13 AM [facility] Fasting Glucose reference range is 70-99 mg/dL per [place] Diabetes [employer] (ADA) guidelines. Rosmery Simpson MD LAB - BLOOD ORDERABLES Fi nal Result [facility] [address] [place] [address], [facility] [address] [place] [address] from Last 3 Months or Most Recently Relevant to Health [place] [id number] MEDICARE [place] [id number] [place] [id number] [place] [address] Advance Directives For more information, please contact: [phone] * Full Code (Latest Code Status on File) Date Activated Date Inactivated Comments 04/16/2016 1:58 AM 04/22/2016 3:55 PM Care Teams Activities Director Scouting Relationship Specialty Start Date End Date Nivia Bruno MD PCP - General 03/22/21
--- OUTSIDE RECORDS SUMMARY | 2024-06-29 17:23 | XMS_ITS | Encounter Summary ---
Author Organization [email or web address] Address [address], [place] [address] Care Team Providers Care Custodial Services Manager Name Role Phone Needs Pcp, Assignment Primary Care Provider [phone] Reason for Visit * Auth/Cert Specialty Diagnoses / Procedures Referred By Contac t Referred To Contact Diagnoses Diarrhea of presumed infectious origin Fibromyalgia Diarrhea of presumed infectious origin Fibromyalgia Diarrhea of presumed infectious origin Fibromyalgia Referral ID Status Reason Start Date Expiration Date Visits Re quested Visits Authorized [id number] 1 1 Encounter Details Date Type Department Care Team (Latest Contact Info) Description 07/15/2019 Lab Requisition [facility] [address] [facility] [place] [address] Lul Hunter MD [address], [place] [id number] Enterocolitis due to Clostridium difficile, not specified [...] C.DIFFICILE TOXIN,MOLECULAR DETECTION Routine 07/15/2019 10:00 PM BEAM BUILDER HELPER Enterocolitis due to Clostridium difficile, not specified as recurrent documented in this encounter Results * (ABNORMAL) C.Difficile Toxin,Molecular Detection, (07/15/2019 10:00 PM BEAM BUILDER HELPER) C.difficile Detected(A ) Not Detected 07/15/2019 11:30 PM BEAM BUILDER HELPER [facility] Stool Non-blood Collection / Unknown 07/15/2019 10:00 PM BEAM BUILDER HELPER 07/15/2019 10:24 PM BEAM BUILDER HELPER Narrative [facility] - 07/15/2019 11:30 PM BEAM BUILDER HELPER Methodology: Qualitative real-time PCR assay to detect the Clostridium difficile toxin B gene. us Lul Hunter MD LAB_1 Final Result [facility] [address] [place] [address], [facility] documented in this encounter Visit Diagnoses Diagnosis Enterocolitis due to Clostridium difficile, not specified as recurrent documented in this encounter Care Teams Custodial Services Manager Relationship Specialty Start Date End Date Needs Pcp, [place] [address] PCP - General 02/28/21 documented as of this encounter
--- OUTSIDE RECORDS SUMMARY | 2024-06-29 17:23 | XMS_ITS | Encounter Summary ---
Author Organization [facility] Address [address] [place] [address] Care Team Providers Care Financial Underwriter Name Role Phone Needs Pcp, Assignment Primary Care Provider [phone] Encounter Details Date Type Department Care Team (Late st Contact Info) Description 07/16/2019 Lab Requisition [facility] [address] [facility]. [place], [place] [id number] Lul Hunter MD [address] [place], [place] [id number] Encounter for surgical aftercare following surgery on [...] organs documented in this encounter Care Teams Financial Underwriter Relationship Specialty Start Date End Date Needs Pcp, [place] [address] PCP - General 02/28/21 documented as of this encounter
--- OUTSIDE RECORDS SUMMARY | 2024-06-29 17:23 | XMS_ITS | Encounter Summary ---
Author Organization [facility] Address [address] [place] [address] Care Team Providers Care Town Administrator Name Role Phone Heladio Martins MD Primary Care Provider Kelsi Glez MD Unavailable [phone] Nivia Bruno MD Primary Care Provider [phone] Reason for Visit * Reason Onset Date Comments MH/CD Inpatient 04/15/2016 Encounter Details Date Type Department Care Team ([facility] Contact Info) Description 04/15/2016 Telephone [facility] Behavioral Health Intake [address] [place] [address] Generic, Behavioral Intake, MD MH/CD Inpatient Social History Tobacco Use Types Packs/Day Years Used Date Smoking Tobacco: Never Assessed Comments Unknown Sex and Gender Information Value Date Recorded Sex Assigned at Not on file Legal 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
--- NOTE | 2024-06-29 18:39 | ED.NURSE ---
Patient returned to ED shortly after discharge. She had a lint roller in a ziplock bag and asked registration to alert the doctor. I went out and asked Juliette if I could help her. She showed me the bag with lint on lint roller. She reports she took this out of her dryer to show to the doctor and wants him to see if this would change his mind. I told patient that I saw no bugs and would not be getting the doctor unless she wanted to be seen again in ED. Tried to reassure her that tests would be completed on her stool and that her primary care doctor may be able to help her further. Patient did accept this and left ED.
[2024-07-06 21:15] LABS: Ova and Parasite, Fecal Negative (Negative)
== END 2024-06-29 17:30 | disposition home or self-care (01) ==
PROVIDERS: Emergency Provider Student in an Organized Health Care Education/Training Program; PCP Family Medicine
DX: F40.218 Other animal type phobia (principal)
CPT/HCPCS: 87177; 87209; 99282; 99283; 99284

== ENCOUNTER 2024-07-20 21:21 | Emergency (ER) | payer MEDICARE, BC, SELFPAY ==
--- OUTSIDE RECORDS SUMMARY | 2024-07-20 21:25 | XMS_ITS | Encounter Summary ---
Author Organization [facility] Address [address] [place] [address] Care Team Providers Care Muffler Mechanic Name Role Phone Kelsi Handy MD Unavailable [phone] Nivia Bruno MD Primary Care Provider [phone] Encounter Details Date Type Department Care Team ([facility] Contact Info) Description 06/13/2021 Telephone [facility] Behavioral Health Intake [address] [place] [phone] Generic, Behavioral Intake, Social History Tobacco Use Types Packs/Day Years Used Date Smoking Tobacco: Never Smokeless Tobacco: Never Alcohol Use Standard Drinks/Week Comments No 0 (1 standard drink = 0.6 oz pur e alcohol) PHQ-2 Answer Date Recorded PHQ-2 Score 2 06/13/2021 Comments No Sex and Gender Information Value Date Recorded Sex Assigned at Not on file Legal Sex Female 3:16 AM CLINICAL SCIENCE LIAISON Gender Identity Not on file Sexual Orientation Not on file documented as of this encounter Miscellaneous Notes * Telephone Encounter - Rafael Cota - 06/29/2021 12:06 PM CST ----- Message from KETTY Lynn sent at 06/29/2021 11:41 AM CLINICAL SCIENCE LIAISON ----- Regarding: new start Clinic 1 on 07/05 Scheduling Request Patient Name: Juliette Brown Location of programmin+ Start Date: June Group: Clinic 1 on at 1:00 to 3:00PM Attending Provider (MD): 12 Number of visits to be scheduled: 12 Duration of Appointment in minutes: 120 min Visit Type: Zoom - 2657 Additional notes: ICAL SCIENCE LIAISON * Telephone Encounter - Jen Serrano - 06/13/2021 9:38 AM CST ----- Message from SHANNON Warner sent at 06/13/2021 9:12 AM CLINICAL SCIENCE LIAISON ----- Regarding: add appointment Scheduling Request Patient Name: ?? Location of programming: [facility] 55+ Start Date:06/13/21 Group (BHxxxxx on #days of the week# at #start time to end time#): 55+ B1 M,W,F 1-4pm Provider (name of MD): Niall Number of visits to be scheduled: 1 Duration of Appointment in minutes: 180 mins Visit Type (Amwell - 2702 / Zoom - 2657 / In-person or Treatment - 870) :2657-zoom Additional notes: ICAL SCIENCE LIAISON documented in this encounter Plan of Treatment Not on file documented as of this encounter Visit Diagnoses Not on filedocumented in this encounter Additional Health Concerns Assessment Noted Time PHQ-9 Depression Total Score: 7 06/14/19 22 10:59 AM CLINICAL SCIENCE LIAISON documented as of this encounter Care Teams Muffler Mechanic Relationship Specialty Start Date End Date Nivia Bruno MD [address] [place] [address] PCP - General 03/22/21 Kelsi Handy MD [address] [place] [address] Assigned OBGYN Provider 04/23/20 3 documented as of this encounter
--- OUTSIDE RECORDS SUMMARY | 2024-07-20 21:25 | XMS_ITS | Encounter Summary ---
Author Organization [facility] Address [address] [place] [address] Care Team Providers Care Addictions Counselor Name Role Phone Heladio Martins MD Primary Care Provider Kelsi Glez MD Unavailable Nivia Bruno MD Primary Care Provider [phone] Reason for Visit * Reason Onset Date Comments MH/CD Inpatient 04/15/2016 Encounter Details Date Type Department Care Team ([facility] Contact Info) Description 04/15/2016 Telephone [facility] Behavioral Health Intake [address] [place] [address] Generic, Behavioral Intake, MD MH/CD Inpatient Social History Tobacco Use Types Packs/Day Years Used Date Smoking Tobacco: Never Assessed Comments Unknown Sex and Gender Information Value Date Recorded Sex Assigned at Not on file Legal Sex Female 3:16 AM INSPECTOR INTEGRATED CIRCUITS Gender Identity Not on file Sexual Orientation [...] as it is after 10pm); unit notified ECTOR INTEGRATED CIRCUITS ECTOR INTEGRATED CIRCUITS documented in this encounter Plan of Treatment Not on file documented as of this encounter Visit Diagnoses Not on filedocumented in this encounter Care Teams Addictions Counselor Relationship Specialty Start Date End Date Heladio Martins MD PCP - General Internal Medicine 03/05/16 03/21/21 Nivia Bruno MD [address] [place] [address] PCP - General 03/22/21 Kelsi Handy MD [address] [place] [address] Assigned OBGYN Provider 04/23/20 3 documented as of this encounter
--- OUTSIDE RECORDS SUMMARY | 2024-07-20 21:25 | XMS_ITS | Encounter Summary ---
Author Organization [facility] Address [address] [place] [address] Care Team Providers Care Maintenance Mechanic Name Role Phone Heladio Martins MD Primary Care Provider Kelsi Glez MD Unavailable [phone] Nivia Bruno MD Primary Care Provider [phone] Encounter Details Date Type Department Care Team ([facility] Contact Info) Description 03/07/2021 [facility] Behavioral Health Intake [address] [place] [phone] Generic, Behavioral Intake, Social History Tobacco Use Types Packs/Day Years Used Date Smoking Tobacco: Never Smokeless Tobacco: Never Alcohol Use Standard Drinks/Week Comments No 0 (1 standard drink = 0.6 oz pur e alcohol) PHQ-2 Answer Date Recorded PHQ-2 Score 6 03/06/2021 Comments No Sex and Gender Information Value Date Recorded Sex Assigned at Not on file Legal Sex Female 3:16 AM TEST BAKER Gender Identity Not on file Sexual Orientation [...] PM CDT To: Cheyanne Santana [facility], Quentin Hagan, # Subject: Schedule for PHP on Friday Scheduling Request Patient Name: Juliette Brown Location of programming: [facility] Start Date: 03/12 Group: [id number] 9am to 3pm Attending Provider (): Trent Number of visits to be scheduled: 50 Duration of Appointment in minutes: 360 Visit Type: Zoom - 2657 Additional notes: Patient is currently in PHP at [facility]. She has Medicare and BCBS. Please check ifinsurance will cover another PHP program. Patient was given [facility] phone number. * Telephone Encounter - Jen Serrano - 03/07/2021 7:50 AM CDT ----- Message from KETTY Rollins sent at 03/06/2021 7:37 PM CDT ----- Regarding: Schedule for PHP on Friday Scheduling Request Patient Name: Juliette Brown Location of programming: [facility] Start Date: 03/12 Group: [id number] 9am to 3pm Attending Provider (): Vine Number of visits to be scheduled: 50 Duration of Appointment in minutes: 360 Visit Type: Zoom - 2657 Additional notes: Patient is currently in PHP at [facility]. She has Medicare and BCBS. Please check ifinsurance will cover another PHP program. Patient was given [facility] phone number. documented in this encounter Plan of Treatment Not on file documented as of this encounter Visit Diagnoses Not on filedocumented in this encounter Additional Health Concerns Assessment Noted Time PHQ-9 Depression Total Score: 21 021 12:28 PM CDT documented as of this encounter Care Teams Maintenance Mechanic Relationship Specialty Start Date End Date Heladio Martins MD PCP - General Internal Medicine 03/05/16 03/21/21 Nivia Bruno MD [address] [place] [address] PCP - General 03/22/21 Kelsi Handy MD [address] [place] [address] Assigned OBGYN Provider 04/23/20 3 documented as of this encounter
--- OUTSIDE RECORDS SUMMARY | 2024-07-20 21:25 | XMS_ITS | Encounter Summary ---
Author Organization [place] Address [facility] [place] [address] Care Team Providers Care Extracorporeal Circulation Specialist Name Role Phone Heladio Martins MD Primary Care Provider Kelsi Glez MD Unavailable [phone] Nivia Bruno MD Primary Care Provider Encounter Details Date Type Department Care Team (Latest Contact Info) Description 03/06/2021 [facility] Treatment Plan [facility] [address] [place] [phone] Dav Tierney MD [address] [place] [address] Megan Ruiz, SHANNON Major depressive [...] on file Legal Sex Female 3:16 AM EVENTS INTERN Gender Identity Not on file Sexual Orientation [...] documented as of this encounter Care Teams Extracorporeal Circulation Specialist Relationship Specialty Start Date End Date Heladio Martins MD PCP - General Internal Medicine 03/05/16 03/21/21 Nivia Bruno MD [address] [facility] [place] [address] PCP - General 03/22/21 Kelsi Handy MD [address] [place] [address] Assigned OBGYN Provider 04/23/20 3 documented as of this encounter
--- OUTSIDE RECORDS SUMMARY | 2024-07-20 21:25 | XMS_ITS | Clinical Summary ---
Author Organization [facility] Address [address] [place] [id number] Care Team Providers Care Design Cell Engineer Name Role Phone Monica Bruno MD Primary Care Provider [phone] Judie Carreno PharmD Unavailable [phone] Allergies Active Allergy Reactions Criticality Noted Date Comments Allergenic Extracts Other - Describe In Comment Field 07/10/2019 Auranofin *Unknown,Other - Describe In Comment Field [...] Sodium Thiomalate Anaphylaxis High 06/28/2011 gold shot Ketamine Other - Describe In Comment Field 02/06/2024 Lactose GI Upset High 12/10/1999 Gluten sensitive not, intolerant. Other reaction(s): GI upset Opioids - Morphine Analogues Anaphylaxis,Other - Describe In Comment Field High 12/10/1999 PN: LW Other1: -nka Allergy to Gold Shots Tramadol *Unknown 03/26/2022 Unlisted Allergen (Include Detail In Comments) Anaphylaxis High 07/10/2019 Allergy to Gold Shots Medications albuterol HFA 90 mcg/actuation inhaler Inhale 2 Puffs by mouth every 4 hours if needed. 0 07/29/19 20 Active acetaminophen SR (Tylenol Arthritis Pain) 650 mg Extended-Release tabletIndication s:Chronic polyarticular juvenile rheumatoid arthritis (HC) Take 1 Tablet (650 mg) by mouth every 8 hours. Max acetaminophen dose: 4000mg in 24 hrs. 270 Tablet 3 05/29/19 24 Active Additional Information Patient taking differently:650 mg Oral Q 8H,Max acetaminophen dose: 4000mg in 24 hrs. 1 in morning and 1 at night, Reported on 07/16/2024 naloxone (Narcan) 4 mg/actuation nasal sprayIndications :At risk for injury due to substance overdose Inhale 1 [place] into affected nostril(s) each time if needed for Patient Diff To Arouse or Resp Rate < 8 / min. Additional doses may be given every 2 to 3 minutes until emergency medical assistance arrives. 2 Each 05/29/19 24 Active cyclobenzaprine (FLEXERIL) 5 mg tablet Take 5 mg by mouth at bedtime if needed for Muscle Spasm. 08/11/19 24 Active clobetasol 0.05% (TEMOVATE 0.05% OINTMENT) 0.05 % ointmentIndicati ons:Lichen sclerosus APPLY TOPICALLY TO AFFECTED AREA(S)TWO TIMES DAILY NEEDED TO LICHEN SCLEROSUS IN VAGINAL AREA. 60 g 08/25/19 24 Active liothyronine (CYTOMEL) 5 mcg tabletIndication s:Hypothyroidism , unspecified type Take 1 tablet (5 mcg) by mouth two times daily. 180 Tablet 1 10/08/19 24 Active progesterone micronized (PROMETRIUM) 100 mg capsuleIndicatio ns:Postmenopausa l,Hormone replacement therapy Take 1 Capsule (100 mg) by mouth at bedtime. 90 Capsule 10/13/19 24 Active medication order composerIndicati ons:Fibromyalgia [facility] Calcium Citrate, 250 mg 1x/day [...] Apple Cider Vinegar - PRN NN Ultimate [place]-3 - daily Body Bio Balance Oil (omega-3/omega-6 blend) - 2 capsules daily Body Bio PC - daily BodyBio Tudca - daily 11/10/19 24 Active lidocaine 5 % topical patchIndications :Lumbar radiculopathy Apply on dry, clean, hairless skin. Apply 1 patch to painful area of skin for up to to 12 hours within 24 hour period. 30 Patch 1 11/19/19 24 Active hydrocortisone 2.5 % creamIndications :Hemorrhoids, external Apply topically to affected area(s) two times daily. 30 g 01/15/20 24 Active ketoconazole 2 % creamIndications :Vaginal irritation Apply topically to affected area(s) two times daily. 60 g 01/15/20 24 Active estradioL (VAGIFEM) 10 mcg tab vaginal tablet As directed. 11/04/19 24 Active estradioL (ESTRACE) 1 mg tablet 11/05/19 24 Active SUMAtriptan (IMITREX) 25 mg tabletIndication s:Hx of migraines Take 1 Tablet (25 mg) by mouth 2 times daily if needed for Migraine (Repeat in 2 hours prn, maximum of 2 doses in 1 day.). 9 Tablet 2 01/22/20 24 Active aspirin (ECOTRIN) 81 mg enteric coated tabletIndication s:Calcified atheromatous plaque Take 1 Tablet (81 mg) by mouth once daily with a meal. 100 Tablet 3 01/22/20 24 Active traZODone (DESYREL) 100 mg tabletIndication s:Primary insomnia Take 1 Tablet (100 mg) by mouth at bedtime. 90 Tablet 1 05/10/20 24 Active busPIRone (BUSPAR) 15 mg tabletIndication s:KATY (generalized anxiety disorder) Take 1 Tablet (15 mg) by mouth two times daily. 180 Tablet 1 05/10/20 24 Active vilazodone 20 mg tabletIndication s:KATY (generalized anxiety disorder),Recurr ent major depressive disorder, in partial remission Take 1 Tablet (20 mg) by mouth once daily. 90 Tablet 05/10/20 24 Active valACYclovir (VALTREX) 1 gram tabletIndication s:Genital herpes simplex, unspecified site Take 1 Tablet (1 g) by mouth three times daily. Tid X 7 Days 21 Tablet 06/01/19 25 Active rosuvastatin (CRESTOR) 5 mg tabletIndication s:Calcified atheromatous plaque Take 1 Tablet (5 mg) by mouth at bedtime. 90 Tablet 3 06/10/19 25 Active triamcinolone 0.1 % lotionIndication s:Dermatitis Apply topically to affected area(s) three times daily. 60 mL 06/10/19 25 Active Graduated Compression StockingsIndicat ions:Bilateral leg edema For personal use. Length: calf Strength: 20-30 mmHg 1 Packet 06/10/19 25 Active HYDROmorphone 2 mg tabletIndication s:Blunt trauma of right thigh, subsequent encounter Take 0.5 Tablets (1 mg) by mouth every 6 hours if needed for Pain. 20 Tablet 06/25/19 25 Active LORazepam (ATIVAN) 0.5 mg tabIndications:G AD (generalized anxiety disorder) Take 1 Tablet (0.5 mg) by mouth 2 times daily if needed for Anxiety. 60 Tablet 07/05/19 25 Active alirocumab (Praluent Pen) 150 mg/mL pnij Inject 150 mg subcutaneous every 2 weeks. 2 mL 3 07/14/19 25 Active empty container (Sharps Container) misc As directed. 1 Each 07/14/19 25 Active HYDROmorphone (DILAUDID) 2 mg tabletIndication s:Blunt trauma of right thigh, subsequent encounter Take 0.5 Tablets (1 mg) by mouth every 6 hours if needed for Pain. 12 Tablet 11/19/19 24 025 Discontinu ed(Reorder (E-cancel not sent)) LORazepam (ATIVAN) 0.5 mg tabIndications:G AD (generalized anxiety disorder) TAKE ONE TABLET BY MOUTH TWICE DAILY NEEDED FOR ANXIETY 60 Tablet 06/09/19 25 025 Discontinu ed(Reorder (E-cancel not sent)) HYDROmorphone 2 mg tabletIndication s:Blunt trauma of right thigh, subsequent encounter Take 0.5 Tablets (1 mg) by mouth every 6 hours if needed for Pain. 12 Tablet 06/24/19 25 025 Discontinu ed(Reorder (E-cancel not sent)) alcohol swabs For home use. 100 Each 3 07/14/19 25 025 Hospital, Clinic, or Other Facility Administered Medication Ordered Dose Route Frequency Start Date End Date Status triamcinolone acetonide (KENALOG) injection 80 mgIndications:Chronic polyarticular juvenile rheumatoid arthritis (HC),Effusion of elbow joint, left,Left elbow pain 80 mg IArtic ONE TIME 07/16/2024 07/16/2024 Ended ketorolac 30 mg injection (TORADOL)Indications:Chron ic polyarticular juvenile rheumatoid arthritis (HC),Effusion of elbow joint, left,Left elbow pain 30 mg IArtic ONE TIME 07/16/2024 07/16/2024 Ended Active Problems Problem Noted Date Diagnosed [...] Encounters Date Type Department Care Team Description 07/20/2024 Telephone [facility] [address] [place] [address] Freda Serrano MD 07/19/2024 Telephone [facility] [address] [place] [address] Freda Serrano MD Parasites 07/19/2024 Telephone [facility] [address] [place] [address] Maria G Villavicencio DO Results 07/19/2024 Telephone [facility] [address] [place] [address] Maria G Villavicencio DO Results 07/16/2024 11:25 AM UNDER PRESSER Office Visit [facility] [address] [place] [address] Maria G Villavicencio DO Nose Problem (States she has worms in her nose-she states she has fresh samples brought in) 07/16/2024 9:00 AM UNDER PRESSER Ancillary Procedure [facility] [address] [place] [address] Arrived 07/16/2024 8:10 AM UNDER PRESSER Procedure Only [address] [place] [address] Facundo Mijares MD Procedure (Ultrasound guided injection lef... 07/16/2024 Telephone [facility] [address] [place] [address] Facundo Mijares MD Results (xray ) 07/15/2024 10:30 AM UNDER PRESSER Procedure Only [facility] [address] [place] [address] Tyler Parson L Ac Acupuncture 07/15/2024 Telephone [facility] [address] [place] [address] Kourtney Cherry PA appointment (Medication ) 07/15/2024 Telephone [facility] [address] [place] [address] Monica Bruno MD Error-please disregard 07/15/2024 Telephone [facility] [address] [place] [address] Monica Bruno MD Callback (Call the patient ) 07/15/2024 Travel 07/15/2024 Nurse Triage [facility] [address] [place] [address] Tomas Mckeon MD Error-please disregard 07/13/2024 1:00 PM UNDER PRESSER Phone Office Visit [address] [address] Keiko Downs, [facility] Individual Therapy; Phone Visit 07/13/2024 Nurse Triage [facility] [address] [place] [address] Monica Bruno MD Sinus Problem; Worms in nasal cavity 07/13/2024 Telephone [facility] [address] [place] [address] Monica Bruno MD Foreign Body (Worms coming out of nose) 07/13/2024 Travel 07/09/2024 3:30 PM UNDER PRESSER Office Visit [facility] [address] [place] [address] Mehran Norman MD Consult (Calcified atheromatous plaque, Edema in both legs per Dr. Bruno ) 07/09/2024 11:00 AM UNDER PRESSER Procedure Only [facility] [address] [place] [address] Tyler Parson L Ac Acupuncture 07/09/[address] [place] [address] Mehran Normna MD Follow Up (PCSK9 barrera check) 07/09/2024 Travel 07/08/2024 Telephone [facility] [address] [place] [address] Monica Bruno MD return call 07/08/2024 Orders Only [facility] Scanner 1 scan: (1-Ord) INCOMING RECORDS-LABS, [facility], 07/08/2024 07/08/2024 Telephone [facility] [address] [place] [address] Monica Bruno MD Results 07/07/2024 10:00 AM UNDER PRESSER Office Visit [facility] [address] [place] [address] Monica Bruno MD ER Follow up (06/29/2024, [facility]) 07/07/2024 Telephone [facility] [address] [place] [address] Monica Bruno MD Lab; Results 07/07/2024 Telephone [facility] [address] [place] [address] Freda Serrano MD 07/07/2024 Telephone [facility] [address] [place] [address] Monica Bruno MD Results 07/06/2024 1:00 PM UNDER PRESSER Phone Office Visit [facility] [address] [place] [phone] Keiko Downs [facility] Individual Therapy; Phone Visit 07/06/2024 Telephone [facility] [address] [place] [address] Monica Bruno MD Follow Up 07/06/2024 Travel 07/05/[address] [address] Freda Serrano MD Refill Request (LORazepam (ATIVAN) 0.5 mg tab/) 07/05/[address] [address] Freda Serrano MD Error-please disregard (error) 07/05/[address] [address] Monica Bruno MD Questions (result ) 07/01/2024 Nurse Triage [address] [address] Monica Bruno MD General Illness/Other (Worms.) 06/29/2024 1:00 PM UNDER PRESSER Phone Office Visit [address] [phone] Keiko Downs [facility] Individual Therapy; Phone Visit 06/29/2024 Orders Only [facility] Scanner 1 scan: (1-Ord) [facility], OVA AND PARASITE FECAL, 06/29/2024 06/29/2024 Travel 06/25/2024 Telephone [facility] [address] [place] [address] Facundo Mijares MD Medication Management (HYDROmorphone 2 mg tablet ) 06/24/2024 1:00 PM UNDER PRESSER Procedure Only [address] [address] Tyler Parson L Ac Acupuncture 06/24/2024 Travel 06/24/2024 Telephone [facility] [address] [place] [address] Monica Bruno MD Results (Ekg) 06/24/2024 Telephone [facility] [address] [place] [address] Facundo Mijares MD Appointment (Left elbow pain) 06/23/2024 10:00 AM UNDER PRESSER Ancillary Procedure [facility] [address] [place] [address] 06/22/2024 1:00 PM UNDER PRESSER Phone Office Visit [facility] [address] [place] [phone] Keiko Downs, [facility] Individual Therapy; Phone Visit 06/22/2024 Travel 06/21/2024 Nurse Triage [facility] [address] [place] [address] Monica Bruno MD Error-please disregard 06/21/2024 Telephone [facility] [address] [place] [address] Monica Bruno MD Referral (Echocardiogram ) 06/14/2024 2:00 PM UNDER PRESSER Procedure Only [facility] [address] [place] [address] Tyler Parson L Ac Acupuncture 06/14/2024 Travel 06/11/2024 Telephone [facility] [address] [place] [address] Monica Bruno MD Results 06/10/2024 2:00 PM UNDER PRESSER Procedure Only [facility] [address] [place] [address] Tyler Parson L Ac Acupuncture 06/10/2024 11:15 AM UNDER PRESSER Office Visit [facility] [address] [place] [address] Monica Bruno MD Medication Management; Derm Problem (Right arm); Leg Swelling (Bilateral legs, left > right); Immunization/Inject ion 06/10/2024 Travel 06/08/2024 1:00 PM UNDER PRESSER Phone Office Visit [facility] [address] [place] [address] Keiko Downs, [facility] Individual Therapy; Phone Visit 06/08/2024 Travel 06/04/2024 Refill [facility] [address] [place] [address] Freda Serrano MD Refill Request (Lorazepam) 06/01/2024 1:00 PM UNDER PRESSER Phone Office Visit [facility] [address] [place] [address] Keiko Downs [facility] Individual Therapy; Phone Visit 06/01/2024 Refill [facility] [address] [place] [address] Monica Bruno MD Refill Request (valACYclovir (VALTREX) 1 gram tablet) 05/31/2024 Travel 05/28/2024 1:00 PM UNDER PRESSER Procedure Only [facility] [address] [place] [address] Tyler Parson L Ac Acupuncture 05/28/2024 Travel 05/25/2024 1:00 PM UNDER PRESSER Phone Office Visit [facility] [address] [facility] [address] Keiko Downs [facility] Individual Therapy; Phone Visit 05/25/2024 Travel 05/18/2024 1:00 PM UNDER PRESSER Phone Office Visit [facility] [address] [place] [address] Keiko Downs [facility] Individual Therapy; Phone Visit 05/18/2024 Travel 05/14/2024 1:30 PM UNDER PRESSER Procedure Only [facility] [address] [place] [address] Tyler Parson L Ac Acupuncture 05/14/2024 Travel 05/12/2024 Orders Only [facility] Scanner 1 scan: (1-Ord) [facility], MULTIPLE LABS, 05/12/2024 05/11/2024 1:00 PM UNDER PRESSER Phone Office Visit [facility] [address] [place] [phone] Keiko Downs [facility] Individual Therapy; Phone Visit 05/10/2024 2:15 PM UNDER PRESSER Phone Office Visit [address] [address] Freda Serrano MD Telehealth; Medication Management (Things are not good. Hasn't been getting sleep) 05/10/2024 Travel 05/03/[address] [address] Freda Serrano MD Refill Request (Trazodone, Buspirone) 04/30/2024 1:00 PM UNDER PRESSER Procedure Only [address] [address] Tyler Parson L Ac Acupuncture 04/30/2024 Travel 04/27/2024 1:00 PM UNDER PRESSER Phone Office Visit [address] [phone] Keiko Downs [facility] Individual Therapy; Phone Visit 04/27/[address] [address] Monica Bruno MD TCU Orders (LABS Creatinine) 04/27/2024 Travel 04/26/[address] [address] Monica Bruno MD Results 04/23/2024 3:00 PM UNDER PRESSER Orders Only [address] [address] Lab, [facility] 04/23/2024 Travel from Last 3 Months Immunizations Immunization Administration Dates Next Due COVID-19 vaccine (Pfizer-Bio NTech 30mcg/0.3mL) 12YO+ TOMER-SUCROSE MD DIONNAV 08/21/2021 COVID-19 vaccine (Vidyard NTech 30mcg/0.3mL) PF, MDV 08/09/2020,07/19/2020 DTaP 09/30/2005 Dtap Unspecified Formulation 05/31/2016 Hepatitis A (Adult) 04/27/2008 Hepatitis B (Adult) 03/03/2002,08/11/2001,2001 Influenza Virus, Unspecified 02/18/2007,02/23/20 03 Influenza, High-dose Quadriv alent Inactivated 02/07/2014,03/08/2011,04/28/2010,2006,03/11/2005,02/23/2004 Influenza, IIV3 (Age 6-35 mos) 02/07/2014,2010 Influenza, IIV3 (Age >=3 years) 05/21/19 13,04/28/2010,01/30/2009,2007,09/30/2005,03/11/2005,02/23/2004 Influenza, IIV4 03/16/2022,03/27/2021,02/24/2020 Influenza, Inactivated IIV3 (Age 65+ Years) Preserv Free 06/10/2024 MMR 09/24/1999 Pneumococcal Poly,23-Valent (Pneumovax) 03/25/2017,07/11/2009,03/25/2007,2001 Td Adult (Tetanus And Diphth eria Toxoids, Not Adsorbed) 05/31/2016 Tdap 05/31/2016,09/30/2005 Tuberculin (PPD) 12/16/2008 Typhoid (injectable) [...] PHQ-2 Answer Date Recorded PHQ-2 TOTAL SCORE 1 05/31/2024 Social Connections Answer Date Recorded Do you [...] is your housing situation today? 1 06/04/2023 Utilities Answer Date Recorded Do you have trouble paying f or utilities (for example, heat, electricity, water, phone)? 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 Not on file Not on file Obstetrics History Para Term AB IAB SAB Ectopic Multiple Livin g Live Births 2 0 Date Outcome GA Total Labor Labor/2nd/3rd Weight Sex Type Anes PTL Venita A1 A5 Name Clin Last Filed Vital Signs Vital Sign Reading Time Taken Comments Blood Pressure 135/79 07/16/2024 9:20 AM UNDER PRESSER Pulse 83 07/16/2024 9:20 AM UNDER PRESSER Temperature 36.6 C (97.9 F) 07/16/2024 9:20 AM UNDER PRESSER Respiratory Rate 16 04/01/2022 3:21 PM UNDER PRESSER Oxygen Saturation 98% 07/16/2024 9:20 AM UNDER PRESSER Inhaled Oxygen Concentration - - Weight 83.4 kg (183 lb 12.8 oz) 07/16/2024 9:20 AM UNDER PRESSER Height 174 cm (5' 8.5) 04/14/2023 2:10 PM UNDER PRESSER Body Mass Index 27.54 04/14/2023 2:10 PM UNDER PRESSER Plan of Treatment Upcoming Encounters Date Type Department Care Team (Late st Contact Info) Description 07/22/2024 1:20 PM CDT Office Visit [facility] [address] [place] [address] Facundo Mijares MD [address] [place] [address] 07/22/2024 2:00 PM CDT Procedure Only [facility] [address] [place] [address] Tyler Parson L Ac [address] [place] [address] 07/27/2024 1:00 PM CDT Phone Office Visit [facility] [address] [place] [address] Keiko Downs LICSW [address] [place] [address] 07/29/2024 2:00 PM CDT Procedure Only [facility] [address] [place] [address] Tyler Parson L Ac [address] [place] [address] 08/03/2024 2:00 PM CDT Procedure Only [facility] [address] [place] [address] Tyler Parson L Ac [address] [place] [address] 08/09/2024 1:15 PM CDT Phone Office Visit [facility] [address] [place] [address] Freda Serrano MD [address] [place] [address] 08/10/2024 1:00 PM CDT Phone Office Visit [facility] [address] [place] [phone] Keiko Downs LICSW [address] [place] [address] 08/12/2024 2:00 PM CDT Procedure Only [facility] [address] [place] [address] Tyler Parson L Ac [address] [place] [address] 08/17/2024 1:00 PM CDT Phone Office Visit [facility] [address] [place] [phone] Keiko Downs LICSW [address] [place] [address] 08/19/2024 2:00 PM CDT Procedure Only [facility] [address] [place] [address] Tyler Parson L Ac [address] [place] [address] 08/24/2024 1:00 PM CDT Phone Office Visit [facility] [address] [place] [phone] Keiko Downs [employer] [address] [place] [address] 08/26/2024 1:00 PM CDT Procedure Only [facility] [address] [place] [address] Tyler Parson L Ac [address] [place] [address] 08/31/2024 1:00 PM CDT Phone Office Visit [facility] [address] [place] [phone] Keiko Downs LICSW [address] [place] [address] 09/02/2024 1:30 PM CDT Procedure Only [facility] [address] [place] [address] Tyler Parson L Ac [address] [place] [address] 09/07/2024 1:00 PM CDT Phone Office Visit [facility] [address] [place] [phone] Keiko Downs [facility] [address] [place] [address] 09/10/2024 2:00 PM CDT Procedure Only [facility] [address] [place] [address] Tyler Parson L Ac [address] [place] [address] 09/16/2024 2:00 PM CDT Procedure Only [facility] [address] [place] [address] Tyler Parson L Ac [address] [place] [address] 09/23/2024 2:00 PM CDT Procedure Only [facility] [address] [place] [address] Tyler Parson, L Ac [address] [place] [address] 09/30/2024 1:00 PM CDT Procedure Only [facility] [address] [place] [address] Tyler Parson, L Ac [address] [place] [address] 10/07/2024 2:00 PM CDT Procedure Only [facility] [address] [place] [address] Tyler Parson, [place] Ac [address] [place] [address] 10/14/2024 2:00 PM CDT Procedure Only [facility] [address] [place] [address] Tyler Parson, L Ac [address] [place] [address] 10/21/2024 2:00 PM CDT Procedure Only [facility] [address] [place] [address] Tyler Parson, [place] Ac [address] [place] [address] 10/28/2024 2:00 PM CDT Procedure Only [facility] [address] [place] [address] Tyler Parson, [place] Ac [address] [place] [address] 11/04/2024 1:00 PM CDT Procedure Only [facility] [address] [place] [address] Tyler Parson L Ac [address] [place] [address] Health Maintenance Due Date Last Done Comments Pneumococcal series for age 50+ (3 of 3 - PCV) 03/25/2018 03/25/2017, 07/11/2009, 03/25/2007, Additional history exists RSV vaccine for adults or (1 - Risk 60-74 years 1-dose series) 2019 COVID-19 vaccine series ( season) 2024 06/11/2023, 08/21/2021, 02/21/2021, Additional history exists DEXA/DXA scan for age 65+ 04/11/20242023 (Verified in Care Everywhere or Patient Record), 09/24/2023, 09/19/2021, Additional history exists Medicare Wellness for age 65+ 2024 06/01/2019 BMI (ht and wt on same day) for age 18+ 04/14/2024 04/14/2023, 06/06/2022, 03/26/2022, Additional history exists Mammogram for age 45-75 07/31/2024 08/01/19, 05/13/2022, 05/10/2021, Additional history exists Depression screening for age 12+ 06/04/2025 06/04/2024, 06/01/2024, 06/01/2024, Additional history exists Tetanus booster 05/31/2026 05/31/2016, 09/30/2005 Pap test for age 21-65 11/03/2026 , 11/04/2023, 10/04/2022, Additional history exists Lipids for age 45-75 07/08/2028 07/08/2023, 09/04/2021, 02/24/2020, Additional history exists Colonoscopy through age 75 01/29/203201/28, 08/12/2018, 08/12/2018, Additional history exists Tdap Completed 05/31/2016, 09/30/2005 Hepatitis C screening for ag e 18-79 Completed 09/30/2017, 04/02/2016 HIV for age 15-65 Completed 06/01/2018, , 08/28/2015, Additional history exists Zoster (shingles) series for age 50+ Completed 08/28/2020, 05/11/2020 Influenza Vaccine Completed 06/10/2024, , 03/27/2021, Additional history exists Procedures Procedure Name Priority Date/Time Associated Diagnosis Comments BEDSIDE US STUDY ARCHIVE Routine 07/16/2024 10:44 AM UNDER PRESSER Chronic polyarticular juvenile rheumatoid arthritis (HC) Effusion of elbow joint, left Left elbow pain PARASITE DIRECT EXAM Routine 07/16/2024 10:18 AM UNDER PRESSER XR FOOT 3 VIEWS LEFT Routine 07/16/2024 9:06 AM UNDER PRESSER Foot pain, left ACUPUNCTURE PLAN OF CARE Routine 07/15/2024 12:03 PM UNDER PRESSER Other low back pain ACUPUNCTURE PLAN OF CARE Routine 07/09/2024 3:39 PM UNDER PRESSER Other low back pain SCAN CORRESP-LABORATORY RESULTS 07/08/2024 12:00 AM UNDER PRESSER OVA + PARASITE EXAM Routine 07/07/2024 4 :03 PM UNDER PRESSER Change in stool TSH WITH REFLEX Routine 07/07/2024 3:15 PM UNDER PRESSER Hypothyroidism, unspecified type COMP METABOLIC PANEL Routine 07/07/2024 3:15 PM UNDER PRESSER Change in stool CBC WITH AUTO DIFFERENTIAL Routine 07/07/2024 3:15 PM UNDER PRESSER Change in stool FOLIC ACID Routine 07/07/2024 3:15 PM UNDER PRESSER Change in stool VITAMIN B12 Routine 07/07/2024 3:15 PM UNDER PRESSER Change in stool URINALYSIS MICROSCOPIC Routine 07/07/2024 11:16 AM UNDER PRESSER Vaginal itching URINALYSIS MACROSCOPIC - [facility] ONLY POC DIP ([facility]) Routine 07/07/2024 11:16 AM UNDER PRESSER Vaginal itching URINE CULTURE Routine 07/07/2024 10:45 AM UNDER PRESSER Abnormal urine SCAN-PATHOLOGY REPORT 06/29/2024 12:00 AM UNDER PRESSER ACUPUNCTURE PLAN OF CARE Routine 06/24/2024 4:03 PM UNDER PRESSER Other low back pain ECHO TTE COMPLETE WO CONTRAST Routine 06/23/2024 10:43 AM UNDER PRESSER Bilateral leg edema ACUPUNCTURE PLAN OF CARE Routine 06/14/2024 3:20 PM UNDER PRESSER Other low back pain ACUPUNCTURE PLAN OF CARE Routine 06/10/2024 3:30 PM UNDER PRESSER Other low back pain VITAMIN D 25 (DEFICIENCY) Routine 06/10/2024 1:40 PM UNDER PRESSER Osteopenia, unspecified location HEMOGLOBIN A1C Routine 06/10/2024 1:40 PM UNDER PRESSER Prediabetes CBC WITH AUTO DIFFERENTIAL Routine 06/10/2024 1:40 PM UNDER PRESSER Bilateral leg edema COMP METABOLIC PANEL Routine 06/10/2024 1:40 PM UNDER PRESSER Bilateral leg edema ACUPUNCTURE PLAN OF CARE Routine 05/28/2024 3:04 PM UNDER PRESSER Other low back pain SCAN-LABORATORY REPORT 05/12/2024 12:00 AM UNDER PRESSER ACUPUNCTURE PLAN OF CARE Routine 04/30/2024 1:03 PM UNDER PRESSER Other low back pain CREATININE Routine 04/23/2024 1:19 PM UNDER PRESSER Osteopenia, unspecified location HPV HIGH RISK Routine 11/04/2023 3:50 PM CDT XR DXA BONE DENSITY 2 SITES AXIAL Routine 09/24/2023 2:28 PM CDT Osteopenia, unspecified location Menopause XR MAMMO EVA BILAT SCREEN Routine 08/01/2023 3:29 PM CDT Visit for screening mammogram LIPID PANEL W REFLEX MEASURED LDL Routine 07/08/2023 12:07 PM UNDER PRESSER Hyperlipidemia, unspecified hyperlipidemia type SCAN-COLONOSCOPY 01/28/2022 1:00 PM CDT ANTI HIV 1/2 Routine 06/01/2018 4:02 PM UNDER PRESSER Exposure to STD ANTI HCV Routine 09/30/2017 5:38 PM CDT STD exposure from Last 3 Months or Most Recently Relevant to Health Maintenance Results * BEDSIDE US STUDY ARCHIVE (07/16/2024 10:44 AM UNDER PRESSER) Narrative Maureen Martinez - 07/16/2024 10:44 AM UNDER PRESSER The patient was seen for ultrasound guided injection by Dr. Facundo Mijares. Ultrasound was not used for diagnostic purposes, but to guide the needle placement and document the position of the injection. See patient's EPIC encounter for the detail of the procedure; see SUSANNA for saved images of the injection. us Facundo Mijares MD PROCEDURE ORD Final Resu lt * PARASITE DIRECT EXAM (07/16/2024 10:18 AM UNDER PRESSER) PARASITE IDENTIFICATION [facility], Comment: Specimen submitted is an artifact (not a worm). 07/16/2024 10:1 8 AM UNDER PRESSER 07/16/2024 10:18 AM UNDER PRESSER us Maria G Villavicencio DO MICROBIOLOGY Final Result [facility] [address] [place] [address], [facility], [address] [place] [address] * XR FOOT 3 VIEWS LEFT (07/16/2024 9:06 AM UNDER PRESSER) Anatomical Region Laterality Modality FEET, FOOT L Computed Radiogr aphy 07/16/2024 3:42 PM UNDER PRESSER Narrative 07/16/2024 3:42 PM UNDER PRESSER For Patients: As a result of the Cures Act, medical imaging exams and procedure reports are released immediately into your electronic medical record. You may view this report before your referring provider. If you have questions, please contact your health care provider. Indication: Left foot pain. Technique: Left foot 3 views Comparison: 02/24/2015 Findings: Similar appearance of the proximal phalanges of the 2nd, 3rd and 4th toes. Midfoot alignment is maintained. There is no acute fracture. Impression: Chronic changes 2 several proximal phalanges. Otherwise unremarkable. Dictated by Walter Haji MD @ 07/16/2024 3:42:40 PM (Electronically Signed) Procedure Note Walter Haji MD - 07/16/2024 For Patients: As a result of the Cures Act, medical imagingexams and procedure reports are released immediately into your electronicmedical record. You may view this report before your referring provider.If you have questions, please contact your health care provider. Indication: Left foot pain. Technique: Left foot 3 views Comparison: 02/24/2015 Findings: Similar appearance of the proximal phalanges of the 2nd, 3rd and 4th toes.Midfoot alignment is maintained. There is no acute fracture. Impression: Chronic changes 2 several proximal phalanges. Otherwise unremarkable. Dictated by Walter Haji MD @ 07/16/2024 3:42:40 PM (Electronically Signed) us Facundo Mijares MD GENERAL IMAGING Final Resu lt * SCAN CORRESP-LABORATORY RESULTS (07/08/2024 12:00 AM UNDER PRESSER) us Scanner OTHER Final Result * OVA + PARASITE EXAM (07/07/2024 4:03 PM UNDER PRESSER) OVA AND PARASITES, CONC AND PERM SMEAR SEE NOTE [facility] [place] Comment: OVA AND PARASITES, CONC AND PERM SMEAR Micro Number: [id number] Test Status: Final Specimen Source: Feces Specimen Quality: Adequate CONCENTRATION 1: No ova or parasites seen TRICHROME 1: No ova or parasites seen Routine Ova and Parasite exam may not detect some parasites that occasionally cause diarrheal illness. Cryptosporidium Antigen and/or Cyclospora and Isospora Exam may be ordered to detect these parasites. One negative sample does not necessarily rule out the presence of a parasitic infection. For additional information, please refer to [email or web address].[employer]/faq/CDA781 (This link is being provided for informational/ educational purposes only.) Stool STOOL SPECIMEN / Unknown 07/07/2024 4:03 PM UNDER PRESSER 07/07/2024 4:04 PM UNDER PRESSER Monica Bruno MD SEND OUTS Final Resul t Performing Organization Address City/[facility]/ZIP Co de Phone Number [email or web address] [facility] [address] [place] [address], [facility] [address] [place] [address] * TSH WITH REFLEX (07/07/2024 3:15 PM UNDER PRESSER) TSH W/REFLEX TO FT4 1.09 0.40 - 4.50 mIU/L [facility] Blood BLOOD SPECIMEN / Unknown 07/07/2024 3:15 PM UNDER PRESSER 07/07/2024 3:15 PM UNDER PRESSER Monica Bruno MD CHEMISTRY Final Resul t Performing Organization Address City/[facility]/ZIP Co de Phone Number [email or web address] [facility] [address] [place] [address], [place] [phone] [facility] [address] [place] [address] * CBC AND DIFFERENTIAL (07/07/2024 3:15 PM UNDER PRESSER) Only the most recent of2 resultswithin the time period is included. WHITE BLOOD CELL COUNT 5.6 3.8 - 10.8 Thousand/u L [facility] RED BLOOD CELL COUNT 4.23 3.80 - 5.10 Million/uL [facility] HEMOGLOBIN 13.1 11.7 - 15.5 g/dL [facility] HEMATOCRIT 39.8 35.0 - 45.0 % [facility] MCV 94.1 80.0 - 100.0 fL [facility] MCH 31.0 27.0 - 33.0 pg [facility] MCHC 32.9 32.0 - 36.0 g/dL [facility] Comment: For adults, a slight decrease in the calculated MCHC value (in the range of 30 to 32 g/dL) is most likely not clinically significant; however, it should be interpreted with caution in correlation with other red cell parameters and the patient's clinical condition. RDW 12.4 11.0 - 15.0 % [facility] PLATELET COUNT 271 140 - 400 Thousand/u L [facility] MPV 10.5 7.5 - 12.5 fL [facility] ABSOLUTE NEUTROPHILS 3,578 1,500 - 7,800 cells/uL [facility] ABSOLUTE LYMPHOCYTES 1,490 850 - 3,900 cells/uL [facility] ABSOLUTE MONOCYTES 431 200 - 950 cells/uL [facility] ABSOLUTE EOSINOPHILS 50 15 - 500 cells/uL [facility] ABSOLUTE BASOPHILS 50 0 - 200 cells/uL [facility] NEUTROPHILS 63.9 % [facility] LYMPHOCYTES 26.6 % [facility] MONOCYTES 7.7 % [facility] EOSINOPHILS 0.9 % [facility] BASOPHILS 0.9 % [facility] Blood BLOOD SPECIMEN / Unknown 07/07/2024 3:15 PM UNDER PRESSER 07/07/2024 3:15 PM UNDER PRESSER us Monica Bruno MD HEMATOLOGY Final Resul t [email or web address] [facility] [address] [place] [address], [facility] [address] [place] [address] * FOLIC ACID (07/07/2024 3:15 PM UNDER PRESSER) [facility] FOLATE, SERUM 23.6 ng/mL [facility] Comment: Reference Range Low: <3.4 Borderline: 3.4-5.4 Normal: >5.4 Blood BLOOD SPECIMEN / Unknown 07/07/2024 3:15 PM UNDER PRESSER 07/07/2024 3:15 PM UNDER PRESSER Monica Bruno MD CHEMISTRY Final Resul t [facility] [address] [address], [facility] [address] [place] [phone] * VITAMIN B12 (07/07/2024 3:15 PM UNDER PRESSER) [facility] VITAMIN B12 565 200 - 1,100 pg/mL [facility] [[email or web address]] [facility] [place] Blood BLOOD SPECIMEN / Unknown 07/07/2024 3:15 PM UNDER PRESSER 07/07/2024 3:15 PM UNDER PRESSER Monica Bruno MD CHEMISTRY Final Resul t [facility] [address] [address], [facility] [address] [place] [address] * (ABNORMAL) COMP METABOLIC PANEL (07/07/2024 3:15 PM UNDER PRESSER) Only the most recent of2 resultswithin the time period is included. [facility] GLUCOSE 141(H) 65 - 99 mg/dL [employer] [place] Comment: Fasting reference interval For someone without known diabetes, a glucose value >125 mg/dL indicates that they may have diabetes and this should be confirmed with a follow-up test. UREA NITROGEN (BUN) 23 7 - 25 mg/dL [facility] CREATININE 0.94 0.50 - 1.05 mg/dL [facility] EGFR 67 > OR = 60 mL/min/1. 73m2 [facility] BUN/CREATININE RATIO SEE NOTE: 6 - 22 (calc) [facility] Comment: Not Reported: BUN and Creatinine are within reference range. SODIUM 138 135 - 146 mmol/L [facility] POTASSIUM 4.2 3.5 - 5.3 mmol/L [facility] CHLORIDE 104 98 - 110 mmol/L [facility] CARBON DIOXIDE 23 20 - 32 mmol/L [facility] CALCIUM 9.7 8.6 - 10.4 mg/dL [facility] PROTEIN, TOTAL 7.1 6.1 - 8.1 g/dL [facility] ALBUMIN 4.5 3.6 - 5.1 g/dL [facility] GLOBULIN 2.6 1.9 - 3.7 g/dL (calc) [facility] ALBUMIN/GLOBULIN RATIO 1.7 1.0 - 2.5 (calc) [facility] BILIRUBIN, TOTAL 0.4 0.2 - 1.2 mg/dL [facility] ALKALINE PHOSPHATASE 62 37 - 153 U/L [facility] AST 25 10 - 35 U/L [facility] ALT 20 6 - 29 U/L [facility] Blood BLOOD SPECIMEN / Unknown 07/07/2024 3:15 PM UNDER PRESSER 07/07/2024 3:15 PM UNDER PRESSER us Monica Bruno MD CHEMISTRY Final Resul t [email or web address] [facility] [address] [place] [address], [facility] [address] [place] [address] * POCT Urinalysis Dipstick Only (07/07/2024 11:16 AM UNDER PRESSER) PH 6.0 5.0 - 8.0 [facility] SPECIFIC GRAVITY 1.020 1.001 - 1.035 [facility] GLUCOSE NEGATIVE NEGATIVE [facility] BILIRUBIN NEGATIVE NEGATIVE [facility] KETONES NEGATIVE NEGATIVE [facility] OCCULT BLOOD NEGATIVE NEGATIVE [facility] PROTEIN NEGATIVE NEGATIVE [facility] NITRITE NEGATIVE NEGATIVE [facility] LEUKOCYTE ESTERASE NEGATIVE NEGATIVE [facility] Urine URINE SPECIMEN / Unknown 07/07/2024 11:16 AM UNDER PRESSER 07/07/2024 11:17 AM UNDER PRESSER Monica Bruno MD URINE Final Resul t [facility] [address] [place] [address], [facility] [address] [place] [address] * (ABNORMAL) URINALYSIS MICROSCOPIC (07/07/2024 11:16 AM UNDER PRESSER) RBC 3-5(A) 0-2, None Seen /HPF 07/07/2024 4:10 PM UNDER PRESSER [facility] WBC 0-2 0-2, 3-5, None Seen /HPF 07/07/2024 4:10 PM UNDER PRESSER [facility] BACTERIA None Seen None Seen, Rare, Few Bacteria/ HPF 07/07/2024 4:10 PM UNDER PRESSER [facility] EPITHELIAL CELLS Moderate(A ) None Seen, Few Epi/HPF 07/07/2024 4:10 PM UNDER PRESSER [facility] HYALINE CASTS 0-2 0-2, 3-5 /LPF 07/07/2024 4:10 PM UNDER PRESSER [facility] CALCIUM OXALATE CRYSTALS Present(A) (none) 07/07/2024 4:10 PM UNDER PRESSER [facility] Urine URINE SPECIMEN / Unknown Non-Blood / Unknown 07/07/2024 11:16 AM UNDER PRESSER 07/07/2024 11:16 AM UNDER PRESSER us Monica Bruno MD URINE Final Resul t Performing Organization Address City/[facility]/ZIP Co de Phone Number [facility] [address] [place] [address], [place] * URINE CULTURE (07/07/2024 10:45 AM UNDER PRESSER) CULTURE <10,000 CFU/mL multiple organisms 07/09/2024 2:29 PM UNDER PRESSER [facility] Urine URINE SPECIMEN / Unknown Non-Blood / Unknown 07/07/2024 10:45 AM UNDER PRESSER 07/08/2024 8:24 AM UNDER PRESSER us Monica Bruno MD MICROBIOLOGY Final Resul t Performing Organization Address [facility] Co de Phone Number [facility] [address] [place] [address], [place] * SCAN-PATHOLOGY REPORT (06/29/2024 12:00 AM UNDER PRESSER) us Scanner OTHER Final Result * ECHO TTE COMPLETE WO CONTRAST (06/23/2024 10:43 AM UNDER PRESSER) AORTIC VALVE MEAN PG 6 mmHg EJECTION FRACTION 75 % PEAK TR VELOCITY 2.4 m/s LVEDD 4.2 cm EJECTION FRACTION 70 - 75% Anatomical Region Laterality Modality Ultrasound 06/23/2024 10:1 6 AM UNDER PRESSER Narrative 06/23/2024 11:09 AM UNDER PRESSER ECHOCARDIOGRAM JULITA CEJA : 1960 64 years Study Date: 06/23/2024 10:16:33 AM Gender: F BP: 114/70 mmHg Height: 173.00 cm BSA: 2.00 m Weight: 86.00 kg Tech: ROSANNE Referring MD: MONICA BRUNO Site: [facility] Reading Location: Mobile-OP Patient Location: Outpatient. Procedure: 2D, Color Doppler and Spectral Doppler. Indication for study: Biloateral leg edema Cardiac Rhythm: Regular.Study quality: Fair. Final Impressions: 1. Normal LV size, normal wall thickness, estimated EF of 70 - 75%. 2. Normal RV size and systolic function. 3. Normal diastolic function. 4. No valve disease. 5. Normal estimated PA and RA pressures. Chamber Sizes and Function Normal left ventricular size, normal wall thickness, hyperdynamic global systolic function with an estimated EF of 70 - 75%. No resting regional wall motion abnormality visualized. Left atrial size is normal. Right ventricular cavity size is normal, global systolic RV function is normal. The right atrium is normal. Right atrial volume index is 17 ml/m . Right atrial area is 16 cm . The pulmonary artery is not well visualized. The sinus of Valsalva is normal sized. The ascending aorta is normal sized. Valves, RV Pressures and Diastolic Function The aortic valve is normal in structure, no stenosis and no regurgitation. The mitral valve is normal in structure, trace mitral regurgitation. Normal diastolic function. The tricuspid valve is normal in structure. Tricuspid regurgitation is trace regurgitation. The tricuspid regurgitant velocity is 2.4 m/s, the estimated right ventricular systolic pressure is 23 mmHg plus right atrial pressure. The pulmonic valve is normal. Trace pulmonary regurgitation. Masses, Effusion, Shunts There is no pericardial effusion. The inferior vena cava is normal sized, respiratory size variation greater than 50%. No left to right shunting was detected by limited color flow Doppler interrogation of the interatrial septum. MEASUREMENTS AND CALCULATIONS 2-D Measurements and LV Function: LVID (d) 4.2 cm LV FS% (2D) 49 % LVID (s) 2.1 cm LVOT diameter 2.2 cm IVS (d) 1.2 cm HR 80 bpm LVPW (d) 1.0 cm LA Vol index 16 ml/m2 Ao Sinus 3.3 cm RA Vol index 17 ml/m2 Asc Ao 3.6 cm RA area 16 cm LA 3.8 cm RV Max 4C (d) 3.3 cm Diastology: Mitral Tissue Doppler E Peak 0.9 m/s e', Septum 0.08 m/s A Peak 1.0 m/s e', Lateral 0.09 m/s E/A 0.9 E/e' Average 10.16 DT 184 msec Aortic Valve: Vmax 1.7 m/s SHARI (V) 3.24 cm VTI 0.38 m SHARI (I) 2.94 cm LVOT V max 1.4 m/s Max PG 11 mmHg LVOT VTI 0.30 m Mean PG 6 mmHg SV 111 ml Dim Index 0.79 SV index 56 ml/m CO 8.9 l/min CI 4.4 l/min/m Mitral Valve: MVA 4.1 cm MV P 1/2 53 msec Tricuspid Valve and estimated PA pressures: TR Vmax 2.4 m/s TAPSE 2.4 cm TR maxG 23 mmHg . This study was interpreted by an [facility] accredited facility. CC: [facility] (med [facility]) [facility]. Final Procedure Note Geoffrey Coyne MD - 06/23/2024 ECHOCARDIOGRAM JULITA CEJA : 1960 64 years Study Date: 06/23/2024 10:16:33 AM Gender: F BP: 114/70 mmHg Height: 173.00 cm BSA: 2.00 m Weight: 86.00 kg Tech: [facility] Referring MD: MONICA BRUNO Site: [facility] Reading Location: Mobile-OP Patient Location: Outpatient. Procedure: 2D, Color Doppler and Spectral Doppler. Indication for study: Biloateral leg edema Cardiac Rhythm: Regular.Study quality: Fair. Final Impressions: 1. Normal LV size, normal wall thickness, estimated EF of 70 - 75%. 2. Normal RV size and systolic function. 3. Normal diastolic function. 4. No valve disease. 5. Normal estimated PA and RA pressures. Chamber Sizes and Function Normal left ventricular size, normal wall thickness, hyperdynamic globalsystolic function with an estimated EF of 70 - 75%. No resting regionalwall motion abnormality visualized. Left atrial size is normal. Rightventricular cavity size is normal, global systolic RV function is normal.The right atrium is normal. Right atrial volume index is 17 ml/m . Rightatrial area is 16 cm . The pulmonary artery is not well visualized. Thesinus of Valsalva is normal sized. The ascending aorta is normal sized. Valves, RV Pressures and Diastolic Function The aortic valve is normal in structure, no stenosis and no regurgitation.The mitral valve is normal in structure, trace mitral regurgitation.Normal diastolic function. The tricuspid valve is normal in structure.Tricuspid regurgitation is trace regurgitation. The tricuspid regurgitantvelocity is 2.4 m/s, the estimated right ventricular systolic pressure is23 mmHg plus right atrial pressure. The pulmonic valve is normal. Tracepulmonary regurgitation. Masses, Effusion, Shunts There is no pericardial effusion. The inferior vena cava is normal sized,respiratory size variation greater than 50%. No left to right shunting wasdetected by limited color flow Doppler interrogation of the interatrialseptum. MEASUREMENTS AND CALCULATIONS 2-D Measurements and LV Function: LVID (d) 4.2 cm LV FS% (2D) 49 % LVID (s) 2.1 cm LVOT diameter 2.2 cm IVS (d) 1.2 cm HR 80 bpm LVPW (d) 1.0 cm LA Vol index 16 ml/m2 Ao Sinus 3.3 cm RA Vol index 17 ml/m2 Asc Ao 3.6 cm RA area 16 cm LA 3.8 cm RV Max 4C (d) 3.3 cm Diastology: Mitral Tissue Doppler E Peak 0.9 m/s e', Septum 0.08 m/s A Peak 1.0 m/s e', Lateral 0.09 m/s E/A 0.9 E/e' Average 10.16 DT 184 msec Aortic Valve: Vmax 1.7 m/s SHARI (V) 3.24 cm VTI 0.38 m SHARI (I) 2.94 cm LVOT V max 1.4 m/s Max PG 11 mmHg LVOT VTI 0.30 m Mean PG 6 mmHg SV 111 ml Dim Index 0.79 SV index 56 ml/m CO 8.9 l/min CI 4.4 l/min/m Mitral Valve: MVA 4.1 cm MV P 1/2 53 msec Tricuspid Valve and estimated PA pressures: TR Vmax 2.4 m/s TAPSE 2.4 cm TR maxG 23 mmHg . This study was interpreted by an [facility] accredited facility. CC: [facility] (med records) [facility]. Final Monica Bruno MD ECHO ORD Final Resul t * (ABNORMAL) HEMOGLOBIN A1C (06/10/2024 1:40 PM UNDER PRESSER) HEMOGLOBIN A1C 5.9(H) <5.7 % of total Hgb [facility] Comment: For someone without known diabetes, a hemoglobin A1c value between 5.7% and 6.4% is consistent with prediabetes and should be confirmed with a follow-up test. For someone with known diabetes, a value <7% indicates that their diabetes is well controlled. A1c targets should be individualized based on duration of diabetes, age, comorbid conditions, and other considerations. This assay result is consistent with an increased risk of diabetes. Currently, no consensus exists regarding use of hemoglobin A1c for diagnosis of diabetes for children. Blood BLOOD SPECIMEN / Unknown 06/10/2024 1:40 PM UNDER PRESSER 06/10/2024 1:40 PM UNDER PRESSER Monica Bruno MD CHEMISTRY Final Resul t [email or web address] [facility] [address] [place] [address], [employer] [address] * VITAMIN D 25 (DEFICIENCY) (06/10/2024 1:40 PM UNDER PRESSER) VITAMIN D,25-OH,TOTAL,IA 45 30 - 100 ng/mL [facility] Comment: Vitamin D Status 25-OH Vitamin D: Deficiency: <20 ng/mL Insufficiency: 20 - 29 ng/mL Optimal: > or = 30 ng/mL For 25-OH Vitamin D testing on patients on D2-supplementation and patients for whom quantitation of D2 and D3 fractions is required, the QuestAssureD(TM) 25-OH VIT D, (D2,D3), LC/MS/MS is recommended: order code 80275 (patients >2yrs). See Note 1 Note 1 For additional information, please refer to http://education.Jimubox/faq/DWB983 (This link is being provided for informational/ educational purposes only.) Blood BLOOD SPECIMEN / Unknown 06/10/2024 1:40 PM UNDER PRESSER 06/10/2024 1:40 PM UNDER PRESSER Monica Bruno MD SEND OUTS Final Resul t [email or web address] [facility] [address] [facility] [place] [address], [facility] [address] [place] [address] * SCAN-LABORATORY REPORT (05/12/2024 12:00 AM UNDER PRESSER) Scanner OTHER Final Result * (ABNORMAL) CREATININE (04/23/2024 1:19 PM UNDER PRESSER) CREATININE 1.09(H) 0.50 - 1.05 mg/dL [facility] EGFR 56(L) > OR = 60 mL/min/1.73 m2 [facility] Blood BLOOD SPECIMEN / Unknown 04/23/2024 1:19 PM UNDER PRESSER 04/23/2024 1:20 PM UNDER PRESSER Monica Bruno MD CHEMISTRY Final Resul t [email or web address] [facility] [address] [facility] [place] [address], [facility] [address] [place] [address] * HPV HIGH RISK (11/04/2023 3:50 PM CDT) TYPE 16 Negative Negative 11/07/2023 4:00 PM CDT [facility] TYPE 18 Negative Negative 11/07/2023 4:00 PM CDT [facility] OTHER HIGH RISK TYPES Negative Negative 11/07/2023 4:00 PM CDT [facility] Other (Cervical) 11/04/2023 3:50 PM CDT 11/06/2023 9:26 AM CDT Narrative [facility] - 11/07/2023 4:00 PM CDT HPV types 16, 18, 31, 33, 35, 39, 45, 51, 52, 56, 58, 59, 66 and 68 DNA were undetectable or below the pre-set threshold. Methodology: Jacek Karen 4800 HPV Test us Corine Guillaume MD MICROBIOLOGY Final Resu lt [facility] [address] [place] [address], [place] * (ABNORMAL) XR DXA BONE DENSITY [...] to assess therapeutic efficacy. Ann Jay PA-C [employer] [facility] 09/30/2023 Narrative 09/30/2023 1:49 PM CDT For Patients: Results are automatically released to your [employer] ([employer]) account once available, in compliance with federal regulations. This means that you may see your results before your provider has had a chance to review them. Please allow 2-3 business days for your provider to comment on the results. XR DXA Bone Mineral Density (BMD) EXAM LOCATION: [facility] [address] [facility] [address] PATIENT NAME: Julita Ceja DATE OF : 1960 EXAM DATE: 09/24/2023 REQUESTING PROVIDER: Monica Bruno MD GENDER AT : female HEIGHT: 5' 8.5 (04/14/2023) WEIGHT: 158 lb 14.4 oz (09/16/2023) MENOPAUSAL STATUS: Postmenopausal [...] two scanners are made by the same gis programmer. PROCEDURE: Dual-energy x-ray absorptiometry performed with routine [...] Change from prior in 2021: Increase 1.6%. WHO criteria: Normal: T-score at or above -1 SD Osteopenia: T-score between -1.1 and -2.4 SD Osteoporosis: T-score at or below -2.5 SD FRAX RISK CALCULATION (USED FOR OSTEOPENIA ONLY): 10-year probability of major osteoporotic fracture: 26.7%. 10-year probability of hip fracture: 3.2%. Monica Bruno MD DEXA Final Resul t * XR MAMMO EVA BILAT SCREEN (08/01/2023 [...] care provider. XR MAMMO EVA BILAT SCREEN [[id number]] CLINICAL HISTORY: This is an asymptomatic 63 y.o. patient. INDICATION FOR EXAM: Mammogram Screening. TECHNIQUE: CC & MLO views were obtained. This study was evaluated with the assistance of Computer-Aided Detection. Breast Tomosynthesis was used in interpretation. COMPARISON FILM: Yes 05/13/22 [employer] 05/10/21 [employer] FINDINGS: The breasts have scattered areas of fibroglandular density. There are no dominant masses, suspicious micro calcifications or areas of architectural distortion. Monica Bruno MD MAMMO Final Resul t * (ABNORMAL) LIPID PANEL W REFLEX MEASURED LDL (07/08/2023 12:07 PM UNDER PRESSER) CHOLESTEROL,TOTAL 285(H) 100 - 199 mg/dL 07/08/2023 9:55 PM UNDER PRESSER [facility] Comment: Cholesterol, Total Reference Ranges Desirable <200 mg/dL Borderline 200-239 mg/dL High >=240 mg/dL TRIGLYCERIDES 97 <150 mg/dL 07/08/2023 9:55 PM UNDER PRESSER [employer] [facility] HDL CHOLESTEROL 76 >40 mg/dL 9:55 PM UNDER PRESSER [facility] NON-HDL CHOLESTEROL 209(H) <145 mg/dl 07/08/2023 9:55 PM UNDER PRESSER [facility] CHOL/HDL RATIO 3.75 <4.50 07/08/2023 9:55 PM UNDER PRESSER [facility] LDL CHOLESTEROL 190(H) <=130 mg/dL 07/08/2023 9:55 PM [facility] VLDL CHOLESTEROL 19 <=30 mg/dL 07/08/2023 9:55 PM [facility] PROVIDER ORDERED STATUS RANDOM 07/08/2023 9:55 PM [facility] Blood BLOOD SPECIMEN / Unknown Venipuncture / Unknown 07/08/2023 12:07 PM UNDER PRESSER 07/08/2023 12:07 PM UNDER PRESSER us Monica Bruno MD CHEMISTRY Final Resul t [facility] [address] [place] [address], * SCAN-COLONOSCOPY (01/28/2022 1:00 PM CDT) Narrative Procedure Note Edison Ceron MD - 01/28/2022 12:02 PM CDT [facility] [address], [address], [place] [address] Patient Name: Julita Ceja Gender: Female Exam Date: 01/28/2022 Visit Number: [id number] Age: 61 Years 9 Months Date of : 1960 Attending MD: Edison Ceron MD Medical Record#: [id number] ----- Procedure: Colonoscopy Indications: Recent history of diverticulitis Referring MD: Referral Self Primary MD: Monica Bruno MD Medications: Intra Procedure Medications: Patient [...] Race: White Ethnicity: Not or Preferred Language: Maltese cc: Monica Bruno MD [facility] [phone] us Edison Ceron MD OTHER Final Resu lt * ANTI HIV 1/2 (06/01/2018 4:02 PM UNDER PRESSER) [facility] HIV-1/HIV-2 ANTIBODY Non-Reacti ve Non-Reacti ve 06/01/2018 8:08 PM UNDER PRESSER [facility] Comment:HIV-1 p24 and HIV-1/ HIV-2 Ab not detected. Blood BLOOD SPECIMEN / Unknown Venipuncture / Unknown 06/01/2018 4:02 PM UNDER PRESSER 06/01/2018 4:02 PM UNDER PRESSER us Monica Bruno MD SEND OUTS Final Resul t [facility] [address] [place] [address], [place] * ANTI HCV (09/30/2017 5:38 PM CDT) Pathologist [facility] HEPATITIS C ANTIBODY Non-React mathieu Non-React mathieu 10/01/2017 2:41 PM CDT [facility] Comment:Antibodies to HCV no t detected; does not exclude the possibility of exposure to HCV. Blood BLOOD SPECIMEN / Unknown Venipuncture / Unknown 09/30/2017 5:38 PM CDT 09/30/2017 5:38 PM CDT Kourtney GUERRERO SEND OUTS Final Result [facility] [address] [place] [address], [place] from Last 3 Months or Most Recently Relevant to [place] [address] MEDICARE PB ONLY [facility] [place]: [place] [address] MEDICARE PART B HB ONLY MEDICARE PART A HB ONLY [facility] [address] MEDICARE PB ONLY [facility] MEDICARE PART B HB ONLY [facility] ATTN: [place] [address] [facility] MEDICARE PPS Advance Directives Documents on File Type Date Recorded Patient Supervisor Cutting Department Expl anation Healthcare Directive 04/01/2022 022 * [...] 6:43 PM 06/10/2011 6:41 PM Care Teams Design Cell Engineer Relationship Specialty Start Date End Date Monica Bruno MD [address] [place] [address] [phone] (work) PCP - General Family Practice 07/01/19 Judie Carreno, AugustaD [address] [place] [address] [place] [address] Pharmacist Medication Management Pharmacology 05/28/23 05/28/25
--- OUTSIDE RECORDS SUMMARY | 2024-07-20 21:25 | XMS_ITS | Data Portability ---
Author Organization [place] [facility] [place] [facility], [facility] Address [address] [place] [address] Assessment No assessment recorded. Plan of Treatment Reminders Order Date Submit Date Provider Last Modified By Organization Details Last Modified Time Details Appointments None recorded. Lab urinalysi s, dipstick 2023 024 abajewy [facility], [address], [place], [address], 13:07:01 Referral pelvic floor therapy referral 2023 024 [facility], [address], [place], [address], 08:14:59 Procedures None recorded. Surgeries None recorded. [...] Available [facility] [address], [place], [address], 06/17/2023 12:42:43 06/17/19 24 06/17/2023 urina lysis , dipst ick Clarity-Stat us Clear Not Available [facility] [address], [place], [address], 06/17/2023 12:42:43 06/17/19 24 06/17/2023 urina lysis , dipst ick Glucose-Stat us Negati ve Not Available [facility] [address], [place], [address], 06/17/2023 12:42:43 06/17/19 24 06/17/2023 urina lysis , dipst ick Bilirubin-St atus Negati ve Not Available [facility] [address], [place], [address], 06/17/2023 12:42:43 06/17/19 24 06/17/2023 urina lysis , dipst ick Ketones-Stat us Negati ve Not Available [facility] [address], [place], [address], 06/17/2023 12:42:43 06/17/19 24 06/17/2023 urina lysis , dipst ick Sp [place]-Stat us 1.020 Not Available [facility] [address], [place], [address], 06/17/2023 12:42:43 06/17/19 24 06/17/2023 urina lysis , dipst ick pH-Status 5.5 Not Available [facility] [address], [place], [address], 06/17/2023 12:42:43 06/17/19 24 06/17/2023 urina lysis , dipst ick Urobilinogen -Status 0.2 Not Available [facility] [address], [place], [address], 06/17/2023 12:42:43 06/17/19 24 06/17/2023 urina lysis , dipst ick Nitrates-Sta tus negati ve Not Available [facility] [address], [place], [address], 06/17/2023 12:42:43 06/17/19 24 06/17/2023 urina lysis , dipst ick Blood-Status Negati ve Not Available [facility] [address], [place], [address], 06/17/2023 12:42:43 06/17/19 24 06/17/2023 urina lysis , dipst ick Leuko-Status Trace Not Available [facility] [address], [place], [address], 06/17/2023 12:42:43 06/17/19 24 06/17/2023 urina lysis , dipst ick Specimen Type Voided Not Available [facility] [address], [place], [address], 06/17/2023 12:42:43 06/17/19 24 06/17/2023 urina lysis , dipst ick Performed by Nelli Al RN Not Available [facility] [address], [place], [address], 06/17/2023 12:42:43 Result Notes None recorded. Procedures Surgical History Date Name Laterality Status Provider Name and Address Organization Details Recorded Time 06/17/19 24 CystoscopyFemale completed David Rowland PA-C [address] [place] [address],[address], [place], [address], [facility] 06/17/2023 13:01:47 06/17/19 24 Bladder Scan completed Nelli Al [facility] 06/17/2023 12:47:55 Imaging Results None recorded. Procedure Notes None recorded. Medical Equipment None Reported. Allergies Allergen ID Allergen Name Allergen Category Reaction Reaction Severity Criticality Documentation Date Start Date Code Code System Note Provider Name and Address Organization Details Recorded Time 286945 auranofin medicatio n Not available Not available Not available 06/17/2023 1227 RxNorm Not Available Not Available Not Available 979903 cat dander environme nt Not available Not available Not available 06/17/2023 80719 UNK Not Available Not Available Not Available 129904 Product containin g gadoliniu m and/or gadoliniu m compound (product) medicatio n Not available Not available Not available 06/17/2023 02180 3008 SNOMED Not Available Not Available Not Available 101353 wheat gluten extract food Not available Not available Not available 06/17/2023 99210 81 RxNorm Not Available Not Available Not Available 909645 gold keratinat e Not available Not available Not available Not available 06/17/2023 57689 RxNorm Not Available Not Available Not Available 750623 Substance with morphinan structure and opioid receptor agonist mechanism of action (substanc e) medicatio n Not available Not available Not available 06/17/2023 27769 9000 SNOMED Not Available Not Available Not [...] Updated DateTime 06/17/2023 172.72 cm 20.4 kg/m2 68398.38 g Nelli Al [place] [facility] [place] [facility] 06/17/2023 12:26:06 Social History None recorded. Functional Status None recorded. Mental Status None recorded. Family History Nothing Reported. Medical History No medical history recorded. Gynecological HistoryNo gynecological history recorded. Obstetrics History GPAL:G 0 P 0 0 0 0 Past Encounters Encounter ID Performer Location Encounter Start Date Encounter Closed Date Diagnosis/Indication Diagnosis SNOMED-CT Code Diagnosis ICD10 Code Diagnosis Note [id number] Nancy Troncoso MD [facility] [address] [place] [address] 06/17/2023 11:59:35 06/18/2023 10:35:23 Urgent desire to urinate 85473941 R39.15 I went over treatment options for OAB including diet modificati on, biofeedbac k, medication s. We woudl start with diet modificati on and PT for incontinen ce. She has concerns about side effects of the medication s Recurrent urinary tract infection 271009368 N39.0 Last UTI was in the fall 2022; treat as they happen I stressed importance of obtaining UC at the time of UTI symptoms only to guide the correct Abx choice. Vaginal dryness 11914669 N89.8 continue clobetasol and estrogen vaginashe is following [place] lichen [place] Health Concerns Section Related Observation LastModified by Organization Detai ls LastModified Time None Recorded Concern Status LastModified by Organization Details LastModified Time None Recorded Advance Directives Directive None Recorded Payers Encounter Date Sequence Insurance Name Policy Number Policy Duval Covered Member ID Duval Member ID Guarantor Name 06/17/2023 2 [place] [id number] Juliette Brown [id number] Juliette Brown 06/17/2023 1 [place] [employer] [facility] Juliette Brown [id number] Juliette Brown Notes Date Note Type Note [...] sclerosis, no POPCysto: Normal Nancy Troncoso MD [address] [facility],[address], [place], [address], [facility] 06/17/2023 13:59:27 OBGyn Episode No OBEpisode recorded.
--- OUTSIDE RECORDS SUMMARY | 2024-07-20 21:25 | XMS_ITS ---
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, SNOMED CT) Severe 07/28/2019 active GOLD Keratinate Anaphylaxis (code- 78860856, SNOMED CT) Severe 07/28/2019 active Gadolinium Unknown 07/20/2019 active Cat dander Unknown 07/28/2019 active 1227 RXNORM Auranofin Unknown 07/20/2019 active Care Team Name Role Address Phone Organization Dates Alpa Keith Attending Physician [address] [place], [address], [place] (Office): : (Pager): [facility] 04/01/2022 - 04/15/2022 Immunizations Immunization Status Vaccine Details Vaccine Code CodeSystem Date Notes Influenza completed Influenza, high-dose, split virus, quadrivalent, injectable, preservative free 197 CVX created date: 2 administe red date: 2 TB 2 Step Mantoux Skin Test completed tuberculin skin test; unspecified formulation lotNumber: [id number] expiry: 10/10/2024 Mfg: [employer] San[employer]i Given 0.1 ml Right Forearm intradermally Step 1 of Multi-step with next step required 98 CVX created date: 2 consent date: 2 administe red date: 2 Educated by Nila Bates on 04/01/2022 TB 2 Step Mantoux Skin Test completed tuberculin skin test; unspecified formulation lotNumber: [id number] expiry: 07/09/2020 Mfg: par Given 0.1 ml Right Forearm intradermally Step 1 of Multi-step with next step required 98 CVX created date: 0 consent date: 0 administe red date: 0 Prevnar (PCV13) cancelled pneumococcal conjugate vaccine, 13 valent 133 CVX created date: 0 consent date: 0 Does not wish to receive recommended vaccination. Pneumovax (PPSV23) Dose 1 completed pneumococcal polysaccharide vaccine, 23 valent 33 CVX created date: 0 administe red date: 7 Pneumovax (PPSV23) Dose 2 cancelled pneumococcal polysaccharide vaccine, 23 valent 33 CVX created date: 0 consent date: 0 Does not wish to receive recommended vaccination. Tdap (Tetanus-Dipthe tha-Pertussis) completed diphtheria, tetanus toxoids and acellular pertussis vaccine, unspecified formulation 107 CVX created date: 0 administe red date: 7 SARS-COV-2 (COVID-19) completed SARS-COV-2 (COVID-19) vaccine, mRNA, spike protein, LNP, preservative free, 30 mcg/0.3mL dose, juice-sucrose formulation Given intramuscularly Step 2 of Multi-step with next step required 217 CVX created date: 2 administe red date: 2 SARS-COV-2 (COVID-19) completed SARS-COV-2 (COVID-19) vaccine, mRNA, spike protein, LNP, preservative free, 30 mcg/0.3mL dose Given intramuscularly Step 1 of Multi-step with next step required 208 CVX created date: 2 administe red date: 1 SARS-COV-2 (COVID-19) completed SARS-COV-2 (COVID-19) vaccine, mRNA, spike protein, LNP, preservative free, 30 mcg/0.3mL dose Given intramuscularly Step 2 of Multi-step with next step required 208 CVX created date: 2 administe red date: 1 SARS-COV-2 (COVID-19) completed SARS-COV-2 (COVID-19) vaccine, mRNA, spike protein, LNP, preservative free, 30 mcg/0.3mL dose Given intramuscularly Step 1 of Multi-step with next step required 208 CVX created date: 2 administe red date: 1 Medications Section Medication Name Status Code CodeSystem Dose Route Frequency Admin Type Sig Text Start Date End Date Estrace Tablet 0.5 MG active 406598 RXNORM 1 tablet Oral in the morning Routine Give 1 tablet by mouth in the mornin g for . 2021 - Ketoconazole Cream 2 % active 154639 RXNORM n/a n/a Topical as needed PRN Apply to affect ed area topica lly as needed for . once daily 2021 - Miconazole Nitrate Cream 2 % active 324710 RXNORM n/a n/a Topical two times a day Routine Apply to vulva, rectal area topica lly two times a day for candid al skin infect ion 2021 - Liothyronine Sodium Tablet 5 MCG active 560564 RXNORM 1 tablet Oral two times a day Routine Give 1 tablet by mouth two times a day for hypoth yroidi sm 2021 - Betamethasone Dipropionate Cream 0.05 % active 984953 RXNORM n/a n/a Topical in the afternoon Routine Apply to affect ed area topica lly in the aftern oon for lichen sclero reyna 2021 - Zofran ODT Tablet Disintegratin g 4 MG active 096071 RXNORM 4 mg Oral as needed PRN Give 4 mg by mouth every 8 hours as needed for nausea place on tongue 2021 - Tretinoin Cream 0.025 % active 755103 RXNORM n/a n/a Topical at bedtime Routine Apply to affect ed area topica lly at bedtim e for sun-da supriya skin 2021 - Melatonin Tablet 10 MG active 2992520 RXNORM 10 mg Oral at bedtime Routine Give 10 mg by mouth at bedtim e for insomn ia 2021 - Multivitamin Tablet active 1 tablet Oral in the morning Routine Give 1 tablet by mouth in the mornin g for supple ment 2021 - Hachita-3 Fatty Acids Capsule active 2000 mg Oral in the morning Routine Give 2000 mg by mouth in the mornin g for supple ment 2021 - Sodium Chloride Solution 0.65 % active 903674 RXNORM 1 spray Nasal as needed PRN 1 spray in both nostri ls every 2 hours as needed for hayfev er 2021 - Zoloft Tablet 50 MG active 663084 RXNORM 50 mg Oral in the morning Routine Give 50 mg by mouth in the mornin g for KATY 2021 - Prometrium Capsule 100 MG active 712880 RXNORM 100 mg Oral at bedtime Routine Give 100 mg by mouth at bedtim e for . 2021 - Albuterol Sulfate HFA Aerosol Solution 108 (90 Base) MCG/ACT active 8138363 RXNORM 2 puff Inhalat ion as needed PRN 2 puff inhale orally every 4 hours as needed for COPD 2021 - Tylenol Extra Strength Tablet 500 MG active 20930917 RXNORM 1000 mg Oral three times a day Routine Give 1000 mg by mouth three times a day for pain AND Give 500 mg by mouth as needed for pain bid prn 2021 - 20930917 RXNORM 500 mg Oral as needed PRN Give 1000 mg by mouth three times a day for pain AND Give 500 mg by mouth as needed for pain bid prn 2021 - Probiotic Daily Capsule active 2 capsul e Oral one time a day Routine Give 2 capsul e by mouth one time a day for supple ment 2021 - MiraLax Packet 17 GM active 902997 RXNORM 17 gram Oral in the evening Routine Give 17 gram by mouth in the evenin g for consti pation AND Give 17 gram by mouth as needed for consti pation qd prn 2021 - 383869 RXNORM 17 gram Oral as needed PRN Give 17 gram by mouth in the evenin g for consti pation AND Give 17 gram by mouth as needed for consti pation qd prn 2021 - busPIRone HCl Tablet 10 MG active 460844 RXNORM 10 mg Oral two times a day Routine Give 10 mg by mouth two times a day for depres lillie 2021 - Dilaudid Tablet 2 MG active 509713 RXNORM 1 mg Oral as needed PRN Give 1 mg by mouth as needed for pain tid prn 2021 - traZODone HCl Tablet 50 MG active 709526 RXNORM 1 tablet Oral as needed PRN Give 1 tablet by mouth as needed for insomn ia until 2021 23:59 can have if 1st dose not effect mathieu AND Give 1 tablet by mouth at bedtim e for insomn ia 04/24 706303 RXNORM 1 tablet Oral at bedtime Routine Give 1 tablet by mouth as needed for insomn ia until 2021 23:59 can have if 1st dose not effect mathieu AND Give 1 tablet by mouth at bedtim e for insomn ia 2021 - Senna Plus Tablet 8.6-50 MG active 111245 RXNORM 2 tablet Oral one time a day Routine Give 2 tablet by mouth one time a day for consti pation take until resolv ed 2021 - Mental Status Section Date Assessment Total Score Description 04/15/2022 BIMS 15 cognitively int act CAM 0 No delirium ind icated PHQ-9 03 minimal depress ion 04/05/2022 BIMS 15 cognitively int act CAM 0 No delirium ind icated PHQ-9 09 mild depression Problems Problem # Description Date of onset Resolved Date Code CodeSystem Concern Status 1 INSOMNIA, UNSPECIFIED 134974233 SNOMED CT active 2 CHRONIC FATIGUE, UNSPECIFIED 74954674 SNOMED CT active 3 DIFFICULTY IN WALKING, NOT ELSEWHERE CLASSIFIED 854007986 SNOMED CT active [address] active 5 MUSCLE WEAKNESS (GENERALIZED) 96820497 SNOMED CT active 6 ACUTE CANDIDIASIS OF VULVA AND VAGINA 440539873 SNOMED CT active 7 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 OR ABSCESS WITHOUT BLEEDING 45369286 SNOMED CT active [address] active 9 ENCOUNTER FOR SURGICAL AFTERCARE FOLLOWING SURGERY ON THE DIGESTIVE SYSTEM 311331188 SNOMED CT active 10 HYPOTHYROIDISM, UNSPECIFIED 02600050 SNOMED CT active 11 MAJOR DEPRESSIVE DISORDER, RECURRENT, MODERATE 83304411 SNOMED CT active 12 MIGRAINE, UNSPECIFIED, NOT INTRACTABLE, WITHOUT STATUS MIGRAINOSUS 94521236 SNOMED CT active 13 OTHER ABNORMAL GLUCOSE 559207985 SNOMED CT active 14 OTHER INTERVERTEBRAL DISC DEGENERATION, LUMBOSACRAL REGION 65756901 SNOMED CT active 15 OTHER NONSPECIFIC ABNORMAL FINDING OF LUNG FIELD 014920660 SNOMED CT active 16 PERSONAL HISTORY OF (HEALED) TRAUMATIC FRACTURE 190118806 SNOMED CT active 17 SENSORINEURAL HEARING LOSS, BILATERAL 000568400 SNOMED CT active 18 UNSPECIFIED OSTEOARTHRITIS, UNSPECIFIED SITE 493360556 SNOMED CT active 19 UNSPECIFIED TEMPOROMANDIBULAR JOINT DISORDER, UNSPECIFIED SIDE 80874083 SNOMED CT active 20 URGENCY OF URINATION 99260713 SNOMED CT active 21 URINARY TRACT INFECTION, SITE NOT SPECIFIED 72113212 SNOMED CT active 22 ANEMIA, UNSPECIFIED 04/01/[address] completed 23 ANXIETY DISORDER, UNSPECIFIED 086686344 SNOMED CT active 24 CHRONIC FATIGUE, UNSPECIFIED 04/01/[address] completed 25 DIFFICULTY IN WALKING, NOT ELSEWHERE CLASSIFIED 04/01/[address] completed 26 ENTEROCOLITIS DUE TO CLOSTRIDIUM DIFFICILE, NOT SPECIFIED RECURRENT 04/01/[address] completed 27 FIBROMYALGIA 04/01/[address] completed 28 HYPERLIPIDEMIA, UNSPECIFIED 04/01/[address] completed 29 MAJOR DEPRESSIVE DISORDER, RECURRENT, UNSPECIFIED 04/01/[address] completed 30 MUSCLE WEAKNESS (GENERALIZED) 04/01/[address] completed 31 OTHER SPECIFIED DISORDERS OF BONE DENSITY AND STRUCTURE, UNSPECIFIED SITE 04/01/[address] completed 32 RESISTANCE TO MULTIPLE ANTIBIOTICS 04/01/[address] completed 33 SARCOIDOSIS OF LUNG 04/01/[address] completed 34 UNSPECIFIED FRACTURE OF LOWER END OF RIGHT FEMUR, SUBSEQUENT ENCOUNTER FOR CLOSED FRACTURE WITH NONUNION 04/01/[address] completed Reason for Referral No Reasons for Referral Entered Social History Social History Observation Description Start Date End Date Code Code System Current Smoking Status Tobacco smoking consumption unknown 812564466 SNOMED CT Sex Assigned At Female 1960 55955-8 [facility] Vital Signs Code Code System Vitals Name Values and Units Timing Information 8462-4 [facility] Blood Pressure-Diastolic Value=71 Un its=mmHg 04/15/2022 8480-6 [facility] Blood Pressure-Systolic Lkycy=794 Un its=mmHg 04/15/2022 8310-5 [facility] Body Temperature Value=97.2 Units= F 04/15/2022 8867-4 [facility] Heart rate Value=99.0 Units=/min 09/2021 79848-8 [facility] O2 % BldC Oximetry Value=98.0 Units= % 04/15/2022 9279-1 [facility] Respiratory Rate Value=16.0 Units=/m in 04/14/2022 48536-5 [facility] Pain Level Value=0.0 04/14/2022 08507-4 [facility] Weight Wvwry=589.3 Units=Lbs 08/2021 8302-2 [facility] Height Value=68.0 Units=Inches 07/21/2019
--- OUTSIDE RECORDS SUMMARY | 2024-07-20 21:26 | XMS_ITS | Encounter Summary ---
Author Organization [facility] Address [address] [place] [address] Care Team Providers Care Bluing Oven Tender Name Role Phone Kelsi Handy MD Unavailable [phone] Nivia Bruno MD Primary Care Provider [phone] Encounter Details Date Type Department Care Team ([facility] Contact Info) Description 09/25/2021 Telephone [facility] Intake [address] [place] [phone] Generic, Behavioral Intake, Social History Tobacco Use Types Packs/Day Years Used Date Smoking Tobacco: Never Smokeless Tobacco: Never Alcohol Use Standard Drinks/Week Comments No 0 (1 standard drink = 0.6 oz pur e alcohol) PHQ-2 Answer Date Recorded PHQ-2 Score 2 06/13/2021 Comments No Sex and Gender Information Value Date Recorded Sex Assigned at Not on file 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 Location of programming: 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
--- OUTSIDE RECORDS SUMMARY | 2024-07-20 21:26 | XMS_ITS | Clinical Summary ---
Author Organization [facility] Address [address] [place] [address] , [address] [place] [address] Phone Care Team Providers Care Sap Bi Architect Name Role Phone [facility] Unavailable Unava ilable Conditions or Problems Problem Name Problem Code Onset Date Status Entry Date Provider Comment Standard Description Annotate Myalgia of auxiliary muscles, head and neck 86538354 (SNOMED CT) 06/27 Active 06/27 Jina Johnson DNP,REPORTING COORDINATOR,CN P Muscle pain Hemifacial spasm R 72537421 (SNOMED CT) 08/10 Active 08/10 Norberto Miller Jr, MD Hemifacial spasm Facial pain, atypical 75203174 (SNOMED CT) 08/10 Active 08/10 Norberto Miller Jr, MD Atypical facial pain 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), right 96693865 (SNOMED CT) 08/10 Active 08/10 Norberto Miller Jr, MD Arthritis of temporomandibul ar joint Cervical spasm 51346659 (SNOMED CT) 08/10 Active 08/10 Norberto Miller Jr, MD Muscle spasm of head and/or neck Juvenile rheumatoid arthritis 178491814 (SNOMED CT) 08/10 Active 08/10 Norberto Miller [...] limb movement disorder (moderate; 15/hr; most w/arousals) 132996623 (SNOMED CT) 11/01 Inactive 11/03 Norberto Miller Jr, MD Periodic limb movement disorder 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 (ICD-10-CM ) 09/20 Active 09/20 Norberto Miller Jr, MD Sleep disorder, unspecified Fatigue 29424163 (SNOMED CT) 09/20 Active 09/20 Norberto Miller Jr, MD Fatigue Paresthesia of bilateral legs 78108048 (SNOMED CT) 11/10 Active 11/10 Regan Santiago MD Paresthesia Anxiety, generalized F41.1 (ICD-10-CM ) 01/17 Active 01/17 Jesika Diallo PhD Generalized anxiety disorder Restless leg syndrome (PLMS 15/hr) G25.81 (ICD-10-CM ) 09/04 Active 09/04 Norberto Miller Jr, MD Restless legs syndrome Sleep disturbance , nos 30490962 (SNOMED CT) 09/04 Inactive 09/04 Norberto Miller Jr, MD Dyssomnia 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 (ICD-10-CM ) 09/04 Active 09/04 Norberto Miller Jr, MD Insomnia, unspecified Snoring 01092511 (SNOMED CT) 09/04 Active 09/04 Norberto Miller Jr, MD Snoring Restless leg syndrome 45693440 (SNOMED CT) 09/04 Inactive 09/04 Norberto Miller Jr, MD Restless legs 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 (ICD-10-CM ) 09/04 Active 09/04 Norberto Miller Jr, MD Abnormal level of blood mineral traumatic brain injury, initial encounter S06.309A (ICD-10-CM ) 08/02 Active 08/07 Zuleyma Ly 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, initial encounter Hypothyroid ism 02091349 (SNOMED CT) 08/02 Active 08/07 Zuleyma Ly Hypothyroidism depression 14289208 (SNOMED CT) 08/02 Active 08/07 Zuleyma Ly Depressive disorder Memory problems R41.3 (ICD-10-CM ) 08/02 Active 08/07 Zuleyma Ly Other amnesia Medications Medication Instructions Start Date Stop Date Generic Name NDC Provider ESCITALOPRAM OXALATE 20 MG TABS 12/10 escitalopram oxalate 40211314347 Norberto Miller Jr, MD LORAZEPAM 0.5 MG TABS 12/10 lorazepam 13528054529 Norberto Miller Jr, MD TRETINOIN 0.025 % CREA 12/10 tretinoin 81689846816 Norberto Miller Jr, MD MELATONIN 10 MG TABS 1 by mouth every night 12/10 melatonin-lemon balm leaf extr 14874469354 Norberto Miller Jr, MD TRIAMCINOLONE ACETONIDE 0.1 % CREA 12/10 triamcinolone acetonide 84760267012 Norberto Miller Jr, MD SUMATRIPTAN SUCCINATE 25 MG TABS 12/10 sumatriptan succinate 34828399140 Norberto Miller Jr, MD BUSPIRONE HCL 15 MG TABS 12/10 buspirone 59258541809 Norberto Miller Jr, MD DIPHENOXYLATE-ATRO PINE 2.5-0.025 MG TABS 12/10 diphenoxylate-atr opine 50622078406 Norberto Miller Jr, MD TYRVAYA 0.03 MG/ACT SOLN 12/10 varenicline 79851676319 Norberto Miller Jr, MD ESCITALOPRAM OXALATE 10 MG TABS 12/10 escitalopram oxalate 13495854611 Norberto Miller Jr, MD LIDOCAINE VISCOUS HCL 2 % SOLN 12/10 lidocaine hcl 71149332932 Norberto Miller Jr, MD LIOTHYRONINE SODIUM 5 MCG TABS 12/10 liothyronine 57782661545 Norberto Miller Jr, MD HYDROMORPHONE HCL 2 MG TABS 12/10 hydromorphone 73122959066 Norberto Miller Jr, MD ROPINIROLE HCL 0.25 MG TABS 12/10 ropinirole 65517956642 Norberto Miller Jr, MD POLYMYXIN B-TRIMETHOPRIM 38452-4.1 UNIT/ML-% SOLN 12/10 polymyxin b sulf-trimethoprim 97673991256 Norberto Miller Jr, MD YUVAFEM 10 MCG TABS 12/10 estradiol 87457371333 Norberto Miller Jr, MD SULFAMETHOXAZOLE-T RIMETHOPRIM 800-160 MG TABS 12/10 sulfamethoxazole- trimethoprim 41136723289 Norberto Miller Jr, MD VALACYCLOVIR HCL 1 GM TABS 12/10 valacyclovir 77331267834 Norberto Miller Jr, MD LIDOCAINE 5 % PTCH lidocaine 21513479725 Norberto Miller Jr, MD TRIAMCINOLONE ACETONIDE 0.1 % PSTE triamcinolone acetonide 64543262727 Norberto Miller Jr, MD PROGESTERONE 100 MG CAPS TAKE ONE CAPSULE BY MOUTH AT BEDTIME* progesterone micronized 33466843980 Norberto Miller Jr, MD ESTRADIOL 1 MG TABS estradiol 39798898269 Norberto Miller Jr, MD DIPHENOXYLATE-ATRO PINE 2.5-0.025 MG TABS diphenoxylate-at r opine 87897982371 Norberto Miller Jr, MD LIOTHYRONINE SODIUM 5 MCG TABS liothyronine 58897874395 Norberto Miller Jr, MD MELOXICAM 15 MG TABS meloxicam 10928787303 Norberto Miller Jr, MD ONDANSETRON HCL 4 MG TABS ondansetron hcl 71111863998 Norberto Miller Jr, MD AMOXICILLIN 500 MG CAPS amoxicillin 66759917642 Norberto Miller Jr, MD HYDROMORPHONE HCL 2 MG TABS hydromorphone 22565804419 Norberto Miller Jr, MD YUVAFEM 10 MCG TABS estradiol 19919563053 Norberto Miller Jr, MD VILAZODONE HCL 20 MG TABS vilazodone 26770629664 Norberto Miller Jr, MD VILAZODONE HCL 10 MG TABS vilazodone 51786966630 Norberto Miller Jr, MD ESCITALOPRAM OXALATE 20 MG TABS escitalopram oxalate 80181804258 Norberto Miller Jr, MD BUSPIRONE HCL 15 MG TABS buspirone 49548562386 Norberto Miller Jr, MD TRAZODONE HCL 50 MG TABS trazodone 42739120455 Norberto Miller Jr, MD PREDNISONE 20 MG TABS prednisone 53220813490 Norberto Miller Jr, MD PROPRANOLOL HCL 20 MG TABS 08/10 propranolol 48587546532 Norberto Miller Jr, MD HYDROMORPHONE HCL 2 MG TABS 12/10 hydromorphone 30474434475 Norberto Miller Jr, MD ROPINIROLE HCL 0.25 MG TABS 12/10 ropinirole 54397557374 Norberto Miller Jr, MD ESCITALOPRAM OXALATE 20 MG TABS 12/10 escitalopram oxalate 18214383232 Norberto Miller Jr, MD TYRVAYA 0.03 MG/ACT SOLN 12/10 varenicline 36614682819 Norberto Miller Jr, MD YUVAFEM 10 MCG TABS 12/10 estradiol 70756030400 Norberto Miller Jr, MD CYCLOBENZAPRINE HCL 5 MG TABS Take 1/2-1 tablet by mouth every night at bedtime as directed start with 1/2 tab cyclobenzaprine 61568191924 Norberto Miller Jr, MD ESCITALOPRAM OXALATE 10 MG TABS 12/23 escitalopram oxalate 22641309171 Norberto iMller Jr, MD DULOXETINE HCL 30 MG CPEP 1 every morning 12/23 duloxetine 74395899189 Norberto Miller Jr, MD BUSPIRONE HCL 5 MG TABS 1 twice a day 12/23 buspirone 21508055366 Norberto Miller Jr, MD MELATONIN 10 MG TABS 1 by mouth every night 12/10 melatonin-lemon balm leaf extr 94366417243 Norberto Miller Jr, MD TRAZODONE HCL 50 MG TABS Prescribed by Family 12/23 TRAZODONE HCL Norberto Miller Jr, MD BUSPIRONE HCL 15 MG TABS 12/10 buspirone 54479830923 Norberto Miller Jr, MD ESCITALOPRAM OXALATE 10 MG TABS 12/10 escitalopram oxalate 86217267586 Norberto Miller Jr, MD LORAZEPAM 0.5 MG TABS 12/10 lorazepam 64604209181 Norberto Miller Jr, MD TRIAMCINOLONE ACETONIDE 0.1 % CREA 12/10 triamcinolone acetonide 46549425901 Norberto Miller Jr, MD SULFAMETHOXAZOLE-T RIMETHOPRIM 800-160 MG TABS 12/10 sulfamethoxazole- trimethoprim 74115772314 Norberto Miller Jr, MD PROPRANOLOL HCL 20 MG TABS 08/10 propranolol 35427885212 Norberto Miller Jr, MD LIOTHYRONINE SODIUM 5 MCG TABS 12/10 liothyronine 50667771770 Norberto Miller Jr, MD POLYMYXIN B-TRIMETHOPRIM 96810-5.1 UNIT/ML-% SOLN 12/10 polymyxin b sulf-trimethoprim 84442369266 Norberto Miller Jr, MD DIPHENOXYLATE-ATRO PINE 2.5-0.025 MG TABS 12/10 diphenoxylate-atr opine 32322199477 Norberto Miller Jr, MD LIDOCAINE VISCOUS HCL 2 % SOLN 12/10 lidocaine hcl 25701373537 Norberto Miller Jr, MD TRETINOIN 0.025 % CREA 12/10 tretinoin 72863887880 Norberto Miller Jr, MD SUMATRIPTAN SUCCINATE 25 MG TABS 12/10 sumatriptan succinate 59674393653 Norberto Miller Jr, MD VALACYCLOVIR HCL 1 GM TABS 12/10 valacyclovir 79623355074 Norberto Miller Jr, MD ESCITALOPRAM OXALATE 10 MG TABS 12/23 escitalopram oxalate 30384700813 Belle Jimenez PA-C MELATONIN 10 MG TABS 1 orally QHS 12/23 MELATONIN 48621554070 Norberto Miller Jr, MD CLOBETASOL PROPIONATE 0.05 % CREA Prescribed by Family SALAZAR 09/20 CLOBETASOL PROPIONATE 95614118296 Norberto Miller Jr, MD BETAMETHASONE VALERATE 0.1 % LOTN Prescribed by Family SALAZAR 09/20 BETAMETHASONE VALERATE 47029232871 Norberto Miller Jr, MD CEFUROXIME AXETIL 500 MG TABS Prescribed by Family SALAZAR 09/20 CEFUROXIME AXETIL 71275421587 Norberto Miller Jr, MD ARMOUR THYROID 30 MG TABS Prescribed by Family SALAZAR 09/20 THYROID 69603793467 Norberto Miller Jr, MD SERTRALINE HCL 100 MG TABS Prescribed by Family SALAZAR 09/20 SERTRALINE HCL 51344344562 Norberto Miller Jr, MD WELLBUTRIN XL 150 MG [id number] Prescribed by Family SALAZAR 09/20 BUPROPION HCL 50500587291 Norberto Miller Jr, MD DULOXETINE HCL 30 MG CPEP 1 QAM 12/23 DULOXETINE HCL 03218065912 Norberto Miller Jr, MD BUSPIRONE HCL 5 MG TABS 1 BID 12/23 BUSPIRONE HCL 14458305139 Norberto Miller Jr, MD GABAPENTIN 300 MG CAPS Prescribed by Family SALAZAR GABAPENTIN 33917076646 Norberto Miller Jr, MD CEFUROXIME AXETIL 500 MG TABS Prescribed by Family SALAZAR 08/24 CEFUROXIME AXETIL 38224302244 Zuleyma Cameron ARMOUR THYROID 30 MG TABS Prescribed by Family SALAZAR 09/20 THYROID 49690144452 Zuleyma Cameron GABAPENTIN 300 MG CAPS Prescribed by Family SALAZAR 08/24 GABAPENTIN 74015642644 Zuleyma Cameron SERTRALINE HCL 100 MG TABS Prescribed by Family SALAZAR 09/20 SERTRALINE HCL 40668719914 Zuleyma Cameron WELLBUTRIN XL 150 MG [id number] Prescribed by Family SALAZAR 09/20 BUPROPION HCL 79024403968 Zuleyma Cameron TRAZODONE HCL 50 MG TABS Prescribed by Family SALAZAR 12/23 TRAZODONE HCL 77145278878 Zuleyma Cameron BETAMETHASONE VALERATE 0.1 % LOTN Prescribed by Family SALAZAR 08/24 BETAMETHASONE VALERATE 44909119810 Zuleyma Ly CLOBETASOL PROPIONATE 0.05 % CREA Prescribed by Family SALAZAR 08/24 CLOBETASOL PROPIONATE 42893239289 Zuleyma Cameron Medications Administered No information available. [...] Procedures Code Procedure Name Date Entry Date 97529/20522/64049&53 Occipital Nerve Blo ck and Trigger Point Injections CPT-12998 Trigger point inj (3+ musc) CPT-J1100 Dexamethasone -- 10 mg 04/26 ORDERS Follow up [facility] telemedicine 2 ORDERS Dental Device Referral 12/10 ORDERS Sleep Hygiene Tips Handout 2 ORDERS Insomnia Handout ORDERS Patient Instructions ORDERS Patient Instructions ORDERS Patient Instructions SCT-[id number] Other Referral ORDERS Instructions for Staff 09/02 ORDERS Follow up Sleep [facility] telemedicine ORDERS Patient Instructions CPT-42558 Trigger point inj (3+ musc) CPT-J1100 Dexamethasone -- 10 mg 08/10 [id number] Other Radiology 27495/45595/86230&53 Occipital Nerve Blo ck and Trigger Point Injections ORDERS Follow up Extended telemedicine 1 ORDERS Patient Instructions SCT-[id number] Other Referral [facility] [email or web address] Psychiatry Referral ORDERS Pain Clinic ORDERS Insomnia Handout ORDERS Sleep Hygiene Tips Handout 2 ORDERS Patient Instructions CPT-80600 PSG, 4+ parameters w / tech - 6yrs or older (27666) ORDERS Vitamin B12 ORDERS Vitamin D 25 Hydroxy ORDERS Patient Instructions SCT-[id number] Other Referral SCT-[id number] Psychology Referral ORDERS Instructions for Staff 11/28 ORDERS Lyme Total Ab w/Refl ex (reflex to Western Blot) ORDERS TSH ORDERS 2 weeks Actigraphy W atch w/ Sleep Journals (Call Sleep Lab) ORDERS Ferritin Serum ORDERS Overnight PSG - Sleep Study Overnight 07/17/19 ORDERS Telemedicine Follow up 11/08 ORDERS Ferritin Serum [facility] [email or web address] Documentation of current medicatio ns ORDERS Other Handout ORDERS Patient Instructions ORDERS Patient Instructions ORDERS Instructions for Staff 11/08 ORDERS Telemedicine Follow up 09/20 CPT-66612 PSG, 4+ parameters w / tech - 6yrs or older (92653) ORDERS Sleep Study - [facility] 2 SCT-[id number] Documentation of current medicatio ns ORDERS T4 SCT-244078650 Other Referral ORDERS Lyme Total Ab w/Refl [...] TSH ORDERS Vitamin B12 ORDERS T3 Free CPT-49308 Nerve Conduction 7-8 studies CPT-25278 EMG with NCS (5+ muscles) - 1 limb 11/10 SCT-[id number] Documentation of current medicatio ns ORDERS Ferritin Serum ORDERS Patient Instructions ORDERS Other Test ORDERS Follow up ORDERS Vitamin B12 CPT-25143 Neuropsych assmnt w/ prov 4 hr CPT-1160986 Neuropsych assmnt w/ tech 3 hr ORDERS Follow up ORDERS Patient Instructions SCT-[id number] Documentation of current medicatio ns ORDERS Follow up ORDERS Patient Instructions SCT-[id number] Other Test CPT-08828 PSG, 4+ parameters w / tech - 6yrs or older (63284) CPT-92306 MRI Brain W/O SCT-[id number] Documentation of current medicatio ns SCT-762678899 Other Test SCT-[id number] Documentation of current medicatio ns ORDERS Ferritin Serum SCT-277411227 Other Referral ORDERS Follow up SCT-669722294 Other Test SCT-354191499 Other Referral SCT-[id number] Documentation of current medicatio ns Vital Signs [...]
--- OUTSIDE RECORDS SUMMARY | 2024-07-20 21:26 | XMS_ITS | Encounter Summary ---
Author Organization [facility] Address [address] [address] Care Team Providers Care Vocational Nurse Name Role Phone Needs Pcp, Assignment Primary Care Provider [phone] Encounter Details Date Type Department Care Team (Late st Contact Info) Description 07/16/2019 Lab Requisition [facility] [address] [facility]. [place], [place] [address] Lul Hunter MD [address] [place], [place] [phone] Encounter for surgical aftercare following surgery on [...] organs documented in this encounter Care Teams Vocational Nurse Relationship Specialty Start Date End Date Needs Pcp, [place], [place] [address] PCP - General 02/28/21 documented as of this encounter
--- OUTSIDE RECORDS SUMMARY | 2024-07-20 21:26 | XMS_ITS ---
Author Organization [facility] Care Team Providers Care Machine Inspector Name Role Phone ^\\, ^\\ Unavailable Unavailable Orquidea Aleman Unavailable Unavailable Tobias Martin Unavailable Unavailable Lul Hunter Unavailable Unavailable Allergies and adverse reactions Code CodeSystem Substance Reaction Severity StartDate Concern Status Gadolinium Unknown 07/10/2019 active CAT HAIR EXTRACT Unknown 07/10/2019 acti ve 1227 RXNORM Auranofin Unknown 07/10/2019 active Care Team Name Role Address Phone Organization Dates Lul Hunter PCP [facility] [facility] [address], [place], [address], [place] (Office[facility] 07/10/2019 - 07/16/2019 ^\\ ^\\ Attending Physician [facility] 07/10/2019 - 07/16/2019 Orquidea Aleman Attending Physician [facility] [place], [address], [place] (Office): : (Pager): [facility] 07/10/2019 - 07/16/2019 Tobias Martin Attending Physician [address], [place], [address], [place] (Office): : [facility] 07/10/2019 - 07/16/2019 Immunizations Immunization Status Vaccine Details Vaccine Code CodeSystem Date Notes Pneumovax Dose 1 completed pneumococcal polysaccharide vaccine, 23 valent 33 CVX created date: 07/13/2019 administere d date: 03/25/2007 TB 2 Step Mantoux Skin Test completed tuberculin skin test; unspecified formulation lotNumber: [id number] expiry: 08/01/2021 Mfg: Turbogen Given 0.1 ml Right Forearm intradermally Step 1 of Multi-step with next step required 98 CVX created date: 07/12/2019 consent date: 07/11/2019 administere d date: 07/11/2019 Pneumovax Dose 2 completed pneumococcal polysaccharide vaccine, 23 valent 33 CVX created date: 07/13/2019 administere d date: 07/11/2009 TDap completed diphtheria, teta nus toxoids and acellular pertussis vaccine 20 CVX created date: 07/13/2019 administere d date: 09/30/2005 Mental Status Section Date Assessment Total Score Description 07/15/2019 CAM 0 No delirium ind icated 07/14/2019 BIMS 15 cognitively int act CAM 0 No delirium ind icated PHQ-9 11 moderate depres lillie Problems Problem # Description Date of onset Resolved Date Code CodeSystem Concern Status 1 ANXIETY DISORDER, UNSPECIFIED 310180989 SNOMED CT active 2 DECREASED WHITE BLOOD CELL COUNT, UNSPECIFIED [address] active 3 DIVERTICULITIS OF LARGE INTESTINE WITHOUT PERFORATION OR ABSCESS WITHOUT BLEEDING [address] active 4 FIBROMYALGIA [address] active 5 HYPERLIPIDEMIA, UNSPECIFIED [address] active 6 HYPOTHYROIDISM, UNSPECIFIED [address] active 7 JUVENILE RHEUMATOID POLYARTHRITIS (SERONEGATIVE) [address] active 8 LEUKOPLAKIA OF VULVA [address] active 9 MAJOR DEPRESSIVE DISORDER, RECURRENT, UNSPECIFIED [address] active 10 MIGRAINE WITHOUT AURA, NOT INTRACTABLE, WITHOUT STATUS MIGRAINOSUS [address] active 11 OTHER INTERVERTEBRAL DISC DEGENERATION, LUMBOSACRAL REGION 63766576 SNOMED CT active 12 OTHER PSYCHOACTIVE SUBSTANCE DEPENDENCE, IN REMISSION 5075194418 SNOMED CT active 13 OTHER SPECIFIED DISORDERS OF BONE DENSITY AND STRUCTURE, UNSPECIFIED SITE 01724214 SNOMED CT active 14 PERIPROSTHETIC FRACTURE AROUND INTERNAL PROSTHETIC RIGHT HIP JOINT, SUBSEQUENT ENCOUNTER 19044604549511974 SNOMED CT active 15 PLANTAR FASCIAL FIBROMATOSIS 47092050 SNOMED CT active 16 SARCOIDOSIS OF LUNG 58066307 SNOMED CT active 17 SENSORINEURAL HEARING LOSS, BILATERAL 548792259 SNOMED CT active 18 UNSPECIFIED FRACTURE OF LOWER END OF RIGHT FEMUR, SUBSEQUENT ENCOUNTER FOR CLOSED FRACTURE WITH NONUNION 181431084 SNOMED CT active 19 UNSPECIFIED TEMPOROMANDIBULAR JOINT DISORDER, UNSPECIFIED SIDE 61307522 SNOMED CT active 20 VITAMIN D DEFICIENCY, UNSPECIFIED 41872296 SNOMED CT active Reason for Referral No Reasons for Referral Entered Social History Social History Observation Description Start Date End Date Code Code System Current Smoking Status Tobacco smoking consumption unknown 204841767 SNOMED CT Sex Assigned At Female 1960 18218-[facility] Vital Signs Code Code System Vitals Name Values and Units Timing Information 89820-5 LOINC Pain Level Value=4.0 07/15/2019 9279-1 LOINC Respiratory Rate Value=16.0 Units=/m in 07/15/2019 8462-4 LOINC Blood Pressure-Diastolic Value=68 Un its=mmHg 07/15/2019 8480-6 LOINC Blood Pressure-Systolic Value=98 Uni ts=mmHg 07/15/2019 8310-5 LOINC Body Temperature Value=96.9 Units= F 07/15/2019 8867-4 LOINC Heart rate Value=91.0 Units=/min 09/2019 05908-9 LOINC O2 % BldC Oximetry Value=98.0 Units= % 07/15/2019 26237-9 LOINC Weight Prosj=599.9 Units=Lbs 07/2019 8302-2 LOINC Height Value=68.0 Units=Inches 07/10/2019
--- OUTSIDE RECORDS SUMMARY | 2024-07-20 21:26 | XMS_ITS | Clinical Summary ---
Author Organization [facility] Address [address] [place] [address] Care Team Providers Care Dental Appliance Fixer Name Role Phone Nivia Bruno MD Primary Care Provider [phone] Allergies Active Allergy Reactions Criticality Noted Date [...] Take 1 tablet by mouth 07/22/2014 Active [place]-3 1000 MG CAPS 04/02/2016 Active Saline (SODIUM CHLORIDE) 0.65 % SOLN [place] 1 spray in nostril 01/28/2015 Active traZODone [...] file Legal Sex Female 3:16 AM CERTIFIED ALCOHOL COUNSELOR Gender Identity Not on file Sexual Orientation [...] BASIC METABOLIC PANEL Routine 06/23/2017 6:00 AM CERTIFIED ALCOHOL COUNSELOR TSH Routine 06/23/2017 6:00 AM CERTIFIED ALCOHOL COUNSELOR from Last 3 Months or Most Recently Relevant to Health Maintenance Results * TSH (06/23/2017 6:00 AM CERTIFIED ALCOHOL COUNSELOR) TSH 2.31 0.30 - 5.00 uIU/mL 06/23/2017 10:31 AM CERTIFIED ALCOHOL COUNSELOR [facility] Blood specimen (specimen) STRUCTURE OF LEFT UPPER LIMB / Unknown Venipuncture / Unknown 06/23/2017 6:00 AM CERTIFIED ALCOHOL COUNSELOR 06/23/2017 9:50 AM CERTIFIED ALCOHOL COUNSELOR Rosmery Simpson MD LAB - BLOOD ORDERABLES Fi nal Result [facility] [address] [place] [address], [facility] [address] [place] [address] * Basic metabolic panel (06/23/2017 6:00 AM CERTIFIED ALCOHOL COUNSELOR) Sodium 139 136 - 145 mmol/L 06/23/2017 10:13 AM CERTIFIED ALCOHOL COUNSELOR [facility] Potassium 4.2 3.5 - 5.0 mmol/L 06/23/2017 10:13 AM CERTIFIED ALCOHOL COUNSELOR [facility] Chloride 103 98 - 107 mmol/L 06/23/2017 10:13 AM [facility] Carbon Dioxide (CO2) 29 22 - 31 mmol/L 06/23/2017 10:13 AM [facility] Anion Gap 7 5 - 18 mmol/L 06/23/2017 10:13 AM [facility] Glucose 105 70 - 125 mg/dL 06/23/2017 10:13 AM [facility] Calcium 9.4 8.5 - 10.5 mg/dL 06/23/2017 10:13 AM [facility] Urea Nitrogen 16 8 - 22 mg/dL 06/23/2017 10:13 AM [facility] Creatinine 0.69 0.60 - 1.10 mg/dL 06/23/2017 10:13 AM [facility] GFR Estimate If Black >60 >60 mL/min/1.7 3m2 06/23/2017 10:13 AM [facility] GFR Estimate >60 >60 mL/min/1.7 3m2 06/23/2017 10:13 AM [facility] Blood specimen (specimen) STRUCTURE OF LEFT UPPER LIMB / Unknown Venipuncture / Unknown 06/23/2017 6:00 AM [facility] 06/23/2017 9:50 AM [facility] Narrative [facility] - 06/23/2017 10:13 AM [facility] Fasting Glucose reference range is 70-99 mg/dL per [place] Diabetes Association (ADA) guidelines. Rosmery Simpson MD LAB - BLOOD ORDERABLES Fi nal Result [facility] [address] [place] [address], [facility] [address] [place] [address] from Last 3 Months or Most Recently Relevant to Health [place] [address] [place] [address] [place] [phone] [place] Advance Directives For more information, please contact: [phone] * Full Code (Latest Code Status on File) Date Activated Date Inactivated Comments 04/16/2016 1:58 AM 04/22/2016 3:55 PM Care Teams Dental Appliance Fixer Relationship Specialty Start Date End Date Nivia Bruno MD PCP - General 03/22/21
--- OUTSIDE RECORDS SUMMARY | 2024-07-20 21:26 | XMS_ITS | Encounter Summary ---
Author Organization [facility] Address [address], [place] [address] Care Team Providers Care Information Technology Security Analyst Name Role Phone Needs Pcp, Assignment Primary Care Provider Encounter Details Date Type Department Care Team (Late st Contact Info) Description 07/12/2019 Lab Requisition [facility] [address] [facility]. [place], [place] [id number] Lul Hunter MD [address] [place], [place] [id number] Encounter for surgical aftercare following surgery on [...] BASIC METABOLIC PANEL Routine 07/13/2019 7:00 AM THERAPEUTIC STRATEGY LEAD Encounter for surgical aftercare following surgery on the nervous system COMPLETE BLOOD COUNT-NO DIFF Routine 07/13/2019 7:00 AM THERAPEUTIC STRATEGY LEAD Encounter for surgical aftercare following surgery on the nervous system documented in this encounter Results * (ABNORMAL) Basic Metabolic Panel (07/13/2019 7:00 AM THERAPEUTIC STRATEGY LEAD) Sodium 136 136 - 145 mmol/L 07/13/2019 12:35 PM THERAPEUTIC STRATEGY LEAD [facility] Potassium 4.7 3.5 - 5.1 mmol/L 07/13/2019 12:35 PM THERAPEUTIC STRATEGY LEAD [facility] Chloride 100 98 - 109 mmol/L 07/13/2019 12:35 PM THERAPEUTIC STRATEGY LEAD [facility] CO2 27 20 - 29 mmol/L 07/13/2019 12:35 PM THERAPEUTIC STRATEGY LEAD [facility] Anion Gap 9 7 - 16 mmol/L 07/13/2019 12:35 PM THERAPEUTIC STRATEGY LEAD [facility] Calcium 9.2 8.4 - 10.4 mg/dL 07/13/2019 12:35 PM THERAPEUTIC STRATEGY LEAD [facility] BUN 18 7 - 26 mg/dL 07/13/2019 12:35 PM THERAPEUTIC STRATEGY LEAD [facility] Creatinine 0.76 0.55 - 1.02 mg/dL 07/13/2019 12:35 PM THERAPEUTIC STRATEGY LEAD [facility] GFR, Estimated >60 >60 mL/min/1.7 3m2 07/13/2019 12:35 PM THERAPEUTIC STRATEGY LEAD [facility] GFR, Est If >60 >60 mL/min/1.7 3m2 07/13/2019 12:35 PM THERAPEUTIC STRATEGY LEAD [facility] Glucose 105(H) 70 - 100 mg/dL 07/13/2019 12:35 PM THERAPEUTIC STRATEGY LEAD [facility] Comment:The given reference range is for the fasting state. Non-fasting reference range for glucose is 70 - 180 mg/dL. Hours Fasting Unknown 07/13/2019 12:35 PM THERAPEUTIC STRATEGY LEAD [facility] Blood Venipuncture / Unknown 07/13/2019 7:00 AM THERAPEUTIC STRATEGY LEAD 07/13/2019 10:40 AM THERAPEUTIC STRATEGY LEAD us Lul Hunter MD LAB_1 Final Result [facility] [address] * (ABNORMAL) Complete Blood Count-No Diff (07/13/2019 7:00 AM THERAPEUTIC STRATEGY LEAD) WBC 4.7 3.5 - 10.5 x10(9)/L 07/13/2019 11:17 AM THERAPEUTIC STRATEGY LEAD [facility] RBC 3.19(L) 3.90 - 5.03 x10(12)/L 07/13/2019 11:17 AM THERAPEUTIC STRATEGY LEAD [facility] Hemoglobin 10.1(L) 12.0 - 15.5 g/dL 07/13/2019 11:17 AM THERAPEUTIC STRATEGY LEAD [facility] HCT 31.2(L) 34.9 - 44.5 % 07/13/2019 11:17 AM THERAPEUTIC STRATEGY LEAD [facility] MCV 97.8 80.0 - 100.0 fL 07/13/2019 11:17 AM THERAPEUTIC STRATEGY LEAD [facility] MCH 31.7 27.6 - 33.3 pg 07/13/2019 11:17 AM THERAPEUTIC STRATEGY LEAD [facility] MCHC 32.4 31.5 - 35.2 g/dL 07/13/2019 11:17 AM THERAPEUTIC STRATEGY LEAD [facility] RDW 11.7(L) 11.9 - 15.5 % 07/13/2019 11:17 AM THERAPEUTIC STRATEGY LEAD [facility] Platelets 221 150 - 450 x10(9)/L 07/13/2019 11:17 AM THERAPEUTIC STRATEGY LEAD [facility] Automated NRBC 0 <=0 /100 WBC 07/13/2019 11:17 AM THERAPEUTIC STRATEGY LEAD [facility] Blood Venipuncture / Unknown 07/13/2019 7:00 AM THERAPEUTIC STRATEGY LEAD 07/13/2019 10:44 AM THERAPEUTIC STRATEGY LEAD us Lul Hunter MD LAB_1 Final Result Performing Organization Address City/State/[facility] Co de Phone Number [facility] [address] [place] [address], [facility] documented in this encounter Visit Diagnoses Diagnosis Encounter for surgical aftercare following surgery on the nervous system documented in this encounter Care Teams Information Technology Security Analyst Relationship Specialty Start Date End [place] [address] PCP - General 02/28/21 documented as of this encounter
--- OUTSIDE RECORDS SUMMARY | 2024-07-20 21:26 | XMS_ITS | Encounter Summary ---
Author Organization [facility] Address [address] [address] Care Team Providers Care Financial Institution Branch Manager Name Role Phone Needs Pcp, Assignment Primary Care Provider Reason for Visit * Auth/Cert Specialty Diagnoses / Procedures Referred By Contac t Referred To Contact Diagnoses Diarrhea of presumed infectious origin Fibromyalgia Diarrhea of presumed infectious origin Fibromyalgia Diarrhea of presumed infectious origin Fibromyalgia Referral ID Status Reason Start Date Expiration Date Visits Re quested Visits Authorized [id number] 1 1 Encounter Details Date Type Department Care Team (Latest Contact Info) Description 07/15/2019 Lab Requisition [facility] [address] [facility]. [place], [place] [address] Lul Hunter MD [address] [place], [place] [id number] Enterocolitis due to Clostridium difficile, not specified [...] C.DIFFICILE TOXIN,MOLECULAR DETECTION Routine 07/15/2019 10:00 PM FIRE ALARM TECHNICIAN Enterocolitis due to Clostridium difficile, not specified as recurrent documented in this encounter Results * (ABNORMAL) C.Difficile Toxin,Molecular Detection, (07/15/2019 10:00 PM FIRE ALARM TECHNICIAN) C.difficile Detected(A ) Not Detected 07/15/2019 11:30 PM FIRE ALARM TECHNICIAN [facility] Stool Non-blood Collection / Unknown 07/15/2019 10:00 PM FIRE ALARM TECHNICIAN 07/15/2019 10:24 PM FIRE ALARM TECHNICIAN Narrative [facility] - 07/15/2019 11:30 PM FIRE ALARM TECHNICIAN Methodology: Qualitative real-time PCR assay to detect the Clostridium difficile toxin B gene. us Lul Hunter MD LAB_1 Final Result [facility] [address] documented in this encounter Visit Diagnoses Diagnosis Enterocolitis due to Clostridium difficile, not specified as recurrent documented in this encounter Care Teams Financial Institution Branch Manager Relationship Specialty Start Date End Date Needs Pcp, [place] [address] PCP - General 02/28/21 documented as of this encounter
--- OUTSIDE RECORDS SUMMARY | 2024-07-20 21:26 | XMS_ITS ---
Author Organization [facility] Care Team Providers Care Wine Cellar Worker Name Role Phone Rosmery Simpson Unavailable Unavailable Kimberly Gutierrez Unavailable Unavailable Allergies and adverse reactions Code CodeSystem Substance Reaction Severity StartDate Concern Status 31265 RXNORM Tramadol Unknown Unknown active 92278 RXNORM Gold Sodium Thiomalate Unknown Unknown a ctive Care Team Name Role Address Phone Organization Dates Rosmery Simpson PCP [address] [place], [place], [facility], [place] (Office): : [facility] 06/26/2017 - 07/11/2017 Kimberly Gutierrez Attending Physician [address] [place], [place], [facility], [facility] (Office): : [facility] 06/26/2017 - 07/11/2017 Immunizations Immunization Status Vaccine Details Vaccine Code CodeSystem Date Notes Influenza cancelled Influenza, split virus, quadrivalent, injectable, contains preservative 158 CVX created date: 06/30/2017 consent date: 06/30/2017 Stated she did not receive the influenza vaccine for this year and stated to not want it. Influenza completed Influenza, split virus, quadrivalent, injectable, contains preservative 158 CVX created date: 06/27/2017 administer ed date: 02/07/2014 TB 2 Step Mantoux Skin Test cancelled tuberculin skin test; unspecified formulation 98 CVX created date: 07/08/2017 consent date: 07/08/2017 TB 2 Step Mantoux Skin Test cancelled tuberculin skin test; unspecified formulation 98 CVX created date: 07/07/2017 consent date: 07/06/2017 Res. refused mantoux as she received mantoux from previous facility. Nursing unable to obtain results and CXR done and negative for TB. Tdap completed tetanus toxoid, reduced diphtheria toxoid, and acellular pertussis vaccine, adsorbed 115 CVX created date: 06/27/2017 administer ed date: 05/31/2016 Td: Tetanus/Diphthe tha completed tetanus and diphtheria toxoids, adsorbed, preservative free, for adult use (2 Lf of tetanus toxoid and 2 Lf of diphtheria toxoid) 09 CVX created date: 06/27/2017 administer ed date: 05/31/2016 Pneumococcal 23 completed pneumococcal polysaccharide vaccine, 23 valent 33 CVX created date: 06/27/2017 administer ed date: 03/25/2017 Mental Status Section Date Assessment Total Score Description 07/11/2017 BIMS 15 cognitively int act CAM 0 No delirium ind icated PHQ-9 10 moderate depres lillie 07/10/2017 BIMS 15 cognitively int act CAM 0 No delirium ind icated PHQ-9 10 moderate depres lillie Problems Problem # Description Date of onset Resolved Date Code CodeSystem Concern Status 1 ACUTE POSTHEMORRHAGIC ANEMIA [address] active 2 ANXIETY DISORDER, UNSPECIFIED [address] active 3 COMPLICATION OF VEIN FOLLOWING A PROCEDURE, NOT ELSEWHERE CLASSIFIED, SUBSEQUENT ENCOUNTER 018 06/30/[address] completed 4 CONSTIPATION, UNSPECIFIED [address] active 5 FIBROMYALGIA [address] active 6 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 7 HYPOTENSION, UNSPECIFIED [address] active 8 INSOMNIA, UNSPECIFIED [address] active 9 MAJOR DEPRESSIVE DISORDER, RECURRENT SEVERE WITHOUT PSYCHOTIC FEATURES [address] active 10 MUSCLE WEAKNESS (GENERALIZED) [address] active 11 NASAL CONGESTION [address] active 12 NUTRITIONAL DEFICIENCY, UNSPECIFIED [address] active 13 OTHER ABNORMALITIES OF GAIT AND MOBILITY [address] active 14 OTHER CHRONIC PAIN [address] active 15 OTHER MALAISE [address] active 16 PERIPROSTHETIC FRACTURE AROUND INTERNAL PROSTHETIC LEFT HIP JOINT, SUBSEQUENT ENCOUNTER [address] active 17 RHEUMATOID ARTHRITIS, UNSPECIFIED [address] active Reason for Referral No Reasons for Referral Entered Social History Social History Observation Description Start Date End Date Code Code System Current Smoking Status Tobacco smoking consumption unknown 322110620 SNOMED CT Sex Assigned At Female 1960 33923-[address] [facility] Vital Signs Code Code System Vitals Name Values and Units Timing Information 9279-[address] [facility] Respiratory Rate Value=18.0 Units=/m in 07/11/2017 8462-[address] [facility] Blood Pressure-Diastolic Value=64 Un its=mmHg 07/11/2017 8480-[address] [facility] Blood Pressure-Systolic Value=97 Uni ts=mmHg 07/11/2017 8310-[address] [facility] Body Temperature Value=98.1 Units= F 07/11/2017 8867-[address] [facility] Heart rate Value=72.0 Units=/min 06/2017 90554-[address] [facility] O2 % BldC Oximetry Value=98.0 Units= % 07/11/2017 48923-[address] [facility] Pain Level Value=6.0 07/11/2017 38683-[address] [facility] Weight Uosid=386.2 Units=Lbs 05/2017 8302-[address] [facility] Height Value=69.0 Units=Inches 06/27/2017
--- OUTSIDE RECORDS SUMMARY | 2024-07-20 21:26 | XMS_ITS | Clinical Summary ---
Author Organization [facility] Address [address] [place] [address] Care Team Providers Care Crop Supervisor Name Role Phone Needs Pcp, Assignment Primary Care Provider [phone] Source Comments You are receiving this document as you are listed as the primary care provider,follow-up provider, or the patient has been referred to you for consultation.This is in compliance with the Medicare and[facility] EHR Incentive Program,which states Providers who transition their patient to another setting of careor provider of care or refers their patient to another provider of care shouldprovide summary care record for each transition of care or referral. [facility] Allergies Active Allergy Reactions Criticality Noted Date [...] (OCEAN) 0.65 % nasal solution Place 1 [place] into both nostrils every 2 hours as needed for Congestion. Active bacitracin-polym yxin b (POLYSPORIN) 500-68123 UNIT/GM ointmentIndicati ons:dry nose Apply topically two [...] (06/14/2019): Added automatically from request for surgery [id number] Sarcoidosis, lung 06/01/2019 Recurrent major depressive disorder [...] (145 lb 12.8 oz) 07/16/2019 9:00 PM MATERIAL PREPARATION WORKER Height 172.7 cm (5' 8) 07/15/2019 9:30 PM MATERIAL PREPARATION WORKER Body Mass Index 22.17 07/15/2019 9:30 PM MATERIAL PREPARATION WORKER Plan of Treatment Health Maintenance Due Date [...] this topic Medical Devices Implanted Type Area Product Analyst Device Identifier Shelf Expiration Date Model / Serial / Lot Chip Jesusita Faria 30cc - [id number] Implanted:Qty: 1 on 07/07/2019 by Tobias Martin MD at [facility] DEVICE Right: LEG [employer] - [employer] 06/30/2023 [id number] / [id number] / [id number] Chip Canc Giana 30cc - [id number] Implanted:Qty: 1 on 07/07/2019 by Tobias Martin MD at [facility] DEVICE Right: LEG [employer] - [employer] 06/30/2023 [id number] / [id number] / [id number] Procedures Procedure Name Priority Date/Time [...] Negative (Non Reactive) 08/25/2018 4:34 PM CDT [facility] Comment:Antibodies to HCV no t detected. Does not exclude the possiblity of exposure to HCV. Blood Venipuncture / Unknown 08/25/2018 11:24 AM CDT 08/25/2018 11:24 AM CDT us Carin Rainey MD LAB_1 Final Resul t [facility] [address] [place], [place] [address] * MM Mammogram Screening Bilat [...] Most Recently Relevant to Health [place] [address] MEDICARE [facility] MEDICARE SUPPLEMENT MEDICARE BCBS MEDICARE SUPPLEMENT [place] [id number] MEDICARE BCBS MEDICARE SUPPLEMENT Advance Directives Documents on File Type Date Recorded Patient Resource Room Special Education Teacher Expl anation HEALTHCARE DIRECTIVE 07/10/2019 ADVANCE D DIRECTIVE 07/10/2019 * Full Code (Latest Code Status on File) Date Activated Date Inactivated Comments 07/15/2019 9:18 PM 07/20/2019 4:20 PM * Full Code Date Activated Date Inactivated Comments 07/07/2019 4:33 PM 07/10/2019 6:22 PM Care Teams Crop Supervisor Relationship Specialty Start Date End Date Needs Pcp, [place], [place] [address] PCP - General 02/28/21
[2024-07-20 21:46] VITALS: BP 127/90; PULSE 90; RESP 16; TEMP 36.6; O2SAT 97; BMI 27.3
--- NOTE | 2024-07-21 | ED.FALL ---
HPI - Fall General Time Seen by Provider: 00:00 Date Seen: 07/21/24 Chief Complaint: Fall/Minor Trauma Stated Complaint: Fall, bleeding elbow, hit chest, trouble breathing Time Seen by Provider: 07/20/24 23:59 Source: patient, RN notes reviewed and old records reviewed Mode of arrival: ambulatory Limitations: no limitations History of Present Illness HPI Narrative: 64-year-old female who presents today after a fall, landed on her right side is complaining of pain in the right elbow in chest, hurts to breathe. Patient says she was walking and stepped on a speed bump that she did see. She landed on her right side, needs of right elbow pain and right chest wall pain. Pain with breathing. No head injury, no neck pain, no back pain. Ambulatory since injury. Related Data Home Medications ?Medication ?Instructions ?Recorded ?Confirmed clobetasol 0.05 % topical ointment 1 applic topical .qod 11/21/21 07/16/24 liothyronine 5 mcg tablet 5 mcg PO .B.i.d. 11/21/21 07/16/24 lorazepam 0.5 mg tablet 0.5 mg PO Q12H PRN 12/08/21 07/16/24 melatonin 3 mg capsule 9 mg PO HS 12/08/21 07/16/24 trazodone 50 mg tablet 100 mg PO QHS PRN 01/17/23 07/16/24 buspirone 15 mg tablet 15 mg PO BID 03/25/23 07/16/24 cyclosporine 0.05 % eye drops in a drp ophthalmic (eye) 03/25/23 07/16/24 dropperette lidocaine HCl 2 % mucosal solution PO 03/25/23 07/16/24 (Lidocaine Viscous) tretinoin 0.025 % topical cream 1 applic topical QPM 03/25/23 07/16/24 valacyclovir 1 gram tablet 1,000 mg PO 3XD 03/25/23 07/16/24 varenicline tartrate 0.03 mg/spray intranasal 03/25/23 07/16/24 metered nasal spray (Tyrvaya) cyclobenzaprine 5 mg tablet 5 mg PO QPM PRN 09/17/23 07/16/24 vilazodone 20 mg tablet 20 mg PO DAILY 11/10/23 07/16/24 rosuvastatin 5 mg tablet 5 mg PO DAILY 02/04/24 07/16/24 Previous Rx's ?Medication ?Instructions ?Recorded Lactobacillus acidophilus 0.5 mg 1 tab PO TIDWM 90 days #90 tabs 12/10/21 (100 million cell) tablet hydromorphone 2 mg tablet 2 mg PO Q4H PRN 5 days #30 tabs 12/10/21 albuterol sulfate 90 mcg/actuation 2 puff inhalation Q4-6H PRN 03/05/23 aerosol inhaler shortness of breath or wheezing #8.5 grams triamcinolone acetonide 0.025 % 1 applic topical BID #15 grams 03/25/23 topical cream estradiol 10 mcg vaginal tablet 10 mcg vaginal 2XW #24 tabs 11/04/23 (Yuvafem) estradiol 1 mg tablet 0.5 mg (1/2 x 1 mg) PO QDAY #45 11/05/23 tabs ondansetron HCl 4 mg tablet 4 mg PO Q6H #10 tabs 11/11/23 fluconazole 150 mg tablet 150 mg PO Q3D 2 doses #2 tabs 02/06/24 progesterone micronized 100 mg 100 mg PO QHS #90 caps 04/27/24 capsule hydromorphone 2 mg tablet 2 mg PO Q6H PRN pain #8 tabs 07/21/24 Allergies Allergy/AdvReac Type Severity Reaction Status Date / Time auranofin Allergy Verified 01/09/24 11:25 cat dander Allergy Verified 01/09/24 11:25 Gadolinium-Containing Allergy Verified 01/09/24 11:25 Contrast Medi gluten Allergy Verified 01/09/24 11:25 gold keratinate Allergy Verified 01/09/24 11:25 gold sodium thiomalate Allergy Verified 01/09/24 11:25 ketamine Allergy Verified 02/06/24 16:42 lactose Allergy Verified 01/09/24 11:25 Opioids - Morphine Analogues Allergy Verified 01/09/24 11:25 goldshots Allergy Severe Anaphylaxis Uncoded 01/09/24 11:25 [facility] Medical History Herpes zoster ?B02.9 - Zoster without complications (ICD-10) Diverticulitis ?K57.92 - Diverticulitis of intestine, part unspecified, without perforation or abscess without bleeding (ICD-10) Closed T12 fracture ?S22.089A - Unspecified fracture of T11-T12 vertebra, initial encounter for closed fracture (ICD-10) History of Clostridioides difficile colitis ?Z86.19 - Personal history of other infectious and parasitic diseases (ICD-10) History of hypothyroidism ?Z86.39 - Personal history of other endocrine, nutritional and metabolic disease (ICD-10) History of diverticulitis of colon (05/09/11) ?Z87.19 - Personal history of other diseases of the digestive system (ICD-10) History of Clostridioides difficile infection ?Z86.19 - Personal history of other infectious and parasitic diseases (ICD-10) Abscess of sigmoid colon due to diverticulitis ?K57.20 - Diverticulitis of large intestine with perforation and abscess without bleeding (ICD-10) Osteoporosis ?M81.0 - Age-related osteoporosis without current pathological fracture (ICD-10) Sigmoid diverticulitis ?K57.32 - Diverticulitis of large intestine without perforation or abscess without bleeding (ICD-10) History of femur fracture ?Z87.81 - Personal history of (healed) traumatic fracture (ICD-10) Insomnia ?G47.00 - Insomnia, unspecified (ICD-10) Anxiety ?F41.9 - Anxiety disorder, unspecified (ICD-10) Sarcoidosis ?D86.9 - Sarcoidosis, unspecified (ICD-10) Hypothyroidism ?E03.9 - Hypothyroidism, unspecified (ICD-10) Sensorineural hearing loss (SNHL) of both ears ?H90.3 - Sensorineural hearing loss, bilateral (ICD-10) Depression ?F32.A - Depression, unspecified (ICD-10) Chronic fatigue syndrome ?R53.82 - Chronic fatigue, unspecified (ICD-10) 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 - Unspecified juvenile rheumatoid arthritis of unspecified site (ICD-10) Migraines ?G43.909 - Migraine, unspecified, not intractable, without status migrainosus (ICD-10) Diverticulitis of intestine with abscess ?K57.80 - Diverticulitis of intestine, part unspecified, with perforation and abscess without bleeding (ICD-10) Surgical History History of total knee replacement ?Z96.659 - Presence of unspecified artificial knee joint (ICD-10) S/P hammer toe correction ?Z98.890 - Other specified postprocedural states (ICD-10) ?Z87.39 - Personal history of other diseases of the musculoskeletal system and connective tissue (ICD-10) History of repair of rotator cuff ?Z98.890 - Other specified postprocedural states (ICD-10) History of tonsillectomy ?Z90.89 - Acquired absence of other organs (ICD-10) History of total hip arthroplasty ?Z96.649 - Presence of unspecified artificial hip joint (ICD-10) History of bilateral knee arthroplasty ?Z96.653 - Presence of artificial knee joint, bilateral (ICD-10) Family History Father High blood pressure Hyperlipidemia Mother High blood pressure Hyperlipidemia Sister Seizure disorder Social History Narrative: She lives alone in [place]. 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 She does not smoke. She drinks alcohol about once a month. She uses no recreational drugs. She does have a history of chemical dependency. Healthcare power of deputy county attorney is her sister Denise. Code status is full. Are you following a special diet: Yes (no gluten, lactose intolerent) Highest level of school completed/degree received: Master's degree Smoking Status: Never smoker Do you use any of these nicotine containing products: None Second hand tobacco smoke exposure: No How often do you have a drink containing alcohol: monthly or less AUDIT-C Alcohol total score: 1 Non-prescribed substance use: denies use Caffeine: Yes (coffee 3x weekly) Are you now , , , , never or living with a partner: Social isolation score (0-1 are the most socially isolated patients): 0 Are you currently sexually active: No service: No Exam Narrative: Exam Narrative: General: Well-developed and well-nourished, no acute distress Head: Atraumatic and normocephalic Eyes: Pupils are equal reactive, extraocular motions intact, conjunctiva clear ENT: External nose and ears are normal, posterior pharynx without erythema or exudate Neck: No midline cervical tenderness, full spontaneous range of motion the neck, trachea midline, no adenopathy Heart: Regular rate and rhythm no murmurs or thrills Lungs: Clear to auscultation bilaterally without wheezes or crackles. Tenderness along the right sternal border and right floating ribs Abdomen: Soft, nontender, nondistended with active bowel sounds Musculoskeletal: Partial-thickness laceration of the right elbow with extensive bruising around this, full flexion extension of the elbow along with full supination and pronation. Bruising over the 4th and 5th metacarpals. Neurologic: Awake, alert, and oriented x3, no gross focal neurologic deficits, cranial nerves intact as tested Psych: Mood and affect are appropriate Skin: No rashes Const: Vital Signs, click to edit/add: Vital Signs - 24 hr 07/20/24 21:46 07/21/24 01:01 Temperature 97.8 F 97.6 F Pulse Rate [Pulse Oximeter] 90 97 Respiratory Rate 16 18 Blood Pressure [Ri ght Upper Arm] 127/90 H 135/74 Pulse Oximetry 97 98 Oxygen Delivery Me thod Room Air Room Air Course Course ED Course: Reviewed prior medical records with history diverticulitis, sarcoidosis, and anxiety as well as chronic fatigue. patient presents today after tripping falling, landing on her right side. No head injury, no loss of consciousness, patient is not on blood thinners, no indication for head CT. She has superficial laceration of the right elbow which will be repaired with Dermabond. Also abrasion bruising the right hand, x-ray ordered. Her predominant concern is pain in the chest that is worse with breathing. X-ray ordered, equal lung sounds bilaterally, suspect soft tissue injury, consider rib fractures as well. Reevaluation(s) Time of Reevaluation #1: 00:49 Reevaluation #1: X-ray of the right hand independently interpreted by me negative for acute findings. Chest x-ray independently interpreted by without acute displaced fracture, no pneumothorax or hemothorax. Time of Reevaluation #2: 01:04 Reevaluation #2: Reviewed radiology interpretation of chest x-ray with hazy bibasilar opacities, atelectasis versus pneumonia. Patient has no cough, no fever and was asymptomatic prior to her fall. This likely represents atelectasis due to poor respiratory effort secondary to pain. Patient will be discharged with pain medication and incentive spirometer. Vital Signs Vital signs: Initial Vital Signs Temperature 97.8 F 07/20/24 21:46 Temperature Source Temporal Artery Scan 07/20/24 21:46 Pulse Rate 90 07/20/24 21:46 Respiratory Rate 16 07/20/24 21:46 Blood Pressure 127/90 H 07/20/24 21:46 Blood Pressure Mean 102 07/20/24 21:46 Blood Pressure Position Sitting 07/20/24 21:46 Pulse Oximetry 97 07/20/24 21:46 Oxygen Delivery Method Room Air 07/20/24 21:46 Vital Signs Temperature 97.8 F 07/20/24 21:46 Pulse Rate 90 07/20/24 21:46 Respiratory Rate 16 07/20/24 21:46 Blood Pressure 127/90 H 07/20/24 21:46 Pulse Oximetry 97 07/20/24 21:46 Oxygen Delivery Method Room Air 07/20/24 21:46 Temperature 97.6 F 07/21/24 01:01 Pulse Rate 97 07/21/24 01:01 Respiratory Rate 18 07/21/24 01:01 Blood Pressure 135/74 07/21/24 01:01 Pulse Oximetry 98 07/21/24 01:01 Oxygen Delivery Method Room Air 07/21/24 01:01 Discharge Plan Discharge Clinical Impression: Contusion of hand, right, Contusion of elbow, right, Laceration of elbow, right, Chest wall contusion Patient Disposition: Home, Self-Care Condition: Stable Instructions: Contusion in Adults (ED), Skin Adhesive Care (ED), Rib Contusion (ED) Activity Level: Activity as Tolerated Prescriptions: New hydromorphone 2 mg tablet 2 mg PO Q6H PRN (Reason: pain) Qty: 8 0RF No Action trazodone 50 mg tablet 100 mg PO QHS PRN Tyrvaya 0.03 mg/spray spray, metered, non-aerosol intranasal Patient Comments: [NO ORIGINAL SIG] cyclosporine 0.05 % dropperette ophthalmic (eye) lidocaine HCl [Lidocaine Viscous] 2 % solution PO tretinoin 0.025 % cream 1 applic topical QPM buspirone 15 mg tablet 15 mg PO BID valacyclovir 1 gram tablet 1,000 mg PO 3XD triamcinolone acetonide 0.025 % cream 1 applic topical BID Qty: 15 0RF Rx Instructions: Apply small amount to affected area cyclobenzaprine 5 mg tablet 5 mg PO QPM PRN vilazodone 20 mg tablet 20 mg PO DAILY fluconazole 150 mg tablet 150 mg PO Q3D Qty: 2 0RF Rx Instructions: may repeat second dose 72 hrs after first dose if symptoms persist albuterol sulfate 90 mcg/actuation HFA aerosol inhaler 2 puff inhalation Q4-6H PRN (Reason: shortness of breath or wheezing) Qty: 8.5 0RF estradiol [Yuvafem] 10 mcg tablet 10 mcg vaginal 2XW Qty: 24 3RF ondansetron HCl 4 mg tablet 4 mg PO Q6H Qty: 10 0RF rosuvastatin 5 mg tablet 5 mg PO DAILY liothyronine 5 mcg tablet 5 mcg PO .B.i.d. clobetasol 0.05 % ointment 1 applic TOPICAL .qod lorazepam 0.5 mg tablet 0.5 mg PO Q12H PRN melatonin 3 mg capsule 9 mg PO HS hydromorphone 2 mg Tablet 2 mg PO Q4H PRN5 Days Qty: 30 0RF Lactobacillus acidophilus 0.5 mg (100 million cell) Tablet 1 tab PO TIDWM 90 Days Qty: 90 0RF estradiol 1 mg tablet 0.5 mg PO QDAY Qty: 45 3RF Rx Instructions: Take 1/2 tab (0.5 mg) daily. progesterone micronized 100 mg capsule 100 mg PO QHS Qty: 90 2RF Follow Up/Referrals: Nivia Bruno MD [Primary Care Provider] - Stand Alone Forms: [facility] Info Instructions
--- OUTSIDE RECORDS SUMMARY | 2024-07-21 00:25 | XMS_ITS | Encounter Summary ---
Author Organization [facility] Address [address] [place] [address] Care Team Providers Care Forensic Pathologist Name Role Phone Kelsi Handy MD Unavailable Nivia Bruno MD Primary Care Provider [phone] Encounter Details Date Type Department Care Team ([facility] Contact Info) Description 06/13/2021 Telephone [facility] Behavioral Health Intake [address] [place] [id number] Generic, Behavioral Intake, Social History Tobacco Use Types Packs/Day Years Used Date Smoking Tobacco: Never Smokeless Tobacco: Never Alcohol Use Standard Drinks/Week Comments No 0 (1 standard drink = 0.6 oz pur e alcohol) PHQ-2 Answer Date Recorded PHQ-2 Score 2 06/13/2021 Comments No Sex and Gender Information Value Date Recorded Sex Assigned at Not on file Legal Sex Female 3:16 AM [employer]ASHIER PAYMENTS RECEIVED Gender Identity Not on file Sexual Orientation Not on file documented as of this encounter Miscellaneous Notes * Telephone Encounter - Rafael Cota - 06/29/2021 12:06 PM CST ----- Message from KETTY Lynn sent at 06/29/2021 11:41 AM CASHIER PAYMENTS RECEIVED ----- Regarding: new start Clinic 1 on 07/05 Scheduling Request Patient Name: Juliette Brown Location of [facility] Start Date: June Group: Clinic 1 on at 1:00 to 3:00PM Attending Provider (MD): 12 Number of visits to be scheduled: 12 Duration of Appointment in minutes: 120 min Visit Type: Zoom - 2657 Additional notes: IER PAYMENTS RECEIVED * Telephone Encounter - Jen Serrano - 06/13/2021 9:38 AM CST ----- Message from SHANNON Warner sent at 06/13/2021 9:12 AM CASHIER PAYMENTS RECEIVED ----- Regarding: add appointment Scheduling Request Patient Name: ?? Location of programming: [facility] 55+ Start Date:06/13/21 Group ([facility] on #days of the week# at #start time to end time#): 55+ B1 M,W,F 1-4pm Provider (name of MD): Niall Number of visits to be scheduled: 1 Duration of Appointment in minutes: 180 mins Visit Type ([place] - 2702 / Zoom - 2657 / In-person or Treatment - 870) :2657-zoom Additional notes: IER PAYMENTS RECEIVED documented in this encounter Plan of Treatment Not on file documented as of this encounter Visit Diagnoses Not on filedocumented in this encounter Additional Health Concerns Assessment Noted Time PHQ-9 Depression Total Score: 7 06/14/19 22 10:59 AM C[employer]IER PAYMENTS RECEIVED documented as of this encounter Care Teams Forensic Pathologist Relationship Specialty Start Date End Date Nivia Bruno MD [address] [place] [address] PCP - General 03/22/21 Kelsi Handy MD [address] [place] [address] Assigned OBGYN Provider 04/23/20 3 documented as of this encounter
--- OUTSIDE RECORDS SUMMARY | 2024-07-21 00:25 | XMS_ITS ---
Author Organization [facility] Care Team Providers Care Cake Puller Name Role Phone Alpa Keith Unavailable Unavailable Allergies and adverse reactions Code CodeSystem Substance Reaction Severity StartDate Concern Status 33601 RXNORM traMADol Unknown 04/01/2022 active Opioids- Morphin e Analogues Unknown 04/01/2022 active 37053 RXNORM Gold Sodium Thiomalate Anaphylaxis (code- 47203118, SNOMED CT) Severe 07/28/2019 active GOLD Keratinate Anaphylaxis (code- 85731542, SNOMED CT) Severe 07/28/2019 active Gadolinium Unknown 07/20/2019 active Cat dander Unknown 07/28/2019 active 1227 RXNORM Auranofin Unknown 07/20/2019 active Care Team Name Role Address Phone Organization Dates Alpa Keith Attending Physician [address] [place], [address], [place] (Office): : (Pager): [facility] 04/01/2022 - 04/15/2022 Immunizations Immunization Status Vaccine Details Vaccine Code CodeSystem Date Notes Influenza completed Influenza, high-dose, split virus, quadrivalent, injectable, preservative free 197 CVX created date: 2 administe red date: 2 TB 2 Step Mantoux Skin Test completed tuberculin skin test; unspecified formulation lotNumber: [id number] expiry: 10/10/2024 Mfg: [employer] Given 0.1 ml Right Forearm intradermally Step 1 of Multi-step with next step required 98 CVX created date: 2 consent date: 2 administe red date: 2 Educated by Nila Bates on 04/01/2022 TB 2 Step Mantoux Skin Test completed tuberculin skin test; unspecified formulation lotNumber: [id number] expiry: 07/09/2020 Mfg: par Given 0.1 ml [...] End Date Estrace Tablet 0.5 MG active 714703 RXNORM 1 tablet Oral in the morning Routine Give 1 tablet by mouth in the mornin g for . 2021 - Ketoconazole Cream 2 % active 138131 RXNORM n/a n/a Topical as needed PRN Apply to affect ed area topica lly as needed for . once daily 2021 - Miconazole Nitrate Cream 2 % active 635917 RXNORM n/a n/a Topical two times a day Routine Apply to vulva, rectal area topica lly two times a day for candid al skin infect ion 2021 - Liothyronine Sodium Tablet 5 MCG active 458789 RXNORM 1 tablet Oral two times a day Routine Give 1 tablet by mouth two times a day for hypoth yroidi sm 2021 - Betamethasone Dipropionate Cream 0.05 % active 613921 RXNORM n/a n/a Topical in the afternoon Routine Apply to affect ed area topica lly in the aftern oon for lichen sclero reyna 2021 - Zofran ODT Tablet Disintegratin g 4 MG active 149540 RXNORM 4 mg Oral as needed PRN Give 4 mg by mouth every 8 hours as needed for nausea place on tongue 2021 - Tretinoin Cream 0.025 % active 415364 RXNORM n/a n/a Topical at bedtime Routine Apply to affect ed area topica lly at bedtim e for sun-da supriya skin 2021 - Melatonin Tablet 10 MG active 8564843 RXNORM 10 mg Oral at bedtime Routine Give 10 mg by mouth at bedtim e for insomn ia 2021 - Multivitamin Tablet active 1 tablet Oral in the morning Routine Give 1 tablet by mouth in the mornin g for supple ment 2021 - Wayland-3 Fatty Acids Capsule active 2000 mg Oral in the morning Routine Give 2000 mg by mouth in the mornin g for supple ment 2021 - Sodium Chloride Solution 0.65 % active 198867 RXNORM 1 spray Nasal as needed PRN 1 spray in both nostri ls every 2 hours as needed for hayfev er 2021 - Zoloft Tablet 50 MG active 246731 RXNORM 50 mg Oral in the morning Routine Give 50 mg by mouth in the mornin g for KATY 2021 - Prometrium Capsule 100 MG active 706889 RXNORM 100 mg Oral at bedtime Routine Give 100 mg by mouth at bedtim e for . 2021 - Albuterol Sulfate HFA Aerosol Solution 108 (90 Base) MCG/ACT active 2942279 RXNORM 2 puff Inhalat ion as needed [...] 2021 - MiraLax Packet 17 GM active 379680 RXNORM 17 gram Oral in the evening Routine Give 17 gram by mouth in the evenin g for consti pation AND Give 17 gram by mouth as needed for consti pation qd prn 2021 - 954817 RXNORM 17 gram Oral as needed PRN Give 17 gram by mouth in the evenin g for consti pation AND Give 17 gram by mouth as needed for consti pation qd prn 2021 - busPIRone HCl Tablet 10 MG active 731050 RXNORM 10 mg Oral two times a day Routine Give 10 mg by mouth two times a day for depres lillie 2021 - Dilaudid Tablet 2 MG active 566266 RXNORM 1 mg Oral as needed PRN Give 1 mg by mouth as needed for pain tid prn 2021 - traZODone HCl Tablet 50 MG active 557765 RXNORM 1 tablet Oral as needed PRN Give 1 tablet by mouth as needed for insomn ia until 2021 23:59 can have if 1st dose not effect mathieu AND Give 1 tablet by mouth at bedtim e for insomn ia 04/24 858876 RXNORM 1 tablet Oral at bedtime Routine Give 1 tablet by mouth as needed for insomn ia until 2021 23:59 can have if 1st dose not effect mathieu AND Give 1 tablet by mouth at bedtim e for insomn ia 2021 - Senna Plus Tablet 8.6-50 MG active 567385 RXNORM 2 tablet Oral one time a [...] Code CodeSystem Concern Status 1 INSOMNIA, UNSPECIFIED 604803024 SNOMED CT active 2 CHRONIC FATIGUE, UNSPECIFIED 61536989 SNOMED CT active 3 DIFFICULTY IN WALKING, NOT ELSEWHERE CLASSIFIED 993074089 SNOMED CT active [address] active 5 MUSCLE WEAKNESS (GENERALIZED) 84905963 SNOMED CT active 6 ACUTE CANDIDIASIS OF VULVA AND VAGINA 163481076 SNOMED CT active 7 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 OR ABSCESS WITHOUT BLEEDING 07437897 SNOMED CT active [address] active 9 ENCOUNTER FOR SURGICAL AFTERCARE FOLLOWING SURGERY ON THE DIGESTIVE SYSTEM 887331406 SNOMED CT active 10 HYPOTHYROIDISM, UNSPECIFIED 13225334 SNOMED CT active 11 MAJOR DEPRESSIVE DISORDER, RECURRENT, MODERATE 14522571 SNOMED CT active 12 MIGRAINE, UNSPECIFIED, NOT INTRACTABLE, WITHOUT STATUS MIGRAINOSUS 41757329 SNOMED CT active 13 OTHER ABNORMAL GLUCOSE 803182629 SNOMED CT active 14 OTHER INTERVERTEBRAL DISC DEGENERATION, LUMBOSACRAL REGION 74856860 SNOMED CT active 15 OTHER NONSPECIFIC ABNORMAL FINDING OF LUNG FIELD 156086259 SNOMED CT active 16 PERSONAL HISTORY OF (HEALED) TRAUMATIC FRACTURE 943362546 SNOMED CT active 17 SENSORINEURAL HEARING LOSS, BILATERAL 867303422 SNOMED CT active 18 UNSPECIFIED OSTEOARTHRITIS, UNSPECIFIED SITE 548675382 SNOMED CT active 19 UNSPECIFIED TEMPOROMANDIBULAR JOINT DISORDER, UNSPECIFIED SIDE 06971685 SNOMED CT active 20 URGENCY OF URINATION 46629569 SNOMED CT active 21 URINARY TRACT INFECTION, SITE NOT SPECIFIED 17490241 SNOMED CT active 22 ANEMIA, UNSPECIFIED 04/01/[address] completed 23 ANXIETY DISORDER, UNSPECIFIED 764896523 SNOMED CT active 24 CHRONIC FATIGUE, UNSPECIFIED 04/01/[address] completed 25 DIFFICULTY IN WALKING, NOT ELSEWHERE CLASSIFIED 04/01/[address] completed 26 ENTEROCOLITIS DUE TO CLOSTRIDIUM DIFFICILE, NOT SPECIFIED RECURRENT 04/01/[address] completed 27 FIBROMYALGIA 04/01/[address] completed 28 HYPERLIPIDEMIA, UNSPECIFIED 04/01/[address] completed 29 MAJOR DEPRESSIVE DISORDER, RECURRENT, UNSPECIFIED 04/01/[address] completed 30 MUSCLE WEAKNESS (GENERALIZED) 04/01/[address] completed 31 OTHER SPECIFIED DISORDERS OF BONE DENSITY AND STRUCTURE, UNSPECIFIED SITE 04/01/[address] completed 32 RESISTANCE TO MULTIPLE ANTIBIOTICS 04/01/[address] completed 33 SARCOIDOSIS OF LUNG 04/01/[address] completed 34 UNSPECIFIED FRACTURE OF LOWER END OF RIGHT FEMUR, SUBSEQUENT ENCOUNTER FOR CLOSED FRACTURE WITH NONUNION 04/01/[address] completed Reason for Referral No Reasons for Referral Entered Social History Social History Observation Description Start Date End Date Code Code System Current Smoking Status Tobacco smoking consumption unknown 473780754 SNOMED CT Sex Assigned At Female 1960 20474-5 [facility] Vital Signs Code Code System Vitals Name Values and Units Timing Information 8462-4 [facility] Blood Pressure-Diastolic Value=71 Un its=mmHg 04/15/2022 8480-6 [facility] Blood Pressure-Systolic Jseoi=067 Un its=mmHg 04/15/2022 8310-5 [facility] Body Temperature Value=97.2 Units= F 04/15/2022 8867-4 [facility] Heart rate Value=99.0 Units=/min 09/2021 34892-7 [facility] O2 % BldC Oximetry Value=98.0 Units= % 04/15/2022 9279-1 [facility] Respiratory Rate Value=16.0 Units=/m in 04/14/2022 51329-2 [facility] Pain Level Value=0.0 04/14/2022 34441-3 [facility] Weight Ohwrh=174.3 Units=Lbs 08/2021 8302-2 [facility] Height Value=68.0 Units=Inches 07/21/2019
--- OUTSIDE RECORDS SUMMARY | 2024-07-21 00:26 | XMS_ITS | Clinical Summary ---
Author Organization [facility] Address [address] [place] [address] , [address] [place] [address] Phone Care Team Providers Care Cmm Operator Name Role Phone [facility] Unavailable Unava ilable Conditions or Problems Problem Name Problem Code Onset Date Status Entry Date Provider Comment Standard Description Annotate Myalgia of auxiliary muscles, head and neck 52580833 (SNOMED CT) 06/27 Active 06/27 Jina Johnson DNP,[employer]ORATORY TECHNOLOGIST,CN P Muscle pain Hemifacial spasm R 04375257 (SNOMED CT) 08/10 Active 08/10 Norberto Miller Jr, MD Hemifacial spasm Facial pain, atypical 23153971 (SNOMED CT) 08/10 Active 08/10 Norberto Miller Jr, MD Atypical facial pain 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), right 93233574 (SNOMED CT) 08/10 Active 08/10 Norberto Miller Jr, MD Arthritis of temporomandibul ar joint Cervical spasm 06830911 (SNOMED CT) 08/10 Active 08/10 Norberto Miller Jr, MD Muscle spasm of head and/or neck Juvenile rheumatoid arthritis 407861632 (SNOMED CT) 08/10 Active 08/10 Norberto Miller [...] limb movement disorder (moderate; 15/hr; most w/arousals) 880029355 (SNOMED CT) 11/01 Inactive 11/03 Norberto Miller Jr, MD Periodic limb movement disorder 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 (ICD-10-CM ) 09/20 Active 09/20 Norberto Miller Jr, MD Sleep disorder, unspecified Fatigue 51028835 (SNOMED CT) 09/20 Active 09/20 Norberto Miller Jr, MD Fatigue Paresthesia of bilateral legs 30486532 (SNOMED CT) 11/10 Active 11/10 Regan Santiago MD Paresthesia Anxiety, generalized F41.1 (ICD-10-CM ) 01/17 Active 01/17 Jesika Diallo PhD Generalized anxiety disorder Restless leg syndrome (PLMS 15/hr) G25.81 (ICD-10-CM ) 09/04 Active 09/04 Norberto Miller Jr, MD Restless legs syndrome Sleep disturbance , nos 57154410 (SNOMED CT) 09/04 Inactive 09/04 Norberto Miller Jr, MD Dyssomnia 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 (ICD-10-CM ) 09/04 Active 09/04 Norberto Miller Jr, MD Insomnia, unspecified Snoring 47272293 (SNOMED CT) 09/04 Active 09/04 Norberto Miller Jr, MD Snoring Restless leg syndrome 27589184 (SNOMED CT) 09/04 Inactive 09/04 Norberto Miller Jr, MD Restless legs 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 (ICD-10-CM ) 09/04 Active 09/04 Norberto Miller Jr, MD Abnormal level of blood mineral traumatic brain injury, initial encounter S06.309A (ICD-10-CM ) 08/02 Active 08/07 Zuleyma Ly 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, initial encounter Hypothyroid ism 61906988 (SNOMED CT) 08/02 Active 08/07 Zuleyma Ly Hypothyroidism depression 91723173 (SNOMED CT) 08/02 Active 08/07 Zuleyma Ly Depressive disorder Memory problems R41.3 (ICD-10-CM ) 08/02 Active 08/07 Zuleyma Ly Other amnesia Medications Medication Instructions Start Date Stop Date Generic Name NDC Provider ESCITALOPRAM OXALATE 20 MG TABS 12/10 escitalopram oxalate 29367173560 Norberto Miller Jr, MD LORAZEPAM 0.5 MG TABS 12/10 lorazepam 66886539829 Norberto Miller Jr, MD TRETINOIN 0.025 % CREA 12/10 tretinoin 99725287154 Norberto Miller Jr, MD MELATONIN 10 MG TABS 1 by mouth every night 12/10 melatonin-lemon balm leaf extr 29065145880 Norberto Miller Jr, MD TRIAMCINOLONE ACETONIDE 0.1 % CREA 12/10 triamcinolone acetonide 24560347172 Norberto Miller Jr, MD SUMATRIPTAN SUCCINATE 25 MG TABS 12/10 sumatriptan succinate 31297543164 Norberto Miller Jr, MD BUSPIRONE HCL 15 MG TABS 12/10 buspirone 77288366493 Norberto Miller Jr, MD DIPHENOXYLATE-ATRO PINE 2.5-0.025 MG TABS 12/10 diphenoxylate-atr opine 22665192000 Norberto Miller Jr, MD TYRVAYA 0.03 MG/ACT SOLN 12/10 varenicline 51976707169 Norberto Miller Jr, MD ESCITALOPRAM OXALATE 10 MG TABS 12/10 escitalopram oxalate 29845187637 Norberto Miller Jr, MD LIDOCAINE VISCOUS HCL 2 % SOLN 12/10 lidocaine hcl 77982217916 Norberto Miller Jr, MD LIOTHYRONINE SODIUM 5 MCG TABS 12/10 liothyronine 35037914727 Norberto Miller Jr, MD HYDROMORPHONE HCL 2 MG TABS 12/10 hydromorphone 67439640974 Norberto Miller Jr, MD ROPINIROLE HCL 0.25 MG TABS 12/10 ropinirole 35896326910 Norberto Miller Jr, MD POLYMYXIN B-TRIMETHOPRIM 70008-4.1 UNIT/ML-% SOLN 12/10 polymyxin b sulf-trimethoprim 12859532640 Norberto Miller Jr, MD YUVAFEM 10 MCG TABS 12/10 estradiol 76059948712 Norberto Miller Jr, MD SULFAMETHOXAZOLE-T RIMETHOPRIM 800-160 MG TABS 12/10 sulfamethoxazole- trimethoprim 32935287187 Norberto Miller Jr, MD VALACYCLOVIR HCL 1 GM TABS 12/10 valacyclovir 50490508043 Norberto Miller Jr, MD LIDOCAINE 5 % PTCH lidocaine 80146906408 Norberto Miller Jr, MD TRIAMCINOLONE ACETONIDE 0.1 % PSTE triamcinolone acetonide 78715562823 Norberto Miller Jr, MD PROGESTERONE 100 MG CAPS TAKE ONE CAPSULE BY MOUTH AT BEDTIME* progesterone micronized 59141475087 Norberto Miller Jr, MD ESTRADIOL 1 MG TABS estradiol 72656649003 Norberto Miller Jr, MD DIPHENOXYLATE-ATRO PINE 2.5-0.025 MG TABS diphenoxylate-at r opine 53504458522 Norberto Miller Jr, MD LIOTHYRONINE SODIUM 5 MCG TABS liothyronine 19151794991 Norberto Miller Jr, MD MELOXICAM 15 MG TABS meloxicam 35887585432 Norberto Miller Jr, MD ONDANSETRON HCL 4 MG TABS ondansetron hcl 68301689242 Norberto Miller Jr, MD AMOXICILLIN 500 MG CAPS amoxicillin 02431456945 Norberto Miller Jr, MD HYDROMORPHONE HCL 2 MG TABS hydromorphone 15619872594 Norberto Miller Jr, MD YUVAFEM 10 MCG TABS estradiol 83204461466 Norberto Miller Jr, MD VILAZODONE HCL 20 MG TABS vilazodone 34479739713 Norberto Miller Jr, MD VILAZODONE HCL 10 MG TABS vilazodone 77909631504 Norberto Miller Jr, MD ESCITALOPRAM OXALATE 20 MG TABS escitalopram oxalate 08172292740 Norberto Miller Jr, MD BUSPIRONE HCL 15 MG TABS buspirone 34461658540 Norberto Miller Jr, MD TRAZODONE HCL 50 MG TABS trazodone 32046401058 Norberto Miller Jr, MD PREDNISONE 20 MG TABS prednisone 62496214638 Norberto Miller Jr, MD PROPRANOLOL HCL 20 MG TABS 08/10 propranolol 22411343794 Norberto Miller Jr, MD HYDROMORPHONE HCL 2 MG TABS 12/10 hydromorphone 89647717833 Norberto Miller Jr, MD ROPINIROLE HCL 0.25 MG TABS 12/10 ropinirole 96630316289 Norberto Miller Jr, MD ESCITALOPRAM OXALATE 20 MG TABS 12/10 escitalopram oxalate 62716517939 Norberto Miller Jr, MD TYRVAYA 0.03 MG/ACT SOLN 12/10 varenicline 68171206122 Norberto Miller Jr, MD YUVAFEM 10 MCG TABS 12/10 estradiol 92147784564 Norberto Miller Jr, MD CYCLOBENZAPRINE HCL 5 MG TABS Take 1/2-1 tablet by mouth every night at bedtime as directed start with 1/2 tab cyclobenzaprine 15772467366 Norberto Miller Jr, MD ESCITALOPRAM OXALATE 10 MG TABS 12/23 escitalopram oxalate 21387879052 Norberto Miller Jr, MD DULOXETINE HCL 30 MG CPEP 1 every morning 12/23 duloxetine 49520875511 Norberto Miller Jr, MD BUSPIRONE HCL 5 MG TABS 1 twice a day 12/23 buspirone 05035408863 Norberto Miller Jr, MD MELATONIN 10 MG TABS 1 by mouth every night 12/10 melatonin-lemon balm leaf extr 39820930516 Norberto Miller Jr, MD TRAZODONE HCL 50 MG TABS Prescribed by Family 12/23 TRAZODONE HCL Norberto Miller Jr, MD BUSPIRONE HCL 15 MG TABS 12/10 buspirone 24619070890 Norberto Miller Jr, MD ESCITALOPRAM OXALATE 10 MG TABS 12/10 escitalopram oxalate 97365581353 Norberto Miller Jr, MD LORAZEPAM 0.5 MG TABS 12/10 lorazepam 35951025811 Norberto Miller Jr, MD TRIAMCINOLONE ACETONIDE 0.1 % CREA 12/10 triamcinolone acetonide 94046386267 Norberto Miller Jr, MD SULFAMETHOXAZOLE-T RIMETHOPRIM 800-160 MG TABS 12/10 sulfamethoxazole- trimethoprim 40206355979 Norberto Miller Jr, MD PROPRANOLOL HCL 20 MG TABS 08/10 propranolol 72306576344 Norberto Miller Jr, MD LIOTHYRONINE SODIUM 5 MCG TABS 12/10 liothyronine 33595551260 Norberto Miller Jr, MD POLYMYXIN B-TRIMETHOPRIM 59262-7.1 UNIT/ML-% SOLN 12/10 polymyxin b sulf-trimethoprim 75468026120 Norberto Miller Jr, MD DIPHENOXYLATE-ATRO PINE 2.5-0.025 MG TABS 12/10 diphenoxylate-atr opine 81631196111 Norberto Miller Jr, MD LIDOCAINE VISCOUS HCL 2 % SOLN 12/10 lidocaine hcl 24287586849 Norberto Miller Jr, MD TRETINOIN 0.025 % CREA 12/10 tretinoin 58514999689 Norberto Miller Jr, MD SUMATRIPTAN SUCCINATE 25 MG TABS 12/10 sumatriptan succinate 73685348198 Norberto Miller Jr, MD VALACYCLOVIR HCL 1 GM TABS 12/10 valacyclovir 11689157419 Norberto Miller Jr, MD ESCITALOPRAM OXALATE 10 MG TABS 12/23 escitalopram oxalate 44110754175 Belle Jimenez PA-C MELATONIN 10 MG TABS 1 orally QHS 12/23 MELATONIN 55457833076 Norberto Miller Jr, MD CLOBETASOL PROPIONATE 0.05 % CREA Prescribed by Family SALAZAR 09/20 CLOBETASOL PROPIONATE 86513517781 Norberto Miller Jr, MD BETAMETHASONE VALERATE 0.1 % LOTN Prescribed by Family SALAZAR 09/20 BETAMETHASONE VALERATE 38354891198 Norberto Miller Jr, MD CEFUROXIME AXETIL 500 MG TABS Prescribed by Family SALAZAR 09/20 CEFUROXIME AXETIL 35830515859 Norberto Miller Jr, MD ARMOUR THYROID 30 MG TABS Prescribed by Family SALAZAR 09/20 THYROID 66860577890 Norberto Miller Jr, MD SERTRALINE HCL 100 MG TABS Prescribed by Family SALAZAR 09/20 SERTRALINE HCL 48682432964 Norberto Miller Jr, MD WELLBUTRIN XL 150 MG [id number] Prescribed by Family SALAZAR 09/20 BUPROPION HCL 27373117046 Norberto Miller Jr, MD DULOXETINE HCL 30 MG CPEP 1 QAM 12/23 DULOXETINE HCL 93806436845 Norberto Miller Jr, MD BUSPIRONE HCL 5 MG TABS 1 BID 12/23 BUSPIRONE HCL 31901661946 Norberto Miller Jr, MD GABAPENTIN 300 MG CAPS Prescribed by Family SALAZAR GABAPENTIN 24680726870 Norberto Miller Jr, MD CEFUROXIME AXETIL 500 MG TABS Prescribed by Family SALAZAR 08/24 CEFUROXIME AXETIL 27828740539 Zuleyma Cameron ARMOUR THYROID 30 MG TABS Prescribed by Family SALAZAR 09/20 THYROID 22633955200 Zuleyma Cameron GABAPENTIN 300 MG CAPS Prescribed by Family SALAZAR 08/24 GABAPENTIN 64771172681 Zuleyma Cameron SERTRALINE HCL 100 MG TABS Prescribed by Family SALAZAR 09/20 SERTRALINE HCL 53456647891 Zuleyma Cameron WELLBUTRIN XL 150 MG [id number] Prescribed by Family SALAZAR 09/20 BUPROPION HCL 47109605209 Zuleyma Cameron TRAZODONE HCL 50 MG TABS Prescribed by Family SALAZAR 12/23 TRAZODONE HCL 25379410214 Zuleyma Cameron BETAMETHASONE VALERATE 0.1 % LOTN Prescribed by Family SALAZAR 08/24 BETAMETHASONE VALERATE 18647709951 Zuleyma Ly CLOBETASOL PROPIONATE 0.05 % CREA Prescribed by Family SALAZAR 08/24 CLOBETASOL PROPIONATE 00856813520 Zuleyma Cameron Medications Administered No information available. [...] Procedures Code Procedure Name Date Entry Date 91104/41462/32902&53 Occipital Nerve Blo ck and Trigger Point Injections CPT-54320 Trigger point inj (3+ musc) CPT-J1100 Dexamethasone -- 10 mg 04/26 ORDERS Follow up [facility] telemedicine 2 ORDERS Dental Device Referral 12/10 ORDERS Sleep Hygiene Tips Handout 2 ORDERS Insomnia Handout ORDERS Patient Instructions ORDERS Patient Instructions ORDERS Patient Instructions SCT-[id number] Other Referral ORDERS Instructions for Staff 09/02 ORDERS Follow up Sleep [facility] telemedicine ORDERS Patient Instructions CPT-84310 Trigger point inj (3+ musc) CPT-J1100 Dexamethasone -- 10 mg 08/10 [id number] Other Radiology 03282/13937/17081&53 Occipital Nerve Blo ck and Trigger Point Injections ORDERS Follow up Extended telemedicine 1 ORDERS Patient Instructions SCT-[id number] Other Referral [facility]-[id number] Psychiatry Referral ORDERS Pain Clinic ORDERS Insomnia Handout ORDERS Sleep Hygiene Tips Handout 2 ORDERS Patient Instructions CPT-84106 PSG, 4+ parameters w / tech - 6yrs or older (47651) ORDERS Vitamin B12 ORDERS Vitamin D 25 Hydroxy ORDERS Patient Instructions SCT-[id number] Other Referral SCT-[id number] Psychology Referral ORDERS Instructions for Staff 11/28 ORDERS Lyme Total Ab w/Refl ex (reflex to Western Blot) ORDERS TSH ORDERS 2 weeks Actigraphy W atch w/ Sleep Journals (Call Sleep Lab) ORDERS Ferritin Serum ORDERS Overnight PSG - Sleep Study Overnight 07/17/19 ORDERS Telemedicine Follow up 11/08 ORDERS Ferritin Serum [facility]-[id number] Documentation of current medicatio ns ORDERS Other Handout ORDERS Patient Instructions ORDERS Patient Instructions ORDERS Instructions for Staff 11/08 ORDERS Telemedicine Follow up 09/20 CPT-88017 PSG, 4+ parameters w / tech - 6yrs or older (43186) ORDERS Sleep Study - [facility] 2 [facility]CT-[id number] Documentation of current medicatio ns ORDERS T4 SCT-[id number] Other Referral ORDERS Lyme Total Ab w/Refl [...] TSH ORDERS Vitamin B12 ORDERS T3 Free CPT-77142 Nerve Conduction 7-8 studies CPT-17289 EMG with NCS (5+ muscles) - 1 limb 11/10 SCT-[id number] Documentation of current medicatio ns ORDERS Ferritin Serum ORDERS Patient Instructions ORDERS Other Test ORDERS Follow up ORDERS Vitamin B12 CPT-14037 Neuropsych assmnt w/ prov 4 hr CPT-7993461 Neuropsych assmnt w/ tech 3 hr ORDERS Follow up ORDERS Patient Instructions SCT-[id number] Documentation of current medicatio ns ORDERS Follow up ORDERS Patient Instructions SCT-[id number] Other Test CPT-26245 PSG, 4+ parameters w / tech - 6yrs or older (70995) CPT-97740 MRI Brain W/O SCT-[id number] Documentation of current medicatio ns SCT-641397732 Other Test SCT-[id number] Documentation of current medicatio ns ORDERS Ferritin Serum SCT-[id number] Other Referral ORDERS Follow up SCT-026058391 Other Test SCT-516012899 Other Referral SCT-[id number] Documentation of current medicatio ns Vital Signs [...]
--- OUTSIDE RECORDS SUMMARY | 2024-07-21 00:26 | XMS_ITS | Clinical Summary ---
Author Organization [facility] Address [address] [place] [address] Care Team Providers Care Gauntlet Pairer Name Role Phone Needs Pcp, Assignment Primary Care Provider Source Comments You are receiving this document as you are listed as the primary care provider,follow-up provider, or the patient has been referred to you for consultation.This is in compliance with the Medicare and[facility] EHR Incentive Program,which states Providers who transition their patient to another setting of careor provider of care or refers their patient to another provider of care shouldprovide summary care record for each transition of care or referral. [facility] Allergies Active Allergy Reactions Criticality Noted Date [...] (OCEAN) 0.65 % nasal solution Place 1 [place] into both nostrils every 2 hours as needed for Congestion. Active bacitracin-polym yxin b (POLYSPORIN) 500-36524 UNIT/GM ointmentIndicati ons:dry nose Apply topically two [...] (06/14/2019): Added automatically from request for surgery [id number] Sarcoidosis, lung 06/01/2019 Recurrent major depressive disorder [...] (145 lb 12.8 oz) 07/16/2019 9:00 PM ELECTROPHYSIOLOGY TECHNICIAN Height 172.7 cm (5' 8) 07/15/2019 9:30 PM ELECTROPHYSIOLOGY TECHNICIAN Body Mass Index 22.17 07/15/2019 9:30 PM ELECTROPHYSIOLOGY TECHNICIAN Plan of Treatment Health Maintenance Due Date [...] this topic Medical Devices Implanted Type Area Fender Repairer Device Identifier Shelf Expiration Date Model / Serial / Lot Chip Jesusita Faria 30cc - [id number] Implanted:Qty: 1 on 07/07/2019 by Tobias Martin MD at [facility] DEVICE Right: LEG [employer] - [employer] 06/30/2023 [id number] / [id number] / [id number] Chip Canc Giana 30cc - [id number] Implanted:Qty: 1 on 07/07/2019 by Tobias Martin MD at [facility] DEVICE Right: LEG [employer] - [employer] 06/30/2023 [id number] / [id number] / [id number] Procedures Procedure Name Priority Date/Time [...] Negative (Non Reactive) 08/25/2018 4:34 PM CDT [facility] Comment:Antibodies to HCV no t detected. Does not exclude the possiblity of exposure to HCV. Blood Venipuncture / Unknown 08/25/2018 11:24 AM CDT 08/25/2018 11:24 AM CDT us Carin Rainey MD LAB_1 Final Resul t [facility] [address] [place], [place] [address] * MM Mammogram Screening Bilat W CAD [...] Most Recently Relevant [place] [address] MEDICARE [facility] MEDICARE SUPPLEMENT MEDICARE BCBS MEDICARE SUPPLEMENT [place] [id number] MEDICARE BCBS MEDICARE SUPPLEMENT Advance Directives Documents on File Type Date Recorded Patient Aerial Erector Expl anation HEALTHCARE DIRECTIVE 07/10/2019 ADVANCE D DIRECTIVE 07/10/2019 * Full Code (Latest Code Status on File) Date Activated Date Inactivated Comments 07/15/2019 9:18 PM 07/20/2019 4:20 PM * Full Code Date Activated Date Inactivated Comments 07/07/2019 4:33 PM 07/10/2019 6:22 PM Care Teams Gauntlet Pairer Relationship Specialty Start Date End Date Needs Pcp, [place], [place] [address] PCP - General 02/28/21
--- OUTSIDE RECORDS SUMMARY | 2024-07-21 00:26 | XMS_ITS | Encounter Summary ---
Author Organization [facility] Address [address] [place] [address] Care Team Providers Care Hooker Inspector Name Role Phone Heladio Martins MD Primary Care Provider Kelsi Glez MD Unavailable [phone] Nivia Bruno MD Primary Care Provider [phone] Encounter Details Date Type Department Care Team ([facility] Contact Info) Description 03/07/2021 [facility] Behavioral Health Intake [address] [place] [id number] Generic, Behavioral Intake, Social History Tobacco Use Types Packs/Day Years Used Date Smoking Tobacco: Never Smokeless Tobacco: Never Alcohol Use Standard Drinks/Week Comments No 0 (1 standard drink = 0.6 oz pur e alcohol) PHQ-2 Answer Date Recorded PHQ-2 Score 6 03/06/2021 Comments No Sex and Gender Information Value Date Recorded Sex Assigned at Not on file Legal Sex Female 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 She has Medicare and BCBS. Please check ifinsurance will cover another PHP program. Patient was given [employer] phone number. * Telephone Encounter - Jen Serrano - 03/07/2021 7:50 AM CDT ----- Message from KETTY Rollins sent at 03/06/2021 7:37 PM CDT ----- Regarding: Schedule for PHP on Friday Scheduling Request Patient Name: Juliette Brown Location of programming: [facility] Start Date: 03/12 Group: [id number] 9am to 3pm Attending Provider (): Vine Number of visits to be scheduled: 50 Duration of Appointment in minutes: 360 Visit Type: Zoom - [phone] Additional notes: Patient is currently in PHP at [facility]. She has Medicare and BCBS. Please check ifinsurance will cover another PHP program. Patient was given [employer] phone number. documented in this encounter Plan of Treatment Not on file documented as of this encounter Visit Diagnoses Not on filedocumented in this encounter Additional Health Concerns Assessment Noted Time PHQ-9 Depression Total Score: 21 021 12:28 PM CDT documented as of this encounter Care Teams Hooker Inspector Relationship Specialty Start Date End Date Heladio aMrtins MD PCP - General Internal Medicine 03/05/16 03/21/21 Nivia Bruno MD [address] [place] [address] PCP - General 03/22/21 Kelsi Handy MD [address] [place] [address] Assigned OBGYN Provider 04/23/20 3 documented as of this encounter
--- OUTSIDE RECORDS SUMMARY | 2024-07-21 00:26 | XMS_ITS | Encounter Summary ---
Author Organization [facility] Address [address], [place] [address] Care Team Providers Care Chief Service Dispatcher Name Role Phone Needs Pcp, Assignment Primary Care Provider Encounter Details Date Type Department Care Team (Late st Contact Info) Description 07/12/2019 Lab Requisition [facility] [address] [facility] [place], [place] [address] Lul Hunter MD [address] [place], [place] [id number] Encounter for surgical aftercare following surgery on [...] BASIC METABOLIC PANEL Routine 07/13/2019 7:00 AM MOLD MAKER PLASTIC MOLDS Encounter for surgical aftercare following surgery on the nervous system COMPLETE BLOOD COUNT-NO DIFF Routine 07/13/2019 7:00 AM MOLD MAKER PLASTIC MOLDS Encounter for surgical aftercare following surgery on the nervous system documented in this encounter Results * (ABNORMAL) Basic Metabolic Panel (07/13/2019 7:00 AM MOLD MAKER PLASTIC MOLDS) Sodium 136 136 - 145 mmol/L 07/13/2019 12:35 PM MOLD MAKER PLASTIC MOLDS [facility] Potassium 4.7 3.5 - 5.1 mmol/L 07/13/2019 12:35 PM MOLD MAKER PLASTIC MOLDS [facility] Chloride 100 98 - 109 mmol/L 07/13/2019 12:35 PM MOLD MAKER PLASTIC MOLDS [facility] CO2 27 20 - 29 mmol/L 07/13/2019 12:35 PM MOLD MAKER PLASTIC MOLDS [facility] Anion Gap 9 7 - 16 mmol/L 07/13/2019 12:35 PM MOLD MAKER PLASTIC MOLDS [facility] Calcium 9.2 8.4 - 10.4 mg/dL 07/13/2019 12:35 PM MOLD MAKER PLASTIC MOLDS [facility] BUN 18 7 - 26 mg/dL 07/13/2019 12:35 PM MOLD MAKER PLASTIC MOLDS [facility] Creatinine 0.76 0.55 - 1.02 mg/dL 07/13/2019 12:35 PM MOLD MAKER PLASTIC MOLDS [facility] GFR, Estimated >60 >60 mL/min/1.7 3m2 07/13/2019 12:35 PM MOLD MAKER PLASTIC MOLDS [facility] GFR, Est If >60 >60 mL/min/1.7 3m2 07/13/2019 12:35 PM MOLD MAKER PLASTIC MOLDS [facility] Glucose 105(H) 70 - 100 mg/dL 07/13/2019 12:35 PM MOLD MAKER PLASTIC MOLDS [facility] Comment:The given reference range is for the fasting state. Non-fasting reference range for glucose is 70 - 180 mg/dL. Hours Fasting Unknown 07/13/2019 12:35 PM MOLD MAKER PLASTIC MOLDS [facility] Blood Venipuncture / Unknown 07/13/2019 7:00 AM MOLD MAKER PLASTIC MOLDS 07/13/2019 10:40 AM MOLD MAKER PLASTIC MOLDS us Lul Hunter MD LAB_1 Final Result [facility] [address] * (ABNORMAL) Complete Blood Count-No Diff (07/13/2019 7:00 AM MOLD MAKER PLASTIC MOLDS) WBC 4.7 3.5 - 10.5 x10(9)/L 07/13/2019 11:17 AM MOLD MAKER PLASTIC MOLDS [facility] RBC 3.19(L) 3.90 - 5.03 x10(12)/L 07/13/2019 11:17 AM MOLD MAKER PLASTIC MOLDS [facility] Hemoglobin 10.1(L) 12.0 - 15.5 g/dL 07/13/2019 11:17 AM MOLD MAKER PLASTIC MOLDS [facility] HCT 31.2(L) 34.9 - 44.5 % 07/13/2019 11:17 AM MOLD MAKER PLASTIC MOLDS [facility] MCV 97.8 80.0 - 100.0 fL 07/13/2019 11:17 AM MOLD MAKER PLASTIC MOLDS [facility] MCH 31.7 27.6 - 33.3 pg 07/13/2019 11:17 AM MOLD MAKER PLASTIC MOLDS [facility] MCHC 32.4 31.5 - 35.2 g/dL 07/13/2019 11:17 AM MOLD MAKER PLASTIC MOLDS [facility] RDW 11.7(L) 11.9 - 15.5 % 07/13/2019 11:17 AM MOLD MAKER PLASTIC MOLDS [facility] Platelets 221 150 - 450 x10(9)/L 07/13/2019 11:17 AM MOLD MAKER PLASTIC MOLDS [facility] Automated NRBC 0 <=0 /100 WBC 07/13/2019 11:17 AM MOLD MAKER PLASTIC MOLDS [facility] Blood Venipuncture / Unknown 07/13/2019 7:00 AM MOLD MAKER PLASTIC MOLDS 07/13/2019 10:44 AM MOLD MAKER PLASTIC MOLDS us Lul Hunter MD LAB_1 Final Result Performing Organization Address City/State/[facility] Co de Phone Number [facility] [address] [place] [address], [facility] documented in this encounter Visit Diagnoses Diagnosis Encounter for surgical aftercare following surgery on the nervous system documented in this encounter Care Teams Chief Service Dispatcher Relationship Specialty Start Date [place] [address] PCP - General 02/28/21 documented as of this encounter
--- OUTSIDE RECORDS SUMMARY | 2024-07-21 00:26 | XMS_ITS | Encounter Summary ---
Author Organization [facility] Address [address] [address] Care Team Providers Care Pet Groomer Name Role Phone Needs Pcp, Assignment Primary Care Provider Reason for Visit * Auth/Cert Specialty Diagnoses / Procedures Referred By Contac t Referred To Contact Diagnoses Diarrhea of presumed infectious origin Fibromyalgia Diarrhea of presumed infectious origin Fibromyalgia Diarrhea of presumed infectious origin Fibromyalgia Referral ID Status Reason Start Date Expiration Date Visits Re quested Visits Authorized [id number] 1 1 Encounter Details Date Type Department Care Team (Latest Contact Info) Description 07/15/2019 Lab Requisition [facility] [address] [facility] [place], [place] [address] Lul Hunter MD [address] [place], [place] [phone] Enterocolitis due to Clostridium difficile, not specified [...] C.DIFFICILE TOXIN,MOLECULAR DETECTION Routine 07/15/2019 10:00 PM RETORT LOADER Enterocolitis due to Clostridium difficile, not specified as recurrent documented in this encounter Results * (ABNORMAL) C.Difficile Toxin,Molecular Detection, (07/15/2019 10:00 PM RETORT LOADER) C.difficile Detected(A ) Not Detected 07/15/2019 11:30 PM RETORT LOADER [facility] Stool Non-blood Collection / Unknown 07/15/2019 10:00 PM RETORT LOADER 07/15/2019 10:24 PM RETORT LOADER Narrative [facility] - 07/15/2019 11:30 PM RETORT LOADER Methodology: Qualitative real-time PCR assay to detect the Clostridium difficile toxin B gene. us Lul Hunter MD LAB_1 Final Result [facility] [address] documented in this encounter Visit Diagnoses Diagnosis Enterocolitis due to Clostridium difficile, not specified as recurrent documented in this encounter Care Teams Pet Groomer Relationship Specialty Start Date End Date Needs Pcp, [place] [address] PCP - General 02/28/21 documented as of this encounter
--- OUTSIDE RECORDS SUMMARY | 2024-07-21 00:26 | XMS_ITS ---
Author Organization [facility] Care Team Providers Care Pipe Covering Molder Name Role Phone Rosmery Simpson Unavailable Unavailable Kimberly Gutierrez Unavailable Unavailable Allergies and adverse reactions Code CodeSystem Substance Reaction Severity StartDate Concern Status 59636 RXNORM Tramadol Unknown Unknown active 19627 RXNORM Gold Sodium Thiomalate Unknown Unknown a ctive Care Team Name Role Address Phone Organization Dates Rosmery Simpson PCP [address] [place], [place], [facility], [place] States (Office): : [facility] 06/26/2017 - 07/11/2017 Kimberly Gutierrez Attending Physician [address] [place], [place], [facility], [facility] (Office): : [facility] 06/26/2017 - 07/11/2017 Immunizations Immunization Status Vaccine [...] Concern Status 1 ACUTE POSTHEMORRHAGIC ANEMIA [address] active 2 ANXIETY DISORDER, UNSPECIFIED [address] active 3 COMPLICATION OF VEIN FOLLOWING A PROCEDURE, NOT ELSEWHERE CLASSIFIED, SUBSEQUENT ENCOUNTER 018 06/30/[address] completed 4 CONSTIPATION, UNSPECIFIED [address] active 5 FIBROMYALGIA [address] active 6 HERPESVIRAL VULVOVAGINITIS [address] active 7 HYPOTENSION, UNSPECIFIED [address] active 8 INSOMNIA, UNSPECIFIED [address] active 9 MAJOR DEPRESSIVE DISORDER, RECURRENT SEVERE WITHOUT PSYCHOTIC FEATURES [address] active 10 MUSCLE WEAKNESS (GENERALIZED) [address] active 11 NASAL CONGESTION [address] active 12 NUTRITIONAL DEFICIENCY, UNSPECIFIED [address] active 13 OTHER ABNORMALITIES OF GAIT AND MOBILITY [address] active 14 OTHER CHRONIC PAIN [address] active 15 OTHER MALAISE [address] active 16 PERIPROSTHETIC FRACTURE AROUND INTERNAL PROSTHETIC LEFT HIP JOINT, SUBSEQUENT ENCOUNTER [address] active 17 RHEUMATOID ARTHRITIS, UNSPECIFIED [address] active Reason for Referral No Reasons for Referral Entered Social History Social History Observation Description Start Date End Date Code Code System Current Smoking Status Tobacco smoking consumption unknown 761709634 SNOMED CT Sex Assigned At Female 1960 35422-2 [facility] Vital Signs Code Code System Vitals Name Values and Units Timing Information 9279-1 [facility] Respiratory Rate Value=18.0 Units=/m in 07/11/2017 8462-4 [facility] Blood Pressure-Diastolic Value=64 Un its=mmHg 07/11/2017 8480-6 [facility] Blood Pressure-Systolic Value=97 Uni ts=mmHg 07/11/2017 8310-5 [facility] Body Temperature Value=98.1 Units= F 07/11/2017 8867-4 [facility] Heart rate Value=72.0 Units=/min 06/2017 18336-7 [facility] O2 % BldC Oximetry Value=98.0 Units= % 07/11/2017 06305-2 [facility] Pain Level Value=6.0 07/11/2017 32298-6 [facility] Weight Dgkiu=053.2 Units=Lbs 05/2017 8302-2 [facility] Height Value=69.0 Units=Inches 06/27/2017
--- OUTSIDE RECORDS SUMMARY | 2024-07-21 00:26 | XMS_ITS | Encounter Summary ---
Author Organization [facility] Address [address] [place] [address] Care Team Providers Care Lace Sewer Name Role Phone Kelsi Handy MD Unavailable [phone] Nivia Bruno MD Primary Care Provider [phone] Encounter Details Date Type Department Care Team ([facility] Contact Info) Description 09/25/2021 Telephone [facility] Behavioral Health Intake [address] [place] [phone] Generic, Behavioral Intake, Social History Tobacco Use Types Packs/Day Years Used Date Smoking Tobacco: Never Smokeless Tobacco: Never Alcohol Use Standard Drinks/Week Comments No 0 (1 standard drink = 0.6 oz pur e alcohol) PHQ-2 Answer Date Recorded PHQ-2 Score 2 06/13/2021 Comments No Sex and Gender Information Value Date Recorded Sex Assigned at Not on file Legal Sex Female 3:16 AM SCRIPT EDITOR Gender Identity Not on file Sexual Orientation Not on file documented as of this encounter Miscellaneous Notes * Telephone Encounter - Rafael Cota - 09/25/2021 12:00 PM CDT ----- Message from SHANNON Warner sent at 09/25/2021 11:03 AM CDT ----- Regarding: add appointment Scheduling Request Patient Name: ?? Location of programming: [facility] Start Date: 09/27/21 Group (BHxxxxx on #days of the week# at #start time to end time#): 55+ clinic 1 Provider (name of MD):kerry Number of visits to be scheduled: 1 Duration of Appointment in minutes: 120 mins Visit Type (Amwell - 8492 / Zoom - 2657 / In-person or Treatment - 870) :zoom 2657 Additional notes: documented in this encounter Plan of Treatment Not on file documented as of this encounter Visit Diagnoses Not on filedocumented in this encounter Additional Health Concerns Assessment Noted Time PHQ-9 Depression Total Score: 7 06/14/19 22 10:59 AM SCRIPT EDITOR documented as of this encounter Care Teams Lace Sewer Relationship Specialty Start Date End Date Nivia Bruno MD [address] [place] [address] PCP - General 03/22/21 Kelsi Handy MD [address] [place] [address] Assigned OBGYN Provider 04/23/20 3 documented as of this encounter
--- OUTSIDE RECORDS SUMMARY | 2024-07-21 00:26 | XMS_ITS ---
Author Organization [facility] Care Team Providers Care Layer Up Name Role Phone ^\\, ^\\ Unavailable Unavailable Orquidea Aleman Unavailable Unavailable Tobias Martin Unavailable Unavailable Lul Hunter Unavailable Unavailable Allergies and adverse reactions Code CodeSystem Substance Reaction Severity StartDate Concern Status Gadolinium Unknown 07/10/2019 active CAT HAIR EXTRACT Unknown 07/10/2019 acti ve 1227 RXNORM Auranofin Unknown 07/10/2019 active Care Team Name Role Address Phone Organization Dates Lul Hunter PCP [facility] [address], [place], [address], [place] (Office): [facility] 07/10/2019 - 07/16/2019 ^\\ ^\\ Attending Physician [facility] 07/10/2019 - 07/16/2019 Orquidea Aleman Attending Physician [facility] [place], [address], [place] (Office): : (Pager): [facility] 07/10/2019 - 07/16/2019 Tobias Martin Attending Physician [address], [place], [address], [place] (Office): : [facility] 07/10/2019 - 07/16/2019 Immunizations Immunization Status Vaccine Details Vaccine Code CodeSystem Date Notes Pneumovax Dose 1 completed pneumococcal polysaccharide vaccine, 23 valent 33 CVX created date: 07/13/2019 administere d date: 03/25/2007 TB 2 Step Mantoux Skin Test completed tuberculin skin test; unspecified formulation lotNumber: [id number] expiry: 08/01/2021 Mfg: YouFetch Given 0.1 ml Right Forearm intradermally Step [...] CodeSystem Concern Status 1 ANXIETY DISORDER, UNSPECIFIED 358994318 SNOMED CT active 2 DECREASED WHITE BLOOD CELL COUNT, UNSPECIFIED [address] active 3 DIVERTICULITIS OF LARGE INTESTINE WITHOUT PERFORATION OR ABSCESS WITHOUT BLEEDING [address] active 4 FIBROMYALGIA [address] active 5 HYPERLIPIDEMIA, UNSPECIFIED [address] active 6 HYPOTHYROIDISM, UNSPECIFIED [address] active 7 JUVENILE RHEUMATOID POLYARTHRITIS (SERONEGATIVE) [address] active 8 LEUKOPLAKIA OF VULVA [address] active 9 MAJOR DEPRESSIVE DISORDER, RECURRENT, UNSPECIFIED [address] active 10 MIGRAINE WITHOUT AURA, NOT INTRACTABLE, WITHOUT STATUS MIGRAINOSUS [address] active 11 OTHER INTERVERTEBRAL DISC DEGENERATION, LUMBOSACRAL REGION 15422825 SNOMED CT active 12 OTHER PSYCHOACTIVE SUBSTANCE DEPENDENCE, IN REMISSION 9816946729 SNOMED CT active 13 OTHER SPECIFIED DISORDERS OF BONE DENSITY AND STRUCTURE, UNSPECIFIED SITE 68083103 SNOMED CT active 14 PERIPROSTHETIC FRACTURE AROUND INTERNAL PROSTHETIC RIGHT HIP JOINT, SUBSEQUENT ENCOUNTER 93014968113724539 SNOMED CT active 15 PLANTAR FASCIAL FIBROMATOSIS 31157589 SNOMED CT active 16 SARCOIDOSIS OF LUNG 08615660 SNOMED CT active 17 SENSORINEURAL HEARING LOSS, BILATERAL 819277893 SNOMED CT active 18 UNSPECIFIED FRACTURE OF LOWER END OF RIGHT FEMUR, SUBSEQUENT ENCOUNTER FOR CLOSED FRACTURE WITH NONUNION 396179913 SNOMED CT active 19 UNSPECIFIED TEMPOROMANDIBULAR JOINT DISORDER, UNSPECIFIED SIDE 05370832 SNOMED CT active 20 VITAMIN D DEFICIENCY, UNSPECIFIED 75511110 SNOMED CT active Reason for Referral No Reasons for Referral Entered Social History Social History Observation Description Start Date End Date Code Code System Current Smoking Status Tobacco smoking consumption unknown 240695448 SNOMED CT Sex Assigned At Female 1960 [address]-7 [facility] Vital Signs Code Code System Vitals Name Values and Units Timing Information 59640-8 [facility] Pain Level Value=4.0 07/15/2019 9279-1 [facility] Respiratory Rate Value=16.0 Units=/m in 07/15/2019 8462-4 [facility] Blood Pressure-Diastolic Value=68 Un its=mmHg 07/15/2019 8480-6 [facility] Blood Pressure-Systolic Value=98 Uni ts=mmHg 07/15/2019 8310-5 [facility] Body Temperature Value=96.9 Units= F 07/15/2019 8867-4 [facility] Heart rate Value=91.0 Units=/min 09/2019 81023-1 [facility] O2 % BldC Oximetry Value=98.0 Units= % 07/15/2019 90288-1 [facility] Weight Hzroi=504.9 Units=Lbs 07/2019 8302-2 [facility] Height Value=68.0 Units=Inches 07/10/2019
--- OUTSIDE RECORDS SUMMARY | 2024-07-21 00:26 | XMS_ITS | Encounter Summary ---
Author Organization [facility] Address [address] [place] [address] Care Team Providers Care Massage Coordinator Name Role Phone Heladio Martisn MD Primary Care Provider Kelsi Glez MD Unavailable [phone] Nivia Bruno MD Primary Care Provider [phone] Reason for Visit * Reason Onset Date Comments MH/CD Inpatient 04/15/2016 Encounter Details Date Type Department Care Team ([facility] Contact Info) Description 04/15/2016 Telephone [facility] Behavioral Health Intake [address] [place] [address] Generic, Behavioral Intake, MD MH/CD Inpatient Social History Tobacco Use Types Packs/Day Years Used Date Smoking Tobacco: Never Assessed Comments Unknown Sex and Gender Information Value Date Recorded Sex Assigned at Not on file Legal Sex Female 3:16 AM BINGO ATTENDANT Gender Identity Not on file Sexual Orientation [...] as it is after 10pm); unit notified O ATTENDANT O ATTENDANT documented in this encounter Plan of Treatment Not on file documented as of this encounter Visit Diagnoses Not on filedocumented in this encounter Care Teams Massage Coordinator Relationship Specialty Start Date End Date Heladio Martins MD PCP - General Internal Medicine 03/05/16 03/21/21 Nivia Bruno MD [address] [place] [address] PCP - General 03/22/21 Kelsi Handy MD [address] [place] [address] Assigned OBGYN Provider 04/23/20 3 documented as of this encounter
--- OUTSIDE RECORDS SUMMARY | 2024-07-21 00:26 | XMS_ITS | Encounter Summary ---
Author Organization [facility] Address Formerly [facility] [place] [address] Care Team Providers Care Customs And Border Protection Officer Name Role Phone Heladio Martins MD Primary Care Provider Kelsi Glez MD Unavailable [phone] Nivia Bruno MD Primary Care Provider [phone] Encounter Details Date Type Department Care Team (Latest Contact Info) Description 03/06/2021 [facility] Treatment Plan [facility] [address] [place] [phone] Dav Tierney MD [address] [place] [address] Megan Ruiz, SHANNON Major depressive [...] on file Legal Sex Female 3:16 AM INSTRUCTOR OF EDUCATION Gender Identity Not on file Sexual Orientation [...] documented as of this encounter Care Teams Customs And Border Protection Officer Relationship Specialty Start Date End Date Heladio Martins MD PCP - General Internal Medicine 03/05/16 03/21/21 Nivia Bruno MD [address] [facility] [place] [address] PCP - General 03/22/21 Kelsi Handy MD [address] [place] [address] Assigned OBGYN Provider 04/23/20 3 documented as of this encounter
--- OUTSIDE RECORDS SUMMARY | 2024-07-21 00:26 | XMS_ITS | Clinical Summary ---
Author Organization [facility] Address [address] [place] [address] Care Team Providers Care Senior Technical Program Manager Name Role Phone Nivia Bruno MD Primary Care Provider [phone] Allergies Active Allergy Reactions Criticality Noted Date [...] Take 1 tablet by mouth 07/22/2014 Active [place]-3 1000 MG CAPS 04/02/2016 Active Saline (SODIUM CHLORIDE) 0.65 % SOLN [place] 1 spray in nostril 01/28/2015 Active traZODone [...] on file Legal Sex Female 3:16 AM TELEGRAPH REPEATER INSTALLER Gender Identity Not on file Sexual Orientation [...] BASIC METABOLIC PANEL Routine 06/23/2017 6:00 AM TELEGRAPH REPEATER INSTALLER TSH Routine 06/23/2017 6:00 AM TELEGRAPH REPEATER INSTALLER from Last 3 Months or Most Recently Relevant to Health Maintenance Results * TSH (06/23/2017 6:00 AM TELEGRAPH REPEATER INSTALLER) TSH 2.31 0.30 - 5.00 uIU/mL 06/23/2017 10:31 AM TELEGRAPH REPEATER INSTALLER [facility] Blood specimen (specimen) STRUCTURE OF LEFT UPPER LIMB / Unknown Venipuncture / Unknown 06/23/2017 6:00 AM TELEGRAPH REPEATER INSTALLER 06/23/2017 9:50 AM TELEGRAPH REPEATER INSTALLER Rosmery Simpson MD LAB - BLOOD ORDERABLES Fi nal Result [facility] [address] [place] [address], [facility] [address] [place] [address] * Basic metabolic panel (06/23/2017 6:00 AM TELEGRAPH REPEATER INSTALLER) Sodium 139 136 - 145 mmol/L 06/23/2017 10:13 AM TELEGRAPH REPEATER INSTALLER [facility] Potassium 4.2 3.5 - 5.0 mmol/L 06/23/2017 10:13 AM TELEGRAPH REPEATER INSTALLER [facility] Chloride 103 98 - 107 mmol/L [...] Unknown Venipuncture / Unknown 06/23/2017 6:00 AM [facility] 06/23/2017 9:50 AM [facility] Narrative [facility] - 06/23/2017 10:13 AM [facility] Fasting Glucose reference range is 70-99 mg/dL per [place] Diabetes [employer] (ADA) guidelines. Rosmery Simpson MD LAB - BLOOD ORDERABLES Fi nal Result [facility] [address] [place] [address], [facility] [address] [place] [address] from Last 3 Months or Most Recently Relevant to Health [place] [address] [place]ARE [place] [address] [place] [id number] [place] Advance Directives For more information, please contact: [phone] * Full Code (Latest Code Status on File) Date Activated Date Inactivated Comments 04/16/2016 1:58 AM 04/22/2016 3:55 PM Care Teams Senior Technical Program Manager Relationship Specialty Start Date End Date Nivia Bruno MD PCP - General 03/22/21
--- OUTSIDE RECORDS SUMMARY | 2024-07-21 00:27 | XMS_ITS | Encounter Summary ---
Author Organization [facility] Address [address], [place] [address] Care Team Providers Care Parimutuel Ticket Seller Name Role Phone Needs Pcp, Assignment Primary Care Provider [phone] Encounter Details Date Type Department Care Team (Late st Contact Info) Description 07/16/2019 Lab Requisition [facility] [address] [facility] [place], [place] [address] Lul Hunter MD [address] [place], [place] [phone] Encounter for surgical aftercare following surgery on [...] organs documented in this encounter Care Teams Parimutuel Ticket Seller Relationship Specialty Start Date End Date Needs Pcp, [place], [place] [address] PCP - General 02/28/21 documented as of this encounter
[2024-07-21 01:01] VITALS: BP 135/74; PULSE 97; RESP 18; TEMP 36.4; O2SAT 98
[2024-07-21] MEDS: HYDROmorphone 2 MG TABLET 1 MG PO (01:05)
== END 2024-07-21 01:38 | disposition home or self-care (01) ==
PROVIDERS: Emergency Provider Family Medicine; PCP Family Medicine
DX: S51.011A Laceration without foreign body of right elbow, initial encounter (principal); S20.211A Contusion of right front wall of thorax, initial encounter; S50.01XA Contusion of right elbow, initial encounter; S60.221A Contusion of right hand, initial encounter; W01.0XXA Fall on same level from slipping, tripping and stumbling without subsequent striking against object, initial encounter
CPT/HCPCS: 12001; 71101; 73130; 99282; 99283; 99284; A9270

== ENCOUNTER 2024-07-21 15:35 | Emergency (ER) | payer MEDICARE, BC, SELFPAY ==
--- OUTSIDE RECORDS SUMMARY | 2024-07-21 15:38 | XMS_ITS | Encounter Summary ---
Author Organization [facility] Address [address] [place] [address] Care Team Providers Care Dispensing And Measuring Optician Name Role Phone Kelsi Handy MD Unavailable [phone] Nivia Bruno MD Primary Care Provider [phone] Encounter Details Date Type Department Care Team ([facility] Contact Info) Description 06/13/2021 Telephone [facility] Behavioral Health Intake [address] [place] [phone] Generic, Behavioral Intake, Social History Tobacco Use Types Packs/Day Years Used Date Smoking Tobacco: Never Smokeless Tobacco: Never Alcohol Use Standard Drinks/Week Comments No 0 (1 standard drink = 0.6 oz pur e alcohol) PHQ-2 Answer Date Recorded PHQ-2 Score 2 06/13/2021 Comments No Sex and Gender Information Value Date Recorded Sex Assigned at Not on file Legal Sex Female 3:16 AM RELIEF DOCKING MASTER Gender Identity Not on file Sexual Orientation Not on file documented as of this encounter Miscellaneous Notes * Telephone Encounter - Rafael Cota - 06/29/2021 12:06 PM CST ----- Message from KETTY Lynn sent at 06/29/2021 11:41 AM RELIEF DOCKING MASTER ----- Regarding: new start Clinic 1 on 07/05 Scheduling Request Patient Name: Juliette Brown Location of programmin+ Start Date: June Group: Clinic 1 on at 1:00 to 3:00PM Attending Provider (MD): 12 Number of visits to be scheduled: 12 Duration of Appointment in minutes: 120 min Visit Type: Zoom - 2657 Additional notes: EF DOCKING MASTER * Telephone Encounter - Jen Serrano - 06/13/2021 9:38 AM CST ----- Message from SHANNON Warner sent at 06/13/2021 9:12 AM RELIEF DOCKING MASTER ----- Regarding: add appointment Scheduling Request Patient Name: ?? Location of programming: [facility] 55+ Start Date:06/13/21 Group (BHxxxxx on #days of the week# at #start time to end time#): 55+ B1 M,W,F 1-4pm Provider (name of MD): Niall Number of visits to be scheduled: 1 Duration of Appointment in minutes: 180 mins Visit Type (Amwell - 2702 / Zoom - 2657 / In-person or Treatment - 870) :2657-zoom Additional notes: EF DOCKING MASTER documented in this encounter Plan of Treatment Not on file documented as of this encounter Visit Diagnoses Not on filedocumented in this encounter Additional Health Concerns Assessment Noted Time PHQ-9 Depression Total Score: 7 06/14/19 22 10:59 AM RELIEF DOCKING MASTER documented as of this encounter Care Teams Dispensing And Measuring Optician Relationship Specialty Start Date End Date Nivia Bruno MD [address] [place] [address] PCP - General 03/22/21 Kelsi Handy MD [address] [place] [address] Assigned OBGYN Provider 04/23/20 3 documented as of this encounter
--- OUTSIDE RECORDS SUMMARY | 2024-07-21 15:38 | XMS_ITS ---
Author Organization [facility] Care Team Providers Care Computer Systems Integrator Name Role Phone Alpa Keith Unavailable Unavailable Allergies and adverse reactions Code CodeSystem Substance Reaction Severity StartDate Concern Status 97065 RXNORM traMADol Unknown 04/01/2022 active Opioids- Morphin e Analogues Unknown 04/01/2022 active 67671 RXNORM Gold Sodium Thiomalate Anaphylaxis (code- 93640571, SNOMED CT) Severe 07/28/2019 active GOLD Keratinate Anaphylaxis (code- 91185705, SNOMED CT) Severe 07/28/2019 active Gadolinium Unknown 07/20/2019 active Cat dander Unknown 07/28/2019 active 1227 RXNORM Auranofin Unknown 07/20/2019 active Care Team Name Role Address Phone Organization Dates Alpa Keith Attending Physician [address] [place], [address], [place] (Office): : (Pager): [facility] 04/01/2022 - 04/15/2022 Immunizations Immunization Status Vaccine Details Vaccine Code CodeSystem Date Notes Influenza completed Influenza, high-dose, split virus, quadrivalent, injectable, preservative free 197 CVX created date: 2 administe red date: 2 TB 2 Step Mantoux Skin Test completed tuberculin skin test; unspecified formulation lotNumber: [id number] expiry: 10/10/2024 Mfg: P[employer]ur [employer]i Given 0.1 ml Right Forearm intradermally Step 1 of Multi-step with next step required 98 CVX created date: 2 consent date: 2 administe red date: 2 Educated by Nila Bates on 04/01/2022 TB 2 Step Mantoux Skin Test completed tuberculin skin test; unspecified formulation lotNumber: [id number] expiry: 07/09/2020 Mfg: par Given 0.1 ml [...] End Date Estrace Tablet 0.5 MG active 099422 RXNORM 1 tablet Oral in the morning Routine Give 1 tablet by mouth in the mornin g for . 2021 - Ketoconazole Cream 2 % active 537352 RXNORM n/a n/a Topical as needed PRN Apply to affect ed area topica lly as needed for . once daily 2021 - Miconazole Nitrate Cream 2 % active 237426 RXNORM n/a n/a Topical two times a day Routine Apply to vulva, rectal area topica lly two times a day for candid al skin infect ion 2021 - Liothyronine Sodium Tablet 5 MCG active 013362 RXNORM 1 tablet Oral two times a day Routine Give 1 tablet by mouth two times a day for hypoth yroidi sm 2021 - Betamethasone Dipropionate Cream 0.05 % active 580112 RXNORM n/a n/a Topical in the afternoon Routine Apply to affect ed area topica lly in the aftern oon for lichen sclero reyna 2021 - Zofran ODT Tablet Disintegratin g 4 MG active 333411 RXNORM 4 mg Oral as needed PRN Give 4 mg by mouth every 8 hours as needed for nausea place on tongue 2021 - Tretinoin Cream 0.025 % active 333233 RXNORM n/a n/a Topical at bedtime Routine Apply to affect ed area topica lly at bedtim e for sun-da supriya skin 2021 - Melatonin Tablet 10 MG active 7997979 RXNORM 10 mg Oral at bedtime Routine Give 10 mg by mouth at bedtim e for insomn ia 2021 - Multivitamin Tablet active 1 tablet Oral in the morning Routine Give 1 tablet by mouth in the mornin g for supple ment 2021 - Burnett-3 Fatty Acids Capsule active 2000 mg Oral in the morning Routine Give 2000 mg by mouth in the mornin g for supple ment 2021 - Sodium Chloride Solution 0.65 % active 379442 RXNORM 1 spray Nasal as needed PRN 1 spray in both nostri ls every 2 hours as needed for hayfev er 2021 - Zoloft Tablet 50 MG active 168979 RXNORM 50 mg Oral in the morning Routine Give 50 mg by mouth in the mornin g for KATY 2021 - Prometrium Capsule 100 MG active 972051 RXNORM 100 mg Oral at bedtime Routine Give 100 mg by mouth at bedtim e for . 2021 - Albuterol Sulfate HFA Aerosol Solution 108 (90 Base) MCG/ACT active 7119143 RXNORM 2 puff Inhalat ion as needed [...] 2021 - MiraLax Packet 17 GM active 028950 RXNORM 17 gram Oral in the evening Routine Give 17 gram by mouth in the evenin g for consti pation AND Give 17 gram by mouth as needed for consti pation qd prn 2021 - 701038 RXNORM 17 gram Oral as needed PRN Give 17 gram by mouth in the evenin g for consti pation AND Give 17 gram by mouth as needed for consti pation qd prn 2021 - busPIRone HCl Tablet 10 MG active 329401 RXNORM 10 mg Oral two times a day Routine Give 10 mg by mouth two times a day for depres lillie 2021 - Dilaudid Tablet 2 MG active 084873 RXNORM 1 mg Oral as needed PRN Give 1 mg by mouth as needed for pain tid prn 2021 - traZODone HCl Tablet 50 MG active 862430 RXNORM 1 tablet Oral as needed PRN Give 1 tablet by mouth as needed for insomn ia until 2021 23:59 can have if 1st dose not effect mathieu AND Give 1 tablet by mouth at bedtim e for insomn ia 04/24 946793 RXNORM 1 tablet Oral at bedtime Routine Give 1 tablet by mouth as needed for insomn ia until 2021 23:59 can have if 1st dose not effect mathieu AND Give 1 tablet by mouth at bedtim e for insomn ia 2021 - Senna Plus Tablet 8.6-50 MG active 552558 RXNORM 2 tablet Oral one time a [...] Code CodeSystem Concern Status 1 INSOMNIA, UNSPECIFIED 389904705 SNOMED CT active 2 CHRONIC FATIGUE, UNSPECIFIED 39921983 SNOMED CT active 3 DIFFICULTY IN WALKING, NOT ELSEWHERE CLASSIFIED 607766085 SNOMED CT active [address] active 5 MUSCLE WEAKNESS (GENERALIZED) 21610632 SNOMED CT active 6 ACUTE CANDIDIASIS OF VULVA AND VAGINA 715366154 SNOMED CT active 7 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 OR ABSCESS WITHOUT BLEEDING 16820183 SNOMED CT active [address] active 9 ENCOUNTER FOR SURGICAL AFTERCARE FOLLOWING SURGERY ON THE DIGESTIVE SYSTEM 643870329 SNOMED CT active 10 HYPOTHYROIDISM, UNSPECIFIED 13405419 SNOMED CT active 11 MAJOR DEPRESSIVE DISORDER, RECURRENT, MODERATE 00616997 SNOMED CT active 12 MIGRAINE, UNSPECIFIED, NOT INTRACTABLE, WITHOUT STATUS MIGRAINOSUS 17382803 SNOMED CT active 13 OTHER ABNORMAL GLUCOSE 629177417 SNOMED CT active 14 OTHER INTERVERTEBRAL DISC DEGENERATION, LUMBOSACRAL REGION 47233878 SNOMED CT active 15 OTHER NONSPECIFIC ABNORMAL FINDING OF LUNG FIELD 563988173 SNOMED CT active 16 PERSONAL HISTORY OF (HEALED) TRAUMATIC FRACTURE 192086148 SNOMED CT active 17 SENSORINEURAL HEARING LOSS, BILATERAL 128960984 SNOMED CT active 18 UNSPECIFIED OSTEOARTHRITIS, UNSPECIFIED SITE 449687656 SNOMED CT active 19 UNSPECIFIED TEMPOROMANDIBULAR JOINT DISORDER, UNSPECIFIED SIDE 19445264 SNOMED CT active 20 URGENCY OF URINATION 15486874 SNOMED CT active 21 URINARY TRACT INFECTION, SITE NOT SPECIFIED 57936198 SNOMED CT active 22 ANEMIA, UNSPECIFIED 04/01/[address] completed 23 ANXIETY DISORDER, UNSPECIFIED 072881330 SNOMED CT active 24 CHRONIC FATIGUE, UNSPECIFIED 04/01/[address] completed 25 DIFFICULTY IN WALKING, NOT ELSEWHERE CLASSIFIED 04/01/[address] completed 26 ENTEROCOLITIS DUE TO CLOSTRIDIUM DIFFICILE, NOT SPECIFIED RECURRENT 04/01/[address] completed 27 FIBROMYALGIA 04/01/[address] completed 28 HYPERLIPIDEMIA, UNSPECIFIED 04/01/[address] completed 29 MAJOR DEPRESSIVE DISORDER, RECURRENT, UNSPECIFIED 04/01/[address] completed 30 MUSCLE WEAKNESS (GENERALIZED) 04/01/[address] completed 31 OTHER SPECIFIED DISORDERS OF BONE DENSITY AND STRUCTURE, UNSPECIFIED SITE 04/01/[address] completed 32 RESISTANCE TO MULTIPLE ANTIBIOTICS 04/01/[address] completed 33 SARCOIDOSIS OF LUNG 04/01/[address] completed 34 UNSPECIFIED FRACTURE OF LOWER END OF RIGHT FEMUR, SUBSEQUENT ENCOUNTER FOR CLOSED FRACTURE WITH NONUNION 04/01/[address] completed Reason for Referral No Reasons for Referral Entered Social History Social History Observation Description Start Date End Date Code Code System Current Smoking Status Tobacco smoking consumption unknown 890790741 SNOMED CT Sex Assigned At Female 1960 52709-9 [facility] Vital Signs Code Code System Vitals Name Values and Units Timing Information 8462-4 [facility] Blood Pressure-Diastolic Value=71 Un its=mmHg 04/15/2022 8480-6 [facility] Blood Pressure-Systolic Ohrdi=885 Un its=mmHg 04/15/2022 8310-5 [facility] Body Temperature Value=97.2 Units= F 04/15/2022 8867-4 [facility] Heart rate Value=99.0 Units=/min 09/2021 90543-6 [facility] O2 % BldC Oximetry Value=98.0 Units= % 04/15/2022 9279-1 [facility] Respiratory Rate Value=16.0 Units=/m in 04/14/2022 88467-9 [facility] Pain Level Value=0.0 04/14/2022 24704-8 [facility] Weight Fqzae=600.3 Units=Lbs 08/2021 8302-2 [facility] Height Value=68.0 Units=Inches 07/21/2019
--- OUTSIDE RECORDS SUMMARY | 2024-07-21 15:39 | XMS_ITS | Encounter Summary ---
Author Organization [place] Address [address] [place] [address] Care Team Providers Care Coater Smoking Pipe Name Role Phone Heladio Martins MD Primary Care Provider Kelsi Glez MD Unavailable [phone] Nivia Bruno MD Primary Care Provider [phone] Reason for Visit * Reason Onset Date Comments MH/CD Inpatient 04/15/2016 Encounter Details Date Type Department Care Team ([facility] Contact Info) Description 04/15/2016 Telephone [facility] Behavioral Health Intake [address] [place] [address] Generic, Behavioral Intake, MD MH/CD Inpatient Social History Tobacco Use Types Packs/Day Years Used Date Smoking Tobacco: Never Assessed Comments Unknown Sex and Gender Information Value Date Recorded Sex Assigned at Not on file Legal Sex Female 3:16 AM SECTION HAND HELPER Gender Identity Not on file Sexual Orientation [...] as it is after 10pm); unit notified ION HAND HELPER ION HAND HELPER documented in this encounter Plan of Treatment Not on file documented as of this encounter Visit Diagnoses Not on filedocumented in this encounter Care Teams Coater Smoking Pipe Relationship Specialty Start Date End Date Heladio Martins MD PCP - General Internal Medicine 03/05/16 03/21/21 Nivia Bruno MD [address] [place] [address] PCP - General 03/22/21 Kelsi Handy MD [address] [place] [address] Assigned OBGYN Provider 04/23/20 3 documented as of this encounter
--- OUTSIDE RECORDS SUMMARY | 2024-07-21 15:39 | XMS_ITS | Clinical Summary ---
Author Organization [facility] Address [address] [place] [address] Care Team Providers Care Spray Blender Name Role Phone Needs Pcp, Assignment Primary Care Provider Source Comments You are receiving this document as you are listed as the primary care provider,follow-up provider, or the patient has been referred to you for consultation.This is in compliance with the Medicare and[facility] EHR Incentive Program,which states Providers who transition their patient to another setting of careor provider of care or refers their patient to another provider of care shouldprovide summary care record for each transition of care or referral. [facility] Allergies Active Allergy Reactions Criticality Noted Date [...] (OCEAN) 0.65 % nasal solution Place 1 [place] into both nostrils every 2 hours as needed for Congestion. Active bacitracin-polym yxin b (POLYSPORIN) 500-56102 UNIT/GM ointmentIndicati ons:dry nose Apply topically two [...] (06/14/2019): Added automatically from request for surgery [id number] Sarcoidosis, lung 06/01/2019 Recurrent major depressive disorder [...] (145 lb 12.8 oz) 07/16/2019 9:00 PM HEALTH CARE CONSULTANT Height 172.7 cm (5' 8) 07/15/2019 9:30 PM HEALTH CARE CONSULTANT Body Mass Index 22.17 07/15/2019 9:30 PM HEALTH CARE CONSULTANT Plan of Treatment Health Maintenance Due Date [...] this topic Medical Devices Implanted Type Area Education Trainer Device Identifier Shelf Expiration Date Model / Serial / Lot Chip Jesusita Faria 30cc - [id number] Implanted:Qty: 1 on 07/07/2019 by Tobias Martin MD at [facility] DEVICE Right: LEG [employer] - [employer] 06/30/2023 [id number] / [id number] / [id number] Chip Canc Giana 30cc - [id number] Implanted:Qty: 1 on 07/07/2019 by Tobias Martin MD at [facility] DEVICE Right: LEG [employer] - [employer] 06/30/2023 [id number] / [id number] / [id number] Procedures Procedure Name Priority Date/Time [...] Negative (Non Reactive) 08/25/2018 4:34 PM CDT [facility] Comment:Antibodies to HCV no t detected. Does not exclude the possiblity of exposure to HCV. Blood Venipuncture / Unknown 08/25/2018 11:24 AM CDT 08/25/2018 11:24 AM CDT us Carin Rainey MD LAB_1 Final Resul t [facility] [address] [place], [place] [address] * MM Mammogram Screening Bilat W CAD [...] Most Recently Relevant to [place] [address] MEDICARE [facility] MEDICARE SUPPLEMENT MEDICARE BCBS MEDICARE SUPPLEMENT [place] [id number] MEDICARE BCBS MEDICARE SUPPLEMENT Advance Directives Documents on File Type Date Recorded Patient Project Design Engineer Expl anation HEALTHCARE DIRECTIVE 07/10/2019 ADVANCE D DIRECTIVE 07/10/2019 * Full Code (Latest Code Status on File) Date Activated Date Inactivated Comments 07/15/2019 9:18 PM 07/20/2019 4:20 PM * Full Code Date Activated Date Inactivated Comments 07/07/2019 4:33 PM 07/10/2019 6:22 PM Care Teams Spray Blender Relationship Specialty Start Date End Date Needs Pcp, [place], [place] [address] PCP - General 02/28/21
--- OUTSIDE RECORDS SUMMARY | 2024-07-21 15:39 | XMS_ITS ---
Author Organization [facility] Care Team Providers Care Roundhouse Supervisor Name Role Phone ^\\, ^\\ Unavailable Unavailable Orquidea Aleman Unavailable Unavailable Tobais Martin Unavailable Unavailable Lul Hunter Unavailable Unavailable Allergies and adverse reactions Code CodeSystem Substance Reaction Severity StartDate Concern Status Gadolinium Unknown 07/10/2019 active CAT HAIR EXTRACT Unknown 07/10/2019 acti ve 1227 RXNORM Auranofin Unknown 07/10/2019 active Care Team Name Role Address Phone Organization Dates Lul Hunter PCP [facility] [facility] [address], [place], [address], [place] States (Office): [facility] 07/10/2019 - 07/16/2019 ^\\ ^\\ Attending Physician [facility] 07/10/2019 - 07/16/2019 Orquidea Aleman Attending Physician [facility] [place], [address], [place] (Office): : (Pager): [facility] 07/10/2019 - 07/16/2019 Tobias Martin Attending Physician [address], [place], [address], [place] (Office): : [facility] 07/10/2019 - 07/16/2019 Immunizations Immunization Status Vaccine Details Vaccine Code CodeSystem Date Notes Pneumovax Dose 1 completed pneumococcal polysaccharide vaccine, 23 valent 33 CVX created date: 07/13/2019 administere d date: 03/25/2007 TB 2 Step Mantoux Skin Test completed tuberculin skin test; unspecified formulation lotNumber: [id number] expiry: 08/01/2021 Mfg: [employer] Given 0.1 ml Right Forearm intradermally Step [...] CodeSystem Concern Status 1 ANXIETY DISORDER, UNSPECIFIED 509859902 SNOMED CT active 2 DECREASED WHITE BLOOD CELL COUNT, UNSPECIFIED [address] active 3 DIVERTICULITIS OF LARGE INTESTINE WITHOUT PERFORATION OR ABSCESS WITHOUT BLEEDING [address] active 4 FIBROMYALGIA [address] active 5 HYPERLIPIDEMIA, UNSPECIFIED [address] active 6 HYPOTHYROIDISM, UNSPECIFIED [address] active 7 JUVENILE RHEUMATOID POLYARTHRITIS (SERONEGATIVE) [address] active 8 LEUKOPLAKIA OF VULVA [address] active 9 MAJOR DEPRESSIVE DISORDER, RECURRENT, UNSPECIFIED [address] active 10 MIGRAINE WITHOUT AURA, NOT INTRACTABLE, WITHOUT STATUS MIGRAINOSUS [address] active 11 OTHER INTERVERTEBRAL DISC DEGENERATION, LUMBOSACRAL REGION 16571651 SNOMED CT active 12 OTHER PSYCHOACTIVE SUBSTANCE DEPENDENCE, IN REMISSION 0408838413 SNOMED CT active 13 OTHER SPECIFIED DISORDERS OF BONE DENSITY AND STRUCTURE, UNSPECIFIED SITE 48379025 SNOMED CT active 14 PERIPROSTHETIC FRACTURE AROUND INTERNAL PROSTHETIC RIGHT HIP JOINT, SUBSEQUENT ENCOUNTER 64026457395351642 SNOMED CT active 15 PLANTAR FASCIAL FIBROMATOSIS 05028661 SNOMED CT active 16 SARCOIDOSIS OF LUNG 04208546 SNOMED CT active 17 SENSORINEURAL HEARING LOSS, BILATERAL 579032376 SNOMED CT active 18 UNSPECIFIED FRACTURE OF LOWER END OF RIGHT FEMUR, SUBSEQUENT ENCOUNTER FOR CLOSED FRACTURE WITH NONUNION 557809302 SNOMED CT active 19 UNSPECIFIED TEMPOROMANDIBULAR JOINT DISORDER, UNSPECIFIED SIDE 98134046 SNOMED CT active 20 VITAMIN D DEFICIENCY, UNSPECIFIED 30956540 SNOMED CT active Reason for Referral No Reasons for Referral Entered Social History Social History Observation Description Start Date End Date Code Code System Current Smoking Status Tobacco smoking consumption unknown 428688111 SNOMED CT Sex Assigned At Female 1960 47902-2 [facility] Vital Signs Code Code System Vitals Name Values and Units Timing Information 58481-2 [facility] Pain Level Value=4.0 07/15/2019 9279-1 [facility] Respiratory Rate Value=16.0 Units=/m in 07/15/2019 8462-4 [facility] Blood Pressure-Diastolic Value=68 Un its=mmHg 07/15/2019 8480-6 [facility] Blood Pressure-Systolic Value=98 Uni ts=mmHg 07/15/2019 8310-5 [facility] Body Temperature Value=96.9 Units= F 07/15/2019 8867-4 [facility] Heart rate Value=91.0 Units=/min 09/2019 67560-9 [facility] O2 % BldC Oximetry Value=98.0 Units= % 07/15/2019 88820-3 [facility] Weight Oguog=835.9 Units=Lbs 07/2019 8302-2 [facility] Height Value=68.0 Units=Inches 07/10/2019
--- OUTSIDE RECORDS SUMMARY | 2024-07-21 15:39 | XMS_ITS ---
Author Organization [facility] Care Team Providers Care Game Designer Name Role Phone Rosmery Simpson Unavailable Unavailable Kimberly Gutierrez Unavailable Unavailable Allergies and adverse reactions Code CodeSystem Substance Reaction Severity StartDate Concern Status 16900 RXNORM Tramadol Unknown Unknown active 57343 RXNORM Gold Sodium Thiomalate Unknown Unknown a ctive Care Team Name Role Address Phone Organization Dates Rosmery Simpson PCP [address] [place] [employer], [place], [facility], [place] (Office): : [facility] 06/26/2017 - 07/11/2017 Kimberly Gutierrez Attending Physician [address] [place] [employer], [place], [facility], [facility] (Office): : [facility] 06/26/2017 - 07/11/2017 Immunizations Immunization Status Vaccine [...] Concern Status 1 ACUTE POSTHEMORRHAGIC ANEMIA [address] active 2 ANXIETY DISORDER, UNSPECIFIED [address] active 3 COMPLICATION OF VEIN FOLLOWING A PROCEDURE, NOT ELSEWHERE CLASSIFIED, SUBSEQUENT ENCOUNTER 018 06/30/[address] completed 4 CONSTIPATION, UNSPECIFIED [address] active 5 FIBROMYALGIA [address] active 6 HERPESVIRAL VULVOVAGINITIS [address] active 7 HYPOTENSION, UNSPECIFIED [address] active 8 INSOMNIA, UNSPECIFIED [address] active 9 MAJOR DEPRESSIVE DISORDER, RECURRENT SEVERE WITHOUT PSYCHOTIC FEATURES [address] active 10 MUSCLE WEAKNESS (GENERALIZED) [address] active 11 NASAL CONGESTION [address] active 12 NUTRITIONAL DEFICIENCY, UNSPECIFIED [address] active 13 OTHER ABNORMALITIES OF GAIT AND MOBILITY [address] active 14 OTHER CHRONIC PAIN [address] active 15 OTHER MALAISE [address] active 16 PERIPROSTHETIC FRACTURE AROUND INTERNAL PROSTHETIC LEFT HIP JOINT, SUBSEQUENT ENCOUNTER [address] active 17 RHEUMATOID ARTHRITIS, UNSPECIFIED [address] active Reason for Referral No Reasons for Referral Entered Social History Social History Observation Description Start Date End Date Code Code System Current Smoking Status Tobacco smoking consumption unknown 001900847 SNOMED CT Sex Assigned At Female 1960 45442-3 [facility] Vital Signs Code Code System Vitals Name Values and Units Timing Information 9279-1 [facility] Respiratory Rate Value=18.0 Units=/m in 07/11/2017 8462-4 [facility] Blood Pressure-Diastolic Value=64 Un its=mmHg 07/11/2017 8480-6 [facility] Blood Pressure-Systolic Value=97 Uni ts=mmHg 07/11/2017 8310-5 [facility] Body Temperature Value=98.1 Units= F 07/11/2017 8867-4 [facility] Heart rate Value=72.0 Units=/min 06/2017 47356-5 [facility] O2 % BldC Oximetry Value=98.0 Units= % 07/11/2017 64877-0 [facility] Pain Level Value=6.0 07/11/2017 75745-0 [facility] Weight Gehkb=399.2 Units=Lbs 05/2017 8302-2 [facility] Height Value=69.0 Units=Inches 06/27/2017
--- OUTSIDE RECORDS SUMMARY | 2024-07-21 15:39 | XMS_ITS | Encounter Summary ---
Author Organization [place] Address Formerly [facility] [place] [address] Care Team Providers Care Equine Science Instructor Name Role Phone Heladio Martins MD Primary Care Provider Kelsi Glez MD Unavailable [phone] Nivia Bruno MD Primary Care Provider [phone] Encounter Details Date Type Department Care Team (Latest Contact Info) Description 03/06/2021 [facility] Treatment Plan [facility] [address] [place] [phone] Dav Tierney MD [address] [place] [address] Megan Ruiz, SHANNON Major depressive [...] on file Legal Sex Female 3:16 AM DOWNSTAIRS MAID Gender Identity Not on file Sexual Orientation [...] documented as of this encounter Care Teams Equine Science Instructor Relationship Specialty Start Date End Date Heladio Martins MD PCP - General Internal Medicine 03/05/16 03/21/21 Nivia Bruno MD [address] [facility] [place] [address] PCP - General 03/22/21 Kelsi Handy MD [address] [place] [address] Assigned OBGYN Provider 04/23/20 3 documented as of this encounter
--- OUTSIDE RECORDS SUMMARY | 2024-07-21 15:39 | XMS_ITS | Encounter Summary ---
Author Organization [facility] Address [address] [place] [address] Care Team Providers Care Vacuum Form Operator Name Role Phone Heladio Martins MD Primary Care Provider Kelsi Glez MD Unavailable [phone] Nivia Bruno MD Primary Care Provider [phone] Encounter Details Date Type Department Care Team ([facility] Contact Info) Description 03/07/2021 [facility] Behavioral Health Intake [address] [place] [id number] Generic, Behavioral Intake, Social History Tobacco Use Types Packs/Day Years Used Date Smoking Tobacco: Never Smokeless Tobacco: Never Alcohol Use Standard Drinks/Week Comments No 0 (1 standard drink = 0.6 oz pur e alcohol) PHQ-2 Answer Date Recorded PHQ-2 Score 6 03/06/2021 Comments No Sex and Gender Information Value Date Recorded Sex Assigned at Not on file Legal Sex Female 3:16 AM HAIR BLENDER Gender Identity Not on file Sexual Orientation [...] 03/06/2021 7:37 PM CDT To: Cheyanne Santana [facility], Quentin Hagan, # Subject: Schedule for PHP on Friday Scheduling Request Patient Name: Juliette Brown Location of programming: [facility] Start Date: 03/12 Group: [id number] 9am to 3pm Attending Provider (): Trent Number of visits to be scheduled: 50 Duration of Appointment in minutes: 360 Visit Type: Zoom - [phone] Additional notes: Patient is currently in PHP at [facility]. She has Medicare and BCBS. Please check ifinsurance will cover another PHP program. Patient was given [facility] [place] phone number. * Telephone Encounter - Jen Serrano - 03/07/2021 7:50 AM CDT ----- Message from KETTY Rollins sent at 03/06/2021 7:37 PM CDT ----- Regarding: Schedule for PHP on Friday Scheduling Request Patient Name: Juliette Brown Location of programming: [facility] Start Date: 03/12 Group: [id number] 9am to 3pm Attending Provider (): Vine Number of visits to be scheduled: 50 Duration of Appointment in minutes: 360 Visit Type: Zoom - [phone] Additional notes: Patient is currently in PHP at [facility]. She has Medicare and BCBS. Please check ifinsurance will cover another PHP program. Patient was given [facility] [facility] [place] phone number. documented in this encounter Plan of Treatment Not on file documented as of this encounter Visit Diagnoses Not on filedocumented in this encounter Additional Health Concerns Assessment Noted Time PHQ-9 Depression Total Score: 21 021 12:28 PM CDT documented as of this encounter Care Teams Vacuum Form Operator Relationship Specialty Start Date End Date Heladio Martins MD PCP - General Internal Medicine 03/05/16 03/21/21 Nivia Bruno MD [address] [place] [address] PCP - General 03/22/21 Kelsi Handy MD [address] [place] [address] Assigned OBGYN Provider 04/23/20 3 documented as of this encounter
--- OUTSIDE RECORDS SUMMARY | 2024-07-21 15:39 | XMS_ITS | Data Portability ---
Author Organization [place] [facility] [place] [facility], [facility] Address [address] [place] [id number] Assessment No assessment recorded. Plan of Treatment Reminders Order Date Submit Date Provider Last Modified By Organization Details Last Modified Time Details Appointments None recorded. Lab urinalysi s, dipstick 2023 024 [facility], [address], [place], [address], 13:07:01 Referral pelvic floor therapy referral [address] [facility], [address], [place], [address], 08:14:59 Procedures None recorded. Surgeries None recorded. [...] Available [facility] [address], [place], [address], 06/17/2023 12:42:43 06/17/19 24 06/17/2023 urina lysis , dipst ick Clarity-Stat us Clear Not Available [facility] [address], [place], [address], 06/17/2023 12:42:43 06/17/19 24 06/17/2023 urina lysis , dipst ick Glucose-Stat us Negati ve Not Available [facility] [address], [place], [address], 06/17/2023 12:42:43 06/17/19 24 06/17/2023 urina lysis , dipst ick Bilirubin-St atus Negati ve Not Available [facility] [address], [place], [address], 06/17/2023 12:42:43 06/17/19 24 06/17/2023 urina lysis , dipst ick Ketones-Stat us Negati ve Not Available [facility] [address], [place], [address], 06/17/2023 12:42:43 06/17/19 24 06/17/2023 urina lysis , dipst ick Sp Pioneer-Stat us 1.020 Not Available [facility] [address], [place], [address], 06/17/2023 12:42:43 06/17/19 24 06/17/2023 urina lysis , dipst ick pH-Status 5.5 Not Available [facility] [address], [place], [address], 06/17/2023 12:42:43 06/17/19 24 06/17/2023 urina lysis , dipst ick Urobilinogen -Status 0.2 Not Available [facility] [address], [place], [address], 06/17/2023 12:42:43 06/17/19 24 06/17/2023 urina lysis , dipst ick Nitrates-Sta tus negati ve Not Available [facility] [address], [place], [address], 06/17/2023 12:42:43 06/17/19 24 06/17/2023 urina lysis , dipst ick Blood-Status Negati ve Not Available [facility] [address], [place], [address], 06/17/2023 12:42:43 06/17/19 24 06/17/2023 urina lysis , dipst ick Leuko-Status Trace Not Available [facility] [address], [place], [address], 06/17/2023 12:42:43 06/17/19 24 06/17/2023 urina lysis , dipst ick Specimen Type Voided Not Available [facility] [address], [place], [address], 06/17/2023 12:42:43 06/17/19 24 06/17/2023 urina lysis , dipst ick Performed by Nelli Al RN Not Available [facility] [address], [place], [address], 06/17/2023 12:42:43 Result Notes None recorded. Procedures Surgical History Date Name Laterality Status Provider Name and Address Organization Details Recorded Time 06/17/19 24 CystoscopyFemale completed David Rowland PA-C [address] [place] [address],[address], [address], [facility] 06/17/2023 13:01:47 06/17/19 24 Bladder Scan completed Nelli Al [facility] 06/17/2023 12:47:55 Imaging Results None recorded. Procedure Notes None recorded. Medical Equipment None Reported. Allergies Allergen ID Allergen Name Allergen Category Reaction Reaction Severity Criticality Documentation Date Start Date Code Code System Note Provider Name and Address Organization Details Recorded Time 650573 auranofin medicatio n Not available Not available Not available 06/17/2023 1227 RxNorm Not Available Not Available Not Available 605378 cat dander environme nt Not available Not available Not available 06/17/2023 22688 UNK Not Available Not Available Not Available 190012 Product containin g gadoliniu m and/or gadoliniu m compound (product) medicatio n Not available Not available Not available 06/17/2023 85670 3008 SNOMED Not Available Not Available Not Available 579194 wheat gluten extract food Not available Not available Not available 06/17/2023 60128 81 RxNorm Not Available Not Available Not Available 663210 gold keratinat e Not available Not available Not available Not available 06/17/2023 16336 RxNorm Not Available Not Available Not Available 857809 Substance with morphinan structure and opioid receptor agonist mechanism of action (substanc e) medicatio n Not available Not available Not available 06/17/2023 53963 9000 SNOMED Not Available Not Available Not [...] Updated DateTime 06/17/2023 172.72 cm 20.4 kg/m2 51509.38 g Nelli Al [place] [facility] 06/17/2023 12:26:06 Social History None recorded. Functional Status None recorded. Mental Status None recorded. Family History Nothing Reported. Medical History No medical history recorded. Gynecological HistoryNo gynecological history recorded. Obstetrics History GPAL:G 0 P 0 0 0 0 Past Encounters Encounter ID Performer Location Encounter Start Date Encounter Closed Date Diagnosis/Indication Diagnosis SNOMED-CT Code Diagnosis ICD10 Code Diagnosis Note [id number] Nancy Troncoso MD [facility] [address] [place] [address] 06/17/2023 11:59:35 06/18/2023 10:35:23 Urgent desire to urinate 59041322 R39.15 I went over treatment options for OAB including diet modificati on, biofeedbac k, medication s. We woudl start with diet modificati on and PT for incontinen ce. She has concerns about side effects of the medication s Recurrent urinary tract infection 616913093 N39.0 Last UTI was in the fall 2022; treat as they happen I stressed importance of obtaining UC at the time of UTI symptoms only to guide the correct Abx choice. Vaginal dryness 34369315 N89.8 continue clobetasol and estrogen vaginashe is following at [facility] for her lichen sclerosis Health Concerns Section Related Observation LastModified by Organization Detai ls LastModified Time None Recorded Concern Status LastModified by Organization Details LastModified Time None Recorded Advance Directives Directive None Recorded Payers Encounter Date Sequence Insurance Name Policy Number Policy Duval Covered Member ID Duval Member ID Guarantor Name 06/17/2023 2 [place] [id number] Juliette Brown [id number] Juliette Brown 06/17/2023 1 [place] [employer] [facility] Juliette Brown [id number] Juliette Brown Notes Date Note Type [...] sclerosis, no POPCysto: Normal Nancy Troncoso MD [address], [place], [address], [facility] 06/17/2023 13:59:27 OBGyn Episode No OBEpisode recorded.
--- OUTSIDE RECORDS SUMMARY | 2024-07-21 15:39 | XMS_ITS | Clinical Summary ---
Author Organization [facility] Address [address] [place] [address] Care Team Providers Care Twist Tester Name Role Phone Nivia Bruno MD Primary Care Provider [phone] Allergies Active Allergy Reactions Criticality Noted Date [...] Take 1 tablet by mouth 07/22/2014 Active Table Rock-3 1000 MG CAPS 04/02/2016 Active Saline (SODIUM CHLORIDE) 0.65 % SOLN [place] 1 spray in nostril 01/28/2015 Active traZODone [...] on file Legal Sex Female 3:16 AM AU PAIR Gender Identity Not on file Sexual Orientation [...] BASIC METABOLIC PANEL Routine 06/23/2017 6:00 AM AU PAIR TSH Routine 06/23/2017 6:00 AM AU PAIR from Last 3 Months or Most Recently Relevant to Health Maintenance Results * TSH (06/23/2017 6:00 AM AU PAIR) TSH 2.31 0.30 - 5.00 uIU/mL 06/23/2017 10:31 AM AU PAIR [facility] Blood specimen (specimen) STRUCTURE OF LEFT UPPER LIMB / Unknown Venipuncture / Unknown 06/23/2017 6:00 AM AU PAIR 06/23/2017 9:50 AM AU PAIR Rosmery Simpson MD LAB - BLOOD ORDERABLES Fi nal Result [facility] [address] [place] [address], [facility] [address] [place] [address] * Basic metabolic panel (06/23/2017 6:00 AM AU PAIR) Sodium 139 136 - 145 mmol/L 06/23/2017 10:13 AM AU PAIR [facility] Potassium 4.2 3.5 - 5.0 mmol/L 06/23/2017 10:13 AM AU PAIR [facility] Chloride 103 98 - 107 mmol/L 06/23/2017 10:13 AM [facility] Carbon Dioxide (CO2) 29 22 - 31 mmol/L 06/23/2017 10:13 AM [facility] Anion Gap 7 5 - 18 mmol/L 06/23/2017 10:13 AM [facility] Glucose 105 70 - 125 mg/dL 06/23/2017 10:13 AM [facility] Calcium 9.4 8.5 - 10.5 mg/dL 06/23/2017 10:13 AM [facility] Urea Nitrogen 16 8 - 22 mg/dL 06/23/2017 10:13 AM [facility] Creatinine 0.69 0.60 - 1.10 mg/dL 06/23/2017 10:13 AM [facility] GFR Estimate If Black >60 >60 mL/min/1.7 3m2 06/23/2017 10:13 AM [facility] GFR Estimate >60 >60 mL/min/1.7 3m2 06/23/2017 10:13 AM [facility] Blood specimen (specimen) STRUCTURE OF LEFT UPPER LIMB / Unknown Venipuncture / Unknown 06/23/2017 6:00 AM [facility] 06/23/2017 9:50 AM [facility] Narrative [facility] - 06/23/2017 10:13 AM [facility] Fasting Glucose reference range is 70-99 mg/dL per [place] [employer] (ADA) guidelines. Rosmery Simpson MD LAB - BLOOD ORDERABLES Fi nal Result [facility] [address] [place] [address], [facility] [address] [place] [address] from Last 3 Months or Most Recently Relevant to [place] [address] [place]ARE [place] [address] [place] [phone] [place] Advance Directives For more information, please contact: [phone] * Full Code (Latest Code Status on File) Date Activated Date Inactivated Comments 04/16/2016 1:58 AM 04/22/2016 3:55 PM Care Teams Twist Tester Relationship Specialty Start Date End Date Nivia Bruno MD PCP - General 03/22/21
--- OUTSIDE RECORDS SUMMARY | 2024-07-21 15:39 | XMS_ITS | Clinical Summary ---
Author Organization [employer] [facility] [employer] [facility] Address [address] [place] [address] Care Team Providers Care Piccolo Mechanic Name Role Phone Monica Bruno MD Primary Care Provider Judie Carreno PharmD Unavailable [phone] Allergies Active Allergy Reactions Criticality Noted Date [...] injury due to substance overdose Inhale 1 [place] into affected nostril(s) each time if needed [...] Apple Cider Vinegar - PRN NN Ultimate [place]ady Side-3 - daily Body Bio Balance Oil (omega-3/omega-6 [...] Encounters Date Type Department Care Team Description 07/21/[address] [address] Facundo Mijares MD Appointment 07/21/[address] [facility] Scanner 1 scan: (1-Ord) [facility], XR RIBS R, W/ CXR, 07/21/2024 07/20/[address] [address] Freda Serrano MD 07/19/[address] [address] Freda Serrano MD Parasites 07/19/[address] [address] Maria G Villavicencio DO Results 07/19/[address] [address] Maria G Villavicencio DO Results 07/16/2024 11:25 AM AIR BAG CURER Office Visit [address] [address] Maria G Villavicencio, Nose Problem (States she has worms in her nose-she states she has fresh samples brought in) 07/16/2024 9:00 AM AIR BAG CURER Ancillary Procedure [facility] [address] [place] [address] Arrived 07/16/2024 8:10 AM AIR BAG CURER Procedure Only [facility] [address] [place] [address] Facundo Mijares MD Procedure (Ultrasound guided injection lef... 07/16/[address] [address] Facundo Mijares MD Results (xray ) 07/15/2024 10:30 AM AIR BAG CURER Procedure Only [facility] [address] [place] [address] Tyler Parson L Ac Acupuncture 07/15/[address] [address] Kourtney Cherry PA appointment (Medication ) 07/15/[address] [address] Monica Bruno MD Error-please disregard 07/15/2024 Telephone [facility] [address] [place] [address] Monica Bruno MD Callback (Call the patient ) 07/15/2024 Travel 07/15/2024 Nurse Triage [facility] [address] [place] [address] Tomas Mckeon MD Error-please disregard 07/13/2024 1:00 PM AIR BAG CURER Phone Office Visit [facility] [address] [place] [address] Keiko Downs, [facility] Individual Therapy; Phone Visit 07/13/2024 Nurse Triage [facility] [address] [place] [address] Monica Bruno MD Sinus Problem; Worms in nasal cavity 07/13/2024 Telephone [facility] [address] [place] [address] Monica Bruno MD Foreign Body (Worms coming out of nose) 07/13/2024 Travel 07/09/2024 3:30 PM AIR BAG CURER Office Visit [facility] [address] [place] [phone] Mehran Norman MD Consult (Calcified atheromatous plaque, Edema in both legs per Dr. Bruno ) 07/09/2024 11:00 AM AIR BAG CURER Procedure Only [facility] [address] [place] [address] Tyler Parson L Ac Acupuncture 07/09/2024 Telephone [facility] - [address] [place] [address] Mehran Norman MD Follow Up (PCSK9 barrera check) 07/09/2024 Travel 07/08/2024 Telephone [facility] [address] [place] [address] Monica Bruno MD return call 07/08/[address] [facility] Scanner 1 scan: (1-Ord) INCOMING RECORDS-LABS, [facility], 07/08/2024 07/08/2024 Telephone [facility] [address] [place] [address] Monica Bruno MD Results 07/07/2024 10:00 AM AIR BAG CURER Office Visit [facility] [address] [place] [address] Monica Bruno MD ER Follow up (06/29/2024, [facility]) 07/07/2024 Telephone [facility] [address] [place] [address] Monica Bruno MD Lab; Results 07/07/2024 Telephone [facility] [address] [place] [address] Freda Serrano MD 07/07/[address] [address] Monica Bruno MD Results 07/06/2024 1:00 PM AIR BAG CURER Phone Office Visit [address] [phone] Keiko Downs, [facility] Individual Therapy; Phone Visit 07/06/[address] [address] Monica Bruno MD Follow Up 07/06/2024 Travel 07/05/[address] [address] Freda Serrano MD Refill Request (LORazepam (ATIVAN) 0.5 mg tab/) 07/05/[address] [address] Freda Serrano MD Error-please disregard (error) 07/05/[address] [address] Monica Bruno MD Questions (result ) 07/01/2024 Nurse Triage [address] [address] Monica Bruno MD General Illness/Other (Worms.) 06/29/2024 1:00 PM AIR BAG CURER Phone Office Visit [address] [phone] Keiko Downs, [facility] Individual Therapy; Phone Visit 06/29/[address] [facility] Scanner 1 scan: (1-Ord) [facility], OVA AND PARASITE FECAL, 06/29/2024 06/29/2024 Travel 06/25/[address] [address] Facundo Mijares MD Medication Management (HYDROmorphone 2 mg tablet ) 06/24/2024 1:00 PM AIR BAG CURER Procedure Only [facility] [address] [place] [address] Tyler Parson L Ac Acupuncture 06/24/2024 Travel 06/24/2024 Telephone [facility] [address] [place] [address] Monica Bruno MD Results (Ekg) 06/24/[address] [address] Facundo Mijares MD Appointment (Left elbow pain) 06/23/2024 10:00 AM AIR BAG CURER Ancillary Procedure [facility] [address] [place] [address] 06/22/2024 1:00 PM AIR BAG CURER Phone Office Visit [address] [phone] Keiko Downs, [facility] Individual Therapy; Phone Visit 06/22/2024 Travel 06/21/2024 Nurse Triage [address] [address] Monica Bruno MD Error-please disregard 06/21/[address] [address] Monica Bruno MD Referral (Echocardiogram ) 06/14/2024 2:00 PM AIR BAG CURER Procedure Only [address] [address] Tyler Parson L Ac Acupuncture 06/14/2024 Travel 06/11/2024 Telephone [facility] [address] [place] [address] Monica Bruno MD Results 06/10/2024 2:00 PM AIR BAG CURER Procedure Only [address] [address] Tyler Parson L Ac Acupuncture 06/10/2024 11:15 AM AIR BAG CURER Office Visit [facility] [address] [place] [address] Monica Bruno MD Medication Management; Derm Problem (Right arm); Leg Swelling (Bilateral legs, left > right); Immunization/Inject ion 06/10/2024 Travel 06/08/2024 1:00 PM AIR BAG CURER Phone Office Visit [facility] [address] [place] [address] Keiko Downs, [facility] Individual Therapy; Phone Visit 06/08/2024 Travel 06/04/[address] [address] Freda Serrano MD Refill Request (Lorazepam) 06/01/2024 1:00 PM AIR BAG CURER Phone Office Visit [facility] [address] [place] [address] Keiko Downs, [facility] Individual Therapy; Phone Visit 06/01/2024 Refill [facility] [address] [place] [address] Monica Bruno MD Refill Request (valACYclovir (VALTREX) 1 gram tablet) 05/31/2024 Travel 05/28/2024 1:00 PM AIR BAG CURER Procedure Only [facility] [address] [place] [address] Tyler Parson L Ac Acupuncture 05/28/2024 Travel 05/25/2024 1:00 PM AIR BAG CURER Phone Office Visit [address] [phone] Keiko Downs [facility] Individual Therapy; Phone Visit 05/25/2024 Travel 05/18/2024 1:00 PM AIR BAG CURER Phone Office Visit [address] [phone] Keiko Downs HAND I TUBE BENDER Individual Therapy; Phone Visit 05/18/2024 Travel 05/14/2024 1:30 PM AIR BAG CURER Procedure Only [facility] [address] [place] [address] Tyler Parson L Ac Acupuncture 05/14/2024 Travel 05/12/[address] [facility] Scanner 1 scan: (1-Ord) [facility], MULTIPLE LABS, 05/12/2024 05/11/2024 1:00 PM AIR BAG CURER Phone Office Visit [facility] [address] [place] [address] Keiko Downs, [facility] Individual Therapy; Phone Visit 05/10/2024 2:15 PM AIR BAG CURER Phone Office Visit [address] [address] Freda Serrano MD Telehealth; Medication Management (Things are not good. Hasn't been getting sleep) 05/10/2024 Travel 05/03/2024 Refill [facility] [address] [place] [address] Freda Serrano MD Refill Request (Trazodone, Buspirone) 04/30/2024 1:00 PM AIR BAG CURER Procedure Only [facility] [address] [place] [address] Tyler Parson L Ac Acupuncture 04/30/2024 Travel 04/27/2024 1:00 PM AIR BAG CURER Phone Office Visit [address] [phone] Keiko Downs [facility] Individual Therapy; Phone Visit 04/27/[address] [address] Monica Bruno MD TCU Orders (LABS Creatinine) 04/27/2024 Travel 04/26/[address] [address] Monica Bruno MD Results 04/23/2024 3:00 PM AIR BAG CURER Orders Only [facility] [address] [place] [address] Lab, [facility] 04/23/2024 Travel from Last [...] on file Legal Sex Female 6:06 AM AIR BAG CURER Gender Identity Not on file Sexual Orientation [...] Comments Blood Pressure 135/79 07/16/2024 9:20 AM AIR BAG CURER Pulse 83 07/16/2024 9:20 AM AIR BAG CURER Temperature 36.6 C (97.9 F) 07/16/2024 9:20 AM AIR BAG CURER Respiratory Rate 16 04/01/2022 3:21 PM AIR BAG CURER Oxygen Saturation 98% 07/16/2024 9:20 AM AIR BAG CURER Inhaled Oxygen Concentration - - Weight 83.4 kg (183 lb 12.8 oz) 07/16/2024 9:20 AM AIR BAG CURER Height 174 cm (5' 8.5) 04/14/2023 2:10 PM AIR BAG CURER Body Mass Index 27.54 04/14/2023 2:10 PM AIR BAG CURER Plan of Treatment Upcoming Encounters Date Type Department Care Team (Late st Contact Info) Description 07/22/2024 1:20 PM CDT Office Visit [facility] [address] [place] [address] Facundo Mijares MD [address] [place] [address] 07/22/2024 2:00 PM CDT Procedure Only [facility] [address] [place] [address] Tyler Parson L Ac [address] [place] [address] 07/27/2024 1:00 PM CDT Phone Office Visit [facility] [address] [place] [phone] Keiko Downs [facility] [address] [place] [address] 07/29/2024 2:00 PM CDT Procedure Only [facility] [address] [place] [address] Tyler Parson L Ac [address] [place] [address] 08/03/2024 2:00 PM CDT Procedure Only [facility] [address] [place] [address] Tyler Parson L Ac [address] [facility] [place] [address] 08/09/2024 1:15 PM CDT Phone Office Visit [facility] [address] [place] [address] Freda Serrano MD [address] [place] [address] 08/10/2024 1:00 PM CDT Phone Office Visit [facility] [address] [place] [phone] Keiko Downs LICSW [address] [place] [address] 08/12/2024 2:00 PM CDT Procedure Only [facility] [address] [place] [address] Tyler Parson L Ac [address] [place] [address] 08/17/2024 1:00 PM CDT Phone Office Visit [facility] [address] [place] [phone] Keiko Downs LICSW [address] [place] [address] 08/19/2024 2:00 PM CDT Procedure Only [facility] [address] [place] [address] Tyler Parson L Ac [address] [place] [address] 08/24/2024 1:00 PM CDT Phone Office Visit [facility] [address] [place] [address] Keiko Downs HAND I TUBE BENDER [address] [facility] [place] [address] 08/26/2024 1:00 PM CDT Procedure Only [facility] [address] [place] [address] Tyler Parson L Ac [address] [facility] [place] [address] 08/31/2024 1:00 PM CDT Phone Office Visit [facility] [address] [facility] [place] [address] Keiko Downs HAND I TUBE BENDER [address] [facility] [place] [address] 09/02/2024 1:30 PM CDT Procedure Only [facility] [address] [place] [address] Tyler Parson L Ac [address] [facility] [place] [address] 09/07/2024 1:00 PM CDT Phone Office Visit [facility] [address] [place] [address] Keiko Downs HAND I TUBE BENDER [address] [facility] [place] [address] 09/10/2024 2:00 PM CDT Procedure Only [facility] [address] [place] [address] Tyler Parson L Ac [address] [facility] [place] [address] 09/16/2024 2:00 PM CDT Procedure Only [facility] [address] [place] [address] Tyler Parson, L Ac [address] [facility] [place] [address] 09/23/2024 2:00 PM CDT Procedure Only [facility] [address] [place] [address] Tyler Parson, L Ac [address] [facility] [place] [address] 09/30/2024 1:00 PM CDT Procedure Only [facility] [address] [place] [address] Tyler Parson, [place] Ac [address] [facility] [place] [address] 10/07/2024 2:00 PM CDT Procedure Only [facility] [address] [place] [address] Tyler Parson, L Ac [address] [facility] [place] [address] 10/14/2024 2:00 PM CDT Procedure Only [facility] [address] [place] [address] Tyler Parson L Ac [address] [facility] [place] [address] 10/21/2024 2:00 PM CDT Procedure Only [facility] [address] [place] [address] Tyler Parson, [place] Ac [address] [facility] [place] [address] 10/28/2024 2:00 PM CDT Procedure Only [facility] [address] [place] [address] Tyler Parson L Ac [address] [place] [address] 11/04/2024 1:00 PM CDT Procedure Only [facility] [address] [place] [address] Tyler Parson L Ac [address] [place] [address] Health Maintenance Due Date Last Done Comments [...] Procedure Name Priority Date/Time Associated Diagnosis Comments SCAN-RADIOLOGY REPORT 07/21/2024 12:00 AM CDT BEDSIDE US STUDY ARCHIVE Routine 07/16/2024 10:44 AM AIR BAG CURER Chronic polyarticular juvenile rheumatoid arthritis (HC) Effusion of elbow joint, left Left elbow pain PARASITE DIRECT EXAM Routine 07/16/2024 10:18 AM AIR BAG CURER XR FOOT 3 VIEWS LEFT Routine 07/16/2024 9:06 AM AIR BAG CURER Foot pain, left ACUPUNCTURE PLAN OF CARE Routine 07/15/2024 12:03 PM AIR BAG CURER Other low back pain ACUPUNCTURE PLAN OF CARE Routine 07/09/2024 3:39 PM AIR BAG CURER Other low back pain SCAN CORRESP-LABORATORY RESULTS 07/08/2024 12:00 AM AIR BAG CURER OVA + PARASITE EXAM Routine 07/07/2024 4 :03 PM AIR BAG CURER Change in stool TSH WITH REFLEX Routine 07/07/2024 3:15 PM AIR BAG CURER Hypothyroidism, unspecified type COMP METABOLIC PANEL Routine 07/07/2024 3:15 PM AIR BAG CURER Change in stool CBC WITH AUTO DIFFERENTIAL Routine 07/07/2024 3:15 PM AIR BAG CURER Change in stool FOLIC ACID Routine 07/07/2024 3:15 PM AIR BAG CURER Change in stool VITAMIN B12 Routine 07/07/2024 3:15 PM AIR BAG CURER Change in stool URINALYSIS MICROSCOPIC Routine 07/07/2024 11:16 AM AIR BAG CURER Vaginal itching URINALYSIS MACROSCOPIC - [facility] ONLY POC DIP ([facility]) Routine 07/07/2024 11:16 AM AIR BAG CURER Vaginal itching URINE CULTURE Routine 07/07/2024 10:45 AM AIR BAG CURER Abnormal urine SCAN-PATHOLOGY REPORT 06/29/2024 12:00 AM AIR BAG CURER ACUPUNCTURE PLAN OF CARE Routine 06/24/2024 4:03 PM AIR BAG CURER Other low back pain ECHO TTE COMPLETE WO CONTRAST Routine 06/23/2024 10:43 AM AIR BAG CURER Bilateral leg edema ACUPUNCTURE PLAN OF CARE Routine 06/14/2024 3:20 PM AIR BAG CURER Other low back pain ACUPUNCTURE PLAN OF CARE Routine 06/10/2024 3:30 PM AIR BAG CURER Other low back pain VITAMIN D 25 (DEFICIENCY) Routine 06/10/2024 1:40 PM AIR BAG CURER Osteopenia, unspecified location HEMOGLOBIN A1C Routine 06/10/2024 1:40 PM AIR BAG CURER Prediabetes CBC WITH AUTO DIFFERENTIAL Routine 06/10/2024 1:40 PM AIR BAG CURER Bilateral leg edema COMP METABOLIC PANEL Routine 06/10/2024 1:40 PM AIR BAG CURER Bilateral leg edema ACUPUNCTURE PLAN OF CARE Routine 05/28/2024 3:04 PM AIR BAG CURER Other low back pain SCAN-LABORATORY REPORT 05/12/2024 12:00 AM AIR BAG CURER ACUPUNCTURE PLAN OF CARE Routine 04/30/2024 1:03 PM AIR BAG CURER Other low back pain CREATININE Routine 04/23/2024 1:19 PM AIR BAG CURER Osteopenia, unspecified location HPV HIGH RISK Routine 11/04/2023 3:50 PM CDT XR DXA BONE DENSITY 2 SITES AXIAL Routine 09/24/2023 2:28 PM CDT Osteopenia, unspecified location Menopause XR MAMMO EVA BILAT SCREEN Routine 08/01/2023 3:29 PM CDT Visit for screening mammogram LIPID PANEL W REFLEX MEASURED LDL Routine 07/08/2023 12:07 PM AIR BAG CURER Hyperlipidemia, unspecified hyperlipidemia type SCAN-COLONOSCOPY 01/28/2022 1:00 PM CDT ANTI HIV 1/2 Routine 06/01/2018 4:02 PM AIR BAG CURER Exposure to STD ANTI HCV Routine 09/30/2017 5:38 PM CDT STD exposure from Last 3 Months or Most Recently Relevant to Health Maintenance Results * SCAN-RADIOLOGY REPORT (07/21/2024 12:00 AM CDT) Anatomical Region Laterality Modality Other us Scanner OTHER Final Result * BEDSIDE US STUDY ARCHIVE (07/16/2024 10:44 AM AIR BAG CURER) Narrative Maureen Martinez - 07/16/2024 10:44 AM AIR BAG CURER The patient was seen for ultrasound guided [...] * PARASITE DIRECT EXAM (07/16/2024 10:18 AM AIR BAG CURER) PARASITE IDENTIFICATION [facility], Comment: Specimen submitted is an artifact (not a worm). 07/16/2024 10:1 8 AM AIR BAG CURER 07/16/2024 10:18 AM AIR BAG CURER Maria G Villavicencio DO MICROBIOLOGY Final Result [facility] [address] [place] [address], [facility], [address] [place] [address] * XR FOOT 3 VIEWS LEFT (07/16/2024 9:06 AM AIR BAG CURER) Anatomical Region Laterality Modality FEET, FOOT L Computed Radiogr aphy 07/16/2024 3:42 PM AIR BAG CURER Narrative 07/16/2024 3:42 PM AIR BAG CURER For Patients: As a result of the [...] MD @ 07/16/2024 3:42:40 PM (Electronically Signed) Facundo Mijares MD GENERAL IMAGING Final Resu lt * SCAN CORRESP-LABORATORY RESULTS (07/08/2024 12:00 AM AIR BAG CURER) Scanner OTHER Final Result * OVA + PARASITE EXAM (07/07/2024 4:03 PM AIR BAG CURER) OVA AND PARASITES, CONC AND PERM SMEAR SEE NOTE [facility] [place] Comment: OVA AND PARASITES, CONC AND PERM SMEAR Micro Number: [id number] Test Status: Final Specimen Source: Feces Specimen [...] infection. For additional information, please refer to https://education.[employer]/faq/SVM101 (This link is being provided for informational/ educational purposes only.) Stool STOOL SPECIMEN / Unknown 07/07/2024 4:03 PM AIR BAG CURER 07/07/2024 4:04 PM AIR BAG CURER Monica Bruno MD SEND OUTS Final Resul t [facility] [address] [place] [address], [facility] [address] [place] [address] * TSH WITH REFLEX (07/07/2024 3:15 PM AIR BAG CURER) TSH W/REFLEX TO FT4 1.09 0.40 - 4.50 mIU/L [facility] [place] Blood BLOOD SPECIMEN / Unknown 07/07/2024 3:15 PM AIR BAG CURER 07/07/2024 3:15 PM AIR BAG CURER us Monica Bruno MD CHEMISTRY Final Resul t [facility] [address] [place] [address], [facility] [address] [place] [address] * CBC AND DIFFERENTIAL (07/07/2024 3:15 PM AIR BAG CURER) Only the most recent of2 resultswithin the time period is included. Pathologist [facility] WHITE BLOOD CELL COUNT 5.6 3.8 - 10.8 Thousand/u L [facility] [place] RED BLOOD CELL COUNT 4.23 3.80 - 5.10 Million/uL [employer] [place] HEMOGLOBIN 13.1 11.7 - 15.5 g/dL [facility] [place] HEMATOCRIT 39.8 35.0 - 45.0 % [employer] [facility] [place] MCV 94.1 80.0 - 100.0 fL [employer] [place] MCH 31.0 27.0 - 33.0 pg [facility] [place] MCHC 32.9 32.0 - 36.0 g/dL [employer] [place] Comment: For adults, a slight decrease in the calculated MCHC value (in the range of 30 to 32 g/dL) is most likely not clinically significant; however, it should be interpreted with caution in correlation with other red cell parameters and the patient's clinical condition. RDW 12.4 11.0 - 15.0 % [facility] [place] PLATELET COUNT 271 140 - 400 Thousand/u L [employer] [facility] [place] MPV 10.5 7.5 - 12.5 fL [employer] [place] ABSOLUTE NEUTROPHILS 3,578 1,500 - [...] [facility] [place] LYMPHOCYTES 26.6 % [facility] [place] MONOCYTES 7.7 % [facility] [place] EOSINOPHILS 0.9 % [facility] [place] BASOPHILS 0.9 % [facility] [place] Blood BLOOD SPECIMEN / Unknown 07/07/2024 3:15 PM AIR BAG CURER 07/07/2024 3:15 PM AIR BAG CURER Monica Bruno MD HEMATOLOGY Final Resul t [facility] [address] [place] [address], [place] [phone] [facility] [address] [place] [address] * FOLIC ACID (07/07/2024 3:15 PM AIR BAG CURER) FOLATE, SERUM 23.6 ng/mL [facility] [place] Comment: Reference Range Low: <3.4 Borderline: 3.4-5.4 Normal: >5.4 Blood BLOOD SPECIMEN / Unknown 07/07/2024 3:15 PM AIR BAG CURER 07/07/2024 3:15 PM AIR BAG CURER Monica Bruno MD CHEMISTRY Final Resul t Performing Organization Address City/[facility]/ZIP Co de Phone Number [employer] [facility] [address] [place] [address], [place] [phone] [facility] [address] [place] [address] * VITAMIN B12 (07/07/2024 3:15 PM AIR BAG CURER) VITAMIN B12 565 200 - 1,100 pg/mL [facility] [place] Blood BLOOD SPECIMEN / Unknown 07/07/2024 3:15 PM AIR BAG CURER 07/07/2024 3:15 PM AIR BAG CURER Monica Bruno MD CHEMISTRY Final Resul t [employer] [facility] [address] [place] [address], [facility] [address] [place] [address] * (ABNORMAL) COMP METABOLIC PANEL (07/07/2024 3:15 PM AIR BAG CURER) Only the most recent of2 resultswithin the time period is included. GLUCOSE 141(H) 65 - 99 mg/dL [employer] [facility] [place] Comment: Fasting reference interval For someone without known diabetes, a glucose value >125 mg/dL indicates that they may have diabetes and this should be confirmed with a follow-up test. UREA NITROGEN (BUN) 23 7 - 25 mg/dL [employer] [place] CREATININE 0.94 0.50 - 1.05 mg/dL [employer] [place] EGFR 67 > OR = 60 mL/min/1. 73m2 [employer] [facility] [place] BUN/CREATININE RATIO SEE NOTE: 6 - 22 (calc) [employer] [facility] [place] Comment: Not Reported: BUN and Creatinine are within reference range. SODIUM 138 135 - 146 mmol/L [facility] [place] POTASSIUM 4.2 3.5 - 5.3 mmol/L [facility] [place] CHLORIDE 104 98 - 110 mmol/L [facility] [place] CARBON DIOXIDE 23 20 - 32 mmol/L [facility] [place] CALCIUM 9.7 8.6 - 10.4 mg/dL [facility] [place] PROTEIN, TOTAL 7.1 6.1 - 8.1 g/dL [facility] [place] ALBUMIN 4.5 3.6 - 5.1 g/dL [facility] [place] GLOBULIN 2.6 1.9 - 3.7 g/dL (calc) [employer] ALBUMIN/GLOBULIN RATIO 1.7 1.0 - 2.5 (calc) [employer] BILIRUBIN, TOTAL 0.4 0.2 - 1.2 mg/dL [employer] ALKALINE PHOSPHATASE 62 37 - 153 U/L [employer] AST 25 10 - 35 U/L [employer] ALT 20 6 - 29 U/L [facility] Blood BLOOD SPECIMEN / Unknown 07/07/2024 3:15 PM AIR BAG CURER 07/07/2024 3:15 PM AIR BAG CURER Monica Bruno MD CHEMISTRY Final Resul t Performing Organization Address City/[facility]/ZIP Co de Phone Number [facility] [address] [place] [address], [place] [phone] [facility] [address] [place] [address] * POCT Urinalysis Dipstick Only (07/07/2024 11:16 AM AIR BAG CURER) PH 6.0 5.0 - 8.0 [facility] SPECIFIC GRAVITY 1.020 1.001 - 1.035 [facility] GLUCOSE NEGATIVE NEGATIVE [facility] BILIRUBIN NEGATIVE NEGATIVE [facility] KETONES NEGATIVE NEGATIVE [facility] OCCULT BLOOD NEGATIVE NEGATIVE [facility] PROTEIN NEGATIVE NEGATIVE [facility] NITRITE NEGATIVE NEGATIVE [facility] LEUKOCYTE ESTERASE NEGATIVE NEGATIVE [facility] Urine URINE SPECIMEN / Unknown 07/07/2024 11:16 AM AIR BAG CURER 07/07/2024 11:17 AM AIR BAG CURER Monica Bruno MD URINE Final Resul t Performing Organization Address City/[facility]/ZIP Co de Phone Number [facility] [address] [place] [address], [place] [phone] [facility] [address] [place] [address] * (ABNORMAL) URINALYSIS MICROSCOPIC (07/07/2024 11:16 AM AIR BAG CURER) RBC 3-5(A) 0-2, None Seen /HPF 07/07/2024 4:10 PM AIR BAG CURER [facility] WBC 0-2 0-2, 3-5, None Seen /HPF 07/07/2024 4:10 PM AIR BAG CURER [facility] BACTERIA None Seen None Seen, Rare, Few Bacteria/ HPF 07/07/2024 4:10 PM AIR BAG CURER [facility] EPITHELIAL CELLS Moderate(A ) None Seen, Few Epi/HPF 07/07/2024 4:10 PM AIR BAG CURER [facility] HYALINE CASTS 0-2 0-2, 3-5 /LPF 07/07/2024 4:10 PM AIR BAG CURER [facility] CALCIUM OXALATE CRYSTALS Present(A) (none) 07/07/2024 4:10 PM AIR BAG CURER [facility] Urine URINE SPECIMEN / Unknown Non-Blood / Unknown 07/07/2024 11:16 AM AIR BAG CURER 07/07/2024 11:16 AM AIR BAG CURER us Monica Bruno MD URINE Final Resul t Performing Organization Address [facility] Co de Phone Number [facility] [address] [place] [address], [place] * URINE CULTURE (07/07/2024 10:45 AM AIR BAG CURER) CULTURE <10,000 CFU/mL multiple organisms 07/09/2024 2:29 PM AIR BAG CURER [facility] Urine URINE SPECIMEN / Unknown Non-Blood / Unknown 07/07/2024 10:45 AM AIR BAG CURER 07/08/2024 8:24 AM AIR BAG CURER us Monica Bruno MD MICROBIOLOGY Final Resul t Performing Organization Address City/[facility]/ZIP Co de Phone Number [facility] [address] [place] [address], [place] * SCAN-PATHOLOGY REPORT (06/29/2024 12:00 AM AIR BAG CURER) us Scanner OTHER Final Result * ECHO TTE COMPLETE WO CONTRAST (06/23/2024 10:43 AM AIR BAG CURER) AORTIC VALVE MEAN PG 6 mmHg EJECTION FRACTION 75 % PEAK TR VELOCITY 2.4 m/s LVEDD 4.2 cm EJECTION FRACTION 70 - 75% Anatomical Region Laterality Modality Ultrasound 06/23/2024 10:1 6 AM AIR BAG CURER Narrative 06/23/2024 11:09 AM AIR BAG CURER ECHOCARDIOGRAM JULITA CEJA : 1960 64 years Study Date: 06/23/2024 10:16:33 AM Gender: F BP: 114/70 mmHg Height: 173.00 cm BSA: 2.00 m Weight: 86.00 kg Tech: ROSANNE Referring MD: MONICA BRUNO Site: [facility] Reading Location: Mobile-OP Patient Location: [...] . This study was interpreted by an [facility] accredited facility. CC: [facility] ([facility]) [facility]. Final Procedure Note Geoffrey Coyne MD - 06/23/2024 ECHOCARDIOGRAM JULITA CEJA : 1960 64 years Study Date: 06/23/2024 10:16:33 AM Gender: F BP: 114/70 mmHg Height: 173.00 cm BSA: 2.00 m Weight: 86.00 kg Tech: [facility] Referring MD: MONICA BRUNO Site: [facility] Reading Location: Mobile-OP Patient Location: [...] . This study was interpreted by an [facility] accredited facility. CC: [facility] (med records) [facility]. Final Monica Bruno MD ECHO ORD Final Resul t * (ABNORMAL) HEMOGLOBIN A1C (06/10/2024 1:40 PM AIR BAG CURER) HEMOGLOBIN A1C 5.9(H) <5.7 % of total Hgb [employer] Comment: For someone without known diabetes, [...] BLOOD SPECIMEN / Unknown 06/10/2024 1:40 PM AIR BAG CURER 06/10/2024 1:40 PM AIR BAG CURER Monica Bruno MD CHEMISTRY Final Resul t [facility] [address] [place] [address], [facility] [address] [place] [address] * VITAMIN D 25 (DEFICIENCY) (06/10/2024 1:40 PM AIR BAG CURER) VITAMIN D,25-OH,TOTAL,IA 45 30 - 100 ng/mL [employer] Comment: Vitamin D Status 25-OH Vitamin D: Deficiency: <20 ng/mL Insufficiency: 20 - 29 ng/mL Optimal: > or = 30 ng/mL For 25-OH Vitamin D testing on patients on D2-supplementation and patients for whom quantitation of D2 and D3 fractions is required, the QuestAssureD(TM) 25-OH VIT D, (D2,D3), LC/MS/MS is recommended: order code 58882 (patients >2yrs). See Note 1 Note 1 For additional information, please refer to http://education.SegmentFault/faq/VXJ066 (This link is being provided for informational/ educational purposes only.) Blood BLOOD SPECIMEN / Unknown 06/10/2024 1:40 PM AIR BAG CURER 06/10/2024 1:40 PM AIR BAG CURER us Monica Bruno MD SEND OUTS Final Resul t [employer] [facility] [address] [place] [address], [facility] [address] [place] [address] * SCAN-LABORATORY REPORT (05/12/2024 12:00 AM AIR BAG CURER) us Scanner OTHER Final Result * (ABNORMAL) CREATININE (04/23/2024 1:19 PM AIR BAG CURER) CREATININE 1.09(H) 0.50 - 1.05 mg/dL [employer] EGFR 56(L) > OR = 60 mL/min/1.73 m2 [employer] Blood BLOOD SPECIMEN / Unknown 04/23/2024 1:19 PM AIR BAG CURER 04/23/2024 1:20 PM AIR BAG CURER us Monica Bruno MD CHEMISTRY Final Resul t [employer] [facility] [address] [place] [address], [place] [phone] [facility] [address] [place] [address] * HPV HIGH RISK (11/04/2023 3:50 PM CDT) TYPE 16 Negative Negative 11/07/2023 4:00 PM CDT [facility] TYPE 18 Negative Negative 11/07/2023 4:00 PM CDT [facility] OTHER HIGH RISK TYPES Negative Negative 11/07/2023 4:00 PM CDT [facility] Other (Cervical) 11/04/2023 3:50 PM CDT 11/06/2023 9:26 AM CDT Narrative [facility] - 11/07/2023 4:00 PM CDT HPV types 16, 18, 31, 33, 35, 39, 45, 51, 52, 56, 58, 59, 66 and 68 DNA were undetectable or below the pre-set threshold. Methodology: [employer] Karen 4800 HPV Test us Corine Guillaume MD MICROBIOLOGY Final Resu lt [facility] [address] [place] [address], * (ABNORMAL) XR DXA BONE DENSITY 2 [...] to assess therapeutic efficacy. Ann Jay PA-C [facility] 09/30/2023 Narrative 09/30/2023 1:49 PM CDT For Patients: Results are automatically released to your [facility] ([employer]) account once available, in compliance with federal regulations. This means that you may see your results before your provider has had a chance to review them. Please allow 2-3 business days for your provider to comment on the results. XR DXA Bone Mineral Density (BMD) EXAM LOCATION: [address] [address] PATIENT NAME: Julita Ceja DATE OF : [...] two scanners are made by the same animal park code enforcement officer. PROCEDURE: Dual-energy x-ray absorptiometry performed with routine [...] care provider. XR MAMMO EVA BILAT SCREEN [[id number]] CLINICAL HISTORY: This is an asymptomatic 63 y.o. patient. INDICATION FOR EXAM: Mammogram Screening. TECHNIQUE: CC & MLO views were obtained. This study was evaluated with the assistance of Computer-Aided Detection. Breast Tomosynthesis was used in interpretation. COMPARISON FILM: Yes 05/13/22 [facility] 05/10/21 [facility] FINDINGS: The breasts have scattered areas of fibroglandular density. There are no dominant masses, suspicious micro calcifications or areas of architectural distortion. us Monica Bruno MD MAMMO Final Resul t * (ABNORMAL) LIPID PANEL W REFLEX MEASURED LDL (07/08/2023 12:07 PM AIR BAG CURER) CHOLESTEROL,TOTAL 285(H) 100 - 199 mg/dL 07/08/2023 9:55 PM AIR BAG CURER [facility] Comment: Cholesterol, Total Reference Ranges Desirable <200 mg/dL Borderline 200-239 mg/dL High >=240 mg/dL TRIGLYCERIDES 97 <150 mg/dL 07/08/2023 9:55 PM AIR BAG CURER [facility] HDL CHOLESTEROL 76 >40 mg/dL 9:55 PM AIR BAG CURER [facility] NON-HDL CHOLESTEROL 209(H) <145 mg/dl 07/08/2023 9:55 PM AIR BAG CURER [facility] CHOL/HDL RATIO 3.75 <4.50 07/08/2023 9:55 PM AIR BAG CURER [facility] LDL CHOLESTEROL 190(H) <=130 mg/dL 07/08/2023 9:55 PM AIR BAG CURER [facility] VLDL CHOLESTEROL 19 <=30 mg/dL 07/08/2023 9:55 PM AIR BAG CURER [facility] PROVIDER ORDERED STATUS RANDOM 07/08/2023 9:55 PM AIR BAG CURER [facility] Blood BLOOD SPECIMEN / Unknown Venipuncture / Unknown 07/08/2023 12:07 PM AIR BAG CURER 07/08/2023 12:07 PM AIR BAG CURER Monica Bruno MD CHEMISTRY Final Resul t [facility] [address] [place] [address], * SCAN-COLONOSCOPY (01/28/2022 1:00 PM CDT) Narrative Procedure Note Edison Ceron MD - 01/28/2022 12:02 PM CDT [facility] [address], [address], [place] [address] Patient Name: Julita Ceja Gender: Female Exam Date: 01/28/2022 Visit Number: [id number] Age: 61 Years 9 Months Date of : 1960 Attending MD: Edison Ceron MD Medical Record#: [id number] ----- Procedure: Colonoscopy Indications: Recent history of [...] Race: White Ethnicity: Not or Preferred Language: Swedish cc: Monica Bruno MD [facility] [phone] us Edison Ceron MD OTHER Final Resu lt * ANTI HIV 1/2 (06/01/2018 4:02 PM AIR BAG CURER) HIV-1/HIV-2 ANTIBODY Non-Reacti ve Non-Reacti ve 06/01/2018 8:08 PM AIR BAG CURER [facility] Comment:HIV-1 p24 and HIV-1/ HIV-2 Ab not detected. Blood BLOOD SPECIMEN / Unknown Venipuncture / Unknown 06/01/2018 4:02 PM AIR BAG CURER 06/01/2018 4:02 PM AIR BAG CURER us Monica Bruno MD SEND OUTS Final Resul t [facility] [address] [place] [address], * ANTI HCV (09/30/2017 5:38 PM CDT) HEPATITIS C ANTIBODY Non-React mathieu Non-React mathieu 10/01/2017 2:41 PM CDT [facility] Comment:Antibodies to HCV no t detected; does not exclude the possibility of exposure to HCV. Blood BLOOD SPECIMEN / Unknown Venipuncture / Unknown 09/30/2017 5:38 PM CDT 09/30/2017 5:38 PM CDT us Kourtney GUERRERO SEND OUTS Final Result Performing Organization Address City/[facility]/ZIP Co de Phone Number [facility] [address] [place] [address], from Last 3 Months or Most Recently Relevant to [place] [address] MEDICARE PB ONLY [facility] [place] [address] MEDICARE PART B HB ONLY MEDICARE PART A HB ONLY [facility] [address] [facility] [place] [address] MEDICARE PB ONLY [facility] [place], [place] [id number] [place] [address] MEDICARE PART B HB ONLY [facility] ATTN: [place] [address] [facility] MEDICARE PPS [facility] [place] [id number] Advance Directives Documents on File Type Date Recorded Patient Product Test Engineer Expl anation Healthcare Directive 04/01/2022 022 * [...] 6:43 PM 06/10/2011 6:41 PM Care Teams Piccolo Mechanic Relationship Specialty Start Date End Date Monica Bruno MD [address] [place] [address] PCP - General Family Practice 07/01/19 Judie Carreno, Zoraida [address] [place] [address] Pharmacist Medication Management Pharmacology 05/28/23 05/28/25
--- OUTSIDE RECORDS SUMMARY | 2024-07-21 15:40 | XMS_ITS | Encounter Summary ---
Author Organization [facility] Address [address] [address] Care Team Providers Care Quality Technician Name Role Phone Needs Pcp, Assignment Primary Care Provider [phone] Reason for Visit * Auth/Cert Specialty Diagnoses / Procedures Referred By Contac t Referred To Contact Diagnoses Diarrhea of presumed infectious origin Fibromyalgia Diarrhea of presumed infectious origin Fibromyalgia Diarrhea of presumed infectious origin Fibromyalgia Referral ID Status Reason Start Date Expiration Date Visits Re quested Visits Authorized [id number] 1 1 Encounter Details Date Type Department Care Team (Latest Contact Info) Description 07/15/2019 Lab Requisition [facility] [address] [facility] [place], [place] [address] Lul Hunter MD [address] [place], [place] [id number] Enterocolitis due to Clostridium difficile, not specified [...] C.DIFFICILE TOXIN,MOLECULAR DETECTION Routine 07/15/2019 10:00 PM PACKAGING MATERIALS INSPECTOR Enterocolitis due to Clostridium difficile, not specified as recurrent documented in this encounter Results * (ABNORMAL) C.Difficile Toxin,Molecular Detection, (07/15/2019 10:00 PM PACKAGING MATERIALS INSPECTOR) C.difficile Detected(A ) Not Detected 07/15/2019 11:30 PM PACKAGING MATERIALS INSPECTOR [facility] Stool Non-blood Collection / Unknown 07/15/2019 10:00 PM PACKAGING MATERIALS INSPECTOR 07/15/2019 10:24 PM PACKAGING MATERIALS INSPECTOR Narrative [facility] - 07/15/2019 11:30 PM PACKAGING MATERIALS INSPECTOR Methodology: Qualitative real-time PCR assay to detect the Clostridium difficile toxin B gene. us Lul Hunter MD LAB_1 Final Result [facility] [address] documented in this encounter Visit Diagnoses Diagnosis Enterocolitis due to Clostridium difficile, not specified as recurrent documented in this encounter Care Teams Quality Technician Relationship Specialty Start Date End Date Needs Pcp, [place] [address] PCP - General 02/28/21 documented as of this encounter
--- OUTSIDE RECORDS SUMMARY | 2024-07-21 15:40 | XMS_ITS | Clinical Summary ---
Author Organization [facility] Address [address] [place] [address] , [address] [place] [address] Phone Care Team Providers Care Tank Refinisher Name Role Phone [facility] Unavailable Unava ilable Conditions or Problems Problem Name Problem Code Onset Date Status Entry Date Provider Comment Standard Description Annotate Myalgia of auxiliary muscles, head and neck 47113427 (SNOMED CT) 06/27 Active 06/27 Jina Johnson DNP,ELECTRICAL ENGINEERING INTERN,[place] P Muscle pain Hemifacial spasm R 16146942 (SNOMED CT) 08/10 Active 08/10 Norberto Miller Jr, MD Hemifacial spasm Facial pain, atypical 57411095 (SNOMED CT) 08/10 Active 08/10 Norberto Miller Jr, MD Atypical facial pain 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), right 80696197 (SNOMED CT) 08/10 Active 08/10 Norberto Miller Jr, MD Arthritis of temporomandibul ar joint Cervical spasm 50478546 (SNOMED CT) 08/10 Active 08/10 Norberto Miller Jr, MD Muscle spasm of head and/or neck Juvenile rheumatoid arthritis 020508253 (SNOMED CT) 08/10 Active 08/10 Norberto Miller [...] limb movement disorder (moderate; 15/hr; most w/arousals) 370290793 (SNOMED CT) 11/01 Inactive 11/03 Norberto Miller Jr, MD Periodic limb movement disorder 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 (ICD-10-CM ) 09/20 Active 09/20 Norberto Miller Jr, MD Sleep disorder, unspecified Fatigue 74084329 (SNOMED CT) 09/20 Active 09/20 Norberto Miller Jr, MD Fatigue Paresthesia of bilateral legs 24878714 (SNOMED CT) 11/10 Active 11/10 Regan Santiago MD Paresthesia Anxiety, generalized F41.1 (ICD-10-CM ) 01/17 Active 01/17 Jesika Diallo PhD Generalized anxiety disorder Restless leg syndrome (PLMS 15/hr) G25.81 (ICD-10-CM ) 09/04 Active 09/04 Norberto Miller Jr, MD Restless legs syndrome Sleep disturbance , nos 51399342 (SNOMED CT) 09/04 Inactive 09/04 Norberto Miller Jr, MD Dyssomnia 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 (ICD-10-CM ) 09/04 Active 09/04 Norberto Miller Jr, MD Insomnia, unspecified Snoring 69171450 (SNOMED CT) 09/04 Active 09/04 Norberto Miller Jr, MD Snoring Restless leg syndrome 61301164 (SNOMED CT) 09/04 Inactive 09/04 Norberto Miller Jr, MD Restless legs 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 (ICD-10-CM ) 09/04 Active 09/04 Norberto Miller Jr, MD Abnormal level of blood mineral traumatic brain injury, initial encounter S06.309A (ICD-10-CM ) 08/02 Active 08/07 Zuleyma Ly 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, initial encounter Hypothyroid ism 51742025 (SNOMED CT) 08/02 Active 08/07 Zuleyma Ly Hypothyroidism depression 08611001 (SNOMED CT) 08/02 Active 08/07 Zuleyma Ly Depressive disorder Memory problems R41.3 (ICD-10-CM ) 08/02 Active 08/07 Zuleyma Ly Other amnesia Medications Medication Instructions Start Date Stop Date Generic Name NDC Provider ESCITALOPRAM OXALATE 20 MG TABS 12/10 escitalopram oxalate 34377185261 Norberto Miller Jr, MD LORAZEPAM 0.5 MG TABS 12/10 lorazepam 02689212429 Norberto Miller Jr, MD TRETINOIN 0.025 % CREA 12/10 tretinoin 40773515196 Norberto Miller Jr, MD MELATONIN 10 MG TABS 1 by mouth every night 12/10 melatonin-lemon balm leaf extr 92880090854 Norberto Miller Jr, MD TRIAMCINOLONE ACETONIDE 0.1 % CREA 12/10 triamcinolone acetonide 75730075521 Norberto Miller Jr, MD SUMATRIPTAN SUCCINATE 25 MG TABS 12/10 sumatriptan succinate 19125371018 Norberto Miller Jr, MD BUSPIRONE HCL 15 MG TABS 12/10 buspirone 64026165139 Norberto Miller Jr, MD DIPHENOXYLATE-ATRO PINE 2.5-0.025 MG TABS 12/10 diphenoxylate-atr opine 85190685487 Norberto Miller Jr, MD TYRVAYA 0.03 MG/ACT SOLN 12/10 varenicline 99329200151 Norberto Miller Jr, MD ESCITALOPRAM OXALATE 10 MG TABS 12/10 escitalopram oxalate 55966290548 Norberto Miller Jr, MD LIDOCAINE VISCOUS HCL 2 % SOLN 12/10 lidocaine hcl 65782648503 Norberto Miller Jr, MD LIOTHYRONINE SODIUM 5 MCG TABS 12/10 liothyronine 89964817452 Norberto Miller Jr, MD HYDROMORPHONE HCL 2 MG TABS 12/10 hydromorphone 19735284159 Norberto Miller Jr, MD ROPINIROLE HCL 0.25 MG TABS 12/10 ropinirole 90163842308 Norberto Miller Jr, MD POLYMYXIN B-TRIMETHOPRIM 94026-2.1 UNIT/ML-% SOLN 12/10 polymyxin b sulf-trimethoprim 84968602514 Norberto Miller Jr, MD YUVAFEM 10 MCG TABS 12/10 estradiol 53591187086 Norberto Miller Jr, MD SULFAMETHOXAZOLE-T RIMETHOPRIM 800-160 MG TABS 12/10 sulfamethoxazole- trimethoprim 89718704358 Norberto Miller Jr, MD VALACYCLOVIR HCL 1 GM TABS 12/10 valacyclovir 11973690388 Norberto Miller Jr, MD LIDOCAINE 5 % PTCH lidocaine 48376107124 Norberto Miller Jr, MD TRIAMCINOLONE ACETONIDE 0.1 % PSTE triamcinolone acetonide 38177687445 Norberto Miller Jr, MD PROGESTERONE 100 MG CAPS TAKE ONE CAPSULE BY MOUTH AT BEDTIME* progesterone micronized 85790543379 Norberto Miller Jr, MD ESTRADIOL 1 MG TABS estradiol 77560837796 Norberto Miller Jr, MD DIPHENOXYLATE-ATRO PINE 2.5-0.025 MG TABS diphenoxylate-at r opine 85853486475 Norberto Miller Jr, MD LIOTHYRONINE SODIUM 5 MCG TABS liothyronine 99160046144 Norberto Miller Jr, MD MELOXICAM 15 MG TABS meloxicam 86120807837 Norberto Miller Jr, MD ONDANSETRON HCL 4 MG TABS ondansetron hcl 10466408362 Norberto Miller Jr, MD AMOXICILLIN 500 MG CAPS amoxicillin 36076490002 Norberto Miller Jr, MD HYDROMORPHONE HCL 2 MG TABS hydromorphone 37049521386 Norberto Miller Jr, MD YUVAFEM 10 MCG TABS estradiol 30319591301 Norberto Miller Jr, MD VILAZODONE HCL 20 MG TABS vilazodone 45914393075 Norberto Miller Jr, MD VILAZODONE HCL 10 MG TABS vilazodone 16329694652 Norberto Miller Jr, MD ESCITALOPRAM OXALATE 20 MG TABS escitalopram oxalate 56793298715 Norberto Miller Jr, MD BUSPIRONE HCL 15 MG TABS buspirone 21323200058 Norberto Miller Jr, MD TRAZODONE HCL 50 MG TABS trazodone 68898257433 Norberto Miller Jr, MD PREDNISONE 20 MG TABS prednisone 63459551820 Norberto Miller Jr, MD PROPRANOLOL HCL 20 MG TABS 08/10 propranolol 62595072399 Norberto Miller Jr, MD HYDROMORPHONE HCL 2 MG TABS 12/10 hydromorphone 61109521456 Norberto Miller Jr, MD ROPINIROLE HCL 0.25 MG TABS 12/10 ropinirole 36929691139 Norberto Miller Jr, MD ESCITALOPRAM OXALATE 20 MG TABS 12/10 escitalopram oxalate 46447801745 Norberto Miller Jr, MD TYRVAYA 0.03 MG/ACT SOLN 12/10 varenicline 75901632523 Norberto Miller Jr, MD YUVAFEM 10 MCG TABS 12/10 estradiol 89507321879 Norberto Miller Jr, MD CYCLOBENZAPRINE HCL 5 MG TABS Take 1/2-1 tablet by mouth every night at bedtime as directed start with 1/2 tab cyclobenzaprine 34947786212 Norberto Miller Jr, MD ESCITALOPRAM OXALATE 10 MG TABS 12/23 escitalopram oxalate 74206547614 Norberto Miller Jr, MD DULOXETINE HCL 30 MG CPEP 1 every morning 12/23 duloxetine 62913344583 Norberto Miller Jr, MD BUSPIRONE HCL 5 MG TABS 1 twice a day 12/23 buspirone 79898916186 Norberto Miller Jr, MD MELATONIN 10 MG TABS 1 by mouth every night 12/10 melatonin-lemon balm leaf extr 04354314028 Norberto Miller Jr, MD TRAZODONE HCL 50 MG TABS Prescribed by Family 12/23 TRAZODONE HCL Norberto Miller Jr, MD BUSPIRONE HCL 15 MG TABS 12/10 buspirone 03660509320 Norberto Miller Jr, MD ESCITALOPRAM OXALATE 10 MG TABS 12/10 escitalopram oxalate 83259285240 Norberto Miller Jr, MD LORAZEPAM 0.5 MG TABS 12/10 lorazepam 94579330813 Norberto Miller Jr, MD TRIAMCINOLONE ACETONIDE 0.1 % CREA 12/10 triamcinolone acetonide 96144842400 Norberto Miller Jr, MD SULFAMETHOXAZOLE-T RIMETHOPRIM 800-160 MG TABS 12/10 sulfamethoxazole- trimethoprim 09671263731 Norberto Miller Jr, MD PROPRANOLOL HCL 20 MG TABS 08/10 propranolol 87522889966 Norberto Miller Jr, MD LIOTHYRONINE SODIUM 5 MCG TABS 12/10 liothyronine 30077972340 Norberto Miller Jr, MD POLYMYXIN B-TRIMETHOPRIM 32567-9.1 UNIT/ML-% SOLN 12/10 polymyxin b sulf-trimethoprim 28080766233 Norberto Miller Jr, MD DIPHENOXYLATE-ATRO PINE 2.5-0.025 MG TABS 12/10 diphenoxylate-atr opine 11621518992 Norberto Miller Jr, MD LIDOCAINE VISCOUS HCL 2 % SOLN 12/10 lidocaine hcl 31980834392 Norberto Miller Jr, MD TRETINOIN 0.025 % CREA 12/10 tretinoin 46029176838 Norberto Miller Jr, MD SUMATRIPTAN SUCCINATE 25 MG TABS 12/10 sumatriptan succinate 68864102229 Norberto Miller Jr, MD VALACYCLOVIR HCL 1 GM TABS 12/10 valacyclovir 59740577580 Norberto Miller Jr, MD ESCITALOPRAM OXALATE 10 MG TABS 12/23 escitalopram oxalate 78663646218 Belle Jimenez PA-C MELATONIN 10 MG TABS 1 orally QHS 12/23 MELATONIN 92180370765 Norberto Miller Jr, MD CLOBETASOL PROPIONATE 0.05 % CREA Prescribed by Family SALAZAR 09/20 CLOBETASOL PROPIONATE 23715443754 Norberto Miller Jr, MD BETAMETHASONE VALERATE 0.1 % LOTN Prescribed by Family SALAZAR 09/20 BETAMETHASONE VALERATE 42603214769 Norberto Miller Jr, MD CEFUROXIME AXETIL 500 MG TABS Prescribed by Family SALAZAR 09/20 CEFUROXIME AXETIL 11653174652 Norberto Miller Jr, MD ARMOUR THYROID 30 MG TABS Prescribed by Family SALAZAR 09/20 THYROID 85490698142 Norberto Miller Jr, MD SERTRALINE HCL 100 MG TABS Prescribed by Family SALAZAR 09/20 SERTRALINE HCL 04409743612 Norberto Miller Jr, MD WELLBUTRIN XL 150 MG [id number] Prescribed by Family SALAZAR 09/20 BUPROPION HCL 34524230997 Norberto Miller Jr, MD DULOXETINE HCL 30 MG CPEP 1 QAM 12/23 DULOXETINE HCL 51472045608 Norberto Miller Jr, MD BUSPIRONE HCL 5 MG TABS 1 BID 12/23 BUSPIRONE HCL 02840834854 Norberto Miller Jr, MD GABAPENTIN 300 MG CAPS Prescribed by Family SALAZAR GABAPENTIN 80838624927 Norberto Miller Jr, MD CEFUROXIME AXETIL 500 MG TABS Prescribed by Family SALAZAR 08/24 CEFUROXIME AXETIL 47644509495 Zuleyma Cameron ARMOUR THYROID 30 MG TABS Prescribed by Family SALAZAR 09/20 THYROID 11819058962 Zuleyma Cameron GABAPENTIN 300 MG CAPS Prescribed by Family SALAZAR 08/24 GABAPENTIN 19300489385 Zuleyma Cameron SERTRALINE HCL 100 MG TABS Prescribed by Family SALAZAR 09/20 SERTRALINE HCL 68652028480 Zuleyma Cameron WELLBUTRIN XL 150 MG [id number] Prescribed by Family SALAZAR 09/20 BUPROPION HCL 93627193806 Zuleyma Cameron TRAZODONE HCL 50 MG TABS Prescribed by Family SALAZAR 12/23 TRAZODONE HCL 20017471119 Zuleyma Cameron BETAMETHASONE VALERATE 0.1 % LOTN Prescribed by Family SALAZAR 08/24 BETAMETHASONE VALERATE 50683356398 Zuleyma Ly CLOBETASOL PROPIONATE 0.05 % CREA Prescribed by Family SALAZAR 08/24 CLOBETASOL PROPIONATE 10422542669 Zuleyma Cameron Medications Administered No information available. [...] Procedures Code Procedure Name Date Entry Date 96052/50821/48519&53 Occipital Nerve Blo ck and Trigger Point Injections CPT-66274 Trigger point inj (3+ musc) CPT-J1100 Dexamethasone -- 10 mg 04/26 ORDERS Follow up [facility] telemedicine 2 ORDERS Dental Device Referral 12/10 ORDERS Sleep Hygiene Tips Handout 2 ORDERS Insomnia Handout ORDERS Patient Instructions ORDERS Patient Instructions ORDERS Patient Instructions SCT-[id number] Other Referral ORDERS Instructions for Staff 09/02 ORDERS Follow up Sleep [facility] telemedicine ORDERS Patient Instructions CPT-30479 Trigger point inj (3+ musc) CPT-J1100 Dexamethasone -- 10 mg 08/10 [id number] Other Radiology 89804/59437/72462&53 Occipital Nerve Blo ck and Trigger Point Injections ORDERS Follow up Extended telemedicine 1 ORDERS Patient Instructions SCT-[id number] Other Referral [facility]-[id number] Psychiatry Referral ORDERS Pain Clinic ORDERS Insomnia Handout ORDERS Sleep Hygiene Tips Handout 2 ORDERS Patient Instructions CPT-42579 PSG, 4+ parameters w / tech - 6yrs or older (41669) ORDERS Vitamin B12 ORDERS Vitamin D 25 Hydroxy ORDERS Patient Instructions SCT-[id number] Other Referral SCT-[id number] Psychology Referral ORDERS Instructions for Staff 11/28 ORDERS Lyme Total Ab w/Refl ex (reflex to Western Blot) ORDERS TSH ORDERS 2 weeks Actigraphy W atch w/ Sleep Journals (Call Sleep Lab) ORDERS Ferritin Serum ORDERS Overnight PSG - Sleep Study Overnight 07/17/19 ORDERS Telemedicine Follow up 11/08 ORDERS Ferritin Serum [facility]-[id number] Documentation of current medicatio ns ORDERS Other Handout ORDERS Patient Instructions ORDERS Patient Instructions ORDERS Instructions for Staff 11/08 ORDERS Telemedicine Follow up 09/20 CPT-16352 PSG, 4+ parameters w / tech - 6yrs or older (95171) ORDERS Sleep Study - [facility] 2 SCT-[id number] Documentation of current medicatio ns ORDERS T4 SCT-[id number] Other Referral ORDERS Lyme Total Ab w/Refl [...] TSH ORDERS Vitamin B12 ORDERS T3 Free CPT-85201 Nerve Conduction 7-8 studies CPT-61240 EMG with NCS (5+ muscles) - 1 limb 11/10 SCT-[id number] Documentation of current medicatio ns ORDERS Ferritin Serum ORDERS Patient Instructions ORDERS Other Test ORDERS Follow up ORDERS Vitamin B12 CPT-38747 Neuropsych assmnt w/ prov 4 hr CPT-0584475 Neuropsych assmnt w/ tech 3 hr ORDERS Follow up ORDERS Patient Instructions SCT-[id number] Documentation of current medicatio ns ORDERS Follow up ORDERS Patient Instructions SCT-[id number] Other Test CPT-00069 PSG, 4+ parameters w / tech - 6yrs or older (26743) CPT-28810 MRI Brain W/O SCT-[id number] Documentation of current medicatio ns SCT-721613283 Other Test SCT-[id number] Documentation of current medicatio ns ORDERS Ferritin Serum SCT-842747291 Other Referral ORDERS Follow up SCT-909300458 Other Test SCT-238384964 Other Referral SCT-[id number] Documentation of current medicatio ns Vital Signs [...]
--- OUTSIDE RECORDS SUMMARY | 2024-07-21 15:40 | XMS_ITS | Encounter Summary ---
Author Organization [facility] Address [address] [place] [address] Care Team Providers Care Spanish Language Lecturer Name Role Phone Kelsi Handy MD Unavailable [phone] Nivia Bruno MD Primary Care Provider [phone] Encounter Details Date Type Department Care Team ([facility] Contact Info) Description 09/25/2021 Telephone [facility] Behavioral Health Intake [address] [place] [phone] Generic, Behavioral Intake, Social History Tobacco Use Types Packs/Day Years Used Date Smoking Tobacco: Never Smokeless Tobacco: Never Alcohol Use Standard Drinks/Week Comments No 0 (1 standard drink = 0.6 oz pur e alcohol) PHQ-2 Answer Date Recorded PHQ-2 Score 2 06/13/2021 Comments No Sex and Gender Information Value Date Recorded Sex Assigned at Not on file Legal Sex Female 3:16 AM TACTICAL/MOBILE WATCH OFFICER Gender Identity Not on file Sexual Orientation Not on file documented as of this encounter Miscellaneous Notes * Telephone Encounter - Rafael Cota - 09/25/2021 12:00 PM CDT ----- Message from SHANNON Warner sent at 09/25/2021 11:03 AM CDT ----- Regarding: add appointment Scheduling Request Patient Name: ?? Location of programming: [facility] Start Date: 09/27/21 Group (BHxxxxx on #days of the week# at #start time to end time#): 55+ clinic 1 Provider (name of MD):kerry Number of visits to be scheduled: 1 Duration of Appointment in minutes: 120 mins Visit Type (Amwell - 1122 / Zoom - 2657 / In-person or Treatment - 870) :zoom 2657 Additional notes: documented in this encounter Plan of Treatment Not on file documented as of this encounter Visit Diagnoses Not on filedocumented in this encounter Additional Health Concerns Assessment Noted Time PHQ-9 Depression Total Score: 7 06/14/19 22 10:59 AM TACTICAL/MOBILE WATCH OFFICER documented as of this encounter Care Teams Spanish Language Lecturer Relationship Specialty Start Date End Date Nivia Bruno MD [address] [place] [address] PCP - General 03/22/21 Kelsi Handy MD [address] [place] [address] Assigned OBGYN Provider 04/23/20 3 documented as of this encounter
--- OUTSIDE RECORDS SUMMARY | 2024-07-21 15:40 | XMS_ITS | Encounter Summary ---
Author Organization [facility] Address [address], [place] [address] Care Team Providers Care Cigarette Vendor Name Role Phone Needs Pcp, Assignment Primary Care Provider [phone] Encounter Details Date Type Department Care Team (Late st Contact Info) Description 07/12/2019 Lab Requisition [facility] [address] [facility]. [place], [place] [address] Lul Hunter MD [address] [place], [place] [phone] Encounter for surgical aftercare following surgery on [...] BASIC METABOLIC PANEL Routine 07/13/2019 7:00 AM CHIEF WHEELAGE CLERK Encounter for surgical aftercare following surgery on the nervous system COMPLETE BLOOD COUNT-NO DIFF Routine 07/13/2019 7:00 AM CHIEF WHEELAGE CLERK Encounter for surgical aftercare following surgery on the nervous system documented in this encounter Results * (ABNORMAL) Basic Metabolic Panel (07/13/2019 7:00 AM CHIEF WHEELAGE CLERK) Sodium 136 136 - 145 mmol/L 07/13/2019 12:35 PM CHIEF WHEELAGE CLERK [facility] Potassium 4.7 3.5 - 5.1 mmol/L 07/13/2019 12:35 PM CHIEF WHEELAGE CLERK [facility] Chloride 100 98 - 109 mmol/L 07/13/2019 12:35 PM CHIEF WHEELAGE CLERK [facility] CO2 27 20 - 29 mmol/L 07/13/2019 12:35 PM CHIEF WHEELAGE CLERK [facility] Anion Gap 9 7 - 16 mmol/L 07/13/2019 12:35 PM CHIEF WHEELAGE CLERK [facility] Calcium 9.2 8.4 - 10.4 mg/dL 07/13/2019 12:35 PM CHIEF WHEELAGE CLERK [facility] BUN 18 7 - 26 mg/dL 07/13/2019 12:35 PM CHIEF WHEELAGE CLERK [facility] Creatinine 0.76 0.55 - 1.02 mg/dL 07/13/2019 12:35 PM CHIEF WHEELAGE CLERK [facility] GFR, Estimated >60 >60 mL/min/1.7 3m2 07/13/2019 12:35 PM CHIEF WHEELAGE CLERK [facility] GFR, Est If >60 >60 mL/min/1.7 3m2 07/13/2019 12:35 PM CHIEF WHEELAGE CLERK [facility] Glucose 105(H) 70 - 100 mg/dL 07/13/2019 12:35 PM CHIEF WHEELAGE CLERK [facility] Comment:The given reference range is for the fasting state. Non-fasting reference range for glucose is 70 - 180 mg/dL. Hours Fasting Unknown 07/13/2019 12:35 PM CHIEF WHEELAGE CLERK [facility] Blood Venipuncture / Unknown 07/13/2019 7:00 AM CHIEF WHEELAGE CLERK 07/13/2019 10:40 AM CHIEF WHEELAGE CLERK us Lul Hunter MD LAB_1 Final Result [facility] [address] * (ABNORMAL) Complete Blood Count-No Diff (07/13/2019 7:00 AM CHIEF WHEELAGE CLERK) WBC 4.7 3.5 - 10.5 x10(9)/L 07/13/2019 11:17 AM CHIEF WHEELAGE CLERK [facility] RBC 3.19(L) 3.90 - 5.03 x10(12)/L 07/13/2019 11:17 AM CHIEF WHEELAGE CLERK [facility] Hemoglobin 10.1(L) 12.0 - 15.5 g/dL 07/13/2019 11:17 AM CHIEF WHEELAGE CLERK [facility] HCT 31.2(L) 34.9 - 44.5 % 07/13/2019 11:17 AM CHIEF WHEELAGE CLERK [facility] MCV 97.8 80.0 - 100.0 fL 07/13/2019 11:17 AM CHIEF WHEELAGE CLERK [facility] MCH 31.7 27.6 - 33.3 pg 07/13/2019 11:17 AM CHIEF WHEELAGE CLERK [facility] MCHC 32.4 31.5 - 35.2 g/dL 07/13/2019 11:17 AM CHIEF WHEELAGE CLERK [facility] RDW 11.7(L) 11.9 - 15.5 % 07/13/2019 11:17 AM CHIEF WHEELAGE CLERK [facility] Platelets 221 150 - 450 x10(9)/L 07/13/2019 11:17 AM CHIEF WHEELAGE CLERK [facility] Automated NRBC 0 <=0 /100 WBC 07/13/2019 11:17 AM CHIEF WHEELAGE CLERK [facility] Blood Venipuncture / Unknown 07/13/2019 7:00 AM CHIEF WHEELAGE CLERK 07/13/2019 10:44 AM CHIEF WHEELAGE CLERK us Lul Hunter MD LAB_1 Final Result Performing Organization Address City/State/[facility] Co de Phone Number [facility] [address] [place] [address], [facility] documented in this encounter Visit Diagnoses Diagnosis Encounter for surgical aftercare following surgery on the nervous system documented in this encounter Care Teams Cigarette Vendor Relationship Specialty Start Date [place] [address] PCP - General 02/28/21 documented as of this encounter
--- OUTSIDE RECORDS SUMMARY | 2024-07-21 15:40 | XMS_ITS | Encounter Summary ---
Author Organization [facility] Address [address], [place] [address] Care Team Providers Care Engraver Wood Name Role Phone Needs Pcp, Assignment Primary Care Provider [phone] Encounter Details Date Type Department Care Team (Late st Contact Info) Description 07/16/2019 Lab Requisition [facility] [address] [facility]. [place], [place] [phone] Lul Hunter MD [address] [place], [place] [phone] Encounter for surgical aftercare following surgery on [...] organs documented in this encounter Care Teams Engraver Wood Relationship Specialty Start Date End Date Needs Pcp, [place], [place] [address] PCP - General 02/28/21 documented as of this encounter
--- NOTE | 2024-07-21 15:50 | ED_ITS ---
HPI - General Adult General Time Seen by Provider: 15:50 Date Seen: 07/21/24 Chief complaint: Unspecified Complaint, Adult Stated complaint: R arm bandage coming off Time Seen by Provider: 07/21/24 15:49 Source: patient, RN notes reviewed and old records reviewed Mode of arrival: ambulatory Limitations: no limitations History of Present Illness HPI narrative: This 64-year-old female is coming in because her bandage on her left elbow is falling off. This was placed in the ER last night. Have reviewed that note. She states she cannot get the bandage to stay up. She states she was told to leave it on for few days. She was told to keep this on for few days and thus is coming in to get a bandage. Related Data Home Medications ?Medication ?Instructions ?Recorded ?Confirmed clobetasol 0.05 % topical ointment 1 applic topical .qod 11/21/21 07/16/24 liothyronine 5 mcg tablet 5 mcg PO .B.i.d. 11/21/21 07/16/24 lorazepam 0.5 mg tablet 0.5 mg PO Q12H PRN 12/08/21 07/16/24 melatonin 3 mg capsule 9 mg PO HS 12/08/21 07/16/24 trazodone 50 mg tablet 100 mg PO QHS PRN 01/17/23 07/16/24 buspirone 15 mg tablet 15 mg PO BID 03/25/23 07/16/24 cyclosporine 0.05 % eye drops in a drp ophthalmic (eye) 03/25/23 07/16/24 dropperette lidocaine HCl 2 % mucosal solution PO 03/25/23 07/16/24 (Lidocaine Viscous) tretinoin 0.025 % topical cream 1 applic topical QPM 03/25/23 07/16/24 valacyclovir 1 gram tablet 1,000 mg PO 3XD 03/25/23 07/16/24 varenicline tartrate 0.03 mg/spray intranasal 03/25/23 07/16/24 metered nasal spray (Tyrvaya) cyclobenzaprine 5 mg tablet 5 mg PO QPM PRN 09/17/23 07/16/24 vilazodone 20 mg tablet 20 mg PO DAILY 11/10/23 07/16/24 rosuvastatin 5 mg tablet 5 mg PO DAILY 02/04/24 07/16/24 Previous Rx's ?Medication ?Instructions ?Recorded Lactobacillus acidophilus 0.5 mg 1 tab PO TIDWM 90 days #90 tabs 12/10/21 (100 million cell) tablet hydromorphone 2 mg tablet 2 mg PO Q4H PRN 5 days #30 tabs 12/10/21 albuterol sulfate 90 mcg/actuation 2 puff inhalation Q4-6H PRN 03/05/23 aerosol inhaler shortness of breath or wheezing #8.5 grams triamcinolone acetonide 0.025 % 1 applic topical BID #15 grams 03/25/23 topical cream estradiol 10 mcg vaginal tablet 10 mcg vaginal 2XW #24 tabs 11/04/23 (Yuvafem) estradiol 1 mg tablet 0.5 mg (1/2 x 1 mg) PO QDAY #45 11/05/23 tabs ondansetron HCl 4 mg tablet 4 mg PO Q6H #10 tabs 11/11/23 fluconazole 150 mg tablet 150 mg PO Q3D 2 doses #2 tabs 02/06/24 progesterone micronized 100 mg 100 mg PO QHS #90 caps 04/27/24 capsule hydromorphone 2 mg tablet 2 mg PO Q6H PRN pain #8 tabs 07/21/24 Allergies Allergy/AdvReac Type Severity Reaction Status Date / Time auranofin Allergy Verified 01/09/24 11:25 cat dander Allergy Verified 01/09/24 11:25 Gadolinium-Containing Allergy Verified 01/09/24 11:25 Contrast Medi gluten Allergy Verified 01/09/24 11:25 gold keratinate Allergy Verified 01/09/24 11:25 gold sodium thiomalate Allergy Verified 01/09/24 11:25 ketamine Allergy Verified 02/06/24 16:42 lactose Allergy Verified 01/09/24 11:25 Opioids - Morphine Analogues Allergy Verified 01/09/24 11:25 goldshots Allergy Severe Anaphylaxis Uncoded 01/09/24 11:25 Review of Systems Narrative: As per HPI. [facility] Medical History Herpes zoster ?B02.9 - Zoster without complications (ICD-10) Diverticulitis ?K57.92 - Diverticulitis of intestine, part unspecified, without perforation or abscess without bleeding (ICD-10) Closed T12 fracture ?S22.089A - Unspecified fracture of T11-T12 vertebra, initial encounter for closed fracture (ICD-10) History of Clostridioides difficile colitis ?Z86.19 - Personal history of other infectious and parasitic diseases (ICD- 10) History of hypothyroidism ?Z86.39 - Personal history of other endocrine, nutritional and metabolic disease (ICD-10) History of diverticulitis of colon (05/09/11) ?Z87.19 - Personal history of other diseases of the digestive system (ICD-10) History of Clostridioides difficile infection ?Z86.19 - Personal history of other infectious and parasitic diseases (ICD- 10) Abscess of sigmoid colon due to diverticulitis ?K57.20 - Diverticulitis of large intestine with perforation and abscess without bleeding (ICD-10) Osteoporosis ?M81.0 - Age-related osteoporosis without current pathological fracture (ICD- 10) Sigmoid diverticulitis ?K57.32 - Diverticulitis of large intestine without perforation or abscess without bleeding (ICD-10) History of femur fracture ?Z87.81 - Personal history of (healed) traumatic fracture (ICD-10) Insomnia ?G47.00 - Insomnia, unspecified (ICD-10) Anxiety ?F41.9 - Anxiety disorder, unspecified (ICD-10) Sarcoidosis ?D86.9 - Sarcoidosis, unspecified (ICD-10) Hypothyroidism ?E03.9 - Hypothyroidism, unspecified (ICD-10) Sensorineural hearing loss (SNHL) of both ears ?H90.3 - Sensorineural hearing loss, bilateral (ICD-10) Depression ?F32.A - Depression, unspecified (ICD-10) Chronic fatigue syndrome ?R53.82 - Chronic fatigue, unspecified (ICD-10) 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 - Unspecified juvenile rheumatoid arthritis of unspecified site (ICD- 10) Migraines ?G43.909 - Migraine, unspecified, not intractable, without status migrainosus (ICD-10) Diverticulitis of intestine with abscess ?K57.80 - Diverticulitis of intestine, part unspecified, with perforation and abscess without bleeding (ICD-10) Surgical History History of total knee replacement ?Z96.659 - Presence of unspecified artificial knee joint (ICD-10) S/P hammer toe correction ?Z98.890 - Other specified postprocedural states (ICD-10) ?Z87.39 - Personal history of other diseases of the musculoskeletal system and connective tissue (ICD-10) History of repair of rotator cuff ?Z98.890 - Other specified postprocedural states (ICD-10) History of tonsillectomy ?Z90.89 - Acquired absence of other organs (ICD-10) History of total hip arthroplasty ?Z96.649 - Presence of unspecified artificial hip joint (ICD-10) History of bilateral knee arthroplasty ?Z96.653 - Presence of artificial knee joint, bilateral (ICD-10) Family History Father High blood pressure Hyperlipidemia Mother High blood pressure Hyperlipidemia Sister Seizure disorder Social History Narrative: She lives alone in [place]. 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 She does not smoke. She drinks alcohol about once a month. She uses no recreational drugs. She does have a history of chemical dependency. Healthcare power of traffic law attorney is her sister Denise. Code status is full. Are you following a special diet: Yes (no gluten, lactose intolerent) Highest level of school completed/degree received: Master's degree Smoking Status: Never smoker Do you use any of these nicotine containing products: None Second hand tobacco smoke exposure: No How often do you have a drink containing alcohol: monthly or less AUDIT-C Alcohol total score: 1 Non-prescribed substance use: denies use Caffeine: Yes (coffee 3x weekly) Are you now , , , , never or living with a partner: Social isolation score (0-1 are the most socially isolated patients): 0 Are you currently sexually active: No service: No Exam Const: Vital Signs, click to edit/add: Vital Signs - 24 hr 07/21/24 15:56 Temperature 98.5 F Pulse Rate [Pulse Oximeter] 79 Respiratory Rate 18 Blood Pressure [Ri ght Upper Arm] 157/79 H Pulse Oximetry 93 Oxygen Delivery Me thod Room Air Patient's gauze bandage is down around her forearm. She has ecchymosis and a non infected wound overlying the left outer elbow area. No concerns for infection at this time, seems to be mobilizing this well. Documenting provider has reviewed patient's vital signs: yes Course Course ED Course: We will apply a bandage. I think gauze as is going to continue to slipped down over this joint area. I do not see that she needs any other intervention. Vital Signs Vital signs: Initial Vital Signs Temperature 98.5 F 07/21/24 15:56 Temperature Source Temporal Artery Scan 07/21/24 15:56 Pulse Rate 79 07/21/24 15:56 Respiratory Rate 18 07/21/24 15:56 Blood Pressure 157/79 H 07/21/24 15:56 Blood Pressure Mean 105 07/21/24 15:56 Pulse Oximetry 93 07/21/24 15:56 Oxygen Delivery Method Room Air 07/21/24 15:56 Vital Signs Temperature 98.5 F 07/21/24 15:56 Pulse Rate 79 07/21/24 15:56 Respiratory Rate 18 07/21/24 15:56 Blood Pressure 157/79 H 07/21/24 15:56 Pulse Oximetry 93 07/21/24 15:56 Oxygen Delivery Method Room Air 07/21/24 15:56 Temperature 98.5 F 07/21/24 15:56 Pulse Rate 79 07/21/24 15:56 Respiratory Rate 18 07/21/24 15:56 Blood Pressure 157/79 H 07/21/24 15:56 Pulse Oximetry 93 07/21/24 15:56 Oxygen Delivery Method Room Air 07/21/24 15:56 Discharge Plan Discharge Clinical Impression: Elbow injury Patient Disposition: Home, Self-Care Condition: Stable Additional Instructions: Can apply bandages twice daily and if otherwise needed. Continue to follow wound care as outlined at your prior ED visit. If concerns for infection, seek re-evaluation. Prescriptions: No Action trazodone 50 mg tablet 100 mg PO QHS PRN Tyrvaya 0.03 mg/spray spray, metered, non-aerosol intranasal Patient Comments: [NO ORIGINAL SIG] cyclosporine 0.05 % dropperette ophthalmic (eye) lidocaine HCl [Lidocaine Viscous] 2 % solution PO tretinoin 0.025 % cream 1 applic topical QPM buspirone 15 mg tablet 15 mg PO BID valacyclovir 1 gram tablet 1,000 mg PO 3XD triamcinolone acetonide 0.025 % cream 1 applic topical BID Qty: 15 0RF Rx Instructions: Apply small amount to affected area cyclobenzaprine 5 mg tablet 5 mg PO QPM PRN vilazodone 20 mg tablet 20 mg PO DAILY fluconazole 150 mg tablet 150 mg PO Q3D Qty: 2 0RF Rx Instructions: may repeat second dose 72 hrs after first dose if symptoms persist albuterol sulfate 90 mcg/actuation HFA aerosol inhaler 2 puff inhalation Q4-6H PRN (Reason: shortness of breath or wheezing) Qty: 8.5 0RF estradiol [Yuvafem] 10 mcg tablet 10 mcg vaginal 2XW Qty: 24 3RF ondansetron HCl 4 mg tablet 4 mg PO Q6H Qty: 10 0RF rosuvastatin 5 mg tablet 5 mg PO DAILY hydromorphone 2 mg tablet 2 mg PO Q6H PRN (Reason: pain) Qty: 8 0RF liothyronine 5 mcg tablet 5 mcg PO .B.i.d. clobetasol 0.05 % ointment 1 applic TOPICAL .qod lorazepam 0.5 mg tablet 0.5 mg PO Q12H PRN melatonin 3 mg capsule 9 mg PO HS hydromorphone 2 mg Tablet 2 mg PO Q4H PRN5 Days Qty: 30 0RF Lactobacillus acidophilus 0.5 mg (100 million cell) Tablet 1 tab PO TIDWM 90 Days Qty: 90 0RF estradiol 1 mg tablet 0.5 mg PO QDAY Qty: 45 3RF Rx Instructions: Take 1/2 tab (0.5 mg) daily. progesterone micronized 100 mg capsule 100 mg PO QHS Qty: 90 2RF Follow Up/Referrals: Nivia Bruno MD [Primary Care Provider] - Stand Alone Forms: [facility] Info Instructions
[2024-07-21 15:56] VITALS: BP 157/79; PULSE 79; RESP 18; TEMP 36.9; O2SAT 93
--- OUTSIDE RECORDS SUMMARY | 2024-07-21 16:01 | XMS_ITS | Encounter Summary ---
Author Organization [facility] Address [address] [place] [address] Care Team Providers Care Underwear Cutter Name Role Phone Kelsi Handy MD Unavailable [phone] Nivia Bruno MD Primary Care Provider [phone] Encounter Details Date Type Department Care Team ([facility] Contact Info) Description 06/13/2021 Telephone [facility] Behavioral Health Intake [address] [place] [id number] Generic, Behavioral Intake, Social History Tobacco Use Types Packs/Day Years Used Date Smoking Tobacco: Never Smokeless Tobacco: Never Alcohol Use Standard Drinks/Week Comments No 0 (1 standard drink = 0.6 oz pur e alcohol) PHQ-2 Answer Date Recorded PHQ-2 Score 2 06/13/2021 Comments No Sex and Gender Information Value Date Recorded Sex Assigned at Not on file Legal Sex Female 3:16 AM SPEECH COACH Gender Identity Not on file Sexual Orientation Not on file documented as of this encounter Miscellaneous Notes * Telephone Encounter - Rafael Cota - 06/29/2021 12:06 PM CST ----- Message from KETTY Lynn sent at 06/29/2021 11:41 AM SPEECH COACH ----- Regarding: new start Clinic 1 on 07/05 Scheduling Request Patient Name: Juliette Brown Location of programmin[facility] Start Date: June Group: Clinic 1 on at 1:00 to 3:00PM Attending Provider (MD): 12 Number of visits to be scheduled: 12 Duration of Appointment in minutes: 120 min Visit Type: Zoom - 2657 Additional notes: CH COACH * Telephone Encounter - Jen Serrano - 06/13/2021 9:38 AM CST ----- Message from SHANNON Warner sent at 06/13/2021 9:12 AM SPEECH COACH ----- Regarding: add appointment Scheduling Request Patient Name: ?? Location of programming: [facility] 55+ Start Date:06/13/21 Group (BHxxxxx on #days of the week# at #start time to end time#): 55+ B1 M,W,F 1-4pm Provider (name of MD): Niall Number of visits to be scheduled: 1 Duration of Appointment in minutes: 180 mins Visit Type ([place]well - 2702 / Zoom - 2657 / In-person or Treatment - 870) :2657-zoom Additional notes: CH COACH documented in this encounter Plan of Treatment Not on file documented as of this encounter Visit Diagnoses Not on filedocumented in this encounter Additional Health Concerns Assessment Noted Time PHQ-9 Depression Total Score: 7 06/14/19 22 10:59 AM SPEECH COACH documented as of this encounter Care Teams Underwear Cutter Relationship Specialty Start Date End Date Nivia Bruno MD [address] [place] [address] PCP - General 03/22/21 Kelsi Handy MD [address] [place] [address] Assigned OBGYN Provider 04/23/20 3 documented as of this encounter
--- OUTSIDE RECORDS SUMMARY | 2024-07-21 16:01 | XMS_ITS ---
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, SNOMED CT) Severe 07/28/2019 active Gadolinium Unknown 07/20/2019 active Cat dander Unknown 07/28/2019 active 1227 RXNORM Auranofin Unknown 07/20/2019 active Care Team Name Role Address Phone Organization Dates Alpa Keith Attending Physician [address] [place], [address], [place] (Office): : (Pager): [facility] 04/01/2022 - 04/15/2022 Immunizations Immunization Status Vaccine Details Vaccine Code CodeSystem Date Notes Influenza completed Influenza, high-dose, split virus, quadrivalent, injectable, preservative free 197 CVX created date: 2 administe red date: 2 TB 2 Step Mantoux Skin Test completed tuberculin skin test; unspecified formulation lotNumber: [id number] expiry: 10/10/2024 Mfg: [employer]i Given 0.1 ml Right Forearm intradermally Step 1 of Multi-step with next step required 98 CVX created date: 2 consent date: 2 administe red date: 2 Educated by Nila Bates on 04/01/2022 TB 2 Step Mantoux Skin Test completed tuberculin skin test; unspecified formulation lotNumber: [id number] expiry: 07/09/2020 Mfg: par Given 0.1 ml [...] End Date Estrace Tablet 0.5 MG active 443651 RXNORM 1 tablet Oral in the morning Routine Give 1 tablet by mouth in the mornin g for . 2021 - Ketoconazole Cream 2 % active 496503 RXNORM n/a n/a Topical as needed PRN Apply to affect ed area topica lly as needed for . once daily 2021 - Miconazole Nitrate Cream 2 % active 000889 RXNORM n/a n/a Topical two times a day Routine Apply to vulva, rectal area topica lly two times a day for candid al skin infect ion 2021 - Liothyronine Sodium Tablet 5 MCG active 476526 RXNORM 1 tablet Oral two times a day Routine Give 1 tablet by mouth two times a day for hypoth yroidi sm 2021 - Betamethasone Dipropionate Cream 0.05 % active 875517 RXNORM n/a n/a Topical in the afternoon Routine Apply to affect ed area topica lly in the aftern oon for lichen sclero reyna 2021 - Zofran ODT Tablet Disintegratin g 4 MG active 391787 RXNORM 4 mg Oral as needed PRN Give 4 mg by mouth every 8 hours as needed for nausea place on tongue 2021 - Tretinoin Cream 0.025 % active 972259 RXNORM n/a n/a Topical at bedtime Routine Apply to affect ed area topica lly at bedtim e for sun-da supriya skin 2021 - Melatonin Tablet 10 MG active 1501224 RXNORM 10 mg Oral at bedtime Routine Give 10 mg by mouth at bedtim e for insomn ia 2021 - Multivitamin Tablet active 1 tablet Oral in the morning Routine Give 1 tablet by mouth in the mornin g for supple ment 2021 - Mosca-3 Fatty Acids Capsule active 2000 mg Oral in the morning Routine Give 2000 mg by mouth in the mornin g for supple ment 2021 - Sodium Chloride Solution 0.65 % active 784803 RXNORM 1 spray Nasal as needed PRN 1 spray in both nostri ls every 2 hours as needed for hayfev er 2021 - Zoloft Tablet 50 MG active 824024 RXNORM 50 mg Oral in the morning Routine Give 50 mg by mouth in the mornin g for KATY 2021 - Prometrium Capsule 100 MG active 909513 RXNORM 100 mg Oral at bedtime Routine Give 100 mg by mouth at bedtim e for . 2021 - Albuterol Sulfate HFA Aerosol Solution 108 (90 Base) MCG/ACT active 5702600 RXNORM 2 puff Inhalat ion as needed [...] 2021 - MiraLax Packet 17 GM active 926275 RXNORM 17 gram Oral in the evening Routine Give 17 gram by mouth in the evenin g for consti pation AND Give 17 gram by mouth as needed for consti pation qd prn 2021 - 518393 RXNORM 17 gram Oral as needed PRN Give 17 gram by mouth in the evenin g for consti pation AND Give 17 gram by mouth as needed for consti pation qd prn 2021 - busPIRone HCl Tablet 10 MG active 465025 RXNORM 10 mg Oral two times a day Routine Give 10 mg by mouth two times a day for depres lillie 2021 - Dilaudid Tablet 2 MG active 573979 RXNORM 1 mg Oral as needed PRN Give 1 mg by mouth as needed for pain tid prn 2021 - traZODone HCl Tablet 50 MG active 631994 RXNORM 1 tablet Oral as needed PRN Give 1 tablet by mouth as needed for insomn ia until 2021 23:59 can have if 1st dose not effect mathieu AND Give 1 tablet by mouth at bedtim e for insomn ia 04/24 387908 RXNORM 1 tablet Oral at bedtime Routine Give 1 tablet by mouth as needed for insomn ia until 2021 23:59 can have if 1st dose not effect mathieu AND Give 1 tablet by mouth at bedtim e for insomn ia 2021 - Senna Plus Tablet 8.6-50 MG active 301097 RXNORM 2 tablet Oral one time a [...] Code CodeSystem Concern Status 1 INSOMNIA, UNSPECIFIED 713362451 SNOMED CT active 2 CHRONIC FATIGUE, UNSPECIFIED 54037824 SNOMED CT active 3 DIFFICULTY IN WALKING, NOT ELSEWHERE CLASSIFIED 800716512 SNOMED CT active [address] active 5 MUSCLE WEAKNESS (GENERALIZED) 75615217 SNOMED CT active 6 ACUTE CANDIDIASIS OF VULVA AND VAGINA 148573791 SNOMED CT active 7 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 OR ABSCESS WITHOUT BLEEDING 27500112 SNOMED CT active [address] active 9 ENCOUNTER FOR SURGICAL AFTERCARE FOLLOWING SURGERY ON THE DIGESTIVE SYSTEM 993287475 SNOMED CT active 10 HYPOTHYROIDISM, UNSPECIFIED 65714969 SNOMED CT active 11 MAJOR DEPRESSIVE DISORDER, RECURRENT, MODERATE 98271783 SNOMED CT active 12 MIGRAINE, UNSPECIFIED, NOT INTRACTABLE, WITHOUT STATUS MIGRAINOSUS 78192798 SNOMED CT active 13 OTHER ABNORMAL GLUCOSE 802536630 SNOMED CT active 14 OTHER INTERVERTEBRAL DISC DEGENERATION, LUMBOSACRAL REGION 85389970 SNOMED CT active 15 OTHER NONSPECIFIC ABNORMAL FINDING OF LUNG FIELD 767995841 SNOMED CT active 16 PERSONAL HISTORY OF (HEALED) TRAUMATIC FRACTURE 545707997 SNOMED CT active 17 SENSORINEURAL HEARING LOSS, BILATERAL 462022188 SNOMED CT active 18 UNSPECIFIED OSTEOARTHRITIS, UNSPECIFIED SITE 428268722 SNOMED CT active 19 UNSPECIFIED TEMPOROMANDIBULAR JOINT DISORDER, UNSPECIFIED SIDE 68939215 SNOMED CT active 20 URGENCY OF URINATION 87713830 SNOMED CT active 21 URINARY TRACT INFECTION, SITE NOT SPECIFIED 16060153 SNOMED CT active 22 ANEMIA, UNSPECIFIED 04/01/[address] completed 23 ANXIETY DISORDER, UNSPECIFIED 277050449 SNOMED CT active 24 CHRONIC FATIGUE, UNSPECIFIED 04/01/[address] completed 25 DIFFICULTY IN WALKING, NOT ELSEWHERE CLASSIFIED 04/01/[address] completed 26 ENTEROCOLITIS DUE TO CLOSTRIDIUM DIFFICILE, NOT SPECIFIED RECURRENT 04/01/[address] completed 27 FIBROMYALGIA 04/01/[address] completed 28 HYPERLIPIDEMIA, UNSPECIFIED 04/01/[address] completed 29 MAJOR DEPRESSIVE DISORDER, RECURRENT, UNSPECIFIED 04/01/[address] completed 30 MUSCLE WEAKNESS (GENERALIZED) 04/01/[address] completed 31 OTHER SPECIFIED DISORDERS OF BONE DENSITY AND STRUCTURE, UNSPECIFIED SITE 04/01/[address] completed 32 RESISTANCE TO MULTIPLE ANTIBIOTICS 04/01/[address] completed 33 SARCOIDOSIS OF LUNG 04/01/[address] completed 34 UNSPECIFIED FRACTURE OF LOWER END OF RIGHT FEMUR, SUBSEQUENT ENCOUNTER FOR CLOSED FRACTURE WITH NONUNION 04/01/[address] completed Reason for Referral No Reasons for Referral Entered Social History Social History Observation Description Start Date End Date Code Code System Current Smoking Status Tobacco smoking consumption unknown 063748281 SNOMED CT Sex Assigned At Female 1960 46953-[address] [facility] Vital Signs Code Code System Vitals Name Values and Units Timing Information 8462-[address] [facility] Blood Pressure-Diastolic Value=71 Un its=mmHg 04/15/2022 8480-[address] [facility] Blood Pressure-Systolic Fhlwl=958 Un its=mmHg 04/15/2022 8310-[address] [facility] Body Temperature Value=97.2 Units= F 04/15/2022 8867-[address] [facility] Heart rate Value=99.0 Units=/min 09/2021 29385-[address] [facility] O2 % BldC Oximetry Value=98.0 Units= % 04/15/2022 9279-[address] [facility] Respiratory Rate Value=16.0 Units=/m in 04/14/2022 05235-[address] [facility] Pain Level Value=0.0 04/14/2022 26373-3 [facility] Weight Snhqn=659.3 Units=Lbs 08/2021 8302-2 [facility] Height Value=68.0 Units=Inches 07/21/2019
--- OUTSIDE RECORDS SUMMARY | 2024-07-21 16:02 | XMS_ITS | Clinical Summary ---
Author Organization [facility] Address [address] [place] [address] Care Team Providers Care Tax Services Intern Name Role Phone Monica Bruno MD Primary Care Provider [phone] Judie Carreno PharmD Unavailable [phone] Allergies Active Allergy Reactions Criticality Noted Date [...] injury due to substance overdose Inhale 1 Adena into affected nostril(s) each time if needed [...] Apple Cider Vinegar - PRN NN Ultimate Corrigan-3 - daily Body Bio Balance Oil (omega-3/omega-6 [...] 10/11/2016 04/22/2022 Overview (10/11/2016): Signed 04/23/16 Dr. 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 3 Dysthymic disorder 11/26/2007 6 Unspecified drug dependence, in remission 01/25/2022 Encounters Date Type Department Care Team Description 07/21/[address] [address] Facundo Mijares MD Appointment 07/21/2024 Orders Only [facility] SERVICES Scanner 1 scan: (1-Ord) [facility], XR RIBS R, W/ CXR, 07/21/2024 07/20/[address] [address] Freda Serrano MD Mental Health Issue 07/19/[address] [address] Freda Serrano MD Parasites 07/19/[address] [address] Maria G Villavicencio DO Results 07/19/[address] [address] Maria G Villavicencio DO Results 07/16/2024 11:25 AM LEATHER SKINNER Office Visit [address] [address] Maria G Villavicencio, Nose Problem (States she has worms in her nose-she states she has fresh samples brought in) 07/16/2024 9:00 AM LEATHER SKINNER Ancillary Procedure [facility] [address] [place] [address] Arrived 07/16/2024 8:10 AM LEATHER SKINNER Procedure Only [facility] [address] [place] [address] Facundo Mijares MD Procedure (Ultrasound guided injection lef... 07/16/[address] [address] Facundo Mijares MD Results (xray ) 07/15/2024 10:30 AM LEATHER SKINNER Procedure Only [address] [address] Tyler Parson L Ac Acupuncture 07/15/[address] [address] Kourtney Cherry PA appointment (Medication ) 07/15/[address] [address] Monica Bruno MD Error-please disregard 07/15/2024 Telephone [facility] [address] [place] [address] Monica Bruno MD Callback (Call the patient ) 07/15/2024 Travel 07/15/2024 Nurse Triage [facility] [address] [place] [address] Tomas Mckeon MD Error-please disregard 07/13/2024 1:00 PM LEATHER SKINNER Phone Office Visit [facility] [address] [place] [address] Keiko Downs, [facility] Individual Therapy; Phone Visit 07/13/2024 Nurse Triage [facility] [address] [place] [address] Monica Bruno MD Sinus Problem; Worms in nasal cavity 07/13/2024 Telephone [facility] [address] [place] [address] Monica Bruno MD Foreign Body (Worms coming out of nose) 07/13/2024 Travel 07/09/2024 3:30 PM LEATHER SKINNER Office Visit [facility] [address] [place] [phone] Mehran Norman MD Consult (Calcified atheromatous plaque, Edema in both legs per Dr. Bruno ) 07/09/2024 11:00 AM LEATHER SKINNER Procedure Only [facility] [address] [place] [address] Tyler Parson L Ac Acupuncture 07/09/2024 Telephone [facility] [address] [place] [address] Mehran Norman MD Follow Up (PCSK9 barrera check) 07/09/2024 Travel 07/08/2024 Telephone [facility] [address] [place] [address] Monica Bruno MD return call 07/08/2024 Orders Only [facility] HIM SERVICES Scanner 1 scan: (1-Ord) INCOMING RECORDS-LABS, [facility], 07/08/2024 07/08/2024 Telephone [facility] [address] [place] [address] Monica Bruno MD Results 07/07/2024 10:00 AM LEATHER SKINNER Office Visit [facility] [address] [place] [address] Monica Bruno MD ER Follow up (06/29/2024, [facility]) 07/07/2024 Telephone [facility] [address] [place] [address] Monica Bruno MD Lab; Results 07/07/2024 Telephone [facility] [address] [place] [address] Freda Serrano MD 07/07/[address] [address] Monica Bruno MD Results 07/06/2024 1:00 PM LEATHER SKINNER Phone Office Visit [address] [phone] Keiko Downs, [facility] Individual Therapy; Phone Visit 07/06/[address] [address] Monica Bruno MD Follow Up 07/06/2024 Travel 07/05/[address] [address] Freda Serrano MD Refill Request (LORazepam (ATIVAN) 0.5 mg tab/) 07/05/[address] [address] Freda Serrano MD Error-please disregard (error) 07/05/[address] [address] Monica Bruno MD Questions (result ) 07/01/2024 Nurse Triage [address] [address] Monica Bruno MD General Illness/Other (Worms.) 06/29/2024 1:00 PM LEATHER SKINNER Phone Office Visit [address] [phone] Keiko Downs, [facility] Individual Therapy; Phone Visit 06/29/2024 Orders Only [facility] HIM SERVICES Scanner 1 scan: (1-Ord) [facility], OVA AND PARASITE FECAL, 06/29/2024 06/29/2024 Travel 06/25/[address] [address] Facundo Mijares MD Medication Management (HYDROmorphone 2 mg tablet ) 06/24/2024 1:00 PM LEATHER SKINNER Procedure Only [facility] [address] [place] [address] Tyler Parson L Ac Acupuncture 06/24/2024 Travel 06/24/[address] [address] Monica Bruno MD Results (Ekg) 06/24/[address] [address] Facundo Mijares MD Appointment (Left elbow pain) 06/23/2024 10:00 AM LEATHER SKINNER Ancillary Procedure [facility] [address] [place] [address] 06/22/2024 1:00 PM LEATHER SKINNER Phone Office Visit [address] [phone] Keiko Downs, [facility] Individual Therapy; Phone Visit 06/22/2024 Travel 06/21/2024 Nurse Triage [address] [address] Monica Bruno MD Error-please disregard 06/21/[address] [address] Monica Bruno MD Referral (Echocardiogram ) 06/14/2024 2:00 PM LEATHER SKINNER Procedure Only [address] [address] Tyler Parson L Ac Acupuncture 06/14/2024 Travel 06/11/[address] [address] Monica Bruno MD Results 06/10/2024 2:00 PM LEATHER SKINNER Procedure Only [address] [address] Tyler Parson L Ac Acupuncture 06/10/2024 11:15 AM LEATHER SKINNER Office Visit [facility] [address] [place] [address] Monica Bruno MD Medication Management; Derm Problem (Right arm); Leg Swelling (Bilateral legs, left > right); Immunization/Inject ion 06/10/2024 Travel 06/08/2024 1:00 PM LEATHER SKINNER Phone Office Visit [facility] [address] [place] [address] Keiko Downs [facility] Individual Therapy; Phone Visit 06/08/2024 Travel 06/04/[address] [address] Freda Serrano MD Refill Request (Lorazepam) 06/01/2024 1:00 PM LEATHER SKINNER Phone Office Visit [address] [phone] Keiko Downs [facility] Individual Therapy; Phone Visit 06/01/2024 Refill [facility] [address] [place] [address] Monica Bruno MD Refill Request (valACYclovir (VALTREX) 1 gram tablet) 05/31/2024 Travel 05/28/2024 1:00 PM LEATHER SKINNER Procedure Only [facility] [address] [place] [address] Tyler Parson L Ac Acupuncture 05/28/2024 Travel 05/25/2024 1:00 PM LEATHER SKINNER Phone Office Visit [address] [phone] Keiko Downs [facility] Individual Therapy; Phone Visit 05/25/2024 Travel 05/18/2024 1:00 PM LEATHER SKINNER Phone Office Visit [address] [phone] Keiko Downs [facility] Individual Therapy; Phone Visit 05/18/2024 Travel 05/14/2024 1:30 PM LEATHER SKINNER Procedure Only [facility] [address] [place] [address] Tyler Parson L Ac Acupuncture 05/14/2024 Travel 05/12/2024 Orders Only [facility] HIM SERVICES Scanner 1 scan: (1-Ord) [facility], MULTIPLE LABS, 05/12/2024 05/11/2024 1:00 PM LEATHER SKINNER Phone Office Visit [facility] [address] [place] [address] Keiko Downs [facility] Individual Therapy; Phone Visit 05/10/2024 2:15 PM LEATHER SKINNER Phone Office Visit [address] [address] Freda Serrano MD Telehealth; Medication Management (Things are not good. Hasn't been getting sleep) 05/10/2024 Travel 05/03/2024 Refill [facility] [address] [place] [address] Freda Serrano MD Refill Request (Trazodone, Buspirone) 04/30/2024 1:00 PM LEATHER SKINNER Procedure Only [facility] [address] [place] [address] Tyler Parson L Ac Acupuncture 04/30/2024 Travel 04/27/2024 1:00 PM LEATHER SKINNER Phone Office Visit [address] [phone] Keiko Downs [facility] Individual Therapy; Phone Visit 04/27/[address] [address] Monica Bruno MD TCU Orders (LABS Creatinine) 04/27/2024 Travel 04/26/[address] [address] Monica Bruno MD Results 04/23/2024 3:00 PM LEATHER SKINNER Orders Only [facility] [address] [place] [address] Lab, [facility] 04/23/2024 Travel from Last [...] on file Legal Sex Female 6:06 AM LEATHER SKINNER Gender Identity Not on file Sexual Orientation [...] Comments Blood Pressure 135/79 07/16/2024 9:20 AM LEATHER SKINNER Pulse 83 07/16/2024 9:20 AM LEATHER SKINNER Temperature 36.6 C (97.9 F) 07/16/2024 9:20 AM LEATHER SKINNER Respiratory Rate 16 04/01/2022 3:21 PM LEATHER SKINNER Oxygen Saturation 98% 07/16/2024 9:20 AM LEATHER SKINNER Inhaled Oxygen Concentration - - Weight 83.4 kg (183 lb 12.8 oz) 07/16/2024 9:20 AM LEATHER SKINNER Height 174 cm (5' 8.5) 04/14/2023 2:10 PM LEATHER SKINNER Body Mass Index 27.54 04/14/2023 2:10 PM LEATHER SKINNER Plan of Treatment Upcoming Encounters Date Type Department Care Team (Late st Contact Info) Description 07/22/2024 1:20 PM CDT Office Visit [facility] [address] [place] [address] Facundo Mijares MD [address] [place] [address] 07/22/2024 2:00 PM CDT Procedure Only [facility] [address] [place] [address] Tyler Parson L Ac [address] [place] [address] 07/27/2024 1:00 PM CDT Phone Office Visit [facility] [address] [place] [address] Keiko Downs LICSW [address] [place] [address] 07/29/2024 2:00 PM CDT Procedure Only [facility] [address] [place] [address] Tyler Parson L Ac [address] [place] [address] 08/03/2024 2:00 PM CDT Procedure Only [facility] [address] [place] [address] Tyler Parson L Ac [address] [place] [address] 08/09/2024 1:15 PM CDT Phone Office Visit [facility] [address] [place] [address] Freda Serrano MD [address] [place] [address] 08/10/2024 1:00 PM CDT Phone Office Visit [facility] [address] [place] [phone] Keiko Downs LICSW [address] [place] [address] 08/12/2024 2:00 PM CDT Procedure Only [facility] [address] [place] [address] Tyler Parson L Ac [address] [place] [address] 08/17/2024 1:00 PM CDT Phone Office Visit [facility] [address] [place] [address] Keiko Downs [employer] [address] [place] [address] 08/19/2024 2:00 PM CDT Procedure Only [facility] [address] [place] [address] Tyler Parson L Ac [address] [place] [address] 08/24/2024 1:00 PM CDT Phone Office Visit [facility] [address] [place] [phone] Keiko Downs [facility] [address] [place] [address] 08/26/2024 1:00 PM CDT Procedure Only [facility] [address] [place] [address] Tyler Parson L Ac [address] [place] [address] 08/31/2024 1:00 PM CDT Phone Office Visit [facility] [address] [place] [phone] Keiko Downs [facility] [address] [place] [address] 09/02/2024 1:30 PM CDT Procedure Only [facility] [address] [place] [address] Tyler Parson L Ac [address] [place] [address] 09/07/2024 1:00 PM CDT Phone Office Visit [facility] [address] [place] [phone] Keiko Downs [facility] [address] [place] [address] 09/10/2024 2:00 PM CDT Procedure Only [facility] [address] [place] [address] Tyler Parson L Ac [address] [place] [address] 09/16/2024 2:00 PM CDT Procedure Only [facility] [address] [place] [address] Tyler Parson, L Ac [address] [place] [address] 09/23/2024 2:00 PM CDT Procedure Only [facility] [address] [place] [address] Tyler Parson, L Ac [address] [place] [address] 09/30/2024 1:00 PM CDT Procedure Only [facility] [address] [place] [address] Tyler Parson, [place] Ac [address] [place] [address] 10/07/2024 2:00 PM CDT Procedure Only [facility] [address] [place] [address] Tyler Parson, L Ac [address] [place] [address] 10/14/2024 2:00 PM CDT Procedure Only [facility] [address] [place] [address] Tyler Parson, [place] Ac [address] [place] [address] 10/21/2024 2:00 PM CDT Procedure Only [facility] [address] [place] [address] Tyler Parson, [place] Ac [address] [place] [address] 10/28/2024 2:00 PM CDT Procedure Only [facility] [address] [facility] [address] Tyler Parson L Ac [address] [place] [place] [address] 11/04/2024 1:00 PM CDT Procedure Only [facility] [address] [place] [address] Tyler Parson L Ac [address] [place] [address] Health Maintenance Due Date Last Done Comments [...] US STUDY ARCHIVE Routine 07/16/2024 10:44 AM LEATHER SKINNER Chronic polyarticular juvenile rheumatoid arthritis (HC) Effusion of elbow joint, left Left elbow pain PARASITE DIRECT EXAM Routine 07/16/2024 10:18 AM LEATHER SKINNER XR FOOT 3 VIEWS LEFT Routine 07/16/2024 9:06 AM LEATHER SKINNER Foot pain, left ACUPUNCTURE PLAN OF CARE Routine 07/15/2024 12:03 PM LEATHER SKINNER Other low back pain ACUPUNCTURE PLAN OF CARE Routine 07/09/2024 3:39 PM LEATHER SKINNER Other low back pain SCAN CORRESP-LABORATORY RESULTS 07/08/2024 12:00 AM LEATHER SKINNER OVA + PARASITE EXAM Routine 07/07/2024 4 :03 PM LEATHER SKINNER Change in stool TSH WITH REFLEX Routine 07/07/2024 3:15 PM LEATHER SKINNER Hypothyroidism, unspecified type COMP METABOLIC PANEL Routine 07/07/2024 3:15 PM LEATHER SKINNER Change in stool CBC WITH AUTO DIFFERENTIAL Routine 07/07/2024 3:15 PM LEATHER SKINNER Change in stool FOLIC ACID Routine 07/07/2024 3:15 PM LEATHER SKINNER Change in stool VITAMIN B12 Routine 07/07/2024 3:15 PM LEATHER SKINNER Change in stool URINALYSIS MICROSCOPIC Routine 07/07/2024 11:16 AM LEATHER SKINNER Vaginal itching URINALYSIS MACROSCOPIC - [facility] POC DIP ([facility]) Routine 07/07/2024 11:16 AM LEATHER SKINNER Vaginal itching URINE CULTURE Routine 07/07/2024 10:45 AM LEATHER SKINNER Abnormal urine SCAN-PATHOLOGY REPORT 06/29/2024 12:00 AM LEATHER SKINNER ACUPUNCTURE PLAN OF CARE Routine 06/24/2024 4:03 PM LEATHER SKINNER Other low back pain ECHO TTE COMPLETE WO CONTRAST Routine 06/23/2024 10:43 AM LEATHER SKINNER Bilateral leg edema ACUPUNCTURE PLAN OF CARE Routine 06/14/2024 3:20 PM LEATHER SKINNER Other low back pain ACUPUNCTURE PLAN OF CARE Routine 06/10/2024 3:30 PM LEATHER SKINNER Other low back pain VITAMIN D 25 (DEFICIENCY) Routine 06/10/2024 1:40 PM LEATHER SKINNER Osteopenia, unspecified location HEMOGLOBIN A1C Routine 06/10/2024 1:40 PM LEATHER SKINNER Prediabetes CBC WITH AUTO DIFFERENTIAL Routine 06/10/2024 1:40 PM LEATHER SKINNER Bilateral leg edema COMP METABOLIC PANEL Routine 06/10/2024 1:40 PM LEATHER SKINNER Bilateral leg edema ACUPUNCTURE PLAN OF CARE Routine 05/28/2024 3:04 PM LEATHER SKINNER Other low back pain SCAN-LABORATORY REPORT 05/12/2024 12:00 AM LEATHER SKINNER ACUPUNCTURE PLAN OF CARE Routine 04/30/2024 1:03 PM LEATHER SKINNER Other low back pain CREATININE Routine 04/23/2024 1:19 PM LEATHER SKINNER Osteopenia, unspecified location HPV HIGH RISK Routine 11/04/2023 3:50 PM CDT XR DXA BONE DENSITY 2 SITES AXIAL Routine 09/24/2023 2:28 PM CDT Osteopenia, unspecified location Menopause XR MAMMO EVA BILAT SCREEN Routine 08/01/2023 3:29 PM CDT Visit for screening mammogram LIPID PANEL W REFLEX MEASURED LDL Routine 07/08/2023 12:07 PM LEATHER SKINNER Hyperlipidemia, unspecified hyperlipidemia type SCAN-COLONOSCOPY 01/28/2022 1:00 PM CDT ANTI HIV 1/2 Routine 06/01/2018 4:02 PM LEATHER SKINNER Exposure to STD ANTI HCV Routine 09/30/2017 5:38 PM CDT STD exposure from Last 3 Months or Most Recently Relevant to Health Maintenance Results * SCAN-RADIOLOGY REPORT (07/21/2024 12:00 AM CDT) Anatomical Region Laterality Modality Other us Scanner OTHER Final Result * BEDSIDE US STUDY ARCHIVE (07/16/2024 10:44 AM LEATHER SKINNER) Narrative Maureen Martinez David - 07/16/2024 10:44 AM LEATHER SKINNER The patient was seen for ultrasound guided [...] * PARASITE DIRECT EXAM (07/16/2024 10:18 AM LEATHER SKINNER) PARASITE IDENTIFICATION [facility], Comment: Specimen submitted is an artifact (not a worm). 07/16/2024 10:1 8 AM LEATHER SKINNER 07/16/2024 10:18 AM LEATHER SKINNER Maria G Villavicencio DO MICROBIOLOGY Final Result [facility] [address] [place] [address], [facility], [address] [place] [address] * XR FOOT 3 VIEWS LEFT (07/16/2024 9:06 AM LEATHER SKINNER) Anatomical Region Laterality Modality FEET, FOOT L Computed Radiogr aphy 07/16/2024 3:42 PM LEATHER SKINNER Narrative 07/16/2024 3:42 PM LEATHER SKINNER For Patients: As a result of the [...] * SCAN CORRESP-LABORATORY RESULTS (07/08/2024 12:00 AM LEATHER SKINNER) us Scanner OTHER Final Result * OVA + PARASITE EXAM (07/07/2024 4:03 PM LEATHER SKINNER) OVA AND PARASITES, CONC AND PERM SMEAR SEE NOTE [facility] [place] Comment: OVA AND PARASITES, CONC AND PERM SMEAR Micro Number: [id number] Test Status: Final Specimen Source: Feces Specimen [...] infection. For additional information, please refer to https://education.[employer]/faq/IIO785 (This link is being provided for informational/ educational purposes only.) Stool STOOL SPECIMEN / Unknown 07/07/2024 4:03 PM LEATHER SKINNER 07/07/2024 4:04 PM LEATHER SKINNER Monica Bruno MD SEND OUTS Final Resul t [facility] [address] [place] [address], [facility] [address] [place] [address] * TSH WITH REFLEX (07/07/2024 3:15 PM LEATHER SKINNER) TSH W/REFLEX TO FT4 1.09 0.40 - 4.50 mIU/L [facility] [place] Blood BLOOD SPECIMEN / Unknown 07/07/2024 3:15 PM LEATHER SKINNER 07/07/2024 3:15 PM LEATHER SKINNER us Monica Bruno MD CHEMISTRY Final Resul t [facility] [employer] [facility] [address] [place] [address], [facility] [address] [place] [address] * CBC AND DIFFERENTIAL (07/07/2024 3:15 PM LEATHER SKINNER) Only the most recent of2 resultswithin the time period is included. Pathologist [facility] WHITE BLOOD CELL COUNT 5.6 3.8 - 10.8 Thousand/u L [facility] [place] RED BLOOD CELL COUNT 4.23 3.80 - 5.10 Million/uL [facility] [place] HEMOGLOBIN 13.1 11.7 - 15.5 g/dL [facility] [place] HEMATOCRIT 39.8 35.0 - 45.0 % [facility] [place] MCV 94.1 80.0 - 100.0 [...] Diagnostics[facility] [place] LYMPHOCYTES 26.6 % [facility] [place] MONOCYTES 7.7 % [facility] [place] EOSINOPHILS 0.9 % [facility] [place] BASOPHILS 0.9 % [facility] [place] Blood BLOOD SPECIMEN / Unknown 07/07/2024 3:15 PM LEATHER SKINNER 07/07/2024 3:15 PM LEATHER SKINNER Monica Bruno MD HEMATOLOGY Final Resul t [facility] [facility] [address] [place] [address], [place] [phone] [facility] [address] [place] [address] * FOLIC ACID (07/07/2024 3:15 PM LEATHER SKINNER) FOLATE, SERUM 23.6 ng/mL [facility] [place] Comment: Reference Range Low: <3.4 Borderline: 3.4-5.4 Normal: >5.4 Blood BLOOD SPECIMEN / Unknown 07/07/2024 3:15 PM LEATHER SKINNER 07/07/2024 3:15 PM LEATHER SKINNER Monica Bruno MD CHEMISTRY Final Resul t Performing Organization Address [facility]/ZIP Co de Phone Number [facility] [facility] [address] [facility] [place] [address], [place] [phone] [facility] [address] [facility] [place] [address] * VITAMIN B12 (07/07/2024 3:15 PM LEATHER SKINNER) VITAMIN B12 565 200 - 1,100 pg/mL [facility] [place] Blood BLOOD SPECIMEN / Unknown 07/07/2024 3:15 PM LEATHER SKINNER 07/07/2024 3:15 PM LEATHER SKINNER Monica Bruno MD CHEMISTRY Final Resul t [facility] [address] [place] [address], [facility] [address] [place] [address] * (ABNORMAL) COMP METABOLIC PANEL (07/07/2024 3:15 PM LEATHER SKINNER) Only the most recent of2 resultswithin the time period is included. GLUCOSE 141(H) 65 - 99 mg/dL [facility] [place] Comment: Fasting reference interval For someone without known diabetes, a glucose value >125 mg/dL indicates that they may have diabetes and this should be confirmed with a follow-up test. UREA NITROGEN (BUN) 23 7 - 25 mg/dL [facility] [facility] [place] CREATININE 0.94 0.50 - 1.05 mg/dL [facility] [facility] [place] EGFR 67 > OR = 60 mL/min/1. 73m2 [facility] [place] BUN/CREATININE RATIO SEE NOTE: 6 - 22 (calc) [facility] [place] Comment: Not Reported: BUN and Creatinine are within reference range. SODIUM 138 135 - 146 mmol/L [facility] [place] POTASSIUM 4.2 3.5 - 5.3 mmol/L [facility] [place] CHLORIDE 104 98 - 110 mmol/L [facility] [place] CARBON DIOXIDE 23 20 - 32 mmol/L [facility] [place] CALCIUM 9.7 8.6 - 10.4 mg/dL [facility] [place] PROTEIN, TOTAL 7.1 6.1 - 8.1 g/dL [facility] [place] ALBUMIN 4.5 3.6 - 5.1 g/dL [facility] [place] GLOBULIN 2.6 1.9 - 3.7 g/dL (calc) [facility] [place] ALBUMIN/GLOBULIN RATIO 1.7 1.0 - 2.5 (calc) [facility] [place] BILIRUBIN, TOTAL 0.4 0.2 - 1.2 mg/dL [facility] [place] ALKALINE PHOSPHATASE 62 37 - 153 U/L [facility] [place] AST 25 10 - 35 U/L [facility] [place] ALT 20 6 - 29 U/L [facility] [place] Blood BLOOD SPECIMEN / Unknown 07/07/2024 3:15 PM LEATHER SKINNER 07/07/2024 3:15 PM LEATHER SKINNER Monica Bruno MD CHEMISTRY Final Resul t Performing Organization Address City/[facility]/ZIP Co de Phone Number [facility] [address] [place] [address], [place] [phone] [facility] [address] [place] [address] * POCT Urinalysis Dipstick Only (07/07/2024 11:16 AM LEATHER SKINNER) PH 6.0 5.0 - 8.0 [facility] SPECIFIC GRAVITY 1.020 1.001 - 1.035 [facility] GLUCOSE NEGATIVE NEGATIVE [facility] BILIRUBIN NEGATIVE NEGATIVE [facility] KETONES NEGATIVE NEGATIVE [facility] OCCULT BLOOD NEGATIVE NEGATIVE [facility] PROTEIN NEGATIVE NEGATIVE [facility] NITRITE NEGATIVE NEGATIVE [facility] LEUKOCYTE ESTERASE NEGATIVE NEGATIVE [facility] Urine URINE SPECIMEN / Unknown 07/07/2024 11:16 AM LEATHER SKINNER 07/07/2024 11:17 AM LEATHER SKINNER Monica Bruno MD URINE Final Resul t Performing Organization Address City/[facility]/ZIP Co de Phone Number [facility] [address] [place] [address], [place] [phone] [facility] [address] [place] [address] * (ABNORMAL) URINALYSIS MICROSCOPIC (07/07/2024 11:16 AM LEATHER SKINNER) RBC 3-5(A) 0-2, None Seen /HPF 07/07/2024 4:10 PM LEATHER SKINNER [facility] WBC 0-2 0-2, 3-5, None Seen /HPF 07/07/2024 4:10 PM LEATHER SKINNER [facility] BACTERIA None Seen None Seen, Rare, Few Bacteria/ HPF 07/07/2024 4:10 PM LEATHER SKINNER [facility] EPITHELIAL CELLS Moderate(A ) None Seen, Few Epi/HPF 07/07/2024 4:10 PM LEATHER SKINNER [facility] HYALINE CASTS 0-2 0-2, 3-5 /LPF 07/07/2024 4:10 PM LEATHER SKINNER [facility] CALCIUM OXALATE CRYSTALS Present(A) (none) 07/07/2024 4:10 PM LEATHER SKINNER [facility] Urine URINE SPECIMEN / Unknown Non-Blood / Unknown 07/07/2024 11:16 AM LEATHER SKINNER 07/07/2024 11:16 AM LEATHER SKINNER us Monica Bruno MD URINE Final Resul t Performing Organization Address [facility] Co de Phone Number [facility] [address] [place] [address], [place] * URINE CULTURE (07/07/2024 10:45 AM LEATHER SKINNER) CULTURE <10,000 CFU/mL multiple organisms 07/09/2024 2:29 PM LEATHER SKINNER [facility] Urine URINE SPECIMEN / Unknown Non-Blood / Unknown 07/07/2024 10:45 AM LEATHER SKINNER 07/08/2024 8:24 AM LEATHER SKINNER us Monica Bruno MD MICROBIOLOGY Final Resul t Performing Organization Address City/[facility]/ZIP Co de Phone Number [facility] [address] [place] [address], [place] * SCAN-PATHOLOGY REPORT (06/29/2024 12:00 AM LEATHER SKINNER) us Scanner OTHER Final Result * ECHO TTE COMPLETE WO CONTRAST (06/23/2024 10:43 AM LEATHER SKINNER) AORTIC VALVE MEAN PG 6 mmHg EJECTION FRACTION 75 % PEAK TR VELOCITY 2.4 m/s LVEDD 4.2 cm EJECTION FRACTION 70 - 75% Anatomical Region Laterality Modality Ultrasound 06/23/2024 10:1 6 AM LEATHER SKINNER Narrative 06/23/2024 11:09 AM LEATHER SKINNER ECHOCARDIOGRAM JULITA CEJA : 1960 64 years Study Date: 06/23/2024 10:16:33 AM Gender: F BP: 114/70 mmHg Height: 173.00 cm BSA: 2.00 m Weight: 86.00 kg Tech: ROSANNE Referring MD: MONICA BRUNO Site: [facility] Reading Location: Mobile-OP Patient Location: [...] . This study was interpreted by an [facility] accredited facility. CC: [facility]. Final Procedure Note Geoffrey Coyne MD - 06/23/2024 ECHOCARDIOGRAM JULITA CEJA : 1960 64 years Study Date: 06/23/2024 10:16:33 AM Gender: F BP: 114/70 mmHg Height: 173.00 cm BSA: 2.00 m Weight: 86.00 kg Tech: [facility] Referring MD: MONICA BRUNO Site: [facility] Reading Location: Mobile-OP Patient Location: [...] . This study was interpreted by an [facility] accredited facility. CC: [facility] (med records) [facility]. Final Monica Bruno MD ECHO ORD Final Resul t * (ABNORMAL) HEMOGLOBIN A1C (06/10/2024 1:40 PM LEATHER SKINNER) HEMOGLOBIN A1C 5.9(H) <5.7 % of total Hgb [facility] Melton Comment: For someone without known diabetes, [...] BLOOD SPECIMEN / Unknown 06/10/2024 1:40 PM LEATHER SKINNER 06/10/2024 1:40 PM LEATHER SKINNER Monica Bruno MD CHEMISTRY Final Resul t [employer] [facility] [address] [facility] [place] [address], [facility] [address] [place] [address] * VITAMIN D 25 (DEFICIENCY) (06/10/2024 1:40 PM LEATHER SKINNER) VITAMIN D,25-OH,TOTAL,IA 45 30 - 100 ng/mL [facility]W em[facility] Geronimo Comment: Vitamin D Status 25-OH Vitamin D: Deficiency: <20 ng/mL Insufficiency: 20 - 29 ng/mL Optimal: > or = 30 ng/mL For 25-OH Vitamin D testing on patients on D2-supplementation and patients for whom quantitation of D2 and D3 fractions is required, the QuestAssureD(TM) 25-OH VIT D, (D2,D3), LC/MS/MS is recommended: order code 48367 (patients >2yrs). See Note 1 Note 1 For additional information, please refer to http://education.CyberDefender/faq/YYH339 (This link is being provided for informational/ educational purposes only.) Blood BLOOD SPECIMEN / Unknown 06/10/2024 1:40 PM LEATHER SKINNER 06/10/2024 1:40 PM LEATHER SKINNER us Monica Bruno MD SEND OUTS Final Resul t [employer] [facility] [address] [place] [address], [facility] [address] [place] [address] * SCAN-LABORATORY REPORT (05/12/2024 12:00 AM LEATHER SKINNER) us Scanner OTHER Final Result * (ABNORMAL) CREATININE (04/23/2024 1:19 PM LEATHER SKINNER) CREATININE 1.09(H) 0.50 - 1.05 mg/dL [facility] EGFR 56(L) > OR = 60 mL/min/1.73 m2 [facility] Blood BLOOD SPECIMEN / Unknown 04/23/2024 1:19 PM LEATHER SKINNER 04/23/2024 1:20 PM LEATHER SKINNER us Monica Bruno MD CHEMISTRY Final Resul t [employer] [facility] [address] [place] [address], [place] [phone] [facility] [address] [place] [address] * HPV HIGH RISK (11/04/2023 3:50 PM CDT) TYPE 16 Negative Negative 11/07/2023 4:00 PM CDT [facility] TYPE 18 Negative Negative 11/07/2023 4:00 PM CDT [facility] OTHER HIGH RISK TYPES Negative Negative 11/07/2023 4:00 PM CDT [facility] Other (Cervical) 11/04/2023 3:50 PM CDT 11/06/2023 9:26 AM CDT Narrative [facility] - 11/07/2023 4:00 PM CDT HPV types 16, 18, 31, 33, 35, 39, 45, 51, 52, 56, 58, 59, 66 and 68 DNA were undetectable or below the pre-set threshold. Methodology: Jacek Karen 4800 HPV Test us Corine Guillaume MD MICROBIOLOGY Final Resu lt [facility] [address] [place] [address], * (ABNORMAL) XR DXA BONE DENSITY 2 [...] to assess therapeutic efficacy. Ann Jay PA-C [facility] 09/30/2023 Narrative 09/30/2023 1:49 PM CDT For Patients: Results are automatically released to your [facility] ([employer]) account once available, in compliance with federal regulations. This means that you may see your results before your provider has had a chance to review them. Please allow 2-3 business days for your provider to comment on the results. XR DXA Bone Mineral Density (BMD) EXAM LOCATION: [address] [address] PATIENT NAME: Julita Ceja DATE OF : [...] two scanners are made by the same engine dynamometer tester. PROCEDURE: Dual-energy x-ray absorptiometry performed with routine [...] care provider. XR MAMMO EVA BILAT SCREEN [[id number]] CLINICAL HISTORY: This is an asymptomatic 63 y.o. patient. INDICATION FOR EXAM: Mammogram Screening. TECHNIQUE: CC & MLO views were obtained. This study was evaluated with the assistance of Computer-Aided Detection. Breast Tomosynthesis was used in interpretation. COMPARISON FILM: Yes 05/13/22 [employer] 05/10/21 [employer] FINDINGS: The breasts have scattered areas of fibroglandular density. There are no dominant masses, suspicious micro calcifications or areas of architectural distortion. Monica Bruno MD MAMMO Final Resul t * (ABNORMAL) LIPID PANEL W REFLEX MEASURED LDL (07/08/2023 12:07 PM LEATHER SKINNER) CHOLESTEROL,TOTAL 285(H) 100 - 199 mg/dL 07/08/2023 9:55 PM LEATHER SKINNER [facility] Comment: Cholesterol, Total Reference Ranges Desirable <200 mg/dL Borderline 200-239 mg/dL High >=240 mg/dL TRIGLYCERIDES 97 <150 mg/dL 07/08/2023 9:55 PM LEATHER SKINNER [facility] HDL CHOLESTEROL 76 >40 mg/dL 9:55 PM LEATHER SKINNER [facility] NON-HDL CHOLESTEROL 209(H) <145 mg/dl 07/08/2023 9:55 PM LEATHER SKINNER [facility] CHOL/HDL RATIO 3.75 <4.50 07/08/2023 9:55 PM LEATHER SKINNER [facility] LDL CHOLESTEROL 190(H) <=130 mg/dL 07/08/2023 9:55 PM LEATHER SKINNER [facility] VLDL CHOLESTEROL 19 <=30 mg/dL 07/08/2023 9:55 PM LEATHER SKINNER [facility] PROVIDER ORDERED STATUS RANDOM 07/08/2023 9:55 PM LEATHER SKINNER [facility] Blood BLOOD SPECIMEN / Unknown Venipuncture / Unknown 07/08/2023 12:07 PM LEATHER SKINNER 07/08/2023 12:07 PM LEATHER SKINNER Monica Bruno MD CHEMISTRY Final Resul t [facility] [address] [place] [address], * SCAN-COLONOSCOPY (01/28/2022 1:00 PM CDT) Narrative Procedure Note Edison Ceron MD - 01/28/2022 12:02 PM CDT [facility] [address], [address], [place] [address] Patient Name: Julita Ceja Gender: Female Exam Date: 01/28/2022 Visit Number: [id number] Age: 61 Years 9 Months Date of : 1960 Attending MD: Edison Ceron MD Medical Record#: [id number] ----- Procedure: Colonoscopy Indications: Recent history of [...] Race: White Ethnicity: Not or Preferred Language: Bahamian cc: Monica Bruno MD [facility] [phone] us Edison Ceron MD OTHER Final Resu lt * ANTI HIV 1/2 (06/01/2018 4:02 PM LEATHER SKINNER) HIV-1/HIV-2 ANTIBODY Non-Reacti ve Non-Reacti ve 06/01/2018 8:08 PM LEATHER SKINNER [facility] Comment:HIV-1 p24 and HIV-1/ HIV-2 Ab not detected. Blood BLOOD SPECIMEN / Unknown Venipuncture / Unknown 06/01/2018 4:02 PM LEATHER SKINNER 06/01/2018 4:02 PM LEATHER SKINNER us Monica Bruno MD SEND OUTS Final Resul t [facility] [address] [place] [address], * ANTI HCV (09/30/2017 5:38 PM CDT) HEPATITIS C ANTIBODY Non-React mathieu Non-React mathieu 10/01/2017 2:41 PM CDT [facility] Comment:Antibodies to HCV no t detected; does not exclude the possibility of exposure to HCV. Blood BLOOD SPECIMEN / Unknown Venipuncture / Unknown 09/30/2017 5:38 PM CDT 09/30/2017 5:38 PM CDT us Kourtney GUERRERO SEND OUTS Final Result [facility] [address] [place] [address], from Last 3 Months or Most Recently Relevant to [place] [address] MEDICARE PB ONLY [facility] ATTN: [place] [address] MEDICARE PART B HB ONLY MEDICARE PART A HB ONLY [facility] [place] [id number] MEDICARE PB ONLY [facility] [place], [place] [id number] [place] [address] MEDICARE PART B HB ONLY [facility] ATTN: [place] [address] [facility] HC MEDICARE PPS [facility] [place] [id number] Advance Directives Documents on File Type Date Recorded Patient Spray Technician Expl anation Healthcare Directive 04/01/2022 022 * [...] 6:43 PM 06/10/2011 6:41 PM Care Teams Tax Services Intern Relationship Specialty Start Date End Date Monica Bruno MD [address] [place] [address] PCP - General Family Practice 07/01/19 Judie Carreno, Zoraida [address] [place] [address] Pharmacist Medication Management Pharmacology 05/28/23 05/28/25
--- OUTSIDE RECORDS SUMMARY | 2024-07-21 16:02 | XMS_ITS | Encounter Summary ---
Author Organization [facility] Address On license of [facility] [place] [address] Care Team Providers Care Blue Prints Trimmer Name Role Phone Heladio Martins MD Primary Care Provider Kelsi Glez MD Unavailable [phone] Nivia Bruno MD Primary Care Provider [phone] Encounter Details Date Type Department Care Team (Latest Contact Info) Description 03/06/2021 [facility] Treatment Plan 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
--- OUTSIDE RECORDS SUMMARY | 2024-07-21 16:02 | XMS_ITS | Encounter Summary ---
Author Organization [place] Address [address] [place] [address] Care Team Providers Care Helminthologist Name Role Phone Kelsi Handy MD Unavailable [phone] Nivia Bruno MD Primary Care Provider [phone] Encounter Details Date Type Department Care Team ([facility] Contact Info) Description 09/25/2021 Telephone [facility] Behavioral Health Intake [address] [place] [phone] Generic, Behavioral Intake, Social History Tobacco Use Types Packs/Day Years Used Date Smoking Tobacco: Never Smokeless Tobacco: Never Alcohol Use Standard Drinks/Week Comments No 0 (1 standard drink = 0.6 oz pur e alcohol) PHQ-2 Answer Date Recorded PHQ-2 Score 2 06/13/2021 Comments No Sex and Gender Information Value Date Recorded Sex Assigned at Not on file Legal Sex Female 3:16 AM ESTHETICIAN/SKIN THERAPIST Gender Identity Not on file Sexual Orientation Not on file documented as of this encounter Miscellaneous Notes * Telephone Encounter - Rafael Cota - 09/25/2021 12:00 PM CDT ----- Message from SHANNON Warner sent at 09/25/2021 11:03 AM CDT ----- Regarding: add appointment Scheduling Request Patient Name: ?? Location of programming: [facility] Start Date: 09/27/21 Group (BHxxxxx on #days of the week# at #start time to end time#): 55+ clinic 1 Provider (name of MD):kerry Number of visits to be scheduled: 1 Duration of Appointment in minutes: 120 mins Visit Type (Amwell - 5682 / Zoom - 2657 / In-person or Treatment - 870) :zoom 2657 Additional notes: documented in this encounter Plan of Treatment Not on file documented as of this encounter Visit Diagnoses Not on filedocumented in this encounter Additional Health Concerns Assessment Noted Time PHQ-9 Depression Total Score: 7 06/14/19 22 10:59 AM ESTHETICIAN/SKIN THERAPIST documented as of this encounter Care Teams Helminthologist Relationship Specialty Start Date End Date Nivia Bruno MD [address] [place] [address] PCP - General 03/22/21 Kelsi Handy MD [address] [place] [address] Assigned OBGYN Provider 04/23/20 3 documented as of this encounter
--- OUTSIDE RECORDS SUMMARY | 2024-07-21 16:02 | XMS_ITS | Clinical Summary ---
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 Gender Identity Not on file [...] BASIC METABOLIC PANEL Routine 06/23/2017 6:00 AM CANCELING MACHINE OPERATOR TSH Routine 06/23/2017 6:00 AM CANCELING MACHINE OPERATOR from Last 3 Months or Most Recently Relevant to Health Maintenance Results * TSH (06/23/2017 6:00 AM CANCELING MACHINE OPERATOR) TSH 2.31 0.30 - 5.00 uIU/mL 06/23/2017 10:31 AM CANCELING MACHINE OPERATOR [facility] Blood specimen (specimen) STRUCTURE OF LEFT UPPER LIMB / Unknown Venipuncture / Unknown 06/23/2017 6:00 AM CANCELING MACHINE OPERATOR 06/23/2017 9:50 AM CANCELING MACHINE OPERATOR Rosmery Simpson MD LAB - BLOOD ORDERABLES Fi nal Result [facility] [address] [place] [address], [facility] [address] [place] [address] * Basic metabolic panel (06/23/2017 6:00 AM CANCELING MACHINE OPERATOR) Sodium 139 136 - 145 mmol/L 06/23/2017 10:13 AM CANCELING MACHINE OPERATOR [facility] Potassium 4.2 3.5 - 5.0 mmol/L 06/23/2017 10:13 AM CANCELING MACHINE OPERATOR [facility] Chloride 103 98 - 107 mmol/L 06/23/2017 10:13 AM [facility] Carbon Dioxide (CO2) 29 22 [...] Unknown Venipuncture / Unknown 06/23/2017 6:00 AM [facility] 06/23/2017 9:50 AM [facility] Narrative [facility] - 06/23/2017 10:13 AM [facility] Fasting Glucose reference range is 70-99 mg/dL per [place] Diabetes Association (ADA) guidelines. Rosmery Simpson MD LAB - BLOOD ORDERABLES Fi nal Result [facility] [address] [place] [address], [facility] [address] [place] [address] from Last 3 Months or Most Recently Relevant to [place] [address] MEDICARE BC[place] [address] [place] [phone] [place] Advance Directives For more information, please contact: [phone] * Full Code (Latest Code Status on File) Date Activated Date Inactivated Comments 04/16/2016 1:58 AM 04/22/2016 3:55 PM Care Teams Cafe Aide Relationship Specialty Start Date End Date Nivia Bruno MD PCP - General 03/22/21
--- OUTSIDE RECORDS SUMMARY | 2024-07-21 16:02 | XMS_ITS | Encounter Summary ---
Author Organization [place] Address [address] [place] [address] Care Team Providers Care Commercial Administrator Name Role Phone Heladio Martins MD Primary Care Provider Kelsi Glez MD Unavailable [phone] Nivia Bruno MD Primary Care Provider [phone] Encounter Details Date Type Department Care Team ([facility] Contact Info) Description 03/07/2021 [facility] Behavioral Health Intake [address] [place] [id number] Generic, Behavioral Intake, Social History Tobacco Use Types Packs/Day Years Used Date Smoking Tobacco: Never Smokeless Tobacco: Never Alcohol Use Standard Drinks/Week Comments No 0 (1 standard drink = 0.6 oz pur e alcohol) PHQ-2 Answer Date Recorded PHQ-2 Score 6 03/06/2021 Comments No Sex and Gender Information Value Date Recorded Sex Assigned at Not on file Legal Sex Female 3:16 AM RESIDENT IN DIAGNOSTIC RADIOLOGY Gender Identity Not on file Sexual Orientation [...] 7:37 PM CDT To: Cheyanne Santana [facility], Quentin Hagan, # Subject: Schedule for PHP on Friday Scheduling Request Patient Name: Juliette Brown Location of programming: [facility] Start Date: 03/12 Group: [id number] 9am to 3pm Attending Provider (): Trent Number of visits to be scheduled: 50 Duration of Appointment in minutes: 360 Visit Type: Zoom - [phone] Additional notes: Patient is currently in PHP at [facility]. She has Medicare and BCBS. Please check ifinsurance will cover another PHP program. Patient was given [employer] phone number. * Telephone Encounter - Jen Serrano - 03/07/2021 7:50 AM CDT ----- Message from KETTY Rollins sent at 03/06/2021 7:37 PM CDT ----- Regarding: Schedule for PHP on Friday Scheduling Request Patient Name: Juliette Brown Location of programming: [facility] Start Date: 03/12 Group: [id number] 9am to 3pm Attending Provider (): Vine Number of visits to be scheduled: 50 Duration of Appointment in minutes: 360 Visit Type: Zoom - [phone] Additional notes: Patient is currently in PHP at [facility]. She has Medicare and BCBS. Please check ifinsurance will cover another PHP program. Patient was given [employer] phone number. documented in this encounter Plan of Treatment Not on file documented as of this encounter Visit Diagnoses Not on filedocumented in this encounter Additional Health Concerns Assessment Noted Time PHQ-9 Depression Total Score: 21 021 12:28 PM CDT documented as of this encounter Care Teams Commercial Administrator Relationship Specialty Start Date End Date Heladio Martins MD PCP - General Internal Medicine 03/05/16 03/21/21 Nivia Bruno MD [address] [place] [address] PCP - General 03/22/21 Kelsi Handy MD [address] [place] [address] Assigned OBGYN Provider 04/23/20 3 documented as of this encounter
--- OUTSIDE RECORDS SUMMARY | 2024-07-21 16:02 | XMS_ITS ---
Author Organization [facility] Care Team Providers Care Scientific Glass Blower Name Role Phone Rosmery Simpson Unavailable Unavailable Kimberly Gutierrez Unavailable Unavailable Allergies and adverse reactions Code CodeSystem Substance Reaction Severity StartDate Concern Status 49624 RXNORM Tramadol Unknown Unknown active 34294 RXNORM Gold Sodium Thiomalate Unknown Unknown a ctive Care Team Name Role Address Phone Organization Dates Rosmery Simpson PCP [address] [place], [place], [facility], [place] (Office): : [facility] 06/26/2017 - 07/11/2017 Kimberly Gutierrez Attending Physician [address] [place], [place], [facility], [facility] (Office): : [facility] 06/26/2017 - 07/11/2017 Immunizations Immunization Status Vaccine [...] Concern Status 1 ACUTE POSTHEMORRHAGIC ANEMIA [address] active 2 ANXIETY DISORDER, UNSPECIFIED [address] active 3 COMPLICATION OF VEIN FOLLOWING A PROCEDURE, NOT ELSEWHERE CLASSIFIED, SUBSEQUENT ENCOUNTER 018 06/30/[address] completed 4 CONSTIPATION, UNSPECIFIED [address] active 5 FIBROMYALGIA [address] active 6 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 7 HYPOTENSION, UNSPECIFIED [address] active 8 INSOMNIA, UNSPECIFIED [address] active 9 MAJOR DEPRESSIVE DISORDER, RECURRENT SEVERE WITHOUT PSYCHOTIC FEATURES [address] active 10 MUSCLE WEAKNESS (GENERALIZED) [address] active 11 NASAL CONGESTION [address] active 12 NUTRITIONAL DEFICIENCY, UNSPECIFIED [address] active 13 OTHER ABNORMALITIES OF GAIT AND MOBILITY [address] active 14 OTHER CHRONIC PAIN [address] active 15 OTHER MALAISE [address] active 16 PERIPROSTHETIC FRACTURE AROUND INTERNAL PROSTHETIC LEFT HIP JOINT, SUBSEQUENT ENCOUNTER [id number] active 17 RHEUMATOID ARTHRITIS, UNSPECIFIED [address] active Reason for Referral No Reasons for Referral Entered Social History Social History Observation Description Start Date End Date Code Code System Current Smoking Status Tobacco smoking consumption unknown 437455246 SNOMED CT Sex Assigned At Female 1960 07841-4 [facility] Vital Signs Code Code System Vitals Name Values and Units Timing Information 9279-1 [facility] Respiratory Rate Value=18.0 Units=/m in 07/11/2017 8462-4 [facility] Blood Pressure-Diastolic Value=64 Un its=mmHg 07/11/2017 8480-6 [facility] Blood Pressure-Systolic Value=97 Uni ts=mmHg 07/11/2017 8310-5 [facility] Body Temperature Value=98.1 Units= F 07/11/2017 8867-4 [facility] Heart rate Value=72.0 Units=/min 06/2017 39807-2 [facility] O2 % BldC Oximetry Value=98.0 Units= % 07/11/2017 45883-6 [facility] Pain Level Value=6.0 07/11/2017 26457-4 [facility] Weight Gnxcf=825.2 Units=Lbs 05/2017 8302-2 [facility] Height Value=69.0 Units=Inches 06/27/2017
--- OUTSIDE RECORDS SUMMARY | 2024-07-21 16:02 | XMS_ITS | Clinical Summary ---
Author Organization [facility] Address [address] [place] [address] , [address] [place] [address] Phone Care Team Providers Care Conservation Policy Analyst Name Role Phone [facility] Unavailable Unava ilable Conditions or Problems Problem Name Problem Code Onset Date Status Entry Date Provider Comment Standard Description Annotate Myalgia of auxiliary muscles, head and neck 66223749 (SNOMED CT) 06/27 Active 06/27 Jina Johnson DNP,DIALS INSPECTOR,CN P Muscle pain Hemifacial spasm R 85755870 (SNOMED CT) 08/10 Active 08/10 Norberto Miller Jr, MD Hemifacial spasm Facial pain, atypical 01720122 (SNOMED CT) 08/10 Active 08/10 Norberto Miller Jr, MD Atypical facial pain 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), right 71284399 (SNOMED CT) 08/10 Active 08/10 Norberto Miller Jr, MD Arthritis of temporomandibul ar joint Cervical spasm 29941507 (SNOMED CT) 08/10 Active 08/10 Norberto Miller Jr, MD Muscle spasm of head and/or neck Juvenile rheumatoid arthritis 900834295 (SNOMED CT) 08/10 Active 08/10 Norberto Miller [...] limb movement disorder (moderate; 15/hr; most w/arousals) 070740723 (SNOMED CT) 11/01 Inactive 11/03 Norberto Miller Jr, MD Periodic limb movement disorder 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 (ICD-10-CM ) 09/20 Active 09/20 Norberto Miller Jr, MD Sleep disorder, unspecified Fatigue 33573163 (SNOMED CT) 09/20 Active 09/20 Norberto Miller Jr, MD Fatigue Paresthesia of bilateral legs 11446337 (SNOMED CT) 11/10 Active 11/10 Regan Santiago MD Paresthesia Anxiety, generalized F41.1 (ICD-10-CM ) 01/17 Active 01/17 Jesika Diallo PhD Generalized anxiety disorder Restless leg syndrome (PLMS 15/hr) G25.81 (ICD-10-CM ) 09/04 Active 09/04 Norberto Miller Jr, MD Restless legs syndrome Sleep disturbance , nos 39515723 (SNOMED CT) 09/04 Inactive 09/04 Norberto Miller Jr, MD Dyssomnia 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 (ICD-10-CM ) 09/04 Active 09/04 Norberto Miller Jr, MD Insomnia, unspecified Snoring 47262015 (SNOMED CT) 09/04 Active 09/04 Norberto Miller Jr, MD Snoring Restless leg syndrome 11181058 (SNOMED CT) 09/04 Inactive 09/04 Norberto Miller Jr, MD Restless legs 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 (ICD-10-CM ) 09/04 Active 09/04 Norberto Miller Jr, MD Abnormal level of blood mineral traumatic brain injury, initial encounter S06.309A (ICD-10-CM ) 08/02 Active 08/07 Zuleyma Ly 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, initial encounter Hypothyroid ism 93738381 (SNOMED CT) 08/02 Active 08/07 Zuleyma Ly Hypothyroidism depression 51754122 (SNOMED CT) 08/02 Active 08/07 Zuleyma Ly Depressive disorder Memory problems R41.3 (ICD-10-CM ) 08/02 Active 08/07 Zuleyma Ly Other amnesia Medications Medication Instructions Start Date Stop Date Generic Name NDC Provider ESCITALOPRAM OXALATE 20 MG TABS 12/10 escitalopram oxalate 39989616002 Norberto Miller Jr, MD LORAZEPAM 0.5 MG TABS 12/10 lorazepam 43426721873 Norberto Miller Jr, MD TRETINOIN 0.025 % CREA 12/10 tretinoin 03675183052 Norberto Miller Jr, MD MELATONIN 10 MG TABS 1 by mouth every night 12/10 melatonin-lemon balm leaf extr 85307313635 Norberto Miller Jr, MD TRIAMCINOLONE ACETONIDE 0.1 % CREA 12/10 triamcinolone acetonide 25990461043 Norberto Miller Jr, MD SUMATRIPTAN SUCCINATE 25 MG TABS 12/10 sumatriptan succinate 35903548453 Norberto Miller Jr, MD BUSPIRONE HCL 15 MG TABS 12/10 buspirone 34834052360 Norberto Miller Jr, MD DIPHENOXYLATE-ATRO PINE 2.5-0.025 MG TABS 12/10 diphenoxylate-atr opine 77025644376 Norberto Miller Jr, MD TYRVAYA 0.03 MG/ACT SOLN 12/10 varenicline 41075183762 Norberto Miller Jr, MD ESCITALOPRAM OXALATE 10 MG TABS 12/10 escitalopram oxalate 26542146153 Norberto Miller Jr, MD LIDOCAINE VISCOUS HCL 2 % SOLN 12/10 lidocaine hcl 71578616747 Norberto Miller Jr, MD LIOTHYRONINE SODIUM 5 MCG TABS 12/10 liothyronine 44070718328 Norberto Miller Jr, MD HYDROMORPHONE HCL 2 MG TABS 12/10 hydromorphone 96747332402 Norberto Miller Jr, MD ROPINIROLE HCL 0.25 MG TABS 12/10 ropinirole 64415549198 Norberto Miller Jr, MD POLYMYXIN B-TRIMETHOPRIM 89276-4.1 UNIT/ML-% SOLN 12/10 polymyxin b sulf-trimethoprim 97012588383 Norberto Miller Jr, MD YUVAFEM 10 MCG TABS 12/10 estradiol 32039774473 Norberto Miller Jr, MD SULFAMETHOXAZOLE-T RIMETHOPRIM 800-160 MG TABS 12/10 sulfamethoxazole- trimethoprim 80641114414 Norberto Miller Jr, MD VALACYCLOVIR HCL 1 GM TABS 12/10 valacyclovir 68614691351 Norberto Miller Jr, MD LIDOCAINE 5 % PTCH lidocaine 98372467414 Norberto Milelr Jr, MD TRIAMCINOLONE ACETONIDE 0.1 % PSTE triamcinolone acetonide 08595131210 Norberto Miller Jr, MD PROGESTERONE 100 MG CAPS TAKE ONE CAPSULE BY MOUTH AT BEDTIME* progesterone micronized 32354903551 Norberto Miller Jr, MD ESTRADIOL 1 MG TABS estradiol 86866053057 Norbreto Miller Jr, MD DIPHENOXYLATE-ATRO PINE 2.5-0.025 MG TABS diphenoxylate-at r opine 64077159054 Norberto Miller Jr, MD LIOTHYRONINE SODIUM 5 MCG TABS liothyronine 08913584115 Norberto Miller Jr, MD MELOXICAM 15 MG TABS meloxicam 15954168005 Norberto Miller Jr, MD ONDANSETRON HCL 4 MG TABS ondansetron hcl 75567386764 Norberto Miller Jr, MD AMOXICILLIN 500 MG CAPS amoxicillin 38914056754 Norberto Miller Jr, MD HYDROMORPHONE HCL 2 MG TABS hydromorphone 32138367711 Norberto Miller Jr, MD YUVAFEM 10 MCG TABS estradiol 57705583130 Norberto Miller Jr, MD VILAZODONE HCL 20 MG TABS vilazodone 15060447309 Norberto Miller Jr, MD VILAZODONE HCL 10 MG TABS vilazodone 42214618774 Norberto Miller Jr, MD ESCITALOPRAM OXALATE 20 MG TABS escitalopram oxalate 95931736698 Norberto Miller Jr, MD BUSPIRONE HCL 15 MG TABS buspirone 10324046181 Norberto Miller Jr, MD TRAZODONE HCL 50 MG TABS trazodone 37181182657 Norberto Miller Jr, MD PREDNISONE 20 MG TABS prednisone 27735210996 Norberto Miller Jr, MD PROPRANOLOL HCL 20 MG TABS 08/10 propranolol 02347140043 Norberto Miller Jr, MD HYDROMORPHONE HCL 2 MG TABS 12/10 hydromorphone 56489187909 Norberto Miller Jr, MD ROPINIROLE HCL 0.25 MG TABS 12/10 ropinirole 73095918410 Norberto Miller Jr, MD ESCITALOPRAM OXALATE 20 MG TABS 12/10 escitalopram oxalate 99204731104 Norberto Miller Jr, MD TYRVAYA 0.03 MG/ACT SOLN 12/10 varenicline 37858732392 Norberto Miller Jr, MD YUVAFEM 10 MCG TABS 12/10 estradiol 38445078512 Norberto Miller Jr, MD CYCLOBENZAPRINE HCL 5 MG TABS Take 1/2-1 tablet by mouth every night at bedtime as directed start with 1/2 tab cyclobenzaprine 29906067956 Norberto Miller Jr, MD ESCITALOPRAM OXALATE 10 MG TABS 12/23 escitalopram oxalate 14343751611 Norberto Miller Jr, MD DULOXETINE HCL 30 MG CPEP 1 every morning 12/23 duloxetine 86844010005 Norberto Miller Jr, MD BUSPIRONE HCL 5 MG TABS 1 twice a day 12/23 buspirone 51600211808 Norberto Miller Jr, MD MELATONIN 10 MG TABS 1 by mouth every night 12/10 melatonin-lemon balm leaf extr 95124796826 Norberto Miller Jr, MD TRAZODONE HCL 50 MG TABS Prescribed by Family 12/23 TRAZODONE HCL Norberto Miller Jr, MD BUSPIRONE HCL 15 MG TABS 12/10 buspirone 21850330181 Norberto Miller Jr, MD ESCITALOPRAM OXALATE 10 MG TABS 12/10 escitalopram oxalate 16449594310 Norberto Miller Jr, MD LORAZEPAM 0.5 MG TABS 12/10 lorazepam 69074320587 Norberto Miller Jr, MD TRIAMCINOLONE ACETONIDE 0.1 % CREA 12/10 triamcinolone acetonide 36526565835 Norberto Miller Jr, MD SULFAMETHOXAZOLE-T RIMETHOPRIM 800-160 MG TABS 12/10 sulfamethoxazole- trimethoprim 81009839133 Norberto Miller Jr, MD PROPRANOLOL HCL 20 MG TABS 08/10 propranolol 63293678349 Norberto Miller Jr, MD LIOTHYRONINE SODIUM 5 MCG TABS 12/10 liothyronine 56259891854 Norberto Miller Jr, MD POLYMYXIN B-TRIMETHOPRIM 99679-3.1 UNIT/ML-% SOLN 12/10 polymyxin b sulf-trimethoprim 97281646960 Norberto Miller Jr, MD DIPHENOXYLATE-ATRO PINE 2.5-0.025 MG TABS 12/10 diphenoxylate-atr opine 53147825850 Norberto Miller Jr, MD LIDOCAINE VISCOUS HCL 2 % SOLN 12/10 lidocaine hcl 92949512381 Norberto Miller Jr, MD TRETINOIN 0.025 % CREA 12/10 tretinoin 58397428555 Norberto Miller Jr, MD SUMATRIPTAN SUCCINATE 25 MG TABS 12/10 sumatriptan succinate 12983764485 Norberto Miller Jr, MD VALACYCLOVIR HCL 1 GM TABS 12/10 valacyclovir 21992998279 Norberto Miller Jr, MD ESCITALOPRAM OXALATE 10 MG TABS 12/23 escitalopram oxalate 80642263696 Belle Jimenez PA-C MELATONIN 10 MG TABS 1 orally QHS 12/23 MELATONIN 60992308172 Norberto Miller Jr, MD CLOBETASOL PROPIONATE 0.05 % CREA Prescribed by Family SALAZAR 09/20 CLOBETASOL PROPIONATE 82537161697 Norberto Miller Jr, MD BETAMETHASONE VALERATE 0.1 % LOTN Prescribed by Family SALAZAR 09/20 BETAMETHASONE VALERATE 04814966417 Norberto Miller Jr, MD CEFUROXIME AXETIL 500 MG TABS Prescribed by Family SALAZAR 09/20 CEFUROXIME AXETIL 22704162448 Norberto Miller Jr, MD ARMOUR THYROID 30 MG TABS Prescribed by Family SALAZAR 09/20 THYROID 65606265034 Norberto Miller Jr, MD SERTRALINE HCL 100 MG TABS Prescribed by Family SALAZAR 09/20 SERTRALINE HCL 17034823719 Norberto Miller Jr, MD WELLBUTRIN XL 150 MG [id number] Prescribed by Family SALAZAR 09/20 BUPROPION HCL 54659078055 Norberto Millre Jr, MD DULOXETINE HCL 30 MG CPEP 1 QAM 12/23 DULOXETINE HCL 78459624045 Norberto Miller Jr, MD BUSPIRONE HCL 5 MG TABS 1 BID 12/23 BUSPIRONE HCL 57394393869 Norberto Miller Jr, MD GABAPENTIN 300 MG CAPS Prescribed by Family SALAZAR GABAPENTIN 59577700109 Norberto Miller Jr, MD CEFUROXIME AXETIL 500 MG TABS Prescribed by Family SALAZAR 08/24 CEFUROXIME AXETIL 81142605168 Zuleyma Cameron ARMOUR THYROID 30 MG TABS Prescribed by Family SALAZAR 09/20 THYROID 69956595809 Zuleyma Cameron GABAPENTIN 300 MG CAPS Prescribed by Family SALAZAR 08/24 GABAPENTIN 33273367105 Zuleyma Cameron SERTRALINE HCL 100 MG TABS Prescribed by Family SALAZAR 09/20 SERTRALINE HCL 32703629422 Zuleyma Cameron WELLBUTRIN XL 150 MG [id number] Prescribed by Family SALAZAR 09/20 BUPROPION HCL 25213366888 Zuleyma Cameron TRAZODONE HCL 50 MG TABS Prescribed by Family SLAAZAR 12/23 TRAZODONE HCL 51998361292 Zuleyma Cameron BETAMETHASONE VALERATE 0.1 % LOTN Prescribed by Family SALAZAR 08/24 BETAMETHASONE VALERATE 79333996592 Zuleyma Ly CLOBETASOL PROPIONATE 0.05 % CREA Prescribed by Family SALAZAR 08/24 CLOBETASOL PROPIONATE 68003319313 Zuleyma Cameron Medications Administered No information available. [...] Procedures Code Procedure Name Date Entry Date 50479/67071/15728&53 Occipital Nerve Blo ck and Trigger Point Injections CPT-35442 Trigger point inj (3+ musc) CPT-J1100 Dexamethasone -- 10 mg 04/26 ORDERS Follow up [facility] telemedicine 2 ORDERS Dental Device Referral 12/10 ORDERS Sleep Hygiene Tips Handout 2 ORDERS Insomnia Handout ORDERS Patient Instructions ORDERS Patient Instructions ORDERS Patient Instructions SCT-[id number] Other Referral ORDERS Instructions for Staff 09/02 ORDERS Follow up Sleep [facility] telemedicine ORDERS Patient Instructions CPT-63670 Trigger point inj (3+ musc) CPT-J1100 Dexamethasone -- 10 mg 08/10 [id number] Other Radiology 75993/71212/04932&53 Occipital Nerve Blo ck and Trigger Point Injections ORDERS Follow up Extended telemedicine 1 ORDERS Patient Instructions SCT-440706003 Other Referral [facility]-[id number] Psychiatry Referral ORDERS Pain Clinic ORDERS Insomnia Handout ORDERS Sleep Hygiene Tips Handout 2 ORDERS Patient Instructions CPT-15841 PSG, 4+ parameters w / tech - 6yrs or older (07720) ORDERS Vitamin B12 ORDERS Vitamin D 25 Hydroxy ORDERS Patient Instructions SCT-[id number] Other Referral SCT-[id number] Psychology Referral ORDERS Instructions for Staff 11/28 ORDERS Lyme Total Ab w/Refl ex (reflex to Western Blot) ORDERS TSH ORDERS 2 weeks Actigraphy W atch w/ Sleep Journals (Call Sleep Lab) ORDERS Ferritin Serum ORDERS Overnight PSG - Sleep Study Overnight 07/17/19 ORDERS Telemedicine Follow up 11/08 ORDERS Ferritin Serum [facility]-[id number] Documentation of current medicatio ns ORDERS Other Handout ORDERS Patient Instructions ORDERS Patient Instructions ORDERS Instructions for Staff 11/08 ORDERS Telemedicine Follow up 09/20 CPT-03911 PSG, 4+ parameters w / tech - 6yrs or older (23583) ORDERS Sleep Study - [facility] 2 SCT-[id number] Documentation of current medicatio ns ORDERS T4 SCT-458067400 Other Referral ORDERS Lyme Total Ab w/Refl [...] TSH ORDERS Vitamin B12 ORDERS T3 Free CPT-34893 Nerve Conduction 7-8 studies CPT-65298 EMG with NCS (5+ muscles) - 1 limb 11/10 SCT-[id number] Documentation of current medicatio ns ORDERS Ferritin Serum ORDERS Patient Instructions ORDERS Other Test ORDERS Follow up ORDERS Vitamin B12 CPT-59741 Neuropsych assmnt w/ prov 4 hr CPT-6659125 Neuropsych assmnt w/ tech 3 hr ORDERS Follow up ORDERS Patient Instructions SCT-[id number] Documentation of current medicatio ns ORDERS Follow up ORDERS Patient Instructions SCT-737780171 Other Test CPT-09904 PSG, 4+ parameters w / tech - 6yrs or older (28732) CPT-56307 MRI Brain W/O SCT-[id number] Documentation of current medicatio ns SCT-073176785 Other Test SCT-[id number] Documentation of current medicatio ns ORDERS Ferritin Serum SCT-515027636 Other Referral ORDERS Follow up SCT-244076559 Other Test SCT-128423643 Other Referral SCT-[id number] Documentation of current medicatio ns Vital Signs [...]
--- OUTSIDE RECORDS SUMMARY | 2024-07-21 16:02 | XMS_ITS | Encounter Summary ---
Author Organization [facility] Address [address] [place] [address] Care Team Providers Care Projection Engineer Name Role Phone Heladio Martins MD Primary Care Provider Kelsi Glez MD Unavailable [phone] Nivia Bruno MD Primary Care Provider [phone] Reason for Visit * Reason Onset Date Comments MH/CD Inpatient 04/15/2016 Encounter Details Date Type Department Care Team ([facility] Contact Info) Description 04/15/2016 Telephone [facility] Behavioral Health Intake [address] [place] [address] Generic, Behavioral Intake, MD MH/CD Inpatient Social History Tobacco Use Types Packs/Day Years Used Date Smoking Tobacco: Never Assessed Comments Unknown Sex and Gender Information Value Date Recorded Sex Assigned at Not on file Legal Sex Female 3:16 AM PET CARE TECHNICIAN Gender Identity Not on file Sexual Orientation [...] as it is after 10pm); unit notified CARE TECHNICIAN CARE TECHNICIAN documented in this encounter Plan of Treatment Not on file documented as of this encounter Visit Diagnoses Not on filedocumented in this encounter Care Teams Projection Engineer Relationship Specialty Start Date End Date Heladio Martins MD PCP - General Internal Medicine 03/05/16 03/21/21 Nivia Bruno MD [address] [place] [address] PCP - General 03/22/21 Kelsi Handy MD [address] [place] [address] Assigned OBGYN Provider 04/23/20 3 documented as of this encounter
--- OUTSIDE RECORDS SUMMARY | 2024-07-21 16:02 | XMS_ITS | Clinical Summary ---
Author Organization [facility] Address [address] [place] [address] Care Team Providers Care Lean Manufacturing Leader Name Role Phone Needs Pcp, Assignment Primary Care Provider Source Comments You are receiving this document as you are listed as the primary care provider,follow-up provider, or the patient has been referred to you for consultation.This is in compliance with the Medicare and[facility] EHR Incentive Program,which states Providers who transition their patient to another setting of careor provider of care or refers their patient to another provider of care shouldprovide summary care record for each transition of care or referral. [facility] Allergies Active Allergy Reactions Criticality Noted Date [...] (OCEAN) 0.65 % nasal solution Place 1 [place] into both nostrils every 2 hours as needed for Congestion. Active bacitracin-polym yxin b (POLYSPORIN) 500-62410 UNIT/GM ointmentIndicati ons:dry nose Apply topically two [...] (06/14/2019): Added automatically from request for surgery [id number] Sarcoidosis, lung 06/01/2019 Recurrent major depressive disorder [...] (145 lb 12.8 oz) 07/16/2019 9:00 PM WASHER CUTTER Height 172.7 cm (5' 8) 07/15/2019 9:30 PM WASHER CUTTER Body Mass Index 22.17 07/15/2019 9:30 PM WASHER CUTTER Plan of Treatment Health Maintenance Due Date [...] this topic Medical Devices Implanted Type Area Shop Superintendent Device Identifier Shelf Expiration Date Model / Serial / Lot Chip Jesusita Faria 30cc - [id number] Implanted:Qty: 1 on 07/07/2019 by Tobias Martin MD at [facility] DEVICE Right: LEG [employer] - [employer] 06/30/2023 [id number] / [id number] / [id number] Chip Canc Giana 30cc - [id number] Implanted:Qty: 1 on 07/07/2019 by Tobias Martin MD at [facility] DEVICE Right: LEG [employer] - [employer] 06/30/2023 [id number] / [id number] / [id number] Procedures Procedure Name Priority Date/Time [...] Negative (Non Reactive) 08/25/2018 4:34 PM CDT [facility] Comment:Antibodies to HCV no t detected. Does not exclude the possiblity of exposure to HCV. Blood Venipuncture / Unknown 08/25/2018 11:24 AM CDT 08/25/2018 11:24 AM CDT us Carin Rainey MD LAB_1 Final Resul t [facility] [address] [place], [place] [address] * MM Mammogram Screening Bilat W CAD [...] Most Recently Relevant [place] [address] MEDICARE [facility] MEDICARE SUPPLEMENT MEDICARE BCBS MEDICARE SUPPLEMENT [place] [address] MEDICARE BCBS MEDICARE SUPPLEMENT Advance Directives Documents on File Type Date Recorded Patient Flight Surveyor Expl anation HEALTHCARE DIRECTIVE 07/10/2019 ADVANCE D DIRECTIVE 07/10/2019 * Full Code (Latest Code Status on File) Date Activated Date Inactivated Comments 07/15/2019 9:18 PM 07/20/2019 4:20 PM * Full Code Date Activated Date Inactivated Comments 07/07/2019 4:33 PM 07/10/2019 6:22 PM Care Teams Lean Manufacturing Leader Relationship Specialty Start Date End Date Needs Pcp, [place], [place] [address] PCP - General 02/28/21
--- OUTSIDE RECORDS SUMMARY | 2024-07-21 16:02 | XMS_ITS ---
Author Organization [facility] Care Team Providers Care Assistant Facility Manager Name Role Phone ^\\, ^\\ Unavailable Unavailable Orquidea Aleman Unavailable Unavailable Tboias Martin Unavailable Unavailable Lul Hunter Unavailable Unavailable Allergies and adverse reactions Code CodeSystem Substance Reaction Severity StartDate Concern Status Gadolinium Unknown 07/10/2019 active CAT HAIR EXTRACT Unknown 07/10/2019 acti ve 1227 RXNORM Auranofin Unknown 07/10/2019 active Care Team Name Role Address Phone Organization Dates Lul Hunter PCP [facility] [facility] [address], [place], [address], [place] (Office): [facility] [place] 07/10/2019 - 07/16/2019 ^\\ ^\\ Attending Physician [facility] 07/10/2019 - 07/16/2019 Orquidea Aleman Attending Physician [facility] [place], [address], [place] (Office[place] : (Pager): [facility] [place] 07/10/2019 - 07/16/2019 Tobias Martin Attending Physician [address], [place], [address], [place]Office[place] : [facility] [place] 07/10/2019 - 07/16/2019 Immunizations Immunization Status Vaccine Details Vaccine Code CodeSystem Date Notes Pneumovax Dose 1 completed pneumococcal polysaccharide vaccine, 23 valent 33 CVX created date: 07/13/2019 administere d date: 03/25/2007 TB 2 Step Mantoux Skin Test completed tuberculin skin test; unspecified formulation lotNumber: [id number] expiry: 08/01/2021 Mfg: [employer] Given 0.1 ml Right Forearm intradermally Step [...] CodeSystem Concern Status 1 ANXIETY DISORDER, UNSPECIFIED 749698632 SNOMED CT active 2 DECREASED WHITE BLOOD CELL COUNT, UNSPECIFIED [address] active 3 DIVERTICULITIS OF LARGE INTESTINE WITHOUT PERFORATION OR ABSCESS WITHOUT BLEEDING [address] active 4 FIBROMYALGIA [address] active 5 HYPERLIPIDEMIA, UNSPECIFIED [address] active 6 HYPOTHYROIDISM, UNSPECIFIED [address] active 7 JUVENILE RHEUMATOID POLYARTHRITIS (SERONEGATIVE) [address] active 8 LEUKOPLAKIA OF VULVA [address] active 9 MAJOR DEPRESSIVE DISORDER, RECURRENT, UNSPECIFIED [address] active 10 MIGRAINE WITHOUT AURA, NOT INTRACTABLE, WITHOUT STATUS MIGRAINOSUS [address] active 11 OTHER INTERVERTEBRAL DISC DEGENERATION, LUMBOSACRAL REGION 38439683 SNOMED CT active 12 OTHER PSYCHOACTIVE SUBSTANCE DEPENDENCE, IN REMISSION 7400849384 SNOMED CT active 13 OTHER SPECIFIED DISORDERS OF BONE DENSITY AND STRUCTURE, UNSPECIFIED SITE 66800507 SNOMED CT active 14 PERIPROSTHETIC FRACTURE AROUND INTERNAL PROSTHETIC RIGHT HIP JOINT, SUBSEQUENT ENCOUNTER 57026819871838531 SNOMED CT active 15 PLANTAR FASCIAL FIBROMATOSIS 28675190 SNOMED CT active 16 SARCOIDOSIS OF LUNG 71022604 SNOMED CT active 17 SENSORINEURAL HEARING LOSS, BILATERAL 928893339 SNOMED CT active 18 UNSPECIFIED FRACTURE OF LOWER END OF RIGHT FEMUR, SUBSEQUENT ENCOUNTER FOR CLOSED FRACTURE WITH NONUNION 109368990 SNOMED CT active 19 UNSPECIFIED TEMPOROMANDIBULAR JOINT DISORDER, UNSPECIFIED SIDE 94017651 SNOMED CT active 20 VITAMIN D DEFICIENCY, UNSPECIFIED 52249945 SNOMED CT active Reason for Referral No Reasons for Referral Entered Social History Social History Observation Description Start Date End Date Code Code System Current Smoking Status Tobacco smoking consumption unknown 925104074 SNOMED CT Sex Assigned At Female 1960 86971-7 [facility] Vital Signs Code Code System Vitals Name Values and Units Timing Information 81456-9 LOINC Pain Level Value=4.0 07/15/2019 9279-1 LOINC Respiratory Rate Value=16.0 Units=/m in 07/15/2019 8462-4 LOINC Blood Pressure-Diastolic Value=68 Un its=mmHg 07/15/2019 8480-6 LOINC Blood Pressure-Systolic Value=98 Uni ts=mmHg 07/15/2019 8310-5 LOINC Body Temperature Value=96.9 Units= F 07/15/2019 8867-4 LOINC Heart rate Value=91.0 Units=/min 09/2019 02751-0 LOINC O2 % BldC Oximetry Value=98.0 Units= % 07/15/2019 46941-6 LOINC Weight Gefog=649.9 Units=Lbs 07/2019 8302-2 LOINC Height Value=68.0 Units=Inches 07/10/2019
--- OUTSIDE RECORDS SUMMARY | 2024-07-21 16:03 | XMS_ITS | Encounter Summary ---
Author Organization [employer] Address [address], [place] [address] Care Team Providers Care Sales Service Rep Name Role Phone Needs Pcp, Assignment Primary Care Provider [phone] Encounter Details Date Type Department Care Team (Late st Contact Info) Description 07/16/2019 Lab Requisition [facility] [address] [facility] [place], [place] [address] Lul Hunter MD [address] [place], [place] [phone] Encounter for surgical aftercare following surgery on [...] organs documented in this encounter Care Teams Sales Service Rep Relationship Specialty Start Date End Date Needs Pcp, [place], [place] [address] PCP - General 02/28/21 documented as of this encounter
--- OUTSIDE RECORDS SUMMARY | 2024-07-21 16:03 | XMS_ITS | Encounter Summary ---
Author Organization [employer] Address [address] [address] Care Team Providers Care Shove Up Name Role Phone Needs Pcp, Assignment Primary Care Provider [phone] Reason for Visit * Auth/Cert Specialty Diagnoses / Procedures Referred By Contac t Referred To Contact Diagnoses Diarrhea of presumed infectious origin Fibromyalgia Diarrhea of presumed infectious origin Fibromyalgia Diarrhea of presumed infectious origin Fibromyalgia Referral ID Status Reason Start Date Expiration Date Visits Re quested Visits Authorized [id number] 1 1 Encounter Details Date Type Department Care Team (Latest Contact Info) Description 07/15/2019 Lab Requisition [facility] [address] [facility] [place], [place] [address] Lul Hunter MD [address] [place], [place] [phone] Enterocolitis due to Clostridium difficile, not specified [...] C.DIFFICILE TOXIN,MOLECULAR DETECTION Routine 07/15/2019 10:00 PM MI[employer]OSOFT NET DEVELOPER Enterocolitis due to Clostridium difficile, not specified as recurrent documented in this encounter Results * (ABNORMAL) C.Difficile Toxin,Molecular Detection, (07/15/2019 10:00 PM MICROS[employer]FT NET DEVELOPER) C.difficile Detected(A ) Not Detected 07/15/2019 11:30 PM MICROSOFT NET DEVELOPER [facility] Stool Non-blood Collection / Unknown 07/15/2019 10:00 PM MICROSOFT NET DEVELOPER 07/15/2019 10:24 PM MICROSOFT NET DEVELOPER Narrative [facility] - 07/15/2019 11:30 PM MI[employer]OS[employer]FT NET DEVELOPER Methodology: Qualitative real-time PCR assay to detect the Clostridium difficile toxin B gene. us Lul Hunter MD LAB_1 Final Result [facility] [address] documented in this encounter Visit Diagnoses Diagnosis Enterocolitis due to Clostridium difficile, not specified as recurrent documented in this encounter Care Teams Shove Up Relationship Specialty Start Date End Date Needs Pcp, [place] [address] PCP - General 02/28/21 documented as of this encounter
--- OUTSIDE RECORDS SUMMARY | 2024-07-21 16:03 | XMS_ITS | Encounter Summary ---
Author Organization [employer] Address [address], [place] [address] Care Team Providers Care Echo Vascular Technologist Name Role Phone Needs Pcp, Assignment Primary Care Provider Encounter Details Date Type Department Care Team (Late st Contact Info) Description 07/12/2019 Lab Requisition [facility] [address] [facility]. [place], [place] [address] Lul Hunter MD [address] [place], [place] [phone] Encounter for surgical aftercare following surgery on [...] BASIC METABOLIC PANEL Routine 07/13/2019 7:00 AM EDGER MACHINE OPERATOR Encounter for surgical aftercare following surgery on the nervous system COMPLETE BLOOD COUNT-NO DIFF Routine 07/13/2019 7:00 AM EDGER MACHINE OPERATOR Encounter for surgical aftercare following surgery on the nervous system documented in this encounter Results * (ABNORMAL) Basic Metabolic Panel (07/13/2019 7:00 AM EDGER MACHINE OPERATOR) Sodium 136 136 - 145 mmol/L 07/13/2019 12:35 PM EDGER MACHINE OPERATOR [facility] Potassium 4.7 3.5 - 5.1 mmol/L 07/13/2019 12:35 PM EDGER MACHINE OPERATOR [facility] Chloride 100 98 - 109 mmol/L 07/13/2019 12:35 PM EDGER MACHINE OPERATOR [facility] CO2 27 20 - 29 mmol/L 07/13/2019 12:35 PM EDGER MACHINE OPERATOR [facility] Anion Gap 9 7 - 16 mmol/L 07/13/2019 12:35 PM EDGER MACHINE OPERATOR [facility] Calcium 9.2 8.4 - 10.4 mg/dL 07/13/2019 12:35 PM EDGER MACHINE OPERATOR [facility] BUN 18 7 - 26 mg/dL 07/13/2019 12:35 PM EDGER MACHINE OPERATOR [facility] Creatinine 0.76 0.55 - 1.02 mg/dL 07/13/2019 12:35 PM EDGER MACHINE OPERATOR [facility] GFR, Estimated >60 >60 mL/min/1.7 3m2 07/13/2019 12:35 PM EDGER MACHINE OPERATOR [facility] GFR, Est If >60 >60 mL/min/1.7 3m2 07/13/2019 12:35 PM EDGER MACHINE OPERATOR [facility] Glucose 105(H) 70 - 100 mg/dL 07/13/2019 12:35 PM EDGER MACHINE OPERATOR [facility] Comment:The given reference range is for the fasting state. Non-fasting reference range for glucose is 70 - 180 mg/dL. Hours Fasting Unknown 07/13/2019 12:35 PM EDGER MACHINE OPERATOR [facility] Blood Venipuncture / Unknown 07/13/2019 7:00 AM EDGER MACHINE OPERATOR 07/13/2019 10:40 AM EDGER MACHINE OPERATOR us Lul Hunter MD LAB_1 Final Result [facility] [address] * (ABNORMAL) Complete Blood Count-No Diff (07/13/2019 7:00 AM EDGER MACHINE OPERATOR) WBC 4.7 3.5 - 10.5 x10(9)/L 07/13/2019 11:17 AM EDGER MACHINE OPERATOR [facility] RBC 3.19(L) 3.90 - 5.03 x10(12)/L 07/13/2019 11:17 AM EDGER MACHINE OPERATOR [facility] Hemoglobin 10.1(L) 12.0 - 15.5 g/dL 07/13/2019 11:17 AM EDGER MACHINE OPERATOR [facility] HCT 31.2(L) 34.9 - 44.5 % 07/13/2019 11:17 AM EDGER MACHINE OPERATOR [facility] MCV 97.8 80.0 - 100.0 fL 07/13/2019 11:17 AM EDGER MACHINE OPERATOR [facility] MCH 31.7 27.6 - 33.3 pg 07/13/2019 11:17 AM EDGER MACHINE OPERATOR [facility] MCHC 32.4 31.5 - 35.2 g/dL 07/13/2019 11:17 AM EDGER MACHINE OPERATOR [facility] RDW 11.7(L) 11.9 - 15.5 % 07/13/2019 11:17 AM EDGER MACHINE OPERATOR [facility] Platelets 221 150 - 450 x10(9)/L 07/13/2019 11:17 AM EDGER MACHINE OPERATOR [facility] Automated NRBC 0 <=0 /100 WBC 07/13/2019 11:17 AM EDGER MACHINE OPERATOR [facility] Blood Venipuncture / Unknown 07/13/2019 7:00 AM EDGER MACHINE OPERATOR 07/13/2019 10:44 AM EDGER MACHINE OPERATOR us Lul Hunter MD LAB_1 Final Result Performing Organization Address City/State/[facility] Co de Phone Number [facility] [address] [place] [address], [facility] documented in this encounter Visit Diagnoses Diagnosis Encounter for surgical aftercare following surgery on the nervous system documented in this encounter Care Teams Echo Vascular Technologist Relationship Specialty Start Date [place] [address] PCP - General 02/28/21 documented as of this encounter
== END 2024-07-21 16:08 | disposition home or self-care (01) ==
LOC: ED 15:59
PROVIDERS: Emergency Provider Family Medicine; PCP Family Medicine
DX: S51.002A Unspecified open wound of left elbow, initial encounter (principal)
CPT/HCPCS: 99282

== ENCOUNTER 2024-08-13 19:28 | Outpatient (CLI) | payer MEDICARE, BC, SELFPAY | END 2024-08-13 19:29 | disposition home or self-care (01) | LOC: NFLDREF 08-19 17:00 | PROVIDERS: PCP Family Medicine; Referring Provider Family Medicine | DX: R30.0 Dysuria (principal) | CPT/HCPCS: 87086 ==

== ENCOUNTER 2024-10-10 11:35 | Emergency (ER) | payer MEDICARE, BC, SELFPAY ==
--- OUTSIDE RECORDS SUMMARY | 2015-03-31 08:33 | XMS_ITS | Continuity of Care Document ---
Author Organization [facility] Address [address] [address] [place] [address] Care Team Providers Care Job Compositor Name Role Phone [place], [place] Unavailable Unav ailable Procedures Procedure Date Colono Pt Doc Pt W/o Advance Directives Directive Yes / No Effective Date File Name No Information Encounters Encounter Description Practice Location Reason(s) For Visit Diagnoses Date Provider Providers Copied on Encounter [facility], [address] [address], [place], [place], [id number], [facility] [place] No Information [facility]. [address] [address], [place], [place], [id number], . tel:[phone] Family History Family Member Type Diagnosis Age [...]
--- OUTSIDE RECORDS SUMMARY | 2015-03-31 08:33 | XMS_ITS | Continuity of Care Document ---
Author Organization [facility] Address [address] [address] [place] [address] Care Team Providers Care Surface Mount Technology Operator Name Role Phone [place], [place] Unavailable Unav ailable Procedures Procedure Date Colono Pt Doc Pt W/o Advance Directives Directive Yes / No Effective Date File Name No Information Encounters Encounter Description Practice Location Reason(s) For Visit Diagnoses Date Provider Providers Copied on Encounter [facility], [address] [address], [place], [place], [id number], [facility] [place] No Information [facility]. [address] [address], [place], [place], [id number], . tel:[phone] Family History Family Member Type Diagnosis Age At Onset No Information Payers Payer name Insurance type Covered green party ID Authoriza tion(s) No Information Social [...]
--- OUTSIDE RECORDS SUMMARY | 2022-02-11 08:00 | XMS_ITS | Continuity of Care Document ---
Author Organization [facility] Address [address] [address] [place] [address] Phone Care Team Providers Care Maintenance Foreman Name Role Phone Tavia Horne Unavailable Unavailable Medications Medication Instructions Dosage Effective Dates (start - stop) Status Comments lorazepam 0.5 mg tablet take 1 tablet by ORAL route every day as needed as needed 0.5 MG - Active CEPHALEXIN (unknown strength) take 1 capsule by oral route every 6 hours Not Available - Active trazodone 50 mg tablet take 1 Tablet by oral route every day at bedtime 50 MG - Active sertraline 25 mg tablet take 1 Tablet by oral route every day 25 MG - Active estradiol 0.5 mg tablet take 1 tablet by oral route every day days 1-21 0.5 MG - Active liothyronine 5 mcg tablet take 2 tablet by oral route 2 times every day 10 MCG - Active buspirone 5 mg tablet take 2 tablet by oral route every day 10 MG - Active buspirone 7.5 mg tablet take 1 tablet by oral route every day 7.5 MG - Active fiber 2 gram chewable tablet take as directed - Active Vitamin D-3 1,000 unit Chewable Tab take 1 Tablet by Oral route every day 1 Tablet - Active ANTACID (unknown strength) take 2 tablet by oral route as needed or as directed. Not to exceed 24 tablets in 24hrs Not Available - Active OMEGA-3 FISH OIL (unknown strength) take 1 - 2 Tablet by Oral route every day Not Available - Active Procedures Procedure Date CRS Charges Telephone E&M III 21-30 Min SUSU CRS Charges CRS Charges Ugi Endo; W/bx 1/mx Level Iv-surg Path Gross/micro 14 Level Iv-surg Path Gross/micro 14 Offic/outpt E&m Estab Mod-hi 2 14 [id number] G8420 Colonoscopy Flex; Dx (jan Pro) 13 CRS Charges Colonoscopy Flex; Dx (jan Pro) 08 Colon W/submucosal Inject Colonoscopy Flex; W/remov Offic Cons New/estab Mod- Advance Directives Directive Yes / No Effective Date File Name No Information Encounters Encounter Description Practice Location Reason(s) For Visit Diagnoses Date Provider Providers Copied on Encounter [email or web address] JENNIFER GUERRERO [address] [address], [place], [id number], [place] tel:[phone] [facility] No Information Edstrchantal Squires. [address] [facility] [address], [place], [place], [id number], [place]. tel:[phone] [email or web address] CESAR [address] [address], [place], [id number], [place] tel:[phone] [facility] Diverticulosis of colon (without mention of hemorrhage)Dvr tclos of lg int w/o perforation or abscess w/o bleeding No Information Referring Provider: Referral Self, USE FOR SELF REFERRALS. [email or web address] JENNIFER GUERRERO [address] [address], [place], [id number], [place] tel:[phone] [facility] No Information 2 No Information Telephone E&M III 21-30 Min SUSU [facility], [address] [address], [place], [address], [place] tel:[phone] [facility] GI Symptoms or Concerns (chief complaint) Diverticulitis 2 [employer] Squires. [address] [facility] [address], [place], [address], [place]. tel:[phone] Referring Provider: Referral Self, USE FOR SELF REFERRALS. [facility], [address] [address], [place], [address], [place] tel:[phone] [facility] No Information 2 Link MD Null. [address] [facility] [address], [place], [id number], [place]. tel:[phone] [facility], [address] [address], [place], [address], [place] tel:[phone] [facility] Diverticulosis of colon (without mention of hemorrhage)Per pinky history of colonic polypsDvtrcli of lg int w/o perforation or abscess w/o bleedingDvrtcl os of lg int w/o perforation or abscess w/o bleedingPerson al history of colonic polyps Aug-0 9 No Information Referring Provider: Nivia Bruno MD, [address] [place] [address], [address]. tel:[phone] [facility], [address] [address], [place], [id number], [place] tel:[phone] [facility] History of colon polypsDivertic ular disease of large intestineDvtrc li of lg int w/o perforation or abscess w/o bleedingDvrtcl os of lg int w/o perforation or abscess w/o bleedingPerson al history of colonic polyps - 5 No Information Referring Provider: Heladio Martins MD, [address] [place] [address], [address]. tel:[phone] [email or web address], [address] [address], [place], [address], [place] tel:[phone] [facility] LUQ Pain 4 Tatiana Ray. [address] [place] [address], [id number], [place]. tel:[phone] [facility], [address] [address], [place], [address], [place] tel:[phone] [facility] Hiatal HerniaPolyp-in chalo/rect/stom- unc BehLUQ PainGastric Polyp-benignGa stric Polyp-benignLU Q PainHiatal Hernia 4 Nelson Ferris. [address] [place] [address], [id number], [place]. tel:[phone] Referring Provider: Heladio Martins MD, [address] [place] [address], [address]. tel:[phone] [facility], [address] [address], [facility], [address], [place] tel:[phone] [facility] LUQ Pain 4 Tatiana Ray. [address] [place] [address], [id number], [place]. tel:[phone] Referring Provider: Heladio Martins MD, [address] [place] [address], [address]. tel:[phone] Offic/outpt E&m Estab Mod-hi 2 [facility], [address] [address], [place], [address], [place] tel:[phone] [facility] LUQ PainDiarrhea 4 Tatiana Ray. [address] [place] [address], [id number], [place]. tel:[phone] Referring Provider: Heladio Martins MD, [address] [place] [address], [address]. tel:[phone] [facility], [address] [address], [place] [facility] [place], [address], [place] tel:[phone] [facility] Diverticulosis Of ColonHx Of Digest Disease NecDiverticulo sis Of ColonHx Of Digest Disease Nec 3 No Information Referring Provider: Heladio Martins MD, [address] [place] [address], [place], [address]. tel:[phone] [facility], [address] [address], [place], [address], [place] tel:[phone] [facility] Diverticulosis Of ColonDiverticu litis Of ColonDiverticu litis Of Colon 2 No Information Referring Provider: Heladio Martins MD, [address] [place] [address], [place], [address]. tel:[phone] [facility], [address] [address], [place], [id number], [place] tel:[phone] [facility] Colon Cancer ScreeningPerso nal History Colon PolypsDivertic ulosis Of Colon 8 No Information Referring Provider: Daniel Griffin, [address] [place] [address], [place], [address]. tel:[phone] [facility], [address] [address], [place], [id number], [place] tel:[phone] [facility] Personal history colon polyps 6 No Information Offic Cons New/estab [facility], [address] [address], [place], [address], [place] tel:[phone] [facility] Diverticulosis Of ColonPolyp-int es/rect/stom-u nc beh 6 No Information Family History Family Member Type Diagnosis Age At Onset Father Problem (finding) Colon polyps Sister Problem (finding) Colon polyps Sister Problem (finding) gallbladder disease First degree family history Problem (finding) No Family history of No history of Colon Polyps Sister Problem (finding) diverticulitis of colon Mother Problem (finding) diverticulitis of colon First degree family history Problem (finding) No history of Cancer, colon First degree family history Problem (finding) No history of Ulcerative Colitis Mother Problem (finding) Colon polyps First degree family history Problem (finding) No history of Crohn's Immunizations Vaccine Date Status Comments SARS-COV-2 (COVID-19) vaccin e, mRNA, spike protein, LNP, preservative free, 30 mcg/0.3mL dose, juice-sucrose formulation administered Note: MII C bi- directional interface ; Source: Other Registry Afluria Qd administered Note: M IIC bi-directional interface ; Source: Other Registry SARS-COV-2 (COVID-19) vaccin e, mRNA, spike protein, LNP, preservative free, 30 mcg/0.3mL dose administered Note: MIIC bi-direct ional interface ; Source: Other Registry zoster vaccine recombinant administered N ote: [facility] bi-directional interface ; Source: Other Registry SARS-COV-2 (COVID-19) vaccin e, mRNA, spike protein, LNP, preservative free, 30 mcg/0.3mL dose administered Note: [facility]IC bi-direct ional interface ; Source: Other Registry SARS-COV-2 (COVID-19) vaccin e, mRNA, spike protein, LNP, preservative free, 30 mcg/0.3mL dose administered Note: MIIC bi-direct ional interface ; Source: Other Registry zoster vaccine recombinant administered N ote: MIIC bi-directional interface ; Source: Other Registry tetanus toxoid, reduced diphtheria toxoid, and acellular pertussis vaccine, adsorbed administered Note: [facility] b i-directional interface ; Source: Other Registry Influenza, seasonal, injecta ble, preservative free administered Note: [facility] bi-direct ional interface ; Source: Other Registry Influenza, seasonal, injectable administe red Note: [facility] bi- directional interface ; Source: Other Registry Influenza, seasonal, injecta ble, preservative free administered Note: [facility] bi-direct ional interface ; Source: Other Registry Influenza, seasonal, injectable administe red Note: [facility] bi- directional interface ; Source: Other Registry Influenza, seasonal, injectable administe red Note: MI[facility] bi- directional interface ; Source: Other Registry typhoid Vi capsular polysaccharide vaccine administered Note: [facility] bi-dir ectional interface ; Source: Other Registry Havrix administered Note: [facility] bi-d irectional interface ; Source: Other Registry Influenza, seasonal, injectable administe red Note: [facility] bi- directional interface ; Source: Other Registry Pneumovax 23 administered Note: [facility] bi-d irectional interface ; Source: Other Registry influenza virus vaccine, unspecified formulation administered Note: [facility]IC bi-di rectional interface ; Source: Other Registry tetanus toxoid, reduced diphtheria toxoid, and acellular pertussis vaccine, adsorbed administered Note: [facility] b i-directional interface ; Source: Other Registry Influenza, seasonal, injectable administe red Note: MI[facility] bi- directional interface ; Source: Other Registry Influenza, seasonal, injectable administe red Note: MI[facility] bi- directional interface ; Source: Other Registry influenza virus vaccine, unspecified formulation administered Note: [facility] bi-di rectional interface ; Source: Other Registry Payers Payer name Insurance type Covered constitution party ID Authoriza tion(s) Medicare NGS [id number] Blue Cross Medicare Supplement [id number] Social History Type Description Quantity Date Captured Comments Alcohol Use Details Unknown Caffeine Use Details Unknown Tobacco Use Status No Information Smoking Status No Information Sex Female Chief Complaint And Reason For Visit No Information Reason For Referral Reason For Referral No Information Plan Of Treatment Date Type Action Status Referral Ordered: referred to Nelli Ragland MD Colorectal Surgery Recurrent diverticulitis (related to Diverticulitis) ordered Referral Ordered: referred to Nelli Ragland MD Colorectal Surgery Recurrent diverticulitis ordered Referral Ordered: CT Abdomen And Pelvis WITH Contrast Appointment date/timeframe: 06/25/2021 ordered History Of Present Illness Encounter Date Complaint History Of Prese nt Illness GI Symptoms or Concerns This is a pleasant 61-year-old female with past medical history significant for juvenile rheumatoid arthritis, fibromyalgia, depression, migraines, anxiety, recurrent diverticulitis, osteoporosis, presenting via televisit for consultation regarding recurrent diverticulitis.The patient reports that she has had repeated bouts of diverticulitis over the past 10 years. She feels that she has an episode approximately every other year. She reports having multiple CT scans and have confirmed diverticulitis in the past. She states that about 5 years ago, she was hospitalized at [facility] at which time there was evidence of mini perforation, and she required IV antibiotics.She had recurrent left lower quadrant abdominal pain on May 18, at which time she had a CT abdomen and pelvis with IV contrast through her primary care provider. I was able to review those records. This showed wall thickening in the proximal descending colon with associated fat stranding consi Functional Status Date Functional Assessmen t No Information Instructions Date Instruction Additional Infor jose de jesus Diverticulosis/Diverticulitis Re lated to Diverticulosis of colon (without mention of hemorrhage) I recommended repeat ing CT scan given persistent pain following antibiotic treatment for CT findings of diverticulitis. If CT scan shows diverticulitis has resolved, I recommend treating constipation to see if symptoms improve with MiraLax and high-fiber diet. At that point, I recommend following up with Colorectal Surgery on recommendations for elective colon resection given her history of repeated bouts of diverticulitis. She asked to see a different colorectal surgeon for 2nd opinion, and therefore I did place a referral. Would defer colonoscopy at this point given low likelihood of malignancy as the cause for those CT findings and fairly recent colonoscopy in 2018. Related to Diverticulitis Diverticulosis/Diverticulitis Re lated to Diverticulosis of colon (without mention of hemorrhage) High Fiber Diet Related to Diver ticulosis of colon (without mention of hemorrhage) Colon Cancer Prevention Related to Diverticulosis of colon (without mention of hemorrhage) Colon Cancer Prevention Related to Diverticular disease of large intestine High Fiber Diet Related to Diver ticular disease of large intestine Diverticulosis/Diverticulitis Re lated to Diverticular disease of large intestine Assessments Type Assessment Date No Information Patient Care Teams Name Effective Dates (start - stop) Status Members No Information
--- OUTSIDE RECORDS SUMMARY | 2022-02-11 08:00 | XMS_ITS | Continuity of Care Document ---
Author Organization [facility] Address [address] [address] [place] [address] Phone Care Team Providers Care Molder Setter Name Role Phone Tavia Horne Unavailable Unavailable [...] Diagnoses Date Provider Providers Copied on Encounter [facility] JENNIFER GUERRERO [address] [address], [place], [id number], [place] tel:[phone] [facility] No Information Edstrchantal Squires. [address] [facility] [address], [place], [place], [id number], [place]. tel:[phone] [facility] CES[facility] [address] [address], [place], [id number], [place] tel:[phone] [facility] Diverticulosis of colon (without mention of hemorrhage)Dvr tclos of lg int w/o perforation or abscess w/o bleeding No Information Referring Provider: Referral Self, USE FOR SELF REFERRALS. [facility] JENNIFER GUERRERO [address] [address], [place], [id number], [place] tel:[phone] [facility] No Information 2 No Information Telephone E&M III 21-30 Min SUSU [facility], [address] [address], [place], [id number], [place] tel:[phone] [facility] GI Symptoms or Concerns (chief complaint) Diverticulitis 2 [employer] [facility]ES[facility] Squires. [address] [facility] [address], [place], [address], [place]. tel:[phone] Referring Provider: Referral Self, USE FOR SELF REFERRALS. [facility], [address] [address], [place], [address], [place] tel:[phone] [facility] [place] [facility] No Information 2 Link MD Null. [address] [facility] [address], [place], [id number], [place]. tel:[phone] [facility], [address] [address], [place], [address], [place] tel:[phone] [facility] Diverticulosis of colon (without mention of hemorrhage)Per pinky history of colonic polypsDvtrcli of lg int w/o perforation or abscess w/o bleedingDvrtcl os of lg int w/o perforation or abscess w/o bleedingPerson al history of colonic polyps Aug-0 9 No Information Referring Provider: Nivia Bruno MD, [address] [place] [address], [address]. tel:[phone] [facility], [address] [address], [place], [address], [place] tel:[phone] [facility] History of colon polypsDivertic ular disease of large intestineDvtrc li of lg int w/o perforation or abscess w/o bleedingDvrtcl os of lg int w/o perforation or abscess w/o bleedingPerson al history of colonic polyps - 5 No Information Referring Provider: Heladio Martins MD, [address] [place] [address], [address]. tel:[phone] [facility] [employer] [facility], [address] [address], [place], [address], [place] tel:[phone] [facility] LUQ Pain 4 Tatiana Ray. [address] [place] [address], [id number], [place]. tel:[phone] [facility], [address] [address], [place], [address], [place] tel:[phone] [facility] Hiatal HerniaPolyp-in chalo/rect/stom- unc BehLUQ PainGastric Polyp-benignGa stric Polyp-benignLU Q PainHiatal Hernia 4 Nelson Ferris. [address] [place] [address], [id number], [place]. tel:[phone] Referring Provider: Heladio Martins MD, [address] [place] [address], [address]. tel:[phone] [facility], [address] [address], [place] [facility], [place], [id number], [place] tel:[phone] [facility] LUQ Pain 4 Tatiana Ray. [address] [place] [address], [id number], [place]. tel:[phone] Referring Provider: Heladio Martins MD, [address] [place] [address], [address]. tel:[phone] Offic/outpt E&m Estab Mod-hi 2 [facility], [address] [address], [facility], [address], [place] tel:[phone] [facility] LUQ PainDiarrhea 4 Tatiana Ray. [address] [place] [address], [id number], [place]. tel:[phone] Referring Provider: Heladio Martins MD, [address] [place] [address], [address]. tel:[phone] [facility], [address] [address], [facility], [address], [place] tel:[phone] [facility] [place] [facility] Diverticulosis Of ColonHx Of Digest Disease NecDiverticulo sis Of ColonHx Of Digest Disease Nec 3 No Information Referring Provider: Heladio Martins MD, [address] [place] [address], [place], [address]. tel:[phone] [facility], [address] [address], [place], [address], [place] tel:[phone] [facility] Diverticulosis Of ColonDiverticu litis Of ColonDiverticu litis Of Colon 2 No Information Referring Provider: Heladio Martins MD, [address] [place] [address], [place], [address]. tel:[phone] [facility], [address] [address], [place], [id number], [place] tel:[phone] [facility] Colon Cancer ScreeningPerso nal History Colon PolypsDivertic ulosis Of Colon 8 No Information Referring Provider: Daniel Griffin, [address] [place] [address], [place], [address]. tel:[phone] [facility], [address] [address], [place], [address], [place] tel:[phone] [facility] Personal history colon polyps 6 No Information Offic Cons New/estab [facility]- [facility], [address] [address], [place], [address], [place] tel:[phone] [facility] Diverticulosis Of ColonPolyp-int es/rect/stom-u nc beh 6 [...] Registry Payers Payer name Insurance type Covered libertarian ID Authoriza tion(s) Medicare NGS [id number] Blue Cross Medicare Supplement [id number] Social History Type Description Quantity Date Captured [...] 5 years ago, she was hospitalized at [facility] at which time there was evidence of [...]
--- OUTSIDE RECORDS SUMMARY | 2023-03-18 10:01 | XMS_ITS | Continuity of Care Document ---
Author Organization [facility] Address [address] [place] [address] Phone Care Team Providers Care Control Clerk Head Name Role Phone Sanchez Lay MD Unavailable Unavailable Advance Directives Directive Yes / No Effective Date File Name No Information Encounters Encounter Description Practice Location Reason(s) For Visit Diagnoses Date Provider Providers Copied on Encounter [facility], [address], [place], [address], [place] tel:[phone] [facility], No Information Rosanne Bradford. [facility] [address], [place], [address], [place]. tel:[phone] Family History Family Member Type Diagnosis Age [...]
--- OUTSIDE RECORDS SUMMARY | 2023-03-18 10:01 | XMS_ITS | Continuity of Care Document ---
Author Organization [facility] Address [address] [place] [address] Phone Care Team Providers Care Plant Physiology Teacher Name Role Phone Sanchez Lay MD Unavailable Unavailable Advance Directives Directive Yes / No Effective Date File Name No Information Encounters Encounter Description Practice Location Reason(s) For Visit Diagnoses Date Provider Providers Copied on Encounter [facility], [address], [place], [address], [place] tel:[phone] [facility], No Information Rosanne Bradford. [facility] [address], [place], [address], [place]. tel:[phone] Family History Family Member Type Diagnosis Age [...]
--- OUTSIDE RECORDS SUMMARY | 2023-03-18 10:01 | XMS_ITS | Continuity of Care Document ---
Author Organization [facility] Address [address] [place] [address] Phone Care Team Providers Care Finance Admin Name Role Phone Sanchez Lay MD Unavailable Unavailable Advance Directives Directive Yes / No Effective Date File Name No Information Encounters Encounter Description Practice Location Reason(s) For Visit Diagnoses Date Provider Providers Copied on Encounter [facility], [address], [place], [address], [place] tel:[phone] [facility], No Information Rosanne Bradford. [facility] [address], [place], [address], [place]. tel:[phone] Family History Family Member Type Diagnosis Age At Onset No Information Payers Payer name Insurance type Covered democrat ID Authoriza tion(s) No Information Social History [...]
--- OUTSIDE RECORDS SUMMARY | 2024-09-16 10:04 | XMS_ITS | Continuity of Care Document ---
Author Organization [facility] rosa maria Address [address] [place] [address] Phone Care Team Providers Care Dental Mold Maker Name Role Phone Will Leif CARLTON Unavailable Unavailabl e Allergies, Adverse Reactions, Alerts Substance Reaction Status Criticality GOLD TRIBROMIDE Active No Informati on Medications Medication Instructions Dosage Effective Dates (start - stop) Status Comments acetaminophen ER 650 mg tablet,extended release take 2 tablet by oral route every 12 hours as needed swallowing whole with water. Do not break, crush, dissolve and/or chew. 1300 MG - Active buspirone 10 mg tablet take [...] mg tablet - Active Procedures Procedure Date OFFICE/OUTPATIENT VISIT, EST Drug Urine Toxology With Chromatography OFFICE/OUTPATIENT VISIT, NEW PT-FOCUSED HLTH RISK ASSMT OFFICE/OUTPATIENT VISIT, NEW Advance Directives Directive Yes / No Effective Date File Name No Information Encounters Encounter Description Practice Location Reason(s) For Visit Diagnoses Date Provider Providers Copied on Encounter [facility], [address] [place] [address], [id number] , [place] tel: [phone] [facility] No Information 5 Jaleel Yadav. [address] [place] [address] [place], [id number] , [place]. tel: [phone] OFFICE/OUTPA TIENT VISIT, [facility], [address] [place] [address] [place], [id number] , [place] tel: [phone] [facility] right LE pain (chief complaint) Causalgia of right lower limbLong term (current) use of opiate analgesicLow back pain, unspecifiedPain in left shoulder 4 Toribio Iraheta. [address] [place], [place] [address], [id number] , [place]. tel: [phone] Referring Provider: Leif Walsh, [address] [place], [place] [address] [place], [address] . tel:[phone] [facility], [address] [place] [address], [id number] , [place] tel: [phone] [facility] No Information Nolan Gilberto. [facility], [address], [place], [address], [place]. tel: [phone] OFFICE/OUTPA TIENT VISIT, [facility], [address] [place] [address], [id number] , [place] tel: [phone] [facility] Leg Pain (chief complaint) Encounter for therapeutic drug level monitoringLong term (current) use of opiate analgesicLow back pain, unspecifiedPain in left shoulderEncounter for screening for other disorderCausalgia of right lower limb 1 Nolan Gilberto. [employer], [address], [place], [address], [place]. tel: [phone] Referring Provider: Leif Walsh, [address] [place], [place] [address] [place], [address] . tel:[phone] OFFICE/OUTPA TIENT VISIT, [facility], [address] [facility] [place], [id number] , [place] tel:[phone] [facility] [place] back and hip pain (chief complaint) LumbagoCervicalgia [address] Scout [address]iz[address] [facility] [place], [id number] , [place]. tel: [phone] Referring Provider: Leif Walsh, [address] [facility] [place], [address] . tel:[phone] Family History Family Member Type Diagnosis Age At Onset Father Problem (finding) back issues Payers Payer name Insurance type Covered constitution party ID Maci hampton(s) Medicare MB [id number] Surveying And Mapping (SAM) Senior Gold Supp DON'TUSE BL [id number] Social History Type Description Quantity Date Captured Comments Alcohol Use Details Unknown Caffeine Use Details Unknown Tobacco Use Status No Information Smoking Status No Information Sex Female Chief Complaint And Reason For Visit No Information Reason For Referral Reason For Referral No Information Plan Of Treatment Date Type Action Status Goal UDT. Due on due Goal AST (SGOT). Due on due Goal Review Allergy List. Due on due Goal ALT (SGPT). Due on due Goal Order Annual PT. Due on due Goal Weight. Due on d ue Goal HEATING AND REFRIGERATION INSPECTOR Scanned. Due on 025 due Goal Height. Due on d ue Goal FIT-DNA. Due on due Goal Zoster vaccine (1st). Due on due Goal Tobacco screening. Due on Oc due Goal Tobacco Use. Due on 025 due Goal Hepatitis C screening. Due o n due Goal TOURIST AGENT Paperwork. Due on due Goal Creatinine. Due on [address]-Colonography. Due on due Goal PHQ-9. Due on du e Goal Unhealthy drug use screening . Due on due Goal HPV. Due on due Goal Update Social History. Due o n due Goal Medication Reconciliation. D ue on due Goal FIT. Due on due Goal OARS. Due on due Goal Height. Due on d ue Goal Review Allergy List. Due on due Goal ALT (SGPT). Due on 24 due Goal Zoster vaccine (1st). Due on due Goal Medication Reconciliation. D ue on due Goal Unhealthy drug use screening . Due on due Goal HEATING AND REFRIGERATION INSPECTOR Scanned. Due on 024 due Goal PHQ-9. Due on du e Goal HPV. Due on due Goal Weight. Due on d ue Goal Update Social History. Due o n due Goal FIT-DNA. Due on due Goal OARS. Due on due Goal Hepatitis C screening. Due o n due Goal TOURIST AGENT Paperwork. Due on due Goal FIT. Due on due Goal Lipid panel. Due on due Goal Creatinine. Due on due Goal Order Annual PT. Due on due Goal UDT. Due on due Goal CT-Colonography. Due on due Goal Tobacco Use. Due on due Goal AST (SGOT). Due on due Goal AST (SGOT). Due on due Goal Creatinine. Due on due Goal HEATING AND REFRIGERATION INSPECTOR Scanned. Due on due Goal Order Annual PT. Due on due Goal TOURIST AGENT Paperwork. Due on due Goal ALT (SGPT). Due on due Goal UDT. Due on due Goal OARS. Due on due Goal Order Annual PT. Due on due Goal UDT. Due on due Goal ALT (SGPT). Due on due Goal HEATING AND REFRIGERATION INSPECTOR Scanned. Due on due Goal TOURIST AGENT Paperwork. Due on due Goal Creatinine. Due on due Goal OARS. Due on due Goal AST (SGOT). Due on 21 due Goal Review Allergy List. Due on due Goal Medication Reconciliation. D ue on due Goal Update Social History. Due o n due Goal PHQ-9. Due on du e Goal Tobacco Use. Due on 021 due Goal Height. Due on d ue Goal Weight. Due on d ue Goal Review Allergy List. Due on due Goal PHQ-9. Due on du e Goal Update Social History. Due o n due Goal Medication Reconciliation. D ue on due Goal Height. Due on d ue Goal Weight. Due on d ue Goal Tobacco Use. 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 stable. 11/18. - Reports fracturing her R femur in 2018.- Chronic neck and BL shoulder pain. Stable. 11/18.-Also reports BL TKAs and BL shoulder replacements at [facility]. - Chronic left elbow pain. Stable. 09/18.- Ongoing low back pain. Stable. - Aware of the SCS trial. Pt not interested at this time. - Previously on medical cannabis. Notes she has tried Gummies recently with friends. Requesting to be re-certified for medical cannabis today. Denies any SEs with medical cannabis. No other concerns. right LE pain The symptoms are reported as being moderate. The symptoms occur constantly. Aggravating factors include bending backwards, reaching overhead, standing, sitting. Relieving factors include walking, Cannabis. The client states the symptoms are chronic. Leg Pain Duration: chroni c. Severity level [...] pain referred by Dr. Tobias Martin through [facility]. This pain began after falling on ice and fracturing her R femur in 2018. [facility] did her initial trauma surgery at the time. Dr. Martin then completed bone grafting on her right femur recently and believes that her new femur hardware may be irritating her R hip hardware from a hip replacement in 1995. Denies any leg numbness or tingling and endorses swelling in her R thigh. She is following up at [facility] when she is able to schedule. Pain is described as aching and stiff. Pain averages 7/10.In addition, she c/o neck and lower back pain that she believes is linked to a difference in leg lengths. Denies any lower back surgeries. Further carries a exterminator dx of fibromyalgia. She has tried [...] RX on 05/08/[address] Mijares at [facility]. She takes 1-2 Dilaudid per month.Mrs. Brown is interested in pain management and medical cannabis certification through [facility]. No other concerns today. Functional Status Date Functional Assessmen t No Information Instructions Date Instruction Additional Infor mation Continue current medication Reviewed medications New medication is prescribed Follow exercise program Depression Screen Oswestry Score Assessments Type Assessment Date No Information Patient Care Teams Name Effective Dates (start - stop) Status Members No Information
--- OUTSIDE RECORDS SUMMARY | 2024-09-16 10:04 | XMS_ITS | Continuity of Care Document ---
Author Organization [facility] rosa maria Address [address] [place] [address] Phone Care Team Providers Care Assistant Research Scientist Name Role Phone Will Leif CARLTON Unavailable [...] Diagnoses Date Provider Providers Copied on Encounter [facility], [address] [place] [address], [id number] , [place] tel: [phone] [facility] No Information 5 Jaleel Yadav. [address] [place] [address] [place], [id number] , [place]. tel: [phone] OFFICE/OUTPA TIENT VISIT, [facility], [address] [place] [address] [place], [id number] , [place] tel: [phone] [facility] right LE pain (chief complaint) Causalgia of right lower limbLong term (current) use of opiate analgesicLow back pain, unspecifiedPain in left shoulder 4 Toribio Iraheta. [address] [place], [place] [address], [id number] , [place]. tel: [phone] Referring Provider: Leif Walsh, [address] [place], [place] [address] [place], [address] . tel:[phone] [facility], [address] [place] [address], [id number] , [place] tel: [phone] [facility] No Information Nolan Gilberto. [place], [address], [place], [address], [place]. tel: [phone] OFFICE/OUTPA TIENT VISIT, [facility], [address] [place] [address], [id number] , [place] tel: [phone] [facility] Leg Pain (chief complaint) Encounter for therapeutic drug level monitoringLong term (current) use of opiate analgesicLow back pain, unspecifiedPain in left shoulderEncounter for screening for other disorderCausalgia of right lower limb 1 Nolan Gilberto. [place], [address], [place], [address], [place]. tel: [phone] Referring Provider: Leif Walsh, [address] [place], [place] [address] [place], [address] . tel:[phone] OFFICE/OUTPA TIENT VISIT, [facility], [address] [facility] [place], [id number] , [place] tel:[phone] [facility] [place] back and hip pain (chief complaint) LumbagoCervicalgia 4 Scout Ortiz. [address] [facility] [place], [id number] , [place]. tel: [phone] Referring Provider: Leif Walsh, [address] [facility] [place], [address] . tel:[phone] Family History Family Member Type Diagnosis Age At Onset Father Problem (finding) back issues Payers Payer name Insurance type Covered alliance party ID Maci hampton(s) Medicare MB [id number] [employer] Senior Gold Supp DON'TUSE BL [id number] Social History Type Description Quantity Date Captured [...] Goal Weight. Due on d ue Goal ROLLER HAND Scanned. Due on 025 due Goal Height. Due on d ue Goal FIT-DNA. Due on due Goal Zoster vaccine (1st). Due on due Goal Tobacco screening. Due on Oc due Goal Tobacco Use. Due on 025 due Goal Hepatitis C screening. Due o n due Goal BROOCH MAKER NOVELTY Paperwork. Due on due Goal Creatinine. Due [...] use screening . Due on due Goal ROLLER HAND Scanned. Due on 024 due Goal PHQ-9. Due on du e Goal HPV. Due on due Goal Weight. Due on d ue Goal Update Social History. Due o n due Goal FIT-DNA. Due on due Goal OARS. Due on due Goal Hepatitis C screening. Due o n due Goal BROOCH MAKER NOVELTY Paperwork. Due on due Goal FIT. Due on due Goal Lipid panel. Due on due Goal Creatinine. Due on due Goal Order Annual PT. Due on due Goal UDT. Due on due Goal CT-Colonography. Due on due Goal Tobacco Use. Due on due Goal AST (SGOT). Due on due Goal AST (SGOT). Due on due Goal Creatinine. Due on due Goal ROLLER HAND Scanned. Due on due Goal Order Annual PT. Due on due Goal BROOCH MAKER NOVELTY Paperwork. Due on due Goal ALT (SGPT). Due on due Goal UDT. Due on due Goal OARS. Due on due Goal Order Annual PT. Due on due Goal UDT. Due on due Goal ALT (SGPT). Due on due Goal ROLLER HAND Scanned. Due on due Goal BROOCH MAKER NOVELTY Paperwork. Due on due Goal Creatinine. 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 stable. 11/18. - Reports fracturing her R femur in 2018.- Chronic neck and BL shoulder pain. Stable. 11/18.-Also reports BL TKAs and BL shoulder replacements at [place]. - Chronic left elbow pain. Stable. 09/18.- [...] pain referred by Dr. Tobias Martin through [facility]. This pain began after falling on ice and fracturing her R femur in 2018. [facility] did her initial trauma surgery at the time. Dr. Martin then completed bone grafting on her right femur recently and believes that her new femur hardware may be irritating her R hip hardware from a hip replacement in 1995. Denies any leg numbness or tingling and endorses swelling in her R thigh. She is following up at [place] when she is able to schedule. Pain is described as aching and stiff. Pain averages 7/10.In addition, she c/o neck and lower back pain that she believes is linked to a difference in leg lengths. Denies any lower back surgeries. Further carries a acid adjuster dx of fibromyalgia. She has tried PT [...] RX on 05/08/[address] Mijares at [facility]. She takes 1-2 Dilaudid per month.Mrs. Brown is interested in pain management and medical cannabis certification through [facility]. No other concerns today. Functional Status Date Functional Assessmen t No Information Instructions Date Instruction Additional Infor mation Continue current medication Reviewed medications New medication is prescribed Follow exercise program Depression Screen Oswestry Score Assessments Type Assessment Date No Information Patient Care Teams Name Effective Dates (start - stop) Status Members No Information
--- OUTSIDE RECORDS SUMMARY | 2024-09-16 10:04 | XMS_ITS | Continuity of Care Document ---
Author Organization [facility] rosa maria Address [address] [place] [address] Phone Care Team Providers Care Emergency Management Specialist Name Role Phone Will Leif CARLTON Unavailable [...] Diagnoses Date Provider Providers Copied on Encounter [facility], [address] [place] [address], [id number] , [place] tel: [phone] [facility] No Information 5 Jaleel Yadav. [address] [place] [address] [place], [id number] , [place]. tel: [phone] OFFICE/OUTPA TIENT VISIT, [facility], [address] [place] [address] [place], [place], [id number] , [place] tel: [phone] [facility] right LE pain (chief complaint) Causalgia of right lower limbLong term (current) use of opiate analgesicLow back pain, unspecifiedPain in left shoulder 4 Toribio Iraheta. [address] [place], [place] [address], [place], [id number] , [place]. tel: [phone] Referring Provider: Leif Walsh, [address] [place], [place] [address] [place], [address] . tel:[phone] [facility], [address] [place] [address], [id number] , [place] tel: [phone] [facility] No Information Nolan Gilberto. [facility], [address], [place], [address], [place]. tel: [phone] OFFICE/OUTPA TIENT VISIT, [facility], [address] [place] [address], [id number] , [place] tel: [phone] [facility] Leg Pain (chief complaint) Encounter for therapeutic drug level monitoringLong term (current) use of opiate analgesicLow back pain, unspecifiedPain in left shoulderEncounter for screening for other disorderCausalgia of right lower limb 1 Nolan Gilberto. [facility], [address], [place], [address], [place]. tel: [phone] Referring Provider: Leif Walsh, [address] [place], [place] [address] [place], [address] . tel:[phone] OFFICE/OUTPA TIENT VISIT, [facility], [address] [facility] [place], [id number] , [place] tel:[phone] [facility] [place] back and hip pain (chief complaint) LumbagoCervicalgia 4 Scout Ortiz. [address] [facility] [place], [id number] , [place]. tel: [phone] Referring Provider: Leif Walsh, [address] [facility] [place], [address] . tel:[phone] Family History Family Member Type Diagnosis Age At Onset Father Problem (finding) back issues Payers Payer name Insurance type Covered alliance party ID Maci hampton(s) Medicare MB [id number] [employer] Senior Gold Supp DON'TUSE BL [id number] Social History Type Description Quantity Date Captured [...] Goal Weight. Due on d ue Goal INDUSTRIAL HEALTH AND SAFETY PROFESSOR Scanned. Due on 025 due Goal Height. Due on d ue Goal FIT-DNA. Due on due Goal Zoster vaccine (1st). Due on due Goal Tobacco screening. Due on Oc due Goal Tobacco Use. Due on 025 due Goal Hepatitis C screening. Due o n due Goal DETACHER Paperwork. Due on due Goal Creatinine. Due [...] use screening . Due on due Goal INDUSTRIAL HEALTH AND SAFETY PROFESSOR Scanned. Due on 024 due Goal PHQ-9. Due on du e Goal HPV. Due on due Goal Weight. Due on d ue Goal Update Social History. Due o n due Goal FIT-DNA. Due on due Goal OARS. Due on due Goal Hepatitis C screening. Due o n due Goal DETACHER Paperwork. Due on due Goal FIT. Due on due Goal Lipid panel. Due on due Goal Creatinine. Due on due Goal Order Annual PT. Due on due Goal UDT. Due on due Goal CT-Colonography. Due on due Goal Tobacco Use. Due on due Goal AST (SGOT). Due on due Goal AST (SGOT). Due on due Goal Creatinine. Due on due Goal INDUSTRIAL HEALTH AND SAFETY PROFESSOR Scanned. Due on due Goal Order Annual PT. Due on due Goal DETACHER Paperwork. Due on due Goal ALT (SGPT). Due on due Goal UDT. Due on due Goal OARS. Due on due Goal Order Annual PT. Due on due Goal UDT. Due on due Goal ALT (SGPT). Due on due Goal INDUSTRIAL HEALTH AND SAFETY PROFESSOR Scanned. Due on due Goal DETACHER Paperwork. Due on due Goal Creatinine. 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 stable. 11/18. - Reports fracturing her R femur in 2018.- Chronic neck and BL shoulder pain. Stable. 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 - Chronic left elbow pain. Stable. 09/18.- [...] pain referred by Dr. Tobias Martin through [facility]. This pain began after falling on ice and fracturing her R femur in 2018. [facility] did her initial trauma surgery at the time. Dr. Martin then completed bone grafting on her right femur recently and believes that her new femur hardware may be irritating her R hip hardware from a hip replacement in 1995. Denies any leg numbness or tingling and endorses swelling in her R thigh. She is following up at [place] when she is able to schedule. Pain is described as aching and stiff. Pain averages 7/10.In addition, she c/o neck and lower back pain that she believes is linked to a difference in leg lengths. Denies any lower back surgeries. 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 She has tried PT [...] RX on 05/08/[address] Mijares at [facility]. She takes 1-2 Dilaudid per month.Mrs. Brown is interested in pain management and medical cannabis certification through [facility]. No other concerns today. Functional Status Date Functional Assessmen t No Information Instructions Date Instruction Additional Infor mation Continue current medication Reviewed medications New medication is prescribed Follow exercise program Depression Screen Oswestry Score Assessments Type Assessment Date No Information Patient Care Teams Name Effective Dates (start - stop) Status Members No Information
--- OUTSIDE RECORDS SUMMARY | 2024-10-10 11:38 | XMS_ITS | Encounter Summary ---
Author Organization [place] Address [address] [place] [address] Care Team Providers Care Full Time Staff Interpreter Name Role Phone Kelsi Handy MD Unavailable [phone] Nivia Bruno MD Primary Care Provider [phone] Encounter Details Date Type Department Care Team ([facility] Contact Info) Description 06/13/2021 Telephone [facility] Behavioral Health Intake [address] [place] [address] Generic, Behavioral Intake, Social History [...] on file Legal Sex Female 3:16 AM KNUCKLER Gender Identity Not on file Sexual Orientation Not on file documented as of this encounter Miscellaneous Notes * Telephone Encounter - Rafael Cota - 06/29/2021 12:06 PM CST ----- Message from KETTY Lynn sent at 06/29/2021 11:41 AM KNUCKLER ----- Regarding: new start Clinic 1 on 07/05 Scheduling Request Patient Name: Juliette Brown Location of programmin+ Start Date: June Group: Clinic 1 on at 1:00 to 3:00PM Attending Provider (MD): 12 Number of visits to be scheduled: 12 Duration of Appointment in minutes: 120 min Visit Type: Zoom - 2657 Additional notes: KLER * Telephone Encounter - Jen Serrano - 06/13/2021 9:38 AM CST ----- Message from SHANNON Warner sent at 06/13/2021 9:12 AM KNUCKLER ----- Regarding: add appointment Scheduling Request Patient Name: ?? Location of programming: [facility] 55+ Start Date:06/13/21 Group (BHxxxxx on #days of the week# at #start time to end time#): 55+ B1 M,W,F 1-4pm Provider (name of MD): Niall Number of visits to be scheduled: 1 Duration of Appointment in minutes: 180 mins Visit Type (Robert - 2702 / Zoom - 2657 / In-person or Treatment - 870) :2657-zoom Additional notes: KLER documented in this encounter Plan of Treatment Not on file documented as of this encounter Visit Diagnoses Not on filedocumented in this encounter Additional Health Concerns Assessment Noted Time PHQ-9 Depression Total Score: 7 06/14/19 22 10:59 AM KNUCKLER documented as of this encounter Care Teams Full Time Staff Interpreter Relationship Specialty Start Date End Date Nivia Bruno MD [address] [place] [address] PCP - General 03/22/21 Kelsi Handy MD [address] [place] [address] Assigned OBGYN Provider 04/23/20 3 documented as of this encounter
--- OUTSIDE RECORDS SUMMARY | 2024-10-10 11:38 | XMS_ITS | Clinical Summary ---
Author Organization [employer] Address [address] [place] [address] Care Team Providers Care Handbell Choir Director Name Role Phone Needs Pcp, Assignment Primary Care Provider [phone] Source Comments You are receiving this document as you are listed as the primary care provider,follow-up provider, or the patient has been referred to you for consultation.This is in compliance with the Medicare andDoctors Hospitalcaid EHR Incentive Program,which states Providers who transition their patient to another setting of careor provider of care or refers their patient to another provider of care shouldprovide summary care record for each transition of care or referral. [employer] Allergies Active Allergy Reactions Criticality Noted Date [...] (OCEAN) 0.65 % nasal solution Place 1 [place] into both nostrils every 2 hours as needed for Congestion. Active bacitracin-polym yxin b (POLYSPORIN) [id number] UNIT/GM ointmentIndicati ons:dry nose Apply topically two [...] (06/14/2019): Added automatically from request for surgery [id number] Sarcoidosis, lung 06/01/2019 Recurrent major depressive disorder [...] Encounters Date Type Department Care Team Description 08/31/2024 Telephone [facility] 3808 Infectious Disease [address] [facility] [place], [place] [address] Alex Issa MD Provider Orders from Last 3 Months Immunizations Immunization Administration Dates Next Due Flu [...] (145 lb 12.8 oz) 07/16/2019 9:00 PM FIBERGLASS FINISHER Height 172.7 cm (5' 8) 07/15/2019 9:30 PM FIBERGLASS FINISHER Body Mass Index 22.17 07/15/2019 9:30 PM FIBERGLASS FINISHER Plan of Treatment Health Maintenance Due Date Last Done Comments Cervical Cancer Screening Due 1960 Colon Cancer Screening Plan Due 1960 Medicare Annual Wellness Visit 1960 Cholesterol 2004 Pneumococcal Vaccine 50+ Yrs (2 of 2 - PCV) 03/25/2018 03/25/2017, 07/11/2009, 07/11/2009, Additional history exists COVID-19 Vaccine (2023- season) 2024 06/11/2023, 08/21/2021, 02/21/2021, Additional history exists Mammogram 07/31/2024 08/01/2023, 06/2022, 05/10/2021, Additional history exists DTaP/Tdap/Td Vaccine (6 - Tdap) 05/31/2026 05/31/2016, 05/31/2016, 05/31/2016, Additional history exists RSV Vaccine (1 - 1-dose 75+ series) 2034 HepA Vaccine Aged Out 04/27/2008 No longer eligi ble based on patient's age to complete this topic Hep C Screening (Preventive Services) Completed 08/25/2018 Zoster/Shingles Vaccine Completed 08/28/2020, 05/11 Dexa Completed 10/08/2023, 09/09, 09/24/2023, Additional history exists Influenza Vaccine Completed 06/10/2024, , 03/27/2021, Additional history exists HepB Vaccine Aged Out No longer eligi ble based on patient's age to complete this topic Hib Vaccine Aged Out No longer eligi ble based on patient's age to complete this topic IPV (Polio) Vaccine Aged Out No longe r eligible based on patient's age to complete this topic MCV4 Vaccine Aged Out No longer eligi ble based on patient's age to complete this topic Meningococcal B Vaccine Aged Out No l onger eligible based on patient's age to complete this topic Medical Devices Implanted Type Area Bradley Linebacker Crewmember Device Identifier Shelf Expiration Date Model / Serial / Lot Chip Canc VitaSensisuton 30cc - [id number] Implanted:Qty: 1 on 07/07/2019 by Tobias Martin MD at [facility] DEVICE Right: LEG [employer] - [employer] 06/30/2023 [id number] / [id number] / [id number] Chip Canc Crouton 30cc - [id number] Implanted:Qty: 1 on 07/07/2019 by Tobias Martin MD at [facility] DEVICE Right: LEG [employer] - [employer] 06/30/2023 [id number] / [id number] / [id number] Procedures Procedure Name Priority Date/Time Associated Diagnosis Comments BONE DENSITY 10/08/2023 HEPATITIS C ANTIBODY, WITH REFLEX Routine 08/25/2018 11:24 AM CDT Multiple joint pain MM MAMMOGRAM SCREENING BILAT W CAD Routine 10/27/2007 2:51 PM CDT from Last 3 Months or Most Recently Relevant to Health Maintenance Results * BONE DENSITY (10/08/2023) Anatomical Region Laterality Modality Other us Interface Provider DUMMY/OTHER/AR Final Resu lt * HCAB - Hepatitis C Virus Paula with Reflex In-House (08/25/2018 11:24 AM CDT) Hepatitis C Antibody Negative (Non Reactive) Negative (Non Reactive) 08/25/2018 4:34 PM CDT [facility] Comment:Antibodies to HCV no t detected. Does not exclude the possiblity of exposure to HCV. Blood Venipuncture / Unknown 08/25/2018 11:24 AM CDT 08/25/2018 11:24 AM CDT Carin Rainey MD LAB_1 Final Resul t [facility] [address] [place] [address], [facility] * MM [...] Most Recently Relevant to Health Maintenance Insurance MEDICARE BCBS MEDICARE SUPPLEMENT GAGANDEEP De [place] Garza [id number] MEDICARE BCBS MEDICARE SUPPLEMENT GAGANDEEP De [place] [id number] MEDICARE [facility] MEDICARE SUPPLEMENT Advance Directives Documents on File Type Date Recorded Patient Director Of Sports Medicine Expl anation HEALTHCARE DIRECTIVE 07/10/2019 ADVANCE D DIRECTIVE 07/10/2019 * Full Code (Latest Code Status on File) Date Activated Date Inactivated Comments 07/15/2019 9:18 PM 07/20/2019 4:20 PM * Full Code Date Activated Date Inactivated Comments 07/07/2019 4:33 PM 07/10/2019 6:22 PM Care Teams Handbell Choir Director Relationship Specialty Start Date End Date Needs Pcp, [place] [address] PCP - General 02/28/21
--- OUTSIDE RECORDS SUMMARY | 2024-10-10 11:38 | XMS_ITS | Encounter Summary ---
Author Organization [place] Address [address] [place] [address] Care Team Providers Care Malt Loader Name Role Phone Heladio Martins MD Primary Care Provider Kelsi Glez MD Unavailable [phone] Nivia Bruno MD Primary Care Provider [phone] Reason for Visit * Reason Onset Date Comments MH/CD Inpatient 04/15/2016 Encounter Details Date Type Department Care Team ([facility] Contact Info) Description 04/15/2016 [facility] Behavioral Health Intake [address] [place] [address] Generic, Behavioral Intake, MD MH/CD Inpatient Social History Tobacco Use Types Packs/Day Years Used Date Smoking Tobacco: Never Assessed PHQ-2 Answer Date Recorded PHQ-2 Score 2 06/13/2021 Adolescent Education Answer Date Record ed Getting School Help Needed Not on file 02/02 Comments Unknown Sex and Gender Information Value Date Recorded Sex Assigned at Not on file Legal Sex Female 3:16 AM CERTIFIED MEDICATION TECHNICIAN Gender Identity Not on file Sexual [...] pt has been medically cleared for admission And (Dr. Clark will write orders, as it is after 10pm); unit notified IFIED MEDICATION TECHNICIAN IFIED MEDICATION TECHNICIAN documented in this encounter Plan of Treatment Not on file documented as of this encounter Visit Diagnoses Not on filedocumented in this encounter Care Teams Malt Loader Relationship Specialty Start Date End Date Heladio Martins MD PCP - General Internal Medicine 03/05/16 03/21/21 Nivia Bruno MD [address] [facility] [place] [address] PCP - General 03/22/21 Kelsi Handy MD [address] [place] [address] Assigned OBGYN Provider 04/23/20 3 documented as of this encounter
--- OUTSIDE RECORDS SUMMARY | 2024-10-10 11:38 | XMS_ITS | Data Portability ---
Author Organization [place] [facility] [place] [facility] Address [address] [facility] [address] [place] Campos [address] Assessment No assessment recorded. Plan of Treatment Reminders Order Date Submit Date Provider Last Modified By Organization Details Last Modified Time Details Appointments None recorded. Lab urinalysi s, dipstick 2023 024 [facility], [address], [place], [address], 13:07:01 Referral pelvic floor therapy referral 2023 024 [facility], [address], [place], [address], 08:14:59 Procedures None recorded. Surgeries None recorded. [...] Available [facility] [address], [place], [address], 06/17/2023 12:42:43 06/17/19 24 06/17/2023 urina lysis , dipst ick Clarity-Stat us Clear Not Available [facility] [address], [place], [address], 06/17/2023 12:42:43 06/17/19 24 06/17/2023 urina lysis , dipst ick Glucose-Stat us Negati ve Not Available [facility] [address], [place], [address], 06/17/2023 12:42:43 06/17/19 24 06/17/2023 urina lysis , dipst ick Bilirubin-St atus Negati ve Not Available [facility] [address], [place], [address], 06/17/2023 12:42:43 06/17/19 24 06/17/2023 urina lysis , dipst ick Ketones-Stat us Negati ve Not Available [facility] [address], [place], [address], 06/17/2023 12:42:43 06/17/19 24 06/17/2023 urina lysis , dipst ick Sp Dilley-Stat us 1.020 Not Available [facility] [address], [place], [address], 06/17/2023 12:42:43 06/17/19 24 06/17/2023 urina lysis , dipst ick pH-Status 5.5 Not Available [facility] [address], [place], [address], 06/17/2023 12:42:43 06/17/19 24 06/17/2023 urina lysis , dipst ick Urobilinogen -Status 0.2 Not Available [facility] [address], [place], [address], 06/17/2023 12:42:43 06/17/19 24 06/17/2023 urina lysis , dipst ick Nitrates-Sta tus negati ve Not Available [facility] [address], [place], [address], 06/17/2023 12:42:43 06/17/19 24 06/17/2023 urina lysis , dipst ick Blood-Status Negati ve Not Available [facility] [address], [place], [address], 06/17/2023 12:42:43 06/17/19 24 06/17/2023 urina lysis , dipst ick Leuko-Status Trace Not Available [facility] [address], [place], [address], 06/17/2023 12:42:43 06/17/19 24 06/17/2023 urina lysis , dipst ick Specimen Type Voided Not Available [facility] [address], [place], [address], 06/17/2023 12:42:43 06/17/19 24 06/17/2023 urina lysis , dipst ick Performed by Nelli Al RN Not Available [facility] [address], [place], [address], 06/17/2023 12:42:43 Result Notes None recorded. Procedures Surgical History Date Name Laterality Status Provider Name and Address Organization Details Recorded Time 06/17/19 24 CystoscopyFemale completed David Rowland PA-C [address] [place] [address],[address], [address], [facility] 06/17/2023 13:01:47 06/17/19 24 Bladder Scan completed Nelli Al [facility] 06/17/2023 12:47:55 Imaging Results None recorded. Procedure Notes None recorded. Medical Equipment None Reported. Allergies Allergen ID Allergen Name Allergen Category Reaction Reaction Severity Criticality Documentation Date Start Date Code Code System Note Provider Name and Address Organization Details Recorded Time 023446 auranofin medicatio n Not available Not available Not available 06/17/2023 1227 RxNorm Nelli silva [facility] 4 12:24:03 014646 cat dander environme nt Not available Not available Not available 06/17/2023 96066 UNK [facility] 12:24:08 133339 Product containin g gadoliniu m and/or gadoliniu m compound (product) medicatio n Not available Not available Not available 06/17/2023 30375 3008 SNOMED [facility] 12:24:19 128891 wheat gluten extract food Not available Not available Not available 06/17/2023 71956 81 RxNorm [facility] 4 12:24:26 250525 gold keratinat e Not available Not available Not available Not available 06/17/2023 14279 RxHarris [facility]Grand [facility] 4 12:24:36 130679 Substance with morphinan structure and opioid receptor agonist mechanism of action (substanc e) medicatio n Not available Not available Not available 06/17/2023 04797 9000 SNMINNIE [facility] 4 12:24:43 Medications Name Sig [...] Updated DateTime 06/17/2023 172.72 cm 20.4 kg/m2 79101.38 g Nelli Al [place] [facility] [place] [facility] 06/17/2023 12:26:06 Social History None recorded. Functional Status None recorded. Mental Status None recorded. Family History Nothing Reported. Medical History No medical history recorded. Gynecological HistoryNo gynecological history recorded. Obstetrics History GPAL:G 0 P 0 0 0 0 Past Encounters Encounter ID Performer Location Encounter Start Date Encounter Closed Date Diagnosis/Indication Diagnosis SNOMED-CT Code Diagnosis ICD10 Code Diagnosis Note [id number] Nancy Troncoso MD [facility] [address] [place] [address] 06/17/2023 11:59:35 06/18/2023 10:35:23 Urgent desire to urinate 94251924 R39.15 I went over treatment options for OAB including diet modificati on, biofeedbac k, medication s. We woudl start with diet modificati on and PT for incontinen ce. She has concerns about side effects of the medication s Recurrent urinary tract infection 844171742 N39.0 Last UTI was in the fall 2022; treat as they happen I stressed importance of obtaining UC at the time of UTI symptoms only to guide the correct Abx choice. Vaginal dryness 17340363 N89.8 continue clobetasol and estrogen vaginashe is [place] lichen sclerosis Health Concerns Section Related Observation LastModified by Organization Detai ls LastModified Time None Recorded Concern Status LastModified by Organization Details LastModified Time None Recorded Advance Directives Directive None Recorded Payers Insurance Date Sequence Insurance Name Policy Number Policy Duval Covered Member ID Duval Member ID Guarantor Name 06/24/2023 2 [place] [id number] Jluiette Brown [id number] Juliette Brown 06/14/2023 1 [place] [employer] Juliette Brown [id number] Juliette Brown Notes Date Note Type [...] sclerosis, no POPCysto: Normal Nancy Troncoso MD [address] [place] [address],[address], [place], [address], [facility] 06/17/2023 13:59:27 OBGyn Episode No OBEpisode recorded.
--- OUTSIDE RECORDS SUMMARY | 2024-10-10 11:38 | XMS_ITS | Continuity of Care Document ---
Author Organization [facility] Address [address] [place] [address] Assessment Encounter Date Assessment Date Assessment LastModified by Organization Details LastModified Time 08/30/2024 08/30/2024 ASSESSMENT: Patient is a good candidate for conservative care and the prognosis is for a favorable outcome that achieves the patients' goals. We discussed etiology, activity modifications, home care, and other treatment options. Initially, it is recommended that the patient receive in-office treatment 1 times per week for 8 weeks at which time a re-evaluation will be performed to determine an appropriate change in plan. Initially, treatment will focus on joint manipulation to restore range of motion and reduce pain. We will slowly progress to therapeutic exercises and activities to improve function, strength, and stability may also be used as warranted. If the patient is not responding as expected, more invasive procedures will be discussed along with a referral. All considerations above were discussed with the patient and questions answered to satisfaction. If the patient should have any additional questions, or should the condition evolve or worsen, the patient should not hesitate to contact our office. ASSESSMENT: Patient is a good candidate for conservative care and the prognosis is for a favorable outcome that achieves the patients' goals. We discussed etiology, activity modifications, home care, and other treatment options. Initially, it is recommended that the patient receive in-office treatment 1 times per week for 8 weeks at which time a re-evaluation will be performed to determine an appropriate change in plan. Initially, treatment will focus on joint manipulation to restore range of motion and reduce pain. We will slowly progress to therapeutic exercises and activities to improve function, strength, and stability may also be used as warranted. If the patient is not responding as expected, more invasive procedures will be discussed along with a referral. All considerations above were discussed with the patient and questions answered to satisfaction. If the patient should have any additional questions, or should the condition evolve or worsen, the patient should not hesitate to contact our office. ecram Not available 08/30/2024 17:44:12 Plan of Treatment Reminders Order Date Submit Date Provider Last Modified By Organization Details Last Modified Time Details Appointments DC Treatment 2024 03:15P M Ian Devine DC Not available Not available Not available Lab None recorded. Referral None recorded. Procedures None recorded. Surgeries None recorded. Imaging None recorded. Medication Orders None recorded. Patient TargetsNo targets recorded. Patient InstructionsNo instructions recorded. Reason for Referral None Reported. Problems Name Problem SNOMED Code Status Onset Date Resolution Date Notes Provider Name and Address Organization Details Recorded Time Low back pain 968714323 Active 2024 Ian Diaz Karljaci [address], [place], [address] , [facility] 5 15:44:22 Thoracic segmental dysfunction 070863215 Active 2024 Not Available [facility] 11:42:39 Lumbar segmental dysfunction 815540992 Active 2024 Ian Diaz Karljaci [address], [address] , [facility] 5 15:44:22 Somatic dysfunction of sacral spine 841419892 Active 2024 Ian Diaz Karljaci [place] [address], [place], [address] , [facility] 5 15:44:22 Neck pain 59672043 Active 2024 Ian Devine [address], [place], [address] , [facility] 5 15:44:25 Cervical segmental dysfunction 583740975 Active 2024 Ian Diaz Karljaci [address], [place], [address] , [facility] 5 15:44:25 Problem Notes None recorded. Procedures Surgical History Date Name Laterality Status Provider Name and Address Organization Details Recorded Time 5 14763: Spinal manipulation , 3 to 4 regions completed Ian Devine, PARISA [address], [place], [address], [place] [facility] 09/06/2024 16:07:02 5 59414: Spinal manipulation , 3 to 4 regions completed Ian Devine, DC [address], [place], [address], [place] [facility] 08/30/2024 17:44:12 5 26848: Spinal manipulation , 3 to 4 regions completed Ian Devine, PARISA [address], [place], [address], [place] [facility] 08/23/2024 18:25:17 5 35380: Spinal manipulation , 3 to 4 regions completed Ian Devine, PARISA [address], [place], [address], [place] [facility] 08/20/2024 13:11:10 5 92246: Spinal manipulation , 3 to 4 regions completed Ian Devine, PARISA [address], [place], [address], [place] [facility] 08/16/2024 17:33:05 5 10621: Spinal manipulation , 3 to 4 regions completed Ian Devine, PARISA [address], [place], [address], [place] [facility] 08/13/2024 12:38:16 5 10672: Spinal manipulation , 3 to 4 regions completed Ian Devine, PARISA [address], [place], [address], [place] [facility] 08/09/2024 13:06:12 5 18575: Spinal manipulation , 3 to 4 regions completed Ian Barajasm, DC [address], [place], [address], [place] [facility] 08/03/2024 22:27:35 5 55828: Spinal manipulation , 3 to 4 regions completed Ian Devine, PARISA [address], [place], [address], [facility] 07/23/2024 15:49:00 Imaging Results None recorded. Procedure Notes None recorded. Medical Equipment None Reported. Medications Name Sig Start Date Stop Date Status Note LastModified by Organization Details LastModified Time hydromorphone 2 mg tablet TAKE HALF TABLET BY MOUTH EVERY SIX HOURS NEEDED FOR PAIN* active Not Available Not Available No t Available alcohol swabs FOR HOME USE DIRECTED * active Not Available Not Available No t Available progesterone micronized 100 mg capsule TAKE ONE CAPSULE BY MOUTH AT BEDTIME* active Not Available Not Available No t Available Praluent Pen 150 mg/mL subcutaneous pen injector INJECT ONE PEN (150MG) UNDER THE SKIN EVERY 2 WEEKS* active Not Available Not Available No t Available Vitals None Recorded Social History None recorded. Functional Status None recorded. Mental Status None recorded. Family History Nothing Reported. Medical History No medical history recorded. Gynecological HistoryNo gynecological history recorded. Obstetrics History GPAL:G 0 P 0 0 0 0 Past Encounters Encounter ID Performer Location Encounter Start Date Encounter Closed Date Diagnosis/Indication Diagnosis SNOMED-CT Code Diagnosis ICD10 Code Diagnosis Note [id number] PARISA Gaxiola [facility] [address] [place] [address] 08/03/2024 20:57:35 08/04/2024 09:23:06 Lumbar segmental dysfunction 461632808 M99.03 Low back pain 759610998 M54.50 Somatic dy sfunction of sacral spine 537992312 M99.04 Thoracic s egmental dysfunction 645473316 M99.02 Cervical s egmental dysfunction 706646293 M99.01 Neck pain 05544202 M54.2 [id number] PARISA Gaxiola [facility] [address] [place] [address] 08/09/2024 13:02:25 08/09/2024 14:54:15 Lumbar segmental dysfunction 805570609 M99.03 Low back pain 126781780 M54.50 Somatic dy sfunction of sacral spine 196798482 M99.04 Thoracic s egmental dysfunction 051366272 M99.02 Cervical s egmental dysfunction 491732568 M99.01 Neck pain 85835358 M54.2 [id number] [facility] [address] [place] [address] 08/13/2024 12:25:43 08/13/2024 12:45:07 Lumbar segmental dysfunction 356172621 M99.03 Low back pain 098512298 M54.50 Somatic dy sfunction of sacral spine 633593935 M99.04 Thoracic s egmental dysfunction 586825759 M99.02 Cervical s egmental dysfunction 768383437 M99.01 Neck pain 83253000 M54.2 [id number] PARISA Gaxiola[address] [place] [address] 08/16/2024 17:13:23 08/16/2024 18:26:42 Lumbar segmental dysfunction 420182971 M99.03 Low back pain 950927616 M54.50 Somatic dy sfunction of sacral spine 072952114 M99.04 Thoracic s egmental dysfunction 075639176 M99.02 Cervical s egmental dysfunction 137713182 M99.01 Neck pain 49290950 M54.2 [id number] PARISA Gax[address] [place] [address] 08/20/2024 13:06:04 08/20/2024 15:42:23 Lumbar segmental dysfunction 827871177 M99.03 Low back pain 596660053 M54.50 Somatic dy sfunction of sacral spine 712320793 M99.04 Thoracic s egmental dysfunction 491984145 M99.02 Cervical s egmental dysfunction 196135360 M99.01 Neck pain 62709799 M54.2 [id number] [facility] [address] [place] [address] 08/23/2024 17:19:04 08/23/2024 18:34:43 Lumbar segmental dysfunction 000292221 M99.03 Low back pain 766580355 M54.50 Somatic dy sfunction of sacral spine 462742713 M99.04 Thoracic s egmental dysfunction 712727093 M99.02 Cervical s egmental dysfunction 053202450 M99.01 Neck pain 09793576 M54.2 [id number] PARISA Gaxiola [facility] [address] [facility] [place] [address] 08/30/2024 17:21:17 08/30/2024 17:46:58 Lumbar segmental dysfunction 358329256 M99.03 Low back pain 750064538 M54.50 Somatic dy sfunction of sacral spine 122443293 M99.04 Thoracic s egmental dysfunction 129885244 M99.02 Cervical s egmental dysfunction 140070804 M99.01 Neck pain 31297760 M54.2 Health Concerns Section Related Observation LastModified by Organization Detai ls LastModified Time None Recorded Concern Status LastModified by Organization Details LastModified Time None Recorded Payers Encounter Date Sequence Insurance Name Policy Number Policy Duval Covered Member ID Duval Member ID Guarantor Name 08/30/2024 2 [place] [id number] Juliette Brown [id number] Juliette Brown 08/30/2024 1 [place] [employer] Juliette Brown [id number] Juliette Brown Notes Date Note Type Note Provider Name and Address Organization Details Recorded Time 08/30/2024 text/html HPI - Cervical SpineReported bypatient.Location: right Quality:aching Severity:moderate Duration:4 days; weeks Timing:acute Context:fall Alleviating Factors:rest; ice Aggravating Factors:bending; twisting/turning Associated Symptoms:no numbness/tinglingHP I - Lumbar SpineReported bypatient.Location: right; With radiation to knee Quality:aching Severity:not changing; moderate Timing:date of onset: (07/19/2024) Duration:acute Context:fall Aggravating Factors:standing; walking; lifting; carrying; twisting; bending/squatting Alleviating Factors:ice; rest Ian Devine DC [address], [place], [address], [facility] 08/30/2024 17:45:02 OBGyn Episode No OBEpisode recorded.
--- OUTSIDE RECORDS SUMMARY | 2024-10-10 11:38 | XMS_ITS | Encounter Summary ---
Author Organization [facility] Address [facility] [place] [address] Care Team Providers Care Automotive Sales Specialist Name Role Phone Heladio Martins MD Primary Care Provider Kelsi Glez MD Unavailable [phone] Nivia Bruno MD Primary Care Provider [phone] Encounter Details Date Type Department Care Team (Latest Contact Info) Description 03/06/2021 [facility] Treatment Plan [facility] [address] [place] [phone] Dav Tierney MD [address] [place] [address] Megan Ruiz, SHANNON Major depressive [...] on file Legal Sex Female 3:16 AM TUTOR Gender Identity Not on file Sexual Orientation [...] documented as of this encounter Care Teams Automotive Sales Specialist Relationship Specialty Start Date End Date Heladio Martins MD PCP - General Internal Medicine 03/05/16 03/21/21 Nivia Bruno MD [address] [facility] [place] [address] PCP - General 03/22/21 Kelsi Handy MD [address] [place] [address] Assigned OBGYN Provider 04/23/20 3 documented as of this encounter
--- OUTSIDE RECORDS SUMMARY | 2024-10-10 11:38 | XMS_ITS | Clinical Summary ---
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 Gender Identity Not on file Sexual [...] C SCREENING 1977 LIPID 1999 HEPATITIS A VACCINE (2 of 2 - Risk 2-dose series) 10/26/2008 04/27/2008 PNEUMOCOCCAL VACCINE 50+ YEARS (3 of 3 - PCV20 or PCV21) 07/11/2014 07/11/2009, 03/25/2007, 12/10/2001 TSH W/FREE T4 REFLEX 06/23/2018 06/23/2017, 04/15/20 16 DIABETES SCREENING 06/23/2020 06/23/2017, 04/15/2016 PHQ-9 12/11/2021 06/13/2021, 12/0 10/2020, 03/21/2021, Additional history exists MAMMO SCREENING 05/10/2023 05/10/2021 COVID-19 VACCINE ( season) 2024 02/21/2021, 08/09/2020, 07/19/2020 FALL RISK ASSESSMENT 2024 MEDICARE ANNUAL WELLNESS VISIT 2024 INFLUENZA VACCINE (Season Ended) 2025 03/27/2021, 02/24/2020, 02/07/2014, Additional history exists DTAP/TDAP/TD VACCINE (6 - Td or Tdap) 05/31/2026 05/31/2016, 05/31/2016, 09/30/2005, Additional history exists RSV VACCINE (1 - 1-dose 75+ series) 2034 ZOSTER VACCINE Completed 08/28/2020, 05/11/2020 HPV VACCINE Aged Out No longer eligi ble based on patient's age to complete this topic MENINGITIS VACCINE Aged Out No longer eligible based on patient's age to complete this topic Procedures Procedure Name Priority Date/Time Associated Diagnosis Comments BASIC METABOLIC PANEL Routine 06/23/2017 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 TSH Routine 06/23/2017 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 from Last 3 Months or Most Recently Relevant to Health Maintenance Results * TSH (06/23/2017 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) Pathologist [facility] TSH 2.31 0.30 - 5.00 uIU/mL 06/23/2017 10:31 AM LABEL PRESS OPERATOR [facility] Blood specimen (specimen) STRUCTURE OF LEFT UPPER LIMB / Unknown Venipuncture / Unknown 06/23/2017 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 06/23/2017 9:50 AM LABEL PRESS OPERATOR Rosmery Simpson MD LAB - BLOOD ORDERABLES Fi nal Result Performing Organization Address City/State/[facility] Co de Phone Number [facility] [address] [place] [address], [facility] [address] [place] [address] * Basic metabolic panel (06/23/2017 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) Pathologist [facility] Sodium 139 136 - 145 mmol/L 06/23/2017 10:13 AM LABEL PRESS OPERATOR [facility] Potassium 4.2 3.5 - 5.0 mmol/L 06/23/2017 10:13 AM LABEL PRESS OPERATOR [facility] Chloride 103 98 - 107 mmol/L 06/23/2017 10:[address] [facility] Carbon Dioxide (CO2) 29 22 - 31 mmol/L 06/23/2017 10:[address] [facility] Anion Gap 7 5 - 18 mmol/L 06/23/2017 10:[address] [facility] Glucose 105 70 - 125 mg/dL 06/23/2017 10:[address] [facility] Calcium 9.4 8.5 - 10.5 mg/dL 06/23/2017 10:[address] [facility] Urea Nitrogen 16 8 - 22 mg/dL 06/23/2017 10:[address] [facility] Creatinine 0.69 0.60 - 1.10 mg/dL 06/23/2017 10:[address] [facility] GFR Estimate If Black >60 >60 mL/min/1.7 3m2 06/23/2017 10:[address] [facility] GFR Estimate >60 >60 mL/min/1.7 3m2 06/23/2017 10:[address] [facility] Blood specimen (specimen) STRUCTURE OF LEFT UPPER LIMB / Unknown Venipuncture / Unknown 06/23/2017 6:00 AM [facility] 06/23/2017 9:50 AM [facility] Narrative [facility] - 06/23/2017 10:13 AM [facility] Fasting Glucose reference range is 70-99 mg/dL per [place] Diabetes Association (ADA) guidelines. us Rosmery Simpson MD LAB - BLOOD ORDERABLES Fi nal Result [facility] [address] [place] [address], [facility] [address] [place] [address] from Last 3 Months or Most Recently Relevant to [place] [address] [place]ARE [place] [address] [place] Advance Directives For more information, please contact: [phone] * Full Code (Latest Code Status on File) Date Activated Date Inactivated Comments 04/16/2016 1:58 AM 04/22/2016 3:55 PM Care Teams Steel Die Engraver Relationship Specialty Start Date End Date Nivia Bruno MD PCP - General 03/22/21
--- OUTSIDE RECORDS SUMMARY | 2024-10-10 11:38 | XMS_ITS | Encounter Summary ---
[facility] [address] [address] Care Team Providers Care Mate Ship Name Role Phone Needs Pcp, Assignment Primary Care Provider [phone] Reason for Visit * Reason Comments Provider Orders Encounter Details Date Type Department Care Team (Late st Contact Info) Description 08/31/2024 Telephone [facility] [address] Infect[facility] [address] [place] [address] Alex Issa MD [address] [place] [address] Provider Orders Social History Tobacco Use Types Packs/Day Years [...] as of this encounter Nursing Notes * Deborah Harrington RN - 08/31/2024 1:06 PM CDT Received outside referral from [facility] on 08/13/2024 for Rash parasites P) [phone] reviewed records and stated: since patient has tested negative for parasites and had no improvement reported after treatment for parasites, No IFD consult indicated at this time documented in this encounter Plan of Treatment Not on file documented as of this encounter Visit Diagnoses Not on filedocumented in this encounter Care Teams Mate Ship Relationship Specialty Start Date End Date Needs Pcp, [place] [address] PCP - General 02/28/21 documented as of this encounter
--- OUTSIDE RECORDS SUMMARY | 2024-10-10 11:38 | XMS_ITS | Data Portability ---
Author Organization [place] - [facility], [facility] Address [address] [facility] [address] [place] [address] Assessment Encounter Date Assessment Date Assessment LastModified by Organization Details LastModified Time 08/16/2024 08/16/2024 ASSESSMENT: Patient is a good candidate for [...] to contact our office. ecram Not available 08/16/2024 17:33:05 08/20/2024 08/20/2024 ASSESSMENT: Patient is a good candidate for [...] to contact our office. ecram Not available 08/20/2024 13:11:10 08/23/2024 08/23/2024 ASSESSMENT: Patient is a good candidate for [...] to contact our office. ecram Not available 08/23/2024 18:25:17 08/30/2024 08/30/2024 ASSESSMENT: Patient is a good [...] our office. ecram Not available 08/30/2024 17:44:12 09/06/2024 09/06/2024 ASSESSMENT: Patient is a good candidate for [...] to contact our office. ecram Not available 09/06/2024 16:07:02 Plan of Treatment Reminders Order Date Submit Date Provider Last Modified By Organization Details Last Modified Time Details Appointments DC Treatment 2024 03:15P M Ian Devine PARISA Not available Not available Not available Lab None recorded. Referral None recorded. Procedures None recorded. Surgeries None recorded. Imaging None recorded. Medication Orders None recorded. Patient TargetsNo targets recorded. Patient InstructionsNo instructions recorded. Reason for Referral None Reported. Problems Name Problem SNOMED Code Status Onset Date Resolution Date Notes Provider Name and Address Organization Details Recorded Time Low back pain 346957965 Active 2024 Ian Joe Nilson [address], [place], [address] , [facility] 5 15:44:22 Thoracic segmental dysfunction 628813943 Active 2024 Not Available [facility] 11:42:39 Lumbar segmental dysfunction 051256653 Active 2024 Ian Joe Nilson [address], [place], [address] , [facility] 5 15:44:22 Somatic dysfunction of sacral spine 587801991 Active 2024 Ian Joe Nilson [address], [place], [address] , [facility] 5 15:44:22 Neck pain 21947260 Active 2024 Ian Devine [address], [address] , [facility] 5 15:44:25 Cervical segmental dysfunction 345936669 Active 2024 Ian Devine [address], [address] , [facility] 15:44:25 Problem Notes None recorded. Procedures Surgical History Date Name Laterality Status Provider Name and Address Organization Details Recorded Time 5 09043: Spinal manipulation , 3 to 4 regions completed Ian Devine, PARISA [address], [place], [address], [facility] 09/06/2024 16:07:02 5 47920: Spinal manipulation , 3 to 4 regions completed Ian Devine, PARISA [address], [place], [address], [facility] 08/30/2024 17:44:12 5 07578: Spinal manipulation , 3 to 4 regions completed Ian Devine, PARISA [address], [place], [address], [facility] 08/23/2024 18:25:17 5 23769: Spinal manipulation , 3 to 4 regions completed Ian Devine, PARISA [address], [place], [address], [facility] 08/20/2024 13:11:10 5 76286: Spinal manipulation , 3 to 4 regions completed Ian Devine, PARISA [address], [place], [address], [facility] 08/16/2024 17:33:05 5 67505: Spinal manipulation , 3 to 4 regions completed Ian Devine, PARISA [address], [place], [address], [facility] 08/13/2024 12:38:16 5 88506: Spinal manipulation , 3 to 4 regions completed Ian Devine, PARISA [address], [place], [address], [facility] 08/09/2024 13:06:12 5 65248: Spinal manipulation , 3 to 4 regions completed Ian Devine, PARISA [address], [place], [address], [facility] 08/03/2024 22:27:35 03347: Spinal manipulation , 3 to 4 regions completed Ian Devine DC [address], [place], [address], [facility] 07/23/2024 15:49:00 Imaging Results None recorded. [...] SNOMED-CT Code Diagnosis ICD10 Code Diagnosis Note [id number] [facility] [address] [place] [address] 07/23/2024 15:43:19 07/23/2024 16:10:32 Lumbar segmental dysfunction 733046423 M99.03 Low back pain 218835339 M54.50 Somatic dy sfunction of sacral spine 743828276 M99.04 Thoracic s egmental dysfunction 838816423 M99.02 Cervical s egmental dysfunction 707117006 M99.01 Neck pain 84086578 M54.2 [id number] PARISA [facility] & [address] [place] [address] 08/03/2024 20:57:35 08/04/2024 09:23:06 Lumbar segmental dysfunction 949435472 M99.03 Low back pain 920043854 M54.50 Somatic dy sfunction of sacral spine 371803295 M99.04 Thoracic s egmental dysfunction 319526079 M99.02 Cervical s egmental dysfunction 477362746 M99.01 Neck pain 23579739 M54.2 [id number] [facility] & [address] [place] [address] 08/09/2024 13:02:25 08/09/2024 14:54:15 Lumbar segmental dysfunction 929740395 M99.03 Low back pain 023799544 M54.50 Somatic dy sfunction of sacral spine 359207775 M99.04 Thoracic s egmental dysfunction 257526067 M99.02 Cervical s egmental dysfunction 518191722 M99.01 Neck pain 90222034 M54.2 [id number] PARISA Gaxiola[address] [place] [address] 08/13/2024 12:25:43 08/13/2024 12:45:07 Lumbar segmental dysfunction 047639200 M99.03 Low back pain 492733612 M54.50 Somatic dy sfunction of sacral spine 758361667 M99.04 Thoracic s egmental dysfunction 061169262 M99.02 Cervical s egmental dysfunction 915411041 M99.01 Neck pain 00916859 M54.2 [id number] [facility] Devine [facility] & [address] [place] [address] 08/16/2024 17:13:23 08/16/2024 18:26:42 Lumbar segmental dysfunction 756881272 M99.03 Low back pain 720043496 M54.50 Somatic dy sfunction of sacral spine 877787455 M99.04 Thoracic s egmental dysfunction 828978310 M99.02 Cervical s egmental dysfunction 467194409 M99.01 Neck pain 21194715 M54.2 [id number] Ian Devine [facility] & [address] [place] [address] 08/20/2024 13:06:04 08/20/2024 15:42:23 Lumbar segmental dysfunction 658009476 M99.03 Low back pain 692788395 M54.50 Somatic dy sfunction of sacral spine 508548551 M99.04 Thoracic s egmental dysfunction 745121435 M99.02 Cervical s egmental dysfunction 522446494 M99.01 Neck pain 30212977 M54.2 [id number] PARISA Gaxiola[address] [place] [address] 08/23/2024 17:19:04 08/23/2024 18:34:43 Lumbar segmental dysfunction 249574180 M99.03 Low back pain 326285980 M54.50 Somatic dy sfunction of sacral spine 035121888 M99.04 Thoracic s egmental dysfunction 269382651 M99.02 Cervical s egmental dysfunction 271782957 M99.01 Neck pain 95893180 M54.2 [id number] PARISA Gaxiola[address] [place] [address] 08/30/2024 17:21:17 08/30/2024 17:46:58 Lumbar segmental dysfunction 012266223 M99.03 Low back pain 488121031 M54.50 Somatic dy sfunction of sacral spine 600988400 M99.04 Thoracic s egmental dysfunction 359217806 M99.02 Cervical s egmental dysfunction 364116457 M99.01 Neck pain 85248470 M54.2 [id number] PARISA Gaxiola[address] [place] [address] 09/06/2024 15:37:36 09/06/2024 16:52:17 Lumbar segmental dysfunction 699738633 M99.03 Low back pain 703432435 M54.50 Somatic dy sfunction of sacral spine 931214572 M99.04 Thoracic s egmental dysfunction 443132480 M99.02 Cervical s egmental dysfunction 476567421 M99.01 Neck pain 78157668 M54.2 Health Concerns Section Related Observation LastModified by Organization Detai ls LastModified Time None Recorded Concern Status LastModified by Organization Details LastModified Time None Recorded Advance Directives Directive None Recorded Payers Encounter Date Sequence Insurance Name Policy Number Policy Duval Covered Member ID Duval Member ID Guarantor Name 08/16/2024 2 [place] [id number] Juliette M Stephanie [id number] Juliette Stephanie 08/16/2024 1 [place] [employer] Juliette M Stephanie [id number] Juliette Stephanie 08/20/2024 2 [place] [id number] Juliette M Stephanie [id number] Juliette Stephanie 08/20/2024 1 [place] [employer] Juliette M Stephanie [id number] Juliette Stephanie 08/23/2024 2 [place] [id number] Juliette M Stephanie [id number] Juliette Stephanie 08/23/2024 1 [place] [employer] Juliette M Stephanie [id number] Juliette Stephanie 08/30/2024 2 [place] [id number] Juliette M Stephanie [id number] Juliette Stephanie 08/30/2024 1 [place] [employer] Juliette M Stephanie [id number] Juilette Stephanie 09/06/2024 2 [place] [id number] Juliette M Stephanie [id number] Juliette Stephanie 09/06/2024 1 [place] [employer] Juliette M Stephanie [id number] 5 Juliette Stephanie Notes Date Note Type Note Provider Name and Address Organization Details Recorded Time 08/16/2024 text/html HPI - Cervical SpineReported bypatient.Location: right Quality:aching Severity:moderate Duration:4 days; weeks Timing:acute Context:fall Alleviating Factors:rest; ice Aggravating Factors:bending; twisting/turning Associated Symptoms:no numbness/tinglingHP I - Lumbar SpineReported bypatient.Location: right; With radiation to knee Quality:aching Severity:not changing; moderate Timing:date of onset: (07/19/2024) Duration:acute Context:fall Aggravating Factors:standing; walking; lifting; carrying; twisting; bending/squatting Alleviating Factors:ice; rest Ian Diaz Karljaci, DC [address], [place], [address], [facility] 08/16/2024 17:33:42 08/20/2024 text/html HPI - Cervical SpineReported bypatient.Location: right Quality:aching Severity:moderate Duration:4 days; weeks Timing:acute Context:fall Alleviating Factors:rest; ice Aggravating Factors:bending; twisting/turning Associated Symptoms:no numbness/tinglingHP I - Lumbar SpineReported bypatient.Location: right; With radiation to knee Quality:aching Severity:not changing; moderate Timing:date of onset: (07/19/2024) Duration:acute Context:fall Aggravating Factors:standing; walking; lifting; carrying; twisting; bending/squatting Alleviating Factors:ice; rest Ian Devine, PARISA [address], [address], [facility] 08/20/2024 13:26:51 08/23/2024 text/html HPI - Cervical SpineReported bypatient.Location: right Quality:aching Severity:moderate Duration:4 days; weeks Timing:acute Context:fall Alleviating Factors:rest; ice Aggravating Factors:bending; twisting/turning Associated Symptoms:no numbness/tinglingHP I - Lumbar SpineReported bypatient.Location: right; With radiation to knee Quality:aching Severity:not changing; moderate Timing:date of onset: (07/19/2024) Duration:acute Context:fall Aggravating Factors:standing; walking; lifting; carrying; twisting; bending/squatting Alleviating Factors:ice; rest Ian Devine, PARISA [address], [place], [address], [facility] 08/23/2024 18:26:14 08/30/2024 text/html HPI - Cervical SpineReported bypatient.Location: right Quality:aching Severity:moderate Duration:4 days; weeks Timing:acute Context:fall Alleviating Factors:rest; ice Aggravating Factors:bending; twisting/turning Associated Symptoms:no numbness/tinglingHP I - Lumbar SpineReported bypatient.Location: right; With radiation to knee Quality:aching Severity:not changing; moderate Timing:date of onset: (07/19/2024) Duration:acute Context:fall Aggravating Factors:standing; walking; lifting; carrying; twisting; bending/squatting Alleviating Factors:ice; rest Ian Devine DC [address], [place], [address], [facility] 08/30/2024 17:45:02 09/06/2024 text/html HPI - Cervical SpineReported bypatient.Location: right Quality:aching Severity:moderate Duration:4 days; weeks Timing:acute Context:fall Alleviating Factors:rest; ice Aggravating Factors:bending; twisting/turning Associated Symptoms:no numbness/tinglingHP I - Lumbar SpineReported bypatient.Location: right; With radiation to knee Quality:aching Severity:not changing; moderate Timing:date of onset: (07/19/2024) Duration:acute Context:fall Aggravating Factors:standing; walking; lifting; carrying; twisting; bending/squatting Alleviating Factors:ice; rest Ian Devine DC [address], [place], [address], [facility] 09/06/2024 16:07:49 OBGyn Episode No OBEpisode recorded.
--- OUTSIDE RECORDS SUMMARY | 2024-10-10 11:38 | XMS_ITS | Continuity of Care Document ---
Author Organization [facility] Address [address] [facility] [address] [facility] [address] [place] [address] Assessment Encounter Date Assessment Date Assessment LastModified by Organization Details LastModified Time 09/06/2024 09/06/2024 ASSESSMENT: Patient is a good [...] Organization Details Recorded Time Low back pain 017064297 Active 2024 Ian Devine [address], [place], [address] , [facility] 5 15:44:22 Thoracic segmental dysfunction 470943994 Active 2024 Not Available [facility] 11:42:39 Lumbar segmental dysfunction 993825985 Active 2024 Ian Diaz Karljaci [address], [address] , [facility] 5 15:44:22 Somatic dysfunction of sacral spine 449929911 Active 2024 Ian Diaz Karljaci [address], [place], [address] , [facility] 5 15:44:22 Neck pain 74788422 Active 2024 Ian Devine [address], [place], [address] , [facility] 5 15:44:25 Cervical segmental dysfunction 778446127 Active 2024 Ian Diaz Karljaci [address], [address] , [facility] 5 15:44:25 Problem Notes None recorded. Procedures Surgical History Date Name Laterality Status Provider Name and Address Organization Details Recorded Time 5 12789: Spinal manipulation , 3 to 4 regions completed Ian Devine, PARISA [address] [facility], [place], [address], [place] [facility] 09/06/2024 16:07:02 5 34426: Spinal manipulation , 3 to 4 regions completed Ian Devine, DC [address] [facility], [place], [address], [place] [facility] 08/30/2024 17:44:12 5 81547: Spinal manipulation , 3 to 4 regions completed Ian Devine, PARISA [address] [facility], [place], [address], [place] [facility] 08/23/2024 18:25:17 5 02568: Spinal manipulation , 3 to 4 regions completed Ian Devine, PARISA [address] [facility], [place], [address], [place] [facility] 08/20/2024 13:11:10 5 71017: Spinal manipulation , 3 to 4 regions completed Ian Devine, PARISA [address] [facility], [place], [address], [place] [facility] 08/16/2024 17:33:05 5 19210: Spinal manipulation , 3 to 4 regions completed Ian Devine, PARISA [address] [facility], [place], [address], [place] [facility] 08/13/2024 12:38:16 5 97829: Spinal manipulation , 3 to 4 regions completed Ian Devine, PARISA [address] [facility], [place], [address], [place] [facility] 08/09/2024 13:06:12 5 19560: Spinal manipulation , 3 to 4 regions completed Ian Barajasm, DC [address] [facility], [place], [address], [place] [facility] 08/03/2024 22:27:35 5 76946: Spinal manipulation , 3 to 4 regions completed Ian Devine, PARISA [address] [facility], [place], [address], [facility] 07/23/2024 15:49:00 Imaging Results None recorded. Procedure [...] SNOMED-CT Code Diagnosis ICD10 Code Diagnosis Note [id number] PARISA [facility]axi[facility] [address] [facility] [place] [address] 08/09/2024 13:02:25 08/09/2024 14:54:15 Lumbar segmental dysfunction 807232268 M99.03 Low back pain 954575472 M54.50 Somatic dy sfunction of sacral spine 255540273 M99.04 Thoracic s egmental dysfunction 386137032 M99.02 Cervical s egmental dysfunction 093798010 M99.01 Neck pain 23687593 M54.2 [id number] Ian Devine DC [facility] [address] [facility] [place] [address] 08/13/2024 12:25:43 08/13/2024 12:45:07 Lumbar segmental dysfunction 040178273 M99.03 Low back pain 671049991 M54.50 Somatic dy sfunction of sacral spine 427157839 M99.04 Thoracic s egmental dysfunction 756728822 M99.02 Cervical s egmental dysfunction 345765802 M99.01 Neck pain 37657081 M54.2 [id number] [facility] & [address] [place] [address] 08/16/2024 17:13:23 08/16/2024 18:26:42 Lumbar segmental dysfunction 078001088 M99.03 Low back pain 814329597 M54.50 Somatic dy sfunction of sacral spine 157357856 M99.04 Thoracic s egmental dysfunction 786950528 M99.02 Cervical s egmental dysfunction 027786065 M99.01 Neck pain 63268245 M54.2 [id number] PARISA Gaxiola[address] [place] [address] 08/20/2024 13:06:04 08/20/2024 15:42:23 Lumbar segmental dysfunction 130557756 M99.03 Low back pain 958744733 M54.50 Somatic dy sfunction of sacral spine 944856800 M99.04 Thoracic s egmental dysfunction 027012775 M99.02 Cervical s egmental dysfunction 242059995 M99.01 Neck pain 31930494 M54.2 599422 PARISA Gaxiola[address] [place] [address] 08/23/2024 17:19:04 08/23/2024 18:34:43 Lumbar segmental dysfunction 104193505 M99.03 Low back pain 570425513 M54.50 Somatic dy sfunction of sacral spine 386388434 M99.04 Thoracic s egmental dysfunction 772493152 M99.02 Cervical s egmental dysfunction 003702749 M99.01 Neck pain 31858635 M54.2 [id number] [facility] & [address] [place] [address] 08/30/2024 17:21:17 08/30/2024 17:46:58 Lumbar segmental dysfunction 708571413 M99.03 Low back pain 894957520 M54.50 Somatic dy sfunction of sacral spine 634947082 M99.04 Thoracic s egmental dysfunction 055349373 M99.02 Cervical s egmental dysfunction 229837773 M99.01 Neck pain 33522957 M54.2 [id number] PARISA [facility]axiola [facility] [address] [facility] [place] [address] 09/06/2024 15:37:36 09/06/2024 16:52:17 Lumbar segmental dysfunction 803286319 M99.03 Low back pain 548285116 M54.50 Somatic dy sfunction of sacral spine 168603182 M99.04 Thoracic s egmental dysfunction 023372591 M99.02 Cervical s egmental dysfunction 302077708 M99.01 Neck pain 61485906 M54.2 Health Concerns Section Related Observation LastModified by Organization Detai ls LastModified Time None Recorded Concern Status LastModified by Organization Details LastModified Time None Recorded Payers Encounter Date Sequence Insurance Name Policy Number Policy Duval Covered Member ID Duval Member ID Guarantor Name 09/06/2024 2 [place] [id number] Juliette Brown [id number] Juliette Brown 09/06/2024 1 [place] [employer] Juliette Brown [id number] Juliette Brown Notes Date Note Type Note Provider Name and Address Organization Details Recorded Time 09/06/2024 text/html HPI - Cervical SpineReported bypatient.Location: right Quality:aching Severity:moderate Duration:4 days; weeks Timing:acute Context:fall Alleviating Factors:rest; ice Aggravating Factors:bending; twisting/turning Associated Symptoms:no numbness/tinglingHP I - Lumbar SpineReported bypatient.Location: right; With radiation to knee Quality:aching Severity:not changing; moderate Timing:date of onset: (07/19/2024) Duration:acute Context:fall Aggravating Factors:standing; walking; lifting; carrying; twisting; bending/squatting Alleviating Factors:ice; rest Ian Devine DC [address] [facility], [place], [address], [facility] 09/06/2024 16:07:49 OBGyn Episode No OBEpisode recorded.
--- OUTSIDE RECORDS SUMMARY | 2024-10-10 11:38 | XMS_ITS | Clinical Summary ---
Author Organization [facility] Address [address] [place] [address] , [address] [place] [address] Phone Care Team Providers Care Razor Grinder Name Role Phone [facility], [place] Unavailable Unava ilable Conditions or Problems Problem Name Problem Code Onset Date Status Entry Date Provider Comment Standard Description Annotate Myalgia of auxiliary muscles, head and neck 03686870 (SNOMED CT) 06/27 Active 06/27 Jina Johnson DNP,GASKET MAKER,CN P Muscle pain Hemifacial spasm R 46746645 (SNOMED CT) 08/10 Active 08/10 Norberto Miller Jr, MD Hemifacial spasm Facial pain, atypical 78830536 (SNOMED CT) 08/10 Active 08/10 Norberto Miller Jr, MD Atypical facial pain 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), right 86922589 (SNOMED CT) 08/10 Active 08/10 Norberto Miller Jr, MD Arthritis of temporomandibul ar joint Cervical spasm 86261941 (SNOMED CT) 08/10 Active 08/10 Norberto Miller Jr, MD Muscle spasm of head and/or neck Juvenile rheumatoid arthritis 282689302 (SNOMED CT) 08/10 Active 08/10 Norberto Miller [...] limb movement disorder (moderate; 15/hr; most w/arousals) 247760633 (SNOMED CT) 11/01 Inactive 11/03 Norberto Miller Jr, MD Periodic limb movement disorder 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 (ICD-10-CM ) 09/20 Active 09/20 Norberto Miller Jr, MD Sleep disorder, unspecified Fatigue 80388027 (SNOMED CT) 09/20 Active 09/20 Norberto Miller Jr, MD Fatigue Paresthesia of bilateral legs 17252094 (SNOMED CT) 11/10 Active 11/10 Regan Santiago MD Paresthesia Anxiety, generalized F41.1 (ICD-10-CM ) 01/17 Active 01/17 Jesika Diallo PhD Generalized anxiety disorder Restless leg syndrome (PLMS 15/hr) G25.81 (ICD-10-CM ) 09/04 Active 09/04 Norberto Miller Jr, MD Restless legs syndrome Sleep disturbance , nos 98732993 (SNOMED CT) 09/04 Inactive 09/04 Norberto Miller Jr, MD Dyssomnia 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 (ICD-10-CM ) 09/04 Active 09/04 Norberto Miller Jr, MD Insomnia, unspecified Snoring 96892288 (SNOMED CT) 09/04 Active 09/04 Norberto Miller Jr, MD Snoring Restless leg syndrome 69631545 (SNOMED CT) 09/04 Inactive 09/04 Norberto Miller Jr, MD Restless legs 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 (ICD-10-CM ) 09/04 Active 09/04 Norberto Miller Jr, MD Abnormal level of blood mineral traumatic brain injury, initial encounter S06.309A (ICD-10-CM ) 08/02 Active 08/07 Zuleyma Ly 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, initial encounter Hypothyroid ism 90412293 (SNOMED CT) 08/02 Active 08/07 Zuleyma Ly Hypothyroidism depression 34532916 (SNOMED CT) 08/02 Active 08/07 Zuleyma Ly Depressive disorder Memory problems R41.3 (ICD-10-CM ) 08/02 Active 08/07 Zuleyma Ly Other amnesia Medications Medication Instructions Start Date Stop Date Generic Name NDC Provider ESCITALOPRAM OXALATE 20 MG TABS 12/10 escitalopram oxalate 99409101179 Norberto Miller Jr, MD LORAZEPAM 0.5 MG TABS 12/10 lorazepam 64453489813 Norberto Miller Jr, MD TRETINOIN 0.025 % CREA 12/10 tretinoin 30688600834 Norberto Miller Jr, MD MELATONIN 10 MG TABS 1 by mouth every night 12/10 melatonin-lemon balm leaf extr 61826261234 Norberto Miller Jr, MD TRIAMCINOLONE ACETONIDE 0.1 % CREA 12/10 triamcinolone acetonide 90543557672 Norberto Miller Jr, MD SUMATRIPTAN SUCCINATE 25 MG TABS 12/10 sumatriptan succinate 01485803380 Norberto Miller Jr, MD BUSPIRONE HCL 15 MG TABS 12/10 buspirone 55268276657 Norberto Miller Jr, MD DIPHENOXYLATE-ATRO PINE 2.5-0.025 MG TABS 12/10 diphenoxylate-atr opine 54634844949 Norberto Miller Jr, MD TYRVAYA 0.03 MG/ACT SOLN 12/10 varenicline 33077201123 Norberto Miller Jr, MD ESCITALOPRAM OXALATE 10 MG TABS 12/10 escitalopram oxalate 73737306073 Norberto Miller Jr, MD LIDOCAINE VISCOUS HCL 2 % SOLN 12/10 lidocaine hcl 88089451980 Norberto Miller Jr, MD LIOTHYRONINE SODIUM 5 MCG TABS 12/10 liothyronine 72999066879 Norberto Miller Jr, MD HYDROMORPHONE HCL 2 MG TABS 12/10 hydromorphone 95200413025 Norberto Miller Jr, MD ROPINIROLE HCL 0.25 MG TABS 12/10 ropinirole 74030606970 Norberto Miller Jr, MD POLYMYXIN B-TRIMETHOPRIM 15582-8.1 UNIT/ML-% SOLN 12/10 polymyxin b sulf-trimethoprim 06412123782 Norberto Miller Jr, MD YUVAFEM 10 MCG TABS 12/10 estradiol 22891584338 Norberto Miller Jr, MD SULFAMETHOXAZOLE-T RIMETHOPRIM 800-160 MG TABS 12/10 sulfamethoxazole- trimethoprim 01079506965 Norberto Miller Jr, MD VALACYCLOVIR HCL 1 GM TABS 12/10 valacyclovir 30859924054 Norberto Miller Jr, MD LIDOCAINE 5 % PTCH lidocaine 02355168016 Norberto Miller Jr, MD TRIAMCINOLONE ACETONIDE 0.1 % PSTE triamcinolone acetonide 88096675262 Norberto Miller Jr, MD PROGESTERONE 100 MG CAPS TAKE ONE CAPSULE BY MOUTH AT BEDTIME* progesterone micronized 57637903483 Norberto Miller Jr, MD ESTRADIOL 1 MG TABS estradiol 22754078664 Norberto Miller Jr, MD DIPHENOXYLATE-ATRO PINE 2.5-0.025 MG TABS diphenoxylate-at r opine 05133115588 Norberto Miller Jr, MD LIOTHYRONINE SODIUM 5 MCG TABS liothyronine 74890109994 Norberto Miller Jr, MD MELOXICAM 15 MG TABS meloxicam 09223053167 Norberto Miller Jr, MD ONDANSETRON HCL 4 MG TABS ondansetron hcl 33533521535 Norberto Miller Jr, MD AMOXICILLIN 500 MG CAPS amoxicillin 40180182420 Norberto Miller Jr, MD HYDROMORPHONE HCL 2 MG TABS hydromorphone 39703208116 Norberto Miller Jr, MD YUVAFEM 10 MCG TABS estradiol 11832372301 Norberto Miller Jr, MD VILAZODONE HCL 20 MG TABS vilazodone 10033395969 Norberto Miller Jr, MD VILAZODONE HCL 10 MG TABS vilazodone 81166746941 Norberto Miller Jr, MD ESCITALOPRAM OXALATE 20 MG TABS escitalopram oxalate 50815009266 Norberto Miller Jr, MD BUSPIRONE HCL 15 MG TABS buspirone 83105309341 Norberto Miller Jr, MD TRAZODONE HCL 50 MG TABS trazodone 74495833344 Norberto Miller Jr, MD PREDNISONE 20 MG TABS prednisone 84147055088 Norberto Miller Jr, MD PROPRANOLOL HCL 20 MG TABS 08/10 propranolol 83192594723 Norberto Miller Jr, MD HYDROMORPHONE HCL 2 MG TABS 12/10 hydromorphone 94328789289 Norberto Miller Jr, MD ROPINIROLE HCL 0.25 MG TABS 12/10 ropinirole 80328979167 Norberto Miller Jr, MD ESCITALOPRAM OXALATE 20 MG TABS 12/10 escitalopram oxalate 31171700942 Norberto Miller Jr, MD TYRVAYA 0.03 MG/ACT SOLN 12/10 varenicline 81830084036 Norberto Miller Jr, MD YUVAFEM 10 MCG TABS 12/10 estradiol 39393687018 Norberto Miller Jr, MD CYCLOBENZAPRINE HCL 5 MG TABS Take 1/2-1 tablet by mouth every night at bedtime as directed start with 1/2 tab cyclobenzaprine 29517366466 Kelle Lima PA-C ESCITALOPRAM OXALATE 10 MG TABS 12/23 escitalopram oxalate 41938443416 Norberto Miller Jr, MD DULOXETINE HCL 30 MG CPEP 1 every morning 12/23 duloxetine 29468244778 Norberto Miller Jr, MD BUSPIRONE HCL 5 MG TABS 1 twice a day 12/23 buspirone 51710865139 Norberto Miller Jr, MD MELATONIN 10 MG TABS 1 by mouth every night 12/10 melatonin-lemon balm leaf extr 78230281603 Norberto Miller Jr, MD TRAZODONE HCL 50 MG TABS Prescribed by Family 12/23 TRAZODONE HCL Norberto Miller Jr, MD BUSPIRONE HCL 15 MG TABS 12/10 buspirone 32064202294 Norberto Miller Jr, MD ESCITALOPRAM OXALATE 10 MG TABS 12/10 escitalopram oxalate 46686608830 Norberto Miller Jr, MD LORAZEPAM 0.5 MG TABS 12/10 lorazepam 60671884107 Norberto Miller Jr, MD TRIAMCINOLONE ACETONIDE 0.1 % CREA 12/10 triamcinolone acetonide 33187252845 Norberto Miller Jr, MD SULFAMETHOXAZOLE-T RIMETHOPRIM 800-160 MG TABS 12/10 sulfamethoxazole- trimethoprim 43008788928 Norberto Miller Jr, MD PROPRANOLOL HCL 20 MG TABS 08/10 propranolol 81240139512 Norberto Miller Jr, MD LIOTHYRONINE SODIUM 5 MCG TABS 12/10 liothyronine 27049833399 Norberto Miller Jr, MD POLYMYXIN B-TRIMETHOPRIM 37616-1.1 UNIT/ML-% SOLN 09/17 polymyxin b sulf-trimethoprim 86599044335 Norberto Miller Jr, MD DIPHENOXYLATE-ATRO PINE 2.5-0.025 MG TABS 08/19 diphenoxylate-atr opine 43491600777 Norberto Miller Jr, MD LIDOCAINE VISCOUS HCL 2 % SOLN 12/10 lidocaine hcl 64361131595 Norberto Miller Jr, MD TRETINOIN 0.025 % CREA 12/10 tretinoin 73400864941 Norberto Miller Jr, MD SUMATRIPTAN SUCCINATE 25 MG TABS 12/10 sumatriptan succinate 11672653752 Norberto Miller Jr, MD VALACYCLOVIR HCL 1 GM TABS 12/10 valacyclovir 49742876105 Norberto Miller Jr, MD ESCITALOPRAM OXALATE 10 MG TABS 12/23 escitalopram oxalate 11043980601 Belle Jimenez PA-C MELATONIN 10 MG TABS 1 orally QHS 12/23 MELATONIN 78720615694 Norberto Miller Jr, MD CLOBETASOL PROPIONATE 0.05 % CREA Prescribed by Family SALAZAR 09/20 CLOBETASOL PROPIONATE 34492323482 Norberto Miller Jr, MD BETAMETHASONE VALERATE 0.1 % LOTN Prescribed by Family SALAZAR 09/20 BETAMETHASONE VALERATE 65550891746 Norberto Miller Jr, MD CEFUROXIME AXETIL 500 MG TABS Prescribed by Family SALAZAR 09/20 CEFUROXIME AXETIL 38775073560 Norberto Miller Jr, MD ARMOUR THYROID 30 MG TABS Prescribed by Family SALAZAR 09/20 THYROID 76029864633 Norberto Miller Jr, MD SERTRALINE HCL 100 MG TABS Prescribed by Family SALAZAR 09/20 SERTRALINE HCL 32205473153 Norberto Miller Jr, MD WELLBUTRIN XL 150 MG [id number] Prescribed by Family SALAZAR 09/20 BUPROPION HCL 47352197224 Norberto Miller Jr, MD DULOXETINE HCL 30 MG CPEP 1 QAM 12/23 DULOXETINE HCL 65403488755 Norberto Miller Jr, MD BUSPIRONE HCL 5 MG TABS 1 BID 12/23 BUSPIRONE HCL 61247354620 Norberto Miller Jr, MD GABAPENTIN 300 MG CAPS Prescribed by Family SALAZAR GABAPENTIN 40281114208 Norberto Miller Jr, MD CEFUROXIME AXETIL 500 MG TABS Prescribed by Family SALAZAR 08/24 CEFUROXIME AXETIL 85680246080 Zuleyma Cameron ARMOUR THYROID 30 MG TABS Prescribed by Family SALAZAR 09/20 THYROID 56203014774 Zuleyma Cameron GABAPENTIN 300 MG CAPS Prescribed by Family SALAZAR 08/24 GABAPENTIN 76003057243 Zuleyma Cameron SERTRALINE HCL 100 MG TABS Prescribed by Family SALAZAR 09/20 SERTRALINE HCL 15427340540 Zuleyma Cameron WELLBUTRIN XL 150 MG [id number] Prescribed by Family SALAZAR 09/20 BUPROPION HCL 90925613560 Zuleyma Cameron TRAZODONE HCL 50 MG TABS Prescribed by Family SALAZAR 12/23 TRAZODONE HCL 31137771453 Zuleyma Cameron BETAMETHASONE VALERATE 0.1 % LOTN Prescribed by Family SALAZAR 08/24 BETAMETHASONE VALERATE 08524398960 Zuleyma Ly CLOBETASOL PROPIONATE 0.05 % CREA Prescribed by Family SALAZAR 08/24 CLOBETASOL PROPIONATE 81087167723 Zuleyma Cameron Medications Administered No information available. Allergies, Adverse Reactions, Alerts Allergy Name Reaction Description Start Date Severity Statu s Provider GABAPENTIN Worse restlessness; sweats Severe Active Norberto Miller Jr, MD GOLD SALTS Critical Active Norberto wright Jr, MD Results Date Name Value Unit Range Flag Description Internal Other: Authorizatio n - OBS PTSTAUTHDT Done PT Startin g Authorization Date Lab Report: FERRITIN---44 FERRITIN 44 [...] (procedure) Plan of Care Type Date Detail Appointment 11:30 AM Kelle soto PA-C, [address], [address], [place], [address], Referral Dental Device Re ferral Pending order [...] Procedures Code Procedure Name Date Entry Date 31688/48142/13325&53 Occipital Nerve Blo ck and Trigger Point Injections CPT-00449 Trigger point inj (3+ musc) CPT-J1100 Dexamethasone -- 10 mg 04/26 ORDERS Follow up [facility] telemedicine 2 ORDERS Dental Device Referral 12/10 ORDERS Sleep Hygiene Tips Handout 2 024 ORDERS Insomnia Handout ORDERS Patient Instructions ORDERS Patient Instructions ORDERS Patient Instructions [facility]-[id number] Other Referral ORDERS Instructions for Staff 09/02 ORDERS Follow up Sleep [facility] telemedicine ORDERS Patient Instructions CPT-76486 Trigger point inj (3+ musc) CPT-J1100 Dexamethasone -- 10 mg 08/10 [id number] Other Radiology 06108/14665/21863&53 Occipital Nerve Blo ck and Trigger Point Injections ORDERS Follow up Extended telemedicine 1 ORDERS Patient Instructions [facility]-[id number] Other Referral [facility]-483684709 Psychiatry Referral ORDERS Pain Clinic ORDERS Insomnia Handout ORDERS Sleep Hygiene Tips Handout 2 ORDERS Patient Instructions CPT-12808 PSG, 4+ parameters w / tech - 6yrs or older (02917) ORDERS Vitamin B12 ORDERS Vitamin D 25 Hydroxy ORDERS Patient Instructions SCT-704312041 Other Referral SCT-202834573 Psychology Referral ORDERS Instructions for Staff 11/28 ORDERS Lyme Total Ab w/Refl ex (reflex to Western Blot) ORDERS TSH ORDERS 2 weeks Actigraphy W atch w/ Sleep Journals (Call Sleep Lab) ORDERS Ferritin Serum ORDERS Overnight PSG - Sleep Study Overnight 07/17/19 ORDERS Telemedicine Follow up 11/08 ORDERS Ferritin Serum [facility]-[id number] Documentation of current medicatio ns ORDERS Other Handout ORDERS Patient Instructions ORDERS Patient Instructions ORDERS Instructions for Staff 11/08 ORDERS Telemedicine Follow up 09/20 CPT-07442 PSG, 4+ parameters w / tech - 6yrs or older (68318) ORDERS Sleep Study - [facility] 2 SCT-[id number] Documentation of current medicatio ns ORDERS T4 SCT-689720029 Other Referral ORDERS Lyme Total Ab w/Refl [...] TSH ORDERS Vitamin B12 ORDERS T3 Free CPT-40591 Nerve Conduction 7-8 studies CPT-68477 EMG with NCS (5+ muscles) - 1 limb 11/10 SCT-[id number] Documentation of current medicatio ns ORDERS Ferritin Serum ORDERS Patient Instructions ORDERS Other Test ORDERS Follow up ORDERS Vitamin B12 CPT-63355 Neuropsych assmnt w/ prov 4 hr CPT-1915514 Neuropsych assmnt w/ tech 3 hr ORDERS Follow up ORDERS Patient Instructions SCT-[id number] Documentation of current medicatio ns ORDERS Follow up ORDERS Patient Instructions SCT-786144097 Other Test CPT-63491 PSG, 4+ parameters w / tech - 6yrs or older (16751) CPT-30399 MRI Brain W/O SCT-[id number] Documentation of current medicatio ns SCT-509399378 Other Test SCT-601843667216002 Documentation of current medicatio ns ORDERS Ferritin Serum SCT-793922665 Other Referral ORDERS Follow up SCT-319005529 Other Test SCT-615849963 Other Referral SCT-[id number] Documentation of current medicatio ns Vital Signs Date Name Value Unit Description Height 69 [in_us] height E&M BMI (Body Mass Index) 22.23 kg/m2 Bod y Mass Index (Ratio) Respiratory Rate 16 /min respirat ory rate E&M Weight Measured 150 [lb_av] weight E& M Weight Measured 150 [lb_av] weight E& M Weight Measured 68.18 kg weight in kilograms E&M BP Diastolic 70 mm[Hg] blood pressu re, diastolic BP Systolic 98 mm[Hg] blood pressur e, systolic Heart Rate 96 /min pulse rate Immunizations No information available. Advance Directives No information available.
--- OUTSIDE RECORDS SUMMARY | 2024-10-10 11:38 | XMS_ITS | Data Portability ---
Author Organization [place] [facility] [place] [facility] Address [address] [place] [address] Assessment No assessment recorded. Plan of Treatment Reminders Order Date Submit Date Provider Last Modified By Organization Details Last Modified Time Details Appointments None recorded. Lab urinalysi s, dipstick 2023 024 ab[facility], [address], [place], [address], 13:07:01 Referral pelvic floor therapy referral 2023 024 [facility], [address], [place], [address], 08:14:59 Procedures None recorded. Surgeries None recorded. [...] Available [facility] [address], [place], [address], 06/17/2023 12:42:43 06/17/19 24 06/17/2023 urina lysis , dipst ick Clarity-Stat us Clear Not Available [facility] [address], [place], [address], 06/17/2023 12:42:43 06/17/19 24 06/17/2023 urina lysis , dipst ick Glucose-Stat us Negati ve Not Available [facility] [address], [place], [address], 06/17/2023 12:42:43 06/17/19 24 06/17/2023 urina lysis , dipst ick Bilirubin-St atus Negati ve Not Available [facility] [address], [place], [address], 06/17/2023 12:42:43 06/17/19 24 06/17/2023 urina lysis , dipst ick Ketones-Stat us Negati ve Not Available [facility] [address], [place], [address], 06/17/2023 12:42:43 06/17/19 24 06/17/2023 urina lysis , dipst ick Sp [place]-Stat us 1.020 Not Available [facility] [address], [place], [address], 06/17/2023 12:42:43 06/17/19 24 06/17/2023 urina lysis , dipst ick pH-Status 5.5 Not Available [facility] [address], [place], [address], 06/17/2023 12:42:43 06/17/19 24 06/17/2023 urina lysis , dipst ick Urobilinogen -Status 0.2 Not Available [facility] [address], [place], [address], 06/17/2023 12:42:43 06/17/19 24 06/17/2023 urina lysis , dipst ick Nitrates-Sta tus negati ve Not Available [facility] [address], [place], [address], 06/17/2023 12:42:43 06/17/19 24 06/17/2023 urina lysis , dipst ick Blood-Status Negati ve Not Available [facility] [address], [place], [address], 06/17/2023 12:42:43 06/17/19 24 06/17/2023 urina lysis , dipst ick Leuko-Status Trace Not Available [facility] [address], [place], [address], 06/17/2023 12:42:43 06/17/19 24 06/17/2023 urina lysis , dipst ick Specimen Type Voided Not Available [facility] [address], [place], [address], 06/17/2023 12:42:43 06/17/19 24 06/17/2023 urina lysis , dipst ick Performed by Nelli Al RN Not Available [facility] [address], [place], [address], 06/17/2023 12:42:43 Result Notes None recorded. Procedures Surgical History Date Name Laterality Status Provider Name and Address Organization Details Recorded Time 06/17/19 24 CystoscopyFemale completed David Rowland PA-C [address] [place] [address],[address], [place], [address], [facility] 06/17/2023 13:01:47 06/17/19 24 Bladder Scan completed Nelli Al [facility] 06/17/2023 12:47:55 Imaging Results None recorded. Procedure Notes None recorded. Medical Equipment None Reported. Allergies Allergen ID Allergen Name Allergen Category Reaction Reaction Severity Criticality Documentation Date Start Date Code Code System Note Provider Name and Address Organization Details Recorded Time 572898 auranofin medicatio n Not available Not available Not available 06/17/2023 1227 RxNorm Nelli silva [facility] 4 12:24:03 890569 cat dander environme nt Not available Not available Not available 06/17/2023 03393 [facility]K [facility] 12:24:08 165731 Product containin g gadoliniu m and/or gadoliniu m compound (product) medicatio n Not available Not available Not available 06/17/2023 38396 3008 SNOMED [facility] 12:24:19 813030 wheat gluten extract food Not available Not available Not available 06/17/2023 96263 81 [facility]Norm [facility] 12:24:26 572666 gold keratinat e Not available Not available Not available Not available 06/17/2023 74135 RxHarris [facility] 12:24:36 386814 Substance with morphinan structure and opioid receptor agonist mechanism of action (substanc e) medicatio n Not available Not available Not available 06/17/2023 86883 9000 [facility] 12:24:43 Medications Name Sig Start [...] Available melatonin active Not Available Not Ana Amria ilable Not Available liothyronine active Not Available [...] Updated DateTime 06/17/2023 172.72 cm 20.4 kg/m2 91994.38 g Nelli Al [place] [facility] 06/17/2023 12:26:06 Social History None recorded. Functional Status None recorded. Mental Status None recorded. Family History Nothing Reported. Medical History No medical history recorded. Gynecological HistoryNo gynecological history recorded. Obstetrics History GPAL:G 0 P 0 0 0 0 Past Encounters Encounter ID Performer Location Encounter Start Date Encounter Closed Date Diagnosis/Indication Diagnosis SNOMED-CT Code Diagnosis ICD10 Code Diagnosis Note [id number] Nancy Troncoso MD [facility] [address] [place] [address] 06/17/2023 11:59:35 06/18/2023 10:35:23 Urgent desire to urinate 48253208 R39.15 I went over treatment options for OAB including diet modificati on, biofeedbac k, medication s. We woudl start with diet modificati on and PT for incontinen ce. She has concerns about side effects of the medication s Recurrent urinary tract infection 171440690 N39.0 Last UTI was in the fall 2022; treat as they happen I stressed importance of obtaining UC at the time of UTI symptoms only to guide the correct Abx choice. Vaginal dryness 79388293 N89.8 continue clobetasol and estrogen vaginashe is following [facility] lichen [facility] Health Concerns Section Related Observation LastModified by Organization Detai ls LastModified Time None Recorded Concern Status LastModified by Organization Details LastModified Time None Recorded Advance Directives Directive None Recorded Payers Insurance Date Sequence Insurance Name Policy Number Policy Duval Covered Member ID Duval Member ID Guarantor Name 06/24/2023 2 [place] [id number] Juliette Brown [id number] Juliette rBown 06/14/2023 1 [place] [employer] Juliette Brown [id number] Juliette Brown Notes Date Note Type [...] sclerosis, no POPCysto: Normal Nancy Troncoso MD [address] [place] [address],[address], [place], [address], [facility] 06/17/2023 13:59:27 OBGyn Episode No OBEpisode recorded.
--- OUTSIDE RECORDS SUMMARY | 2024-10-10 11:38 | XMS_ITS | Encounter Summary ---
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 She has Medicare and BCBS. Please check ifinsurance will cover another PHP program. Patient was given [employer] phone number. * Telephone Encounter - Jen Serrano - 03/07/2021 7:50 AM CDT ----- Message from KETTY Rollins sent at 03/06/2021 7:37 PM CDT ----- Regarding: Schedule for PHP on Friday Scheduling Request Patient Name: Juliette Brown Location of programming: [facility] Start Date: 03/12 Group: [id number] 9am to 3pm Attending Provider (): Cristianoe Number of visits to be scheduled: 50 Duration of Appointment in minutes: 360 Visit Type: Zoom - [phone] Additional notes: Patient is currently in PHP at [facility]. She has Medicare and BCBS. Please check ifinsurance will cover another PHP program. Patient was given [employer] phone number. documented in this encounter Plan of Treatment Not on file documented as of this encounter Visit Diagnoses Not on filedocumented in this encounter Additional Health Concerns Assessment Noted Time PHQ-9 Depression Total Score: 021 12:28 PM CDT documented as of this encounter Care Teams Photo Technician Relationship Specialty Start Date End Date Heladio Martins MD PCP - General Internal Medicine 03/05/16 03/21/21 Nivia Bruno MD [address] [place] [address] PCP - General 03/22/21 Kelsi Handy MD [address] [place] [address] Assigned OBGYN Provider 04/23/20 3 documented as of this encounter
--- OUTSIDE RECORDS SUMMARY | 2024-10-10 11:39 | XMS_ITS | Encounter Summary ---
Author Organization [facility] Address [address] [address] Care Team Providers Care Single Stayer Operator Name Role Phone Needs Pcp, Assignment Primary Care Provider [phone] Reason for Visit * Auth/Cert Specialty Diagnoses / Procedures Referred By Contac t Referred To Contact Diagnoses Diarrhea of presumed infectious origin Fibromyalgia Diarrhea of presumed infectious origin Fibromyalgia Diarrhea of presumed infectious origin Fibromyalgia Referral ID Status Reason Start Date Expiration Date Visits Re quested Visits Authorized [id number] 1 1 Encounter Details Date Type Department Care Team (Latest Contact Info) Description 07/15/2019 Lab Requisition [facility] [address] [facility] [place] [place] [address] Lul Hunter MD [address] [place], [place] [id number] Enterocolitis due to Clostridium difficile, not specified [...] on file documented as of this encounter Functional Status documented as of this encounter Plan of Treatment Not on file documented as of this encounter Procedures Procedure Name Priority Date/Time Associated Diagnosis Comments C.DIFFICILE TOXIN,MOLECULAR DETECTION Routine 07/15/2019 10:00 PM CHIEF PASSENGER SHIP STEWARD/STEWARDESS Enterocolitis due to Clostridium difficile, not specified as recurrent documented in this encounter Results * (ABNORMAL) C.Difficile Toxin,Molecular Detection, (07/15/2019 10:00 PM CHIEF PASSENGER SHIP STEWARD/STEWARDESS) C.difficile Detected(A ) Not Detected 07/15/2019 11:30 PM CHIEF PASSENGER SHIP STEWARD/STEWARDESS [facility] Stool Non-blood Collection / Unknown 07/15/2019 10:00 PM CHIEF PASSENGER SHIP STEWARD/STEWARDESS 07/15/2019 10:24 PM CHIEF PASSENGER SHIP STEWARD/STEWARDESS Narrative [facility] - 07/15/2019 11:30 PM CHIEF PASSENGER SHIP STEWARD/STEWARDESS Methodology: Qualitative real-time PCR assay to detect the Clostridium difficile toxin B gene. us Lul Hunter MD LAB_1 Final Result [facility] [address] [place] [address], [facility] documented in this encounter Visit Diagnoses Diagnosis Enterocolitis due to Clostridium difficile, not specified as recurrent documented in this encounter Care Teams Single Stayer Operator Relationship Specialty Start Date End Date Needs Pcp, [place] [address] PCP - General 02/28/21 documented as of this encounter
--- OUTSIDE RECORDS SUMMARY | 2024-10-10 11:39 | XMS_ITS | Encounter Summary ---
Author Organization [facility] Address [address] [place] [address] Care Team Providers Care Head Golf Professional Name Role Phone Kelsi Handy MD Unavailable [phone] Nivia Bruno MD Primary Care Provider [phone] Encounter Details Date Type Department Care Team ([facility] Contact Info) Description 09/25/2021 Telephone [facility] Intake [address] [place] [address] Generic, Behavioral Intake, Social History [...] on file Legal Sex Female 3:16 AM COUNTER WAITRESS/WAITER Gender Identity Not on file Sexual Orientation Not on file documented as of this encounter Miscellaneous Notes * Telephone Encounter - Rafael Cota - 09/25/2021 12:00 PM CDT ----- Message from SHANNON Warner sent at 09/25/2021 11:03 AM CDT ----- Regarding: add appointment Scheduling Request Patient Name: ?? Location of programming: [facility] Start Date: 09/27/21 Group (BHxxxxx on #days of the week# at #start time to end time#): 55+ clinic 1 Provider (name of MD):kerry Number of visits to be scheduled: 1 Duration of Appointment in minutes: 120 mins Visit Type (Amwell - 2702 / Zoom - 2657 / In-person or Treatment - 870) :zoom 2657 Additional notes: documented in this encounter Plan of Treatment Not on file documented as of this encounter Visit Diagnoses Not on filedocumented in this encounter Additional Health Concerns Assessment Noted Time PHQ-9 Depression Total Score: 7 06/14/19 22 10:59 AM COUNTER WAITRESS/WAITER documented as of this encounter Care Teams Head Golf Professional Relationship Specialty Start Date End Date Nivia Bruno MD [address] [place] [address] PCP - General 03/22/21 Kelsi Handy MD [address] [place] [address] Assigned OBGYN Provider 04/23/20 3 documented as of this encounter
--- OUTSIDE RECORDS SUMMARY | 2024-10-10 11:39 | XMS_ITS | Encounter Summary ---
Author Organization [facility] Address [address] [address] Care Team Providers Care Program Production Specialist Name Role Phone Needs Pcp, Assignment Primary Care Provider [phone] Encounter Details Date Type Department Care Team (Late st Contact Info) Description 07/12/2019 Lab Requisition [facility] [address] [facility] [place] [address] Lul Hunter MD [address] [place], [place] [phone] Encounter for surgical aftercare following surgery on [...] BASIC METABOLIC PANEL Routine 07/13/2019 7:00 AM IT SUPPORT TECHNICIAN Encounter for surgical aftercare following surgery on the nervous system COMPLETE BLOOD COUNT-NO DIFF Routine 07/13/2019 7:00 AM IT SUPPORT TECHNICIAN Encounter for surgical aftercare following surgery on the nervous system documented in this encounter Results * (ABNORMAL) Basic Metabolic Panel (07/13/2019 7:00 AM IT SUPPORT TECHNICIAN) Sodium 136 136 - 145 mmol/L 07/13/2019 12:35 PM IT SUPPORT TECHNICIAN [facility] Potassium 4.7 3.5 - 5.1 mmol/L 07/13/2019 12:35 PM IT SUPPORT TECHNICIAN [facility] Chloride 100 98 - 109 mmol/L 07/13/2019 12:35 PM IT SUPPORT TECHNICIAN [facility] CO2 27 20 - 29 mmol/L 07/13/2019 12:35 PM IT SUPPORT TECHNICIAN [facility] Anion Gap 9 7 - 16 mmol/L 07/13/2019 12:35 PM IT SUPPORT TECHNICIAN [facility] Calcium 9.2 8.4 - 10.4 mg/dL 07/13/2019 12:35 PM IT SUPPORT TECHNICIAN [facility] BUN 18 7 - 26 mg/dL 07/13/2019 12:35 PM IT SUPPORT TECHNICIAN [facility] Creatinine 0.76 0.55 - 1.02 mg/dL 07/13/2019 12:35 PM IT SUPPORT TECHNICIAN [facility] GFR, Estimated >60 >60 mL/min/1.7 3m2 07/13/2019 12:35 PM IT SUPPORT TECHNICIAN [facility] GFR, Est If >60 >60 mL/min/1.7 3m2 07/13/2019 12:35 PM IT SUPPORT TECHNICIAN [facility] Glucose 105(H) 70 - 100 mg/dL 07/13/2019 12:35 PM IT SUPPORT TECHNICIAN [facility] Comment:The given reference range is for the fasting state. Non-fasting reference range for glucose is 70 - 180 mg/dL. Hours Fasting Unknown 07/13/2019 12:35 PM IT SUPPORT TECHNICIAN [facility] Blood Venipuncture / Unknown 07/13/2019 7:00 AM IT SUPPORT TECHNICIAN 07/13/2019 10:40 AM IT SUPPORT TECHNICIAN us Lul Hunter MD LAB_1 Final Result [facility] [address] [place], [place] [address] * (ABNORMAL) Complete Blood Count-No Diff (07/13/2019 7:00 AM IT SUPPORT TECHNICIAN) WBC 4.7 3.5 - 10.5 x10(9)/L 07/13/2019 11:17 AM IT SUPPORT TECHNICIAN [facility] RBC 3.19(L) 3.90 - 5.03 x10(12)/L 07/13/2019 11:17 AM IT SUPPORT TECHNICIAN [facility] Hemoglobin 10.1(L) 12.0 - 15.5 g/dL 07/13/2019 11:17 AM IT SUPPORT TECHNICIAN [facility] HCT 31.2(L) 34.9 - 44.5 % 07/13/2019 11:17 AM IT SUPPORT TECHNICIAN [facility] MCV 97.8 80.0 - 100.0 fL 07/13/2019 11:17 AM IT SUPPORT TECHNICIAN [facility] MCH 31.7 27.6 - 33.3 pg 07/13/2019 11:17 AM IT SUPPORT TECHNICIAN [facility] MCHC 32.4 31.5 - 35.2 g/dL 07/13/2019 11:17 AM IT SUPPORT TECHNICIAN [facility] RDW 11.7(L) 11.9 - 15.5 % 07/13/2019 11:17 AM IT SUPPORT TECHNICIAN [facility] Platelets 221 150 - 450 x10(9)/L 07/13/2019 11:17 AM IT SUPPORT TECHNICIAN [facility] Automated NRBC 0 <=0 /100 WBC 07/13/2019 11:17 AM IT SUPPORT TECHNICIAN [facility] Blood Venipuncture / Unknown 07/13/2019 7:00 AM IT SUPPORT TECHNICIAN 07/13/2019 10:44 AM IT SUPPORT TECHNICIAN us Lul Hunter MD LAB_1 Final Result [facility] [address] [place] [address], [facility] documented in this encounter Visit Diagnoses Diagnosis Encounter for surgical aftercare following surgery on the nervous system documented in this encounter Care Teams Program Production Specialist Relationship Specialty Start Date [place] [address] PCP - General 02/28/21 documented as of this encounter
--- OUTSIDE RECORDS SUMMARY | 2024-10-10 11:39 | XMS_ITS | Encounter Summary ---
Author Organization [facility] Address [address] [place] [address] Care Team Providers Care Telephony Engineer Name Role Phone Needs Pcp, Assignment Primary Care Provider [phone] Encounter Details Date Type Department Care Team (Late st Contact Info) Description 07/16/2019 Lab Requisition [facility] [address] [facility]. [place], [place] [address] Lul Hunter MD [address] [place], [place] [phone] Encounter for surgical aftercare following surgery on [...] organs documented in this encounter Care Teams Telephony Engineer Relationship Specialty Start Date End Date Needs Pcp, [place] [address] PCP - General 02/28/21 documented as of this encounter
[2024-10-10 11:44] VITALS: BP 130/78; PULSE 114; RESP 16; TEMP 36.6; O2SAT 97; BMI 25.7
--- NOTE | 2024-10-10 12:07 | CRLHL7_ITS ---
For Patients: As a result of the Century Cures Act, medical imaging exams and procedure reports are released immediately into your electronic medical record. You may view this report before your referring provider. If you have questions, please contact your health care provider. INDICATION: Right lower quadrant pain TECHNIQUE: CT abdomen and pelvis without contrast. COMPARISON: CT 12/26/2023 FINDINGS: : Lower chest: Basilar atelectasis. A few micro nodules are unchanged example 3 millimeter nodule in the lingula 07/16 stable Liver: Normal in size and attenuation. No suspicious masses. Gallbladder and bile ducts: No stones or inflammation. No biliary dilatation. Pancreas: Unremarkable. No mass or inflammation. Spleen: Normal in size. No masses. Adrenal glands: Normal in size. No nodules. Kidneys: Left renal cyst. Too small to characterize low-attenuation lesion left kidney. GI tract: Unremarkable. Normal in caliber. No sign of mass or inflammation. Normal appendix. Vasculature: Abdominal aorta is normal in caliber. Lymph nodes: No lymphadenopathy. Peritoneum/Abdominal Wall: Unremarkable. No sign of mass or infiltration. No free air or significant free fluid. Pelvis: Urinary bladder demonstrates minimal wall thickening Bones: Right hip arthroplasty causing streak artifact in the pelvis. IMPRESSION: 1. Normal appendix. No acute findings in the abdomen or pelvis. Minimal wall thickening of the urinary bladder could be correlated for cystitis. Please note that all CT scans at this facility use dose modulation, iterative reconstruction, and/or weight-based dosing when appropriate to reduce radiation dose to as low as reasonably achievable. Dictated by Tamia David MD @ 10/10/2024 2:02:25 PM (Electronically Signed)
--- NOTE | 2024-10-10 12:07 | ED.ABDPAIN ---
HPI - Abdominal Pain General Chief Complaint: Abdominal Pain Stated Complaint: abdominal pain Time Seen by Provider: 10/10/24 11:37 History of Present Illness HPI narrative: This 64-year-old female comes in reporting abdominal pain primarily in the right lower quadrant that began last evening. She states that the pain comes and goes. Sometimes she has no pain and other times it is more severe. She does not have any diarrhea, vomiting, or fevers. She does report some nausea symptoms. She states that the pain did awaken her a couple times last night. She reports a history of hemicolectomy secondary to recurrent diverticulitis. She has been doing much better since this surgery in that regard. Related Data Home Medications ?Medication ?Instructions ?Recorded ?Confirmed liothyronine 5 mcg tablet 5 mcg PO .B.i.d. 11/21/21 10/10/24 lorazepam 0.5 mg tablet 0.5 mg PO Q12H PRN 12/08/21 10/10/24 melatonin 3 mg capsule 9 mg PO HS 12/08/21 10/10/24 trazodone 50 mg tablet 100 mg PO QHS PRN 01/17/23 10/10/24 buspirone 15 mg tablet 15 mg PO BID 03/25/23 10/10/24 cyclosporine 0.05 % eye drops in a drp ophthalmic (eye) 03/25/23 08/25/24 dropperette lidocaine HCl 2 % mucosal solution PO 03/25/23 08/25/24 (Lidocaine Viscous) tretinoin 0.025 % topical cream 1 applic topical QPM 03/25/23 10/10/24 valacyclovir 1 gram tablet 1,000 mg PO 3XD 03/25/23 10/10/24 varenicline tartrate 0.03 mg/spray intranasal 03/25/23 08/25/24 metered nasal spray (Tyrvaya) cyclobenzaprine 5 mg tablet 5 mg PO QPM PRN 09/17/23 10/10/24 vilazodone 20 mg tablet 20 mg PO DAILY 11/10/23 10/10/24 alirocumab 150 mg/mL subcutaneous mg subcut Q2W 08/25/24 08/25/24 pen injector (Praluent Pen) rosuvastatin 5 mg tablet 5 mg PO DAILY 10/10/24 10/10/24 sumatriptan succinate 25 mg tablet mg PO 10/10/24 Previous Rx's ?Medication ?Instructions ?Recorded Lactobacillus acidophilus 0.5 mg 1 tab PO TIDWM 90 days #90 tabs 12/10/21 (100 million cell) tablet albuterol sulfate 90 mcg/actuation 2 puff inhalation Q4-6H PRN 03/05/23 aerosol inhaler shortness of breath or wheezing #8.5 grams ondansetron HCl 4 mg tablet 4 mg PO Q6H #10 tabs 11/11/23 hydromorphone 2 mg tablet 2 mg PO Q6H PRN pain #8 tabs 07/21/24 clobetasol 0.05 % topical ointment 1 applic topical BID PRN itching 08/18/24 #30 grams estradiol 1 mg tablet 0.5 mg (1/2 x 1 mg) PO QDAY #45 08/25/24 tabs estradiol 10 mcg vaginal tablet 10 mcg vaginal 2XW #24 tabs 08/25/24 (Yuvafem) progesterone micronized 100 mg 100 mg PO QHS #90 caps 08/25/24 capsule ketorolac 10 mg tablet 10 mg PO TID 5 days #15 tabs 10/10/24 Allergies Allergy/AdvReac Type Severity Reaction Status Date / Time auranofin Allergy Verified 10/10/24 13:16 cat dander Allergy Verified 10/10/24 13:16 Gadolinium-Containing Allergy Verified 10/10/24 13:16 Contrast Medi gluten Allergy Verified 10/10/24 13:16 gold keratinate Allergy Verified 10/10/24 13:16 gold sodium thiomalate Allergy Verified 10/10/24 13:16 ketamine Allergy Verified 10/10/24 13:16 lactose Allergy Verified 10/10/24 13:16 Opioids - Morphine Analogues Allergy Verified 10/10/24 13:16 goldshots Allergy Severe Anaphylaxis Uncoded 10/10/24 13:16 Review of Systems Status of ROS Reports: 10 or more systems reviewed and unremarkable except as noted in History and below Narrative Constitutional: No fevers, no weight gain or loss. Eyes: No discharge. No vision changes. HENT: No congestion, no sore throat, no ear pain. Cardiovascular: No chest pain, no palpitations. Respiratory: No shortness of breath, no wheezes, no cough. Gastrointestinal: No vomiting, no diarrhea. Abdominal pain as described above. Genitourinary: No dysuria, no hematuria. Musculoskeletal: Normal range of motion. Skin: No rashes, no pruritis. Neurological: No dizziness, weakness, sensory change, speech change. Endo/Heme/Allergies: No bruising or bleeding. No polydipsia. Pysch: no suicidality, no anxiety, no insomnia. All other systems reviewed and are negative. [facility] Medical History Herpes zoster ?B02.9 - Zoster without complications (ICD-10) Diverticulitis ?K57.92 - Diverticulitis of intestine, part unspecified, without perforation or abscess without bleeding (ICD-10) Closed T12 fracture ?S22.089A - Unspecified fracture of T11-T12 vertebra, initial encounter for closed fracture (ICD-10) History of Clostridioides difficile colitis ?Z86.19 - Personal history of other infectious and parasitic diseases (ICD-10) History of hypothyroidism ?Z86.39 - Personal history of other endocrine, nutritional and metabolic disease (ICD-10) History of diverticulitis of colon (05/09/11) ?Z87.19 - Personal history of other diseases of the digestive system (ICD-10) History of Clostridioides difficile infection ?Z86.19 - Personal history of other infectious and parasitic diseases (ICD-10) Abscess of sigmoid colon due to diverticulitis ?K57.20 - Diverticulitis of large intestine with perforation and abscess without bleeding (ICD-10) Osteoporosis ?M81.0 - Age-related osteoporosis without current pathological fracture (ICD-10) Sigmoid diverticulitis ?K57.32 - Diverticulitis of large intestine without perforation or abscess without bleeding (ICD-10) History of femur fracture ?Z87.81 - Personal history of (healed) traumatic fracture (ICD-10) Insomnia ?G47.00 - Insomnia, unspecified (ICD-10) Anxiety ?F41.9 - Anxiety disorder, unspecified (ICD-10) Sarcoidosis ?D86.9 - Sarcoidosis, unspecified (ICD-10) Hypothyroidism ?E03.9 - Hypothyroidism, unspecified (ICD-10) Sensorineural hearing loss (SNHL) of both ears ?H90.3 - Sensorineural hearing loss, bilateral (ICD-10) Depression ?F32.A - Depression, unspecified (ICD-10) Chronic fatigue syndrome ?R53.82 - Chronic fatigue, unspecified (ICD-10) 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 - Unspecified juvenile rheumatoid arthritis of unspecified site (ICD-10) Migraines ?G43.909 - Migraine, unspecified, not intractable, without status migrainosus (ICD-10) Diverticulitis of intestine with abscess ?K57.80 - Diverticulitis of intestine, part unspecified, with perforation and abscess without bleeding (ICD-10) Surgical History History of total knee replacement ?Z96.659 - Presence of unspecified artificial knee joint (ICD-10) S/P hammer toe correction ?Z98.890 - Other specified postprocedural states (ICD-10) ?Z87.39 - Personal history of other diseases of the musculoskeletal system and connective tissue (ICD-10) History of repair of rotator cuff ?Z98.890 - Other specified postprocedural states (ICD-10) History of tonsillectomy ?Z90.89 - Acquired absence of other organs (ICD-10) History of total hip arthroplasty ?Z96.649 - Presence of unspecified artificial hip joint (ICD-10) History of bilateral knee arthroplasty ?Z96.653 - Presence of artificial knee joint, bilateral (ICD-10) Family History Father High blood pressure Hyperlipidemia Mother High blood pressure Hyperlipidemia Sister Seizure disorder Social History Narrative: She lives alone in [place]. 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 She does not smoke. She drinks alcohol about once a month. She uses no recreational drugs. She does have a history of chemical dependency. Healthcare power of banking attorney is her sister Denise. Code status is full. Are you following a special diet: Yes (no gluten, lactose intolerent) Highest level of school completed/degree received: Master's degree Smoking Status: Never smoker Do you use any of these nicotine containing products: None Second hand tobacco smoke exposure: No How often do you have a drink containing alcohol: monthly or less AUDIT-C Alcohol total score: 1 Non-prescribed substance use: denies use Caffeine: Yes (coffee 3x weekly) Are you now , , , , never or living with a partner: Social isolation score (0-1 are the most socially isolated patients): 0 Are you currently sexually active: No service: No Exam Narrative: Exam Narrative: Constitutional: Well-developed, well-nourished, no acute distress. HEENT: Normocephalic, atraumatic. Neck: Normal range of motion. Nontender. Supple. Heart: Regular. No murmurs. Normal rate. Intact distal pulses. Lungs: Clear to auscultation. No chest discomfort. No wheezes, rhonchi, or rales. Abdomen: Normal bowel sounds. Diffuse tenderness in the right lower quadrant. Rovsing sign is negative. No rebound tenderness. Genitalia: Deferred. Back: No midline tenderness. Normal range of motion. Extremities: Normal range of motion. No injury. Skin: Intact. No rash. Warm. No erythema or pallor. Neurologic: No altered sensation. No weakness. Alert and oriented. Psychiatric: No suicidality. No anxiety or depression. No insomnia. Nursing notes and vitals signs are reviewed. Const: Vital Signs, click to edit/add: Vital Signs - 24 hr 10/10/24 11:44 10/10/24 13:58 Temperature 97.9 F Pulse Rate [Pulse Oximeter] 114 H 78 Respiratory Rate 16 Blood Pressure [Le ft Upper Arm] 130/78 104/54 L Pulse Oximetry 97 97 Oxygen Delivery Me thod Room Air Room Air Course Vital Signs Vital signs: Initial Vital Signs Temperature 97.9 F 10/10/24 11:44 Temperature Source Oral 10/10/24 11:44 Pulse Rate 114 H 10/10/24 11:44 Respiratory Rate 16 10/10/24 11:44 Blood Pressure 130/78 10/10/24 11:44 Blood Pressure Mean 95 10/10/24 11:44 Blood Pressure Position Sitting 10/10/24 11:44 Pulse Oximetry 97 10/10/24 11:44 Oxygen Delivery Method Room Air 10/10/24 11:44 Vital Signs Temperature 97.9 F 10/10/24 11:44 Pulse Rate 114 H 10/10/24 11:44 Respiratory Rate 16 10/10/24 11:44 Blood Pressure 130/78 10/10/24 11:44 Pulse Oximetry 97 10/10/24 11:44 Oxygen Delivery Method Room Air 10/10/24 11:44 Temperature 97.9 F 10/10/24 11:44 Pulse Rate 78 10/10/24 13:58 Respiratory Rate 16 10/10/24 11:44 Blood Pressure 104/54 L 10/10/24 13:58 Pulse Oximetry 97 10/10/24 13:58 Oxygen Delivery Method Room Air 10/10/24 13:58 MDM - Abdominal Pain MDM Narrative Medical decision making narrative: This patient comes in with abdominal pain that is crampy in nature and seems to be more located in her right lower abdomen. Her examination is actually reassuring but given her symptoms I did nevertheless order a CT scan with IV contrast. This returns with no significant finding to explain her symptoms. Additionally lab results are also reassuring. The patient did receive an IV dose of Toradol 15 mg and a prescription for tablets of the same. She is okay to be discharged home. Lab Data Labs: Lab Results 10/10/24 10/10/24 Range/Units 12:15 14:07 WBC 5.33 (4.50-11.00) K/uL RBC 4.57 (4.00-5.20) m/uL Hgb 14.1 (12.0-16.0) gm/dL Hct 42.3 (33.0-51.0) % MCV 93 (80-100) fL MCH 31 (26-34) pg MCHC 33 (32-36) gm/dL RDW Coeff of Chuck 11.6 (11.5-15.5) % Plt Count 206 (140-440) K/uL Neut % (Auto) 73.3 H (42.0-72.0) % Lymph % (Auto) 17.6 L (20-44) % [place] % (Auto) 6.8 (0.0-11.0) % Eos % (Auto) 1.7 (0.0-7.0) % Baso % (Auto) 0.4 (0.0-3.0) % Neut # (Auto) 3.90 (1.7-7.0) K/uL Lymph # (Auto) 0.90 (0.90-2.90) K/uL [place] # (Auto) 0.40 (0.00-0.90) K/UL Eos # (Auto) 0.09 (0.00-0.50) K/uL Baso # (Auto) 0.02 (0.00-0.30) K/uL Abs Immat Gran (auto) 0.01 (0.00-0.30) K/uL Imm/Tot Granulo (auto) 0.2 % Sodium 139 (135-149) mmol/L Potassium 4.0 (3.6-5.1) mmol/L Chloride 104 (96-114) mmol/L Carbon Dioxide 25 (20-32) mmol/L Anion Gap 10 (7-15) mEq/L BUN 23 (7-30) mg/dL Creatinine 0.9 (0.5-1.5) mg/dL Estimated Creat Clear 58.61 Estimated GFR 71 ml/min Glucose 128 H (60-115) mg/dL Calcium 9.3 (8.4-10.6) mg/dL Urine Color Yellow (Yellow) Urine Appearance Clear (Clear) Urine pH 6.5 (5.0-8.5) Ur Specific [place] 1.010 (1.000-1.030) Urine Protein Negative (Negative) Urine Glucose (UA) Negative (Negative) Urine Ketones Negative (Negative) Urine Blood Negative (Negative) Urine Nitrite Negative (Negative) Urine Bilirubin Negative (Negative) Urine Urobilinogen 0.2 (0.2-1.0) Ur Leukocyte Esterase Negative (Negative) Urine RBC 0-2 (0-2) Urine WBC 0-2 (0-5) Ur Squamous Epith Cells Few (None-Few) Amorphous Sediment Few A (None) Urine Bacteria None (None) Imaging Data CT scan - abdomen: Radiologist's impression: Normal appendix. No acute findings in the abdomen or pelvis. Minimal wall thickening of the urinary bladder could be correlated for cystitis. Discharge Plan Discharge Clinical Impression: Abdominal pain Patient Disposition: Home, Self-Care Condition: Stable Additional Instructions: Take medication as needed and directed. Follow up with MD or return if symptoms are persistent or worsening. Prescriptions: New ketorolac 10 mg tablet 10 mg PO TID 5 Days Qty: 15 0RF No Action trazodone 50 mg tablet 100 mg PO QHS PRN Tyrvaya 0.03 mg/spray spray, metered, non-aerosol intranasal Patient Comments: [NO ORIGINAL SIG] cyclosporine 0.05 % dropperette ophthalmic (eye) lidocaine HCl [Lidocaine Viscous] 2 % solution PO tretinoin 0.025 % cream 1 applic topical QPM buspirone 15 mg tablet 15 mg PO BID valacyclovir 1 gram tablet 1,000 mg PO 3XD cyclobenzaprine 5 mg tablet 5 mg PO QPM PRN vilazodone 20 mg tablet 20 mg PO DAILY Praluent Pen 150 mg/mL pen injector subcut Q2W estradiol [Yuvafem] 10 mcg tablet 10 mcg vaginal 2XW Qty: 24 3RF estradiol 1 mg tablet 0.5 mg PO QDAY Qty: 45 3RF Rx Instructions: Take 1/2 tab (0.5 mg) daily. progesterone micronized 100 mg capsule 100 mg PO QHS Qty: 90 3RF albuterol sulfate 90 mcg/actuation HFA aerosol inhaler 2 puff inhalation Q4-6H PRN (Reason: shortness of breath or wheezing) Qty: 8.5 0RF ondansetron HCl 4 mg tablet 4 mg PO Q6H Qty: 10 0RF hydromorphone 2 mg tablet 2 mg PO Q6H PRN (Reason: pain) Qty: 8 0RF liothyronine 5 mcg tablet 5 mcg PO .B.i.d. lorazepam 0.5 mg tablet 0.5 mg PO Q12H PRN melatonin 3 mg capsule 9 mg PO HS Lactobacillus acidophilus 0.5 mg (100 million cell) Tablet 1 tab PO TIDWM 90 Days Qty: 90 0RF sumatriptan succinate 25 mg tablet PO rosuvastatin 5 mg tablet 5 mg PO DAILY clobetasol 0.05 % ointment 1 applic topical BID PRN (Reason: itching) Qty: 30 2RF Follow Up/Referrals: Nivia Bruno MD [Primary Care Provider, Family Practice] [facility]
[2024-10-10 12:22] LABS: Basophils Absolute Auto 0.02 K/uL (0.00-0.30); Basophils Percent Auto 0.4 % (0.0-3.0); Eosinophils Absolute Auto 0.09 K/uL (0.00-0.50); Eosinophils Percent Auto 1.7 % (0.0-7.0); Hematocrit* 42.3 % (33.0-51.0); Hemoglobin* 14.1 gm/dL (12.0-16.0); Immature Granulocytes Abs Auto 0.01 K/uL (0.00-0.30); Immature Granulocytes Pct Auto 0.2 %; Lymphocytes Percent Auto 17.6 % (20-44); Mean Corpuscular HGB Conc 33 gm/dL (32-36); Mean Corpuscular Hemoglobin 31 pg (26-34); Mean Corpuscular Volume 93 fL (80-100); Monocytes Percent Auto 6.8 % (0.0-11.0); Neutrophils Percent Auto 73.3 % (42.0-72.0); Platelet Count* 206 K/uL (140-440); RDW Coefficient of Variation % 11.6 % (11.5-15.5); Red Blood Count* 4.57 m/uL (4.00-5.20); Slide Review Reflex No; White Blood Count* 5.33 K/uL (4.50-11.00)
--- OUTSIDE RECORDS SUMMARY | 2024-10-10 12:29 | XMS_ITS | Clinical Summary ---
Author Organization [facility] Address [address] [place] [id number] Care Team Providers Care Sql Database Developer Name Role Phone Nivia Bruno MD Primary Care Provider Judie Carreno PharmD Unavailable [phone] Allergies Active Allergy Reactions Criticality Noted Date [...] mouth every 4 hours if needed. 0 Active naloxone (Narcan) 4 mg/actuation nasal sprayIndications: At risk for injury due to substance overdose Inhale 1 [place] into affected nostril(s) each time if needed for Patient Diff To Arouse or Resp Rate < 8 / min. Additional doses may be given every 2 to 3 minutes until emergency medical assistance arrives. 2 Each 024 Active cyclobenzaprine (FLEXERIL) 5 mg tablet Take 5 mg by mouth at bedtime if needed for Muscle Spasm. Active clobetasol 0.05% (TEMOVATE 0.05% OINTMENT) 0.05 % ointmentIndicatio ns:Lichen sclerosus APPLY TOPICALLY TO AFFECTED AREA(S)TWO TIMES DAILY NEEDED TO LICHEN SCLEROSUS IN VAGINAL AREA. 60 g Active progesterone micronized (PROMETRIUM) 100 mg capsuleIndication s:Postmenopausal, Hormone replacement therapy Take 1 Capsule (100 mg) by mouth at bedtime. 90 Capsule Active medication order composerIndicatio ns:Fibromyalgia [facility] Calcium Citrate, 250 mg 1x/day [...] Apple Cider Vinegar - PRN NN Ultimate [place]-3 - daily Body Bio Balance Oil (omega-3/omega- 6 blend) - 2 capsules daily Body Bio PC - daily BodyBio Tudca - daily Active hydrocortisone 2.5 % creamIndications: Hemorrhoids, external Apply topically to affected area(s) two times daily. 30 g 024 Active ketoconazole 2 % creamIndications: Vaginal irritation Apply topically to affected area(s) two times daily. 60 g 024 Active estradioL (VAGIFEM) 10 mcg tab vaginal tablet As directed. 024 Active estradioL (ESTRACE) 1 mg tablet 024 Active aspirin (ECOTRIN) 81 mg enteric coated tabletIndications :Calcified atheromatous plaque Take 1 Tablet (81 mg) by mouth once daily with a meal. 100 Tablet 3 024 Active valACYclovir (VALTREX) 1 gram tabletIndications :Genital herpes simplex, unspecified site Take 1 Tablet (1 g) by mouth three times daily. Tid X 7 Days 21 Tablet 025 Active rosuvastatin (CRESTOR) 5 mg tabletIndications :Calcified atheromatous plaque Take 1 Tablet (5 mg) by mouth at bedtime. 90 Tablet 3 025 Active Additional Information Patient not taking.Reported on 08/09/2024 triamcinolone 0.1 % lotionIndications :Dermatitis Apply topically to affected area(s) three times daily. 60 mL 025 Active Graduated Compression StockingsIndicati ons:Bilateral leg edema For personal use. Length: calf Strength: 20-30 mmHg 1 Packet 025 Active alirocumab (Praluent Pen) 150 mg/mL pnij Inject 150 mg subcutaneous every 2 weeks. 2 mL 3 025 Active empty container (Sharps Container) [facility] [place]. 1 Each 025 Active albendazole (ALBENZA) 200 mg tablet 025 Active lidocaine 5 % topical patchIndications: Lumbar radiculopathy Apply on dry, clean, hairless skin. Apply 1 patch to painful area of skin for up to to 12 hours within 24 hour period. 30 Patch 1 025 Active acetaminophen SR 650 mg Extended-Release tabletIndications :Chronic polyarticular juvenile rheumatoid arthritis (HC) Take 1 Tablet (650 mg) by mouth every 8 hours if needed (pain). 270 Tablet 3 025 Active busPIRone 15 mg tabletIndications :KATY (generalized anxiety disorder) Take 1 Tablet (15 mg) by mouth two times daily. 180 Tablet 1 Active LORazepam 0.5 mg tabIndications:GA D (generalized anxiety disorder) Take 1 Tablet (0.5 mg) by mouth 2 times daily if needed for Anxiety. 60 Tablet 1 Active traZODone 100 mg tabletIndications :KATY (generalized anxiety disorder),Primary insomnia Take 1 Tablet (100 mg) by mouth at bedtime. 90 Tablet 1 Active vilazodone 20 mg tabletIndications :KATY (generalized anxiety disorder),Recurre nt major depressive disorder, in partial remission Take 1 Tablet (20 mg) by mouth once daily. 90 Tablet 1 Active liothyronine 5 mcg tabletIndications :Hypothyroidism, unspecified type Take 1 tablet (5 mcg) by mouth two times daily. 180 Tablet Active liothyronine 5 mcg tabletIndications :Hypothyroidism, unspecified type Take 1 tablet (5 mcg) by mouth two times daily. 180 Tablet 1 Active vilazodone 10 mg tabletIndications :Recurrent major depressive disorder, in partial remission,KATY (generalized anxiety disorder) Take 1 Tablet (10 mg) by mouth once daily with a meal. Take wiht 20 mg tab for total of 30 mg daily. 30 Tablet 2 Active ondansetron 4 mg disintegrating tabletIndications :Nausea Place 1 Tablet (4 mg) on the tongue every 8 hours if needed for Nausea/Vomiting . 30 Tablet 2 Active OLANzapine 2.5 mg tabletIndications :KATY (generalized anxiety disorder),Nausea, Primary insomnia Take 1 Tablet (2.5 mg) by mouth at bedtime. 30 Tablet 2 Active SUMAtriptan 25 mg tabletIndications :Hx of migraines TAKE ONE TABLET (25 MG) BY MOUTH EVERY 2 HOURS IF NEEDED FOR MIGRAINE (MAXIMUM OF 2 DOSES IN 1 DAY) 9 Tablet Active HYDROmorphone 8 mg tabletIndications :Lumbar radiculopathy Take 0.5 Tablets (4 mg) by mouth 3 times daily if needed for Pain. 12 Tablet Active SUMAtriptan (IMITREX) 25 mg tabletIndications :Hx of migraines Take 1 Tablet (25 mg) by mouth 2 times daily if needed for Migraine (Repeat in 2 hours prn, maximum of 2 doses in 1 day.). 9 Tablet 2 024 2024 Discontinued HYDROmorphone 2 mg tabletIndications :Blunt trauma of right thigh, subsequent encounter Take 0.5 Tablets (1 mg) by mouth every 6 hours if needed for Pain. 28 Tablet 025 2024 Discontinued(R eorder (E-cancel not sent)) HYDROmorphone 2 mg tabletIndications :Blunt trauma of right thigh, subsequent encounter Take 0.5 Tablets (1 mg) by mouth every 6 hours if needed for Pain. 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 3 Dysthymic disorder 11/26/2007 6 Unspecified drug dependence, in remission 01/25/2022 Encounters Date Type Department Care Team Description 10/08/2024 Nurse Triage [facility] [address] [place] [address] Facundo Mijares MD Refill Request 10/08/2024 Telephone [facility] [address] [place] [address] Facundo Mijares MD Need Meds (HYDROmorphone 2 mg tablet) 10/07/2024 2:00 PM CDT Procedure Only [facility] [address] [place] [address] Tyler Parson L Ac Acupuncture 10/07/2024 Travel 10/07/2024 Telephone [facility] [address] [place] [address] Nivia Bruno MD Immunization/Injection (RECLAST, FIRST DOSE) 09/30/2024 1:00 PM CDT Procedure Only [facility] [address] [place] [address] Tyler Parson L Ac Acupuncture 09/30/2024 Travel 09/28/2024 1:00 PM CDT Phone Office Visit [facility] [address] [place] [phone] Keiko Downs, CARE MANAGEMENT ASSISTANT Individual Therapy; Phone Visit 09/28/2024 Travel 09/23/2024 2:00 PM CDT Procedure Only [facility] [address] [place] [address] Tyler Parson L Ac Acupuncture 09/23/2024 Travel 09/21/2024 1:00 PM CDT Phone Office Visit [facility] [address] [place] [address] Keiko Downs, CARE MANAGEMENT ASSISTANT Individual Therapy; Phone Visit 09/21/2024 Travel 09/15/2024 2:30 PM CDT Ancillary Procedure [facility] [address] [place] [address] 09/15/2024 2:00 PM CDT Ancillary Procedure [facility] [address] [place] [address] 09/15/2024 Travel 09/14/2024 1:00 PM CDT Phone Office Visit [facility] [address] [place] [address] Keiko Downs CARE MANAGEMENT ASSISTANT Individual Therapy; Phone Visit 09/14/2024 Travel 09/13/2024 Refill [facility] [address] [place] [address] Nivia Bruno MD Refill Request (Sumatriptan) 09/10/2024 2:00 PM CDT Procedure Only [facility] [address] [place] [address] Tyler Parson L Ac Acupuncture 09/10/2024 10:15 AM CDT Phone Office Visit [facility] [address] [place] [address] Freda Serrano MD Medication Management 09/10/2024 Travel 09/07/2024 1:00 PM CDT Phone Office Visit [facility] [address] [place] [address] Keiko Downs CARE MANAGEMENT ASSISTANT Individual Therapy; [facility]/06/[facility] 10:50 AM CDT Office Visit [facility] [address] [place] [address] Sanjuanita Marques MD Breast Problem (left side, present for the last few months, right side, present for years. 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 ) 09/06/2024 Travel 09/03/2024 Telephone [facility] [address] [place] [address] Nivia Bruno MD Health Maintenance Update 09/02/2024 1:30 PM CDT Procedure Only [facility] [place] [address] Tyler Parson L Ac Acupuncture 09/02/[address] [address] Freda Serrano MD Med Change Request 09/02/2024 Travel 09/02/[address] [address] Nivia Bruno MD Referral (Infusion (Reclast) ) 09/02/[address] [address] Nivia Bruno MD Referral (Diagnostic Breast Imaging ) 08/30/[address] [phone] Keiko Downs LICSW Late Cancel Appointment (08/31 - dentist appointment ) 08/26/2024 1:00 PM CDT Procedure Only [address] [address] Tyler Parson L Ac Acupuncture 08/26/2024 Travel 08/24/2024 1:00 PM CDT Phone Office Visit [address] [phone] Keiko Downs, [facility] Failed Appointment (2nd failed appt) 08/24/2024 Travel 08/19/2024 2:00 PM CDT Procedure Only [address] [address] Tyler Parson L Ac Acupuncture 08/19/2024 Travel 08/17/2024 1:30 PM CDT Phone Office Visit [address] [phone] eKiko Downs, [facility] Individual Therapy; Phone Visit 08/17/2024 Travel 08/13/[address] [address] Nivia Bruno MD Referral (Infectious Disease ) 08/13/[address] [address] Jyoti Sellers PA Refill Request; LIOTHYRONINE SODIUM 08/11/[address] [address] Nivia Bruno MD Refill Request (liothyronine (CYTOMEL) 5 mcg tablet/) 08/10/2024 1:00 PM CDT Phone Office Visit [address] [phone] Keiko Downs [facility] Individual Therapy; Phone Visit 08/10/[address] [address] Freda Serrano MD Prior Authorization (OLANzapine 2.5 mg tablet (PA NOT NEEDED)) 08/10/[address] [address] Freda Serrano MD Questions (Prior Authorization. ) 08/10/[address] [address] Nivia Bruno MD Refill Request (Liothyronine sodium 5mcg tabs) 08/09/2024 1:15 PM CDT Phone Office Visit [facility] [address] [place] [address] Frdea eSrrano MD Phone Visit 08/09/2024 Travel 08/06/2024 11:05 AM CDT Office Visit [address] [address] Kourtney Cherry PA Derm Problem 08/06/2024 Travel 08/05/2024 Nurse Triage [address] [address] Nivia Bruno MD Itchiness 08/05/[address] [address] Kourtney Cherry PA Appointment Request (Swollen Ankle, Lethargic, Itchy skin as per patinet) 08/03/2024 2:00 PM CDT Procedure Only [address] [address] Tyler Parson L Ac Acupuncture 08/03/2024 Travel 08/02/[address] [address] Nivia Bruno MD Refill Request (Acetaminophen Sr) 07/27/2024 1:00 PM CDT Phone Office Visit [address] [phone] Keiko Downs, [facility] Individual Therapy; Phone Visit 07/27/2024 Travel 07/22/2024 1:20 PM CDT Office Visit [address] [address] Facundo Mijares MD Musculoskeletal Problem (Consult right elbow and chest pain. Patient fell on 07/20/24) 07/22/[address] [address] Facundo Mijares MD Medication Management (Hydromorphone ) 07/22/2024 Travel 07/22/2024 Telephone [facility] [address] [place] [address] Facundo Mijares MD returning call 07/21/2024 Orders Only [facility] Scanner 1 scan: (1-Ord) [facility], XR HAND RT MIN 3V, 07/21/2024 07/21/2024 Telephone [facility] [address] [place] [address] Facundo Mijares MD Appointment 07/21/2024 Orders Only [facility] Scanner 1 scan: (1-Ord) [facility], XR RIBS R, W/ CXR, 07/21/2024 07/20/[address] [address] Freda Serrano MD Mental Health Issue 07/19/[address] [address] Freda Serrano MD Parasites 07/19/[address] [address] Maria G Villavicencio, Results 07/19/[address] [address] Maria G Villavicencio, Results 07/16/2024 11:25 AM INTERNAL AUDIT SENIOR MANAGER Office Visit [address] [address] Maria G Villavicencio, Nose Problem (States she has worms in her nose-she states she has fresh samples brought in) 07/16/2024 9:00 AM INTERNAL AUDIT SENIOR MANAGER Ancillary Procedure [address] [address] 07/16/2024 8:10 AM INTERNAL AUDIT SENIOR MANAGER Procedure Only [address] [address] Facundo Mijares MD Procedure (Ultrasound guided injection lef... 07/16/[address] [address] Facundo Mijares MD Results (xray ) 07/15/2024 10:30 AM INTERNAL AUDIT SENIOR MANAGER Procedure Only [facility] [address] [place] [address] Tyler Parson L Ac Acupuncture 07/15/[address] [address] Kourtney Cherry PA appointment (Medication ) 07/15/[address] [address] Nivia Bruno MD Error-please disregard 07/15/[address] [address] Nivia Bruno MD Callback (Call the patient ) 07/15/2024 Travel 07/15/2024 Nurse Triage [facility] [place] [address] [place] [address] Tomas Mckeon MD Error-please disregard 07/13/2024 1:00 PM INTERNAL AUDIT SENIOR MANAGER Phone Office Visit [address] [phone] Keiko Downs, [facility] Individual Therapy; Phone Visit 07/13/2024 Nurse Triage [address] [address] Nivia Bruno MD Sinus Problem; Worms in nasal cavity 07/13/[address] [address] Nivia Bruno MD Foreign Body (Worms coming out of nose) 07/13/2024 Travel from Last 3 Months Immunizations Immunization Administration Dates Next Due COVID-19 vaccine ([employer] NTRentShare 30mcg/0.3mL) 12YO+ TOMER-SUCROSE PF, MDV 08/21/2021 COVID-19 vaccine (Procured [employer]ech 30mcg/0.3mL) PF, MDV 08/09/2020,07/19/2020 DTaP 09/30/2005 Dtap Unspecified Formulation 05/31/2016 Hepatitis A (Adult) 04/27/2008 Hepatitis B (Adult) 03/03/2002,08/11/2001,2001 Influenza Virus, Unspecified 02/18/2007,02/23/20 03 Influenza, High-dose Quadriv alent Inactivated 03/16/2022,02/07/2014,03/08/2011,2009,02/18/2007,03/11/2005,02/23/2004 Influenza, IIV3 (Age 6-35 mos) 02/07/2014,2010 Influenza, IIV3 (Age >=3 years) 06/10/19 25,05/21/2012,04/28/2010,2008,03/15/2008,09/30/2005,03/11/2005,1 Influenza, IIV4 03/16/2022,03/27/2021,02/24/2020 Influenza, Inactivated IIV3 (Age 65+ Years) Preserv Free 06/10/2024 MMR 09/24/1999 Pneumococcal Conj 20-valent (Prevnar 20) 09/06/2024 Pneumococcal Poly,23-Valent (Pneumovax) 03/25/2017,07/11/2009,03/25/2007,2001 Td Adult (Tetanus [...] Answer Date Recorded PHQ-2 TOTAL SCORE 5 09/10/2024 Social Connections Answer Date Recorded Do you [...] on file Legal Sex Female 6:06 AM INTERNAL AUDIT SENIOR MANAGER Gender Identity Not on file Sexual Orientation [...] Sign Reading Time Taken Comments Blood Pressure 110/73 09/06/2024 11:06 AM CDT Pulse 80 09/06/2024 11:06 AM CDT Temperature 37.2 C (98.9 F) 07/22/2024 1:38 PM CDT Respiratory Rate 16 04/01/2022 3:21 PM INTERNAL AUDIT SENIOR MANAGER Oxygen Saturation 97% 08/06/2024 11:21 AM CDT Inhaled Oxygen Concentration - - Weight 80.9 kg (178 lb 6.4 oz) 09/06/2024 11:06 AM CDT Height 174 cm (5' 8.5) 04/14/2023 2:10 PM INTERNAL AUDIT SENIOR MANAGER Body Mass Index 26.73 04/14/2023 2:10 PM INTERNAL AUDIT SENIOR MANAGER Plan of Treatment Upcoming Encounters Date Type Department Care Team (Late st Contact Info) Description 10/12/2024 1:00 PM CDT Phone Office Visit [facility] [address] [place] [phone] Keiko Downs LICSW [address] [facility] [place] [address] 10/14/2024 10:50 AM CDT Office Visit [facility] [address] [place] [address] Nivia Bruno MD [address] [place] [address] 10/14/2024 2:00 PM CDT Procedure Only [facility] [address] [place] [address] Tyler Parson L Ac [address] [place] [address] 10/19/2024 1:00 PM CDT Phone Office Visit [facility] [address] [place] [phone] Keiko Downs LICSW [address] [place] [address] 10/21/2024 2:00 PM CDT Procedure Only [facility] [address] [place] [address] Tyler Parson L Ac [address] [place] [address] 10/26/2024 11:15 AM CDT Phone Office Visit [facility] [address] [place] [address] Freda Serrano MD [address] [place] [address] 10/28/2024 2:00 PM CDT Procedure Only [facility] [address] [place] [address] Tyler Parson L Ac [address] [place] [address] 11/02/2024 1:00 PM CDT Phone Office Visit [facility] [address] [place] [phone] Keiko Downs LICSW [address] [facility] [place] [address] 11/04/2024 1:00 PM CDT Procedure Only [facility] [address] [place] [address] Tyler Parson L Ac [address] [place] [address] 11/11/2024 1:00 PM CDT Procedure Only [facility] [address] [place] [address] Tyler Parson L Ac [address] [place] [address] 11/18/2024 1:30 PM CDT Procedure Only [facility] [address] [place] [address] Tyler Parson L Ac [address] [place] [address] 11/25/2024 10:30 AM CDT Procedure Only [facility] [address] [facility] [address] Tyler Parson, [place] [facility] [address] [facility] [address] 12/02/2024 1:00 PM CDT Procedure Only [facility] [address] [place] [address] Tyler Parson, Cot[place] Ac [address] [facility] [place] [address] 12/09/2024 1:30 PM CDT Procedure Only [facility] [address] [place] [address] Tyler Parson L Ac [address] [facility] [place] [address] 12/16/2024 1:30 PM CDT Procedure Only [facility] [address] [facility] [place] [address] Tyler Parson L Ac [address] [facility] [place] [address] 12/23/2024 2:00 PM CDT Procedure Only [facility] [address] [place] [address] Tyler Parson L Ac [address] [facility] [place] [address] 12/30/2024 1:30 PM CDT Procedure Only [facility] [address] [place] [address] Tyler Parson L Ac [address] [facility] [place] [address] 01/06/2025 2:00 PM CDT Procedure Only [facility] [address] [facility] [address] Tyler Parson, Coty Ac [address] [facility] [place] [address] 01/13/2025 1:30 PM CDT Procedure Only [facility] [address] [place] [address] Tyler Parson L Ac [address] [facility] [place] [address] 01/20/2025 1:30 PM CDT Procedure Only [facility] [address] [place] [address] Tyler Parson L Ac [address] [facility] [place] [address] 01/27/2025 1:30 PM CDT Procedure Only [facility] [address] [place] [address] Tyler Parson L Ac [address] [facility] [place] [address] 02/03/2025 2:00 PM CDT Procedure Only [facility] [address] [place] [address] Tyler Parson L Ac [address] [facility] [place] [address] 02/10/2025 1:30 PM CDT Procedure Only [facility] [address] [place] [address] Tyler Parson L Ac [address] [facility] [place] [address] 02/17/2025 1:30 PM CDT Procedure Only [facility] [address] [place] [address] Tyler Parson, L Ac [address] [facility] [place] [address] 02/24/2025 1:30 PM CDT Procedure Only [facility] [address] [place] [address] Tyler Parson, Coty Ac [address] [facility] [place] [address] 03/03/2025 1:30 PM CDT Procedure Only [facility] [address] [place] [address] Tyler Parson, Coty Ac [address] [facility] [place] [address] 03/10/2025 2:00 PM CDT Procedure Only [facility] [address] [place] [address] Tyler Parson, Coty Ac [address] [facility] [place] [address] 03/17/2025 2:00 PM INTERNAL AUDIT SENIOR MANAGER Procedure Only [facility] [address] [place] [address] Tyler Parson L Ac [address] [facility] [place] [address] 03/24/2025 2:00 PM INTERNAL AUDIT SENIOR MANAGER Procedure Only [facility] [address] [place] [address] Tyler Parson, L Ac [address] [facility] [place] [address] 03/31/2025 2:00 PM INTERNAL AUDIT SENIOR MANAGER Procedure Only [facility] [address] [place] [address] Tyler Parson, [place] [address] [place] [place] [address] 04/14/2025 2:00 PM INTERNAL AUDIT SENIOR MANAGER Procedure Only [facility] [address] [place] [address] Tyler Parson, Coty Ac [address] [facility] [place] [address] 04/21/2025 2:00 PM INTERNAL AUDIT SENIOR MANAGER Procedure Only [facility] [address] [place], [place] [address] Tyler Parson, Coty Ac [address] [facility] [place] [address] 04/28/2025 1:30 PM INTERNAL AUDIT SENIOR MANAGER Procedure Only [facility] [address] [place] [address] Tyler Parson, Coty Ac [address] [facility] [place] [address] Health Maintenance Due Date Last Done Comments RSV vaccine for adults or (1 - Risk 60-74 years 1-dose series) 2019 COVID-19 vaccine series ( season) 2024 06/11/2023, 08/21/2021, 02/21/2021, Additional history exists DEXA/DXA scan for age 65+ 04/11/20242023, 09/24/2023 (Verified in Care Everywhere or Patient Record), 09/19/2021, Additional history exists Medicare Wellness for age 65+ 2024 06/01/2019 BMI (ht and wt on same day) for age 18+ 04/14/2024 04/14/2023, 06/06/2022, 03/26/2022, Additional history exists Depression screening for age 12+ 09/10/2025 09/10/2024, 09/10/2024, 08/13/2024, Additional history exists Mammogram for age 45-75 09/15/2025 09/16/19, 08/01/2023, 05/13/2022, Additional history exists Tetanus booster 05/31/2026 05/31/2016, 09/30/2005 Pap test for age 21-65 11/03/2026 , 11/04/2023, 10/04/2022, Additional history exists Lipids for age 45-75 07/08/2028 07/08/2023, 09/04/2021, 02/24/2020, Additional history exists Colonoscopy through age 75 01/29/203201/28, 08/12/2018, 08/12/2018, Additional history exists Hepatitis B series for 19+ Completed 03/03, 08/11/2001, 07/10/2001 Tdap Completed 05/31/2016, 09/30/2005 Hepatitis C screening for ag e 18-79 Completed 09/30/2017, 04/02/2016 HIV for age 15-65 Completed 06/01/2018, , 08/28/2015, Additional history exists Zoster (shingles) series for age 50+ Completed 08/28/2020, 05/11/2020 Influenza Vaccine Completed 06/10/2024, , 03/16/2022, Additional history exists Pneumococcal series for age 50+ Completed 09/06/2024, 03/25/2017, 07/11/2009, Additional history exists Procedures Procedure Name Priority Date/Time Associated Diagnosis Comments ACUPUNCTURE PLAN OF CARE Routine 10/07/2024 3:25 PM CDT Other low back pain ACUPUNCTURE PLAN OF CARE Routine 09/30/2024 1:06 PM CDT Other low back pain ACUPUNCTURE PLAN OF CARE Routine 09/23/2024 3:29 PM CDT Other low back pain US BREAST BILATERAL LIMITED Routine 09/15/2024 2:35 PM CDT Pain of both breasts XR MAMMO EVA BILAT DIAG Routine 09/15/2024 2:20 PM CDT Pain of both breasts ACUPUNCTURE PLAN OF CARE Routine 09/10/2024 3:25 PM CDT Other low back pain HEMOGLOBIN A1C Routine 09/06/2024 12:29 PM CDT Prediabetes FERRITIN Routine 09/06/2024 12:29 PM CDT Fatigue, unspecified type Prurigo nodularis ACUPUNCTURE PLAN OF CARE Routine 09/02/2024 3:00 PM CDT Other low back pain ACUPUNCTURE PLAN OF CARE Routine 08/26/2024 2:48 PM CDT Other low back pain ACUPUNCTURE PLAN OF CARE Routine 08/19/2024 3:41 PM CDT Other low back pain ACUPUNCTURE PLAN OF CARE Routine 08/03/2024 3:23 PM CDT Other low back pain SCAN-RADIOLOGY REPORT 07/21/2024 12:00 AM CDT SCAN-RADIOLOGY REPORT 07/21/2024 12:00 AM CDT BEDSIDE US STUDY ARCHIVE Routine 07/16/2024 10:44 AM INTERNAL AUDIT SENIOR MANAGER Chronic polyarticular juvenile rheumatoid arthritis (HC) Effusion of elbow joint, left Left elbow pain PARASITE DIRECT EXAM Routine 07/16/2024 10:18 AM INTERNAL AUDIT SENIOR MANAGER XR FOOT 3 VIEWS LEFT Routine 07/16/2024 9:06 AM INTERNAL AUDIT SENIOR MANAGER Foot pain, left ACUPUNCTURE PLAN OF CARE Routine 07/15/2024 12:03 PM INTERNAL AUDIT SENIOR MANAGER Other low back pain SCARF GLUER THIN PREP PAP SCREEN IMAGED Routine 11/04/2023 3:50 PM CDT XR DXA BONE DENSITY 2 SITES AXIAL Routine 09/24/2023 2:28 PM CDT Osteopenia, unspecified location Menopause LIPID PANEL W REFLEX MEASURED LDL Routine 07/08/2023 12:07 PM INTERNAL AUDIT SENIOR MANAGER Hyperlipidemia, unspecified hyperlipidemia type SCAN-COLONOSCOPY 01/28/2022 1:00 PM CDT ANTI HIV 1/2 Routine 06/01/2018 4:02 PM INTERNAL AUDIT SENIOR MANAGER Exposure to STD ANTI HCV Routine 09/30/2017 5:38 PM CDT STD exposure from Last 3 Months or Most Recently Relevant to Health Maintenance Results * US BREAST BILATERAL LIMITED (09/15/2024 2:35 PM CDT) Anatomical Region Laterality Modality BREASTS, Breast Left, Breast Right Bilateral Ultrasound Narrative 09/15/2024 3:52 PM CDT For Patients: As a result of the Cures Act, medical imaging exams and procedure reports are released immediately into your electronic medical record. You may view this report before your referring provider. If you have questions, please contact your health care provider. BILATERAL BREAST ULTRASOUND, 09/15/2024 PLEASE SEE [id number] FOR DIGITAL BILATERAL MAMMOGRAM SAME DAY. us Sanjuanita Marques MD US Final Resul t * XR MAMMO EVA BILAT DIAG (09/15/2024 2:20 PM CDT) Anatomical Region Laterality Modality BREASTS, Breast Left, Breast Right Bilateral Mammography 09/15/2024 3:11 PM CDT Impressions 09/15/2024 3:52 PM CDT No suspicious findings. No evidence of malignancy. RECOMMENDATIONS: Routine screening mammography. Results and recommendations were discussed with the patient at the time of the exam. BI-RADS Category 2: Benign Dictated by: Walter Haji MD @09/15/2024 3:11:56 PM/jevelyn PATIENTS: You will also receive a letter with your examination results in an easy to read format. If you have questions about your results, please contact your referring provider. Narrative 09/15/2024 3:52 PM CDT For Patients: As a result of the Cures Act, medical imaging exams and procedure reports are released immediately into your electronic medical record. You may view this report before your referring provider. If you have questions, please contact your health care provider. DIGITAL DIAGNOSTIC BILATERAL MAMMOGRAM USING TOMOSYNTHESIS AND COMPUTER-AIDED DETECTION, 09/15/2024 BILATERAL BREAST ULTRASOUND, 09/15/2024 CLINICAL HISTORY: BILATERAL breast pain. COMPARISON: 08/01/2023, 05/13/2022, 05/10/2021. TECHNIQUE: Digital BILATERAL mammogram in four projections with computer-aided detection. Tomosynthesis was used in this interpretation. Real-time ultrasound imaging of BILATERAL breast with imaging documentation. BREAST COMPOSITION: There are scattered areas of fibroglandular density. FINDINGS: 3D CC/MLO BILATERAL mammogram images submitted. No suspicious masses or architectural distortion. No suspicious calcifications or adenopathy. Targeted LEFT breast ultrasound performed in the area of concern at 2 o'clock 10 cm from the nipple performed. Normal fibroglandular tissue is present. No fibrocystic change or mass. Targeted RIGHT breast ultrasound performed in the area of concern at 9 o'clock 7 cm from the nipple. Normal fibroglandular tissue is present. No fibrocystic change or mass. us Sanjuanita Marques MD MAMMO Final Resul t * (ABNORMAL) HEMOGLOBIN A1C (09/06/2024 12:29 PM CDT) HEMOGLOBIN A1C 6.0(H) <5.7 % [facility] Comment: For someone without known diabetes, [...] for children. Blood BLOOD SPECIMEN / Unknown 09/06/2024 12:29 PM CDT 09/06/2024 12:30 PM CDT Narrative [facility] - 09/07/2024 4:47 AM CDT FASTING:NO FASTING: NO us Sanjuanita Marques MD CHEMISTRY Final Resul t [facility] [address] [place] [address], [facility] [address] [place] [address] * FERRITIN (09/06/2024 12:29 PM CDT) FERRITIN 30 16 - 288 ng/mL [facility]Miguelito Melton Blood BLOOD SPECIMEN / Unknown 09/06/2024 12:29 PM CDT 09/06/2024 12:30 PM CDT Narrative [facility] - 09/07/2024 5:05 AM CDT FASTING:NO FASTING: NO us Sanjuanita Marques MD CHEMISTRY Final Resul t [facility] [address] [place] [phone], [facility] [address] [place] [phone] * SCAN-RADIOLOGY REPORT (07/21/2024 12:00 AM CDT) Only the most recent of2 resultswithin the time period is included. Anatomical Region Laterality Modality Other us Scanner OTHER Final Result * BEDSIDE US STUDY ARCHIVE (07/16/2024 10:44 AM INTERNAL AUDIT SENIOR MANAGER) Narrative Maureen Martinez - 07/16/2024 10:44 AM INTERNAL AUDIT SENIOR MANAGER The patient was seen for ultrasound guided [...] * PARASITE DIRECT EXAM (07/16/2024 10:18 AM INTERNAL AUDIT SENIOR MANAGER) PARASITE IDENTIFICATION [facility] Comment: Specimen submitted is an artifact (not a worm). 07/16/2024 10:1 8 AM INTERNAL AUDIT SENIOR MANAGER 07/16/2024 10:18 AM INTERNAL AUDIT SENIOR MANAGER Maria G Villavicencio DO MICROBIOLOGY Final Result [facility] [address] [place] [address], [facility]/[place], [address] [place] [address] * XR FOOT 3 VIEWS LEFT (07/16/2024 9:06 AM INTERNAL AUDIT SENIOR MANAGER) Anatomical Region Laterality Modality FEET, FOOT L Computed Radiogr aphy 07/16/2024 3:42 PM INTERNAL AUDIT SENIOR MANAGER Narrative 07/16/2024 3:42 PM INTERNAL AUDIT SENIOR MANAGER For Patients: As a result of the [...] MD GENERAL IMAGING Final Resu lt * SCARF GLUER THIN PREP PAP SCREEN IMAGED (11/04/2023 3:50 PM CDT) Case Report Gynecologic Cytology Report Case: [id number] Authorizing Provider: Corine Guillaume MD Collected: 11/04/2023 1550 Ordering Location: [facility] Received: 11/06/2023 0926 First Screen: Kathy Stephens Specimen: SCARF GLUER ThinPrep Vial Screening, Cervical 11/12/2023 1:05 PM CDT [facility] INTERPRETATION/ RESULT NEGATIVE FOR INTRAEPITHELIAL LESION OR MALIGNANCY (NIL) (none) 11/12/2023 1:05 PM CDT [email or web address] at 1305 CDT SPECIMEN ADEQUACY Satisfactory for evaluation Endocervical component present 11/12/2023 1:05 PM CDT [email or web address] HPV REQUEST HPV and PAP 11/12/2023 1:05 PM CDT [facility] Last Pap Date 11/12/2023 1:05 PM CDT [facility] Comment:09/2017 Last Pap Result NIL 1:05 PM CDT [facility] Abnormal Pap or [place] Bx in last 5 years No 11/12/2023 1:05 PM CDT [email or web address] Menstrual Status Postmenopausal 11/12/2023 1:05 PM CDT [email or web address] [place] Bx Done Today No 11/12/2023 1:05 PM CDT [facility] Additional Information 11/12/2023 1:05 PM CDT [facility] Comment: Interpreted at [facility] - [address], [place] [address] Automated Review Successful 11/12/2023 1:05 PM CDT [facility] Comment:Specimen processed s uccessfully by automated chief medical director device, [employer] Imaging System, [employer] ANCILLARY TESTING SCARF GLUER HPV Ordered, Please see separate report 11/12/2023 1:05 PM CDT [facility] Note The pap test is a [...] and malignant lesions. 11/12/2023 1:05 PM CDT [facility] Other (Cervical) 11/04/2023 3:50 PM CDT 11/06/2023 9:26 AM CDT us Corine Guillaume MD PATHOLOGY/CYTOLOGY Final R esult [facility] [address] [place] [address], * (ABNORMAL) XR DXA BONE DENSITY 2 [...] to assess therapeutic efficacy. Ann Jay PA-C [employer] [facility] 09/30/2023 Narrative 09/30/2023 1:49 PM CDT For Patients: Results are automatically released to your [employer] account once available, in compliance with federal regulations. This means that you may see your results before your provider has had a chance to review them. Please allow 2-3 business days for your provider to comment on the results. XR DXA Bone Mineral Density (BMD) EXAM LOCATION: [facility] [address] [facility] [address] PATIENT NAME: Juliette Brown DATE OF : [...] two scanners are made by the same dyer and washer. PROCEDURE: Dual-energy x-ray absorptiometry performed with routine [...] hip fracture: 3.2%. Nivia Bruno MD DEXA Final Resul t * (ABNORMAL) LIPID PANEL W REFLEX MEASURED LDL (07/08/2023 12:07 PM INTERNAL AUDIT SENIOR MANAGER) CHOLESTEROL,TOTAL 285(H) 100 - 199 mg/dL 07/08/2023 9:55 PM INTERNAL AUDIT SENIOR MANAGER [facility] Comment: Cholesterol, Total Reference Ranges Desirable <200 mg/dL Borderline 200-239 mg/dL High >=240 mg/dL TRIGLYCERIDES 97 <150 mg/dL 07/08/2023 9:55 PM INTERNAL AUDIT SENIOR MANAGER [facility] HDL CHOLESTEROL 76 >40 mg/dL 9:55 PM INTERNAL AUDIT SENIOR MANAGER [facility] NON-HDL CHOLESTEROL 209(H) <145 mg/dl 07/08/2023 9:55 PM INTERNAL AUDIT SENIOR MANAGER [facility] TR[facility] CHOL/HDL RATIO 3.75 <4.50 07/08/2023 9:55 PM INTERNAL AUDIT SENIOR MANAGER [facility] LDL CHOLESTEROL 190(H) <=130 mg/dL 07/08/2023 9:55 PM INTERNAL AUDIT SENIOR MANAGER [facility] VLDL CHOLESTEROL 19 <=30 mg/dL 07/08/2023 9:55 PM INTERNAL AUDIT SENIOR MANAGER [facility] TRAL LAB[facility]AT[facility] PROVIDER ORDERED STATUS RANDOM 07/08/2023 9:55 PM INTERNAL AUDIT SENIOR MANAGER [facility] Blood BLOOD SPECIMEN / Unknown Venipuncture / Unknown 07/08/2023 12:07 PM INTERNAL AUDIT SENIOR MANAGER 07/08/2023 12:07 PM INTERNAL AUDIT SENIOR MANAGER Nivia Bruno MD CHEMISTRY Final Resul t [facility] [address] [place] [address], [place] * SCAN-COLONOSCOPY (01/28/2022 1:00 PM CDT) Narrative Procedure Note Edison Ceron MD - 01/28/2022 12:02 PM CDT [facility] [address], [address], [place] [address] Patient Name: Juliette Brown Gender: Female Exam Date: 01/28/2022 Visit Number: [id number] Age: 61 Years 9 Months Date of : 1960 Attending MD: Edison Ceron MD Medical Record#: [id number] ----- Procedure: Colonoscopy Indications: Recent history of [...] Race: White Ethnicity: Not or Preferred Language: Georgian cc: Nivia Bruno MD [facility] [phone] us Edison Ceron MD OTHER Final Resu lt * ANTI HIV 1/2 (06/01/2018 4:02 PM INTERNAL AUDIT SENIOR MANAGER) Pathologist [facility] HIV-1/HIV-2 ANTIBODY Non-Reacti ve Non-Reacti ve 06/01/2018 8:08 PM INTERNAL AUDIT SENIOR MANAGER [facility] Comment:HIV-1 p24 and HIV-1/ HIV-2 Ab not detected. Blood BLOOD SPECIMEN / Unknown Venipuncture / Unknown 06/01/2018 4:02 PM INTERNAL AUDIT SENIOR MANAGER 06/01/2018 4:02 PM INTERNAL AUDIT SENIOR MANAGER us Nivia Bruno MD SEND OUTS Final Resul t [facility] [address] [place] [address], * ANTI HCV (09/30/2017 5:38 PM CDT) [facility] HEPATITIS C ANTIBODY Non-React mathieu Non-React mathieu 10/01/2017 2:41 PM CDT [facility] Comment:Antibodies to HCV no t detected; does not exclude the possibility of exposure to HCV. Blood BLOOD SPECIMEN / Unknown Venipuncture / Unknown 09/30/2017 5:38 PM CDT 09/30/2017 5:38 PM CDT us Kourtney GUERRERO SEND OUTS Final Result [facility] [address] [place] [address], from Last 3 Months or Most Recently Relevant to Health [place] [address] MEDICARE PB ONLY MEDICARE PART B HB ONLY MEDICARE PART A HB ONLY [facility] [place] [address] MEDICARE PB ONLY [facility] MEDIC[facility] PART B HB ONLY [facility] MEDICARE PPS GAGANDEEP GUTIÉRREZ [id number] Advance Directives Documents on File Type Date Recorded Patient [employer] B[employer] Expl anation Healthcare Directive 04/01/2022 022 * [...] 6:43 PM 06/10/2011 6:41 PM Care Teams Sql Database Developer Relationship Specialty Start Date End Date Nivia Bruno MD [address] [place] [address] PCP - General Family Practice 07/01/19 Judie Carreno, Zoraida [address] [place] [address] [place] [id number] Pharmacist Medication Management Pharmacology 05/28/23 05/28/25
--- OUTSIDE RECORDS SUMMARY | 2024-10-10 12:30 | XMS_ITS | Clinical Summary ---
Author Organization [facility] Address [address] [place] [address] , [address] [place] [address] Phone Care Team Providers Care Stand In Name Role Phone [facility] [place] Unavailable Unava ilable Conditions or Problems Problem Name Problem Code Onset Date Status Entry Date Provider Comment Standard Description Annotate Myalgia of auxiliary muscles, head and neck 14293299 (SNOMED CT) 06/27 Active 06/27 Jina Johnson DNP,TONGUE STITCHER,[place] P Muscle pain Hemifacial spasm R 83369852 (SNOMED CT) 08/10 Active 08/10 Norberto Miller Jr, MD Hemifacial spasm Facial pain, atypical 02280357 (SNOMED CT) 08/10 Active 08/10 Norberto Miller Jr, MD Atypical facial pain 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), right 36016147 (SNOMED CT) 08/10 Active 08/10 Norberto Miller Jr, MD Arthritis of temporomandibul ar joint Cervical spasm 62002898 (SNOMED CT) 08/10 Active 08/10 Norberto Miller Jr, MD Muscle spasm of head and/or neck Juvenile rheumatoid arthritis 871073074 (SNOMED CT) 08/10 Active 08/10 Norberto Miller [...] limb movement disorder (moderate; 15/hr; most w/arousals) 449217436 (SNOMED CT) 11/01 Inactive 11/03 Norberto Miller Jr, MD Periodic limb movement disorder 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 (ICD-10-CM ) 09/20 Active 09/20 Norberto Miller Jr, MD Sleep disorder, unspecified Fatigue 11938827 (SNOMED CT) 09/20 Active 09/20 Norberto Miller Jr, MD Fatigue Paresthesia of bilateral legs 43050296 (SNOMED CT) 11/10 Active 11/10 Regan Santiago MD Paresthesia Anxiety, generalized F41.1 (ICD-10-CM ) 01/17 Active 01/17 Jesika Diallo PhD Generalized anxiety disorder Restless leg syndrome (PLMS 15/hr) G25.81 (ICD-10-CM ) 09/04 Active 09/04 Norberto Miller Jr, MD Restless legs syndrome Sleep disturbance , nos 19095804 (SNOMED CT) 09/04 Inactive 09/04 Norberto Miller Jr, MD Dyssomnia 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 (ICD-10-CM ) 09/04 Active 09/04 Norberto Miller Jr, MD Insomnia, unspecified Snoring 05002678 (SNOMED CT) 09/04 Active 09/04 Norberto Miller Jr, MD Snoring Restless leg syndrome 05397339 (SNOMED CT) 09/04 Inactive 09/04 Norberto Miller Jr, MD Restless legs 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 (ICD-10-CM ) 09/04 Active 09/04 Norberto Miller Jr, MD Abnormal level of blood mineral traumatic brain injury, initial encounter S06.309A (ICD-10-CM ) 08/02 Active 08/07 Zuleyma Ly 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, initial encounter Hypothyroid ism 94249562 (SNOMED CT) 08/02 Active 08/07 Zuleyma Ly Hypothyroidism depression 54242819 (SNOMED CT) 08/02 Active 08/07 Zuleyma Ly Depressive disorder Memory problems R41.3 (ICD-10-CM ) 08/02 Active 08/07 Zuleyma Ly Other amnesia Medications Medication Instructions Start Date Stop Date Generic Name NDC Provider ESCITALOPRAM OXALATE 20 MG TABS 12/10 escitalopram oxalate 96777046609 Norberto Miller Jr, MD LORAZEPAM 0.5 MG TABS 12/10 lorazepam 55901984864 Norberto Miller Jr, MD TRETINOIN 0.025 % CREA 12/10 tretinoin 46584116175 Norberto Miller Jr, MD MELATONIN 10 MG TABS 1 by mouth every night 12/10 melatonin-lemon balm leaf extr 33270768832 Norberto Miller Jr, MD TRIAMCINOLONE ACETONIDE 0.1 % CREA 12/10 triamcinolone acetonide 46480621641 Norberto Miller Jr, MD SUMATRIPTAN SUCCINATE 25 MG TABS 12/10 sumatriptan succinate 34778485167 Norberto Miller Jr, MD BUSPIRONE HCL 15 MG TABS 12/10 buspirone 06823047374 Norberto Miller Jr, MD DIPHENOXYLATE-ATRO PINE 2.5-0.025 MG TABS 12/10 diphenoxylate-atr opine 96410434632 Norberto Miller Jr, MD TYRVAYA 0.03 MG/ACT SOLN 12/10 varenicline 23339425814 Norberto Miller Jr, MD ESCITALOPRAM OXALATE 10 MG TABS 12/10 escitalopram oxalate 94016969346 Norberto Miller Jr, MD LIDOCAINE VISCOUS HCL 2 % SOLN 12/10 lidocaine hcl 78969724047 Norberto Miller Jr, MD LIOTHYRONINE SODIUM 5 MCG TABS 12/10 liothyronine 12642060278 Norberto Miller Jr, MD HYDROMORPHONE HCL 2 MG TABS 12/10 hydromorphone 89866770463 Norberto Miller Jr, MD ROPINIROLE HCL 0.25 MG TABS 12/10 ropinirole 17507124108 Norberto Miller Jr, MD POLYMYXIN B-TRIMETHOPRIM 12611-6.1 UNIT/ML-% SOLN 12/10 polymyxin b sulf-trimethoprim 34081142466 Norberto Miller Jr, MD YUVAFEM 10 MCG TABS 12/10 estradiol 41461362258 Norberto Miller Jr, MD SULFAMETHOXAZOLE-T RIMETHOPRIM 800-160 MG TABS 12/10 sulfamethoxazole- trimethoprim 08276215237 Norberto Miller Jr, MD VALACYCLOVIR HCL 1 GM TABS 12/10 valacyclovir 66803260885 Norberto Miller Jr, MD LIDOCAINE 5 % PTCH lidocaine 18671861980 Norberto Miller Jr, MD TRIAMCINOLONE ACETONIDE 0.1 % PSTE triamcinolone acetonide 43942189153 Norberto Miller Jr, MD PROGESTERONE 100 MG CAPS TAKE ONE CAPSULE BY MOUTH AT BEDTIME* progesterone micronized 96615494180 Norberto Miller Jr, MD ESTRADIOL 1 MG TABS estradiol 85986201546 Norberto Miller Jr, MD DIPHENOXYLATE-ATRO PINE 2.5-0.025 MG TABS diphenoxylate-at r opine 86650576320 Norberto Miller Jr, MD LIOTHYRONINE SODIUM 5 MCG TABS liothyronine 70976857326 Norberto Miller Jr, MD MELOXICAM 15 MG TABS meloxicam 58847033160 Norberto Miller Jr, MD ONDANSETRON HCL 4 MG TABS ondansetron hcl 04167705157 Norberto Miller Jr, MD AMOXICILLIN 500 MG CAPS amoxicillin 70274734054 Norberto Miller Jr, MD HYDROMORPHONE HCL 2 MG TABS hydromorphone 67398042976 Norberto Miller Jr, MD YUVAFEM 10 MCG TABS estradiol 52461921828 Norberto Miller Jr, MD VILAZODONE HCL 20 MG TABS vilazodone 89990858965 Norberto Miller Jr, MD VILAZODONE HCL 10 MG TABS vilazodone 75875088189 Norberto Miller Jr, MD ESCITALOPRAM OXALATE 20 MG TABS escitalopram oxalate 52811964188 Norberto Miller Jr, MD BUSPIRONE HCL 15 MG TABS buspirone 46165858959 Norberto Miller Jr, MD TRAZODONE HCL 50 MG TABS trazodone 54551370268 Norberto Miller Jr, MD PREDNISONE 20 MG TABS prednisone 14267167812 Norberto Miller Jr, MD PROPRANOLOL HCL 20 MG TABS 08/10 propranolol 11455122584 Norberto Miller Jr, MD HYDROMORPHONE HCL 2 MG TABS 12/10 hydromorphone 57476517221 Norberto Miller Jr, MD ROPINIROLE HCL 0.25 MG TABS 12/10 ropinirole 42427355340 Norberto Miller Jr, MD ESCITALOPRAM OXALATE 20 MG TABS 12/10 escitalopram oxalate 22603678986 Norberto Miller Jr, MD TYRVAYA 0.03 MG/ACT SOLN 12/10 varenicline 38422401516 Norberto Miller Jr, MD YUVAFEM 10 MCG TABS 12/10 estradiol 21736750520 Norberto Miller Jr, MD CYCLOBENZAPRINE HCL 5 MG TABS Take 1/2-1 tablet by mouth every night at bedtime as directed start with 1/2 tab cyclobenzaprine 93112327315 Kelle Lima PA-C ESCITALOPRAM OXALATE 10 MG TABS 12/23 escitalopram oxalate 23210772268 Norberto Miller Jr, MD DULOXETINE HCL 30 MG CPEP 1 every morning 12/23 duloxetine 11775243008 Norberto Miller Jr, MD BUSPIRONE HCL 5 MG TABS 1 twice a day 12/23 buspirone 22539588411 Norberto Miller Jr, MD MELATONIN 10 MG TABS 1 by mouth every night 12/10 melatonin-lemon balm leaf extr 26049261820 Norberto Miller Jr, MD TRAZODONE HCL 50 MG TABS Prescribed by Family 12/23 TRAZODONE HCL Norberto Miller Jr, MD BUSPIRONE HCL 15 MG TABS 12/10 buspirone 15718946047 Norberto Miller Jr, MD ESCITALOPRAM OXALATE 10 MG TABS 12/10 escitalopram oxalate 76473049191 Norberto Miller Jr, MD LORAZEPAM 0.5 MG TABS 12/10 lorazepam 88652583689 Norberto Miller Jr, MD TRIAMCINOLONE ACETONIDE 0.1 % CREA 12/10 triamcinolone acetonide 69994169669 Norberto Miller Jr, MD SULFAMETHOXAZOLE-T RIMETHOPRIM 800-160 MG TABS 12/10 sulfamethoxazole- trimethoprim 22691536042 Norberto Miller Jr, MD PROPRANOLOL HCL 20 MG TABS 08/10 propranolol 93408861438 Norberto Miller Jr, MD LIOTHYRONINE SODIUM 5 MCG TABS 12/10 liothyronine 59563305653 Norberto Miller Jr, MD POLYMYXIN B-TRIMETHOPRIM 62211-8.1 UNIT/ML-% SOLN 09/17 polymyxin b sulf-trimethoprim 67543241171 Norberto Miller Jr, MD DIPHENOXYLATE-ATRO PINE 2.5-0.025 MG TABS 08/19 diphenoxylate-atr opine 20575936207 Norberto Miller Jr, MD LIDOCAINE VISCOUS HCL 2 % SOLN 12/10 lidocaine hcl 10432027527 Norberto Miller Jr, MD TRETINOIN 0.025 % CREA 12/10 tretinoin 50353012094 Norberto Miller Jr, MD SUMATRIPTAN SUCCINATE 25 MG TABS 12/10 sumatriptan succinate 27735064694 Norberto Miller Jr, MD VALACYCLOVIR HCL 1 GM TABS 12/10 valacyclovir 44284072072 Norberto Miller Jr, MD ESCITALOPRAM OXALATE 10 MG TABS 12/23 escitalopram oxalate 72922942685 Belle Jimenez PA-C MELATONIN 10 MG TABS 1 orally QHS 12/23 MELATONIN 29427192840 Norberto Miller Jr, MD CLOBETASOL PROPIONATE 0.05 % CREA Prescribed by Family SALAZAR 09/20 CLOBETASOL PROPIONATE 51447972940 Norberto Miller Jr, MD BETAMETHASONE VALERATE 0.1 % LOTN Prescribed by Family SALAZAR 09/20 BETAMETHASONE VALERATE 63741928783 Norberto Miller Jr, MD CEFUROXIME AXETIL 500 MG TABS Prescribed by Family SALAZAR 09/20 CEFUROXIME AXETIL 17024721284 Norberto Miller Jr, MD ARMOUR THYROID 30 MG TABS Prescribed by Family SALAZAR 09/20 THYROID 57582552482 Norberto Miller Jr, MD SERTRALINE HCL 100 MG TABS Prescribed by Family SALAZAR 09/20 SERTRALINE HCL 90412361969 Norberto Miller Jr, MD WELLBUTRIN XL 150 MG [id number] Prescribed by Family SALAZAR 09/20 BUPROPION HCL 87046421892 Norberto Miller Jr, MD DULOXETINE HCL 30 MG CPEP 1 QAM 12/23 DULOXETINE HCL 31714935293 Norberto Miller Jr, MD BUSPIRONE HCL 5 MG TABS 1 BID 12/23 BUSPIRONE HCL 50685977197 Norberto Miller Jr, MD GABAPENTIN 300 MG CAPS Prescribed by Family SALAZAR GABAPENTIN 28400850306 Norberto Miller Jr, MD CEFUROXIME AXETIL 500 MG TABS Prescribed by Family SALAZAR 08/24 CEFUROXIME AXETIL 19670147741 Zuleyma Cameron ARMOUR THYROID 30 MG TABS Prescribed by Family SALAZAR 09/20 THYROID 59479589935 Zuleyma Cameron GABAPENTIN 300 MG CAPS Prescribed by Family SALAZAR 08/24 GABAPENTIN 03840260354 Zuleyma Cameron SERTRALINE HCL 100 MG TABS Prescribed by Family SALAZAR 09/20 SERTRALINE HCL 35032482888 Zuleyma Cameron WELLBUTRIN XL 150 MG [id number] Prescribed by Family SALAZAR 09/20 BUPROPION HCL 08093211892 Zuleyma Cameron TRAZODONE HCL 50 MG TABS Prescribed by Family SALAZAR 12/23 TRAZODONE HCL 58309280380 Zuleyma Cameron BETAMETHASONE VALERATE 0.1 % LOTN Prescribed by Family SALAZAR 08/24 BETAMETHASONE VALERATE 84109666300 Zuleyma Ly CLOBETASOL PROPIONATE 0.05 % CREA Prescribed by Family SALAZAR 08/24 CLOBETASOL PROPIONATE 47331194420 Zuleyma Cameron Medications Administered No information available. [...] Appointment 11:30 AM Kelle soto PA-C, [address] [facility], [address], [place], [address], Referral Dental Device Re ferral Pending order [...] Procedures Code Procedure Name Date Entry Date 04682/47564/87275&53 Occipital Nerve Blo ck and Trigger Point Injections CPT-96351 Trigger point inj (3+ musc) CPT-J1100 Dexamethasone -- 10 mg 04/26 ORDERS Follow up [facility] telemedicine 2 ORDERS Dental Device Referral 12/10 ORDERS Sleep Hygiene Tips Handout 2 024 ORDERS Insomnia Handout ORDERS Patient Instructions ORDERS Patient Instructions ORDERS Patient Instructions [facility]-[id number] Other Referral ORDERS Instructions for Staff 09/02 ORDERS Follow up Sleep [facility] telemedicine ORDERS Patient Instructions CPT-87003 Trigger point inj (3+ musc) CPT-J1100 Dexamethasone -- 10 mg 08/10 [id number] Other Radiology 14754/50548/45775&53 Occipital Nerve Blo ck and Trigger Point Injections ORDERS Follow up Extended telemedicine 1 ORDERS Patient Instructions [facility]-[id number] Other Referral [facility]-[id number] Psychiatry Referral ORDERS Pain Clinic ORDERS Insomnia Handout ORDERS Sleep Hygiene Tips Handout 2 ORDERS Patient Instructions CPT-79723 PSG, 4+ parameters w / tech - 6yrs or older (90525) ORDERS Vitamin B12 ORDERS Vitamin D 25 Hydroxy ORDERS Patient Instructions [facility]-[id number] Other Referral SCT-[id number] Psychology Referral ORDERS Instructions for Staff 11/28 ORDERS Lyme Total Ab w/Refl ex (reflex to Western Blot) ORDERS TSH ORDERS 2 weeks Actigraphy W atch w/ Sleep Journals (Call Sleep Lab) ORDERS Ferritin Serum ORDERS Overnight PSG - Sleep Study Overnight 07/17/19 ORDERS Telemedicine Follow up 11/08 ORDERS Ferritin Serum [facility]-[id number] Documentation of current medicatio ns ORDERS Other Handout ORDERS Patient Instructions ORDERS Patient Instructions ORDERS Instructions for Staff 11/08 ORDERS Telemedicine Follow up 09/20 CPT-58690 PSG, 4+ parameters w / tech - 6yrs or older (37324) ORDERS Sleep Study - [facility] 2 [facility]-[id number] Documentation of current medicatio ns ORDERS T4 SCT-[id number] Other Referral ORDERS Lyme Total Ab w/Refl [...] TSH ORDERS Vitamin B12 ORDERS T3 Free CPT-57899 Nerve Conduction 7-8 studies CPT-16871 EMG with NCS (5+ muscles) - 1 limb 11/10 SCT-[id number] Documentation of current medicatio ns ORDERS Ferritin Serum ORDERS Patient Instructions ORDERS Other Test ORDERS Follow up ORDERS Vitamin B12 CPT-19382 Neuropsych assmnt w/ prov 4 hr CPT-6774770 Neuropsych assmnt w/ tech 3 hr ORDERS Follow up ORDERS Patient Instructions SCT-[id number] Documentation of current medicatio ns ORDERS Follow up ORDERS Patient Instructions SCT-[id number] Other Test CPT-77428 PSG, 4+ parameters w / tech - 6yrs or older (25374) CPT-13250 MRI Brain W/O SCT-[id number] Documentation of current medicatio ns SCT-760730229 Other Test SCT-[id number] Documentation of current medicatio ns ORDERS Ferritin Serum SCT-317078726 Other Referral ORDERS Follow up SCT-982056806 Other Test SCT-390044742 Other Referral SCT-[id number] Documentation of current medicatio ns Vital Signs [...]
[2024-10-10 12:31] LABS: Chloride* 104 mmol/L (96-114); Sodium* 139 mmol/L (135-149)
[2024-10-10 12:34] LABS: Blood Urea Nitrogen* 23 mg/dL (7-30); Creatinine* 0.9 mg/dL (0.5-1.5); Est. Creatinine Clearance* 58.61; Estimated Glomerular Filt Rate 71 ml/min
[2024-10-10 12:35] LABS: Anion Gap 10 mEq/L (7-15); Calcium* 9.3 mg/dL (8.4-10.6); Carbon Dioxide* 25 mmol/L (20-32); Glucose* 128 mg/dL (60-115)
[2024-10-10 13:58] VITALS: BP 104/54; PULSE 78; O2SAT 97
[2024-10-10 14:13] LABS: Appearance Urine Clear (Clear); Bilirubin Urine Negative (Negative); Blood Urine Negative (Negative); Color Urine Yellow (Yellow); Glucose Urine Negative (Negative); Ketones Urine Negative (Negative); Leukocyte Esterase Urine Negative (Negative); Nitrite Urine Negative (Negative); Protein Urine Negative (Negative); Urobilinogen Urine 0.2 (0.2-1.0); pH Urine 6.5 (5.0-8.5)
[2024-10-10 14:23] LABS: Amorphous Sediment Urine Few; RBC Urine 0-2 (0-2); Squamous Epithelial Cell Urine Few (None-Few); WBC Urine 0-2 (0-5)
[2024-10-10] MEDS: KETOROLAC 30 MG/ML inj 15 MG IVP (14:49)
--- OUTSIDE RECORDS SUMMARY | 2024-10-10 19:48 | XMS_ITS | Clinical Summary ---
Author Organization [facility] Address [address] [place] [address] , [address] [place] [address] Phone Care Team Providers Care Environmental Department Manager Name Role Phone [facility] Unavailable Unava ilable Conditions or Problems Problem Name Problem Code Onset Date Status Entry Date Provider Comment Standard Description Annotate Myalgia of auxiliary muscles, head and neck 23242154 (SNOMED CT) 06/27 Active 06/27 Jina Johnson DNP,[employer],[place] P Muscle pain Hemifacial spasm R 67413661 (SNOMED CT) 08/10 Active 08/10 Norberto Miller Jr, MD Hemifacial spasm Facial pain, atypical 44036508 (SNOMED CT) 08/10 Active 08/10 Norberto Miller Jr, MD Atypical facial pain 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), right 00523520 (SNOMED CT) 08/10 Active 08/10 Norberto Miller Jr, MD Arthritis of temporomandibul ar joint Cervical spasm 50480377 (SNOMED CT) 08/10 Active 08/10 Norberto Miller Jr, MD Muscle spasm of head and/or neck Juvenile rheumatoid arthritis 671592758 (SNOMED CT) 08/10 Active 08/10 Norberto Miller [...] limb movement disorder (moderate; 15/hr; most w/arousals) 330360430 (SNOMED CT) 11/01 Inactive 11/03 Norberto Miller Jr, MD Periodic limb movement disorder 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 (ICD-10-CM ) 09/20 Active 09/20 Norberto Miller Jr, MD Sleep disorder, unspecified Fatigue 93280636 (SNOMED CT) 09/20 Active 09/20 Norberto Miller Jr, MD Fatigue Paresthesia of bilateral legs 72408897 (SNOMED CT) 11/10 Active 11/10 Regan Santiago MD Paresthesia Anxiety, generalized F41.1 (ICD-10-CM ) 01/17 Active 01/17 Jesika Diallo PhD Generalized anxiety disorder Restless leg syndrome (PLMS 15/hr) G25.81 (ICD-10-CM ) 09/04 Active 09/04 Norberto Miller Jr, MD Restless legs syndrome Sleep disturbance , nos 85914930 (SNOMED CT) 09/04 Inactive 09/04 Norberto Miller Jr, MD Dyssomnia 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 (ICD-10-CM ) 09/04 Active 09/04 Norberto Miller Jr, MD Insomnia, unspecified Snoring 63398003 (SNOMED CT) 09/04 Active 09/04 Norberto Miller Jr, MD Snoring Restless leg syndrome 48425567 (SNOMED CT) 09/04 Inactive 09/04 Norberto Miller Jr, MD Restless legs 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 (ICD-10-CM ) 09/04 Active 09/04 Norberto Miller Jr, MD Abnormal level of blood mineral traumatic brain injury, initial encounter S06.309A (ICD-10-CM ) 08/02 Active 08/07 Zuleyma Ly 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, initial encounter Hypothyroid ism 40607687 (SNOMED CT) 08/02 Active 08/07 Zuleyma Ly Hypothyroidism depression 73156744 (SNOMED CT) 08/02 Active 08/07 Zuleyma Ly Depressive disorder Memory problems R41.3 (ICD-10-CM ) 08/02 Active 08/07 Zuleyma Ly Other amnesia Medications Medication Instructions Start Date Stop Date Generic Name NDC Provider ESCITALOPRAM OXALATE 20 MG TABS 12/10 escitalopram oxalate 11668274381 Norberto Miller Jr, MD LORAZEPAM 0.5 MG TABS 12/10 lorazepam 48859235282 Norberto Miller Jr, MD TRETINOIN 0.025 % CREA 12/10 tretinoin 94164189008 Norberto Miller Jr, MD MELATONIN 10 MG TABS 1 by mouth every night 12/10 melatonin-lemon balm leaf extr 98542209178 Norberto Miller Jr, MD TRIAMCINOLONE ACETONIDE 0.1 % CREA 12/10 triamcinolone acetonide 62898302991 Norberto Miller Jr, MD SUMATRIPTAN SUCCINATE 25 MG TABS 12/10 sumatriptan succinate 19083554643 Norberto Miller Jr, MD BUSPIRONE HCL 15 MG TABS 12/10 buspirone 34334881381 Norberto Miller Jr, MD DIPHENOXYLATE-ATRO PINE 2.5-0.025 MG TABS 12/10 diphenoxylate-atr opine 14972018910 Norberto Miller Jr, MD TYRVAYA 0.03 MG/ACT SOLN 12/10 varenicline 45004906485 Norberto Miller Jr, MD ESCITALOPRAM OXALATE 10 MG TABS 12/10 escitalopram oxalate 50729104678 Norberto Miller Jr, MD LIDOCAINE VISCOUS HCL 2 % SOLN 12/10 lidocaine hcl 12065086030 Norberto Miller Jr, MD LIOTHYRONINE SODIUM 5 MCG TABS 12/10 liothyronine 34501083776 Norberto Miller Jr, MD HYDROMORPHONE HCL 2 MG TABS 12/10 hydromorphone 99122828310 Norberto Miller Jr, MD ROPINIROLE HCL 0.25 MG TABS 12/10 ropinirole 72624459037 Norberto Miller Jr, MD POLYMYXIN B-TRIMETHOPRIM 38702-8.1 UNIT/ML-% SOLN 12/10 polymyxin b sulf-trimethoprim 79618303344 Norberto Miller Jr, MD YUVAFEM 10 MCG TABS 12/10 estradiol 96760073487 Norberto Miller Jr, MD SULFAMETHOXAZOLE-T RIMETHOPRIM 800-160 MG TABS 12/10 sulfamethoxazole- trimethoprim 76009284742 Norberto Miller Jr, MD VALACYCLOVIR HCL 1 GM TABS 12/10 valacyclovir 71153360498 Norberto Miller Jr, MD LIDOCAINE 5 % PTCH lidocaine 28560862555 Norberto Miller Jr, MD TRIAMCINOLONE ACETONIDE 0.1 % PSTE triamcinolone acetonide 45337937800 Norberto Miller Jr, MD PROGESTERONE 100 MG CAPS TAKE ONE CAPSULE BY MOUTH AT BEDTIME* progesterone micronized 92723112908 Norberto Miller Jr, MD ESTRADIOL 1 MG TABS estradiol 98082477786 Norberto Miller Jr, MD DIPHENOXYLATE-ATRO PINE 2.5-0.025 MG TABS diphenoxylate-at r opine 78794769100 Norberto Miller Jr, MD LIOTHYRONINE SODIUM 5 MCG TABS liothyronine 42268191993 Norberto Miller Jr, MD MELOXICAM 15 MG TABS meloxicam 75068894540 Norberto Miller Jr, MD ONDANSETRON HCL 4 MG TABS ondansetron hcl 49768244508 Norberto Miller Jr, MD AMOXICILLIN 500 MG CAPS amoxicillin 75861372253 Norberto Miller Jr, MD HYDROMORPHONE HCL 2 MG TABS hydromorphone 91398085077 Norberto Miller Jr, MD YUVAFEM 10 MCG TABS estradiol 34731446565 Norberto Miller Jr, MD VILAZODONE HCL 20 MG TABS vilazodone 45658690702 Norberto Miller Jr, MD VILAZODONE HCL 10 MG TABS vilazodone 04417652352 Norberto Miller Jr, MD ESCITALOPRAM OXALATE 20 MG TABS escitalopram oxalate 59320568688 Norberto Miller Jr, MD BUSPIRONE HCL 15 MG TABS buspirone 95370958455 Norberto Miller Jr, MD TRAZODONE HCL 50 MG TABS trazodone 31935197593 Norberto Miller Jr, MD PREDNISONE 20 MG TABS prednisone 47034728078 Norberto Miller Jr, MD PROPRANOLOL HCL 20 MG TABS 08/10 propranolol 96381129841 Norberto Miller Jr, MD HYDROMORPHONE HCL 2 MG TABS 12/10 hydromorphone 00060773222 Norberto Miller Jr, MD ROPINIROLE HCL 0.25 MG TABS 12/10 ropinirole 22565585576 Norberto Miller Jr, MD ESCITALOPRAM OXALATE 20 MG TABS 12/10 escitalopram oxalate 60895575458 Norberto Miller Jr, MD TYRVAYA 0.03 MG/ACT SOLN 12/10 varenicline 35425540910 Norberto Miller Jr, MD YUVAFEM 10 MCG TABS 12/10 estradiol 43589274709 Norberto Miller Jr, MD CYCLOBENZAPRINE HCL 5 MG TABS Take 1/2-1 tablet by mouth every night at bedtime as directed start with 1/2 tab cyclobenzaprine 99723025689 Kelle Lima PA-C ESCITALOPRAM OXALATE 10 MG TABS 12/23 escitalopram oxalate 50432713551 Norberto Miller Jr, MD DULOXETINE HCL 30 MG CPEP 1 every morning 12/23 duloxetine 06624187162 Norberto Miller Jr, MD BUSPIRONE HCL 5 MG TABS 1 twice a day 12/23 buspirone 43367180574 Norberto Miller Jr, MD MELATONIN 10 MG TABS 1 by mouth every night 12/10 melatonin-lemon balm leaf extr 39631215975 Norberto Miller Jr, MD TRAZODONE HCL 50 MG TABS Prescribed by Family 12/23 TRAZODONE HCL Norberto Miller Jr, MD BUSPIRONE HCL 15 MG TABS 12/10 buspirone 01963060503 Norberto Miller Jr, MD ESCITALOPRAM OXALATE 10 MG TABS 12/10 escitalopram oxalate 17931005854 Norberto Miller Jr, MD LORAZEPAM 0.5 MG TABS 12/10 lorazepam 46443201403 Norberto Miller Jr, MD TRIAMCINOLONE ACETONIDE 0.1 % CREA 12/10 triamcinolone acetonide 91651409686 Norberto Miller Jr, MD SULFAMETHOXAZOLE-T RIMETHOPRIM 800-160 MG TABS 12/10 sulfamethoxazole- trimethoprim 88172037840 Norberto Miller Jr, MD PROPRANOLOL HCL 20 MG TABS 08/10 propranolol 09780849865 Norberto Miller Jr, MD LIOTHYRONINE SODIUM 5 MCG TABS 12/10 liothyronine 06905742585 Norberto Miller Jr, MD POLYMYXIN B-TRIMETHOPRIM 62172-6.1 UNIT/ML-% SOLN 09/17 polymyxin b sulf-trimethoprim 91802904435 Norberto Miller Jr, MD DIPHENOXYLATE-ATRO PINE 2.5-0.025 MG TABS 08/19 diphenoxylate-atr opine 57962795562 Norberto Miller Jr, MD LIDOCAINE VISCOUS HCL 2 % SOLN 12/10 lidocaine hcl 70160398861 Norberto Miller Jr, MD TRETINOIN 0.025 % CREA 12/10 tretinoin 54613211140 Norberto Miller Jr, MD SUMATRIPTAN SUCCINATE 25 MG TABS 12/10 sumatriptan succinate 98176334451 Norberto Miller Jr, MD VALACYCLOVIR HCL 1 GM TABS 12/10 valacyclovir 42243731222 Norberto Miller Jr, MD ESCITALOPRAM OXALATE 10 MG TABS 12/23 escitalopram oxalate 87893717668 Belle Jimenez PA-C MELATONIN 10 MG TABS 1 orally QHS 12/23 MELATONIN 83890395355 Norberto Miller Jr, MD CLOBETASOL PROPIONATE 0.05 % CREA Prescribed by Family SALAZAR 09/20 CLOBETASOL PROPIONATE 71817744392 Norberto Miller Jr, MD BETAMETHASONE VALERATE 0.1 % LOTN Prescribed by Family SALAZAR 09/20 BETAMETHASONE VALERATE 76033473384 Norberto Miller Jr, MD CEFUROXIME AXETIL 500 MG TABS Prescribed by Family SALAZAR 09/20 CEFUROXIME AXETIL 05046348523 Norberto Miller Jr, MD ARMOUR THYROID 30 MG TABS Prescribed by Family SALAZAR 09/20 THYROID 04330884087 Norberto Miller Jr, MD SERTRALINE HCL 100 MG TABS Prescribed by Family SALAZAR 09/20 SERTRALINE HCL 61560820287 Norberto Miller Jr, MD WELLBUTRIN XL 150 MG [id number] Prescribed by Family SALAZAR 09/20 BUPROPION HCL 96175619259 Norberto Miller Jr, MD DULOXETINE HCL 30 MG CPEP 1 QAM 12/23 DULOXETINE HCL 12473953906 Norberto Miller Jr, MD BUSPIRONE HCL 5 MG TABS 1 BID 12/23 BUSPIRONE HCL 95956961443 Norberto Miller Jr, MD GABAPENTIN 300 MG CAPS Prescribed by Family SALAZAR GABAPENTIN 85723217945 Norberto Miller Jr, MD CEFUROXIME AXETIL 500 MG TABS Prescribed by Family SALAZAR 08/24 CEFUROXIME AXETIL 31025785149 Zuleyma Cameron ARMOUR THYROID 30 MG TABS Prescribed by Family SALAZAR 09/20 THYROID 03388154325 Zuleyma Cameron GABAPENTIN 300 MG CAPS Prescribed by Family SALAZAR 08/24 GABAPENTIN 41526160793 Zuleyma Cameron SERTRALINE HCL 100 MG TABS Prescribed by Family SALAZAR 09/20 SERTRALINE HCL 04374933471 Zuleyma Cameron WELLBUTRIN XL 150 MG [id number] Prescribed by Family SALAZAR 09/20 BUPROPION HCL 94706448031 Zuleyma Cameron TRAZODONE HCL 50 MG TABS Prescribed by Family SALAZAR 12/23 TRAZODONE HCL 45532118760 Zuleyma Cameron BETAMETHASONE VALERATE 0.1 % LOTN Prescribed by Family SALAZAR 08/24 BETAMETHASONE VALERATE 95888829142 Zuleyma Ly CLOBETASOL PROPIONATE 0.05 % CREA Prescribed by Family SALAZAR 08/24 CLOBETASOL PROPIONATE 92880818602 Zuleyma Cameron Medications Administered No information available. Allergies, Adverse Reactions, Alerts Allergy Name Reaction Description Start Date Severity Statu s Provider GABAPENTIN Worse restlessness; sweats Severe Active Norberto Mliler Jr, MD GOLD SALTS Critical Active Norberto [...] former smoker Tob acco smoking status Telemedicine: USSU FTEL FSLE; MRI review; cont cyclobenz; TMJ eval;Rheum p fax MEDS REVIEW Done Documenta tion of current medications (procedure) Plan of Care Type Date Detail Appointment 11:30 AM Kelle soto PA-C, [address] [facility], [address], [place], [address], Referral Dental Device Re ferral Pending order [...] Procedures Code Procedure Name Date Entry Date 56767/33684/85044&53 Occipital Nerve Blo ck and Trigger Point Injections CPT-07446 Trigger point inj (3+ musc) CPT-J1100 Dexamethasone -- 10 mg 04/26 ORDERS Follow up SUSU telemedicine 2 ORDERS Dental Device Referral 12/10 ORDERS Sleep Hygiene Tips Handout 2 024 ORDERS Insomnia Handout ORDERS Patient Instructions ORDERS Patient Instructions ORDERS Patient Instructions [facility]-[id number] Other Referral ORDERS Instructions for Staff 09/02 ORDERS Follow up Sleep [facility]USU telemedicine ORDERS Patient Instructions CPT-65125 Trigger point inj (3+ musc) CPT-J1100 Dexamethasone -- 10 mg 08/10 [id number] Other Radiology 47474/31897/74156&53 Occipital Nerve Blo ck and Trigger Point Injections ORDERS Follow up Extended telemedicine 1 ORDERS Patient Instructions [facility]-[id number] Other Referral SCT-[id number] Psychiatry Referral ORDERS Pain Clinic ORDERS Insomnia Handout ORDERS Sleep Hygiene Tips Handout 2 ORDERS Patient Instructions CPT-44392 PSG, 4+ parameters w / tech - 6yrs or older (36044) ORDERS Vitamin B12 ORDERS Vitamin D 25 Hydroxy ORDERS Patient Instructions [facility]CT-[id number] Other Referral SCT-[id number] Psychology Referral ORDERS Instructions for Staff 11/28 ORDERS Lyme Total Ab w/Refl ex (reflex to Western Blot) ORDERS TSH ORDERS 2 weeks Actigraphy W atch w/ Sleep Journals (Call Sleep Lab) ORDERS Ferritin Serum ORDERS Overnight PSG - Sleep Study Overnight 07/17/19 ORDERS Telemedicine Follow up 11/08 ORDERS Ferritin Serum [facility]-[id number] Documentation of current medicatio ns ORDERS Other Handout ORDERS Patient Instructions ORDERS Patient Instructions ORDERS Instructions for Staff 11/08 ORDERS Telemedicine Follow up 09/20 CPT-69828 PSG, 4+ parameters w / tech - 6yrs or older (51898) ORDERS Sleep Study - [facility] 2 SCT-[id number] Documentation of current medicatio ns ORDERS T4 SCT-[id number] Other Referral ORDERS Lyme Total Ab w/Refl [...] TSH ORDERS Vitamin B12 ORDERS T3 Free CPT-31862 Nerve Conduction 7-8 studies CPT-90526 EMG with NCS (5+ muscles) - 1 limb 11/10 SCT-[id number] Documentation of current medicatio ns ORDERS Ferritin Serum ORDERS Patient Instructions ORDERS Other Test ORDERS Follow up ORDERS Vitamin B12 CPT-04917 Neuropsych assmnt w/ prov 4 hr CPT-3927102 Neuropsych assmnt w/ tech 3 hr ORDERS Follow up ORDERS Patient Instructions SCT-[id number] Documentation of current medicatio ns ORDERS Follow up ORDERS Patient Instructions SCT-[id number] Other Test CPT-69053 PSG, 4+ parameters w / tech - 6yrs or older (23727) CPT-32872 MRI Brain W/O SCT-[id number] Documentation of current medicatio ns SCT-[id number] Other Test SCT-[id number] Documentation of current medicatio ns ORDERS Ferritin Serum SCT-[id number] Other Referral ORDERS Follow up SCT-403858072 Other Test SCT-371439392 Other Referral SCT-[id number] Documentation of current medicatio ns Vital Signs [...]
== END 2024-10-10 15:00 | disposition home or self-care (01) ==
PROVIDERS: Emergency Provider Emergency Medicine Emergency Medical Services; PCP Family Medicine
DX: R10.31 Right lower quadrant pain (principal)
CPT/HCPCS: 36415; 74177; 80048; 81001; 85025; 96374; 99284; J1885; Q9967

== ENCOUNTER 2025-01-02 15:20 | Outpatient (CLI) | payer MEDICARE, BC, SELFPAY | END 2025-01-02 15:21 | disposition home or self-care (01) | LOC: NFLDREF 01-04 17:49 | PROVIDERS: PCP Family Medicine; Referring Provider Family Medicine; Visit Provider Physician Assistant | DX: N30.00 Acute cystitis without hematuria (principal); B96.20 Unspecified Escherichia coli [E. coli] as the cause of diseases classified elsewhere | CPT/HCPCS: 87086 ==

== ENCOUNTER 2025-01-20 14:29 | Outpatient (CLI) | payer MEDICARE, BC, SELFPAY | END 2025-01-20 14:30 | disposition home or self-care (01) | LOC: AMB 01-21 11:47 | PROVIDERS: PCP Family Medicine; Visit Provider Emergency Medicine | DX: R07.89 Other chest pain (principal) | CPT/HCPCS: A0425; A0433 ==

== ENCOUNTER 2025-01-20 15:01 | Emergency (ER) | payer MEDICARE, BC, SELFPAY ==
[2025-01-20] VITALS (22 sets, daily range): BP systolic 115–132; BP diastolic 44–79; PULSE 68–86; RESP 12–23; TEMP 36.4; O2SAT 95–99; BMI 25.6
--- OUTSIDE RECORDS SUMMARY | 2025-01-20 15:04 | XMS_ITS | Clinical Summary ---
Author Organization [facility] Address [address] [place] [address] , [address] [place] [address] Phone Care Team Providers Care Inside Trucker Name Role Phone 7CareTeamCoordinator, 7CareTeamCoordinator Unava ilable Unavailable Conditions or Problems Problem Name Problem Code Onset Date Status Entry Date Provider Comment Standard Description Annotate Myalgia of auxiliary muscles, head and neck 90564261 (SNOMED CT) 06/27 Active 06/27 Jina Johnson DNP,[employer],[place] P Muscle pain Hemifacial spasm R 53870521 (SNOMED CT) 08/10 Active 08/10 Norberto Miller Jr, MD Hemifacial spasm Facial pain, atypical 89584872 (SNOMED CT) 08/10 Active 08/10 Norberto Miller Jr, MD Atypical facial pain 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), right 21673449 (SNOMED CT) 08/10 Active 08/10 Norberto Miller Jr, MD Arthritis of temporomandibul ar joint Cervical spasm 36927520 (SNOMED CT) 08/10 Active 08/10 Norberto Miller Jr, MD Muscle spasm of head and/or neck Juvenile rheumatoid arthritis 448619362 (SNOMED CT) 08/10 Active 08/10 Norberto Miller [...] limb movement disorder (moderate; 15/hr; most w/arousals) 167803212 (SNOMED CT) 11/01 Inactive 11/03 Norberto Miller Jr, MD Periodic limb movement disorder 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 (ICD-10-CM ) 09/20 Active 09/20 Norberto Miller Jr, MD Sleep disorder, unspecified Fatigue 46628067 (SNOMED CT) 09/20 Active 09/20 Norberto Miller Jr, MD Fatigue Paresthesia of bilateral legs 11448509 (SNOMED CT) 11/10 Active 11/10 Regan Santiago MD Paresthesia Anxiety, generalized F41.1 (ICD-10-CM ) 01/17 Active 01/17 Jesika Diallo PhD Generalized anxiety disorder Restless leg syndrome (PLMS 15/hr) G25.81 (ICD-10-CM ) 09/04 Active 09/04 Norberto Miller Jr, MD Restless legs syndrome Sleep disturbance , nos 20138040 (SNOMED CT) 09/04 Inactive 09/04 Norberto Miller Jr, MD Dyssomnia 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 (ICD-10-CM ) 09/04 Active 09/04 Norberto Miller Jr, MD Insomnia, unspecified Snoring 19408410 (SNOMED CT) 09/04 Active 09/04 Norberto Miller Jr, MD Snoring Restless leg syndrome 68179547 (SNOMED CT) 09/04 Inactive 09/04 Norberto Miller Jr, MD Restless legs syndrome 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 (ICD-10-CM ) 09/04 Active 09/04 Norberto Miller Jr, MD Abnormal level of blood mineral traumatic brain injury, initial encounter S06.309A (ICD-10-CM ) 08/02 Active 08/07 Zuleyma Ly 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, initial encounter Hypothyroid ism 27328250 (SNOMED CT) 08/02 Active 08/07 Zuleyma Ly Hypothyroidism depression 90840608 (SNOMED CT) 08/02 Active 08/07 Zuleyma Ly Depressive disorder Memory problems R41.3 (ICD-10-CM ) 08/02 Active 08/07 Zuleyma Ly Other amnesia Medications Medication Instructions Start Date Stop Date Generic Name NDC Provider CYCLOBENZAPRINE HCL 5 MG TABS Take 1/2-1 tablet by mouth every night at bedtime as directed start with 1/2 tab 11/09 cyclobenzaprine [id number] Isabel Purdy RN CYCLOBENZAPRINE HCL 5 MG TABS TAKE ONE-HALF TO ONE TABLET (2.5-5 MG) BY MOUTH EVERY NIGHT AT BEDTIME DIRECTED. START WITH ONE-HALF TABLET (2.5 MG). cyclobenzaprine 91657041382 Norberto Miller Jr, MD ESCITALOPRAM OXALATE 20 MG TABS 12/10 escitalopram oxalate 41394995770 Norberto Miller Jr, MD LORAZEPAM 0.5 MG TABS 12/10 lorazepam 92186106249 Norberto Miller Jr, MD TRETINOIN 0.025 % CREA 12/10 tretinoin 46427292536 Norberto Miller Jr, MD MELATONIN 10 MG TABS 1 by mouth every night 12/10 melatonin-lemon balm leaf extr 76079741450 Norberto Miller Jr, MD TRIAMCINOLONE ACETONIDE 0.1 % CREA 12/10 triamcinolone acetonide 55958949038 Norberto Miller Jr, MD SUMATRIPTAN SUCCINATE 25 MG TABS 12/10 sumatriptan succinate 12413932894 Norberto Miller Jr, MD BUSPIRONE HCL 15 MG TABS 12/10 buspirone 77162294634 Norberto Miller Jr, MD DIPHENOXYLATE-ATRO PINE 2.5-0.025 MG TABS 12/10 diphenoxylate-atr opine 26129867767 Norberto Miller Jr, MD TYRVAYA 0.03 MG/ACT SOLN 12/10 varenicline 23095366037 Norberto Miller Jr, MD ESCITALOPRAM OXALATE 10 MG TABS 12/10 escitalopram oxalate 32497068963 Norberto Miller Jr, MD LIDOCAINE VISCOUS HCL 2 % SOLN 12/10 lidocaine hcl 62977018762 Norberto Miller Jr, MD LIOTHYRONINE SODIUM 5 MCG TABS 12/10 liothyronine 13938242910 Norberto Miller Jr, MD HYDROMORPHONE HCL 2 MG TABS 12/10 hydromorphone 46028247325 Norberto Miller Jr, MD ROPINIROLE HCL 0.25 MG TABS 12/10 ropinirole 60156832902 Norberto Miller Jr, MD POLYMYXIN B-TRIMETHOPRIM 69653-2.1 UNIT/ML-% SOLN 12/10 polymyxin b sulf-trimethoprim 10275051050 Norberto Miller Jr, MD YUVAFEM 10 MCG TABS 12/10 estradiol 09020035077 Norberto Miller Jr, MD SULFAMETHOXAZOLE-T RIMETHOPRIM 800-160 MG TABS 12/10 sulfamethoxazole- trimethoprim 58213998269 Norberto Miller Jr, MD VALACYCLOVIR HCL 1 GM TABS 12/10 valacyclovir 55389417908 Norberto Miller Jr, MD LIDOCAINE 5 % PTCH lidocaine 14238762944 Norberto Miller Jr, MD TRIAMCINOLONE ACETONIDE 0.1 % PSTE triamcinolone acetonide 58433105804 Norberto Miller Jr, MD PROGESTERONE 100 MG CAPS TAKE ONE CAPSULE BY MOUTH AT BEDTIME* progesterone micronized 97927069247 Norberto Miller Jr, MD ESTRADIOL 1 MG TABS estradiol 84383491373 Norberto Miller Jr, MD DIPHENOXYLATE-ATRO PINE 2.5-0.025 MG TABS diphenoxylate-at r opine 99750450803 Norberto Miller Jr, MD LIOTHYRONINE SODIUM 5 MCG TABS liothyronine 30707951632 Norbreto Miller Jr, MD MELOXICAM 15 MG TABS meloxicam 64663376661 Norberto Miller Jr, MD ONDANSETRON HCL 4 MG TABS ondansetron hcl 36456914144 Norberto Miller Jr, MD AMOXICILLIN 500 MG CAPS amoxicillin 47844395001 Norberto Miller Jr, MD HYDROMORPHONE HCL 2 MG TABS hydromorphone 17930323511 oNrberto Miller Jr, MD YUVAFEM 10 MCG TABS estradiol 67196864661 Norberto Miller Jr, MD VILAZODONE HCL 20 MG TABS vilazodone 73157329990 Norberto Miller Jr, MD VILAZODONE HCL 10 MG TABS vilazodone 58480457733 Norberto Miller Jr, MD ESCITALOPRAM OXALATE 20 MG TABS escitalopram oxalate 98116013470 Norberto Miller Jr, MD BUSPIRONE HCL 15 MG TABS buspirone 41424212667 Norberto Miller Jr, MD TRAZODONE HCL 50 MG TABS trazodone 43224762468 Norberto Miller Jr, MD PREDNISONE 20 MG TABS prednisone 69878033271 Norberto Miller Jr, MD PROPRANOLOL HCL 20 MG TABS 08/10 propranolol 63761565658 Norberto Miller Jr, MD HYDROMORPHONE HCL 2 MG TABS 12/10 hydromorphone 33896241843 Norberto Miller Jr, MD ROPINIROLE HCL 0.25 MG TABS 11/19 ropinirole 50095464819 Norberto Miller Jr, MD ESCITALOPRAM OXALATE 20 MG TABS 12/10 escitalopram oxalate 93597730259 Norberto Miller Jr, MD TYRVAYA 0.03 MG/ACT SOLN 12/10 varenicline 15121141058 Norberto Miller Jr, MD YUVAFEM 10 MCG TABS 12/10 estradiol 85181762187 Norberto Miller Jr, MD CYCLOBENZAPRINE HCL 5 MG TABS Take 1/2-1 tablet by mouth every night at bedtime as directed start with 1/2 tab 11/19 cyclobenzaprine 17148744477 Kelle Janie YUEN ESCITALOPRAM OXALATE 10 MG TABS 12/23 escitalopram oxalate 27524117802 Norberto Miller Jr, MD DULOXETINE HCL 30 MG CPEP 1 every morning 12/23 duloxetine 93477104890 Norberto Miller Jr, MD BUSPIRONE HCL 5 MG TABS 1 twice a day 12/23 buspirone 01740400771 Norberto Miller Jr, MD MELATONIN 10 MG TABS 1 by mouth every night 12/10 melatonin-lemon balm leaf extr 40943582243 Norberto Miller Jr, MD TRAZODONE HCL 50 MG TABS Prescribed by Family 12/23 TRAZODONE HCL Norberto Miller Jr, MD BUSPIRONE HCL 15 MG TABS 12/10 buspirone 41548485582 Norberto Miller Jr, MD ESCITALOPRAM OXALATE 10 MG TABS 12/10 escitalopram oxalate 15668512674 Norberto Miller Jr, MD LORAZEPAM 0.5 MG TABS 12/10 lorazepam 74876196426 Norberto Miller Jr, MD TRIAMCINOLONE ACETONIDE 0.1 % CREA 12/10 triamcinolone acetonide 88596123558 Norberto Miller Jr, MD SULFAMETHOXAZOLE-T RIMETHOPRIM 800-160 MG TABS 12/10 sulfamethoxazole- trimethoprim 80872385178 Norberto Miller Jr, MD PROPRANOLOL HCL 20 MG TABS 11/19 propranolol 38920805371 Norberto Miller Jr, MD LIOTHYRONINE SODIUM 5 MCG TABS 11/19 liothyronine 55322954917 Norebrto Miller Jr, MD POLYMYXIN B-TRIMETHOPRIM 47517-2.1 UNIT/ML-% SOLN 09/17 polymyxin b sulf-trimethoprim 37605294669 Norberto Miller Jr, MD DIPHENOXYLATE-ATRO PINE 2.5-0.025 MG TABS 11/19 diphenoxylate-atr opine 51349240571 Norberto Miller Jr, MD LIDOCAINE VISCOUS HCL 2 % SOLN 12/10 lidocaine hcl 79887014804 Norberto Miller Jr, MD TRETINOIN 0.025 % CREA 11/19 tretinoin 33411500862 Norberto Miller Jr, MD SUMATRIPTAN SUCCINATE 25 MG TABS 12/10 sumatriptan succinate 16534449621 Norberto Miller Jr, MD VALACYCLOVIR HCL 1 GM TABS 12/10 valacyclovir 28712786647 Norberto Miller Jr, MD ESCITALOPRAM OXALATE 10 MG TABS 12/23 escitalopram oxalate 12217564485 Belle Jimenez PA-C MELATONIN 10 MG TABS 1 orally QHS 12/23 MELATONIN 49094947114 Norberto Miller Jr, MD CLOBETASOL PROPIONATE 0.05 % CREA Prescribed by Family SALAZAR 09/20 CLOBETASOL PROPIONATE 18139543111 Norberto Miller Jr, MD BETAMETHASONE VALERATE 0.1 % LOTN Prescribed by Family SALAZAR 09/20 BETAMETHASONE VALERATE 79486152355 Norberto Miller Jr, MD CEFUROXIME AXETIL 500 MG TABS Prescribed by Family SALAZAR 09/20 CEFUROXIME AXETIL 76614751067 Norberto Miller Jr, MD ARMOUR THYROID 30 MG TABS Prescribed by Family SALAZAR 09/20 THYROID 69304834662 Norberto Miller Jr, MD SERTRALINE HCL 100 MG TABS Prescribed by Family SALAZAR 09/20 SERTRALINE HCL 68117906648 Norberto Miller Jr, MD WELLBUTRIN XL 150 MG [id number] Prescribed by Family SALAZAR 09/20 BUPROPION HCL 31149878909 Norberto Miller Jr, MD DULOXETINE HCL 30 MG CPEP 1 QAM 12/23 DULOXETINE HCL 27579333936 Norberto Miller Jr, MD BUSPIRONE HCL 5 MG TABS 1 BID 12/23 BUSPIRONE HCL 35320170071 Norberto Miller Jr, MD GABAPENTIN 300 MG CAPS Prescribed by Family SALAZAR GABAPENTIN 05174304746 Norberto Miller Jr, MD CEFUROXIME AXETIL 500 MG TABS Prescribed by Family SALAZAR 08/24 CEFUROXIME AXETIL 27243234098 Zuleyma Ly ARMOUR THYROID 30 MG TABS Prescribed by Family SALAZAR 09/20 THYROID 30807694009 Zuleyma Ly GABAPENTIN 300 MG CAPS Prescribed by Family SALAZAR 11/19 GABAPENTIN 38759983797 Zuleyma Ly SERTRALINE HCL 100 MG TABS Prescribed by Family SALAZAR 09/20 SERTRALINE HCL 60800190820 Zuleyma Ly WELLBUTRIN XL 150 MG [id number] Prescribed by Family SALAZAR 09/20 BUPROPION HCL 35450630961 Zuleyma Ly TRAZODONE HCL 50 MG TABS Prescribed by Family SALAZAR 12/23 TRAZODONE HCL 87682406943 Zuleyma Ly BETAMETHASONE VALERATE 0.1 % LOTN Prescribed by Family SALAZAR 11/19 BETAMETHASONE VALERATE 26995819032 Zuleyma Ly CLOBETASOL PROPIONATE 0.05 % CREA Prescribed by Family SALAZAR 08/24 CLOBETASOL PROPIONATE 52960602182 Zuleyma Ly Medications Administered No information available. Allergies, Adverse [...] [Mass/volume] in Serum or Plasma Internal Other: Authorizvaleryo n - 2017 - OBS HIECONSENT y N Consent To Release information to the Health Information [facility] (HIE) Telemedicine: NTEL NSLE SMOK STATUS former smoker Tob acco smoking status Telemedicine: SUSU FTEL FSLE; MRI review; cont cyclobenz; TMJ eval;Rheum p fax MEDS REVIEW Done Documenta tion of current medications (procedure) Plan of Care Type Date Detail Appointment 03:30 PM Kelle soto PA-C, [address] [facility], [address], [place], [address], Referral Dental Device Re ferral Pending order [...] Procedures Code Procedure Name Date Entry Date 74666/50877/00016&53 Occipital Nerve Blo ck and Trigger Point Injections CPT-09700 Trigger point inj (3+ musc) CPT-J1100 Dexamethasone -- 10 mg 04/26 ORDERS Follow up SUSU telemedicine 2 ORDERS Dental Device Referral 12/10 ORDERS Sleep Hygiene Tips Handout 2 ORDERS Insomnia Handout ORDERS Patient Instructions ORDERS Patient Instructions ORDERS Patient Instructions SCT-[id number] Other Referral ORDERS Instructions for Staff 09/02 ORDERS Follow up Sleep [facility] telemedicine ORDERS Patient Instructions CPT-83974 Trigger point inj (3+ musc) CPT-J1100 Dexamethasone -- 10 mg 08/10 [id number] Other Radiology 83581/38485/69225&53 Occipital Nerve Blo ck and Trigger Point Injections ORDERS Follow up Extended telemedicine 1 ORDERS Patient Instructions SCT-[id number] Other Referral SCT-[id number] Psychiatry Referral ORDERS Pain Clinic ORDERS Insomnia Handout ORDERS Sleep Hygiene Tips Handout 2 ORDERS Patient Instructions CPT-28335 PSG, 4+ parameters w / tech - 6yrs or older (72507) ORDERS Vitamin B12 ORDERS Vitamin D 25 Hydroxy ORDERS Patient Instructions SCT-[id number] Other Referral SCT-[id number] Psychology Referral ORDERS Instructions for Staff 11/28 ORDERS Lyme Total Ab w/Refl ex (reflex to Western Blot) ORDERS TSH ORDERS 2 weeks Actigraphy W atch w/ Sleep Journals (Call Sleep Lab) ORDERS Ferritin Serum ORDERS Overnight PSG - Sleep Study Overnight 07/17/19 ORDERS Telemedicine Follow up 11/08 ORDERS Ferritin Serum SCT-[id number] Documentation of current medicatio ns ORDERS Other Handout ORDERS Patient Instructions ORDERS Patient Instructions ORDERS Instructions for Staff 11/08 ORDERS Telemedicine Follow up 09/20 CPT-13896 PSG, 4+ parameters w / tech - 6yrs or older (93715) ORDERS Sleep Study - [facility] 2 [facility]-[id number] Documentation of current medicatio ns ORDERS T4 SCT-857098326 Other Referral ORDERS Lyme Total Ab w/Refl ex (reflex to Western Blot) ORDERS Rheumatoid (RA) Factor 09/20 ORDERS Sjogren's Ab - SSA/SSB (ANTI-Ro/ANTI-La) ORDERS Vitamin B1 (Thiamine) 09/20 ORDERS Vitamin D 25 Hydroxy ORDERS ALT (SGPT) ORDERS Ammonia ORDERS KELLEY ORDERS AST (SGOT) ORDERS Basic Metabolic Panel (8) 20 30/09/11 ORDERS CBC no Diff/ Platelet 0 09/20 ORDERS ESR (Sedimentation Rate) 202 05/16/11 ORDERS Hemoglobin A1C ORDERS TSH ORDERS Vitamin B12 ORDERS T3 Free CPT-67017 Nerve Conduction 7-8 studies CPT-42539 EMG with NCS (5+ muscles) - 1 limb 11/10 SCT-[id number] Documentation of current medicatio ns ORDERS Ferritin Serum ORDERS Patient Instructions ORDERS Other Test ORDERS Follow up ORDERS Vitamin B12 CPT-88436 Neuropsych assmnt w/ prov 4 hr CPT-3446259 Neuropsych assmnt w/ tech 3 hr ORDERS Follow up ORDERS Patient Instructions SCT-[id number] Documentation of current medicatio ns ORDERS Follow up ORDERS Patient Instructions SCT-[id number] Other Test CPT-39392 PSG, 4+ parameters w / tech - 6yrs or older (63591) CPT-11798 MRI Brain W/O SCT-[id number] Documentation of current medicatio ns SCT-676968699 Other Test SCT-[id number] Documentation of current medicatio ns ORDERS Ferritin Serum SCT-697588806 Other Referral ORDERS Follow up SCT-471047606 Other Test SCT-751910392 Other Referral [facility]-[id number] Documentation of current medicatio ns Vital Signs [...]
--- OUTSIDE RECORDS SUMMARY | 2025-01-20 15:05 | XMS_ITS | Encounter Summary ---
Author Organization [facility] Address [address], [place] [address] Care Team Providers Care Fish Bin Tender Name Role Phone Needs Pcp, Assignment Primary Care Provider [phone] Encounter Details Date Type Department Care Team (Late st Contact Info) Description 07/12/2019 Lab Requisition [facility] [address] [place] [address] Lul Hunter MD [address], [place] [id number] Encounter for surgical aftercare following surgery on [...] BASIC METABOLIC PANEL Routine 07/13/2019 7:00 AM FURNACE CHARGING MACHINE OPERATOR Encounter for surgical aftercare following surgery on the nervous system COMPLETE BLOOD COUNT-NO DIFF Routine 07/13/2019 7:00 AM FURNACE CHARGING MACHINE OPERATOR Encounter for surgical aftercare following surgery on the nervous system documented in this encounter Results * (ABNORMAL) Basic Metabolic Panel (07/13/2019 7:00 AM FURNACE CHARGING MACHINE OPERATOR) Sodium 136 136 - 145 mmol/L 07/13/2019 12:35 PM FURNACE CHARGING MACHINE OPERATOR [facility] Potassium 4.7 3.5 - 5.1 mmol/L 07/13/2019 12:35 PM FURNACE CHARGING MACHINE OPERATOR [facility] Chloride 100 98 - 109 mmol/L 07/13/2019 12:35 PM FURNACE CHARGING MACHINE OPERATOR [facility] CO2 27 20 - 29 mmol/L 07/13/2019 12:35 PM FURNACE CHARGING MACHINE OPERATOR [facility] Anion Gap 9 7 - 16 mmol/L 07/13/2019 12:35 PM FURNACE CHARGING MACHINE OPERATOR [facility] Calcium 9.2 8.4 - 10.4 mg/dL 07/13/2019 12:35 PM FURNACE CHARGING MACHINE OPERATOR [facility] BUN 18 7 - 26 mg/dL 07/13/2019 12:35 PM FURNACE CHARGING MACHINE OPERATOR [facility] Creatinine 0.76 0.55 - 1.02 mg/dL 07/13/2019 12:35 PM FURNACE CHARGING MACHINE OPERATOR [facility] GFR, Estimated >60 >60 mL/min/1.7 3m2 07/13/2019 12:35 PM FURNACE CHARGING MACHINE OPERATOR [facility] GFR, Est If >60 >60 mL/min/1.7 3m2 07/13/2019 12:35 PM FURNACE CHARGING MACHINE OPERATOR [facility] Glucose 105(H) 70 - 100 mg/dL 07/13/2019 12:35 PM FURNACE CHARGING MACHINE OPERATOR [facility] Comment:The given reference range is for the fasting state. Non-fasting reference range for glucose is 70 - 180 mg/dL. Hours Fasting Unknown 07/13/2019 12:35 PM FURNACE CHARGING MACHINE OPERATOR [facility] Blood Venipuncture / Unknown 07/13/2019 7:00 AM FURNACE CHARGING MACHINE OPERATOR 07/13/2019 10:40 AM FURNACE CHARGING MACHINE OPERATOR us Lul Hunter MD LAB_1 Final Result [facility] [address] [place], [place] [address] * (ABNORMAL) Complete Blood Count-No Diff (07/13/2019 7:00 AM FURNACE CHARGING MACHINE OPERATOR) WBC 4.7 3.5 - 10.5 x10(9)/L 07/13/2019 11:17 AM FURNACE CHARGING MACHINE OPERATOR [facility] RBC 3.19(L) 3.90 - 5.03 x10(12)/L 07/13/2019 11:17 AM FURNACE CHARGING MACHINE OPERATOR [facility] Hemoglobin 10.1(L) 12.0 - 15.5 g/dL 07/13/2019 11:17 AM FURNACE CHARGING MACHINE OPERATOR [facility] HCT 31.2(L) 34.9 - 44.5 % 07/13/2019 11:17 AM FURNACE CHARGING MACHINE OPERATOR [facility] MCV 97.8 80.0 - 100.0 fL 07/13/2019 11:17 AM FURNACE CHARGING MACHINE OPERATOR [facility] MCH 31.7 27.6 - 33.3 pg 07/13/2019 11:17 AM FURNACE CHARGING MACHINE OPERATOR [facility] MCHC 32.4 31.5 - 35.2 g/dL 07/13/2019 11:17 AM FURNACE CHARGING MACHINE OPERATOR [facility] RDW 11.7(L) 11.9 - 15.5 % 07/13/2019 11:17 AM FURNACE CHARGING MACHINE OPERATOR [facility] Platelets 221 150 - 450 x10(9)/L 07/13/2019 11:17 AM FURNACE CHARGING MACHINE OPERATOR [facility] Automated NRBC 0 <=0 /100 WBC 07/13/2019 11:17 AM FURNACE CHARGING MACHINE OPERATOR [facility] Blood Venipuncture / Unknown 07/13/2019 7:00 AM FURNACE CHARGING MACHINE OPERATOR 07/13/2019 10:44 AM FURNACE CHARGING MACHINE OPERATOR us Llu Hunter MD LAB_1 Final Result [facility] [address] [place] [address], [facility] documented in this encounter Visit Diagnoses Diagnosis Encounter for surgical aftercare following surgery on the nervous system documented in this encounter Care Teams Fish Bin Tender Relationship Specialty Start Date End [place] [address] PCP - General 02/28/21 documented as of this encounter
--- OUTSIDE RECORDS SUMMARY | 2025-01-20 15:05 | XMS_ITS | Encounter Summary ---
Author Organization [facility] Address [facility] [facility] 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
--- OUTSIDE RECORDS SUMMARY | 2025-01-20 15:05 | XMS_ITS | Encounter Summary ---
Author Organization [employer] Address [address], [place] [address] Care Team Providers Care Electro Winning Operator Name Role Phone Needs Pcp, Assignment Primary Care Provider [phone] Reason for Visit * Reason Comments Provider Orders Encounter Details Date Type Department Care Team (Late st Contact Info) Description 08/31/2024 Telephone [facility] [address] Infectious Disease [address] [facility]. [place], [place] [id number] Alex Issa MD [address] [place] [address] Provider Orders Social History Tobacco [...] as of this encounter Nursing Notes * Ellyn Carbone - 12/22/2024 2:22 PM CDT Spoke with patient and she is aware that this is not a DX that the [facility] will see. * Ellyn Carbone - 11/10/2024 12:29 PM CDT Referral received for patient to be seen for Lyme and Bartonella species. Can schedule with MD however Nursing here is requesting process notes. Lvm/Mc to schedule the consult. * Deborah Harrington RN - 08/31/2024 1:06 PM CDT Received outside referral from [facility] on 08/13/2024 for Rash parasites [phone] reviewed records and stated: since patient has tested negative for parasites and had no improvement reported after treatment for parasites, No IFD consult indicated at this time documented in this encounter Plan of Treatment Not on file documented as of this encounter Visit Diagnoses Not on filedocumented in this encounter Care Teams Electro Winning Operator Relationship Specialty Start Date End Date Needs Pcp, [place] [address] PCP - General 02/28/21 documented as of this encounter
--- OUTSIDE RECORDS SUMMARY | 2025-01-20 15:05 | XMS_ITS | Clinical Summary ---
Author Organization [employer] [facility] Address [address] [place] [address] Care Team Providers Care Poultry Farm Supervisor Name Role Phone Nivia Bruno MD Primary Care Provider Judie Carreno PharmD Unavailable [phone] Allergies Active Allergy Reactions Criticality Noted Date [...] High 07/10/2019 Allergy to Gold Shots Medications naloxone (Narcan) 4 mg/actuation nasal sprayIndications:A t risk for injury due to substance overdose Inhale 1 Mart into affected nostril(s) each time if needed for Patient Diff To Arouse or Resp Rate < 8 / min. Additional doses may be given every 2 to 3 minutes until emergency medical assistance arrives. 2 Each 05/29/19 24 Active cyclobenzaprine (FLEXERIL) 5 mg tablet Take 5 mg by mouth at bedtime if needed for Muscle Spasm. 08/11/19 24 Active progesterone micronized (PROMETRIUM) 100 mg capsuleIndications :Postmenopausal,Ho rmone replacement therapy Take 1 Capsule (100 mg) by mouth at bedtime. 90 Capsule 10/13/19 24 Active medication order composerIndication s:Fibromyalgia Robb [...] Apple Cider Vinegar - PRN NN Ultimate Wittmann-3 - daily Body Bio Balance Oil (omega-3/omega-6 blend) - 2 capsules daily Body Bio PC - daily BodyBio Tudca - daily 11/10/19 24 Active hydrocortisone 2.5 % creamIndications:H emorrhoids, external Apply topically to affected area(s) two times daily. 30 g 01/15/20 24 Active ketoconazole 2 % creamIndications:V aginal irritation Apply topically to affected area(s) two times daily. 60 g 01/15/20 24 Active estradioL (VAGIFEM) 10 mcg tab vaginal tablet As directed. 11/04/19 24 Active estradioL (ESTRACE) 1 mg tablet 11/05/19 24 Active aspirin (ECOTRIN) 81 mg enteric coated tabletIndications: Calcified atheromatous plaque Take 1 Tablet (81 mg) by mouth once daily with a meal. 100 Tablet 3 01/22/20 24 Active valACYclovir (VALTREX) 1 gram tabletIndications: Genital herpes simplex, unspecified site Take 1 Tablet (1 g) by mouth three times daily. Tid X 7 Days 21 Tablet 06/01/19 25 Active triamcinolone 0.1 % lotionIndications: Dermatitis Apply topically to affected area(s) three times daily. 60 mL 06/10/19 25 Active Graduated Compression StockingsIndicatio ns:Bilateral leg edema For personal use. Length: calf Strength: 20-30 mmHg 1 Packet 06/10/19 25 Active empty container (Sharps Container) mis As directed. 1 Each 07/14/19 25 Active acetaminophen SR 650 mg Extended-Release tabletIndications: Chronic polyarticular juvenile rheumatoid arthritis (HC) Take 1 Tablet (650 mg) by mouth every 8 hours if needed (pain). 270 Tablet 3 08/05/19 25 Active LORazepam 0.5 mg tabIndications:KATY (generalized anxiety disorder) Take 1 Tablet (0.5 mg) by mouth 2 times daily if needed for Anxiety. 60 Tablet 1 08/10/19 25 Active traZODone 100 mg tabletIndications: KATY (generalized anxiety disorder),Primary insomnia Take 1 Tablet (100 mg) by mouth at bedtime. 90 Tablet 1 08/10/19 25 Active liothyronine 5 mcg tabletIndications: Hypothyroidism, unspecified type Take 1 tablet (5 mcg) by mouth two times daily. 180 Tablet 08/14/19 25 Active ondansetron 4 mg disintegrating tabletIndications: Nausea Place 1 Tablet (4 mg) on the tongue every 8 hours if needed for Nausea/Vomiting. 30 Tablet 2 09/11/19 25 Active alirocumab (Praluent Pen) 150 mg/mL pnijIndications:Ca lcified atheromatous plaque Inject 150 mg subcutaneous every 2 weeks. 2 mL 3 10/14/19 25 Active busPIRone 15 mg tabletIndications: KATY (generalized anxiety disorder) Take 1.5 Tablets (22.5 mg) by mouth two times daily. 270 Tablet 1 10/27/19 25 Active SUMAtriptan (IMITREX) 25 mg tabletIndications: Hx of migraines Take 1 Tablet (25 mg) by mouth 2 times daily if needed for Migraine. Give at minimum 2hrs apart. Max Dose: 200mg per 24hrs. 9 Tablet 12/02/19 25 Active lidocaine 5 % topical patchIndications:L umbar radiculopathy Apply on dry, clean, hairless skin. Apply 1 patch to painful area of skin for up to to 12 hours within 24 hour period. 30 Patch 5 12/02/19 25 Active HYDROmorphone 4 mg tabletIndications: Lumbar radiculopathy,Lumb ar spondylosis Take 1 Tablet (4 mg) by mouth 3 times daily if needed for Pain. Chronic pain 24 Tablet 12/03/19 25 Active clobetasol (TEMOVATE) 0.05 % ointmentIndication s:Lichen sclerosus Apply topically to affected area(s) two times daily. 60 g 12/07/19 25 Active multivitamin (MVI) tabletIndications: Fatigue, unspecified type,Unintentional weight loss Take 1 Tablet by mouth once daily. 90 Tablet 3 12/09/19 25 Active rosuvastatin (CRESTOR) 5 mg tabletIndications: Calcified atheromatous plaque Take 1 Tablet (5 mg) by mouth at bedtime. 90 Tablet 3 12/09/19 25 Active vilazodone 40 mg tabletIndications: KATY (generalized anxiety disorder),Moderate episode of recurrent major depressive disorder (HC) Take 1 Tablet (40 mg) by mouth once daily. 30 Tablet 2 12/10/19 25 Active trimethoprim-sulfa methoxazole 160-800 mg tabIndications:Com plicated UTI (urinary tract infection) Take 1 Tablet by mouth two times daily for 7 days. 14 Tablet 01/08/20 25 025 Hospital, Clinic, or Other Facility Administered Medication Ordered Dose Route Frequency Start Date End Date Status betamethasone acet,sod phos 9 mg injection (CELESTONE SOLUSPAN)Indications:Chron ic bursitis of right shoulder 9 mg IArtic ONE TIME 01/06/2025 01/06/2025 Ended betamethasone acet,sod phos 3 mg injection (CELESTONE SOLUSPAN)Indications:Tendo nitis of upper biceps tendon of right shoulder 3 mg IArtic ONE TIME 01/06/2025 01/06/2025 Ended Active Problems Problem Noted Date Diagnosed Date Traumatic brain injury, with unknown loss of consciousness status, subsequent encounter 10/14/2024 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 3 Dysthymic disorder 11/26/2007 11/22/201 6 Unspecified drug dependence, in remission 01/25/2022 Encounters Date Type Department Care Team Description 01/20/2025 9:45 AM CDT Phone Office Visit [facility] [address] [place] [address] Freda Serrano MD Phone Visit; Medication Management; Follow Up 01/20/2025 Telephone [facility] [address] [place] [address] Freda Serrano MD Chest Pain/problem 01/20/2025 Travel 01/19/2025 Travel 01/18/2025 1:00 PM CDT Phone Office Visit [facility] [place] [phone] Keiko Downs LICSW Failed Appointment (6th failed appt) 01/18/[address] [place] [phone] Keiko Downs LICSW Appointment (call back) 01/18/2025 Travel 01/17/[address] [address] Judie Carreno, [place] Appointment 01/13/2025 1:30 PM CDT Procedure Only [address] [place] [address] Tyler Parson L Ac Acupuncture 01/13/2025 Travel 01/12/2025 Telephone [facility] [address] [place] [address] Freda Serrano MD 01/11/2025 1:45 PM CDT Office Visit [facility] [address] [place] [address] Kourtney Cherry PA Throat Problem (Sores in mouth and throat following antibiotic use for uti; would like blood work) 01/11/2025 1:00 PM CDT Phone Office Visit [address] [place] [phone] Keiko Downs, BALL THREAD MACHINE TENDER Individual Therapy; Phone Visit 01/11/2025 Telephone [facility] [address] [facility] [place] [phone] Keiko Downs BALL THREAD MACHINE TENDER 01/11/2025 Travel 01/07/2025 Telephone [facility] [address] [place] [address] Nivia Bruno MD Bladder Infection (Antibiotics not working) 01/06/2025 3:40 PM CDT Office Visit [address] [place] [address] Facundo Mijares MD Musculoskeletal Problem (Follow Up Bilateral Shoulder Pain ) 01/06/2025 2:00 PM CDT Procedure Only [address] [place] [address] Tyler Parson L Ac Acupuncture 01/06/2025 Travel 01/05/[address] [place] [address] Facundo Mijares MD Questions (APPOINTMENT ) 01/04/2025 1:00 PM CDT Phone Office Visit [facility] [address] [facility] [place] [phone] Keiko Downs BALL THREAD MACHINE TENDER Failed Appointment (5th failed appt) 01/04/[address] [address] Kourtney Cherry PA Medication Management 01/04/2025 Travel 01/02/2025 Orders Only [facility] Scanner 1 scan: (1-Ord) MARGARITA MULTIPLE LAB RESULTS, 01/02/2025 12/29/2024 11:00 AM CDT Procedure Only [address] [place] [address] Tyler Parson L Ac Acupuncture 12/28/2024 1:00 PM CDT Phone Office Visit [address] [phone] Keiko Downs, [facility] Individual Therapy; Phone Visit 12/28/2024 Travel 12/27/2024 Telephone [facility] [address] [place] [address] Nivia rBuno MD Form (disability form) 12/17/2024 Telephone [facility] [address] [place] [address] Kourtney Cherry PA Refill Request (Diflucan ) 12/16/2024 1:30 PM CDT Procedure Only [facility] [address] [place] [address] Tyler Parson L Ac Acupuncture 12/16/2024 Travel 12/15/2024 2:30 PM CDT Pharmacist Medication Management [address] [address] Judie Carreno PharmD Pharmacist Medication Management (CMR initial - provider referral (at patient request) - phone visit) 12/14/2024 1:00 PM CDT Phone Office Visit [facility] [address] [place] [phone] [facility] Individual Therapy; Phone Visit 12/14/2024 Travel 12/13/2024 Telephone [facility] [address] [place] [address] Freda Serrano MD Prior Authorization (vilazodone 40 mg tablet PA NOT NEEDED) 12/10/2024 1:00 PM CDT Procedure Only [facility] [address] [place] [address] Tyler Parson L Ac Acupuncture 12/10/2024 Patient Outreach [facility] Care Management - Advanced Care Team [facility] [place], [place] [id number] Dana Benitez Medication Management (COMPREHENSIVE MEDICATION REVIEW - PROVIDER REFERRAL - ACO REACH ) 12/10/2024 Patient Outreach [facility] [address] [place] [address] Nivia Bruno MD Serious Illness Conversation 12/10/2024 Travel 12/09/2024 11:15 AM CDT Phone Office Visit [address] [address] Freda Serrano MD Medication Management; Follow Up; Depression 12/08/2024 10:50 AM CDT Office Visit [address] [address] Nivia Bruno MD Concerns (Tired, would like labs checked) 12/08/[address] [address] Nivia Bruno MD Questions 12/08/2024 Travel 12/07/2024 1:00 PM CDT Phone Office Visit [address] [phone] Keiko Downs, [facility] Individual Therapy; Phone Visit 12/07/[address] [address] Kourtney Cherry PA Medication Management (fluconazole (DIFLUCAN) 150 mg tablet) 12/06/2024 11:05 AM CDT Office Visit [address] [address] Kourtney Cherry PA Vaginal Problem 12/06/2024 Travel 12/02/2024 1:00 PM CDT Procedure Only [address] [address] Tyler Parson L Ac Acupuncture 12/02/[address] [address] Facundo Mijares MD Medication Management (HYDROmorphone 8 mg tablet ) 12/01/2024 4:30 PM CDT Ancillary Procedure [address] [address] 12/01/2024 4:15 PM CDT Ancillary Procedure [facility] [address] [place] [address] 12/01/2024 3:40 PM CDT Office Visit [facility] [address] [place] [address] Facundo Mijares MD Follow Up (Lower back pain radiates down rt buttocks and leg ); Shoulder Pain/problem (Left shouder); Refill Request (Lidocaine patch, Hydromorphone and Sumatriptan ) 12/01/2024 3:00 PM CDT Ancillary Procedure [facility] [address] [facility] [place] [address] 12/01/2024 Travel 11/30/2024 1:00 PM CDT Phone Office Visit [facility] [address] [facility] [place] [phone] Keiko Downs LICSW Individual Therapy; Phone Visit 11/30/2024 Travel 11/25/2024 10:30 AM CDT Procedure Only [address] [place] [address] Tyler Parson L Ac Acupuncture 11/25/2024 Travel 11/23/2024 1:00 PM CDT Phone Office Visit [facility] [address] [facility] [phone] Keiko Downs LICSW Individual Therapy; Phone Visit 11/23/2024 Travel 11/16/2024 1:00 PM CDT Phone Office Visit [facility] [address] [facility] [place] [address] Keiko Downs LICSW Failed Appointment 11/16/2024 Travel 11/11/2024 1:00 PM CDT Procedure Only [facility] [address] [place] [address] Tyler Parson L Ac Acupuncture 11/11/2024 Telephone [facility] [address] [place] [address] Nivia Bruno MD IRON INFUSION INQUIRY 11/10/2024 2:00 PM CDT Nurse/Clinic Staff Only [facility] [address] [place] [address] Infusion Therapy (1st Reclast) 11/10/2024 Travel 11/09/2024 1:00 PM CDT Phone Office Visit [facility] [address] [place] [phone] Keiko Downs, [facility] Individual Therapy; Phone Visit 11/09/2024 Travel 11/04/2024 1:00 PM CDT Procedure Only [facility] [address] [place] [address] Tyler Parson L Ac Acupuncture 11/04/2024 Travel 11/02/2024 1:00 PM CDT Phone Office Visit [facility] [address] [facility] [phone] [facility] Individual Therapy; Phone Visit 11/02/2024 Travel 10/29/2024 Telephone [facility] [address] [place] [address] Facundo Mijares MD Appointment (Lower Back ) 10/28/2024 2:00 PM CDT Procedure Only [facility] [place] [address] Tyler Parson L Ac Acupuncture 10/28/2024 Telephone [facility] [address] [place] [address] Facundo Mijares MD Questions (HIP SURGERY RECOMMDATION) 10/28/2024 Travel 10/26/2024 1:00 PM CDT Phone Office Visit [facility] [place] [address] [facility] Individual Therapy; Phone Visit 10/26/2024 11:15 AM CDT Phone Office Visit [facility] [address] [place] [address] Freda Serrano MD Medication Management; Phone Visit 10/26/2024 Telephone [facility] [address] [place] [address] Nivia Bruno MD Questions (Reclast infusion) 10/26/2024 Travel 10/21/2024 2:00 PM CDT Procedure Only [facility] [address] [place] [address] Tyler Parson L Ac Acupuncture 10/21/2024 Travel 10/20/2024 Telephone [facility] [address] [place] [address] Nivia Bruno MD requesting a doctors note 10/20/2024 Telephone [facility] [address] [place] [address] Nivia Bruno MD Referral (Colon and Rectal ) from Last 3 Months Immunizations Immunization Administration [...] PHQ-2 Answer Date Recorded PHQ-2 TOTAL SCORE 6 01/19/2025 Social Connections Answer Date Recorded Do you [...] on file Legal Sex Female 6:06 AM CHILD GUIDANCE COUNSELOR Gender Identity Not on file Sexual [...] Sign Reading Time Taken Comments Blood Pressure 131/89 01/11/2025 1:46 PM CDT Pulse 92 01/11/2025 1:46 PM CDT Temperature 36.6 C (97.8 F) 01/06/2025 3:32 PM CDT Respiratory Rate 16 04/01/2022 3:21 PM CHILD GUIDANCE COUNSELOR Oxygen Saturation 95% 01/11/2025 1:46 PM CDT Inhaled Oxygen Concentration - - Weight 75.8 kg (167 lb 3.2 oz) 01/06/2025 3:32 P M CDT Height 172.7 cm (5' 8) 10/14/2024 11:14 AM CDT Body Mass Index 25.42 10/14/2024 11:14 AM CDT Plan of Treatment Upcoming Encounters Date Type Department Care Team (Late st Contact Info) Description 01/25/2025 1:00 PM CDT Phone Office Visit [facility] [address] [place] [phone] Keiko Downs, [facility] [address] [place] [address] 01/26/2025 2:30 PM CDT Pharmacist Medication Management [facility] [address] [place] [address] Judie Carreno, PharmD [address] [address] 01/27/2025 1:30 PM CDT Procedure Only [facility] [address] [place] [address] Tyler Parson L Ac [address] [place] [address] 02/01/2025 3:00 PM CDT Office Visit [facility] [address] [place] [facility] [phone] Walter Bourne MD [address] [address] 02/03/2025 2:00 PM CDT Procedure Only [facility] [address] [place] [address] Tyler Parson L Ac [address] [place] [address] 02/07/2025 2:00 PM CDT Procedure Only [facility] [address] [place] [facility] [address] Tyler Parson L Ac [address] [place] [address] 02/17/2025 1:30 PM CDT Procedure Only [facility] [address] [place] [address] Tyler Parson L Ac [address] [place] [address] 02/18/2025 1:10 PM CDT Office Visit [facility] [address] [place] [address] Nivia Bruno MD [address] [place] [address] 02/24/2025 1:30 PM CDT Procedure Only [facility] [address] [place] [address] Tyler Parson L Ac [address] [facility] [place] [address] 03/03/2025 1:30 PM CDT Procedure Only [facility] [address] [facility] [place] [address] Tyler Parson L Ac [address] [place] [address] 03/10/2025 2:00 PM CDT Procedure Only [facility] [address] [facility] [place] [address] Tyler Parson L Ac [address] [place] [address] 03/17/2025 2:00 PM CHILD GUIDANCE COUNSELOR Procedure Only [facility] [address] [facility] [place] [address] Tyler Parson L Ac [address] [place] [address] 03/24/2025 10:15 AM CHILD GUIDANCE COUNSELOR Phone Office Visit [facility] [address] [facility] [place] [address] Freda Serrano MD [address] [place] [address] 03/24/2025 2:00 PM CHILD GUIDANCE COUNSELOR Procedure Only [facility] [address] [place] [address] Tyler Parson L Ac [address] [place] [address] 03/31/2025 2:00 PM CHILD GUIDANCE COUNSELOR Procedure Only [facility] [address] [place] [address] Tyler Parson, L Ac [address] [place] [address] 04/14/2025 2:00 PM CHILD GUIDANCE COUNSELOR Procedure Only [facility] [address] [place] [address] Tyler Parson, [place] Ac [address] [place] [address] 04/21/2025 2:00 PM CHILD GUIDANCE COUNSELOR Procedure Only [facility] [address] [place] [address] Tylre Parson, [place] [address] [place] [address] 04/28/2025 1:30 PM CHILD GUIDANCE COUNSELOR Procedure Only [facility] [address] [place] [address] Tyler Parson, [place] [address] [place] [address] Health Maintenance Due Date Last Done Comments RSV vaccine for adults or (1 - Risk 60-74 years 1-dose series) 2019 DEXA/DXA scan for age 65+ 04/11/20242023, 09/24/2023 (Verified in Care Everywhere or Patient Record), 09/19/2021, Additional history exists COVID-19 vaccine series ( season) 2025 06/11/2023, 08/21/2021, 02/21/2021, Additional history exists Influenza Vaccine (#1) 2025 , 06/10/2024, 03/16/2022, Additional history exists Mammogram for age 45-75 09/15/2025 09/16/19, 08/01/2023, 05/13/2022, Additional history exists BMI (ht and wt on same day) for age 18+ 10/14/2025 10/14/2024, 04/14/2023, 06/06/2022, Additional history exists Medicare Wellness for age 65+ 10/15/2025 10/14/2024, 06/01/2019 Depression screening for age 12+ 01/19/2026 01/19/2025, 12/10/2024, 10/26/2024, Additional history exists Tetanus booster 05/31/2026 05/31/2016, 09/30/2005 Pap test for age 21-65 11/03/2026 , 11/04/2023, 10/04/2022, Additional history exists Lipids for age 45-75 10/14/2029 10/14/2024, 07/08/2023, 09/04/2021, Additional history exists Colonoscopy through age 75 01/29/203201/28, 08/12/2018, 08/12/2018, Additional history exists Hepatitis B series for 19+ Completed 03/03, 08/11/2001, 07/10/2001 Hepatitis C screening for ag e 18-79 Completed 09/30/2017, 04/02/2016 HIV for age 15-65 Completed 06/01/2018, , 08/28/2015, Additional history exists Zoster (shingles) series for age 50+ Completed 08/28/2020, 05/11/2020 Pneumococcal series for age 50+ Completed 09/06/2024, 03/25/2017, 07/11/2009, Additional history exists Procedures Procedure Name Priority Date/Time Associated Diagnosis Comments ACUPUNCTURE PLAN OF CARE Routine 01/13/2025 3:34 PM CDT Other low back pain COVID-19 MOLECULAR Routine 01/11/2025 2: 26 PM CDT Sore throat CBC WITH AUTO DIFFERENTIAL Routine 01/11/2025 2:26 PM CDT UTI symptoms URINALYSIS MICROSCOPIC Routine 01/11/2025 2:26 PM CDT UTI symptoms URINE CULTURE Routine 01/11/2025 2:26 PM CDT UTI symptoms BASIC METABOLIC PANEL Routine 01/11/2025 2:26 PM CDT UTI symptoms CBC WITH AUTO DIFFERENTIAL Routine 01/11/2025 2:26 PM CDT UTI symptoms THROAT RAPID STREP ONLY CLINIC Routine 01/11/2025 2:26 PM CDT Sore throat ACUPUNCTURE PLAN OF CARE Routine 01/06/2025 3:57 PM CDT Other low back pain SCAN-LABORATORY REPORT 01/02/2025 12:00 AM CDT ACUPUNCTURE PLAN OF CARE Routine 12/29/2024 11:07 AM CDT Other low back pain ACUPUNCTURE PLAN OF CARE Routine 12/16/2024 1:35 PM CDT Other low back pain ACUPUNCTURE PLAN OF CARE Routine 12/10/2024 1:11 PM CDT Other low back pain CBC WITH AUTO DIFFERENTIAL Routine 12/08/2024 11:55 AM CDT Fatigue, unspecified type Unintentional weight loss Prediabetes Early satiety COMP METABOLIC PANEL Routine 12/08/2024 11:55 AM CDT Fatigue, unspecified type Unintentional weight loss Prediabetes Early satiety Calcified atheromatous plaque TSH Routine 12/08/2024 11:55 AM CDT Fatigue, unspecified type Unintentional weight loss Prediabetes Early satiety Hypothyroidism, unspecified type HEMOGLOBIN A1C Routine 12/08/2024 11:55 AM CDT Fatigue, unspecified type Unintentional weight loss Prediabetes Early satiety FERRITIN Routine 12/08/2024 11:55 AM CDT Fatigue, unspecified type Unintentional weight loss Prediabetes Early satiety Osteopenia, unspecified location Calcified atheromatous plaque Hypothyroidism, unspecified type Prurigo nodularis VITAMIN D 25 (DEFICIENCY) Routine 12/08/2024 11:55 AM CDT Fatigue, unspecified type Unintentional weight loss Prediabetes Early satiety Osteopenia, unspecified location Calcified atheromatous plaque Hypothyroidism, unspecified type VITAMIN B12 Routine 12/08/2024 11:55 AM CDT Fatigue, unspecified type Unintentional weight loss Prediabetes Early satiety TRICHOMONAS, CARMELO, AND BACTERIAL VAGINOSIS BY JUAN Routine 12/06/2024 11:08 AM CDT Vaginal irritation ACUPUNCTURE PLAN OF CARE Routine 12/02/2024 2:03 PM CDT Other low back pain XR SPINE CERVICAL 3 VIEWS Routine 12/01/2024 5:03 PM CDT Neck pain, chronic XR SHOULDER 3 VIEWS LEFT Routine 12/01/2024 4:58 PM CDT Chronic left shoulder pain XR FEMUR 2 VIEWS RIGHT Routine 12/01/2024 4:58 PM CDT Right leg pain ACUPUNCTURE PLAN OF CARE Routine 11/25/2024 10:25 AM CDT Other low back pain ACUPUNCTURE PLAN OF CARE Routine 11/11/2024 1:05 PM CDT Other low back pain ACUPUNCTURE PLAN OF CARE Routine 11/04/2024 3:31 PM CDT Other low back pain ACUPUNCTURE PLAN OF CARE Routine 10/28/2024 3:36 PM CDT Other low back pain ACUPUNCTURE PLAN OF CARE Routine 10/21/2024 2:28 PM CDT Other low back pain LIPID PANEL W REFLEX MEASURED LDL Routine 10/14/2024 12:34 PM CDT Calcified atheromatous plaque XR MAMMO EVA BILAT DIAG Routine 09/15/2024 2:20 PM CDT Pain of both breasts IGNITION MECHANIC THIN PREP PAP SCREEN IMAGED Routine 11/04/2023 3:50 PM CDT XR DXA BONE DENSITY 2 SITES AXIAL Routine 09/24/2023 2:28 PM CDT Osteopenia, unspecified location Menopause SCAN-COLONOSCOPY 01/28/2022 1:00 PM CDT ANTI HIV 1/2 Routine 06/01/2018 4:02 PM CHILD GUIDANCE COUNSELOR Exposure to STD ANTI HCV Routine 09/30/2017 5:38 PM CDT STD exposure from Last 3 Months or Most Recently Relevant to Health Maintenance Results * COVID-19 MOLECULAR (01/11/2025 2:26 PM CDT) Pathologist [facility] COVID 19 [place] MOLECULAR Negative Negative 01/12/2025 2:42 AM CDT [facility]- [facility] LABORATORY TESTING LABORATORY [facility] Laboratory 01/12/2025 2:42 AM CDT [facility] Comment:Specimen submitted t o [facility] for testing. Other SPECIMEN FROM NASAL FOSSAE / Unknown Non-Blood / Unknown 01/11/2025 2:26 PM CDT 01/11/2025 2:27 PM CDT Narrative [facility] - 01/12/2025 2:42 AM CDT All PCR tests are subject to false negative result due to variability in viral load and collection technique. A negative result does not rule out a SARS-CoV-2 infection. Clinical correlation required. us Kourtney GUERRERO MICROBIOLOGY Final Result [facility] [address] [place] [address], * CBC WITH AUTO DIFFERENTIAL (01/11/2025 2:26 PM CDT) Pathologist [facility] WHITE BLOOD CELL COUNT 8.2 3.8 - 10.8 Thousand/u L 01/12/2025 4:06 AM CDT [facility] RED BLOOD CELL COUNT 4.74 3.80 - 5.10 Million/uL 01/12/2025 4:06 AM CDT [facility] HEMOGLOBIN 15.3 11.7 - 15.5 g/dL 01/12/2025 4:06 AM CDT [facility] HEMATOCRIT 45.0 35.0 - 45.0 % 01/12/2025 4:06 AM CDT [facility] MCV 94.9 80.0 - 100.0 fL 01/12/2025 4:06 AM CDT [facility] MCH 32.3 27.0 - 33.0 pg 01/12/2025 4:06 AM CDT [facility] MCHC 34.0 32.0 - 36.0 g/dL 01/12/2025 4:06 AM CDT [facility] Comment: For adults, a slight decrease in the calculated MCHC value (in the range of 30 to 32 g/dL) is most likely not clinically significant; however, it should be interpreted with caution in correlation with other red cell parameters and the patient's clinical condition. RDW 12.7 11.0 - 15.0 % 01/12/2025 4:06 AM CDT [facility] PLATELET COUNT 287 140 - 400 Thousand/u L 01/12/2025 4:06 AM CDT [facility] MPV 9.4 7.5 - 12.5 fL 01/12/2025 4:06 AM CDT [facility] NEUTROPHILS 71.8 % 01/12/2025 4:06 AM CDT [facility] LYMPHOCYTES 20.3 % 01/12/2025 4:06 AM CDT [facility] MONOCYTES 7.1 % 01/12/2025 4:06 AM CDT [facility] EOSINOPHILS 0.4 % 01/12/2025 4:06 AM CDT [facility] BASOPHILS 0.4 % 01/12/2025 4:06 AM CDT [facility] ABSOLUTE NEUTROPHILS 5888 1500 - 7800 cells/uL 01/12/2025 4:06 AM CDT [facility] ABSOLUTE LYMPHOCYTES 1665 850 - 3900 cells/uL 01/12/2025 4:06 AM CDT [facility] ABSOLUTE MONOCYTES 582 200 - 950 cells/uL 01/12/2025 4:06 AM CDT [facility] ABSOLUTE EOSINOPHILS 33 15 - 500 cells/uL 01/12/2025 4:06 AM CDT [facility] ABSOLUTE BASOPHILS 33 0 - 200 cells/uL 01/12/2025 4:06 AM CDT [facility] Blood BLOOD SPECIMEN / Unknown [facility] / Unknown 01/11/2025 2:26 PM CDT 01/11/2025 2:26 PM CDT Kourtney GUERRERO HEMATOLOGY Final Result [facility] [address] [address], [place] [phone] * URINALYSIS MICROSCOPIC [95506.1] - routine (01/11/2025 2:26 PM CDT) RBC 0-2 0-2, None Seen /HPF 01/11/2025 11:40 PM CDT [facility] LABORATORY WBC 0-2 0-2, 3-5, None Seen /HPF 01/11/2025 11:40 PM CDT [facility] LABORAT[facility] BACTERIA None Seen None Seen, Rare, Few Bacteria/ HPF 01/11/2025 11:40 PM CDT [facility] TRAL LABORATORY EPITHELIAL CELLS None Seen None Seen, Few Epi/HPF 01/11/2025 11:40 PM CDT [facility] TRAL LABORATORY HYALINE CASTS 0-2 0-2, 3-5 /LPF 01/11/2025 11:40 PM CDT [facility]AL LABORATORY Urine URINE SPECIMEN / Unknown Non-Blood / Unknown 01/11/2025 2:26 PM CDT 01/11/2025 2:26 PM CDT Kourtney GUERRERO URINE Final Result [facility] [address] [place] [address], * URINE CULTURE [14048.2] (01/11/2025 2:26 PM CDT) CULTURE <10,000 CFU/mL multiple organisms 01/13/2025 11:03 AM CDT [facility] LABORATORY Urine URINE SPECIMEN / Unknown Non-Blood / Unknown 01/11/2025 2:26 PM CDT 01/11/2025 2:26 PM CDT us Kourtney GUERRERO MICROBIOLOGY Final Result [facility]-C[facility]TRAL LABORATORY [address] [place] [address], [place] * THROAT RAPID STREP ONLY CLINIC (01/11/2025 2:26 PM CDT) POC, GROUP A STREP NOT DETECTED NOT DETECTED 01/11/2025 2:36 PM CDT [facility] Comment: The [place] [employer] recommends that a throat culture be performed if a rapid group A streptococcus assay yields a negative result. [employer] recommends Streptococcus, Group A culture. Throat SPECIMEN FROM THROAT / Unknown Non-Blood / Unknown 01/11/2025 2:26 PM CDT 01/11/2025 2:26 PM CDT us Kourtney GUERRERO MICROBIOLOGY Final Result Performing Organization Address City/[facility]/ZIP Co de Phone Number [facility] [address] [place] [address], [place] [phone] [facility] [address] [place] [address], [place] [phone] * (ABNORMAL) BASIC METABOLIC PANEL (01/11/2025 2:26 PM CDT) Pathologist [facility] SODIUM 134(L) 135 - 146 mmol/L 01/12/2025 9:17 AM CDT [facility] POTASSIUM 4.9 3.5 - 5.3 mmol/L 01/12/2025 9:17 AM CDT [facility] CARBON DIOXIDE 24 20 - 32 mmol/L 01/12/2025 9:17 AM CDT [facility] GLUCOSE 109(H) 65 - 99 mg/dL 01/12/2025 9:17 AM CDT [facility] Comment: Fasting reference interval For someone without known diabetes, a glucose value between 100 and 125 mg/dL is consistent with prediabetes and should be confirmed with a follow-up test. CALCIUM 10.1 8.6 - 10.4 mg/dL 01/12/2025 9:17 AM CDT [facility] CREATININE 1.12(H) 0.50 - 1.05 mg/dL 01/12/2025 9:17 AM CDT [facility] BUN/CREATININE RATIO 17 6 - 22 (calc) 01/12/2025 9:17 AM CDT [facility] EGFR 55(L) > OR = 60 mL/min/1. 73m2 01/12/2025 9:17 AM CDT [facility] UREA NITROGEN (BUN) 19 7 - 25 mg/dL 01/12/2025 9:17 AM CDT [facility] ELECTROLYTE BALANCE 13 7 - 17 mmol/L (calc) 01/12/2025 9:17 AM CDT [facility] CHLORIDE 97(L) 98 - 110 mmol/L 01/12/2025 9:17 AM CDT [facility] Blood BLOOD SPECIMEN / Unknown [facility] / Unknown 01/11/2025 2:26 PM CDT 01/11/2025 2:26 PM CDT Kourtney GUERRERO CHEMISTRY Final Result [facility] [address] [place] [address], * SCAN-LABORATORY REPORT (01/02/2025 12:00 AM CDT) us Scanner OTHER Final Result * (ABNORMAL) HEMOGLOBIN A1C (12/08/2024 11:55 AM CDT) HEMOGLOBIN A1C 5.9(H) <5.7 % [facility] Comment: For someone without known [...] for children. Blood BLOOD SPECIMEN / Unknown 12/08/2024 11:55 AM CDT 12/08/2024 11:56 AM CDT Nivia Bruno MD CHEMISTRY Final Resul t Performing Organization Address [facility]/ZIP Co de Phone Number [facility] [address] [facility] [place] [address], [place] [phone] [facility] [address] [place] [address] * VITAMIN D 25 (DEFICIENCY) (12/08/2024 11:55 AM CDT) VITAMIN D,25-OH,TOTAL,IA 54 30 - 100 ng/mL [employer] Comment: Vitamin D Status 25-OH Vitamin D: Deficiency: <20 ng/mL Insufficiency: 20 - 29 ng/mL Optimal: > or = 30 ng/mL For 25-OH Vitamin D testing on patients on D2-supplementation and patients for whom quantitation of D2 and D3 fractions is required, the Quest[facility]ure[facility](TM) 25-OH VIT D, (D2,D3), LC/MS/MS is recommended: order code 55040 (patients >2yrs). See Note 1 Note 1 For additional information, please refer to http://education.[employer]/faq/CQG987 (This link is being provided for informational/ educational purposes only.) Blood BLOOD SPECIMEN / Unknown 12/08/2024 11:55 AM CDT 12/08/2024 11:56 AM CDT Nivia Bruno MD SEND OUTS Final Resul t [facility] [address] [facility] [place] [address], [place] [phone] [facility] [address] [place] [address] * TSH (12/08/2024 11:55 AM CDT) TSH 0.53 0.40 - 4.50 mIU/L [employer] Blood BLOOD SPECIMEN / Unknown 12/08/2024 11:55 AM CDT 12/08/2024 11:56 AM CDT us Nivia Bruno MD CHEMISTRY Final Resul t [facility] [address] [place] [address], [facility] [address] [place] [address] * (ABNORMAL) CBC AND DIFFERENTIAL (12/08/2024 11:55 AM CDT) Pathologist [facility] WHITE BLOOD CELL COUNT 9.3 3.8 - 10.8 Thousand/u L [facility] RED BLOOD CELL COUNT 4.78 3.80 - 5.10 Million/uL [facility] HEMOGLOBIN 15.1 11.7 - 15.5 g/dL [facility] HEMATOCRIT 45.8(H) 35.0 - 45.0 % [facility] MCV 95.8 80.0 - 100.0 fL [facility] MCH 31.6 27.0 - 33.0 pg [facility] MCHC 33.0 32.0 - 36.0 g/dL [facility] Comment: For adults, a slight decrease in the calculated MCHC value (in the range of 30 to 32 g/dL) is most likely not clinically significant; however, it should be interpreted with caution in correlation with other red cell parameters and the patient's clinical condition. RDW 12.8 11.0 - 15.0 % [facility] PLATELET COUNT 258 140 - 400 Thousand/u L [facility] MPV 9.7 7.5 - 12.5 fL [facility] ABSOLUTE NEUTROPHILS 7,096 1,500 - 7,800 cells/uL [facility] ABSOLUTE LYMPHOCYTES 1,516 850 - 3,900 cells/uL [facility] ABSOLUTE MONOCYTES 595 200 - 950 cells/uL [facility] ABSOLUTE EOSINOPHILS 47 15 - 500 cells/uL [facility] ABSOLUTE BASOPHILS 47 0 - 200 cells/uL [facility] NEUTROPHILS 76.3 % [facility] LYMPHOCYTES 16.3 % [facility] MONOCYTES 6.4 % [facility] EOSINOPHILS 0.5 % [facility] BASOPHILS 0.5 % [facility] Blood BLOOD SPECIMEN / Unknown 12/08/2024 11:55 AM CDT 12/08/2024 11:56 AM CDT us Nivia Bruno MD HEMATOLOGY Final Resul t [facility] [address] [place] [address], [place] [phone] [facility] [address] [place] [address] * FERRITIN (12/08/2024 11:55 AM CDT) FERRITIN 51 16 - 288 ng/mL [facility] Blood BLOOD SPECIMEN / Unknown 12/08/2024 11:55 AM CDT 12/08/2024 11:56 AM CDT Nivia Bruno MD CHEMISTRY Final Resul t [facility] [address] [place] [address], [place] [phone] [facility] [address] [place] [address] * VITAMIN B12 (12/08/2024 11:55 AM CDT) VITAMIN B12 790 200 - 1,100 pg/mL [facility] Blood BLOOD SPECIMEN / Unknown 12/08/2024 11:55 AM CDT 12/08/2024 11:56 AM CDT us Nivia Bruno MD CHEMISTRY Final Resul t [facility] [address] [place] [address], [facility] [address] [place] [address] * (ABNORMAL) COMP METABOLIC PANEL (12/08/2024 11:55 AM CDT) [facility] GLUCOSE 101(H) 65 - 99 mg/dL [employer] Comment: Fasting reference interval For someone without known diabetes, a glucose value between 100 and 125 mg/dL is consistent with prediabetes and should be confirmed with a follow-up test. UREA NITROGEN (BUN) 20 7 - 25 mg/dL [employer] CREATININE 0.97 0.50 - 1.05 mg/dL [employer] EGFR 65 > OR = 60 mL/min/1. 73m2 [employer] BUN/CREATININE RATIO SEE NOTE: 6 - 22 (calc) [employer] Comment: Not Reported: BUN and Creatinine are within reference range. SODIUM 136 135 - 146 mmol/L [facility] POTASSIUM 4.1 3.5 - 5.3 mmol/L [facility] CHLORIDE 102 98 - 110 mmol/L [facility] CARBON DIOXIDE 23 20 - 32 mmol/L [facility] CALCIUM 9.5 8.6 - 10.4 mg/dL [facility] PROTEIN, TOTAL 7.4 6.1 - 8.1 g/dL [facility] ALBUMIN 4.7 3.6 - 5.1 g/dL [facility] GLOBULIN 2.7 1.9 - 3.7 g/dL (calc) [facility] ALBUMIN/GLOBULIN RATIO 1.7 1.0 - 2.5 (calc) [employer] BILIRUBIN, TOTAL 0.4 0.2 - 1.2 mg/dL [facility] ALKALINE PHOSPHATASE 59 37 - 153 U/L [facility] AST 17 10 - 35 U/L [facility] ALT 14 6 - 29 U/L [facility] Blood BLOOD SPECIMEN / Unknown 12/08/2024 11:55 AM CDT 12/08/2024 11:56 AM CDT Nivia Bruno MD CHEMISTRY Final Resul t [facility] [address] [place] [address], [facility] [address] [place] [address] * (ABNORMAL) TRICHOMONAS, CARMELO, AND BACTERIAL VAGINOSIS BY JUAN (12/06/2024 11:08 AM CDT) CARMELO SPECIES Positive(A) Negative 12/07/19 9:11 PM CDT [facility] CARMELO GLABRATA Negative Negative 12/06/2024 9:11 PM CDT [facility] TRICHOMONAS VVA Negative Negative 9:11 PM CDT [facility] BACTERIAL VAGINOSIS Negative Negative 12/06/2024 9:11 PM CDT [facility] Other VAGINAL SWAB / Unknown Non-Blood / Unknown 12/06/2024 11:08 AM CDT 12/06/2024 11:24 AM CDT us Kourtney GUERRERO MICROBIOLOGY Final Result [facility]-C[facility]AL LABORATORY [address] [place] [address], [place] * XR SPINE CERVICAL 3 VIEWS (12/01/2024 5:03 PM CDT) Anatomical Region Laterality Modality CERVICAL SPINE Computed Radiogr aphy 12/01/2024 8:51 PM CDT Impressions 12/01/2024 8:51 PM CDT 1. No radiographic evidence of acute osseous injury. 2. Mild degenerative changes seen throughout the cervical spine as outlined above. Dictated by Harris Lal MD @ 12/01/2024 8:51:45 PM (Electronically Signed) Narrative 12/01/2024 8:51 PM CDT For Patients: As a result of the Cures Act, medical imaging exams and procedure reports are released immediately into your electronic medical record. You may view this report before your referring provider. If you have questions, please contact your health care provider. INDICATION: Neck pain. FINDINGS: Three views of the cervical spine are submitted. No comparison. The overall stature and alignment of the cervical spine is within normal limits. The prevertebral soft tissues, dens and lateral masses are within normal limits. Diffuse loss of intervertebral disc space height seen throughout the cervical spine with sparing of the C2-3 and C7-T1 levels. Procedure Note Gulshan Lal, - 12/01/2024 For Patients: As a result of the Cures Act, medical imagingexams and procedure reports are released immediately into your electronicmedical record. You may view this report before your referring provider.If you have questions, please contact your health care provider. INDICATION: Neck pain. FINDINGS: Three views of the cervical spine are submitted. No comparison. The overall stature and alignment of the cervical spine is within normallimits. The prevertebral soft tissues, dens and lateral masses are withinnormal limits. Diffuse loss of intervertebral disc space height seenthroughout the cervical spine with sparing of the C2-3 and C7-T1 levels. IMPRESSION: 1. No radiographic evidence of acute osseous injury. 2. Mild degenerative changes seen throughout the cervical spine asoutlined above. Dictated by Harris Lal MD @ 12/01/2024 8:51:45 PM (Electronically Signed) us Facundo Mijares MD GENERAL IMAGING Final Resu lt * XR SHOULDER 3 VIEWS LEFT (12/01/2024 4:58 PM CDT) Anatomical Region Laterality Modality SHOULDERS, SHOULDER L Computed R adiography 12/05/2024 10:1 8 AM CDT Impressions 12/05/2024 10:18 AM CDT 1. No acute osseous injuries or abnormalities are noted. Dictated by Sebastian Cornejo MD @ 12/05/2024 10:18:08 AM Dictated by: Sebastian Cornejo MD @ 12/05/2024 10:18:11 (Electronically Signed) Narrative 12/05/2024 10:18 AM CDT For Patients: As a result of the Cures Act, medical imaging exams and procedure reports are released immediately into your electronic medical record. You may view this report before your referring provider. If you have questions, please contact your health care provider. INDICATION: Chronic left shoulder pain TECHNIQUE: Shoulder radiograph 4 views left COMPARISON: 07/16/2016 FINDINGS: Bone: No acute fractures or aggressive bone lesions are identified. Moderate diffuse osteopenia is present. A suture anchor is noted in the superior humeral head. Joint: Mild osteoarthritis of the glenohumeral joint Is noted without change. Interval tapered resection of the distal clavicle is noted with subsequent widening of the AC joint. Soft tissue: Unremarkable. The visualized hemithorax is unremarkable in appearance. No radiopaque foreign bodies are seen. Procedure Note Sebastian Cornejo MD - 12/05/2024 For Patients: As a result of the Cures Act, medical imagingexams and procedure reports are released immediately into your electronicmedical record. You may view this report before your referring provider.If you have questions, please contact your health care provider. INDICATION: Chronic left shoulder pain TECHNIQUE: Shoulder radiograph 4 views left COMPARISON: 07/16/2016 FINDINGS: Bone: No acute fractures or aggressive bone lesions are identified.Moderate diffuse osteopenia is present. A suture anchor is noted in thesuperior humeral head. Joint: Mild osteoarthritis of the glenohumeral joint Is noted withoutchange. Interval tapered resection of the distal clavicle is noted withsubsequent widening of the AC joint. Soft tissue: Unremarkable. The visualized hemithorax is unremarkable inappearance. No radiopaque foreign bodies are seen. IMPRESSION: 1. No acute osseous injuries or abnormalities are noted. Dictated by Sebastian Cornejo MD @ 12/05/2024 10:18:08 AM Dictated by: Sebastian Cornejo MD @ 12/05/2024 10:18:11 (Electronically Signed) us Facundo Mijares MD GENERAL IMAGING Final Resu lt * XR FEMUR 2 VIEWS RIGHT (12/01/2024 4:58 PM CDT) Anatomical Region Laterality Modality FEMURS, FEMUR R Computed Radiogr aphy 12/06/2024 11:1 1 AM CDT Impressions 12/06/2024 11:11 AM CDT 1. No acute osseous injuries or abnormalities are noted. Dictated by Sebastian Cornejo MD @ 12/06/2024 11:06:47 AM Dictated by: Sebastian Cornejo MD @ 12/06/2024 11:11:05 (Electronically Signed) Narrative 12/06/2024 11:11 AM CDT For Patients: As a result of the Cures Act, medical imaging exams and procedure reports are released immediately into your electronic medical record. You may view this report before your referring provider. If you have questions, please contact your health care provider. INDICATION: Right leg pain TECHNIQUE: Femur radiograph 4 views right COMPARISON: 10/15/2023 FINDINGS: Bone: A metallic ORIF plate of the mid to distal femoral diaphysis is noted. Moderate diffuse osteopenia is present. Joint: A right bipolar hip prosthesis with proximal cerclage wires noted without change. Total knee arthroplasty is partially visualized. No significant joint effusion is seen. Soft tissue: Unremarkable. No radiopaque foreign bodies are seen. Procedure Note Sebastian Cornejo MD - 12/06/2024 For Patients: As a result of the Cures Act, medical imagingexams and procedure reports are released immediately into your electronicmedical record. You may view this report before your referring provider.If you have questions, please contact your health care provider. INDICATION: Right leg pain TECHNIQUE: Femur radiograph 4 views right COMPARISON: 10/15/2023 FINDINGS: Bone: A metallic ORIF plate of the mid to distal femoral diaphysis isnoted. Moderate diffuse osteopenia is present. Joint: A right bipolar hip prosthesis with proximal cerclage wires notedwithout change. Total knee arthroplasty is partially visualized. Nosignificant joint effusion is seen. Soft tissue: Unremarkable. No radiopaque foreign bodies are seen. IMPRESSION: 1. No acute osseous injuries or abnormalities are noted. Dictated by Sebastian Cornejo MD @ 12/06/2024 11:06:47 AM Dictated by: Sebastian Cornejo MD @ 12/06/2024 11:11:05 (Electronically Signed) us Facundo Mijares MD GENERAL IMAGING Final Resu lt * LIPID PANEL W REFLEX MEASURED LDL (10/14/2024 12:34 PM CDT) CHOLESTEROL, TOTAL 181 <200 mg/dL [facility] HDL CHOLESTEROL 63 > OR = 50 mg/dL [facility] TRIGLYCERIDES 132 <150 mg/dL [facility] LDL-CHOLESTEROL 95 mg/dL (calc) [facility] Comment: Reference range: <100 Desirable range <100 mg/dL for primary prevention; <70 mg/dL for patients with CHD or diabetic patients with > or = 2 CHD risk factors. LDL-C is now calculated using the Vincenzo-Lopez calculation, which is a validated novel method providing better accuracy than the Friedewald equation in the estimation of LDL-C. Vincenzo SS et al. DAVID. 2013;310(19): 1411-7800 (http://education.[employer]/faq/ZIR009) CHOL/HDLC RATIO 2.9 <5.0 (calc) [facility] NON HDL CHOLESTEROL 118 <130 mg/dL (calc) [facility] Comment: For patients with diabetes plus 1 major ASCVD risk factor, treating to a non-HDL-C goal of <100 mg/dL (LDL-C of <70 mg/dL) is considered a therapeutic option. Blood BLOOD SPECIMEN / Unknown 10/14/2024 12:34 PM CDT 10/14/2024 12:35 PM CDT us Nivia Bruno MD CHEMISTRY Final Resul t [facility] [address] [place] [address], [place] [phone] [facility] [address] [facility] [address] * XR MAMMO EVA BILAT DIAG (09/15/2024 [...] Dictated by: Walter Haji MD @09/15/2024 3:11:56 PM/dorothy PATIENTS: You will also receive a letter [...] Marques MD MAMMO Final Resul t * IGNITION MECHANIC THIN PREP PAP SCREEN IMAGED (11/04/2023 3:50 PM CDT) Case Report Gynecologic Cytology Report Case: [id number] Authorizing Provider: Corine Guillaume MD Collected: 11/04/2023 1550 Ordering Location: [facility] Received: 11/06/2023 0926 First Screen: Kathy Stephens Specimen: IGNITION MECHANIC ThinPrep Vial Screening, Cervical 11/12/2023 1:05 PM CDT [facility] INTERPRETATION/ RESULT NEGATIVE FOR INTRAEPITHELIAL LESION OR MALIGNANCY (NIL) (none) 11/12/2023 1:05 PM CDT [facility] at 1305 CDT SPECIMEN ADEQUACY Satisfactory for evaluation Endocervical component present 11/12/2023 1:05 PM CDT [facility] [employer] [facility] HPV REQUEST HPV and PAP 11/12/2023 1:05 PM CDT [facility] [employer] [facility] Last Pap Date 11/12/2023 1:05 PM CDT [facility] Comment:09/2017 Last Pap Result NIL 1:05 PM CDT [facility] Abnormal Pap or [place] Bx in last 5 years No 11/12/2023 1:05 PM CDT [facility] Menstrual Status Postmenopausal 11/12/2023 1:05 PM CDT [facility] [place] Bx Done Today No 11/12/2023 1:05 PM CDT [facility] Additional Information 11/12/2023 1:05 PM CDT [facility] Comment: [facility] - [address], [place] [address] Automated Review Successful 11/12/2023 1:05 PM CDT [facility] [employer] [facility] Comment:Specimen processed s uccessfully by automated estate and trust tax principal device, ThinPrep Imaging System, [employer] ANCILLARY TESTING IGNITION MECHANIC HPV Ordered, Please see separate report 11/12/2023 1:05 PM CDT [facility] Note The pap test is a [...] and malignant lesions. 11/12/2023 1:05 PM CDT [facility] Other (Cervical) 11/04/2023 3:50 PM CDT 11/06/2023 9:26 AM CDT us Corine Guillaume MD PATHOLOGY/CYTOLOGY Final R esult [facility] [address] [place] [address], [place] * (ABNORMAL) XR DXA BONE DENSITY [...] to assess therapeutic efficacy. Ann Jay PA-C [facility] 09/30/2023 Narrative 09/30/2023 1:49 PM CDT For Patients: Results are automatically released to your [facility] ([employer]) account once available, in compliance with federal regulations. This means that you may see your results before your provider has had a chance to review them. Please allow 2-3 business days for your provider to comment on the results. XR DXA Bone Mineral Density (BMD) EXAM LOCATION: [facility] [address] [facility] [address] PATIENT NAME: Juliette Brown DATE OF : [...] two scanners are made by the same tableau analyst. PROCEDURE: Dual-energy x-ray absorptiometry performed with routine [...] 26.7%. 10-year probability of hip fracture: 3.2%. us Nivia Bruno MD DEXA Final Resul t * SCAN-COLONOSCOPY (01/28/2022 1:00 PM CDT) Narrative Procedure Note Edison Ceron MD - 01/28/2022 12:02 PM CDT [facility] [address] [facility], [address], [place] [address] Patient Name: Juliette Brown Gender: Female Exam Date: 01/28/2022 Visit Number: [id number] Age: 61 Years 9 Months Date of : 1960 Attending MD: Edison Ceron MD Medical Record#: [id number] ----- Procedure: Colonoscopy Indications: Recent history of [...] Race: White Ethnicity: Not or Preferred Language: Yakut cc: Nivia Bruno MD [facility] [phone] us Edison Ceron MD OTHER Final Resu lt * ANTI HIV 1/2 (06/01/2018 4:02 PM CHILD GUIDANCE COUNSELOR) HIV-1/HIV-2 ANTIBODY Non-Reacti ve Non-Reacti ve 06/01/2018 8:08 PM CHILD GUIDANCE COUNSELOR [facility] Comment:HIV-1 p24 and HIV-1/ HIV-2 Ab not detected. Blood BLOOD SPECIMEN / Unknown Venipuncture / Unknown 06/01/2018 4:02 PM CHILD GUIDANCE COUNSELOR 06/01/2018 4:02 PM CHILD GUIDANCE COUNSELOR us Nivia Bruno MD SEND OUTS Final Resul t [facility] [address] [place] [address], [place] * ANTI HCV (09/30/2017 5:38 PM CDT) Pathologist [facility] HEPATITIS C ANTIBODY Non-React mathieu Non-React mathieu 10/01/2017 2:41 PM CDT [facility] Comment:Antibodies to HCV no t detected; does not exclude the possibility of exposure to HCV. Blood BLOOD SPECIMEN / Unknown Venipuncture / Unknown 09/30/2017 5:38 PM CDT 09/30/2017 5:38 PM CDT us Kourtney GUERRERO SEND OUTS Final Result [facility] 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
--- OUTSIDE RECORDS SUMMARY | 2025-01-20 15:05 | XMS_ITS | Encounter Summary ---
[facility] Organization [facility] Address [address] [address] Care Team Providers Care Automation Test Developer Name Role Phone Needs Pcp, Assignment Primary Care Provider [phone] Encounter Details Date Type Department Care Team (Late st Contact Info) Description 07/16/2019 Lab Requisition [facility] [address] [facility]. [place], [place] [address] Lul Hunter MD [address] [place], [place] [id number] Encounter for surgical aftercare following surgery on [...] organs documented in this encounter Care Teams Automation Test Developer Relationship Specialty Start Date End Date Needs Pcp, [place] [address] PCP - General 02/28/21 documented as of this encounter
--- OUTSIDE RECORDS SUMMARY | 2025-01-20 15:05 | XMS_ITS | CCD ---
Author Name Interface, [id number] Address [address] [place] [address] Oncology Address [address] [place] [address] Reason for Visit Social History Date Name Value 01/08/2025 Sex Female
--- OUTSIDE RECORDS SUMMARY | 2025-01-20 15:05 | XMS_ITS | Clinical Summary ---
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
--- OUTSIDE RECORDS SUMMARY | 2025-01-20 15:05 | XMS_ITS | Encounter Summary ---
Author Organization [facility] Address [address], [place] [address] Care Team Providers Care Roll Reclaimer Name Role Phone Needs Pcp, Assignment Primary Care Provider [phone] Reason for Visit * Auth/Cert Specialty Diagnoses / Procedures Referred By Contac t Referred To Contact Diagnoses Diarrhea of presumed infectious origin Fibromyalgia Diarrhea of presumed infectious origin Fibromyalgia Diarrhea of presumed infectious origin Fibromyalgia Referral ID Status Reason Start Date Expiration Date Visits Re quested Visits Authorized [id number] 1 1 Encounter Details Date Type Department Care Team (Latest Contact Info) Description 07/15/2019 Lab Requisition [facility] [address] [facility] [place] [address] Lul Hunter MD [address] [place], [place] [id number] Enterocolitis due to Clostridium difficile, not specified [...] C.DIFFICILE TOXIN,MOLECULAR DETECTION Routine 07/15/2019 10:00 PM CONSERVATION BIOLOGY PROFESSOR Enterocolitis due to Clostridium difficile, not specified as recurrent documented in this encounter Results * (ABNORMAL) C.Difficile Toxin,Molecular Detection, (07/15/2019 10:00 PM CONSERVATION BIOLOGY PROFESSOR) C.difficile Detected(A ) Not Detected 07/15/2019 11:30 PM CONSERVATION BIOLOGY PROFESSOR [facility] Stool Non-blood Collection / Unknown 07/15/2019 10:00 PM CONSERVATION BIOLOGY PROFESSOR 07/15/2019 10:24 PM CONSERVATION BIOLOGY PROFESSOR Narrative [facility] - 07/15/2019 11:30 PM CONSERVATION BIOLOGY PROFESSOR Methodology: Qualitative real-time PCR assay to detect the Clostridium difficile toxin B gene. us Lul Hunter MD LAB_1 Final Result [facility] [address] [place] [address], [facility] documented in this encounter Visit Diagnoses Diagnosis Enterocolitis due to Clostridium difficile, not specified as recurrent documented in this encounter Care Teams Roll Reclaimer Relationship Specialty Start Date End Date Needs Pcp, [place] [address] PCP - General 02/28/21 documented as of this encounter
--- OUTSIDE RECORDS SUMMARY | 2025-01-20 15:05 | XMS_ITS | Clinical Summary ---
Author Organization [facility] Address [address] [place] [address] Care Team Providers Care Rn Infusion Name Role Phone Needs Pcp, Assignment Primary Care Provider [phone] Source Comments You are receiving this document as you are listed as the primary care provider,follow-up provider, or the patient has been referred to you for consultation.This is in compliance with the Medicare and[facility] EHR Incentive Program,which states Providers who transition their patient to another setting of careor provider of care or refers their patient to another provider of care shouldprovide summary care record for each transition of care or referral. [place] Allergies Active Allergy Reactions Criticality Noted Date Comments Auranofin 12/10/1999 PN: LW Reaction: gold shots-hives Gadolinium Other, see comments 12/10/1999 Other reaction(s): Other (see comments) PN: LW CM1: CONTRAST- nka Reaction : PN: LW CM1: CONTRAST- nka Reaction : Other Anaphylaxis High 12/10/1999 PN: LW Other1: -nka Allergy to Gold Shots Review Food Intolerance 12/10/1999 Gluten sensitive not, intolerant. Medications omega-3 fatty acids (FISH OIL) 1000 MG [...] (OCEAN) 0.65 % nasal solution Place 1 [place] into both nostrils every 2 hours as needed for Congestion. Active bacitracin-polym yxin b (POLYSPORIN) [id number] UNIT/GM ointmentIndicati ons:dry nose Apply topically two [...] (06/14/2019): Added automatically from request for surgery [id number] Sarcoidosis, lung 06/01/2019 Recurrent major depressive disorder [...] Encounters Date Type Department Care Team Description 10/28/2024 Telephone [facility] [place] [address] [place] [address] Tobias Martin MD QUESTIONS, GENERAL from Last 3 Months Immunizations Immunization Administration [...] (145 lb 12.8 oz) 07/16/2019 9:00 PM COMPUTER INSTRUCTOR Height 172.7 cm (5' 8) 07/15/2019 9:30 PM COMPUTER INSTRUCTOR Body Mass Index 22.17 07/15/2019 9:30 PM COMPUTER INSTRUCTOR Plan of Treatment Health Maintenance Due Date Last Done Comments Cervical Cancer Screening Due 1960 Colon Cancer Screening Plan Due 1960 Cholesterol 2004 COVID-19 Vaccine ( season) 2025 06/11/2023, 08/21/2021, 02/21/2021, Additional history exists Influenza Vaccine (#1) 2025 , 03/16/2022, 03/27/2021, Additional history exists Mammogram 09/15/2025 09/15/2024, 07/11, 05/13/2022, Additional history exists Medicare Annual Wellness Visit 10/14/2025 10/14/2024 DTaP/Tdap/Td Vaccine (6 - Tdap) 05/31/2026 05/31/2016, 05/31/2016, 05/31/2016, Additional history exists RSV Vaccine (1 - 1-dose 75+ series) 2034 HepA Vaccine Aged Out 04/27/2008 No longer eligi ble based on patient's age to complete this topic Hep C Screening (Preventive Services) Completed 08/25/2018 Zoster/Shingles Vaccine Completed 08/28/2020, 05/11 Dexa Completed 10/08/2023, 09/09, 09/24/2023, Additional history exists Pneumococcal Vaccine 50+ Yrs Completed , 03/25/2017, 07/11/2009, Additional history exists HepB Vaccine Aged Out [...] this topic Medical Devices Implanted Type Area Web Analyst Device Identifier Shelf Expiration Date Model / Serial / Lot Chip Canc Crouton 30cc - [id number] Implanted:Qty: 1 on 07/07/2019 by Tobias Martin MD at [facility] DEVICE Right: LEG [employer] - [employer] 06/30/2023 [id number] / [id number] / [id number] Chip Canc Crouton 30cc - [id number] Implanted:Qty: 1 on 07/07/2019 by Tobias Martin MD at [facility] DEVICE Right: LEG [employer] - [employer] 06/30/2023 [id number] / [id number] / [id number] Procedures Procedure Name Priority Date/Time Associated Diagnosis Comments BONE DENSITY 10/08/2023 HEPATITIS C ANTIBODY, WITH REFLEX (ANTI-HCV) Routine 08/25/2018 11:24 AM CDT Multiple joint [...] Negative (Non Reactive) 08/25/2018 4:34 PM CDT [facility] Comment:Antibodies to HCV no t detected. Does not exclude the possiblity of exposure to HCV. Blood Venipuncture / Unknown 08/25/2018 11:24 AM CDT 08/25/2018 11:24 AM CDT us Carin Rainey MD LAB_1 Final Resul t [facility] [address] [place], [place] [id number] [place] [address] * MM Mammogram Screening Bilat W CAD [...] Health Maintenance Insurance MEDICARE BCBS MEDICARE SUPPLEMENT MEDICARE BCBS [place] [address] MEDICARE [facility] MEDICARE SUPPLEMENT Advance Directives Documents on File Type Date Recorded Patient Inventory Clerk Expl anation HEALTHCARE DIRECTIVE 07/10/2019 ADVANCE D DIRECTIVE 07/10/2019 * Full Code (Latest Code Status on File) Date Activated Date Inactivated Comments 07/15/2019 9:18 PM 07/20/2019 4:20 PM * Full Code Date Activated Date Inactivated Comments 07/07/2019 4:33 PM 07/10/2019 6:22 PM Care Teams Rn Infusion Relationship Specialty Start Date End Date Needs Pcp, [place] [address] PCP - General 02/28/21
--- NOTE | 2025-01-20 15:23 | CRLHL7_ITS ---
For Patients: As a result of the Century Cures Act, medical imaging exams and procedure reports are released immediately into your electronic medical record. You may view this report before your referring provider. If you have questions, please contact your health care provider. Indication: CHEST PAIN weakness Technique: PA and lateral views of the chest. Comparison: 07/21/2024, 09/17/2021. Findings: Normal cardiomediastinal silhouette. Mild right upper lobe linear opacities. No pleural effusions or visualized pneumothorax. Aoyu-nk-kdmtmnau degenerative changes of the visualized spine. Impression: Mild right upper lobe linear opacities are again seen, which are compatible with scarring. Dictated by Alton Steward MD @ 01/20/2025 3:53:56 PM (Electronically Signed)
[2025-01-20 16:09] LABS: Troponin, Point-of-Care* 0.00 ng/ml (0.01-0.04)
[2025-01-20 16:12] LABS: Hematocrit* 36.4 % (33.0-51.0); Hemoglobin* 12.3 gm/dL (12.0-16.0); Immature Granulocytes Abs Auto 0.00 K/uL (0.00-0.30); Immature Granulocytes Pct Auto 0.0 %; Lymphocytes Absolute Auto 1.25 K/uL (0.90-2.90); Mean Corpuscular HGB Conc 34 gm/dL (32-36); Mean Corpuscular Hemoglobin 32 pg (26-34); Mean Corpuscular Volume 95 fL (80-100); RDW Coefficient of Variation % 12.2 % (11.5-15.5); Red Blood Count* 3.83 m/uL (4.00-5.20); White Blood Count* 5.99 K/uL (4.50-11.00)
[2025-01-20 16:14] LABS: Slide Review Reflex No
[2025-01-20 16:19] LABS: Albumin* 4.0 g/dL (3.3-5.0); Chloride* 103 mmol/L (96-114); Potassium* 4.0 mmol/L (3.6-5.1); Sodium* 134 mmol/L (135-149)
--- NOTE | 2025-01-20 16:21 | ED.GENADULT ---
HPI - General Adult General Chief complaint: Chest Pain Stated complaint: weakness Time Seen by Provider: 01/20/25 15:15 History of Present Illness HPI narrative: 64-year-old female with a history anemia, depression, chronic pain/fibromyalgia, pulmonary sarcoidosis presenting to the ER today by EMS for evaluation of an episode of palpitations and substernal chest pain. She was at a acupuncture visit today getting acupuncture for her back pain. She had been laying on her stomach when she felt her heart began to race. She says she felt her heart racing faster than normal for about tender 15 minutes and then the heart made a couple of pauses ?as if it was trying to reset?. After that she developed some substernal squeezing chest discomfort. With that she was nauseous. 911 was called. Report from paramedics By the time paramedics arrived the racing had been gone. Her initial EKG showed sinus rhythm and no definite STEMI. She received 324 of aspirin. They established an IV. Blood pressure stable. Related Data Home Medications ?Medication ?Instructions ?Recorded ?Confirmed liothyronine 5 mcg tablet 5 mcg PO .B.i.d. 11/21/21 01/10/25 lorazepam 0.5 mg tablet 0.5 mg PO Q12H PRN 12/08/21 01/10/25 melatonin 3 mg capsule 9 mg PO HS 12/08/21 01/10/25 trazodone 50 mg tablet 100 mg PO QHS PRN 01/17/23 01/10/25 buspirone 15 mg tablet 15 mg PO BID 03/25/23 01/10/25 cyclosporine 0.05 % eye drops in a drp ophthalmic (eye) 03/25/23 01/10/25 dropperette lidocaine HCl 2 % mucosal solution PO 03/25/23 01/10/25 (Lidocaine Viscous) tretinoin 0.025 % topical cream 1 applic topical QPM 03/25/23 01/10/25 valacyclovir 1 gram tablet 1,000 mg PO 3XD 03/25/23 01/10/25 varenicline tartrate 0.03 mg/spray intranasal 03/25/23 01/10/25 metered nasal spray (Tyrvaya) cyclobenzaprine 5 mg tablet 5 mg PO QPM PRN 09/17/23 01/10/25 vilazodone 20 mg tablet 20 mg PO DAILY 11/10/23 01/10/25 alirocumab 150 mg/mL subcutaneous mg subcut Q2W 08/25/24 01/10/25 pen injector (Praluent Pen) rosuvastatin 5 mg tablet 5 mg PO DAILY 10/10/24 01/10/25 sumatriptan succinate 25 mg tablet mg PO 10/10/24 01/10/25 Previous Rx's ?Medication ?Instructions ?Recorded Lactobacillus acidophilus 0.5 mg 1 tab PO TIDWM 90 days #90 tabs 12/10/21 (100 million cell) tablet albuterol sulfate 90 mcg/actuation 2 puff inhalation Q4-6H PRN 03/05/23 aerosol inhaler shortness of breath or wheezing #8.5 grams ondansetron HCl 4 mg tablet 4 mg PO Q6H #10 tabs 11/11/23 hydromorphone 2 mg tablet 2 mg PO Q6H PRN pain #8 tabs 07/21/24 clobetasol 0.05 % topical ointment 1 applic topical BID PRN itching 08/18/24 #30 grams estradiol 1 mg tablet 0.5 mg (1/2 x 1 mg) PO QDAY #45 08/25/24 tabs estradiol 10 mcg vaginal tablet 10 mcg vaginal 2XW #24 tabs 08/25/24 (Yuvafem) progesterone micronized 100 mg 100 mg PO QHS #90 caps 08/25/24 capsule ketorolac 10 mg tablet 10 mg PO TID 5 days #15 tabs 10/10/24 Allergies Allergy/AdvReac Type Severity Reaction Status Date / Time auranofin Allergy Verified 01/10/25 09:24 cat dander Allergy Verified 01/10/25 09:24 Gadolinium-Containing Allergy Verified 01/10/25 09:24 Contrast Medi gluten Allergy Verified 01/10/25 09:24 gold keratinate Allergy Verified 01/10/25 09:24 gold sodium thiomalate Allergy Verified 01/10/25 09:24 ketamine Allergy Verified 01/10/25 09:24 lactose Allergy Verified 01/10/25 09:24 Opioids - Morphine Analogues Allergy Verified 01/10/25 09:24 goldshots Allergy Severe Anaphylaxis Uncoded 01/10/25 09:24 [facility] Medical History Herpes zoster ?B02.9 - Zoster without complications (ICD-10) Diverticulitis ?K57.92 - Diverticulitis of intestine, part unspecified, without perforation or abscess without bleeding (ICD-10) Closed T12 fracture ?S22.089A - Unspecified fracture of T11-T12 vertebra, initial encounter for closed fracture (ICD-10) History of Clostridioides difficile colitis ?Z86.19 - Personal history of other infectious and parasitic diseases (ICD-10) History of hypothyroidism ?Z86.39 - Personal history of other endocrine, nutritional and metabolic disease (ICD-10) History of diverticulitis of colon (05/09/11) ?Z87.19 - Personal history of other diseases of the digestive system (ICD-10) History of Clostridioides difficile infection ?Z86.19 - Personal history of other infectious and parasitic diseases (ICD-10) Abscess of sigmoid colon due to diverticulitis ?K57.20 - Diverticulitis of large intestine with perforation and abscess without bleeding (ICD-10) Osteoporosis ?M81.0 - Age-related osteoporosis without current pathological fracture (ICD-10) Sigmoid diverticulitis ?K57.32 - Diverticulitis of large intestine without perforation or abscess without bleeding (ICD-10) History of femur fracture ?Z87.81 - Personal history of (healed) traumatic fracture (ICD-10) Insomnia ?G47.00 - Insomnia, unspecified (ICD-10) Anxiety ?F41.9 - Anxiety disorder, unspecified (ICD-10) Sarcoidosis ?D86.9 - Sarcoidosis, unspecified (ICD-10) Hypothyroidism ?E03.9 - Hypothyroidism, unspecified (ICD-10) Sensorineural hearing loss (SNHL) of both ears ?H90.3 - Sensorineural hearing loss, bilateral (ICD-10) Depression ?F32.A - Depression, unspecified (ICD-10) Chronic fatigue syndrome ?R53.82 - Chronic fatigue, unspecified (ICD-10) 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 - Unspecified juvenile rheumatoid arthritis of unspecified site (ICD-10) Migraines ?G43.909 - Migraine, unspecified, not intractable, without status migrainosus (ICD-10) Diverticulitis of intestine with abscess ?K57.80 - Diverticulitis of intestine, part unspecified, with perforation and abscess without bleeding (ICD-10) Surgical History History of total knee replacement ?Z96.659 - Presence of unspecified artificial knee joint (ICD-10) S/P hammer toe correction ?Z98.890 - Other specified postprocedural states (ICD-10) ?Z87.39 - Personal history of other diseases of the musculoskeletal system and connective tissue (ICD-10) History of repair of rotator cuff ?Z98.890 - Other specified postprocedural states (ICD-10) History of tonsillectomy ?Z90.89 - Acquired absence of other organs (ICD-10) History of total hip arthroplasty ?Z96.649 - Presence of unspecified artificial hip joint (ICD-10) History of bilateral knee arthroplasty ?Z96.653 - Presence of artificial knee joint, bilateral (ICD-10) Family History Father High blood pressure Hyperlipidemia Mother High blood pressure Hyperlipidemia Sister Seizure disorder Social History Narrative: She lives alone in [place]. 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 She does not smoke. She drinks alcohol about once a month. She uses no recreational drugs. She does have a history of chemical dependency. Healthcare power of commonwealth attorney is her sister Denise. Code status is full. Are you following a special diet: Yes (no gluten, lactose intolerent) Highest level of school completed/degree received: Master's degree Smoking Status: Never smoker Do you use any of these nicotine containing products: None Second hand tobacco smoke exposure: No How often do you have a drink containing alcohol: monthly or less AUDIT-C Alcohol total score: 1 Non-prescribed substance use: denies use Caffeine: Yes (coffee 3x weekly) Are you now , , , , never or living with a partner: Social isolation score (0-1 are the most socially isolated patients): 0 Are you currently sexually active: No service: No Exam Narrative: Exam Narrative: Constitutional: Appears well-developed and well-nourished. Alert. Conversant but somewhat anxious. Very polite. Non toxic. HENT: Head: Atraumatic. Nose: Nose normal. Mouth/Throat: Oral mucosa is clear and moist. no trismus. Pharynx normal. Tonsils symmetric. No tonsillar enlargement, erythema, or exudate. Eyes: Conjunctivae normal. EOM normal. Pupils equal, round, and reactive to light. No scleral icterus. Neck: Normal range of motion. Neck supple. No tracheal deviation present. No JVD Cardiovascular: Normal rate, regular rhythm. No gallop. No friction rub. No murmur heard. Symmetric radial and PT artery pulses Pulmonary/Chest: Effort normal. No stridor. No respiratory distress. No wheezes. No rales. No rhonchi . No chest wall tenderness. Abdominal: Soft. No distension. No mass. Mild epigastric tenderness. No rebound. No guarding. Musculoskeletal: RUE: Normal range of motion. No tenderness. No deformity LUE: Normal range of motion. No tenderness. No deformity RLE: Normal range of motion. No edema. No tenderness. No deformity LLE: Normal range of motion. No edema. No tenderness. No deformity Neurological: Alert and oriented to person, place, and time. Normal strength. CN II-VII intact. No sensory deficit. GCS eye subscore is 4. GCS verbal subscore is 5. GCS motor subscore is 6. Normal coordination Skin: Skin is warm and dry. No rash noted. No pallor. Normal capillary refill. Psychiatric: Normal mood. Mildly anxious. Very polite. Const: Vital Signs, click to edit/add: Vital Signs - 24 hr 01/20/25 15:08 Temperature 97.6 F Pulse Rate [Pulse Oximeter] 85 Respiratory Rate 18 Blood Pressure [Ri ght Upper Arm] 124/44 L Pulse Oximetry 98 Oxygen Delivery Me thod Room Air Course Vital Signs Vital signs: Initial Vital Signs Temperature 97.6 F 01/20/25 15:08 Temperature Source Temporal Artery Scan 01/20/25 15:08 Pulse Rate 85 01/20/25 15:08 Respiratory Rate 18 01/20/25 15:08 Blood Pressure 124/44 L 01/20/25 15:08 Blood Pressure Mean 70 01/20/25 15:08 Blood Pressure Position Sitting 01/20/25 15:08 Pulse Oximetry 98 01/20/25 15:08 Oxygen Delivery Method Room Air 01/20/25 15:08 Vital Signs Temperature 97.6 F 01/20/25 15:08 Pulse Rate 85 01/20/25 15:08 Respiratory Rate 18 01/20/25 15:08 Blood Pressure 124/44 L 01/20/25 15:08 Pulse Oximetry 98 01/20/25 15:08 Oxygen Delivery Method Room Air 01/20/25 15:08 Temperature 97.6 F 01/20/25 15:08 Pulse Rate 85 01/20/25 15:08 Respiratory Rate 18 01/20/25 15:08 Blood Pressure 124/44 L 01/20/25 15:08 Pulse Oximetry 98 01/20/25 15:08 Oxygen Delivery Method Room Air 01/20/25 15:08 Medical Decision Making MDM Narrative Medical decision making narrative: This patient presents to the ER today for evaluation of an episode of palpitations, followed by substernal chest pain. Differential was broad. Palpitations: Initial ECG by EMS an initial EKG here in the ER show normal sinus rhythm and no dysrhythmogenic abnormality such as WPW, prolonged QT, Brugada syndrome, and no ischemia. satellite project site monitor while the patient here in the ER showed no dysrhythmia or ectopy. I do think the patient needs outpatient heart monitoring which can be arranged by primary care. Chest pain: We considered possible ACS. Patient are received aspirin by EMS prior to arrival. Initial EKG and troponin are normal. Given time since onset of symptoms, I do think the patient needs repeat troponin testing. I have ordered a repeat troponin for 1725 today. Discussed with my oncoming partner, Dr. Ni who follow up on the results EKG shows no evidence for pericarditis. Clinical presentation not suggestive of myocarditis. Chest x-ray shows no evidence for pneumonia, pneumothorax, pulmonary edema, pleural effusion, rib fracture, cardiomegaly. Mediastinum is normal on the x-ray. The patient has no ripping or tearing pain through to the back and has symmetric pulses on exam, no other acute neuro findings so I doubt aortic dissection. Risk of radiation and contrast exposure would outweigh the benefit of CT angiogram. We considered PE for this patient. I have ordered D-dimer. Results pending at the time of this dictation. No wheezing or bronchospasm to suggest COPD/asthma. No signs of chest wall cellulitis, shingles, injury. She does have some mild epigastric tenderness which could raise concern for intra-abdominal pathology such as pancreatitis, gastritis, peptic ulcer disease, GERD. Labs for these conditions are pending. Discussed with my partner, Dr. Ni at 4:30 p.m.. He will follow-up on the outstanding test results include the D-dimer CMP, lipase, and repeat troponin. He will follow up on of her test results. Clinical impression at the time of sign-out: 1. Palpitation 2. Chest pain Lab Data Labs: Lab Results 01/20/25 01/20/25 Range/Units 15:24 15:55 WBC 5.99 (4.50-11.00) K/uL RBC 3.83 L (4.00-5.20) m/uL Hgb 12.3 (12.0-16.0) gm/dL Hct 36.4 (33.0-51.0) % MCV 95 (80-100) fL MCH 32 (26-34) pg MCHC 34 (32-36) gm/dL RDW Coeff of Chuck 12.2 (11.5-15.5) % Plt Count 198 (140-440) K/uL Neut % (Auto) 72.8 H (42.0-72.0) % Lymph % (Auto) 20.9 (20-44) % Deuel % (Auto) 5.3 (0.0-11.0) % Eos % (Auto) 0.7 (0.0-7.0) % Baso % (Auto) 0.3 (0.0-3.0) % Neut # (Auto) 4.40 (1.7-7.0) K/uL Lymph # (Auto) 1.25 (0.90-2.90) K/uL Deuel # (Auto) 0.30 (0.00-0.90) K/UL Eos # (Auto) 0.04 (0.00-0.50) K/uL Baso # (Auto) 0.02 (0.00-0.30) K/uL Abs Immat Gran (auto) 0.00 (0.00-0.30) K/uL Imm/Tot Granulo (auto) 0.0 % POC Troponin I 0.00 L (0.01-0.04) ng/ml Imaging Data Chest x-ray: Attestation: I have reviewed the pertinent imaging results. Radiologist's impression: Impression: Mild right upper lobe linear opacities are again seen, which are compatible with scarring. ECG Data Attestation: I personally reviewed and interpreted this ECG as follows: Interpretation: Normal sinus rhythm Rate 78 MI interval 150 Normal QRS axis No ST segment elevation or depression. Nonspecific T-wave flattening. Artifact in leads 1 and 3. QT 386, QTC 440 Discharge Plan Discharge Prescriptions: No Action trazodone 50 mg tablet 100 mg PO QHS PRN Tyrvaya 0.03 mg/spray spray, metered, non-aerosol intranasal Patient Comments: [NO ORIGINAL SIG] cyclosporine 0.05 % dropperette ophthalmic (eye) lidocaine HCl [Lidocaine Viscous] 2 % solution PO tretinoin 0.025 % cream 1 applic topical QPM buspirone 15 mg tablet 15 mg PO BID valacyclovir 1 gram tablet 1,000 mg PO 3XD cyclobenzaprine 5 mg tablet 5 mg PO QPM PRN vilazodone 20 mg tablet 20 mg PO DAILY Praluent Pen 150 mg/mL pen injector subcut Q2W estradiol [Yuvafem] 10 mcg tablet 10 mcg vaginal 2XW Qty: 24 3RF estradiol 1 mg tablet 0.5 mg PO QDAY Qty: 45 3RF Rx Instructions: Take 1/2 tab (0.5 mg) daily. progesterone micronized 100 mg capsule 100 mg PO QHS Qty: 90 3RF albuterol sulfate 90 mcg/actuation HFA aerosol inhaler 2 puff inhalation Q4-6H PRN (Reason: shortness of breath or wheezing) Qty: 8.5 0RF ondansetron HCl 4 mg tablet 4 mg PO Q6H Qty: 10 0RF hydromorphone 2 mg tablet 2 mg PO Q6H PRN (Reason: pain) Qty: 8 0RF liothyronine 5 mcg tablet 5 mcg PO .B.i.d. lorazepam 0.5 mg tablet 0.5 mg PO Q12H PRN melatonin 3 mg capsule 9 mg PO HS Lactobacillus acidophilus 0.5 mg (100 million cell) Tablet 1 tab PO TIDWM 90 Days Qty: 90 0RF sumatriptan succinate 25 mg tablet PO rosuvastatin 5 mg tablet 5 mg PO DAILY ketorolac 10 mg tablet 10 mg PO TID 5 Days Qty: 15 0RF clobetasol 0.05 % ointment 1 applic topical BID PRN (Reason: itching) Qty: 30 2RF Follow Up/Referrals: Nivia Bruno MD [Primary Care Provider, Family Practice]
--- OUTSIDE RECORDS SUMMARY | 2025-01-20 16:21 | XMS_ITS | Clinical Summary ---
Author Organization [facility] Address [address] [place] [address] , [address] [place] [address] Phone Care Team Providers Care Civil Engineering Director Name Role Phone 7CareTeamCoordinator, 7CareTeamCoordinator Unava ilable Unavailable Conditions or Problems Problem Name Problem Code Onset Date Status Entry Date Provider Comment Standard Description Annotate Myalgia of auxiliary muscles, head and neck 34715332 (SNOMED CT) 06/27 Active 06/27 Jina Johnson DNP,HOOP COILING MACHINE OPERATOR,CN P Muscle pain Hemifacial spasm R 17775959 (SNOMED CT) 08/10 Active 08/10 Norberto Miller Jr, MD Hemifacial spasm Facial pain, atypical 63279395 (SNOMED CT) 08/10 Active 08/10 Norberto Miller Jr, MD Atypical facial pain 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), right 64254805 (SNOMED CT) 08/10 Active 08/10 Norberto Miller Jr, MD Arthritis of temporomandibul ar joint Cervical spasm 30574495 (SNOMED CT) 08/10 Active 08/10 Norberto Miller Jr, MD Muscle spasm of head and/or neck Juvenile rheumatoid arthritis 554862112 (SNOMED CT) 08/10 Active 08/10 Norberto Miller [...] limb movement disorder (moderate; 15/hr; most w/arousals) 747338499 (SNOMED CT) 11/01 Inactive 11/03 Norberto Miller Jr, MD Periodic limb movement disorder 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 (ICD-10-CM ) 09/20 Active 09/20 Norberto Miller Jr, MD Sleep disorder, unspecified Fatigue 22325226 (SNOMED CT) 09/20 Active 09/20 Norberto Miller Jr, MD Fatigue Paresthesia of bilateral legs 29403898 (SNOMED CT) 11/10 Active 11/10 Regan Santiago MD Paresthesia Anxiety, generalized F41.1 (ICD-10-CM ) 01/17 Active 01/17 Jesika Diallo PhD Generalized anxiety disorder Restless leg syndrome (PLMS 15/hr) G25.81 (ICD-10-CM ) 09/04 Active 09/04 Norberto Miller Jr, MD Restless legs syndrome Sleep disturbance , nos 06957188 (SNOMED CT) 09/04 Inactive 09/04 Norberto Miller Jr, MD Dyssomnia 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 (ICD-10-CM ) 09/04 Active 09/04 Norberto Miller Jr, MD Insomnia, unspecified Snoring 45477302 (SNOMED CT) 09/04 Active 09/04 Norberto Miller Jr, MD Snoring Restless leg syndrome 07884311 (SNOMED CT) 09/04 Inactive 09/04 Norberto Miller Jr, MD Restless legs syndrome 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 (ICD-10-CM ) 09/04 Active 09/04 Norberto Milelr Jr, MD Abnormal level of blood mineral traumatic brain injury, initial encounter S06.309A (ICD-10-CM ) 08/02 Active 08/07 Zuleyma Ly 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, initial encounter Hypothyroid ism 52842307 (SNOMED CT) 08/02 Active 08/07 Zuleyma Ly Hypothyroidism depression 94253574 (SNOMED CT) 08/02 Active 08/07 Zuleyma Ly Depressive disorder Memory problems R41.3 (ICD-10-CM ) 08/02 Active 08/07 Zuleyma Ly Other amnesia Medications Medication Instructions Start Date Stop Date Generic Name NDC Provider CYCLOBENZAPRINE HCL 5 MG TABS Take 1/2-1 tablet by mouth every night at bedtime as directed start with 1/2 tab 11/09 cyclobenzaprine [id number] Isabel Purdy RN CYCLOBENZAPRINE HCL 5 MG TABS TAKE ONE-HALF TO ONE TABLET (2.5-5 MG) BY MOUTH EVERY NIGHT AT BEDTIME DIRECTED. START WITH ONE-HALF TABLET (2.5 MG). cyclobenzaprine 81638040359 Norberto Miller Jr, MD ESCITALOPRAM OXALATE 20 MG TABS 12/10 escitalopram oxalate 41561452435 Norberto Miller Jr, MD LORAZEPAM 0.5 MG TABS 12/10 lorazepam 50605303965 Norberto Miller Jr, MD TRETINOIN 0.025 % CREA 12/10 tretinoin 70146868210 Norberto Miller Jr, MD MELATONIN 10 MG TABS 1 by mouth every night 12/10 melatonin-lemon balm leaf extr 18213700775 Norberto Miller Jr, MD TRIAMCINOLONE ACETONIDE 0.1 % CREA 12/10 triamcinolone acetonide 65928596693 Norberto Miller Jr, MD SUMATRIPTAN SUCCINATE 25 MG TABS 12/10 sumatriptan succinate 14743280175 Norberto Miller Jr, MD BUSPIRONE HCL 15 MG TABS 12/10 buspirone 45900567958 Norberto Miller Jr, MD DIPHENOXYLATE-ATRO PINE 2.5-0.025 MG TABS 12/10 diphenoxylate-atr opine 21677425824 Norberto Miller Jr, MD TYRVAYA 0.03 MG/ACT SOLN 12/10 varenicline 38686667992 Norberto Miller Jr, MD ESCITALOPRAM OXALATE 10 MG TABS 12/10 escitalopram oxalate 82705872484 Norberto Miller Jr, MD LIDOCAINE VISCOUS HCL 2 % SOLN 12/10 lidocaine hcl 89115763728 Norberto Miller Jr, MD LIOTHYRONINE SODIUM 5 MCG TABS 12/10 liothyronine 24333641388 Norberto Miller Jr, MD HYDROMORPHONE HCL 2 MG TABS 12/10 hydromorphone 22543535288 Norberto Miller Jr, MD ROPINIROLE HCL 0.25 MG TABS 12/10 ropinirole 75845829498 Norberto Miller Jr, MD POLYMYXIN B-TRIMETHOPRIM 15608-4.1 UNIT/ML-% SOLN 12/10 polymyxin b sulf-trimethoprim 44035035072 Norberto Miller Jr, MD YUVAFEM 10 MCG TABS 12/10 estradiol 05540501853 Norberto Miller Jr, MD SULFAMETHOXAZOLE-T RIMETHOPRIM 800-160 MG TABS 12/10 sulfamethoxazole- trimethoprim 79522839460 Norberto Miller Jr, MD VALACYCLOVIR HCL 1 GM TABS 12/10 valacyclovir 06702052330 Norberto Miller Jr, MD LIDOCAINE 5 % PTCH lidocaine 98230358377 Norberto Miller Jr, MD TRIAMCINOLONE ACETONIDE 0.1 % PSTE triamcinolone acetonide 63181224753 Norberto Miller Jr, MD PROGESTERONE 100 MG CAPS TAKE ONE CAPSULE BY MOUTH AT BEDTIME* progesterone micronized 70166284802 Norberto Miller Jr, MD ESTRADIOL 1 MG TABS estradiol 20715072833 Norberto Miller Jr, MD DIPHENOXYLATE-ATRO PINE 2.5-0.025 MG TABS diphenoxylate-at r opine 61980493730 Norberto Miller Jr, MD LIOTHYRONINE SODIUM 5 MCG TABS liothyronine 18184608918 Norberto Miller Jr, MD MELOXICAM 15 MG TABS meloxicam 63349312793 Norberto Miller Jr, MD ONDANSETRON HCL 4 MG TABS ondansetron hcl 60183967885 Norberto Miller Jr, MD AMOXICILLIN 500 MG CAPS amoxicillin 33210547916 Norberto Miller Jr, MD HYDROMORPHONE HCL 2 MG TABS hydromorphone 45694014143 Norberto Miller Jr, MD YUVAFEM 10 MCG TABS estradiol 93732133270 Norberto Miller Jr, MD VILAZODONE HCL 20 MG TABS vilazodone 80912751990 Norberto Miller Jr, MD VILAZODONE HCL 10 MG TABS vilazodone 94669081453 Norberto Miller Jr, MD ESCITALOPRAM OXALATE 20 MG TABS escitalopram oxalate 47952582033 Norberto Miller Jr, MD BUSPIRONE HCL 15 MG TABS buspirone 19214720113 Norberto Miller Jr, MD TRAZODONE HCL 50 MG TABS trazodone 89446759184 Norberto Miller Jr, MD PREDNISONE 20 MG TABS prednisone 63130096951 Norberto Miller Jr, MD PROPRANOLOL HCL 20 MG TABS 08/10 propranolol 92558111041 Norberto Miller Jr, MD HYDROMORPHONE HCL 2 MG TABS 12/10 hydromorphone 67750617261 Norberto Miller Jr, MD ROPINIROLE HCL 0.25 MG TABS 11/19 ropinirole 66658300504 Norberto Miller Jr, MD ESCITALOPRAM OXALATE 20 MG TABS 12/10 escitalopram oxalate 04362091801 Norberto Miller Jr, MD TYRVAYA 0.03 MG/ACT SOLN 12/10 varenicline 39615126332 Norberto Miller Jr, MD YUVAFEM 10 MCG TABS 12/10 estradiol 20259738666 Norberto Miller Jr, MD CYCLOBENZAPRINE HCL 5 MG TABS Take 1/2-1 tablet by mouth every night at bedtime as directed start with 1/2 tab 11/19 cyclobenzaprine 39488253882 Kelle Janie YUEN ESCITALOPRAM OXALATE 10 MG TABS 12/23 escitalopram oxalate 19077143422 Norberto Miller Jr, MD DULOXETINE HCL 30 MG CPEP 1 every morning 12/23 duloxetine 38974201427 Norberto Miller Jr, MD BUSPIRONE HCL 5 MG TABS 1 twice a day 12/23 buspirone 51132252410 Norberto Miller Jr, MD MELATONIN 10 MG TABS 1 by mouth every night 12/10 melatonin-lemon balm leaf extr 80158228441 Norberto Miller Jr, MD TRAZODONE HCL 50 MG TABS Prescribed by Family 12/23 TRAZODONE HCL Norberto Miller Jr, MD BUSPIRONE HCL 15 MG TABS 12/10 buspirone 54431110301 Norberto Miller Jr, MD ESCITALOPRAM OXALATE 10 MG TABS 12/10 escitalopram oxalate 64610687474 Norberto Miller Jr, MD LORAZEPAM 0.5 MG TABS 12/10 lorazepam 38120120410 Norberto Miller Jr, MD TRIAMCINOLONE ACETONIDE 0.1 % CREA 12/10 triamcinolone acetonide 65386895524 Norberto Miller Jr, MD SULFAMETHOXAZOLE-T RIMETHOPRIM 800-160 MG TABS 12/10 sulfamethoxazole- trimethoprim 24128111017 Norberto Miller Jr, MD PROPRANOLOL HCL 20 MG TABS 11/19 propranolol 24689186377 Norberto Miller Jr, MD LIOTHYRONINE SODIUM 5 MCG TABS 11/19 liothyronine 04537629001 Norberto Miller Jr, MD POLYMYXIN B-TRIMETHOPRIM 99937-8.1 UNIT/ML-% SOLN 09/17 polymyxin b sulf-trimethoprim 30392995746 Norberto Miller Jr, MD DIPHENOXYLATE-ATRO PINE 2.5-0.025 MG TABS 11/19 diphenoxylate-atr opine 41654417996 Norberto Miller Jr, MD LIDOCAINE VISCOUS HCL 2 % SOLN 12/10 lidocaine hcl 58159044215 Norberto Miller Jr, MD TRETINOIN 0.025 % CREA 11/19 tretinoin 63973916304 Norbetro Miller Jr, MD SUMATRIPTAN SUCCINATE 25 MG TABS 12/10 sumatriptan succinate 44296086044 Norberto Miller Jr, MD VALACYCLOVIR HCL 1 GM TABS 12/10 valacyclovir 71305406565 Norberto Miller Jr, MD ESCITALOPRAM OXALATE 10 MG TABS 12/23 escitalopram oxalate 21525637842 Belle Jimenez PA-C MELATONIN 10 MG TABS 1 orally QHS 12/23 MELATONIN 20799284413 Norberto Miller Jr, MD CLOBETASOL PROPIONATE 0.05 % CREA Prescribed by Family SALAZAR 09/20 CLOBETASOL PROPIONATE 26448199344 Norberto Miller Jr, MD BETAMETHASONE VALERATE 0.1 % LOTN Prescribed by Family SALAZAR 09/20 BETAMETHASONE VALERATE 69561621704 Norberto Miller Jr, MD CEFUROXIME AXETIL 500 MG TABS Prescribed by Family SALAZAR 09/20 CEFUROXIME AXETIL 79628763649 Norberto Miller Jr, MD ARMOUR THYROID 30 MG TABS Prescribed by Family SALAZAR 09/20 THYROID 01032337412 Norberto Miller Jr, MD SERTRALINE HCL 100 MG TABS Prescribed by Family SALAZAR 09/20 SERTRALINE HCL 62915948010 Norberto Miller Jr, MD WELLBUTRIN XL 150 MG [id number] Prescribed by Family SALAZAR 09/20 BUPROPION HCL 38636420422 Norberto Miller Jr, MD DULOXETINE HCL 30 MG CPEP 1 QAM 12/23 DULOXETINE HCL 43277292402 Norberto Miller Jr, MD BUSPIRONE HCL 5 MG TABS 1 BID 12/23 BUSPIRONE HCL 19878318486 Norberto Miller Jr, MD GABAPENTIN 300 MG CAPS Prescribed by Family SALAZAR GABAPENTIN 52713679969 Norberto Miller Jr, MD CEFUROXIME AXETIL 500 MG TABS Prescribed by Family SALAZAR 08/24 CEFUROXIME AXETIL 04571570557 Zuleyma Ly ARMOUR THYROID 30 MG TABS Prescribed by Family SALAZAR 09/20 THYROID 14539948981 Zuleyma Ly GABAPENTIN 300 MG CAPS Prescribed by Family SALAZAR 11/19 GABAPENTIN 31168644364 Zuleyma Ly SERTRALINE HCL 100 MG TABS Prescribed by Family SALAZAR 09/20 SERTRALINE HCL 51404048572 Zuleyma Ly WELLBUTRIN XL 150 MG [id number] Prescribed by Family SALAZAR 09/20 BUPROPION HCL 44040530910 Zuleyma Ly TRAZODONE HCL 50 MG TABS Prescribed by Family SALAZAR 12/23 TRAZODONE HCL 53078347485 Zuleyma Ly BETAMETHASONE VALERATE 0.1 % LOTN Prescribed by Family SALAZAR 11/19 BETAMETHASONE VALERATE 25298761209 Zuleyma Ly CLOBETASOL PROPIONATE 0.05 % CREA Prescribed by Family SALAZAR 08/24 CLOBETASOL PROPIONATE 23840162831 Zuleyma Ly Medications Administered No information available. [...] Appointment 03:30 PM Kelle soto PA-C, [address] [facility], [address], [place], [address], Referral Dental Device Re ferral Pending order [...] Procedures Code Procedure Name Date Entry Date 88221/69320/04953&53 Occipital Nerve Blo ck and Trigger Point Injections CPT-42192 Trigger point inj (3+ musc) CPT-J1100 Dexamethasone -- 10 mg 04/26 ORDERS Follow up [facility] telemedicine 2 ORDERS Dental Device Referral 12/10 ORDERS Sleep Hygiene Tips Handout 2 ORDERS Insomnia Handout ORDERS Patient Instructions ORDERS Patient Instructions ORDERS Patient Instructions SCT-[id number] Other Referral ORDERS Instructions for Staff 09/02 ORDERS Follow up Sleep [facility] telemedicine ORDERS Patient Instructions CPT-62730 Trigger point inj (3+ musc) CPT-J1100 Dexamethasone -- 10 mg 08/10 [id number] Other Radiology 40256/36846/73040&53 Occipital Nerve Blo ck and Trigger Point Injections ORDERS Follow up Extended telemedicine 1 ORDERS Patient Instructions SCT-[id number] Other Referral SCT-[id number] Psychiatry Referral ORDERS Pain Clinic ORDERS Insomnia Handout ORDERS Sleep Hygiene Tips Handout 2 ORDERS Patient Instructions CPT-28435 PSG, 4+ parameters w / tech - 6yrs or older (39509) ORDERS Vitamin B12 ORDERS Vitamin D 25 Hydroxy ORDERS Patient Instructions SCT-[id number] Other Referral SCT-[id number] Psychology Referral ORDERS Instructions for Staff 11/28 ORDERS Lyme Total Ab w/Refl ex (reflex to Western Blot) ORDERS TSH ORDERS 2 weeks Actigraphy W atch w/ Sleep Journals (Call Sleep Lab) ORDERS Ferritin Serum ORDERS Overnight PSG - Sleep Study Overnight 07/17/19 ORDERS Telemedicine Follow up 11/08 ORDERS Ferritin Serum SCT-[id number] Documentation of current medicatio ns ORDERS Other Handout ORDERS Patient Instructions ORDERS Patient Instructions ORDERS Instructions for Staff 11/08 ORDERS Telemedicine Follow up 09/20 CPT-09160 PSG, 4+ parameters w / tech - 6yrs or older (36710) ORDERS Sleep Study - [facility]-[id number] Documentation of current medicatio ns ORDERS T4 SCT-[id number] Other Referral ORDERS Lyme Total Ab w/Refl [...] TSH ORDERS Vitamin B12 ORDERS T3 Free CPT-44719 Nerve Conduction 7-8 studies CPT-76288 EMG with NCS (5+ muscles) - 1 limb 11/10 SCT-[id number] Documentation of current medicatio ns ORDERS Ferritin Serum ORDERS Patient Instructions ORDERS Other Test ORDERS Follow up ORDERS Vitamin B12 CPT-28926 Neuropsych assmnt w/ prov 4 hr CPT-8396877 Neuropsych assmnt w/ tech 3 hr ORDERS Follow up ORDERS Patient Instructions SCT-[id number] Documentation of current medicatio ns ORDERS Follow up ORDERS Patient Instructions SCT-[id number] Other Test CPT-41811 PSG, 4+ parameters w / tech - 6yrs or older (33662) CPT-17990 MRI Brain W/O SCT-[id number] Documentation of current medicatio ns SCT-146631155 Other Test SCT-[id number] Documentation of current medicatio ns ORDERS Ferritin Serum SCT-[id number] Other Referral ORDERS Follow up SCT-652208229 Other Test SCT-192736367 Other Referral [facility]-[id number] Documentation of current medicatio ns Vital Signs [...]
--- OUTSIDE RECORDS SUMMARY | 2025-01-20 16:21 | XMS_ITS | CCD ---
Author Name Interface, [id number] lity Address [address] [place] [address] Oncology Address [address] [place] [address] Reason for Visit Social History Date Name Value 01/08/2025 Sex Female
--- OUTSIDE RECORDS SUMMARY | 2025-01-20 16:21 | XMS_ITS | CCD ---
Author Name Interface, [id number] lity Address [address] [place] [address] Oncology Address [address] [place] [address] Reason for Visit Social History Date Name Value 01/08/2025 Sex Female
[2025-01-20 16:22] LABS: Alanine Aminotransferase* 20 U/L (4-35); Alkaline Phosphatase* 51 U/L (40-150); Anion Gap 5 mEq/L (7-15); Aspartate Amino Transferase* 31 U/L (12-35); Bilirubin Total* 0.3 mg/dL (0.1-1.5); Blood Urea Nitrogen* 12 mg/dL (7-30); Calcium* 8.7 mg/dL (8.4-10.6); Carbon Dioxide* 26 mmol/L (20-32); Creatinine* 0.8 mg/dL (0.5-1.5); Est. Creatinine Clearance* 44.36; Estimated Glomerular Filt Rate 82 ml/min; Glucose* 109 mg/dL (60-115); Total Protein* 6.4 g/dL (6.0-8.3)
[2025-01-20 16:31] LABS: D Dimer Quantitative* < 0.27 ug/ml (0.00-0.50)
== END 2025-01-20 19:52 | disposition home or self-care (01) ==
PROVIDERS: Emergency Medicine; Emergency Provider Student in an Organized Health Care Education/Training Program; PCP Family Medicine
DX: R07.9 Chest pain, unspecified (principal); R00.2 Palpitations
CPT/HCPCS: 36415; 71046; 80053; 83690; 84484; 85025; 85379; 96374; 99283; 99284; J1885

== ENCOUNTER 2025-02-05 14:57 | Outpatient (CLI) | payer MEDICARE, BC, SELFPAY | END 2025-02-05 14:58 | disposition home or self-care (01) | LOC: AMB 02-09 06:12 | PROVIDERS: PCP Family Medicine; Visit Provider Internal Medicine | DX: R07.89 Other chest pain (principal); I49.9 Cardiac arrhythmia, unspecified | CPT/HCPCS: A0425; A0433 ==

== ENCOUNTER 2025-02-05 15:25 | Emergency (ER) | payer MEDICARE, BC, SELFPAY ==
--- OUTSIDE RECORDS SUMMARY | 2015-03-31 08:33 | XMS_ITS | Continuity of Care Document ---
Author Organization [facility] Address [address] [address] Care Team Providers Care Remelt Pan Tank Operator Name Role Phone [place], [place] Unavailable Unav ailable Procedures Procedure Date Colono Pt Doc Pt W/o Advance Directives Directive Yes / No Effective Date File Name No Information Encounters Encounter Description Practice Location Reason(s) For Visit Diagnoses Date Provider Providers Copied on Encounter [facility], [address] [address], [place], [place], [id number], [facility] No Information [facility]. [address] [address], [place], [place], [id number], . tel:[phone] Family History Family Member Type Diagnosis Age At Onset No Information Payers Payer name Insurance type Covered constitution party ID Authoriza tion(s) No Information Social History Type Description Quantity Date Captured Comments Sex Female Smoking Status No Information Chief Complaint And Reason For Visit No Information Reason For Referral Reason For Referral No Information History Of Present Illness Encounter Date Complaint History Of Prese nt Illness No Information Functional Status Date Functional Assessmen t No Information Instructions Date Instruction Additional Infor mation No Information Assessments Type Assessment Date No Information Patient Care Teams Name Effective Dates (start - stop) Status Members No Information
--- OUTSIDE RECORDS SUMMARY | 2015-03-31 08:33 | XMS_ITS | Continuity of Care Document ---
Author Organization [facility] Address [address] [address] [place] [address] Care Team Providers Care Financial Administrator Name Role Phone [place], [place] Unavailable Unav ailable Procedures Procedure Date Colono Pt Doc Pt W/o Advance Directives Directive Yes / No Effective Date File Name No Information Encounters Encounter Description Practice Location Reason(s) For Visit Diagnoses Date Provider Providers Copied on Encounter [facility], [address] [address], [place], [place], [id number], [facility] No Information [facility]. [address] [address], [place], [place], [id number], . tel:[phone] Family History Family Member Type Diagnosis Age At Onset No Information Payers Payer name Insurance type Covered republican ID Authoriza tion(s) No Information Social History [...]
--- OUTSIDE RECORDS SUMMARY | 2024-09-16 10:04 | XMS_ITS | Continuity of Care Document ---
Author Organization [facility] rosa maria Address [address] [place] [address] Phone Care Team Providers Care Senior Care Manager Name Role Phone Will Leif CARLTON Unavailable [...] Diagnoses Date Provider Providers Copied on Encounter [facility], [address] [place] [address], [id number] , [place] tel: [phone] [facility] No Information 5 Jaleel Yadav. [address] [place] [address] [place], [id number] , [place]. tel: [phone] OFFICE/OUTPA TIENT VISIT, [facility] Pain [facility], [address] [place] [address] [place], [place], [id number] , [place] tel: [phone] [facility] right LE pain (chief complaint) Causalgia of right lower limbLong term (current) use of opiate analgesicLow back pain, unspecifiedPain in left shoulder 4 Toribio Iraheta. [address] [place], [place] [address], [id number] , [place]. tel: [phone] Referring Provider: Leif Walsh, [address] [place], [place] [address] [place], [address] . tel:[phone] [facility] Pain [facility], [address] [place] [address], [id number] , [place] tel: [phone] [facility] No Information Nolan Gilberto. [employer], [address], [place], [address], [place]. tel: [phone] OFFICE/OUTPA TIENT VISIT, [facility], [address] [place] [address], [id number] , [place] tel: [phone] [facility] Leg Pain (chief complaint) Encounter for therapeutic drug level monitoringLong term (current) use of opiate analgesicLow back pain, unspecifiedPain in left shoulderEncounter for screening for other disorderCausalgia of right lower limb 1 Nolan Gilberto. [employer], [address], [place], [address], [place]. tel: [phone] Referring Provider: Leif Walsh, [address] [place], [place] [address] [place], [address] . tel:[phone] OFFICE/OUTPA TIENT VISIT, [facility], [address] [facility] [place], [id number] , [place] tel:[phone] [facility] [place] back and hip pain (chief complaint) LumbagoCervicalgia 4 Scout Ortiz. [address] [facility] [place], [id number] , [place]. tel: [phone] Referring Provider: Leif Walsh, [address] [facility] [place], [address] . tel:[phone] Family History Family Member Type Diagnosis Age At Onset Father Problem (finding) back issues Payers Payer name Insurance type Covered alliance party ID Maci hampton(s) Medicare MB [id number] [employer] Gold Supp DON'TUSE BL [id number] Social History Type Description Quantity Date Captured [...] Goal Weight. Due on d ue Goal CAN MARKER Scanned. Due on 025 due Goal Height. Due on d ue Goal FIT-DNA. Due on due Goal Zoster vaccine (1st). Due on due Goal Tobacco screening. Due on Oc due Goal Tobacco Use. Due on 025 due Goal Hepatitis C screening. Due o n due Goal [place] Paperwork. Due on due Goal Creatinine. Due [...] use screening . Due on due Goal CAN MARKER Scanned. Due on 024 due Goal PHQ-9. Due on du e Goal HPV. Due on due Goal Weight. Due on d ue Goal Update Social History. Due o n due Goal FIT-DNA. Due on due Goal OARS. Due on due Goal Hepatitis C screening. Due o n due Goal [place] Paperwork. Due on due Goal FIT. Due on due Goal Lipid panel. Due on due Goal Creatinine. Due on due Goal Order Annual PT. Due on due Goal UDT. Due on due Goal CT-Colonography. Due on due Goal Tobacco Use. Due on due Goal AST (SGOT). Due on due Goal AST (SGOT). Due on due Goal Creatinine. Due on due Goal CAN MARKER Scanned. Due on due Goal Order Annual PT. Due on due Goal [place] Paperwork. Due on due Goal ALT (SGPT). Due on due Goal UDT. Due on due Goal OARS. Due on due Goal Order Annual PT. Due on due Goal UDT. Due on due Goal ALT (SGPT). Due on due Goal CAN MARKER Scanned. Due on due Goal [place] Paperwork. Due on due Goal Creatinine. 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 stable. 11/18. - Reports fracturing her R femur in 2018.- Chronic neck and BL shoulder pain. Stable. 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 - Chronic left elbow pain. Stable. 09/18.- [...] pain referred by Dr. Tobias Martin through [facility]. This pain began after falling on ice and fracturing her R femur in 2018. [facility] did her initial trauma surgery at the time. Dr. Martin then completed bone grafting on her right femur recently and believes that her new femur hardware may be irritating her R hip hardware from a hip replacement in 1995. Denies any leg numbness or tingling and endorses swelling in her R thigh. She is following up at [place] when she is able to schedule. Pain is described as aching and stiff. Pain averages 7/10.In addition, she c/o neck and lower back pain that she believes is linked to a difference in leg lengths. Denies any lower back surgeries. 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 She has tried PT [...] RX on 05/08/[address] Mijares at [facility]. She takes 1-2 Dilaudid per month.Mrs. Brown is interested in pain management and medical cannabis certification through [facility]. No other concerns today. Functional Status Date Functional Assessmen t No Information Instructions Date Instruction Additional Infor mation Continue current medication Reviewed medications New medication is prescribed Follow exercise program Depression Screen Oswestry Score Assessments Type Assessment Date No Information Patient Care Teams Name Effective Dates (start - stop) Status Members No Information
--- OUTSIDE RECORDS SUMMARY | 2024-09-16 10:04 | XMS_ITS | Continuity of Care Document ---
Author Organization [facility] rosa maria Address [address] [place] [phone] Phone Care Team Providers Care Electric Motor Control Assembler Name Role Phone Will Leif CARLTON Unavailable [...] Date Provider Providers Copied on Encounter [facility], [address] [place] [address], [id number] , [place] tel: [phone] [facility] No Information 5 Jaleel Yadav. [address] [place] [address] [place], [id number] , [place]. tel: [phone] OFFICE/OUTPA TIENT VISIT, [facility], [address] [place] [address] [place], [place], [id number] , [place] tel: [phone] [facility] right LE pain (chief complaint) Causalgia of right lower limbLong term (current) use of opiate analgesicLow back pain, unspecifiedPain in left shoulder 4 Toribio Iraheta. [address] [place], [place] [address], [id number] , [place]. tel: [phone] Referring Provider: Leif Walsh, [address] [place], [place] [address] [place], [address] . tel:[phone] [facility], [address] [place] [address], [id number] , [place] tel: [phone] [facility] No Information Nolan Gilberto. [employer], [address], [place], [address], [place]. tel: [phone] OFFICE/OUTPA TIENT VISIT, [facility], [address] [place] [address], [id number] , [place] tel: [phone] [facility] Leg Pain (chief complaint) Encounter for therapeutic drug level monitoringLong term (current) use of opiate analgesicLow back pain, unspecifiedPain in left shoulderEncounter for screening for other disorderCausalgia of right lower limb 1 Nolan Gilberto. [employer], [address], [place], [address], [place]. tel: [phone] Referring Provider: Leif Walsh, [address] [place], [place] [address] [place], [address] . tel:[phone] OFFICE/OUTPA TIENT VISIT, [facility], [address] [facility] [place], [id number] , [place] tel:[phone] [facility] [place] back and hip pain (chief complaint) LumbagoCervicalgia 4 Scout rOtiz. [address] [facility] [place], [id number] , [place]. [phone] Referring Provider: Leif Walsh, [address] [facility] [place], [address] . tel:[phone] Family History Family Member Type Diagnosis Age At Onset Father Problem (finding) back issues Payers Payer name Insurance type Covered green party ID Maci hampton(s) Medicare [id number] [employer] Senior Gold Supp DON'TUSE BL [id number] Social History Type Description Quantity Date Captured [...] Goal Weight. Due on d ue Goal RESEARCH QUALITY ASSURANCE ANALYST Scanned. Due on due Goal Height. Due on d ue Goal FIT-DNA. Due on due Goal Zoster vaccine (1st). Due on due Goal Tobacco screening. Due on Oc due Goal Tobacco Use. Due on due Goal Hepatitis C screening. Due o n due Goal PAPER DELIVERER Paperwork. Due on due Goal Creatinine. Due on due Goal CT-Colonography. Due on due Goal PHQ-9. Due on du e Goal Unhealthy drug use screening . Due on due Goal HPV. Due on due Goal Update Social History. Due o n due Goal Medication Reconciliation. D ue on due Goal FIT. Due on due Goal OARS. Due on due Goal UDT. Due on due Goal AST (SGOT). Due on due Goal Review Allergy List. Due on due Goal ALT (SGPT). Due on due Goal CT-Colonography. Due on due Goal Tobacco Use. Due on due Goal AST (SGOT). Due on due Goal UDT. Due on due Goal Order Annual PT. Due on due Goal Creatinine. Due on due Goal Lipid panel. Due on due Goal FIT. Due on due Goal PAPER DELIVERER Paperwork. Due on due Goal Hepatitis C screening. Due o n due Goal OARS. Due on due Goal FIT-DNA. Due on due Goal Update Social History. Due o n due Goal Weight. Due on d ue Goal HPV. Due on due Goal PHQ-9. Due on du e Goal RESEARCH QUALITY ASSURANCE ANALYST Scanned. Due on 024 due Goal Unhealthy drug use screening . Due on due Goal Medication Reconciliation. D ue on due Goal Zoster vaccine (1st). Due on due Goal ALT (SGPT). Due on due Goal Review Allergy List. Due on due Goal Height. Due on d ue Goal AST (SGOT). Due on due Goal Creatinine. Due on due Goal RESEARCH QUALITY ASSURANCE ANALYST Scanned. Due on due Goal Order Annual PT. Due on due Goal PAPER DELIVERER Paperwork. Due on due Goal ALT (SGPT). Due on due Goal UDT. Due on due Goal OARS. Due on due Goal Order Annual PT. Due on due Goal UDT. Due on due Goal ALT (SGPT). Due on due Goal RESEARCH QUALITY ASSURANCE ANALYST Scanned. Due on due Goal PAPER DELIVERER Paperwork. Due on due Goal Creatinine. Due on 15 due Goal OARS. Due on due Goal [...] Tobacco Use. Due on 021 due Goal Review Allergy List. Due on due Goal PHQ-9. Due on du e History Of Present Illness Encounter Date Complaint History Of Prese nt Illness right LE pain The symptoms are reported as being moderate. The symptoms occur constantly. Aggravating factors include bending backwards, reaching overhead, standing, sitting. Relieving factors include walking, Cannabis. The client states the symptoms are chronic. 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 stable. 11/18. - Reports fracturing her R femur in 2018.- Chronic neck and BL shoulder pain. Stable. 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 - Chronic left elbow pain. Stable. 09/18.- Ongoing low back pain. Stable. - Aware of the SCS trial. Pt not interested at this time. - Previously on medical cannabis. Notes she has tried Gummies recently with friends. Requesting to be re-certified for medical cannabis today. Denies any SEs with medical cannabis. No other concerns. Leg Pain (comments) Mrs. Brown is a pleasant 60 y/o woman here for initial consult for right thigh and hip pain referred by Dr. Tobias Martin through [facility]. This pain began after falling [...] R thigh. She is following up at [facility] when she is able to schedule. Pain is described as aching and stiff. Pain averages 7/10.In addition, she c/o neck and lower back pain that she believes is linked to a difference in leg lengths. Denies any lower back surgeries. Further carries a half-way dx of fibromyalgia. She has tried PT [...] RX on 05/08/[address] Mijares at [facility]. She takes 1-2 Dilaudid per month.Mrs. Brown is interested in pain management and medical cannabis certification through [facility]. No other concerns today. Leg Pain [...]
--- OUTSIDE RECORDS SUMMARY | 2024-10-22 23:30 | XMS_ITS | Continuity of Care Document ---
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 [employer] [address] [address], [place], [id number], tel:[phone] No Information 5 No Information [facility] [employer] J[address]ER [address] [address], [place], [id number], [place] tel:[phone] [facility] Diverticulosis of colon (without mention of hemorrhage)Dvr tclos of lg int w/o perforation or abscess w/o bleeding 2 No Information Referring Provider: Referral Self, USE FOR SELF REFERRALS. [facility] [employer] J[address] [address], [place], [id number], [place] tel:[phone] [facility] No Information 2 No Information Telephone E&M III 21-30 Min SUSU [facility] [employer] [address] [address], [place], [id number], [place] tel:[phone] [facility] GI Symptoms or Concerns (chief complaint) Diverticulitis 2 Gilles Squires. [address] [facility], [address], [id number], [place]. tel:[phone] Referring Provider: Referral Self, USE FOR SELF REFERRALS. [facility], [address] [address], [place], [address], [place] tel:[phone] [facility] No Information 2 Jordin Null. [address] [facility], [facility] [address], [place], [address], [place]. tel:[phone] [facility], [address] [address], [place], [address], [place] tel:[phone] [facility] Diverticulosis of colon (without mention of hemorrhage)Per pinky history of colonic polypsDvtrcli of lg int w/o perforation or abscess w/o bleedingDvrtcl os of lg int w/o perforation or abscess w/o bleedingPerson al history of colonic polyps Aug-0 9 No Information Referring Provider: Nivia Bruno MD, [address] [place] [address], [place], [address]. tel:[phone] [facility] [employer] [facility], [address] [address], [facility] [place], [address], [place] tel:[phone] [facility] History of colon polypsDivertic ular disease of large intestineDvtrc li of lg int w/o perforation or abscess w/o bleedingDvrtcl os of lg int w/o perforation or abscess w/o bleedingPerson al history of colonic polyps 5 No Information Referring Provider: Heladio Martins MD, [address] [facility], [place], [address]. tel:[phone] [facility], [address] [address], [place], [address], [place] tel:[phone] [facility] LUQ Pain Fe 4 Tatiana Ray. [address], [id number], [place]. tel:[phone] [facility], [address] [address], [place], [place], [address], [place] tel:[phone] [facility] Hiatal HerniaPolyp-in chalo/rect/stom- unc BehLUQ PainGastric Polyp-benignGa stric Polyp-benignLU Q PainHiatal Hernia 4 Nelson Ferris. [address] [facility], [facility] [address], [place], [address], [place]. tel:[phone] Referring Provider: Heladio Martins MD, [address] [place] [address], [address]. tel:[phone] [facility], [address] [address], [place], [place], [address], [place] tel:[phone] [facility] LUQ Pain 4 Tatiana Ray. [address] [place] [address], [place], [id number], [place]. tel:[phone] Referring Provider: Heladio Martins MD, [address] [place] [address], [address]. tel:[phone] Offic/outpt E&m Estab Mod-hi 2 [facility], [address] [address], [place], [place], [address], [place] tel:[phone] [facility] LUQ PainDiarrhea 4 Tatiana Ray. [facility] [address], [place], [place], [address], [place]. tel:[phone] Referring Provider: Heladio Martins MD, [address] [place] [address], [address]. tel:[phone] [facility], [address] [address], [place], [place], [address], [place] tel:[phone] [facility] Diverticulosis Of ColonHx Of Digest Disease NecDiverticulo sis Of ColonHx Of Digest Disease Nec 3 No Information Referring Provider: Heladio Martins MD, [address] [facility], [place], [address]. tel:[phone] [facility], [address] [address], [place], [address], [place] tel:[phone] [facility] Diverticulosis Of ColonDiverticu litis Of ColonDiverticu litis Of Colon 2 No Information Referring Provider: Heladio Martins MD, [address] [facility], [place], [address]. tel:[phone] [facility], [address] [address], [facility] [place], [address], [place] tel:[phone] [facility] Colon Cancer ScreeningPerso nal History Colon PolypsDivertic ulosis Of Colon 8 No Information Referring Provider: Daniel Griffin, [address] [place] [address], [place], [address]. tel:[phone] [facility], [address] [address], [place], [address], [place] tel:[phone] [facility] Personal history colon polyps 6 No Information Offic Cons New/estab Mod- [facility], [address] [address], [facility] [place], [address], [place] tel:[phone] [facility] Diverticulosis Of ColonPolyp-int es/rect/stom-u nc beh 6 [...] 5 years ago, she was hospitalized at [facility] at which time there was [...] Diverticulosis of colon (without mention of hemorrhage) Diverticulosis/Diverticulitis Re lated to Diverticular disease of large intestine High Fiber Diet Related to Diver ticular disease of large intestine Colon Cancer Prevention Related to Diverticular disease of large intestine Assessments Type Assessment Date No Information Patient Care Teams Name Effective Dates (start - stop) Status Members No Information
--- OUTSIDE RECORDS SUMMARY | 2024-10-22 23:30 | XMS_ITS | Continuity of Care Document ---
Author Organization [facility] Address [address] [address] [place] [address] Phone Care Team Providers Care Senior Loan Officer Name Role Phone No Information Unavailable Unavailable [...] Diagnoses Date Provider Providers Copied on Encounter [facility] JENNIFER [address] [address], [place], [id number], tel:[phone] No Information 5 No Information [facility] JENN[address]ER [address] [address], [place], [id number], [place] tel:[phone] [facility] [place] Diverticulosis of colon (without mention of hemorrhage)Dvr tclos of lg int w/o perforation or abscess w/o bleeding 2 No Information Referring Provider: Referral Self, USE FOR SELF REFERRALS. [facility] J[address]ER [address] [address], [place], [id number], [place] tel:[phone] [facility] No Information 2 No Information Telephone E&M III 21-30 Min SUSU [facility] JENN[address]ER [address] [address], [place], [id number], [place] tel:[phone] [facility] GI Symptoms or Concerns (chief complaint) Diverticulitis 2 Gilles Squires. [address] [facility], [address], [id number], [place]. tel:[phone] Referring Provider: Referral Self, USE FOR SELF REFERRALS. [facility], [address] [address], [facility] [place] [facility] [place], [address], [place] tel:[phone] [facility] No Information 2 Jordin Nlul. [address] [facility], [facility] [address], [place], [address], [place]. tel:[phone] [facility], [address] [address], [facility] [place] [facility], [address], [place] tel:[phone] [facility] Diverticulosis of colon (without mention of hemorrhage)Per pinky history of colonic polypsDvtrcli of lg int w/o perforation or abscess w/o bleedingDvrtcl os of lg int w/o perforation or abscess w/o bleedingPerson al history of colonic polyps Aug-0 9 No Information Referring Provider: Nivia Bruno MD, [address] [place] [address], [place], [address]. tel:[phone] [facility], [address] [address], [facility] [place] [address], [place] tel:[phone] [facility] History of colon polypsDivertic ular disease of large intestineDvtrc li of lg int w/o perforation or abscess w/o bleedingDvrtcl os of lg int w/o perforation or abscess w/o bleedingPerson al history of colonic polyps 5 No Information Referring Provider: Heladio Martins MD, [address] [facility], [place], [address]. tel:[phone] [facility], [address] [address], [place], [address], [place] tel:[phone] [facility] [address] LUQ Pain Fe 4 Tatiana Ray. [address], [id number], [place]. tel:[phone] [facility], [address] [address], [place], [place], [address], [place] tel:[phone] [facility] Hiatal HerniaPolyp-in chalo/rect/stom- unc BehLUQ PainGastric Polyp-benignGa stric Polyp-benignLU Q PainHiatal Hernia 4 Nelson Ferris. [address] [facility], [facility] [address], [place], [address], [place]. tel:[phone] Referring Provider: Heladio Martins MD, [address] [place] [address], [address]. tel:[phone] [facility], [address] [address], [place], [place], [address], [place] tel:[phone] [facility] LUQ Pain 4 Tatiana Ray. [address] [place] [address], [place], [address], [place]. tel:[phone] Referring Provider: Heladio Martins MD, [address] [place] [address], [address]. tel:[phone] Offic/outpt E&m Estab Mod-hi 2 [facility], [address] [address], [place], [place], [address], [place] tel:[phone] [facility] LUQ PainDiarrhea 4 Tatiana Ray. [facility] [address], [place], [place], [address], [place]. tel:[phone] Referring Provider: Heladio Martins MD, [address] [place] [address], [address]. tel:[phone] [facility], [address] [address], [place], [place], [address], [place] tel:[phone] [facility] Diverticulosis Of ColonHx Of Digest Disease NecDiverticulo sis Of ColonHx Of Digest Disease Nec 3 No Information Referring Provider: Heladio Martins MD, [address] [facility], [place], [address]. tel:[phone] [facility], [address] [address], [place], [address], [place] tel:[phone] [facility] Diverticulosis Of ColonDiverticu litis Of ColonDiverticu litis Of Colon 2 No Information Referring Provider: Heladio Martins MD, [address] [facility], [place], [address]. tel:[phone] [facility], [address] [address], [facility] [place], [address], [place] tel:[phone] [facility] Colon Cancer ScreeningPerso nal History Colon PolypsDivertic ulosis Of Colon 8 No Information Referring Provider: Daniel Griffin, [address] [place] [address], [place], [address]. tel:[phone] [facility], [address] [address], [place], [address], [place] tel:[phone] [facility] Personal history colon polyps 6 No Information Offic Cons New/estab Mod- [facility], [address] [address], [place] [facility] [place], [address], [place] tel:[phone] [facility] [address] Diverticulosis Of ColonPolyp-int es/rect/stom-u nc beh 6 [...] Registry Payers Payer name Insurance type Covered green [...] 5 years ago, she was hospitalized at [facility] at which time there was [...]
[2025-02-05] VITALS (22 sets, daily range): BP systolic 116–127; BP diastolic 66–81; PULSE 68–86; RESP 10–38; TEMP 35.8; O2SAT 96–100; BMI 23.6
--- OUTSIDE RECORDS SUMMARY | 2025-02-05 15:27 | XMS_ITS | CCD ---
Author Name Interface, L3Lllyvau lity Address [address] [place] [address] Oncology Address [address] [place] [address] Reason for Visit Social History
--- OUTSIDE RECORDS SUMMARY | 2025-02-05 15:28 | XMS_ITS | Encounter Summary ---
Author Organization [employer] [facility] Address [address], [place] [address] Care Team Providers Care Dock Grader Name Role Phone Needs Pcp, Assignment Primary Care Provider [phone] Reason for Visit * Auth/Cert Specialty Diagnoses / Procedures Referred By Contac t Referred To Contact Diagnoses Diarrhea of presumed infectious origin Fibromyalgia Diarrhea of presumed infectious origin Fibromyalgia Diarrhea of presumed infectious origin Fibromyalgia Referral ID Status Reason Start Date Expiration Date Visits Re quested Visits Authorized [id number] 1 1 Encounter Details Date Type Department Care Team (Latest Contact Info) Description 07/15/2019 Lab Requisition [facility] [address] [facility] [place] [address] Lul Hunter MD [address] [place], [place] [id number] Enterocolitis due to Clostridium difficile, not specified [...] C.DIFFICILE TOXIN,MOLECULAR DETECTION Routine 07/15/2019 10:00 PM [employer] Enterocolitis due to Clostridium difficile, not specified as recurrent documented in this encounter Results * (ABNORMAL) C.Difficile Toxin,Molecular Detection, (07/15/2019 10:00 PM [employer]) C.difficile Detected(A ) Not Detected 07/15/2019 11:30 PM [employer] [facility] Stool Non-blood Collection / Unknown 07/15/2019 10:00 PM [employer] 07/15/2019 10:24 PM [employer] Narrative [facility] - 07/15/2019 11:30 PM [employer] Methodology: Qualitative real-time PCR assay to detect the Clostridium difficile toxin B gene. us Lul Hunter MD LAB_1 Final Result [facility] [address] [place] [address], [facility] documented in this encounter Visit Diagnoses Diagnosis Enterocolitis due to Clostridium difficile, not specified as recurrent documented in this encounter Care Teams Dock Grader Relationship Specialty Start Date End Date Needs Pcp, [place] [address] PCP - General 02/28/21 documented as of this encounter
--- OUTSIDE RECORDS SUMMARY | 2025-02-05 15:28 | XMS_ITS | Encounter Summary ---
Author Organization [email or web address] Address [address], [place] [address] Care Team Providers Care Warranty Manager Name Role Phone Needs Pcp, Assignment Primary Care Provider [phone] Encounter Details Date Type Department Care Team (Late st Contact Info) Description 07/16/2019 Lab Requisition [facility] [address] [facility]. [place], [place] [address] Lul Hunter MD [address] [place], [place] [id number] Encounter for surgical aftercare following surgery on [...] organs documented in this encounter Care Teams Warranty Manager Relationship Specialty Start Date End Date Needs Pcp, [place] [address] PCP - General 02/28/21 documented as of this encounter
--- OUTSIDE RECORDS SUMMARY | 2025-02-05 15:28 | XMS_ITS | Encounter Summary ---
Author Organization [employer] Address [facility] [place] [address] Care Team Providers Care Patient Manager Name Role Phone Heladio Martins MD Primary Care Provider Kelsi Glez MD Unavailable [phone] Nivia Bruno MD Primary Care Provider [phone] Encounter Details Date Type Department Care Team (Latest Contact Info) Description 03/06/[address] [facility] Treatment Plan [facility] [address] [place] [phone] Dav Tierney MD [address] [place] [address] Megan Ruiz, SHANNON Major depressive [...] on file Legal Sex Female 3:16 AM GLASS TUBE BENDER Gender Identity Not on file Sexual Orientation [...] documented as of this encounter Care Teams Patient Manager Relationship Specialty Start Date End Date Heladio Martins MD PCP - General Internal Medicine 03/05/16 03/21/21 Nivia Bruno MD [address] [place] [address] PCP - General 03/22/21 Kelsi Handy MD [address] [place] [address] Assigned OBGYN Provider 04/23/20 3 documented as of this encounter
--- OUTSIDE RECORDS SUMMARY | 2025-02-05 15:28 | XMS_ITS | Clinical Summary ---
Author Organization [facility] Address [address] [place] [address] Care Team Providers Care News Agent Name Role Phone Needs Pcp, Assignment Primary Care Provider [phone] Source Comments You are receiving this document as you are listed as the primary care provider,follow-up provider, or the patient has been referred to you for consultation.This is in compliance with the Medicare and[facility] EHR Incentive Program,which states Providers who transition their patient to another setting of careor provider of care or refers their patient to another provider of care shouldprovide summary care record for each transition of care or referral. [employer] Allergies Active Allergy Reactions Criticality Noted Date [...] (OCEAN) 0.65 % nasal solution Place 1 [place] into both nostrils every 2 hours as needed for Congestion. Active bacitracin-polym yxin b (POLYSPORIN) [id number] UNIT/GM ointmentIndicati ons:dry nose Apply topically two [...] (06/14/2019): Added automatically from request for surgery [id number] Sarcoidosis, lung 06/01/2019 Recurrent major depressive disorder [...] (145 lb 12.8 oz) 07/16/2019 9:00 PM SENIOR NET APPLICATION DEVELOPER Height 172.7 cm (5' 8) 07/15/2019 9:30 PM SENIOR NET APPLICATION DEVELOPER Body Mass Index 22.17 07/15/2019 9:30 PM SENIOR NET APPLICATION DEVELOPER Plan of Treatment Health Maintenance Due Date [...] this topic Medical Devices Implanted Type Area Digital Strategist Senior Manager Device Identifier Shelf Expiration Date Model / Serial / Lot Chip Canc Crouton 30cc - [id number] Implanted:Qty: 1 on 07/07/2019 by Tobias Martin MD at [facility] DEVICE Right: LEG [employer] - [employer] 06/30/2023 [id number] / [id number] / [id number] Chip Canc Crouton 30cc - [id number] Implanted:Qty: 1 on 07/07/2019 by Tobias Martin MD at [facility] DEVICE Right: LEG [employer] - [employer] 06/30/2023 [id number] / [id number] / [id number] Procedures Procedure Name Priority Date/Time [...] Negative (Non Reactive) 08/25/2018 4:34 PM CDT [facility] Comment:Antibodies to HCV no t detected. Does not exclude the possiblity of exposure to HCV. 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
--- OUTSIDE RECORDS SUMMARY | 2025-02-05 15:28 | XMS_ITS | Clinical Summary ---
Author Organization [facility] Address [address] [place] [address] , [address] [place] [address] Phone Care Team Providers Care Floatlight Loading Supervisor Name Role Phone 7CareTeamCoordinator, 7CareTeamCoordinator Unava ilable Unavailable Conditions or Problems Problem Name Problem Code Onset Date Status Entry Date Provider Comment Standard Description Annotate Myalgia of auxiliary muscles, head and neck 35463495 (SNOMED CT) 06/27 Active 06/27 Jina Johnson DNP,APPLICATION INTEGRATION ARCHITECT,[place] P Muscle pain Hemifacial spasm R 16308129 (SNOMED CT) 08/10 Active 08/10 Norberto Miller Jr, MD Hemifacial spasm Facial pain, atypical 22193812 (SNOMED CT) 08/10 Active 08/10 Norberto Miller Jr, MD Atypical facial pain 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), right 50354396 (SNOMED CT) 08/10 Active 08/10 Norberto Miller Jr, MD Arthritis of temporomandibul ar joint Cervical spasm 02183326 (SNOMED CT) 08/10 Active 08/10 Norberto Miller Jr, MD Muscle spasm of head and/or neck Juvenile rheumatoid arthritis 341897726 (SNOMED CT) 08/10 Active 08/10 Norberto Miller [...] limb movement disorder (moderate; 15/hr; most w/arousals) 942551961 (SNOMED CT) 11/01 Inactive 11/03 Norberto Miller Jr, MD Periodic limb movement disorder 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 (ICD-10-CM ) 09/20 Active 09/20 Norberto Miller Jr, MD Sleep disorder, unspecified Fatigue 12094808 (SNOMED CT) 09/20 Active 09/20 Norberto Miller Jr, MD Fatigue Paresthesia of bilateral legs 20057855 (SNOMED CT) 11/10 Active 11/10 Regan Santiago MD Paresthesia Anxiety, generalized F41.1 (ICD-10-CM ) 01/17 Active 01/17 Jesika Diallo PhD Generalized anxiety disorder Restless leg syndrome (PLMS 15/hr) G25.81 (ICD-10-CM ) 09/04 Active 09/04 Norberto Miller Jr, MD Restless legs syndrome Sleep disturbance , nos 06465362 (SNOMED CT) 09/04 Inactive 09/04 Norberto Miller Jr, MD Dyssomnia 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 (ICD-10-CM ) 09/04 Active 09/04 Norberto Miller Jr, MD Insomnia, unspecified Snoring 68376257 (SNOMED CT) 09/04 Active 09/04 Norberto Miller Jr, MD Snoring Restless leg syndrome 02185972 (SNOMED CT) 09/04 Inactive 09/04 Norberto Miller Jr, MD Restless legs syndrome 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 (ICD-10-CM ) 09/04 Active 09/04 Norberto Miller Jr, MD Abnormal level of blood mineral traumatic brain injury, initial encounter S06.309A (ICD-10-CM ) 08/02 Active 08/07 Zuleyma Ly 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, initial encounter Hypothyroid ism 16125786 (SNOMED CT) 08/02 Active 08/07 Zuleyma Ly Hypothyroidism depression 84226371 (SNOMED CT) 08/02 Active 08/07 Zuleyma Ly Depressive disorder Memory problems R41.3 (ICD-10-CM ) 08/02 Active 08/07 Zuleyma Ly Other amnesia Medications Medication Instructions Start Date Stop Date Generic Name NDC Provider CYCLOBENZAPRINE HCL 5 MG TABS Take 1/2-1 tablet by mouth every night at bedtime as directed start with 1/2 tab 11/09 cyclobenzaprine [id number] Isabel Purdy RN CYCLOBENZAPRINE HCL 5 MG TABS TAKE ONE-HALF TO ONE TABLET (2.5-5 MG) BY MOUTH EVERY NIGHT AT BEDTIME DIRECTED. START WITH ONE-HALF TABLET (2.5 MG). cyclobenzaprine 51023671033 Norberto Miller Jr, MD ESCITALOPRAM OXALATE 20 MG TABS 12/10 escitalopram oxalate 31348386065 Norberto Miller Jr, MD LORAZEPAM 0.5 MG TABS 12/10 lorazepam 25174312877 Norberto Mliler Jr, MD TRETINOIN 0.025 % CREA 12/10 tretinoin 26640243735 Norberto Miller Jr, MD MELATONIN 10 MG TABS 1 by mouth every night 12/10 melatonin-lemon balm leaf extr 31701436548 Norberto Miller Jr, MD TRIAMCINOLONE ACETONIDE 0.1 % CREA 12/10 triamcinolone acetonide 83967899998 Norberto Miller Jr, MD SUMATRIPTAN SUCCINATE 25 MG TABS 12/10 sumatriptan succinate 12078553265 Norberto Miller Jr, MD BUSPIRONE HCL 15 MG TABS 12/10 buspirone 78535130586 Norberto Miller Jr, MD DIPHENOXYLATE-ATRO PINE 2.5-0.025 MG TABS 12/10 diphenoxylate-atr opine 30229074588 Norberto Miller Jr, MD TYRVAYA 0.03 MG/ACT SOLN 12/10 varenicline 41670164890 Norberto Miller Jr, MD ESCITALOPRAM OXALATE 10 MG TABS 12/10 escitalopram oxalate 21915335723 Norberto Miller Jr, MD LIDOCAINE VISCOUS HCL 2 % SOLN 12/10 lidocaine hcl 78004330705 Norberto Miller Jr, MD LIOTHYRONINE SODIUM 5 MCG TABS 12/10 liothyronine 24701779082 Norberto Miller Jr, MD HYDROMORPHONE HCL 2 MG TABS 12/10 hydromorphone 47820883181 Norberto Miller Jr, MD ROPINIROLE HCL 0.25 MG TABS 12/10 ropinirole 31857740127 Norberto Miller Jr, MD POLYMYXIN B-TRIMETHOPRIM 37909-9.1 UNIT/ML-% SOLN 12/10 polymyxin b sulf-trimethoprim 92621357630 Norberto Miller Jr, MD YUVAFEM 10 MCG TABS 12/10 estradiol 86624188277 Norberto Miller Jr, MD SULFAMETHOXAZOLE-T RIMETHOPRIM 800-160 MG TABS 12/10 sulfamethoxazole- trimethoprim 36083934581 Norberto Miller Jr, MD VALACYCLOVIR HCL 1 GM TABS 12/10 valacyclovir 91147683264 Norberto Miller Jr, MD LIDOCAINE 5 % PTCH lidocaine 65031862944 Norberto Miller Jr, MD TRIAMCINOLONE ACETONIDE 0.1 % PSTE triamcinolone acetonide 38023035620 Norberto Miller Jr, MD PROGESTERONE 100 MG CAPS TAKE ONE CAPSULE BY MOUTH AT BEDTIME* progesterone micronized 41293078904 Norberto Miller Jr, MD ESTRADIOL 1 MG TABS estradiol 17423777256 Norberto Miller Jr, MD DIPHENOXYLATE-ATRO PINE 2.5-0.025 MG TABS diphenoxylate-at r opine 98244940661 Norberto Miller Jr, MD LIOTHYRONINE SODIUM 5 MCG TABS liothyronine 97872843771 Norberto Miller Jr, MD MELOXICAM 15 MG TABS meloxicam 13860140519 Norberto Miller Jr, MD ONDANSETRON HCL 4 MG TABS ondansetron hcl 91150479478 Norberto Miller Jr, MD AMOXICILLIN 500 MG CAPS amoxicillin 53923589989 Norberto Miller Jr, MD HYDROMORPHONE HCL 2 MG TABS hydromorphone 46317883800 Norberto Miller Jr, MD YUVAFEM 10 MCG TABS estradiol 15143340199 Norberto Miller Jr, MD VILAZODONE HCL 20 MG TABS vilazodone 07082821569 Norberto Miller Jr, MD VILAZODONE HCL 10 MG TABS vilazodone 73855753486 Norberto Miller Jr, MD ESCITALOPRAM OXALATE 20 MG TABS escitalopram oxalate 50039752354 Norberto Miller Jr, MD BUSPIRONE HCL 15 MG TABS buspirone 52995103661 Norberto Miller Jr, MD TRAZODONE HCL 50 MG TABS trazodone 66822911215 Norberto Miller Jr, MD PREDNISONE 20 MG TABS prednisone 40491237859 Norberto Miller Jr, MD PROPRANOLOL HCL 20 MG TABS 08/10 propranolol 00517169490 Norberto Miller Jr, MD HYDROMORPHONE HCL 2 MG TABS 12/10 hydromorphone 18926455809 Norberto Miller Jr, MD ROPINIROLE HCL 0.25 MG TABS 11/19 ropinirole 62445948294 Norberto Miller Jr, MD ESCITALOPRAM OXALATE 20 MG TABS 12/10 escitalopram oxalate 72436934027 Norberto Miller Jr, MD TYRVAYA 0.03 MG/ACT SOLN 12/10 varenicline 01340391559 Norberto Miller Jr, MD YUVAFEM 10 MCG TABS 12/10 estradiol 43244000883 Norberto Miller Jr, MD CYCLOBENZAPRINE HCL 5 MG TABS Take 1/2-1 tablet by mouth every night at bedtime as directed start with 1/2 tab 11/19 cyclobenzaprine 72068408351 Kelle Janie YUEN ESCITALOPRAM OXALATE 10 MG TABS 12/23 escitalopram oxalate 18394620747 Norberto Miller Jr, MD DULOXETINE HCL 30 MG CPEP 1 every morning 12/23 duloxetine 18962512120 Norberto Miller Jr, MD BUSPIRONE HCL 5 MG TABS 1 twice a day 12/23 buspirone 26563623532 Norberto Miller Jr, MD MELATONIN 10 MG TABS 1 by mouth every night 12/10 melatonin-lemon balm leaf extr 37674328806 Norberot Miller Jr, MD TRAZODONE HCL 50 MG TABS Prescribed by Family 12/23 TRAZODONE HCL Norberto Miller Jr, MD BUSPIRONE HCL 15 MG TABS 12/10 buspirone 71220521782 Norberto Miller Jr, MD ESCITALOPRAM OXALATE 10 MG TABS 12/10 escitalopram oxalate 63494168683 Norberto Miller Jr, MD LORAZEPAM 0.5 MG TABS 12/10 lorazepam 62001237134 Norberto Miller Jr, MD TRIAMCINOLONE ACETONIDE 0.1 % CREA 12/10 triamcinolone acetonide 67612506607 Norberto Miller Jr, MD SULFAMETHOXAZOLE-T RIMETHOPRIM 800-160 MG TABS 12/10 sulfamethoxazole- trimethoprim 39634713100 Norberto Miller Jr, MD PROPRANOLOL HCL 20 MG TABS 11/19 propranolol 38691863808 Norberto Miller Jr, MD LIOTHYRONINE SODIUM 5 MCG TABS 11/19 liothyronine 82191419547 Norberto Miller Jr, MD POLYMYXIN B-TRIMETHOPRIM 26923-0.1 UNIT/ML-% SOLN 09/17 polymyxin b sulf-trimethoprim 58636807411 Norberto Miller Jr, MD DIPHENOXYLATE-ATRO PINE 2.5-0.025 MG TABS 11/19 diphenoxylate-atr opine 94053203517 Norberto Miller Jr, MD LIDOCAINE VISCOUS HCL 2 % SOLN 12/10 lidocaine hcl 99740554188 Norberto Miller Jr, MD TRETINOIN 0.025 % CREA 11/19 tretinoin 74131669898 Norberto Miller Jr, MD SUMATRIPTAN SUCCINATE 25 MG TABS 12/10 sumatriptan succinate 32317053579 Norberto Miller Jr, MD VALACYCLOVIR HCL 1 GM TABS 12/10 valacyclovir 94068552620 Norberto Miller Jr, MD ESCITALOPRAM OXALATE 10 MG TABS 12/23 escitalopram oxalate 08026487252 Belle Jimenez PA-C MELATONIN 10 MG TABS 1 orally QHS 12/23 MELATONIN 19543027694 Norberto Miller Jr, MD CLOBETASOL PROPIONATE 0.05 % CREA Prescribed by Family SALAZAR 09/20 CLOBETASOL PROPIONATE 25956114683 Norberto Miller Jr, MD BETAMETHASONE VALERATE 0.1 % LOTN Prescribed by Family SALAZAR 09/20 BETAMETHASONE VALERATE 17672159358 Norberto Miller Jr, MD CEFUROXIME AXETIL 500 MG TABS Prescribed by Family SALAZAR 09/20 CEFUROXIME AXETIL 08550016251 Norberto Miller Jr, MD ARMOUR THYROID 30 MG TABS Prescribed by Family SALAZAR 09/20 THYROID 22761472693 Norberto Miller Jr, MD SERTRALINE HCL 100 MG TABS Prescribed by Family SALAZAR 09/20 SERTRALINE HCL 12975308893 Norberto Miller Jr, MD WELLBUTRIN XL 150 MG [id number] Prescribed by Family SALAZAR 09/20 BUPROPION HCL 21752892031 Norberto Miller Jr, MD DULOXETINE HCL 30 MG CPEP 1 QAM 12/23 DULOXETINE HCL 80442870174 Norberto Miller Jr, MD BUSPIRONE HCL 5 MG TABS 1 BID 12/23 BUSPIRONE HCL 72010375135 Norberto Miller Jr, MD GABAPENTIN 300 MG CAPS Prescribed by Family SALAZAR GABAPENTIN 00001806972 Norberto Miller Jr, MD CEFUROXIME AXETIL 500 MG TABS Prescribed by Family SALAZAR 08/24 CEFUROXIME AXETIL 11292743042 Zuleyma Ly ARMOUR THYROID 30 MG TABS Prescribed by Family SALAAZR 09/20 THYROID 52910466247 Zuleyma Ly GABAPENTIN 300 MG CAPS Prescribed by Family SALAZAR 11/19 GABAPENTIN 41201999176 Zuleyma Ly SERTRALINE HCL 100 MG TABS Prescribed by Family SALAZAR 09/20 SERTRALINE HCL 20838971262 Zuleyma Ly WELLBUTRIN XL 150 MG [id number] Prescribed by Family SALAZAR 09/20 BUPROPION HCL 83769192355 Zuleyma Ly TRAZODONE HCL 50 MG TABS Prescribed by Family SALAZAR 12/23 TRAZODONE HCL 07960020260 Zuleyma Ly BETAMETHASONE VALERATE 0.1 % LOTN Prescribed by Family SALAZAR 11/19 BETAMETHASONE VALERATE 38438108720 Zuleyma Ly CLOBETASOL PROPIONATE 0.05 % CREA Prescribed by Family SALAZAR 08/24 CLOBETASOL PROPIONATE 55093684018 Zuleyma Ly Medications Administered No information available. [...] Appointment 03:30 PM Kelle soto PA-C, [address] [facility], [address], [place], [address], Referral Dental Device Re ferral Pending order [...] Procedures Code Procedure Name Date Entry Date 92109/45620/54711&53 Occipital Nerve Blo ck and Trigger Point Injections CPT-89236 Trigger point inj (3+ musc) CPT-J1100 Dexamethasone -- 10 mg 04/26 ORDERS Follow up [facility] telemedicine 2 ORDERS Dental Device Referral 12/10 ORDERS Sleep Hygiene Tips Handout 2 ORDERS Insomnia Handout ORDERS Patient Instructions ORDERS Patient Instructions ORDERS Patient Instructions SCT-[id number] Other Referral ORDERS Instructions for Staff 09/02 ORDERS Follow up Sleep [facility] telemedicine ORDERS Patient Instructions CPT-55808 Trigger point inj (3+ musc) CPT-J1100 Dexamethasone -- 10 mg 08/10 [id number] Other Radiology 83546/09131/61205&53 Occipital Nerve Blo ck and Trigger Point Injections ORDERS Follow up Extended telemedicine 1 ORDERS Patient Instructions SCT-[id number] Other Referral SCT-[id number] Psychiatry Referral ORDERS Pain Clinic ORDERS Insomnia Handout ORDERS Sleep Hygiene Tips Handout 2 ORDERS Patient Instructions CPT-91595 PSG, 4+ parameters w / tech - 6yrs or older (03214) ORDERS Vitamin B12 ORDERS Vitamin D 25 Hydroxy ORDERS Patient Instructions SCT-[id number] Other Referral SCT-[id number] Psychology Referral ORDERS Instructions for Staff 11/28 ORDERS Lyme Total Ab w/Refl ex (reflex to Western Blot) ORDERS TSH ORDERS 2 weeks Actigraphy W atch w/ Sleep Journals (Call Sleep Lab) ORDERS Ferritin Serum ORDERS Overnight PSG - Sleep Study Overnight 07/17/19 ORDERS Telemedicine Follow up 11/08 ORDERS Ferritin Serum SCT-[id number] Documentation of current medicatio ns ORDERS Other Handout ORDERS Patient Instructions ORDERS Patient Instructions ORDERS Instructions for Staff 11/08 ORDERS Telemedicine Follow up 09/20 CPT-21525 PSG, 4+ parameters w / tech - 6yrs or older (66171) ORDERS Sleep Study - [facility] 2 [facility]-[id number] Documentation of current medicatio ns ORDERS T4 SCT-[id number] Other Referral ORDERS Lyme Total Ab w/Refl [...] TSH ORDERS Vitamin B12 ORDERS T3 Free CPT-12907 Nerve Conduction 7-8 studies CPT-54460 EMG with NCS (5+ muscles) - 1 limb 11/10 SCT-[id number] Documentation of current medicatio ns ORDERS Ferritin Serum ORDERS Patient Instructions ORDERS Other Test ORDERS Follow up ORDERS Vitamin B12 CPT-82106 Neuropsych assmnt w/ prov 4 hr CPT-4156015 Neuropsych assmnt w/ tech 3 hr ORDERS Follow up ORDERS Patient Instructions SCT-[id number] Documentation of current medicatio ns ORDERS Follow up ORDERS Patient Instructions SCT-[id number] Other Test CPT-09351 PSG, 4+ parameters w / tech - 6yrs or older (47164) CPT-61369 MRI Brain W/O SCT-[id number] Documentation of current medicatio ns SCT-834666240 Other Test SCT-[id number] Documentation of current medicatio ns ORDERS Ferritin Serum SCT-004849567 Other Referral ORDERS Follow up SCT-458455071 Other Test SCT-162015866 Other Referral [facility]-[id number] Documentation of current medicatio ns Vital Signs [...]
--- OUTSIDE RECORDS SUMMARY | 2025-02-05 15:28 | XMS_ITS | Clinical Summary ---
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
--- OUTSIDE RECORDS SUMMARY | 2025-02-05 15:28 | XMS_ITS | Clinical Summary ---
Author Organization [employer] Address [address] [place] [address] Care Team Providers Care Atm Manager Name Role Phone Nivia Bruno MD Primary Care Provider Judie Carreno PharmD Unavailable [phone] Allergies Active Allergy Reactions Criticality Noted Date [...] Shots Medications naloxone (Narcan) 4 mg/actuation nasal sprayIndications: At risk for injury due to substance overdose Inhale 1 Stella into affected nostril(s) each time if needed [...] 24 Active progesterone micronized (PROMETRIUM) 100 mg capsuleIndication s:Postmenopausal, Hormone replacement therapy Take 1 Capsule (100 mg) by mouth at bedtime. 90 Capsule 10/13/19 24 Active medication order composerIndicatio ns:Fibromyalgia [facility] [...] Apple Cider Vinegar - PRN NN Ultimate [place]-3 - daily Body Bio Balance Oil (omega-3/omega- 6 blend) - 2 capsules daily Body Bio PC - daily BodyBio Tudca - daily 11/10/19 24 Active hydrocortisone 2.5 % creamIndications: Hemorrhoids, external Apply topically to affected area(s) two times daily. 30 g 01/15/20 24 Active ketoconazole 2 % creamIndications: Vaginal irritation [...] meal. 100 Tablet 3 01/22/20 24 Active triamcinolone 0.1 % lotionIndications :Dermatitis Apply topically to affected area(s) three times daily. 60 mL 06/10/19 25 Active Graduated Compression StockingsIndicati ons:Bilateral leg edema For personal use. Length: calf Strength: 20-30 mmHg 1 Packet 06/10/19 25 Active empty container (Sharps Container) misc As directed. 1 Each 07/14/19 25 Active acetaminophen SR 650 mg Extended-Release tabletIndications :Chronic polyarticular juvenile rheumatoid arthritis (HC) Take 1 Tablet (650 mg) by mouth every 8 hours if needed (pain). 270 Tablet 3 08/05/19 25 Active LORazepam 0.5 mg tabIndications:GA D (generalized anxiety disorder) Take 1 Tablet (0.5 mg) by mouth 2 times daily if needed for Anxiety. 60 Tablet 1 08/10/19 25 Active traZODone 100 mg tabletIndications :KATY (generalized anxiety disorder),Primary insomnia Take 1 Tablet (100 mg) by mouth at bedtime. 90 Tablet 1 08/10/19 25 Active liothyronine 5 mcg tabletIndications :Hypothyroidism, unspecified type Take 1 tablet (5 mcg) by mouth two times daily. 180 Tablet 08/14/19 25 Active ondansetron 4 mg disintegrating tabletIndications :Nausea Place 1 Tablet (4 mg) on the tongue every 8 hours if needed for Nausea/Vomiting . 30 Tablet 2 09/11/19 25 Active alirocumab (Praluent Pen) 150 mg/mL pnijIndications:C alcified atheromatous plaque Inject 150 mg subcutaneous every 2 weeks. 2 mL 3 10/14/19 25 Active busPIRone 15 mg tabletIndications :KATY (generalized anxiety disorder) Take 1.5 Tablets (22.5 mg) by mouth two times daily. 270 Tablet 1 10/27/19 25 Active SUMAtriptan (IMITREX) 25 mg tabletIndications :Hx of migraines Take 1 Tablet (25 mg) by mouth 2 times daily if needed for Migraine. Give at minimum 2hrs apart. Max Dose: 200mg per 24hrs. 9 Tablet 12/02/19 25 Active lidocaine 5 % topical patchIndications: Lumbar radiculopathy Apply on dry, clean, hairless skin. Apply 1 patch to painful area of skin for up to to 12 hours within 24 hour period. 30 Patch 5 12/02/19 25 Active HYDROmorphone 4 mg tabletIndications :Lumbar radiculopathy,Lum bar spondylosis Take 1 Tablet (4 mg) by mouth 3 times daily if needed for Pain. Chronic pain 24 Tablet 12/03/19 25 Active clobetasol (TEMOVATE) 0.05 % ointmentIndicatio ns:Lichen sclerosus Apply topically to affected area(s) two times daily. 60 g 12/07/19 25 Active multivitamin (MVI) tabletIndications :Fatigue, unspecified type,Unintentiona l weight loss Take 1 Tablet by mouth once daily. 90 Tablet 3 12/09/19 25 Active rosuvastatin (CRESTOR) 5 mg tabletIndications :Calcified atheromatous plaque Take 1 Tablet (5 mg) by mouth at bedtime. 90 Tablet 3 12/09/19 25 Active valACYclovir (VALTREX) 1 gram tabletIndications :Genital herpes simplex, unspecified site Take 1 Tablet (1 g) by mouth three times daily. Tid X 7 Days 21 Tablet 01/22/20 25 Active vilazodone 20 mg tabletIndications :KATY (generalized anxiety disorder),Moderat e episode of recurrent major depressive disorder (HC) Take 1 Tablet (20 mg) by mouth once daily. Take with 10 mg for total of 30 mg daily. 90 Tablet 1 02/04/20 25 Active vilazodone 10 mg tabletIndications :Moderate episode of recurrent major depressive disorder (HC) Take 1 Tablet (10 mg) by mouth once daily. Take with 20 mg tablet for total of 30 mg daily. 30 Tablet 02/04/20 25 Active valACYclovir (VALTREX) 1 gram tabletIndications :Genital herpes simplex, unspecified site Take 1 Tablet (1 g) by mouth three times daily. Tid X 7 Days 21 Tablet 06/01/19 25 025 Discontinu ed(Reorder (E-cancel not sent)) vilazodone 40 mg tabletIndications :KATY (generalized anxiety disorder),Moderat e episode of recurrent major depressive disorder (HC) Take 1 Tablet (40 mg) by mouth once daily. 30 Tablet 2 12/10/19 25 025 Discontinu ed(*Medica tion adjustment ) trimethoprim-sulf amethoxazole 160-800 mg tabIndications:Co mplicated UTI (urinary tract infection) Take 1 Tablet [...] Encounters Date Type Department Care Team Description 02/03/2025 2:00 PM CDT Procedure Only [facility] [address] [place] [address] Tyler Parson L Ac Acupuncture 02/03/2025 Travel 02/03/2025 Telephone [facility] [place] [id number] [place] [phone] Mehran Norman MD Results (Zio) 02/03/2025 Telephone [facility] [address] [place] [address] Nivia Bruno MD Cardiovascular Diagnostic Testing (Heart monitor) 02/02/2025 Refill [facility] [address] [place] [address] Freda Serrano MD Refill Request (Vilazodone, Vilazodone) 02/02/2025 Telephone [facility] [address] [place] [address] Freda Serrano MD Medication Management 02/02/2025 Orders Only [facility] [address] [place] [address] Walter Bourne MD 1 scan: (1-Ord) NFLD-EKG-02/01/25 02/01/2025 3:00 PM CDT Office Visit [facility] [address] [place] [address] Walter Bourne MD Follow Up (SOB and edema in both legs ) 01/31/2025 Travel 01/30/2025 Nurse Triage [facility] [address] [place] [address] Freda Serrano MD Questions (possible medication related side effects ) 01/26/2025 2:30 PM CDT Pharmacist Medication Management [address] [address] Judie Carreno PharmD Pharmacist Medication Management (CMR follow-up - ACO reach provider referral - phone visit) 01/26/[address] [address] Nivia Bruno MD Urinary Problem 01/26/2025 Telephone [facility] [place] [facility] [place] [address] Mehran Norman MD Testing 01/25/2025 1:00 PM CDT Phone Office Visit [facility] [address] [place] [address] Keiko Downs, [facility] Individual Therapy; Phone Visit 01/25/2025 Travel 01/21/2025 1:10 PM CDT Office Visit [address] [address] Nivia Bruno MD ER Follow up 01/21/2025 10:30 AM CDT Nurse/Clinic Staff Only [facility] [address] [place] [address] 01/21/2025 Travel 01/21/2025 Nurse Triage [facility] [address] [place] [address] Gaye Soni, quality technician fiberglass monitor (Chest pressure and HR up to 230 associated with accupuncture) 01/20/2025 1:30 PM CDT Procedure Only [facility] [address] [facility] [address] Tyler Parson L Ac Acupuncture 01/20/2025 9:45 AM CDT Phone Office Visit [facility] [address] [facility] [place] [address] Freda Serrano MD Phone Visit; Medication Management; Follow Up 01/20/2025 Orders Only [facility] Scanner 1 scan: (1-Ord) TOMA AVILA CHEST 2V, 01/20/2025 01/20/2025 Telephone [facility] [address] [facility] [place] [address] Freda Serrano MD Chest Pain/problem 01/20/2025 Travel 01/19/2025 Travel 01/18/2025 1:00 PM CDT Phone Office Visit [facility] [address] [facility] [place] [phone] Keiko oDwns LICSW Failed Appointment (6th failed appt) 01/18/2025 Telephone [facility] [address] [facility] [place] [address] Keiko Downs LICSW Appointment (call back) 01/18/2025 Travel 01/17/[address] [address] Judie Carreno, AugustaD Appointment 01/13/2025 1:30 PM CDT Procedure Only [facility] [address] [facility] [place] [address] Tyler Parson L Ac Acupuncture 01/13/2025 Travel 01/12/2025 Telephone [facility] [place] [address] Freda Serrano MD 01/11/2025 1:45 PM CDT Office Visit [facility] [address] [place] [address] Kourtney Cherry PA Throat Problem (Sores in mouth and throat following antibiotic use for uti; would like blood work) 01/11/2025 1:00 PM CDT Phone Office Visit [address] [phone] Keiko Downs LICSW Individual Therapy; Phone Visit 01/11/[address] [phone] Keiko Downs LICSW 01/11/2025 Travel 01/07/2025 Telephone [facility] [address] [place] [address] Nivia Bruno MD Bladder Infection (Antibiotics not working) 01/06/2025 3:40 PM CDT Office Visit [facility] [address] [place] [address] Facundo Mijares MD Musculoskeletal Problem (Follow Up Bilateral Shoulder Pain ) 01/06/2025 2:00 PM CDT Procedure Only [facility] [address] [place] [address] Tyler Parson L Ac Acupuncture 01/06/2025 Travel 01/05/[address] [address] Facundo Mijares MD Questions (APPOINTMENT ) 01/04/2025 1:00 PM CDT Phone Office Visit [address] [phone] Keiko Downs LICSW Failed Appointment (5th failed appt) 01/04/[address] [address] Kourtney Cherry PA Medication Management 01/04/2025 Travel 01/02/2025 Orders Only [facility] Scanner 1 scan: (1-Ord) [facility] LAB RESULTS, 01/02/2025 12/29/2024 11:00 AM CDT Procedure Only [address] [address] Tyler Parson L Ac Acupuncture 12/28/2024 1:00 PM CDT Phone Office Visit [address] [phone] Keiko Downs [facility] Individual Therapy; Phone Visit 12/28/2024 Travel 12/27/[address] [address] Nivia Bruno MD Form (disability form) 12/17/[address] [address] Kourtney Cherry PA Refill Request (Diflucan ) 12/16/2024 1:30 PM CDT Procedure Only [address] [address] Tyler Parson L Ac Acupuncture 12/16/2024 Travel 12/15/2024 2:30 PM CDT Pharmacist Medication Management [address] [address] Judie Carreno, Zoraida Pharmacist Medication Management (CMR initial - provider referral (at patient request) - phone visit) 12/14/2024 1:00 PM CDT Phone Office Visit [address] [phone] Keiko Downs [facility] Individual Therapy; Phone Visit 12/14/2024 Travel 12/13/[address] [address] Freda Serrano MD Prior Authorization (vilazodone 40 mg tablet PA NOT NEEDED) 12/10/2024 1:00 PM CDT Procedure Only [facility] [address] [place] [address] Tyler Parson L Ac Acupuncture 12/10/2024 Patient Outreach [facility] Care Management - Advanced Care Team [address] [place] [address] Dana Benitez Medication Management (COMPREHENSIVE MEDICATION REVIEW - PROVIDER REFERRAL - ACO REACH ) 12/10/2024 Patient Outreach [facility] [address] [place] [address] Nivia Bruno MD Serious Illness Conversation 12/10/2024 Travel 12/09/2024 11:15 AM CDT Phone Office Visit [address] [address] Freda Serrano MD Medication Management; Follow Up; Depression 12/08/2024 10:50 AM CDT Office Visit [address] [address] Nivia Bruno MD Concerns (Tired, would like labs checked) 12/08/[address] [address] Nivia Bruno MD Questions 12/08/2024 Travel 12/07/2024 1:00 PM CDT Phone Office Visit [address] [phone] Keiko Downs, [facility] Individual Therapy; Phone Visit 12/07/[address] [address] Kourtney Cherry PA Medication Management (fluconazole (DIFLUCAN) 150 mg tablet) 12/06/2024 11:05 AM CDT Office Visit [address] [address] Kourtney Cherry PA Vaginal Problem 12/06/2024 Travel 12/02/2024 1:00 PM CDT Procedure Only [address] [address] Tyler Parson L Ac Acupuncture 12/02/2024 Telephone [facility] [address] [place] [address] Facundo Mijares MD Medication Management (HYDROmorphone 8 mg tablet ) 12/01/2024 4:30 PM CDT Ancillary Procedure [address] [address] 12/01/2024 4:15 PM CDT Ancillary Procedure [address] [place] [address] 12/01/2024 3:40 PM CDT Office Visit [address] [address] Facundo Mijares MD Follow Up (Lower back pain radiates down rt buttocks and leg ); Shoulder Pain/problem (Left shouder); Refill Request (Lidocaine patch, Hydromorphone and Sumatriptan ) 12/01/2024 3:00 PM CDT Ancillary Procedure [address] [place] [address] 12/01/2024 Travel 11/30/2024 1:00 PM CDT Phone Office Visit [address] [phone] Keiko Downs STRATEGIC PARTNERSHIP SPECIALIST Individual Therapy; Phone Visit 11/30/2024 Travel 11/25/2024 10:30 AM CDT Procedure Only [address] [address] Tyler Parson L Ac Acupuncture 11/25/2024 Travel 11/23/2024 1:00 PM CDT Phone Office Visit [address] [phone] Keiko Downs STRATEGIC PARTNERSHIP SPECIALIST Individual Therapy; Phone Visit 11/23/2024 Travel 11/16/2024 1:00 PM CDT Phone Office Visit [address] [phone] Keiko Downs STRATEGIC PARTNERSHIP SPECIALIST Failed Appointment 11/16/2024 Travel 11/11/2024 1:00 PM CDT Procedure Only [facility] [address] [place] [address] Tyler Parson L Ac Acupuncture 11/11/2024 Telephone [facility] [address] [place] [address] Nivia Bruno MD IRON INFUSION INQUIRY 11/10/2024 2:00 PM CDT Nurse/Clinic Staff Only [facility] [address] [place] [address] Infusion Therapy (1st Reclast) 11/10/2024 Travel 11/09/2024 1:00 PM CDT Phone Office Visit [facility] [address] [place] [address] Keiko Downs [facility] Individual Therapy; Phone Visit 11/09/2024 Travel from Last 3 Months Immunizations Immunization [...] 26) suicide Brother 6 Brother 7 Father Maternal Aunt Mother Paternal Aunt Sister 1 Alive Sister 2 [...] isolated from those around you? 4 06/04/2023 Alcohol Use Answer Date Recorded Frequency of Alcohol Consumption Not on file 02/01/2025 Average Number of Drinks Not on file 025 How often do you have five or more drinks on one occasion? 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 WEIGHER Gender Identity Not on file Sexual [...] Sign Reading Time Taken Comments Blood Pressure 121/68 02/01/2025 3:03 PM CDT Pulse 104 02/01/2025 3:03 PM CDT Temperature 36.6 C (97.8 F) 01/06/2025 3:32 PM CDT Respiratory Rate 16 04/01/2022 3:21 PM GLUCOSE [employer] SYRUP WEIGHER Oxygen Saturation 97% 02/01/2025 3:03 PM CDT Inhaled Oxygen Concentration - - Weight 73.4 kg (161 lb 12.8 oz) 02/01/2025 3:03 PM CDT Height 172.7 cm (5' 8) 10/14/2024 11:1 4 AM CDT Body Mass Index 24.6 10/14/2024 11:14 AM CDT Plan of Treatment Upcoming Encounters Date Type Department Care Team (Late st Contact Info) Description 02/07/2025 2:00 PM CDT Procedure Only [facility] [address] [facility] [address] Tyler Parson L Ac [address] [place] [address] 02/08/2025 1:00 PM CDT Phone Office Visit [facility] [address] [place] [phone] Keiko Downs [facility] [address] [place] [address] 02/14/2025 2:30 PM CDT Orders Only [facility] & [address] [address] 02/17/2025 1:30 PM CDT Procedure Only [facility] [address] [place] [address] Tyler Parson L Ac [address] [place] [address] 02/18/2025 1:10 PM CDT Office Visit [facility] [address] [place] [address] Nivia Bruno MD [address] [place] [address] 02/24/2025 1:30 PM CDT Procedure Only [facility] [address] [place] [address] Tyler Parson L Ac [address] [place] [address] 03/02/2025 2:30 PM CDT Pharmacist Medication Management [facility] [address] [place] [address] Judie Carreno, PharmD [address] [place] [address] 03/03/2025 1:30 PM CDT Procedure Only [facility] [address] [place] [address] Tyler Parson L Ac [address] [facility] [place] [address] 03/10/2025 2:00 PM CDT Procedure Only [facility] [address] [place] [address] Tyler Parson L Ac [address] [facility] [place] [address] 03/17/2025 2:00 PM GLUCOSE AND SYRUP WEIGHER Procedure Only [facility] [address] [place] [address] Tyler Parson L Ac [address] [facility] [place] [address] 03/24/2025 10:15 AM GLUCOSE AND SYRUP WEIGHER Phone Office Visit [facility] [address] [place] [address] Freda Serrano MD [address] [place] [address] 03/24/2025 2:00 PM GLUCOSE AND SYRUP WEIGHER Procedure Only [facility] [address] [place] [address] Tyler Parson L Ac [address] [place] [address] 03/31/2025 2:00 PM GLUCOSE AND SYRUP WEIGHER Procedure Only [facility] [address] [place] [address] Tyler Parson L Ac [address] [place] [address] 04/14/2025 2:00 PM GLUCOSE AND SYRUP WEIGHER Procedure Only [facility] [address] [place] [address] Tyler Parson L Ac [address] [place] [address] 04/21/2025 2:00 PM GLUCOSE AND SYRUP WEIGHER Procedure Only [facility] [address] [place] [address] Tyler Parson L Ac [address] [place] [address] 04/28/2025 1:30 PM GLUCOSE AND SYRUP WEIGHER Procedure Only [facility] [address] [facility] [address] Tyler Parson L Ac [address] [place] [address] Health Maintenance Due Date Last Done Comments RSV vaccine for adults or (1 - Risk 60-74 years 1-dose series) 2019 DEXA/DXA scan for age 65+ 04/11/20242023, 09/24/2023 (Verified in Care Everywhere or Patient Record), 09/19/2021, Additional history exists COVID-19 vaccine series (2024- season) 2025 06/11/2023, 08/21/2021, 02/21/2021, Additional history exists Influenza Vaccine (#1) 2025 , 06/10/2024, 03/16/2022, Additional history exists Mammogram for age 45-75 09/15/2025 09/16/19 25, 08/01/2023, 05/13/2022, Additional history exists BMI (ht and wt on same day) for age 18+ 10/14/2025 10/14/2024, 04/14/2023, 06/06/2022, Additional history exists Medicare Wellness for age 65+ 10/15/2025 10/14/2024, 06/01/2019 Depression screening for age 12+ 01/21/2026 01/21/2025, 01/21/2025, 01/19/2025, Additional history exists Tetanus booster 05/31/2026 05/31/2016, [...] Diagnosis Comments ACUPUNCTURE PLAN OF CARE Routine 02/03/2025 3:26 PM CDT Other low back pain EKG 12 LEAD Routine 02/02/2025 10:45 AM CDT Heart palpitations EXTENDED HOLTER Routine 01/25/2025 Palpitation ACUPUNCTURE PLAN OF CARE Routine 01/20/2025 3:48 PM CDT Other low back pain SCAN-RADIOLOGY REPORT 01/20/2025 12:00 AM CDT ACUPUNCTURE PLAN OF CARE Routine 01/13/2025 3:34 [...] 1:05 PM CDT Other low back pain LIPID PANEL W REFLEX MEASURED LDL Routine 10/14/2024 12:34 PM CDT Calcified atheromatous plaque XR MAMMO EVA BILAT DIAG Routine 09/15/2024 2:20 PM CDT Pain of both breasts FRUIT VENDOR THIN PREP PAP SCREEN IMAGED Routine 11/04/2023 3:50 PM CDT XR DXA BONE DENSITY 2 SITES AXIAL Routine 09/24/2023 2:28 PM CDT Osteopenia, unspecified location Menopause SCAN-COLONOSCOPY 01/28/2022 1:00 PM CDT ANTI HIV 1/2 Routine 06/01/2018 4:02 PM GLUCOSE AND SYRUP WEIGHER Exposure to STD ANTI HCV Routine 09/30/2017 5:38 PM CDT STD exposure from Last 3 Months or Most Recently Relevant to Health Maintenance Results * EKG 12 LEAD [[id number]] (02/02/2025 10:45 AM CDT) us Walter Bourne MD EKG ORD Final Result * ZIO PATCH XT - weekly to monthly symptoms. (01/25/2025) us Nivia Bruno MD CARDIAC SERVICES ORD Final Result * SCAN-RADIOLOGY REPORT (01/20/2025 12:00 AM CDT) Anatomical Region Laterality Modality Other Scanner OTHER Final Result * COVID-19 MOLECULAR (01/11/2025 2:26 PM CDT) Pathologist [facility] COVID 19 ALLINA MOLECULAR Negative Negative 01/12/2025 2:42 AM CDT [facility]AT[facility] TESTING LABORATORY [facility] 01/12/2025 2:42 AM CDT [facility] Comment:Specimen submitted t o [facility] for testing. Other SPECIMEN FROM NASAL FOSSAE / Unknown Non-Blood / Unknown 01/11/2025 2:26 PM CDT 01/11/2025 2:27 PM CDT Narrative [facility] - 01/12/2025 2:42 AM CDT All PCR tests are subject to false negative result due to variability in viral load and collection technique. A negative result does not rule out a SARS-CoV-2 infection. Clinical correlation required. us Kourtney GUERRERO MICROBIOLOGY Final Result [facility] [address] [place] [address], * CBC WITH AUTO DIFFERENTIAL (01/11/2025 2:26 PM CDT) Pathologist [facility] WHITE BLOOD CELL COUNT 8.2 3.8 - 10.8 Thousand/u L 01/12/2025 4:06 AM CDT [employer] [facility] [employer] [facility] RED BLOOD CELL COUNT 4.74 3.80 [...] PM CDT Kourtney GUERRERO HEMATOLOGY Final Result [facility] [address] [address], [place] [phone] * URINALYSIS MICROSCOPIC [[id number]] - routine (01/11/2025 2:26 PM CDT) RBC 0-2 0-2, None Seen /HPF 01/11/2025 11:40 PM CDT [facility] WBC 0-2 0-2, 3-5, None Seen /HPF 01/11/2025 11:40 PM CDT [facility] BACTERIA None Seen None Seen, Rare, Few Bacteria/ HPF 01/11/2025 11:40 PM CDT [facility] EPITHELIAL CELLS None Seen None Seen, Few Epi/HPF 01/11/2025 11:40 PM CDT [facility] HYALINE CASTS 0-2 0-2, 3-5 /LPF 01/11/2025 11:40 PM CDT [facility] Urine URINE SPECIMEN / Unknown Non-Blood / Unknown 01/11/2025 2:26 PM CDT 01/11/2025 2:26 PM CDT Kourtney GUERRERO URINE Final Result [facility] [address] [place] [address], * URINE CULTURE [[id number]] (01/11/2025 2:26 PM CDT) CULTURE <10,000 CFU/mL multiple organisms 01/13/2025 11:03 AM CDT [facility] Urine URINE SPECIMEN / Unknown Non-Blood / Unknown 01/11/2025 2:26 PM CDT 01/11/2025 2:26 PM CDT Kourtney GUERRERO MICROBIOLOGY Final Result [facility] [address] [place] [address], [place] * THROAT RAPID STREP ONLY CLINIC (01/11/2025 2:26 PM CDT) Pathologist [facility] POC, GROUP A STREP NOT DETECTED NOT DETECTED 01/11/2025 2:36 PM CDT [facility] Comment: The [place] [employer] recommends that a throat culture be performed if a rapid group A streptococcus assay yields a negative result. [employer] recommends Streptococcus, Group A culture. Throat SPECIMEN FROM THROAT / Unknown Non-Blood / Unknown 01/11/2025 2:26 PM CDT 01/11/2025 2:26 PM CDT Kourtney GUERRERO MICROBIOLOGY Final Result Performing Organization Address City/[facility]/ZIP Co de Phone Number [facility] [address] [place] [address], [place] [phone] [facility] [address] [place] [address], [place] [phone] * (ABNORMAL) BASIC METABOLIC PANEL (01/11/2025 2:26 PM CDT) SODIUM 134(L) 135 - 146 mmol/L 01/12/2025 [...] - 110 mmol/L 01/12/2025 9:17 AM CDT [employer] [facility] Blood BLOOD SPECIMEN / Unknown [facility] / Unknown 01/11/2025 2:26 PM CDT 01/11/2025 2:26 PM CDT Kourtney GUERRERO CHEMISTRY Final Result [employer] [facility] [address] [place] [address], * SCAN-LABORATORY REPORT (01/02/2025 12:00 AM CDT) us Scanner OTHER Final Result * (ABNORMAL) HEMOGLOBIN A1C (12/08/2024 11:55 AM CDT) HEMOGLOBIN A1C 5.9(H) <5.7 % [facility]Batsheva Melton Comment: For someone without known [...] CHEMISTRY Final Resul t Performing Organization Address [facility]/ZIP Co de Phone Number [employer] [address] [place] [address], [address] [address] * VITAMIN D 25 (DEFICIENCY) (12/08/2024 11:55 AM CDT) VITAMIN D,25-OH,TOTAL,IA 54 30 - 100 ng/mL [employer]- emely Melton Comment: Vitamin D Status 25-OH Vitamin D: Deficiency: <20 ng/mL Insufficiency: 20 - 29 ng/mL Optimal: > or = 30 ng/mL For 25-OH Vitamin D testing on patients on D2-supplementation and patients for whom quantitation of D2 and D3 fractions is required, the QuestAssureD(TM) 25-OH VIT D, (D2,D3), LC/MS/MS is recommended: order code 24206 (patients >2yrs). See Note 1 Note 1 For additional information, please refer to http://education.[employer].GeoDigital/faq/FVX183 (This link is being provided for informational/ educational purposes only.) Blood BLOOD SPECIMEN / Unknown 12/08/2024 11:55 AM CDT 12/08/2024 11:56 AM CDT Nivia Bruno MD SEND OUTS Final Resul t [employer] [place] [address] [employer] [facility] TechnologyOH[facility] [employer] [address], [place] [phone] [address] [address] [place] [address] * TSH (12/08/2024 11:55 AM CDT) [facility] TSH 0.53 0.40 - 4.50 mIU/L [facility]Miguelito Melton Blood BLOOD SPECIMEN / Unknown 12/08/2024 11:55 AM CDT 12/08/2024 11:56 AM CDT Nivia Bruno MD CHEMISTRY Final Resul t [employer] [place] [address] [id number] [place] [address], [facility] DiagnosticsNorth [facility] Health HospitalKing [place] [address] [place] [address] * (ABNORMAL) CBC AND DIFFERENTIAL (12/08/2024 11:55 AM CDT) [facility] WHITE BLOOD CELL COUNT 9.3 3.8 - [...] MD HEMATOLOGY Final Resul t [facility] [address] [facility] [place] [address], [place] [phone] [facility] [address] [facility] [place] [address] * FERRITIN (12/08/2024 11:55 AM CDT) FERRITIN 51 16 - 288 ng/mL [facility]Farley d [place] Blood BLOOD SPECIMEN / Unknown 12/08/2024 11:55 AM CDT 12/08/2024 11:56 AM CDT us Nivia Bruno MD CHEMISTRY Final Resul t [facility] [address] [place] [address], [place] [phone] [facility] [address] [place] [address] * VITAMIN B12 (12/08/2024 11:55 AM CDT) Pathologist [facility] VITAMIN B12 790 200 - 1,100 pg/mL [employer]-Wo od [place] Blood BLOOD SPECIMEN / Unknown 12/08/2024 11:55 AM CDT 12/08/2024 11:56 AM CDT Nivia Bruno MD CHEMISTRY Final Resul t [employer] [facility] [address] [place] [address], [facility] [facility] [address] [place] [address] * (ABNORMAL) COMP METABOLIC PANEL (12/08/2024 11:55 AM CDT) Pathologist [facility] GLUCOSE 101(H) 65 - 99 mg/dL [facility] [employer] [facility]W ood [place] Comment: Fasting reference interval For someone without known diabetes, a glucose value between 100 and 125 mg/dL is consistent with prediabetes and should be confirmed with a follow-up test. UREA NITROGEN (BUN) 20 7 - 25 mg/dL [facility] [place] CREATININE 0.97 0.50 - 1.05 mg/dL [facility] [place] EGFR 65 > OR = 60 mL/min/1. 73m2 [facility] [place] BUN/CREATININE RATIO SEE NOTE: 6 - 22 (calc) [facility] [place] Comment: Not Reported: BUN and Creatinine are within reference range. SODIUM 136 135 - 146 mmol/L [facility] POTASSIUM 4.1 3.5 - 5.3 mmol/L [facility] [place] CHLORIDE 102 98 - 110 mmol/L [facility] [place] CARBON DIOXIDE 23 20 - 32 mmol/L [facility] [place] CALCIUM 9.5 8.6 - 10.4 mg/dL [facility] [place] PROTEIN, TOTAL 7.4 6.1 - 8.1 g/dL [facility] [place] ALBUMIN 4.7 3.6 - 5.1 g/dL [facility] [place] GLOBULIN 2.7 1.9 - 3.7 g/dL (calc) [facility] [place] ALBUMIN/GLOBULIN RATIO 1.7 1.0 - 2.5 (calc) [facility] BILIRUBIN, TOTAL 0.4 0.2 - 1.2 mg/dL [facility] [place] ALKALINE PHOSPHATASE 59 37 - 153 U/L [facility] AST 17 10 - 35 U/L [facility] ALT 14 6 - 29 U/L [facility] [place] Blood BLOOD SPECIMEN / Unknown 12/08/2024 11:55 AM CDT 12/08/2024 11:56 AM CDT us Nivia Bruno MD CHEMISTRY Final Resul t [employer] [facility] [address] [place] [address], [employer] [address] * (ABNORMAL) TRICHOMONAS, CARMELO, AND BACTERIAL VAGINOSIS BY JUAN (12/06/2024 11:08 AM CDT) CARMELO SPECIES Positive(A) Negative 12/07/19 9:11 PM CDT [facility] CARMELO GLABRATA Negative Negative 12/06/2024 9:11 PM CDT [facility] TRICHOMONAS VVA Negative Negative 9:11 PM CDT [facility] BACTERIAL VAGINOSIS Negative Negative 12/06/2024 9:11 PM CDT [facility] Other VAGINAL SWAB / Unknown Non-Blood / Unknown 12/06/2024 11:08 AM CDT 12/06/2024 11:24 AM CDT us Kourtney GUERRERO MICROBIOLOGY Final Result [facility] [address] [place] [address], [place] * XR SPINE CERVICAL 3 VIEWS [...] and C7-T1 levels. Procedure Note Gulshan Lal, DO - 12/01/2024 For Patients: As a result [...] MD @ 12/01/2024 8:51:45 PM (Electronically Signed) Facundo Mijares MD GENERAL [...] factors. LDL-C is now calculated using the Vincenzo-John calculation, which is a validated novel method providing better accuracy than the Friedewald equation in the estimation of LDL-C. Vincenzo SS et al. DAVID. 2013;310(19): 1131-1518 (http://education.[employer].GeoDigital/faq/BBT244) CHOL/HDLC RATIO 2.9 <5.0 (calc) [facility] [...] Nivia Bruno MD CHEMISTRY Final Resul t [employer] [facility] [address] [place] [address], [place] [phone] [facility] [address] [place] [address] * XR MAMMO EVA BILAT DIAG (09/15/2024 [...] Marques MD MAMMO Final Resul t * FRUIT VENDOR THIN PREP PAP SCREEN IMAGED (11/04/2023 3:50 PM CDT) Case Report Gynecologic Cytology Report Case: [id number] Authorizing Provider: Corine Guillaume MD Collected: 11/04/2023 1550 Ordering Location: [facility] Received: 11/06/2023 0926 First Screen: Kathy Stephens Specimen: FRUIT VENDOR ThinPrep Vial Screening, Cervical 11/12/2023 1:05 PM CDT [facility] INTERPRETATION/ RESULT NEGATIVE FOR INTRAEPITHELIAL LESION OR MALIGNANCY (NIL) (none) 11/12/2023 1:05 PM CDT [facility] ENTRMO LABORATORY at 1305 CDT SPECIMEN ADEQUACY Satisfactory for evaluation Endocervical component present 11/12/2023 1:05 PM CDT [facility] HPV REQUEST HPV and PAP 11/12/2023 1:05 PM CDT [facility] Last Pap Date 11/12/2023 1:05 PM CDT [facility] Comment:09/2017 Last Pap Result NIL 1:05 PM CDT [facility] Abnormal Pap or Willow Bx in last 5 years No 11/12/2023 1:05 PM CDT [facility] Menstrual Status Postmenopausal 11/12/2023 1:05 PM CDT [facility] Willow Bx Done Today No 11/12/2023 1:05 PM CDT [facility] Additional Information 11/12/2023 1:05 PM CDT [facility] Comment: Interpreted at [facility] - [address], [place] [address] Automated Review Successful 11/12/2023 1:05 PM CDT [facility] Comment:Specimen processed s uccessfully by automated dexigraph operator device, [email or web address] Imaging System, [facility] ANCILLARY TESTING FRUIT VENDOR HPV Ordered, Please see separate report 11/12/2023 1:05 PM CDT [facility] Note The pap test [...] and malignant lesions. 11/12/2023 1:05 PM CDT [facility] Other (Cervical) 11/04/2023 3:50 PM CDT 11/06/2023 9:26 AM CDT us Corine Guillaume MD PATHOLOGY/CYTOLOGY Final R esult [facility] [address] [place] [address], * (ABNORMAL) XR DXA BONE DENSITY 2 [...] to assess therapeutic efficacy. Ann Jay PA-C [facility] 09/30/2023 Narrative 09/30/2023 1:49 PM CDT For Patients: Results are automatically released to your [facility] (Exent) account once available, in compliance with federal regulations. This means that you may see your results before your provider has had a chance to review them. Please allow 2-3 business days for your provider to comment on the results. XR DXA Bone Mineral Density (BMD) EXAM LOCATION: [facility] [address] [facility] [address] PATIENT NAME: Juliette Brown DATE OF : [...] two scanners are made by the same thermostat machine tender. PROCEDURE: Dual-energy x-ray absorptiometry performed with routine [...] Ceron MD - 01/28/2022 12:02 PM CDT [facility] [address], [address], [place] [address] Patient Name: Juliette Brown Gender: Female Exam Date: 01/28/2022 Visit Number: [id number] Age: 61 Years 9 Months Date of : 1960 Attending MD: Edison Ceron MD Medical Record#: [id number] ----- Procedure: Colonoscopy Indications: Recent history of [...] Bruno MD [facility] [phone] us Edison Ceron MD OTHER Final Resu lt * ANTI HIV 1/2 (06/01/2018 4:02 PM GLUCOSE AND SYRUP WEIGHER) Pathologist [facility] HIV-1/HIV-2 ANTIBODY Non-Reacti ve Non-Reacti ve 06/01/2018 8:08 PM GLUCOSE AND SYRUP WEIGHER [facility] Comment:HIV-1 p24 and HIV-1/ HIV-2 Ab not detected. Blood BLOOD SPECIMEN / Unknown Venipuncture / Unknown 06/01/2018 4:02 PM GLUCOSE AND SYRUP WEIGHER 06/01/2018 4:02 PM GLUCOSE AND SYRUP WEIGHER us Nivia Burno MD SEND OUTS Final Resul t [facility] [address] [place] [address], [place] * ANTI HCV (09/30/2017 5:38 PM CDT) Pathologist [facility] HEPATITIS C ANTIBODY Non-React mathieu Non-React mathieu 10/01/2017 2:41 PM CDT [facility] Comment:Antibodies to HCV no t detected; does not exclude the possibility of exposure to HCV. Blood BLOOD SPECIMEN / Unknown Venipuncture / Unknown 09/30/2017 5:38 PM CDT 09/30/2017 5:38 PM CDT us Kourtney GUERRERO SEND OUTS Final Result [facility] [address] [place] [address], from Last 3 Months or Most Recently Relevant to Health Maintenance Additional Health Concerns Infection Onset Date Last Indicated ESBL 10/14/2024 10/14/2024 [place] [address] MEDICARE PB ONLY [facility] ATTN: [place] [address] MEDICARE PART B HB ONLY MEDICARE PART A HB ONLY [facility] MEDICARE PB ONLY [facility] MEDICARE PART B HB ONLY [facility] ATTN: [place] [address] [place] [address] [facility] MEDICARE PPS Advance Directives Documents on File Type Date Recorded Patient Care Tech Expl anation Healthcare Directive 04/01/2022 022 * [...] 6:43 PM 06/10/2011 6:41 PM Care Teams Atm Manager Relationship Specialty Start Date End Date [place] [address] PCP - General Family Practice 07/01/19 Judie Carreno PharmD [address] [place] [address] [place] [address] Pharmacist Medication Management Pharmacology 05/28/23 05/28/25
--- OUTSIDE RECORDS SUMMARY | 2025-02-05 15:28 | XMS_ITS | Encounter Summary ---
Author Organization [facility] Address [address], [place] [address] Care Team Providers Care Range Aide Name Role Phone Needs Pcp, Assignment Primary Care Provider [phone] [phone] Encounter Details Date Type Department Care Team (Late st Contact Info) Description 07/12/2019 Lab Requisition [facility] [address] [place] [address] Lul Hunter MD [address] [place], [place] [phone] Encounter for surgical aftercare following surgery on [...] BASIC METABOLIC PANEL Routine 07/13/2019 7:00 AM PIECE GOODS CLERK Encounter for surgical aftercare following surgery on the nervous system COMPLETE BLOOD COUNT-NO DIFF Routine 07/13/2019 7:00 AM PIECE GOODS CLERK Encounter for surgical aftercare following surgery on the nervous system documented in this encounter Results * (ABNORMAL) Basic Metabolic Panel (07/13/2019 7:00 AM PIECE GOODS CLERK) Sodium 136 136 - 145 mmol/L 07/13/2019 12:35 PM PIECE GOODS CLERK [facility] Potassium 4.7 3.5 - 5.1 mmol/L 07/13/2019 12:35 PM PIECE GOODS CLERK [facility] Chloride 100 98 - 109 mmol/L 07/13/2019 12:35 PM PIECE GOODS CLERK [facility] CO2 27 20 - 29 mmol/L 07/13/2019 12:35 PM PIECE GOODS CLERK [facility] Anion Gap 9 7 - 16 mmol/L 07/13/2019 12:35 PM PIECE GOODS CLERK [facility] Calcium 9.2 8.4 - 10.4 mg/dL 07/13/2019 12:35 PM PIECE GOODS CLERK [facility] BUN 18 7 - 26 mg/dL 07/13/2019 12:35 PM PIECE GOODS CLERK [facility] Creatinine 0.76 0.55 - 1.02 mg/dL 07/13/2019 12:35 PM PIECE GOODS CLERK [facility] GFR, Estimated >60 >60 mL/min/1.7 3m2 07/13/2019 12:35 PM PIECE GOODS CLERK [facility] GFR, Est If >60 >60 mL/min/1.7 3m2 07/13/2019 12:35 PM PIECE GOODS CLERK [facility] Glucose 105(H) 70 - 100 mg/dL 07/13/2019 12:35 PM PIECE GOODS CLERK [facility] Comment:The given reference range is for the fasting state. Non-fasting reference range for glucose is 70 - 180 mg/dL. Hours Fasting Unknown 07/13/2019 12:35 PM PIECE GOODS CLERK [facility] Blood Venipuncture / Unknown 07/13/2019 7:00 AM PIECE GOODS CLERK 07/13/2019 10:40 AM PIECE GOODS CLERK us Lul Hunter MD LAB_1 Final Result [facility] [address] [place], [place] [address] * (ABNORMAL) Complete Blood Count-No Diff (07/13/2019 7:00 AM PIECE GOODS CLERK) WBC 4.7 3.5 - 10.5 x10(9)/L 07/13/2019 11:17 AM PIECE GOODS CLERK [facility] RBC 3.19(L) 3.90 - 5.03 x10(12)/L 07/13/2019 11:17 AM PIECE GOODS CLERK [facility] Hemoglobin 10.1(L) 12.0 - 15.5 g/dL 07/13/2019 11:17 AM PIECE GOODS CLERK [facility] HCT 31.2(L) 34.9 - 44.5 % 07/13/2019 11:17 AM PIECE GOODS CLERK [facility] MCV 97.8 80.0 - 100.0 fL 07/13/2019 11:17 AM PIECE GOODS CLERK [facility] MCH 31.7 27.6 - 33.3 pg 07/13/2019 11:17 AM PIECE GOODS CLERK [facility] MCHC 32.4 31.5 - 35.2 g/dL 07/13/2019 11:17 AM PIECE GOODS CLERK [facility] RDW 11.7(L) 11.9 - 15.5 % 07/13/2019 11:17 AM PIECE GOODS CLERK [facility] Platelets 221 150 - 450 x10(9)/L 07/13/2019 11:17 AM PIECE GOODS CLERK [facility] Automated NRBC 0 <=0 /100 WBC 07/13/2019 11:17 AM PIECE GOODS CLERK [facility] Blood Venipuncture / Unknown 07/13/2019 7:00 AM PIECE GOODS CLERK 07/13/2019 10:44 AM PIECE GOODS CLERK us Lul Hunter MD LAB_1 Final Result [facility] [address] [place] [address], [facility] documented in this encounter Visit Diagnoses Diagnosis Encounter for surgical aftercare following surgery on the nervous system documented in this encounter Care Teams Range Aide Relationship Specialty Start Date End [place] [address] PCP - General 02/28/21 documented as of this encounter
--- OUTSIDE RECORDS SUMMARY | 2025-02-05 15:28 | XMS_ITS | Encounter Summary ---
Author Organization [employer] Address [address], [place] [address] Care Team Providers Care Mechanical Pencils Assembler Name Role Phone Needs Pcp, Assignment Primary Care Provider [phone] Reason for Visit * Reason Comments Provider Orders Encounter Details Date Type Department Care Team (Late st Contact Info) Description 08/31/2024 Telephone [facility] [address] Infectious Disease [address] [facility] [place], [place] [id number] Alex Issa MD [address] [place] [address] Provider Orders Social History Tobacco [...] 1:06 PM CDT Received outside referral from [facility] on 08/13/2024 for Rash parasites P) [phone] reviewed records and stated: since patient has tested negative for parasites and had no improvement reported after treatment for parasites, No IFD consult indicated at this time documented in this encounter Plan of Treatment Not on file documented as of this encounter Visit Diagnoses Not on filedocumented in this encounter Care Teams Mechanical Pencils Assembler Relationship Specialty Start Date End Date Needs Pcp, [place] [address] PCP - General 02/28/21 documented as of this encounter
--- NOTE | 2025-02-05 16:38 | ED_ITS ---
HPI - General Adult General Chief complaint: Chest Pain Stated complaint: Chest Pains Time Seen by Provider: 02/05/25 16:07 History of Present Illness HPI narrative: This 64-year-old female comes in reporting an episode of rapid heart rate that she wonders if it was supraventricular tachycardia. She did feel some chest tightness at the time but no pain. She also had some mild lightheadedness. She was seen a bit more than 2 weeks ago with similar symptoms and had a full workup including imaging and labs. These all returned with normal results. She did see a supervisor [employer] after getting started with a Zio patch some time in the more recent past. The supervisor [employer] told her just to wear it for 2 days. It did not show any abnormality in her rhythm. She arrives here with normal vital signs and has no symptoms currently. Related Data Home Medications ?Medication ?Instructions ?Recorded ?Confirmed liothyronine 5 mcg tablet 5 mcg PO .B.i.d. 11/21/21 lorazepam 0.5 mg tablet 0.5 mg PO Q12H PRN 12/08/21 01/22/25 melatonin 3 mg capsule 9 mg PO HS 12/08/21 01/22/25 trazodone 50 mg tablet 100 mg PO QHS PRN 01/17/23 0 01/22/25 buspirone 15 mg tablet 15 mg PO BID 03/25/23 cyclosporine 0.05 % eye drops in a drp ophthalmic (eye ) 03/25/23 01/22/25 dropperette lidocaine HCl 2 % mucosal solution PO 03/25/23 5 (Lidocaine Viscous) tretinoin 0.025 % topical cream 1 applic topical QPM 1 05/25/22 01/22/25 valacyclovir 1 gram tablet 1,000 mg PO 3XD 03/25/23 varenicline tartrate 0.03 mg/spray intranasal 03/25/23 01/22/25 metered nasal spray (Tyrvaya) cyclobenzaprine 5 mg tablet 5 mg PO QPM PRN 09/17/23 0 01/22/25 vilazodone 20 mg tablet 20 mg PO DAILY 11/10/2301/10 alirocumab 150 mg/mL subcutaneous mg subcut Q2W 01/22/25 pen injector (Praluent Pen) rosuvastatin 5 mg tablet 5 mg PO DAILY 10/10/2401/22 sumatriptan succinate 25 mg tablet mg PO 10/10/2401/10 Previous Rx's ?Medication ?Instructions ?Recorded Lactobacillus acidophilus 0.5 mg 1 tab PO TIDWM 90 day s #90 tabs 12/10/21 (100 million cell) tablet albuterol sulfate 90 mcg/actuation 2 puff inhalation Q 4-6H PRN 03/05/23 aerosol inhaler shortness of breath or wheez ing #8.5 grams ondansetron HCl 4 mg tablet 4 mg PO Q6H #10 tabs 11/10 hydromorphone 2 mg tablet 2 mg PO Q6H PRN pain #8 tabs 07/21/24 clobetasol 0.05 % topical ointment 1 applic topical BI D PRN itching 08/18/24 #30 grams estradiol 1 mg tablet 0.5 mg (1/2 x 1 mg) PO QDAY #45 08/25/24 tabs estradiol 10 mcg vaginal tablet 10 mcg vaginal 2XW #24 tabs 08/25/24 (Yuvafem) progesterone micronized 100 mg 100 mg PO QHS #90 caps 08/25/24 capsule ketorolac 10 mg tablet 10 mg PO TID 5 days #15 tabs 10/10/24 Allergies Allergy/AdvReac Type Severity Reaction Status Date / Time auranofin Allergy Verified 02/05/25 15:31 cat dander Allergy Verified 02/05/25 15:31 Gadolinium-Containing Allergy Verified 02/05/25 15:31 Contrast Medi gluten Allergy Verified 02/05/25 15:31 gold keratinate Allergy Verified 02/05/25 15:31 gold sodium thiomalate Allergy Verified 02/05/25 15:31 ketamine Allergy Verified 02/05/25 15:31 lactose Allergy Verified 02/05/25 15:31 Opioids - Morphine Analogues Allergy Verified 02/05/25 15:31 goldshots Allergy Severe Anaphylaxis Uncoded 01/22/25 14:00 Review of Systems Status of ROS: Reports: 10 or more systems reviewed and unremarkable except as noted in History and below Narrative: Constitutional: No fevers, no weight gain or loss. Eyes: No discharge. No vision changes. HENT: No congestion, no sore throat, no ear pain. Cardiovascular: No palpitations. Episode of increased heart rate with associated mild lightheadedness and some chest tightness. Respiratory: No shortness of breath, no wheezes, no cough. Gastrointestinal: No abdominal pain, no vomiting, no diarrhea. Genitourinary: No dysuria, no hematuria. Musculoskeletal: Normal range of motion. Skin: No rashes, no pruritis. Neurological: No dizziness, weakness, sensory change, speech change. Endo/Heme/Allergies: No bruising or bleeding. No polydipsia. Pysch: no suicidality, no anxiety, no insomnia. All other systems reviewed and are negative. [facility] Medical History Herpes zoster ?B02.9 - Zoster without complications (ICD-10) Diverticulitis ?K57.92 - Diverticulitis of intestine, part unspecified, without perforation or abscess without bleeding (ICD-10) Closed T12 fracture ?S22.089A - Unspecified fracture of T11-T12 vertebra, initial encounter for closed fracture (ICD-10) History of Clostridioides difficile colitis ?Z86.19 - Personal history of other infectious and parasitic diseases (ICD- 10) History of hypothyroidism ?Z86.39 - Personal history of other endocrine, nutritional and metabolic disease (ICD-10) History of diverticulitis of colon (05/09/11) ?Z87.19 - Personal history of other diseases of the digestive system (ICD-10) History of Clostridioides difficile infection ?Z86.19 - Personal history of other infectious and parasitic diseases (ICD- 10) Abscess of sigmoid colon due to diverticulitis ?K57.20 - Diverticulitis of large intestine with perforation and abscess without bleeding (ICD-10) Osteoporosis ?M81.0 - Age-related osteoporosis without current pathological fracture (ICD- 10) Sigmoid diverticulitis ?K57.32 - Diverticulitis of large intestine without perforation or abscess without bleeding (ICD-10) History of femur fracture ?Z87.81 - Personal history of (healed) traumatic fracture (ICD-10) Insomnia ?G47.00 - Insomnia, unspecified (ICD-10) Anxiety ?F41.9 - Anxiety disorder, unspecified (ICD-10) Sarcoidosis ?D86.9 - Sarcoidosis, unspecified (ICD-10) Hypothyroidism ?E03.9 - Hypothyroidism, unspecified (ICD-10) Sensorineural hearing loss (SNHL) of both ears ?H90.3 - Sensorineural hearing loss, bilateral (ICD-10) Depression ?F32.A - Depression, unspecified (ICD-10) Chronic fatigue syndrome ?R53.82 - Chronic fatigue, unspecified (ICD-10) 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 - Unspecified juvenile rheumatoid arthritis of unspecified site (ICD- 10) Migraines ?G43.909 - Migraine, unspecified, not intractable, without status migrainosus (ICD-10) Diverticulitis of intestine with abscess ?K57.80 - Diverticulitis of intestine, part unspecified, with perforation and abscess without bleeding (ICD-10) Surgical History History of total knee replacement ?Z96.659 - Presence of unspecified artificial knee joint (ICD-10) S/P hammer toe correction ?Z98.890 - Other specified postprocedural states (ICD-10) ?Z87.39 - Personal history of other diseases of the musculoskeletal system and connective tissue (ICD-10) History of repair of rotator cuff ?Z98.890 - Other specified postprocedural states (ICD-10) History of tonsillectomy ?Z90.89 - Acquired absence of other organs (ICD-10) History of total hip arthroplasty ?Z96.649 - Presence of unspecified artificial hip joint (ICD-10) History of bilateral knee arthroplasty ?Z96.653 - Presence of artificial knee joint, bilateral (ICD-10) Family History Father High blood pressure Hyperlipidemia Mother High blood pressure Hyperlipidemia Sister Seizure disorder Social History Narrative: She lives alone in [place]. 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 She does not smoke. She drinks alcohol about once a month. She uses no recreational drugs. She does have a history of chemical dependency. Healthcare power of banking attorney is her sister Denise. Code status is full. Are you following a special diet: Yes (no gluten, lactose intolerent) Highest level of school completed/degree received: Master's degree Smoking Status: Never smoker Do you use any of these nicotine containing products: None Second hand tobacco smoke exposure: No How often do you have a drink containing alcohol: monthly or less AUDIT-C Alcohol total score: 1 Non-prescribed substance use: denies use Caffeine: Yes (coffee 3x weekly) Are you now , , , , never or living with a partner: Social isolation score (0-1 are the most socially isolated patients): 0 Are you currently sexually active: No service: No Exam Narrative: Exam Narrative: Constitutional: Well-developed, well-nourished, no acute distress. HEENT: Normocephalic, atraumatic. Neck: Normal range of motion. Nontender. Supple. Heart: Regular. No murmurs. Normal rate. Intact distal pulses. Lungs: Clear to auscultation. No chest discomfort. No wheezes, rhonchi, or rales. Abdomen: Normal bowel sounds. Nontender. No rebound tenderness. Genitalia: Deferred. Back: No midline tenderness. Normal range of motion. Extremities: Normal range of motion. No injury. Skin: Intact. No rash. Warm. No erythema or pallor. Neurologic: No altered sensation. No weakness. Alert and oriented. Psychiatric: No suicidality. No anxiety or depression. No insomnia. Nursing notes and vitals signs are reviewed. Const: Vital Signs, click to edit/add: Vital Signs - 24 hr 02/05/25 15:29 02/05/25 15:30 02/05/25 15:31 Temperature Pulse Rate 85 78 86 Pulse Rate [Pulse Oximeter] Respiratory Rate Blood Pressure 116/81 Blood Pressure [Le ft Upper Arm] Pulse Oximetry 98 98 96 Oxygen Delivery Me thod 02/05/25 15:32 02/05/25 15:43 02/05/25 15:45 Temperature 96.5 F L Pulse Rate 83 79 Pulse Rate [Pulse Oximeter] 81 Respiratory Rate 16 Blood Pressure 127/79 Blood Pressure [Le ft Upper Arm] 127/79 Pulse Oximetry 98 100 98 Oxygen Delivery Me thod Room Air 02/05/25 16:00 02/05/25 16:05 02/05/25 16:15 Temperature Pulse Rate 79 78 79 Pulse Rate [Pulse Oximeter] Respiratory Rate 12 17 Blood Pressure 118/66 Blood Pressure [Le ft Upper Arm] Pulse Oximetry 98 98 98 Oxygen Delivery Me thod 02/05/25 16:30 02/05/25 16:31 02/05/25 16:45 Temperature Pulse Rate 81 82 79 Pulse Rate [Pulse Oximeter] Respiratory Rate 12 14 11 L Blood Pressure 125/70 Blood Pressure [Le ft Upper Arm] Pulse Oximetry 96 96 99 Oxygen Delivery Me thod Course Vital Signs Vital signs: Initial Vital Signs Pulse Rate 85 02/05/25 15:29 Pulse Oximetry 98 02/05/25 15:29 Vital Signs Pulse Rate 85 02/05/25 15:29 Pulse Oximetry 98 02/05/25 15:29 Temperature 96.5 F L 02/05/25 15:43 Pulse Rate 79 02/05/25 16:45 Respiratory Rate 11 L 02/05/25 16:45 Blood Pressure 125/70 02/05/25 16:31 Pulse Oximetry 99 02/05/25 16:45 Oxygen Delivery Method Room Air 02/05/25 15:43 Medical Decision Making MDM Narrative Medical decision making narrative: This patient comes in reporting an episode of rapid heart rate that she thought might be SVT. She has been seen previously with similar reports and did wear a Zio patch for a couple days. There is no recorded evidence of any cardiac dysrhythmia. She feels back to normal currently. I did review previous records with normal lab and imaging results. EKG today along with lab results all turn in normal findings. Patient is reassured with this. I did arrange for a Zio patch again this time going for 2 weeks. Lab Data Labs: Lab Results 02/05/25 02/05/25 02/05/25 Range/Units 16:38 17:15 18:05 WBC 5.75 (4.50-11.00) K/uL RBC 4.09 (4.00-5.20) m/uL Hgb 13.3 (12.0-16.0) gm/dL Hct 38.4 (33.0-51.0) % MCV 94 (80-100) fL MCH 33 (26-34) pg MCHC 35 (32-36) gm/dL RDW Coeff of Chuck 11.9 (11.5-15.5) % Plt Count 243 (140-440) K/uL Neut % (Auto) 71.3 (42.0-72.0) % Lymph % (Auto) 22.8 (20-44) % [place] % (Auto) 4.7 (0.0-11.0) % Eos % (Auto) 0.5 (0.0-7.0) % Baso % (Auto) 0.5 (0.0-3.0) % Neut # (Auto) 4.10 (1.7-7.0) K/uL Lymph # (Auto) 1.31 (0.90-2.90) K/uL [place] # (Auto) 0.30 (0.00-0.90) K/UL Eos # (Auto) 0.03 (0.00-0.50) K/uL Baso # (Auto) 0.03 (0.00-0.30) K/uL Abs Immat Gran (auto) 0.01 (0.00-0.30) K/uL Imm/Tot Granulo (auto) 0.2 % Sodium 136 (135-149) mmol/L Potassium 3.9 (3.6-5.1) mmol/L Chloride 102 (96-114) mmol/L Carbon Dioxide 24 (20-32) mmol/L Anion Gap 10 (7-15) mEq/L BUN 23 (7-30) mg/dL Creatinine 1.0 (0.5-1.5) mg/dL Estimated Creat Clear 58.61 Estimated GFR 63 ml/min Glucose 101 (60-115) mg/dL Calcium 9.3 (8.4-10.6) mg/dL Magnesium 2.4 (1.5-2.6) mg/dL Urine Color Yellow (Yellow) Urine Appearance Clear (Clear) Urine pH 8.0 (5.0-8.5) Ur Specific Unity 1.015 (1.000-1.030) Urine Protein Negative (Negative) Urine Glucose (UA) Negative (Negative) Urine Ketones 2+ A (Negative) Urine Blood Negative (Negative) Urine Nitrite Negative (Negative) Urine Bilirubin Negative (Negative) Urine Urobilinogen 0.2 (0.2-1.0) Ur Leukocyte Esterase Negative (Negative) Urine RBC 0-2 (0-2) Urine WBC 0-2 (0-5) Ur Squamous Epith Cells Few (None-Few) Urine Bacteria Few A (None) POC Troponin I 0.00 L (0.01-0.04) ng/ml ECG Data Attestation: I personally reviewed and interpreted this ECG as follows: Interpretation: Normal sinus rhythm. Rate is 84 beats per minute. There are no ST or T-wave abnormalities. Discharge Plan Discharge Clinical Impression: Dysrhythmia, cardiac Patient Disposition: Home, Self-Care Condition: Stable Additional Instructions: Where Zio patch in follow-up with primary physician or supervisor [employer]. Return if symptoms are recurrent or worsening. Prescriptions: No Action trazodone 50 mg tablet 100 mg PO QHS PRN Tyrvaya 0.03 mg/spray spray, metered, non-aerosol intranasal Patient Comments: [NO ORIGINAL SIG] cyclosporine 0.05 % dropperette ophthalmic (eye) lidocaine HCl [Lidocaine Viscous] 2 % solution PO tretinoin 0.025 % cream 1 applic topical QPM buspirone 15 mg tablet 15 mg PO BID valacyclovir 1 gram tablet 1,000 mg PO 3XD cyclobenzaprine 5 mg tablet 5 mg PO QPM PRN vilazodone 20 mg tablet 20 mg PO DAILY Praluent Pen 150 mg/mL pen injector subcut Q2W estradiol [Yuvafem] 10 mcg tablet 10 mcg vaginal 2XW Qty: 24 3RF estradiol 1 mg tablet 0.5 mg PO QDAY Qty: 45 3RF Rx Instructions: Take 1/2 tab (0.5 mg) daily. progesterone micronized 100 mg capsule 100 mg PO QHS Qty: 90 3RF albuterol sulfate 90 mcg/actuation HFA aerosol inhaler 2 puff inhalation Q4-6H PRN (Reason: shortness of breath or wheezing) Qty: 8.5 0RF ondansetron HCl 4 mg tablet 4 mg PO Q6H Qty: 10 0RF hydromorphone 2 mg tablet 2 mg PO Q6H PRN (Reason: pain) Qty: 8 0RF liothyronine 5 mcg tablet 5 mcg PO .B.i.d. lorazepam 0.5 mg tablet 0.5 mg PO Q12H PRN melatonin 3 mg capsule 9 mg PO HS Lactobacillus acidophilus 0.5 mg (100 million cell) Tablet 1 tab PO TIDWM 90 Days Qty: 90 0RF sumatriptan succinate 25 mg tablet PO rosuvastatin 5 mg tablet 5 mg PO DAILY ketorolac 10 mg tablet 10 mg PO TID 5 Days Qty: 15 0RF clobetasol 0.05 % ointment 1 applic topical BID PRN (Reason: itching) Qty: 30 2RF Follow Up/Referrals: Nivia Bruno MD [Primary Care Provider, Family Practice] Stand Alone Forms: [facility] Info Instructions
--- OUTSIDE RECORDS SUMMARY | 2025-02-05 17:19 | XMS_ITS | Clinical Summary ---
Author Organization [facility] Address [address] [place] [address] , [address] [place] [address] Phone Care Team Providers Care Medical Manager Name Role Phone 7CareTeamCoordinator, 7CareTeamCoordinator Unava ilable Unavailable Conditions or Problems Problem Name Problem Code Onset Date Status Entry Date Provider Comment Standard Description Annotate Myalgia of auxiliary muscles, head and neck 96204650 (SNOMED CT) 06/27 Active 06/27 Jina Johnson DNP,PATENT [place] P Muscle pain Hemifacial spasm R 02373500 (SNOMED CT) 08/10 Active 08/10 Norberto Miller Jr, MD Hemifacial spasm Facial pain, atypical 40832260 (SNOMED CT) 08/10 Active 08/10 Norberto Miller Jr, MD Atypical facial pain 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), right 25271216 (SNOMED CT) 08/10 Active 08/10 Norberto Miller Jr, MD Arthritis of temporomandibul ar joint Cervical spasm 79105399 (SNOMED CT) 08/10 Active 08/10 Norberto Miller Jr, MD Muscle spasm of head and/or neck Juvenile rheumatoid arthritis 404208396 (SNOMED CT) 08/10 Active 08/10 Norberto Miller [...] limb movement disorder (moderate; 15/hr; most w/arousals) 115426705 (SNOMED CT) 11/01 Inactive 11/03 Norberto Miller Jr, MD Periodic limb movement disorder 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 (ICD-10-CM ) 09/20 Active 09/20 Norberto Miller Jr, MD Sleep disorder, unspecified Fatigue 89615944 (SNOMED CT) 09/20 Active 09/20 Norberto Miller Jr, MD Fatigue Paresthesia of bilateral legs 91984989 (SNOMED CT) 11/10 Active 11/10 Regan Santiago MD Paresthesia Anxiety, generalized F41.1 (ICD-10-CM ) 01/17 Active 01/17 Jesika Diallo PhD Generalized anxiety disorder Restless leg syndrome (PLMS 15/hr) G25.81 (ICD-10-CM ) 09/04 Active 09/04 Norberto Miller Jr, MD Restless legs syndrome Sleep disturbance , nos 31127980 (SNOMED CT) 09/04 Inactive 09/04 Norberto Miller Jr, MD Dyssomnia 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 (ICD-10-CM ) 09/04 Active 09/04 Norberto Miller Jr, MD Insomnia, unspecified Snoring 95455726 (SNOMED CT) 09/04 Active 09/04 Norberto Miller Jr, MD Snoring Restless leg syndrome 71225837 (SNOMED CT) 09/04 Inactive 09/04 Norberto Miller Jr, MD Restless legs syndrome 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 (ICD-10-CM ) 09/04 Active 09/04 Norberto Miller Jr, MD Abnormal level of blood mineral traumatic brain injury, initial encounter S06.309A (ICD-10-CM ) 08/02 Active 08/07 Zuleyma Ly 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, initial encounter Hypothyroid ism 74988580 (SNOMED CT) 08/02 Active 08/07 Zuleyma Ly Hypothyroidism depression 99935977 (SNOMED CT) 08/02 Active 08/07 Zuleyma Ly Depressive disorder Memory problems R41.3 (ICD-10-CM ) 08/02 Active 08/07 Zuleyma Ly Other amnesia Medications Medication Instructions Start Date Stop Date Generic Name NDC Provider CYCLOBENZAPRINE HCL 5 MG TABS Take 1/2-1 tablet by mouth every night at bedtime as directed start with 1/2 tab 11/09 cyclobenzaprine [id number] Isabel Purdy RN CYCLOBENZAPRINE HCL 5 MG TABS TAKE ONE-HALF TO ONE TABLET (2.5-5 MG) BY MOUTH EVERY NIGHT AT BEDTIME DIRECTED. START WITH ONE-HALF TABLET (2.5 MG). cyclobenzaprine 18234703823 Norberto Miller Jr, MD ESCITALOPRAM OXALATE 20 MG TABS 12/10 escitalopram oxalate 40585628447 Norberto Miller Jr, MD LORAZEPAM 0.5 MG TABS 12/10 lorazepam 89581889187 Norberto Miller Jr, MD TRETINOIN 0.025 % CREA 12/10 tretinoin 17143972648 Norberto Miller Jr, MD MELATONIN 10 MG TABS 1 by mouth every night 12/10 melatonin-lemon balm leaf extr 62806388851 Norberto Miller Jr, MD TRIAMCINOLONE ACETONIDE 0.1 % CREA 12/10 triamcinolone acetonide 44808725480 Norberto Miller Jr, MD SUMATRIPTAN SUCCINATE 25 MG TABS 12/10 sumatriptan succinate 25540770021 Norberto Miller Jr, MD BUSPIRONE HCL 15 MG TABS 12/10 buspirone 27293863486 Norberto Miller Jr, MD DIPHENOXYLATE-ATRO PINE 2.5-0.025 MG TABS 12/10 diphenoxylate-atr opine 89984782051 Norberto Miller Jr, MD TYRVAYA 0.03 MG/ACT SOLN 12/10 varenicline 92682945459 Norberto Miller Jr, MD ESCITALOPRAM OXALATE 10 MG TABS 12/10 escitalopram oxalate 42366283287 Norberto Miller Jr, MD LIDOCAINE VISCOUS HCL 2 % SOLN 12/10 lidocaine hcl 77127577946 Norberto Miller Jr, MD LIOTHYRONINE SODIUM 5 MCG TABS 12/10 liothyronine 24988848494 Norberto Miller Jr, MD HYDROMORPHONE HCL 2 MG TABS 12/10 hydromorphone 20025682997 Norberto Miller Jr, MD ROPINIROLE HCL 0.25 MG TABS 12/10 ropinirole 76190797334 Norberto Miller Jr, MD POLYMYXIN B-TRIMETHOPRIM 43374-9.1 UNIT/ML-% SOLN 12/10 polymyxin b sulf-trimethoprim 83236238634 Norberto Miller Jr, MD YUVAFEM 10 MCG TABS 12/10 estradiol 45238796864 Norberto Miller Jr, MD SULFAMETHOXAZOLE-T RIMETHOPRIM 800-160 MG TABS 12/10 sulfamethoxazole- trimethoprim 21466041488 Norberto Miller Jr, MD VALACYCLOVIR HCL 1 GM TABS 12/10 valacyclovir 14774034169 Norberto Miller Jr, MD LIDOCAINE 5 % PTCH lidocaine 92159422179 Norberto Miller Jr, MD TRIAMCINOLONE ACETONIDE 0.1 % PSTE triamcinolone acetonide 81737498997 Norberto Miller Jr, MD PROGESTERONE 100 MG CAPS TAKE ONE CAPSULE BY MOUTH AT BEDTIME* progesterone micronized 08683303566 Norberto Miller Jr, MD ESTRADIOL 1 MG TABS estradiol 14084139493 Norberto Miller Jr, MD DIPHENOXYLATE-ATRO PINE 2.5-0.025 MG TABS diphenoxylate-at r opine 99156194416 Norberto Miller Jr, MD LIOTHYRONINE SODIUM 5 MCG TABS liothyronine 66148350669 Norberto Miller Jr, MD MELOXICAM 15 MG TABS meloxicam 50493012201 Norberto Miller Jr, MD ONDANSETRON HCL 4 MG TABS ondansetron hcl 02183952035 Norberto Miller Jr, MD AMOXICILLIN 500 MG CAPS amoxicillin 25055101109 Norberto Miller Jr, MD HYDROMORPHONE HCL 2 MG TABS hydromorphone 16901300390 Norberto Miller Jr, MD YUVAFEM 10 MCG TABS estradiol 51497659581 Norberto Miller Jr, MD VILAZODONE HCL 20 MG TABS vilazodone 05906285952 Norberto Miller Jr, MD VILAZODONE HCL 10 MG TABS vilazodone 27078486317 Norberto Miller Jr, MD ESCITALOPRAM OXALATE 20 MG TABS escitalopram oxalate 70879824328 Norberto Miller Jr, MD BUSPIRONE HCL 15 MG TABS buspirone 60715886578 Norberto Miller Jr, MD TRAZODONE HCL 50 MG TABS trazodone 68656144711 Norberto Miller Jr, MD PREDNISONE 20 MG TABS prednisone 00090657396 Norberto Miller Jr, MD PROPRANOLOL HCL 20 MG TABS 08/10 propranolol 47536547721 Norberto Miller Jr, MD HYDROMORPHONE HCL 2 MG TABS 12/10 hydromorphone 15737971598 Norberto Miller Jr, MD ROPINIROLE HCL 0.25 MG TABS 11/19 ropinirole 23353544123 Norberto Miller Jr, MD ESCITALOPRAM OXALATE 20 MG TABS 12/10 escitalopram oxalate 64207664534 Norberto Miller Jr, MD TYRVAYA 0.03 MG/ACT SOLN 12/10 varenicline 88820486336 Norberto Miller Jr, MD YUVAFEM 10 MCG TABS 12/10 estradiol 60386859698 Norberto Miller Jr, MD CYCLOBENZAPRINE HCL 5 MG TABS Take 1/2-1 tablet by mouth every night at bedtime as directed start with 1/2 tab 11/19 cyclobenzaprine 35956021351 Kelle Janie YUEN ESCITALOPRAM OXALATE 10 MG TABS 12/23 escitalopram oxalate 36937348339 Norberto Miller Jr, MD DULOXETINE HCL 30 MG CPEP 1 every morning 12/23 duloxetine 42208152996 Norberto Miller Jr, MD BUSPIRONE HCL 5 MG TABS 1 twice a day 12/23 buspirone 37647046121 Norberto Miller Jr, MD MELATONIN 10 MG TABS 1 by mouth every night 12/10 melatonin-lemon balm leaf extr 21906478029 Norberto Miller Jr, MD TRAZODONE HCL 50 MG TABS Prescribed by Family 12/23 TRAZODONE HCL Norberto Miller Jr, MD BUSPIRONE HCL 15 MG TABS 12/10 buspirone 96148869367 Norberto Miller Jr, MD ESCITALOPRAM OXALATE 10 MG TABS 12/10 escitalopram oxalate 71403747483 Norberto Miller Jr, MD LORAZEPAM 0.5 MG TABS 12/10 lorazepam 88454987643 Norberto Miller Jr, MD TRIAMCINOLONE ACETONIDE 0.1 % CREA 12/10 triamcinolone acetonide 69172176768 Norberto Miller Jr, MD SULFAMETHOXAZOLE-T RIMETHOPRIM 800-160 MG TABS 12/10 sulfamethoxazole- trimethoprim 69014221193 Norberto Miller Jr, MD PROPRANOLOL HCL 20 MG TABS 11/19 propranolol 64958160980 Norberto Miller Jr, MD LIOTHYRONINE SODIUM 5 MCG TABS 11/19 liothyronine 29237782854 Norberto Miller Jr, MD POLYMYXIN B-TRIMETHOPRIM 57147-4.1 UNIT/ML-% SOLN 09/17 polymyxin b sulf-trimethoprim 87990600042 Norberto Miller Jr, MD DIPHENOXYLATE-ATRO PINE 2.5-0.025 MG TABS 11/19 diphenoxylate-atr opine 20063117795 Norberto Miller Jr, MD LIDOCAINE VISCOUS HCL 2 % SOLN 12/10 lidocaine hcl 17623386952 Norberto Miller Jr, MD TRETINOIN 0.025 % CREA 11/19 tretinoin 11818191091 Norberto Miller Jr, MD SUMATRIPTAN SUCCINATE 25 MG TABS 12/10 sumatriptan succinate 60294688588 Norberto Miller Jr, MD VALACYCLOVIR HCL 1 GM TABS 12/10 valacyclovir 11806859756 Norberto Miller Jr, MD ESCITALOPRAM OXALATE 10 MG TABS 12/23 escitalopram oxalate 88281414079 Belle Jimenez PA-C MELATONIN 10 MG TABS 1 orally QHS 12/23 MELATONIN 81813671358 Norberto Miller Jr, MD CLOBETASOL PROPIONATE 0.05 % CREA Prescribed by Family SALAZAR 09/20 CLOBETASOL PROPIONATE 19840599600 Norberto Miller Jr, MD BETAMETHASONE VALERATE 0.1 % LOTN Prescribed by Family SALAZAR 09/20 BETAMETHASONE VALERATE 46898375685 Norberto Miller Jr, MD CEFUROXIME AXETIL 500 MG TABS Prescribed by Family SALAZAR 09/20 CEFUROXIME AXETIL 30622735529 Norberto Miller Jr, MD ARMOUR THYROID 30 MG TABS Prescribed by Family SALAZAR 09/20 THYROID 77045747343 Norberto Miller Jr, MD SERTRALINE HCL 100 MG TABS Prescribed by Family SALAZAR 09/20 SERTRALINE HCL 65290563248 Norberto Miller Jr, MD WELLBUTRIN XL 150 MG [id number] Prescribed by Family SALAZAR 09/20 BUPROPION HCL 39446952333 Norberto Miller Jr, MD DULOXETINE HCL 30 MG CPEP 1 QAM 12/23 DULOXETINE HCL 96707450351 Norberto Miller Jr, MD BUSPIRONE HCL 5 MG TABS 1 BID 12/23 BUSPIRONE HCL 06534003181 Norberto Miller Jr, MD GABAPENTIN 300 MG CAPS Prescribed by Family SALAZAR GABAPENTIN 10788078708 Norberto Miller Jr, MD CEFUROXIME AXETIL 500 MG TABS Prescribed by Family SALAZAR 08/24 CEFUROXIME AXETIL 56075981977 Zuleyma Ly ARMOUR THYROID 30 MG TABS Prescribed by Family SALAZAR 09/20 THYROID 11880553616 Zuleyma Ly GABAPENTIN 300 MG CAPS Prescribed by Family SALAZAR 11/19 GABAPENTIN 62316077152 Zuleyma Ly SERTRALINE HCL 100 MG TABS Prescribed by Family SALAZAR 09/20 SERTRALINE HCL 52449119318 Zuleyma Ly WELLBUTRIN XL 150 MG [id number] Prescribed by Family SALAZAR 09/20 BUPROPION HCL 91325522670 Zuleyma Ly TRAZODONE HCL 50 MG TABS Prescribed by Family SALAZAR 12/23 TRAZODONE HCL 70737846066 Zuleyma Ly BETAMETHASONE VALERATE 0.1 % LOTN Prescribed by Family SALAZAR 11/19 BETAMETHASONE VALERATE 84685397962 Zuleyma Ly CLOBETASOL PROPIONATE 0.05 % CREA Prescribed by Family SALAZAR 08/24 CLOBETASOL PROPIONATE 94361667927 Zuleyma Ly Medications Administered No information available. [...] Appointment 03:30 PM Kelle soto PA-C, [address], [address], [place], [address], Referral Dental Device Re ferral Pending order [...] Procedures Code Procedure Name Date Entry Date 47836/75141/94199&53 Occipital Nerve Blo ck and Trigger Point Injections CPT-64359 Trigger point inj (3+ musc) CPT-J1100 Dexamethasone -- 10 mg 04/26 ORDERS Follow up [facility] telemedicine 2 ORDERS Dental Device Referral 12/10 ORDERS Sleep Hygiene Tips Handout 2 ORDERS Insomnia Handout ORDERS Patient Instructions ORDERS Patient Instructions ORDERS Patient Instructions SCT-[id number] Other Referral ORDERS Instructions for Staff 09/02 ORDERS Follow up Sleep [facility] telemedicine ORDERS Patient Instructions CPT-15456 Trigger point inj (3+ musc) CPT-J1100 Dexamethasone -- 10 mg 08/10 [id number] Other Radiology 05772/53406/66338&53 Occipital Nerve Blo ck and Trigger Point Injections ORDERS Follow up Extended telemedicine 1 ORDERS Patient Instructions SCT-[id number] Other Referral SCT-562442767 Psychiatry Referral ORDERS Pain Clinic ORDERS Insomnia Handout ORDERS Sleep Hygiene Tips Handout 2 ORDERS Patient Instructions CPT-96602 PSG, 4+ parameters w / tech - 6yrs or older (04924) ORDERS Vitamin B12 ORDERS Vitamin D 25 Hydroxy ORDERS Patient Instructions SCT-[id number] Other Referral SCT-048220500 Psychology Referral ORDERS Instructions for Staff 11/28 ORDERS Lyme Total Ab w/Refl ex (reflex to Western Blot) ORDERS TSH ORDERS 2 weeks Actigraphy W atch w/ Sleep Journals (Call Sleep Lab) ORDERS Ferritin Serum ORDERS Overnight PSG - Sleep Study Overnight 07/17/19 ORDERS Telemedicine Follow up 11/08 ORDERS Ferritin Serum SCT-[id number] Documentation of current medicatio ns ORDERS Other Handout ORDERS Patient Instructions ORDERS Patient Instructions ORDERS Instructions for Staff 11/08 ORDERS Telemedicine Follow up 09/20 CPT-82454 PSG, 4+ parameters w / tech - 6yrs or older (60898) ORDERS Sleep Study - [facility] 2 [facility]-[id number] Documentation of current medicatio ns ORDERS T4 SCT-883824582 Other Referral ORDERS Lyme Total Ab w/Refl [...] TSH ORDERS Vitamin B12 ORDERS T3 Free CPT-84815 Nerve Conduction 7-8 studies CPT-52626 EMG with NCS (5+ muscles) - 1 limb 11/10 SCT-[id number] Documentation of current medicatio ns ORDERS Ferritin Serum ORDERS Patient Instructions ORDERS Other Test ORDERS Follow up ORDERS Vitamin B12 CPT-08447 Neuropsych assmnt w/ prov 4 hr CPT-5853968 Neuropsych assmnt w/ tech 3 hr ORDERS Follow up ORDERS Patient Instructions SCT-[id number] Documentation of current medicatio ns ORDERS Follow up ORDERS Patient Instructions SCT-393054567 Other Test CPT-95883 PSG, 4+ parameters w / tech - 6yrs or older (43287) CPT-75692 MRI Brain W/O SCT-[id number] Documentation of current medicatio ns SCT-142049958 Other Test SCT-[id number] Documentation of current medicatio ns ORDERS Ferritin Serum SCT-758663454 Other Referral ORDERS Follow up SCT-848637226 Other Test SCT-472014690 Other Referral [facility]-[id number] Documentation of current medicatio ns Vital Signs [...]
--- OUTSIDE RECORDS SUMMARY | 2025-02-05 17:19 | XMS_ITS | CCD ---
Author Name Interface, [id number] lity Address [address] [place] [address] Oncology Address [address] [place] [address] Reason for Visit Social History
--- OUTSIDE RECORDS SUMMARY | 2025-02-05 17:19 | XMS_ITS | CCD ---
Author Name Interface, [id number] lity Address [address] [place] [address] Oncology Address [address] [place] [address] Reason for Visit Social History Date Name Value 01/08/2025 Sex Female
--- OUTSIDE RECORDS SUMMARY | 2025-02-05 17:19 | XMS_ITS | Data Portability ---
Author Organization [facility] Address [address] [place] [address] Assessment No assessment recorded. Plan of Treatment Reminders Order Date Submit Date Provider Last Modified By Organization Details Last Modified Time Details Appointments None recorded. Lab urinalysi s, dipstick 2023 024 abajema [facility], [address], [place], [address], 4 13:07:01 Referral pelvic floor therapy referral 2023 024 [facility], [address], [place], [address], 4 08:14:59 Procedures None recorded. Surgeries None recorded. Imaging None recorded. Medication Orders None recorded. Patient TargetsNo targets recorded. Patient InstructionsNo instructions recorded. Reason for Referral Pelvic Floor Therapy Referra l for Urgent desire to urinate Referring Physician: Nancy Troncoso, Urology, Encounter Date: 06/17/2023 Results Created Date Observation Date Name Description Value Unit Range Abnormal Flag Note LastModifiedBy Organization Detail LastModifiedTime 06/17/19 24 06/17/2023 urina lysis , dipst ick Color-Status Yellow Not Available [facility] [address], [place], [address], 06/17/2023 12:42:43 06/17/19 24 06/17/2023 urina lysis , dipst ick Clarity-Stat us Clear Not Available [facility] [address], [place], [address], 06/17/2023 12:42:43 06/17/19 24 06/17/2023 urina lysis , dipst ick Glucose-Stat us Negati ve Not Available [facility] [address], [place], [address], 06/17/2023 12:42:43 06/17/19 24 06/17/2023 urina lysis , dipst ick Bilirubin-St atus Negati ve Not Available [facility] [address], [place], [address], 06/17/2023 12:42:43 06/17/19 24 06/17/2023 urina lysis , dipst ick Ketones-Stat us Negati ve Not Available [facility] [address], [place], [address], 06/17/2023 12:42:43 06/17/19 24 06/17/2023 urina lysis , dipst ick Sp [place]-Stat us 1.020 Not Available [facility] [address], [place], [address], 06/17/2023 12:42:43 06/17/19 24 06/17/2023 urina lysis , dipst ick pH-Status 5.5 Not Available [facility] [address], [place], [address], 06/17/2023 12:42:43 06/17/19 24 06/17/2023 urina lysis , dipst ick Urobilinogen -Status 0.2 Not Available [facility] [address], [place], [address], 06/17/2023 12:42:43 06/17/19 24 06/17/2023 urina lysis , dipst ick Nitrates-Sta tus negati ve Not Available [facility] [address], [place], [address], 06/17/2023 12:42:43 06/17/19 24 06/17/2023 urina lysis , dipst ick Blood-Status Negati ve Not Available [facility] [address], [place], [address], 06/17/2023 12:42:43 06/17/19 24 06/17/2023 urina lysis , dipst ick Leuko-Status Trace Not Available [facility] [address], [place], [address], 06/17/2023 12:42:43 06/17/19 24 06/17/2023 urina lysis , dipst ick Specimen Type Voided Not Available [facility] [address], [place], [address], 06/17/2023 12:42:43 06/17/19 24 06/17/2023 urina lysis , dipst ick Performed by Nelli Al RN Not Available [facility] [address], [place], [address], 06/17/2023 12:42:43 Result Notes None recorded. Procedures Surgical History Date Name Laterality Status Provider Name and Address Organization Details Recorded Time 06/17/19 24 CystoscopyFemale completed David Rowland PA-C [address] [place] [address],[address], [address], [facility] 06/17/2023 13:01:47 06/17/19 24 Bladder Scan completed Nelli Al [facility] 06/17/2023 12:47:55 Imaging Results None recorded. Procedure Notes None recorded. Medical Equipment None Reported. Allergies Allergen ID Allergen Name Allergen Category Reaction Reaction Severity Criticality Documentation Date Start Date Code Code System Note Provider Name and Address Organization Details Recorded Time 831960 auranofin medicatio n Not available Not available Not available 06/17/2023 1227 RxNorm Nelli silva [facility] 4 12:24:03 798217 cat dander environme nt Not available Not available Not available 06/17/2023 Nelli silva [facility] 4 12:24:08 330183 Product containin g gadoliniu m and/or gadoliniu m compound (product) medicatio n Not available Not available Not available 06/17/2023 32189 3008 SNOMED Nelli silva [facility] 4 12:24:19 529410 wheat gluten extract food Not available Not available Not available 06/17/2023 51243 81 [facility] 12:24:26 490098 gold keratinat e Not available Not available Not available Not available 06/17/2023 98024 [facility] 12:24:36 182192 Substance with morphinan structure and opioid receptor agonist mechanism of action (substanc e) medicatio n Not available Not available Not available 06/17/2023 06981 9000 [facility]ED [facility] 12:24:43 Medications Name Sig Start [...] Updated DateTime 06/17/2023 172.72 cm 20.4 kg/m2 08749.38 g Nelli Al [facility] 06/17/2023 12:26:06 Social History None recorded. Functional Status None recorded. Mental Status None recorded. Family History Nothing Reported. Medical History No medical history recorded. Gynecological HistoryNo gynecological history recorded. Obstetrics History GPAL:G 0 P 0 0 0 0 Past Encounters Encounter ID Performer Location Encounter Start Date Encounter Closed Date Diagnosis/Indication Diagnosis SNOMED-CT Code Diagnosis ICD10 Code Diagnosis IMO Codes Diagnosis Note [id number] Nancy Troncoso MD [facility] [address] [place] [address] 06/17/2023 11:59:35 06/18/2023 10:35:23 Urgent desire to urinate 45330481 R39.15 I went over treatment options for OAB including diet modificati on, biofeedbac k, medication s. We woudl start with diet modificati on and PT for incontinen ce. She has concerns about side effects of the medication s Recurrent urinary tract infection 356586201 N39.0 Last UTI was in the fall 2022; treat as they happen I stressed importance of obtaining UC at the time of UTI symptoms only to guide the correct Abx choice. Vaginal dryness 15899182 N89.8 continue clobetasol and estrogen vaginashe is following at [facility] for her lichen sclerosis Health Concerns Section Related Observation LastModified by Organization Detai ls LastModified Time None Recorded Concern Status LastModified by Organization Details LastModified Time None Recorded Advance Directives Directive None Recorded Payers Insurance Date Sequence Insurance Name Policy Number Policy Duval Covered Member ID Duval Member ID Guarantor Name 06/24/2023 2 [place] [id number] Juliette Brown [id number] Juliette Brown 06/14/2023 1 [place] [employer] Juliette Brown [id number] Juliette Brown Notes Date Note Type [...] sclerosis, no POPCysto: Normal Nancy Troncoso MD [address] [place] [address],[address], [place], [address], [facility] 06/17/2023 13:59:27 OBGyn Episode No OBEpisode recorded.
[2025-02-05 17:24] LABS: Hematocrit* 38.4 % (33.0-51.0); Hemoglobin* 13.3 gm/dL (12.0-16.0); Immature Granulocytes Abs Auto 0.01 K/uL (0.00-0.30); Immature Granulocytes Pct Auto 0.2 %; Lymphocytes Absolute Auto 1.31 K/uL (0.90-2.90); Mean Corpuscular HGB Conc 35 gm/dL (32-36); Mean Corpuscular Hemoglobin 33 pg (26-34); Mean Corpuscular Volume 94 fL (80-100); RDW Coefficient of Variation % 11.9 % (11.5-15.5); Red Blood Count* 4.09 m/uL (4.00-5.20); White Blood Count* 5.75 K/uL (4.50-11.00)
[2025-02-05 17:25] LABS: Troponin, Point-of-Care* 0.00 ng/ml (0.01-0.04)
[2025-02-05 17:27] LABS: Slide Review Reflex No
[2025-02-05 17:37] LABS: Chloride* 102 mmol/L (96-114); Sodium* 136 mmol/L (135-149)
[2025-02-05 17:38] LABS: Potassium* 3.9 mmol/L (3.6-5.1)
[2025-02-05 17:40] LABS: Anion Gap 10 mEq/L (7-15); Blood Urea Nitrogen* 23 mg/dL (7-30); Carbon Dioxide* 24 mmol/L (20-32); Creatinine* 1.0 mg/dL (0.5-1.5); Est. Creatinine Clearance* 58.61; Estimated Glomerular Filt Rate 63 ml/min
[2025-02-05 17:41] LABS: Calcium* 9.3 mg/dL (8.4-10.6); Glucose* 101 mg/dL (60-115)
[2025-02-05 18:15] LABS: Appearance Urine Clear (Clear)
== END 2025-02-05 19:27 | disposition home or self-care (01) ==
PROVIDERS: Emergency Provider Emergency Medicine Emergency Medical Services; PCP Family Medicine
DX: I49.9 Cardiac arrhythmia, unspecified (principal)
CPT/HCPCS: 36415; 80048; 81001; 83735; 84484; 85025; 87086; 93005; 93246; 99284

== ENCOUNTER 2025-02-14 14:41 | Outpatient (CLI) | payer MEDICARE, BC, SELFPAY | END 2025-02-14 14:42 | disposition home or self-care (01) | LOC: US 14:43 | PROVIDERS: PCP Family Medicine; Visit Provider Internal Medicine | DX: R60.1 Generalized edema (principal); I87.2 Venous insufficiency (chronic) (peripheral) | CPT/HCPCS: 93970 ==

== ENCOUNTER 2025-04-01 14:02 | Outpatient (CLI) | payer MEDICARE, BC, SELFPAY | END 2025-04-01 14:03 | disposition home or self-care (01) | LOC: INJ CL 14:03 | PROVIDERS: PCP Family Medicine; Visit Provider Family Medicine | DX: M54.16 Radiculopathy, lumbar region (principal); M51.369 Other intervertebral disc degeneration, lumbar region without mention of lumbar back pain or lower extremity pain | CPT/HCPCS: 62323; Q9966 ==